=== PATIENT | female | born 1990 | race Caucasian/White ===

== ENCOUNTER 2018-11-03 06:30 | Emergency (ER) | payer SELFPAY ==
[2018-11-03] MEDS ORDERED: DEXAMETHASONE 10 MG/ML VIAL ONE (07:05)
[2018-11-03] MEDS ORDERED: KETOROLAC 30 MG/ML INJ ONE (07:06)
[2018-11-03] MEDS ORDERED: NA CHLORIDE 0.9% 1,000 ML ONE (07:06)
[2018-11-03] MEDS ORDERED: ONDANSETRON 4 MG/2 ML VIAL ONE (07:07)
--- NOTE | 2018-11-03 07:38 | RAD REPORT ---
EXAM DESCRIPTION: CT - Head Brain Wo Cont - 11/03/2018 7:04 am CLINICAL HISTORY: Headache, numbness and weakness, left-sided facial tingling COMPARISON: None. TECHNIQUE: Axial 5 mm thick images of the head were obtained without IV contrast. All CT scans are performed using dose optimization technique as appropriate and may include automated exposure control or mA/KV adjustment according to patient size. FINDINGS: No intracranial hemorrhage, mass, edema or shift of mid-line structures. No acute infarcti on changes seen. No abnormal extra-axial fluid collections. Ventricles are normal. Mastoid air cells and visualized portions of the paranasal sinuses are clear. No acute bony findings. IMPRESSION: Negative non-contrast CT head examination.
--- NOTE | 2018-11-03 08:12 | EDPHYS ---
Physician Documentation [facility] Name: Judith Voss Age: 27 yrs Sex: Female : 1990 Arrival Date: 11/03/2018 Time: 06:32 Bed 7 Private MD: ED Physician Hermilo Manuel HPI: 11/03 06:50 This 27 yrs old Female presents to ER via Ambulatory with complaints of pm1 Headache, L Side Facial Numbness and pain. 06:50 The patient complains of pain to the forehead, left ear and left religious. The patient pm1 describes the headache as aching, constant. Onset: The symptoms/episode began/occurred last night, at 21:20. Associated signs and symptoms: Pertinent positives: nausea, Photophobia Pertinent negatives: vomiting. Severity of symptoms: in the emergency department the pain is actually worse. Headache History: Other similar to prior migraines. The symptoms are alleviated by Darkened room, quiet, the symptoms are aggravated by lights, noise. The patient has experienced similar episodes in the past, multiple times. The patient has not recently seen a physician. Patient with her typical migraine headache. She reports pain to forehead and around left ear. Reports small area of numbness to left religious between area of palpable pain between forehead and left ear. 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 - Social history:: Smoking status: Patient/guardian denies using tobacco, Patient/guardian denies using alcohol, street drugs. - Ebola Screening: : No symptoms or risks identified at this time. ROS: 06:50 Constitutional: Negative for fever, chills, and weight loss, Eyes: Negative for injury, pm1 pain, redness, and discharge, ENT: Negative for injury, pain, and discharge, Neck: Negative for injury, pain, and swelling, Cardiovascular: Negative for chest pain, palpitations, and edema, Respiratory: Negative for shortness of breath, cough, wheezing, and pleuritic chest pain, Abdomen/GI: Negative for abdominal pain, nausea, vomiting, diarrhea, and constipation, Back: Negative for injury and pain, : Negative for injury, bleeding, discharge, and swelling, MS/Extremity: Negative for injury and deformity, Skin: Negative for injury, rash, and discoloration. 06:50 Neuro: Positive for headache, Negative for altered mental status, dizziness, syncope, near syncope, weakness. Exam: 06:50 Constitutional: This is a well developed, well nourished patient who is awake, alert, pm1 and in no acute distress. 06:50 Eyes: Pupils equal round and reactive to light, extra-ocular motions intact. Lids and lashes normal. Conjunctiva and sclera are non-icteric and not injected. Cornea within normal limits. Periorbital areas with no swelling, redness, or edema. ENT: Nares patent. No nasal discharge, no septal abnormalities noted. Tympanic membranes are normal and external auditory canals are clear. Oropharynx with no redness, swelling, or masses, exudates, or evidence of obstruction, uvula midline. Mucous membranes moist. Neck: Trachea midline, no thyromegaly or masses palpated, and no cervical lymphadenopathy. Supple, full range of motion without nuchal rigidity, or vertebral point tenderness. No Meningismus. Chest/axilla: Normal chest wall appearance and motion. Nontender with no deformity. No lesions are appreciated. Cardiovascular: Regular rate and rhythm with a normal S1 and S2. No gallops, murmurs, or rubs. Normal PMI, no JVD. No pulse deficits. Respiratory: Lungs have equal breath sounds bilaterally, clear to auscultation and percussion. No rales, rhonchi or wheezes noted. No increased work of breathing, no retractions or nasal flaring. Abdomen/GI: Soft, non-tender, with normal bowel sounds. No distension or tympany. No guarding or rebound. No evidence of tenderness throughout. Back: No spinal tenderness. No costovertebral tenderness. Full range of motion. Skin: Warm, dry with normal turgor. Normal color with no rashes, no lesions, and no evidence of cellulitis. MS/ Extremity: Pulses equal, no cyanosis. Neurovascular intact. Full, normal range of motion. 06:50 Head/face: Noted is no obvious of injury or deformity except tenderness, that is mild, of the forehead, left religious, and around left ear. 06:50 Neuro: Orientation: is normal, Mentation: is normal, Memory: is normal, Cranial nerves: CN II- XII are normal as tested, Cerebellar function: normal finger to nose testing, heel to alonzo testing is normal, Motor: moves all fours, strength is normal, strength is 5/5 in all extremities, Sensation: is normal, no obvious gross deficits, Gait: is steady, at a normal pace, without difficulty. Vital Signs: 06:45 BP 125 / 90; Pulse 78; Resp 16 S; Temp 97.9(O); Pulse Ox 98% on R/A; Weight 77.56 kg bb (R); Height 5 ft. 2 in. (157.48 cm) (R); Pain 10/10; 08:10 BP 124 / 86; Pulse 77; Resp 18; Pulse Ox 98% on R/A; la1 06:45 Body Mass Index 31.28 (77.56 kg, 157.48 cm) bb MDM: 06:46 Patient medically screened. pm1 06:46 Data reviewed: vital signs. pm1 07:45 Data interpreted: Pulse oximetry: on room air is 98 %. Interpretation: normal. pm1 08:10 Counseling: I had a detailed discussion with the patient and/or guardian regarding: the pm1 historical points, exam findings, and any diagnostic results supporting the discharge/admit diagnosis, radiology results, the need for outpatient follow up, for definitive care, a neurologist, to return to the emergency department if symptoms worsen or persist or if there are any questions or concerns that arise at home. 11/03 06:50 Order name: CT Head Brain wo Cont pm1 11/03 07:38 Order name: CT; Complete Time: 07:45 EDMS 11/03 06:50 Order name: IV Saline Lock; Complete Time: 06:53 pm1 Administered Medications: 07:14 Drug: NS 0.9% 1000 ml Route: IV; Rate: 1000 ml; Site: right antecubital; la1 08:11 Follow up: IV Status: Completed infusion la1 07:15 Drug: TORadol 30 mg Route: IVP; Site: right antecubital; la1 08:11 Follow up: Response: No adverse reaction; Pain is decreased la1 07:15 Drug: Zofran 4 mg Route: IVP; Site: right antecubital; la1 08:11 Follow up: Response: No adverse reaction la1 07:15 Drug: Decadron - Dexamethasone 10 mg Route: IVP; Site: right antecubital; la1 08:12 Follow up: Response: No adverse reaction la1 08:23 Drug: Tylenol #3 (300 mg-30 mg) 1 tablet Route: PO; la1 08:23 Follow up: Response: Medication administered at discharge. la1 Disposition: 11/03/18 08:11 Discharged to Home. Impression: Migraine. - Condition is Stable. - Discharge Instructions: Migraine Headache. - Medication Reconciliation Form, Thank You Letter form. - Follow up: Emergency Department; When: As needed; Reason: Worsening of condition. Follow up: Private Physician; When: 2 - 3 days; Reason: Recheck today's complaints, Continuance of care, Re-evaluation by your physician. - Problem is new. - Symptoms have improved. Signatures: Dispatcher [employer] EDMS Lesa Marcus RN RN bb Walt Chen RN RN la1 Alonso Barron, CRISTOFER SECURITY SITE SUPERVISOR pm1 Crystal Bravo RN RN ea Corrections: (The following items were deleted from the chart) 08:25 08:11 11/03/2018 08:11 Discharged to Home. Impression: Migraine. Condition is Stable. la1 Forms are Medication Reconciliation Form, Thank You Letter, Antibiotic Education, Prescription Opioid Use. Follow up: Emergency Department; When: As needed; Reason: Worsening of condition. Follow up: Private Physician; When: 2 - 3 days; Reason: Recheck today's complaints, Continuance of care, Re-evaluation by your physician. Problem is new. Symptoms have improved. pm1
--- NOTE | 2018-11-03 08:12 | ER ---
Nurse's Notes [facility] Name: Judith Voss Age: 27 yrs Sex: Female : 1990 Arrival Date: 11/03/2018 Time: 06:32 Bed 7 Private MD: Diagnosis: Migraine Presentation: 11/03 06:42 Presenting complaint: Patient states: she started having a migraine last night at approx 2120 she took tylenol but still has the migraine in the frontal area with numbness and tingling to the left side of her face she also feels dizzy like the room is moving pt ambulated with steady gait to bed. Transition of care: patient was not received from another setting of care. Onset of symptoms was November 02, 2018 at 21:20. Risk Assessment: Do you want to hurt yourself or someone else? Patient reports no desire to harm self or others. Initial Sepsis Screen: Does the patient meet any 2 criteria? No. Patient's initial sepsis screen is negative. Does the patient have a suspected source of infection? No. Patient's initial sepsis screen is negative. Care prior to arrival: None. 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 - Social history:: Smoking status: Patient/guardian denies using tobacco, Patient/guardian denies using alcohol, street drugs. - Ebola Screening: : No symptoms or risks identified at this time. Screenin:51 Abuse screen: Denies threats or abuse. Nutritional screening: No deficits noted. ea Tuberculosis screening: No symptoms or risk factors identified. Fall Risk IV access (20 points). Assessment: 06:49 General: Appears uncomfortable, Behavior is calm, cooperative, appropriate for age. ea Pain: Complains of pain in left side of head. Neuro: Level of Consciousness is awake, alert, obeys commands, Oriented to person, place, time, situation. Neuro: Reports dizziness. Cardiovascular: Patient's skin is warm and dry. Respiratory: Airway is patent Respiratory effort is even, unlabored, Respiratory pattern is regular, symmetrical. Derm: Skin is pink, warm \T\ dry. Musculoskeletal: Circulation, motion, and sensation intact. 08:10 Reassessment: Patient appears in no apparent distress at this time. No changes from la1 previously documented assessment. Patient and/or family updated on plan of care and expected duration. Pain level reassessed. Vital Signs: 06:45 BP 125 / 90; Pulse 78; Resp 16 S; Temp 97.9(O); Pulse Ox 98% on R/A; Weight 77.56 kg bb (R); Height 5 ft. 2 in. (157.48 cm) (R); Pain 10/10; 08:10 BP 124 / 86; Pulse 77; Resp 18; Pulse Ox 98% on R/A; la1 06:45 Body Mass Index 31.28 (77.56 kg, 157.48 cm) ED Course: 06:32 Patient arrived in ED. ds1 06:37 Alonso Barron NP is PHCP. pm1 06:37 Hermilo Manuel MD is Attending Physician. pm1 06:43 Triage completed. bb 06:45 Arm band placed on Patient placed in an exam room, on a stretcher, on pulse oximetry. bb 06:49 Inserted saline lock: 22 gauge in right antecubital area, using aseptic technique. ea 06:51 Patient has correct armband on for positive identification. Bed in low position. Call ea light in reach. 07:04 CT completed. Patient tolerated procedure well. Patient moved back from CT. bq 07:14 Walt Chen, RN is Primary Nurse. la1 08:23 No provider procedures requiring assistance completed. IV discontinued, intact, la1 bleeding controlled, No redness/swelling at site. Pressure dressing applied. Administered Medications: 07:14 Drug: NS 0.9% 1000 ml Route: IV; Rate: 1000 ml; Site: right antecubital; la1 08:11 Follow up: IV Status: Completed infusion la1 07:15 Drug: TORadol 30 mg Route: IVP; Site: right antecubital; la1 08:11 Follow up: Response: No adverse reaction; Pain is decreased la1 07:15 Drug: Zofran 4 mg Route: IVP; Site: right antecubital; la1 08:11 Follow up: Response: No adverse reaction la1 07:15 Drug: Decadron - Dexamethasone 10 mg Route: IVP; Site: right antecubital; la1 08:12 Follow up: Response: No adverse reaction la1 08:23 Drug: Tylenol #3 (300 mg-30 mg) 1 tablet Route: PO; la1 08:23 Follow up: Response: Medication administered at discharge. la1 Outcome: 08:11 Discharge ordered by . pm1 08:24 Discharged to home ambulatory. la1 08:24 Condition: stable 08:24 Discharge instructions given to patient, Instructed on discharge instructions, follow up and referral plans. medication usage, Demonstrated understanding of instructions, follow-up care, medications. 08:25 Patient left the ED. la1 Signatures: Diann Moser Demi ds1 Lesa Marcus RN RN bb Walt Chen RN RN la1 Alonso Barron, CRISTOFER COUNTING MACHINE OPERATOR pm1 Crystal Bravo RN RN ea
[2018-11-03] MEDS ORDERED: CODEINE 30MG/APAP 300MG TAB ONE (08:26)
== END 2018-11-03 08:25 | disposition home or self-care (01) ==
LOC: ER 06:30
DX: G43.909 Migraine, unspecified, not intractable, without status migrainosus (principal); F31.9 Bipolar disorder, unspecified; F41.9 Anxiety disorder, unspecified
CPT/HCPCS: 70450; J1100; J2405; J7030

== ENCOUNTER 2018-12-11 03:12 | Emergency (ER) | payer SELFPAY ==
[2018-12-11] MEDS ORDERED: KETOROLAC 30 MG/ML INJ ONE (04:02)
--- NOTE | 2018-12-11 04:29 | ER ---
Nurse's Notes [facility] Name: Judith Voss Age: 28 yrs Sex: Female : 1990 Arrival Date: 12/11/2018 Time: 03:14 Bed 19 Private MD: Diagnosis: Viral syndrome Presentation: 12/11 03:20 Presenting complaint: Patient states: pt states she has flu-like symptoms with a runny bb nose, body aches, headache and sore throat x 2 days she last took tylenol 1000 mg at 0100 but it is not really helping. Transition of care: patient was not received from another setting of care. Onset of symptoms was December 09, 2018. Risk Assessment: Do you want to hurt yourself or someone else? Patient reports no desire to harm self or others. Initial Sepsis Screen: Does the patient meet any 2 criteria? No. Patient's initial sepsis screen is negative. Does the patient have a suspected source of infection? No. Patient's initial sepsis screen is negative. Care prior to arrival: None. 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 - Social history:: Smoking status: Patient/guardian denies using tobacco, Patient/guardian denies using alcohol, street drugs. - Ebola Screening: : No symptoms or risks identified at this time. Screenin:24 Abuse screen: Denies threats or abuse. Denies injuries from another. Nutritional rr5 screening: No deficits noted. Tuberculosis screening: No symptoms or risk factors identified. Fall Risk None identified. Assessment: 03:25 General: Appears in no apparent distress. uncomfortable, Behavior is calm, cooperative, rr5 appropriate for age. Pain: Complains of pain in body Pain does not radiate. Pain currently is 7 out of 10 on a pain scale. Quality of pain is described as aching, Pain began gradually, Is intermittent. Neuro: Level of Consciousness is awake, alert, obeys commands, Oriented to person, place, time, situation, Appropriate for age. Cardiovascular: Capillary refill < 3 seconds Patient's skin is warm and dry. Respiratory: Reports runny nose, flu like symptoms, Airway is patent Respiratory effort is even, unlabored, Respiratory pattern is regular, symmetrical. GI: No signs and/or symptoms were reported involving the gastrointestinal system. : No signs and/or symptoms were reported regarding the genitourinary system. EENT: Throat is pink with gag reflex present, uvula deviated to left side of the tonsil.. Derm: No signs and/or symptoms reported regarding the dermatologic system. Musculoskeletal: Capillary refill < 3 seconds, Range of motion: intact in all extremities. 04:38 Reassessment: Patient appears in no apparent distress at this time. Patient is alert, rr5 oriented x 3, equal unlabored respirations, skin warm/dry/pink. discharge instruction given and explained without complaints made. Patient states feeling better. Patient states symptoms have improved. Vital Signs: 03:23 BP 124 / 89; Pulse 71; Resp 16 S; Temp 98.1(O); Pulse Ox 100% on R/A; Weight 77.11 kg bb (R); Height 5 ft. 2 in. (157.48 cm) (R); Pain 7/10; 04:30 BP 110 / 70; Pulse 65; Resp 17; Pulse Ox 99% ; rr5 03:23 Body Mass Index 31.09 (77.11 kg, 157.48 cm) bb ED Course: 03:14 Patient arrived in ED. es 03:19 Reggie Patton MD is Attending Physician. tw4 03:21 Salo Bolden RN is Primary Nurse. rr5 03:21 Triage completed. bb 03:23 Arm band placed on Patient placed in an exam room, on a stretcher, on pulse oximetry. bb Labs ordered per protocol. flu and strep swab sent to lab. Family accompanied patient. 03:24 Patient has correct armband on for positive identification. Placed in gown. Bed in low rr5 position. Call light in reach. Side rails up X2. Pulse ox on. NIBP on. Warm blanket given. 03:25 Flu and/or RSV swab sent to lab. Strep swab sent to lab. bb Administered Medications: 03:55 Drug: TORadol 60 mg Route: IM; Site: right gluteus; rr5 04:40 Follow up: Response: No adverse reaction rr5 Outcome: 04:27 Discharge ordered by . michael 04:41 Patient left the ED. rr5 Signatures: Mary Mei Brenda RN RN bb Reggie Patton MD MD tw4 Salo Bolden RN RN rr5
--- NOTE | 2018-12-11 04:29 | EDPHYS ---
Physician Documentation [facility] Name: Judith Voss Age: 28 yrs Sex: Female : 1990 Arrival Date: 12/11/2018 Time: 03:14 Bed 19 Private MD: ED Physician Reggie Patton HPI: 12/11 06:36 This 28 yrs old Female presents to ER via Ambulatory with complaints of Flu tw4 Symptoms. 06:36 The patient or guardian reports airway noise, cough, that is intermittent, described as tw4 mild. Onset: The symptoms/episode began/occurred 2 day(s) ago. Modifying factors: The symptoms are alleviated by nothing. the symptoms are aggravated by nothing. Associated signs and symptoms: Pertinent positives: fever, rhinorrhea, sore throat, Pertinent negatives: chest pain, diarrhea, ear ache, vomiting. Severity of symptoms: At their worst the symptoms were moderate in the emergency department the symptoms have improved. The patient has not experienced similar symptoms in the past. 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 - Social history:: Smoking status: Patient/guardian denies using tobacco, Patient/guardian denies using alcohol, street drugs. - Ebola Screening: : No symptoms or risks identified at this time. ROS: 06:36 Abdomen/GI: Negative for abdominal pain, nausea, vomiting, diarrhea, and constipation, tw4 Back: Negative for injury and pain, MS/Extremity: Negative for injury and deformity, Skin: Negative for injury, rash, and discoloration, Neuro: Negative for headache, weakness, numbness, tingling, and seizure. 06:36 Constitutional: Positive for body aches, chills, fatigue, fever, Negative for 06:36 Respiratory: Positive for cough, Negative for dyspnea on exertion, hemoptysis, orthopnea, pleurisy, shortness of breath. Exam: 06:36 Constitutional: This is a well developed, well nourished patient who is awake, alert, tw4 and in no acute distress. Head/Face: Normocephalic, atraumatic. Chest/axilla: Normal chest wall appearance and motion. Nontender with no deformity. No lesions are appreciated. Cardiovascular: Regular rate and rhythm with a normal S1 and S2. No gallops, murmurs, or rubs. Normal PMI, no JVD. No pulse deficits. Respiratory: Lungs have equal breath sounds bilaterally, clear to auscultation and percussion. No rales, rhonchi or wheezes noted. No increased work of breathing, no retractions or nasal flaring. Abdomen/GI: Soft, non-tender, with normal bowel sounds. No distension or tympany. No guarding or rebound. No evidence of tenderness throughout. Back: No spinal tenderness. No costovertebral tenderness. Full range of motion. MS/ Extremity: Pulses equal, no cyanosis. Neurovascular intact. Full, normal range of motion. Neuro: Awake and alert, GCS 15, oriented to person, place, time, and situation. Cranial nerves II-XII grossly intact. Motor strength 5/5 in all extremities. Sensory grossly intact. Cerebellar exam normal. Normal gait. Vital Signs: 03:23 BP 124 / 89; Pulse 71; Resp 16 S; Temp 98.1(O); Pulse Ox 100% on R/A; Weight 77.11 kg bb (R); Height 5 ft. 2 in. (157.48 cm) (R); Pain 7/10; 04:30 BP 110 / 70; Pulse 65; Resp 17; Pulse Ox 99% ; rr5 03:23 Body Mass Index 31.09 (77.11 kg, 157.48 cm) bb MDM: 03:21 Patient medically screened. tw4 06:36 Differential diagnosis: obstructed airway, tracheal injury, bronchitis, flu. Antibiotic tw4 administration: Not indicated. Data reviewed: vital signs, nurses notes. Data interpreted: cardiac monitor:. Counseling: I had a detailed discussion with the patient and/or guardian regarding: lab results. Special discussion: I discussed with the patient/guardian in detail that at this point there is no indication for admission to the hospital. It is understood, however, that if the symptoms persist or worsen the patient needs to return immediately for re-evaluation. 12/11 03:21 Order name: Flu tw 12/11 03:21 Order name: Strep tw 12/11 03:21 Order name: Influenza Screen (A EDAZ 12/11 03:21 Order name: Group A Streptococcus Rapid Sc EDAZ 12/11 04:09 Order name: Throat Culture EDMS Administered Medications: 03:55 Drug: TORadol 60 mg Route: IM; Site: right gluteus; rr5 04:40 Follow up: Response: No adverse reaction rr5 Disposition: 12/11/18 04:27 Discharged to Home. Impression: Viral syndrome. - Condition is Stable. - Medication Reconciliation Form, Thank You Letter, Antibiotic Education, Prescription Opioid Use form. - Follow up: Private Physician; When: Upon discharge from the Emergency Department; Reason: If symptoms return, Recheck today's complaints, Continuance of care. - Problem is new. - Symptoms have improved. Signatures: Dispatcher [employer] Lesa Fuller RN RN Reggie Cochran MD MD tw4 Salo Bolden RN RN rr5 Corrections: (The following items were deleted from the chart) 04:41 04:27 12/11/2018 04:27 Discharged to Home. Impression: Viral syndrome. Condition is rr5 Stable. Forms are Medication Reconciliation Form, Thank You Letter, Antibiotic Education, Prescription Opioid Use. Follow up: Private Physician; When: Upon discharge from the Emergency Department; Reason: If symptoms return, Recheck today's complaints, Continuance of care. Problem is new. Symptoms have improved. tw4
== END 2018-12-11 04:41 | disposition home or self-care (01) ==
LOC: ER 03:12
DX: B34.9 Viral infection, unspecified (principal); R05 Cough; F41.9 Anxiety disorder, unspecified; F31.9 Bipolar disorder, unspecified
CPT/HCPCS: 87070; 87081; 87804; 96372; 99283

== ENCOUNTER 2019-02-11 21:33 | Emergency (ER) | payer SELFPAY ==
--- NOTE | 2019-02-12 00:07 | ER ---
Nurse's Notes [facility] Name: Judith Voss Age: 28 yrs Sex: Female : 1990 Arrival Date: 02/11/2019 Time: 21:36 Bed 12 Private MD: Diagnosis: Sprain of other ligament of right ankle Presentation: 02/11 21:46 Presenting complaint: Patient states: tripped getting out of car and twisted right tl2 ankle, no swelling noted at this time, pt is able to bear weight. Transition of care: patient was not received from another setting of care. Onset of symptoms was February 11, 2019 at 21:30. Risk Assessment: Do you want to hurt yourself or someone else? Patient reports no desire to harm self or others. Initial Sepsis Screen: Does the patient meet any 2 criteria? No. Patient's initial sepsis screen is negative. Does the patient have a suspected source of infection? No. Patient's initial sepsis screen is negative. Care prior to arrival: None. 21:46 Method Of Arrival: Ambulatory tl2 21:46 Acuity: SHABBIR 4 tl2 Triage Assessment: 21:48 General: Appears in no apparent distress. comfortable, Behavior is calm, cooperative, tl2 appropriate for age. Pain: Complains of pain in right ankle. 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 - Social history:: Smoking status: Patient/guardian denies using tobacco. - Ebola Screening: : No symptoms or risks identified at this time. Screenin:00 Abuse screen: Denies threats or abuse. Nutritional screening: No deficits noted. tl2 Tuberculosis screening: No symptoms or risk factors identified. Fall Risk None identified. Assessment: 22:00 General: Appears in no apparent distress. comfortable, Behavior is calm, cooperative, tl2 appropriate for age. Pain: Complains of pain in right ankle. Neuro: Level of Consciousness is awake, alert, obeys commands, Oriented to person, place, time, situation. Respiratory: Airway is patent Respiratory effort is even, unlabored, Respiratory pattern is regular, symmetrical. GI: No signs and/or symptoms were reported involving the gastrointestinal system. Derm: Skin is pink, warm \T\ dry. Musculoskeletal: Circulation, motion, and sensation intact. Range of motion: intact in all extremities, Swelling absent pt is ambulatory and able to bear weight. 23:27 Reassessment: Patient appears in no apparent distress at this time. Patient and/or tl2 family updated on plan of care and expected duration. Pain level reassessed. Patient is alert, oriented x 3, equal unlabored respirations, skin warm/dry/pink. awaiting xray results and dispo. 02/12 00:23 Reassessment: Patient appears in no apparent distress at this time. Patient and/or tl2 family updated on plan of care and expected duration. Pain level reassessed. Patient is alert, oriented x 3, equal unlabored respirations, skin warm/dry/pink. pt verbalized understanding of discharge instructions, need for follow up, aircast usage and prescriptions. Vital Signs: 02/11 21:48 BP 114 / 80; Pulse 86; Resp 18; Temp 97.9(O); Pulse Ox 98% on R/A; Weight 78.02 kg; tl2 Height 5 ft. 2 in. (157.48 cm); Pain 8/10; 02/12 00:23 Pulse 87; Resp 18; Pulse Ox 99% on R/A; tl2 02/11 21:48 Body Mass Index 31.46 (78.02 kg, 157.48 cm) tl2 ED Course: 02/11 21:36 Patient arrived in ED. es 21:47 Triage completed. tl2 21:48 Arm band placed on right wrist. tl2 22:00 Patient has correct armband on for positive identification. Bed in low position. Call tl2 light in reach. Side rails up X 1. 22:00 No provider procedures requiring assistance completed. Patient did not have IV access tl2 during this emergency room visit. 22:25 Reggie Patton MD is Attending Physician. tw4 23:02 Ankle Right 3 View XRAY In Process Unspecified. EDMS 23:25 Isidro, Sandie, RN is Primary Nurse. tl2 02/12 00:23 aircast ankle splint right ankle. tl2 Administered Medications: 00:23 Drug: TORadol 60 mg Route: IM; Site: right deltoid; tl2 00:25 Follow up: Response: No adverse reaction; Medication administered at discharge. tl2 Outcome: 00:05 Discharge ordered by . tw4 00:23 Discharged to home ambulatory. tl2 00:23 Condition: stable 00:23 Discharge instructions given to patient, Instructed on discharge instructions, follow up and referral plans. medication usage, Demonstrated understanding of instructions, follow-up care, medications, splint care, Prescriptions given X 1. 00:25 Patient left the ED. tl2 Signatures: Dispatcher [employer] EDMary Archer Taylor, RN RN tl2 Reggie Patton MD MD tw4 Corrections: (The following items were deleted from the chart) 02/11 21:54 21:48 BP 114 / 80; Pulse 86bpm; Resp 86bpm; Pulse Ox 98% RA; Temp 97.9F Oral; 78.02 kg; tl2 Height 5 ft. 2 in.; BMI: 31.4; Pain 8/10; tl2
--- NOTE | 2019-02-12 00:07 | EDPHYS ---
Physician Documentation [facility] Name: Judith Voss Age: 28 yrs Sex: Female : 1990 Arrival Date: 02/11/2019 Time: 21:36 Bed 12 Private MD: ED Physician Reggie Patton HPI: 02/12 06:12 This 28 yrs old Female presents to ER via Ambulatory with complaints of Fall tw4 Injury, Ankle Injury, Arm Injury. 06:12 Details of fall: The patient fell from an upright position, while walking. Onset: The tw4 symptoms/episode began/occurred today. Associated injuries: The patient sustained right ankle. Severity of symptoms: At their worst the symptoms were mild, in the emergency department the symptoms are unchanged. The patient has not experienced similar symptoms in the past. 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 - Social history:: Smoking status: Patient/guardian denies using tobacco. - Ebola Screening: : No symptoms or risks identified at this time. ROS: 02/12 06:12 Constitutional: Negative for fever, chills, and weight loss, Eyes: Negative for injury, tw4 pain, redness, and discharge, Cardiovascular: Negative for chest pain, palpitations, and edema, Respiratory: Negative for shortness of breath, cough, wheezing, and pleuritic chest pain, Abdomen/GI: Negative for abdominal pain, nausea, vomiting, diarrhea, and constipation. MS/extremity: Positive for injury or acute deformity, decreased range of motion, pain, Negative for abrasion, bite, contusion, ecchymosis, erythema, puncture, swelling, tenderness. Exam: 06:12 Constitutional: This is a well developed, well nourished patient who is awake, alert, tw4 and in no acute distress. Head/Face: Normocephalic, atraumatic. Chest/axilla: Normal chest wall appearance and motion. Nontender with no deformity. No lesions are appreciated. Cardiovascular: Regular rate and rhythm with a normal S1 and S2. No gallops, murmurs, or rubs. Normal PMI, no JVD. No pulse deficits. Respiratory: Lungs have equal breath sounds bilaterally, clear to auscultation and percussion. No rales, rhonchi or wheezes noted. No increased work of breathing, no retractions or nasal flaring. Abdomen/GI: Soft, non-tender, with normal bowel sounds. No distension or tympany. No guarding or rebound. No evidence of tenderness throughout. Skin: Warm, dry with normal turgor. Normal color with no rashes, no lesions, and no evidence of cellulitis. 06:12 Musculoskeletal/extremity: Extremities: noted in the right ankle: pain. Vital Signs: 02/11 21:48 BP 114 / 80; Pulse 86; Resp 18; Temp 97.9(O); Pulse Ox 98% on R/A; Weight 78.02 kg; tl2 Height 5 ft. 2 in. (157.48 cm); Pain 8/10; 02/12 00:23 Pulse 87; Resp 18; Pulse Ox 99% on R/A; tl2 02/11 21:48 Body Mass Index 31.46 (78.02 kg, 157.48 cm) tl2 MDM: 02/11 22:25 Patient medically screened. tw4 02/12 06:12 Differential diagnosis: abrasion, sprain. Data reviewed: vital signs, nurses notes. tw4 Counseling: I had a detailed discussion with the patient and/or guardian regarding: the historical points, exam findings, and any diagnostic results supporting the discharge/admit diagnosis, radiology results. Medication response: Toradol relieved patient's pain. The symptoms have resolved. Response to treatment: There is no appreciated change of the patient's symptoms at this time. Special discussion: I discussed with the patient/guardian in detail that at this point there is no indication for admission to the hospital. It is understood, however, that if the symptoms persist or worsen the patient needs to return immediately for re-evaluation. 02/11 22:20 Order name: Ankle Right 3 View XRAY tl2 02/12 00:23 Order name: Aircast Ankle Splint; Complete Time: 00:23 tl2 Administered Medications: 00:23 Drug: TORadol 60 mg Route: IM; Site: right deltoid; tl2 00:25 Follow up: Response: No adverse reaction; Medication administered at discharge. tl2 Disposition: 02/12/19 00:05 Discharged to Home. Impression: Sprain of other ligament of right ankle. - Condition is Stable. - Prescriptions for Ibuprofen 800 mg Oral Tablet - take 1 tablet by ORAL route every 8 hours As needed take with food; 30 tablet. - Medication Reconciliation Form, Thank You Letter, Antibiotic Education, Prescription Opioid Use form. - Follow up: Private Physician; When: Upon discharge from the Emergency Department; Reason: If symptoms return, Recheck today's complaints, Continuance of care. - Problem is new. - Symptoms have improved. Signatures: Dispatcher [employer] EDSandie Paige RN RN tl2 Reggie Patton MD MD tw4 Corrections: (The following items were deleted from the chart) 00:25 00:05 02/12/2019 00:05 Discharged to Home. Impression: Sprain of other ligament of tl2 right ankle. Condition is Stable. Forms are Medication Reconciliation Form, Thank You Letter, Antibiotic Education, Prescription Opioid Use. Follow up: Private Physician; When: Upon discharge from the Emergency Department; Reason: If symptoms return, Recheck today's complaints, Continuance of care. Problem is new. Symptoms have improved. tw4
[2019-02-12] MEDS ORDERED: KETOROLAC 30 MG/ML INJ ONE (00:30)
--- NOTE | 2019-02-12 08:19 | RAD REPORT ---
EXAM DESCRIPTION: RAD - Ankle Right 3 View - 02/11/2019 11:01 pm CLINICAL HISTORY: Right ankle pain, twisting injury COMPARISON: None. FINDINGS: No fracture, dislocation or periosteal reaction. No joint effusion seen. No joint space na rrowing. Mild lateral soft tissue swelling present. IMPRESSION: Mild right ankle soft tissue swelling without fracture.
== END 2019-02-12 00:25 | disposition home or self-care (01) ==
LOC: ER 21:33
DX: S93.491A Sprain of other ligament of right ankle, initial encounter (principal); W19.XXXA Unspecified fall, initial encounter; Y93.01 Activity, walking, marching and hiking; Y92.9 Unspecified place or not applicable; F31.9 Bipolar disorder, unspecified; F41.9 Anxiety disorder, unspecified; G47.00 Insomnia, unspecified
CPT/HCPCS: 96372; 99284

== ENCOUNTER 2019-02-18 17:52 | Emergency (ER) | payer SELFPAY ==
--- NOTE | 2019-02-18 20:48 | EDPHYS ---
Physician Documentation [facility] Name: Judith Voss Age: 28 yrs Sex: Female : 1990 Arrival Date: 02/18/2019 Time: 17:53 Bed 6 Private MD: ED Physician Adan Sun HPI: 02/18 19:49 This 28 yrs old Female presents to ER via Ambulatory with complaints of jr8 Cough, Vomiting, Congestion. 19:49 The patient or guardian reports cough, that is intermittent, described as moderate, jr8 with productive sputum, that is white. Onset: The symptoms/episode began/occurred acutely, yesterday. Severity of symptoms: At their worst the symptoms were mild, in the emergency department the symptoms are unchanged. Modifying factors: The symptoms are alleviated by nothing, the symptoms are aggravated by nothing. Associated signs and symptoms: Pertinent positives: fever. The patient has not experienced similar symptoms in the past. The patient has not recently seen a physician. 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 - Social history:: Smoking status: Patient/guardian denies using tobacco. - Ebola Screening: : Patient negative for fever greater than or equal to 101.5 degrees Fahrenheit, and additional compatible Ebola Virus Disease symptoms Patient denies exposure to infectious person Patient denies travel to an Ebola-affected area in the 21 days before illness onset No symptoms or risks identified at this time. ROS: 19:49 Constitutional: Positive for fever, Negative for body aches, chills, fatigue, malaise, jr8 poor PO intake, weight loss. 19:49 Respiratory: Positive for cough, with clear sputum. 19:49 Abdomen/GI: Positive for vomiting, Negative for abdominal pain, nausea, diarrhea, abdominal cramps, abdominal distension. 19:49 All other systems are negative. Exam: 19:49 Constitutional: This is a well developed, well nourished patient who is awake, alert, jr8 and in no acute distress. Eyes: Pupils equal round and reactive to light, extra-ocular motions intact. Lids and lashes normal. Conjunctiva and sclera are non-icteric and not injected. Cornea within normal limits. Periorbital areas with no swelling, redness, or edema. ENT: Nares patent. No nasal discharge, no septal abnormalities noted. Tympanic membranes are normal and external auditory canals are clear. Oropharynx with no redness, swelling, or masses, exudates, or evidence of obstruction, uvula midline. Mucous membranes moist. Neck: Trachea midline, no thyromegaly or masses palpated, and no cervical lymphadenopathy. Supple, full range of motion without nuchal rigidity, or vertebral point tenderness. No Meningismus. Cardiovascular: Regular rate and rhythm with a normal S1 and S2. No gallops, murmurs, or rubs. Normal PMI, no JVD. No pulse deficits. Respiratory: Lungs have equal breath sounds bilaterally, clear to auscultation and percussion. No rales, rhonchi or wheezes noted. No increased work of breathing, no retractions or nasal flaring. Abdomen/GI: Soft, non-tender, with normal bowel sounds. No distension or tympany. No guarding or rebound. No evidence of tenderness throughout. Back: No spinal tenderness. No costovertebral tenderness. Full range of motion. Skin: Warm, dry with normal turgor. Normal color with no rashes, no lesions, and no evidence of cellulitis. MS/ Extremity: Pulses equal, no cyanosis. Neurovascular intact. Full, normal range of motion. Neuro: Awake and alert, GCS 15, oriented to person, place, time, and situation. Cranial nerves II-XII grossly intact. Motor strength 5/5 in all extremities. Sensory grossly intact. Cerebellar exam normal. Normal gait. Vital Signs: 18:03 BP 97 / 68; Pulse 90; Resp 16; Temp 98.7(O); Pulse Ox 98% on R/A; Weight 78.02 kg; aj Height 5 ft. 2 in. (157.48 cm); 20:44 BP 101 / 77; Pulse 79; Resp 17 S; Pulse Ox 99% on R/A; jd3 18:03 Body Mass Index 31.46 (78.02 kg, 157.48 cm) carlo MDM: 18:51 Patient medically screened. 8 20:46 Data reviewed: vital signs, nurses notes, lab test result(s), Flu: negative and as a jr8 result, I will discharge patient. Data interpreted: Pulse oximetry: on room air is 99 %. Interpretation: normal. Counseling: I had a detailed discussion with the patient and/or guardian regarding: the historical points, exam findings, and any diagnostic results supporting the discharge/admit diagnosis, lab results, the need for outpatient follow up, a family practitioner, to return to the emergency department if symptoms worsen or persist or if there are any questions or concerns that arise at home. 02/18 19:09 Order name: Strep; Complete Time: 20:46 02/18 19:09 Order name: Influenza Screen (a \T\ B); Complete Time: 20:46 02/18 20:28 Order name: Throat Culture EDMS Administered Medications: No medications were administered Disposition: 02/18/19 20:47 Discharged to Home. Impression: Acute upper respiratory infection, unspecified. - Condition is Stable. - Discharge Instructions: Upper Respiratory Infection, Adult. - Prescriptions for Prednisone 20 mg Oral Tablet - take 1 tablet by ORAL route once daily for 5 days; 5 tablet. Tessalon Perles 100 mg Oral Capsule - take 1 capsule by ORAL route every 8 hours As needed; 15 capsule. Guaifenesin AC 10- 100 mg/5 mL Oral Liquid - take 10 milliliter by ORAL route every 4 hours As needed; 240 milliliter. - Medication Reconciliation Form, Thank You Letter, Antibiotic Education, Prescription Opioid Use, Work release form form. - Follow up: Private Physician; When: 5 - 6 days; Reason: Recheck today's complaints, Continuance of care, Re-evaluation by your physician. - Problem is new. - Symptoms have improved. Addendum: 02/20/2019 02:07 Co-signature as Attending Physician, Adan Sun MD. g s Signatures: Dispatcher [employer] EDAshly Cloud, RN RN Joby Escobar PA PA jr8 Crystal Bravo RN RN ea Starr, Gregory, MD MD gs Corrections: (The following items were deleted from the chart) 02/18 20:56 20:47 02/18/2019 20:47 Discharged to Home. Impression: Acute upper respiratory ea infection, unspecified. Condition is Stable. Forms are Medication Reconciliation Form, Thank You Letter, Antibiotic Education, Prescription Opioid Use. Follow up: Private Physician; When: 5 - 6 days; Reason: Recheck today's complaints, Continuance of care, Re-evaluation by your physician. Problem is new. Symptoms have improved. jr8
--- NOTE | 2019-02-18 20:48 | ER ---
Nurse's Notes [facility] Name: Judith Voss Age: 28 yrs Sex: Female : 1990 Arrival Date: 02/18/2019 Time: 17:53 Bed 6 Private MD: Diagnosis: Acute upper respiratory infection, unspecified Presentation: 02/18 18:02 Presenting complaint: Patient states: Cough with fever that started last night. 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 Transition of care: patient was not received from another setting of care. Onset of symptoms was February 17, 2019. Risk Assessment: Do you want to hurt yourself or someone else? Patient reports no desire to harm self or others. Initial Sepsis Screen: Does the patient meet any 2 criteria? No. Patient's initial sepsis screen is negative. Does the patient have a suspected source of infection? No. Patient's initial sepsis screen is negative. Care prior to arrival: None. 18:02 Method Of Arrival: Ambulatory aj 18:02 Acuity: SHABBIR 4 aj Triage Assessment: 18:03 General: Appears in no apparent distress. comfortable, Behavior is calm, cooperative, aj appropriate for age. Pain: Denies pain. Neuro: Level of Consciousness is awake, alert, obeys commands, Oriented to person, place, time, situation, Appropriate for age. Respiratory: Reports cough that is Airway is patent Respiratory effort is even, unlabored, Respiratory pattern is regular, symmetrical. GI: Reports vomiting. Derm: Skin is intact, is healthy with good turgor, Skin is pink, warm \T\ dry. normal. 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 - Social history:: Smoking status: Patient/guardian denies using tobacco. - Ebola Screening: : Patient negative for fever greater than or equal to 101.5 degrees Fahrenheit, and additional compatible Ebola Virus Disease symptoms Patient denies exposure to infectious person Patient denies travel to an Ebola-affected area in the 21 days before illness onset No symptoms or risks identified at this time. Screenin:37 Abuse screen: Denies threats or abuse. Denies injuries from another. Nutritional aj1 screening: No deficits noted. Tuberculosis screening: No symptoms or risk factors identified. 20:44 Fall Risk Ambulatory Aid- None/Bed Rest/Nurse Assist (0 pts). Gait- Normal/Bed jd3 Rest/Wheelchair (0 pts) Mental Status- Oriented to own ability (0 pts). Total White Fall Scale indicates No Risk (0-24 pts). Assessment: 18:37 General: Appears in no apparent distress. comfortable, Behavior is calm, cooperative, aj1 appropriate for age. Pain: Complains of pain in forehead, left aspect of posterior pharynx and right aspect of posterior pharynx. Neuro: Level of Consciousness is awake, alert, obeys commands, Oriented to person, place, time, situation. Cardiovascular: Patient's skin is warm and dry. Respiratory: Airway is patent Respiratory effort is even, unlabored, Respiratory pattern is regular, symmetrical. Respiratory: Reports cough that is hacking, persistent. GI: Reports nausea, vomiting. GI: Abdomen is flat, non-distended, Bowel sounds present X 4 quads. Abd is soft and non tender X 4 quads. : No signs and/or symptoms were reported regarding the genitourinary system. EENT: No signs and/or symptoms were reported regarding the EENT system. Derm: No signs and/or symptoms reported regarding the dermatologic system. Skin is pink, warm \T\ dry. normal. Musculoskeletal: No signs and/or symptoms reported regarding the musculoskeletal system. Circulation, motion, and sensation intact. 19:45 Reassessment: Patient appears in no apparent distress at this time. No changes from jd3 previously documented assessment. Patient and/or family updated on plan of care and expected duration. Pain level reassessed. Patient is alert, oriented x 3, equal unlabored respirations, skin warm/dry/pink. 20:45 Reassessment: Patient appears in no apparent distress at this time. No changes from jd3 previously documented assessment. Patient and/or family updated on plan of care and expected duration. Pain level reassessed. Patient is alert, oriented x 3, equal unlabored respirations, skin warm/dry/pink. 20:55 Reassessment: Patient and/or family updated on plan of care and expected duration. Pain ea level reassessed. Patient is alert, oriented x 3, equal unlabored respirations, skin warm/dry/pink. Discharge instruction given to patient, verbalized the understanding of instruction. Vital Signs: 18:03 BP 97 / 68; Pulse 90; Resp 16; Temp 98.7(O); Pulse Ox 98% on R/A; Weight 78.02 kg; aj Height 5 ft. 2 in. (157.48 cm); 20:44 BP 101 / 77; Pulse 79; Resp 17 S; Pulse Ox 99% on R/A; jd3 18:03 Body Mass Index 31.46 (78.02 kg, 157.48 cm) ED Course: 17:53 Patient arrived in ED. as 18:03 Triage completed. aj 18:03 Arm band placed on right wrist. aj 18:37 Betty Cardona RN is Primary Nurse. aj1 18:37 Joby Gates PA is PHCP. jr8 18:37 Adan Sun MD is Attending Physician. 8 18:37 Patient has correct armband on for positive identification. Bed in low position. Call aj1 light in reach. Side rails up X 1. 18:37 No provider procedures requiring assistance completed. aj1 19:50 Flu and/or RSV swab sent to lab. Strep swab sent to lab. ag4 20:56 Patient did not have IV access during this emergency room visit. ea Administered Medications: No medications were administered Outcome: 20:47 Discharge ordered by . [facility] 20:56 Discharged to home ambulatory. ea 20:56 Condition: good 20:56 Discharge instructions given to patient, Instructed on discharge instructions, follow up and referral plans. medication usage, Demonstrated understanding of instructions, follow-up care, medications, Prescriptions given X 3. 20:56 Patient left the ED. ea Signatures: Betty Cardona, RN RN ajAshly Zavala RN RN aj Martinez, Amelia as Roszak, Josh, PA PA jr8 Crystal Bravo RN RN ea Davies, Jonathon, RN RN jd3 Guzman, Adan ag4 Corrections: (The following items were deleted from the chart) 20:45 19:45 Reassessment: Patient appears in no apparent distress at this time. Patient jd3 and/or family updated on plan of care and expected duration. Pain level reassessed. Patient is alert, oriented x 3, equal unlabored respirations, skin warm/dry/pink. jd3
== END 2019-02-18 20:56 | disposition home or self-care (01) ==
LOC: ER 17:52
DX: J06.9 Acute upper respiratory infection, unspecified (principal); F41.9 Anxiety disorder, unspecified; F31.9 Bipolar disorder, unspecified
CPT/HCPCS: 87070; 87081; 87804; 99283

== ENCOUNTER 2019-02-22 15:22 | Emergency (ER) | payer SELFPAY ==
[2019-02-22] MEDS ORDERED: CYCLOBENZAPRINE 10 MG TAB ONE (16:09)
[2019-02-22] MEDS ORDERED: ACETAMINOPHEN 500 MG TAB ONE (16:09)
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
[2019-02-22 16:33] LABS: Urine Blood NEGATIVE (NEG); Urine Glucose NEGATIVE (NEG); Urine Protein NEGATIVE (NEG); Urine Specific Gravity 1.015 (1.005-1.030)
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
== END 2019-02-22 17:12 | disposition home or self-care (01) ==
LOC: ER 15:22
DX: S16.1XXA Strain of muscle, fascia and tendon at neck level, initial encounter (principal); V43.52XA Car driver injured in collision with other type car in traffic accident, initial encounter; F41.9 Anxiety disorder, unspecified; F31.9 Bipolar disorder, unspecified
CPT/HCPCS: 70450; 72125; 81003; 81025; 99284

== ENCOUNTER 2019-04-30 08:06 | Emergency (ER) | payer SELFPAY ==
[2019-04-30] MEDS ORDERED: KETOROLAC 30 MG/ML INJ ONE (09:46)
[2019-04-30] MEDS ORDERED: ONDANSETRON 4 MG/2 ML VIAL ONE (09:46)
[2019-04-30 09:47] LABS: Absolute Lymphocytes (CBC) 1.9 K/uL (0.7-4.9); Basophils % 0.5 % (0-1.3); Eosinophils % 1.5 % (0-4.4); Hematocrit 37.3 % (36.0-45.0); Lymphocytes % 36.9 % (15.3-44.8); MPV 8.8 fL (7.6-11.3); RBC Red Blood Cell Count 4.51 M/uL (3.86-4.86)
[2019-04-30 10:05] LABS: ALT/SGPT 38 U/L (12-78); AST/SGOT 14 U/L (15-37); Albumin 4.1 g/dL (3.4-5.0); Alkaline Phosphatase 78 U/L (45-117); BUN Blood Urea Nitrogen 8 mg/dL (7-18); Bicarbonate 25 mmol/L (21-32); Bilirubin Direct < 0.1 mg/dL (0-0.2); Bilirubin Total 0.3 mg/dL (0.2-1.0); Glucose Level 88 mg/dL (74-106); Lipase 112 U/L (73-393); Potassium 3.8 mmol/L (3.5-5.1); Protein, Total 7.8 g/dL (6.4-8.2); Sodium Level 141 mmol/L (136-145)
--- NOTE | 2019-04-30 10:18 | ER ---
Nurse's Notes [facility] Name: Judith Alan Age: 28 yrs Sex: Female : 1990 Arrival Date: 04/30/2019 Time: 08:10 Bed 18 Private MD: Diagnosis: Migraine Presentation: 04/30 08:27 Presenting complaint: Patient states: vomiting X 1 week, unable to hold bipolar iw medicine down, c/o pain all over, migraine. Transition of care: patient was not received from another setting of care. Onset of symptoms was April 23, 2019. Risk Assessment: Do you want to hurt yourself or someone else? Patient reports no desire to harm self or others. Initial Sepsis Screen: Does the patient meet any 2 criteria? No. Patient's initial sepsis screen is negative. Does the patient have a suspected source of infection? No. Patient's initial sepsis screen is negative. Care prior to arrival: None. 08:27 Method Of Arrival: Ambulatory iw 08:27 Acuity: SHABBIR 3 iw Triage Assessment: 09:09 Headache History: The patient has had previous headaches and this one is similar to tw2 previous episodes, and this one is less severe than previous episodes. General: Appears in no apparent distress. Behavior is calm, cooperative, appropriate for age. Pain: Complains of pain in headache Pain currently is 7 out of 10 on a pain scale. Pain began 2-3 days ago. Also complains of nausea. EENT: No signs and/or symptoms were reported regarding the EENT system. Neuro: Level of Consciousness is awake, alert, obeys commands, Oriented to person, place, time, situation. Cardiovascular: Heart tones S1 S2 Patient's skin is warm and dry. Respiratory: Airway is patent Respiratory effort is even, unlabored, Respiratory pattern is regular, symmetrical, Breath sounds are clear bilaterally. GI: Abdomen is flat, Bowel sounds present X 4 quads. Reports intolerance of fluids, intolerance of food, nausea. : No signs and/or symptoms were reported regarding the genitourinary system. Derm: No signs and/or symptoms reported regarding the dermatologic system. Musculoskeletal: Range of motion: intact in all extremities. 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 - Social history:: Smoking status: Patient/guardian denies using tobacco. - Ebola Screening: : Patient negative for fever greater than or equal to 101.5 degrees Fahrenheit, and additional compatible Ebola Virus Disease symptoms Patient denies exposure to infectious person Patient denies travel to an Ebola-affected area in the 21 days before illness onset No symptoms or risks identified at this time. Screenin:57 Abuse screen: Denies threats or abuse. Nutritional screening: No deficits noted. tw2 Tuberculosis screening: No symptoms or risk factors identified. Fall Risk None identified. Assessment: 09:10 Reassessment: see triage assessment. tw2 10:12 Reassessment: Patient appears in no apparent distress at this time. Patient and/or tw2 family updated on plan of care and expected duration. Pain level reassessed. Patient is alert, oriented x 3, equal unlabored respirations, skin warm/dry/pink. Patient states feeling better. Vital Signs: 08:30 BP 114 / 71; Pulse 92; Resp 16; Temp 98.9; Pulse Ox 100% on R/A; Weight 74.84 kg; iw Height 5 ft. 2 in. (157.48 cm); Pain 7/10; 10:12 BP 102 / 74; Pulse 77; Resp 17; Pulse Ox 100% on R/A; tw2 08:30 Body Mass Index 30.18 (74.84 kg, 157.48 cm) iw ED Course: 08:10 Patient arrived in ED. as 08:29 Triage completed. iw 08:30 Arm band placed on. iw 08:57 Krys Hughes, LINA is Primary Nurse. tw2 08:58 Bed in low position. Call light in reach. tw2 09:07 Joby Gates PA is PHCP. jr8 09:07 Stu Peace MD is Attending Physician. jr8 11:06 IV discontinued, intact, bleeding controlled, No redness/swelling at site. Pressure aj dressing applied, 22 to right AC. 11:07 No provider procedures requiring assistance completed. tw2 Administered Medications: 09:35 Drug: Zofran 4 mg Route: IVP; Site: right antecubital; tw2 10:35 Follow up: Response: No adverse reaction; Nausea is decreased tw2 09:37 Drug: TORadol - Ketorolac 15 mg Route: IVP; Site: right antecubital; tw2 10:35 Follow up: Response: No adverse reaction; Pain is decreased tw2 10:42 Drug: Reglan 10 mg Route: IVP; Site: right antecubital; tw2 11:07 Follow up: Response: Marked relief of symptoms aj 10:44 Drug: Benadryl 25 mg Route: IVP; Site: right antecubital; tw2 11:07 Follow up: Response: Marked relief of symptoms aj Outcome: 10:17 Discharge ordered by MD. padilla 11:06 Discharged to home ambulatory, with family. aj 11:06 Condition: good 11:06 Discharge instructions given to patient, family, Instructed on discharge instructions, follow up and referral plans. Demonstrated understanding of instructions, follow-up care. 11:08 Patient left the ED. aj Signatures: Ashly Ybarra RN RN aj Martinez, Amelia as Williams, Irene, Joby Dickerson RN, PA PA jr8 Krys Hughes RN RN tw2
--- NOTE | 2019-04-30 10:18 | EDPHYS ---
Physician Documentation [facility] Name: Judith Alan Age: 28 yrs Sex: Female : 1990 Arrival Date: 04/30/2019 Time: 08:10 Bed 18 Private MD: ED Physician Stu Peace HPI: 04/30 09:17 This 28 yrs old Female presents to ER via Ambulatory with complaints of jr8 Headache, Nausea/vomiting. 09:17 The patient presents to the emergency department with nausea, vomiting, that is jr8 intermittent, 3 times today, diarrhea, that is intermittent. Onset: The symptoms/episode began/occurred acutely, 1 week(s) ago. Possible causes: unknown. The symptoms are aggravated by food , The symptoms are alleviated by nothing. Associated signs and symptoms: Pertinent positives: headache, Pertinent negatives: abdominal pain, dysuria, fever, hematuria, vaginal discharge. Severity of symptoms: At their worst the symptoms were mild in the emergency department the symptoms are unchanged. The patient has not experienced similar symptoms in the past. The patient has not recently seen a physician. reports nausea and vomiting with intermittent diarrhea for the past week. generalized headache onset this morning.. TOUR AGENT: 08:30 LMP 03/15/2019 iw Historical: - Allergies: 08:29 No Known Allergies; iw - Home Meds: 08:29 Celexa Oral [Active]; Trazodone Oral [Active]; Abilify Oral [Active]; Neurontin Oral iw [Active]; 09:10 Celexa Oral [Active]; tw2 - PMHx: 08:29 Anxiety; Bipolar disorder; insommnia; iw - PSHx: 08:29 Tubal ligation; iw - Immunization history:: Adult Immunizations not up to date. - Social history:: Smoking status: Patient/guardian denies using tobacco. - Ebola Screening: : Patient negative for fever greater than or equal to 101.5 degrees Fahrenheit, and additional compatible Ebola Virus Disease symptoms Patient denies exposure to infectious person Patient denies travel to an Ebola-affected area in the 21 days before illness onset No symptoms or risks identified at this time. ROS: 09:17 Constitutional: Negative for fever, chills, and weight loss, Eyes: Negative for injury, jr8 pain, redness, and discharge, ENT: Negative for injury, pain, and discharge, Neck: Negative for injury, pain, and swelling, Cardiovascular: Negative for chest pain, palpitations, and edema, Respiratory: Negative for shortness of breath, cough, wheezing, and pleuritic chest pain, Back: Negative for injury and pain, : Negative for injury, bleeding, discharge, and swelling, MS/Extremity: Negative for injury and deformity, Skin: Negative for injury, rash, and discoloration. 09:17 Abdomen/GI: Positive for nausea, vomiting, and diarrhea, Negative for abdominal pain, constipation, black/tarry stool, rectal pain, rectal bleeding. 09:17 Neuro: Positive for headache, Negative for altered mental status, dizziness, numbness, syncope, tingling, visual changes, weakness. Exam: 09:17 Constitutional: This is a well developed, well nourished patient who is awake, alert, jr8 and in no acute distress. Head/Face: Normocephalic, atraumatic. Eyes: Pupils equal round and reactive to light, extra-ocular motions intact. Lids and lashes normal. Conjunctiva and sclera are non-icteric and not injected. Cornea within normal limits. Periorbital areas with no swelling, redness, or edema. ENT: Nares patent. No nasal discharge, no septal abnormalities noted. Tympanic membranes are normal and external auditory canals are clear. Oropharynx with no redness, swelling, or masses, exudates, or evidence of obstruction, uvula midline. Mucous membranes moist. Neck: Trachea midline, no thyromegaly or masses palpated, and no cervical lymphadenopathy. Supple, full range of motion without nuchal rigidity, or vertebral point tenderness. No Meningismus. Cardiovascular: Regular rate and rhythm with a normal S1 and S2. No gallops, murmurs, or rubs. Normal PMI, no JVD. No pulse deficits. Respiratory: Lungs have equal breath sounds bilaterally, clear to auscultation and percussion. No rales, rhonchi or wheezes noted. No increased work of breathing, no retractions or nasal flaring. Back: No spinal tenderness. No costovertebral tenderness. Full range of motion. Skin: Warm, dry with normal turgor. Normal color with no rashes, no lesions, and no evidence of cellulitis. MS/ Extremity: Pulses equal, no cyanosis. Neurovascular intact. Full, normal range of motion. Neuro: Awake and alert, GCS 15, oriented to person, place, time, and situation. Cranial nerves II-XII grossly intact. Motor strength 5/5 in all extremities. Sensory grossly intact. Cerebellar exam normal. Normal gait. 09:17 Abdomen/GI: Inspection: abdomen appears normal, Bowel sounds: normal, Palpation: soft, mild abdominal tenderness, in the right upper quadrant. Vital Signs: 08:30 BP 114 / 71; Pulse 92; Resp 16; Temp 98.9; Pulse Ox 100% on R/A; Weight 74.84 kg; iw Height 5 ft. 2 in. (157.48 cm); Pain 7/10; 10:12 BP 102 / 74; Pulse 77; Resp 17; Pulse Ox 100% on R/A; tw2 08:30 Body Mass Index 30.18 (74.84 kg, 157.48 cm) iw MDM: 09:07 Patient medically screened. [facility] 10:16 Data reviewed: vital signs, nurses notes, lab test result(s), and as a result, I will jr8 discharge patient. Data interpreted: Pulse oximetry: on room air is 100 %. Interpretation: normal. Counseling: I had a detailed discussion with the patient and/or guardian regarding: the historical points, exam findings, and any diagnostic results supporting the discharge/admit diagnosis, lab results, the need for outpatient follow up, a family practitioner, to return to the emergency department if symptoms worsen or persist or if there are any questions or concerns that arise at home. Response to treatment: the patient's symptoms have markedly improved after treatment. 04/30 09:17 Order name: Basic Metabolic Panel; Complete Time: 10:12 04/30 09:17 Order name: CBC with Diff; Complete Time: 09:56 04/30 09:17 Order name: Creatinine for Radiology; Complete Time: 10:04 04/30 09:17 Order name: Hepatic Function; Complete Time: 10:12 04/30 09:17 Order name: Lipase; Complete Time: 10:12 04/30 09:17 Order name: Urine Dipstick-Ancillary (obtain specimen); Complete Time: 09:41 04/30 09:17 Order name: Urine Test (obtain specimen); Complete Time: 09:41 04/30 09:17 Order name: IV Saline Lock; Complete Time: 09:41 jr8 04/30 09:17 Order name: Labs collected and sent; Complete Time: :41 jr8 Administered Medications: 09:35 Drug: Zofran 4 mg Route: IVP; Site: right antecubital; tw2 10:35 Follow up: Response: No adverse reaction; Nausea is decreased tw2 09:37 Drug: TORadol - Ketorolac 15 mg Route: IVP; Site: right antecubital; tw2 10:35 Follow up: Response: No adverse reaction; Pain is decreased tw2 10:42 Drug: Reglan 10 mg Route: IVP; Site: right antecubital; tw2 11:07 Follow up: Response: Marked relief of symptoms aj 10:44 Drug: Benadryl 25 mg Route: IVP; Site: right antecubital; tw2 11:07 Follow up: Response: Marked relief of symptoms aj Disposition: 15:57 Co-signature as Attending Physician, Stu Peace MD. rn Disposition: 04/30/19 10:17 Discharged to Home. Impression: Migraine. - Condition is Stable. - Discharge Instructions: Migraine Headache. - Medication Reconciliation Form, Thank You Letter, Antibiotic Education, Prescription Opioid Use, Work release form form. - Follow up: Private Physician; When: 2 - 3 days; Reason: Recheck today's complaints, Continuance of care, Re-evaluation by your physician. - Problem is new. - Symptoms have improved. Signatures: Dispatcher [employer] Ashly Love RN RN aj Williams, Irene, RN RN iw Nieto, Roman, MD MD rn Roszak, Josh, PA PA jr8 Krys Hughes RN RN tw2 Corrections: (The following items were deleted from the chart) 11:08 10:17 04/30/2019 10:17 Discharged to Home. Impression: Migraine. Condition is Stable. aj Forms are Medication Reconciliation Form, Thank You Letter, Antibiotic Education, Prescription Opioid Use. Follow up: Private Physician; When: 2 - 3 days; Reason: Recheck today's complaints, Continuance of care, Re-evaluation by your physician. Problem is new. Symptoms have improved. jr8
[2019-04-30] MEDS ORDERED: METOCLOPRAMIDE 10 MG/2mL INJ ONE (10:54)
[2019-04-30] MEDS ORDERED: DIPHENHYDRAMINE 50 MG/ML VIAL ONE (10:55)
== END 2019-04-30 11:08 | disposition home or self-care (01) ==
LOC: ER 08:06
DX: G43.909 Migraine, unspecified, not intractable, without status migrainosus (principal); F41.9 Anxiety disorder, unspecified; F31.9 Bipolar disorder, unspecified
CPT/HCPCS: 36415; 80048; 80076; 83690; 85025; 96374; 96375; 99283; J2405; J2765

== ENCOUNTER 2019-05-07 01:25 | Emergency (ER) | payer SELFPAY ==
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
== END 2019-05-07 04:15 | disposition home or self-care (01) ==
LOC: ER 01:25
DX: T76.21XA Adult sexual abuse, suspected, initial encounter (principal); R10.2 Pelvic and perineal pain; F41.9 Anxiety disorder, unspecified; F31.9 Bipolar disorder, unspecified
CPT/HCPCS: 99283

== ENCOUNTER 2019-05-15 17:09 | Emergency (ER) | payer SELFPAY ==
--- OUTSIDE RECORDS SUMMARY | 2019-05-15 17:12 | XMS REPORT ---
:1990 [facility] Address [address] [place] [address] Dr. Mcneill[address] [place] [id number] Care Team Providers Name Role Phone Unavailable Unavailable Unavailable Problems This patient has no known problems. Allergies, Adverse Reactions, Alerts This patient has no known allergies or adverse reactions. Medications This patient has no known medications.
[2019-05-15] MEDS ORDERED: METOCLOPRAMIDE 10 MG/2mL INJ ONE (17:45)
[2019-05-15] MEDS ORDERED: KETOROLAC 30 MG/ML INJ ONE (17:45)
[2019-05-15] MEDS ORDERED: NA CHLORIDE 0.9% 1,000 ML ONE (17:46)
[2019-05-15 18:19] LABS: Urine Blood NEGATIVE (NEG); Urine Glucose NEGATIVE (NEG); Urine Protein NEGATIVE (NEG); Urine Specific Gravity 1.015 (1.005-1.030)
[2019-05-15 18:59] LABS: Urine Bacteria <20 /HPF (<20); Urine Culture Reflex Order NOT NEEDED; Urine RBC NONE SEEN /HPF (NONE SEEN)
--- NOTE | 2019-05-15 19:04 | ER ---
Nurse's Notes [facility] Name: Judith Alan Age: 28 yrs Sex: Female : 1990 Arrival Date: 05/15/2019 Time: 17:11 Bed 27 Private MD: Unknown, Unknown Diagnosis: Candidiasis of vulva and vagina;Migraine Presentation: 05/15 17:16 Presenting complaint: Patient states: headache, vaginal burning and discharge that aa5 began 1 week ago. Denies burning with urination. Transition of care: patient was not received from another setting of care. Onset of symptoms was April 2019. Risk Assessment: Do you want to hurt yourself or someone else? Patient reports no desire to harm self or others. Initial Sepsis Screen: Does the patient meet any 2 criteria? No. Patient's initial sepsis screen is negative. Does the patient have a suspected source of infection? No. Patient's initial sepsis screen is negative. Care prior to arrival: None. 17:16 Acuity: SHABBIR 3 aa5 17:16 Method Of Arrival: Ambulatory aa5 Triage Assessment: 18:09 Headache History: The patient has had previous headaches and this one is similar to mg2 previous episodes. General: Appears in no apparent distress. comfortable, Behavior is calm, cooperative. Pain: Complains of pain in head Also complains of no other associated symptoms. 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 - Social history:: Smoking status: Patient/guardian denies using tobacco. - Ebola Screening: : No symptoms or risks identified at this time. Screenin:07 Abuse screen: Denies threats or abuse. Denies injuries from another. Nutritional mg2 screening: No deficits noted. Tuberculosis screening: No symptoms or risk factors identified. Fall Risk IV access (20 points). Assessment: 18:06 General: Appears in no apparent distress. comfortable, Behavior is calm, cooperative. mg2 Pain: Complains of pain in head Pain does not radiate. Pain currently is 5 out of 10 on a pain scale. Quality of pain is described as aching, Pain began gradually, Is intermittent. Neuro: Level of Consciousness is awake, alert, obeys commands, Oriented to person, place, time, situation. Cardiovascular: Capillary refill < 3 seconds Patient's skin is warm and dry. Respiratory: Airway is patent Respiratory effort is even, unlabored, Respiratory pattern is regular, symmetrical. GI: No signs and/or symptoms were reported involving the gastrointestinal system. : No signs and/or symptoms were reported regarding the genitourinary system. : Reports vaginal itching. EENT: No signs and/or symptoms were reported regarding the EENT system. Derm: Skin is intact, is healthy with good turgor, Skin is pink, warm \T\ dry. normal. Musculoskeletal: Circulation, motion, and sensation intact. Capillary refill < 3 seconds. 19:19 Reassessment: Patient states feeling better. Patient states symptoms have improved. mg2 Vital Signs: 17:17 BP 115 / 73; Pulse 77; Resp 18 S; Temp 97.8(TE); Pulse Ox 100% on R/A; Weight 77.11 kg aa5 (R); Height 5 ft. 2 in. (157.48 cm) (R); Pain 8/10; 17:17 Body Mass Index 31.09 (77.11 kg, 157.48 cm) aa5 [place] Coma Score: 19:03 Eye Response: spontaneous(4). Verbal Response: oriented(5). Motor Response: obeys kb commands(6). Total: 15. ED Course: 17:11 Patient arrived in ED. ag5 17:12 Unknown, Unknown is Private Physician. ag5 17:16 Triage completed. aa5 17:16 Arm band placed on. aa5 17:31 Darrell Fowler, LINA is Primary Nurse. mg2 17:32 Stacy Bass FNP-C [facility]. kb 17:32 Lakhwinder Jean MD is Attending Physician. kb 18:07 No provider procedures requiring assistance completed. Inserted saline lock: 20 gauge mg2 in left antecubital area, using aseptic technique. 18:08 Patient has correct armband on for positive identification. Pulse ox on. NIBP on. mg2 19:20 IV discontinued, intact, bleeding controlled, No redness/swelling at site. Pressure mg2 dressing applied. Administered Medications: 17:59 Drug: NS 0.9% 1000 ml Route: IV; Rate: 1000 ml; Site: left antecubital; mg2 19:19 Follow up: Response: No adverse reaction; IV Status: Completed infusion; IV Intake: mg2 1000ml 18:01 Drug: Reglan 10 mg Route: IVP; Site: left antecubital; mg2 19:19 Follow up: Response: No adverse reaction; Marked relief of symptoms mg2 18:01 Drug: TORadol 30 mg Route: IVP; Site: left antecubital; mg2 19:19 Follow up: Response: No adverse reaction; Medication administered at discharge. mg2 19:18 Drug: DiFLUcan 150 mg Route: PO; mg2 19:18 Follow up: Response: No adverse reaction mg2 Intake: 19:19 IV: 1000ml; Total: 1000ml. mg2 Outcome: 19:03 Discharge ordered by . kb 19:20 Discharged to home ambulatory. mg2 19:20 Condition: stable 19:20 Discharge instructions given to patient, Instructed on discharge instructions, follow up and referral plans. Demonstrated understanding of instructions, follow-up care. 19:20 Patient left the ED. mg2 Signatures: Stacy Bass, MAGDY-Cr GUZMANP-Meche Summers, RN RN aa5 Darrell Fowler RN RN mg2 Linda Cash ag5
--- NOTE | 2019-05-15 19:04 | EDPHYS ---
Physician Documentation [facility] Name: Judith Alan Age: 28 yrs Sex: Female : 1990 Arrival Date: 05/15/2019 Time: 17:11 Bed 27 Private MD: Unknown, Unknown ED Physician Lakhwinder Jean HPI: 05/16 02:31 This 28 yrs old Female presents to ER via Ambulatory with complaints of kb Headache, Vaginal Itching. 02:31 The patient complains of pain to the forehead. The patient describes the headache as kb throbbing. 02:31 Onset: The symptoms/episode began/occurred 1 week(s) ago. Associated signs and kb symptoms: The patient has no apparent associated signs or symptoms. Severity of symptoms: At its worst the pain was mild, in the emergency department the pain is unchanged. Headache History: The patient has had previous headaches and this one is similar to previous episodes. The symptoms are alleviated by nothing. the symptoms are aggravated by nothing. The patient has experienced similar episodes in the past, a few times. The patient has not recently seen a physician. Pt reports headache for a week that feels like a migraine (pt has history of migraines). Also reports white discharge and vaginal itching for a week that feels like a yeast infection. 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 - Social history:: Smoking status: Patient/guardian denies using tobacco. - Ebola Screening: : No symptoms or risks identified at this time. ROS: 05/16 02:29 Constitutional: Negative for fever, chills, and weight loss, ENT: Negative for injury, kb pain, and discharge, Neck: Negative for injury, pain, and swelling, Cardiovascular: Negative for chest pain, palpitations, and edema, Respiratory: Negative for shortness of breath, cough, wheezing, and pleuritic chest pain, Abdomen/GI: Negative for abdominal pain, nausea, vomiting, diarrhea, and constipation, Back: Negative for injury and pain, MS/Extremity: Negative for injury and deformity, Skin: Negative for injury, rash, and discoloration. : Positive for vaginal discharge, vaginal itching. Neuro: Positive for headache. Exam: 02:29 Constitutional: This is a well developed, well nourished patient who is awake, alert, kb and in no acute distress. Head/Face: Normocephalic, atraumatic. Eyes: Pupils equal round and reactive to light, extra-ocular motions intact. Lids and lashes normal. Conjunctiva and sclera are non-icteric and not injected. Cornea within normal limits. Periorbital areas with no swelling, redness, or edema. ENT: Nares patent. No nasal discharge, no septal abnormalities noted. Tympanic membranes are normal and external auditory canals are clear. Oropharynx with no redness, swelling, or masses, exudates, or evidence of obstruction, uvula midline. Mucous membranes moist. Neck: Trachea midline, no thyromegaly or masses palpated, and no cervical lymphadenopathy. Supple, full range of motion without nuchal rigidity, or vertebral point tenderness. No Meningismus. Chest/axilla: Normal chest wall appearance and motion. Nontender with no deformity. No lesions are appreciated. Cardiovascular: Regular rate and rhythm with a normal S1 and S2. No gallops, murmurs, or rubs. Normal PMI, no JVD. No pulse deficits. Respiratory: Lungs have equal breath sounds bilaterally, clear to auscultation and percussion. No rales, rhonchi or wheezes noted. No increased work of breathing, no retractions or nasal flaring. Abdomen/GI: Soft, non-tender, with normal bowel sounds. No distension or tympany. No guarding or rebound. No evidence of tenderness throughout. Back: No spinal tenderness. No costovertebral tenderness. Full range of motion. Skin: Warm, dry with normal turgor. Normal color with no rashes, no lesions, and no evidence of cellulitis. MS/ Extremity: Pulses equal, no cyanosis. Neurovascular intact. Full, normal range of motion. Neuro: Awake and alert, GCS 15, oriented to person, place, time, and situation. Cranial nerves II-XII grossly intact. Motor strength 5/5 in all extremities. Sensory grossly intact. Cerebellar exam normal. Normal gait. Vital Signs: 05/15 17:17 BP 115 / 73; Pulse 77; Resp 18 S; Temp 97.8(TE); Pulse Ox 100% on R/A; Weight 77.11 kg aa5 (R); Height 5 ft. 2 in. (157.48 cm) (R); Pain 8/10; 17:17 Body Mass Index 31.09 (77.11 kg, 157.48 cm) aa5 [place] Coma Score: 19:03 Eye Response: spontaneous(4). Verbal Response: oriented(5). Motor Response: obeys kb commands(6). Total: 15. MDM: 17:34 Patient medically screened. kb 19:03 Data reviewed: vital signs, nurses notes. Data interpreted: Pulse oximetry: on room air kb is 100 %. Interpretation: normal. Counseling: I had a detailed discussion with the patient and/or guardian regarding: the historical points, exam findings, and any diagnostic results supporting the discharge/admit diagnosis, the need for outpatient follow up, a family practitioner, to return to the emergency department if symptoms worsen or persist or if there are any questions or concerns that arise at home. 05/15 17:41 Order name: Urine Microscopic Only; Complete Time: 19:00 kb 05/15 18:02 Order name: Urine Dipstick--Ancillary (enter results); Complete Time: 18:22 eb 05/15 18:02 Order name: Urine --Ancillary (enter results); Complete Time: 18:22 eb 05/15 17:41 Order name: Urine Test (obtain specimen); Complete Time: 18:01 kb 05/15 17:41 Order name: Urine Dipstick-Ancillary (obtain specimen); Complete Time: 18:01 kb 05/15 17:41 Order name: IV Start; Complete Time: 17:59 kb Administered Medications: 17:59 Drug: NS 0.9% 1000 ml Route: IV; Rate: 1000 ml; Site: left antecubital; mg2 19:19 Follow up: Response: No adverse reaction; IV Status: Completed infusion; IV Intake: mg2 1000ml 18:01 Drug: Reglan 10 mg Route: IVP; Site: left antecubital; mg2 19:19 Follow up: Response: No adverse reaction; Marked relief of symptoms mg2 18:01 Drug: TORadol 30 mg Route: IVP; Site: left antecubital; mg2 19:19 Follow up: Response: No adverse reaction; Medication administered at discharge. mg2 19:18 Drug: DiFLUcan 150 mg Route: PO; mg2 19:18 Follow up: Response: No adverse reaction mg2 Disposition: 05/15/19 19:03 Discharged to Home. Impression: Candidiasis of vulva and vagina, Migraine. - Condition is Stable. - Discharge Instructions: Vaginal Yeast Infection, Adult, Migraine Headache, [place]obl. - Medication Reconciliation Form, Thank You Letter, Antibiotic Education, Prescription Opioid Use form. - Follow up: Emergency Department; When: As needed; Reason: Worsening of condition. Follow up: Private Physician; When: 2 - 3 days; Reason: Recheck today's complaints, Continuance of care, Re-evaluation by your physician. Addendum: 05/19/2019 08:45 Co-signature as Attending Physician, Lakhwinder Jean MD I agree with the assessment and k dr plan of care. Signatures: Dispatcher [employer] EDMS Stacy Bass, SPICE GRINDER-C SPICE GRINDER-Ckb Lakhwinder Jean MD MD [facility] Meche Nielsen, LINA RN aa5 Darrell Fowler RN RN mg2 Corrections: (The following items were deleted from the chart) 05/15 19:20 19:03 05/15/2019 19:03 Discharged to Home. Impression: Candidiasis of vulva and vagina; mg2 Migraine. Condition is Stable. Forms are Medication Reconciliation Form, Thank You Letter, Antibiotic Education, Prescription Opioid Use. Follow up: Emergency Department; When: As needed; Reason: Worsening of condition. Follow up: Private Physician; When: 2 - 3 days; Reason: Recheck today's complaints, Continuance of care, Re-evaluation by your physician. kb
[2019-05-15] MEDS ORDERED: FLUCONAZOLE 100 MG TAB ONE (19:13)
== END 2019-05-15 19:20 | disposition home or self-care (01) ==
LOC: ER 17:09
DX: G43.909 Migraine, unspecified, not intractable, without status migrainosus (principal); B37.3 Candidiasis of vulva and vagina; F41.9 Anxiety disorder, unspecified; F31.9 Bipolar disorder, unspecified
CPT/HCPCS: 81003; 81015; 81025; 96361; 96374; 96375; 99283; J2765; J7030

== ENCOUNTER 2019-06-23 12:15 | Emergency (ER) | payer SELFPAY ==
--- OUTSIDE RECORDS SUMMARY | 2019-06-23 12:19 | XMS REPORT ---
:1990 [facility] Address [address] [place] [address] Dr. Mcneill. [address] [place] [id number] Care Team Providers Name Role Phone Unavailable Unavailable Unavailable Problems This patient has no known problems. Allergies, Adverse Reactions, Alerts This patient has no known allergies or adverse reactions. Medications This patient has no known medications.
--- NOTE | 2019-06-23 13:47 | ER ---
Nurse's Notes [facility] Name: Judith Alan Age: 28 yrs Sex: Female : 1990 Arrival Date: 06/23/2019 Time: 12:18 Bed 28 Private MD: None, None Diagnosis: Acute upper respiratory infection, unspecified Presentation: 06/23 12:27 Presenting complaint: Patient states: productive cough, congestion, and sore throat aa5 that began this morning. Transition of care: patient was not received from another setting of care. Onset of symptoms was June 2019. Risk Assessment: Do you want to hurt yourself or someone else? Patient reports no desire to harm self or others. Initial Sepsis Screen: Does the patient meet any 2 criteria? No. Patient's initial sepsis screen is negative. Does the patient have a suspected source of infection? No. Patient's initial sepsis screen is negative. Care prior to arrival: None. 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 - Social history:: Smoking status: Patient/guardian denies using tobacco. - Ebola Screening: : No symptoms or risks identified at this time. Screenin:07 Abuse screen: Denies threats or abuse. Denies injuries from another. Nutritional aj1 screening: No deficits noted. Tuberculosis screening: No symptoms or risk factors identified. Assessment: 13:07 General: Appears in no apparent distress. comfortable, Behavior is calm, cooperative, aj1 appropriate for age. Pain: Complains of pain in left aspect of posterior pharynx and right aspect of posterior pharynx. Neuro: Level of Consciousness is awake, alert, obeys commands, Oriented to person, place, time, situation. Cardiovascular: Heart tones S1 S2 present Patient's skin is warm and dry. Respiratory: Reports cough that is productive, Airway is patent Respiratory effort is even, unlabored, Respiratory pattern is regular, symmetrical, Breath sounds are clear bilaterally. Denies shortness of breath. GI: No signs and/or symptoms were reported involving the gastrointestinal system. : No signs and/or symptoms were reported regarding the genitourinary system. EENT: Throat is reddened bilaterally Reports nasal congestion nasal discharge sore throat. Derm: No signs and/or symptoms reported regarding the dermatologic system. Skin is pink, warm \T\ dry. normal. Musculoskeletal: No signs and/or symptoms reported regarding the musculoskeletal system. Circulation, motion, and sensation intact. 13:52 Reassessment: Patient appears in no apparent distress at this time. No changes from [facility] previously documented assessment. Patient and/or family updated on plan of care and expected duration. Pain level reassessed. Patient is alert, oriented x 3, equal unlabored respirations, skin warm/dry/pink. Vital Signs: 12:29 BP 129 / 80; Pulse 98; Resp 16 S; Temp 98.9(O); Pulse Ox 97% on R/A; Weight 77.11 kg aa5 (R); Height 5 ft. 2 in. (157.48 cm) (R); 12:29 Body Mass Index 31.09 (77.11 kg, 157.48 cm) aa5 ED Course: 12:18 Patient arrived in ED. mr 12:19 None, None is Private Physician. mr 12:28 Triage completed. aa5 12:28 Arm band placed on. aa5 12:32 Alan Tong PA is PHCP. [facility] 12:32 Stu Peace MD is Attending Physician. [facility] 12:34 Betty Cardona, LINA is Primary Nurse. aj1 13:07 Patient has correct armband on for positive identification. Bed in low position. Call [facility] light in reach. 13:07 No provider procedures requiring assistance completed. aj1 13:15 Flu and/or RSV swab sent to lab. Strep swab sent to lab. jp3 13:23 Strep Sent. 3 13:23 Flu Sent. 3 13:53 Patient did not have IV access during this emergency room visit. ss Administered Medications: No medications were administered Outcome: 13:46 Discharge ordered by . [facility] 13:53 Discharged to home ambulatory. ss 13:53 Condition: good 13:53 Discharge instructions given to patient, Instructed on discharge instructions, follow up and referral plans. medication usage, Demonstrated understanding of instructions, follow-up care, medications, Prescriptions given X 1. 13:54 Patient left the ED. Signatures: Betty Cardona RN RN aj1 Alan Tong PA PA jmm Rivera, Mary mr Meche Nielsen, RN RN aa5 Jerrica Ferrer RN RN ss Sam Bellamy jp3
--- NOTE | 2019-06-23 13:47 | EDPHYS ---
Physician Documentation [facility] Name: Judith Alan Age: 28 yrs Sex: Female : 1990 Arrival Date: 06/23/2019 Time: 12:18 Bed 28 Private MD: None, None ED Physician Stu Peace HPI: 06/23 12:48 This 28 yrs old Female presents to ER via Ambulatory with complaints of jmm Cough, Congestion. 12:48 Onset: The symptoms/episode began/occurred gradually, 1 day(s) ago. Modifying factors: jmm The symptoms are alleviated by nothing, the symptoms are aggravated by nothing. This is a 28 year old female with a history of bipolar that presents to the ED with complaints of cough, congestion, productive sputum which began last night. Patient denies vomiting. Denies diarrhea. . 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 - Social history:: Smoking status: Patient/guardian denies using tobacco. - Ebola Screening: : No symptoms or risks identified at this time. ROS: 12:48 Cardiovascular: Negative for chest pain, palpitations, and edema. jmm 12:48 Abdomen/GI: Negative for abdominal pain, nausea, vomiting, diarrhea, and constipation, Back: Negative for injury and pain. 12:48 Constitutional: Positive for fatigue, malaise. 12:48 Respiratory: Positive for cough, with green sputum. 12:48 All other systems are negative. Exam: 12:48 Constitutional: This is a well developed, well nourished patient who is awake, alert, jmm and in no acute distress. Head/Face: atraumatic. Eyes: EOMI, no conjunctival erythema appreciated ENT: Moist Mucus Membranes Neck: Trachea midline, Supple Chest/axilla: Normal chest wall appearance and motion. Cardiovascular: Regular rate and rhythm. No edema appreciated Respiratory: Normal respirations, no respiratory distress appreciated Abdomen/GI: Non distended, soft 12:48 Skin: General appearance color normal MS/ Extremity: Moves all extremities, no obvious deformities appreciated, no edema noted to the lower extremities Neuro: Awake and alert, normal gait Psych: Behavior is normal, Mood is normal, Patient is cooperative and pleasant 12:48 ENT: TM's: are normal, Posterior pharynx: erythema, that is moderate. Vital Signs: 12:29 BP 129 / 80; Pulse 98; Resp 16 S; Temp 98.9(O); Pulse Ox 97% on R/A; Weight 77.11 kg aa5 (R); Height 5 ft. 2 in. (157.48 cm) (R); 12:29 Body Mass Index 31.09 (77.11 kg, 157.48 cm) aa5 MDM: 12:58 Patient medically screened. [facility] 13:42 Data reviewed: vital signs, nurses notes. Counseling: I had a detailed discussion with elizabeth the patient and/or guardian regarding: the historical points, exam findings, and any diagnostic results supporting the discharge/admit diagnosis, lab results, the need for outpatient follow up, to return to the emergency department if symptoms worsen or persist or if there are any questions or concerns that arise at home. ED course: Patient is alert and non toxic in appearance in the ED. No signs of resp distress are appreciated. Symptoms appear most likely viral. Patient given strict return precautions. Patient understood and agree with the plan of care. . 06/23 12:58 Order name: Flu; Complete Time: 13:40 [facility] 06/23 12:58 Order name: Strep; Complete Time: 13:40 [facility] 06/23 13:36 Order name: Throat Culture EDMS Administered Medications: No medications were administered Disposition: 17:08 Co-signature as Attending Physician, Stu Peace MD. rn Disposition: 06/23/19 13:46 Discharged to Home. Impression: Acute upper respiratory infection, unspecified. - Condition is Stable. - Discharge Instructions: Upper Respiratory Infection, Adult. - Prescriptions for Bromfed DM 2- 30-10 mg/5 mL Oral syrup - take 5 milliliter by ORAL route every 4 hours; 120 milliliter. - Medication Reconciliation Form, Thank You Letter, Antibiotic Education, Prescription Opioid Use form. - Follow up: Private Physician; When: 2 - 3 days; Reason: Recheck today's complaints, Continuance of care, Re-evaluation by your physician. Signatures: Dispatcher [employer] EDMS Alan Tong PA PA jmm Nieto, Roman, MD MD rn Meche Nielsen RN RN aa5 Jerrica Ferrer RN RN ss Corrections: (The following items were deleted from the chart) 13:54 13:46 06/23/2019 13:46 Discharged to Home. Impression: Acute upper respiratory ss infection, unspecified. Condition is Stable. Forms are Medication Reconciliation Form, Thank You Letter, Antibiotic Education, Prescription Opioid Use. Follow up: Private Physician; When: 2 - 3 days; Reason: Recheck today's complaints, Continuance of care, Re-evaluation by your physician. elizabeth
[2019-06-23 16:58] VITALS: BP 129/80; TEMP 98.9; O2SAT 97
== END 2019-06-23 13:54 | disposition home or self-care (01) ==
LOC: ER 12:15
DX: J06.9 Acute upper respiratory infection, unspecified (principal)
CPT/HCPCS: 87070; 87081; 87804; 99283

== ENCOUNTER 2020-07-09 12:12 | Emergency (ER) | payer SELFPAY ==
--- NOTE | 2020-07-09 13:58 | RAD REPORT ---
EXAM DESCRIPTION: RAD - Chest Single View - 07/09/2020 1:46 pm CLINICAL HISTORY: Dyspnea;Cough COMPARISON: None TECHNIQUE: AP portable chest image was obtained 07/09/2020 1:46 pm . FINDINGS: Lungs are clear. Heart and vasculature are normal. No measurable pleural effusion and no p neumothorax. No acute bony abnormality seen. No acute aortic findings suspected. IMPRESSION: No acute cardiopulmonary process.
--- NOTE | 2020-07-09 14:53 | ER ---
Nurse's Notes [facility] Name: Judith Alan Age: 29 yrs Sex: Female : 1990 Arrival Date: 07/09/2020 Time: 12:15 Bed 2 Private MD: Diagnosis: Acute upper respiratory infection, unspecified;Acute bronchitis Presentation: 07/09 12:27 Chief complaint: Patient states: sore throat since Sunday. + NAVARRO, cough, and pain with ll1 breathing since Sunday. No known fever. No N/V/D. No appetite. Coronavirus screen: Client denies travel out of the [place] in the last 14 days. cough unrelated to allergies, fatigue, headache, runny nose, Client presents with at least one sign or symptom that may indicate coronavirus-19. Standard/surgical mask placed on the client. Ebola Screen: Patient denies travel to an Ebola-affected area in the 21 days before illness onset. Initial Sepsis Screen: Does the patient meet any 2 criteria? HR > 90 bpm. No. Patient's initial sepsis screen is negative. Risk Assessment: Do you want to hurt yourself or someone else? Patient reports no desire to harm self or others. Onset of symptoms was July 06, 2020. 12:27 Method Of Arrival: Ambulatory ll1 12:27 Acuity: SHABBIR 4 ll1 Historical: - Allergies: 12:30 No Known Allergies; ll1 - PMHx: 12:30 Anxiety; Bipolar disorder; insommnia; ll1 - PSHx: 12:30 Tubal ligation; Breast for mastatitis; ll1 - Immunization history:: Flu vaccine is up to date. - Social history:: Smoking status: Patient denies any tobacco usage or history of. Screenin:30 Abuse screen: Denies threats or abuse. Denies injuries from another. Nutritional hb screening: No deficits noted. Tuberculosis screening: No symptoms or risk factors identified. Fall Risk None identified. Assessment: 12:45 General: Appears in no apparent distress. Behavior is calm, cooperative. Pain: hb Complains of pain in chest Pain currently is 7 out of 10 on a pain scale. Neuro: Level of Consciousness is awake, alert, obeys commands, Oriented to person, place, time, situation. Cardiovascular: Capillary refill < 3 seconds Patient's skin is warm and dry. Respiratory: Reports shortness of breath at rest cough that is productive, pain with cough Airway is patent Respiratory effort is even, unlabored, Respiratory pattern is regular, symmetrical. GI: No signs and/or symptoms were reported involving the gastrointestinal system. : No signs and/or symptoms were reported regarding the genitourinary system. EENT: No signs and/or symptoms were reported regarding the EENT system. Derm: Skin is pink, warm \T\ dry. Musculoskeletal: No signs and/or symptoms reported regarding the musculoskeletal system. 13:45 Reassessment: Patient appears in no apparent distress at this time. No changes from hb previously documented assessment. Patient and/or family updated on plan of care and expected duration. Pain level reassessed. 14:45 Reassessment: Patient appears in no apparent distress at this time. No changes from hb previously documented assessment. Patient and/or family updated on plan of care and expected duration. Pain level reassessed. Patient is alert, oriented x 3, equal unlabored respirations, skin warm/dry/pink. Vital Signs: 12:27 BP 119 / 93; Pulse 107; Resp 17; Temp 98.8; Pulse Ox 99% ; Pain 7/10; ll1 13:45 BP 124 / 88; Pulse 102; Resp 18; Pulse Ox 98% ; hb 14:45 BP 126 / 86; Pulse 90; Resp 17; Pulse Ox 100% on R/A; hb ED Course: 12:15 Patient arrived in ED. ds1 12:30 Triage completed. ll1 12:30 Arm band placed on Patient placed in an exam room, on a stretcher. ll1 12:32 Mira Nieves, RN is Primary Nurse. ph 12:45 Patient has correct armband on for positive identification. Bed in low position. Call light in reach. 12:49 Jboy Gates PA is PHCP. jr8 12:49 Lakhwinder Jean MD is Attending Physician. jr8 13:27 COVID-19 Sent. mh5 13:27 Influenza Screen (a \T\ B) Sent. 5 13:27 Strep Sent. 5 13:27 Flu and/or RSV swab sent to lab. Strep swab sent to lab. COVID 19. mh5 13:46 XRAY CXR (1 view) In Process Unspecified. EDMS 15:08 No provider procedures requiring assistance completed. Patient did not have IV access hb during this emergency room visit. Administered Medications: No medications were administered Outcome: 14:52 Discharge ordered by . valerie 15:08 Discharged to home ambulatory. hb 15:08 Condition: stable 15:08 Discharge instructions given to patient, Instructed on discharge instructions, follow up and referral plans. medication usage, Demonstrated understanding of instructions, follow-up care, medications, Prescriptions given X 2. 15:08 Patient left the ED. hb Addendum: 07/12/2020 11:44 Addendum: COVID-19 Result: Negative result given to RN to notify pt. Notified pt of s s negative COVID 19 swab results. Pt advised that even with a negative test result they should remain in isolation until symptom free for 3 days without medication. Pt also advised to return to the ED for worsening symptoms. Signatures: Dispatcher [employer] [facility] Keturah Lauren ds1 Jerrica Ferrer RN RN ss Roszak, Josh, PA PA jr8 Hall, Patricia, RN RN Laura Turner RN RN Franny Rivera [facility] Maria M Sanchez RN RN ll1
--- NOTE | 2020-07-09 14:53 | EDPHYS ---
Physician Documentation [facility] Name: Judith Alan Age: 29 yrs Sex: Female : 1990 Arrival Date: 07/09/2020 Time: 12:15 Bed 2 Private MD: ED Physician Lakhwinder Jean HPI: 07/09 13:45 This 29 yrs old Female presents to ER via Ambulatory with complaints of jr8 Cough, Painful Breathing. 13:45 The patient or guardian reports cough, that is intermittent, described as mild. Onset: jr8 The symptoms/episode began/occurred acutely, 2 day(s) ago. Severity of symptoms: At their worst the symptoms were mild, in the emergency department the symptoms are unchanged. Modifying factors: The symptoms are alleviated by nothing, the symptoms are aggravated by nothing. Associated signs and symptoms: Pertinent positives: rhinorrhea, sore throat. The patient has not experienced similar symptoms in the past. The patient has not recently seen a physician. Historical: - Allergies: 12:30 No Known Allergies; ll1 - PMHx: 12:30 Anxiety; Bipolar disorder; insommnia; ll1 - PSHx: 12:30 Tubal ligation; Breast for mastatitis; ll1 - Immunization history:: Flu vaccine is up to date. - Social history:: Smoking status: Patient denies any tobacco usage or history of. ROS: 13:45 Eyes: Negative for injury, pain, redness, and discharge, Neck: Negative for injury, jr8 pain, and swelling, Abdomen/GI: Negative for abdominal pain, nausea, vomiting, diarrhea, and constipation, Back: Negative for injury and pain, MS/Extremity: Negative for injury and deformity, Skin: Negative for injury, rash, and discoloration, Neuro: Negative for headache, weakness, numbness, tingling, and seizure. 13:45 ENT: Positive for rhinorrhea, sinus congestion, sore throat. 13:45 Cardiovascular: Positive for chest pain, with cough. 13:45 Respiratory: Positive for cough, Negative for shortness of breath, sputum production, wheezing. Exam: 13:45 Eyes: Pupils equal round and reactive to light, extra-ocular motions intact. Lids and jr8 lashes normal. Conjunctiva and sclera are non-icteric and not injected. Cornea within normal limits. Periorbital areas with no swelling, redness, or edema. ENT: Nares patent. No nasal discharge, no septal abnormalities noted. Tympanic membranes are normal and external auditory canals are clear. Oropharynx with no redness, swelling, or masses, exudates, or evidence of obstruction, uvula midline. Mucous membranes moist. Neck: Trachea midline, no thyromegaly or masses palpated, and no cervical lymphadenopathy. Supple, full range of motion without nuchal rigidity, or vertebral point tenderness. No Meningismus. Cardiovascular: Regular rate and rhythm with a normal S1 and S2. No gallops, murmurs, or rubs. Normal PMI, no JVD. No pulse deficits. Abdomen/GI: Soft, non-tender, with normal bowel sounds. No distension or tympany. No guarding or rebound. No evidence of tenderness throughout. Back: No spinal tenderness. No costovertebral tenderness. Full range of motion. Skin: Warm, dry with normal turgor. Normal color with no rashes, no lesions, and no evidence of cellulitis. MS/ Extremity: Pulses equal, no cyanosis. Neurovascular intact. Full, normal range of motion. Neuro: Awake and alert, GCS 15, oriented to person, place, time, and situation. Cranial nerves II-XII grossly intact. Motor strength 5/5 in all extremities. Sensory grossly intact. Cerebellar exam normal. Normal gait. 13:45 Respiratory: the patient does not display signs of respiratory distress, Respirations: normal, symetrical, no use of accessory muscles, no grunting, no evidence of nasal flaring, no appreciated paradoxical movements, no prolonged exhalations, no pursed lip breathing, no retractions, no shallow respirations, no splinting, no tachypnea, Breath sounds: bronchial sounds, that are mild, are heard in the left posterior upper lobe. Vital Signs: 12:27 BP 119 / 93; Pulse 107; Resp 17; Temp 98.8; Pulse Ox 99% ; Pain 7/10; ll1 13:45 BP 124 / 88; Pulse 102; Resp 18; Pulse Ox 98% ; hb 14:45 BP 126 / 86; Pulse 90; Resp 17; Pulse Ox 100% on R/A; hb MDM: 12:53 Patient medically screened. 8 14:51 Data reviewed: vital signs, nurses notes, lab test result(s), radiologic studies, plain jr8 films. Data interpreted: Pulse oximetry: on room air is 99 %. Interpretation: normal. Counseling: I had a detailed discussion with the patient and/or guardian regarding: the historical points, exam findings, and any diagnostic results supporting the discharge/admit diagnosis, lab results, radiology results, the need for outpatient follow up, a family practitioner, to return to the emergency department if symptoms worsen or persist or if there are any questions or concerns that arise at home. 07/09 13:14 Order name: Strep; Complete Time: 14:53 [facility] 07/09 13:14 Order name: Influenza Screen (a \T\ B); Complete Time: 14:53 [facility] 07/09 13:14 Order name: XRAY CXR (1 view); Complete Time: 14:48 [facility] 07/09 13:14 Order name: COVID-19 [facility] 07/09 14:51 Order name: Throat Culture EDNE Administered Medications: No medications were administered Disposition: 17:04 Co-signature as Attending Physician, Lakhwinder Jean MD I agree with the assessment and kdr plan of care. Disposition: 07/09/20 14:52 Discharged to Home. Impression: Acute upper respiratory infection, unspecified, Acute bronchitis. - Condition is Stable. - Discharge Instructions: Acute Bronchitis, Adult, Upper Respiratory Infection, Adult, COVID-19. - Prescriptions for Prednisone 20 mg Oral Tablet - take 1 tablet by ORAL route once daily for 5 days; 5 tablet. Zithromax Z- Estevan 250 mg Oral Tablet - take 1 tablet by ORAL route as directed for 5 days Day 1 - take two (2) tablets one time. Day 2, 3, 4 , 5 take one (1) tablet once daily.; 6 tablet. - Work release form, Medication Reconciliation Form, Thank You Letter, Antibiotic Education, Prescription Opioid Use form. - Follow up: Private Physician; When: 2 - 3 days; Reason: Recheck today's complaints, Continuance of care, Re-evaluation by your physician. - Problem is new. - Symptoms have improved. Signatures: Dispatcher [employer] EDMS Lakhwinder Jean MD MD kdr Roszak, Josh, PA PA jr8 Laura Turner RN RN Maria M Sanchez RN RN ll1 Corrections: (The following items were deleted from the chart) 15:08 14:52 07/09/2020 14:52 Discharged to Home. Impression: Acute upper respiratory hb infection, unspecified; Acute bronchitis. Condition is Stable. Forms are Medication Reconciliation Form, Thank You Letter, Antibiotic Education, Prescription Opioid Use. Follow up: Private Physician; When: 2 - 3 days; Reason: Recheck today's complaints, Continuance of care, Re-evaluation by your physician. Problem is new. Symptoms have improved. jr8
[2020-07-09 15:14] VITALS: TEMP 98.8
[2020-07-09 15:16] VITALS: BP 126/86; O2SAT 100
== END 2020-07-09 15:08 | disposition home or self-care (01) ==
LOC: ER 12:12
DX: J20.9 Acute bronchitis, unspecified (principal); Z20.828 Contact with and (suspected) exposure to other viral communicable diseases
CPT/HCPCS: 71045; 87070; 87081; 87804; 99283; U0002

== ENCOUNTER 2021-09-09 19:18 | Emergency (ER) | payer SELFPAY ==
--- OUTSIDE RECORDS SUMMARY | 2021-09-09 19:21 | XMS REPORT | Continuity of Care Document ---
:1990 Author Organization [facility] t Address [address] [place] [address] [address] [place] [address] Care Team Providers Name Role Phone YAJAIRA Attending Clinician Unavailable ASIF Attending Clinician Unavailable Tom TRAN Attending Clinician Unavailable Payers Payer Name Policy Type Policy Number Effective Date Expiration Date S abigail NICOLASA [id number] 2019 00:00:00 [employer] [id number] 2019 00:00:00 Problems This patient has no known problems. Allergies, Adverse Reactions, Alerts Allergy Allergy Status Severity Reaction(s) Onset Inactive Treating Comm ents Source Name Type Date Date Clinician NO KNOWN Drug Active [facility] ALLERGIE Class [facility] Medications This patient has no known medications. Procedures This patient has no known procedures. Encounters Start End Encounter Admission Attending Care Care Encounter Source Date/Time Date/Time Type Type Clinicians Facility Department ID 2021-05-03 2021-05-04 Emergency [facility] [id number] Carrie 17:49:00 02:46:00 [facility] 2021-04-16 2021-04-22 Inpatient [facility]IR[facility] [id number] Carrie 21:16:42 13:04:[address] [facility] 2021-04-08 2021-04-08 Emergency X ASIF [facility] ERT [id number] [facility] 17:04:00 17:04:00 [facility] 2021-04-08 2021-04-08 Emergency X MARC [facility] ERT [id number] [facility] 02:42:00 02:42:00 LISA [facility] 2021-03-24 2021-03-24 Emergency X [facility] E[facility] [id number] [facility] 18:36:00 18:36:00 [facility] Results This patient has no known results.
--- NOTE | 2021-09-09 21:27 | EDPHYS ---
Physician Documentation [facility] Name: Judith Alan Age: 30 yrs Sex: Female : 1990 Arrival Date: 09/09/2021 Time: 19:21 Bed 17 Private MD: ED Physician Francisco Herring HPI: 09/09 22:00 This 30 yrs old Female presents to ER via Ambulatory with complaints of Breast Problem, kb - Pain. 22:01 Pt c/o bilateral breast tenderness/pain for a week. Denies any fever, discoloration, kb lumps, trauma. . Onset: The symptoms/episode began/occurred 1 week(s) ago. Severity of symptoms: At their worst the symptoms were moderate in the emergency department the symptoms are unchanged. The patient has not experienced similar symptoms in the past. The patient has not recently seen a physician. 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 - Social history:: Smoking status: Reported history of juuling and/or vaping. ROS: 22:00 Constitutional: Negative for fever, chills, and weight loss. kb 22:00 Cardiovascular: Positive for breast pain. 22:00 All other systems are negative. Exam: 22:00 Constitutional: This is a well developed, well nourished patient who is awake, alert, kb and in no acute distress. Head/Face: Normocephalic, atraumatic. ENT: Moist Mucous membranes Chest/axilla: Normal chest wall appearance and motion. Respiratory: Respirations even and unlabored. No increased work of breathing, no retractions or nasal flaring. Skin: Warm, dry with normal turgor. Normal color. MS/ Extremity: Pulses equal, no cyanosis. Neurovascular intact. Full, normal range of motion. Neuro: Awake and alert, GCS 15, oriented to person, place, time, and situation. Moves all extremities. Normal gait. Psych: Awake, alert, with orientation to person, place and time. Behavior, mood, and affect are within normal limits. Vital Signs: 19:38 BP 110 / 81; Pulse 82; Resp 15; Temp 98.0; Pulse Ox 100% on R/A; Weight 70.31 kg; ss Height 5 ft. 2 in. (157.48 cm); Pain 5/10; 21:23 BP 110 / 71; Pulse 93; Resp 16; Temp 97.8(TE); Pulse Ox 100% ; lt3 22:18 BP 99 / 62; Pulse 90; Resp 16 S; Pulse Ox 100% on R/A; bb 19:38 Body Mass Index 28.35 (70.31 kg, 157.48 cm) ss MDM: 21:13 Patient medically screened. kb 22:00 Data reviewed: vital signs, nurses notes. Data interpreted: Pulse oximetry: on room air kb is 100 %. Interpretation: normal. Counseling: I had a detailed discussion with the patient and/or guardian regarding: the historical points, exam findings, and any diagnostic results supporting the discharge/admit diagnosis, the need for outpatient follow up, a family practitioner, an OB/Gyne specialist, to return to the emergency department if symptoms worsen or persist or if there are any questions or concerns that arise at home. Administered Medications: 22:16 Drug: HYDROcodone-acetaminophen 5 mg-325 mg 1 tabs Route: PO; bb 22:18 Follow up: Response: No adverse reaction; Medication administered at discharge.; RASS: bb Alert and Calm (0) Disposition: 09/10 06:10 Co-signature as Attending Physician, Francisco Herring MD. mh7 Disposition Summary: 09/09/21 21:26 Discharge Ordered Location: Home kb Condition: Stable kb Diagnosis - Breast tenderness kb Followup: kb - With: Emergency Department - When: As needed - Reason: Worsening of condition Followup: kb - With: Private Physician - When: 2 - 3 days - Reason: Recheck today's complaints, Continuance of care, Re-evaluation by your physician Discharge Instructions: - Discharge Summary Sheet kb - Breast Tenderness kb Forms: - Medication Reconciliation Form kb - Thank You Letter kb - Antibiotic Education kb - Prescription Opioid Use kb Signatures: Stacy Bass FNP-C FNP-Lesa Nguyen RN RN Jerrica Cerrato RN RN ss Holmes, Maurice, MD MD mh7
--- NOTE | 2021-09-09 21:27 | ER ---
Nurse's Notes [facility] Name: Judith Alan Age: 30 yrs Sex: Female : 1990 Arrival Date: 09/09/2021 Time: 19:21 Bed 17 Private MD: Diagnosis: Breast tenderness Presentation: 09/09 19:37 Chief complaint: Patient states: burning sensation to bilateral breasts x 1 week. ss Coronavirus screen: Client denies travel out of the [place] in the last 14 days. Ebola Screen: Patient denies exposure to infectious person. Patient denies travel to an Ebola-affected area in the 21 days before illness onset. Initial Sepsis Screen: Does the patient meet any 2 criteria? No. Patient's initial sepsis screen is negative. Does the patient have a suspected source of infection? No. Patient's initial sepsis screen is negative. Risk Assessment: Do you want to hurt yourself or someone else? Patient reports no desire to harm self or others. Onset of symptoms was September 02, 2021. 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 - Social history:: Smoking status: Reported history of juuling and/or vaping. Screenin:17 Abuse screen: Denies threats or abuse. Nutritional screening: No deficits noted. bb Tuberculosis screening: No symptoms or risk factors identified. Fall Risk None identified. Assessment: 22:16 General: Pt seen by this RN at discharge, pt is A\T\O x 4, resp unlabored, verbalized bb understanding of and agrees to plan of care discharge instructions given pt ambulated with steady gait to exit. Vital Signs: 19:38 BP 110 / 81; Pulse 82; Resp 15; Temp 98.0; Pulse Ox 100% on R/A; Weight 70.31 kg; ss Height 5 ft. 2 in. (157.48 cm); Pain 5/10; 21:23 BP 110 / 71; Pulse 93; Resp 16; Temp 97.8(TE); Pulse Ox 100% ; lt3 22:18 BP 99 / 62; Pulse 90; Resp 16 S; Pulse Ox 100% on R/A; bb 19:38 Body Mass Index 28.35 (70.31 kg, 157.48 cm) ED Course: 19:21 Patient arrived in ED. bp1 19:38 Triage completed. ss 19:38 Arm band placed on right wrist. ss 21:04 [facility] Bass [facility]C [facility] kb 21:04 Francisco Herring MD is Attending Physician. kb 22:17 No provider procedures requiring assistance completed. Patient did not have IV access bb during this emergency room visit. Administered Medications: 22:16 Drug: HYDROcodone-acetaminophen 5 mg-325 mg 1 tabs Route: PO; bb 22:18 Follow up: Response: No adverse reaction; Medication administered at discharge.; RASS: saray Alert and Calm (0) Outcome: 21:26 Discharge ordered by MD. kb 22:18 Discharged to home ambulatory, with family. bb 22:18 Condition: stable 22:18 Discharge instructions given to patient, Instructed on discharge instructions, follow up and referral plans. Demonstrated understanding of instructions, follow-up care. 22:19 Patient left the ED. bb Signatures: Stacy Bass FNP-C FNP-Ckb Ballard, Brenda, RN RN bb Jerrica Ferrer RN RN Judy Jeffrey [facility] Valerie Ritchie lt3
[2021-09-09] MEDS ORDERED: HYDROCODONE/APAP 5/325 MG TAB ONE (22:11)
[2021-09-09 22:55] VITALS: O2SAT 100
[2021-09-09 22:57] VITALS: TEMP 97.8
[2021-09-09 23:00] VITALS: BP 99/62
== END 2021-09-09 22:19 | disposition home or self-care (01) ==
LOC: ER 19:18
DX: N64.4 Mastodynia (principal)
CPT/HCPCS: 99283

== ENCOUNTER 2024-06-24 17:41 | Emergency (ER) | payer SELFPAY ==
--- OUTSIDE RECORDS SUMMARY | 2024-06-24 17:48 | XMS REPORT | Continuity of Care Document ---
Author Name Unknown Address [address] [facility] [address] [place] [address] [facility] thconnect Address [address] [facility] 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 Phone Juan ANDERSON, [facility] Primary Care Physician [phone] SELENE PARRA Attending Clinician Unavailable Selene Parra MD Attending Clinician [phone] DONI MARIE Attending Clinician Unavailable Doni Marie MD Attending Clinician [phone] CHAYO SRIVASTAVA Attending Clinician UnavailChayo Mueller DO Attending Clinician [phone] Kavita OJEDA Attending Clinician Unavailable Kavita Young Attending Clinician [phone] CHRISTY RG Attending Clinician Unavailable Danie Delarosa Attending Clinician [phone] Christy Rg NP Attending Clinician [phone] MEMO RESENDIZ Attending Clinician Unavailable Memo Resendiz MD Attending Clinician [phone] DANII ARRIAGA Attending Clinician Unavailable Rose Hoff MD Attending Clinician [phone] Danii Ferrer Attending Clinician +[phone] MICHELLE TERRY Attending Clinician Unavaildanika Terry MD, Michelle Godoy Attending Clinician + [phone] RAVEN LIEBERMAN Attending Clinician Unavailable Raven Gutiérrez Attending Clinician [phone] Doctor Unassigned, [place] Attending Clinician U navailable HERMILO RICKS Attending Clinician Unavailable Hermilo Ricks DO Attending Clinician [phone] SURAJ SCOTT Attending Clinician UnavailSuraj Kee MD Attending Clinician [phone] CAT RUTLEDGE Attending Clinician Unavailable LISA TRAN Attending Clinician Unavailable Lisa Cruz Attending Clinician + [phone] CL GATES Attending Clinician Unavailable ROCHELLE GOLD Attending Clinician Unavailable SELENE PARRA Admitting Clinician Unavailable DONI MARIE Admitting Clinician Unavailable DANIE ONTIVEROS Admitting Clinician UnavailDANII Arguello Admitting Clinician Unavailable RAVEN LIEBERMAN Admitting Clinician Unavailable SURAJ SCOTT Admitting Clinician UnavailCAT Mars Admitting Clinician Unavailable CHRISTY RG Admitting Clinician Unavailable Payers Payer Name Policy Type Policy Number Effective Date Expirati on Date Source [facility] [id number] 2023 00:00:00 MEDICAID SSI PENDING PENDING 2024 00:00:00 Problems Condition Name Condition Details Condition Category Status Onset Date Resolution Date Last Treatment Date Treating Clinician Comments Source Lower abdominal pain Lower abdominal pain Disease Active 1-10 00:00: 00 [facility] Ureterolit hiasis Ureterolit hiasis Disease Active 8-05 00:00: 00 [facility] No known active problems No known active problems Disease [facility] Allergies, Adverse Reactions, Alerts Allergy Name Allergy Type Status Severity Reaction(s) Onset Date Inactive Date Treating Clinician Comments Source GABAPENT IN DRUG INGREDI Active Other-Cmnt 2022-10 0-20 00:00: 00 [facility] Gabapent in Propensi ty to adverse reaction s Active Other - See comments 2022-10 0-20 00:00: 00 Manic episodes [facility] NO KNOWN ALLERGIE S Drug Class Active [facility] Social History Social Habit Start Date Stop Date Quantity Comments Source Gender identity [facility] to SARS-CoV-2 (event) 2023-02-24 00:00:00 2023-03-06 22:59:00 Not sure [facility] Sex assigned at 1990 00:00:00 1990 00:00:00 [facility] Smoking Status Start Date Stop Date Source Tobacco smoking consumption unknown [facility] Medications Ordered Medication Name Filled Medication Name Start Date Stop Date Current Medication? Ordering Clinician Indication Dosage Frequency Signature (SIG) Comments Components Source butalbital- acetaminoph en-caff (ESGIC) 50-325-40 mg tablet 1 tablet 03-12 10:45: 00 03-12 10:51 :00 No 1{tbl} 1 tablet, Oral, ONCE, 1 dose, On Sun03/12/24 at 0545, NICOLASA [facility] metoclopram farzana HCl (REGLAN) injection 10 mg 03-12 10:45: 00 03-12 10:52 :00 No 10mg 10 mg, Slow IV Push, ONCE, 1 dose, On Sun03/12/24 at 0545, NICOLASA [facility] iopamidol (ISOVUE 370-500 mL) injection 100 mL 03-12 10:15: 00 03-12 10:15 :00 No [id number] 100mL 100 mL, Intravenou s, ONCE, 1 dose, On Sun03/12/24 at 0515, Routine [facility] ketorolac (TORADOL) injection 30 mg 03-12 10:00: 00 03-12 09:01 :00 No 30mg 30 mg, Slow IV Push, ONCE, 1 dose, On Sun03/12/24 at 0500, Routine [facility] NaCl 0.9% (NS) IV infusion 1,000 mL 03-12 09:45: 00 03-12 10:39 :00 No 1000mL at 999 mL/hr, Intravenou s, ONCE, 1 dose, On Sun03/12/24 at 0445, Routine [facility] ondansetron (ZOFRAN (PF)) injection 4 mg 03-12 09:00: 00 03-12 09:01 :00 No 4mg 4 mg, Slow IV Push, ONCE, 1 dose, On Sun03/12/24 at 0400, NICOLASA [facility] butalbital- acetaminoph en-caff 50-325-40 mg tablet 03-12 00:00: 00 Yes [id number] 1{tbl} Take 1 tablet by mouth every 6 (six) hours as needed (Headache) . [facility] dicyclomine 20 mg tablet 03-12 00:00: 00 Yes [id number] 20mg Take 1 tablet by mouth every 6 (six) hours as needed for Abdominal pain. [facility] metoclopram farzana HCl 10 mg tablet 03-12 00:00: 00 Yes [id number] 10mg Take 1 tablet by mouth every 6 (six) hours. [facility] ondansetron HCl 4 mg tablet 03-06 00:00: 00 Yes 1mg Darryl Waggoner iopamidol (ISOVUE 370-500 mL) injection 85 mL 02-02 11:00: 00 02-02 11:00 :00 No [id number] 85mL 85 mL, Intravenou s, ONCE, 1 dose, On Sun02/03/24 at 0600, Routine [facility] FENTanyl PF (SUBLIMAZE (PF)) injection 50 mcg 02-02 10:30: 00 02-02 09:52 :00 No 50ug 50 mcg, Slow IV Push, ONCE, 1 dose, On Sun02/03/24 at 0530, Routine [facility] metoclopram farzana HCl (REGLAN) injection 10 mg 02-02 09:30: 00 02-02 09:52 :00 No 10mg 10 mg, Slow IV Push, ONCE, 1 dose, On Sun02/03/24 at 0430, NICOLASA [facility] pantoprazol e (PROTONIX) injection 40 mg 02-02 09:30: 00 02-02 09:53 :00 No 40mg 40 mg, Slow IV Push, ONCE, 1 dose, On Sun02/03/24 at 0430 [facility] dicyclomine 20 mg tablet 02-02 00:00: 00 Yes [id number] 20mg Take 1 tablet by mouth every 6 (six) hours as needed for Abdominal pain. [facility] metoclopram farzana HCl 10 mg tablet 02-02 00:00: 00 Yes [id number] 10mg Take 1 tablet by mouth every 6 (six) hours. [facility] pantoprazol e (PROTONIX) 40 mg EC tablet 02-02 00:00: 00 Yes [id number] 40mg Take 1 tablet by mouth in the morning. [facility] loratadine (CLARITIN) tablet 10 mg 01-01 06:30: 00 01-01 18:29 :00 No 10mg 10 mg, Oral, ONCE, 1 dose, On Sun01/02/24 at 0130, NICOLASA [facility] azithromyci n (ZITHROMAX) tablet 500 mg 01-01 05:45: 00 01-01 05:39 :00 No 500mg 500 mg, Oral, ONCE, 1 dose, On Sun01/02/24 at 0045, NICOLASA
Re ason for Anti-Infec tive: Documented Infection< br>Documen zoila Infection Site: HEENT
D uration of Therapy: Once (ED) [facility] azithromyci n (ZITHROMAX Z-RAMESH) 250 mg tablet 01-01 00:00: 00 Yes [id number] 500mg Take 2 tablets by mouth SEE-INSTRU CTIONS. Take 500 mg day 1, then 250 mg days 2 to 5. [facility] loratadine- pseudoephed rine (CLARITIN-D 24 HOUR) 10-240 mg per 24 hr tablet 01-01 00:00: 00 Yes [id number] 1{tbl} Take 1 tablet by mouth in the morning. [facility] dextrometho rphan-guaif enesin 10-100 mg/5 mL solution 01-01 00:00: 00 Yes [id number] 10mL Take 10 mL by mouth every 6 (six) hours as needed for Cough. [facility] butalbital- acetaminoph en-caff (ESGIC) 50-325-40 mg tablet 1 tablet 12-25 09:15: 00 12-25 09:09 :00 No 1{tbl} 1 tablet, Oral, ONCE, 1 dose, On Sun12/26/23 at 0415, NICOLASA [facility] butalbital- acetaminoph en-caff 50-325-40 mg tablet 12-25 00:00: 00 Yes [id number] 1{tbl} Take 1 tablet by mouth every 6 (six) hours as needed (Headache) . [facility] ketorolac (TORADOL) injection 30 mg 11-20 17:15: 00 11-20 16:28 :00 No 30mg 30 mg, Slow IV Push, ONCE, 1 dose, On Sun11/20/23 at 1115, NICOLASA [facility] iopamidol (ISOVUE 370-500 mL) injection 80 mL 11-20 14:30: 00 11-20 14:45 :00 No [id number] 80mL 80 mL, Intravenou s, ONCE, 1 dose, On Sun11/20/23 at 0845, Routine [facility] NaCl 0.9% (NS) bolus infusion 1,000 mL 11-20 14:15: 00 11-20 16:26 :00 No 1000mL at 999 mL/hr, 1,000 mL, IV Infusion, ONCE, 1 dose, On Sun11/20/23 at 0815, STAT [facility] cephALEXin (KEFLEX) 500 mg capsule 11-20 00:00: 00 Yes [id number] 500mg Take 1 capsule by mouth in the morning and 1 capsule at noon and 1 capsule in the evening. [facility] ondansetron 4 mg disintegrat ing tablet 11-20 00:00: 00 Yes [id number] 4mg Take 1 tablet by mouth every 4 (four) hours as needed for Nausea and Vomiting (N/V). [facility] naproxen 500 mg tablet 11-20 00:00: 00 12-01 05:59 :00 No [id number] 500mg Take 1 tablet by mouth in the morning and 1 tablet in the evening. Take with meals. Do all this for 10 days. [facility] maalox:diph enhydrAMINE :lidocaine 2 % viscous 1:1:1 ([facility]) oral suspension 15 mL 11-12 07:00: 00 11-12 06:55 :00 No 15mL 15 mL, Oral, ONCE, 1 dose, On Sun11/12/23 at 0100, Routine [facility] ondansetron (ZOFRAN-ODT ) disintegrat ing tablet 4 mg 11-12 07:00: 00 11-12 06:16 :00 No 4mg 4 mg, Oral, ONCE, 1 dose, On Sun11/12/23 at 0100, Routine [facility] benzonatate 200 mg capsule 10-27 00:00: 00 Yes [id number] 200mg Take 1 capsule by mouth 3 (three) times daily as needed for Cough for up to 20 doses. [facility] ibuprofen 600 mg tablet 10-27 00:00: 00 Yes [id number] 600mg Take 1 tablet by mouth every 6 (six) hours as needed for Pain (scale 4-6). [facility] ondansetron 4 mg disintegrat ing tablet 10-27 00:00: 00 11-20 00:00 :00 No [id number] 4mg Take 1 tablet by mouth every 8 (eight) hours as needed for Nausea and Vomiting (N/V). [facility] lactulose (CEPHULAC) solution 30 mL 2022-10 01:45: 00 09-09 02:36 :00 No 30mL 30 mL, Oral, ONCE, 1 dose, On 09/08/23 at 1945, NICOLASA [facility] dexamethaso ne (DECADRON PHOSPHATE) injection 10 mg 2022-10 01:30: 00 09-09 02:40 :00 No 10mg 10 mg, Oral, ONCE, 1 dose, On 09/08/23 at 1930, Routine [facility] ketorolac (TORADOL) injection 30 mg 2022-10 01:30: 00 09-09 02:40 :00 No 30mg 30 mg, Intramuscu lar, ONCE, 1 dose, On 09/08/23 at 1930, Routine [facility] ketorolac 10 mg tablet 2022-10 00:00: 00 11-12 00:00 :00 No [id number] 10mg Take 1 tablet by mouth every 6 (six) hours as needed for Pain (scale 7-10). [facility] glycerin/mi neral oil, AGLO ENEMA, Enem 2022-10 00:00: 00 11-12 00:00 :00 No [id number] 225mL Insert 225 mL into rectum as needed for Constipati on. [facility] cefdinir 300 mg capsule 2022-10 00:00: 00 09-16 05:59 :00 No [id number] 300mg Take 1 capsule by mouth every 12 (twelve) hours for 7 days. [facility] lactulose 10 gram/15 mL solution 2022-10 00:00: 00 09-14 05:59 :00 No [id number] 15mL Take 15 mL by mouth in the morning for 5 days. [facility] HYDROcodone -acetaminop hen (NORCO 5) 5-325 mg tablet 1 tablet 2022-10 13:15: 00 09-07 13:33 :00 No 1{tbl} 1 tablet, Oral, ONCE, 1 dose, On Sun09/07/23 at 0715, [facility] diazePAM (VALIUM) tablet 5 mg 2022-10 13:15: 00 09-07 13:33 :00 No 5mg 5 mg, Oral, ONCE, 1 dose, On Sun09/07/23 at 0715, [facility] dexamethaso ne sod phos PF injection 10 mg 2022-10 13:15: 00 09-07 13:33 :00 No 10mg 10 mg, Oral, ONCE, 1 dose, On Sun09/07/23 at 0715, 1 mL [facility] methocarbam oL 750 mg tablet 2022-10 00:00: 00 11-12 00:00 :00 No [id number] 750mg Take 1 tablet by mouth every 6 (six) hours as needed for Pain (scale 1-3). [facility] ondansetron (ZOFRAN (PF)) injection 4 mg 2022-10 02:00: 00 09-04 02:30 :00 No 4mg 4 mg, Slow IV Push, ONCE, 1 dose, On Sun09/03/23 at 1999, [facility] meclizine (TRAVEL-EAS E (MECLIZINE) ) tablet 50 mg 2022-10 02:00: 00 09-04 02:30 :00 No 50mg 50 mg, Oral, ONCE, 1 dose, On Sun09/03/23 at 1999, [facility] ondansetron (ZOFRAN) 4 mg tablet 2022-10 00:00: 00 Yes [id number] 4mg Take 1 tablet by mouth every 8 (eight) hours as needed for Nausea and Vomiting (N/V). [facility] meclizine 25 mg tablet 2022-10 00:00: 00 11-12 00:00 :00 No [id number] 25mg Take 1 tablet by mouth every 6 (six) hours. [facility] ondansetron (ZOFRAN-ODT ) disintegrat ing tablet 4 mg 2022-10 08:30: 00 07-26 07:45 :00 No 4mg 4 mg, Oral, ONCE, 1 dose, On Ashley 07/26/23 at 0330, Routine [facility] proMETHazin e 25 mg tablet 2022-10 00:00: 00 09-03 00:00 :00 No [id number] 12.5mg Take 0.5 tablets by mouth every 6 (six) hours as needed for Nausea and Vomiting (N/V). [facility] loratadine 10 mg tablet 2022-10 00:00: 00 Yes [id number] 10mg Take 1 tablet by mouth at bedtime as needed for Allergies or Runny nose. [facility] albuterol 90 mcg/actuati on inhaler 2022-10 00:00: 00 Yes [id number] 2{puff} Inhale 2 Puffs every 4 (four) hours as needed for Wheezing or Shortness of Breath. [facility] benzonatate 200 mg capsule 2022-10 00:00: 00 11-12 00:00 :00 No [id number] 200mg Take 1 capsule by mouth 3 (three) times daily as needed for Cough. [facility] fluticasone propionate 50 mcg/actuati on nasal spray 2022-10 00:00: 00 11-12 00:00 :00 No [id number] 2{spray } Use 2 Sprays in each nostril in the morning. [facility] predniSONE 20 mg tablet 2022-10 00:00: 00 07-31 04:59 :00 No [id number] 40mg Take 2 tablets by mouth in the morning for 5 days. [facility] TAKE 1 TABLET DAILY. 2022-10 00:00: 00 01-30 00:00 :00 No 10 Darryl Waggoner ibuprofen 800 mg tablet 9- 00:00: 00 11-12 00:00 :00 No [id number] 800mg Take 1 tablet by mouth every 8 (eight) hours. [facility] methylPREDN ISolone sodium succinate (SOLU-MEDRO L) injection 125 mg 06-24 17:00: 00 06-24 11:35 :44 No 125mg 125 mg, Intramuscu lar, Q6H, First dose on Sun06/24/23 at 1200, Until Discontinu ed, Routine [facility] gabapentin 300 mg capsule 06-24 00:00: 00 11-12 00:00 :00 No [id number] 300mg Take 1 capsule by mouth in the morning and 1 capsule at noon and 1 capsule in the evening. [facility] codeine-gua ifenesin (ROBITUSSIN AC) 10-100 mg/5 mL oral solution 10 mL 06-18 06:15: 00 06-18 06:23 :00 No 10mL 10 mL, Oral, ONCE, 1 dose, On Sun06/18/23 at 0115, NICOLASA [facility] azithromyci n (ZITHROMAX) tablet 500 mg 06-18 06:15: 00 06-18 06:24 :00 No 500mg 500 mg, Oral, ONCE, 1 dose, On Sun06/18/23 at 0115, NICOLASA
Re ason for Anti-Infec tive: Documented Infection< br>Documen zoila Infection Site: Respirator y
Durat ion of Therapy: 7 days [facility] benzonatate 200 mg capsule 06-18 00:00: 00 11-12 00:00 :00 No [id number] 200mg Take 1 capsule by mouth 3 (three) times daily as needed for Cough. [facility] azithromyci n 250 mg tablet 06-18 00:00: 00 09-03 00:00 :00 No [id number] 250mg Take 1 tablet by mouth SEE-INSTRU CTIONS. Take 500 mg day 1, then 250 mg days 2 to 5. [facility] ondansetron 4 mg tablet 06-18 00:00: 00 09-03 00:00 :00 No [id number] 1 or 2 tablets every 8 hours as needed for nausea [facility] TAKE 1 TABLET BY MOUTH TWICE A DAY 06-14 00:00: 00 01-30 00:00 :00 No 500 Darryl Waggoner metroNIDAZO LE (FLAGYL) tablet 500 mg 06-12 08:45: 00 06-12 08:32 :00 No 500mg 500 mg, Oral, ONCE, 1 dose, On Sun06/12/23 at 0345, Routine
Reason for Anti-Infec tive: Empiric Therapy for Suspected Infection< br>Empiric Therapy Site: Pelvic
Duration of therapy: 72 hours [facility] doxycycline hyclate (Vibramycin ) capsule 100 mg 06-12 07:45: 00 06-12 08:32 :00 No 100mg 100 mg, Oral, ONCE, 1 dose, On Sun06/12/23 at 0245, NICOLASA
Re ason for Anti-Infec tive: Documented Infection< br>Documen zoila Infection Site: Pelvic
Duration of Therapy: 14 days [facility] morpHINE (4 mg/mL) injection 4 mg 06-12 07:45: 00 06-12 08:32 :00 No 4mg 4 mg, Slow IV Push, ONCE, 1 dose, On Sun06/12/23 at 0245, STAT [facility] ketorolac (TORADOL) injection 30 mg 06-12 06:15: 00 06-12 05:10 :00 No 30mg 30 mg, Slow IV Push, ONCE, 1 dose, On Sun06/12/23 at 0115, NICOLASA [facility] NaCl 0.9% (NS) bolus infusion 1,000 mL 06-12 06:15: 00 06-12 06:56 :00 No 1000mL at 999 mL/hr, 1,000 mL, IV Infusion, ONCE, 1 dose, On Sun06/12/23 at 0115, STAT [facility] cefTRIAXone (ROCEPHIN) 1,000 mg in NaCl 0.9% (NS) 100 mL MINI-BAG 06-12 05:15: 00 06-12 06:56 :00 No 1000mg 1,000 mg, IV Piggyback, ONCE, 1 dose, On Sun06/12/23 at 0015, Administer over 30 Minutes, 100 mL
Reas on for Anti-Infec tive: Empiric Therapy for Suspected Infection< br>Empiric Therapy Site: Pelvic
Duration of therapy: 72 hours [facility] ondansetron (ZOFRAN (PF)) injection 4 mg 06-12 05:15: 00 06-12 05:10 :00 No 4mg 4 mg, Slow IV Push, ONCE, 1 dose, On Sun06/12/23 at 0015, NICOLASA [facility] ibuprofen 800 mg tablet 06-12 00:00: 00 07-12 00:00 :00 No [id number] 800mg Take 1 tablet by mouth every 8 (eight) hours as needed for Pain (scale 4-6). [facility] TAKE 1 TABLET TWICE DAILY. 05-31 00:00: 00 01-30 00:00 :00 No 100 Darryl Waggoner iopamidol (ISOVUE 370-500 mL) injection 85 mL 05-28 08:30: 00 05-28 08:30 :00 No [id number] 85mL 85 mL, Intravenou s, ONCE, 1 dose, On Sun05/28/23 at 0330, Routine [facility] NaCl 0.9% (NS) bolus infusion 1,000 mL 05-28 08:15: 00 05-28 08:52 :00 No 1000mL at 999 mL/hr, 1,000 mL, IV Infusion, ONCE, 1 dose, On Sun05/28/23 at 0315, STAT [facility] pantoprazol e (PROTONIX) 80 mg in NaCl 0.9% (NS) 20 mL syringe 05-28 08:00: 00 05-28 08:02 :00 No 80mg 80 mg, IV Push, ONCE, 1 dose, On Sun05/28/23 at 0300, Administer over 2 Minutes, 20 mL [facility] ondansetron (ZOFRAN (PF)) injection 4 mg 05-28 06:45: 00 05-28 06:36 :00 No 4mg 4 mg, Slow IV Push, ONCE, 1 dose, On Sun05/28/23 at 0145, NICOLASA [facility] ondansetron 4 mg disintegrat ing tablet 05-28 00:00: 00 09-03 00:00 :00 No [id number] 4mg Take 1 tablet by mouth every 8 (eight) hours as needed for Nausea and Vomiting (N/V). [facility] esomeprazol e (NEXIUM) 40 mg capsule 05-28 00:00: 00 06-12 04:59 :00 No [id number] 40mg Take 1 capsule by mouth daily with breakfast for 14 days. [facility] INSTILL 4 DROPS IN THE AFFECTED EAR(S) TWICE DAILY 7-10 00:00: 00 01-30 00:00 :00 No 301 Darryl Waggoner dexamethaso ne (DECADRON PHOSPHATE) injection 10 mg 03-07 05:00: 00 03-07 03:56 :00 No 10mg 10 mg, Oral, ONCE, 1 dose, On Sun03/07/23 at 0000, Routine [facility] levocetiriz ine 5 mg tablet 03-06 00:00: 00 09-03 00:00 :00 No [id number] 5mg Take 1 tablet by mouth every evening. [facility] butorphanol (STADOL) injection 1 mg 02-02 08:00: 00 02-02 07:18 :00 No 1mg 1 mg, IV Push, ONCE, 1 dose, On Sun02/02/23 at 0300, NICOLASA [facility] ketorolac (TORADOL) injection 30 mg 02-02 07:45: 00 02-02 06:42 :00 No 30mg 30 mg, Slow IV Push, ONCE, 1 dose, On Sun02/02/23 at 0245, Routine [facility] metoclopram farzana HCl (REGLAN) injection 10 mg 02-02 06:45: 00 02-02 06:41 :00 No 10mg 10 mg, Slow IV Push, ONCE, 1 dose, On Sun02/02/23 at 0145, NICOLASA [facility] diphenhydrA MINE (BENADRYL) injection 25 mg 02-02 06:45: 00 02-02 06:43 :00 No 25mg 25 mg, Slow IV Push, ONCE, 1 dose, On Sun02/02/23 at 0145, STAT [facility] butalbital- acetaminoph en-caff 50-325-40 mg tablet 02-02 00:00: 00 11-12 00:00 :00 No [id number] 1{tbl} Take 1 tablet by mouth every 4 (four) hours as needed for Pain (scale 7-10). [facility] ondansetron (ZOFRAN) 4 mg tablet 02-02 00:00: 00 05-28 00:00 :00 No [id number] 4mg Take 1 tablet by mouth every 8 (eight) hours as needed for Nausea and Vomiting (N/V). [facility] iopamidol (ISOVUE 370-500 mL) injection 98 mL 10-24 21:00: 00 10-24 21:00 :00 No [id number] 98mL 98 mL, Intravenou s, ONCE, 1 dose, On Sun10/24/22 at 1500, Routine [facility] morpHINE (4 mg/mL) injection 4 mg 10-24 18:30: 00 10-24 19:03 :00 No 4mg 4 mg, Slow IV Push, ONCE, 1 dose, On Sun10/24/22 at 1230, STAT [facility] ondansetron (ZOFRAN (PF)) injection 4 mg 10-24 18:30: 00 10-24 19:01 :00 No 4mg 4 mg, Slow IV Push, ONCE, 1 dose, On Sun10/24/22 at 1230, NICOLASA [facility] NaCl 0.9% (NS) bolus infusion 1,000 mL 10-24 18:30: 00 10-24 21:40 :00 No 1000mL at 999 mL/hr, 1,000 mL, IV Infusion, ONCE, 1 dose, On Sun10/24/22 at 1230, STAT [facility] ondansetron 4 mg disintegrat ing tablet 10-24 00:00: 00 05-28 00:00 :00 No [id number] 4mg Take 1 tablet by mouth every 8 (eight) hours as needed for Nausea and Vomiting (N/V) for up to 10 doses. [facility] cephALEXin (KEFLEX) 500 mg capsule 10-24 00:00: 00 11-01 05:59 :00 No [id number] 500mg Take 1 capsule by mouth 4 (four) times daily for 7 days. [facility] ibuprofen 600 mg tablet 10-24 00:00: 00 10-30 05:59 :00 No [id number] 600mg Take 1 tablet by mouth every 8 (eight) hours as needed for Pain (scale 4-6) for up to 5 days. [facility] dicyclomine 20 mg tablet 10-24 00:00: 00 10-30 05:59 :00 No [id number] 20mg Take 1 tablet by mouth 3 (three) times daily as needed for Abdominal pain for up to 5 days. [facility] megestroL 40 mg tablet 2021-10 0-07 00:00: 00 11-12 00:00 :00 No [id number] 100 Take by mouth 2 tabs for first 7 days then 1 tablet by mouth daily for next 14 days. [facility] cephALEXin (KEFLEX) 500 mg capsule 2021-10 0-07 00:00: 00 07-29 04:59 :00 No [id number] 100 500mg Take 1 capsule by mouth in the morning and 1 capsule at noon and 1 capsule in the evening. Do all this for 7 days. [facility] iopamidol (ISOVUE 370-500 mL) injection 65 mL 05-19 21:30: 00 05-19 21:45 :00 No [id number] 65mL 65 mL, Intravenou s, ONCE, 1 dose, On Sun05/19/22 at 1645, Routine [facility] ondansetron (ZOFRAN (PF)) injection 4 mg 05-19 21:30: 00 05-19 20:51 :00 No 4mg 4 mg, Slow IV Push, ONCE, 1 dose, On Sun05/19/22 at 1630, NICOLASA [facility] ketorolac (TORADOL) injection 30 mg 05-19 21:30: 00 05-19 20:51 :00 No 30mg 30 mg, Slow IV Push, ONCE, 1 dose, On Sun05/19/22 at 1630, Routine [facility] NaCl 0.9% (NS) bolus infusion 1,000 mL 05-19 21:30: 00 05-19 22:08 :00 No 1000mL at 999 mL/hr, 1,000 mL, IV Infusion, ONCE, 1 dose, On Sun05/19/22 at 1630, NICOLASA [facility] tamsulosin 0.4 mg 24 hr capsule 05-19 00:00: 00 11-12 00:00 :00 No [id number] .4mg Take 1 capsule by mouth at bedtime. [facility] traMADoL 50 mg tablet 05-19 00:00: 00 05-27 04:59 :00 No [id number] 50mg Take 1 tablet by mouth every 6 (six) hours as needed for Pain (scale 4-6) for up to 7 days. Indication s: acute pain [facility] ketorolac (TORADOL) injection 30 mg 05-13 08:45: 00 05-13 07:40 :00 No 30mg 30 mg, Slow IV Push, ONCE, 1 dose, On 05/13/22 at 0345, Routine [facility] ketorolac 10 mg tablet 05-13 00:00: 00 11-12 00:00 :00 No [id number] 10mg Take 1 tablet by mouth every 6 (six) hours as needed for Pain (scale 7-10). [facility] butalbital- acetaminoph en-caff (ESGIC) 50-325-40 mg tablet 2 tablet 04-01 23:15: 00 04-01 22:22 :00 No 2{tbl} 2 tablet, Oral, ONCE NOW, 1 dose, On 04/01/22 at 1815, Routine [facility] ketorolac (TORADOL) injection 30 mg 04-01 23:15: 00 04-01 22:21 :00 No 30mg 30 mg, Intramuscu lar, ONCE, 1 dose, On 04/01/22 at 1815, NICOLASA [facility] No known medications 04-01 18:30: 37 No [facility] No known medications 10-25 13:51: 01 No [facility] cefdinir 300 mg capsule 10-25 00:00: 00 11-02 05:59 :00 No [id number] 300mg Take 1 capsule by mouth 2 (two) times daily for 7 days. [facility] Iron (ferrous sulfate) 325 mg (65 mg iron) tablet 10-21 00:00: 00 No 1(65 mg iron) Iron (ferrous sulfate) 325 mg (65 mg iron) tablet 10-21 00:00: 00 No 1(65 mg iron) Iron (ferrous sulfate) 325 mg (65 mg iron) tablet 10-21 00:00: 00 Yes 1(65 mg iron) Darryl Waggoner medroxyprog esterone 10 mg tablet - 00:00: 00 No 1mg medroxyprog esterone 10 mg tablet - 00:00: 00 No 1mg medroxyprog esterone 10 mg tablet - 00:00: 00 Yes 1mg Darryl Waggoner naproxen 500 mg tablet - 00:00: 00 No 1mg naproxen 500 mg tablet 10-17 00:00: 00 No 1mg naproxen 500 mg tablet 10-17 00:00: 00 Yes 1mg Darryl Waggoner ibuprofen 800 mg tablet 2020-10 00:00: 00 No 1mg ibuprofen 800 mg tablet 2020-10 00:00: 00 No 1mg ibuprofen 800 mg tablet 2020-10 00:00: 00 Yes 1mg Darryl Waggoner No known medications 04-08 21:44: [address] [facility] amitriptyli ne 25 mg tablet 03-03 00:00: 00 No 1mg amitriptyli ne 25 mg tablet 03-03 00:00: 00 No 1mg amitriptyli ne 25 mg tablet 03-03 00:00: 00 Yes 1mg Darryl Waggoner Dose Unknown 3-27 00:00: 00 No Dose Unknown 3-27 00:00: 00 No Dose Unknown 3-27 00:00: 00 Yes Darryl Waggoner Celexa 20 mg tablet 0 2-24 00:00: 00 No 1mg gabapentin 600 mg tablet 0 2-24 00:00: 00 No 1mg Dose Unknown 0 2-24 00:00: 00 No Celexa 20 mg tablet 0 2-24 00:00: 00 No 1mg gabapentin 600 mg tablet 0 2-24 00:00: 00 No 1mg Dose Unknown 0 2-24 00:00: 00 No Celexa 20 mg tablet 0 2-24 00:00: 00 Yes 1mg Darryl Waggoner gabapentin 600 mg tablet 0 2-24 00:00: 00 Yes 1mg Darryl Waggoner Dose Unknown 0 2-24 00:00: 00 Yes Darryl Waggoner Vital Signs Vital Name Observation Time Observation Value Comments S ouremmanuel Systolic blood pressure 2024-03-12 11:00:00 127 mm[Hg] [facility] Diastolic blood pressure 2024-03-12 11:00:00 94 mm[Hg] [facility] Heart rate 2024-03-12 11:00:00 84 /min [facility] Body temperature 2024-03-12 11:00:00 36.61 [facility] Respiratory rate 2024-03-12 11:00:00 14 /min [facility] Oxygen saturation in Arterial blood by Pulse oximetry 2024-03-12 11:00:00 100 /min [facility] Body height 2024-03-12 07:04:00 157.5 cm [facility] Body weight 2024-03-12 07:04:00 87 kg [facility] BMI 2024-03-12 07:04:00 35.08 kg/m2 [facility] Systolic blood pressure 2024-02-03 12:00:00 121 mm[Hg] [facility] Diastolic blood pressure 2024-02-03 12:00:00 82 mm[Hg] [facility] Heart rate 2024-02-03 12:00:00 80 /min [facility] Respiratory rate 2024-02-03 12:00:00 17 /min [facility] Oxygen saturation in Arterial blood by Pulse oximetry 2024-02-03 12:00:00 100 /min [facility] Body temperature 2024-02-03 09:01:00 37.33 Jennifer [facility] Body height 2024-02-03 09:01:00 157.5 cm [facility] Body weight 2024-02-03 09:01:00 81.647 kg [facility] BMI 2024-02-03 09:01:00 32.92 kg/m2 [facility] Systolic blood pressure 2024-01-02 05:38:00 109 mm[Hg] [facility] Diastolic blood pressure 2024-01-02 05:38:00 91 mm[Hg] [facility] Heart rate 2024-01-02 05:38:00 93 /min [facility] Body temperature 2024-01-02 05:38:00 36.28 Jennifer [facility] Respiratory rate 2024-01-02 05:38:00 20 /min [facility] Oxygen saturation in Arterial blood by Pulse oximetry 2024-01-02 05:38:00 99 /min [facility] Body height 2024-01-02 03:25:00 157.5 cm [facility] Body weight 2024-01-02 03:25:00 81.647 kg [facility] BMI 2024-01-02 03:25:00 32.92 kg/m2 [facility] Systolic blood pressure 2023-12-26 08:51:00 115 mm[Hg] [facility] Diastolic blood pressure 2023-12-26 08:51:00 78 mm[Hg] [facility] Heart rate 2023-12-26 08:51:00 98 /min [facility] Body temperature 2023-12-26 08:51:00 37.5 Jennifer [facility] Respiratory rate 2023-12-26 08:51:00 12 /min [facility] Body height 2023-12-26 08:51:00 157.5 cm [facility] Body weight 2023-12-26 08:51:00 85.322 kg [facility] BMI 2023-12-26 08:51:00 34.40 kg/m2 [facility] Oxygen saturation in Arterial blood by Pulse oximetry 2023-12-26 08:51:00 100 /min [facility] Systolic blood pressure 2023-11-20 16:29:00 120 mm[Hg] [facility] Diastolic blood pressure 2023-11-20 16:29:00 89 mm[Hg] [facility] Heart rate 2023-11-20 16:29:00 85 /min [facility] Respiratory rate 2023-11-20 16:29:00 16 /min [facility] Oxygen saturation in Arterial blood by Pulse oximetry 2023-11-20 16:29:00 97 /min [facility] Body temperature 2023-11-20 12:44:00 37.11 Jennifer [facility] Body height 2023-11-20 12:44:00 157.5 cm [facility] Body weight 2023-11-20 12:44:00 82.101 kg [facility] BMI 2023-11-20 12:44:00 33.11 kg/m2 [facility] Systolic blood pressure 2023-11-12 06:09:00 135 mm[Hg] [facility] Diastolic blood pressure 2023-11-12 06:09:00 86 mm[Hg] [facility] Heart rate 2023-11-12 06:09:00 89 /min [facility] Body temperature 2023-11-12 06:09:00 37.28 Jennifer [facility] Respiratory rate 2023-11-12 06:09:00 16 /min [facility] Body height 2023-11-12 06:09:00 157.5 cm [facility] Body weight 2023-11-12 06:09:00 83.553 kg [facility] BMI 2023-11-12 06:09:00 33.69 kg/m2 [facility] Oxygen saturation in Arterial blood by Pulse oximetry 2023-11-12 06:09:00 100 /min [facility] Systolic blood pressure 2023-10-28 02:30:00 121 mm[Hg] [facility] Diastolic blood pressure 2023-10-28 02:30:00 80 mm[Hg] [facility] Heart rate 2023-10-28 02:30:00 124 /min [facility] Body temperature 2023-10-28 02:30:00 38 Jennifer [facility] Respiratory rate 2023-10-28 02:30:00 20 /min [facility] Body weight 2023-10-28 02:30:00 86.183 kg [facility] BMI 2023-10-28 02:30:00 34.75 kg/m2 [facility] Oxygen saturation in Arterial blood by Pulse oximetry 2023-10-28 02:30:00 96 /min [facility] Systolic blood pressure 2023-09-09 02:47:12 116 mm[Hg] [facility] Diastolic blood pressure 2023-09-09 02:47:12 85 mm[Hg] [facility] Heart rate 2023-09-09 02:47:12 78 /min [facility] Body temperature 2023-09-09 02:47:12 36.28 [facility] Respiratory rate 2023-09-09 02:47:12 18 /min [facility] Oxygen saturation in Arterial blood by Pulse oximetry 2023-09-09 02:47:12 98 /min [facility] Body height 2023-09-09 00:30:00 157.5 cm [facility] Body weight 2023-09-09 00:30:00 85.276 kg [facility] BMI 2023-09-09 00:30:00 34.39 kg/m2 [facility] Systolic blood pressure 2023-09-07 12:45:00 119 mm[Hg] [facility] Diastolic blood pressure 2023-09-07 12:45:00 83 mm[Hg] [facility] Heart rate 2023-09-07 12:45:00 101 /min [facility] Body temperature 2023-09-07 12:45:00 37.5 [facility] Respiratory rate 2023-09-07 12:45:00 18 /min [facility] Body height 2023-09-07 12:45:00 157.5 cm [facility] Body weight 2023-09-07 12:45:00 82.872 kg [facility] BMI 2023-09-07 12:45:00 33.42 kg/m2 [facility] Oxygen saturation in Arterial blood by Pulse oximetry 2023-09-07 12:45:00 99 /min [facility] Systolic blood pressure 2023-09-04 04:00:00 112 mm[Hg] [facility] Diastolic blood pressure 2023-09-04 04:00:00 97 mm[Hg] [facility] Heart rate 2023-09-04 04:00:00 94 /min [facility] Body temperature 2023-09-04 04:00:00 36.89 [facility] Oxygen saturation in Arterial blood by Pulse oximetry 2023-09-04 04:00:00 98 /min [facility] Respiratory rate 2023-09-04 03:00:00 17 /min [facility] Body height 2023-09-04 00:54:00 157.5 cm [facility] Body weight 2023-09-04 00:54:00 83.915 kg [facility] BMI 2023-09-04 00:54:00 33.84 kg/m2 [facility] Systolic blood pressure 2023-08-04 04:05:00 139 mm[Hg] [facility] Diastolic blood pressure 2023-08-04 04:05:00 77 mm[Hg] [facility] Heart rate 2023-08-04 04:05:00 104 /min [facility] Body temperature 2023-08-04 04:05:00 36.72 Jennifer [facility] Respiratory rate 2023-08-04 04:05:00 16 /min [facility] Body height 2023-08-04 04:05:00 157.5 cm [facility] Body weight 2023-08-04 04:05:00 85.957 kg [facility] BMI 2023-08-04 04:05:00 34.66 kg/m2 [facility] Oxygen saturation in Arterial blood by Pulse oximetry 2023-08-04 04:05:00 100 /min [facility] Systolic blood pressure 2023-07-26 07:38:00 134 mm[Hg] [facility] Diastolic blood pressure 2023-07-26 07:38:00 95 mm[Hg] [facility] Heart rate 2023-07-26 07:38:00 114 /min [facility] Body temperature 2023-07-26 07:38:00 37.28 Jennifer [facility] Respiratory rate 2023-07-26 07:38:00 18 /min [facility] Body height 2023-07-26 07:38:00 157.5 cm [facility] Body weight 2023-07-26 07:38:00 86.183 kg [facility] BMI 2023-07-26 07:38:00 34.75 kg/m2 [facility] Oxygen saturation in Arterial blood by Pulse oximetry 2023-07-26 07:38:00 99 /min [facility] Systolic blood pressure 2023-07-25 14:52:00 126 mm[Hg] [facility] Diastolic blood pressure 2023-07-25 14:52:00 96 mm[Hg] [facility] Heart rate 2023-07-25 14:52:00 98 /min [facility] Body temperature 2023-07-25 14:52:00 37 [facility] Respiratory rate 2023-07-25 14:52:00 16 /min [facility] Oxygen saturation in Arterial blood by Pulse oximetry 2023-07-25 14:52:00 98 /min [facility] Body height 2023-07-25 12:33:00 157.5 cm [facility] Body weight 2023-07-25 12:33:00 86.456 kg [facility] BMI 2023-07-25 12:33:00 34.86 kg/m2 [facility] Systolic blood pressure 2023-07-12 12:34:00 127 mm[Hg] [facility] Diastolic blood pressure 2023-07-12 12:34:00 86 mm[Hg] [facility] Heart rate 2023-07-12 12:34:00 86 /min [facility] Body temperature 2023-07-12 12:34:00 36.72 [facility] Respiratory rate 2023-07-12 12:34:00 16 /min [facility] Body height 2023-07-12 12:34:00 157.5 cm [facility] Body weight 2023-07-12 12:34:00 86.183 kg [facility] BMI 2023-07-12 12:34:00 34.75 kg/m2 [facility] Oxygen saturation in Arterial blood by Pulse oximetry 2023-07-12 12:34:00 98 /min [facility] Systolic blood pressure 2023-06-24 10:24:00 118 mm[Hg] [facility] Diastolic blood pressure 2023-06-24 10:24:00 89 mm[Hg] [facility] Heart rate 2023-06-24 10:24:00 95 /min [facility] Body temperature 2023-06-24 10:24:00 36.78 [facility] Respiratory rate 2023-06-24 10:24:00 18 /min [facility] Body height 2023-06-24 10:24:00 157.5 cm [facility] Body weight 2023-06-24 10:24:00 89.812 kg [facility] BMI 2023-06-24 10:24:00 36.21 kg/m2 [facility] Oxygen saturation in Arterial blood by Pulse oximetry 2023-06-24 10:24:00 100 /min [facility] Systolic blood pressure 2023-06-18 04:52:00 113 mm[Hg] [facility] Diastolic blood pressure 2023-06-18 04:52:00 82 mm[Hg] [facility] Heart rate 2023-06-18 04:52:00 100 /min [facility] Body temperature 2023-06-18 04:52:00 37.39 [facility] Respiratory rate 2023-06-18 04:52:00 18 /min [facility] Body height 2023-06-18 04:52:00 157.5 cm [facility] Body weight 2023-06-18 04:52:00 89.903 kg [facility] BMI 2023-06-18 04:52:00 36.25 kg/m2 [facility] Oxygen saturation in Arterial blood by Pulse oximetry 2023-06-18 04:52:00 100 /min [facility] Systolic blood pressure 2023-06-12 09:00:00 105 mm[Hg] [facility] Diastolic blood pressure 2023-06-12 09:00:00 74 mm[Hg] [facility] Heart rate 2023-06-12 09:00:00 74 /min [facility] Respiratory rate 2023-06-12 09:00:00 16 /min [facility] Oxygen saturation in Arterial blood by Pulse oximetry 2023-06-12 09:00:00 97 /min [facility] Body temperature 2023-06-12 04:09:00 36.89 [facility] Body height 2023-06-12 04:09:00 157.5 cm [facility] Body weight 2023-06-12 04:09:00 86.183 kg [facility] BMI 2023-06-12 04:09:00 34.75 kg/m2 [facility] Systolic blood pressure 2023-05-28 08:00:00 123 mm[Hg] [facility] Diastolic blood pressure 2023-05-28 08:00:00 78 mm[Hg] [facility] Heart rate 2023-05-28 08:00:00 93 /min [facility] Oxygen saturation in Arterial blood by Pulse oximetry 2023-05-28 08:00:00 99 /min [facility] Respiratory rate 2023-05-28 06:00:00 18 /min [facility] Body temperature 2023-05-28 05:37:00 35.72 [facility] Body height 2023-05-28 05:37:00 157.5 cm [facility] Body weight 2023-05-28 05:37:00 87.136 kg [facility] BMI 2023-05-28 05:37:00 35.14 kg/m2 [facility] Systolic blood pressure 2023-03-07 03:59:00 122 mm[Hg] [facility] Diastolic blood pressure 2023-03-07 03:59:00 77 mm[Hg] [facility] Heart rate 2023-03-07 03:59:00 97 /min [facility] Body temperature 2023-03-07 03:59:00 36.67 [facility] Respiratory rate 2023-03-07 03:59:00 18 /min [facility] Body height 2023-03-07 03:59:00 157.5 cm [facility] Body weight 2023-03-07 03:59:00 79.379 kg [facility] BMI 2023-03-07 03:59:00 32.01 kg/m2 [facility] Oxygen saturation in Arterial blood by Pulse oximetry 2023-03-07 03:59:00 99 /min [facility] Heart rate 2023-02-02 07:48:00 73 /min [facility] Oxygen saturation in Arterial blood by Pulse oximetry 2023-02-02 07:48:00 98 /min [facility] Systolic blood pressure 2023-02-02 07:00:00 122 mm[Hg] [facility] Diastolic blood pressure 2023-02-02 07:00:00 79 mm[Hg] [facility] Respiratory rate 2023-02-02 07:00:00 15 /min [facility] Body temperature 2023-02-02 06:07:00 36.94 [facility] Body height 2023-02-02 06:07:00 157.5 cm [facility] Body weight 2023-02-02 06:07:00 79.379 kg [facility] BMI 2023-02-02 06:07:00 32.01 kg/m2 [facility] Systolic blood pressure 2022-10-24 21:42:00 114 mm[Hg] [facility] Diastolic blood pressure 2022-10-24 21:42:00 74 mm[Hg] [facility] Heart rate 2022-10-24 21:42:00 72 /min [facility] Respiratory rate 2022-10-24 21:42:00 16 /min [facility] Oxygen saturation in Arterial blood by Pulse oximetry 2022-10-24 21:42:00 99 /min [facility] Body temperature 2022-10-24 18:03:00 37.33 [facility] Body height 2022-10-24 18:03:00 157.5 cm [facility] Body weight 2022-10-24 18:03:00 79.379 kg [facility] BMI 2022-10-24 18:03:00 32.01 kg/m2 [facility] Systolic blood pressure 2022-07-21 12:46:00 115 mm[Hg] [facility] Diastolic blood pressure 2022-07-21 12:46:00 83 mm[Hg] [facility] Heart rate 2022-07-21 12:46:00 82 /min [facility] Body temperature 2022-07-21 12:46:00 36.89 [facility] Respiratory rate 2022-07-21 12:46:00 18 /min [facility] Body weight 2022-07-21 12:46:00 78.019 kg [facility] BMI 2022-07-21 12:46:00 31.46 kg/m2 [facility] Oxygen saturation in Arterial blood by Pulse oximetry 2022-07-21 12:46:00 99 /min [facility] Systolic blood pressure 2022-05-19 22:00:00 128 mm[Hg] [facility] Diastolic blood pressure 2022-05-19 22:00:00 68 mm[Hg] [facility] Heart rate 2022-05-19 22:00:00 78 /min [facility] Body temperature 2022-05-19 22:00:00 36.78 [facility] Respiratory rate 2022-05-19 22:00:00 18 /min [facility] Oxygen saturation in Arterial blood by Pulse oximetry 2022-05-19 22:00:00 100 /min [facility] Body height 2022-05-19 20:31:00 157.5 cm [facility] Body weight 2022-05-19 20:31:00 78.019 kg [facility] BMI 2022-05-19 20:31:00 31.46 kg/m2 [facility] Heart rate 2022-05-13 08:30:00 83 /min [facility] Oxygen saturation in Arterial blood by Pulse oximetry 2022-05-13 08:30:00 99 /min [facility] Systolic blood pressure 2022-05-13 08:00:00 111 mm[Hg] [facility] Diastolic blood pressure 2022-05-13 08:00:00 80 mm[Hg] [facility] Body temperature 2022-05-13 07:05:00 37 [facility] Respiratory rate 2022-05-13 07:05:00 18 /min [facility] Body height 2022-05-13 07:05:00 157.5 cm [facility] Body weight 2022-05-13 07:05:00 76.658 kg [facility] BMI 2022-05-13 07:05:00 30.91 kg/m2 [facility] Systolic blood pressure 2022-04-01 21:47:00 124 mm[Hg] [facility] Diastolic blood pressure 2022-04-01 21:47:00 84 mm[Hg] [facility] Heart rate 2022-04-01 21:47:00 89 /min [facility] Body temperature 2022-04-01 21:47:00 37.22 [facility] Respiratory rate 2022-04-01 21:47:00 22 /min [facility] Body weight 2022-04-01 21:47:00 77.111 kg [facility] BMI 2022-04-01 21:47:00 29.18 kg/m2 [facility] Oxygen saturation in Arterial blood by Pulse oximetry 2022-04-01 21:47:00 99 /min [facility] Systolic blood pressure 2021-10-25 19:42:00 103 mm[Hg] [facility] Diastolic blood pressure 2021-10-25 19:42:00 74 mm[Hg] [facility] Heart rate 2021-10-25 19:42:00 94 /min [facility] Body temperature 2021-10-25 19:42:00 37.67 [facility] Respiratory rate 2021-10-25 19:42:00 18 /min [facility] Body weight 2021-10-25 19:42:00 70.761 kg [facility] BMI 2021-10-25 19:42:00 26.78 kg/m2 [facility] Oxygen saturation in Arterial blood by Pulse oximetry 2021-10-25 19:42:00 99 /min [facility] BP Systolic 2024-03-18 13:49:00 124 mm[Hg] Step hen F [facility]il[facility] BP Diastolic 2024-03-18 13:49:00 80 mm[Hg] Osito phen F Edil[facility] Weight Measured 2024-03-18 13:49:00 186.20 pounds Darryl F Edilson Height Measured 2024-03-18 13:49:00 63.00 inches Darryl F [facility]il[facility] Body Temperature 2024-03-18 13:49:00 98.20 degrees Darryl F Edilson Heart Rate 2024-03-18 13:49:00 87.00 /min Beatris en F [facility]il[facility] Respiratory Rate 2024-03-18 13:49:00 18.00 /min Darryl F Edilson BP Systolic 2023-12-17 08:18:00 118 mm[Hg] Step [facility] BP Diastolic 2023-12-17 08:18:00 81 mm[Hg] Osito phen F Edislon Weight Measured 2023-12-17 08:18:00 184.60 pounds Darryl F Edilson Height Measured 2023-12-17 08:18:00 63.00 inches Darryl F [facility]il[facility] Body Temperature 2023-12-17 08:18:00 98.20 degrees Darryl F Edilson Heart Rate 2023-12-17 08:18:00 62.00 /min [facility] Respiratory Rate 2023-12-17 08:18:00 Darryl F Edilson BP Systolic 2023-11-14 13:15:00 116 mm[Hg] Step hen [facility] BP Diastolic 2023-11-14 13:15:00 83 mm[Hg] Os[facility] phen F [facility]il[facility] Weight Measured 2023-11-14 13:15:00 181.20 pounds Darryl F Edilson Height Measured 2023-11-14 13:15:00 63.00 inches Darryl F Edilsno Body Temperature 2023-11-14 13:15:00 98.50 degrees Darryl F Edilson Heart Rate 2023-11-14 13:15:00 97.00 /min [facility]ris en [facility]il[facility] Respiratory Rate 2023-11-14 13:15:00 18.00 /min Darryl F Edilson BP Systolic 2023-08-28 16:47:00 129 mm[Hg] Step hen [facility] BP Diastolic 2023-08-28 16:47:00 97 mm[Hg] Osito phen F Edil[facility] Weight Measured 2023-08-28 16:47:00 189.40 pounds Darryl F Edilson Height Measured 2023-08-28 16:47:00 63.00 inches Darryl F [facility]il[facility] Body Temperature 2023-08-28 16:47:00 98.60 degrees Darryl F Edilson Heart Rate 2023-08-28 16:47:00 108.00 /min Step [facility] Respiratory Rate 2023-08-28 16:47:00 Darryl F Edilson BP Systolic 2023-07-02 14:04:00 109 mm[Hg] Step hen [facility] BP Diastolic 2023-07-02 14:04:00 74 mm[Hg] Os[facility] phen [facility]il[facility] Weight Measured 2023-07-02 14:04:00 188.80 pounds Darryl F Edilson Height Measured 2023-07-02 14:04:00 63.00 inches Darryl F Edilson Body Temperature 2023-07-02 14:04:00 98.30 degrees Darryl F Edilosn Heart Rate 2023-07-02 14:04:00 85.00 /min Beatris en F [facility]il[facility] Respiratory Rate 2023-07-02 14:04:00 18.00 /min Darryl F Edilson BP Systolic 2023-06-26 13:23:00 119 mm[Hg] Step hen [facility] BP Diastolic 2023-06-26 13:23:00 81 mm[Hg] Osito phen F Edilson Weight Measured 2023-06-26 13:23:00 188.20 pounds Darryl F Edilson Height Measured 2023-06-26 13:23:00 63.00 inches Darryl F Edilson Body Temperature 2023-06-26 13:23:00 98.20 degrees Darryl F Edilson Heart Rate 2023-06-26 13:23:00 126.00 /min Step hen F Edilson Respiratory Rate 2023-06-26 13:23:00 20.00 /min Darryl F Edilson BP Systolic 2023-06-12 11:18:00 128 mm[Hg] Step hen F Edilson BP Diastolic 2023-06-12 11:18:00 88 mm[Hg] Osito phen F Edilson Weight Measured 2023-06-12 11:18:00 192.60 pounds Darryl F Edilson Height Measured 2023-06-12 11:18:00 63.00 inches Darryl F Edilson Body Temperature 2023-06-12 11:18:00 98.20 degrees Darryl F Edilson Heart Rate 2023-06-12 11:18:00 85.00 /min Beatris en F Edilson Respiratory Rate 2023-06-12 11:18:00 19.00 /min Darryl F Edilson BP Systolic 2023-05-28 08:14:00 132 mm[Hg] Step hen F Edilson BP Diastolic 2023-05-28 08:14:00 84 mm[Hg] Osito phen F Edilson Weight Measured 2023-05-28 08:14:00 193.20 pounds Darryl F Edilson Height Measured 2023-05-28 08:14:00 63.00 inches Darryl F Edilson Body Temperature 2023-05-28 08:14:00 98.20 degrees Darryl F Edilson Heart Rate 2023-05-28 08:14:00 100.00 /min Step hen F Edilson Respiratory Rate 2023-05-28 08:14:00 19.00 /min Darryl F Edilson BP Systolic 2023-04-30 13:53:00 116 mm[Hg] Step hen F Edilson BP Diastolic 2023-04-30 13:53:00 82 mm[Hg] Osito phen F Edilson Weight Measured 2023-04-30 13:53:00 191.80 pounds Darryl F Edilson Height Measured 2023-04-30 13:53:00 63.00 inches Darryl F Edilson Body Temperature 2023-04-30 13:53:00 98.20 degrees Darryl F Edilson Heart Rate 2023-04-30 13:53:00 98.00 /min Beatris en F Edilson Respiratory Rate 2023-04-30 13:53:00 Darryl F Edilson BP Systolic 2023-04-23 08:58:00 115 mm[Hg] Step hen F Edilson BP Diastolic 2023-04-23 08:58:00 82 mm[Hg] Osito phen F Edilson Weight Measured 2023-04-23 08:58:00 191.20 pounds Darryl Waggoner Height Measured 2023-04-23 08:58:00 63.00 inches Darryl Waggoner Body Temperature 2023-04-23 08:58:00 98.70 degrees Darryl F Edilson Heart Rate 2023-04-23 08:58:00 100.00 /min Step hen F Edilson Respiratory Rate 2023-04-23 08:58:00 18.00 /min Darryl F Edilson BP Systolic 2022-09-25 10:10:00 117 mm[Hg] Step hen F Edilson BP Diastolic 2022-09-25 10:10:00 80 mm[Hg] Osito phen F Edilson Weight Measured 2022-09-25 10:10:00 174.00 pounds Darryl Waggoner Height Measured 2022-09-25 10:10:00 63.00 inches Darryl Waggoner Body Temperature 2022-09-25 10:10:00 98.40 degrees Darryl Waggoner Heart Rate 2022-09-25 10:10:00 100.00 /min Step hen F Edilson Respiratory Rate 2022-09-25 10:10:00 18.00 /min Darryl Waggoner BP Systolic 2022-05-19 08:57:00 110 mm[Hg] BP Diastolic 2022-05-19 08:57:00 78 mm[Hg] Weight Measured 2022-05-19 08:57:00 172.20 pounds Height Measured 2022-05-19 08:57:00 63.00 inches Body Temperature 2022-05-19 08:57:00 98.10 degrees Heart Rate 2022-05-19 08:57:00 97.00 /min Respiratory Rate 2022-05-19 08:57:00 16.00 /min BP Systolic 2021-10-28 13:20:00 112 mm[Hg] BP Diastolic 2021-10-28 13:20:00 76 mm[Hg] Weight Measured 2021-10-28 13:20:00 161.80 pounds Height Measured 2021-10-28 13:20:00 63.00 inches Body Temperature 2021-10-28 13:20:00 97.50 degrees Heart Rate 2021-10-28 13:20:00 95.00 /min Respiratory Rate 2021-10-28 13:20:00 BP Systolic 2021-10-20 11:02:00 93 mm[Hg] BP Diastolic 2021-10-20 11:02:00 65 mm[Hg] Weight Measured 2021-10-20 11:02:00 158.40 pounds Height Measured 2021-10-20 11:02:00 63.00 inches Body Temperature 2021-10-20 11:02:00 98.30 degrees Heart Rate 2021-10-20 11:02:00 92.00 /min Respiratory Rate 2021-10-20 11:02:00 21.00 /min BP Systolic 2021-10-17 14:40:00 98 mm[Hg] BP Diastolic 2021-10-17 14:40:00 67 mm[Hg] Weight Measured 2021-10-17 14:40:00 156.20 pounds Height Measured 2021-10-17 14:40:00 63.00 inches Body Temperature 2021-10-17 14:40:00 98.30 degrees Heart Rate 2021-10-17 14:40:00 106.00 /min Respiratory Rate 2021-10-17 14:40:00 21.00 /min BP Systolic 2021-09-12 15:48:00 106 mm[Hg] BP Diastolic 2021-09-12 15:48:00 74 mm[Hg] Weight Measured 2021-09-12 15:48:00 156.00 pounds Height Measured 2021-09-12 15:48:00 63.00 inches Body Temperature 2021-09-12 15:48:00 98.90 degrees Heart Rate 2021-09-12 15:48:00 89.00 /min Respiratory Rate 2021-09-12 15:48:00 16.00 /min BP Systolic 2021-01-08 10:13:00 115 mm[Hg] BP Diastolic 2021-01-08 10:13:00 57 mm[Hg] Weight Measured 2021-01-08 10:13:00 155.40 pounds Height Measured 2021-01-08 10:13:00 63.00 inches Body Temperature 2021-01-08 10:13:00 99.20 degrees Heart Rate 2021-01-08 10:13:00 91.00 /min Respiratory Rate 2021-01-08 10:13:00 16.00 /min Procedures Procedure Date / Time Performed Performing Clinician Source CT ABDOMEN PELVIS W CONTRAST 2024-03-12 09:15:57 Selene Parra [facility] LIPASE 2024-03-12 09:01:00 Selene Parra [facility] COMP. METABOLIC PANEL ([id number]) 2024-03-12 09:01:00 Selene Parra [facility] CBC WITH DIFF 2024-03-12 09:01:00 Selene Parra [facility] EBV-MONONUCLEOSIS SCREEN 2024-02-03 10:22:00 Funmilayo Parra [facility] CT ABDOMEN PELVIS W CONTRAST 2024-02-03 10:08:28 Selene Parra [facility] POCT TEST 2024-02-03 09:09:00 Selene Parra [facility] COMP. METABOLIC PANEL ([id number]) 2024-02-03 09:06:00 Selene Parra [facility] CBC WITH DIFF 2024-02-03 09:06:00 Selene Parra [facility] URINALYSIS 2024-02-03 09:06:00 Selene Parra [facility] RAPID STREP SCREEN FOR GROUP A 2024-02-03 09:06:00 Selene Parra [facility] LIPASE 2024-02-03 09:06:00 Selene Parra [facility] ASSIGNMENT OF BENEFITS 2024-01-02 04:22:29 Docto r Unassigned, [place] [facility] RAPID STREP SCREEN FOR GROUP A 2024-01-02 04:20:00 Doni Marie [facility] RAPID INFLUENZA A/B 2024-01-02 03:50:00 Ryan Marie [facility] COVID-19 (ID NOW RAPID TESTING) 2024-01-02 03:50:00 Doni Marie [facility] CONSENT/REFUSAL FOR DIAGNOSIS AND TREATMENT 2024-01-02 03:16:29 Doctor Unassigned, [place] [facility] CONSENT/REFUSAL FOR DIAGNOSIS AND TREATMENT 2023-12-26 08:43:59 Doctor Unassigned, [place] [facility] [id number] Colposcopy Cervix Endocervical Curettage 2023-12-17 00:00:00 Darryl Waggoner US OVARY TORSION 2023-11-20 16:01:25 Doni Marie [facility] CT ABDOMEN PELVIS W CONTRAST 2023-11-20 14:40:23 Doni Marie [facility] COMP. METABOLIC PANEL ([id number]) 2023-11-20 13:27:00 Doni Marie [facility] CBC WITH DIFF 2023-11-20 13:27:00 Doni Marie [facility] URINALYSIS 2023-11-20 13:27:00 Doni Marie [facility] POCT TEST 2023-11-20 13:26:00 Ryan Marie [facility] CONSENT/REFUSAL FOR DIAGNOSIS AND TREATMENT 2023-11-20 12:37:06 Doctor Unassigned, [place] [facility] CONSENT/REFUSAL FOR DIAGNOSIS AND TREATMENT 2023-11-12 06:04:20 Doctor Unassigned, [place] [facility] CONSENT/REFUSAL FOR DIAGNOSIS AND TREATMENT 2023-10-28 02:10:42 Doctor Unassigned, [place] [facility] URINALYSIS 2023-09-09 02:35:00 Danie Ontiveros [facility] XR KUB 2023-09-09 01:28:00 Danie Ontiveros [facility] CT LUMBAR SPINE WO CONTRAST 2023-09-09 01:02:05 Danie Ontiveros [facility] CONSENT/REFUSAL FOR DIAGNOSIS AND TREATMENT 2023-09-09 00:05:52 Doctor Unassigned, [place] [facility] POCT TEST 2023-09-07 13:28:00 Juli Srivastava ra [facility] URINALYSIS 2023-09-07 13:27:00 Chayo Srivastava [facility] CONSENT/REFUSAL FOR DIAGNOSIS AND TREATMENT 2023-09-07 12:42:21 Doctor Unassigned, [place] [facility] COMP. METABOLIC PANEL ([id number]) 2023-09-04 02:29:00 Selene Parra [facility] CBC WITH DIFF 2023-09-04 02:29:00 Selene Parra [facility] RAPID INFLUENZA A/B 2023-09-04 02:26:00 Selene Parra [facility] COVID-19 (ID NOW RAPID TESTING) 2023-09-04 02:26:00 Selene Parra [facility] ASSIGNMENT OF BENEFITS 2023-09-04 02:07:25 Docto r Unassigned, [place] [facility] CONSENT/REFUSAL FOR DIAGNOSIS AND TREATMENT 2023-09-04 00:46:16 Doctor Unassigned, [place] [facility] CONSENT/REFUSAL FOR DIAGNOSIS AND TREATMENT 2023-08-04 03:55:32 Doctor Unassigned, [place] [facility] URINALYSIS 2023-07-26 08:52:00 Memo Resendiz [facility] URINALYSIS 2023-07-26 08:20:00 Memo Resendiz [facility] ASSIGNMENT OF BENEFITS 2023-07-26 08:05:43 Docto r Unassigned, [place] [facility] CONSENT/REFUSAL FOR DIAGNOSIS AND TREATMENT 2023-07-26 07:33:52 Doctor Unassigned, [place] [facility] RAPID STREP SCREEN FOR GROUP A 2023-07-25 13:40:00 Danii Arriaga [facility] RAPID INFLUENZA A/B 2023-07-25 13:40:00 Minal Arriaga [facility] COVID-19 (ID NOW RAPID TESTING) 2023-07-25 13:40:00 Danii Arriaga [facility] XR CHEST 2 VW 2023-07-25 13:26:06 Danii Arriaga [facility] ASSIGNMENT OF BENEFITS 2023-07-25 13:17:29 Docto r Unassigned, [place] [facility] CONSENT/REFUSAL FOR DIAGNOSIS AND TREATMENT 2023-07-25 12:29:51 Doctor Unassigned, [place] [facility] XR CHEST 2 VW 2023-07-12 13:13:00 Doni Marie [facility] POCT TEST 2023-07-12 12:56:00 Ryan Marie [facility] CONSENT/REFUSAL FOR DIAGNOSIS AND TREATMENT 2023-07-12 12:27:58 Doctor Unassigned, [place] [facility] [id number] Colposcopy Cervix Uppr/adjcnt Vagina W/cervix Bx 2023-06-26 00:00:00 Darryl Ackerman Edilson [id number] Endometrial Bx W/wo Endocervix Bx W/o Dilat Spx 2023-06-26 00:00:00 Darryl Tyron Waggoner CONSENT/REFUSAL FOR DIAGNOSIS AND TREATMENT 2023-06-24 10:15:34 Doctor Unassigned, [place] [facility] RAPID INFLUENZA A/B 2023-06-18 05:03:00 Michelle Terry [facility] RAPID RSV 2023-06-18 05:03:00 Michelle Terry [facility] COVID-19 (ID NOW RAPID TESTING) 2023-06-18 05:03:00 Michelle Terry [facility] CONSENT/REFUSAL FOR DIAGNOSIS AND TREATMENT 2023-06-18 04:46:39 Doctor Unassigned, [place] [facility] US OVARY TORSION 2023-06-12 08:14:06 [facility] 2023-06-12 05:07:00 Raven Lieberman [facility] COMP. METABOLIC PANEL ([id number]) 2023-06-12 05:02:00 Raven Lieberman [facility] CBC WITH DIFF 2023-06-12 05:02:00 Raven Lieberman [facility] URINALYSIS 2023-06-12 05:02:00 [facility] NOTICE OF PRIVACY PRACTICES 2023-06-12 04:10:01 Doctor Unassigned, [place] [facility] CONSENT/REFUSAL FOR DIAGNOSIS AND TREATMENT 2023-06-12 04:06:29 Doctor Unassigned, [place] [facility] CT ABDOMEN PELVIS W CONTRAST 2023-05-28 07:44:47 Raven Lieberman [facility] POCT TEST 2023-05-28 06:40:00 Raven Lieberman [facility] COMP. METABOLIC PANEL ([id number]) 2023-05-28 06:34:00 Raven Lieberman [facility] CBC WITH DIFF 2023-05-28 06:34:00 Raven Lieberman [facility] URINALYSIS 2023-05-28 06:34:00 Raven Lieberman [facility] CONSENT/REFUSAL FOR DIAGNOSIS AND TREATMENT 2023-05-28 05:25:17 Doctor Unassigned, [place] [facility] [address] Removal Impacted Cerumen Using Irrigation/lavage, Unilateral 2023-04-30 00:00:00 Darryl Waggoner ASSIGNMENT OF BENEFITS 2023-03-07 04:54:51 Docto r Unassigned, [place] [facility] RAPID STREP SCREEN FOR GROUP A 2023-03-07 03:52:00 Hermilo Ricks [facility] CONSENT/REFUSAL FOR DIAGNOSIS AND TREATMENT 2023-03-07 02:58:48 Doctor Unassigned, [place] [facility] BASIC METABOLIC PANEL (NA, K, CL, CO2, GLUCOSE, BUN, CREATININE, CA) 2023-02-02 06:41:00 Selene Parra [facility] CBC WITH DIFF 2023-02-02 06:41:00 Selene Parra [facility] POCT TEST 2023-02-02 06:17:00 Selene Parra [facility] NOTICE OF PRIVACY PRACTICES 2023-02-02 06:00:34 Doctor Unassigned, [place] [facility] CONSENT/REFUSAL FOR DIAGNOSIS AND TREATMENT 2023-02-02 05:59:54 Doctor Unassigned, [place] [facility] CT ABDOMEN PELVIS W CONTRAST 2022-10-24 20:00:18 Suraj Scott [facility] US OVARY TORSION 2022-10-24 19:43:53 Suraj Scott [facility] LIPASE 2022-10-24 18:58:00 Dale Suraj A [facility] COMP. METABOLIC PANEL ([id number]) 2022-10-24 18:58:00 Yeseniarichardson Suraj A [facility] CBC WITH DIFF 2022-10-24 18:58:00 Yeseniarichardson [facility] 2022-10-24 18:58:00 Dale Suraj A [facility] POCT TEST 2022-10-24 18:58:00 Odessa Scott [facility] CBC WITH DIFF 2022-07-21 13:07:00 Hermilo Ricks [facility] POCT TEST 2022-07-21 12:55:00 Jeanine Ricks [facility] URINALYSIS 2022-07-21 12:52:00 Singer [facility] CONSENT/REFUSAL FOR DIAGNOSIS AND TREATMENT 2022-07-21 12:44:40 Doctor Unassigned, [place] [facility] CT ABDOMEN PELVIS W CONTRAST 2022-05-19 21:32:53 Cat Rutledge [facility] LIPASE 2022-05-19 20:49:00 [facility] COMP. METABOLIC PANEL ([id number]) 2022-05-19 20:49:00 Cat Rutledge [facility] CBC WITH DIFF 2022-05-19 20:49:00 Cat Rutledge [facility] URINALYSIS 2022-05-19 20:49:00 Cat Rutledge [facility] POCT TEST 2022-05-19 20:49:00 Paxton Rutledge [facility] URINE DRUG (IMMUNOASSAY) - COMPREHENSIVE DRUG SCREEN W/O REFLEX 2022-05-19 20:49:00 Cat Rutledge [facility] CONSENT/REFUSAL FOR DIAGNOSIS AND TREATMENT 2022-05-19 20:16:10 Doctor Unassigned, [place] [facility] POCT TEST 2022-05-13 07:37:00 Selene Parra [facility] LIPASE 2022-05-13 07:32:00 Selene Parra [facility] COMP. METABOLIC PANEL ([id number]) 2022-05-13 07:32:00 Selene Parra [facility] CBC WITH DIFF 2022-05-13 07:32:00 Selene Parra [facility] URINALYSIS 2022-05-13 07:32:00 Selene Parra [facility] CONSENT/REFUSAL FOR DIAGNOSIS AND TREATMENT 2022-05-13 06:55:55 Doctor Unassigned, [place] [facility] XR ANKLE <3 VW RIGHT 2022-04-01 22:28:50 Deny Rg [facility] URINALYSIS 2022-04-01 22:21:00 Christy Rg [facility] POCT TEST 2022-04-01 22:19:00 Chrisyt Rg [facility] CONSENT/REFUSAL FOR DIAGNOSIS AND TREATMENT 2022-04-01 21:40:47 Doctor Unassigned, [place] [facility] POCT TEST 2021-10-25 19:54:00 Lisa Tran [facility] URINALYSIS 2021-10-25 19:53:00 Lisa Tran [facility] CONSENT/REFUSAL FOR DIAGNOSIS AND TREATMENT 2021-10-25 19:34:46 Doctor Unassigned, [place] [facility] NOTICE OF PRIVACY PRACTICES 2021-10-25 19:34:06 Doctor Unassigned, [place] [facility] Plan of Care Planned Activity Planned Date Details Comments Source Goal Plan of Care Note [code = 20070-7] Goal Plan of Care Note [code = 46287-0] Goal Plan of Care Note [code = 58536-1] Goal Plan of Care Note [code = 04647-5] Goal Plan of Care Note [code = 27855-3] Goal Plan of Care Note [code = 78939-0] Goal Plan of Care Note [code = 85864-8] Goal Plan of Care Note [code = 58651-7] Goal Plan of Care Note [code = 17201-4] Goal Plan of Care Note [code = 99981-5] Goal Plan of Care Note [code = 65502-4] Goal Plan of Care Note [code = 66384-0] Goal Plan of Care Note [code = 96696-6] Goal Plan of Care Note [code = 47092-9] Goal Plan of Care Note [code = 93291-1] Goal Plan of Care Note [code = 78077-8] Goal Plan of Care Note [code = 65477-0] Goal Plan of Care Note [code = 71624-4] Goal Plan of Care Note [code = 74019-1] Goal Plan of Care Note [code = 22859-1] Goal Plan of Care Note [code = 72350-8] Goal Plan of Care Note [code = 80632-4] Goal Plan of Care Note [code = 10596-1] Goal Plan of Care Note [code = 00299-5] Goal Plan of Care Note [code = 59150-9] Encounters Start Date/Time End Date/Time Encounter Type Admission Type Attending [facility] Facility Care Department Encounter ID Source 2024-03-18 13:39:14 2024-03-18 13:39:14 Outpatient [facility] [id number] Darryl Ackerman Edilson 2024-03-18 00:00:00 2024-03-18 00:00:00 Outpatient Visit [facility] [id number] Darryl Ackerman Edilson 2024-03-12 02:06:00 2024-03-12 06:07:00 Emergency X ANTONIETTABIJANDUSTYSELENE [facility] ERT [id number] [facility] 2024-03-12 02:06:00 2024-03-12 06:07:00 Emergency Selene Parra Thor [facility] 1.2.840.114 350.1.13.10 4.2.7.2.686 [id number] [facility] 2024-03-06 11:34:36 2024-03-06 11:34:36 Outpatient [facility] [id number] Darryl Tyron Edilson 2024-03-06 00:00:00 2024-03-06 00:00:00 Outpatient Visit [facility] [id number] Darryl Waggoner 2024-02-03 03:57:00 2024-02-03 07:11:00 Emergency Selene Parra [facility] 1.2.840.114 350.1.13.10 4.2.7.2.686 [id number] [facility] 2024-01-01 22:28:00 2024-01-02 00:44:00 Emergency X DONI MARIE [facility] ERT [id number] [facility] 2024-01-01 22:28:00 2024-01-02 00:44:00 Emergency Doni Marie [facility] 1.2.840.114 350.1.13.10 4.2.7.2.686 [id number] [facility] 2023-12-31 15:24:49 2023-12-31 15:24:49 Outpatient [facility] [id number] Darryl Waggoner 2023-12-26 03:53:00 2023-12-26 05:24:00 Emergency X SELENE PARRA [facility] ERT [id number] [facility] 2023-12-26 03:53:00 2023-12-26 05:24:00 Emergency Selene Parra [facility] 1.2.840.114 350.1.13.10 4.2.7.2.686 [id number] [facility] 2023-12-17 08:09:17 2023-12-17 08:09:17 Outpatient [facility] [id number] Darryl Waggoner 2023-11-20 06:45:00 2023-11-20 10:52:00 Emergency X DONI MARIE [facility] ERT [id number] [facility] 2023-11-20 06:45:00 2023-11-20 10:52:00 Emergency Doni Marie [facility] 1.2.840.114 350.1.13.10 4.2.7.2.686 [id number] [facility] 2023-11-14 13:08:33 2023-11-14 13:08:33 Outpatient [facility] [id number] Darryl Waggoner 2023-11-12 00:13:00 2023-11-12 01:10:00 Emergency X ATIFJULIRA [facility] ERT [id number] [facility] 2023-11-12 00:13:00 2023-11-12 01:10:00 Emergency Chayo Srivastava [facility] 1.2.840.114 350.1.13.10 4.2.7.2.686 [id number] [facility] 2023-10-27 20:33:00 2023-10-27 20:58:00 Emergency X Kavita OJEDA [facility] ERT [id number] [facility] 2023-10-27 20:33:00 2023-10-27 20:58:00 Emergency Kavita Ojeda [facility] 1.2.840.114 350.1.13.10 4.2.7.2.686 [id number] [facility] 2023-09-17 09:14:32 2023-09-17 09:14:32 Outpatient [facility] [id number] Darryl Waggoner 2023-09-08 18:32:00 2023-09-08 21:46:00 Emergency X CHRISTY RG [facility] ERT [id number] [facility] 2023-09-08 18:32:00 2023-09-08 21:46:00 Emergency Danie Ontiveros Pamala G [facility] 1.2.840.114 350.1.13.10 4.2.7.2.686 [id number] [facility] 2023-09-07 06:47:00 2023-09-07 08:22:00 Emergency X CHAYO SRIVASTAVA [facility] ERT [id number] [facility] 2023-09-07 06:47:00 2023-09-07 08:22:00 Emergency Chayo Srivastava [facility] 1.2.840.114 350.1.13.10 4.2.7.2.686 [id number] [facility] 2023-09-03 18:57:00 2023-09-03 22:03:00 Emergency X SELENE PARRA [facility] ERT [id number] [facility] 2023-09-03 18:57:00 2023-09-03 22:03:00 Emergency Selene Parra [facility] 1.2.840.114 350.1.13.10 4.2.7.2.686 [id number] [facility] 2023-08-28 16:44:07 2023-08-28 16:44:07 Outpatient [facility] [id number] Darryl F Edilson 2023-08-03 23:07:00 2023-08-04 01:08:00 Emergency X Kavita OJEDA [facility] ERT [id number] [facility] 2023-08-03 23:07:00 2023-08-04 01:08:00 Emergency Rusty Kavita Rowe [facility] 1.2.840.114 350.1.13.10 4.2.7.2.686 [id number] [facility] 2023-07-26 02:41:00 2023-07-26 04:25:00 Emergency X MAUREEN MEMO [facility] ERT [id number] [facility] 2023-07-26 02:41:00 2023-07-26 04:25:00 Emergency Memo Resendiz [facility] 1.2.840.114 350.1.13.10 4.2.7.2.686 [id number] [facility] 2023-07-25 07:36:00 2023-07-25 10:13:00 Emergency X DANII ARRIAGA [facility] ERT [id number] [facility] 2023-07-25 07:36:00 2023-07-25 10:13:00 Emergency Rose Hoff Roxanne [facility] 1.2840.114 350.1.13.10 4.2.7.2.686 [id number] [facility] 2023-07-24 08:14:55 2023-07-24 08:14:55 Outpatient [facility] [id number] Darryl Waggoner 2023-07-12 07:35:00 2023-07-12 09:00:00 Emergency X DONI MARIE [facility] ERT [id number] [facility] 2023-07-12 07:35:00 2023-07-12 09:00:00 Emergency Doni Marie [facility] 1.840.114 350.1.13.10 4.2.7.2.686 [id number] [facility] 2023-07-02 13:54:28 2023-07-02 13:54:28 Outpatient [facility] [id number] Darryl Waggoner 2023-06-26 13:20:40 2023-06-26 13:20:40 Outpatient [facility] [id number] Darryl Waggoner 2023-06-24 05:33:00 2023-06-24 06:50:00 Emergency X SELENE PARRA [facility] ERT [id number] [facility] 2023-06-24 05:33:00 2023-06-24 06:50:00 Emergency Selene Parra [facility] 1.840.114 350.1.13.10 4.2.7.2.686 [id number] [facility] 2023-06-20 16:08:31 2023-06-20 16:08:31 Outpatient [facility] [id number] Darryl Waggoner 2023-06-17 23:54:00 2023-06-18 01:35:00 Emergency X MICHELLE TERRY [facility] ERT [id number] [facility] 2023-06-17 23:54:00 2023-06-18 01:35:00 Emergency Michelle Terry [facility] [id number] 350.1.13.10 [id number] [id number] [facility] 2023-06-16 10:56:55 2023-06-16 10:56:55 Outpatient [facility] 09 Darryl Waggoner 2023-06-14 13:35:05 2023-06-14 13:35:05 Outpatient [facility] [id number] Darryl Waggoner 2023-06-12 11:11:07 2023-06-12 11:11:07 Outpatient [facility] [id number] Darryl Ackerman Edilson 2023-06-11 23:25:00 2023-06-12 04:49:00 Emergency X RAVEN LIEBERMAN [facility] ERT [id number] [facility] 2023-06-11 23:25:00 2023-06-12 04:49:00 Emergency Raven Lieberman [facility] 1.2.840.114 350.1.13.10 4.2.7.2.686 [id number] [facility] 2023-06-05 11:34:51 2023-06-05 11:34:51 Outpatient SFA SFA [id number] Darryl Waggoner 2023-05-28 08:05:43 2023-05-28 08:05:43 Outpatient SFA SFA [id number] 0814 Darryl Waggoner 2023-05-28 00:40:00 2023-05-28 04:06:00 Emergency X RAVEN LIEBERMAN [facility] ERT [id number] [facility] 2023-05-28 00:40:00 2023-05-28 04:06:00 Emergency Raven Lieberman [facility] 1.2.840.114 350.1.13.10 4.2.7.2.686 [id number] [facility] 2023-05-28 00:00:00 2023-05-28 00:00:00 Orders Only Doctor Unassigned, [place] [facility] 1.2.840.114 350.1.13.10 4.2.7.2.686 [id number] [facility] 2023-04-30 13:49:49 2023-04-30 13:49:49 Outpatient [facility] [id number] 0717 Darryl Waggoner 2023-04-23 08:52:34 2023-04-23 08:52:34 Outpatient SFA [facility] [id number] 0710 Darryl Waggoner 2023-03-06 22:52:00 2023-03-07 00:12:00 Emergency HERMILO OLSEN [facility] ERT [id number] [facility] 2023-03-06 22:52:00 2023-03-07 00:12:00 Emergency Hermilo Ricks [facility] 1.2840.114 350.1.13.10 4.2.7.2.686 [id number] [id number] [facility] 2023-02-02 01:06:00 2023-02-02 02:49:00 Emergency X SELENE PARRA [facility] ERT [id number] [facility] 2023-02-02 01:06:00 2023-02-02 02:49:00 Emergency Selene Parra [facility] 1.2.840.114 350.1.13.10 4.2.7.2.686 [id number] [facility] 2023-02-02 00:00:00 2023-02-02 00:00:00 Orders Only Doctor Unassigned, [place] [facility] 1.2.840.114 350.1.13.10 4.2.7.2.686 [id number] [facility] 2022-10-24 12:04:00 2022-10-24 15:45:00 Emergency X SURAJ SCOTT [facility] ERT [id number] [facility] 2022-10-24 12:04:00 2022-10-24 15:45:00 Emergency DaleSuraj Yoly [facility] 1.2.840.114 350.1.13.10 4.2.7.2.686 [id number] [id number] [facility] 2022-09-25 10:04:19 2022-09-25 10:04:19 Outpatient S[facility] [id number] 1212 Darryl Waggoner 2022-09-25 00:00:00 2022-09-25 00:00:00 Outpatient Visit [id number] 2022-07-21 07:49:00 2022-07-21 08:56:00 Emergency X HERMILO RICKS [facility] ERT [id number] [facility] 2022-07-21 07:49:00 2022-07-21 08:56:00 Emergency Hermilo Ricks [facility] 1.2.840.114 350.1.13.10 4.2.7.2.686 [id number] [id number] [facility] 2022-05-19 15:38:00 2022-05-19 17:24:00 Emergency CAT SCOTT [facility] ERT [id number] [facility] 2022-05-19 15:38:00 2022-05-19 17:24:00 Emergency Cat Rutledge [facility] 1.2.840.114 350.1.13.10 4.2.7.2.686 [id number] [facility] 2022-05-19 00:00:00 2022-05-19 00:00:00 Outpatient Visit [id number] 2022-05-13 02:08:00 2022-05-13 04:24:00 Emergency Selene Parra [facility] 1.840.114 350.1.13.10 4.2.7.2.686 [id number] [facility] 2022-05-13 02:08:00 2022-05-13 04:24:00 Emergency X SELENE PARRA [facility] ERT [id number] [facility] 2022-04-01 16:48:00 2022-04-01 18:39:00 Emergency X JANKICHRISTY PINO [facility] ERT [id number] [facility] 2022-04-01 16:48:00 2022-04-01 18:39:00 Emergency Christy Rg [facility] 1.840.114 350.1.13.10 4.2.7.2.686 [id number] [id number] [facility] 2022-04-01 00:00:00 2022-04-01 00:00:00 Orders Only Doctor Unassigned, [place] [facility] 1.840.114 350.1.13.10 4.2.7.2.686 [id number] [facility] 2021-10-25 13:44:00 2021-10-25 15:25:00 Emergency X LISA TRAN [facility] ERT [id number] [facility] 2021-10-25 13:44:00 2021-10-25 15:25:00 Emergency Lisa Tran [facility] 1.2.840.114 350.1.13.10 4.2.7.2.686 [id number] [id number] [facility] 2021-10-25 00:00:00 2021-10-25 00:00:00 Orders Only Doctor Unassigned, [place] [facility] 1.2.840.114 350.1.13.10 4.2.7.2.686 [id number] [facility] 2021-05-03 17:49:00 2021-05-04 02:46:00 Emergency [facility] [id number] [facility] 2021-04-16 21:16:42 2021-04-22 13:04:[address] [facility] [id number] [facility] 2021-04-08 17:04:00 2021-04-08 17:04:00 Emergency X ROCHELLE GOLD [facility] ERT [id number] [facility] 2021-04-08 02:42:00 2021-04-08 02:42:00 Emergency X LISA TRAN [facility] ERT [id number] [facility] 2021-03-24 18:36:00 2021-03-24 18:36:00 Emergency X [facility] ERT [id number] [facility] Results Test Description Test Time Test Comments Results Resul t Comments Source CT ABDOMEN PELVIS W CONTRAST 2024-02-14 9 10:12:02 Examination: Computed tomography of the abdomen and pelvis with contrast Ordering Physician: MANFRED PARRA Date: 03/12/2024 4:00 AM History: Nausea/vomiting RLQ abdominal pain (Age >= 14y) Comparison: 02/03/2024 Technique: Computed tomography of the abdomen and pelvis was performedafter the administration of nonionic intravenous contrast. ?Exams wereperformed using dose reduction techniques according to ALARA (as low asreasonably achievable) principles. Findings: Images of the lung bases show some airway opacification in theleft lower lobe and some patchy nodular infiltrate and linear atelectasis. The liver is noted to have a low density lesion in the anterior righthepatic lobe, most likely a hemangioma, and unchanged. A Lieberman catheterpresent on this exam. The gallbladder, spleen, pancreas, adrenal glands and kidneys areunremarkable. 3 mm upper pole left renal stone. No dilated or thickened bowel loops noted. Normal appendix. No evidence ofsmall bowel obstruction. There is fluid within nondilated small bowel.There is no free air. Trace free fluid in the pelvis. The portal and splenic veins are patent. No enlarged adenopathy. Uterus and right adnexa unremarkable. Left ovarian cyst measures 2.3 cm.Urinary bladder is unremarkable. Bone windows show no suspicious lytic or blastic bony lesion. [facility] 09:26:57* Test Item Value Reference Range Interpretation Comme nts LIPASE (test code = 3028694412) 108 U/L 0-220 Lab Interpretation (test cod e = 41191-7) Normal [facility] with [id number] 09:13:56* Test Item Value Reference Range Interpretation Comme nts WBC (test code = 6690-2) 7.42 4.30-11.10 RBC (test code = 789-8) 4.12 3.93-5.25 HGB (test code = 718-7) 9.2 g/dL 11.6-15.0 L HCT (test code = 4544-3) 30.9 % 35.7-45.2 L MCV (test code = 787-2) 75.0 fL 80.6-95.5 L MCH (test code = 785-6) 22.3 pg 25.9-32.8 L MCHC (test code = 786-4) 29.8 g/dL 31.6-35.1 L RDW-SD (test code = 70540-7) 42.4 fL 39.0-49.9 RDW-CV (test code = 788-0) 15.7 % 12.0-15.5 H PLT (test code = 777-3) 346 166-358 MPV (test code = 16506-1) 9.8 fL 9.5-12.9 NRBC/100 WBC (test code = 2770200210) 0.0 0.0-10.0 NRBC x10^3 (test code = 9009944010) See_Comment [Automated The Cleveland Foundationa ge] The system which generated this result transmitted reference range: 10*3/?L. The reference range was not used to interpret this result as normal/abnormal. GRAN MAT (NEUT) % (test code = 770-8) 43.3 % IMM GRAN % (test code = 8951690307) 0.30 % LYMPH % (test code = 736-9) 42.6 % MONO % (test code = 5905-5) 7.5 % EOS % (test code = 713-8) 5.5 % BASO % (test code = 706-2) 0.8 % GRAN MAT x10^3(ANC) (test code = 1912961891) 3.21 10*3/uL 1.88-7.09 IMM GRAN x10^3 (test code = 5615257884) 0.00-0.06 LYMPH x10^3 (test code = 731-0) 3.16 10*3/uL 1.32-3.29 MONO x10^3 (test code = 742-7) 0.56 10*3/uL 0.33-0.92 EOS x10^3 (test code = 711-2) 0.41 10*3/uL 0.03-0.39 H BASO x10^3 (test code = 704-7) 0.06 10*3/uL 0.01-0.07 Lab Interpretation (test code = 43758-8) [facility]normal [facility] [id number] 11:45:15* Test Item Value Reference Range Interpretation Comme nts EBV Mononucleosis Screen (te st code = 4965289085) Negative Negative Lab Interpretation (test cod e = 62873-4) Normal [facility] CenterCT [facility] PEL[facility] W [id number] 10:26:21ORDERING PHYSICIAN: SELENE PARRA CLINICAL HISTORY: Abdominal pain with nausea and vomiting COMPARISON: None available. TECHNIQUE: Helical CT images of the abdomen and pelvis obtained with IVcontrast. CT scan performed according to ALARA (As low as reasonablyachievable) principles. FINDINGS: Heart size is normal. Lower lungs are clear. The liver is mildly fattyinfiltrated. There is a low-density lesion in the right hepatic lobeidentified, measuring 1.3 cm. This may represent hemangioma, but isindeterminate. Further confirmation is recommended with a nonemergentabdominal MRI with and withoutcontrast. The gallbladder, pancreas, spleen, and adrenals are unremarkable. The rightkidney is unremarkable. There is a 3 mm nonobstructive stone in the midpoleof the left kidney. There is no hydronephrosis bilaterally. Ovarianfollicles are seen bilaterally. Trace fluid is seen in the pelvis. Appendixis normal. The bones are unremarkable.[facility] CenterPONY [id number] 09:09:00* Test Item Value Reference Range Interpretation Comme [facility] POCT PREG (test code = 1605) Negative On board controls acceptable with C Line (test code = 3574) Yes POCT PREG LOT # (test code = 3575) [id number] POCT PREG TEST DATE ( test code = 3576) 11/21/2024 Lab Interpretation (test cod e = 16829-1) Normal [facility] CenterS[facility] PATHOLOG[facility] [id number] 09:50:51* Test Item Value Reference Range Interpretation Comme [facility] DIAGNOSIS: (test code = 8200) (NOTE) A) Conization (L EEP) - EctocervixHigh grade squamous intraepithelial lesion (CIN2), extendingfocally to endocervical and ectocervical/stromal margins. B) Conization (LEEP) - EndocervixFocal high grade squamous intraepithelial lesion (CIN2).Surgical margins negative for dysplasia. COMMENTS: (test code = 8205) (NOTE) The previously r eported abnormal Pap (accession # [id number]) isreviewed. The biopsy material more clearly displays features ofa high-grade lesion. MICROSCOPIC DESCRIPTION: (test code = 8210) (NOTE) A) This cervical conization demonstrates the transformation zonewith squamous metaplasia, reactive epithelial change, acute andchronic inflammation and foci of high grade squamousintraepithelial lesion (CIN2). The dysplastic epithelium showslimited surface maturation and is composed of cells with crowdedhyperchromatic nuclei. The dysplasia extends focally to theendocervical and ectocervical/stromal margins. No invasivecarcinoma is identified. B) This cervical conization demonstrates the transformation zonewith mild chronic inflammation and a single focus of high gradesquamous intraepithelial lesion (CIN2). The dysplastic epitheliumshow very limited surface maturation and is composed of cellswith crowded hyperchromatic nuclei. The surgical margins arenegative for dysplasia. No invasive carcinoma is identified. CLINICAL DATA: (test code = 8401) (NOTE) Not specified GROSS DESCRIPTION: (test code = 8220) (NOTE) A) SPECIMEN L ABELED: EctocervixSIZE/WEIGHT: 1.9x1.1x0.5 and 2.2x1.0x0.4 cm SPECIMEN COLOR: TanNUMBER OF TISSUE PIECES: 2SUBMITTED IN CASSETTE(S): u1VIBSPR: FormalinCOMMENTS:Consists of a 1.9x1.1x0.5 cm irregularly shaped rubbery tissuefragment marked with a suture designating 12 o'clock. Partiallysurfaced by baez-white ectocervix. Endocervical margin inked blue.All remaining margins inked orange. Serially sectioned x 6 andentirely submitted as follows: A1: 11-12 o'clock (x 3)A2: 12-1 o'clock (x 3) Also in the container is a 2.2x1.0x0.4 cm irregularly shapedtissue fragment partially surfaced by baez-pink ectocervix.Grossly identified endocervical margin inked blue. All remainingmargins inked orange. Entirely submitted in A3-A4, sectioned x 7. B) SPECIMEN LABELED: EndocervixSIZE/WEIGHT: 2.3x1.0x0.5 cm SPECIMEN COLOR: TanNUMBER OF TISSUE PIECES: 1SUBMITTED IN CASSETTE(S): [id number]: FormalinCOMMENTS:Camak shaped rubbery tissue fragment partially surfaced bytan-white ectocervix. Os is inked blue by clinician. Endocervicalmargin inked blue. All remaining margins inked orange. Radiallysectioned x 9 and entirely submitted. Specimen fell apart uponsectioning. PATHOLOGIST: (test code = 8250) (NOTE) Heide Shipley MD, Board-certified Anatomic and ClinicalPathology, Hematopathology Specimens processed and interpreted at [facility], [address] [place] [address], , CLIA: [id number] CPT: (test code = 8400) (NOTE) [id number] UNLESS O THERWISE INDICATED, ALL TESTING PERFORMED AT [facility] [address] [place] [address] ASPHALT RAKER: ANIBAL PAREDES M.D. CLIA NUMBER [id number] [place]. [id number] SURGICAL PATHOLOGY [id number] 00:00:00* Test Item Value Reference Range Interpretation Comme nts DIAGNOSIS: (test code = 8200) (NOTE) COMMENTS: (test code = 8205) (NOTE) MICROSCOPIC DESCRIPTION: (te st code = 8210) (NOTE) CLINICAL DATA: (test code = 8401) (NOTE) GROSS DESCRIPTION: (test code = 8220) (NOTE) PATHOLOGIST: (test code = 8250) (NOTE) CPT: (test code = 8400) (NOTE) PDFE (test code = PDFReport) PDF Darryl WaggonerSURGICAL PATHOLOGY [id number] 00:00:00* Test Item Value Reference Range Interpretation Comme nts DIAGNOSIS: (test code = 8200) (NOTE) COMMENTS: (test code = 8205) (NOTE) MICROSCOPIC DESCRIPTION: (te st code = 8210) (NOTE) CLINICAL DATA: (test code = 8401) (NOTE) GROSS DESCRIPTION: (test code = 8220) (NOTE) PATHOLOGIST: (test code = 8250) (NOTE) CPT: (test code = 8400) (NOTE) PDFE (test code = PDFReport) PDF Darryl WaggonerUS OVARY [id number] 16:27:21EXAM: US OVARY TORSION HISTORY: 32 years -old Female with r/o torsion . LMP = 11/05/2023. TECHNIQUE: Transabdominal and transvaginal ultrasound imaging of the pelviswas performed including color Doppler evaluation. Additionally, spectralDoppler evaluation of the ovaries was performed. Representativeimages wereobtained for the record. COMPARISON: Same day CT FINDINGS: Uterus: The uterus is normal in size, 9.1 x 5.1 cm. The myometrium is homogenous.No focal lesion is detected. The endometrium is normal in appearance.Endometrial thickness measures 1.0 mm. The cervix is unremarkable. Right Adnexa:Ovary: The right ovary measures 2.7 x 2.1 x 2.7 cm. Small physiologicfollicles are present. Normal arterial and venous waveforms are observed atthe right ovary. Other: None Left Adnexa:Ovary: The left ovary measures 4.0 x 2.9 x 4.4 cm. There is a 2.9 x 2.5 x3.3 cm anechoic physical logic cyst at the left ovary. Normal arterial andvenous waveforms are observed at the left ovary. Other: None Cul-de-sac: Trace volume free fluid is present.[facility] CenterCT ABDOMEN PELVIS W [id number] 15:15:04EXAM: CT ABDOMEN PELVIS W CONTRAST HISTORY: 32 years-old Female presenting for Abdominal abscess/infectionsuspected TECHNIQUE: Contiguous axial imaging from the level of the lung basesthrough the proximal thighs was performed with intravenous contrast.Coronal and sagittal reconstructions were obtained. COMPARISON: None FINDINGS: LOWER THORAX: Patchy opacity in the left lower lobe likely representsatelectasis. LIVER: The liver is normal in size and contour. A 1 cm hypodense lesion ispresent in the right lobe of the liver, unchanged compared to prior. GALLBLADDER AND BILIARY TREE: The gallbladder is partially decompressed.Few gallstones with the largest measuring 0.3 cm are seen in the neck ofthe gallbladder. No intra or extrahepatic biliary ductal dilation isvisualized. SPLEEN: The spleen appears unremarkable. PANCREAS: Edematous appearance of the pancreas without peripancreatic fatstranding. No ductal dilation or masses are visualized. ADRENAL GLANDS: No adrenal masses are seen. KIDNEYS: Punctate radiodense calculus is present in the major calyx of theleft kidney. No hydronephrosis or suspicious masses are visualized. PELVIS/BLADDER & PERITONEUM AND RETROPERITONEUM: The bladder is partially decompressed with circumferential bladder wallthickening. There is surrounding fat stranding present. Heterogeneousappearance of the uterine myometrium. Small amount of fluid is presentinthe posterior cul-de-sac. A 2.8 cm left ovarian cyst is visualized. Fewfollicles are seen in the right ovary. Previously visualized 2.3 cm rightovarian cyst is not visualized in this study. GI TRACT: No dilation or bowel wall thickening is seen. The appendixappears unremarkable. LYMPH NODES: A 0.4 cm right pelvic calcified lymph node is visualized. VESSELS: The vessels appear unremarkable. BONES AND SOFT TISSUES: No suspicious lytic or sclerotic bony lesions arepresent.[facility] CenterCOMP. METABOLIC PANEL ([id number])2023-11-20 14:09:45* Test Item Value Reference Range Interpretation Comme nts NA (test code = 7811287221) 135 mmol/L 135-145 K (test code = 6465141890) 4.1 mmol/L 3.5-5.0 CL (test code = 2395327179) 112 mmol/L 98-108 H CO2 TOTAL (test code = 9994470666) 17 mmol/L 23-31 L AGAP (test code = 1715112325) 6 2-16 BUN (test code = 8545322327) 10 mg/dL 7-23 GLUCOSE (test code = 6718666093) 95 mg/dL 70-110 CREATININE (test code = 0850491352) 0.72 mg/dL 0.50-1.04 TOTAL BILI (test code = 4648259167) 0.2 mg/dL 0.1-1.1 CALCIUM (test code = 1210815627) 9.0 mg/dL 8.6-10.6 T PROTEIN (test code = 9047619288) 7.6 g/dL 6.3-8.2 ALBUMIN (test code = 5795457086) 4.3 g/dL 3.5-5.0 ALK PHOS (test code = 1818570577) 81 U/L 34-122 ALTv (test code = 1742-6) 23 U/L 5-35 AST(SGOT) (test code = 8338105423) 26 U/L 13-40 eGFR (test code = 43694-1) 114.8 mL/min/1.73m2 CKD-EPI eGFR (2020). Assuming creatinine has been stable day-to-day for at least three months, the eGFR indicates Category G1 (>= 90 mL/min/1.73 m2) Lab Interpretation (test code = 74789-3) Abnormal [facility] CenterCB WITH [id number] 13:53:43* Test Item Value Reference Range Interpretation Comme nts WBC (test code = 6690-2) 6.19 4.30-11.10 RBC (test code = 789-8) 4.10 3.93-5.25 HGB (test code = 718-7) 9.4 g/dL 11.6-15.0 L HCT (test code = 4544-3) 31.3 % 35.7-45.2 L MCV (test code = 787-2) 76.3 fL 80.6-95.5 L MCH (test code = 785-6) 22.9 pg 25.9-32.8 L MCHC (test code = 786-4) 30.0 g/dL 31.6-35.1 L RDW-SD (test code = 50357-9) 42.6 fL 39.0-49.9 RDW-CV (test code = 788-0) 15.5 % 12.0-15.5 PLT (test code = 777-3) 364 166-358 H MPV (test code = 66709-9) 10.0 fL 9.5-12.9 NRBC/100 WBC (test code = 1680435418) 0.0 0.0-10.0 NRBC x10^3 (test code = 0142394873) See_Comment [Automated messa ge] The system which generated this result transmitted reference range: 10*3/?L. The reference range was not used to interpret this result as normal/abnormal. GRAN MAT (NEUT) % (test code = 770-8) 59.8 % IMM GRAN % (test code = 2155650274) 0.30 % LYMPH % (test code = 736-9) 27.8 % MONO % (test code = 5905-5) 9.2 % EOS % (test code = 713-8) 2.1 % BASO % (test code = 706-2) 0.8 % GRAN MAT x10^3(ANC) (test code = 1459212487) 3.70 10*3/uL 1.88-7.09 IMM GRAN x10^3 (test code = 5173332935) 0.00-0.06 LYMPH x10^3 (test code = 731-0) 1.72 10*3/uL 1.32-3.29 MONO x10^3 (test code = 742-7) 0.57 10*3/uL 0.33-0.92 EOS x10^3 (test code = 711-2) 0.13 10*3/uL 0.03-0.39 BASO x10^3 (test code = 704-7) 0.05 10*3/uL 0.01-0.07 Lab Interpretation (test code = 94451-7) Abnormal [facility] CenterPOCT [id number] 13:26:00* Test Item Value Reference Range Interpretation Comme nts POCT PREG (test code = 1605) Negative On board controls acceptable with C Line (test code = 3574) Yes POCT PREG LOT # (test code = 3575) [id number] POCT PREG TEST DATE ( test code = 3576) 01/20/2025 Lab Interpretation (test cod e = 56877-7) Normal [facility] CenterPONY [id number] 13:28:00* Test Item Value Reference Range Interpretation Comme nts POCT PREG (test code = 1605) Negative On board controls acceptable with C Line (test code = 3574) Yes POCT PREG LOT # (test code = 3575) [id number] POCT PREG TEST DATE ( test code = 3576) 12/23/2024 Lab Interpretation (test cod e = 68719-9) Normal [facility] CenterCT/NG, NAAT, [id number] 18:43:32* Test Item Value Reference Range Interpretation Comme nts CHLAMYDIA, NAAT, URINE (test code = 29737) NEGATIVE NEGATIVE Testing is perfo rmed with Lucie HARRY 6800/8800 systems usingreal-time polymerase chain reaction (PCR) method. A negative result does not exclude low level infection, specimensampling error, or collection error. GONORRHEA, NAAT, URINE (test code = 41277) NEGATIVE NEGATIVE Testing is perfo rmed with Lucie HARRY 6800/8800 systems usingreal-time polymerase chain reaction (PCR) method. A negative result does not exclude low level infection, specimensampling error, or collection error. UNLESS OTHERWISE INDICATED, ALL TESTING PERFORMED AT [facility] [address] [place] [address] ASPHALT RAKER: ANIBAL PAREDES M.D. CLIA NUMBER [id number] [place]. [id number] TRICHOMONAS, NAAT, [id number] 16:46:16* Test Item Value Reference Range Interpretation Comme nts TRICHOMONAS, NAAT, URINE (test code = 92005) NEGATIVE NEGATIVE Testing is perfo rmed with Lucie HARRY 6800/8800 method usingreal-time polymerase chain reaction (PCR) method. A negative result does not exclude low level infection, specimensampling error, or collection error. TRICHOMONAS, URINE, [id number] 00:00:00* Test Item Value Reference Range Interpretation Comme nts TRICHOMONAS, NAAT, URINE (te st code = 50372) NEGATIVE Darryl F AustinCT/NG, TMA, [id number] 00:00:00* Test Item Value Reference Range Interpretation Comme nts CHLAMYDIA, NAAT, URINE (test code = 60573) NEGATIVE GONORRHEA, NAAT, URINE (test code = 73023) NEGATIVE Darryl F AustinTRICHOMONAS, URINE, [id number] 00:00:00* Test Item Value Reference Range Interpretation Comme nts TRICHOMONAS, NAAT, URINE (te st code = 01929) NEGATIVE Darryl F AustinCT/NG, TMA, [id number] 00:00:00* Test Item Value Reference Range Interpretation Comme nts CHLAMYDIA, NAAT, URINE (test code = 95378) NEGATIVE GONORRHEA, NAAT, URINE (test code = 86606) NEGATIVE Darryl F AustinPOCT [id number] 12:56:00* Test Item Value Reference Range Interpretation Comme nts POCT PREG (test code = 1605) Negative On board controls acceptable with C Line (test code = 3574) Yes POCT PREG LOT # (test code = 3575) [facility] [id number] POCT PREG TEST DATE (test code = 3576) 12/12/2024 Lab Interpretation (test cod e = 62340-6) Normal [facility] CenterS[facility] PATH[facility] [id number] 10:24:44* Test Item Value Reference Range Interpretation Comments DIAGNOSIS: (test code = 8200) (NOTE) E) Biopsy - Cerv ix 5:00-6:00High-grade squamous intraepithelial lesion (GISELLE 2). F) Biopsy - Cervix 8:00Low-grade squamous intraepithelial lesion (GISELLE 1). A) Biopsy - EndometriumBenign early secretory endometrium. B) Curettage - EndocervixBenign endometrial and endocervical tissue. C) Biopsy - Cervix 1:00Benign squamous mucosa; no transformation zone present. D) Biopsy - Cervix 3:00Benign squamous mucosa; no transformation zone present. MICROSCOPIC DESCRIPTION: (test code = 8210) (NOTE) E) Cervical muco sa shows disordered maturation with cytologicatypia and dysmaturational changes involving the basal andmid-portion of the squamous epithelium. No invasive carcinoma isidentified. F) Cervical mucosa shows disordered maturation with nuclearenlargement, nuclear membrane irregularities, hyperchromasia andcoarse chromatin. This shows low overall nuclear:cytoplasmicratios, with dysmaturational changes. No high grade dysplasia ormalignancy is identified. A) Benign endometrial tissue is present with tubular and tortuousendometrial glands, most with a regular distribution ofsubnuclear vacuoles. There is no atypia, hyperplasia, polyp, ormalignancy. B) This specimen consists of benign endocervical and endometrialtissue. There is no atypia, hyperplasia, or malignancy. C) The biopsy consists of benign squamous mucosa. Squamocolumnartransformation zone is not identified in the biopsy. There is noatypia, dysplasia, or malignancy. D) The biopsy consists of benign squamous mucosa. Squamocolumnartransformation zone is not identified in the biopsy. There is noatypia, dysplasia, or malignancy. CLINICAL DATA: (test code = 8401) (NOTE) Not specified GROSS DESCRIPTION: (test code = 8220) (NOTE) E) SPECIMEN LABE LED: Cervix 5:00-6:00SIZE/WEIGHT: 0.3x0.2x0.1 cm SPECIMEN COLOR: TanNUMBER OF TISSUE PIECES: 1SUBMITTED IN CASSETTE(S): [id number]: FormalinCOMMENTS:Entirely submitted intact. F) SPECIMEN LABELED: Cervix 8:00SIZE/WEIGHT: 0.2x0.1x0.1 cm SPECIMEN COLOR: TanNUMBER OF TISSUE PIECES: 1SUBMITTED IN CASSETTE(S): [id number]: FormalinCOMMENTS:Entirely submitted intact. A) SPECIMEN LABELED: EndometriumSIZE/WEIGHT: 1.4x1.3x0.2 cm AggregateSPECIMEN COLOR: TanNUMBER OF TISSUE PIECES: multipleSUBMITTED IN CASSETTE(S): [id number]: FormalinCOMMENTS:Filtered and entirely submitted. B) SPECIMEN LABELED: EndocervixSIZE/WEIGHT: 1.7x1.5x0.3 cm AggregateSPECIMEN COLOR: TanNUMBER OF TISSUE PIECES: multipleSUBMITTED IN CASSETTE(S): [id number]: FormalinCOMMENTS:Filtered and entirely submitted. C) SPECIMEN LABELED: Cervix 1:00SIZE/WEIGHT: 0.4x0.3x0.1 cm SPECIMEN COLOR: TanNUMBER OF TISSUE PIECES: 1SUBMITTED IN CASSETTE(S): [id number]: FormalinCOMMENTS:Entirely submitted intact. D) SPECIMEN LABELED: Cervix 3:00SIZE/WEIGHT: 0.2x0.2x0.1 cm SPECIMEN COLOR: TanNUMBER OF TISSUE PIECES: 1SUBMITTED IN CASSETTE(S): [id number]: FormalinCOMMENTS:Entirely submitted intact. PATHOLOGIST: (test code = 8250) (NOTE) Gita Morocho M.D., P h.D., Board Certified in Anatomic and ClinicalPathology, Cytopathology Specimens processed and interpreted at [facility], [address] [place] [address], , CLIA: [id number] CPT: (test code = 8400) (NOTE) [id number] UNLESS O THERWISE INDICATED, ALL TESTING PERFORMED AT [facility] [address] [place] [address] ASPHALT RAKER: ANIBAL PAREDES M.D. CLIA NUMBER [id number] [place]. [id number] SURGICAL PATHOLOGY [id number] 00:00:00* Test Item Value Reference Range Interpretation Comme nts DIAGNOSIS: (test code = 8200) (NOTE) MICROSCOPIC DESCRIPTION: (te st code = 8210) (NOTE) CLINICAL DATA: (test code = 8401) (NOTE) GROSS DESCRIPTION: (test code = 8220) (NOTE) PATHOLOGIST: (test code = 8250) (NOTE) CPT: (test code = 8400) (NOTE) PDFE (test code = PDFReport) PDF Darryl Ackerman AustinSURGICAL PATHOLOGY [id number] 00:00:00* Test Item Value Reference Range Interpretation Comme nts DIAGNOSIS: (test code = 8200) (NOTE) MICROSCOPIC DESCRIPTION: (te st code = 8210) (NOTE) CLINICAL DATA: (test code = 8401) (NOTE) GROSS DESCRIPTION: (test code = 8220) (NOTE) PATHOLOGIST: (test code = 8250) (NOTE) CPT: (test code = 8400) (NOTE) PDFE (test code = PDFReport) PDF Darryl WaggonerVAGINAL PATHOGENS DNA [id number] 13:41:36* Test Item Value Reference Range Interpretation Comme nts JAZ SPECIES (test code = 38767) NEGATIVE NEGATIVE G. VAGINALIS (test code = 12833) NEGATIVE NEGATIVE T. VAGINALIS (test code = 17328) NEGATIVE NEGATIVE Note: The [facility] VPIII Microbial Identification Testis a DNA probe test intended for use in the detectionand identification of Jaz species, Gardnerellavaginalis and Trichomonas vaginalis nucleic acid. UNLESS OTHERWISE INDICATED, ALL TESTING PERFORMED AT [facility] [address] [place] [address] ASPHALT RAKER: ANIBAL PAREDES M.D. CLIA NUMBER [id number] [place]. [id number] VAGINAL PATHOGENS DNA [id number] 00:00:00* Test Item Value Reference Range Interpretation Comme nts JAZ SPECIES (test code = 74165) NEGATIVE G. VAGINALIS (test code = 44980) NEGATIVE T. VAGINALIS (test code = 06314) NEGATIVE Darryl Ackerman AustinVAGINAL PATHOGENS DNA [id number] 00:00:00* Test Item Value Reference Range Interpretation Comme nts JAZ SPECIES (test code = 40463) NEGATIVE G. VAGINALIS (test code = 14827) NEGATIVE T. VAGINALIS (test code = 62339) NEGATIVE Darryl WaggonerCOMP. METABOLIC PANEL (23624)2023-06-12 05:34:53* Test Item Value Reference Range Interpretation Comme nts NA (test code = 4476766492) 137 mmol/L 135-145 K (test code = 0526373897) 3.9 mmol/L 3.5-5.0 CL (test code = 7045292071) 106 mmol/L 98-108 CO2 TOTAL (test code = 2413769363) 24 mmol/L 23-31 AGAP (test code = 9854739375) 7 2-16 BUN (test code = 7653330906) 10 mg/dL 7-23 GLUCOSE (test code = 8507153924) 90 mg/dL 70-110 CREATININE (test code = 0914295121) 0.94 mg/dL 0.50-1.04 TOTAL BILI (test code = 9418667540) 0.1-1.1 L CALCIUM (test code = 5752905976) 9.1 mg/dL 8.6-10.6 T PROTEIN (test code = 0533447458) 6.9 g/dL 6.3-8.2 ALBUMIN (test code = 9779988058) 4.1 g/dL 3.5-5.0 ALK PHOS (test code = 3384709485) 72 U/L 34-122 ALTv (test code = 1742-6) 24 U/L 5-35 AST(SGOT) (test code = 3999771884) 28 U/L 13-40 eGFR (test code = 7512954991) 69.5 mL/min/1.73m2 ELIA (test code = ELIA) Association of Glomerular Filtration Rate (GFR) and Staging of Kidney Disease* + --+ --+ ------+| GFR (mL/min/1.73 m2) ?| With Kidney Damage ?| ?Without Kidney Damage+ --------+ --------+ +| ?>90 ?| ?Stage one ?| ? Normal ?+ ---+ ---+ -------+| ?60-89 ?| ?Stage two ?| ? Decreased GFR ? + --+ --+ ------+| ?30-59 ?| ?Stage three ?| ? Stage three ? + --+ --+ ------+| ?15-29 ?| ?Stage four ? | ? Stage four ?+ ---+ ---+ -------+| ?<15 (or dialysis) ? ?| ?Stage five ? | ? Stage five ?+ ---+ ---+ -------+ *Each stage assumes the associated GFR level has been in effect for at least three months. ?Stages 1 to 5, with or without kidney disease, indicate chronic kidney disease. Notes: Determination of stages one and two (with eGFR >59mL/min/1.73 m2) requires estimation of kidney damage for at least three months as defined by structural or functional abnormalities of the kidney, manifested by either:Pathological abnormalities or Markers of kidney damage (including abnormalities in the composition of the blood or urine or abnormalities in imaging tests). Lab Interpretation (test code = 86224-9) Abnormal [facility] WITH [id number] 05:16:33* Test Item Value Reference Range Interpretation Comme nts WBC (test code = 6690-2) 7.81 See_Comment [Automated messa ge] The system which generated this result transmitted reference range: 4.30 - 11.10 10*3/?L. The reference range was not used to interpret this result as normal/abnormal. RBC (test code = 789-8) 3.89 See_Comment L [Automated messa ge] The system which generated this result transmitted reference range: 3.93 - 5.25 10*6/?L. The reference range was not used to interpret this result as normal/abnormal. HGB (test code = 718-7) 8.8 g/dL 11.6-15.0 L HCT (test code = 4544-3) 28.6 % 35.7-45.2 L MCV (test code = 787-2) 73.5 fL 80.6-95.5 L MCH (test code = 785-6) 22.6 pg 25.9-32.8 L MCHC (test code = 786-4) 30.8 g/dL 31.6-35.1 L RDW-SD (test code = 94994-3) 48.2 fL 39.0-49.9 RDW-CV (test code = 788-0) 17.9 % 12.0-15.5 H PLT (test code = 777-3) 327 See_Comment [Automated messa ge] The system which generated this result transmitted reference range: 166 - 358 10*3/?L. The reference range was not used to interpret this result as normal/abnormal. MPV (test code = 58569-6) 9.7 fL 9.5-12.9 NRBC/100 WBC (test code = 8009794010) 0.0 See_Comment [Automated CH Mack ssage] The system which generated this result transmitted reference range: 0.0 - 10.0 /100 WBCs. The reference range was not used to interpret this result as normal/abnormal. NRBC x10^3 (test code = 3598710017) See_Comment [Automated messa ge] The system which generated this result transmitted reference range: 10*3/?L. The reference range was not used to interpret this result as normal/abnormal. GRAN MAT (NEUT) % (test code = 770-8) 40.4 % IMM GRAN % (test code = 9971342840) 0.10 % LYMPH % (test code = 736-9) 45.5 % MONO % (test code = 5905-5) 9.0 % EOS % (test code = 713-8) 4.5 % BASO % (test code = 706-2) 0.5 % GRAN MAT x10^3(ANC) (test code = 2782148478) 3.16 10*3/uL 1.88-7.09 IMM GRAN x10^3 (test code = 2799108523) 0.00-0.06 LYMPH x10^3 (test code = 731-0) 3.55 10*3/uL 1.32-3.29 H MONO x10^3 (test code = 742-7) 0.70 10*3/uL 0.33-0.92 EOS x10^3 (test code = 711-2) 0.35 10*3/uL 0.03-0.39 BASO x10^3 (test code = 704-7) 0.04 10*3/uL 0.01-0.07 Lab Interpretation (test code = 96649-3) [facility] [id number] 05:07:00* Test Item Value Reference Range Interpretation Comme [facility] POCT PREG (test code = 1605) Negative On board controls acceptable with C Line (test code = 3574) Yes POCT PREG LOT # (test code = 3575) [id number] POCT PREG TEST DATE ( test code = 3576) 10/17/2024 Lab Interpretation (test cod e = 83658-2) [facility] THINPREP, [id number] 18:32:20 * Test Item Value Reference Range Interpretation Comme nts SOURCE: (test code = 8001) Cervical SLIDES: (test code = 8011) 1 LMP: (test code = 8021) 05/17/2023 SPECIMEN ADEQUACY: (test code = 36499) (NOTE) Satisfactory for evaluation. Endocervical cells/transformation zone component present. INTERPRETATION: (test code = 92168) ASCUS/EPITH. ABNORMALITY; SEE BELOW A - ------- EPITHELIAL CELL ABNORMALITY Atypical squamous cells of undetermined significance (ASC-US) OTHER COMMENTS: (test code = 8081) (NOTE) Trichomonas v aginalis present. CLOTHING CUTTER: (test code = 8101) TIERA Mcgee(ASC P) PATHOLOGIST INTERPRETATION BY: (test code = 8122) Joana Luna DO LOCATION: (test code = 02441) (NOTE) Specimens proces sed and interpreted at [facility] , [address] [place] [address], , CLIA: [id number] CPT: (test code = 8140) (NOTE) 68087, 72474 UNL ESS OTHERWISE INDICATED, COMPUTER AIDED AND CLOTHING CUTTER SCREENING PERFORMED. The Pap test is a screening test with an inherent, but low probability of error. Your patient should be reminded to consult you immediately if she experiences any suspicious signs or symptoms, regardless of her Pap test result. An alternate report format containing images or consolidated prior Pap history is available as applicable. PAP TEST, THINPREP, [id number] 00:00:00* Test Item Value Reference Range Interpretation Comme nts SOURCE: (test code = 8001) Cervical SLIDES: (test code = 8011) 1 LMP: (test code = 8021) 05/17/2023 SPECIMEN ADEQUACY: (test code = 43708) (NOTE) INTERPRETATION: (test code = 21108) ASCUS/EPITH. ABNORMALITY; SEE BELOW OTHER COMMENTS: (test code = 8081) (NOTE) CLOTHING CUTTER: (test code = 8101) TIERA Mcgee(ASCP) PATHOLOGIST INTERPRETATION BY: (test code = 8122) Joana [facility], LOCATION: (test code = 27750) (NOTE) CPT: (test code = 8140) (NOTE) Darryl McadamsP TEST, THINPREP, [id number] 00:00:00* Test Item Value Reference Range Interpretation Comme nts SOURCE: (test code = 8001) Cervical SLIDES: (test code = 8011) 1 LMP: (test code = 8021) 05/17/2023 SPECIMEN ADEQUACY: (test code = 69688) (NOTE) INTERPRETATION: (test code = 89202) ASCUS/EPITH. ABNORMALITY; SEE BELOW OTHER COMMENTS: (test code = 8081) (NOTE) CLOTHING CUTTER: (test code = 8101) TIERA Mcgee(ASCP) PATHOLOGIST INTERPRETATION BY: (test code = 8122) Joana [facility], LOCATION: (test code = 66188) (NOTE) CPT: (test code = 8140) (NOTE) Darryl WaggonerCT/NG, NAAT, [id number] 20:10:21* Test Item Value Reference Range Interpretation Comme nts CHLAMYDIA, NAAT, URINE (test code = 95547) POSITIVE NEGATIVE A Testing is perfo rmed with Lucie HARRY 6800/8800 systems usingreal-time polymerase chain reaction (PCR) method. GONORRHEA, NAAT, URINE (test code = 33054) NEGATIVE NEGATIVE Testing is perfo rmed with Lucie HARRY 6800/8800 systems usingreal-time polymerase chain reaction (PCR) method. A negative result does not exclude low level infection, specimensampling error, or collection error. UNLESS OTHERWISE INDICATED, ALL TESTING PERFORMED AT [facility] [address] [place] [address] ASPHALT RAKER: ANIBAL PAREDES M.D. CLIA NUMBER [id number] [place]. [id number] HPV HIGH RISK WITH GENOTYPE, [id number] 17:33:46* Test Item Value Reference Range Interpretation Comme nts HPV HIGH RISK INTERP (test code = 20423) POSITIVE NEGATIVE A HPV 16 (test code = 19408) POSITIVE A HPV 18 (test code = 38866) NEGATIVE HPV, HR, OTHER GENOTYPES (test code = 06371) NEGATIVE Testing methodol ogy is real-time PCR utilizing hydrolysis probes with the Lucie Harry 4800 system. The test individually detects genotypes 16 and 18, as well as the other 12 high risk types (31,33,35,39,45,51,52,56 ,58,59,66,68). The expected result is negative. A negative result does not rule out the presence of HPV not included in the genotype set, a low level of infection or specimen sampling error. UNLESS OTHERWISE INDICATED, ALL TESTING PERFORMED AT [facility] [address] [place] [address] ASPHALT RAKER: ANIBAL PAREDES M.D. CLIA NUMBER [id number] [place] [id number] VAGINAL PATHOGENS DNA [id number] 16:55:18* Test Item Value Reference Range Interpretation Comme nts JAZ SPECIES (test code = 03305) NEGATIVE NEGATIVE G. VAGINALIS (test code = 18137) NEGATIVE NEGATIVE T. VAGINALIS (test code = 50839) NEGATIVE NEGATIVE Note: The [employer] VPIII Microbial Identification Testis a DNA probe test intended for use in the detectionand identification of Jaz species, Gardnerellavaginalis and Trichomonas vaginalis nucleic acid. UNLESS OTHERWISE INDICATED, ALL TESTING PERFORMED AT [facility]. [address] [place] [address] ASPHALT RAKER: ANIBAL PAREDES M.D. CLIA NUMBER [id number] [place]. [id number] RPR REFLEX TO T. PALLIDUM - [id number] 08:07:41* Test Item Value Reference Range Interpretation Comme nts RPR (test code = 31135) NON-REACTIVE NON-REACTIVE RPR TITER (test code = 3500) NOT INDIC. TITER NOT INDIC. HIV 1/2 4TH GEN, RFLX [id number] 05:24:44* Test Item Value Reference Range Interpretation Comme nts HIV 1/2 4TH GEN, RFLX CONF ( test code = 3514) NON-REACTIVE NON-REACTIVE HPV HIGH RISK WITH GENOTYPE, [id number] 00:00:00* Test Item Value Reference Range Interpretation Comme nts HPV HIGH RISK INTERP (test c ode = 98202) POSITIVE HPV 16 (test code = 65292) POSITIVE HPV 18 (test code = 04425) NEGATIVE HPV, HR, OTHER GENOTYPES (te st code = 44786) NEGATIVE PDFE (test code = PDFReport) PDF Darryl Ackerman AustinRPR REFLEX TO T. PALLIDUM - [id number] 00:00:00* Test Item Value Reference Range Interpretation Comme nts RPR (test code = 15409) NON-REACTIVE RPR TITER (test code = 3500) NOT INDIC. TITER Darryl Ackerman AustinCT/NG, TMA, [id number] 00:00:00* Test Item Value Reference Range Interpretation Comme nts CHLAMYDIA, NAAT, URINE (test code = 92986) POSITIVE GONORRHEA, NAAT, URINE (test code = 97889) NEGATIVE Darryl Ackerman AustinHIV 1/2 4TH GEN, RFLX [id number] 00:00:00* Test Item Value Reference Range Interpretation Comme nts HIV 1/2 4TH GEN, RFLX CONF ( test code = 3514) NON-REACTIVE Darryl Ackerman AustinVAGINAL PATHOGENS DNA [id number] 00:00:00* Test Item Value Reference Range Interpretation Comme nts JAZ SPECIES (test code = 80049) NEGATIVE G. VAGINALIS (test code = 79472) NEGATIVE T. VAGINALIS (test code = 23174) NEGATIVE Darryl Ackerman AustinRPR REFLEX TO T. PALLIDUM - [id number] 00:00:00* Test Item Value Reference Range Interpretation Comme nts RPR (test code = 73251) NON-REACTIVE RPR TITER (test code = 3500) NOT INDIC. TITER Darryl Ackerman AustinHPV HIGH RISK WITH GENOTYPE, [id number] 00:00:00* Test Item Value Reference Range Interpretation Comme nts HPV HIGH RISK INTERP (test c ode = 06061) POSITIVE HPV 16 (test code = 02677) POSITIVE HPV 18 (test code = 98213) NEGATIVE HPV, HR, OTHER GENOTYPES (te st code = 13734) NEGATIVE PDFE (test code = PDFReport) PDF Darryl Ackerman AustinCT/NG, TMA, [id number] 00:00:00* Test Item Value Reference Range Interpretation Comme nts CHLAMYDIA, NAAT, URINE (test code = 10882) POSITIVE GONORRHEA, NAAT, URINE (test code = 00253) NEGATIVE Darryl Ackerman AustinHIV 1/2 4TH GEN, RFLX [id number] 00:00:00* Test Item Value Reference Range Interpretation Comme nts HIV 1/2 4TH GEN, RFLX CONF ( test code = 3514) NON-REACTIVE Darryl WaggonerVAGINAL PATHOGENS DNA [id number] 00:00:00* Test Item Value Reference Range Interpretation Comme nts JAZ SPECIES (test code = 37332) NEGATIVE G. VAGINALIS (test code = ) NEGATIVE T. VAGINALIS (test code = ) NEGATIVE Darryl WaggonerCOMP. METABOLIC PANEL (42032)2023-05-28 07:12:09* Test Item Value Reference Range Interpretation Comme nts NA (test code = 2212099467) 138 mmol/L 135-145 K (test code = 1396257649) 3.6 mmol/L 3.5-5.0 CL (test code = 7757928579) 105 mmol/L 98-108 CO2 TOTAL (test code = 0312899100) 24 mmol/L 23-31 AGAP (test code = 3159924349) 9 2-16 BUN (test code = 4063677567) 8 mg/dL 7-23 GLUCOSE (test code = 1610570454) 94 mg/dL 70-110 CREATININE (test code = 6551689518) 0.90 mg/dL 0.50-1.04 TOTAL BILI (test code = 9713798850) 0.5 mg/dL 0.1-1.1 CALCIUM (test code = 6845087865) 9.2 mg/dL 8.6-10.6 T PROTEIN (test code = 9472127332) 7.8 g/dL 6.3-8.2 ALBUMIN (test code = 2268234941) 4.3 g/dL 3.5-5.0 ALK PHOS (test code = 8719303251) 91 U/L 34-122 ALTv (test code = 1742-6) 32 U/L 5-35 AST(SGOT) (test code = 8952413346) 48 U/L 13-40 H eGFR (test code = 3237863184) 73.0 mL/min/1.73m2 ELIA (test code = ELIA) Association of Glomerular Filtration Rate (GFR) and Staging of Kidney Disease* + --+ --+ ------+| GFR (mL/min/1.73 m2) ?| With Kidney Damage ?| ?Without Kidney Damage+ --------+ --------+ +| ?>90 ?| ?Stage one ?| ? Normal ?+ ---+ ---+ -------+| ?60-89 ?| ?Stage two ?| ? Decreased GFR ? + --+ --+ ------+| ?30-59 ?| ?Stage three ?| ? Stage three ? + --+ --+ ------+| ?15-29 ?| ?Stage four ? | ? Stage four ?+ ---+ ---+ -------+| ?<15 (or dialysis) ? ?| ?Stage five ? | ? Stage five ?+ ---+ ---+ -------+ *Each stage assumes the associated GFR level has been in effect for at least three months. ?Stages 1 to 5, with or without kidney disease, indicate chronic kidney disease. Notes: Determination of stages one and two (with eGFR >59mL/min/1.73 m2) requires estimation of kidney damage for at least three months as defined by structural or functional abnormalities of the kidney, manifested by either:Pathological abnormalities or Markers of kidney damage (including abnormalities in the composition of the blood or urine or abnormalities in imaging tests). Lab Interpretation (test code = 46972-8) Abnormal [facility] WITH [id number] 06:45:45* Test Item Value Reference Range Interpretation Comme nts WBC (test code = 6690-2) 7.78 See_Comment [Automated BoxFox] The system which generated this result transmitted reference range: 4.30 - 11.10 10*3/?L. The reference range was not used to interpret this result as normal/abnormal. RBC (test code = 789-8) 4.16 See_Comment [Automated [employer]] The system which generated this result transmitted reference range: 3.93 - 5.25 10*6/?L. The reference range was not used to interpret this result as normal/abnormal. HGB (test code = 718-7) 9.4 g/dL 11.6-15.0 L HCT (test code = 4544-3) 31.2 % 35.7-45.2 L MCV (test code = 787-2) 75.0 fL 80.6-95.5 L MCH (test code = 785-6) 22.6 pg 25.9-32.8 L MCHC (test code = 786-4) 30.1 g/dL 31.6-35.1 L RDW-SD (test code = 27898-3) 49.8 fL 39.0-49.9 RDW-CV (test code = 788-0) 18.3 % 12.0-15.5 H PLT (test code = 777-3) 391 See_Comment H [Automated messa ge] The system which generated this result transmitted reference range: 166 - 358 10*3/?L. The reference range was not used to interpret this result as normal/abnormal. MPV (test code = 65458-3) 10.3 fL 9.5-12.9 NRBC/100 WBC (test code = 9225136076) 0.0 See_Comment [Automated me ssage] The system which generated this result transmitted reference range: 0.0 - 10.0 /100 WBCs. The reference range was not used to interpret this result as normal/abnormal. NRBC x10^3 (test code = 7960020283) See_Comment [Automated messa ge] The system which generated this result transmitted reference range: 10*3/?L. The reference range was not used to interpret this result as normal/abnormal. GRAN MAT (NEUT) % (test code = 770-8) 47.8 % IMM GRAN % (test code = 2745044012) 0.30 % LYMPH % (test code = 736-9) 39.1 % MONO % (test code = 5905-5) 8.5 % EOS % (test code = 713-8) 3.5 % BASO % (test code = 706-2) 0.8 % GRAN MAT x10^3(ANC) (test code = 7384640843) 3.73 10*3/uL 1.88-7.09 IMM GRAN x10^3 (test code = 5370959690) 0.00-0.06 LYMPH x10^3 (test code = 731-0) 3.04 10*3/uL 1.32-3.29 MONO x10^3 (test code = 742-7) 0.66 10*3/uL 0.33-0.92 EOS x10^3 (test code = 711-2) 0.27 10*3/uL 0.03-0.39 BASO x10^3 (test code = 704-7) 0.06 10*3/uL 0.01-0.07 Lab Interpretation (test code = 85018-5) Abnormal [facility] [id number] 06:40:00* Test Item Value Reference Range Interpretation Comme nts POCT PREG (test code = 1605) Negative On board controls acceptable with C Line (test code = 3574) Yes POCT PREG LOT # (test code = 3575) [id number] POCT PREG TEST DATE ( test code = 3576) 10/17/2024 Lab Interpretation (test cod e = 83731-3) Normal [facility] [id number] 06:17:00* Test Item Value Reference Range Interpretation Comme nts POCT PREG (test code = 1605) Negative On board controls acceptable with C Line (test code = 3574) Present POCT PREG LOT # (test code = 3575) [id number] POCT PREG TEST DATE ( test code = 3576) Lab Interpretation (test cod e = 18884-9) Normal [facility] [id number] 18:58:00* Test Item Value Reference Range Interpretation Comme nts POCT PREG (test code = 1605) negative Lab Interpretation (test cod e = 47518-8) Normal [facility] WITH [id number] 13:14:57* Test Item Value Reference Range Interpretation Comme nts WBC (test code = 6690-2) See_Comment [Automated messa ge] The system which generated this result transmitted reference range: 4.30 - 11.10 10*3/?L. The reference range was not used to interpret this result as normal/abnormal. RBC (test code = 789-8) See_Comment L [Automated messa ge] The system which generated this result transmitted reference range: 3.93 - 5.25 10*6/?L. The reference range was not used to interpret this result as normal/abnormal. HGB (test code = 718-7) 8.5 g/dL 11.6-15 L HCT (test code = 4544-3) 28.2 % 35.7-45.2 L MCV (test code = 787-2) 74.8 fL 80.6-95.5 L MCH (test code = 785-6) 22.5 pg 25.9-32.8 L MCHC (test code = 786-4) 30.1 g/dL 31.6-35.1 L RDW-SD (test code = 28769-9) 46.2 fL 39-49.9 RDW-CV (test code = 788-0) 17.0 % 12-15.5 H PLT (test code = 777-3) See_Comment H [Automated messa ge] The system which generated this result transmitted reference range: 166 - 358 10*3/?L. The reference range was not used to interpret this result as normal/abnormal. MPV (test code = 29942-4) 9.1 fL 9.5-12.9 L NRBC/100 WBC (test code = 3859334268) See_Comment [Automated CH Mack ssage] The system which generated this result transmitted reference range: 0.0 - 10.0 /100 WBCs. The reference range was not used to interpret this result as normal/abnormal. NRBC x10^3 (test code = 5866670390) See_Comment [Automated messa ge] The system which generated this result transmitted reference range: 10*3/?L. The reference range was not used to interpret this result as normal/abnormal. GRAN MAT (NEUT) % (test code = 770-8) 51.3 % IMM GRAN % (test code = 7297244098) 0.40 % LYMPH % (test code = 736-9) 37.0 % MONO % (test code = 5905-5) 8.5 % EOS % (test code = 713-8) 2.2 % BASO % (test code = 706-2) 0.6 % GRAN MAT x10^3(ANC) (test code = 8235226850) 4.26 10*3/uL 1.88-7.09 IMM GRAN x10^3 (test code = 9186802553) 0.03 10*3/uL 0-0.06 LYMPH x10^3 (test code = 731-0) 3.06 10*3/uL 1.32-3.29 MONO x10^3 (test code = 742-7) 0.70 10*3/uL 0.33-0.92 EOS x10^3 (test code = 711-2) 0.18 10*3/uL 0.03-0.39 BASO x10^3 (test code = 704-7) 0.05 10*3/uL 0.01-0.07 Lab Interpretation (test code = 97075-1) Abnormal [facility] [id number] 12:55:00* Test Item Value Reference Range Interpretation Comme nts POCT PREG (test code = 1605) negative On board controls acceptable with C Line (test code = 3574) present Lab Interpretation (test cod e = 43408-3) Normal [facility] [id number] 20:49:00* Test Item Value Reference Range Interpretation Comme nts POCT PREG (test code = 1605) negative On board controls acceptable with C Line (test code = 3574) yes POCT PREG LOT # (test code = 3575) [id number] POCT PREG TEST DATE ( test code = 3576) 08/14/2023 Lab Interpretation (test cod e = 89303-1) [facility] [id number] 08:01:55* Test Item Value Reference Range Interpretation Comme nts NA (test code = 9807798490) 138 mmol/L 135-145 K (test code = 3870883333) 4.2 mmol/L 3.5-5 CL (test code = 4967258202) 107 mmol/L 98-108 CO2 TOTAL (test code = 0348256241) 20 mmol/L 23-31 L AGAP (test code = 9129977687) 2-16 BUN (test code = 5702566303) 10 mg/dL 7-23 GLUCOSE (test code = 3775938737) 105 mg/dL 70-110 CREATININE (test code = 7872555806) 0.86 mg/dL 0.5-1.04 TOTAL BILI (test code = 2725607643) 0.1-1.1 L CALCIUM (test code = 4312846362) 9.1 mg/dL 8.6-10.6 T PROTEIN (test code = 4089738505) 7.4 g/dL 6.3-8.2 ALBUMIN (test code = 0180040355) 4.8 g/dL 3.5-5 ALK PHOS (test code = 8188626666) 81 U/L 34-122 ALTv (test code = 1742-6) 17 U/L 5-35 AST(SGOT) (test code = 2783615564) 19 U/L 13-40 eGFR (test code = 3450563010) mL/min/1.73m2 ELIA (test code = ELIA) Association of Glomerular Filtration Rate (GFR) and Staging of Kidney Disease* + --+ --+ ------+| GFR (mL/min/1.73 m2) ?| With Kidney Damage ?| ?Without Kidney Damage+ --------+ --------+ +| ?>90 ?| ?Stage one ?| ? Normal ?+ ---+ ---+ -------+| ?60-89 ?| ?Stage two ?| ? Decreased GFR ? + --+ --+ ------+| ?30-59 ?| ?Stage three ?| ? Stage three ? + --+ --+ ------+| ?15-29 ?| ?Stage four ? | ? Stage four ?+ ---+ ---+ -------+| ?<15 (or dialysis) ? ?| ?Stage five ? | ? Stage five ?+ ---+ ---+ -------+ *Each stage assumes the associated GFR level has been in effect for at least three months. ?Stages 1 to 5, with or without kidney disease, indicate chronic kidney disease. Notes: Determination of stages one and two (with eGFR >59mL/min/1.73 m2) requires estimation of kidney damage for at least three months as defined by structural or functional abnormalities of the kidney, manifested by either:Pathological abnormalities or Markers of kidney damage (including abnormalities in the composition of the blood or urine or abnormalities in imaging tests). Lab Interpretation (test code = 88464-9) [facility] [id number] 07:59:48* Test Item Value Reference Range Interpretation Comme nts LIPASE (test code = 1385699606) 94 U/L 0-220 Lab Interpretation (test cod e = 10419-1) Normal [facility] with Fwvmzgxczmxk1919-83-93 07:47:29* Test Item Value Reference Range Interpretation Comme nts WBC (test code = 6690-2) See_Comment [Automated messa ge] The system which generated this result transmitted reference range: 4.30 - 11.10 10*3/?L. The reference range was not used to interpret this result as normal/abnormal. RBC (test code = 789-8) See_Comment [Automated messa ge] The system which generated this result transmitted reference range: 3.93 - 5.25 10*6/?L. The reference range was not used to interpret this result as normal/abnormal. HGB (test code = 718-7) 8.7 g/dL 11.6-15 L HCT (test code = 4544-3) 29.0 % 35.7-45.2 L MCV (test code = 787-2) 73.6 fL 80.6-95.5 L MCH (test code = 785-6) 22.1 pg 25.9-32.8 L MCHC (test code = 786-4) 30.0 g/dL 31.6-35.1 L RDW-SD (test code = 96015-5) 40.2 fL 39-49.9 RDW-CV (test code = 788-0) 15.0 % 12-15.5 PLT (test code = 777-3) See_Comment [Automated messa ge] The system which generated this result transmitted reference range: 166 - 358 10*3/?L. The reference range was not used to interpret this result as normal/abnormal. MPV (test code = 75411-0) 10.1 fL 9.5-12.9 NRBC/100 WBC (test code = 0342447511) See_Comment [Automated CH Mack ssage] The system which generated this result transmitted reference range: 0.0 - 10.0 /100 WBCs. The reference range was not used to interpret this result as normal/abnormal. NRBC x10^3 (test code = 0165975188) See_Comment [Automated messa ge] The system which generated this result transmitted reference range: 10*3/?L. The reference range was not used to interpret this result as normal/abnormal. GRAN MAT (NEUT) % (test code = 770-8) 46.6 % IMM GRAN % (test code = 9913254893) 0.40 % LYMPH % (test code = 736-9) 40.7 % MONO % (test code = 5905-5) 8.6 % EOS % (test code = 713-8) 3.3 % BASO % (test code = 706-2) 0.4 % GRAN MAT x10^3(ANC) (test code = 6137133739) 3.40 10*3/uL 1.88-7.09 IMM GRAN x10^3 (test code = 8411397152) 0.03 10*3/uL 0-0.06 LYMPH x10^3 (test code = 731-0) 2.97 10*3/uL 1.32-3.29 MONO x10^3 (test code = 742-7) 0.63 10*3/uL 0.33-0.92 EOS x10^3 (test code = 711-2) 0.24 10*3/uL 0.03-0.39 BASO x10^3 (test code = 704-7) 0.03 10*3/uL 0.01-0.07 Lab Interpretation (test code = 41525-9) Abnormal [facility] [id number] 07:37:00* Test Item Value Reference Range Interpretation Comme nts POCT PREG (test code = 1605) Negative On board controls acceptable with C Line (test code = 3574) Present POCT PREG LOT # (test code = 3575) [id number] POCT PREG TEST DATE ( test code = 357) 08/14/2023 Lab Interpretation (test cod e = 28373-1) Normal [facility] [id number] 22:19:00* Test Item Value Reference Range Interpretation Comme nts POCT PREG (test code = 1605) NEGATIVE On board controls acceptable with C Line (test code = 3574) present POCT PREG LOT # (test code = 3575) [id number] POCT PREG TEST DATE ( test code = 3576) 07/14/2023 Lab Interpretation (test cod e = 75152-7) Normal [facility] [id number] 19:54:00* Test Item Value Reference Range Interpretation Comme nts POCT PREG (test code = 1605) negative On board controls acceptable with C Line (test code = 3574) present POCT PREG LOT # (test code = 3575) [id number] POCT PREG TEST DATE ( test code = 3576) 12/12/2022 Lab Interpretation (test cod e = 77841-3) [facility] 06:28:44* Test Item Value Reference Range Interpretation Comme nts FERRITIN (test code = 207) 3 NG/ML 13-200 L [id number] 04:37:13* Test Item Value Reference Range Interpretation Comme nts TRANSFERRIN (test code = 4936) 385 MG/DL 200-360 H UNLESS OTHERWISE INDICATED, ALL TESTING PERFORMED ATCLINICAL PATHOLOGY [employer] [address] [place] [address] ASPHALT RAKER: NICOLE GUSMAN M.D. CLIA NUMBER [id number] [place]. [id number] IRON BINDING CAPACITY AND IRON AND % [id number] 04:19:01* Test Item Value Reference Range Interpretation Comme nts IRON, SERUM (test code = 222) 11 UG/DL 37-145 L UNSATURATED IBC (test code = 08822) 442 UG/DL 112-347 H CALC TOTAL IBC (test code = 7) 453 UG/DL 250-450 H CALC % IRON SAT (test code = 2078) 2 % 20-50 L IRON BINDING CAPACITY AND IRON AND % [id number] 00:00:00* Test Item Value Reference Range Interpretation Comme nts IRON, SERUM (test code = 2) 11 UG/DL UNSATURATED IBC (test code = 07723) 442 UG/DL CALC TOTAL IBC (test code = 7) 453 UG/DL CALC % IRON SAT (test code = 9) 2 % [id number] 00:00:00* Test Item Value Reference Range Interpretation Comme nts FERRITIN (test code = 5) 3 NG/ML [id number] 00:00:00* Test Item Value Reference Range Interpretation Comme nts TRANSFERRIN (test code = 4936) 385 MG/DL IRON BINDING CAPACITY AND IRON AND % [id number] 00:00:00* Test Item Value Reference Range Interpretation Comme nts IRON, SERUM (test code = 2221) 11 UG/DL UNSATURATED IBC (test code = 80713) 442 UG/DL CALC TOTAL IBC (test code = 7) 453 UG/DL CALC % IRON SAT (test code = 9) 2 % [id number] 00:00:00* Test Item Value Reference Range Interpretation Comme nts FERRITIN (test code = 5) 3 NG/ML [id number] 00:00:00* Test Item Value Reference Range Interpretation Comme nts TRANSFERRIN (test code = 4936) 385 MG/DL IRON BINDING CAPACITY AND IRON AND % [id number] 00:00:00* Test Item Value Reference Range Interpretation Comme nts IRON, SERUM (test code = 2221) 11 UG/DL UNSATURATED IBC (test code = 50269) 442 UG/DL CALC TOTAL IBC (test code = 7) 453 UG/DL CALC % IRON SAT (test code = 2078) 2 % Darryl F [id number] 00:00:00* Test Item Value Reference Range Interpretation Comme nts FERRITIN (test code = 5) 3 NG/ML Darryl F [id number] 00:00:00* Test Item Value Reference Range Interpretation Comme nts TRANSFERRIN (test code = 4936) 385 MG/DL Darryl F AustinIRON BINDING CAPACITY AND IRON AND % [id number] 00:00:00* Test Item Value Reference Range Interpretation Comme nts IRON, SERUM (test code = 2221) 11 UG/DL UNSATURATED IBC (test code = 58319) 442 UG/DL CALC TOTAL IBC (test code = 7) 453 UG/DL CALC % IRON SAT (test code = 9) 2 % Darryl F [id number] 00:00:00* Test Item Value Reference Range Interpretation Comme nts FERRITIN (test code = 5) 3 NG/ML Darryl F [id number] 00:00:00* Test Item Value Reference Range Interpretation Comme nts TRANSFERRIN (test code = 4936) 385 MG/DL Darryl F EdilsonTSH, THIRD [id number] 06:15:03* Test Item Value Reference Range Interpretation Comme nts TSH, THIRD GENERATION (test code = 2821) 0.675 UIU/ML 0.400-4.100 UNLESS OTHERWISE INDICATED, ALL TESTING PERFORMED [facility] [employer] [address] [place] [address] ASPHALT RAKER: NICOLE GUSMAN M.D. CLIA NUMBER [id number] [place]. [id number] CBC W/AUTO DIFF WITH [id number] 02:57:36* Test Item Value Reference Range Interpretation Comme nts WBC (test code = 1001) 7.3 K/UL 3.5-11.0 RBC (test code = 1002) 4.31 M/UL 3.80-5.40 HEMOGLOBIN (test code = 1003) 9.2 G/DL 11.5-15.5 L HEMATOCRIT (test code = 1004) 30.5 % 34.0-45.0 L MCV (test code = 1005) 70.8 fL 80.0-99.0 L MCH (test code = 1006) 21.3 PG 25.0-33.0 L MCHC (test code = 1007) 30.2 G/DL 31.0-36.0 L RDW (test code = 1038) 15.8 % 11.5-15.0 H NEUTROPHILS (test code = 1008) 59.1 % LYMPHOCYTES (test code = 1010) 30.0 % MONOCYTES (test code = 1011) 8.2 % EOSINOPHILS (test code = 1012) 2.0 % BASOPHILS (test code = 1013) 0.4 % IMMATURE GRANYLOCYTES (test code = 1036) 0.3 % NUCLEATED RBCS (test code = 1065) 0.0 /100 WBC'S See_Comment [Automated messa ge] The system which generated this result transmitted reference range: 0.0. The reference range was not used to interpret this result as normal/abnormal. PLATELET COUNT (test code = 1015) 419 K/UL 130-400 H ABSOLUTE NEUTROPHILS (test code = 1066) 4.33 K/UL 1.50-7.50 ABSOLUTE LYMPHOCYTES (test code = 1067) 2.20 K/UL 1.00-4.00 ABSOLUTE MONOCYTES (test code = 1068) 0.60 K/UL 0.20-1.00 ABSOLUTE EOSINOPHILS (test code = 1040) 0.15 K/UL 0.00-0.50 ABSOLUTE BASOPHILS (test code = 1069) 0.03 K/UL 0.00-0.20 ABS IMMATURE GRANULOCYTES (test code = 1020) 0.02 K/UL 0.00-0.10 ABS NUCLEATED RBCS (test code = 17747) 0.00 K/UL 0.00-0.11 CBC W/AUTO [id number] 00:00:00* Test Item Value Reference Range Interpretation Comme nts WBC (test code = 1001) 7.3 K/UL RBC (test code = 1002) 4.31 M/UL HEMOGLOBIN (test code = 1003) 9.2 G/DL HEMATOCRIT (test code = 1004) 30.5 % MCV (test code = 1005) 70.8 fL MCH (test code = 1006) 21.3 PG MCHC (test code = 1007) 30.2 G/DL RDW (test code = 1038) 15.8 % NEUTROPHILS (test code = 1008) 59.1 % LYMPHOCYTES (test code = 1010) 30.0 % MONOCYTES (test code = 1011) 8.2 % EOSINOPHILS (test code = 1012) 2.0 % BASOPHILS (test code = 1013) 0.4 % IMMATURE GRANYLOCYTES (test code = 1036) 0.3 % NUCLEATED RBCS (test code = 1065) 0.0 /100WBC'S PLATELET COUNT (test code = 1015) 419 K/UL ABSOLUTE NEUTROPHILS (test c ode = 1066) 4.33 K/UL ABSOLUTE LYMPHOCYTES (test c ode = 1067) 2.20 K/UL ABSOLUTE MONOCYTES (test cod e = 1068) 0.60 K/UL ABSOLUTE EOSINOPHILS (test c ode = 1040) 0.15 K/UL ABSOLUTE BASOPHILS (test cod e = 1069) 0.03 K/UL ABS IMMATURE GRANULOCYTES (t est code = 1020) 0.02 K/UL ABS NUCLEATED RBCS (test cod e = 06676) 0.00 K/UL [id number] 00:00:00* Test Item Value Reference Range Interpretation Comme nts TSH, THIRD GENERATION (test code = 2821) 0.675 UIU/ML CBC W/AUTO [id number] 00:00:00* Test Item Value Reference Range Interpretation Comme nts WBC (test code = 1001) 7.3 K/UL RBC (test code = 1002) 4.31 M/UL HEMOGLOBIN (test code = 1003) 9.2 G/DL HEMATOCRIT (test code = 1004) 30.5 % MCV (test code = 1005) 70.8 fL MCH (test code = 1006) 21.3 PG MCHC (test code = 1007) 30.2 G/DL RDW (test code = 1038) 15.8 % NEUTROPHILS (test code = 1008) 59.1 % LYMPHOCYTES (test code = 1010) 30.0 % MONOCYTES (test code = 1011) 8.2 % EOSINOPHILS (test code = 1012) 2.0 % BASOPHILS (test code = 1013) 0.4 % IMMATURE GRANYLOCYTES (test code = 1036) 0.3 % NUCLEATED RBCS (test code = 1065) 0.0 /100WBC'S PLATELET COUNT (test code = 1015) 419 K/UL ABSOLUTE NEUTROPHILS (test c ode = 1066) 4.33 K/UL ABSOLUTE LYMPHOCYTES (test c ode = 1067) 2.20 K/UL ABSOLUTE MONOCYTES (test cod e = 1068) 0.60 K/UL ABSOLUTE EOSINOPHILS (test c ode = 1040) 0.15 K/UL ABSOLUTE BASOPHILS (test cod e = 1069) 0.03 K/UL ABS IMMATURE GRANULOCYTES (t est code = 1020) 0.02 K/UL ABS NUCLEATED RBCS (test cod e = 75797) 0.00 K/UL [id number] 00:00:00* Test Item Value Reference Range Interpretation Comme nts TSH, THIRD GENERATION (test code = 2821) 0.675 UIU/ML [id number] 00:00:00* Test Item Value Reference Range Interpretation Comme nts TSH, THIRD GENERATION (test code = 2821) 0.675 UIU/ML Darryl WaggonerCBC W/AUTO [id number] 00:00:00* Test Item Value Reference Range Interpretation Comme nts WBC (test code = 1001) 7.3 K/UL RBC (test code = 1002) 4.31 M/UL HEMOGLOBIN (test code = 1003) 9.2 G/DL HEMATOCRIT (test code = 1004) 30.5 % MCV (test code = 1005) 70.8 fL MCH (test code = 1006) 21.3 PG MCHC (test code = 1007) 30.2 G/DL RDW (test code = 1038) 15.8 % NEUTROPHILS (test code = 1008) 59.1 % LYMPHOCYTES (test code = 1010) 30.0 % MONOCYTES (test code = 1011) 8.2 % EOSINOPHILS (test code = 1012) 2.0 % BASOPHILS (test code = 1013) 0.4 % IMMATURE GRANYLOCYTES (test code = 1036) 0.3 % NUCLEATED RBCS (test code = 1065) 0.0 /100WBC'S PLATELET COUNT (test code = 1015) 419 K/UL ABSOLUTE NEUTROPHILS (test c ode = 1066) 4.33 K/UL ABSOLUTE LYMPHOCYTES (test c ode = 1067) 2.20 K/UL ABSOLUTE MONOCYTES (test cod e = 1068) 0.60 K/UL ABSOLUTE EOSINOPHILS (test c ode = 1040) 0.15 K/UL ABSOLUTE BASOPHILS (test cod e = 1069) 0.03 K/UL ABS IMMATURE GRANULOCYTES (t est code = 1020) 0.02 K/UL ABS NUCLEATED RBCS (test cod e = 65246) 0.00 K/UL Darryl [id number] 00:00:00* Test Item Value Reference Range Interpretation Comme nts TSH, THIRD GENERATION (test code = 2821) 0.675 UIU/ML Darryl WaggonerCBC W/AUTO [id number] 00:00:00* Test Item Value Reference Range Interpretation Comme nts WBC (test code = 1001) 7.3 K/UL RBC (test code = 1002) 4.31 M/UL HEMOGLOBIN (test code = 1003) 9.2 G/DL HEMATOCRIT (test code = 1004) 30.5 % MCV (test code = 1005) 70.8 fL MCH (test code = 1006) 21.3 PG MCHC (test code = 1007) 30.2 G/DL RDW (test code = 1038) 15.8 % NEUTROPHILS (test code = 1008) 59.1 % LYMPHOCYTES (test code = 1010) 30.0 % MONOCYTES (test code = 1011) 8.2 % EOSINOPHILS (test code = 1012) 2.0 % BASOPHILS (test code = 1013) 0.4 % IMMATURE GRANYLOCYTES (test code = 1036) 0.3 % NUCLEATED RBCS (test code = 1065) 0.0 /100WBC'S PLATELET COUNT (test code = 1015) 419 K/UL ABSOLUTE NEUTROPHILS (test c ode = 1066) 4.33 K/UL ABSOLUTE LYMPHOCYTES (test c ode = 1067) 2.20 K/UL ABSOLUTE MONOCYTES (test cod e = 1068) 0.60 K/UL ABSOLUTE EOSINOPHILS (test c ode = 1040) 0.15 K/UL ABSOLUTE BASOPHILS (test cod e = 1069) 0.03 K/UL ABS IMMATURE GRANULOCYTES (t est code = 1020) 0.02 K/UL ABS NUCLEATED RBCS (test cod e = 52651) 0.00 K/UL Darryl Waggoner Notes Date/Time Note Provider Source Darryl Arriaga [facility]2024-05-29 06:06:53 Pt given printed and verbal discharge instructions regarding vomiting, encouraged hydration. Prescriptions provided. Pt verbalized understanding of instructions, pt awake alert oriented, resp reg unlabored, skin w/d, color appropriate for race, moves all ext well,pt encouraged to follow up with pcp. Advised to seek medical attention for new/prolonged/worsening of symptoms. No adverse reaction to meds given in ER noted upon discharge. PIV d'cd, dressing to site, catheter in tact. Awake, alert oriented, resp reg unlabored, skin w/d, pt leaving amb with steady gait, in no apparent distress. T [facility]ly [facility]ast[facility] Charlotte[facility]gink[facility]00[facility] 02:07:22 Pt given urine cup and placed in the lobby, pt advice to notify nurse with any other concerns or if symptoms worsen. [facility] 02:02[facility]32 C/O states that she began vomited blood X5 since midnight. Kait Seay [facility] CharlotteZascgy2502-90-57 00:00:00 Darryl Arriaga [facility]2024-04-21 07:09:15 Pt given printed and verbal discharge instructions regarding Generalized abdominal pain, encouraged hydration, 3 Prescriptions provided Discussed ibuprofen and to take with food to avoid GI distress. Pt verbalized understanding of instructions, pt awake alert oriented, resp reg unlabored, skin w/d, color appropriate for race, moves all ext well,pt encouraged to follow up with pcp and or Gastroenterology Advised to seek medical attention for new/prolonged/worsening of symptoms, No adverse reaction to meds given in ER noted upon discharge PIV d'cd, dressing to site, catheter in tact. 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 Kait Seay [facility] CharlotteNnvuxe4693-31-67 03:51:00 [facility] Emergency Department Note Patient Name: Mini Zhu Date of : 1990 33 year old female Treatment Room: TX5/TX5 Primary Care Physician: Rachelle Ackerman [facility] Patient Escorted by: Family [5] Mode of Arrival: Personal means [1] EMS Treatment Prior to ED Arrival: HOSPITAL MONITOR treatment: None Travel and Exposure Screening: Symptoms Does patient have any of these symptoms?: (not recorded) Exposure Screening Has patient had contact with someone with a communicable disease in the last month?: (not recorded) Diseases exposed to:: (not recorded) Is Patient ?: (not recorded) Exposure Date: (not recorded) Chief Complaint: Chief Complaint Patient presents with Vomiting Blood History of Present Illness: Mini Zhu is a 33 year old female who presents to the ED with abdominal pain, N/V that began about an hour prior to arrival. Pt reports that she regularly vomits about 6 times per day chronically but this current episode is different in that the vomitus had some blood in it. Pt reports she had bright red blood in the vomitus. No fever or chills. No melena or hematochezia. 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 Abdominal Pain Pain location: Generalized Pain quality: dull Pain severity: Severe Onset quality: Sudden Duration: 1 hour Timing: Intermittent Context: retching Context: not alcohol use, not awakening from sleep, not diet changes, not eating, not laxative use, not medication withdrawal, not previous surgeries, not recent illness, not recent travel, not sick contacts, not suspicious food intake and not trauma Relieved by: None tried Worsened by: Nothing Ineffective treatments: None tried Associated symptoms: hematemesis, nausea and vomiting Associated symptoms: no anorexia, no chest pain, no constipation, no cough, no diarrhea, no dysuria, no fatigue, no fever, no flatus, no hematochezia, no hematuria, no melena, no shortness of breath, no sore throat and no vaginal bleeding Risk factors: no alcohol abuse, no aspirin use, not elderly, has not had multiple surgeries, no NSAID use, not obese and no recent hospitalization Past Medical History/Immunizations: Past Medical History: Diagnosis Date Bipolar disorder Mastitis Tetanus received in last 5 years: Unknown Childhood immunizations: Up-to-date Allergies: Allergies Allergen Reactions Gabapentin Other - See comments Manic episodes Past Social History: Substance & Sexual Activity No substance use or sexual activity history on file. Past Surgical History: Past Surgical History: Procedure Laterality Date BREAST SURGERY TUBAL LIGATION LEEP 6 weeks ago Review of Systems: Review of Systems Constitutional: Negative. Negative for fatigue and fever. HENT: Negative. Negative for sore throat. Eyes: Negative. Respiratory: Negative. Negative for cough and shortness of breath. Breasts: Negative. Cardiovascular: Negative for chest pain. Gastrointestinal: Positive for abdominal pain, hematemesis, nausea and vomiting. Negative for abdominal distention, anal bleeding, anorexia, blood in stool, constipation, diarrhea, flatus, hematochezia and melena. Genitourinary: Negative. Negative for dysuria, hematuria and vaginal bleeding. Musculoskeletal: Negative. Skin: Negative. Neurological: Negative. Psychiatric/Behavioral: Negative. All other systems reviewed and are negative. Endocrine: Endocrine negative Physical Exam: ED Triage Vitals [02/03/24 0401] Weight 81.6 kg (180 lb) Actual or estimated Height 1.575 m (5' 2") BP (!) 133/93 Pulse 93 Resp 16 Temp 37.3 ?C (99.2 ?F) Temp source Oral SpO2 100 % Measured on Room air Physical Exam Vitals and nursing note reviewed. Constitutional: General: She is not in acute distress. Appearance: Normal appearance. She is well-developed and normal weight. She is not ill-appearing, toxic-appearing or diaphoretic. HENT: Head: Normocephalic and atraumatic. Nose: Nose normal. Mouth/Throat: Mouth: Mucous membranes are moist. Pharynx: Oropharynx is clear. No oropharyngeal exudate or posterior oropharyngeal erythema. Eyes: General: No scleral icterus. Right eye: No discharge. Left eye: No discharge. Extraocular Movements: Extraocular movements intact. Conjunctiva/sclera: Conjunctivae normal. Pupils: Pupils are equal, round, and reactive to light. Neck: Thyroid: No thyromegaly. Cardiovascular: Rate and Rhythm: Normal rate and regular rhythm. Pulses: Normal pulses. Heart sounds: Normal heart sounds. No murmur heard. Pulmonary: Effort: Pulmonary effort is normal. No respiratory distress. Breath sounds: Normal breath sounds. No stridor. No wheezing, rhonchi or rales. Chest: Chest wall: No tenderness. Abdominal: General: Bowel sounds are normal. There is no distension. Palpations: Abdomen is soft. There is no mass. Tenderness: There is no abdominal tenderness. There is no right CVA tenderness, left CVA tenderness, guarding or rebound. Hernia: No hernia is present. Musculoskeletal: General: No swelling, tenderness, deformity or signs of injury. Normal range of motion. Cervical back: Normal range of motion and neck supple. No rigidity or tenderness. Lymphadenopathy: Cervical: No cervical adenopathy. Skin: General: Skin is warm and dry. Capillary Refill: Capillary refill takes less than 2 seconds. Coloration: Skin is not jaundiced or pale. Findings: No bruising, erythema, lesion or rash. Neurological: General: No focal deficit present. Mental Status: She is alert and oriented to person, place, and time. Cranial Nerves: No cranial nerve deficit. Sensory: No sensory deficit. Motor: No weakness or abnormal muscle tone. Coordination: Coordination normal. Gait: Gait normal. Deep Tendon Reflexes: Reflexes normal. Psychiatric: Behavior: Behavior normal. Thought Content: Thought content normal. Judgment: Judgment normal. Radiology: CT ABDOMEN PELVIS W CONTRAST Final Result ORDERING PHYSICIAN: SELENE PARRA CLINICAL HISTORY: Abdominal pain with nausea and vomiting COMPARISON: None available. TECHNIQUE: Helical CT images of the abdomen and pelvis obtained with IV contrast. CT scan performed according to ALARA (As low as reasonably achievable) principles. FINDINGS: Heart size is normal. Lower lungs are clear. The liver is mildly fatty infiltrated. There is a low-density lesion in the right hepatic lobe identified, measuring 1.3 cm. This may represent hemangioma, but is indeterminate. Further confirmation is recommended with a nonemergent abdominal MRI with and without contrast. The gallbladder, pancreas, spleen, and adrenals are unremarkable. The right kidney is unremarkable. There is a 3 mm nonobstructive stone in the midpole of the left kidney. There is no hydronephrosis bilaterally. Ovarian follicles are seen bilaterally. Trace fluid is seen in the pelvis. Appendix is normal. The bones are unremarkable. IMPRESSION No acute inflammatory process in the abdomen or pelvis Normal appendix Bilateral ovarian follicles with trace fluid in the pelvis. This is likely physiologic. 3 mm nonobstructive stone in the left kidney. There is no hydronephrosis bilaterally There is a low-density lesion in the right hepatic lobe identified, measuring 1.3 cm. This may represent hemangioma, but is indeterminate. Further confirmation is recommended with a nonemergent abdominal MRI with and without contrast. RL: [id number] Lab Results: Lab Results COMP. METABOLIC PANEL (80103) - Abnormal Result Value Ref Range NA 137 135 - 145 mmol/L K 4.1 3.5 - 5.0 mmol/L CL 106 98 - 108 mmol/L CO2 TOTAL 24 23 - 31 mmol/L AGAP 7 2 - 16 BUN 9 7 - 23 mg/dL GLUCOSE 96 70 - 110 mg/dL CREATININE 0.81 0.50 - 1.04 mg/dL TOTAL BILI 0.3 0.1 - 1.1 mg/dL CALCIUM 9.0 8.6 - 10.6 mg/dL T PROTEIN 7.6 6.3 - 8.2 g/dL ALBUMIN 4.4 3.5 - 5.0 g/dL ALK PHOS 112 34 - 122 U/L ALTv 78 (*) 5 - 35 U/L AST(SGOT) 53 (*) 13 - 40 U/L eGFR 99.1 mL/min/1.73m2 CBC WITH DIFF - Abnormal WBC 8.27 4.30 - 11.10 10*3/?L RBC 4.29 3.93 - 5.25 10*6/?L HGB 9.7 (*) 11.6 - 15.0 g/dL HCT 33.3 (*) 35.7 - 45.2 % MCV 77.6 (*) 80.6 - 95.5 fL MCH 22.6 (*) 25.9 - 32.8 pg MCHC 29.1 (*) 31.6 - 35.1 g/dL RDW-SD 46.7 39.0 - 49.9 fL RDW-CV 16.9 (*) 12.0 - 15.5 % PLT 377 (*) 166 - 358 10*3/?L MPV 9.4 (*) 9.5 - 12.9 fL NRBC/100 WBC 0.0 0.0 - 10.0 /100 WBCs NRBC x103<0.01 10*3/?L GRAN MAT (NEUT) % 36.1 % IMM GRAN % 0.20 % LYMPH % 47.6 % MONO % 10.6 % EOS % 4.8 % BASO % 0.7 % GRAN MAT x103(ANC) 2.97 1.88 - 7.09 10*3/uL IMM GRAN x103<0.03 0.00 - 0.06 10*3/uL LYMPH x1033.94 (*) 1.32 - 3.29 10*3/uL MONO x1030.88 0.33 - 0.92 10*3/uL EOS x1030.40 (*) 0.03 - 0.39 10*3/uL BASO x1030.06 0.01 - 0.07 10*3/uL URINALYSIS - Abnormal APPEARANCE Clear Clear COLOR Yellow Yellow PH 8.0 4.8 - 8.0 SP GRAVITY 1.016 1.003 - 1.030 GLU U QUAL Normal Normal BLOOD Negative Negative KETONES Negative Negative PROTEIN Negative Negative UROBILIN Normal Normal BILIRUBIN Negative Negative NITRITE Negative Negative LEUK TAMIKO 75/uL (*) Negative RBC/HPF 2 0 - 3 HPF WBC/HPF 5 0 - 5 HPF BACTERIA Few (*) Negative MUCOUS Slight (*) Negative LPF SQ EPITH 2 HPF LIPASE - Normal LIPASE 217 0 - 220 U/L POCT TEST - Normal POCT PREG Negative On board controls acceptable with C Line Yes POCT PREG LOT # [id number] POCT PREG TEST DATE 11/21/2024 RAPID STREP SCREEN FOR GROUP A - Normal Molecular Strep Negative Negative EBV-MONONUCLEOSIS SCREEN - Normal EBV Mononucleosis Screen Negative Negative THROAT CULTURE Orders and Treatments: Orders Placed This Encounter Procedures CT ABDOMEN PELVIS W CONTRAST Complete Metabolic Panel CBC with Differential Lipase, Serum Urinalysis POCT Test Rapid Strep Screen For Group A EBV-Mononucleosis Screen Throat Culture Orders Placed This Encounter Medications pantoprazole (PROTONIX) injection 40 mg FENTanyl PF (SUBLIMAZE (PF)) injection 50 mcg metoclopramide HCl (REGLAN) injection 10 mg iopamidol (ISOVUE 370-500 mL) injection 85 mL dicyclomine 20 mg tablet metoclopramide HCl 10 mg tablet pantoprazole (PROTONIX) 40 mg EC tablet First Provider Eval: ED Events Date/Time Event User Comments 02/03/24401 Medical Screening Begins SELENE PARRA MD -- 02/03/24401 First Provider Evaluation SELENE PARRA MD -- ED COURSE Diagnosis/Impression as of 02/03/24 0658 Vomiting, unspecified vomiting type, unspecified whether nausea present Generalized abdominal pain Chronic anemia Liver lesion, right lobe Procedures: Procedures MDM: Medical Decision Making Mini Zhu is a 33 year old female who is well known to tis department ppresenting to ED for evaluation of abdominal pain, N/V Problems Addressed: Chronic anemia: chronic illness or injury Generalized abdominal pain: chronic illness or injury Liver lesion, right lobe: chronic illness or injury Vomiting, unspecified vomiting type, unspecified whether nausea present: chronic illness or injury Amount and/or Complexity of Data Reviewed Labs: ordered. Decision-making details documented in ED Course. Radiology: ordered. Decision-making details documented in ED Course. Risk OTC drugs. Prescription drug management. Parenteral controlled substances. Risk Details: Will refer to Dr Arita GI Flowsheet Documentation: Scoring Tools: No data recorded Disposition/Condition: ED Disposition ED Disposition Disch - Home Condition Stable Comment -- Discharge Medications: Patient's Medications START taking these medications DICYCLOMINE 20 MG TABLET Take 1 tablet by mouth every 6 (six) hours as needed for Abdominal pain. METOCLOPRAMIDE HCL 10 MG TABLET Take 1 tablet by mouth every 6 (six) hours. PANTOPRAZOLE (PROTONIX) 40 MG EC TABLET Take 1 tablet by mouth in the morning. CONTINUE taking these medications which have NOT CHANGED ALBUTEROL 90 MCG/ACTUATION INHALER Inhale 2 Puffs every 4 (four) hours as needed for Wheezing or Shortness of Breath. AZITHROMYCIN (ZITHROMAX Z-RAMESH) 250 MG TABLET Take 2 tablets by mouth SEE-INSTRUCTIONS. Take 500 mg day 1, then 250 mg days 2 to 5. VQURATPDBC-IOBRJUXIMXCXD-TXHM 50-325-40 MG TABLET Take 1 tablet by mouth every 6 (six) hours as needed (Headache). CEPHALEXIN (KEFLEX) 500 MG CAPSULE Take 1 capsule by mouth in the morning and 1 capsule at noon and 1 capsule in the evening. DEXTROMETHORPHAN-GUAIFENESIN 10-100 MG/5 ML SOLUTION Take 10 mL by mouth every 6 (six) hours as needed for Cough. LORATADINE 10 MG TABLET Take 1 tablet by mouth at bedtime as needed for Allergies or Runny nose. LORATADINE-PSEUDOEPHEDRINE (CLARITIN-D 24 HOUR) 10-240 MG PER 24 HR TABLET Take 1 tablet by mouth in the morning. ONDANSETRON (ZOFRAN) 4 MG TABLET Take 1 tablet by mouth every 8 (eight) hours as needed for Nausea and Vomiting (N/V). ONDANSETRON 4 MG DISINTEGRATING TABLET Take 1 tablet by mouth every 4 (four) hours as needed for Nausea and Vomiting (N/V). START taking Modified Medications as Prescribed No medications on file STOP taking these medications No medications on file Follow-up: Contact information for follow-up Tommie Arita MD Specialty: IM-GASTROENTEROLOGY [facility] [id number] [place] [id number] Electronically signed by: Selene Parra MD 02/03/24 0658 [place] [id number] 00:43:46 Pt given printed and verbal discharge instructions regarding UTI/sinus infection, encouraged hydration, Prescriptions provided Discussed ibuprofen and to take with food to avoid GI distress, alternate with Tylenol to help with pain and/or fever Discussed antibiotic therapy and to take until all completed unless adverse reaction occurs - if occurs, discontinue medication and follow up with pcp/seek medical attention Pt verbalized understanding of instructions,pt encouraged to follow up with pcp Advised to seek medical attention for new/prolonged/worsening of symptoms, No adverse reaction to meds given in ER noted upon discharge Awake, alert oriented, resp reg unlabored, skin w/d, pt leaving in no apparent distress, T Ashly Gibson [place] [id number] 00:31:47 Pt notified covid test was inconclusive. She refuses additional covid swabbing. She reports continuing head congestion. Dr. Marie in to see pt at this time. [place] [id number] 22:22:36 Pt arrived ambulatory with c/o congestion. Pt states I have bad congestion, sneezing, coughing and headache. No fever. I vomited once prior to coming to the ED." Duyen Pereira [place] [id number] 05:22:47 Awake, alert oriented X4, respiratory even and unlabored,skin w/d color appropriate for race, moves all ext well, pt encouraged to follow up with pcp and or return as needed Pt given printed and verbal discharge instructions regarding Headache , patient verbralized understanding and signature obtained, patient denies any other concerns. Advised to seek medical attention for new/prolonged/worsening of symptoms, No adverse reaction to meds given in ER noted upon discharge Pt ambulated to [facility] with steady gait Kait Seay [facility] - [id number] 03:48:35 Pt arrived with c/ migraine headache off-and-on for 7 days. Pt took Midol at 6:30pm. Pt report the Midol help for about 30 minutes then the headache came back. Pt states she has tried Ibu, tylenol, and naproxen but none of these medications have helped her migraine. Nicole Patel [facility] - [id number] 03:43:00 [facility] Emergency Department Note Patient Name: Mini Zhu Date of : 1990 33 year old female [id number] Primary Care Physician: Rachelle Ackerman [facility] Patient Escorted by: Family [5] Mode of Arrival: Personal means [1] EMS Treatment Prior to ED Arrival: HOSPITAL MONITOR treatment: None Travel and Exposure Screening: Symptoms Does patient have any of these symptoms?: (not recorded) Exposure Screening Has patient had contact with someone with a communicable disease in the last month?: (not recorded) Diseases exposed to:: (not recorded) Is Patient ?: (not recorded) Exposure Date: (not recorded) Chief Complaint: Chief Complaint Patient presents with MIGRAINE History of Present Illness: Mini Zhu is a 33 year old female who presents to the ED for evaluation of a frontal headache that has been intermittent for the past 7 days. Pt has taken Tylenol, Motrin, Aleve without relief. No N/V. No fever or chills. Current headache said to be similar in quality and character as her usual migrainous episodes. 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 Headache Pain location: Frontal Quality: Stabbing Radiates to: Does not radiate Severity currently: 9/10 Severity at highest: 9/10 Onset quality: Gradual Duration: 7 days Timing: Intermittent Chronicity: Recurrent Similar to prior headaches: yes Context: not activity, not exposure to bright light, not caffeine, not coughing, not defecating, not eating, not stress, not exposure to cold air, not loud noise and not straining Relieved by: Nothing Worsened by: Nothing Ineffective treatments: Acetaminophen and NSAIDs Associated symptoms: no abdominal pain, no back pain, no blurred vision, no congestion, no cough, no diarrhea, no dizziness, no drainage, no ear pain, no eye pain, no facial pain, no fatigue, no fever, no focal weakness, no hearing loss, no loss of balance, no myalgias, no nausea, no near-syncope, no neck pain, no neck stiffness, no numbness, no paresthesias, no photophobia, no seizures, no sinus pressure, no sore throat, no swollen glands, no syncope, no tingling, no URI, no visual change, no vomiting and no weakness Risk factors: no anger, no family hx of SAH, does not have insomnia and lifestyle not sedentary Past Medical History/Immunizations: Past Medical History: Diagnosis Date Bipolar disorder Mastitis Migraine Anemia Tetanus received in last 5 years: No Childhood immunizations: Up-to-date Allergies: Allergies Allergen Reactions Gabapentin Other - See comments Manic episodes Past Social History: Substance & Sexual Activity No substance use or sexual activity history on file. Past Surgical History: Past Surgical History: Procedure Laterality Date BREAST SURGERY TUBAL LIGATION LEEP Procedure Review of Systems: Review of Systems Constitutional: Negative. Negative for fatigue and fever. HENT: Negative. Negative for congestion, ear pain, hearing loss, postnasal drip, sinus pressure and sore throat. Eyes: Negative. Negative for blurred vision, photophobia and pain. Respiratory: Negative. Negative for cough. Breasts: Negative. Cardiovascular: Negative. Negative for syncope and near-syncope. Gastrointestinal: Negative. Negative for abdominal pain, diarrhea, nausea and vomiting. Genitourinary: Negative. Musculoskeletal: Negative. Negative for back pain, myalgias, neck pain and neck stiffness. Skin: Negative. Neurological: Positive for headaches. Negative for dizziness, tremors, focal weakness, seizures, syncope, facial asymmetry, speech difficulty, weakness, light-headedness, numbness, paresthesias and loss of balance. Psychiatric/Behavioral: Negative. All other systems reviewed and are negative. Endocrine: Endocrine negative Physical Exam: ED Triage Vitals [12/26/23 0351] Weight 85.3 kg (188 lb 1.6 oz) Actual or estimated Actual Height 1.575 m (5' 2") BP 115/78 Pulse 98 Resp 12 Temp 37.5 ?C (99.5 ?F) Temp source Oral SpO2 100 % Measured on Room air Physical Exam Vitals and nursing note reviewed. Constitutional: General: She is not in acute distress. Appearance: Normal appearance. She is well-developed and normal weight. She is not ill-appearing or toxic-appearing. HENT: Head: Normocephalic and atraumatic. Nose: Rhinorrhea present. No congestion. Mouth/Throat: Mouth: Mucous membranes are moist. Pharynx: Oropharynx is clear. No oropharyngeal exudate. Eyes: General: No scleral icterus. Right eye: No discharge. Left eye: No discharge. Extraocular Movements: Extraocular movements intact. Conjunctiva/sclera: Conjunctivae normal. Pupils: Pupils are equal, round, and reactive to light. Neck: Thyroid: No thyromegaly. Cardiovascular: Rate and Rhythm: Normal rate and regular rhythm. Pulses: Normal pulses. Heart sounds: Normal heart sounds. No murmur heard. Pulmonary: Effort: Pulmonary effort is normal. No respiratory distress. Breath sounds: Normal breath sounds. No stridor. No wheezing, rhonchi or rales. Chest: Chest wall: No tenderness. Abdominal: General: Bowel sounds are normal. There is no distension. Palpations: Abdomen is soft. There is no mass. Tenderness: There is no abdominal tenderness. There is no right CVA tenderness, left CVA tenderness, guarding or rebound. Hernia: No hernia is present. Musculoskeletal: General: No swelling, tenderness, deformity or signs of injury. Normal range of motion. Cervical back: Normal range of motion and neck supple. No rigidity or tenderness. Right lower leg: No edema. Left lower leg: No edema. Lymphadenopathy: Cervical: No cervical adenopathy. Skin: General: Skin is warm and dry. Capillary Refill: Capillary refill takes less than 2 seconds. Coloration: Skin is not jaundiced or pale. Findings: No bruising, erythema, lesion or rash. Neurological: General: No focal deficit present. Mental Status: She is alert and oriented to person, place, and time. Cranial Nerves: No cranial nerve deficit. Sensory: No sensory deficit. Motor: No weakness or abnormal muscle tone. Coordination: Coordination normal. Gait: Gait normal. Deep Tendon Reflexes: Reflexes normal. Psychiatric: Behavior: Behavior normal. Thought Content: Thought content normal. Judgment: Judgment normal. Radiology: No orders to display Lab Results: Lab Results - No data to display Orders and Treatments: No orders of the defined types were placed in this encounter. Orders Placed This Encounter Medications liwasiroxh-bohmcoqfqvmfo-qybs (ESGIC) 50-325-40 mg tablet 1 tablet First Provider Eval: ED Events Date/Time Event User Comments 12/26/23 035 Medical Screening Begins SELENE PARRA MD -- 12/26/23 035 First Provider Evaluation SELENE PARRA MD -- ED COURSE Diagnosis/Impression as of 12/26/23 0440 Headache disorder Procedures: Procedures MDM: Medical Decision Making Mini Zhu is a 33 year old female with hx of migraine headache presents to the ED for evaluation of a headache that has been intermittent over the past one week Risk Prescription drug management. Flowsheet Documentation: Scoring Tools: No data recorded Disposition/Condition: ED Disposition ED Disposition Disch - Home Condition Stable Comment -- Discharge Medications: Patient's Medications START taking these medications No medications on file CONTINUE taking these medications which have NOT CHANGED ALBUTEROL 90 MCG/ACTUATION INHALER Inhale 2 Puffs every 4 (four) hours as needed for Wheezing or Shortness of Breath. CEPHALEXIN (KEFLEX) 500 MG CAPSULE Take 1 capsule by mouth in the morning and 1 capsule at noon and 1 capsule in the evening. LORATADINE 10 MG TABLET Take 1 tablet by mouth at bedtime as needed for Allergies or Runny nose. ONDANSETRON (ZOFRAN) 4 MG TABLET Take 1 tablet by mouth every 8 (eight) hours as needed for Nausea and Vomiting (N/V). ONDANSETRON 4 MG DISINTEGRATING TABLET Take 1 tablet by mouth every 4 (four) hours as needed for Nausea and Vomiting (N/V). START taking Modified Medications as Prescribed No medications on file STOP taking these medications No medications on file Follow-up: Contact information for follow-up Darryl Waggoner [facility] Relationship: PCP - General [facility] [id number] Demetrio Stout MD Specialty: PN-NEUROLOGY [facility] [address] [place] [id number] Electronically signed by: Selene Parra MD 12/26/23 0440 [id number] Patient discharged home. Follow up with pcp in 2-3 days. Return with worsening symptoms. Verbalized dc instructions. Signed paper work. [id number] 06:42:12 Bilateral lower abdominal pain on and off for month. Pain started this morning at 1230 and hasn't stopped. Saw by OB, US ordered pt unable to pay for it. Was instructed to got to ER if got worse. Vomited 3 time this am [place] [id number] 01:09:27 Pt given printed and verbal discharge instructions regarding n/v, encouraged hydration, Pt verbalized understanding of instructions, pt awake alert oriented, resp reg unlabored, skin w/d, color appropriate for race, moves all ext well,pt encouraged to follow up with pcp. Advised to seek medical attention for new/prolonged/worsening of symptoms. No adverse reaction to meds given in ER noted upon discharge Awake, alert oriented, resp reg unlabored, skin w/d, pt leaving amb with steady gait, in no apparent distress. [place] [id number] 00:35:00 PO challenge completed. Patient tolerating water and crackers. [place] [id number] 00:06:08 Patient arrived ambulatory to ED c/o vomiting. Patient states vomiting up her dinner and then vomiting "bright red chunks." Diarrhea x a couple of days. No medications taken HOSPITAL MONITOR. [place] [address]-01-29 00:03:00 [facility] Emergency Department Note Patient Name: Mini Zhu Date of : 1990 32 year old female Treatment Room: Room/bed info not found Primary Care Physician: Rachelle Ackerman [facility] Patient Escorted by: Family [5] Mode of Arrival: Personal means [1] EMS Treatment Prior to ED Arrival: HOSPITAL MONITOR treatment: None Travel and Exposure Screening: Symptoms Does patient have any of these symptoms?: (not recorded) Exposure Screening Has patient had contact with someone with a communicable disease in the last month?: (not recorded) Diseases exposed to:: (not recorded) Is Patient ?: (not recorded) Exposure Date: (not recorded) Chief Complaint: Chief Complaint Patient presents with Vomiting History of Present Illness: The patient presents from home for evaluation for vomiting and diarrhea that started yesterday. No sick contacts. No bad food exposure. No recent trips or travel or antibiotics. No medications taken for symptoms. She last vomited around 10:30 PM. She reports her emesis appeared to be bloody. She does not take any blood thinners. She is not lightheaded or dizzy. No history of alcohol abuse or liver disease. She also had a previous tubal ligation. Here for evaluation. Past Medical History/Immunizations: Past Medical History: Diagnosis Date Bipolar disorder Mastitis Tetanus received in last 5 years: Unknown Allergies: Allergies Allergen Reactions Gabapentin Other - See comments Manic episodes Past Social History: Substance & Sexual Activity No substance use or sexual activity history on file. Past Surgical History: Past Surgical History: Procedure Laterality Date BREAST SURGERY TUBAL LIGATION Review of Systems: Review of Systems Constitutional: Negative for chills and fever. Respiratory: Negative for cough and shortness of breath. Cardiovascular: Negative for chest pain. Gastrointestinal: Positive for diarrhea, nausea and vomiting. Negative for abdominal pain. Genitourinary: Negative for dysuria. Musculoskeletal: Negative for arthralgias, neck pain and neck stiffness. Skin: Negative for wound. Neurological: Negative for dizziness. Psychiatric/Behavioral: Negative for agitation. Endocrine: Negative for goiter. Physical Exam: ED Triage Vitals [11/12/23 0009] Weight 83.6 kg (184 lb 3.2 oz) Actual or estimated Actual Height 1.575 m (5' 2") BP 135/86 Pulse 89 Resp 16 Temp 37.3 ?C (99.1 ?F) Temp source Oral SpO2 100 % Measured on Room air Physical Exam Vitals and nursing note reviewed. Constitutional: Appearance: Normal appearance. She is normal weight. HENT: Head: Normocephalic and atraumatic. Cardiovascular: Rate and Rhythm: Normal rate and regular rhythm. Pulses: Normal pulses. Pulmonary: Effort: Pulmonary effort is normal. No respiratory distress. Breath sounds: No wheezing. Abdominal: General: There is no distension. Palpations: Abdomen is soft. There is no mass. Tenderness: There is no abdominal tenderness. There is no guarding. Hernia: No hernia is present. Musculoskeletal: General: Normal range of motion. Cervical back: Normal range of motion and neck supple. Skin: General: Skin is warm and dry. Neurological: General: No focal deficit present. Mental Status: She is alert and oriented to person, place, and time. Radiology: No orders to display Lab Results: Lab Results - No data to display EKG: If EKG completed, see Procedure Note. Orders and Treatments: No orders of the defined types were placed in this encounter. Orders Placed This Encounter Medications ondansetron (ZOFRAN-ODT) disintegrating tablet 4 mg maalox:diphenhydrAMINE:lidocaine 2 % viscous 1:1:1 (FIRST-MOUTHWASH BLM) oral suspension 15 mL First Provider Eval: ED Events Date/Time Event User Comments 11/12/235 Medical Screening Begins CHAYO SRIVASTAVA DO -- 11/12/235 First Provider Evaluation CHAYO SRIVASTAVA DO -- ED COURSE Diagnosis/Impression as of 11/12/23 010 Nausea and vomiting, unspecified vomiting type Diarrhea, unspecified type Procedures: Procedures MDM: Medical Decision Making The patient presents from home for evaluation for vomiting and diarrhea that started yesterday. No sick contacts. No bad food exposure. No recent trips or travel or antibiotics. No medications taken for symptoms. She last vomited around 10:30 PM and reports it appears to be bloody. She is not taking blood thinners. No history of liver disease or alcohol abuse. Vital signs are stable in ER. Her abdomen is soft and nontender on examination. Her conjunctiva are pink bilaterally. Offered the patient Zofran ODT versus IV Zofran for her nausea and vomiting. She does desire to try the Zofran ODT. Will give the patient a p.o. challenge approximately 20 minutes later. Anticipate discharge home later. 0105 - the patient is doing well in the ER. Her nausea and vomiting has resolved after the Zofran ODT. She is given a p.o. challenge and able to tolerate by mouth without difficulty. She does have a prescription for Zofran ODT at home already. She remained stable here in the ER and is okay for discharge home with PCP follow-up. Problems Addressed: Diarrhea, unspecified type: acute illness or injury Nausea and vomiting, unspecified vomiting type: acute illness or injury Risk Prescription drug management. Flowsheet Documentation: Scoring Tools: No data recorded Disposition/Condition: ED Disposition ED Disposition Disch - Home Condition Stable Comment -- Discharge Medications: Current Discharge Medication List CONTINUE these medications which have NOT CHANGED Details ondansetron 4 mg disintegrating tablet Take 1 tablet by mouth every 8 (eight) hours as needed for Nausea and Vomiting (N/V). Qty: 12 tablet, Refills: 0 Associated Diagnoses: COVID ondansetron (ZOFRAN) 4 mg tablet Take 1 tablet by mouth every 8 (eight) hours as needed for Nausea and Vomiting (N/V). Qty: 12 tablet, Refills: 0 Associated Diagnoses: Benign paroxysmal positional vertigo, unspecified laterality albuterol 90 mcg/actuation inhaler Inhale 2 Puffs every 4 (four) hours as needed for Wheezing or Shortness of Breath. Qty: 8.5 g, Refills: 0 Associated Diagnoses: Feeling of chest tightness loratadine 10 mg tablet Take 1 tablet by mouth at bedtime as needed for Allergies or Runny nose. Qty: 30 tablet, Refills: 0 Comments: For age 7 years and older Associated Diagnoses: Acute cough; Viral URI STOP taking these medications benzonatate 200 mg capsule Comments: Reason for Stopping: ibuprofen 600 mg tablet Comments: Reason for Stopping: glycerin/mineral oil, AGLO ENEMA, Enem Comments: Reason for Stopping: ketorolac 10 mg tablet Comments: Reason for Stopping: methocarbamoL 750 mg tablet Comments: Reason for Stopping: meclizine 25 mg tablet Comments: Reason for Stopping: benzonatate 200 mg capsule Comments: Reason for Stopping: fluticasone propionate 50 mcg/actuation nasal spray Comments: Reason for Stopping: ibuprofen 800 mg tablet Comments: Reason for Stopping: gabapentin 300 mg capsule Comments: Reason for Stopping: benzonatate 200 mg capsule Comments: Reason for Stopping: pukbykfwti-ztnqdyazhefor-cdhf 50-325-40 mg tablet Comments: Reason for Stopping: megestroL 40 mg tablet Comments: Reason for Stopping: tamsulosin 0.4 mg 24 hr capsule Comments: Reason for Stopping: ketorolac 10 mg tablet Comments: Reason for Stopping: Follow-up: Electronically signed by: Chayo Srivastava DO 11/12/23103 [facility]2024-01-13 20:56:44 Pt discharged home, given all education and information regarding s/s of worsening condition; prescription use; pain and fever management as well as the importance of follow up. Pt verbalized understanding. Alert and ambulatory to [facility] with family. Felix [facility] [id number] 20:24:32 Pt arrived ambulatory with complaints of viral symptoms x2 days. Pt is positive and she took home test today and is positive too. Pt was concerned because her fever was 101 and her husbands only hit 100f. Pt has n/v but hasn't taken her Zofran. R SECURITY ARCHITECT Cora Peraza [facility] Charlotte[facility]fu[facility]z3929-[facility]-93 06:48:38 Prescriptions provided Pt verbalized understanding of instructions, pt awake alert oriented, resp reg unlabored, skin w/d,color appropriate for race, moves all ext well,pt encouraged to follow up with pcp. Advised to seek medical attention for new/prolonged/worsening of symptoms. No adverse reaction to meds given in ER noted upon discharge Awake, alert oriented, resp reg unlabored, skin w/d, pt leaving amb with steady gait, in no apparent distress. [facility] HospitalIaftah2241-[facility] 05:26:28 Pt arrives ambulatory to ED c/o left sided lower abdominal pain. She reports that she came in last week and was found to have multiple gynecological issues and was given multiple prescriptions which she says has not helped her pain issue. LMP: 06/12/2023 [facility] Ashly Srivastava [facility] CharlotteYnvwpp5066-70-21 05:14:00 [facility] Emergency Department Note Patient Name: Mini Zhu Date of : 1990 32 year old female Treatment Room: [facility] [id number] Primary Care Physician: Rcahelle Ackerman [facility] Patient Escorted by: Family [5] Mode of Arrival: Personal means [1] EMS Treatment Prior to ED Arrival: HOSPITAL MONITOR treatment: None Travel and Exposure Screening: Symptoms Does patient have any of these symptoms?: (not recorded) Exposure Screening Has patient had contact with someone with a communicable disease in the last month?: (not recorded) Diseases exposed to:: (not recorded) Is Patient ?: (not recorded) Exposure Date: (not recorded) Chief Complaint: Chief Complaint Patient presents with Abdominal Pain History of Present Illness: .Mini Zhu is a 32 year old female who presents to the ED for evaluation of pain to left groin that radiates all the way down to the alonzo on the left. No trauma or injury. Has had hx of sciatica diagnosed at age 30. Pt took ibuprofen 800 mg without relief. No fever or chills. Denies any urinary symptoms.No weakness. 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: No Abdominal Pain Pain location: LLQ Pain quality: shooting Pain radiates to: Groin and L leg Pain severity: Severe Onset quality: Gradual Duration: 1 week Timing: Intermittent Chronicity: New Context: not awakening from sleep, not diet changes, not eating, not laxative use, not medication withdrawal, not previous surgeries, not recent illness, not recent travel, not retching, not sick contacts, not suspicious food intake and not trauma Relieved by: Nothing Worsened by: Movement and position changes Ineffective treatments: NSAIDs and OTC medications Associated symptoms: no anorexia, no belching, no chest pain, no chills, no constipation, no cough,no diarrhea, no dysuria, no fatigue, no fever, no flatus, no hematemesis, no hematochezia, no hematuria, no melena, no nausea, no shortness of breath, no sore throat, no vaginal bleeding, no vaginal discharge and no vomiting Risk factors: NSAID use Risk factors: not obese, not and no recent hospitalization Past Medical History/Immunizations: Past Medical History: Diagnosis Date Bipolar disorder Mastitis Tetanus received in last 5 years: No Allergies: No Known Allergies Past Social History: Substance & Sexual Activity No substance use or sexual activity history on file. Past Surgical History: Past Surgical History: Procedure Laterality Date BREAST SURGERY TUBAL LIGATION Review of Systems: Review of Systems Constitutional: Negative. Negative for chills, fatigue and fever. HENT: Negative. Negative for sore throat. Eyes: Negative. Respiratory: Negative. Negative for cough and shortness of breath. Breasts: Negative. Cardiovascular: Negative. Negative for chest pain. Gastrointestinal: Positive for abdominal pain. Negative for abdominal distention, anal bleeding, anorexia, blood in stool, constipation, diarrhea, flatus, hematemesis, hematochezia, melena, nausea, rectal pain and vomiting. Genitourinary: Negative. Negative for dysuria, hematuria, vaginal bleeding and vaginal discharge. Musculoskeletal: Negative. Skin: Negative. Neurological: Negative. Psychiatric/Behavioral: Negative. All other systems reviewed and are negative. Endocrine: Endocrine negative Physical Exam: ED Triage Vitals [06/24/23 0524] Weight 89.8 kg (198 lb) Actual or estimated Estimated by patient/family report Height 1.575 m (5' 2") BP 118/89 Pulse 95 Resp 18 Temp 36.8 ?C (98.2 ?F) Temp source Oral SpO2 100 % Measured on Room air Physical Exam Vitals and nursing note reviewed. Constitutional: General: She is not in acute distress. Appearance: Normal appearance. She is well-developed. She is not ill-appearing or toxic-appearing. HENT: Head: Normocephalic and atraumatic. Nose: Nose normal. No congestion or rhinorrhea. Mouth/Throat: Mouth: Mucous membranes are moist. Pharynx: No oropharyngeal exudate. Eyes: General: No scleral icterus. Right eye: No discharge. Left eye: No discharge. Extraocular Movements: Extraocular movements intact. Conjunctiva/sclera: Conjunctivae normal. Pupils: Pupils are equal, round, and reactive to light. Neck: Thyroid: No thyromegaly. Cardiovascular: Rate and Rhythm: Normal rate and regular rhythm. Pulses: Normal pulses. Heart sounds: Normal heart sounds. No murmur heard. Pulmonary: Effort: Pulmonary effort is normal. No respiratory distress. Breath sounds: Normal breath sounds. No stridor. No wheezing or rales. Chest: Chest wall: No tenderness. Abdominal: General: Bowel sounds are normal. There is no distension. Palpations: Abdomen is soft. Tenderness: There is no abdominal tenderness. There is no right CVA tenderness, left CVA tenderness, guarding or rebound. Musculoskeletal: General: No swelling, tenderness, deformity or signs of injury. Normal range of motion. Cervical back: Normal range of motion and neck supple. No rigidity or tenderness. Right lower leg: No edema. Left lower leg: No edema. Lymphadenopathy: Cervical: No cervical adenopathy. Skin: General: Skin is warm and dry. Capillary Refill: Capillary refill takes less than 2 seconds. Coloration: Skin is not jaundiced or pale. Findings: No bruising, erythema, lesion or rash. Neurological: General: No focal deficit present. Mental Status: She is alert and oriented to person, place, and time. Cranial Nerves: No cranial nerve deficit. Sensory: No sensory deficit. Motor: No weakness or abnormal muscle tone. Coordination: Coordination normal. Gait: Gait normal. Deep Tendon Reflexes: Reflexes normal. Psychiatric: Behavior: Behavior normal. Thought Content: Thought content normal. Judgment: Judgment normal. Radiology: No orders to display Lab Results: Lab Results - No data to display Orders and Treatments: No orders of the defined types were placed in this encounter. Orders Placed This Encounter Medications methylPREDNISolone sodium succinate (SOLU-MEDROL) injection 125 mg gabapentin 300 mg capsule First Provider Eval: ED Events Date/Time Event User Comments 06/24/23534 Medical Screening Begins SELENE PARRA MD -- 06/24/23534 First Provider Evaluation SELENE PARRA MD -- No notes of EC Admission Criteria type on file. ED COURSE Diagnosis/Impression as of 06/24/23 0633 Left sacral radiculopathy Procedures: Procedures MDM: Medical Decision Making Mini Zhu is a 32 year old female who presents to the ED with left sided low pelvic pain that radiates too the left alonzo Problems Addressed: Left sacral radiculopathy: acute illness or injury Risk OTC drugs. Prescription drug management. Flowsheet Documentation: Scoring Tools: No data recorded Disposition/Condition: ED Disposition ED Disposition Disch - Home Condition Stable Comment -- Discharge Medications: Patient's Medications START taking these medications GABAPENTIN 300 MG CAPSULE Take 1 capsule by mouth in the morning and 1 capsule at noon and 1 capsule in the evening. CONTINUE taking these medications which have NOT CHANGED AZITHROMYCIN 250 MG TABLET Take 1 tablet by mouth SEE-INSTRUCTIONS. Take 500 mg day 1, then 250 mg days 2 to 5. BENZONATATE 200 MG CAPSULE Take 1 capsule by mouth 3 (three) times daily as needed for Cough. [id number]-[id number] 50-325-40 MG TABLET Take 1 tablet by mouth every 4 (four) hours as needed for Pain (scale 7-10). IBUPROFEN 800 MG TABLET Take 1 tablet by mouth every 8 (eight) hours as needed for Pain (scale 4-6). KETOROLAC 10 MG TABLET Take 1 tablet by mouth every 6 (six) hours as needed for Pain (scale 7-10). LEVOCETIRIZINE 5 MG TABLET Take 1 tablet by mouth every evening. MEGESTROL 40 MG TABLET Take by mouth 2 tabs for first 7 days then 1 tablet by mouth daily for next 14 days. ONDANSETRON 4 MG DISINTEGRATING TABLET Take 1 tablet by mouth every 8 (eight) hours as needed for Nausea and Vomiting (N/V). ONDANSETRON 4 MG TABLET 1 or 2 tablets every 8 hours as needed for nausea TAMSULOSIN 0.4 MG 24 HR CAPSULE Take 1 capsule by mouth at bedtime. START taking Modified Medications as Prescribed No medications on file STOP taking these medications No medications on file Follow-up: Contact information for follow-up Jaime Rebolledo MD Specialty: ORT-ORTHOPAEDIC SURGERY [address] [place] [id number] Electronically signed by: Selene Parra MD 06/24/23632 [facility] [id number] 01:30:00 Awake, alert oriented X4, respiratory even and unlabored,skin w/d color appropriate for race, movesall ext well, pt encouraged to follow up with pcp and or return as needed Pt given printed and verbal discharge instructions regarding upper respiratory tract infection , patient verbralized understanding and signature obtained, patient denies any other concerns. Prescriptions provided Discussed antibiotic therapy and to take until all completed unless adverse reaction occurs - if occurs, discontinue medication and follow up with pcp/seek medical attention Advised to seek medical attention for new/prolonged/worsening of symptoms, No adverse reaction to meds given in ER noted upon discharge Pt ambulated to [facility] with steady gait [facility] [id number] 23:50:11 C/O head congestion, chest congestion, body aches, sore throat since last Sunday, pt denies any fever. Kait Seay [facility] - [id number] 23:45:00 [facility] Emergency Department Note Patient Name: Mini Zhu Date of : 1990 32 year old female Treatment Room: Room/bed info not found Primary Care Physician: Rachelle Ackerman [facility] Patient Escorted by: Family [5] Mode of Arrival: Personal means [1] EMS Treatment Prior to ED Arrival: HOSPITAL MONITOR treatment: None Travel and Exposure Screening: Symptoms Does patient have any of these symptoms?: (not recorded) Exposure Screening Has patient had contact with someone with a communicable disease in the last month?: (not recorded) Diseases exposed to:: (not recorded) Is Patient ?: (not recorded) Exposure Date: (not recorded) Chief Complaint: No chief complaint on file. History of Present Illness: Onset 06/14 with generalized myalgia. (+) rhinorrhea. Sneezing. No ear pain. (+) sore throat. Tolerating fluids well. (+) appetite. Episodic cough, presently non-productive. No respiratory distress. (+) emesis x1. No diarrhea. No abdominal pain. No dysuria. Recent home COVID test and at a clinic, negative x2. Recent encounters: 1. 06/11/23. [facility] ED. Pelvic pain. PID prophylaxis in ED. US Pelvis, fibroid, right ovarian cyst, notorsion, thickened endometrium 2. 06/11/23. 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 Previously scheduled appointment. Trichomonas. Flagyl prescribed for patient and spouse. Started 06/17/23. History provided by: Patient and spouse Past Medical History/Immunizations: Past Medical History: Diagnosis Date Bipolar disorder Mastitis Tetanus received in last 5 years: Unknown Childhood immunizations: Up-to-date Allergies: No Known Allergies Past Social History: Substance & Sexual Activity No substance use or sexual activity history on file. Past Surgical History: Past Surgical History: Procedure Laterality Date BREAST SURGERY TUBAL LIGATION Review of Systems: Review of Systems Constitutional: Negative for appetite change, fatigue and fever. HENT: Positive for rhinorrhea, sneezing and sore throat. Negative for ear pain and trouble swallowing. Eyes: Negative. Respiratory: Positive for cough. Negative for shortness of breath and wheezing. Cardiovascular: Negative. Gastrointestinal: Positive for vomiting. Negative for abdominal pain, diarrhea and nausea. Genitourinary: Negative. Musculoskeletal: Positive for myalgias. Skin: Negative. Neurological: Negative. Psychiatric/Behavioral: Negative. Physical Exam: ED Triage Vitals [06/17/23 2352] Weight 89.9 kg (198 lb 3.2 oz) Actual or estimated Height 1.575 m (5' 2") BP 113/82 Pulse 100 Resp 18 Temp 37.4 ?C (99.3 ?F) Temp source Oral SpO2 100 % Measured on Room air Physical Exam Vitals and nursing note reviewed. Constitutional: General: She is not in acute distress. Appearance: Normal appearance. She is not ill-appearing, toxic-appearing or diaphoretic. HENT: Head: Normocephalic and atraumatic. Right Ear: Tympanic membrane, ear canal and external ear normal. Left Ear: Tympanic membrane, ear canal and external ear normal. Nose: Rhinorrhea present. Mouth/Throat: Mouth: Mucous membranes are moist. Pharynx: No oropharyngeal exudate or posterior oropharyngeal erythema. Eyes: Extraocular Movements: Extraocular movements intact. Conjunctiva/sclera: Conjunctivae normal. Cardiovascular: Rate and Rhythm: Normal rate and regular rhythm. Pulmonary: Effort: Pulmonary effort is normal. No respiratory distress. Breath sounds: Normal breath sounds. No wheezing, rhonchi or rales. Comments: No accessory muscle use; speaks easily; no coughing during interview, exam Abdominal: General: There is no distension. Palpations: Abdomen is soft. Tenderness: There is no abdominal tenderness. Musculoskeletal: General: Normal range of motion. Cervical back: Normal range of motion. Skin: General: Skin is warm and dry. Neurological: General: No focal deficit present. Mental Status: She is alert. Psychiatric: Mood and Affect: Mood normal. Behavior: Behavior normal. Thought Content: Thought content normal. Judgment: Judgment normal. Radiology: No orders to display Lab Results: Lab Results COVID-19 (ID NOW RAPID TESTING) - Normal Result Value Ref Range SARS-CoV-2 Rapid ID NOW Not Detected Not Detected RAPID INFLUENZA A/B - Normal Rapid Influenza A Negative Negative Rapid Influenza B Negative Negative RAPID RSV - Normal Rapid RSV Negative Negative EKG: If EKG completed, see Procedure Note. Orders and Treatments: Orders Placed This Encounter Procedures COVID-19 (ID NOW TESTING) RAPID INFLUENZA A/B RAPID RSV LAB ONLY COVID INTERPRETATION Orders Placed This Encounter Medications azithromycin (ZITHROMAX) tablet 500 mg codeine-guaifenesin (ROBITUSSIN AC) 10-100 mg/5 mL oral solution 10 mL azithromycin 250 mg tablet benzonatate 200 mg capsule ondansetron 4 mg tablet First Provider Eval: ED Events Date/Time Event User Comments 06/17/232347 Medical Screening Begins MICHELLE TERRY MD -- 06/17/232347 First Provider Evaluation MICHELLE TERRY MD -- No notes of EC Admission Criteria type on file. ED COURSE Diagnosis/Impression as of 06/18/23 0112 Upper respiratory tract infection, unspecified type Procedures: Procedures MDM: Medical Decision Making Primary impression: upper respiratory infection Secondary impression: recent trichomonas diagnosis on flagyl Differential Diagnoses, including but not limited to: COVID, Flu, RSV Problems Addressed: Upper respiratory tract infection, unspecified type: acute illness or injury Amount and/or Complexity of Data Reviewed Independent Historian: spouse Details: Self, Labs: ordered. Decision-making details documented in ED Course. Radiology: Details: N/a ECG/medicine tests: Details: N/a Discussion of management or test interpretation with external provider(s): N/a Risk OTC drugs. Prescription drug management. Risk Details: Unremarkable OBS in ED. Findings and plan discussed with patient. No findings that require acute hospitalization today. Flowsheet Documentation: Scoring Tools: No data recorded Disposition/Condition: ED Disposition ED Disposition Disch - Home Condition Stable Comment -- Discharge Medications: Patient's Medications START taking these medications AZITHROMYCIN 250 MG TABLET Take 1 tablet by mouth SEE-INSTRUCTIONS. Take 500 mg day 1, then 250 mg days 2 to 5. BENZONATATE 200 MG CAPSULE Take 1 capsule by mouth 3 (three) times daily as needed for Cough. ONDANSETRON 4 MG TABLET 1 or 2 tablets every 8 hours as needed for nausea CONTINUE taking these medications which have NOT CHANGED [id number]-[id number]-[id number] 50-325-40 MG TABLET Take 1 tablet by mouth every 4 (four) hours as needed for Pain (scale 7-10). IBUPROFEN 800 MG TABLET Take 1 tablet by mouth every 8 (eight) hours as needed for Pain (scale 4-6). KETOROLAC 10 MG TABLET Take 1 tablet by mouth every 6 (six) hours as needed for Pain (scale 7-10). LEVOCETIRIZINE 5 MG TABLET Take 1 tablet by mouth every evening. MEGESTROL 40 MG TABLET Take by mouth 2 tabs for first 7 days then 1 tablet by mouth daily for next 14 days. ONDANSETRON 4 MG DISINTEGRATING TABLET Take 1 tablet by mouth every 8 (eight) hours as needed for Nausea and Vomiting (N/V). TAMSULOSIN 0.4 MG 24 HR CAPSULE Take 1 capsule by mouth at bedtime. START taking Modified Medications as Prescribed No medications on file STOP taking these medications No medications on file Follow-up: PCP Electronically signed by: Michelle Terry MD 06/18/23112 [id number] 04[facility]46:51 Pt given printed and verbal discharge instructions regarding pelvic pain, right ovarian cyst, chronic anemia, encouraged hydration. Prescriptions provided. Pt verbalized understanding of instructions, pt awake alert oriented, resp reg unlabored, skin w/d,color appropriate for race, moves all ext well,pt encouraged to follow up with pcp and or ob-gyne. Advised to seek medical attention for new/prolonged/worsening of symptoms. No adverse reaction to meds given in ER noted upon discharge. PIV d'cd, dressing to site, catheter in tact. Awake, alert oriented, resp reg unlabored, skin w/d, pt leaving amb with steady gait, in no apparent distress, accompanied by her . [facility] [id number] 23:09:00 Patient states: "I've been having suprapubic pain for about a week now, worst was since . 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 I took Midol an hour ago for my painbut no relief." Yenny Blevins [facility] - [id number] 23:06:00 [facility] ED Transfer of Care Note. Off-going Physician:ANGELES Lieberman Time of Transfer of Care: 4:29 AM Summary: Mini Zhu is a 32 year old female presenting with chief complaint of Pelvic Pain. Pending prior to disposition: Imaging Current interventions: Medications ondansetron (ZOFRAN (PF)) injection 4 mg (4 mg Slow IV Push Given 06/12/239) NaCl 0.9% (NS) bolus infusion 1,000 mL (0 mL IV Infusion Stopped 06/12/23155) ketorolac (TORADOL) injection 30 mg (30 mg Slow IV Push Given 06/12/239) cefTRIAXone (ROCEPHIN) 1,000 mg in NaCl 0.9% (NS) 100 mL MINI-BAG (0 mg IV Piggyback Stopped 06/12/23155) morpHINE (4 mg/mL) injection 4 mg (4 mg Slow IV Push Given 06/12/23331) doxycycline hyclate (Vibramycin) capsule 100 mg (100 mg Oral Given 06/12/23331) metroNIDAZOLE (FLAGYL) tablet 500 mg (500 mg Oral Given 06/12/23331) Results: Labs Reviewed CBC WITH DIFF - Abnormal; Notable for the following components: Result Value RBC 3.89 (*) HGB 8.8 (*) HCT 28.6 (*) MCV 73.5 (*) MCH 22.6 (*) MCHC 30.8 (*) RDW-CV 17.9 (*) LYMPH x10^3 3.55 (*) All other components within normal limits COMP. METABOLIC PANEL (07972) - Abnormal; Notable for the following components: TOTAL BILI <0.1 (*) All other components within normal limits Narrative: Association of Glomerular Filtration Rate (GFR) and Staging of Kidney Disease* + + + + | GFR (mL/min/1.73 m2) | With Kidney Damage | Without Kidney Damage + + + + | >90 | Stage one | Normal + + + + | 60-89 | Stage two | Decreased GFR + + + + | 30-59 | Stage three | Stage three + + + + | 15-29 | Stage four | Stage four + + + + | <15 (or dialysis) | Stage five | Stage five + + + + *Each stage assumes the associated GFR level has been in effect for at least three months. Stages 1to 5, with or without kidney disease, indicate chronic kidney disease. Notes: Determination of stages one and two (with eGFR >59mL/min/1.73 m2) requires estimation of kidney damage for at least three months as defined by structural or functional abnormalities of the kidney, manifested by either: Pathological abnormalities or Markers of kidney damage (including abnormalities in the composition of the blood or urine or abnormalities in imaging tests). URINALYSIS - Abnormal; Notable for the following components: APPEARANCE Hazy (*) LEUK TAMIKO 500/uL (*) RBC/HPF 13 (*) WBC/HPF 18 (*) MUCOUS Slight (*) All other components within normal limits POCT TEST - Normal GC & CHLAMYDIA AMPLIFIED ASSAY TRICHOMONAS AMPLIFIED ASSAY US OVARY TORSION Final Result Impression: No evidence of ovarian torsion. Right ovarian corpus luteum. Intramural uterine fibroid. Severe endometrial thickening measuring 2.5 cm. AFC: [id number] RL: 460 End of report. Additional Notes: Diagnosis/Impression as of 06/12/23 0432 Pelvic pain Right ovarian cyst Intramural leiomyoma of uterus - (Uterine Fibroid) Endometrial hyperplasia Chronic anemia Medical Decision Making Mini Zhu is a 32 year old female whopresents to the ED with pelvic pain Problems Addressed: Chronic anemia: chronic illness or injury Endometrial hyperplasia: chronic illness or injury Details: Will need BANK NOTE DESIGNER follow-up Pt appropriately referred to OB-EMPLOYMENT ADVISOR Intramural leiomyoma of uterus: chronic illness or injury Details: Will need BANK NOTE DESIGNER follow-up Right ovarian cyst: chronic illness or injury Amount and/or Complexity of Data Reviewed Labs: ordered. Radiology: ordered. Risk Prescription drug management. Parenteral controlled substances. Disposition: Discharged Home Social Determinants of Health: none. Diagnoses that have been ruled out: None Diagnoses that are still under consideration: None Final diagnoses: Pelvic pain Right ovarian cyst Intramural leiomyoma of uterus Endometrial hyperplasia Chronic anemia ED Disposition ED Disposition Disch - Home Condition Stable Comment -- Contact information for follow-up Aysha Chandra MD Specialty: OG-OBSTETRICS & GYNECOLOGY [facility] [address] [place] [address] DR. [address] [place] [id number] Selene Parra MD 06/12/23 0432 [facility]2023-08-14 04:02:21 Pt given printed and verbal discharge instructions regarding hematemesis with nausea. Pt prescribed Nexium Pt verbalized understanding of instructions, pt awake alert oriented, resp reg unlabored, skin w/d,color appropriate for race, moves all ext well,pt encouraged to follow up with GI doctor. Advised to seek medical attention for new/prolonged/worsening of symptoms. No adverse reaction to meds given in ER noted upon discharge PIV d'cd, dressing to site, catheter in tact. Awake, alert oriented, resp reg unlabored, skin w/d, pt leaving amb with steady gait, in no apparent distress. [facility]2023-08-14 01:27:07 Pt vomited approx 200ml of water and bile. No blood noted. [facility]2023-08-14 00:35:04 Pt arrived ambulatory with complaints of one episode of vomiting blood. Pt reports she became nauseated and at first threw up bile but then threw up dark red blood. Pt denies dark stools or excessiveNSAID use. Pt has been having intermittent abdominal pain for a week. Hx: Migraines, Bipolar, Anemia [facility] Cora Peraza [facility]
--- NOTE | 2024-06-24 18:26 | RAD REPORT ---
EXAM DESCRIPTION: RAD - Chest Single View - 06/24/2024 6:20 pm CLINICAL HISTORY: CHEST PAIN Chest pain. COMPARISON: Chest Single View dated 07/09/2020 FINDINGS: Portable technique limits examination quality. The lungs are grossly clear. The heart is normal in size. No displaced fractures. IMPRESSION: No acute intrathoracic process suspected.
[2024-06-24 19:16] LABS: Absolute Eosinophils 0.2 K/uL (0-0.5); Absolute Lymphocytes (CBC) 2.4 K/uL (0.7-4.9); Absolute Monocytes 0.6 K/uL (0.1-1.3); Absolute Neutrophil 3.5 K/uL (1.8-8.0); Basophils % 0.7 % (0-1.3); Hematocrit 31.8 % (36.0-45.0); Hemoglobin 9.8 g/dL (12.0-15.0); Lymphocytes % 35.5 % (15.3-44.8); MCH 21.5 pg (27.0-35.0); MCHC 30.7 g/dL (32.0-36.0); MCV 69.9 fL (80-100); MPV 8.4 fL (7.6-11.3); Monocytes % 9.3 % (3.3-12.3); Neutrophils % 51.5 % (41.7-73.7); Platelets 394 thou/uL (152-406); RBC Red Blood Cell Count 4.55 M/uL (3.86-4.86); Red Cell Distribution Width 18.1 % (12.1-15.2)
[2024-06-24 19:38] LABS: Anion Gap 10.9 mEq/L (5.0-15.0); BUN Blood Urea Nitrogen 7 mg/dL (7-18); Bicarbonate 21 mEq/L (21-32); Glomerular Filtration Rate 88 ml/min (=/>90); Glucose Level 89 mg/dL (74-106); Potassium 3.9 mEq/L (3.5-5.1); Sodium Level 136 mEq/L (136-145)
[2024-06-24 19:47] LABS: Troponin High Sensitivity < 3.0 pg/mL (<58.9)
[2024-06-24] MEDS ORDERED: KETOROLAC 30 MG/ML INJ ONE (19:52)
--- NOTE | 2024-06-24 20:12 | EDPHYS ---
Physician Documentation [facility] Name: Judith Tobar Age: 33 yrs Sex: Female : 1990 Arrival Date: 06/24/2024 Time: 17:41 Bed 15 Private MD: ED Physician Dick Angulo HPI: 06/24 20:13 This 33 yrs old Female presents to ER via Ambulatory with complaints of Chest Pain, kb Breast Problem. 20:13 Pt is a 33 year old female who presents for breast tenderness that has been going on kb for 3-4 days and left sided chest pain that started today. . Historical: - Allergies: 17:52 No Known Allergies; iw - Home Meds: 17:52 Celexa 40 mg oral tablet daily [Active]; Abilify 30 mg oral tablet daily [Active]; iw hydroxyzine HCl 25 mg Oral tablet 2 times per day [Active]; lithium carbonate 600 mg Oral capsule 2 times per day [Active]; 20:26 Abilify Oral [Active]; Celexa Oral [Active]; kj2 - PMHx: 17:52 Anxiety; Bipolar disorder; insommnia; iw - PSHx: 17:52 tubal; breast surgery due to mastitis; iw - Immunization history:: Adult Immunizations unknown. - Infectious Disease History:: Denies. - Social history:: Smoking status: Patient denies any tobacco usage or history of. ROS: 20:08 Constitutional: As per HPI kb Exam: 18:56 Constitutional: This is a well developed, well nourished patient who is awake, alert, kb and in no acute distress. Head/Face: Normocephalic, atraumatic. ENT: Moist Mucous membranes Cardiovascular: Regular rate Respiratory: Respirations even and unlabored. No increased work of breathing. Talking in full sentences Abdomen/GI: Soft, non-tender. No distention Skin: Warm, dry with normal turgor. Normal color. MS/ Extremity: Pulses equal, no cyanosis. Neurovascular intact. Full, normal range of motion. Neuro: Awake and alert, GCS 15, oriented to person, place, time, and situation. Moves all extremities. Normal gait. 18:56 ECG was reviewed by the Attending Physician. 20:08 Chest/axilla: Inspection: normal, Breasts: tenderness, that is moderate, in both kb breasts, Vital Signs: 17:51 BP 129 / 92; Pulse 99; Resp 16; Temp 97.3; Pulse Ox 100% ; Weight 79.38 kg; Height 5 iw ft. 2 in. ; Pain 9/10; 18:31 BP 104 / 90; Pulse 88; Resp 16; Pulse Ox 98% on R/A; db 19:43 BP 124 / 98; Pulse 76; Resp 18; Temp 98; Pulse Ox 100% on R/A; kj2 20:26 BP 104 / 83; Pulse 85; Resp 18; Temp 98.1; Pulse Ox 99% on R/A; kj2 17:51 Body Mass Index 32.01 (79.38 kg, 157.48 cm) iw 17:51 Pain Scale: Adult iw MDM: 17:48 Patient medically screened. kb 20:08 Differential diagnosis: arrhythmia, infection, mi, gerd. Data reviewed: vital signs, kb nurses notes. Counseling: I had a detailed discussion with the patient and/or guardian regarding the historical points, exam findings, and any diagnostic results supporting the discharge/admit diagnosis, lab results, radiology results, the need for outpatient follow up, a family practitioner, to return to the emergency department if symptoms worsen or persist or if there are any questions or concerns that arise at home. 20:12 Test considered but Not performed: Ultrasound us breast considered but no masses, lumps kb appreciated. pt has diffuse tenderness . CT: ct chest considered but d-dimer negative. 06/24 17:59 Order name: Basic Metabolic Panel; Complete Time: 19:50 kb 06/24 17:59 Order name: CBC with Diff kb 06/24 17:59 Order name: D-Dimer; Complete Time: 20:09 kb 06/24 17:59 Order name: Troponin HS; Complete Time: 19:50 kb 06/24 17:59 Order name: XRAY Chest (1 view); Complete Time: 18:31 kb 06/24 17:59 Order name: Cardiac monitoring; Complete Time: 18:53 kb 06/24 17:59 Order name: EKG - Nurse/Tech; Complete Time: 18:53 kb 06/24 17:59 Order name: IV Saline Lock; Complete Time: 18:53 kb 06/24 17:59 Order name: Labs collected and sent; Complete Time: 18:53 kb 06/24 17:59 Order name: O2 Per Protocol; Complete Time: 18:53 kb 06/24 17:59 Order name: O2 Sat Monitoring; Complete Time: 18:53 kb EC:56 Rate is 84 beats/min. Rhythm is regular. QRS [place] is Normal. PA interval is normal at kb 142 msec. QRS interval is normal at 82 msec. QT interval is normal at 439 msec. Administered Medications: 19:55 Drug: Ketorolac IVP 15 mg IVP once Route: IVP; Site: right antecubital; kj2 20:20 Follow up: Response: No adverse reaction; Pain is decreased kj2 Disposition Summary: 06/24/24 20:12 Discharge Ordered Notes: Location: Home kb Condition: Stable kb Diagnosis - Chest pain, unspecified kb - Breast tenderness kb Followup: kb - With: Emergency Department - When: As needed - Reason: Worsening of condition Followup: kb - With: Private Physician - When: 2 - 3 days - Reason: Recheck today's complaints, Continuance of care, Re-evaluation by your physician Discharge Instructions: - Discharge Summary Sheet kb - Nonspecific Chest Pain, Adult, [id number] kb Forms: - Medication Reconciliation Form kb - Antibiotic Education kb - Prescription Opioid Use kb - Patient Portal Instructions kb - Leadership Thank You Letter kb Addendum: 06/28/2024 15:45 Co-signature as Attending Physician, Dick Angulo MD I agree with the assessment and c rodriguez plan of care. Signatures: Dispatcher [employer] [facility] Stacy Bass, EDGE INKER HEELS-C EDGE INKER HEELS-Dick Day MD MD cha Williams, Irene, RN RN iw Benton, Danielle, RN RN db Jordan, Krystal, RN RN kj2 Corrections: (The following items were deleted from the chart) 06/24 18:00 18:00 Chest Single View+RAD.[email or web address].[email or web address] ordered. [facility] 20:08 18:56 Constitutional: This is a well developed, well nourished patient who is awake, kb alert, and in no acute distress. Head/Face: Normocephalic, atraumatic. ENT: Moist Mucous membranes Cardiovascular: Regular rate Respiratory: Respirations even and unlabored. No increased work of breathing. Talking in full sentences Abdomen/GI: Soft, non-tender. No distention Skin: Warm, dry with normal turgor. Normal color. MS/ Extremity: Pulses equal, no cyanosis. Neurovascular intact. Full, normal range of motion. Neuro: Awake and alert, GCS 15, oriented to person, place, time, and situation. Moves all extremities. Normal gait. kb
--- NOTE | 2024-06-24 20:12 | ER ---
Nurse's Notes [facility] Name: Judith Tobar Age: 33 yrs Sex: Female : 1990 Arrival Date: 06/24/2024 Time: 17:41 Bed 15 Private MD: Diagnosis: Chest pain, unspecified;Breast tenderness Presentation: 06/24 17:51 Chief complaint: Patient states: for past 2-3 weeks my breasts have been tender, then iw started having left sided chest pain today. Coronavirus screen: At this time, the client does not indicate any symptoms associated with coronavirus-19. Ebola Screen: No symptoms or risks identified at this time. Initial Sepsis Screen: Does the patient meet any 2 criteria? No. Patient's initial sepsis screen is negative. Does the patient have a suspected source of infection? No. Patient's initial sepsis screen is negative. Risk Assessment: Do you want to hurt yourself or someone else? Patient reports no desire to harm self or others. Onset of symptoms was June 15, 2024. 17:51 Method Of Arrival: Ambulatory iw 17:51 Acuity: SHABBIR 3 iw Historical: - Allergies: 17:52 No Known Allergies; iw - Home Meds: 17:52 Celexa 40 mg oral tablet daily [Active]; Abilify 30 mg oral tablet daily [Active]; iw hydroxyzine HCl 25 mg Oral tablet 2 times per day [Active]; lithium carbonate 600 mg Oral capsule 2 times per day [Active]; 20:26 Abilify Oral [Active]; Celexa Oral [Active]; kj - PMHx: 17:52 Anxiety; Bipolar disorder; insommnia; iw - PSHx: 17:52 tubal; breast surgery due to mastitis; iw - Immunization history:: Adult Immunizations unknown. - Infectious Disease History:: Denies. - Social history:: Smoking status: Patient denies any tobacco usage or history of. Screenin:54 [facility] ED Fall Risk Assessment (Adult) History of falling in the last 3 months, db including since admission No falls in past 3 months (0 pts) Confusion or Disorientation No (0 pts) Intoxicated or Sedated No (0 pts) Impaired Gait No (0 pts) Mobility Assist Device Used No (0 pt) Altered Elimination No (0 pt) Score/Fall Risk Level 0 - 2 = Low Risk Oriented to surroundings, Maintained a safe environment. Abuse screen: Denies threats or abuse. Denies injuries from another. Nutritional screening: No deficits noted. On. Tuberculosis screening: No symptoms or risk factors identified. Assessment: 18:20 Reassessment: Patient appears in no apparent distress at this time. Patient and/or db family updated on plan of care and expected duration. Pain level reassessed. Patient is alert, oriented x 3, equal unlabored respirations, skin warm/dry/pink. General: Appears in no apparent distress. comfortable, Behavior is calm, cooperative. Pain: Complains of pain in chest Pain radiates to LEFT CHEST. Pain: Pain began suddenly. Cardiovascular: Reports chest pain. 19:42 General: Appears in no apparent distress. Behavior is calm, cooperative. Pain: kj2 Complains of pain in chest Pain currently is 6 out of 10 on a pain scale. Neuro: Level of Consciousness is awake, alert, Oriented to person, place, time, situation. Cardiovascular: Chest pain began 1 day ago. Vital Signs: 17:51 BP 129 / 92; Pulse 99; Resp 16; Temp 97.3; Pulse Ox 100% ; Weight 79.38 kg; Height 5 iw ft. 2 in. ; Pain 9/10; 18:31 BP 104 / 90; Pulse 88; Resp 16; Pulse Ox 98% on R/A; db 19:43 BP 124 / 98; Pulse 76; Resp 18; Temp 98; Pulse Ox 100% on R/A; kj2 20:26 BP 104 / 83; Pulse 85; Resp 18; Temp 98.1; Pulse Ox 99% on R/A; kj2 17:51 Body Mass Index 32.01 (79.38 kg, 157.48 cm) iw 17:51 Pain Scale: Adult iw ED Course: 17:45 Patient arrived in ED. ra3 17:48 Stacy Bass F[facility]-C [facility]. kb 17:48 Dick Angulo MD is Attending Physician. kb 17:52 Triage completed. iw 17:54 Arm band placed on. iw 18:17 Carmel Kam, RN is Primary Nurse. db 18:22 XRAY Chest (1 view) In Process Unspecified. EDMS 18:37 Initial lab(s) drawn, by me, sent to lab. Inserted saline lock: 20 gauge in right db antecubital area, using aseptic technique. Blood collected. Flushed with 10 mL NS. 18:54 Patient has correct armband on for positive identification. Bed in low position. Call db light in reach. Side rails up X 1. Client placed on continuous cardiac and pulse oximetry monitoring. NIBP monitoring applied. case monitor on. Pulse ox on. NIBP on. 19:15 Provided Education on: call light. kj2 19:40 Charisse Handley, RN is Primary Nurse. kj2 20:14 No provider procedures requiring assistance completed. kj2 20:18 Patient maintains SpO2 saturation greater than 95% on room air. kj2 20:18 IV discontinued, intact, bleeding controlled, No redness/swelling at site. Pressure kj2 dressing applied. Administered Medications: 19:55 Drug: Ketorolac IVP 15 mg IVP once Route: IVP; Site: right antecubital; kj2 20:20 Follow up: Response: No adverse reaction; Pain is decreased kj2 Medication: 19:15 VIS not applicable for this client. db Outcome: 20:12 Discharge ordered by . angela 20:17 Discharged to home ambulatory, kj2 20:17 Condition: stable 20:17 Discharge instructions given to patient, Instructed on discharge instructions, follow up and referral plans. Demonstrated understanding of instructions, follow-up care, 20:27 Patient left the ED. kj2 Signatures: Dispatcher [employer] EDStacy Sage, GAS SUBSTATION OPERATOR-C GAS SUBSTATION OPERATOR-Zohra Storm, RN Carmel Hernandez RN RN db Alva, Ruby ra3 Charisse Handley, RN RN kj2
[2024-06-24 20:54] VITALS: BP 104/83; TEMP 98.1; O2SAT 99
[2024-06-24 20:55] LABS: Blood Morphology Comment NOTED (NOT SEEN); Platelet Estimate ADEQ; White Blood Cell Scan OK (OK)
[2024-06-24 20:56] LABS: Anisocytosis 1+; Poikilocytosis 1+
--- NOTE | 2024-06-26 16:27 | EKG ---
Test Date: 2024-06-24 Test Time: 18:32:54 Transport Nurse: YASSINE MEASUREMENT RESULTS: Intervals: Rate: 84 KS: 142 QRSD: 82 QT: 372 QTc: 439 [place]: P: 59 KS: 142 QRS: 28 T: 42 INTERPRETIVE STATEMENTS: Normal sinus rhythm Normal ECG No previous ECG available for comparison Electronically Signed On 06-26-24 16:23:09 CDT by Shai Galeana
== END 2024-06-24 20:27 | disposition home or self-care (01) ==
LOC: ER 17:41
DX: R07.89 Other chest pain (principal); N64.4 Mastodynia
CPT/HCPCS: 36415; 71045; 80048; 84484; 85025; 85379; 93005; 96374; 99285

== ENCOUNTER 2024-08-04 18:52 | Emergency (ER) | payer SELFPAY ==
--- OUTSIDE RECORDS SUMMARY | 2024-08-04 18:59 | XMS REPORT | Continuity of Care Document ---
Author Name Unknown Address [address] [place] [address] [facility] thconnect Address 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 Name Role Phone Siri Hook Primary Care Physician [phone] DONI MARIE Attending Clinician Unavailable DONI MARIE Attending Clinician Unavailable Doni Marie MD Attending Clinician [phone] SELENE PARRA Attending Clinician Unavailable SELENE PARRA Attending Clinician Unavailable Selene Parra MD Attending Clinician [phone] CHAYO SRIVASTAVA Attending Clinician UnavailChayo Mueller DO Attending Clinician [phone] Kavita OJEDA Attending Clinician Unavailable Kavita Young Attending Clinician [phone] CHRISTY RG Attending Clinician Unavailable Danie Delarosa Attending Clinician Christy Rg NP Attending Clinician [phone] MEMO RESENDIZ Attending Clinician Unavailable Memo Resendiz MD Attending Clinician [phone] DANII ARRIAGA Attending Clinician Unavailable Luis Eduardo ANDERSON, Rose Attending Clinician [phone] Danii Ferrer Attending Clinician [phone] MICHELLE TERRY Attending Clinician Unavaildanika Terry MD, Michelle Godoy Attending Clinician + [phone] RAVEN LIEBERMAN Attending Clinician Unavailable Alden Gutiérrezya S Attending Clinician [phone] Doctor Unassigned, Puryear Attending Clinician U orlandoHERMILO Corona Attending Clinician Unavailable Ricks DO, Hermilo Attending Clinician [phone] SURAJ SCOTT Attending Clinician Unavaildanika Scott MD, Suraj Frederick Attending Clinician + [phone] CAT RUTLEDGE Attending Clinician Unavailable LISA TRAN Attending Clinician Unavailable Lisa Cruz Attending Clinician + [phone] CL GATES Attending Clinician Unavailable ROCEHLLE GOLD Attending Clinician Unavailable DONI MARIE Admitting Clinician Unavailable SELENE PARRA Admitting Clinician Unavailable SELENE PARRA Admitting Clinician Unavailable DONI MARIE Admitting Clinician Unavailable DANIE ONTIVEROS Admitting Clinician UnavailDANII Arguello Admitting Clinician Unavailable RAVEN LIEBERMAN Admitting Clinician Unavailable SURAJ SCOTT Admitting Clinician UnavailCAT Mars Admitting Clinician Unavailable CHRISTY RG Admitting Clinician Unavailable Payers Payer Name Policy Type Policy Number Effective Date Expirati on Date Source [facility] [id number] 2023 00:00:00 MEDICAID SSI PENDING PENDING 2024 00:00:00 Problems Condition Name Condition Details Condition Category Status Onset Date Resolution Date Last Treatment Date Treating Clinician Comments Source Lower abdominal pain Lower abdominal pain Disease Active 1- 00:00: 00 [facility] Ureterolit hiasis Ureterolit hiasis Disease Active 805 00:00: 00 [facility] No known active problems No known active problems Disease [facility] Allergies, Adverse Reactions, Alerts Allergy Name Allergy Type Status Severity Reaction(s) Onset Date Inactive Date Treating Clinician Comments Source GABAPENT IN DRUG INGREDI Active Other-Cmnt 2022-10 00:00: 00 [facility] Gabapent in Propensi ty to adverse reaction s Active Other - See comments 2022-10 00:00: [address] [facility] NO KNOWN ALLERGIE S Drug Class Active [facility] Social History Social Habit Start Date Stop Date Quantity Comments Source Gender identity [facility] Sexual orientation [facility] Exposure to SARS-CoV-2 (event) 2023-02-24 00:00:00 2023-03-06 22:59:00 Not sure [facility] Sex assigned at 1990 00:00:00 1990 00:00:00 [facility] Smoking Status Start Date Stop Date Source Tobacco smoking consumption unknown [facility] Medications Ordered Medication Name Filled Medication Name Start Date Stop Date Current Medication? Ordering Clinician Indication Dosage Frequency Signature (SIG) Comments Components Source metoclopram farzana HCl (REGLAN) injection 10 mg 2023-10 13:15: 00 07-25 13:23 :00 No 10mg 10 mg, Slow IV Push, ONCE, 1 dose, On Sun07/25/24 at 0815, [facility] pantoprazol e 40 mg EC tablet 2023-10 00:00: 00 Yes [id number] 40mg Take 1 tablet by mouth in the morning. [facility] metoclopram farzana HCl 10 mg tablet 2023-10 00:00: 00 Yes [id number] 10mg Take 1 tablet by mouth every 6 (six) hours. [facility] iopamidol (ISOVUE 370-500 mL) injection 85 mL 07-04 09:45: 00 07-04 09:45 :00 No [id number] 85mL 85 mL, Intravenou s, ONCE, 1 dose, On Sun07/04/24 at 0445, Routine [facility] ketorolac (TORADOL) injection 30 mg 07-04 09:15: 00 07-04 08:27 :00 No 30mg 30 mg, Slow IV Push, ONCE, 1 dose, On Sun07/04/24 at 0415, Routine [facility] Carafate 100 mg/mL oral suspension 03-18 00:00: 00 Yes mg/mL Darryl Waggoner 16.2 mg-0.1037 mg-0.0194 mg/5 mL oral elixir 03-18 00:00: 00 Yes -0.0194 mg/5 mL Darryl Waggoner Lidocaine Viscous 2 % mucosal solution 03-18 00:00: 00 Yes % Darryl Waggoner butalbital- acetaminoph en-caff (ESGIC) 50-325-40 mg tablet 1 tablet 03-12 10:45: 00 03-12 10:51 :00 No 1{tbl} 1 tablet, Oral, ONCE, 1 dose, On Sun03/12/24 at 0545, [facility] metoclopram farzana HCl (REGLAN) injection 10 mg 03-12 10:45: 03-12 10:52 :00 No 10mg 10 mg, Slow IV Push, ONCE, 1 dose, On Sun03/12/24 at 0545, [facility] iopamidol (ISOVUE 370-500 mL) injection 100 mL 03-12 10:15: 00 03-12 10:15 :00 No [id number] 100mL 100 mL, Intravenou s, ONCE, 1 dose, On Sun03/12/24 at 0515, Routine [facility] ketorolac (TORADOL) injection 30 mg 03-12 10:00: 00 03-12 09:01 :00 No 30mg 30 mg, Slow IV Push, ONCE, 1 dose, On Sun03/12/24 at 0500, Routine [facility] NaCl 0.9% (NS) IV infusion 1,000 mL 03-12 09:45: 00 03-12 10:39 :00 No 1000mL at 999 mL/hr, Intravenou s, ONCE, 1 dose, On Sun03/12/24 at 0445, Routine [facility] ondansetron (ZOFRAN (PF)) injection 4 mg 03-12 09:00: 00 03-12 09:01 :00 No 4mg 4 mg, Slow IV Push, ONCE, 1 dose, On Sun03/12/24 at 0400, [facility] butalbital- acetaminoph en-caff 50-325-40 mg tablet 03-12 00:00: 00 Yes [id number] 1{tbl} Take 1 tablet by mouth every 6 (six) hours as needed (Headache) . [facility] dicyclomine 20 mg tablet 03-12 00:00: 00 Yes [id number] 20mg Take 1 tablet by mouth every 6 (six) hours as needed for Abdominal pain. [facility] metoclopram farzana HCl 10 mg tablet 03-12 00:00: 00 07-25 00:00 :00 No [id number] 10mg Take 1 tablet by mouth every 6 (six) hours. [facility] ondansetron HCl 4 mg tablet 03-06 00:00: 00 Yes 1mg Darryl Ackerman Edilson iopamidol (ISOVUE 370-500 mL) injection 85 mL 02-02 11:00: 00 02-02 11:00 :00 No [id number] 85mL 85 mL, Intravenou s, ONCE, 1 dose, On Sun02/03/24 at 0600, Routine [facility] FENTanyl PF (SUBLIMAZE (PF)) injection 50 mcg 02-02 10:30: 00 02-02 09:52 :00 No 50ug 50 mcg, Slow IV Push, ONCE, 1 dose, On Sun02/03/24 at 0530, Routine [facility] metoclopram farzana HCl (REGLAN) injection 10 mg 02-02 09:30: 00 02-02 09:52 :00 No 10mg 10 mg, Slow IV Push, ONCE, 1 dose, On Sun02/03/24 at 0430, [facility] pantoprazol e (PROTONIX) injection 40 mg 02-02 09:30: 00 02-02 09:53 :00 No 40mg 40 mg, Slow IV Push, ONCE, 1 dose, On Sun02/03/[address] [facility] dicyclomine 20 mg tablet 02-02 00:00: 00 Yes [id number] 20mg Take 1 tablet by mouth every 6 (six) hours as needed for Abdominal pain. [facility] metoclopram farzana HCl 10 mg tablet 02-02 00:00: 00 07-25 00:00 :00 No [id number] 10mg Take 1 tablet by mouth every 6 (six) hours. [facility] pantoprazol e (PROTONIX) 40 mg EC tablet 02-02 00:00: 00 07-25 00:00 :00 No [id number] 40mg Take 1 tablet by mouth in the morning. [facility] loratadine (CLARITIN) tablet 10 mg 01-01 06:30: 00 01-01 18:29 :00 No 10mg 10 mg, Oral, ONCE, 1 dose, On Sun01/02/24 at 0130, [facility] azithromyci n (ZITHROMAX) tablet 500 mg 01-01 05:45: 00 01-01 05:39 :00 No 500mg 500 mg, Oral, ONCE, 1 dose, On Sun01/02/24 at 0045, N[facility]OLASA
Re ason for Anti-Infec tive: Documented Infection< br>Documen zoila Infection Site: HEENT
D uration of Therapy: Once (ED) [facility] azithromyci n (ZITHROMAX Z-RAMESH) 250 mg tablet 01-01 00:00: 00 Yes [id number] 500mg Take 2 tablets by mouth SEE-INSTRU CTIONS. Take 500 mg day 1, then 250 mg days [address] [facility] loratadine- pseudoephed rine (CLARITIN-D 24 HOUR) 10-240 mg per 24 hr tablet 01-01 00:00: 00 Yes [id number] 1{tbl} Take 1 tablet by mouth in the morning. [facility] dextrometho rphan-guaif enesin 10-100 mg/5 mL solution 01-01 00:00: 00 Yes [id number] 10mL Take 10 mL by mouth every 6 (six) hours as needed for Cough. [facility] butalbital- acetaminoph en-caff (ESGIC) 50-325-40 mg tablet 1 tablet 12-25 09:15: 00 12-25 09:09 :00 No 1{tbl} 1 tablet, Oral, ONCE, 1 dose, On Sun12/26/23 at 0415, [facility] butalbital- acetaminoph en-caff 50-325-40 mg tablet 12-25 00:00: 00 Yes [id number] 1{tbl} Take 1 tablet by mouth every 6 (six) hours as needed (Headache) . [facility] ketorolac (TORADOL) injection 30 mg 11-20 17:15: 00 11-20 16:28 :00 No 30mg 30 mg, Slow IV Push, ONCE, 1 dose, On Sun11/20/23 at 1115, [facility] iopamidol (ISOVUE 370-500 mL) injection 80 mL 11-20 14:30: 00 11-20 14:45 :00 No [id number] 80mL 80 mL, Intravenou s, ONCE, 1 dose, On Sun11/20/23 at 0845, Routine [facility] NaCl 0.9% (NS) bolus infusion 1,000 mL 11-20 14:15: 00 11-20 16:26 :00 No 1000mL at 999 mL/hr, 1,000 mL, IV Infusion, ONCE, 1 dose, On Sun11/20/23 at 0815, STAT [facility] cephALEXin (KEFLEX) 500 mg capsule 11-20 00:00: 00 Yes [id number] 500mg Take 1 capsule by mouth in the morning and 1 capsule at noon and 1 capsule in the evening. [facility] ondansetron 4 mg disintegrat ing tablet 11-20 00:00: 00 Yes [id number] 4mg Take 1 tablet by mouth every 4 (four) hours as needed for Nausea and Vomiting (N/V). [facility] naproxen 500 mg tablet 11-20 00:00: 00 12-01 05:59 :00 No [id number] 500mg Take 1 tablet by mouth in the morning and 1 tablet in the evening. Take with meals. Do all this for [address] [facility] maalox:diph enhydrAMINE :lidocaine 2 % viscous 1:1:1 (FIRST-MOUT HWASH BLM) oral suspension 15 mL 11-12 07:00: 00 11-12 06:55 :00 No 15mL 15 mL, Oral, ONCE, 1 dose, On Sun11/12/23 at 0100, Routine [facility] ondansetron (ZOFRAN-ODT ) disintegrat ing tablet 4 mg 11-12 07:00: 00 11-12 06:16 :00 No 4mg 4 mg, Oral, ONCE, 1 dose, On Sun11/12/23 at 0100, Routine [facility] benzonatate 200 mg capsule 10-27 00:00: 00 Yes [id number] 200mg Take 1 capsule by mouth 3 (three) times daily as needed for Cough for up to [address] [facility] ibuprofen 600 mg tablet 10-27 00:00: 00 Yes [id number] 600mg Take 1 tablet by mouth every 6 (six) hours as needed for Pain (scale 4-6). [facility] ondansetron 4 mg disintegrat ing tablet 10-27 00:00: 00 11-20 00:00 :00 No [id number] 4mg Take 1 tablet by mouth every 8 (eight) hours as needed for Nausea and Vomiting (N/V). [facility] lactulose (CEPHULAC) solution 30 mL 2022-10 01:45: 00 09-09 02:36 :00 No 30mL 30 mL, Oral, ONCE, 1 dose, On 09/08/23 at 1945, [facility] dexamethaso ne (DECADRON PHOSPHATE) injection 10 mg 2022-10 01:30: 00 09-09 02:40 :00 No 10mg 10 mg, Oral, ONCE, 1 dose, On 09/08/23 at 1930, Routine [facility] ketorolac (TORADOL) injection 30 mg 2022-10 01:30: 00 09-09 02:40 :00 No 30mg 30 mg, Intramuscu lar, ONCE, 1 dose, On 09/08/23 at 1930, Routine [facility] ketorolac 10 mg tablet 2022-10 00:00: 00 11-12 00:00 :00 No [id number] 10mg Take 1 tablet by mouth every 6 (six) hours as needed for Pain (scale 7-10). [facility] glycerin/mi neral oil, AGLO ENEMA, Enem 2022-10 00:00: 00 11-12 00:00 :00 No [id number] 225mL Insert 225 mL into rectum as needed for Constipati on. [facility] cefdinir 300 mg capsule 2022-10 00:00: 00 09-16 05:59 :00 No [id number] 300mg Take 1 capsule by mouth every 12 (twelve) hours for [address] [facility] lactulose 10 gram/15 mL solution 2022-10 00:00: 00 09-14 05:59 :00 No [id number] 15mL Take 15 mL by mouth in the morning for [address] [facility] HYDROcodone -acetaminop hen (NORCO 5) 5-325 mg tablet 1 tablet 2022-10 13:15: 00 09-07 13:33 :00 No 1{tbl} 1 tablet, Oral, ONCE, 1 dose, On Sun09/07/23 at 0715, [facility] diazePAM (VALIUM) tablet 5 mg 2022-10 13:15: 00 09-07 13:33 :00 No 5mg 5 mg, Oral, ONCE, 1 dose, On Sun09/07/23 at 0715, [facility] dexamethaso ne sod phos PF injection 10 mg 2022-10 13:15: 00 09-07 13:33 :00 No 10mg 10 mg, Oral, ONCE, 1 dose, On Sun09/07/23 at 0715, [address] [facility] methocarbam oL 750 mg tablet 2022-10 00:00: 00 11-12 00:00 :00 No [id number] 750mg Take 1 tablet by mouth every 6 (six) hours as needed for Pain (scale 1-3). [facility] ondansetron (ZOFRAN (PF)) injection 4 mg 2022-10 02:00: 00 09-04 02:30 :00 No 4mg 4 mg, Slow IV Push, ONCE, 1 dose, On Sun09/03/23 at 1999, [facility] meclizine (TRAVEL-EAS E (MECLIZINE) ) tablet 50 mg 2022-10 02:00: 00 09-04 02:30 :00 No 50mg 50 mg, Oral, ONCE, 1 dose, On Sun09/03/23 at 1999, [facility] ondansetron (ZOFRAN) 4 mg tablet 2022-10 00:00: 00 Yes [id number] 4mg Take 1 tablet by mouth every 8 (eight) hours as needed for Nausea and Vomiting (N/V). [facility] meclizine 25 mg tablet 2022-10 00:00: 00 11-12 00:00 :00 No [id number] 25mg Take 1 tablet by mouth every 6 (six) hours. [facility] ondansetron (ZOFRAN-ODT ) disintegrat ing tablet 4 mg 2023-1 0-12 08:30: 00 07-26 07:45 :00 No 4mg 4 mg, Oral, ONCE, 1 dose, On Ashley 07/26/23 at 0330, Routine [facility] proMETHazin e 25 mg tablet 2022-10 00:00: 00 09-03 00:00 :00 No [id number] 12.5mg Take 0.5 tablets by mouth every 6 (six) hours as needed for Nausea and Vomiting (N/V). [facility] loratadine 10 mg tablet 2022-10 00:00: 00 Yes [id number] 10mg Take 1 tablet by mouth at bedtime as needed for Allergies or Runny nose. [facility] albuterol 90 mcg/actuati on inhaler 2022-10 00:00: 00 Yes [id number] 2{puff} Inhale 2 Puffs every 4 (four) hours as needed for Wheezing or Shortness of Breath. [facility] benzonatate 200 mg capsule 2022-10 00:00: 00 11-12 00:00 :00 No [id number] 200mg Take 1 capsule by mouth 3 (three) times daily as needed for Cough. [facility] fluticasone propionate 50 mcg/actuati on nasal spray 2022-10 00:00: 00 11-12 00:00 :00 No [id number] 2{spray } Use 2 Sprays in each nostril in the morning. [facility] predniSONE 20 mg tablet 2022-10 00:00: 00 07-31 04:59 :00 No [id number] 40mg Take 2 tablets by mouth in the morning for [address] [facility] TAKE 1 TABLET DAILY. 2022-10 00:00: 00 01-30 00:00 :00 No 10 Darryl Waggoner ibuprofen 800 mg tablet 07-12 00:00: 00 11-12 00:00 :00 No [id number] 800mg Take 1 tablet by mouth every 8 (eight) hours. [facility] methylPREDN ISolone sodium succinate (SOLU-MEDRO L) injection 125 mg 06-24 17:00: 00 06-24 11:35 :44 No 125mg 125 mg, Intramuscu lar, Q6H, First dose on Sun06/24/23 at 1200, Until Discontinu ed, Routine [facility] gabapentin 300 mg capsule 06-24 00:00: 00 11-12 00:00 :00 No [id number] 300mg Take 1 capsule by mouth in the morning and 1 capsule at noon and 1 capsule in the evening. [facility] codeine-gua ifenesin (ROBITUSSIN AC) 10-100 mg/5 mL oral solution 10 mL 06-18 06:15: 06-18 06:23 :00 No 10mL 10 mL, Oral, ONCE, 1 dose, On Sun06/18/23 at 0115, [facility] azithromyci n (ZITHROMAX) tablet 500 mg 06-18 06:15: 06-18 06:24 :00 No 500mg 500 mg, Oral, ONCE, 1 dose, On Sun06/18/23 at 0115, [facility]
Re ason for Anti-Infec tive: Documented Infection< br>Documen zoila Infection Site: Respirator y
Durat ion of Therapy: [address] [facility] benzonatate 200 mg capsule 06-18 00:00: 00 11-12 00:00 :00 No [id number] 200mg Take 1 capsule by mouth 3 (three) times daily as needed for Cough. [facility] azithromyci n 250 mg tablet 06-18 00:00: 00 09-03 00:00 :00 No [id number] 250mg Take 1 tablet by mouth SEE-INSTRU CTIONS. Take 500 mg day 1, then 250 mg days [address] [facility] ondansetron 4 mg tablet 06-18 00:00: 00 09-03 00:00 :00 No [id number] 1 or 2 tablets every 8 hours as needed for nausea [facility] TAKE 1 TABLET BY MOUTH TWICE A DAY 06-14 00:00: 00 01-30 00:00 :00 No 500 Darryl Waggoner metroNIDAZO LE (FLAGYL) tablet 500 mg 06-12 08:45: 00 06-12 08:32 :00 No 500mg 500 mg, Oral, ONCE, 1 dose, On Sun06/12/23 at 0345, Routine
Reason for Anti-Infec tive: Empiric Therapy for Suspected Infection< br>Empiric Therapy Site: Pelvic
Duration of therapy: [address] [facility] doxycycline hyclate (Vibramycin ) capsule 100 mg 06-12 07:45: 00 06-12 08:32 :00 No 100mg 100 mg, Oral, ONCE, 1 dose, On Sun06/12/23 at 0245, N[facility]
Re ason for Anti-Infec tive: Documented Infection< br>Documen zoila Infection Site: Pelvic
Duration of Therapy: [address] [facility] morpHINE (4 mg/mL) injection 4 mg 06-12 07:45: 00 06-12 08:32 :00 No 4mg 4 mg, Slow IV Push, ONCE, 1 dose, On Sun06/12/23 at 0245, STAT [facility] ketorolac (TORADOL) injection 30 mg 06-12 06:15: 06-12 05:10 :00 No 30mg 30 mg, Slow IV Push, ONCE, 1 dose, On Sun06/12/23 at 0115, [facility] NaCl 0.9% (NS) bolus infusion 1,000 mL 06-12 06:15: 00 06-12 06:56 :00 No 1000mL at 999 mL/hr, 1,000 mL, IV Infusion, ONCE, 1 dose, On Sun06/12/23 at 0115, STAT [facility] cefTRIAXone (ROCEPHIN) 1,000 mg in NaCl 0.9% (NS) 100 mL MINI-BAG 06-12 05:15: 00 06-12 06:56 :00 No 1000mg 1,000 mg, IV Piggyback, ONCE, 1 dose, On Sun06/12/23 at 0015, Administer over 30 Minutes, 100 mL
Reas on for Anti-Infec tive: Empiric Therapy for Suspected Infection< br>Empiric Therapy Site: Pelvic
Duration of therapy: [address] [facility] ondansetron (ZOFRAN (PF)) injection 4 mg 06-12 05:15: 00 06-12 05:10 :00 No 4mg 4 mg, Slow IV Push, ONCE, 1 dose, On Sun06/12/23 at 0015, [facility] ibuprofen 800 mg tablet 06-12 00:00: 00 07-12 00:00 :00 No [id number] 800mg Take 1 tablet by mouth every 8 (eight) hours as needed for Pain (scale 4-6). [facility] TAKE 1 TABLET TWICE DAILY. 05-31 00:00: 00 01-30 00:00 :00 No 100 Darryl Waggoner iopamidol (ISOVUE 370-500 mL) injection 85 mL 05-28 08:30: 00 05-28 08:30 :00 No [id number] 85mL 85 mL, Intravenou s, ONCE, 1 dose, On Sun05/28/23 at 0330, Routine [facility] NaCl 0.9% (NS) bolus infusion 1,000 mL 05-28 08:15: 00 05-28 08:52 :00 No 1000mL at 999 mL/hr, 1,000 mL, IV Infusion, ONCE, 1 dose, On Sun05/28/23 at 0315, STAT [facility] pantoprazol e (PROTONIX) 80 mg in NaCl 0.9% (NS) 20 mL syringe 05-28 08:00: 00 05-28 08:02 :00 No 80mg 80 mg, IV Push, ONCE, 1 dose, On Sun05/28/23 at 0300, Administer over 2 Minutes, [address] [facility] ondansetron (ZOFRAN (PF)) injection 4 mg 05-28 06:45: 00 05-28 06:36 :00 No 4mg 4 mg, Slow IV Push, ONCE, 1 dose, On Sun05/28/23 at 0145, [facility] ondansetron 4 mg disintegrat ing tablet 05-28 00:00: 00 09-03 00:00 :00 No [id number] 4mg Take 1 tablet by mouth every 8 (eight) hours as needed for Nausea and Vomiting (N/V). [facility] esomeprazol e (NEXIUM) 40 mg capsule 05-28 00:00: 00 06-12 04:59 :00 No [id number] 40mg Take 1 capsule by mouth daily with breakfast for [address] [facility] INSTILL 4 DROPS IN THE AFFECTED EAR(S) TWICE DAILY 7-10 00:00: 00 01-30 00:00 :00 No 301 Darryl Waggoner dexamethaso ne (DECADRON PHOSPHATE) injection 10 mg 03-07 05:00: 00 03-07 03:56 :00 No 10mg 10 mg, Oral, ONCE, 1 dose, On Sun03/07/23 at 0000, Routine [facility] levocetiriz ine 5 mg tablet 03-06 00:00: 00 09-03 00:00 :00 No [id number] 5mg Take 1 tablet by mouth every evening. [facility] butorphanol (STADOL) injection 1 mg 02-02 08:00: 00 02-02 07:18 :00 No 1mg 1 mg, IV Push, ONCE, 1 dose, On Sun02/02/23 at 0300, [facility] ketorolac (TORADOL) injection 30 mg 02-02 07:45: 00 02-02 06:42 :00 No 30mg 30 mg, Slow IV Push, ONCE, 1 dose, On Sun02/02/23 at 0245, Routine [facility] metoclopram farzana HCl (REGLAN) injection 10 mg 02-02 06:45: 00 02-02 06:41 :00 No 10mg 10 mg, Slow IV Push, ONCE, 1 dose, On Sun02/02/23 at 0145, [facility] diphenhydrA MINE (BENADRYL) injection 25 mg 02-02 06:45: 00 02-02 06:43 :00 No 25mg 25 mg, Slow IV Push, ONCE, 1 dose, On Sun02/02/23 at 0145, STAT [facility] butalbital- acetaminoph en-caff 50-325-40 mg tablet 02-02 00:00: 00 11-12 00:00 :00 No [id number] 1{tbl} Take 1 tablet by mouth every 4 (four) hours as needed for Pain (scale 7-10). [facility] ondansetron (ZOFRAN) 4 mg tablet 02-02 00:00: 00 05-28 00:00 :00 No [id number] 4mg Take 1 tablet by mouth every 8 (eight) hours as needed for Nausea and Vomiting (N/V). [facility] iopamidol (ISOVUE 370-500 mL) injection 98 mL 10-24 21:00: 00 10-24 21:00 :00 No [id number] 98mL 98 mL, Intravenou s, ONCE, 1 dose, On Sun10/24/22 at 1500, Routine [facility] morpHINE (4 mg/mL) injection 4 mg 10-24 18:30: 00 10-24 19:03 :00 No 4mg 4 mg, Slow IV Push, ONCE, 1 dose, On Sun10/24/22 at 1230, STAT [facility] ondansetron (ZOFRAN (PF)) injection 4 mg 10-24 18:30: 00 10-24 19:01 :00 No 4mg 4 mg, Slow IV Push, ONCE, 1 dose, On Sun10/24/22 at 1230, [facility] NaCl 0.9% (NS) bolus infusion 1,000 mL 10-24 18:30: 00 10-24 21:40 :00 No 1000mL at 999 mL/hr, 1,000 mL, IV Infusion, ONCE, 1 dose, On Sun10/24/22 at 1230, STAT [facility] ondansetron 4 mg disintegrat ing tablet 10-24 00:00: 00 05-28 00:00 :00 No [id number] 4mg Take 1 tablet by mouth every 8 (eight) hours as needed for Nausea and Vomiting (N/V) for up to [address] [facility] cephALEXin (KEFLEX) 500 mg capsule 10-24 00:00: 00 11-01 05:59 :00 No [id number] 500mg Take 1 capsule by mouth 4 (four) times daily for [address] [facility] ibuprofen 600 mg tablet 10-24 00:00: 10-30 05:59 :00 No [id number] 600mg Take 1 tablet by mouth every 8 (eight) hours as needed for Pain (scale 4-6) for up to [address] [facility] dicyclomine 20 mg tablet 10-24 00:00: 00 10-30 05:59 :00 No [id number] 20mg Take 1 tablet by mouth 3 (three) times daily as needed for Abdominal pain for up to [address] [facility] megestroL 40 mg tablet 2021-10 00:00: 00 11-12 00:00 :00 No [id number] 100 Take by mouth 2 tabs for first 7 days then 1 tablet by mouth daily for next [address] [facility] cephALEXin (KEFLEX) 500 mg capsule 2021-10 00:00: 00 07-29 04:59 :00 No [id number] 100 500mg Take 1 capsule by mouth in the morning and 1 capsule at noon and 1 capsule in the evening. Do all this for [address] [facility] iopamidol (ISOVUE 370-500 mL) injection 65 mL 05-19 21:30: 00 05-19 21:45 :00 No [id number] 65mL 65 mL, Intravenou s, ONCE, 1 dose, On Sun05/19/22 at 1645, Routine [facility] ondansetron (ZOFRAN (PF)) injection 4 mg 05-19 21:30: 00 05-19 20:51 :00 No 4mg 4 mg, Slow IV Push, ONCE, 1 dose, On Sun05/19/22 at 1630, [facility] ketorolac (TORADOL) injection 30 mg 05-19 21:30: 00 05-19 20:51 :00 No 30mg 30 mg, Slow IV Push, ONCE, 1 dose, On Sun05/19/22 at 1630, Routine [facility] NaCl 0.9% (NS) bolus infusion 1,000 mL 05-19 21:30: 05-19 22:08 :00 No 1000mL at 999 mL/hr, 1,000 mL, IV Infusion, ONCE, 1 dose, On Sun05/19/22 at 1630, [facility] tamsulosin 0.4 mg 24 hr capsule 05-19 00:00: 00 11-12 00:00 :00 No [id number] .4mg Take 1 capsule by mouth at bedtime. [facility] traMADoL 50 mg tablet 05-19 00:00: 00 05-27 04:59 :00 No [id number] 50mg Take 1 tablet by mouth every 6 (six) hours as needed for Pain (scale 4-6) for up to 7 days. Indication s: acute pain [facility] ketorolac (TORADOL) injection 30 mg 05-13 08:45: 00 05-13 07:40 :00 No 30mg 30 mg, Slow IV Push, ONCE, 1 dose, On Sun05/13/22 at 0345, Routine [facility] ketorolac 10 mg tablet 7-30 00:00: 00 11-12 00:00 :00 No [id number] 10mg Take 1 tablet by mouth every 6 (six) hours as needed for Pain (scale 7-10). [facility] butalbital- acetaminoph en-caff (ESGIC) 50-325-40 mg tablet 2 tablet 04-01 23:15: 00 04-01 22:22 :00 No 2{tbl} 2 tablet, Oral, ONCE NOW, 1 dose, On 04/01/22 at 1815, Routine [facility] ketorolac (TORADOL) injection 30 mg 04-01 23:15: 00 04-01 22:21 :00 No 30mg 30 mg, Intramuscu lar, ONCE, 1 dose, On 04/01/22 at 1815, [facility] No known medications 04-01 18:30: [address] [facility] No known medications 10-25 13:51: [address] [facility] cefdinir 300 mg capsule 10-25 00:00: 00 11-02 05:59 :00 No [id number] 300mg Take 1 capsule by mouth 2 (two) times daily for [address] [facility] Iron (ferrous sulfate) 325 mg (65 mg iron) tablet 10-21 00:00: 00 Yes 1(65 mg iron) Darryl Waggoner Iron (ferrous sulfate) 325 mg (65 mg iron) tablet 10-21 00:00: 00 No 1(65 mg iron) Iron (ferrous sulfate) 325 mg (65 mg iron) tablet 10-21 00:00: 00 No 1(65 mg iron) medroxyprog esterone 10 mg tablet 10-20 00:00: 00 Yes 1mg Darryl Waggoner medroxyprog esterone 10 mg tablet - 00:00: 00 No 1mg medroxyprog esterone 10 mg tablet - 00:00: 00 No 1mg naproxen 500 mg tablet 10-17 00:00: 00 Yes 1mg Darryl Waggoner naproxen 500 mg tablet - 00:00: 00 No 1mg naproxen 500 mg tablet 10-17 00:00: 00 No 1mg ibuprofen 800 mg tablet 2020-10 00:00: 00 Yes 1mg Darryl Waggoner ibuprofen 800 mg tablet 2020-10 00:00: 00 No 1mg ibuprofen 800 mg tablet 2020-10 00:00: 00 No 1mg No known medications 04-08 21:44: [address] [facility] amitriptyli ne 25 mg tablet 03-03 00:00: 00 Yes 1mg Darryl Waggoner amitriptyli ne 25 mg tablet 03-03 00:00: 00 No 1mg amitriptyli ne 25 mg tablet 03-03 00:00: 00 No 1mg Dose Unknown 01-08 00:00: 00 Yes Darryl Waggoner Dose Unknown 27 00:00: 00 No Dose Unknown 27 00:00: 00 No Celexa 20 mg tablet 0 2-24 00:00: 00 Yes 1mg Darryl Waggoner gabapentin 600 mg tablet 0 2-24 00:00: 00 Yes 1mg Darryl Waggoner Dose Unknown 0 2-24 00:00: 00 Yes Darryl Waggoner Celexa 20 mg tablet 2019-0 2-24 00:00: 00 No 1mg gabapentin 600 mg tablet 0 2-24 00:00: 00 No 1mg Dose Unknown 0 2-24 00:00: 00 No Celexa 20 mg tablet 0 2-24 00:00: 00 No 1mg gabapentin 600 mg tablet 0 2-24 00:00: 00 No 1mg Dose Unknown 0 2-24 00:00: 00 No Vital Signs Vital Name Observation Time Observation Value Comments S ouremmanuel Systolic blood pressure 2024-07-25 14:30:00 124 mm[Hg] [facility] Diastolic blood pressure 2024-07-25 14:30:00 83 mm[Hg] [facility] Heart rate 2024-07-25 14:30:00 88 /min [facility] Respiratory rate 2024-07-25 14:30:00 14 /min [facility] Oxygen saturation in Arterial blood by Pulse oximetry 2024-07-25 14:30:00 99 /min [facility] Body temperature 2024-07-25 12:49:00 37.22 Jennifer [facility] Body height 2024-07-25 12:49:00 157.5 cm [facility] Body weight 2024-07-25 12:49:00 86.637 kg [facility] BMI 2024-07-25 12:49:00 34.93 kg/m2 [facility] Systolic blood pressure 2024-07-04 10:38:00 117 mm[Hg] [facility] Diastolic blood pressure 2024-07-04 10:38:00 79 mm[Hg] [facility] Heart rate 2024-07-04 10:38:00 82 /min [facility] Body temperature 2024-07-04 10:38:00 36.89 Jennifer [facility] Respiratory rate 2024-07-04 10:38:00 14 /min [facility] Oxygen saturation in Arterial blood by Pulse oximetry 2024-07-04 10:38:00 100 /min [facility] Body height 2024-07-04 07:28:00 157.5 cm [facility] Body weight 2024-07-04 07:28:00 79.379 kg [facility] BMI 2024-07-04 07:28:00 32.01 kg/m2 [facility] Systolic blood pressure 2024-03-12 11:00:00 127 mm[Hg] [facility] Diastolic blood pressure 2024-03-12 11:00:00 94 mm[Hg] [facility] Heart rate 2024-03-12 11:00:00 84 /min [facility] Body temperature 2024-03-12 11:00:00 36.61 Jennifer [facility] Respiratory rate 2024-03-12 11:00:00 14 /min [facility] Oxygen saturation in Arterial blood by Pulse oximetry 2024-03-12 11:00:00 100 /min [facility] Body height 2024-03-12 07:04:00 157.5 cm [facility] Body weight 2024-03-12 07:04:00 87 kg [facility] BMI 2024-03-12 07:04:00 35.08 kg/m2 [facility] Systolic blood pressure 2024-02-03 12:00:00 121 mm[Hg] [facility] Diastolic blood pressure 2024-02-03 12:00:00 82 mm[Hg] [facility] Heart rate 2024-02-03 12:00:00 80 /min [facility] Respiratory rate 2024-02-03 12:00:00 17 /min [facility] Oxygen saturation in Arterial blood by Pulse oximetry 2024-02-03 12:00:00 100 /min [facility] Body temperature 2024-02-03 09:01:00 37.33 Jennifer [facility] Body height 2024-02-03 09:01:00 157.5 cm [facility] Body weight 2024-02-03 09:01:00 81.647 kg [facility] BMI 2024-02-03 09:01:00 32.92 kg/m2 [facility] Systolic blood pressure 2024-01-02 05:38:00 109 mm[Hg] [facility] Diastolic blood pressure 2024-01-02 05:38:00 91 mm[Hg] [facility] Heart rate 2024-01-02 05:38:00 93 /min [facility] Body temperature 2024-01-02 05:38:00 36.28 Jennifer [facility] Respiratory rate 2024-01-02 05:38:00 20 /min [facility] Oxygen saturation in Arterial blood by Pulse oximetry 2024-01-02 05:38:00 99 /min [facility] Body height 2024-01-02 03:25:00 157.5 cm [facility] Body weight 2024-01-02 03:25:00 81.647 kg [facility] BMI 2024-01-02 03:25:00 32.92 kg/m2 [facility] Systolic blood pressure 2023-12-26 08:51:00 115 mm[Hg] [facility] Diastolic blood pressure 2023-12-26 08:51:00 78 mm[Hg] [facility] Heart rate 2023-12-26 08:51:00 98 /min [facility] Body temperature 2023-12-26 08:51:00 37.5 Jennifer [facility] Respiratory rate 2023-12-26 08:51:00 12 /min [facility] Body height 2023-12-26 08:51:00 157.5 cm [facility] Body weight 2023-12-26 08:51:00 85.322 kg [facility] BMI 2023-12-26 08:51:00 34.40 kg/m2 [facility] Oxygen saturation in Arterial blood by Pulse oximetry 2023-12-26 08:51:00 100 /min [facility] Systolic blood pressure 2023-11-20 16:29:00 120 mm[Hg] [facility] Diastolic blood pressure 2023-11-20 16:29:00 89 mm[Hg] [facility] Heart rate 2023-11-20 16:29:00 85 /min [facility] Respiratory rate 2023-11-20 16:29:00 16 /min [facility] Oxygen saturation in Arterial blood by Pulse oximetry 2023-11-20 16:29:00 97 /min [facility] Body temperature 2023-11-20 12:44:00 37.11 Jennifer [facility] Body height 2023-11-20 12:44:00 157.5 cm [facility] Body weight 2023-11-20 12:44:00 82.101 kg [facility] BMI 2023-11-20 12:44:00 33.11 kg/m2 [facility] Systolic blood pressure 2023-11-12 06:09:00 135 mm[Hg] [facility] Diastolic blood pressure 2023-11-12 06:09:00 86 mm[Hg] [facility] Heart rate 2023-11-12 06:09:00 89 /min [facility] Body temperature 2023-11-12 06:09:00 37.28 Jennifer [facility] Respiratory rate 2023-11-12 06:09:00 16 /min [facility] Body height 2023-11-12 06:09:00 157.5 cm [facility] Body weight 2023-11-12 06:09:00 83.553 kg [facility] BMI 2023-11-12 06:09:00 33.69 kg/m2 [facility] Oxygen saturation in Arterial blood by Pulse oximetry 2023-11-12 06:09:00 100 /min [facility] Systolic blood pressure 2023-10-28 02:30:00 121 mm[Hg] [facility] Diastolic blood pressure 2023-10-28 02:30:00 80 mm[Hg] [facility] Heart rate 2023-10-28 02:30:00 124 /min [facility] Body temperature 2023-10-28 02:30:00 38 Jennifer [facility] Respiratory rate 2023-10-28 02:30:00 20 /min [facility] Body weight 2023-10-28 02:30:00 86.183 kg [facility] BMI 2023-10-28 02:30:00 34.75 kg/m2 [facility] Oxygen saturation in Arterial blood by Pulse oximetry 2023-10-28 02:30:00 96 /min [facility] Systolic blood pressure 2023-09-09 02:47:12 116 mm[Hg] [facility] Diastolic blood pressure 2023-09-09 02:47:12 85 mm[Hg] [facility] Heart rate 2023-09-09 02:47:12 78 /min [facility] Body temperature 2023-09-09 02:47:12 36.28 Jennifer [facility] Respiratory rate 2023-09-09 02:47:12 18 /min [facility] Oxygen saturation in Arterial blood by Pulse oximetry 2023-09-09 02:47:12 98 /min [facility] Body height 2023-09-09 00:30:00 157.5 cm [facility] Body weight 2023-09-09 00:30:00 85.276 kg [facility] BMI 2023-09-09 00:30:00 34.39 kg/m2 [facility] Systolic blood pressure 2023-09-07 12:45:00 119 mm[Hg] [facility] Diastolic blood pressure 2023-09-07 12:45:00 83 mm[Hg] [facility] Heart rate 2023-09-07 12:45:00 101 /min [facility] Body temperature 2023-09-07 12:45:00 37.5 Jennifer [facility] Respiratory rate 2023-09-07 12:45:00 18 /min [facility] Body height 2023-09-07 12:45:00 157.5 cm [facility] Body weight 2023-09-07 12:45:00 82.872 kg [facility] BMI 2023-09-07 12:45:00 33.42 kg/m2 [facility] Oxygen saturation in Arterial blood by Pulse oximetry 2023-09-07 12:45:00 99 /min [facility] Systolic blood pressure 2023-09-04 04:00:00 112 mm[Hg] [facility] Diastolic blood pressure 2023-09-04 04:00:00 97 mm[Hg] [facility] Heart rate 2023-09-04 04:00:00 94 /min [facility] Body temperature 2023-09-04 04:00:00 36.89 Jennifer [facility] Oxygen saturation in Arterial blood by Pulse oximetry 2023-09-04 04:00:00 98 /min [facility] Respiratory rate 2023-09-04 03:00:00 17 /min [facility] Body height 2023-09-04 00:54:00 157.5 cm [facility] Body weight 2023-09-04 00:54:00 83.915 kg [facility] BMI 2023-09-04 00:54:00 33.84 kg/m2 [facility] Systolic blood pressure 2023-08-04 04:05:00 139 mm[Hg] [facility] Diastolic blood pressure 2023-08-04 04:05:00 77 mm[Hg] [facility] Heart rate 2023-08-04 04:05:00 104 /min [facility] Body temperature 2023-08-04 04:05:00 36.72 Jennifer [facility] Respiratory rate 2023-08-04 04:05:00 16 /min [facility] Body height 2023-08-04 04:05:00 157.5 cm [facility] Body weight 2023-08-04 04:05:00 85.957 kg [facility] BMI 2023-08-04 04:05:00 34.66 kg/m2 [facility] Oxygen saturation in Arterial blood by Pulse oximetry 2023-08-04 04:05:00 100 /min [facility] Systolic blood pressure 2023-07-26 07:38:00 134 mm[Hg] [facility] Diastolic blood pressure 2023-07-26 07:38:00 95 mm[Hg] [facility] Heart rate 2023-07-26 07:38:00 114 /min [facility] Body temperature 2023-07-26 07:38:00 37.28 Jennifer [facility] Respiratory rate 2023-07-26 07:38:00 18 /min [facility] Body height 2023-07-26 07:38:00 157.5 cm [facility] Body weight 2023-07-26 07:38:00 86.183 kg [facility] BMI 2023-07-26 07:38:00 34.75 kg/m2 [facility] Oxygen saturation in Arterial blood by Pulse oximetry 2023-07-26 07:38:00 99 /min [facility] Systolic blood pressure 2023-07-25 14:52:00 126 mm[Hg] [facility] Diastolic blood pressure 2023-07-25 14:52:00 96 mm[Hg] [facility] Heart rate 2023-07-25 14:52:00 98 /min [facility] Body temperature 2023-07-25 14:52:00 37 Jennifer [facility] Respiratory rate 2023-07-25 14:52:00 16 /min [facility] Oxygen saturation in Arterial blood by Pulse oximetry 2023-07-25 14:52:00 98 /min [facility] Body height 2023-07-25 12:33:00 157.5 cm [facility] Body weight 2023-07-25 12:33:00 86.456 kg [facility] BMI 2023-07-25 12:33:00 34.86 kg/m2 [facility] Systolic blood pressure 2023-07-12 12:34:00 127 mm[Hg] [facility] Diastolic blood pressure 2023-07-12 12:34:00 86 mm[Hg] [facility] Heart rate 2023-07-12 12:34:00 86 /min [facility] Body temperature 2023-07-12 12:34:00 36.72 Jennifer [facility] Respiratory rate 2023-07-12 12:34:00 16 /min [facility] Body height 2023-07-12 12:34:00 157.5 cm [facility] Body weight 2023-07-12 12:34:00 86.183 kg [facility] BMI 2023-07-12 12:34:00 34.75 kg/m2 [facility] Oxygen saturation in Arterial blood by Pulse oximetry 2023-07-12 12:34:00 98 /min [facility] Systolic blood pressure 2023-06-24 10:24:00 118 mm[Hg] [facility] Diastolic blood pressure 2023-06-24 10:24:00 89 mm[Hg] [facility] Heart rate 2023-06-24 10:24:00 95 /min [facility] Body temperature 2023-06-24 10:24:00 36.78 Jennifer [facility] Respiratory rate 2023-06-24 10:24:00 18 /min [facility] Body height 2023-06-24 10:24:00 157.5 cm [facility] Body weight 2023-06-24 10:24:00 89.812 kg [facility] BMI 2023-06-24 10:24:00 36.21 kg/m2 [facility] Oxygen saturation in Arterial blood by Pulse oximetry 2023-06-24 10:24:00 100 /min [facility] Systolic blood pressure 2023-06-18 04:52:00 113 mm[Hg] [facility] Diastolic blood pressure 2023-06-18 04:52:00 82 mm[Hg] [facility] Heart rate 2023-06-18 04:52:00 100 /min [facility] Body temperature 2023-06-18 04:52:00 37.39 Jennifer [facility] Respiratory rate 2023-06-18 04:52:00 18 /min [facility] Body height 2023-06-18 04:52:00 157.5 cm [facility] Body weight 2023-06-18 04:52:00 89.903 kg [facility] BMI 2023-06-18 04:52:00 36.25 kg/m2 [facility] Oxygen saturation in Arterial blood by Pulse oximetry 2023-06-18 04:52:00 100 /min [facility] Systolic blood pressure 2023-06-12 09:00:00 105 mm[Hg] [facility] Diastolic blood pressure 2023-06-12 09:00:00 74 mm[Hg] [facility] Heart rate 2023-06-12 09:00:00 74 /min [facility] Respiratory rate 2023-06-12 09:00:00 16 /min [facility] Oxygen saturation in Arterial blood by Pulse oximetry 2023-06-12 09:00:00 97 /min [facility] Body temperature 2023-06-12 04:09:00 36.89 Jennifer [facility] Body height 2023-06-12 04:09:00 157.5 cm [facility] Body weight 2023-06-12 04:09:00 86.183 kg [facility] BMI 2023-06-12 04:09:00 34.75 kg/m2 [facility] Systolic blood pressure 2023-05-28 08:00:00 123 mm[Hg] [facility] Diastolic blood pressure 2023-05-28 08:00:00 78 mm[Hg] [facility] Heart rate 2023-05-28 08:00:00 93 /min [facility] Oxygen saturation in Arterial blood by Pulse oximetry 2023-05-28 08:00:00 99 /min [facility] Respiratory rate 2023-05-28 06:00:00 18 /min [facility] Body temperature 2023-05-28 05:37:00 35.72 Jennifer [facility] Body height 2023-05-28 05:37:00 157.5 cm [facility] Body weight 2023-05-28 05:37:00 87.136 kg [facility] BMI 2023-05-28 05:37:00 35.14 kg/m2 [facility] Systolic blood pressure 2023-03-07 03:59:00 122 mm[Hg] [facility] Diastolic blood pressure 2023-03-07 03:59:00 77 mm[Hg] [facility] Heart rate 2023-03-07 03:59:00 97 /min [facility] Body temperature 2023-03-07 03:59:00 36.67 Jennifer [facility] Respiratory rate 2023-03-07 03:59:00 18 /min [facility] Body height 2023-03-07 03:59:00 157.5 cm [facility] Body weight 2023-03-07 03:59:00 79.379 kg [facility] BMI 2023-03-07 03:59:00 32.01 kg/m2 [facility] Oxygen saturation in Arterial blood by Pulse oximetry 2023-03-07 03:59:00 99 /min [facility] Heart rate 2023-02-02 07:48:00 73 /min [facility] Oxygen saturation in Arterial blood by Pulse oximetry 2023-02-02 07:48:00 98 /min [facility] Systolic blood pressure 2023-02-02 07:00:00 122 mm[Hg] [facility] Diastolic blood pressure 2023-02-02 07:00:00 79 mm[Hg] [facility] Respiratory rate 2023-02-02 07:00:00 15 /min [facility] Body temperature 2023-02-02 06:07:00 36.94 Jennifer [facility] Body height 2023-02-02 06:07:00 157.5 cm [facility] Body weight 2023-02-02 06:07:00 79.379 kg [facility] BMI 2023-02-02 06:07:00 32.01 kg/m2 [facility] Systolic blood pressure 2022-10-24 21:42:00 114 mm[Hg] [facility] Diastolic blood pressure 2022-10-24 21:42:00 74 mm[Hg] [facility] Heart rate 2022-10-24 21:42:00 72 /min [facility] Respiratory rate 2022-10-24 21:42:00 16 /min [facility] Oxygen saturation in Arterial blood by Pulse oximetry 2022-10-24 21:42:00 99 /min [facility] Body temperature 2022-10-24 18:03:00 37.33 Jennifer [facility] Body height 2022-10-24 18:03:00 157.5 cm [facility] Body weight 2022-10-24 18:03:00 79.379 kg [facility] BMI 2022-10-24 18:03:00 32.01 kg/m2 [facility] Systolic blood pressure 2022-07-21 12:46:00 115 mm[Hg] [facility] Diastolic blood pressure 2022-07-21 12:46:00 83 mm[Hg] [facility] Heart rate 2022-07-21 12:46:00 82 /min [facility] Body temperature 2022-07-21 12:46:00 36.89 Jennifer [facility] Respiratory rate 2022-07-21 12:46:00 18 /min [facility] Body weight 2022-07-21 12:46:00 78.019 kg [facility] BMI 2022-07-21 12:46:00 31.46 kg/m2 [facility] Oxygen saturation in Arterial blood by Pulse oximetry 2022-07-21 12:46:00 99 /min [facility] Systolic blood pressure 2022-05-19 22:00:00 128 mm[Hg] [facility] Diastolic blood pressure 2022-05-19 22:00:00 68 mm[Hg] [facility] Heart rate 2022-05-19 22:00:00 78 /min [facility] Body temperature 2022-05-19 22:00:00 36.78 Jennifer [facility] Respiratory rate 2022-05-19 22:00:00 18 /min [facility] Oxygen saturation in Arterial blood by Pulse oximetry 2022-05-19 22:00:00 100 /min [facility] Body height 2022-05-19 20:31:00 157.5 cm [facility] Body weight 2022-05-19 20:31:00 78.019 kg [facility] BMI 2022-05-19 20:31:00 31.46 kg/m2 [facility] Heart rate 2022-05-13 08:30:00 83 /min [facility] Oxygen saturation in Arterial blood by Pulse oximetry 2022-05-13 08:30:00 99 /min [facility] Systolic blood pressure 2022-05-13 08:00:00 111 mm[Hg] [facility] Diastolic blood pressure 2022-05-13 08:00:00 80 mm[Hg] [facility] Body temperature 2022-05-13 07:05:00 37 Jennifer [facility] Respiratory rate 2022-05-13 07:05:00 18 /min [facility] Body height 2022-05-13 07:05:00 157.5 cm [facility] Body weight 2022-05-13 07:05:00 76.658 kg [facility] BMI 2022-05-13 07:05:00 30.91 kg/m2 [facility] Systolic blood pressure 2022-04-01 21:47:00 124 mm[Hg] [facility] Diastolic blood pressure 2022-04-01 21:47:00 84 mm[Hg] [facility] Heart rate 2022-04-01 21:47:00 89 /min [facility] Body temperature 2022-04-01 21:47:00 37.22 Jennifer [facility] Respiratory rate 2022-04-01 21:47:00 22 /min [facility] Body weight 2022-04-01 21:47:00 77.111 kg [facility] BMI 2022-04-01 21:47:00 29.18 kg/m2 [facility] Oxygen saturation in Arterial blood by Pulse oximetry 2022-04-01 21:47:00 99 /min [facility] Systolic blood pressure 2021-10-25 19:42:00 103 mm[Hg] [facility] Diastolic blood pressure 2021-10-25 19:42:00 74 mm[Hg] [facility] Heart rate 2021-10-25 19:42:00 94 /min [facility] Body temperature 2021-10-25 19:42:00 37.67 Jennifer [facility] Respiratory rate 2021-10-25 19:42:00 18 /min [facility] Body weight 2021-10-25 19:42:00 70.761 kg [facility] BMI 2021-10-25 19:42:00 26.78 kg/m2 [facility] Oxygen saturation in Arterial blood by Pulse oximetry 2021-10-25 19:42:00 99 /min [facility] BP Systolic 2024-07-09 15:30:00 121 mm[Hg] Step hen [facility]il[facility] BP Diastolic 2024-07-09 15:30:00 83 mm[Hg] [facility] phen F [facility]il[facility] Weight Measured 2024-07-09 15:30:00 191.20 pounds Darryl F Edilson Height Measured 2024-07-09 15:30:00 63.00 inches [facility] Body Temperature 2024-07-09 15:30:00 97.30 degrees Darryl [facility]il[facility] Heart Rate 2024-07-09 15:30:00 101.00 /min [facility] Respiratory Rate 2024-07-09 15:30:00 18.00 /min Darryl F Edil[facility] BP Systolic 2024-03-18 13:49:00 124 mm[Hg] Step [...] 2023-12-17 08:18:00 81 mm[Hg] [facility] phen F [facility]il[facility] Weight Measured 2023-12-17 08:18:00 184.60 pounds Darryl [...] Measured 2023-11-14 13:15:00 63.00 inches Darryl F [facility] Body Temperature 2023-11-14 13:15:00 98.50 degrees Darryl [...] Temperature 2023-07-02 14:04:00 98.30 degrees Darryl F Edilson Heart Rate 2023-07-02 14:04:00 85.00 /min Beatris en F Edislon Respiratory Rate 2023-07-02 14:04:00 18.00 /min Darryl [...] Weight Measured 2023-04-23 08:58:00 191.20 pounds Darryl F Edilson Height Measured 2023-04-23 08:58:00 63.00 inches Darryl F Edilson Body Temperature 2023-04-23 08:58:00 98.70 degrees Darryl F Edilson Heart Rate 2023-04-23 08:58:00 100.00 /min Step hen F Edilson Respiratory Rate 2023-04-23 08:58:00 18.00 /min Darryl F Edilson BP Systolic 2022-09-25 10:10:00 117 mm[Hg] Step hen F Edilson BP Diastolic 2022-09-25 10:10:00 80 mm[Hg] Osito phen F Edilson Weight Measured 2022-09-25 10:10:00 174.00 pounds Darryl F Edilson Height Measured 2022-09-25 10:10:00 63.00 inches Darryl F Edilson Body Temperature 2022-09-25 10:10:00 98.40 degrees Darryl F Edilson Heart Rate 2022-09-25 10:10:00 100.00 /min Step hen F Edilson Respiratory Rate 2022-09-25 10:10:00 18.00 /min Darryl F Edilson BP Systolic 2022-05-19 08:57:00 110 mm[Hg] BP [...] Date / Time Performed Performing Clinician Source XR ABDOMEN ACUTE SERIES 2024-07-25 14:37:21 Do jasmina Marie [facility] POCT TEST 2024-07-25 13:23:00 Ryan Marie [facility] LIPASE 2024-07-25 13:21:00 Doni Marie [facility] COMP. METABOLIC PANEL ([id number]) 2024-07-25 13:21:00 Doni Marie [facility] CBC WITH DIFF 2024-07-25 13:21:00 Doni Marie [facility] URINALYSIS 2024-07-25 13:21:00 Doni Marie [facility] URINE DRUG (IMMUNOASSAY) - COMPREHENSIVE DRUG SCREEN W/O REFLEX 2024-07-25 13:21:00 Doni Marie [facility] CT ABDOMEN PELVIS W CONTRAST 2024-07-04 08:54:02 Selene Parra [facility] POCT TEST 2024-07-04 07:36:00 Selene Parra [facility] LIPASE 2024-07-04 07:33:00 Selene Parra [facility] COMP. METABOLIC PANEL ([id number]) 2024-07-04 07:33:00 Selene Parra [facility] CBC WITH DIFF 2024-07-04 07:33:00 Selene Parra [facility] URINALYSIS 2024-07-04 07:33:00 Selene Parra [facility] CT ABDOMEN PELVIS W CONTRAST 2024-03-12 09:15:57 Selene Parra [facility] LIPASE 2024-03-12 09:01:00 Selene Parra [facility] COMP. METABOLIC PANEL ([id number]) 2024-03-12 09:01:00 Selene Parra [facility] CBC WITH DIFF 2024-03-12 09:01:00 Selene Parra [facility] EBV-MONONUCLEOSIS SCREEN 2024-02-03 10:22:00 Funmilayo Parra [facility] CT ABDOMEN PELVIS W CONTRAST 2024-02-03 10:08:28 Selene Parra [facility] POCT TEST 2024-02-03 09:09:00 Selene aPrra [facility] LIPASE 2024-02-03 09:06:00 Selene Parra [facility] COMP. METABOLIC PANEL ([id number]) 2024-02-03 09:06:00 Selnee Parra [facility] CBC WITH DIFF 2024-02-03 09:06:00 Selene Parra [facility] URINALYSIS 2024-02-03 09:06:00 Selene Parra [facility] RAPID STREP SCREEN FOR GROUP A 2024-02-03 09:06:00 Selene Parra [facility] ASSIGNMENT OF BENEFITS 2024-01-02 04:22:29 Docto r Unassigned, [place] [facility] RAPID STREP SCREEN FOR GROUP A 2024-01-02 04:20:00 Doni Marie [facility] RAPID INFLUENZA A/B 2024-01-02 03:50:00 Ryan Marie [facility] COVID-19 (ID NOW RAPID TESTING) 2024-01-02 03:50:00 Doni Marie [facility] CONSENT/REFUSAL FOR DIAGNOSIS AND TREATMENT 2024-01-02 03:16:29 Doctor Unassigned, [place] [facility] CONSENT/REFUSAL FOR DIAGNOSIS AND TREATMENT 2023-12-26 08:43:59 Doctor Unassigned, [place] [facility] [address] Colposcopy Cervix Endocervical Curettage 2023-12-17 00:00:00 Darryl Waggoner US OVARY TORSION 2023-11-20 16:01:25 Doni Marie [facility] CT ABDOMEN PELVIS W CONTRAST 2023-11-20 14:40:23 Doni Marie [facility] COMP. METABOLIC PANEL ([id number]) 2023-11-20 13:27:00 Doni Marie [facility] CBC WITH DIFF 2023-11-20 13:27:00 Doni Marie [facility] URINALYSIS 2023-11-20 13:27:00 Doni Marie [facility] POCT TEST 2023-11-20 13:26:00 Ryan Marie [facility] CONSENT/REFUSAL FOR DIAGNOSIS AND TREATMENT 2023-11-20 12:37:06 Doctor Unassigned, [place] [facility] CONSENT/REFUSAL FOR DIAGNOSIS AND TREATMENT 2023-11-12 06:04:20 Doctor Unassigned, [place] [facility] CONSENT/REFUSAL FOR DIAGNOSIS AND TREATMENT 2023-10-28 02:10:42 Doctor Unassigned, [place] [facility] URINALYSIS 2023-09-09 02:35:00 Danie Ontiveros U [facility] XR KUB 2023-09-09 01:28:00 Danie Ontiveros U [facility] CT LUMBAR SPINE WO CONTRAST 2023-09-09 01:02:05 Danie Ontiveros [facility] CONSENT/REFUSAL FOR DIAGNOSIS AND TREATMENT 2023-09-09 00:05:52 Doctor Unassigned, [place] [facility] POCT TEST 2023-09-07 13:28:00 Juli Srivastava ra [facility] URINALYSIS 2023-09-07 13:27:00 [facility]REFUSAL FOR DIAGNOSIS AND TREATMENT 2023-09-07 12:42:21 Doctor Unassigned, [place] [facility] COMP. METABOLIC PANEL ([id number]) 2023-09-04 02:29:00 Selene Parra [facility] CBC WITH DIFF 2023-09-04 02:29:00 Selene Parra [facility] RAPID INFLUENZA A/B 2023-09-04 02:26:00 Hannahoriana Selene Thor [facility] COVID-19 (ID NOW RAPID TESTING) 2023-09-04 02:26:00 Aida Selene Mcrae [facility] ASSIGNMENT OF BENEFITS 2023-09-04 02:07:25 Docto r Unassigned, [place] [facility] CONSENT/REFUSAL FOR DIAGNOSIS AND TREATMENT 2023-09-04 00:46:16 Doctor Unassigned, [place] [facility] CONSENT/REFUSAL FOR DIAGNOSIS AND TREATMENT 2023-08-04 03:55:32 Doctor Unassigned, [place] [facility] URINALYSIS 2023-07-26 08:52:00 Memo Resendiz [facility] URINALYSIS 2023-07-26 08:20:00 Memo Resendiz [facility] ASSIGNMENT OF BENEFITS 2023-07-26 08:05:43 Docto r Unassigned, [place] [facility] CONSENT/REFUSAL FOR DIAGNOSIS AND TREATMENT 2023-07-26 07:33:52 Doctor Unassigned, [place] [facility] RAPID STREP SCREEN FOR GROUP A 2023-07-25 13:40:00 Danii Arriaga [facility] RAPID INFLUENZA A/B 2023-07-25 13:40:00 Minal Arriaga [facility] COVID-19 (ID NOW RAPID TESTING) 2023-07-25 13:40:00 Danii Arriaga [facility] XR CHEST 2 VW 2023-07-25 13:26:06 Danii Arriaga [facility] ASSIGNMENT OF BENEFITS 2023-07-25 13:17:29 Docto r Unassigned, [place] [facility] CONSENT/REFUSAL FOR DIAGNOSIS AND TREATMENT 2023-07-25 12:29:51 Doctor Unassigned, [place] [facility] XR CHEST 2 VW 2023-07-12 13:13:00 Doni Marie [facility] POCT TEST 2023-07-12 12:56:00 Ryan Marie [facility] CONSENT/REFUSAL FOR DIAGNOSIS AND TREATMENT 2023-07-12 12:27:58 Doctor Unassigned, [place] [facility] [id number] Colposcopy Cervix Uppr/adjcnt Vagina W/cervix Bx 2023-06-26 00:00:00 Darryl Waggoner [id number] Endometrial Bx W/wo Endocervix Bx W/o Dilat Spx 2023-06-26 00:00:00 Darryl Waggoner CONSENT/REFUSAL FOR DIAGNOSIS AND TREATMENT 2023-06-24 10:15:34 Doctor Unassigned, [place] [facility] RAPID INFLUENZA A/B 2023-06-18 05:03:00 Michelle Terry [facility] RAPID RSV 2023-06-18 05:03:00 Michelle Terry [facility] COVID-19 (ID NOW RAPID TESTING) 2023-06-18 05:03:00 Michelle Terry [facility] CONSENT/REFUSAL FOR DIAGNOSIS AND TREATMENT 2023-06-18 04:46:39 Doctor Unassigned, [place] [facility] US OVARY TORSION 2023-06-12 08:14:06 [facility] 2023-06-12 05:07:00 Raven Lieberman [facility] COMP. METABOLIC PANEL ([id number]) 2023-06-12 05:02:00 Raven Lieberman [facility] CBC WITH DIFF 2023-06-12 05:02:00 Raven Lieberman [facility] URINALYSIS 2023-06-12 05:02:00 Raven Lieberman [facility] NOTICE OF PRIVACY PRACTICES 2023-06-12 04:10:01 Doctor Unassigned, [place] [facility] CONSENT/REFUSAL FOR DIAGNOSIS AND TREATMENT 2023-06-12 04:06:29 Doctor Unassigned, [place] [facility] CT ABDOMEN PELVIS W CONTRAST 2023-05-28 07:44:47 Raven Lieberman [facility] POCT TEST 2023-05-28 06:40:00 Raven Lieberman [facility] COMP. METABOLIC PANEL ([id number]) 2023-05-28 06:34:00 Raven Lieberman [facility] CBC WITH DIFF 2023-05-28 06:34:00 [facility] URINALYSIS 2023-05-28 06:34:00 [facility] CONSENT/REFUSAL FOR DIAGNOSIS AND TREATMENT 2023-05-28 05:25:17 Doctor Unassigned, [place] [facility] [address] Removal Impacted Cerumen Using Irrigation/lavage, Unilateral 2023-04-30 00:00:00 Darryl Tyron Waggoner ASSIGNMENT OF BENEFITS 2023-03-07 04:54:51 Docto r Unassigned, [place] [facility] RAPID STREP SCREEN FOR GROUP A 2023-03-07 03:52:00 Hermilo Ricks [facility] CONSENT/REFUSAL FOR DIAGNOSIS AND TREATMENT 2023-03-07 02:58:48 Doctor Unassigned, [place] [facility] BASIC METABOLIC PANEL (NA, K, CL, CO2, GLUCOSE, BUN, CREATININE, CA) 2023-02-02 06:41:00 Selene Parra [facility] CBC WITH DIFF 2023-02-02 06:41:00 Selene Parra [facility] POCT TEST 2023-02-02 06:17:00 Selene Parra [facility] NOTICE OF PRIVACY PRACTICES 2023-02-02 06:00:34 Doctor Unassigned, [place] [facility] CONSENT/REFUSAL FOR DIAGNOSIS AND TREATMENT 2023-02-02 05:59:54 Doctor Unassigned, [place] [facility] CT ABDOMEN PELVIS W CONTRAST 2022-10-24 20:00:18 Suraj Scott [facility] US OVARY TORSION 2022-10-24 19:43:53 Suraj Scott [facility] LIPASE 2022-10-24 18:58:00 Suraj Scott [facility] COMP. METABOLIC PANEL ([id number]) 2022-10-24 18:58:00 Suraj Scott [facility] CBC WITH DIFF 2022-10-24 18:58:00 [facility] 2022-10-24 18:58:00 Suraj Scott Uni [facility] POCT TEST 2022-10-24 18:58:00 Odessa Scott [facility] CBC WITH DIFF 2022-07-21 13:07:00 Singer [facility] POCT TEST 2022-07-21 12:55:00 Jeanine Ricks [facility] URINALYSIS 2022-07-21 12:52:00 Singer [facility] CONSENT/REFUSAL FOR DIAGNOSIS AND TREATMENT 2022-07-21 12:44:40 Doctor Unassigned, [place] [facility] CT ABDOMEN PELVIS W CONTRAST 2022-05-19 21:32:53 Cat Rutledge [facility] LIPASE 2022-05-19 20:49:00 Cat Rutledge [facility] COMP. METABOLIC PANEL ([id number]) 2022-05-19 20:49:00 Cat Rutledge [facility] CBC WITH DIFF 2022-05-19 20:49:00 Cat Rutledge [facility] URINALYSIS 2022-05-19 20:49:00 Cat [facility] POCT TEST 2022-05-19 20:49:00 Paxton Rutledge [facility] URINE DRUG (IMMUNOASSAY) - COMPREHENSIVE DRUG SCREEN W/O REFLEX 2022-05-19 20:49:00 Cat Rutledge [facility] CONSENT/REFUSAL FOR DIAGNOSIS AND TREATMENT 2022-05-19 20:16:10 Doctor Unassigned, [place] [facility] POCT TEST 2022-05-13 07:37:00 Selene Parra [facility] LIPASE 2022-05-13 07:32:00 Selene Parra [facility] COMP. METABOLIC PANEL ([id number]) 2022-05-13 07:32:00 Selene Parra [facility] CBC WITH DIFF 2022-05-13 07:32:00 Selene Parra [facility] URINALYSIS 2022-05-13 07:32:00 Selene Parra [facility] CONSENT/REFUSAL FOR DIAGNOSIS AND TREATMENT 2022-05-13 06:55:55 Doctor Unassigned, [place] [facility] XR ANKLE <3 VW RIGHT 2022-04-01 22:28:50 Deny Rg [facility] URINALYSIS 2022-04-01 22:21:00 Christy Rg [facility] POCT TEST 2022-04-01 22:19:00 Christy Rg [facility] CONSENT/REFUSAL FOR DIAGNOSIS AND TREATMENT 2022-04-01 21:40:47 Doctor Unassigned, [place] [facility] POCT TEST 2021-10-25 19:54:00 Lisa Tran [facility] URINALYSIS 2021-10-25 19:53:00 Lisa Tran [facility] CONSENT/REFUSAL FOR DIAGNOSIS AND TREATMENT 2021-10-25 19:34:46 Doctor Unassigned, [place] [facility] NOTICE OF PRIVACY PRACTICES 2021-10-25 19:34:06 Doctor Unassigned, [place] [facility] Plan of Care Planned Activity Planned Date Details Comments Source Goal Plan of Care Note [code = 94146-6] Goal Plan of Care Note [code = 21558-8] Goal Plan of Care Note [code = 25136-9] Goal Plan of Care Note [code = 88442-0] Goal Plan of Care Note [code = 31465-9] Goal Plan of Care Note [code = 50844-3] Goal Plan of Care Note [code = 88848-4] Goal Plan of Care Note [code = 04253-5] Goal Plan of Care Note [code = 52464-1] Goal Plan of Care Note [code = 48286-1] Goal Plan of Care Note [code = 56373-4] Goal Plan of Care Note [code = 18990-5] Goal Plan of Care Note [code = 41482-6] Goal Plan of Care Note [code = 64161-0] Goal Plan of Care Note [code = 62168-0] Goal Plan of Care Note [code = 03080-0] Goal Plan of Care Note [code = 87803-8] Goal Plan of Care Note [code = 78001-7] Goal Plan of Care Note [code = 49633-5] Goal Plan of Care Note [code = 29128-4] Goal Plan of Care Note [code = 42386-9] Goal Plan of Care Note [code = 21489-4] Goal Plan of Care Note [code = 89297-0] Goal Plan of Care Note [code = 85101-4] Goal Plan of Care Note [code = 81558-8] Encounters Start Date/Time End Date/Time Encounter Type Admission Type Attending [facility] Facility Care Department Encounter ID Source 2024-07-25 07:55:00 2024-07-25 10:46:00 Emergency DONI DEL CID DONNELL [facility] ERT [id number] [facility] 2024-07-25 07:55:00 2024-07-25 10:46:00 Emergency Doni Marie [facility] 1..840.114 350.1.13.10 4.2.7.2.[id number] [facility] 2024-07-09 15:24:23 2024-07-09 15:24:[address] [facility] [id number] Darryl Waggoner 2024-07-09 00:00:00 2024-07-09 00:00:[address] [facility] [id number] Darryl Waggoner 2024-07-04 02:23:00 2024-07-04 06:07:00 Emergency X SELENE PARRA WAKILI [facility] ERT [id number] [facility] 2024-07-04 02:23:00 2024-07-04 06:07:00 Emergency Selene Parra [facility] ..840.114 350.1.13.10 4.2.7.2.[id number] [facility] 2024-03-18 13:39:14 2024-03-18 13:39:[address] [facility] [id number] Darryl Waggoner 2024-03-18 00:00:00 2024-03-18 00:00:[address] [facility] [id number] Darryl Waggoner 2024-03-12 02:06:00 2024-03-12 06:07:00 Emergency X SELENE PARRA [facility] ERT [id number] [facility] 2024-03-12 02:06:00 2024-03-12 06:07:00 Emergency Selene Parra [facility] 1..840.114 350.1.13.10 4.2.7.2.[id number] [facility] 2024-03-06 11:34:36 2024-03-06 11:34:[address] [facility] [id number] Darryl Waggoner 2024-03-06 00:00:00 2024-03-06 00:00:[address] [facility] [id number] Darryl Waggoner 2024-02-03 03:57:00 2024-02-03 07:11:00 Emergency Selene Parra [facility] 1.2.840.114 350.1.13.10 4.2.7.2.[id number] [facility] 2024-01-01 22:28:00 2024-01-02 00:44:00 Emergency X NIECYMICHAELADONI [facility] ERT [id number] [facility] 2024-01-01 22:28:00 2024-01-02 00:44:00 Emergency Doni Marie [facility] 1.2.840.114 350.1.13.10 4.2.7.2.[id number] [facility] 2023-12-31 15:24:49 2023-12-31 15:24:49 Outpatient [facility] [id number] Darryl Waggoner 2023-12-26 03:53:00 2023-12-26 05:24:00 Emergency X SELENE PARRA [facility] ERT [id number] [facility] 2023-12-26 03:53:00 2023-12-26 05:24:00 Emergency Selene Parra [facility] 1.2.840.114 350.1.13.10 4.2.7.2.[id number] [facility] 2023-12-17 08:09:17 2023-12-17 08:09:17 Outpatient [facility] [id number] Darryl Waggoner 2023-11-20 06:45:00 2023-11-20 10:52:00 Emergency X DONI MARIE [facility] ERT [id number] [facility] 2023-11-20 06:45:00 2023-11-20 10:52:00 Emergency Doni Marie [facility] 1.2.840.114 350.1.13.10 4.2.7.2.[id number] [facility] 2023-11-14 13:08:33 2023-11-14 13:08:33 Outpatient [facility] [id number] Darryl Waggoner 2023-11-12 00:13:00 2023-11-12 01:10:00 Emergency X CHAYO SRIVASTAVA [facility] ERT [id number] [facility] 2023-11-12 00:13:00 2023-11-12 01:10:00 Emergency Chayo Srivastava [facility] 1.2.840.114 350.1.13.10 4.2.7.2.[id number] [facility] 2023-10-27 20:33:00 2023-10-27 20:58:00 Emergency X Kavita OJEDA [facility] E[facility] [id number] [facility] 2023-10-27 20:33:00 2023-10-27 20:58:00 Emergency Kavita Ojeda [facility] 1.2.840.114 350.1.13.10 4.2.7.2.[id number] [facility] 2023-09-17 09:14:32 2023-09-17 09:14:[address] [facility] [id number] Darryl Waggoner 2023-09-08 18:32:00 2023-09-08 21:46:00 Emergency X CHRISTY RG [facility] ERT [id number] [facility] 2023-09-08 18:32:00 2023-09-08 21:46:00 Emergency Danie Ontiveros Pamala G [facility] 1.2.840.114 350.1.13.10 4.2.7.2.[id number] [facility] 2023-09-07 06:47:00 2023-09-07 08:22:00 Emergency X CHAYO SRIVASTAVA [facility] E[facility] [id number] [facility] 2023-09-07 06:47:00 2023-09-07 08:22:00 Emergency Chayo Srivastava [facility] 1.2.840.114 350.1.13.10 4.2.7.2.[id number] [facility] 2023-09-03 18:57:00 2023-09-03 22:03:00 Emergency X SELENE PARRA [facility] E[facility] [id number] [facility] 2023-09-03 18:57:00 2023-09-03 22:03:00 Emergency Selene Parra [facility] 1.2.840.114 350.1.13.10 4.2.7.2.[id number] [facility] 2023-08-28 16:44:07 2023-08-28 16:44:07 Outpatient [facility] [id number] Darryl Waggoner 2023-08-03 23:07:00 2023-08-04 01:08:00 Emergency X STEFAN, K [facility] ERT [id number] [facility] 2023-08-03 23:07:00 2023-08-04 01:08:00 Emergency Kavita Ojeda Soledad [facility] 1..840.114 350.1.13.10 4.2.7.2.[id number] [facility] 2023-07-26 02:41:00 2023-07-26 04:25:00 Emergency X MEMO RESENDIZ [facility] ERT [id number] [facility] 2023-07-26 02:41:00 2023-07-26 04:25:00 Emergency Vasut, Memo J [facility] 1..840.114 350.1.13.10 4.2.7.2.[id number] [facility] 2023-07-25 07:36:00 2023-07-25 10:13:00 Emergency X DANII ARRIAGA [facility] E[facility] [id number] [facility] 2023-07-25 07:36:00 2023-07-25 10:13:00 Emergency Schoenstein , Rose Danii Arriaga [facility] ..840.114 350.1.13.10 4.2.7.2.[id number] [facility] 2023-07-24 08:14:55 2023-07-24 08:14:[address] [facility] [id number] Darryl Waggoner 2023-07-12 07:35:00 2023-07-12 09:00:00 Emergency X DONI MARIE [facility] ERT [id number] [facility] 2023-07-12 07:35:00 2023-07-12 09:00:00 Emergency Doni Marie [facility] 1.2.840.114 350.1.13.10 4.2.7.2.[id number] [facility] 2023-07-02 13:54:28 2023-07-02 13:54:28 Outpatient [facility] [id number] Darryl Waggoner 2023-06-26 13:20:40 2023-06-26 13:20:40 Outpatient [facility] [id number] Darryl Waggoner 2023-06-24 05:33:00 2023-06-24 06:50:00 Emergency SELENE HOLLINGSWORTH [facility] ERT [id number] [facility] 2023-06-24 05:33:00 2023-06-24 06:50:00 Emergency Selene Parra [facility] 1.2.840.114 350.1.13.10 4.2.7.2.[id number] [facility] 2023-06-20 16:08:31 2023-06-20 16:08:31 Outpatient [facility] [id number] Darryl Waggoner 2023-06-17 23:54:00 2023-06-18 01:35:00 Emergency X MICHELLE TERRY [facility] ERT [id number] [facility] 2023-06-17 23:54:00 2023-06-18 01:35:00 Emergency Michelle Terry Lee [facility] 1.2.840.114 350.1.13.10 4.2.7.2.[id number] [facility] 2023-06-16 10:56:55 2023-06-16 10:56:55 Outpatient [facility] [id number] Darryl Waggoner 2023-06-14 13:35:05 2023-06-14 13:35:05 Outpatient [facility] [id number] Darryl Waggoner 2023-06-12 11:11:07 2023-06-12 11:11:07 Outpatient [facility] [id number] Darryl Waggoner 2023-06-11 23:25:00 2023-06-12 04:49:00 Emergency X RAVEN LIEBERMAN [facility] ERT [id number] [facility] 2023-06-11 23:25:00 2023-06-12 04:49:00 Emergency Raven Lieberman [facility] 1.2.840.114 350.1.13.10 4.2.7.2.[id number] [facility] 2023-06-05 11:34:51 2023-06-05 11:34:51 Outpatient [facility] [id number] Darryl Waggoner 2023-05-28 08:05:43 2023-05-28 08:05:43 Outpatient [facility] [id number] Darryl Waggoner 2023-05-28 00:40:00 2023-05-28 04:06:00 Emergency X RAVEN LIEBERMAN [facility] ERT [id number] [facility] 2023-05-28 00:40:00 2023-05-28 04:06:00 Emergency Raven Lieberman [facility] 1.2.840.114 350.1.13.10 4.2.7.2.[id number] [facility] 2023-05-28 00:00:00 2023-05-28 00:00:00 Orders Only Doctor Unassigned, [place] [facility] 1.2.840.114 350.1.13.10 4.2.7.2.[id number] [facility] 2023-04-30 13:49:49 2023-04-30 13:49:49 Outpatient [facility] [id number] Darryl Waggoner 2023-04-23 08:52:34 2023-04-23 08:52:[address] [facility] [id number] Darryl Waggoner 2023-03-06 22:52:00 2023-03-07 00:12:00 Emergency X HERMILO RICKS [facility] ERT [id number] [facility] 2023-03-06 22:52:00 2023-03-07 00:12:00 Emergency Hermilo Ricks [facility] 1.2.840.114 350.1.13.10 4.2.7.2.[id number] [facility] 2023-02-02 01:06:00 2023-02-02 02:49:00 Emergency X ANTONIETTASTEVE JAMESJOSE A [facility] ERT [id number] [facility] 2023-02-02 01:06:00 2023-02-02 02:49:00 Emergency Selene Parra [facility] 1.2.840.114 350.1.13.10 4.2.7.2.[id number] [facility] 2023-02-02 00:00:00 2023-02-02 00:00:00 Orders Only Doctor Unassigned, [place] [facility] 1.2.840.114 350.1.13.10 4.2.7.2.[id number] [facility] 2022-10-24 12:04:00 2022-10-24 15:45:00 Emergency X SURAJ SCOTT [facility] ERT [id number] [facility] 2022-10-24 12:04:00 2022-10-24 15:45:00 Emergency Suraj Scott [facility] 1.2.840.114 350.1.13.10 4.2.7.2.[id number] [facility] 2022-09-25 10:04:19 2022-09-25 10:04:[address] [facility] [id number] Darryl Waggoner 2022-09-25 00:00:00 2022-09-25 00:00:00 Outpatient Visit [id number] 2022-07-21 07:49:00 2022-07-21 08:56:00 Emergency X HERMILO RICKS [facility] ERT [id number] [facility] 2022-07-21 07:49:00 2022-07-21 08:56:00 Emergency Hermilo Ricks [facility] 1..840.114 350.1.13.10 4.2.7.2.[id number] [facility] 2022-05-19 15:38:00 2022-05-19 17:24:00 Emergency X CAT RUTLEDGE [facility] ERT [id number] [facility] 2022-05-19 15:38:00 2022-05-19 17:24:00 Emergency Cat Rutledge [facility] 1..840.114 350.1.13.10 4.2.7.2.[id number] [facility] 2022-05-19 00:00:00 2022-05-19 00:00:00 Outpatient Visit [id number] 2022-05-13 02:08:00 2022-05-13 04:24:00 Emergency Selene Parra [facility] 1.2.840.114 350.1.13.10 4.2.7.2.[id number] [facility] 2022-05-13 02:08:00 2022-05-13 04:24:00 Emergency X SELENE PARRA [facility] ERT [id number] [facility] 2022-04-01 16:48:00 2022-04-01 18:39:00 Emergency X CHRISTY RG [facility] ERT [id number] [facility] 2022-04-01 16:48:00 2022-04-01 18:39:00 Emergency Christy Rg [facility] 1.2.840.114 350.1.13.10 4.2.7.2.[id number] [facility] 2022-04-01 00:00:00 2022-04-01 00:00:00 Orders Only Doctor Unassigned, [place] [facility] 1.2.840.114 350.1.13.10 4.2.7.2.[id number] [facility] 2021-10-25 13:44:00 2021-10-25 15:25:00 Emergency X LISA TRAN [facility] ERT [id number] [facility] 2021-10-25 13:44:00 2021-10-25 15:25:00 Emergency Lisa Tran [facility] 1.2.840.114 350.1.13.10 4.2.7.2.[id number] [facility] 2021-10-25 00:00:00 2021-10-25 00:00:00 Orders Only Doctor Unassigned, [place] [facility] 1.2.840.114 350.1.13.10 4.2.7.2.[id number] [facility] 2021-05-03 17:49:00 2021-05-04 02:46:00 Emergency [facility] [id number] [facility] 2021-04-16 21:16:42 2021-04-22 13:04:00 Inpatient CL [facility] [id number] [facility] 2021-04-08 17:04:00 2021-04-08 17:04:00 Emergency X ROCHELLE GOLD [facility] ERT [id number] [facility] 2021-04-08 02:42:00 2021-04-08 02:42:00 Emergency X LISA TRAN [facility] ERT [id number] [facility] 2021-03-24 18:36:00 2021-03-24 18:36:00 Emergency X [facility] ERT [id number] [facility] Results Test Description Test Time Test Comments Results Resul t Comments Source XR ABDOMEN ACUTE SERIES 2024-07-15 1 14:50:35 EXAM: XR ABDOMEN ACUTE SERIES COMPARISON: Abdominal radiograph dated 09/08/2023. HISTORY: vomiting FINDINGS: Lungs: The lungs are adequately expanded. No focal opacities or pleuralabnormality. Heart/Mediastinum: The cardiac silhouette appears normal accounting fortechnique and degree of inspiration. Bones and soft tissues: No osseous abnormality is visualized. No pathologically dilated bowel loops or obstructive process is detected. No radiopaque stones identified. No acute bony abnormality is present[facility] [id number] 09:44:53Examination: Computed tomography of the abdomen and pelvis with contrast Ordering Physician: MANFRED PARRA Date: 07/04/2024 3:15 AM History: Abdominal pain, acute, nonlocalized Bilateral lower abdominal pain Comparison: None available Technique: Computed tomography of the abdomen and pelvis was pe rformedafter the administration of nonionic intravenous contrast. ?Exams wereperformed using dose reduction techniques according to ALARA (as low asreasonably achievable) principles. Findings: Linearbasilar atelectasis on the left. 5 mm left lower lobe pulmonarynodule. Indeterminater hypodense lesion in the right hepatic lobe, not clearly asimple cyst measuring 11.8 mm. Gallbladder, spleen, pancreas, adrenalglands and kidneys demonstrate no acute finding. No dilated or thickened bowel loops. Normal appendix. No evidence of smallbowel obstruction. There is fluid within nondilated small bowel.No no freefluid or free air. The portal and splenic veins are patent. No enlargedadenopathy. Uterus and right adnexa unremarkable. 3.1 cm left ovarian cyst.Urinary bladder is grossly unremarkable. Bone windows show no suspicious lytic or blastic bony lesion.[facility] [id number] 07:36:00 * Test Item Value Reference Range Interpretation Comme nts POCT PREG (test code = 1605) Negative On board controls acceptable with C Line (test code = 3574) Yes POCT PREG LOT # (test code = 3575) [id number] POCT PREG TEST DATE ( test code = 3576) 07/24/2025 Lab Interpretation (test cod e = 73080-1) Normal [facility] ABDOMEN PELVIS W [id number] 10:12:02Examination: Computed tomography of the abdomen and pelvis with contrast Ordering Physician: MANFRED PARRA Date: 03/12/2024 4:00 AM History: Nausea/vomiting RLQ abdominal pain (Age >= 14y) Comparison: 02/03/2024 Technique: Computed tomography of the abdomen and pelvis was performedafter the admi nistration of nonionic intravenous contrast. ?Exams wereperformed using [...] show no suspicious lytic or blastic bony lesion.[facility]. Metabolic Panel (09617)2024-03-12 09:27:38* Test Item Value Reference Range Interpretation Comme nts NA (test code = 4113741404) 137 mmol/L 135-145 K (test code = 0900438049) 3.8 mmol/L 3.5-5.0 CL (test code = 8089795999) 107 mmol/L 98-108 CO2 TOTAL (test code = 2023482496) 20 mmol/L 23-31 L AGAP (test code = 6430738745) 10 2-16 BUN (test code = 1278272894) 6 mg/dL 7-23 L GLUCOSE (test code = 5360503669) 94 mg/dL 70-110 CREATININE (test code = 2160-0) 0.83 mg/dL 0.50-1.04 TOTAL BILI (test code = 4215091479) 0.4 mg/dL 0.1-1.1 CALCIUM (test code = 0271788894) 9.2 mg/dL 8.6-10.6 T PROTEIN (test code = 0871126687) 7.6 g/dL 6.3-8.2 ALBUMIN (test code = 8565310670) 4.2 g/dL 3.5-5.0 ALK PHOS (test code = 9185374722) 73 U/L 34-122 ALTv (test code = 1742-6) 18 U/L 5-35 AST(SGOT) (test code = 6315818076) 24 U/L 13-40 eGFR (test code = 57196-4) 96.2 mL/min/1.73m2 CKD-EPI eGFR (2020). Assuming creatinine has been stable day-to-day for at least three months, the eGFR indicates Category G1 (>= 90 mL/min/1.73 m2) Lab Interpretation (test code = 14523-7) [facility]normal [facility]2024-[facility] 09:26:57* Test Item Value Reference Range Interpretation Comme nts LIPASE (test code = 7633547639) 108 U/L 0-220 Lab Interpretation (test cod e = 86013-2) Normal [facility] AllenCb with [id number] 09:13:56* Test Item Value Reference Range Interpretation [...] g/dL 31.6-35.1 L RDW-SD (test code = 91327-5) 42.4 fL 39.0-49.9 RDW-CV (test code = 788-0) 15.7 % 12.0-15.5 H PLT (test code = 777-3) 346 166-358 MPV (test code = 68448-7) 9.8 fL 9.5-12.9 NRBC/100 WBC (test code = 9680803623) 0.0 0.0-10.0 NRBC x10^3 (test code = 1535018978) See_Comment [Automated messa ge] The system which generated this result transmitted reference range: 10*3/?L. The reference range was not used to interpret this result as normal/abnormal. GRAN MAT (NEUT) % (test code = 770-8) 43.3 % IMM GRAN % (test code = 4974114333) 0.30 % LYMPH % (test code = 736-9) 42.6 % MONO % (test code = 5905-5) 7.5 % EOS % (test code = 713-8) 5.5 % BASO % (test code = 706-2) 0.8 % GRAN MAT x10^3(ANC) (test code = 2596563269) 3.21 10*3/uL 1.88-7.09 IMM GRAN x10^3 (test code = 0449055431) 0.00-0.06 LYMPH x10^3 (test code = 731-0) 3.16 10*3/uL 1.32-3.29 MONO x10^3 (test code = 742-7) 0.56 10*3/uL 0.33-0.92 EOS x10^3 (test code = 711-2) 0.41 10*3/uL 0.03-0.39 H BASO x10^3 (test code = 704-7) 0.06 10*3/uL 0.01-0.07 Lab Interpretation (test code = 64611-0) [facility]normal [facility] [id number] 11:45:15* Test Item Value Reference Range Interpretation Comme [facility] EBV Mononucleosis Screen (te st code = 9806254051) Negative Negative Lab Interpretation (test cod e = 82673-8) Normal [facility] ABDOMEN PELVIS W [id number] 10:26:21ORDERING PHYSICIAN: SELENE PARRA CLINICAL HISTORY: Abdominal [...] the pelvis. Appendixis normal. The bones are unremarkable.[facility] AllenPOMA [id number] 09:09:00* Test Item Value Reference Range Interpretation Comme [facility] POCT PREG (test code = 1605) Negative On board controls acceptable with C Line (test code = 3574) Yes POCT PREG LOT # (test code = 3575) [id number] POCT PREG TEST DATE ( test code = 3576) 11/21/2024 Lab Interpretation (test cod e = 67272-2) Normal [facility] PATHOLOG[facility] [id number] 09:50:51* Test Item Value Reference Range Interpretation Comme [facility] DIAGNOSIS: (test code = 8200) (NOTE) A) Conization (L EEP) - EctocervixHigh grade squamous intraepithelial lesion (CIN2), extendingfocally to endocervical and ectocervical/stromal margins. B) Conization (LEEP) - EndocervixFocal high grade squamous intraepithelial lesion (CIN2).Surgical margins negative for dysplasia. COMMENTS: (test code = 8205) (NOTE) The previously r eported abnormal Pap (accession # [id number]) isreviewed. The biopsy material more clearly displays [...] TanNUMBER OF TISSUE PIECES: 2SUBMITTED IN CASSETTE(S): [id number]: FormalinCOMMENTS:Consists of a 1.9x1.1x0.5 cm irregularly shaped [...] TanNUMBER OF TISSUE PIECES: 1SUBMITTED IN CASSETTE(S): [id number]: FormalinCOMMENTS:[place] shaped rubbery tissue fragment partially surfaced bytan-white ectocervix. Os is inked blue by clinician. Endocervicalmargin inked blue. All remaining margins inked orange. Radiallysectioned x 9 and entirely submitted. Specimen fell apart uponsectioning. PATHOLOGIST: (test code = 8250) (NOTE) Heide Shipley MD, Board-certified Anatomic and ClinicalPathology, Hematopathology Specimens processed and interpreted at [facility], [address] [place] [address], , CLIA: [id number] CPT: (test code = 8400) (NOTE) 72373k2 UNLESS O THERWISE INDICATED, ALL TESTING PERFORMED AT [facility] [address] [place] [address] FARM TRUCK DRIVER: ANIBAL PAREDES M.D. CLIA NUMBER [id number] [facility] [place]. [id number] SURGICAL PATHOLOGY [id number] 00:00:00* Test Item Value Reference Range Interpretation [...] = PDFReport) PDF Darryl Ackerman AustinSUR[facility]ICAL PATHOLOGY [id number] 00:00:00* Test Item Value Reference Range Interpretation [...] code = PDFReport) PDF Darryl WaggonerSURGICAL PATHOLOGY [id number] 00:00:00* Test Item Value Reference Range Interpretation Comme nts DIAGNOSIS: (test code = 8200) (NOTE) COMMENTS: (test code = 8205) (NOTE) MICROSCOPIC DESCRIPTION: (te st code = 8210) (NOTE) CLINICAL DATA: (test code = 8401) (NOTE) GROSS DESCRIPTION: (test code = 8220) (NOTE) PATHOLOGIST: (test code = 8250) (NOTE) CPT: (test code = 8400) (NOTE) PDFE (test code = PDFReport) PDF Darryl Chang OVARY [id number] 16:27:21EXAM: US OVARY TORSION HISTORY: 32 years [...] None [place]-sac: Trace volume free fluid is present.[facility] ABDOMEN PELVIS W [id number] 15:15:04EXAM: CT ABDOMEN PELVIS W CONTRAST HISTORY: [...] No suspicious lytic or sclerotic bony lesions arepresent.[facility]. METABOLIC PANEL (12770)2023-11-20 14:09:45* Test Item Value Reference Range Interpretation Comme nts NA (test code = 8928902687) 135 mmol/L 135-145 K (test code = 7144674711) 4.1 mmol/L 3.5-5.0 CL (test code = 2517118691) 112 mmol/L 98-108 H CO2 TOTAL (test code = 1383209066) 17 mmol/L 23-31 L AGAP (test code = 2433935324) 6 2-16 BUN (test code = 7163795751) 10 mg/dL 7-23 GLUCOSE (test code = 6691953757) 95 mg/dL 70-110 CREATININE (test code = 5155944793) 0.72 mg/dL 0.50-1.04 TOTAL BILI (test code = 4118444750) 0.2 mg/dL 0.1-1.1 CALCIUM (test code = 9383490516) 9.0 mg/dL 8.6-10.6 T PROTEIN (test code = 9016847009) 7.6 g/dL 6.3-8.2 ALBUMIN (test code = 1706634562) 4.3 g/dL 3.5-5.0 ALK PHOS (test code = 2655792990) 81 U/L 34-122 ALTv (test code = 1742-6) 23 U/L 5-35 AST(SGOT) (test code = 0203475980) 26 U/L 13-40 eGFR (test code = 66956-8) 114.8 mL/min/1.73m2 CKD-EPI eGFR (2020). Assuming creatinine has been stable day-to-day for at least three months, the eGFR indicates Category G1 (>= 90 mL/min/1.73 m2) Lab Interpretation (test code = 42684-7) Abnormal [facility] AllenCB WITH [id number] 13:53:43* Test Item Value Reference Range Interpretation [...] g/dL 31.6-35.1 L RDW-SD (test code = 72783-9) 42.6 fL 39.0-49.9 RDW-CV (test code = 788-0) 15.5 % 12.0-15.5 PLT (test code = 777-3) 364 166-358 H MPV (test code = 80515-4) 10.0 fL 9.5-12.9 NRBC/100 WBC (test code = 8688782712) 0.0 0.0-10.0 NRBC x10^3 (test code = 0012178024) See_Comment [Automated messa ge] The system which generated this result transmitted reference range: 10*3/?L. The reference range was not used to interpret this result as normal/abnormal. GRAN MAT (NEUT) % (test code = 770-8) 59.8 % IMM GRAN % (test code = 0861399811) 0.30 % LYMPH % (test code = 736-9) 27.8 % MONO % (test code = 5905-5) 9.2 % EOS % (test code = 713-8) 2.1 % BASO % (test code = 706-2) 0.8 % GRAN MAT x10^3(ANC) (test code = 4217372412) 3.70 10*3/uL 1.88-7.09 IMM GRAN x10^3 (test code = 6285764931) 0.00-0.06 LYMPH x10^3 (test code = 731-0) 1.72 10*3/uL 1.32-3.29 MONO x10^3 (test code = 742-7) 0.57 10*3/uL 0.33-0.92 EOS x10^3 (test code = 711-2) 0.13 10*3/uL 0.03-0.39 BASO x10^3 (test code = 704-7) 0.05 10*3/uL 0.01-0.07 Lab Interpretation (test code = 10372-9) Abnormal [facility] [id number] 13:26:00* Test Item Value Reference Range Interpretation Comme nts POCT PREG (test code = 1605) Negative On board controls acceptable with C Line (test code = 3574) Yes POCT PREG LOT # (test code = 3575) [id number] POCT PREG TEST DATE ( test code = 3576) 01/20/2025 Lab Interpretation (test cod e = 86680-2) Normal [facility] [id number] 13:28:00* Test Item Value Reference Range Interpretation Comme nts POCT PREG (test code = 1605) Negative On board controls acceptable with C Line (test code = 3574) Yes POCT PREG LOT # (test code = 7163) [id number] POCT PREG TEST DATE ( test code = 3576) 12/23/2024 Lab Interpretation (test cod e = 70927-4) Normal [facility]/NG, NAAT, [id number] 18:43:32* Test Item Value Reference Range Interpretation Comme nts CHLAMYDIA, NAAT, URINE (test code = 36368) NEGATIVE NEGATIVE Testing is perfo rmed with Lucie HARRY 6800/8800 systems usingreal-time polymerase chain reaction (PCR) method. A negative result does not exclude low level infection, specimensampling error, or collection error. GONORRHEA, NAAT, URINE (test code = 71094) NEGATIVE NEGATIVE Testing is perfo rmed with Lucie HARRY 6800/8800 systems usingreal-time polymerase chain reaction (PCR) method. A negative result does not exclude low level infection, specimensampling error, or collection error. UNLESS OTHERWISE INDICATED, ALL TESTING PERFORMED AT [facility] [address] [place] [address] FARM TRUCK DRIVER: ANIBAL PAREDES M.D. CLIA NUMBER [id number] [facility] [place]. [id number] TRICHOMONAS, NAAT, [id number] 16:46:16* Test Item Value Reference Range Interpretation Comme nts TRICHOMONAS, NAAT, URINE (test code = 46546) NEGATIVE NEGATIVE Testing is perfo rmed with Lucie HARRY 6800/8800 method usingreal-time polymerase chain reaction (PCR) method. A negative result does not exclude low level infection, specimensampling error, or collection error. TRICHOMONAS, URINE, [id number] 00:00:00* Test Item Value Reference Range Interpretation Comme nts TRICHOMONAS, NAAT, URINE ( st code = 48706) NEGATIVE Darryl F AustinCT/NG, TMA, [id number] 00:00:00* Test Item Value Reference Range Interpretation Comme nts CHLAMYDIA, NAAT, URINE (test code = 46265) NEGATIVE GONORRHEA, NAAT, URINE (test code = 57598) NEGATIVE Darryl F AustinTRICHOMONAS, URINE, [id number] 00:00:00* Test Item Value Reference Range Interpretation Comme nts TRICHOMONAS, NAAT, URINE (te st code = 49825) NEGATIVE Darryl Ackerman AustinCT/NG, TMA, [id number] 00:00:00* Test Item Value Reference Range Interpretation Comme nts CHLAMYDIA, NAAT, URINE (test code = 14945) NEGATIVE GONORRHEA, NAAT, URINE (test code = 54898) NEGATIVE Darryl Ackerman AustinTRICHOMONAS, URINE, [id number] 00:00:00* Test Item Value Reference Range Interpretation Comme nts TRICHOMONAS, NAAT, URINE (te st code = 72578) NEGATIVE Darryl Ackerman AustinCT/NG, TMA, [id number] 00:00:00* Test Item Value Reference Range Interpretation Comme nts CHLAMYDIA, NAAT, URINE (test code = 12685) NEGATIVE GONORRHEA, NAAT, URINE (test code = 31010) NEGATIVE Darryl Ackerman AustinPOCT [id number] 12:56:00* Test Item Value Reference Range Interpretation Comme nts POCT PREG (test code = 1605) Negative On board controls acceptable with C Line (test code = 3574) Yes POCT PREG LOT # (test code = 3575) HCG [id number] POCT PREG TEST DATE (test code = 3576) 12/12/2024 Lab Interpretation (test cod e = 15297-2) Normal [facility] [id number] 10:24:44* Test Item Value Reference Range Interpretation [...] TanNUMBER OF TISSUE PIECES: 1SUBMITTED IN CASSETTE(S): [id number]: FormalinCOMMENTS:Entirely submitted intact. F) SPECIMEN LABELED: Cervix 8:00SIZE/WEIGHT: 0.2x0.1x0.1 cm SPECIMEN COLOR: TanNUMBER OF TISSUE PIECES: 1SUBMITTED IN CASSETTE(S): [id number]: FormalinCOMMENTS:Entirely submitted intact. A) SPECIMEN LABELED: EndometriumSIZE/WEIGHT: 1.4x1.3x0.2 cm AggregateSPECIMEN COLOR: TanNUMBER OF TISSUE PIECES: multipleSUBMITTED IN CASSETTE(S): a8KMOFBE: FormalinCOMMENTS:Filtered and entirely submitted. B) SPECIMEN LABELED: EndocervixSIZE/WEIGHT: 1.7x1.5x0.3 cm AggregateSPECIMEN COLOR: TanNUMBER OF TISSUE PIECES: multipleSUBMITTED IN CASSETTE(S): x9ASZYTP: FormalinCOMMENTS:Filtered and entirely submitted. C) SPECIMEN LABELED: Cervix 1:00SIZE/WEIGHT: 0.4x0.3x0.1 cm SPECIMEN COLOR: TanNUMBER OF TISSUE PIECES: 1SUBMITTED IN CASSETTE(S): [id number]: FormalinCOMMENTS:Entirely submitted intact. D) SPECIMEN LABELED: Cervix 3:00SIZE/WEIGHT: 0.2x0.2x0.1 cm SPECIMEN COLOR: TanNUMBER OF TISSUE PIECES: 1SUBMITTED IN CASSETTE(S): [id number]: FormalinCOMMENTS:Entirely submitted intact. PATHOLOGIST: (test code = 8250) (NOTE) Gita Morocho M.D., P h.D., Board Certified in Anatomic and ClinicalPathology, Cytopathology Specimens processed and interpreted at [facility], [address] [place] [address], , CLIA: [id number] CPT: (test code = 8400) (NOTE) 83451z2 UNLESS O THERWISE INDICATED, ALL TESTING PERFORMED AT [facility] [address] [place] [address] FARM TRUCK DRIVER: ANIBAL PAREDES M.D. CLIA NUMBER [id number] [facility] [place]. [id number] SURGICAL PATHOLOGY [id number] 00:00:00* Test Item Value Reference Range Interpretation Comme nts DIAGNOSIS: (test code = 8200) (NOTE) MICROSCOPIC DESCRIPTION: (te st code = 8210) (NOTE) CLINICAL DATA: (test code = 8401) (NOTE) GROSS DESCRIPTION: (test code = 8220) (NOTE) PATHOLOGIST: (test code = 8250) (NOTE) CPT: (test code = 8400) (NOTE) PDFE (test code = PDFReport) PDF Darryl Ackerman AustinS[facility]GICAL PATHOLOGY [id number] 00:00:00* Test Item Value Reference Range Interpretation Comme nts DIAGNOSIS: (test code = 8200) (NOTE) MICROSCOPIC DESCRIPTION: (te st code = 8210) (NOTE) CLINICAL DATA: (test code = 8401) (NOTE) GROSS DESCRIPTION: (test code = 8220) (NOTE) PATHOLOGIST: (test code = 8250) (NOTE) CPT: (test code = 8400) (NOTE) PDFE (test code = PDFReport) PDF Darryl Ackerman AustinS[facility]GICAL PATHOLOGY [id number] 00:00:00* Test Item Value Reference Range Interpretation Comme nts DIAGNOSIS: (test code = 8200) (NOTE) MICROSCOPIC DESCRIPTION: (te st code = 8210) (NOTE) CLINICAL DATA: (test code = 8401) (NOTE) GROSS DESCRIPTION: (test code = 8220) (NOTE) PATHOLOGIST: (test code = 8250) (NOTE) CPT: (test code = 8400) (NOTE) PDFE (test code = PDFReport) PDF Darryl WaggonerVAGINAL PATHOGENS DNA [id number] 13:41:36* Test Item Value Reference Range Interpretation Comme nts JAZ SPECIES (test code = 86140) NEGATIVE NEGATIVE G. VAGINALIS (test code = 21888) NEGATIVE NEGATIVE T. VAGINALIS (test code = 43312) NEGATIVE NEGATIVE Note: The [employer] VPIII Microbial Identification Testis a DNA probe test intended for use in the detectionand identification of Jaz species, Gardnerellavaginalis and Trichomonas vaginalis nucleic acid. UNLESS OTHERWISE INDICATED, ALL TESTING PERFORMED AT [facility] [address] [place] [address] FARM TRUCK DRIVER: ANIBAL PAREDES M.D. [place] NUMBER [id number] [facility] [place]. [id number] VAGINAL PATHOGENS DNA [id number] 00:00:00* Test Item Value Reference Range Interpretation Comme nts JAZ SPECIES (test code = 64354) NEGATIVE G. VAGINALIS (test code = 95771) NEGATIVE T. VAGINALIS (test code = 11560) NEGATIVE Darryl Ackerman AustinVAGINAL PATHOGENS DNA [id number] 00:00:00* Test Item Value Reference Range Interpretation Comme nts JAZ SPECIES (test code = 24435) NEGATIVE G. VAGINALIS (test code = 48082) NEGATIVE T. VAGINALIS (test code = 77149) NEGATIVE Darryl Ackerman AustinVAGINAL PATHOGENS DNA [id number] 00:00:00* Test Item Value Reference Range Interpretation Comme nts JAZ SPECIES (test code = 70579) NEGATIVE G. VAGINALIS (test code = 02633) NEGATIVE T. VAGINALIS (test code = 35117) NEGATIVE Darryl WaggonerCOMP. METABOLIC PANEL (09069)2023-06-12 05:34:53* Test Item Value Reference Range Interpretation Comme nts NA (test code = 0232326215) 137 mmol/L 135-145 K (test code = 2675510442) 3.9 mmol/L 3.5-5.0 CL (test code = 1561451471) 106 mmol/L 98-108 CO2 TOTAL (test code = 8354996207) 24 mmol/L 23-31 AGAP (test code = 9912291914) 7 2-16 BUN (test code = 4342732775) 10 mg/dL 7-23 GLUCOSE (test code = 9716371414) 90 mg/dL 70-110 CREATININE (test code = 1738846398) 0.94 mg/dL 0.50-1.04 TOTAL BILI (test code = 7409713756) 0.1-1.1 L CALCIUM (test code = 8541998493) 9.1 mg/dL 8.6-10.6 T PROTEIN (test code = 3541005698) 6.9 g/dL 6.3-8.2 ALBUMIN (test code = 3977362265) 4.1 g/dL 3.5-5.0 ALK PHOS (test code = 0655730549) 72 U/L 34-122 ALTv (test code = 1742-6) 24 U/L 5-35 AST(SGOT) (test code = 8079844361) 28 U/L 13-40 eGFR (test code = 6584439871) 69.5 mL/min/1.73m2 ELIA (test code = ELIA) [...] imaging tests). Lab Interpretation (test code = 75498-7) Abnormal [facility] WITH [id number] 05:16:33* Test Item Value Reference Range Interpretation Comme nts WBC (test code = 6690-2) 7.81 See_Comment [Automated [employer]] The system which generated this result transmitted reference range: 4.30 - 11.10 10*3/?L. The reference range was not used to interpret this result as normal/abnormal. RBC (test code = 789-8) 3.89 See_Comment L [Automated [employer]] The system which generated this result transmitted [...] g/dL 31.6-35.1 L RDW-SD (test code = 24108-6) 48.2 fL 39.0-49.9 RDW-CV (test code = 788-0) 17.9 % 12.0-15.5 H PLT (test code = 777-3) 327 See_Comment [Automated [employer]] The system which generated this result transmitted reference range: 166 - 358 10*3/?L. The reference range was not used to interpret this result as normal/abnormal. MPV (test code = 01079-5) 9.7 fL 9.5-12.9 NRBC/100 WBC (test code = [id number]) 0.0 See_Comment [Automated me ssage] The system which generated this result transmitted reference range: 0.0 - 10.0 /100 WBCs. The reference range was not used to interpret this result as normal/abnormal. NRBC x10^3 (test code = [id number]) See_Comment [Automated messa ge] The system which generated this result transmitted reference range: 10*3/?L. The reference range was not used to interpret this result as normal/abnormal. GRAN MAT (NEUT) % (test code = 770-8) 40.4 % IMM GRAN % (test code = [id number]) 0.10 % LYMPH % (test code = 736-9) 45.5 % MONO % (test code = 5905-5) 9.0 % EOS % (test code = 713-8) 4.5 % BASO % (test code = 706-2) 0.5 % GRAN MAT x10^3(ANC) (test code = 3940437282) 3.16 10*3/uL 1.88-7.09 IMM GRAN x10^3 (test code = [id number]) 0.00-0.06 LYMPH x10^3 (test code = 731-0) 3.55 10*3/uL 1.32-3.29 H MONO x10^3 (test code = 742-7) 0.70 10*3/uL 0.33-0.92 EOS x10^3 (test code = 711-2) 0.35 10*3/uL 0.03-0.39 BASO x10^3 (test code = 704-7) 0.04 10*3/uL 0.01-0.07 Lab Interpretation (test code = 65661-7) [id number] 05:07:[facility]* Test Item Value Reference Range Interpretation Comme nts POCT PREG (test code = 1605) Negative On board controls acceptable with C Line (test code = 3574) Yes POCT PREG LOT # (test code = 3575) [id number] POCT PREG TEST DATE ( test code = 3576) 10/17/2024 Lab Interpretation (test cod e = 30225-9) [facility], THINPREP, [id number] 18:32:20 * Test Item Value Reference Range Interpretation Comme nts SOURCE: (test code = 8001) Cervical SLIDES: (test code = 8011) 1 LMP: (test code = 8021) 05/17/2023 SPECIMEN ADEQUACY: (test code = 55238) (NOTE) Satisfactory for evaluation. Endocervical cells/transformation zone component present. INTERPRETATION: (test code = 57408) ASCUS/EPITH. ABNORMALITY; SEE BELOW A - ------- EPITHELIAL CELL ABNORMALITY Atypical squamous cells of undetermined significance (ASC-US) OTHER COMMENTS: (test code = 8081) (NOTE) Trichomonas v aginalis present. COMB WINDER: (test code = 8101) TIERA Mcgee(ASC P) PATHOLOGIST INTERPRETATION BY: (test code = 8122) Joana PowerDO LOCATION: (test code = 13733) (NOTE) Specimens proces sed and interpreted at [facility] , [address] [place] [address], , CLIA: [id number] CPT: (test code = 8140) (NOTE) 08417, 27384 UNL ESS OTHERWISE INDICATED, COMPUTER AIDED AND COMB WINDER SCREENING PERFORMED. The Pap test is a screening test with an inherent, but low probability of error. Your patient should be reminded to consult you immediately if she experiences any suspicious signs or symptoms, regardless of her Pap test result. An alternate report format containing images or consolidated prior Pap history is available as applicable. PAP TEST, THINPREP, [id number] 00:00:00* Test Item Value Reference Range Interpretation Comme nts SOURCE: (test code = 8001) Cervical SLIDES: (test code = 8011) 1 LMP: (test code = 8021) 05/17/2023 SPECIMEN ADEQUACY: (test code = 91259) (NOTE) INTERPRETATION: (test code = 00334) ASCUS/EPITH. ABNORMALITY; SEE BELOW OTHER COMMENTS: (test code = 8081) (NOTE) COMB WINDER: (test code = 8101) TIERA Mcgee(ASCP) PATHOLOGIST INTERPRETATION BY: (test code = 8122) Joana Luna DO LOCATION: (test code = 86064) (NOTE) CPT: (test code = 8140) (NOTE) Darryl WaggonerRIOS TEST, THINPREP, [id number] 00:00:00* Test Item Value Reference Range Interpretation Comme nts SOURCE: (test code = 8001) Cervical SLIDES: (test code = 8011) 1 LMP: (test code = 8021) 05/17/2023 SPECIMEN ADEQUACY: (test code = 11566) (NOTE) INTERPRETATION: (test code = 43872) ASCUS/EPITH. ABNORMALITY; SEE BELOW OTHER COMMENTS: (test code = 8081) (NOTE) COMB WINDER: (test code = 8101) TIERA Mcgee(ASCP) PATHOLOGIST INTERPRETATION BY: (test code = 8122) Joana Luna DO LOCATION: (test code = 25383) (NOTE) CPT: (test code = 8140) (NOTE) Darryl WaggonerRIOS TEST, THINPREP, [id number] 00:00:00* Test Item Value Reference Range Interpretation Comme nts SOURCE: (test code = 8001) Cervical SLIDES: (test code = 8011) 1 LMP: (test code = 8021) 05/17/2023 SPECIMEN ADEQUACY: (test code = 40405) (NOTE) INTERPRETATION: (test code = 31775) ASCUS/EPITH. ABNORMALITY; SEE BELOW OTHER COMMENTS: (test code = 8081) (NOTE) COMB WINDER: (test code = 8101) TIERA Mcgee(ASCP) PATHOLOGIST INTERPRETATION BY: (test code = 8122) Joana Luna DO LOCATION: (test code = 04715) (NOTE) CPT: (test code = 8140) (NOTE) Darryl Ackerman AustinCT/NG, NAAT, [id number] 20:10:21* Test Item Value Reference Range Interpretation Comme nts CHLAMYDIA, NAAT, URINE (test code = 32674) POSITIVE NEGATIVE A Testing is perfo rmed with Lucie HARRY 6800/8800 systems usingreal-time polymerase chain reaction (PCR) method. GONORRHEA, NAAT, URINE (test code = 20945) NEGATIVE NEGATIVE Testing is perfo rmed with Lucie HARRY 6800/8800 systems usingreal-time polymerase chain reaction (PCR) method. A negative result does not exclude low level infection, specimensampling error, or collection error. UNLESS OTHERWISE INDICATED, ALL TESTING PERFORMED AT [facility] [address] [place] [address] FARM TRUCK DRIVER: ANIBAL PAREDES M.D. CLIA NUMBER [id number] [place]. [id number] HPV HIGH RISK WITH GENOTYPE, [id number] 17:33:46* Test Item Value Reference Range Interpretation Comme nts HPV HIGH RISK INTERP (test code = 95836) POSITIVE NEGATIVE A HPV 16 (test code = 92418) POSITIVE A HPV 18 (test code = 74971) NEGATIVE HPV, HR, OTHER GENOTYPES (test code = 51282) NEGATIVE Testing methodol ogy is real-time PCR [...] INDICATED, ALL TESTING PERFORMED AT [facility] [address] [place] [address] FARM TRUCK DRIVER: ANIBAL PAREDES M.D. CLIA NUMBER [id number] [place]. [id number] VAGINAL PATHOGENS DNA [id number] 16:55:18* Test Item Value Reference Range Interpretation Comme nts JAZ SPECIES (test code = 07282) NEGATIVE NEGATIVE G. VAGINALIS (test code = 04135) NEGATIVE NEGATIVE T. VAGINALIS (test code = 86631) NEGATIVE NEGATIVE Note: The BD [facility] irm VPIII Microbial Identification Testis a DNA probe test intended for use in the detectionand identification of Jaz species, Gardnerellavaginalis and Trichomonas vaginalis nucleic acid. UNLESS OTHERWISE INDICATED, ALL TESTING PERFORMED AT [facility] [address] [place] [address] FARM TRUCK DRIVER: ANIBAL PAREDES M.D. [place] NUMBER [id number] [facility] [place]. [id number] RPR REFLEX TO T. PALLIDUM - [id number] 08:07:41* Test Item Value Reference Range Interpretation Comme nts RPR (test code = 14275) NON-REACTIVE NON-REACTIVE RPR TITER (test code = 3500) NOT INDIC. TITER NOT INDIC. HIV 1/2 4TH GEN, RFLX [id number] 05:24:44* Test Item Value Reference Range Interpretation Comme nts HIV 1/2 4TH GEN, RFLX CONF ( test code = 3514) NON-REACTIVE NON-REACTIVE HPV HIGH RISK WITH GENOTYPE, [id number] 00:00:00* Test Item Value Reference Range Interpretation Comme nts HPV HIGH RISK INTERP (test c ode = 32411) POSITIVE HPV 16 (test code = 14966) POSITIVE HPV 18 (test code = 96580) NEGATIVE HPV, HR, OTHER GENOTYPES (te st code = 23446) NEGATIVE PDFE (test code = PDFReport) PDF Darryl F AustinRPR REFLEX TO T. PALLIDUM - [id number] 00:00:00* Test Item Value Reference Range Interpretation Comme nts RPR (test code = 37649) NON-REACTIVE RPR TITER (test code = 3500) NOT INDIC. TITER Darryl F AustinCT/NG, TMA, [id number] 00:00:00* Test Item Value Reference Range Interpretation Comme nts CHLAMYDIA, NAAT, URINE (test code = 60492) POSITIVE GONORRHEA, NAAT, URINE (test code = 94183) NEGATIVE Darryl F AustinHIV 1/2 4TH GEN, RFLX [id number] 00:00:00* Test Item Value Reference Range Interpretation Comme nts HIV 1/2 4TH GEN, RFLX CONF ( test code = 3514) NON-REACTIVE Darryl F AustinVAGINAL PATHOGENS DNA [id number] 00:00:00* Test Item Value Reference Range Interpretation Comme nts JAZ SPECIES (test code = 93240) NEGATIVE G. VAGINALIS (test code = 33191) NEGATIVE T. VAGINALIS (test code = 29411) NEGATIVE Darryl Ackerman AustinRPR REFLEX TO T. PALLIDUM - [id number] 00:00:00* Test Item Value Reference Range Interpretation Comme nts RPR (test code = 95429) NON-REACTIVE RPR TITER (test code = 3500) NOT INDIC. TITER Darryl Ackerman AustinHPV HIGH RISK WITH GENOTYPE, [id number] 00:00:00* Test Item Value Reference Range Interpretation Comme nts HPV HIGH RISK INTERP (test c ode = 88288) POSITIVE HPV 16 (test code = 35200) POSITIVE HPV 18 (test code = 70843) NEGATIVE HPV, HR, OTHER GENOTYPES (te st code = 50826) NEGATIVE PDFE (test code = PDFReport) PDF Darryl Ackerman AustinCT/NG, TMA, [id number] 00:00:00* Test Item Value Reference Range Interpretation Comme nts CHLAMYDIA, NAAT, URINE (test code = 15179) POSITIVE GONORRHEA, NAAT, URINE (test code = 30161) NEGATIVE Darryl Ackerman AustinHIV 1/2 4TH GEN, RFLX [id number] 00:00:00* Test Item Value Reference Range Interpretation Comme nts HIV 1/2 4TH GEN, RFLX CONF ( test code = 3514) NON-REACTIVE Darryl Ackerman AustinVAGINAL PATHOGENS DNA [id number] 00:00:00* Test Item Value Reference Range Interpretation Comme nts JAZ SPECIES (test code = ) NEGATIVE G. VAGINALIS (test code = 11241) NEGATIVE T. VAGINALIS (test code = 97621) NEGATIVE Darryl Ackerman AustinHPV HIGH RISK WITH GENOTYPE, [id number] 00:00:00* Test Item Value Reference Range Interpretation Comme nts HPV HIGH RISK INTERP (test c ode = 52949) POSITIVE HPV 16 (test code = 62291) POSITIVE HPV 18 (test code = 94229) NEGATIVE HPV, HR, OTHER GENOTYPES (te st code = 44114) NEGATIVE PDFE (test code = PDFReport) PDF Darryl Ackerman AustinRPR REFLEX TO T. PALLIDUM - [id number] 00:00:00* Test Item Value Reference Range Interpretation Comme nts RPR (test code = 77089) NON-REACTIVE RPR TITER (test code = 3500) NOT INDIC. TITER Darryl WaggonerCT/NG, TMA, [id number] 00:00:00* Test Item Value Reference Range Interpretation Comme nts CHLAMYDIA, NAAT, URINE (test code = 44297) POSITIVE GONORRHEA, NAAT, URINE (test code = 63584) NEGATIVE Darryl WaggonerHIV 1/2 4TH GEN, RFLX [id number] 00:00:00* Test Item Value Reference Range Interpretation Comme nts HIV 1/2 4TH GEN, RFLX CONF ( test code = 3514) NON-REACTIVE Darryl WaggonerVAGINAL PATHOGENS DNA [id number] 00:00:00* Test Item Value Reference Range Interpretation Comme nts JAZ SPECIES (test code = 50907) NEGATIVE G. VAGINALIS (test code = 32792) NEGATIVE T. VAGINALIS (test code = 17287) NEGATIVE Darryl WaggonerCOMP. METABOLIC PANEL (02170)2023-05-28 07:12:09* Test Item Value Reference Range Interpretation Comme nts NA (test code = 5827719224) 138 mmol/L 135-145 K (test code = 9134347314) 3.6 mmol/L 3.5-5.0 CL (test code = 5869725606) 105 mmol/L 98-108 CO2 TOTAL (test code = 1242666337) 24 mmol/L 23-31 AGAP (test code = 9582367799) 9 2-16 BUN (test code = 7507286227) 8 mg/dL 7-23 GLUCOSE (test code = 6233961027) 94 mg/dL 70-110 CREATININE (test code = 8972826584) 0.90 mg/dL 0.50-1.04 TOTAL BILI (test code = 9525849649) 0.5 mg/dL 0.1-1.1 CALCIUM (test code = 1041006555) 9.2 mg/dL 8.6-10.6 T PROTEIN (test code = 9008937978) 7.8 g/dL 6.3-8.2 ALBUMIN (test code = 7168593448) 4.3 g/dL 3.5-5.0 ALK PHOS (test code = 9209253283) 91 U/L 34-122 ALTv (test code = 1742-6) 32 U/L 5-35 AST(SGOT) (test code = 9274063880) 48 U/L 13-40 H eGFR (test code = 8649301649) 73.0 mL/min/1.73m2 ELIA (test code = ELIA) [...] imaging tests). Lab Interpretation (test code = 78591-5) Abnormal [facility] WITH [id number] 06:45:45* Test Item Value Reference Range Interpretation Comme nts WBC (test code = 6690-2) 7.78 See_Comment [Automated [employer]] The system which generated this result transmitted reference range: 4.30 - 11.10 10*3/?L. The reference range was not used to interpret this result as normal/abnormal. RBC (test code = 789-8) 4.16 See_Comment [Automated messa ge] The system which [...] g/dL 31.6-35.1 L RDW-SD (test code = 73711-5) 49.8 fL 39.0-49.9 RDW-CV (test code = 788-0) 18.3 % 12.0-15.5 H PLT (test code = 777-3) 391 See_Comment H [Automated messa ge] The system which generated this result transmitted reference range: 166 - 358 10*3/?L. The reference range was not used to interpret this result as normal/abnormal. MPV (test code = 72431-2) 10.3 fL 9.5-12.9 NRBC/100 WBC (test code = 0648777956) 0.0 See_Comment [Automated [employer]] The system which generated this result transmitted reference range: 0.0 - 10.0 /100 WBCs. The reference range was not used to interpret this result as normal/abnormal. NRBC x10^3 (test code = 6621337116) See_Comment [Automated messa ge] The system which generated this result transmitted reference range: 10*3/?L. The reference range was not used to interpret this result as normal/abnormal. GRAN MAT (NEUT) % (test code = 770-8) 47.8 % IMM GRAN % (test code = 4919936819) 0.30 % LYMPH % (test code = 736-9) 39.1 % MONO % (test code = 5905-5) 8.5 % EOS % (test code = 713-8) 3.5 % BASO % (test code = 706-2) 0.8 % GRAN MAT x10^3(ANC) (test code = 1221777196) 3.73 10*3/uL 1.88-7.09 IMM GRAN x10^3 (test code = 0722914784) 0.00-0.06 LYMPH x10^3 (test code = 731-0) 3.04 10*3/uL 1.32-3.29 MONO x10^3 (test code = 742-7) 0.66 10*3/uL 0.33-0.92 EOS x10^3 (test code = 711-2) 0.27 10*3/uL 0.03-0.39 BASO x10^3 (test code = 704-7) 0.06 10*3/uL 0.01-0.07 Lab Interpretation (test code = 65294-7) Abnormal [facility] [id number] 06:40:00* Test Item Value Reference Range Interpretation Comme nts POCT PREG (test code = 1605) Negative On board controls acceptable with C Line (test code = 3574) Yes POCT PREG LOT # (test code = 3575) [id number] POCT PREG TEST DATE ( test code = 3576) 10/17/2024 Lab Interpretation (test cod e = 26324-3) Normal [facility] [id number] 06:17:00* Test Item Value Reference Range Interpretation Comme nts POCT PREG (test code = 1605) Negative On board controls acceptable with C Line (test code = 3574) Present POCT PREG LOT # (test code = 3575) [id number] POCT PREG TEST DATE ( test code = 3576) Lab Interpretation (test cod e = 48620-2) Normal [facility] [id number] 18:58:00* Test Item Value Reference Range Interpretation Comme nts POCT PREG (test code = 1605) negative Lab Interpretation (test cod e = 13496-8) Normal [facility] WITH [id number] 13:14:57* Test Item Value Reference Range Interpretation [...] g/dL 31.6-35.1 L RDW-SD (test code = 51799-8) 46.2 fL 39-49.9 RDW-CV (test code = 788-0) 17.0 % 12-15.5 H PLT (test code = 777-3) See_Comment H [Automated messa ge] The system which generated this result transmitted reference range: 166 - 358 10*3/?L. The reference range was not used to interpret this result as normal/abnormal. MPV (test code = 51326-2) 9.1 fL 9.5-12.9 L NRBC/100 WBC (test code = 0171584524) See_Comment [Automated me ssage] The system which generated this result transmitted reference range: 0.0 - 10.0 /100 WBCs. The reference range was not used to interpret this result as normal/abnormal. NRBC x10^3 (test code = 8705299528) See_Comment [Automated messa ge] The system which generated this result transmitted reference range: 10*3/?L. The reference range was not used to interpret this result as normal/abnormal. GRAN MAT (NEUT) % (test code = 770-8) 51.3 % IMM GRAN % (test code = 7685964092) 0.40 % LYMPH % (test code = 736-9) 37.0 % MONO % (test code = 5905-5) 8.5 % EOS % (test code = 713-8) 2.2 % BASO % (test code = 706-2) 0.6 % GRAN MAT x10^3(ANC) (test code = 9215605431) 4.26 10*3/uL 1.88-7.09 IMM GRAN x10^3 (test code = 7079051412) 0.03 10*3/uL 0-0.06 LYMPH x10^3 (test code = 731-0) 3.06 10*3/uL 1.32-3.29 MONO x10^3 (test code = 742-7) 0.70 10*3/uL 0.33-0.92 EOS x10^3 (test code = 711-2) 0.18 10*3/uL 0.03-0.39 BASO x10^3 (test code = 704-7) 0.05 10*3/uL 0.01-0.07 Lab Interpretation (test code = 12016-7) Abnormal [facility] [id number] 12:55:00* Test Item Value Reference Range Interpretation Comme nts POCT PREG (test code = 1605) negative On board controls acceptable with C Line (test code = 3574) present Lab Interpretation (test cod e = 68329-3) Normal [facility] [id number] 20:49:00* Test Item Value Reference Range Interpretation Comme nts POCT PREG (test code = 1605) negative On board controls acceptable with C Line (test code = 3574) yes POCT PREG LOT # (test code = 3575) [id number] POCT PREG TEST DATE ( test code = 3576) 08/14/2023 Lab Interpretation (test cod e = 77770-5) [facility] [id number] 08:01:55* Test Item Value Reference Range Interpretation Comme nts NA (test code = 3313243610) 138 mmol/L 135-145 K (test code = 2272394747) 4.2 mmol/L 3.5-5 CL (test code = 2117196280) 107 mmol/L 98-108 CO2 TOTAL (test code = 9051354241) 20 mmol/L 23-31 L AGAP (test code = 7023761397) 2-16 BUN (test code = 3363118212) 10 mg/dL 7-23 GLUCOSE (test code = 1420370683) 105 mg/dL 70-110 CREATININE (test code = 1385473152) 0.86 mg/dL 0.5-1.04 TOTAL BILI (test code = 7240207235) 0.1-1.1 L CALCIUM (test code = 5814922823) 9.1 mg/dL 8.6-10.6 T PROTEIN (test code = 1955868246) 7.4 g/dL 6.3-8.2 ALBUMIN (test code = 9077779056) 4.8 g/dL 3.5-5 ALK PHOS (test code = 4678152572) 81 U/L 34-122 ALTv (test code = 1742-6) 17 U/L 5-35 AST(SGOT) (test code = 1042481244) 19 U/L 13-40 eGFR (test code = 8427992538) mL/min/1.73m2 ELIA (test code = ELIA) Association [...] imaging tests). Lab Interpretation (test code = 27005-5) [facility] [id number] 07:59:48* Test Item Value Reference Range Interpretation Comme nts LIPASE (test code = 8710456166) 94 U/L 0-220 Lab Interpretation (test cod e = 24195-6) [facility] with [id number] 07:47:29* Test Item Value Reference Range Interpretation Comme nts WBC (test code = 6690-2) See_Comment [Automated [employer]] The system which generated this result transmitted reference range: 4.30 - 11.10 10*3/?L. The reference range was not used to interpret this result as normal/abnormal. RBC (test code = 789-8) See_Comment [Automated [employer]] The system which generated this result transmitted [...] g/dL 31.6-35.1 L RDW-SD (test code = 40458-1) 40.2 fL 39-49.9 RDW-CV (test code = 788-0) 15.0 % 12-15.5 PLT (test code = 777-3) See_Comment [Automated [employer]] The system which generated this result transmitted reference range: 166 - 358 10*3/?L. The reference range was not used to interpret this result as normal/abnormal. MPV (test code = 63875-5) 10.1 fL 9.5-12.9 NRBC/100 WBC (test code = 1160125024) See_Comment [Automated me ssage] The system which generated this result transmitted reference range: 0.0 - 10.0 /100 WBCs. The reference range was not used to interpret this result as normal/abnormal. NRBC x10^3 (test code = 4997660793) See_Comment [Automated messa ge] The system which generated this result transmitted reference range: 10*3/?L. The reference range was not used to interpret this result as normal/abnormal. GRAN MAT (NEUT) % (test code = 770-8) 46.6 % IMM GRAN % (test code = 3305581957) 0.40 % LYMPH % (test code = 736-9) 40.7 % MONO % (test code = 5905-5) 8.6 % EOS % (test code = 713-8) 3.3 % BASO % (test code = 706-2) 0.4 % GRAN MAT x10^3(ANC) (test code = 0333045236) 3.40 10*3/uL 1.88-7.09 IMM GRAN x10^3 (test code = 9507072213) 0.03 10*3/uL 0-0.06 LYMPH x10^3 (test code = 731-0) 2.97 10*3/uL 1.32-3.29 MONO x10^3 (test code = 742-7) 0.63 10*3/uL 0.33-0.92 EOS x10^3 (test code = 711-2) 0.24 10*3/uL 0.03-0.39 BASO x10^3 (test code = 704-7) 0.03 10*3/uL 0.01-0.07 Lab Interpretation (test code = 62332-9) Abnormal [facility] [id number] 07:37:00* Test Item Value Reference Range Interpretation Comme nts POCT PREG (test code = 1605) Negative On board controls acceptable with C Line (test code = 3574) Present POCT PREG LOT # (test code = 3575) [id number] POCT PREG TEST DATE ( test code = 3576) 08/14/2023 Lab Interpretation (test cod e = 70221-0) Normal [facility] [id number] 22:19:00* Test Item Value Reference Range Interpretation Comme nts POCT PREG (test code = 1605) NEGATIVE On board controls acceptable with C Line (test code = 3574) present POCT PREG LOT # (test code = 3575) [id number] POCT PREG TEST DATE ( test code = 3576) 07/14/2023 Lab Interpretation (test cod e = 45309-1) [facility] [id number] 19:54:00* Test Item Value Reference Range Interpretation Comme nts POCT PREG (test code = 1605) negative On board controls acceptable with C Line (test code = 3574) present POCT PREG LOT # (test code = 3575) [id number] POCT PREG TEST DATE ( test code = 3576) 12/12/2022 Lab Interpretation (test cod e = 78167-3) General acute hospitalFERRITIN2022-01-07 06:28:44* Test Item Value Reference Range Interpretation Comme nts FERRITIN (test code = 2075) 3 NG/ML 13-200 L [id number] 04:37:13* Test Item Value Reference Range Interpretation Comme nts TRANSFERRIN (test code = 4936) 385 MG/DL 200-360 H UNLESS OTHERWISE INDICATED, [facility] [address] [place] [address] FARM TRUCK DRIVER: NICOLE GUSMAN M.D. CLIA NUMBER [id number] [facility]. [id number] IRON BINDING CAPACITY AND IRON AND % [id number] 04:19:01* Test Item Value Reference Range Interpretation Comme nts IRON, SERUM (test code = 2222) 11 UG/DL 37-145 L UNSATURATED IBC (test code = 18461) 442 UG/DL 112-347 H CALC TOTAL IBC (test code = 2077) 453 UG/DL 250-450 H CALC % IRON SAT (test code = 2079) 2 % 20-50 L IRON BINDING CAPACITY AND IRON AND % [id number] 00:00:00* Test Item Value Reference Range Interpretation Comme nts IRON, SERUM (test code = 2221) 11 UG/DL UNSATURATED IBC (test code = 14812) 442 UG/DL CALC TOTAL IBC (test code = 2076) 453 UG/DL CALC % IRON SAT (test code = 2078) 2 % [id number] 00:00:00* Test Item Value Reference Range Interpretation Comme nts FERRITIN (test code = 2074) 3 NG/ML [id number] 00:00:00* Test Item Value Reference Range Interpretation Comme nts TRANSFERRIN (test code = 4936) 385 MG/DL IRON BINDING CAPACITY AND IRON AND % [id number] 00:00:00* Test Item Value Reference Range Interpretation Comme nts IRON, SERUM (test code = 2221) 11 UG/DL UNSATURATED IBC (test code = 56264) 442 UG/DL CALC TOTAL IBC (test code = 2076) 453 UG/DL CALC % IRON SAT (test code = 2078) 2 % [id number] 00:00:00* Test Item Value Reference Range Interpretation Comme nts FERRITIN (test code = 2074) 3 NG/ML [id number] 00:00:00* Test Item Value Reference Range Interpretation Comme nts TRANSFERRIN (test code = 4936) 385 MG/DL IRON BINDING CAPACITY AND IRON AND % [id number] 00:00:00* Test Item Value Reference Range Interpretation Comme nts IRON, SERUM (test code = 2221) 11 UG/DL UNSATURATED IBC (test code = 15981) 442 UG/DL CALC TOTAL IBC (test code = 2076) 453 UG/DL CALC % IRON SAT (test code = 2078) 2 % Darryl F [id number] 00:00:00* Test Item Value Reference Range Interpretation Comme nts FERRITIN (test code = 2074) 3 NG/ML Darryl F [id number] 00:00:00* Test Item Value Reference Range Interpretation Comme nts TRANSFERRIN (test code = 4936) 385 MG/DL Darryl F AustinIRON BINDING CAPACITY AND IRON AND % [id number] 00:00:00* Test Item Value Reference Range Interpretation Comme nts IRON, SERUM (test code = 2221) 11 UG/DL UNSATURATED IBC (test code = 51880) 442 UG/DL CALC TOTAL IBC (test code = 7) 453 UG/DL CALC % IRON SAT (test code = 9) 2 % Darryl Ackerman [id number] 00:00:00* Test Item Value Reference Range Interpretation Comme nts FERRITIN (test code = 2075) 3 NG/ML Darryl Ackerman [id number] 00:00:00* Test Item Value Reference Range Interpretation Comme nts TRANSFERRIN (test code = 4936) 385 MG/DL Darryl WaggonerIRON BINDING CAPACITY AND IRON AND % [id number] 00:00:00* Test Item Value Reference Range Interpretation Comme nts IRON, SERUM (test code = 2222) 11 UG/DL UNSATURATED IBC (test code = 12914) 442 UG/DL CALC TOTAL IBC (test code = 7) 453 UG/DL CALC % IRON SAT (test code = 2078) 2 % Darryl Ackerman [id number] 00:00:00* Test Item Value Reference Range Interpretation Comme nts FERRITIN (test code = 2075) 3 NG/ML Darryl Ackerman [id number] 00:00:00* Test Item Value Reference Range Interpretation Comme nts TRANSFERRIN (test code = 4936) 385 MG/DL Darryl Ackerman AustinTSH, THIRD [id number] 06:15:03* Test Item Value Reference Range Interpretation Comme nts TSH, THIRD GENERATION (test code = 2821) 0.675 UIU/ML 0.400-4.100 UNLESS OTHERWISE INDICATED, ALL TESTING PERFORMED [facility] [address] [place] [address] [employer]UCK [employer]IVER: NICOLE GUSMAN M.D. CLIA NUMBER [id number] CAP ACCREDITATION NO. [id number] CBC W/AUTO DIFF WITH [id number] 02:57:36* Test Item Value Reference Range Interpretation [...] 0.00-0.10 ABS NUCLEATED RBCS (test code = 13235) 0.00 K/UL 0.00-0.11 CBC W/AUTO [id number] 00:00:00* Test Item Value Reference Range Interpretation [...] ABS NUCLEATED RBCS (test cod e = 36608) 0.00 K/UL [id number] 00:00:00* Test Item Value Reference Range Interpretation Comme nts TSH, THIRD GENERATION (test code = 2821) 0.675 UIU/ML CBC W/AUTO [id number] 00:00:00* Test Item Value Reference Range Interpretation [...] ABS NUCLEATED RBCS (test cod e = 17166) 0.00 K/UL [id number] 00:00:00* Test Item Value Reference Range Interpretation Comme nts TSH, THIRD GENERATION (test code = 2821) 0.675 UIU/ML [id number] 00:00:00* Test Item Value Reference Range Interpretation Comme nts TSH, THIRD GENERATION (test code = 2821) 0.675 UIU/ML Darryl WaggonerCBC W/AUTO [id number] 00:00:00* Test Item Value Reference Range Interpretation [...] ABS NUCLEATED RBCS (test cod e = 44189) 0.00 K/UL Darryl Ackerman [id number] 00:00:00* Test Item Value Reference Range Interpretation Comme nts TSH, THIRD GENERATION (test code = 2821) 0.675 UIU/ML [facility] [id number] 00:00:00* Test Item Value Reference Range Interpretation [...] ABS NUCLEATED RBCS (test cod e = 87514) 0.00 K/UL Darryl Ackerman [id number] 00:00:00* Test Item Value Reference Range Interpretation Comme nts TSH, THIRD GENERATION (test code = 2821) 0.675 UIU/ML Darryl Ackerman EdilsonCBC W/AUTO [id number] 00:00:00* Test Item Value Reference Range Interpretation [...] ABS NUCLEATED RBCS (test cod e = 35031) 0.00 K/UL Darryl Ackerman Edilson Notes Date/Time Note Provider Source 2024-07-25 10:46:00 Written/verbal D/c instructions, out of er no distress, T [facility] 2024-07-25 10:30:00 Pt has had no emesis since arrival T [facility] 2024-07-25 07:48:10 Mini Zhu is a 33 year old female c/o n/v/d since Sunday, states this morning at 0700 threw up blood, no abdominal pain, states now has a headache, alert cheerful, states hx gastritis, esophagitis and iron def anemia, ran out of pantoprazole and takes iron occasionally. States her bipolar meds aren't staying down either, Sheila Starkey [facility] 05:48:27 Discharge information given verbally and in writing, including of s/s of when to return to ER Patient denies questions and verbalized understanding. IV discontinued without issue. Pt ambulated off unit with steady gate, vital signs stable, no acute distress. T [facility]ov[facility]oper [facility]04[facility] 02:26:00 Lower abd pain since midnight, and back pain, pt states she has shingles and has been using tropical cream for tx. [facility]00 Darryl Arriaga [facility]2024-05-29 06:06:53 Pt given printed and verbal discharge [...] with steady gait, in no apparent distress. Ashly Srivastava [facility]npjjc7579-98-61 02:07:22 Pt given urine cup and placed in the lobby, pt advice to notify nurse with any other concerns or if symptoms worsen. [facility]44[facility] 02:02:32 C/O states that she began vomited blood X5 since midnight. T Kait Seay [facility]Byfxgb9339-26-37 00:00:00 Darryl Arriaga [facility]2024-04-21 07:09:15 Pt given printed and verbal discharge [...] gait, in no apparent distress, Cl Estrada [facility]Dkgssr2061-09-37 03:59:45 Pt states that she vomiting 6 times a day, pt states that she had a vomiting episode that was different tonight, she states that it was dark and looks like a bunch of clots pt states that this happened approx 45 mins area captain Kait Seay RNUT - [id number] 03:51:00 [facility] Emergency Department Note Patient Name: Mini Zhu Date of : 1990 33 year old female Treatment Room: AL5/[facility] Primary Care Physician: Rachelle Ackerman [facility] Patient Escorted by: Family [5] Mode of Arrival: Personal means [1] EMS Treatment Prior to ED Arrival: PIER HAND treatment: None Travel and Exposure Screening: Symptoms [...] by: Patient, medical records and significant other veterinary hospital attendant used: No Abdominal Pain Pain location: Generalized [...] Lab Results: Lab Results COMP. METABOLIC PANEL (66612) - Abnormal Result Value Ref Range NA [...] then 250 mg days 2 to 5. [id number] 50-325-40 MG TABLET Take 1 tablet by [...] for follow-up Tommie Arita MD Specialty: IM-GASTROENTEROLOGY [facility] [address] [id number] Electronically signed by: Selene Parra MD 02/03/24 0658 T [facility]eqvxt0983-49-75 00:43:46 Pt given printed and verbal discharge [...] w/d, pt leaving in no apparent distress, Ashly Gibson RNUTMB - [id number] 00:31:47 Pt notified covid test was inconclusive. She refuses additional covid swabbing. She reports continuing head congestion. Dr. Marie in to see pt at this time. [facility]eursd4833-29-65 22:22:36 Pt arrived ambulatory with c/o congestion. Pt states I have bad congestion, sneezing, coughing and headache. No fever. I vomited once prior to coming to the ED." Duyen Pereira [facility]Vynzjp4278-20-60 05:22:47 Awake, alert oriented X4, respiratory even [...] noted upon discharge Pt ambulated to the [facility] with steady gait Kait Seay [facility]Apsixx9526-64-41 03:48:35 Pt arrived with c/ migraine headache off-and-on for 7 days. Pt took Midol at 6:30pm. Pt report the Midol help for about 30 minutes then the headache came back. Pt states she has tried Ibu, tylenol, and naproxen but none of these medications have helped her migraine. Nicole Patel [facility]vgusp6911-54-80 03:43:00 [facility] Emergency Department Note Patient Name: Mini Zhu Date of : 1990 33 year old female Treatment Room: [facility] FT/[id number] Primary Care Physician: Rachelle Ackerman [facility] Patient Escorted by: Family [5] Mode of Arrival: Personal means [1] EMS Treatment Prior to ED Arrival: PIER HAND treatment: None Travel and Exposure Screening: Symptoms [...] History provided by: Patient and medical records veterinary hospital attendant used: No Headache Pain location: Frontal Quality: [...] this encounter. Orders Placed This Encounter Medications axveognudb-tkruupfodzqts-ynfg (ESGIC) 50-325-40 mg tablet 1 tablet First Provider Eval: ED Events Date/Time Event User Comments 12/26/23354 Medical Screening Begins SELENE PARRA MD -- 12/26/23354 First Provider Evaluation SELENE PARRA MD -- ED COURSE Diagnosis/Impression as of 12/26/23 0440 Headache disorder Procedures: Procedures MDM: Medical Decision Making Mini Cristel Zhu is a 33 year old female [...] file Follow-up: Contact information for follow-up Darryl F [facility], [facility] Relationship: PCP - General [address] [place] [phone] Demetrio Stout MD Specialty: PN-NEUROLOGY [facility] [address] [place] [address]. [facility] [phone] Electronically signed by: Selene Parra MD 12/26/23439 [facility]daydm8270-[facility] 10:50:14 Patient discharged home. Follow up with pcp in 2-3 days. Return with worsening symptoms. Verbalized dc instructions. Signed paper work. AND VAULT SERVICE MECHANIC Yadiel Davis RNW[facility]oster [facility] HospitalVkirwr3391-24-24 06:42:12 Bilateral lower abdominal pain on and off for month. Pain started this morning at 1230 and hasn't stopped. Saw by OB, US ordered pt unable to pay for it. Was instructed to got to ER if got worse. Vomited 3 time this am [place] 386004-01-29 01:09:27 Pt given printed and verbal discharge [...] steady gait, in no apparent distress. [place] 386004-01-29 00:35:00 PO challenge completed. Patient tolerating water and crackers. [place] 354224-01-29 00:06:08 Patient arrived ambulatory to ED c/o vomiting. Patient states vomiting up her dinner and then vomiting "bright red chunks." Diarrhea x a couple of days. No medications taken PIER HAND. [place] 386004-01-29 00:03:00 [facility] Emergency Department Note Patient Name: Mini Zhu Date of : 1990 32 year old female Treatment Room: Room/bed info not found Primary Care Physician: Rachelle Ackerman [facility] Patient Escorted by: Family [5] Mode of Arrival: Personal means [1] EMS Treatment Prior to ED Arrival: PIER HAND treatment: None Travel and Exposure Screening: Symptoms [...] -- ED COURSE Diagnosis/Impression as of 11/12/23 0104 Nausea and vomiting, unspecified vomiting type Diarrhea, [...] 200 mg capsule Comments: Reason for Stopping: ngshypfjcq-sdfmtaezwimqo-xusj 50-325-40 mg tablet Comments: Reason for Stopping: megestroL 40 mg tablet Comments: Reason for Stopping: tamsulosin 0.4 mg 24 hr capsule Comments: Reason for Stopping: ketorolac 10 mg tablet Comments: Reason for Stopping: Follow-up: Electronically signed by: Chayo Srivastava DO 11/12/23103 AND VAULT SERVICE MECHANIC [facility]Xloclk9945-35-74 20:56:44 Pt discharged home, given all education and information regarding s/s of worsening condition; prescription use; pain and fever management as well as the importance of follow up. Pt verbalized understanding. Alert and ambulatory to v with family. [facility] Wilman Felix [place] 386004-01-13 20:24:32 Pt arrived ambulatory with complaints of viral symptoms x2 days. Pt is positive and she took home test today and is positive too. Pt was concerned because her fever was 101 and her husbands only hit 100f. Pt has n/v but hasn't taken her Zofran. [facility] Cora Peraza [facility]Ftvpha9336-24-68 06:48:38 Prescriptions provided Pt verbalized understanding of [...] with steady gait, in no apparent distress. [facility]2023-09-10 05:26:28 Pt arrives ambulatory to ED c/o left sided lower abdominal pain. She reports that she came in last week and was found to have multiple gynecological issues and was given multiple prescriptions which she says has not helped her pain issue. LMP: 06/12/2023 Ashly Srivastava [facility] - [id number] 05:14:00 [facility] Emergency Department Note Patient Name: Mini Zhu Date of : 1990 32 year old female [id number] Primary Care Physician: Rachelle Ackerman [facility] Patient Escorted by: Family [5] Mode of Arrival: Personal means [1] EMS Treatment Prior to ED Arrival: PIER HAND treatment: None Travel and Exposure Screening: Symptoms [...] by: Patient, medical records and significant other veterinary hospital attendant used: No Abdominal Pain Pain location: LLQ [...] file. ED COURSE Diagnosis/Impression as of 06/24/23 0628 Left sacral radiculopathy Procedures: Procedures MDM: Medical [...] (three) times daily as needed for Cough. TMVNBYPHEJ-DCODCUYKHOEFZ-TOFK 50-325-40 MG TABLET Take 1 tablet by [...] follow-up Jaime Rebolledo MD Specialty: ORT-ORTHOPAEDIC SURGERY [address] [facility] [id number] Electronically signed by: Selene Parra MD 06/24/23632 [facility] - [id number] 01:30:00 Awake, alert oriented X4, respiratory even [...] noted upon discharge Pt ambulated to the lobby with steady gait [facility]Kxrrts4779-88-19 23:50:11 C/O head congestion, chest congestion, body aches, sore throat since last Sunday, pt denies any fever. Kait Seay RNW[facility] HospitalBhixth8887-78-19 23:45:00 [facility] Emergency Department Note Patient Name: Mini Zhu Date of : 1990 32 year old female Treatment Room: Room/bed info not found Primary Care Physician: Rachelle Ackerman [facility] Patient Escorted by: Family [5] Mode of Arrival: Personal means [1] EMS Treatment Prior to ED Arrival: PIER HAND treatment: None Travel and Exposure Screening: Symptoms [...] clinic, negative x2. Recent encounters: 1. 06/11/23. [facility] ED. Pelvic pain. PID prophylaxis in ED. US Pelvis, fibroid, right ovarian cyst, notorsion, thickened endometrium 2. 06/11/23. [facility]. After ED encounter. Previously scheduled appointment. Trichomonas. [...] taking these medications which have NOT CHANGED CZULGQYCEU-CWNCTVXVFFEZE-IFKJ 50-325-40 MG TABLET Take 1 tablet by [...] signed by: Michelle Terry MD 06/18/23112 T [facility] - [id number] 04:46:51 Pt given printed and verbal discharge [...] no apparent distress, accompanied by her . [facility]geax6311-96-24 23:09:00 Patient states: "I've been having suprapubic pain for about a week now, worst was since . 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 I took Midol an hour ago for my painbut no relief." [facility]enny Blevins [facility]pkbtn5547-26-54 23:06:00 [facility] ED Transfer of Care Note. Off-going Physician:ANGELES [...] components within normal limits COMP. METABOLIC PANEL (19596) - Abnormal; Notable for the following components: [...] Severe endometrial thickening measuring 2.5 cm. AFC: 70866 RL: 460 End of report. Additional Notes: Diagnosis/Impression as of 06/12/23 0432 Pelvic pain Right ovarian cyst Intramural leiomyoma of uterus - (Uterine Fibroid) Endometrial hyperplasia Chronic anemia Medical Decision Making Mini Zhu is a 32 year old female whopresents to the ED with pelvic pain Problems Addressed: Chronic anemia: chronic illness or injury Endometrial hyperplasia: chronic illness or injury Details: Will need CHEMISTRY ACCOUNT MANAGER follow-up Pt appropriately referred to [facility] Intramural leiomyoma of uterus: chronic illness or injury Details: Will need CHEMISTRY ACCOUNT MANAGER follow-up Right ovarian cyst: chronic illness or [...] Aysha Chandra MD Specialty: OG-OBSTETRICS & GYNECOLOGY [facility] [address] [place] [address] [facility] [address] Selene Parra MD 06/12/23 0432 [facility]2023-08-14 04:02:21 Pt given printed and verbal discharge [...] with steady gait, in no apparent distress. [facility]2023-08-14 01:27:07 Pt vomited approx 200ml of water and bile. No blood noted. [facility]2023-08-14 00:35:04 Pt arrived ambulatory with complaints of one episode of vomiting blood. Pt reports she became nauseated and at first threw up bile but then threw up dark red blood. Pt denies dark stools or excessiveNSAID use. Pt has been having intermittent abdominal pain for a week. Hx: Migraines, Bipolar, Anemia Cora Peraza [facility]
[2024-08-04 20:10] LABS: SARS-CoV-2 Antigen CONTROL BLUE LINE VIS/BG OK; SARS-CoV-2 Antigen Rapid Res Negative (Negative)
--- NOTE | 2024-08-04 20:43 | ER ---
Nurse's Notes [facility] Tori Name: Judith Tobar Age: 33 yrs Sex: Female : 1990 Arrival Date: 08/04/2024 Time: 18:52 Bed IW2 Private MD: Diagnosis: Acute upper respiratory infection, unspecified Presentation: 08/04 19:24 Chief complaint: Patient states: Cough, congestion, low grade fever, and sore throat cm10 onset . Coronavirus screen: Client denies travel out of the [place] in the last 14 days. Ebola Screen: Patient denies travel to an Ebola-affected area in the 21 days before illness onset. No symptoms or risks identified at this time. Initial Sepsis Screen: Does the patient meet any 2 criteria? HR > 90 bpm. Does the patient have a suspected source of infection? No. Patient's initial sepsis screen is negative. Risk Assessment: Do you want to hurt yourself or someone else? Patient reports no desire to harm self or others. Onset of symptoms was July 31, 2024. 19:24 Method Of Arrival: Ambulatory cm10 19:24 Acuity: SHABBIR 3 cm10 Triage Assessment: 19:26 General: Appears in no apparent distress. comfortable, Behavior is calm, cooperative. cm10 Neuro: No deficits noted. Level of Consciousness is awake, alert, obeys commands, Oriented to person, place, time, situation, Appropriate for age. Respiratory: No deficits noted. Airway is patent Respiratory effort is even, unlabored, Respiratory pattern is regular, symmetrical. 19:26 EENT: Reports nasal congestion pain when swallowing. cm10 20:51 Pain: Complains of pain in Throat. 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 - Infectious Disease History:: Denies. - Social history:: Smoking status: Reported history of juuling and/or vaping. Screenin:51 [facility] ED Fall Risk Assessment (Adult) History of falling in the last 3 months, cm10 including since admission No falls in past 3 months (0 pts) Confusion or Disorientation No (0 pts) Intoxicated or Sedated No (0 pts) Impaired Gait No (0 pts) Mobility Assist Device Used No (0 pt) Altered Elimination No (0 pt) Score/Fall Risk Level 0 - 2 = Low Risk Oriented to surroundings, Maintained a safe environment, Hourly rounding (assess needs \T\ fall precautionary measures) done. Abuse screen: Denies threats or abuse. Denies injuries from another. Nutritional screening: No deficits noted. Tuberculosis screening: No symptoms or risk factors identified. Vital Signs: 19:24 BP 120 / 87; Pulse 122; Resp 18; Temp 98.7(O); Pulse Ox 97% on R/A; Weight 86.18 kg; cm10 Height 5 ft. 2 in. ; Pain 9/10; 19:24 Body Mass Index 34.75 (86.18 kg, 157.48 cm) cm10 19:24 Pain Scale: Adult cm10 ED Course: 18:55 Patient arrived in ED. mg5 19:14 Stacy Bass F[facility]-C [facility] kb 19:14 Jarred Power MD is Attending Physician. kb 19:26 Triage completed. cm10 19:26 Arm band placed on Patient placed in waiting room. cm10 19:31 SARS RAPID Sent. cm10 19:31 Flu Sent. cm10 19:31 Strep Sent. cm10 19:31 COVID swab sent to lab. Flu and/or RSV swab sent to lab. Strep swab sent to lab. cm10 20:51 Patient has correct armband on for positive identification. Provided Education on: cm10 Follow-up instructions. Cardiac monitoring not applicable on this patient. 20:51 No provider procedures requiring assistance completed. Patient did not have IV access cm10 during this emergency room visit. Administered Medications: No medications were administered Medication: 20:51 VIS not applicable for this client. cm10 Outcome: 20:43 Discharge ordered by . angela 20:51 Discharged to home ambulatory, cm10 20:51 Condition: good 20:51 Discharge instructions given to patient, Instructed on discharge instructions, follow up and referral plans. Demonstrated understanding of instructions, follow-up care, 20:52 Patient left the ED. cm10 Signatures: Stacy Bass FNP-C FNP-Ckb Martinez, Clarissa, RN RN cm10 Keke Magaña mg5 Corrections: (The following items were deleted from the chart) 20:52 19:26 Neuro: No deficits noted. Level of Consciousness is awake, alert, obeys commands, cm10 Oriented to person, place, time, situation, Appropriate for age cm10
--- NOTE | 2024-08-04 20:43 | EDPHYS ---
Physician Documentation [facility] Name: Judith Tobar Age: 33 yrs Sex: Female : 1990 Arrival Date: 08/04/2024 Time: 18:52 Bed IW2 Private MD: ED Physician Jarred Power HPI: 08/04 20:41 This 33 yrs old Female presents to ER via Ambulatory with complaints of Flu Symptoms. kb 20:41 Patient is a 33-year-old female who presents for cough, congestion, low-grade fever and kb sore throat that started 5 days ago. States temp max 100.4. . 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 - Infectious Disease History:: Denies. - Social history:: Smoking status: Reported history of juuling and/or vaping. ROS: 20:41 Constitutional: As per HPI kb Exam: 20:41 Constitutional: This is a well developed, well nourished patient who is awake, alert, kb and in no acute distress. Head/Face: Normocephalic, atraumatic. ENT: Moist Mucous membranes Respiratory: Respirations even and unlabored. No increased work of breathing. Talking in full sentences Abdomen/GI: Soft, non-tender. No distention Skin: Warm, dry with normal turgor. Normal color. MS/ Extremity: Pulses equal, no cyanosis. Neurovascular intact. Full, normal range of motion. Neuro: Awake and alert, GCS 15, oriented to person, place, time, and situation. 20:42 Cardiovascular: Rate: tachycardic, kb Vital Signs: 19:24 BP 120 / 87; Pulse 122; Resp 18; Temp 98.7(O); Pulse Ox 97% on R/A; Weight 86.18 kg; cm10 Height 5 ft. 2 in. ; Pain 9/10; 19:24 Body Mass Index 34.75 (86.18 kg, 157.48 cm) cm10 19:24 Pain Scale: Adult cm10 MDM: 19:14 Medical Screening Exam initiated kb 20:42 Differential diagnosis: flu, covid, strep, uri. Data reviewed: vital signs, nurses kb notes. I considered the following discharge prescriptions or medication management in the emergency department Antibiotics: At this time antibiotics are not recommended. Test considered but Not performed: X-ray: chest xray considered but lungs clear bilaterally, resp even and unlabored. Counseling: I had a detailed discussion with the patient and/or guardian regarding the historical points, exam findings, and any diagnostic results supporting the discharge/admit diagnosis, lab results, the need for outpatient follow up, a family practitioner, to return to the emergency department if symptoms worsen or persist or if there are any questions or concerns that arise at home. 08/04 19:28 Order name: Strep; Complete Time: 20:13 cm10 08/04 19:28 Order name: Flu; Complete Time: 20:19 cm10 08/04 19:28 Order name: SARS RAPID; Complete Time: 20:14 cm10 08/04 20:04 Order name: Throat Culture EDMS Administered Medications: No medications were administered Disposition Summary: 08/04/24 20:43 Discharge Ordered Notes: Location: Home kb Condition: Stable kb Diagnosis - Acute upper respiratory infection, unspecified kb Followup: kb - With: Emergency Department - When: As needed - Reason: Worsening of condition Followup: kb - With: Private Physician - When: 2 - 3 days - Reason: Recheck today's complaints, Continuance of care, Re-evaluation by your physician Discharge Instructions: - Discharge Summary Sheet kb - Upper Respiratory Infection, Adult, Zgpn-qo-Wydj kb - Viral Respiratory Infection, Jqhj-Sp-Liqm kb Forms: - Medication Reconciliation Form kb - Antibiotic Education kb - Prescription Opioid Use kb - Patient Portal Instructions kb - Leadership Thank You Letter kb Signatures: Dispatcher [employer] EDMS Stacy Bass, BILINGUAL CASE MANAGER-C MAGDY-Elo Mijares, RN RN cm10 Corrections: (The following items were deleted from the chart) 20:42 20:41 Constitutional: This is a well developed, well nourished patient who is awake, kb alert, and in no acute distress. Head/Face: Normocephalic, atraumatic. ENT: Moist Mucous membranes Cardiovascular: Regular rate Respiratory: Respirations even and unlabored. No increased work of breathing. Talking in full sentences Abdomen/GI: Soft, non-tender. No distention Skin: Warm, dry with normal turgor. Normal color. MS/ Extremity: Pulses equal, no cyanosis. Neurovascular intact. Full, normal range of motion. Neuro: Awake and alert, GCS 15, oriented to person, place, time, and situation. kb
[2024-08-05 02:27] VITALS: BP 120/87; TEMP 98.7; O2SAT 97
== END 2024-08-04 20:52 | disposition home or self-care (01) ==
LOC: ER 18:52
DX: J06.9 Acute upper respiratory infection, unspecified (principal); Z11.52 Encounter for screening for COVID-19
CPT/HCPCS: 36415; 87070; 87081; 87804; 87811; 99283

== ENCOUNTER 2024-09-03 22:51 | Emergency (ER) | payer SELFPAY ==
--- OUTSIDE RECORDS SUMMARY | 2024-09-03 22:57 | XMS REPORT | Continuity of Care Document ---
Author Name Unknown Address [address] [facility] [address] [place] [address] [facility] thconnect Address [address] [facility] [address] [place] [address] Care Team Providers Care Millwright Name Role Phone Roxanna Peres Primary Care Physician DONI MARIE Attending Clinician Unavailable DONI MARIE Attending Clinician Unavailable Doni Marie MD Attending Clinician [phone] SELENE PARRA Attending Clinician Unavailable SELENE PARRA Attending Clinician Unavailable Selene Parra MD Attending Clinician [phone] CHAYO SRIVASTAVA Attending Clinician UnavailChayo Mueller DO Attending Clinician [phone] Kavita OJEAD Attending Clinician Unavailable Kavita Young Attending Clinician [phone] CHRISTY RG Attending Clinician Unavailable Danie Delarosa Attending Clinician [phone] Christy Rg NP Attending Clinician [phone] MEMO RESENDIZ Attending Clinician Unavailable Memo Resendiz MD Attending Clinician [phone] DANII ARRIAGA Attending Clinician Unavailable Rose Hoff MD Attending Clinician [phone] Danii Ferrer Attending Clinician [phone] MICHELLE TERRY Attending Clinician UnavailMichelle Evans MD Attending Clinician + [phone] RAVEN LIEBERMAN Attending Clinician Unavailable Raven Gutiérrez S Attending Clinician [phone] Doctor Unassigned, [place] Attending Clinician U orlandoHERMILO Corona Attending Clinician Unavailable Hermilo Ricks DO Attending Clinician [phone] SURAJ SCOTT Attending Clinician UnavailSuraj Kee MD Attending Clinician + [phone] CAT RUTLEDGE Attending Clinician Unavailable LISA TRAN Attending Clinician Unavailable Lisa Cruz Attending Clinician [phone] CL GATES Attending Clinician Unavailable ROCHELLE GOLD Attending Clinician Unavailable DONI MARIE Admitting [...] Effective Date Expirati on Date Source [facility] [id number] 2023 00:00:00 MEDICAID SSI PENDING PENDING 2024 00:00:00 Problems Condition Name Condition Details Condition Category Status Onset Date Resolution Date Last Treatment Date Treating Clinician Comments Source Lower abdominal pain Lower abdominal pain Disease Active 1-10 00:00: 00 [facility] Ureterolit hiasis Ureterolit hiasis Disease Active 8-05 00:00: 00 [facility] No known active problems No known active problems Disease [facility] Allergies, Adverse Reactions, Alerts Allergy Name Allergy Type Status Severity Reaction(s) Onset Date Inactive Date Treating Clinician Comments Source GABAPENT IN DRUG INGREDI Active Other-Cmnt 2022-10 00:00: 00 [facility] Gabapent in Propensi ty to adverse reaction s Active Other - See comments 2022-10 00:00: 00 Manic episodes [facility] NO KNOWN ALLERGIE S Drug Class Active [facility] Social History Social Habit Start Date Stop Date Quantity Comments Source Gender identity [facility] to SARS-CoV-2 (event) 2023-02-24 00:00:00 2023-03-06 22:59:00 Not sure [facility] Sex assigned at 1990 00:00:00 1990 00:00:00 [facility] Smoking Status Start Date Stop Date Source Tobacco smoking consumption unknown [facility] Medications Ordered Medication Name Filled Medication Name Start Date Stop Date Current Medication? Ordering Clinician Indication Dosage Frequency Signature (SIG) Comments Components Source metoclopram farzana HCl (REGLAN) injection 10 mg 2023-10 13:15: 00 07-25 13:23 :00 No 10mg 10 mg, Slow IV Push, ONCE, 1 dose, On Sun07/25/24 at 0815, NICOLASA [facility] pantoprazol e 40 mg EC tablet 2023-10 00:00: 00 Yes [id number] 40mg Take 1 tablet by mouth in the morning. [facility] metoclopram farzana HCl 10 mg tablet 2023-10 00:00: 00 Yes [id number] 10mg Take 1 tablet by mouth every 6 (six) hours. [facility] iopamidol (ISOVUE 370-500 mL) injection 85 mL 07-04 09:45: 00 07-04 09:45 :00 No [id number] 85mL 85 mL, Intravenou s, ONCE, 1 dose, On Sun07/04/24 at 0445, Routine [facility] ketorolac (TORADOL) injection 30 mg 07-04 09:15: 00 07-04 08:27 :00 No 30mg 30 mg, Slow IV Push, ONCE, 1 dose, On Sun07/04/24 at 0415, Routine [facility] Lidocaine Viscous 2 % mucosal solution 03-18 00:00: 00 Yes % [facility] Wagg[facility] Carafate 100 mg/mL oral suspension 03-18 00:00: 00 Yes mg/mL Darryl Waggoner 16.2 mg-0.1037 mg-0.0194 mg/5 mL oral elixir 03-18 00:00: 00 Yes -0.0194 mg/5 mL [facility]ryl Waggoner butalbital- acetaminoph en-caff (ESGIC) 50-325-40 mg tablet 1 tablet 03-12 10:45: 00 03-12 10:51 :00 No 1{tbl} 1 tablet, Oral, ONCE, 1 dose, On Sun03/12/24 at 0545, NICOLASA [facility] metoclopram farzana HCl (REGLAN) injection 10 mg 03-12 10:45: 00 03-12 10:52 :00 No 10mg 10 mg, Slow IV Push, ONCE, 1 dose, [facility]12[facility] ([facility]UE 370-500 mL) injection 100 mL 03-12 10:15: 00 03-12 10:15 :00 No [id number] 100mL 100 mL, Intravenou s, ONCE, 1 dose, On Sun03/12/24 at 0515, Routine [facility] ketorolac (TORADOL) injection 30 mg 03-12 10:00: 00 03-12 09:01 :00 No 30mg 30 mg, Slow IV Push, ONCE, 1 dose, On Sun03/12/24 at 0500, Routine [facility] NaCl 0.9% (NS) IV infusion 1,000 mL 03-12 09:45: 00 03-12 10:39 :00 No 1000mL at 999 mL/hr, Intravenou s, ONCE, 1 dose, On Sun03/12/24 at 0445, Routine [facility] ondansetron (ZOFRAN (PF)) injection 4 mg 03-12 09:00: 00 03-12 09:01 :00 No 4mg 4 mg, Slow IV Push, ONCE, 1 dose, On Sun03/12/24 at 0400, NICOLASA [facility] butalbital- acetaminoph en-caff 50-325-40 mg tablet 03-12 00:00: 00 Yes [id number] 1{tbl} Take 1 tablet by mouth every 6 (six) hours as needed (Headache) . [facility] dicyclomine 20 mg tablet 03-12 00:00: 00 Yes [id number] 20mg Take 1 tablet by mouth every 6 (six) hours as needed for Abdominal pain. [facility] metoclopram farzana HCl 10 mg tablet 03-12 00:00: 00 07-25 00:00 :00 No [id number] 10mg Take 1 tablet by mouth every 6 (six) hours. [facility] ondansetron HCl 4 mg tablet 03-06 00:00: 00 Yes 1mg [facility] Waggoner iopamidol (ISOVUE 370-500 mL) injection 85 mL 02-02 11:00: 00 02-02 11:00 :00 No [id number] 85mL 85 mL, Intravenou s, ONCE, 1 dose, On Sun02/03/24 at 0600, Routine [facility] FENTanyl PF (SUBLIMAZE (PF)) injection 50 mcg 02-02 10:30: 00 02-02 09:52 :00 No 50ug 50 mcg, Slow IV Push, ONCE, 1 dose, On Sun02/03/24 at 0530, Routine [facility] metoclopram farzana HCl (REGLAN) injection 10 mg 02-02 09:30: 00 02-02 09:52 :00 No 10mg 10 mg, Slow IV Push, ONCE, 1 dose, On Sun02/03/24 at 0430, NICOLASA [facility] pantoprazol e (PROTONIX) injection 40 mg 02-02 09:30: 00 02-02 09:53 :00 No 40mg 40 mg, Slow IV Push, ONCE, 1 dose, On Sun02/03/24 at 0430 [facility] dicyclomine 20 mg tablet 02-02 00:00: 00 Yes [id number] 20mg Take 1 tablet by mouth every 6 (six) hours as needed for Abdominal pain. [facility] metoclopram farzana HCl 10 mg tablet 02-02 00:00: 00 07-25 00:00 :00 No [id number] 10mg Take 1 tablet by mouth every 6 (six) hours. [facility] pantoprazol e (PROTONIX) 40 mg EC tablet 02-02 00:00: 00 07-25 00:00 :00 No [id number] 40mg Take 1 tablet by mouth in the morning. [facility] loratadine (CLARITIN) tablet 10 mg 01-01 06:30: 00 01-01 18:29 :00 No 10mg 10 mg, Oral, ONCE, 1 dose, On Sun01/02/24 at 0130, NICOLASA [facility] azithromyci n (ZITHROMAX) tablet 500 mg 01-01 05:45: 00 01-01 05:39 :00 No 500mg 500 mg, Oral, ONCE, 1 dose, On Sun01/02/24 at 0045, NICOLASA
Re ason for Anti-Infec tive: Documented Infection< br>Documen zoila Infection Site: HEENT
D uration of Therapy: Once (ED) [facility] azithromyci n (ZITHROMAX Z-RAMESH) 250 mg tablet 01-01 00:00: 00 Yes [id number] 500mg Take 2 tablets by mouth SEE-INSTRU CTIONS. Take 500 mg day 1, then 250 mg days 2 to 5. [facility] loratadine- pseudoephed rine (CLARITIN-D 24 HOUR) 10-240 mg per 24 hr tablet 01-01 00:00: 00 Yes [id number] 1{tbl} Take 1 tablet by mouth in the morning. [facility] dextrometho rphan-guaif enesin 10-100 mg/5 mL solution 01-01 00:00: 00 Yes [id number] 10mL Take 10 mL by mouth every 6 (six) hours as needed for Cough. [facility] butalbital- acetaminoph en-caff (ESGIC) 50-325-40 mg tablet 1 tablet 12-25 09:15: 00 12-25 09:09 :00 No 1{tbl} 1 tablet, Oral, ONCE, 1 dose, On Sun12/26/23 at 0415, NICOLASA [facility] butalbital- acetaminoph en-caff 50-325-40 mg tablet 12-25 00:00: 00 Yes [id number] 1{tbl} Take 1 tablet by mouth every 6 (six) hours as needed (Headache) . [facility] ketorolac (TORADOL) injection 30 mg 11-20 17:15: 00 11-20 16:28 :00 No 30mg 30 mg, Slow IV Push, ONCE, 1 dose, On Sun11/20/23 at 1115, NICOLASA [facility] iopamidol (ISOVUE 370-500 mL) injection 80 mL 11-20 14:30: 00 11-20 14:45 :00 No [id number] 80mL 80 mL, Intravenou s, ONCE, 1 dose, On Sun11/20/23 at 0845, Routine [facility] NaCl 0.9% (NS) bolus infusion 1,000 mL 11-20 14:15: 00 11-20 16:26 :00 No 1000mL at 999 mL/hr, 1,000 mL, IV Infusion, ONCE, 1 dose, On Sun11/20/23 at 0815, STAT [facility] cephALEXin (KEFLEX) 500 mg capsule 11-20 00:00: 00 Yes [id number] 500mg Take 1 capsule by mouth in the morning and 1 capsule at noon and 1 capsule in the evening. [facility] ondansetron 4 mg disintegrat ing tablet 11-20 00:00: 00 Yes [id number] 4mg Take 1 tablet by mouth every 4 (four) hours as needed for Nausea and Vomiting (N/V). [facility] naproxen 500 mg tablet 11-20 00:00: 00 12-01 05:59 :00 No [id number] 500mg Take 1 tablet by mouth in the morning and 1 tablet in the evening. Take with meals. Do all this for 10 days. [facility] maalox:diph enhydrAMINE :lidocaine 2 % viscous 1:1:1 ([facility]) oral suspension 15 mL 11-12 07:00: 00 11-12 06:55 :00 No 15mL 15 mL, Oral, ONCE, 1 dose, On Sun11/12/23 at 0100, Routine [facility] ondansetron (ZOFRAN-ODT ) disintegrat ing tablet 4 mg 11-12 07:00: 00 11-12 06:16 :00 No 4mg 4 mg, Oral, ONCE, 1 dose, On Sun11/12/23 at 0100, Routine [facility] benzonatate 200 mg capsule 10-27 00:00: 00 Yes [id number] 200mg Take 1 capsule by mouth 3 (three) times daily as needed for Cough for up to 20 doses. [facility] ibuprofen 600 mg tablet 10-27 00:00: 00 Yes [id number] 600mg Take 1 tablet by mouth every 6 (six) hours as needed for Pain (scale 4-6). [facility] ondansetron 4 mg disintegrat ing tablet 10-27 00:00: 00 11-20 00:00 :00 No [id number] 4mg Take 1 tablet by mouth every 8 (eight) hours as needed for Nausea and Vomiting (N/V). [facility] lactulose (CEPHULAC) solution 30 mL 2022-10 01:45: 00 09-09 02:36 :00 No 30mL 30 mL, Oral, ONCE, 1 dose, On 09/08/23 at 1945, NICOLASA [facility] dexamethaso ne (DECADRON PHOSPHATE) injection 10 mg 2022-10 01:30: 00 09-09 02:40 :00 No 10mg 10 mg, Oral, ONCE, 1 dose, On 09/08/23 at 1930, Routine [facility] ketorolac (TORADOL) injection 30 mg 2022-10 01:30: 00 09-09 02:40 :00 No 30mg 30 mg, Intramuscu lar, ONCE, 1 dose, On 09/08/23 at 1930, Routine [facility] ketorolac 10 mg tablet 2022-10 00:00: 00 11-12 00:00 :00 No [id number] 10mg Take 1 tablet by mouth every 6 (six) hours as needed for Pain (scale 7-10). [facility] glycerin/mi neral oil, AGLO ENEMA, Enem 2022-10 00:00: 00 11-12 00:00 :00 No [id number] 225mL Insert 225 mL into rectum as needed for Constipati on. [facility] cefdinir 300 mg capsule 2022-10 00:00: 00 09-16 05:59 :00 No [id number] 300mg Take 1 capsule by mouth every 12 (twelve) hours for 7 days. [facility] lactulose 10 gram/15 mL solution 2022-10 00:00: 00 09-14 05:59 :00 No [id number] 15mL Take 15 mL by mouth in the morning for 5 days. [facility] HYDROcodone -acetaminop hen (NORCO 5) 5-325 mg tablet 1 tablet 2022-10 13:15: 00 09-07 13:33 :00 No 1{tbl} 1 tablet, Oral, ONCE, 1 dose, On Sun09/07/23 at 0715, [facility] diazePAM (VALIUM) tablet 5 mg 2022-10 13:15: 00 09-07 13:33 :00 No 5mg 5 mg, Oral, ONCE, 1 dose, On Sun09/07/23 at 0715, [facility] dexamethaso ne sod phos PF injection 10 mg 2022-10 13:15: 00 09-07 13:33 :00 No 10mg 10 mg, Oral, ONCE, 1 dose, On Sun09/07/23 at 0715, 1 mL [facility] methocarbam oL 750 mg tablet 2022-10 00:00: 00 11-12 00:00 :00 No [id number] 750mg Take 1 tablet by mouth every 6 (six) hours as needed for Pain (scale 1-3). [facility] ondansetron (ZOFRAN (PF)) injection 4 mg 2022-10 02:00: 00 09-04 02:30 :00 No 4mg 4 mg, Slow IV Push, ONCE, 1 dose, On Sun09/03/23 at 1999, [facility] meclizine (TRAVEL-EAS E (MECLIZINE) ) tablet 50 mg 2022-10 02:00: 00 09-04 02:30 :00 No 50mg 50 mg, Oral, ONCE, 1 dose, On Sun09/03/23 at 1999, [facility] ondansetron (ZOFRAN) 4 mg tablet 2022-10 00:00: 00 Yes [id number] 4mg Take 1 tablet by mouth every 8 (eight) hours as needed for Nausea and Vomiting (N/V). [facility] meclizine 25 mg tablet 2022-10 00:00: 00 11-12 00:00 :00 No [id number] 25mg Take 1 tablet by mouth every 6 (six) hours. [facility] ondansetron (ZOFRAN-ODT ) disintegrat ing tablet 4 mg 2022-10 08:30: 00 07-26 07:45 :00 No 4mg 4 mg, Oral, ONCE, 1 dose, On Ashley 07/26/23 at 0330, Routine [facility] proMETHazin e 25 mg tablet 2022-10 00:00: 00 09-03 00:00 :00 No [id number] 12.5mg Take 0.5 tablets by mouth every 6 (six) hours as needed for Nausea and Vomiting (N/V). [facility] loratadine 10 mg tablet 2022-10 00:00: 00 Yes [id number] 10mg Take 1 tablet by mouth at bedtime as needed for Allergies or Runny nose. [facility] albuterol 90 mcg/actuati on inhaler 2022-10 00:00: 00 Yes [id number] 2{puff} Inhale 2 Puffs every 4 (four) hours as needed for Wheezing or Shortness of Breath. [facility] benzonatate 200 mg capsule 2022-10 00:00: 00 11-12 00:00 :00 No [id number] 200mg Take 1 capsule by mouth 3 (three) times daily as needed for Cough. [facility] fluticasone propionate 50 mcg/actuati on nasal spray 2022-10 00:00: 00 11-12 00:00 :00 No [id number] 2{spray } Use 2 Sprays in each nostril in the morning. [facility] predniSONE 20 mg tablet 2022-10 00:00: 00 07-31 04:59 :00 No [id number] 40mg Take 2 tablets by mouth in the morning for 5 days. [facility] TAKE 1 TABLET DAILY. 2022-10 00:00: 00 01-30 00:00 :00 No 10 [facility] Waggoner ibuprofen 800 mg tablet 07-12 00:00: 00 11-12 00:00 :00 No [id number] 800mg Take 1 tablet by mouth every 8 (eight) hours. [facility] methylPREDN ISolone sodium succinate (SOLU-MEDRO L) injection 125 mg 06-24 17:00: 00 06-24 11:35 :44 No 125mg 125 mg, Intramuscu lar, Q6H, First dose on Sun06/24/23 at 1200, Until Discontinu ed, Routine [facility] gabapentin 300 mg capsule 06-24 00:00: 00 11-12 00:00 :00 No [id number] 300mg Take 1 capsule by mouth in the morning and 1 capsule at noon and 1 capsule in the evening. [facility] codeine-gua ifenesin (ROBITUSSIN AC) 10-100 mg/5 mL oral solution 10 mL 06-18 06:15: 00 06-18 06:23 :00 No 10mL 10 mL, Oral, ONCE, 1 dose, On Sun06/18/23 at 0115, NICOLASA [facility] azithromyci n (ZITHROMAX) tablet 500 mg 06-18 06:15: 06-18 06:24 :00 No 500mg 500 mg, Oral, ONCE, 1 dose, On Sun06/18/23 at 0115, NICOLASA
Re ason for Anti-Infec tive: Documented Infection< br>Documen zoila Infection Site: Respirator y
Durat ion of Therapy: 7 days [facility] benzonatate 200 mg capsule 06-18 00:00: 00 11-12 00:00 :00 No [id number] 200mg Take 1 capsule by mouth 3 (three) times daily as needed for Cough. [facility] azithromyci n 250 mg tablet 06-18 00:00: 00 09-03 00:00 :00 No [id number] 250mg Take 1 tablet by mouth SEE-INSTRU CTIONS. Take 500 mg day 1, then 250 mg days 2 to 5. [facility] ondansetron 4 mg tablet 06-18 00:00: 00 09-03 00:00 :00 No [id number] 1 or 2 tablets every 8 hours as needed for nausea [facility] TAKE 1 TABLET BY MOUTH TWICE A DAY 06-14 00:00: 00 01-30 00:00 :00 No 500 Darryl Waggoner metroNIDAZO LE (FLAGYL) tablet 500 mg 06-12 08:45: 00 06-12 08:32 :00 No 500mg 500 mg, Oral, ONCE, 1 dose, On Sun06/12/23 at 0345, Routine
Reason for Anti-Infec tive: Empiric Therapy for Suspected Infection< br>Empiric Therapy Site: Pelvic
Duration of therapy: 72 hours [facility] doxycycline hyclate (Vibramycin ) capsule 100 mg 06-12 07:45: 00 06-12 08:32 :00 No 100mg 100 mg, Oral, ONCE, 1 dose, On Sun06/12/23 at 0245, NICOLASA
Re ason for Anti-Infec tive: Documented Infection< br>Documen zoila Infection Site: Pelvic
Duration of Therapy: 14 days [facility] morpHINE (4 mg/mL) injection 4 mg 06-12 07:45: 00 06-12 08:32 :00 No 4mg 4 mg, Slow IV Push, ONCE, 1 dose, On Sun06/12/23 at 0245, STAT [facility] ketorolac (TORADOL) injection 30 mg 06-12 06:15: 00 06-12 05:10 :00 No 30mg 30 mg, Slow IV Push, ONCE, 1 dose, On Sun06/12/23 at 0115, NICOLASA [facility] NaCl 0.9% (NS) bolus infusion 1,000 mL 06-12 06:15: 00 06-12 06:56 :00 No 1000mL at 999 mL/hr, 1,000 mL, IV Infusion, ONCE, 1 dose, On Sun06/12/23 at 0115, STAT [facility] cefTRIAXone (ROCEPHIN) 1,000 mg in NaCl 0.9% (NS) 100 mL MINI-BAG 06-12 05:15: 00 06-12 06:56 :00 No 1000mg 1,000 mg, IV Piggyback, ONCE, 1 dose, On Sun06/12/23 at 0015, Administer over 30 Minutes, 100 mL
Reas on for Anti-Infec tive: Empiric Therapy for Suspected Infection< br>Empiric Therapy Site: Pelvic
Duration of therapy: 72 hours [facility] ondansetron (ZOFRAN (PF)) injection 4 mg 06-12 05:15: 00 06-12 05:10 :00 No 4mg 4 mg, Slow IV Push, ONCE, 1 dose, On Sun06/12/23 at 0015, NICOLASA [facility] ibuprofen 800 mg tablet 06-12 00:00: 00 07-12 00:00 :00 No [id number] 800mg Take 1 tablet by mouth every 8 (eight) hours as needed for Pain (scale 4-6). [facility] TAKE 1 TABLET TWICE DAILY. 05-31 00:00: 00 01-30 00:00 :00 No 100 Dar[facility] Waggoner iopamidol (ISOVUE 370-500 mL) injection 85 mL 05-28 08:30: 00 05-28 08:30 :00 No [id number] 85mL 85 mL, Intravenou s, ONCE, 1 dose, On Sun05/28/23 at 0330, Routine [facility] NaCl 0.9% (NS) bolus infusion 1,000 mL 05-28 08:15: 00 05-28 08:52 :00 No 1000mL at 999 mL/hr, 1,000 mL, IV Infusion, ONCE, 1 dose, On Sun05/28/23 at 0315, STAT [facility] pantoprazol e (PROTONIX) 80 mg in NaCl 0.9% (NS) 20 mL syringe 05-28 08:00: 00 05-28 08:02 :00 No 80mg 80 mg, IV Push, ONCE, 1 dose, On Sun05/28/23 at 0300, Administer over 2 Minutes, 20 mL [facility] ondansetron (ZOFRAN (PF)) injection 4 mg 05-28 06:45: 00 05-28 06:36 :00 No 4mg 4 mg, Slow IV Push, ONCE, 1 dose, On Sun05/28/23 at 0145, NICOLASA [facility] ondansetron 4 mg disintegrat ing tablet 05-28 00:00: 00 09-03 00:00 :00 No [id number] 4mg Take 1 tablet by mouth every 8 (eight) hours as needed for Nausea and Vomiting (N/V). [facility] esomeprazol e (NEXIUM) 40 mg capsule 05-28 00:00: 00 06-12 04:59 :00 No [id number] 40mg Take 1 capsule by mouth daily with breakfast for 14 days. [facility] INSTILL 4 DROPS IN THE AFFECTED EAR(S) TWICE DAILY 7-10 00:00: 00 01-30 00:00 :00 No 301 Dar[facility] Waggoner dexamethaso ne (DECADRON PHOSPHATE) injection 10 mg 03-07 05:00: 00 03-07 03:56 :00 No 10mg 10 mg, Oral, ONCE, 1 dose, On Sun03/07/23 at 0000, Routine [facility] levocetiriz ine 5 mg tablet 03-06 00:00: 00 09-03 00:00 :00 No [id number] 5mg Take 1 tablet by mouth every evening. [facility] butorphanol (STADOL) injection 1 mg 02-02 08:00: 00 02-02 07:18 :00 No 1mg 1 mg, IV Push, ONCE, 1 dose, On Sun02/02/23 at 0300, NICOLASA [facility] ketorolac (TORADOL) injection 30 mg 02-02 07:45: 00 02-02 06:42 :00 No 30mg 30 mg, Slow IV Push, ONCE, 1 dose, On Sun02/02/23 at 0245, Routine [facility] metoclopram farzana HCl (REGLAN) injection 10 mg 02-02 06:45: 00 02-02 06:41 :00 No 10mg 10 mg, Slow IV Push, ONCE, 1 dose, On Sun02/02/23 at 0145, NICOLASA [facility] diphenhydrA MINE (BENADRYL) injection 25 mg 02-02 06:45: 00 02-02 06:43 :00 No 25mg 25 mg, Slow IV Push, ONCE, 1 dose, On Sun02/02/23 at 0145, STAT [facility] butalbital- acetaminoph en-caff 50-325-40 mg tablet 02-02 00:00: 00 11-12 00:00 :00 No [id number] 1{tbl} Take 1 tablet by mouth every 4 (four) hours as needed for Pain (scale 7-10). [facility] ondansetron (ZOFRAN) 4 mg tablet 02-02 00:00: 00 05-28 00:00 :00 No [id number] 4mg Take 1 tablet by mouth every 8 (eight) hours as needed for Nausea and Vomiting (N/V). [facility] iopamidol (ISOVUE 370-500 mL) injection 98 mL 10-24 21:00: 00 10-24 21:00 :00 No [id number] 98mL 98 mL, Intravenou s, ONCE, 1 dose, On Sun10/24/22 at 1500, Routine [facility] morpHINE (4 mg/mL) injection 4 mg 10 18:30: 00 10-24 19:03 :00 No 4mg 4 mg, Slow IV Push, ONCE, 1 dose, On Sun10/24/22 at 1230, STAT [facility] ondansetron (ZOFRAN (PF)) injection 4 mg 10 18:30: 00 10-24 19:01 :00 No 4mg 4 mg, Slow IV Push, ONCE, 1 dose, On Sun10/24/22 at 1230, NICOLASA [facility] NaCl 0.9% (NS) bolus infusion 1,000 mL 10-24 18:30: 00 10-24 21:40 :00 No 1000mL at 999 mL/hr, 1,000 mL, IV Infusion, ONCE, 1 dose, On Sun10/24/22 at 1230, STAT [facility] ondansetron 4 mg disintegrat ing tablet 10-24 00:00: 05-28 00:00 :00 No [id number] 4mg Take 1 tablet by mouth every 8 (eight) hours as needed for Nausea and Vomiting (N/V) for up to 10 doses. [facility] cephALEXin (KEFLEX) 500 mg capsule 10-24 00:00: 00 11-01 05:59 :00 No [id number] 500mg Take 1 capsule by mouth 4 (four) times daily for 7 days. [facility] ibuprofen 600 mg tablet 10-24 00:00: 00 10-30 05:59 :00 No [id number] 600mg Take 1 tablet by mouth every 8 (eight) hours as needed for Pain (scale 4-6) for up to 5 days. [facility] dicyclomine 20 mg tablet 10-24 00:00: 00 10-30 05:59 :00 No [id number] 20mg Take 1 tablet by mouth 3 (three) times daily as needed for Abdominal pain for up to 5 days. [facility] megestroL 40 mg tablet 2021-10 00:00: 00 11-12 00:00 :00 No [id number] 100 Take by mouth 2 tabs for first 7 days then 1 tablet by mouth daily for next 14 days. [facility] cephALEXin (KEFLEX) 500 mg capsule 2021-10 0 00:00: 00 07-29 04:59 :00 No [id number] 100 500mg Take 1 capsule by mouth in the morning and 1 capsule at noon and 1 capsule in the evening. Do all this for 7 days. [facility] iopamidol (ISOVUE 370-500 mL) injection 65 mL 05-19 21:30: 00 05-19 21:45 :00 No [id number] 65mL 65 mL, Intravenou s, ONCE, 1 dose, On Sun05/19/22 at 1645, Routine [facility] ondansetron (ZOFRAN (PF)) injection 4 mg 05-19 21:30: 00 05-19 20:51 :00 No 4mg 4 mg, Slow IV Push, ONCE, 1 dose, On Sun05/19/22 at 1630, NICOLASA [facility] ketorolac (TORADOL) injection 30 mg 05-19 21:30: 00 05-19 20:51 :00 No 30mg 30 mg, Slow IV Push, ONCE, 1 dose, On Sun05/19/22 at 1630, Routine [facility] NaCl 0.9% (NS) bolus infusion 1,000 mL 05-19 21:30: 00 05-19 22:08 :00 No 1000mL at 999 mL/hr, 1,000 mL, IV Infusion, ONCE, 1 dose, On Sun05/19/22 at 1630, NICOLASA [facility] tamsulosin 0.4 mg 24 hr capsule 05-19 00:00: 00 11-12 00:00 :00 No [id number] .4mg Take 1 capsule by mouth at bedtime. [facility] traMADoL 50 mg tablet 05-19 00:00: 00 05-27 04:59 :00 No [id number] 50mg Take 1 tablet by mouth every 6 (six) hours as needed for Pain (scale 4-6) for up to 7 days. Indication s: acute pain [facility] ketorolac (TORADOL) injection 30 mg 05-13 08:45: 00 05-13 07:40 :00 No 30mg 30 mg, Slow IV Push, ONCE, 1 dose, On Sun05/13/22 at 0345, Routine [facility] ketorolac 10 mg tablet 30 00:00: 00 11-12 00:00 :00 No [id number] 10mg Take 1 tablet by mouth every 6 (six) hours as needed for Pain (scale 7-10). [facility] butalbital- acetaminoph en-caff (ESGIC) 50-325-40 mg tablet 2 tablet 04-01 23:15: 00 04-01 22:22 :00 No 2{tbl} 2 tablet, Oral, ONCE NOW, 1 dose, On 04/01/22 at 1815, Routine [facility] ketorolac (TORADOL) injection 30 mg 04-01 23:15: 00 04-01 22:21 :00 No 30mg 30 mg, Intramuscu lar, ONCE, 1 dose, On 04/01/22 at 1815, NICOLASA [facility] No known medications 04-01 18:30: 37 No [facility] No known medications 10-25 13:51: 01 No [facility] cefdinir 300 mg capsule 10-25 00:00: 00 11-02 05:59 :00 No [id number] 300mg Take 1 capsule by mouth 2 (two) times daily for 7 days. [facility] Iron (ferrous sulfate) 325 mg (65 [...] 1mg Darryl Waggoner naproxen 500 mg tablet 0 - 00:00: 00 No 1mg naproxen 500 mg tablet 0 - 00:00: 00 No 1mg naproxen 500 mg tablet 0 - 00:00: 00 Yes 1mg Darryl Waggoner ibuprofen 800 mg tablet 2020-10 00:00: 00 No 1mg ibuprofen 800 mg tablet 2020-10 00:00: 00 No 1mg ibuprofen 800 mg tablet 2020-10 00:00: 00 Yes 1mg Darryl Waggoner No known medications 04-08 21:44: 39 No [facility] amitriptyli ne 25 mg tablet 03-03 00:00: 00 No 1mg amitriptyli ne 25 mg tablet 03-03 00:00: 00 No 1mg amitriptyli ne 25 mg tablet 03-03 00:00: 00 Yes 1mg Darryl Waggoner Dose Unknown 3-27 00:00: 00 No Dose Unknown 0 27 00:00: 00 No Dose Unknown 0 3-27 00:00: 00 Yes Darryl Waggoner Celexa 20 mg tablet 0 2-24 00:00: 00 No 1mg gabapentin 600 mg tablet 0 2-24 00:00: 00 No 1mg Dose Unknown 0 2-24 00:00: 00 No Celexa 20 mg tablet 2019-0 2-24 00:00: 00 No 1mg gabapentin 600 mg tablet 2019-0 2-24 00:00: 00 No 1mg Dose Unknown 2019-0 2-24 00:00: 00 No Celexa 20 mg tablet 2019-0 2-24 00:00: 00 Yes 1mg Darryl Waggoner gabapentin 600 mg tablet 2019-0 2-24 00:00: 00 Yes 1mg Darryl Waggoner Dose Unknown 0 2-24 00:00: 00 Yes Darryl Waggoner Vital Signs Vital Name Observation Time Observation Value Comments S abigail Systolic blood pressure 2024-07-25 14:30:00 124 mm[Hg] [facility] Diastolic blood pressure 2024-07-25 14:30:00 83 mm[Hg] [facility] Heart rate 2024-07-25 14:30:00 88 /min [facility] Respiratory rate 2024-07-25 14:30:00 14 /min [facility] Oxygen saturation in Arterial blood by Pulse oximetry 2024-07-25 14:30:00 99 /min [facility] Body temperature 2024-07-25 12:49:00 37.22 Jennifer [facility] Body height 2024-07-25 12:49:00 157.5 cm [facility] Body weight 2024-07-25 12:49:00 86.637 kg [facility] BMI 2024-07-25 12:49:00 34.93 kg/m2 [facility] Systolic blood pressure 2024-07-04 10:38:00 117 mm[Hg] [facility] Diastolic blood pressure 2024-07-04 10:38:00 79 mm[Hg] [facility] Heart rate 2024-07-04 10:38:00 82 /min [facility] Body temperature 2024-07-04 10:38:00 36.89 Jennifer [facility] Respiratory rate 2024-07-04 10:38:00 14 /min [facility] Oxygen saturation in Arterial blood by Pulse oximetry 2024-07-04 10:38:00 100 /min [facility] Body height 2024-07-04 07:28:00 157.5 cm [facility] Body weight 2024-07-04 07:28:00 79.379 kg [facility] BMI 2024-07-04 07:28:00 32.01 kg/m2 [facility] Systolic blood pressure 2024-03-12 11:00:00 127 mm[Hg] [facility] Diastolic blood pressure 2024-03-12 11:00:00 94 mm[Hg] [facility] Heart rate 2024-03-12 11:00:00 84 /min [facility] Body temperature 2024-03-12 11:00:00 36.61 Jennifer [facility] Respiratory rate 2024-03-12 11:00:00 14 /min [facility] Oxygen saturation in Arterial blood by Pulse oximetry 2024-03-12 11:00:00 100 /min [facility] Body height 2024-03-12 07:04:00 157.5 cm [facility] Body weight 2024-03-12 07:04:00 87 kg [facility] BMI 2024-03-12 07:04:00 35.08 kg/m2 [facility] Systolic blood pressure 2024-02-03 12:00:00 121 mm[Hg] [facility] Diastolic blood pressure 2024-02-03 12:00:00 82 mm[Hg] [facility] Heart rate 2024-02-03 12:00:00 80 /min [facility] Respiratory rate 2024-02-03 12:00:00 17 /min [facility] Oxygen saturation in Arterial blood by Pulse oximetry 2024-02-03 12:00:00 100 /min [facility] Body temperature 2024-02-03 09:01:00 37.33 Jennifer [facility] Body height 2024-02-03 09:01:00 157.5 cm [facility] Body weight 2024-02-03 09:01:00 81.647 kg [facility] BMI 2024-02-03 09:01:00 32.92 kg/m2 [facility] Systolic blood pressure 2024-01-02 05:38:00 109 mm[Hg] [facility] Diastolic blood pressure 2024-01-02 05:38:00 91 mm[Hg] [facility] Heart rate 2024-01-02 05:38:00 93 /min [facility] Body temperature 2024-01-02 05:38:00 36.28 Jennifer [facility] Respiratory rate 2024-01-02 05:38:00 20 /min [facility] Oxygen saturation in Arterial blood by Pulse oximetry 2024-01-02 05:38:00 99 /min [facility] Body height 2024-01-02 03:25:00 157.5 cm [facility] Body weight 2024-01-02 03:25:00 81.647 kg [facility] BMI 2024-01-02 03:25:00 32.92 kg/m2 [facility] Systolic blood pressure 2023-12-26 08:51:00 115 mm[Hg] [facility] Diastolic blood pressure 2023-12-26 08:51:00 78 mm[Hg] [facility] Heart rate 2023-12-26 08:51:00 98 /min [facility] Body temperature 2023-12-26 08:51:00 37.5 Jennifer [facility] Respiratory rate 2023-12-26 08:51:00 12 /min [facility] Body height 2023-12-26 08:51:00 157.5 cm [facility] Body weight 2023-12-26 08:51:00 85.322 kg [facility] BMI 2023-12-26 08:51:00 34.40 kg/m2 [facility] Oxygen saturation in Arterial blood by Pulse oximetry 2023-12-26 08:51:00 100 /min [facility] Systolic blood pressure 2023-11-20 16:29:00 120 mm[Hg] [facility] Diastolic blood pressure 2023-11-20 16:29:00 89 mm[Hg] [facility] Heart rate 2023-11-20 16:29:00 85 /min [facility] Respiratory rate 2023-11-20 16:29:00 16 /min [facility] Oxygen saturation in Arterial blood by Pulse oximetry 2023-11-20 16:29:00 97 /min [facility] Body temperature 2023-11-20 12:44:00 37.11 Jennifer [facility] Body height 2023-11-20 12:44:00 157.5 cm [facility] Body weight 2023-11-20 12:44:00 82.101 kg [facility] BMI 2023-11-20 12:44:00 33.11 kg/m2 [facility] Systolic blood pressure 2023-11-12 06:09:00 135 mm[Hg] [facility] Diastolic blood pressure 2023-11-12 06:09:00 86 mm[Hg] [facility] Heart rate 2023-11-12 06:09:00 89 /min [facility] Body temperature 2023-11-12 06:09:00 37.28 Jennifer [facility] Respiratory rate 2023-11-12 06:09:00 16 /min [facility] Body height 2023-11-12 06:09:00 157.5 cm [facility] Body weight 2023-11-12 06:09:00 83.553 kg [facility] BMI 2023-11-12 06:09:00 33.69 kg/m2 [facility] Oxygen saturation in Arterial blood by Pulse oximetry 2023-11-12 06:09:00 100 /min [facility] Systolic blood pressure 2023-10-28 02:30:00 121 mm[Hg] [facility] Diastolic blood pressure 2023-10-28 02:30:00 80 mm[Hg] [facility] Heart rate 2023-10-28 02:30:00 124 /min [facility] Body temperature 2023-10-28 02:30:00 38 Jennifer [facility] Respiratory rate 2023-10-28 02:30:00 20 /min [facility] Body weight 2023-10-28 02:30:00 86.183 kg [facility] BMI 2023-10-28 02:30:00 34.75 kg/m2 [facility] Oxygen saturation in Arterial blood by Pulse oximetry 2023-10-28 02:30:00 96 /min [facility] Systolic blood pressure 2023-09-09 02:47:12 116 mm[Hg] [facility] Diastolic blood pressure 2023-09-09 02:47:12 85 mm[Hg] [facility] Heart rate 2023-09-09 02:47:12 78 /min [facility] Body temperature 2023-09-09 02:47:12 36.28 Jennifer [facility] Respiratory rate 2023-09-09 02:47:12 18 /min [facility] Oxygen saturation in Arterial blood by Pulse oximetry 2023-09-09 02:47:12 98 /min [facility] Body height 2023-09-09 00:30:00 157.5 cm [facility] Body weight 2023-09-09 00:30:00 85.276 kg [facility] BMI 2023-09-09 00:30:00 34.39 kg/m2 [facility] Systolic blood pressure 2023-09-07 12:45:00 119 mm[Hg] [facility] Diastolic blood pressure 2023-09-07 12:45:00 83 mm[Hg] [facility] Heart rate 2023-09-07 12:45:00 101 /min [facility] Body temperature 2023-09-07 12:45:00 37.5 Jennifer [facility] Respiratory rate 2023-09-07 12:45:00 18 /min [facility] Body height 2023-09-07 12:45:00 157.5 cm [facility] Body weight 2023-09-07 12:45:00 82.872 kg [facility] BMI 2023-09-07 12:45:00 33.42 kg/m2 [facility] Oxygen saturation in Arterial blood by Pulse oximetry 2023-09-07 12:45:00 99 /min [facility] Systolic blood pressure 2023-09-04 04:00:00 112 mm[Hg] [facility] Diastolic blood pressure 2023-09-04 04:00:00 97 mm[Hg] [facility] Heart rate 2023-09-04 04:00:00 94 /[facility] Body temperature 2023-09-04 04:00:00 36.89 Jennifer [facility] Oxygen saturation in Arterial blood by Pulse oximetry 2023-09-04 04:00:00 98 /min [facility] Respiratory rate 2023-09-04 03:00:00 17 /min [facility] Body height 2023-09-04 00:54:00 157.5 cm [facility] Body weight 2023-09-04 00:54:00 83.915 kg [facility] BMI 2023-09-04 00:54:00 33.84 kg/m2 [facility] Systolic blood pressure 2023-08-04 04:05:00 139 mm[Hg] [facility] Diastolic blood pressure 2023-08-04 04:05:00 77 mm[Hg] [facility] Heart rate 2023-08-04 04:05:00 104 /min [facility] Body temperature 2023-08-04 04:05:00 36.72 Jennifer [facility] Respiratory rate 2023-08-04 04:05:00 16 /min [facility] Body height 2023-08-04 04:05:00 157.5 cm [facility] Body weight 2023-08-04 04:05:00 85.957 kg [facility] BMI 2023-08-04 04:05:00 34.66 kg/m2 [facility] Oxygen saturation in Arterial blood by Pulse oximetry 2023-08-04 04:05:00 100 /min [facility] Systolic blood pressure 2023-07-26 07:38:00 134 mm[Hg] [facility] Diastolic blood pressure 2023-07-26 07:38:00 95 mm[Hg] [facility] Heart rate 2023-07-26 07:38:00 114 /min [facility] Body temperature 2023-07-26 07:38:00 37.28 Jennifer [facility] Respiratory rate 2023-07-26 07:38:00 18 /min [facility] Body height 2023-07-26 07:38:00 157.5 cm [facility] Body weight 2023-07-26 07:38:00 86.183 kg [facility] BMI 2023-07-26 07:38:00 34.75 kg/m2 [facility] Oxygen saturation in Arterial blood by Pulse oximetry 2023-07-26 07:38:00 99 /min [facility] Systolic blood pressure 2023-07-25 14:52:00 126 mm[Hg] [facility] Diastolic blood pressure 2023-07-25 14:52:00 96 mm[Hg] [facility] Heart rate 2023-07-25 14:52:00 98 /min [facility] Body temperature 2023-07-25 14:52:00 37 Jennifer [facility] Respiratory rate 2023-07-25 14:52:00 16 /min [facility] Oxygen saturation in Arterial blood by Pulse oximetry 2023-07-25 14:52:00 98 /min [facility] Body height 2023-07-25 12:33:00 157.5 cm [facility] Body weight 2023-07-25 12:33:00 86.456 kg [facility] BMI 2023-07-25 12:33:00 34.86 kg/m2 [facility] Heart rate 2023-07-12 12:34:00 86 /min [facility] Body temperature 2023-07-12 12:34:00 36.72 Jennifer [facility] Respiratory rate 2023-07-12 12:34:00 16 /min [facility] Body height 2023-07-12 12:34:00 157.5 cm [facility] Body weight 2023-07-12 12:34:00 86.183 kg [facility] BMI 2023-07-12 12:34:00 34.75 kg/m2 [facility] Oxygen saturation in Arterial blood by Pulse oximetry 2023-07-12 12:34:00 98 /min [facility] Systolic blood pressure 2023-07-12 12:34:00 127 mm[Hg] [facility] Diastolic blood pressure 2023-07-12 12:34:00 86 mm[Hg] [facility] Systolic blood pressure 2023-06-24 10:24:00 118 mm[Hg] [facility] Diastolic blood pressure 2023-06-24 10:24:00 89 mm[Hg] [facility] Heart rate 2023-06-24 10:24:00 95 /min [facility] Body temperature 2023-06-24 10:24:00 36.78 Jennifer [facility] Respiratory rate 2023-06-24 10:24:00 18 /min [facility] Body height 2023-06-24 10:24:00 157.5 cm [facility] Body weight 2023-06-24 10:24:00 89.812 kg [facility] BMI 2023-06-24 10:24:00 36.21 kg/m2 [facility] Oxygen saturation in Arterial blood by Pulse oximetry 2023-06-24 10:24:00 100 /min [facility] Systolic blood pressure 2023-06-18 04:52:00 113 mm[Hg] [facility] Diastolic blood pressure 2023-06-18 04:52:00 82 mm[Hg] [facility] Heart rate 2023-06-18 04:52:00 100 /min [facility] Body temperature 2023-06-18 04:52:00 37.39 Jennifer [facility] Respiratory rate 2023-06-18 04:52:00 18 /min [facility] Body height 2023-06-18 04:52:00 157.5 cm [facility] Body weight 2023-06-18 04:52:00 89.903 kg [facility] BMI 2023-06-18 04:52:00 36.25 kg/m2 [facility] Oxygen saturation in Arterial blood by Pulse oximetry 2023-06-18 04:52:00 100 /min [facility] Systolic blood pressure 2023-06-12 09:00:00 105 mm[Hg] [facility] Diastolic blood pressure 2023-06-12 09:00:00 74 mm[Hg] [facility] Heart rate 2023-06-12 09:00:00 74 /min [facility] Respiratory rate 2023-06-12 09:00:00 16 /min [facility] Oxygen saturation in Arterial blood by Pulse oximetry 2023-06-12 09:00:00 97 /min [facility] Body temperature 2023-06-12 04:09:00 36.89 Jennifer [facility] Body height 2023-06-12 04:09:00 [facility].5 [facility] 2023-06-12 04:09:00 86.183 kg [facility] BMI 2023-06-12 04:09:00 34.75 kg/m2 [facility] Systolic blood pressure 2023-05-28 08:00:00 123 mm[Hg] [facility] Diastolic blood pressure 2023-05-28 08:00:00 78 mm[Hg] [facility] Heart rate 2023-05-28 08:00:00 93 /min [facility] Oxygen saturation in Arterial blood by Pulse oximetry 2023-05-28 08:00:00 99 /min [facility] Respiratory rate 2023-05-28 06:00:00 18 /min [facility] Body temperature 2023-05-28 05:37:00 35.72 Jennifer [facility] Body height 2023-05-28 05:37:00 157.5 cm [facility] Body weight 2023-05-28 05:37:00 87.136 kg [facility] BMI 2023-05-28 05:37:00 35.14 kg/m2 [facility] Systolic blood pressure 2023-03-07 03:59:00 122 mm[Hg] [facility] Diastolic blood pressure 2023-03-07 03:59:00 77 mm[Hg] [facility] Heart rate 2023-03-07 03:59:00 97 /min [facility] 2023-03-07 03:59:00 36.67 Jennifer [facility] Respiratory rate 2023-03-07 03:59:00 18 /min [facility] Body height 2023-03-07 03:59:00 157.5 cm [facility] Body weight 2023-03-07 03:59:00 79.379 kg [facility] BMI 2023-03-07 03:59:00 32.01 kg/m2 [facility] Oxygen saturation in Arterial blood by Pulse oximetry 2023-03-07 03:59:00 99 /min [facility] Heart rate 2023-02-02 07:48:00 73 /min [facility] Oxygen saturation in Arterial blood by Pulse oximetry 2023-02-02 07:48:00 98 /min [facility] Systolic blood pressure 2023-02-02 07:00:00 122 mm[Hg] [facility] Diastolic blood pressure 2023-02-02 07:00:00 79 mm[Hg] [facility] Respiratory rate 2023-02-02 07:00:00 15 /min [facility] Body temperature 2023-02-02 06:07:00 36.94 Jennifer [facility] Body height 2023-02-02 06:07:00 157.5 cm [facility] Body weight 2023-02-02 06:07:00 79.379 kg [facility] BMI 2023-02-02 06:07:00 32.01 kg/m2 [facility] Systolic blood pressure 2022-10-24 21:42:00 114 mm[Hg] [facility] Diastolic blood pressure 2022-10-24 21:42:00 74 mm[Hg] [facility] Heart rate 2022-10-24 21:42:00 72 /min [facility] Respiratory rate 2022-10-24 21:42:00 16 /min [facility] Oxygen saturation in Arterial blood by Pulse oximetry 2022-10-24 21:42:00 99 /min [facility] Body temperature 2022-10-24 18:03:00 37.33 Jennifer [facility] Body height 2022-10-24 18:03:00 157.5 cm [facility] Body weight 2022-10-24 18:03:00 79.379 kg [facility] BMI 2022-10-24 18:03:00 32.01 kg/m2 [facility] Systolic blood pressure 2022-07-21 12:46:00 115 mm[Hg] [facility] Diastolic blood pressure 2022-07-21 12:46:00 83 mm[Hg] [facility] Heart rate 2022-07-21 12:46:00 82 /min [facility] Body temperature 2022-07-21 12:46:00 36.89 Jennifer [facility] Respiratory rate 2022-07-21 12:46:00 18 /min [facility] Body weight 2022-07-21 12:46:00 78.019 kg [facility] BMI 2022-07-21 12:46:00 31.46 kg/m2 [facility] Oxygen saturation in Arterial blood by Pulse oximetry 2022-07-21 12:46:00 99 /min [facility] Systolic blood pressure 2022-05-19 22:00:00 128 mm[Hg] [facility] Diastolic blood pressure 2022-05-19 22:00:00 68 mm[Hg] [facility] Heart rate 2022-05-19 22:00:00 78 /min [facility] Body temperature 2022-05-19 22:00:00 36.78 Jennifer [facility] Respiratory rate 2022-05-19 22:00:00 18 /min [facility] Oxygen saturation in Arterial blood by Pulse oximetry 2022-05-19 22:00:00 100 /min [facility] Body height 2022-05-19 20:31:00 157.5 cm [facility] Body weight 2022-05-19 20:31:00 78.019 kg [facility] BMI 2022-05-19 20:31:00 31.46 kg/m2 [facility] Heart rate 2022-05-13 08:30:00 83 /min [facility] Oxygen saturation in Arterial blood by Pulse oximetry 2022-05-13 08:30:00 99 /min [facility] Systolic blood pressure 2022-05-13 08:00:00 111 mm[Hg] [facility] Diastolic blood pressure 2022-05-13 08:00:00 80 mm[Hg] [facility] Body temperature 2022-05-13 07:05:00 37 Jennifer [facility] Respiratory rate 2022-05-13 07:05:00 18 /min [facility] Body height 2022-05-13 07:05:00 157.5 cm [facility] Body weight 2022-05-13 07:05:00 76.658 kg [facility] BMI 2022-05-13 07:05:00 30.91 kg/m2 [facility] Systolic blood pressure 2022-04-01 21:47:00 124 mm[Hg] [facility] Diastolic blood pressure 2022-04-01 21:47:00 84 mm[Hg] [facility] Heart rate 2022-04-01 21:47:00 89 /min [facility] Body temperature 2022-04-01 21:47:00 37.22 Jennifer [facility] Respiratory rate 2022-04-01 21:47:00 22 /min [facility] Body weight 2022-04-01 21:47:00 77.111 kg [facility] BMI 2022-04-01 21:47:00 29.18 kg/m2 [facility] Oxygen saturation in Arterial blood by Pulse oximetry 2022-04-01 21:47:00 99 /min [facility] Systolic blood pressure 2021-10-25 19:42:00 103 mm[Hg] [facility] Diastolic blood pressure 2021-10-25 19:42:00 74 mm[Hg] [facility] Heart rate 2021-10-25 19:42:00 94 /min [facility] Body temperature 2021-10-25 19:42:00 37.67 Jennifer [facility] Respiratory rate 2021-10-25 19:42:00 18 /min [facility] Body weight 2021-10-25 19:42:00 70.761 kg [facility] BMI 2021-10-25 19:42:00 26.78 kg/m2 [facility] Oxygen saturation in Arterial blood by Pulse oximetry 2021-10-25 19:42:00 99 /min [facility] BP Systolic 2024-08-25 14:45:00 115 mm[Hg] Step hen F Edilson BP Diastolic 2024-08-25 14:45:00 81 mm[Hg] Osito phen F Edilson Weight Measured 2024-08-25 14:45:00 192.80 pounds Darryl F Edilson Height Measured 2024-08-25 14:45:00 63.00 inches Darryl F Edilson Body Temperature 2024-08-25 14:45:00 98.50 degrees Darryl F Edilson Heart Rate 2024-08-25 14:45:00 96.00 /min Beatris en F Edilson Respiratory Rate 2024-08-25 14:45:00 18.00 /min Darryl F Edilson BP Systolic 2024-07-09 15:30:00 121 mm[Hg] Step [...] ACUTE SERIES 2024-07-25 14:37:21 Do jasmina Marie [facility] POCT TEST 2024-07-25 13:23:00 Ryan Marie [facility] LIPASE 2024-07-25 13:21:00 [facility]i [facility] COMP. METABOLIC PANEL ([id number]) 2024-07-25 13:21:00 Doni Marie [facility] CBC WITH DIFF 2024-07-25 13:21:00 Doni Marie [facility] URINALYSIS 2024-07-25 13:21:00 [facility] URINE DRUG (IMMUNOASSAY) - COMPREHENSIVE DRUG SCREEN W/O REFLEX 2024-07-25 13:21:00 Doni Marie [facility] CT ABDOMEN PELVIS W CONTRAST 2024-07-04 08:54:02 Selene Parra [facility] POCT TEST 2024-07-04 07:36:00 Selene Parra [facility] LIPASE 2024-07-04 07:33:00 Selene Parra [facility] COMP. METABOLIC PANEL ([id number]) 2024-07-04 07:33:00 Selene Parra [facility] CBC WITH DIFF 2024-07-04 07:33:00 Selene Parra [facility] URINALYSIS 2024-07-04 07:33:00 Selene Parra [facility] CT ABDOMEN PELVIS W CONTRAST 2024-03-12 09:15:57 Selene Parra [facility] LIPASE 2024-03-12 09:01:00 Selene Parra [facility] COMP. METABOLIC PANEL ([id number]) 2024-03-12 09:01:00 Selene Parra [facility] CBC WITH DIFF 2024-03-12 09:01:00 Selene Parra [facility] EBV-MONONUCLEOSIS SCREEN 2024-02-03 10:22:00 Funmilayo Parra [facility] CT ABDOMEN PELVIS W CONTRAST 2024-02-03 10:08:28 Selene Parra [facility] POCT TEST 2024-02-03 09:09:00 Selene Parra [facility] LIPASE 2024-02-03 09:06:00 Selene Parra [facility] COMP. METABOLIC PANEL ([id number]) 2024-02-03 09:06:00 Selene Parra [facility] CBC WITH DIFF 2024-02-03 09:06:00 Selene Parra [facility] URINALYSIS 2024-02-03 09:06:00 Selene Parra [facility] RAPID STREP SCREEN FOR GROUP A 2024-02-03 09:06:00 Selene Parra [facility] ASSIGNMENT OF BENEFITS 2024-01-02 04:22:29 Docto r Unassigned, [place] [facility] RAPID STREP SCREEN FOR GROUP A 2024-01-02 04:20:00 Doni Marie [facility] RAPID INFLUENZA A/B 2024-01-02 03:50:00 Ryan Marie [facility] COVID-19 (ID NOW RAPID TESTING) 2024-01-02 03:50:00 Doni Marie [facility] CONSENT/REFUSAL FOR DIAGNOSIS AND TREATMENT 2024-01-02 03:16:29 Doctor Unassigned, [place] [facility] CONSENT/REFUSAL FOR DIAGNOSIS AND TREATMENT 2023-12-26 08:43:59 Doctor Unassigned, [place] [facility] [id number] Colposcopy Cervix Endocervical Curettage 2023-12-17 00:00:00 Darryl Waggoner US OVARY TORSION 2023-11-20 16:01:25 Doni Marie [facility] CT ABDOMEN PELVIS W CONTRAST 2023-11-20 14:40:23 Doni Marie [facility] COMP. METABOLIC PANEL ([id number]) 2023-11-20 13:27:00 Doni Marie [facility] CBC WITH DIFF 2023-11-20 13:27:00 Doni Marie [facility] URINALYSIS 2023-11-20 13:27:00 Doni Marie [facility] POCT TEST 2023-11-20 13:26:00 Ryan Marie [facility] CONSENT/REFUSAL FOR DIAGNOSIS AND TREATMENT 2023-11-20 12:37:06 Doctor Unassigned, [place] [facility] CONSENT/REFUSAL FOR DIAGNOSIS AND TREATMENT 2023-11-12 06:04:20 Doctor Unassigned, [place] [facility] CONSENT/REFUSAL FOR DIAGNOSIS AND TREATMENT 2023-10-28 02:10:42 Doctor Unassigned, [place] [facility] URINALYSIS 2023-09-09 02:35:00 Danie Ontiveros [facility] XR KUB 2023-09-09 01:28:00 Danie Ontiveros [facility] CT LUMBAR SPINE WO CONTRAST 2023-09-09 01:02:05 Danie Ontiveros [facility] CONSENT/REFUSAL FOR DIAGNOSIS AND TREATMENT 2023-09-09 00:05:52 Doctor Unassigned, [place] [facility] POCT TEST 2023-09-07 13:28:00 Juli Srivastava ra [facility] URINALYSIS 2023-09-07 13:27:00 [facility]IS AND TREATMENT 2023-09-07 12:42:21 Doctor Unassigned, [place] [facility] COMP. METABOLIC PANEL ([id number]) 2023-09-04 02:29:00 Selene Parra [facility] CBC WITH DIFF 2023-09-04 02:29:[address] [facility] RAPID INFLUENZA A/B 2023-09-04 02:26:00 Selene Parra [facility] COVID-19 (ID NOW RAPID TESTING) 2023-09-04 02:26:00 Selene Parra [facility] ASSIGNMENT OF BENEFITS 2023-09-04 02:07:25 Docto r Unassigned, [place] CONSENT/REFUSAL FOR DIAGNOSIS AND TREATMENT 2023-09-04 00:46:16 Doctor Unassigned, [place] [facility] CONSENT/REFUSAL FOR DIAGNOSIS AND TREATMENT 2023-08-04 03:55:32 Doctor Unassigned, [place] [facility] URINALYSIS 2023-07-26 08:52:00 Memo Resendiz [facility] URINALYSIS 2023-07-26 08:20:00 Memo Resendiz [facility] ASSIGNMENT OF BENEFITS 2023-07-26 08:05:43 Docto r Unassigned, [place] [facility] CONSENT/REFUSAL FOR DIAGNOSIS AND TREATMENT 2023-07-26 07:33:52 Doctor Unassigned, [place] [facility] RAPID STREP SCREEN FOR GROUP A 2023-07-25 13:40:00 Danii Arriaga [facility] RAPID INFLUENZA A/B 2023-07-25 13:40:00 Minal Arriaga [facility] COVID-19 (ID NOW RAPID TESTING) 2023-07-25 13:40:00 Danii Arriaga [facility] XR CHEST 2 VW 2023-07-25 13:26:06 Danii Arriaga [facility] ASSIGNMENT OF BENEFITS 2023-07-25 13:17:29 Docto r Unassigned, [place] [facility] CONSENT/REFUSAL FOR DIAGNOSIS AND TREATMENT 2023-07-25 12:29:51 Doctor Unassigned, [place] [facility] XR CHEST 2 VW 2023-07-12 13:13:00 Doni Marie [facility] POCT TEST 2023-07-12 12:56:00 Ryan Marie [facility] CONSENT/REFUSAL FOR DIAGNOSIS AND TREATMENT 2023-07-12 12:27:58 Doctor Unassigned, [place] [facility] [id number] Colposcopy Cervix Uppr/adjcnt Vagina W/cervix Bx 2023-06-26 00:00:00 Darryl Waggoner [id number] Endometrial Bx W/wo Endocervix Bx W/o Dilat Spx 2023-06-26 00:00:00 Darryl Waggoner CONSENT/REFUSAL FOR DIAGNOSIS AND TREATMENT 2023-06-24 10:15:34 Doctor Unassigned, [place] [facility] RAPID INFLUENZA A/B 2023-06-18 05:03:00 Michelle Terry [facility] RAPID RSV 2023-06-18 05:03:00 Michelle Terry [facility] COVID-19 (ID NOW RAPID TESTING) 2023-06-18 05:03:00 Michelle Terry [facility] CONSENT/REFUSAL FOR DIAGNOSIS AND TREATMENT 2023-06-18 04:46:39 Doctor Unassigned, [facility] US OVARY TORSION 2023-06-12 08:14:06 Raven Lieberman [facility] POCT TEST 2023-06-12 05:07:00 Raven Lieberman [facility] COMP. METABOLIC PANEL ([id number]) 2023-06-12 05:02:00 Raven Lieberman [facility] CBC WITH DIFF 2023-06-12 05:02:00 Raven Lieberman [facility] URINALYSIS 2023-06-12 05:02:00 Raven Lieberman [facility] NOTICE OF PRIVACY PRACTICES 2023-06-12 04:10:01 Doctor Unassigned, [place] [facility] CONSENT/REFUSAL FOR DIAGNOSIS AND TREATMENT 2023-06-12 04:06:29 Doctor Unassigned, [place] [facility] CT ABDOMEN PELVIS W CONTRAST 2023-05-28 07:44:47 Raven Lieberman [facility] POCT TEST 2023-05-28 06:40:00 Raven Lieberman [facility] COMP. METABOLIC PANEL ([id number]) 2023-05-28 06:34:00 Raven Lieberman [facility] CBC WITH DIFF 2023-05-28 06:34:00 Raven Lieberman [facility] URINALYSIS 2023-05-28 06:34:00 Raven Lieberman [facility] CONSENT/REFUSAL FOR DIAGNOSIS AND TREATMENT 2023-05-28 05:25:17 Doctor Unassigned, [place] [address] Removal Impacted Cerumen Using Irrigation/lavage, Unilateral 2023-04-30 00:00:00 Darryl Waggoner ASSIGNMENT OF BENEFITS 2023-03-07 04:54:51 Docto r Unassigned, [facility] RAPID STREP SCREEN FOR GROUP A 2023-03-07 03:52:00 Hermilo Ricks [facility] CONSENT/REFUSAL FOR DIAGNOSIS AND TREATMENT 2023-03-07 02:58:48 Doctor Unassigned, [facility] BASIC METABOLIC PANEL (NA, K, CL, CO2, GLUCOSE, BUN, CREATININE, CA) 2023-02-02 06:41:00 Selene Parra [facility] CBC WITH DIFF 2023-02-02 06:41:00 Selene Parra [facility] POCT TEST 2023-02-02 06:17:00 Selene Parra [facility] NOTICE OF PRIVACY PRACTICES 2023-02-02 06:00:34 Doctor Unassigned, [facility] CONSENT/REFUSAL FOR DIAGNOSIS AND TREATMENT 2023-02-02 05:59:54 Doctor Unassigned, [place] [facility] CT ABDOMEN PELVIS W CONTRAST 2022-10-24 20:00:18 Suraj Scott [facility] US OVARY TORSION 2022-10-24 19:43:53 Surja Scott [facility] LIPASE 2022-10-24 18:58:[address] [facility] COMP. METABOLIC PANEL ([id number]) 2022-10-24 18:58:00 Suraj Scott [facility] CBC WITH DIFF 2022-10-24 18:58:00 [facility]-24 18:58:00 Suraj Scott [facility] POCT TEST 2022-10-24 18:58:00 Odessa Scott [facility] CBC WITH DIFF 2022-07-21 13:07:00 Hermilo Ricks [facility] POCT TEST 2022-07-21 12:55:00 Jeanine Ricks [facility] URINALYSIS 2022-07-21 12:52:00 [facility] CONSENT/REFUSAL FOR DIAGNOSIS AND TREATMENT 2022-07-21 12:44:40 Doctor Unassigned, [place] [facility] CT ABDOMEN PELVIS W CONTRAST 2022-05-19 21:32:53 Cat Rutledge [facility] LIPASE 2022-05-19 20:49:00 Cat Rutledge [facility] COMP. METABOLIC PANEL ([id number]) 2022-05-19 20:49:00 Cat Rutledge [facility] CBC WITH DIFF 2022-05-19 20:49:00 Cat Rutledge [facility] URINALYSIS 2022-05-19 20:49:00 [facility] POCT TEST 2022-05-19 20:49:00 Paxton Rutledge [facility] URINE DRUG (IMMUNOASSAY) - COMPREHENSIVE DRUG SCREEN W/O REFLEX 2022-05-19 20:49:00 Cat Rutledge [facility] CONSENT/REFUSAL FOR DIAGNOSIS AND TREATMENT 2022-05-19 20:16:10 Doctor Unassigned, [place] [facility] POCT TEST 2022-05-13 07:37:00 Selene Parra [facility] LIPASE 2022-05-13 07:32:00 Selene Parra [facility] COMP. METABOLIC PANEL ([id number]) 2022-05-13 07:32:00 Selene Parra [facility] CBC WITH DIFF 2022-05-13 07:32:00 Selene Parra [facility] URINALYSIS 2022-05-13 07:32:00 Selene Parra [facility] CONSENT/REFUSAL FOR DIAGNOSIS AND TREATMENT 2022-05-13 06:55:55 Doctor Unassigned, [place] XR ANKLE <3 VW RIGHT 2022-04-01 22:28:50 Deny Rg [facility] URINALYSIS 2022-04-01 22:21:00 Christy Rg [facility] POCT TEST 2022-04-01 22:19:00 Christy Rg [facility] CONSENT/REFUSAL FOR DIAGNOSIS AND TREATMENT 2022-04-01 21:40:47 Doctor Unassigned, [place] POCT TEST 2021-10-25 19:54:00 Lisa Tran [facility] URINALYSIS 2021-10-25 19:53:00 Lisa Tran [facility] CONSENT/REFUSAL FOR DIAGNOSIS AND TREATMENT 2021-10-25 19:34:46 Doctor Unassigned, [facility] NOTICE OF PRIVACY PRACTICES 2021-10-25 19:34:06 Doctor Unassigned, [place] Plan of Care Planned Activity Planned Date Details Comments Source Goal Plan of Care Note [code = 44561-9] Goal Plan of Care Note [code = 79432-8] Goal Plan of Care Note [code = 17944-7] Goal Plan of Care Note [code = 52595-7] Goal Plan of Care Note [code = 97859-0] Goal Plan of Care Note [code = 12805-2] Goal Plan of Care Note [code = 28787-3] Goal Plan of Care Note [code = 82076-1] Goal Plan of Care Note [code = 48182-6] Goal Plan of Care Note [code = 12573-7] Goal Plan of Care Note [code = 97080-5] Goal Plan of Care Note [code = 65645-3] Goal Plan of Care Note [code = 21115-5] Goal Plan of Care Note [code = 70699-4] Goal Plan of Care Note [code = 13865-2] Goal Plan of Care Note [code = 00158-2] Goal Plan of Care Note [code = 82993-2] Goal Plan of Care Note [code = 59389-2] Goal Plan of Care Note [code = 88307-8] Goal Plan of Care Note [code = 63138-6] Goal Plan of Care Note [code = 93772-2] Goal Plan of Care Note [code = 77199-2] Goal Plan of Care Note [code = 58351-9] Goal Plan of Care Note [code = 60605-5] Goal Plan of Care Note [code = 38781-3] Encounters Start Date/Time End Date/Time Encounter Type Admission Type Attending [facility] Care Department Encounter ID Source 2024-08-25 14:31:29 2024-08-25 14:31:[address] [facility] [id number] Darryl F Edilson 2024-08-25 00:00:00 2024-08-25 00:00:[address] [facility] [id number] Darryl Tyron Edilson 2024-07-25 07:55:00 2024-07-25 10:46:00 Emergency X DONI MARIE [facility]NELL [facility] [id number] [facility] 2024-07-25 07:55:00 2024-07-25 10:46:00 Emergency Doni Marie AT [facility] 1.2.840.114 350.1.13.10 4.2.7.2.686 [id number] [facility] 2024-07-09 15:24:23 2024-07-09 15:24:[address] [facility] [id number] Darryl Waggoner 2024-07-09 00:00:00 2024-07-09 00:00:[address] [facility] [id number] Darryl Waggoner 2024-07-04 02:23:00 2024-07-04 06:07:00 Emergency X JAMES PARRASELENE FARMER [facility] [id number] [facility] 2024-07-04 02:23:00 2024-07-04 06:07:00 Emergency RaquelmercedesorianaSelene S [facility] 1..840.114 350.1.13.10 4.2.7.2.686 [id number] [facility] 2024-03-18 13:39:14 2024-03-18 13:39:[address] [facility] [id number] Darryl Waggoner 2024-03-18 00:00:00 2024-03-18 00:00:[address] [facility] [id number] Darryl Waggoner 2024-03-12 02:06:00 2024-03-12 06:07:00 Emergency X RAQUELMERCEDESORIANA CHELSEASIDDHARTH [facility] [id number] [facility] 2024-03-12 02:06:00 2024-03-12 06:07:00 Emergency Raquelmercedesoriana Jamesjose a S [facility] 1.2.840.114 350.1.13.10 4.2.7.2.686 [id number] [facility] 2024-03-06 11:34:36 2024-03-06 11:34:[address] [facility] [id number] Darryl Waggoner 2024-03-06 00:00:00 2024-03-06 00:00:[address] [facility] [id number] Darryl Waggoner 2024-02-03 03:57:00 2024-02-03 07:11:00 Emergency Selene Parra [facility] 1.2.840.114 350.1.13.10 4.2.7.2.686 [id number] [facility] 2024-01-01 22:28:00 2024-01-02 00:44:00 Emergency X DONI MARIE [facility] [id number] [facility] 2024-01-01 22:28:00 2024-01-02 00:44:00 Emergency Doni Marie [facility] 1.2.840.114 350.1.13.10 4.2.7.2.686 [id number] [facility] 2023-12-31 15:24:49 2023-12-31 15:24:[address] [facility] [id number] Darryl Waggoner 2023-12-26 03:53:00 2023-12-26 05:24:00 Emergency X SELENE PARRA [facility] [id number] [facility] 2023-12-26 03:53:00 2023-12-26 05:24:00 Emergency Selene Parra [facility] 1.2.840.114 350.1.13.10 4.2.7.2.686 [id number] [facility] 2023-12-17 08:09:17 2023-12-17 08:09:[address] [facility] [id number] Darryl Waggoner 2023-11-20 06:45:00 2023-11-20 10:52:00 Emergency X DONI MARIE [facility] [id number] [facility] 2023-11-20 06:45:00 2023-11-20 10:52:00 Emergency Doni Marie [facility] 1.2.840.114 350.1.13.10 4.2.7.2.686 [id number] [facility] 2023-11-14 13:08:33 2023-11-14 13:08:[address] [facility] [id number] Darryl Waggoner 2023-11-12 00:13:00 2023-11-12 01:10:00 Emergency X ATIFJULIRA [facility] [id number] [facility] 2023-11-12 00:13:00 2023-11-12 01:10:00 Emergency AtifJulira Perez [facility] 1.2.840.114 350.1.13.10 4.2.7.2.686 [id number] [facility] 2023-10-27 20:33:00 2023-10-27 20:58:00 Emergency X Kavita OJEDA [facility] [id number] [facility] 2023-10-27 20:33:00 2023-10-27 20:58:00 Emergency Kavita Ojeda Soledad [facility] 1.2.840.114 350.1.13.10 4.2.7.2.686 [id number] [facility] 2023-09-17 09:14:32 2023-09-17 09:14:[address] [facility] [id number] Darryl F Edilson 2023-09-08 18:32:00 2023-09-08 21:46:00 Emergency X CHRISTY RG [facility] [id number] [facility] 2023-09-08 18:32:00 2023-09-08 21:46:00 Emergency Danie Ontiveros Pamala G [facility] 1.2.840.114 350.1.13.10 4.2.7.2.686 [id number] [facility] 2023-09-07 06:47:00 2023-09-07 08:22:00 Emergency X CHAYO SRIVASTAVA [facility] [id number] [facility] 2023-09-07 06:47:00 2023-09-07 08:22:00 Emergency Chayo Srivastava [facility] 1.2.840.114 350.1.13.10 4.2.7.2.686 [id number] [facility] 2023-09-03 18:57:00 2023-09-03 22:03:00 Emergency X RAQUELMERCEDESJAMES MONTANOJOSE A [facility] [id number] [facility] 2023-09-03 18:57:00 2023-09-03 22:03:00 Emergency Selene Parra [facility] 1.2.840.114 350.1.13.10 4.2.7.2.686 [id number] [facility] 2023-08-28 16:44:07 2023-08-28 16:44:07 Outpatient [facility] [id number] Darryl Waggoner 2023-08-03 23:07:00 2023-08-04 01:08:00 Emergency X Kavita OJEDA [facility] [id number] [facility] 2023-08-03 23:07:00 2023-08-04 01:08:00 Emergency Kavita Ojeda [facility] 1.2.840.114 350.1.13.10 4.2.7.2.686 [id number] [facility] 2023-07-26 02:41:00 2023-07-26 04:25:00 Emergency X MEMO RESENDIZ [facility] [id number] [facility] 2023-07-26 02:41:00 2023-07-26 04:25:00 Emergency Memo Resendiz [facility] 1.2.840.114 350.1.13.10 4.2.7.2.686 [id number] [facility] 2023-07-25 07:36:00 2023-07-25 10:13:00 Emergency X DANII ARRIAGA [facility] [id number] [facility] 2023-07-25 07:36:00 2023-07-25 10:13:00 Emergency Rose Hoff Roxanne [facility] 1.2.840.114 350.1.13.10 4.2.7.2.686 [id number] [facility] 2023-07-24 08:14:55 2023-07-24 08:14:55 Outpatient [facility] [id number] Darryl Waggoner 2023-07-12 07:35:00 2023-07-12 09:00:00 Emergency X DONI MARIE [facility] [id number] [facility] 2023-07-12 07:35:00 2023-07-12 09:00:00 Emergency Doni Marie [facility] 1.2.840.114 350.1.13.10 4.2.7.2.686 [id number] [facility] 2023-07-02 13:54:28 2023-07-02 13:54:28 Outpatient [facility] [id number] Darryl Waggoner 2023-06-26 13:20:40 2023-06-26 13:20:40 Outpatient [facility] [id number] Darryl Waggoner 2023-06-24 05:33:00 2023-06-24 06:50:00 Emergency X SELENE PARRA [facility] [id number] [facility] 2023-06-24 05:33:00 2023-06-24 06:50:00 Emergency Selene Parra [facility] 1.2.840.114 [id number] [id number] [id number] [facility] 2023-06-20 16:08:31 2023-06-20 16:08:[address] [facility] [id number] Darryl Waggoner 2023-06-17 23:54:00 2023-06-18 01:35:00 Emergency X MICHELLE TERRY [facility] ERT [id number] [facility] 2023-06-17 23:54:00 2023-06-18 01:35:00 Emergency Michelle Terry Lee [facility] 1.2.840.114 [id number] [id number] [id number] [facility] 2023-06-16 10:56:55 2023-06-16 10:56:[address] [facility] [id number] Darryl Ackerman Edilson 2023-06-14 13:35:05 2023-06-14 13:35:[address] [facility] [id number] Darryl Waggoner 2023-06-12 11:11:07 2023-06-12 11:11:[address] [facility] [id number] Darryl Waggoner 2023-06-11 23:25:00 2023-06-12 04:49:00 Emergency X RAVEN LIEBERMAN [facility] ERT [id number] [facility] 2023-06-11 23:25:00 2023-06-12 04:49:00 Emergency Raven Lieberman [facility] 1.2.840.114 [id number] 4.2.7.2.686 [id number] 084 [id number] [facility] 2023-06-05 11:34:51 2023-06-05 11:34:51 Outpatient SFA SFA [id number] 0822 Darryl Waggoner 2023-05-28 08:05:43 2023-05-28 08:05:[address] [facility] [id number] 0814 Darryl Waggoner 2023-05-28 00:40:00 2023-05-28 04:06:00 Emergency X RAVEN LIEBERMAN [facility] E[facility] [id number] [facility] 2023-05-28 00:40:00 2023-05-28 04:06:00 Emergency Raven Lieberman [facility] 1..840.114 350.1.13.10 4.2.7.2.686 [id number] [id number] [facility] 2023-05-28 00:00:00 2023-05-28 00:00:00 Orders Only Doctor Unassigned, [place] [facility] 1.840.114 350.1.13.10 4.2.7.2.686 [id number] [id number] [facility] 2023-04-30 13:49:49 2023-04-30 13:49:49 Outpatient [facility] [id number] 0717 Darryl Waggoner 2023-04-23 08:52:34 2023-04-23 08:52:34 Outpatient [facility] [id number] 0710 Darryl Waggoner 2023-03-06 22:52:00 2023-03-07 00:12:00 Emergency HERMILO OLSEN [facility] ERT [id number] [facility] 2023-03-06 22:52:00 2023-03-07 00:12:00 Emergency Hermilo Ricks [facility] 1.2.840.114 350.1.13.10 4.2.7.2.686 [id number] [id number] [facility] 2023-02-02 01:06:00 2023-02-02 02:49:00 Emergency X SELENE PARRA [facility] E[facility] [id number] [facility] 2023-02-02 01:06:00 2023-02-02 02:49:00 Emergency Selene Parra [facility] 1.2.840.114 350.1.13.10 4.2.7.2.686 [id number] [id number] [facility] 2023-02-02 00:00:00 2023-02-02 00:00:00 Orders Only Doctor Unassigned, [place] [facility] 1.84.114 350.1.13.10 4.2.7.2.686 [id number] 009 [id number] [facility] 2022-10-24 12:04:00 2022-10-24 15:45:00 Emergency X SURAJ SCOTT [facility] E[facility] [id number] [facility] 2022-10-24 12:04:00 2022-10-24 15:45:00 Emergency Suraj Scott [facility] 1.84.114 350.1.13.10 4.2.7.2.686 [id number] [id number] [facility] 2022-09-25 10:04:19 2022-09-25 10:04:19 Outpatient SFA SFA [id number] 1212 Darryl Waggoner 2022-09-25 00:00:00 2022-09-25 00:00:00 Outpatient Visit [id number]-[id number] dyb529 2022-07-21 07:49:00 2022-07-21 08:56:00 Emergency X HERMILO RICKS [facility] [id number] [facility] 2022-07-21 07:49:00 2022-07-21 08:56:00 Emergency Hermilo Ricks [facility] 1.840.114 350.1.13.10 4.2.7.2.686 [id number] [id number] [facility] 2022-05-19 15:38:00 2022-05-19 17:24:00 Emergency X CAT RUTLEDGE [facility] E[facility] [id number] [facility] 2022-05-19 15:38:00 2022-05-19 17:24:00 Emergency Cat Rutledge [facility] 1.2840.114 350.1.13.10 4.2.7.2.686 [id number] [id number] [facility] 2022-05-19 00:00:00 2022-05-19 00:00:00 Outpatient Visit [id number]- [id number] -f044-j8e [id number]-t 655-[id number] cb00bc 2022-05-13 02:08:00 2022-05-13 04:24:00 Emergency Selene Parra [facility] 1.840.114 350.1.13.10 4.2.7.2.686 [id number] [id number] [facility] 2022-05-13 02:08:00 2022-05-13 04:24:00 Emergency X CHELSEA PARRASIDDHARTH [facility] E[facility] [id number] [facility] 2022-04-01 16:48:00 2022-04-01 18:39:00 Emergency X ARCENIOCAROLINACHRISTY [facility] ERT [id number] [facility] 2022-04-01 16:48:00 2022-04-01 18:39:00 Emergency Arcenio Christy G [facility] 1.0.114 350.1.13.10 4.2.7.2.686 [id number] [id number] [facility] 2022-04-01 00:00:00 2022-04-01 00:00:00 Orders Only Doctor Unassigned, [place] [facility] 1.2840.114 350.1.13.10 4.2.7.2.686 [id number] 009 [id number] [facility] 2021-10-25 13:44:00 2021-10-25 15:25:00 Emergency X LISA TRAN [facility] [id number] [facility] 2021-10-25 13:44:00 2021-10-25 15:25:00 Emergency Lisa Tran [facility] 1.2.840.114 350.1.13.10 4.2.7.2.686 [id number] [id number] [facility] 2021-10-25 00:00:00 2021-10-25 00:00:00 Orders Only Doctor Unassigned, [place] [facility] 1.2.840.114 350.1.13.10 4.2.7.2.686 [id number] [facility] 2021-05-03 17:49:00 2021-05-04 02:46:00 Emergency [facility] [id number] [facility] 2021-04-16 21:16:42 2021-04-22 13:04:00 Inpatient [facility] [id number] [facility] 2021-04-08 17:04:00 2021-04-08 17:04:00 Emergency X ROCHELLE GOLD [facility] [id number] [facility] 2021-04-08 02:42:00 2021-04-08 02:42:00 Emergency X LISA TRAN [facility] [id number] [facility] 2021-03-24 18:36:00 2021-03-24 18:36:00 Emergency X [facility] [id number] [facility] Results Test Description Test Time Test [...] identified. No acute bony abnormality is present. [facility] [id number] 09:44:53Examination: Computed tomography of the abdomen and [...] show no suspicious lytic or blastic bony lesion.[facility] [id number] 07:36:00 * Test Item Value Reference Range Interpretation Comme nts POCT PREG (test code = 1605) Negative On board controls acceptable with C Line (test code = 3574) Yes POCT PREG LOT # (test code = 3575) [id number] POCT PREG TEST DATE ( test code = 3576) 07/24/2025 Lab Interpretation (test cod e = 89064-9) Normal [facility] ABDOMEN PELVIS W [id number] 10:12:02Examination: Computed tomography of the abdomen and [...] show no suspicious lytic or blastic bony lesion.[facility]. Metabolic Panel (67377)2024-03-12 09:27:38* Test Item Value Reference Range Interpretation Comme nts NA (test code = 4564160638) 137 mmol/L 135-145 K (test code = 9830142898) 3.8 mmol/L 3.5-5.0 CL (test code = 4853901620) 107 mmol/L 98-108 CO2 TOTAL (test code = 5625035826) 20 mmol/L 23-31 L AGAP (test code = 9233911870) 10 2-16 BUN (test code = 3549973280) 6 mg/dL 7-23 L GLUCOSE (test code = 3210206283) 94 mg/dL 70-110 CREATININE (test code = 2160-0) 0.83 mg/dL 0.50-1.04 TOTAL BILI (test code = 6010190033) 0.4 mg/dL 0.1-1.1 CALCIUM (test code = 8336804127) 9.2 mg/dL 8.6-10.6 T PROTEIN (test code = 0199411559) 7.6 g/dL 6.3-8.2 ALBUMIN (test code = 5455198293) 4.2 g/dL 3.5-5.0 ALK PHOS (test code = 5221291293) 73 U/L 34-122 ALTv (test code = 1742-6) 18 U/L 5-35 AST(SGOT) (test code = 0098670263) 24 U/L 13-40 eGFR (test code = 84506-1) 96.2 mL/min/1.73m2 CKD-EPI eGFR (2020). Assuming creatinine has been stable day-to-day for at least three months, the eGFR indicates Category G1 (>= 90 mL/min/1.73 m2) Lab Interpretation (test code = 28590-3) Abnormal [facility] Antonio[facility]2024-05-29 09:26:57* Test Item Value Reference Range Interpretation Comme nts LIPASE (test code = 6471165842) 108 U/L 0-220 Lab Interpretation (test cod e = 45606-8) Normal [facility] AntonioCbc with [id number] 09:13:56* Test Item Value Reference Range Interpretation [...] g/dL 31.6-35.1 L RDW-SD (test code = 99385-3) 42.4 fL 39.0-49.9 RDW-CV (test code = 788-0) 15.7 % 12.0-15.5 H PLT (test code = 777-3) 346 166-358 MPV (test code = 81673-9) 9.8 fL 9.5-12.9 NRBC/100 WBC (test code = 5615438440) 0.0 0.0-10.0 NRBC x10^3 (test code = 9988168388) See_Comment [Automated messa ge] The system which generated this result transmitted reference range: 10*3/?L. The reference range was not used to interpret this result as normal/abnormal. GRAN MAT (NEUT) % (test code = 770-8) 43.3 % IMM GRAN % (test code = 7160934963) 0.30 % LYMPH % (test code = 736-9) 42.6 % MONO % (test code = 5905-5) 7.5 % EOS % (test code = 713-8) 5.5 % BASO % (test code = 706-2) 0.8 % GRAN MAT x10^3(ANC) (test code = 8190788107) 3.21 10*3/uL 1.88-7.09 IMM GRAN x10^3 (test code = 1185858186) 0.00-0.06 LYMPH x10^3 (test code = 731-0) 3.16 10*3/uL 1.32-3.29 MONO x10^3 (test code = 742-7) 0.56 10*3/uL 0.33-0.92 EOS x10^3 (test code = 711-2) 0.41 10*3/uL 0.03-0.39 H BASO x10^3 (test code = 704-7) 0.06 10*3/uL 0.01-0.07 Lab Interpretation (test code = 70195-6) Abnormal [facility] AntonioEBV-Mononucleosis [id number] 11:45:15* Test Item Value Reference Range Interpretation Comme nts EBV Mononucleosis Screen (te st code = 4188425294) Negative Negative Lab Interpretation (test cod e = 50955-0) Normal [facility] AntonioCT ABDOMEN PELVIS W [id number] 10:26:21ORDERING PHYSICIAN: SELENE PARRA CLINICAL HISTORY: Abdominal [...] the pelvis. Appendixis normal. The bones are unremarkable.[facility] Antonio[facility] [id number] 09:09:00* Test Item Value Reference Range Interpretation Comme [facility] POCT PREG (test code = 1605) Negative On board controls acceptable with C Line (test code = 3574) Yes POCT PREG LOT # (test code = 3575) 388442 POCT PREG TEST DATE ( test code = 3576) 11/21/2024 Lab Interpretation (test cod e = 17038-8) Normal [facility] [id number] 09:50:51* Test Item Value Reference Range Interpretation Comme [facility] DIAGNOSIS: (test code = 8200) (NOTE) A) Conization (L EEP) - EctocervixHigh grade squamous intraepithelial lesion (CIN2), extendingfocally to endocervical and ectocervical/stromal margins. B) Conization (LEEP) - EndocervixFocal high grade squamous intraepithelial lesion (CIN2).Surgical margins negative for dysplasia. COMMENTS: (test code = 8205) (NOTE) The previously r eported abnormal Pap (accession # [id number]) isreviewed. The biopsy material more clearly displays [...] TanNUMBER OF TISSUE PIECES: 2SUBMITTED IN CASSETTE(S): [id number]: FormalinCOMMENTS:Consists of a 1.9x1.1x0.5 cm irregularly shaped [...] TanNUMBER OF TISSUE PIECES: 1SUBMITTED IN CASSETTE(S): [id number]: FormalinCOMMENTS:[place] shaped rubbery tissue fragment partially surfaced bytan-white ectocervix. Os is inked blue by clinician. Endocervicalmargin inked blue. All remaining margins inked orange. Radiallysectioned x 9 and entirely submitted. Specimen fell apart uponsectioning. PATHOLOGIST: (test code = 8250) (NOTE) Heide Shipley MD, Board-certified Anatomic and ClinicalPathology, Hematopathology Specimens processed and interpreted at [facility], [address] [place] [address], , CLIA: [id number] CPT: (test code = 8400) (NOTE) [id number] UNLESS O THERWISE INDICATED, ALL TESTING PERFORMED AT [facility] [email or web address] [address] [place], [place] [id number] BEHAVIORAL HEALTH ASSISTANT: ANIBAL PAREDES M.D. CLIA NUMBER [id number] [facility] [place]. [id number] SURGICAL PATHOLOGY [id number] 00:00:00* Test Item Value Reference Range Interpretation [...] = PDFReport) PDF [facility]ckerman [facility] [id number] 00:00:00* Test Item Value Reference Range Interpretation [...] = PDFReport) PDF [facility] Ackerman [facility] [id number] 00:00:00* Test Item Value Reference Range Interpretation [...] = PDFReport) PDF Darryl Ackerman [facility] [id number] 00:00:00* Test Item Value Reference Range Interpretation [...] code = PDFReport) PDF Darryl Chang OVARY [id number] 16:27:21EXAM: US OVARY TORSION HISTORY: 32 years [...] None [place]-sac: Trace volume free fluid is present.[facility] AntonioCT ABDOMEN PELVIS W [id number] 15:15:04EXAM: CT ABDOMEN PELVIS W CONTRAST HISTORY: [...] No suspicious lytic or sclerotic bony lesions arepresent.[facility]. METABOLIC PANEL ([id number])2023-11-20 14:09:45* Test Item Value Reference Range Interpretation Comme nts NA (test code = 4160806531) 135 mmol/L 135-145 K (test code = 3971563187) 4.1 mmol/L 3.5-5.0 CL (test code = 2976541313) 112 mmol/L 98-108 H CO2 TOTAL (test code = 2333323805) 17 mmol/L 23-31 L AGAP (test code = 4328772971) 6 2-16 BUN (test code = 2066205255) 10 mg/dL 7-23 GLUCOSE (test code = 8780178594) 95 mg/dL 70-110 CREATININE (test code = 0290859280) 0.72 mg/dL 0.50-1.04 TOTAL BILI (test code = 8926369720) 0.2 mg/dL 0.1-1.1 CALCIUM (test code = 6940436975) 9.0 mg/dL 8.6-10.6 T PROTEIN (test code = 3801315391) 7.6 g/dL 6.3-8.2 ALBUMIN (test code = 1131703450) 4.3 g/dL 3.5-5.0 ALK PHOS (test code = 7762772354) 81 U/L 34-122 ALTv (test code = 1742-6) 23 U/L 5-35 AST(SGOT) (test code = 3520338531) 26 U/L 13-40 eGFR (test code = 58261-6) 114.8 mL/min/1.73m2 CKD-EPI eGFR (2020). Assuming creatinine has been stable day-to-day for at least three months, the eGFR indicates Category G1 (>= 90 mL/min/1.73 m2) Lab Interpretation (test code = 31456-2) Abnormal [facility] WITH [id number] 13:53:43* Test Item Value Reference Range Interpretation [...] g/dL 31.6-35.1 L RDW-SD (test code = 46397-6) 42.6 fL 39.0-49.9 RDW-CV (test code = 788-0) 15.5 % 12.0-15.5 PLT (test code = 777-3) 364 166-358 H MPV (test code = 40014-8) 10.0 fL 9.5-12.9 NRBC/100 WBC (test code = 5326973573) 0.0 0.0-10.0 NRBC x10^3 (test code = 6275830379) See_Comment [Automated messa ge] The system which generated this result transmitted reference range: 10*3/?L. The reference range was not used to interpret this result as normal/abnormal. GRAN MAT (NEUT) % (test code = 770-8) 59.8 % IMM GRAN % (test code = 2210002757) 0.30 % LYMPH % (test code = 736-9) 27.8 % MONO % (test code = 5905-5) 9.2 % EOS % (test code = 713-8) 2.1 % BASO % (test code = 706-2) 0.8 % GRAN MAT x10^3(ANC) (test code = 1005385901) 3.70 10*3/uL 1.88-7.09 IMM GRAN x10^3 (test code = 7661106176) 0.00-0.06 LYMPH x10^3 (test code = 731-0) 1.72 10*3/uL 1.32-3.29 MONO x10^3 (test code = 742-7) 0.57 10*3/uL 0.33-0.92 EOS x10^3 (test code = 711-2) 0.13 10*3/uL 0.03-0.39 BASO x10^3 (test code = 704-7) 0.05 10*3/uL 0.01-0.07 Lab Interpretation (test code = 08668-7) [facility] [id number] 13:26:00* Test Item Value Reference Range Interpretation Comme nts POCT PREG (test code = 1605) Negative On board controls acceptable with C Line (test code = 3574) Yes POCT PREG LOT # (test code = 3575) [id number] POCT PREG TEST DATE ( test code = 3576) 01/20/2025 Lab Interpretation (test cod e = 74617-7) Normal [facility] Antonio[facility] [id number] 13:28:00* Test Item Value Reference Range Interpretation Comme nts POCT PREG (test code = 1605) Negative On board controls acceptable with C Line (test code = 3574) Yes POCT PREG LOT # (test code = 3575) [id number] POCT PREG TEST DATE ( test code = 3576) 12/23/2024 Lab Interpretation (test cod e = 23582-5) Normal [facility] AntonioCT/NG, NAAT, [id number] 18:43:32* Test Item Value Reference Range Interpretation Comme nts CHLAMYDIA, NAAT, URINE (test code = 43529) NEGATIVE NEGATIVE Testing is perfo rmed with Lucie HARRY 6800/8800 systems usingreal-time polymerase chain reaction (PCR) method. A negative result does not exclude low level infection, specimensampling error, or collection error. GONORRHEA, NAAT, URINE (test code = 23429) NEGATIVE NEGATIVE Testing is perfo rmed with Lucie HARRY 6800/8800 systems usingreal-time polymerase chain reaction (PCR) method. A negative result does not exclude low level infection, specimensampling error, or collection error. UNLESS OTHERWISE INDICATED, ALL TESTING PERFORMED AT [facility] [address] [place] [address] BEHAVIORAL HEALTH ASSISTANT: ANIBAL PAREDES M.D. CLIA NUMBER [id number] [facility] [place]. [id number] TRICHOMONAS, NAAT, [id number] 16:46:16* Test Item Value Reference Range Interpretation Comme nts TRICHOMONAS, NAAT, URINE (test code = 33787) NEGATIVE NEGATIVE Testing is perfo rmed with Lucie HARRY 6800/8800 method usingreal-time polymerase chain reaction (PCR) method. A negative result does not exclude low level infection, specimensampling error, or collection error. TRICHOMONAS, URINE, [id number] 00:00:00* Test Item Value Reference Range Interpretation Comme nts TRICHOMONAS, NAAT, URINE (te st code = 44551) NEGATIVE Darryl F AustinCT/NG, TMA, [id number] 00:00:00* Test Item Value Reference Range Interpretation Comme nts CHLAMYDIA, NAAT, URINE (test code = 10227) NEGATIVE GONORRHEA, NAAT, URINE (test code = 53037) NEGATIVE Darryl F AustinTRICHOMONAS, URINE, [id number] 00:00:00* Test Item Value Reference Range Interpretation Comme nts TRICHOMONAS, NAAT, URINE (te st code = 02730) NEGATIVE Darryl F AustinCT/NG, TMA, [id number] 00:00:00* Test Item Value Reference Range Interpretation Comme nts CHLAMYDIA, NAAT, URINE (test code = 39020) NEGATIVE GONORRHEA, NAAT, URINE (test code = 08167) NEGATIVE Darryl F AustinTRICHOMONAS, URINE, [id number] 00:00:00* Test Item Value Reference Range Interpretation Comme nts TRICHOMONAS, NAAT, URINE (te st code = 94245) NEGATIVE Darryl Ackerman AustinCT/NG, TMA, [id number] 00:00:00* Test Item Value Reference Range Interpretation Comme nts CHLAMYDIA, NAAT, URINE (test code = 43449) NEGATIVE GONORRHEA, NAAT, URINE (test code = 61030) NEGATIVE Darryl Ackerman AustinTRICHOMONAS, URINE, [id number] 00:00:00* Test Item Value Reference Range Interpretation Comme nts TRICHOMONAS, NAAT, URINE (te st code = 64740) NEGATIVE Darryl F AustinCT/NG, TMA, [id number] 00:00:00* Test Item Value Reference Range Interpretation Comme nts CHLAMYDIA, NAAT, URINE (test code = 60215) NEGATIVE GONORRHEA, NAAT, URINE (test code = 80477) NEGATIVE Darryl Ackerman AustinPOCT [id number] 12:56:00* Test Item Value Reference Range Interpretation Comme nts POCT PREG (test code = 1605) Negative On board controls acceptable with C Line (test code = 3574) Yes POCT PREG LOT # (test code = 3575) HCG [id number] POCT PREG TEST DATE (test code = 3576) 12/12/2024 Lab Interpretation (test cod e = 31354-2) Normal [facility] [id number] 10:24:44* Test Item Value Reference Range Interpretation [...] TanNUMBER OF TISSUE PIECES: 1SUBMITTED IN CASSETTE(S): [id number]: FormalinCOMMENTS:Entirely submitted intact. F) SPECIMEN LABELED: Cervix 8:00SIZE/WEIGHT: 0.2x0.1x0.1 cm SPECIMEN COLOR: TanNUMBER OF TISSUE PIECES: 1SUBMITTED IN CASSETTE(S): [id number]: FormalinCOMMENTS:Entirely submitted intact. A) SPECIMEN LABELED: EndometriumSIZE/WEIGHT: 1.4x1.3x0.2 cm AggregateSPECIMEN COLOR: TanNUMBER OF TISSUE PIECES: multipleSUBMITTED IN CASSETTE(S): [id number]: FormalinCOMMENTS:Filtered and entirely submitted. B) SPECIMEN LABELED: EndocervixSIZE/WEIGHT: 1.7x1.5x0.3 cm AggregateSPECIMEN COLOR: TanNUMBER OF TISSUE PIECES: multipleSUBMITTED IN CASSETTE(S): [id number]: FormalinCOMMENTS:Filtered and entirely submitted. C) SPECIMEN LABELED: Cervix 1:00SIZE/WEIGHT: 0.4x0.3x0.1 cm SPECIMEN COLOR: TanNUMBER OF TISSUE PIECES: 1SUBMITTED IN CASSETTE(S): [id number]: FormalinCOMMENTS:Entirely submitted intact. D) SPECIMEN LABELED: Cervix 3:00SIZE/WEIGHT: 0.2x0.2x0.1 cm SPECIMEN COLOR: TanNUMBER OF TISSUE PIECES: 1SUBMITTED IN CASSETTE(S): c5VBJFIX: FormalinCOMMENTS:Entirely submitted intact. PATHOLOGIST: (test code = 8250) (NOTE) Gita Morocho M.D., P h.D., Board Certified in Anatomic and ClinicalPathology, Cytopathology Specimens processed and interpreted at [facility], [address] [place] [address], , CLIA: [id number] CPT: (test code = 8400) (NOTE) [id number] UNLESS O THERWISE INDICATED, ALL TESTING PERFORMED AT [facility] [address] [place] [address] BEHAVIORAL HEALTH ASSISTANT: ANIBAL PAREDES M.D. CLIA NUMBER [id number] [facility] [place]. [id number] SURGICAL PATHOLOGY [id number] 00:00:00* Test Item Value Reference Range Interpretation Comme nts DIAGNOSIS: (test code = 8200) (NOTE) MICROSCOPIC DESCRIPTION: (te st code = 8210) (NOTE) CLINICAL DATA: (test code = 8401) (NOTE) GROSS DESCRIPTION: (test code = 8220) (NOTE) PATHOLOGIST: (test code = 8250) (NOTE) CPT: (test code = 8400) (NOTE) PDFE (test code = PDFReport) PDF Darryl Ackerman [facility]ICAL PATH[facility] [id number] 00:00:00* Test Item Value Reference Range Interpretation Comme nts DIAGNOSIS: (test code = 8200) (NOTE) MICROSCOPIC DESCRIPTION: (te st code = 8210) (NOTE) CLINICAL DATA: (test code = 8401) (NOTE) GROSS DESCRIPTION: (test code = 8220) (NOTE) PATHOLOGIST: (test code = 8250) (NOTE) CPT: (test code = 8400) (NOTE) PDFE (test code = PDFReport) PDF Darryl Ackerman [facility] [id number] 00:00:00* Test Item Value Reference Range Interpretation Comme nts DIAGNOSIS: (test code = 8200) (NOTE) MICROSCOPIC DESCRIPTION: (te st code = 8210) (NOTE) CLINICAL DATA: (test code = 8401) (NOTE) GROSS DESCRIPTION: (test code = 8220) (NOTE) PATHOLOGIST: (test code = 8250) (NOTE) CPT: (test code = 8400) (NOTE) PDFE (test code = PDFReport) PDF [facility]ryl Ackerman [facility] [id number] 00:00:00* Test Item Value Reference Range Interpretation Comme nts DIAGNOSIS: (test code = 8200) (NOTE) MICROSCOPIC DESCRIPTION: (te st code = 8210) (NOTE) CLINICAL DATA: (test code = 8401) (NOTE) GROSS DESCRIPTION: (test code = 8220) (NOTE) PATHOLOGIST: (test code = 8250) (NOTE) CPT: (test code = 8400) (NOTE) PDFE (test code = PDFReport) PDF Darryl Ackerman AustinVAGINAL PATHOGENS DNA [id number] 13:41:36* Test Item Value Reference Range Interpretation Comme nts JAZ SPECIES (test code = 08444) NEGATIVE NEGATIVE G. VAGINALIS (test code = 28389) NEGATIVE NEGATIVE T. VAGINALIS (test code = 66983) NEGATIVE NEGATIVE Note: The BD [facility] VPIII Microbial Identification Testis a DNA probe test intended for use in the detectionand identification of Jaz species, Gardnerellavaginalis and Trichomonas vaginalis nucleic acid. UNLESS OTHERWISE INDICATED, ALL TESTING PERFORMED AT [facility] [address] [place] [address] BEHAVIORAL HEALTH ASSISTANT: ANIBAL PAREDES M.D. CLIA NUMBER [id number] [facility] [place] [place]. [id number] VAGINAL PATHOGENS DNA [id number] 00:00:00* Test Item Value Reference Range Interpretation Comme nts JAZ SPECIES (test code = 32013) NEGATIVE G. VAGINALIS (test code = 44124) NEGATIVE T. VAGINALIS (test code = 71628) NEGATIVE Darryl Ackerman [facility] DNA [id number] 00:00:00* Test Item Value Reference Range Interpretation Comme nts JAZ SPECIES (test code = 48488) NEGATIVE G. VAGINALIS (test code = 56730) NEGATIVE T. VAGINALIS (test code = 93846) NEGATIVE Darryl Ackerman [facility] DNA [id number] 00:00:00* Test Item Value Reference Range Interpretation Comme nts JAZ SPECIES (test code = ) NEGATIVE G. VAGINALIS (test code = 06599) NEGATIVE T. VAGINALIS (test code = 54370) NEGATIVE Darryl F AustinVAGINAL PATHOGENS DNA [id number] 00:00:00* Test Item Value Reference Range Interpretation Comme nts JAZ SPECIES (test code = ) NEGATIVE G. VAGINALIS (test code = 01828) NEGATIVE T. VAGINALIS (test code = ) NEGATIVE Darryl WaggonerCOMP. METABOLIC PANEL (08306)2023-06-12 05:34:53* Test Item Value Reference Range Interpretation Comme nts NA (test code = 5050746661) 137 mmol/L 135-145 K (test code = 0846424910) 3.9 mmol/L 3.5-5.0 CL (test code = 8456382900) 106 mmol/L 98-108 CO2 TOTAL (test code = 2807474087) 24 mmol/L 23-31 AGAP (test code = 0998943236) 7 2-16 BUN (test code = 1632833248) 10 mg/dL 7-23 GLUCOSE (test code = 9997584531) 90 mg/dL 70-110 CREATININE (test code = 2828333274) 0.94 mg/dL 0.50-1.04 TOTAL BILI (test code = 0251119704) 0.1-1.1 L CALCIUM (test code = 6468782606) 9.1 mg/dL 8.6-10.6 T PROTEIN (test code = 4928566757) 6.9 g/dL 6.3-8.2 ALBUMIN (test code = 8415792058) 4.1 g/dL 3.5-5.0 ALK PHOS (test code = 5013828277) 72 U/L 34-122 ALTv (test code = 1742-6) 24 U/L 5-35 AST(SGOT) (test code = 0975045371) 28 U/L 13-40 eGFR (test code = 3498850777) 69.5 mL/min/1.73m2 ELIA (test code = ELIA) [...] imaging tests). Lab Interpretation (test code = 92972-5) Abnormal [facility] WITH [id number] 05:16:33* Test Item Value Reference Range Interpretation Comme nts WBC (test code = 6690-2) 7.81 See_Comment [Automated Metara] The system which generated this result transmitted reference range: 4.30 - 11.10 10*3/?L. The reference range was not used to interpret this result as normal/abnormal. RBC (test code = 789-8) 3.89 See_Comment L [Automated Metara] The system which generated this result transmitted [...] g/dL 31.6-35.1 L RDW-SD (test code = 57715-4) 48.2 fL 39.0-49.9 RDW-CV (test code = 788-0) 17.9 % 12.0-15.5 H PLT (test code = 777-3) 327 See_Comment [Automated messa ge] The system which generated this result transmitted reference range: 166 - 358 10*3/?L. The reference range was not used to interpret this result as normal/abnormal. MPV (test code = 16325-4) 9.7 fL 9.5-12.9 NRBC/100 WBC (test code = 1592790563) 0.0 See_Comment [Automated [employer] ssage] The system which generated this result transmitted reference range: 0.0 - 10.0 /100 WBCs. The reference range was not used to interpret this result as normal/abnormal. NRBC x10^3 (test code = 0920570062) See_Comment [Automated messa ge] The system which generated this result transmitted reference range: 10*3/?L. The reference range was not used to interpret this result as normal/abnormal. GRAN MAT (NEUT) % (test code = 770-8) 40.4 % IMM GRAN % (test code = 1677411824) 0.10 % LYMPH % (test code = 736-9) 45.5 % MONO % (test code = 5905-5) 9.0 % EOS % (test code = 713-8) 4.5 % BASO % (test code = 706-2) 0.5 % GRAN MAT x10^3(ANC) (test code = 6848356991) 3.16 10*3/uL 1.88-7.09 IMM GRAN x10^3 (test code = 5018332351) 0.00-0.06 LYMPH x10^3 (test code = 731-0) 3.55 10*3/uL 1.32-3.29 H MONO x10^3 (test code = 742-7) 0.70 10*3/uL 0.33-0.92 EOS x10^3 (test code = 711-2) 0.35 10*3/uL 0.03-0.39 BASO x10^3 (test code = 704-7) 0.04 10*3/uL 0.01-0.07 Lab Interpretation (test code = 06657-6) [facility] [id number] 05:07:00* Test Item Value Reference Range Interpretation Comme nts POCT PREG (test code = 1605) Negative On board controls acceptable with C Line (test code = 3574) Yes POCT PREG LOT # (test code = 3575) [id number] POCT PREG TEST DATE ( test code = 3576) 10/17/2024 Lab Interpretation (test cod e = 01811-6) Normal [facility] TEST, THINPREP, [id number] 18:32:20 * Test Item Value Reference Range Interpretation Comme nts SOURCE: (test code = 8001) Cervical SLIDES: (test code = 8011) 1 LMP: (test code = 8021) 05/17/2023 SPECIMEN ADEQUACY: (test code = 54785) (NOTE) Satisfactory for evaluation. Endocervical cells/transformation zone component present. INTERPRETATION: (test code = 31970) ASCUS/EPITH. ABNORMALITY; SEE BELOW A - ------- EPITHELIAL CELL ABNORMALITY Atypical squamous cells of undetermined significance (ASC-US) OTHER COMMENTS: (test code = 8081) (NOTE) Trichomonas v aginalis present. DIESEL MAINTENANCE TECHNICIAN: (test code = 8101) TIERA Mcgee(ASC P) PATHOLOGIST INTERPRETATION BY: (test code = 8122) Joana Luna DO LOCATION: (test code = 94299) (NOTE) Specimens proces sed and interpreted at [facility] , [address] [place] [address], , CLIA: [id number] CPT: (test code = 8140) (NOTE) 84630, 55926 UNL ESS OTHERWISE INDICATED, COMPUTER AIDED AND DIESEL MAINTENANCE TECHNICIAN SCREENING PERFORMED. The Pap test is a screening test with an inherent, but low probability of error. Your patient should be reminded to consult you immediately if she experiences any suspicious signs or symptoms, regardless of her Pap test result. An alternate report format containing images or consolidated prior Pap history is available as applicable. PAP TEST, THINPREP, [id number] 00:00:00* Test Item Value Reference Range Interpretation Comme nts SOURCE: (test code = 8001) Cervical SLIDES: (test code = 8011) 1 LMP: (test code = 8021) 05/17/2023 SPECIMEN ADEQUACY: (test code = 13386) (NOTE) INTERPRETATION: (test code = 77874) ASCUS/EPITH. ABNORMALITY; SEE BELOW OTHER COMMENTS: (test code = 8081) (NOTE) DIESEL MAINTENANCE TECHNICIAN: (test code = 8101) TIERA Mcgee(ASCP) PATHOLOGIST INTERPRETATION BY: (test code = 8122) Joana Luna DO LOCATION: (test code = 67189) (NOTE) CPT: (test code = 8140) (NOTE) Darryl WaggonerPAP TEST, THINPREP, [id number] 00:00:00* Test Item Value Reference Range Interpretation Comme nts SOURCE: (test code = 8001) Cervical SLIDES: (test code = 8011) 1 LMP: (test code = 8021) 05/17/2023 SPECIMEN ADEQUACY: (test code = 37446) (NOTE) INTERPRETATION: (test code = 16728) ASCUS/EPITH. ABNORMALITY; SEE BELOW OTHER COMMENTS: (test code = 8081) (NOTE) DIESEL MAINTENANCE TECHNICIAN: (test code = 8101) TIERA Mcgee(ASCP) PATHOLOGIST INTERPRETATION BY: (test code = 8122) Joana Luna DO LOCATION: (test code = 52818) (NOTE) CPT: (test code = 8140) (NOTE) Darryl McadamsP TEST, THINPREP, [id number] 00:00:00* Test Item Value Reference Range Interpretation Comme nts SOURCE: (test code = 8001) Cervical SLIDES: (test code = 8011) 1 LMP: (test code = 8021) 05/17/2023 SPECIMEN ADEQUACY: (test code = 86381) (NOTE) INTERPRETATION: (test code = 64443) ASCUS/EPITH. ABNORMALITY; SEE BELOW OTHER COMMENTS: (test code = 8081) (NOTE) DIESEL MAINTENANCE TECHNICIAN: (test code = 8101) TIERA Mcgee(ASCP) PATHOLOGIST INTERPRETATION BY: (test code = 8122) [facility] LOCATION: (test code = 80643) (NOTE) CPT: (test code = 8140) (NOTE) Darryl McadamsP TEST, THINPREP, [id number] 00:00:00* Test Item Value Reference Range Interpretation Comme nts SOURCE: (test code = 8001) Cervical SLIDES: (test code = 8011) 1 LMP: (test code = 8021) 05/17/2023 SPECIMEN ADEQUACY: (test code = 43989) (NOTE) INTERPRETATION: (test code = 83441) ASCUS/EPITH. ABNORMALITY; SEE BELOW OTHER COMMENTS: (test code = 8081) (NOTE) DIESEL MAINTENANCE TECHNICIAN: (test code = 8101) TIERA Mcgee(ASCP) PATHOLOGIST INTERPRETATION BY: (test code = 8122) [facility] LOCATION: (test code = 41143) (NOTE) CPT: (test code = 8140) (NOTE) Darryl Ackerman AustinCT/NG, NAAT, [id number] 20:10:21* Test Item Value Reference Range Interpretation Comme nts CHLAMYDIA, NAAT, URINE (test code = 71849) POSITIVE NEGATIVE A Testing is perfo rmed with Lucie HARRY 6800/8800 systems usingreal-time polymerase chain reaction (PCR) method. GONORRHEA, NAAT, URINE (test code = 38633) NEGATIVE NEGATIVE Testing is perfo rmed with Lucie HARRY 6800/8800 systems usingreal-time polymerase chain reaction (PCR) method. A negative result does not exclude low level infection, specimensampling error, or collection error. UNLESS OTHERWISE INDICATED, ALL TESTING PERFORMED AT CLINICAL PATHOLOGY [email or web address], [facility]. [address] [place] [address] BEHAVIORAL HEALTH ASSISTANT: Kaylyn GARCIAIA NUMBER [id number] [place]. [id number] HPV HIGH RISK WITH GENOTYPE, [id number] 17:33:46* Test Item Value Reference Range Interpretation Comme nts HPV HIGH RISK INTERP (test code = 35856) POSITIVE NEGATIVE A HPV 16 (test code = 21740) POSITIVE A HPV 18 (test code = 96520) NEGATIVE HPV, HR, OTHER GENOTYPES (test code = 92797) NEGATIVE Testing methodol ogy is real-time PCR utilizing hydrolysis probes with the PROFICIOas 4800 system. The test individually detects genotypes 16 and 18, as well as the other 12 high risk types (31,33,35,39,45,51,52,56 ,58,59,66,68). The expected result is negative. A negative result does not rule out the presence of HPV not included in the genotype set, a low level of infection or specimen sampling error. UNLESS OTHERWISE INDICATED, ALL TESTING PERFORMED AT [facility]ICAL PATH[email or web address] [address] [place] [address] BEHAVIORAL HEALTH ASSISTANT: Kaylyn GARCIAIA NUMBER [id number] [place]. [id number] VAGINAL PATHOGENS DNA [id number] 16:55:18* Test Item Value Reference Range Interpretation Comme nts JAZ SPECIES (test code = 06790) NEGATIVE NEGATIVE G. VAGINALIS (test code = 37795) NEGATIVE NEGATIVE T. VAGINALIS (test code = 31986) NEGATIVE NEGATIVE Note: The [facility] VPIII Microbial Identification Testis a DNA probe test intended for use in the detectionand identification of Jaz species, Gardnerellavaginalis and Trichomonas vaginalis nucleic acid. UNLESS OTHERWISE INDICATED, ALL TESTING PERFORMED AT CLINICAL PATHOLOGY [email or web address], [facility]. [address] [place] [address] BEHAVIORAL HEALTH ASSISTANT: ANIBAL PAREDES M.D. CLIA NUMBER [id number] [place]. [id number] RPR REFLEX TO T. PALLIDUM - [id number] 08:07:41* Test Item Value Reference Range Interpretation Comme nts RPR (test code = 72448) NON-REACTIVE NON-REACTIVE RPR TITER (test code = 3500) NOT INDIC. TITER NOT INDIC. HIV 1/2 4TH GEN, RFLX [id number] 05:24:44* Test Item Value Reference Range Interpretation Comme nts HIV 1/2 4TH GEN, RFLX CONF ( test code = 3514) NON-REACTIVE NON-REACTIVE HIV 1/2 4TH GEN, RFLX [id number] 00:00:00* Test Item Value Reference Range Interpretation Comme nts HIV 1/2 4TH GEN, RFLX CONF ( test code = 3514) NON-REACTIVE Darryl F AustinVAGINAL PATHOGENS DNA [id number] 00:00:00* Test Item Value Reference Range Interpretation Comme nts JAZ SPECIES (test code = 63070) NEGATIVE G. VAGINALIS (test code = 00706) NEGATIVE T. VAGINALIS (test code = 86585) NEGATIVE Darryl Ackerman AustinRPR REFLEX TO T. PALLIDUM - [id number] 00:00:00* Test Item Value Reference Range Interpretation Comme nts RPR (test code = 46456) NON-REACTIVE RPR TITER (test code = 3500) NOT INDIC. TITER Darryl Ackerman AustinHPV HIGH RISK WITH GENOTYPE, [id number] 00:00:00* Test Item Value Reference Range Interpretation Comme nts HPV HIGH RISK INTERP (test c ode = 31339) POSITIVE HPV 16 (test code = 37472) POSITIVE HPV 18 (test code = 07652) NEGATIVE HPV, HR, OTHER GENOTYPES (te st code = 91718) NEGATIVE PDFE (test code = PDFReport) PDF Darryl Ackerman AustinCT/NG, TMA, [id number] 00:00:00* Test Item Value Reference Range Interpretation Comme nts CHLAMYDIA, NAAT, URINE (test code = 41234) POSITIVE GONORRHEA, NAAT, URINE (test code = 24995) NEGATIVE Darryl Ackerman AustinHIV 1/2 4TH GEN, RFLX [id number] 00:00:00* Test Item Value Reference Range Interpretation Comme nts HIV 1/2 4TH GEN, RFLX CONF ( test code = 3514) NON-REACTIVE Darryl F AustinVAGINAL PATHOGENS DNA [id number] 00:00:00* Test Item Value Reference Range Interpretation Comme nts JAZ SPECIES (test code = ) NEGATIVE G. VAGINALIS (test code = 29971) NEGATIVE T. VAGINALIS (test code = 70361) NEGATIVE Darryl Ackerman AustinHPV HIGH RISK WITH GENOTYPE, [id number] 00:00:00* Test Item Value Reference Range Interpretation Comme nts HPV HIGH RISK INTERP (test c ode = 96419) POSITIVE HPV 16 (test code = 44006) POSITIVE HPV 18 (test code = 34497) NEGATIVE HPV, HR, OTHER GENOTYPES (te st code = 67175) NEGATIVE PDFE (test code = PDFReport) PDF Darryl Ackerman AustinRPR REFLEX TO T. PALLIDUM - [id number] 00:00:00* Test Item Value Reference Range Interpretation Comme nts RPR (test code = 70375) NON-REACTIVE RPR TITER (test code = 3500) NOT INDIC. TITER Darrly Ackerman AustinCT/NG, TMA, [id number] 00:00:00* Test Item Value Reference Range Interpretation Comme nts CHLAMYDIA, NAAT, URINE (test code = 29611) POSITIVE GONORRHEA, NAAT, URINE (test code = 77124) NEGATIVE Darryl Ackerman AustinHIV 1/2 4TH GEN, RFLX [id number] 00:00:00* Test Item Value Reference Range Interpretation Comme nts HIV 1/2 4TH GEN, RFLX CONF ( test code = 3514) NON-REACTIVE Darryl WaggonerVAGINAL PATHOGENS DNA [id number] 00:00:00* Test Item Value Reference Range Interpretation Comme nts JAZ SPECIES (test code = ) NEGATIVE G. VAGINALIS (test code = 17835) NEGATIVE T. VAGINALIS (test code = 62690) NEGATIVE Darryl Ackerman AustinHPV HIGH RISK WITH GENOTYPE, [id number] 00:00:00* Test Item Value Reference Range Interpretation Comme nts HPV HIGH RISK INTERP (test c ode = 79957) POSITIVE HPV 16 (test code = 75275) POSITIVE HPV 18 (test code = 25337) NEGATIVE HPV, HR, OTHER GENOTYPES (te st code = 12729) NEGATIVE PDFE (test code = PDFReport) PDF Darryl Ackerman AustinRPR REFLEX TO T. PALLIDUM - [id number] 00:00:00* Test Item Value Reference Range Interpretation Comme nts RPR (test code = 43147) NON-REACTIVE RPR TITER (test code = 3500) NOT INDIC. TITER Darryl Ackerman AustinCT/NG, TMA, [id number] 00:00:00* Test Item Value Reference Range Interpretation Comme nts CHLAMYDIA, NAAT, URINE (test code = 26927) POSITIVE GONORRHEA, NAAT, URINE (test code = 57936) NEGATIVE Darryl WaggonerHIV 1/2 4TH GEN, RFLX [id number] 00:00:00* Test Item Value Reference Range Interpretation Comme nts HIV 1/2 4TH GEN, RFLX CONF ( test code = 3514) NON-REACTIVE Darryl WaggonerVAGINAL PATHOGENS DNA [id number] 00:00:00* Test Item Value Reference Range Interpretation Comme nts JAZ SPECIES (test code = 78935) NEGATIVE G. VAGINALIS (test code = 62479) NEGATIVE T. VAGINALIS (test code = 36201) NEGATIVE Darryl WaggonerHPV HIGH RISK WITH GENOTYPE, [id number] 00:00:00* Test Item Value Reference Range Interpretation Comme dada HPV HIGH RISK INTERP (test c ode = 00417) POSITIVE HPV 16 (test code = 17083) POSITIVE HPV 18 (test code = 52319) NEGATIVE HPV, HR, OTHER GENOTYPES (te st code = 13179) NEGATIVE PDFE (test code = PDFReport) PDF Darryl Ackerman AustinRPR REFLEX TO T. PALLIDUM - [id number] 00:00:00* Test Item Value Reference Range Interpretation Comme nts RPR (test code = 82835) NON-REACTIVE RPR TITER (test code = 3500) NOT INDIC. TITER Darryl Ackerman AustinCT/NG, TMA, [id number] 00:00:00* Test Item Value Reference Range Interpretation Comme nts CHLAMYDIA, NAAT, URINE (test code = 93787) POSITIVE GONORRHEA, NAAT, URINE (test code = 98139) NEGATIVE Darryl WaggonerCOMP. METABOLIC PANEL (16918)2023-05-28 07:12:09* Test Item Value Reference Range Interpretation Comme nts NA (test code = 1918530923) 138 mmol/L 135-145 K (test code = 9712165670) 3.6 mmol/L 3.5-5.0 CL (test code = 5983059728) 105 mmol/L 98-108 CO2 TOTAL (test code = 7227137586) 24 mmol/L 23-31 AGAP (test code = 4079346259) 9 2-16 BUN (test code = 5923922727) 8 mg/dL 7-23 GLUCOSE (test code = 2056274515) 94 mg/dL 70-110 CREATININE (test code = 6948488453) 0.90 mg/dL 0.50-1.04 TOTAL BILI (test code = 9259835724) 0.5 mg/dL 0.1-1.1 CALCIUM (test code = 0289669167) 9.2 mg/dL 8.6-10.6 T PROTEIN (test code = 6457731591) 7.8 g/dL 6.3-8.2 ALBUMIN (test code = 7238834349) 4.3 g/dL 3.5-5.0 ALK PHOS (test code = 0199997568) 91 U/L 34-122 ALTv (test code = 1742-6) 32 U/L 5-35 AST(SGOT) (test code = 9730935601) 48 U/L 13-40 H eGFR (test code = 7189915654) 73.0 mL/min/1.73m2 ELIA (test code = ELIA) [...] imaging tests). Lab Interpretation (test code = 15979-4) Abnormal [facility] WITH [id number] 06:45:45* Test Item Value Reference Range Interpretation Comme nts WBC (test code = 6690-2) 7.78 See_Comment [Automated Driftya [employer]] The system which generated this result transmitted reference range: 4.30 - 11.10 10*3/?L. The reference range was not used to interpret this result as normal/abnormal. RBC (test code = 789-8) 4.16 See_Comment [Automated Driftya Sinobpo] The system which generated this result transmitted [...] g/dL 31.6-35.1 L RDW-SD (test code = 20862-2) 49.8 fL 39.0-49.9 RDW-CV (test code = 788-0) 18.3 % 12.0-15.5 H PLT (test code = 777-3) 391 See_Comment H [Automated Driftya Sinobpo] The system which generated this result transmitted reference range: 166 - 358 10*3/?L. The reference range was not used to interpret this result as normal/abnormal. MPV (test code = 88514-7) 10.3 fL 9.5-12.9 NRBC/100 WBC (test code = 4998365861) 0.0 See_Comment [Automated me ssage] The system which generated this result transmitted reference range: 0.0 - 10.0 /100 WBCs. The reference range was not used to interpret this result as normal/abnormal. NRBC x10^3 (test code = 6128076990) See_Comment [Automated messa ge] The system which generated this result transmitted reference range: 10*3/?L. The reference range was not used to interpret this result as normal/abnormal. GRAN MAT (NEUT) % (test code = 770-8) 47.8 % IMM GRAN % (test code = 5320179726) 0.30 % LYMPH % (test code = 736-9) 39.1 % MONO % (test code = 5905-5) 8.5 % EOS % (test code = 713-8) 3.5 % BASO % (test code = 706-2) 0.8 % GRAN MAT x10^3(ANC) (test code = 8157452750) 3.73 10*3/uL 1.88-7.09 IMM GRAN x10^3 (test code = 3856949247) 0.00-0.06 LYMPH x10^3 (test code = 731-0) 3.04 10*3/uL 1.32-3.29 MONO x10^3 (test code = 742-7) 0.66 10*3/uL 0.33-0.92 EOS x10^3 (test code = 711-2) 0.27 10*3/uL 0.03-0.39 BASO x10^3 (test code = 704-7) 0.06 10*3/uL 0.01-0.07 Lab Interpretation (test code = 89770-5) [facility] [id number] 06:40:00* Test Item Value Reference Range Interpretation Comme nts POCT PREG (test code = 1605) Negative On board controls acceptable with C Line (test code = 3574) Yes POCT PREG LOT # (test code = 3575) [id number] POCT PREG TEST DATE ( test code = 3576) 10/17/2024 Lab Interpretation (test cod e = 63659-4) Normal [facility] [id number] 06:17:00* Test Item Value Reference Range Interpretation Comme nts POCT PREG (test code = 1605) Negative On board controls acceptable with C Line (test code = 3574) Present POCT PREG LOT # (test code = 3575) [id number] POCT PREG TEST DATE ( test code = 3576) Lab Interpretation (test cod e = 04763-6) Normal [facility] [id number] 18:58:00* Test Item Value Reference Range Interpretation Comme nts POCT PREG (test code = 1605) negative Lab Interpretation (test cod e = 46053-3) Normal [facility] WITH [id number] 13:14:57* Test Item Value Reference Range Interpretation [...] g/dL 31.6-35.1 L RDW-SD (test code = 01122-6) 46.2 fL 39-49.9 RDW-CV (test code = 788-0) 17.0 % 12-15.5 H PLT (test code = 777-3) See_Comment H [Automated messa ge] The system which generated this result transmitted reference range: 166 - 358 10*3/?L. The reference range was not used to interpret this result as normal/abnormal. MPV (test code = 68647-7) 9.1 fL 9.5-12.9 L NRBC/100 WBC (test code = 7714560941) See_Comment [Automated me ssage] The system which generated this result transmitted reference range: 0.0 - 10.0 /100 WBCs. The reference range was not used to interpret this result as normal/abnormal. NRBC x10^3 (test code = 6926853999) See_Comment [Automated messa ge] The system which generated this result transmitted reference range: 10*3/?L. The reference range was not used to interpret this result as normal/abnormal. GRAN MAT (NEUT) % (test code = 770-8) 51.3 % IMM GRAN % (test code = 7996349580) 0.40 % LYMPH % (test code = 736-9) 37.0 % MONO % (test code = 5905-5) 8.5 % EOS % (test code = 713-8) 2.2 % BASO % (test code = 706-2) 0.6 % GRAN MAT x10^3(ANC) (test code = 7007079645) 4.26 10*3/uL 1.88-7.09 IMM GRAN x10^3 (test code = 9615930527) 0.03 10*3/uL 0-0.06 LYMPH x10^3 (test code = 731-0) 3.06 10*3/uL 1.32-3.29 MONO x10^3 (test code = 742-7) 0.70 10*3/uL 0.33-0.92 EOS x10^3 (test code = 711-2) 0.18 10*3/uL 0.03-0.39 BASO x10^3 (test code = 704-7) 0.05 10*3/uL 0.01-0.07 Lab Interpretation (test code = 34198-3) Abnormal [facility] [id number] 12:55:00* Test Item Value Reference Range Interpretation Comme nts POCT PREG (test code = 1605) negative On board controls acceptable with C Line (test code = 3574) present Lab Interpretation (test cod e = 80050-8) [facility] [id number] 20:49:00* Test Item Value Reference Range Interpretation Comme nts POCT PREG (test code = 1605) negative On board controls acceptable with C Line (test code = 3574) yes POCT PREG LOT # (test code = 3575) [id number] POCT PREG TEST DATE ( test code = 3576) 08/14/2023 Lab Interpretation (test cod e = 11537-7) [facility] Antonio[facility] Metabolic [id number] 08:01:55* Test Item Value Reference Range Interpretation Comme nts NA (test code = 5558649633) 138 mmol/L 135-145 K (test code = 6927407792) 4.2 mmol/L 3.5-5 CL (test code = 2950936363) 107 mmol/L 98-108 CO2 TOTAL (test code = 6345814481) 20 mmol/L 23-31 L AGAP (test code = 4143624563) 2-16 BUN (test code = 3925635299) 10 mg/dL 7-23 GLUCOSE (test code = 0409883242) 105 mg/dL 70-110 CREATININE (test code = 1347253028) 0.86 mg/dL 0.5-1.04 TOTAL BILI (test code = 8287647577) 0.1-1.1 L CALCIUM (test code = 4623328988) 9.1 mg/dL 8.6-10.6 T PROTEIN (test code = 4178626021) 7.4 g/dL 6.3-8.2 ALBUMIN (test code = 6358443023) 4.8 g/dL 3.5-5 ALK PHOS (test code = 9035234823) 81 U/L 34-122 ALTv (test code = 1742-6) 17 U/L 5-35 AST(SGOT) (test code = 1262579451) 19 U/L 13-40 eGFR (test code = 5093544014) mL/min/1.73m2 ELIA (test code = ELIA) Association [...] imaging tests). Lab Interpretation (test code = 93165-5) [facility] Antonio[facility], [id number] 07:59:48* Test Item Value Reference Range Interpretation Comme [facility] LIPASE (test code = 3138066195) 94 U/L 0-220 Lab Interpretation (test cod e = 42935-0) Normal [facility] AntonioCBC with [id number] 07:47:29* Test Item Value Reference Range Interpretation Comme nts WBC (test code = 6690-2) See_Comment [Automated [employer]] The system which generated this result transmitted reference range: 4.30 - 11.10 10*3/?L. The reference range was not used to interpret this result as normal/abnormal. RBC (test code = 789-8) See_Comment [Automated [employer]] The system which generated this result transmitted [...] g/dL 31.6-35.1 L RDW-SD (test code = 55172-2) 40.2 fL 39-49.9 RDW-CV (test code = 788-0) 15.0 % 12-15.5 PLT (test code = 777-3) See_Comment [Automated Driftya ge] The system which generated this result transmitted reference range: 166 - 358 10*3/?L. The reference range was not used to interpret this result as normal/abnormal. MPV (test code = 58424-4) 10.1 fL 9.5-12.9 NRBC/100 WBC (test code = 5647647834) See_Comment [Automated [employer] ssage] The system which generated this result transmitted reference range: 0.0 - 10.0 /100 WBCs. The reference range was not used to interpret this result as normal/abnormal. NRBC x10^3 (test code = 7731520310) See_Comment [Automated Driftya ge] The system which generated this result transmitted reference range: 10*3/?L. The reference range was not used to interpret this result as normal/abnormal. GRAN MAT (NEUT) % (test code = 770-8) 46.6 % IMM GRAN % (test code = 8735002660) 0.40 % LYMPH % (test code = 736-9) 40.7 % MONO % (test code = 5905-5) 8.6 % EOS % (test code = 713-8) 3.3 % BASO % (test code = 706-2) 0.4 % GRAN MAT x10^3(ANC) (test code = 6371746764) 3.40 10*3/uL 1.88-7.09 IMM GRAN x10^3 (test code = 5394151046) 0.03 10*3/uL 0-0.06 LYMPH x10^3 (test code = 731-0) 2.97 10*3/uL 1.32-3.29 MONO x10^3 (test code = 742-7) 0.63 10*3/uL 0.33-0.92 EOS x10^3 (test code = 711-2) 0.24 10*3/uL 0.03-0.39 BASO x10^3 (test code = 704-7) 0.03 10*3/uL 0.01-0.07 Lab Interpretation (test code = 25093-3) Abnormal [facility] [id number] 07:37:00* Test Item Value Reference Range Interpretation Comme nts POCT PREG (test code = 1605) Negative On board controls acceptable with C Line (test code = 3574) Present POCT PREG LOT # (test code = 3575) [id number] POCT PREG TEST DATE ( test code = 3576) 08/14/2023 Lab Interpretation (test cod e = 49499-2) Normal [facility] [id number] 22:19:00* Test Item Value Reference Range Interpretation Comme nts POCT PREG (test code = 1605) NEGATIVE On board controls acceptable with C Line (test code = 3574) present POCT PREG LOT # (test code = 3575) [id number] POCT PREG TEST DATE ( test code = 3576) 07/14/2023 Lab Interpretation (test cod e = 47726-7) Normal [facility] [id number] 19:54:00* Test Item Value Reference Range Interpretation Comme nts POCT PREG (test code = 1605) negative On board controls acceptable with C Line (test code = 3574) present POCT PREG LOT # (test code = 3575) [id number] POCT PREG TEST DATE ( test code = 3576) 12/12/2022 Lab Interpretation (test cod e = 82680-6) [facility] 06:28:44* Test Item Value Reference Range Interpretation Comme nts FERRITIN (test code = 2075) 3 NG/ML 13-200 L [id number] 04:37:13* Test Item Value Reference Range Interpretation Comme nts TRANSFERRIN (test code = 4936) 385 MG/DL 200-360 H UNLESS OTHERWISE INDICATED, ALL TESTING PERFORMED [facility] [address] [place] [address] BEHAVIORAL HEALTH ASSISTANT: NICOLE GUSMAN M.D. CLIA NUMBER [id number] [facility] [place]. [id number] IRON BINDING CAPACITY AND IRON AND % [id number] 04:19:01* Test Item Value Reference Range Interpretation Comme nts IRON, SERUM (test code = 2221) 11 UG/DL 37-145 L UNSATURATED IBC (test code = ) 442 UG/DL 112-347 H CALC TOTAL IBC (test code = 7) 453 UG/DL 250-450 H CALC % IRON SAT (test code = 9) 2 % 20-50 L IRON BINDING CAPACITY AND IRON AND % [id number] 00:00:00* Test Item Value Reference Range Interpretation Comme nts IRON, SERUM (test code = 2221) 11 UG/DL UNSATURATED IBC (test code = ) 442 UG/DL CALC TOTAL IBC (test code = 7) 453 UG/DL CALC % IRON SAT (test code = 9) 2 % Darryl F [id number] 00:00:00* Test Item Value Reference Range Interpretation Comme nts FERRITIN (test code = 2075) 3 NG/ML Darryl F [id number] 00:00:00* Test Item Value Reference Range Interpretation Comme nts TRANSFERRIN (test code = 4936) 385 MG/DL Darryl F AustinIRON BINDING CAPACITY AND IRON AND % [id number] 00:00:00* Test Item Value Reference Range Interpretation Comme nts IRON, SERUM (test code = 2221) 11 UG/DL UNSATURATED IBC (test code = 08906) 442 UG/DL CALC TOTAL IBC (test code = 7) 453 UG/DL CALC % IRON SAT (test code = 9) 2 % [id number] 00:00:00* Test Item Value Reference Range Interpretation Comme nts FERRITIN (test code = 2075) 3 NG/ML [id number] 00:00:00* Test Item Value Reference Range Interpretation Comme nts TRANSFERRIN (test code = 4936) 385 MG/DL IRON BINDING CAPACITY AND IRON AND % [id number] 00:00:00* Test Item Value Reference Range Interpretation Comme nts IRON, SERUM (test code = 2221) 11 UG/DL UNSATURATED IBC (test code = 16581) 442 UG/DL CALC TOTAL IBC (test code = 2076) 453 UG/DL CALC % IRON SAT (test code = 2078) 2 % IRON BINDING CAPACITY AND IRON AND % [id number] 00:00:00* Test Item Value Reference Range Interpretation Comme nts IRON, SERUM (test code = 2221) 11 UG/DL UNSATURATED IBC (test code = 58785) 442 UG/DL CALC TOTAL IBC (test code = 2076) 453 UG/DL CALC % IRON SAT (test code = 2078) 2 % Darryl F [id number] 00:00:00* Test Item Value Reference Range Interpretation Comme nts FERRITIN (test code = 5) 3 NG/ML [id number] 00:00:00* Test Item Value Reference Range Interpretation Comme nts TRANSFERRIN (test code = 4936) 385 MG/DL [id number] 00:00:00* Test Item Value Reference Range Interpretation Comme nts FERRITIN (test code = 5) 3 NG/ML Darryl F [id number] 00:00:00* Test Item Value Reference Range Interpretation Comme nts TRANSFERRIN (test code = 4936) 385 MG/DL Darryl F AustinIRON BINDING CAPACITY AND IRON AND % [id number] 00:00:00* Test Item Value Reference Range Interpretation Comme nts IRON, SERUM (test code = 2221) 11 UG/DL UNSATURATED IBC (test code = 13036) 442 UG/DL CALC TOTAL IBC (test code = 2076) 453 UG/DL CALC % IRON SAT (test code = 2078) 2 % Darryl F [id number] 00:00:00* Test Item Value Reference Range Interpretation Comme nts FERRITIN (test code = 5) 3 NG/ML Darryl F [id number] 00:00:00* Test Item Value Reference Range Interpretation Comme nts TRANSFERRIN (test code = 4936) 385 MG/DL Darryl F AustinIRON BINDING CAPACITY AND IRON AND % [id number] 00:00:00* Test Item Value Reference Range Interpretation Comme nts IRON, SERUM (test code = 2222) 11 UG/DL UNSATURATED IBC (test code = 18149) 442 UG/DL CALC TOTAL IBC (test code = 7) 453 UG/DL CALC % IRON SAT (test code = 2079) 2 % Darryl [id number] 00:00:00* Test Item Value Reference Range Interpretation Comme nts FERRITIN (test code = 2075) 3 NG/ML Darryl [id number] 00:00:00* Test Item Value Reference Range Interpretation Comme nts TRANSFERRIN (test code = 4936) 385 MG/DL Darryl WaggonerTSH, THIRD [id number] 06:15:03* Test Item Value Reference Range Interpretation Comme nts TSH, THIRD GENERATION (test code = 2821) 0.675 UIU/ML 0.400-4.100 UNLESS OTHERWISE INDICATED, ALL TESTING PERFORMED [facility] [email or web address] [address] [place] [address] BEHAVIORAL HEALTH ASSISTANT: NICOLE GUSMAN M.D. CLIA NUMBER [id number] [facility] [place] [place]. [id number] CBC W/AUTO DIFF WITH [id number] 02:57:36* Test Item Value Reference Range Interpretation [...] 0.00-0.10 ABS NUCLEATED RBCS (test code = 13878) 0.00 K/UL 0.00-0.11 CBC W/AUTO [id number] 00:00:00* Test Item Value Reference Range Interpretation [...] ABS NUCLEATED RBCS (test cod e = 82875) 0.00 K/UL Darryl [id number] 00:00:00* Test Item Value Reference Range Interpretation Comme nts TSH, THIRD GENERATION (test code = 2821) 0.675 UIU/ML Darryl WaggonerCBC W/AUTO [id number] 00:00:00* Test Item Value Reference Range Interpretation [...] ABS NUCLEATED RBCS (test cod e = 32742) 0.00 K/UL [id number] 00:00:00* Test Item Value Reference Range Interpretation Comme nts TSH, THIRD GENERATION (test code = 2821) 0.675 UIU/ML CBC W/AUTO [id number] 00:00:00* Test Item Value Reference Range Interpretation [...] ABS NUCLEATED RBCS (test cod e = 12799) 0.00 K/UL Darryl WaggonerCBC W/AUTO [id number] 00:00:00* Test Item Value Reference Range Interpretation [...] ABS NUCLEATED RBCS (test cod e = 49936) 0.00 K/UL [id number] 00:00:00* Test Item Value Reference Range Interpretation Comme nts TSH, THIRD GENERATION (test code = 2821) 0.675 UIU/ML [id number] 00:00:00* Test Item Value Reference Range Interpretation Comme nts TSH, THIRD GENERATION (test code = 2821) 0.675 UIU/ML [facility] [id number] 00:00:00* Test Item Value Reference Range Interpretation [...] ABS NUCLEATED RBCS (test cod e = 76092) 0.00 K/UL Darryl [id number] 00:00:00* Test Item Value Reference Range Interpretation Comme nts TSH, THIRD GENERATION (test code = 2821) 0.675 UIU/ML Darryl WaggonerCBC W/AUTO [id number] 00:00:00* Test Item Value Reference Range Interpretation [...] ABS NUCLEATED RBCS (test cod e = 19007) 0.00 K/UL Darryl [id number] 00:00:00* Test Item Value Reference Range Interpretation Comme nts TSH, THIRD GENERATION (test code = 2821) 0.675 UIU/ML Darryl Waggoner Notes Date/Time Note Provider Source Darryl Arriaga [facility]2024-10-11 10:46:00 Written/verbal D/c instructions, out of er no distress, [place] [address]-10-11 10:30:00 Pt has had no emesis since arrival [place] [address]-10-11 07:48:10 Mini Zhu is a 33 year old female c/o n/v/d since Sunday, states this morning at 0700 threw up blood, no abdominal pain, states now has a headache, alert cheerful, states hx gastritis, esophagitis and iron def anemia, ran out of pantoprazole and takes iron occasionally. States her bipolar meds aren't staying down either, [facility] Sheila Starkey [facility]Sbiuak3314-71-79 00:00:00 Darryl Arriaga [facility]2024-09-20 05:48:27 Discharge information given verbally and in writing, including of s/s of when to return to ER Patient denies questions and verbalized understanding. IV discontinued without issue. Pt ambulated off unit with steady gate, vital signs stable, no acute distress. Jovana Hooper [facility] HospitalGjptsk7065-78-44 02:26:00 Lower abd pain since midnight, and back pain, pt states she has shingles and has been using tropical cream for tx. [facility]cxwmu2614-44-03 00:00:00 Darryl Arriaga [facility]2024-05-29 06:06:53 Pt given printed and verbal discharge [...] in no apparent distress. T Ashly Srivastava [facility] HospitalNvmvcz2121-40-47 02:07:22 Pt given urine cup and placed in the lobby, pt advice to notify nurse with any other concerns or if symptoms worsen. T [facility] CampusGzrycd0767-32-13 02:02:32 C/O states that she began vomited blood X5 since midnight. 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 Kait Seay [facility] HospitalCzqlet7730-36-47 03:51:00 [facility] Emergency Department Note Patient Name: Mini Zhu Date of : 1990 33 year old female Treatment Room: TX5/TX5 Primary Care Physician: Rachelle Ackerman [facility] Patient Escorted by: Family [5] Mode of Arrival: Personal means [1] EMS Treatment Prior to ED Arrival: [employer] DEPARTMENT treatment: None Travel and Exposure Screening: Symptoms [...] by: Patient, medical records and significant other unit receptionist used: No Abdominal Pain Pain location: Generalized [...] Lab Results: Lab Results COMP. METABOLIC PANEL (48529) - Abnormal Result Value Ref Range NA [...] then 250 mg days 2 to 5. FAMYDHFARE-MOPJWYSHWVPWV-OUGS 50-325-40 MG TABLET Take 1 tablet by [...] for follow-up Tommie Arita MD Specialty: IM-GASTROENTEROLOGY [facility] [address] [facility] [id number] Electronically signed by: Selene Parra MD 02/03/2458 T [place] 606614-03-20 00:43:46 Pt given printed and verbal discharge [...] in no apparent distress, T Ashly Gibson [place] 621284-03-20 00:31:47 Pt notified covid test was inconclusive. She refuses additional covid swabbing. She reports continuing head congestion. Dr. Marie in to see pt at this time. T [place] 606614-03-19 22:22:36 Pt arrived ambulatory with c/o congestion. Pt states I have bad congestion, sneezing, coughing and headache. No fever. I vomited once prior to coming to the ED." Duyen Pereira [place] 621284-03-13 05:22:47 Awake, alert oriented X4, respiratory even [...] noted upon discharge [facility] Kait Seay [facility] HospitalDycccz8957-37-94 03:48:35 Pt arrived with c/ migraine headache off-and-on for 7 days. Pt took Midol at 6:30pm. Pt report the Midol help for about 30 minutes then the headache came back. Pt states she has tried Ibu, tylenol, and naproxen but none of these medications have helped her migraine. Nicole Patel [facility] CampusJcvfed7622-76-51 03:43:00 [facility] Emergency Department Note Patient Name: Mini Zhu Date of : 1990 33 year old female Treatment Room: [facility] FT02/[id number] Primary Care Physician: Rachelle Ackerman [facility] Patient Escorted by: Family [5] Mode of Arrival: Personal means [1] EMS Treatment Prior to ED Arrival: [employer] DEPARTMENT treatment: None Travel and Exposure Screening: Symptoms [...] History provided by: Patient and medical records unit receptionist used: No Headache Pain location: Frontal Quality: [...] this encounter. Orders Placed This Encounter Medications sfmmhkgysx-gfiwsgdpndngh-flnp (ESGIC) 50-325-40 mg tablet 1 tablet First [...] Follow-up: Contact information for follow-up Darryl Waggoner [facility] Relationship: P[place] [phone] Demetrio Stout MD Specialty: PN-NEUROLOGY [facility] [address] [place] [phone] Electronically signed by: Selene Parra MD 12/26/23 0440 [facility] hospitalRblvaz9295-36-83 10:50:14 Patient discharged home. Follow up with pcp in 2-3 days. Return with worsening symptoms. Verbalized dc instructions. Signed paper work. Davis [facility] HospitalBtiofv6731-79-79 06:42:12 Bilateral lower abdominal pain on and off for month. Pain started this morning at 1230 and hasn't stopped. Saw by OB, US ordered pt unable to pay for it. Was instructed to got to ER if got worse. Vomited 3 time this am Paniagua [facility] HospitalWaynlf1328-25-60 01:09:27 Pt given printed and verbal discharge [...] steady gait, in no apparent distress. [place] 621284-01-29 00:35:00 PO challenge completed. Patient tolerating water and crackers. [place] 152514-01-29 00:06:08 Patient arrived ambulatory to ED c/o vomiting. Patient states vomiting up her dinner and then vomiting "bright red chunks." Diarrhea x a couple of days. No medications taken [employer] DEPARTMENT. Keen [place] 621284-01-29 00:03:00 [facility] Emergency Department Note Patient Name: Mini Zhu Date of : 1990 32 year old female Treatment Room: Room/bed info not found Primary Care Physician: Rachelle Ackerman [facility] Patient Escorted by: Family [5] Mode of Arrival: Personal means [1] EMS Treatment Prior to ED Arrival: [employer] DEPARTMENT treatment: None Travel and Exposure Screening: Symptoms [...] 200 mg capsule Comments: Reason for Stopping: gvuloxkzcn-cvrnbkcnqcviq-kgmq 50-325-40 mg tablet Comments: Reason for Stopping: megestroL 40 mg tablet Comments: Reason for Stopping: tamsulosin 0.4 mg 24 hr capsule Comments: Reason for Stopping: ketorolac 10 mg tablet Comments: Reason for Stopping: Follow-up: Electronically signed by: Chayo Srivastava DO 11/12/23 0104 [facility]2024-01-13 20:56:44 Pt discharged home, given all education and information regarding s/s of worsening condition; prescription use; pain and fever management as well as the importance of follow up. Pt verbalized understanding. Alert and ambulatory to [facility] with family. Felix RNWay[facility] CampusBgglab1932-57-97 20:24:32 Pt arrived ambulatory with complaints of viral symptoms x2 days. Pt is positive and she took home test today and is positive too. Pt was concerned because her fever was 101 and her husbands only hit 100f. Pt has n/v but hasn't taken her Zofran. [place] [facility] HospitalPutxaz8773-43-76 06:48:38 Prescriptions provided Pt verbalized understanding of [...] with steady gait, in no apparent distress. [facility]2023-09-10 05:26:28 Pt arrives ambulatory to ED c/o left sided lower abdominal pain. She reports that she came in last week and was found to have multiple gynecological issues and was given multiple prescriptions which she says has not helped her pain issue. LMP: 06/12/2023 [facility] Ashly Srivastava [facility] HospitalOzalpj3323-04-91 05:14:00 [facility] Emergency Department Note Patient Name: Mini Zhu Date of : 1990 32 year old female Treatment Room: [facility] [id number] Primary Care Physician: Rachelle Ackerman [facility] Patient Escorted by: Family [5] Mode of Arrival: Personal means [1] EMS Treatment Prior to ED Arrival: [employer] DEPARTMENT treatment: None Travel and Exposure Screening: Symptoms [...] by: Patient, medical records and significant other unit receptionist used: No Abdominal Pain Pain location: LLQ [...] (three) times daily as needed for Cough. HALWLYREZG-GEKAXKJDFQWNA-GGGD 50-325-40 MG TABLET Take 1 tablet by [...] Jaime Rebolledo MD Specialty: ORT-ORTHOPAEDIC SURGERY [address] [facility] [id number] Electronically signed by: Selene Parra MD 06/24/23632 [facility]2023-09-04 01:30:00 Awake, alert oriented X4, respiratory even [...] noted upon discharge Pt ambulated [facility] with steady gait [facility]2023-09-03 23:50:11 C/O head congestion, chest congestion, body aches, sore throat since last Sunday, pt denies any fever. Kait Chris Seay [facility] - Sxxagx0577-06-38 23:45:00 [facility] Emergency Department Note Patient Name: Mini Zhu Date of : 1990 32 year old female Treatment Room: Room/bed info not found Primary Care Physician: Rachelle Ackerman [facility] Patient Escorted by: Family [5] Mode of Arrival: Personal means [1] EMS Treatment Prior to ED Arrival: [employer]PER[employer] DEPARTMENT treatment: None Travel and Exposure Screening: Symptoms [...] clinic, negative x2. Recent encounters: 1. 06/11/23. [facility] ED. Pelvic pain. PID prophylaxis in ED. US Pelvis, fibroid, right ovarian cyst, notorsion, thickened endometrium 2. 06/11/23. [facility]. After ED encounter. Previously scheduled appointment. Trichomonas. [...] taking these medications which have NOT CHANGED FKTNTJPBQK-KSXVYEIYRTKEK-UKTB 50-325-40 MG TABLET Take 1 tablet by [...] PCP Electronically signed by: Michelle Terry MD 06/18/233 [facility]2023-08-29 04:46:51 Pt given printed and verbal discharge [...] no apparent distress, accompanied by her . [place] 115883-08-28 23:09:00 Patient states: "I've been having suprapubic pain for about a week now, worst was since . 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 I took Midol an hour ago for my painbut no relief." [facility] Yenny Blevins [place] 621283-08-28 23:06:00 [facility] ED Transfer of Care Note. Off-going [...] components within normal limits COMP. METABOLIC PANEL (66125) - Abnormal; Notable for the following components: [...] Severe endometrial thickening measuring 2.5 cm. AFC: 82120 RL: 460 End of report. Additional Notes: Diagnosis/Impression as of 06/12/23431 Pelvic pain Right ovarian cyst Intramural leiomyoma of uterus - (Uterine Fibroid) Endometrial hyperplasia Chronic anemia Medical Decision Making Mini Zhu is a 32 year old female whopresents to the ED with pelvic pain Problems Addressed: Chronic anemia: chronic illness or injury Endometrial hyperplasia: chronic illness or injury Details: Will need [employer]OR [employer]PATIENT SERVICES follow-up Pt appropriately referred to [facility] Intramural leiomyoma of uterus: chronic illness or injury Details: Will need DIRECTOR OUTPATIENT SERVICES follow-up Right ovarian cyst: chronic illness or [...] Aysha Chandra MD Specialty: OG-OBSTETRICS & GYNECOLOGY [facility] [address] [place] [address] DR. Lechuga [facility] [address] Selene Parra MD 06/12/23431 [facility]2023-08-14 04:02:21 Pt given printed and verbal discharge [...] with steady gait, in no apparent distress. [facility]2023-08-14 01:27:07 Pt vomited approx 200ml of water and bile. No blood noted. [place] 115883-08-14 00:35:04 Pt arrived ambulatory with complaints of one episode of vomiting blood. Pt reports she became nauseated and at first threw up bile but then threw up dark red blood. Pt denies dark stools or excessiveNSAID use. Pt has been having intermittent abdominal pain for a week. Hx: Migraines, Bipolar, Anemia [facility] Cora [facility]
[2024-09-03] MEDS ORDERED: ACETAMINOPHEN 500 MG TAB ONE (23:18)
--- NOTE | 2024-09-04 00:58 | EDPHYS ---
Physician Documentation [facility] [place] Name: Judith Tobar Age: 33 yrs Sex: Female : 1990 Arrival Date: 09/03/2024 Time: 22:51 Bed DX3 Private MD: ED Physician Phil Sotelo HPI: 09/03 23:10 This 33 yrs old Female presents to ER via Ambulatory with complaints of Ankle Injury. cp 23:10 The patient presents with an injury, pain, that is acute. The complaints affect the cp right ankle. Onset: The symptoms/episode began/occurred today. Context: resulted from a mis-step by the patient, while walking down stairs, The patient can fully bear weight on the affected extremity. the patient is able to ambulate, with mild difficulty. Associated signs and symptoms: The patient has no apparent associated signs or symptoms. 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 - Infectious Disease History:: Denies. - Social history:: Smoking status: Reported history of juuling and/or vaping. Patient/guardian denies using alcohol, street drugs. ROS: 23:15 Constitutional: History per HPI cp 23:15 Neck: Negative for pain with movement, pain at rest, cp 23:15 Back: Negative for pain at rest, pain with movement, 23:15 MS/extremity: Positive for pain, of the right ankle, Negative for decreased range of motion, deformity, paresthesias, 23:15 Neuro: Negative for numbness, 23:15 All other systems are negative, Exam: 23:20 Constitutional: The patient appears in no acute distress, alert, awake, well developed, cp well nourished, uncomfortable, 23:20 Head/Face: Normocephalic, atraumatic. cp 23:20 Neck: ROM/movement: is normal, is supple, without pain, no range of motions limitations, 23:20 Chest/axilla: Inspection: normal, 23:20 Cardiovascular: Rate: normal, 23:20 Respiratory: the patient does not display signs of respiratory distress, Respirations: normal, no use of accessory muscles, no retractions, 23:20 Abdomen/GI: Exam negative for discomfort, distension, guarding, Inspection: abdomen appears normal, 23:20 Back: pain, is absent, ROM is normal, 23:20 Musculoskeletal/extremity: Extremities: noted in the right ankle: tenderness and pain anterior and medial side right ankle, skin intact with minimal ecchymosis and swelling, There is no evidence of decreased ROM, deformity, ROM: limited passive range of motion due to pain, in the right ankle, Perfusion: the extremity is normally perfused throughout, the right ankle Sensation intact. Vital Signs: 23:01 BP 119 / 85; Pulse 84; Resp 17 S; Temp 97.5(O); Pulse Ox 100% ; Weight 84.82 kg (R); lg3 Height 5 ft. 2 in. ; Pain 8/10; 09/04 01:21 BP 127 / 81; Pulse 88; Resp 16 S; Temp 97.9(O); Pulse Ox 100% on R/A; lg3 11 23:01 Body Mass Index 34.20 (84.82 kg, 157.48 cm) lg3 09/03 23:01 Pain Scale: Adult lg3 MDM: 00:00 Differential diagnosis: fracture, sprain, dislocation, foot fracture, Achilles rupture. 00:39 Independent interpretation of the following test(s) in the Emergency Department X-Ray: My interpretation is images of right ankle negative for fracture. 00:57 Medical Screening Exam initiated 00:57 Data reviewed: vital signs, nurses notes, radiologic studies, plain films. 00:57 I considered the following discharge prescriptions or medication management in the emergency department Medications were administered in the Emergency Department. See MAR. Counseling: I had a detailed discussion with the patient and/or guardian regarding the historical points, exam findings, and any diagnostic results supporting the discharge/admit diagnosis, radiology results, to return to the emergency department if symptoms worsen or persist or if there are any questions or concerns that arise at home. Response to treatment: the patient's symptoms have mildly improved after treatment, and as a result, I will discharge patient. 09/03 23:08 Order name: XRAY Ankle RIGHT 3 view cp 09/04 00:31 Order name: Aircast Ankle Splint; Complete Time: 01:16 cp 09/04 00:31 Order name: Dale wrap-joint; Complete Time: 01:12 cp 09/04 00:31 Order name: Crutches; Complete Time: 01:12 cp Administered Medications: 09/03 23:21 Drug: Acetaminophen PO 1000 mg PO once Route: PO; lg3 09/04 01:24 Follow up: Response: No adverse reaction lg3 Disposition: 19:51 Co-signature as Attending Physician, Phil Sotelo MD I agree with the assessment sp4 and plan of care. I reviewed the patient's care provided by the Advanced Practice Provider and agree with the diagnosis and treatment plan. Disposition Summary: 09/04/24 00:57 Discharge Ordered Notes: Location: Home cp Problem: new cp Symptoms: have improved cp Condition: Stable cp Diagnosis - Sprain of ankle - right cp Followup: cp - With: Private Physician - When: 5 - 6 days - Reason: pain continues Discharge Instructions: - Discharge Summary Sheet cp - Elastic Bandage and RICE Therapy cp - Ankle Sprain cp Forms: - Medication Reconciliation Form cp - Antibiotic Education cp - Prescription Opioid Use cp - Patient Portal Instructions cp - Leadership Thank You Letter cp Prescriptions: - Anaprox DS 550 mg Oral Tablet - take 1 tablet ORAL route every 12 hours As needed; 20 tablet; Refills: 0, cp Product Selection Permitted Signatures: Dispatcher [employer] EDMS Dick Driscoll PA PA cp Able, Lacie, RN RN susan3 Phil Sotelo MD MD sp4 Corrections: (The following items were deleted from the chart) 09/03 23:07 23:04 Home Meds: Abilify Oral; lg3 lg3 23:34 23:29 Constitutional: The patient appears in no acute distress, alert, awake, cp non-toxic, well developed, well nourished, uncomfortable, cp 23:34 23:29 Head/Face: Normocephalic, atraumatic. cp cp 23:34 23:29 Eyes: Periorbital structures: appear normal, Pupils: equal, round, and reactive cp to light and accomodation, Extraocular movements: intact throughout, Conjunctiva: mild injection of right conjunctiva. Corneas: abrasion, that is moderate sized, lower area of cornea, foreign body, is not appreciated, a fluorescein strip employed to appreciate the findings, Sclera: abrasion, superior aspect of right eye, no foreign bodies noted, Anterior chamber: normal, no hyphema, Lids and lashes: lower and upper lids everted and no foreign bodies noted. Visual harris: are intact, Examination of the other eye reveals no obvious gross abnormality, cp 23:34 23:29 ENT: External ear(s): are unremarkable, Nose: is normal, Mouth: Lips: moist, Oral cp mucosa: pink and intact, moist, Posterior pharynx: Airway: no evidence of obstruction, patent, cp 23:34 23:29 Chest/axilla: Inspection: normal, cp cp 23:34 23:29 Cardiovascular: Rate: normal, cp cp 23:34 23:29 Respiratory: the patient does not display signs of respiratory distress, cp Respirations: normal, no use of accessory muscles, no retractions, labored breathing, is not present, Breath sounds: are clear throughout, no decreased breath sounds, cp 23:34 23:29 Skin: cellulitis, is not appreciated, no rash present. cp cp
--- NOTE | 2024-09-04 00:58 | ER ---
Nurse's Notes [facility] Tori Name: Judith Tobar Age: 33 yrs Sex: Female : 1990 Arrival Date: 09/03/2024 Time: 22:51 Bed DX3 Private MD: Diagnosis: Sprain of ankle-right Presentation: 09/03 23:01 Chief complaint: Patient states: rolled right ankle walking from concrete to grass. lg3 Coronavirus screen: Client denies travel out of the [place] in the last 14 days. At this time, the client does not indicate any symptoms associated with coronavirus-19. Ebola Screen: No symptoms or risks identified at this time. Initial Sepsis Screen: Does the patient meet any 2 criteria? No. Patient's initial sepsis screen is negative. Does the patient have a suspected source of infection? No. Patient's initial sepsis screen is negative. Risk Assessment: Do you want to hurt yourself or someone else? Patient reports no desire to harm self or others. Onset of symptoms was September 03, 2024. 23:01 Method Of Arrival: Ambulatory lg3 23:01 Acuity: SHABBIR 4 lg3 Triage Assessment: 23:04 General: Appears in no apparent distress. comfortable, Behavior is calm, cooperative. lg3 Pain: Complains of pain in right ankle. EENT: No deficits noted. No signs and/or symptoms were reported regarding the EENT system. Neuro: No deficits noted. Rice Agitation-Sedation Scale (RASS): 0 - Alert and Calm Level of Consciousness is awake, alert, obeys commands, Oriented to person, place, time, situation. Cardiovascular: No deficits noted. Denies chest pain, shortness of breath, Capillary refill < 3 seconds Clubbing of nail beds is absent JVD is absent Patient's skin is warm and dry. Respiratory: No deficits noted. Airway is patent Respiratory effort is even, unlabored, Respiratory pattern is regular, symmetrical. GI: No deficits noted. No signs and/or symptoms were reported involving the gastrointestinal system. : No signs and/or symptoms were reported regarding the genitourinary system. Derm: No deficits noted. No signs and/or symptoms reported regarding the dermatologic system. Skin is intact, is healthy with good turgor, Skin is dry, Skin is normal, Skin temperature is warm. Musculoskeletal: Circulation, motion, and sensation intact. Range of motion: intact in all extremities, Reports pain in right ankle. ALTERNATIVE DISPUTE RESOLUTION MEDIATOR: 23:04 LMP 08/15/2024, unknown lg3 Historical: - Allergies: 23:04 No Known Allergies; lg3 - Home Meds: 23:04 Celexa 40 mg Oral tablet daily [Active]; Abilify 30 mg Oral tablet daily [Active]; lg3 hydroxyzine HCl 25 mg Oral tablet 2 times per day [Active]; lithium carbonate 600 mg Oral capsule 2 times per day [Active]; Trazodone Oral [Active]; - PMHx: 23:04 Anemia; Anxiety; Bipolar disorder; insommnia; lg3 - PSHx: 23:04 breast surgery due to mastitis; tubal; lg3 - Immunization history:: Adult Immunizations up to date. - Infectious Disease History:: Denies. - Social history:: Smoking status: Reported history of juuling and/or vaping. Patient/guardian denies using alcohol, street drugs. Screenin:[address] [facility] ED Fall Risk Assessment (Adult) History of falling in the last 3 months, lg3 including since admission No falls in past 3 months (0 pts) Confusion or Disorientation No (0 pts) Intoxicated or Sedated No (0 pts) Impaired Gait No (0 pts) Mobility Assist Device Used No (0 pt) Altered Elimination No (0 pt) Score/Fall Risk Level 0 - 2 = Low Risk Oriented to surroundings, Maintained a safe environment, Educated pt \T\ family on fall prevention, incl call for assistance when getting out of bed, Assessed \T\ reinforced patient's understanding of fall precautions. Abuse screen: Denies threats or abuse. Denies injuries from another. Nutritional screening: No deficits noted. Tuberculosis screening: No symptoms or risk factors identified. Assessment: 23:08 General: see triage assessment. lg3 09/04 01:21 Reassessment: Patient appears in no apparent distress at this time. No changes from lg3 previously documented assessment. Patient and/or family updated on plan of care and expected duration. Pain level reassessed. Patient is alert, oriented x 3, equal unlabored respirations, skin warm/dry/pink. Vital Signs: 09/03 23:01 BP 119 / 85; Pulse 84; Resp 17 S; Temp 97.5(O); Pulse Ox 100% ; Weight 84.82 kg (R); lg3 Height 5 ft. 2 in. ; Pain 8/; 09/04 01:21 BP 127 / 81; Pulse 88; Resp 16 S; Temp 97.9(O); Pulse Ox 100% on R/A; lg3 09/03 23:01 Body Mass Index 34.20 (84.82 kg, 157.48 cm) lg3 09/03 23:01 Pain Scale: Adult lg3 ED Course: 09/03 22:53 Patient arrived in ED. [id number] 22:58 Dick Driscoll PA is PHCP. cp 22:58 Phil Sotelo MD is Attending Physician. cp 23:04 Triage completed. lg3 23:04 Arm band placed on right wrist. lg3 23:08 Patient has correct armband on for positive identification. lg3 23:48 XRAY Ankle RIGHT 3 view In Process Unspecified. EDMS 09/04 01:21 No provider procedures requiring assistance completed. Patient did not have IV access lg3 during this emergency room visit. Crutch training done. Dale wrap to right ankle Air stirrup applied to right ankle. Administered Medications: 09/03 23:21 Drug: Acetaminophen PO 1000 mg PO once Route: PO; lg3 09/04 01:24 Follow up: Response: No adverse reaction lg3 Medication: 09/03 23:08 VIS not applicable for this client. lg3 Outcome: 09/04 00:57 Discharge ordered by MD. cp 01:21 Discharged to home ambulatory, with crutches, lg3 01:21 Condition: stable 01:21 Discharge instructions given to patient, Instructed on discharge instructions, follow up and referral plans. medication usage, crutch walking, Demonstrated understanding of instructions, follow-up care, medications, crutch walking, splint care, Prescriptions given X 1, 01:23 Patient left the ED. lg3 Signatures: Dispatcher [employer] EDCT Dick Driscoll PA PA cp Able, Lacie, RN RN lg3 Dacia Burk [email or web address] Corrections: (The following items were deleted from the chart) 09/03 23:07 23:04 Home Meds: Abilify Oral; lg3 lg3
[2024-09-04 01:56] VITALS: O2SAT 100
[2024-09-04 01:57] VITALS: BP 127/81; TEMP 97.9
--- NOTE | 2024-09-04 05:57 | RAD REPORT ---
EXAM DESCRIPTION: XR ANKLE 3 VIEWS RIGHT CLINICAL HISTORY: Pain. TECHNIQUE: Three x-ray views of the right ankle were submitted. COMPARISON: XR Ankle 02/12/2019 FINDINGS: There is no acute fracture or dislocation. Bone mineralization is within normal limits. There is no r adiopaque foreign body material. IMPRESSION: No acute fracture or dislocation. Electronically signed by: Flakito Rae MD 09/04/2024 12:07 AM [facility] Due to temporary technical issues with the PACS/[employer] reporting system, reports are being samira d by the in-house radiologist without review as a courtesy to ensure prompt reporting the interpreting radiologist is fully responsible for the content of the report. Transcribed Date/Time: 09/04/2024 5:57 AM
== END 2024-09-04 01:23 | disposition home or self-care (01) ==
LOC: ER 22:51
DX: S93.401A Sprain of unspecified ligament of right ankle, initial encounter (principal)
CPT/HCPCS: 99284

== ENCOUNTER 2024-10-10 05:58 | Emergency (ER) | payer SELFPAY ==
--- OUTSIDE RECORDS SUMMARY | 2024-10-10 06:05 | XMS REPORT | Continuity of Care Document ---
Author Name Unknown Address [address] [facility] [address] [place] [address] [facility]connect Address [address] [facility] [address] [place] [address] Care Team Providers Care Supervisor Machining Name Role Phone Liratj CURRAN, Ashley Primary Care Physician [phone] DONI MARIE Attending Clinician Unavailable DNOI MARIE Attending Clinician Unavailable Doni Marie MD Attending Clinician [phone] SELENE PARRA Attending Clinician Unavailable SELENE PARRA Attending Clinician Unavailable Selene Parra MD Attending Clinician [phone] CHAYO SRIVASTAVA Attending Clinician UnavailChayo Mueller DO Attending Clinician [phone] Kavita AVILES Attending Clinician Unavailable Kavita Young Attending Clinician [phone] CHRISTY RG Attending Clinician Unavailable Danie Delarosa Attending Clinician Christy Rg NP Attending Clinician [phone] MEMO RESENDIZ Attending Clinician Unavailable Memo Resendiz MD Attending Clinician [phone] DANII NEFF Attending Clinician Unavailable Luis Eduardo ANDERSON, Rose Attending Clinician [phone] Danii Ferrer Attending Clinician [phone] MICHELLE KUO Attending Clinician UnavailMichelle Evans MD Attending Clinician + [phone] RAVEN DONNELLY Attending Clinician Unavailable Raven Gutiérrez S Attending Clinician [phone] Doctor Unassigned, [place] Attending Clinician U orlandoHERMILO Corona Attending Clinician Unavailable Hermilo Manuel DO Attending Clinician [phone] SURAJ HUNTER Attending Clinician UnavailSuraj Kee MD Attending Clinician + [phone] CAT NGUYEN Attending Clinician Unavailable LISA TRAN Attending Clinician Unavailable Lisa Cruz Attending Clinician + [phone] CL GATES Attending Clinician Unavailable ROCHELLE GOLD Attending Clinician Unavailable DONI MARIE Admitting Clinician Unavailable SELENE PARRA Admitting Clinician Unavailable SELENE PARRA Admitting Clinician Unavailable DONI MARIE Admitting Clinician Unavailable DANIE BARGER Admitting Clinician UnavailDANII Arguello Admitting Clinician Unavailable RAVEN DONNELLY Admitting Clinician Unavailable SURAJ HUNTER Admitting Clinician UnavailCAT Mars Admitting Clinician Unavailable CHRISTY RG Admitting Clinician Unavailable Payers Payer Name Policy Type Policy Number Effective Date Expirati on Date Source [facility] [id number] 2023 00:00:00 MEDICAID SSI PENDING PENDING 2024 00:00:00 Problems Condition Name Condition Details Condition Category Status Onset Date Resolution Date Last Treatment Date Treating Clinician Comments Source Lower abdominal pain Lower abdominal pain Disease Active 1-10 00:00: 00 [facility] Ureterolit hiasis Ureterolit hiasis Disease Active 8-05 00:00: 00 [facility] No known active problems No known active problems Disease [facility] Allergies, Adverse Reactions, Alerts Allergy Name Allergy Type Status Severity Reaction(s) Onset Date Inactive Date Treating Clinician Comments Source GABAPENT IN DRUG INGREDI Active Other-Cmnt 2022-10 00:00: 00 [facility] Gabapent in Propensi ty to adverse reaction s Active Other - See comments 2022-10 00:00: 00 Manic episodes [facility] NO KNOWN ALLERGIE S Drug Class Active [facility] Social History Social Habit Start Date Stop Date Quantity Comments Source Gender identity [facility] Exposure to SARS-CoV-2 (event) 2023-02-24 00:00:00 2023-03-06 22:59:00 Not sure [facility] Sex assigned at 1990 00:00:00 1990 00:00:00 [facility] Smoking Status Start Date Stop Date Source Tobacco smoking consumption unknown [facility] Medications Ordered Medication Name Filled Medication Name Start Date Stop Date Current Medication? Ordering Clinician Indication Dosage Frequency Signature (SIG) Comments Components Source metoclopram farzana HCl (REGLAN) injection 10 mg 2023-10 13:15: 00 07-25 13:23 :00 No 10mg 10 mg, Slow IV Push, ONCE, 1 dose, On Sun07/25/24 at 0815, NICOLASA [facility] pantoprazol e 40 mg EC tablet 2023-10 00:00: 00 Yes [id number] 40mg Take 1 tablet by mouth in the morning. [facility] metoclopram farzana HCl 10 mg tablet 2023-10 00:00: 00 Yes [id number] 10mg Take 1 tablet by mouth every 6 (six) hours. [facility] iopamidol (ISOVUE 370-500 mL) injection 85 mL 07-04 09:45: 00 07-04 09:45 :00 No [id number] 85mL 85 mL, Intravenou s, ONCE, 1 dose, On Sun07/04/24 at 0445, Routine [facility] ketorolac (TORADOL) injection 30 mg 07-04 09:15: 00 07-04 08:27 :00 No 30mg 30 mg, Slow IV Push, ONCE, 1 dose, On Sun07/04/24 at 0415, Routine [facility] Lidocaine Viscous 2 % mucosal solution [...] 1 dose, On Sun03/12/24 at 0545, NICOLASA [facility] metoclopram farzana HCl (REGLAN) injection 10 mg 03-12 10:45: 00 03-12 10:52 :00 No 10mg 10 mg, Slow IV Push, ONCE, 1 dose, [facility]03[facility]12/24 [facility] 0545[facility]UE 370-500 mL) injection 100 mL 03-12 10:15: 00 03-12 10:15 :00 No [id number] 100mL 100 mL, Intravenou s, ONCE, 1 dose, On Sun03/12/24 at 0515, Routine [facility] ketorolac (TORADOL) injection 30 mg 03-12 10:00: 00 03-12 09:01 :00 No 30mg 30 mg, Slow IV Push, ONCE, 1 dose, On Sun03/12/24 at 0500, Routine [facility] NaCl 0.9% (NS) IV infusion 1,000 mL 03-12 09:45: 00 03-12 10:39 :00 No 1000mL at 999 mL/hr, Intravenou s, ONCE, 1 dose, On Sun03/12/24 at 0445, Routine [facility] ondansetron (ZOFRAN (PF)) injection 4 mg 03-12 09:00: 00 03-12 09:01 :00 No 4mg 4 mg, Slow IV Push, ONCE, 1 dose, On Sun03/12/24 at 0400, NICOLASA [facility] butalbital- acetaminoph en-caff 50-325-40 mg tablet 03-12 00:00: 00 Yes [id number] 1{tbl} Take 1 tablet by mouth every 6 (six) hours as needed (Headache) . [facility] dicyclomine 20 mg tablet 03-12 00:00: 00 Yes [id number] 20mg Take 1 tablet by mouth every 6 (six) hours as needed for Abdominal pain. [facility] metoclopram farzana HCl 10 mg tablet 03-12 00:00: 00 07-25 00:00 :00 No [id number] 10mg Take 1 tablet by mouth every 6 (six) hours. [facility] ondansetron HCl 4 mg tablet 03-06 00:00: 00 Yes 1mg Darryl Waggoner iopamidol (ISOVUE 370-500 mL) injection 85 mL 02-02 11:00: 00 02-02 11:00 :00 No [id number] 85mL 85 mL, Intravenou s, ONCE, 1 dose, On Sun02/03/24 at 0600, Routine [facility] FENTanyl PF (SUBLIMAZE (PF)) injection 50 mcg 02-02 10:30: 00 02-02 09:52 :00 No 50ug 50 mcg, Slow IV Push, ONCE, 1 dose, On Sun02/03/24 at 0530, Routine [facility] metoclopram farzana HCl (REGLAN) injection 10 mg 02-02 09:30: 00 02-02 09:52 :00 No 10mg 10 mg, Slow IV Push, ONCE, 1 dose, On Sun02/03/24 at 0430, NICOLASA [facility] pantoprazol e (PROTONIX) injection 40 mg 02-02 09:30: 00 02-02 09:53 :00 No 40mg 40 mg, Slow IV Push, ONCE, 1 dose, On Sun02/03/24 at 0430 [facility] dicyclomine 20 mg tablet 02-02 00:00: 00 Yes [id number] 20mg Take 1 tablet by mouth every 6 (six) hours as needed for Abdominal pain. [facility] metoclopram farzana HCl 10 mg tablet 02-02 00:00: 00 07-25 00:00 :00 No [id number] 10mg Take 1 tablet by mouth every 6 (six) hours. [facility] pantoprazol e (PROTONIX) 40 mg EC tablet 02-02 00:00: 00 07-25 00:00 :00 No [id number] 40mg Take 1 tablet by mouth in the morning. [facility] loratadine (CLARITIN) tablet 10 mg 01-01 06:30: 00 01-01 18:29 :00 No 10mg 10 mg, Oral, ONCE, 1 dose, On Sun01/02/24 at 0130, NICOLASA [facility] azithromyci n (ZITHROMAX) tablet 500 mg 01-01 05:45: 00 01-01 05:39 :00 No 500mg 500 mg, Oral, ONCE, 1 dose, On Sun01/02/24 at 0045, NICOLASA
Re ason for Anti-Infec tive: Documented Infection< br>Documen zoila Infection Site: HEENT
D uration of Therapy: Once (ED) [facility] azithromyci n (ZITHROMAX Z-RAMESH) 250 mg tablet 01-01 00:00: 00 Yes [id number] 500mg Take 2 tablets by mouth SEE-INSTRU CTIONS. Take 500 mg day 1, then 250 mg days 2 to 5. [facility] loratadine- pseudoephed rine (CLARITIN-D 24 HOUR) 10-240 mg per 24 hr tablet 01-01 00:00: 00 Yes [id number] 1{tbl} Take 1 tablet by mouth in the morning. [facility] dextrometho rphan-guaif enesin 10-100 mg/5 mL solution 01-01 00:00: 00 Yes [id number] 10mL Take 10 mL by mouth every 6 (six) hours as needed for Cough. [facility] butalbital- acetaminoph en-caff (ESGIC) 50-325-40 mg tablet 1 tablet 12-25 09:15: 00 12-25 09:09 :00 No 1{tbl} 1 tablet, Oral, ONCE, 1 dose, On Sun12/26/23 at 0415, NICOLASA [facility] butalbital- acetaminoph en-caff 50-325-40 mg tablet 12-25 00:00: 00 Yes [id number] 1{tbl} Take 1 tablet by mouth every 6 (six) hours as needed (Headache) . [facility] ketorolac (TORADOL) injection 30 mg 11-20 17:15: 00 11-20 16:28 :00 No 30mg 30 mg, Slow IV Push, ONCE, 1 dose, On Sun11/20/23 at 1115, NICOLASA [facility] iopamidol (ISOVUE 370-500 mL) injection 80 mL 11-20 14:30: 00 11-20 14:45 :00 No [id number] 80mL 80 mL, Intravenou s, ONCE, 1 dose, On Sun11/20/23 at 0845, Routine [facility] NaCl 0.9% (NS) bolus infusion 1,000 mL 11-20 14:15: 00 11-20 16:26 :00 No 1000mL at 999 mL/hr, 1,000 mL, IV Infusion, ONCE, 1 dose, On Sun11/20/23 at 0815, STAT [facility] cephALEXin (KEFLEX) 500 mg capsule 11-20 00:00: 00 Yes [id number] 500mg Take 1 capsule by mouth in the morning and 1 capsule at noon and 1 capsule in the evening. [facility] ondansetron 4 mg disintegrat ing tablet 11-20 00:00: 00 Yes [id number] 4mg Take 1 tablet by mouth every 4 (four) hours as needed for Nausea and Vomiting (N/V). [facility] naproxen 500 mg tablet 11-20 00:00: 00 12-01 05:59 :00 No [id number] 500mg Take 1 tablet by mouth in the morning and 1 tablet in the evening. Take with meals. Do all this for 10 days. [facility] maalox:diph enhydrAMINE :lidocaine 2 % viscous 1:1:1 ([facility] oral suspension 15 mL 11-12 07:00: 00 11-12 06:55 :00 No 15mL 15 mL, Oral, ONCE, 1 dose, On Sun11/12/23 at 0100, Routine [facility] ondansetron (ZOFRAN-ODT ) disintegrat ing tablet 4 mg 11-12 07:00: 00 11-12 06:16 :00 No 4mg 4 mg, Oral, ONCE, 1 dose, On Sun11/12/23 at 0100, Routine [facility] benzonatate 200 mg capsule 10-27 00:00: 00 Yes [id number] 200mg Take 1 capsule by mouth 3 (three) times daily as needed for Cough for up to 20 doses. [facility] ibuprofen 600 mg tablet 10-27 00:00: 00 Yes [id number] 600mg Take 1 tablet by mouth every 6 (six) hours as needed for Pain (scale 4-6). [facility] ondansetron 4 mg disintegrat ing tablet 10-27 00:00: 00 11-20 00:00 :00 No [id number] 4mg Take 1 tablet by mouth every 8 (eight) hours as needed for Nausea and Vomiting (N/V). [facility] lactulose (CEPHULAC) solution 30 mL 2022-10 01:45: 00 09-09 02:36 :00 No 30mL 30 mL, Oral, ONCE, 1 dose, On 09/08/23 at 1945, NICOLASA [facility] dexamethaso ne (DECADRON PHOSPHATE) injection 10 mg 2022-10 01:30: 00 09-09 02:40 :00 No 10mg 10 mg, Oral, ONCE, 1 dose, On 09/08/23 at 1930, Routine [facility] ketorolac (TORADOL) injection 30 mg 2022-10 01:30: 00 09-09 02:40 :00 No 30mg 30 mg, Intramuscu lar, ONCE, 1 dose, On 09/08/23 at 1930, Routine [facility] ketorolac 10 mg tablet 2022-10 00:00: 00 11-12 00:00 :00 No [id number] 10mg Take 1 tablet by mouth every 6 (six) hours as needed for Pain (scale 7-10). [facility] glycerin/mi neral oil, AGLO ENEMA, Enem 2022-10 00:00: 00 11-12 00:00 :00 No [id number] 225mL Insert 225 mL into rectum as needed for Constipati on. [facility] cefdinir 300 mg capsule 2022-10 00:00: 00 09-16 05:59 :00 No [id number] 300mg Take 1 capsule by mouth every 12 (twelve) hours for 7 days. [facility] lactulose 10 gram/15 mL solution 2022-10 00:00: 00 09-14 05:59 :00 No [id number] 15mL Take 15 mL by mouth in the morning for 5 days. [facility] HYDROcodone -acetaminop hen (NORCO 5) 5-325 mg tablet 1 tablet 2022-10 13:15: 00 09-07 13:33 :00 No 1{tbl} 1 tablet, Oral, ONCE, 1 dose, On Sun09/07/23 at 0715, [facility] diazePAM (VALIUM) tablet 5 mg 2022-10 13:15: 00 09-07 13:33 :00 No 5mg 5 mg, Oral, ONCE, 1 dose, On Sun09/07/23 at 0715, [facility] dexamethaso ne sod phos PF injection 10 mg 2022-10 13:15: 00 09-07 13:33 :00 No 10mg 10 mg, Oral, ONCE, 1 dose, On Sun09/07/23 at 0715, 1 mL [facility] methocarbam oL 750 mg tablet 2022-10 00:00: 00 11-12 00:00 :00 No [id number] 750mg Take 1 tablet by mouth every 6 (six) hours as needed for Pain (scale 1-3). [facility] ondansetron (ZOFRAN (PF)) injection 4 mg 2022-10 02:00: 00 09-04 02:30 :00 No 4mg 4 mg, Slow IV Push, ONCE, 1 dose, On Sun09/03/23 at 1999, [facility] meclizine (TRAVEL-EAS E (MECLIZINE) ) tablet 50 mg 2022-10 02:00: 00 09-04 02:30 :00 No 50mg 50 mg, Oral, ONCE, 1 dose, On Sun09/03/23 at 2000, [facility] ondansetron (ZOFRAN) 4 mg tablet 2022-10 00:00: 00 Yes [id number] 4mg Take 1 tablet by mouth every 8 (eight) hours as needed for Nausea and Vomiting (N/V). [facility] meclizine 25 mg tablet 2022-10 00:00: 00 11-12 00:00 :00 No [id number] 25mg Take 1 tablet by mouth every 6 (six) hours. [facility] ondansetron (ZOFRAN-ODT ) disintegrat ing tablet 4 mg 2022-10 08:30: 00 07-26 07:45 :00 No 4mg 4 mg, Oral, ONCE, 1 dose, On Ashley 07/26/23 at 0330, Routine [facility] proMETHazin e 25 mg tablet 2022-10 00:00: 00 09-03 00:00 :00 No [id number] 12.5mg Take 0.5 tablets by mouth every 6 (six) hours as needed for Nausea and Vomiting (N/V). [facility] loratadine 10 mg tablet 2022-10 00:00: 00 Yes [id number] 10mg Take 1 tablet by mouth at bedtime as needed for Allergies or Runny nose. [facility] albuterol 90 mcg/actuati on inhaler 2022-10 00:00: 00 Yes [id number] 2{puff} Inhale 2 Puffs every 4 (four) hours as needed for Wheezing or Shortness of Breath. [facility] benzonatate 200 mg capsule 2022-10 00:00: 00 11-12 00:00 :00 No [id number] 200mg Take 1 capsule by mouth 3 (three) times daily as needed for Cough. [facility] fluticasone propionate 50 mcg/actuati on nasal spray 2022-10 00:00: 00 11-12 00:00 :00 No [id number] 2{spray } Use 2 Sprays in each nostril in the morning. [facility] predniSONE 20 mg tablet 2022-10 00:00: 00 07-31 04:59 :00 No [id number] 40mg Take 2 tablets by mouth in the morning for 5 days. [facility] TAKE 1 TABLET DAILY. 2022-10 00:00: 00 01-30 00:00 :00 No 10 Darryl Waggoner ibuprofen 800 mg tablet 07-12 00:00: 00 11-12 00:00 :00 No [id number] 800mg Take 1 tablet by mouth every 8 (eight) hours. [facility] methylPREDN ISolone sodium succinate (SOLU-MEDRO L) injection 125 mg 06-24 17:00: 00 06-24 11:35 :44 No 125mg 125 mg, Intramuscu lar, Q6H, First dose on Sun06/24/23 at 1200, Until Discontinu ed, Routine [facility] gabapentin 300 mg capsule 06-24 00:00: 00 11-12 00:00 :00 No [id number] 300mg Take 1 capsule by mouth in the morning and 1 capsule at noon and 1 capsule in the evening. [facility] codeine-gua ifenesin (ROBITUSSIN AC) 10-100 mg/5 mL oral solution 10 mL 06-18 06:15: 06-18 06:23 :00 No 10mL 10 mL, Oral, ONCE, 1 dose, On Sun06/18/23 at 0115, NICOLASA [facility] azithromyci n (ZITHROMAX) tablet 500 mg 06-18 06:15: 06-18 06:24 :00 No 500mg 500 mg, Oral, ONCE, 1 dose, On Sun06/18/23 at 0115, NICOLASA
Re ason for Anti-Infec tive: Documented Infection< br>Documen zoila Infection Site: Respirator y
Durat ion of Therapy: 7 days [facility] benzonatate 200 mg capsule 06-18 00:00: 00 11-12 00:00 :00 No [id number] 200mg Take 1 capsule by mouth 3 (three) times daily as needed for Cough. [facility] azithromyci n 250 mg tablet 06-18 00:00: 00 09-03 00:00 :00 No [id number] 250mg Take 1 tablet by mouth SEE-INSTRU CTIONS. Take 500 mg day 1, then 250 mg days 2 to 5. [facility] ondansetron 4 mg tablet 06-18 00:00: 00 09-03 00:00 :00 No [id number] 1 or 2 tablets every 8 hours as needed for nausea [facility] TAKE 1 TABLET BY MOUTH TWICE A DAY 06-14 00:00: 00 01-30 00:00 :00 No 500 Darryl Waggoner metroNIDAZO LE (FLAGYL) tablet 500 mg 06-12 08:45: 00 06-12 08:32 :00 No 500mg 500 mg, Oral, ONCE, 1 dose, On Sun06/12/23 at 0345, Routine
Reason for Anti-Infec tive: Empiric Therapy for Suspected Infection< br>Empiric Therapy Site: Pelvic
Duration of therapy: 72 hours [facility] doxycycline hyclate (Vibramycin ) capsule 100 mg 06-12 07:45: 00 06-12 08:32 :00 No 100mg 100 mg, Oral, ONCE, 1 dose, On Sun06/12/23 at 0245, NICOLASA
Re ason for Anti-Infec tive: Documented Infection< br>Documen zoila Infection Site: Pelvic
Duration of Therapy: 14 days [facility] morpHINE (4 mg/mL) injection 4 mg 06-12 07:45: 00 06-12 08:32 :00 No 4mg 4 mg, Slow IV Push, ONCE, 1 dose, On Sun06/12/23 at 0245, STAT [facility] ketorolac (TORADOL) injection 30 mg 06-12 06:15: 00 06-12 05:10 :00 No 30mg 30 mg, Slow IV Push, ONCE, 1 dose, On Sun06/12/23 at 0115, NICOLASA [facility] NaCl 0.9% (NS) bolus infusion 1,000 mL 06-12 06:15: 00 06-12 06:56 :00 No 1000mL at 999 mL/hr, 1,000 mL, IV Infusion, ONCE, 1 dose, On Sun06/12/23 at 0115, STAT [facility] cefTRIAXone (ROCEPHIN) 1,000 mg in NaCl 0.9% (NS) 100 mL MINI-BAG 06-12 05:15: 00 06-12 06:56 :00 No 1000mg 1,000 mg, IV Piggyback, ONCE, 1 dose, On Sun06/12/23 at 0015, Administer over 30 Minutes, 100 mL
Reas on for Anti-Infec tive: Empiric Therapy for Suspected Infection< br>Empiric Therapy Site: Pelvic
Duration of therapy: 72 hours [facility] ondansetron (ZOFRAN (PF)) injection 4 mg 06-12 05:15: 00 06-12 05:10 :00 No 4mg 4 mg, Slow IV Push, ONCE, 1 dose, On Sun06/12/23 at 0015, NICOLASA [facility] ibuprofen 800 mg tablet 06-12 00:00: 00 07-12 00:00 :00 No [id number] 800mg Take 1 tablet by mouth every 8 (eight) hours as needed for Pain (scale 4-6). [facility] TAKE 1 TABLET TWICE DAILY. 05-31 00:00: 00 01-30 00:00 :00 No 100 Darryl Waggoner iopamidol (ISOVUE 370-500 mL) injection 85 mL 05-28 08:30: 00 05-28 08:30 :00 No [id number] 85mL 85 mL, Intravenou s, ONCE, 1 dose, On Sun05/28/23 at 0330, Routine [facility] NaCl 0.9% (NS) bolus infusion 1,000 mL 05-28 08:15: 00 05-28 08:52 :00 No 1000mL at 999 mL/hr, 1,000 mL, IV Infusion, ONCE, 1 dose, On Sun05/28/23 at 0315, STAT [facility] pantoprazol e (PROTONIX) 80 mg in NaCl 0.9% (NS) 20 mL syringe 05-28 08:00: 00 05-28 08:02 :00 No 80mg 80 mg, IV Push, ONCE, 1 dose, On Sun05/28/23 at 0300, Administer over 2 Minutes, 20 mL [facility] ondansetron (ZOFRAN (PF)) injection 4 mg 05-28 06:45: 00 05-28 06:36 :00 No 4mg 4 mg, Slow IV Push, ONCE, 1 dose, On Sun05/28/23 at 0145, NICOLASA [facility] ondansetron 4 mg disintegrat ing tablet 05-28 00:00: 00 09-03 00:00 :00 No [id number] 4mg Take 1 tablet by mouth every 8 (eight) hours as needed for Nausea and Vomiting (N/V). [facility] esomeprazol e (NEXIUM) 40 mg capsule 05-28 00:00: 00 06-12 04:59 :00 No [id number] 40mg Take 1 capsule by mouth daily with breakfast for 14 days. [facility] INSTILL 4 DROPS IN THE AFFECTED EAR(S) TWICE DAILY 7-10 00:00: 00 01-30 00:00 :00 No 301 Darryl Waggoner dexamethaso ne (DECADRON PHOSPHATE) injection 10 mg 03-07 05:00: 00 03-07 03:56 :00 No 10mg 10 mg, Oral, ONCE, 1 dose, On Sun03/07/23 at 0000, Routine [facility] levocetiriz ine 5 mg tablet 03-06 00:00: 00 09-03 00:00 :00 No [id number] 5mg Take 1 tablet by mouth every evening. [facility] butorphanol (STADOL) injection 1 mg 02-02 08:00: 00 02-02 07:18 :00 No 1mg 1 mg, IV Push, ONCE, 1 dose, On Sun02/02/23 at 0300, NICOLASA [facility] ketorolac (TORADOL) injection 30 mg 02-02 07:45: 00 02-02 06:42 :00 No 30mg 30 mg, Slow IV Push, ONCE, 1 dose, On 4/21/23 at 0245, Routine [facility] metoclopram farzana HCl (REGLAN) injection 10 mg 02-02 06:45: 00 02-02 06:41 :00 No 10mg 10 mg, Slow IV Push, ONCE, 1 dose, On Sun02/02/23 at 0145, NICOLASA [facility] diphenhydrA MINE (BENADRYL) injection 25 mg 02-02 06:45: 00 02-02 06:43 :00 No 25mg 25 mg, Slow IV Push, ONCE, 1 dose, On Sun02/02/23 at 0145, STAT [facility] butalbital- acetaminoph en-caff 50-325-40 mg tablet 02-02 00:00: 00 11-12 00:00 :00 No [id number] 1{tbl} Take 1 tablet by mouth every 4 (four) hours as needed for Pain (scale 7-10). [facility] ondansetron (ZOFRAN) 4 mg tablet 02-02 00:00: 00 05-28 00:00 :00 No [id number] 4mg Take 1 tablet by mouth every 8 (eight) hours as needed for Nausea and Vomiting (N/V). [facility] iopamidol (ISOVUE 370-500 mL) injection 98 mL 10-24 21:00: 00 10-24 21:00 :00 No [id number] 98mL 98 mL, Intravenou s, ONCE, 1 dose, On Sun10/24/22 at 1500, Routine [facility] morpHINE (4 mg/mL) injection 4 mg 10 18:30: 00 10-24 19:03 :00 No 4mg 4 mg, Slow IV Push, ONCE, 1 dose, On Sun10/24/22 at 1230, STAT [facility] ondansetron (ZOFRAN (PF)) injection 4 mg 10-24 18:30: 00 10-24 19:01 :00 No 4mg 4 mg, Slow IV Push, ONCE, 1 dose, On Sun10/24/22 at 1230, NICOLASA [facility] NaCl 0.9% (NS) bolus infusion 1,000 mL 10-24 18:30: 00 10-24 21:40 :00 No 1000mL at 999 mL/hr, 1,000 mL, IV Infusion, ONCE, 1 dose, On Sun10/24/22 at 1230, STAT [facility] ondansetron 4 mg disintegrat ing tablet 10-24 00:00: 05-28 00:00 :00 No [id number] 4mg Take 1 tablet by mouth every 8 (eight) hours as needed for Nausea and Vomiting (N/V) for up to 10 doses. [facility] cephALEXin (KEFLEX) 500 mg capsule 10-24 00:00: 00 11-01 05:59 :00 No [id number] 500mg Take 1 capsule by mouth 4 (four) times daily for 7 days. [facility] ibuprofen 600 mg tablet 10-24 00:00: 00 10-30 05:59 :00 No [id number] 600mg Take 1 tablet by mouth every 8 (eight) hours as needed for Pain (scale 4-6) for up to 5 days. [facility] dicyclomine 20 mg tablet 10-24 00:00: 00 10-30 05:59 :00 No [id number] 20mg Take 1 tablet by mouth 3 (three) times daily as needed for Abdominal pain for up to 5 days. [facility] megestroL 40 mg tablet 2021-10 00:00: 00 11-12 00:00 :00 No [id number] 100 Take by mouth 2 tabs for first 7 days then 1 tablet by mouth daily for next 14 days. [facility] cephALEXin (KEFLEX) 500 mg capsule 2021-10 0 00:00: 00 07-29 04:59 :00 No [id number] 100 500mg Take 1 capsule by mouth in the morning and 1 capsule at noon and 1 capsule in the evening. Do all this for 7 days. [facility] iopamidol (ISOVUE 370-500 mL) injection 65 mL 05-19 21:30: 00 05-19 21:45 :00 No [id number] 65mL 65 mL, Intravenou s, ONCE, 1 dose, On Sun05/19/22 at 1645, Routine [facility] ondansetron (ZOFRAN (PF)) injection 4 mg 05-19 21:30: 00 05-19 20:51 :00 No 4mg 4 mg, Slow IV Push, ONCE, 1 dose, On Sun05/19/22 at 1630, NICOLASA [facility] ketorolac (TORADOL) injection 30 mg 05-19 21:30: 00 05-19 20:51 :00 No 30mg 30 mg, Slow IV Push, ONCE, 1 dose, On Sun05/19/22 at 1630, Routine [facility] NaCl 0.9% (NS) bolus infusion 1,000 mL 05-19 21:30: 00 05-19 22:08 :00 No 1000mL at 999 mL/hr, 1,000 mL, IV Infusion, ONCE, 1 dose, On Sun05/19/22 at 1630, NICOLASA [facility] tamsulosin 0.4 mg 24 hr capsule 05-19 00:00: 00 11-12 00:00 :00 No [id number] .4mg Take 1 capsule by mouth at bedtime. [facility] traMADoL 50 mg tablet 05-19 00:00: 00 05-27 04:59 :00 No [id number] 50mg Take 1 tablet by mouth every 6 (six) hours as needed for Pain (scale 4-6) for up to 7 days. Indication s: acute pain [facility] ketorolac (TORADOL) injection 30 mg 05-13 08:45: 00 05-13 07:40 :00 No 30mg 30 mg, Slow IV Push, ONCE, 1 dose, On Sun05/13/22 at 0345, Routine [facility] ketorolac 10 mg tablet 05-13 00:00: 00 11-12 00:00 :00 No [id number] 10mg Take 1 tablet by mouth every 6 (six) hours as needed for Pain (scale 7-10). [facility] butalbital- acetaminoph en-caff (ESGIC) 50-325-40 mg tablet 2 tablet 04-01 23:15: 00 04-01 22:22 :00 No 2{tbl} 2 tablet, Oral, ONCE NOW, 1 dose, On 04/01/22 at 1815, Routine [facility] ketorolac (TORADOL) injection 30 mg 04-01 23:15: 00 04-01 22:21 :00 No 30mg 30 mg, Intramuscu lar, ONCE, 1 dose, On 04/01/22 at 1815, NICOLASA [facility] No known medications 04-01 18:30: 37 No [facility] No known medications 10-25 13:51: 01 No [facility] cefdinir 300 mg capsule 10-25 00:00: 00 11-02 05:59 :00 No [id number] 300mg Take 1 capsule by mouth 2 (two) times daily for 7 days. [facility] Iron (ferrous sulfate) 325 mg (65 mg iron) tablet 10-21 00:00: 00 No 1(65 mg iron) Iron (ferrous sulfate) 325 mg (65 mg iron) tablet 10-21 00:00: 00 Yes 1(65 mg iron) Darryl Waggoner Iron (ferrous sulfate) 325 mg (65 mg iron) tablet - 00:00: 00 No 1(65 mg iron) medroxyprog esterone 10 mg tablet - 00:00: 00 No 1mg medroxyprog esterone 10 mg tablet - 00:00: 00 No 1mg medroxyprog esterone 10 mg tablet - 00:00: 00 Yes 1mg Darryl Waggoner naproxen 500 mg tablet - 00:00: 00 No 1mg naproxen 500 mg tablet 0 - 00:00: 00 No 1mg naproxen 500 mg tablet 0 10-17 00:00: 00 Yes 1mg Darryl Waggoner ibuprofen 800 mg tablet 2020-10 00:00: 00 No 1mg ibuprofen 800 mg tablet 2020-10 00:00: 00 No 1mg ibuprofen 800 mg tablet 2020-10 00:00: 00 Yes 1mg Darryl Waggoner No known medications 04-08 21:44: 39 No [facility] amitriptyli ne 25 mg tablet 03-03 00:00: 00 No 1mg amitriptyli ne 25 mg tablet 03-03 00:00: 00 No 1mg amitriptyli ne 25 mg tablet 03-03 00:00: 00 Yes 1mg Darryl Waggoner Dose Unknown 3-27 00:00: 00 No Dose Unknown 0 27 00:00: 00 No Dose Unknown 0 327 00:00: 00 Yes Darryl Waggoner Celexa 20 [...] Systolic blood pressure 2024-07-25 14:30:00 124 mm[Hg] [facility] Diastolic blood pressure 2024-07-25 14:30:00 83 mm[Hg] [facility] Heart rate 2024-07-25 14:30:00 88 /min [facility] Respiratory rate 2024-07-25 14:30:00 14 /min [facility] Oxygen saturation in Arterial blood by Pulse oximetry 2024-07-25 14:30:00 99 /min [facility] Body temperature 2024-07-25 12:49:00 37.22 Jennifer [facility] Body height 2024-07-25 12:49:00 157.5 cm [facility] Body weight 2024-07-25 12:49:00 86.637 kg [facility] BMI 2024-07-25 12:49:00 34.93 kg/m2 [facility] Systolic blood pressure 2024-07-04 10:38:00 117 mm[Hg] [facility] Diastolic blood pressure 2024-07-04 10:38:00 79 mm[Hg] [facility] Heart rate 2024-07-04 10:38:00 82 /min [facility] Body temperature 2024-07-04 10:38:00 36.89 Jennifer [facility] Respiratory rate 2024-07-04 10:38:00 14 /min [facility] Oxygen saturation in Arterial blood by Pulse oximetry 2024-07-04 10:38:00 100 /min [facility] Body height 2024-07-04 07:28:00 157.5 cm [facility] Body weight 2024-07-04 07:28:00 79.379 kg [facility] BMI 2024-07-04 07:28:00 32.01 kg/m2 [facility] Systolic blood pressure 2024-03-12 11:00:00 127 mm[Hg] [facility] Diastolic blood pressure 2024-03-12 11:00:00 94 mm[Hg] [facility] Heart rate 2024-03-12 11:00:00 84 [facility]min [facility] Body temperature 2024-03-12 11:00:00 36.61 Jennifer [facility] Respiratory rate 2024-03-12 11:00:00 14 /min [facility] Oxygen saturation in Arterial blood by Pulse oximetry 2024-03-12 11:00:00 100 /min [facility] Body height 2024-03-12 07:04:00 157.5 cm [facility] Body weight 2024-03-12 07:04:00 87 kg [facility] BMI 2024-03-12 07:04:00 35.08 kg/m2 [facility] Systolic blood pressure 2024-02-03 12:00:00 121 mm[Hg] [facility] Diastolic blood pressure 2024-02-03 12:00:00 82 mm[Hg] [facility] Heart rate 2024-02-03 12:00:00 80 /min [facility] Respiratory rate 2024-02-03 12:00:00 17 /min [facility] Oxygen saturation in Arterial blood by Pulse oximetry 2024-02-03 12:00:00 100 /min [facility] Body temperature 2024-02-03 09:01:00 37.33 Jennifer [facility] Body height 2024-02-03 09:01:00 157.5 cm [facility] Body weight 2024-02-03 09:01:00 81.647 kg [facility] BMI 2024-02-03 09:01:00 32.92 kg/m2 [facility] Systolic blood pressure 2024-01-02 05:38:00 109 mm[Hg] [facility] Diastolic blood pressure 2024-01-02 05:38:00 91 mm[Hg] [facility] Heart rate 2024-01-02 05:38:00 93 /min [facility] Body temperature 2024-01-02 05:38:00 36.28 Jennifer [facility] Respiratory rate 2024-01-02 05:38:00 20 /min [facility] Oxygen saturation in Arterial blood by Pulse oximetry 2024-01-02 05:38:00 99 /min [facility] Body height 2024-01-02 03:25:00 157.5 cm [facility] Body weight 2024-01-02 03:25:00 81.647 kg [facility] BMI 2024-01-02 03:25:00 32.92 kg/m2 [facility] Systolic blood pressure 2023-12-26 08:51:00 115 mm[Hg] [facility] Diastolic blood pressure 2023-12-26 08:51:00 78 mm[Hg] [facility] Heart rate 2023-12-26 08:51:00 98 /min [facility] Body temperature 2023-12-26 08:51:00 37.5 Jennifer [facility] Respiratory rate 2023-12-26 08:51:00 12 /min [facility] Body height 2023-12-26 08:51:00 157.5 cm [facility] Body weight 2023-12-26 08:51:00 85.322 kg [facility] BMI 2023-12-26 08:51:00 34.40 kg/m2 [facility] Oxygen saturation in Arterial blood by Pulse oximetry 2023-12-26 08:51:00 100 /min [facility] Systolic blood pressure 2023-11-20 16:29:00 120 mm[Hg] [facility] Diastolic blood pressure 2023-11-20 16:29:00 89 mm[Hg] [facility] Heart rate 2023-11-20 16:29:00 85 /min [facility] Respiratory rate 2023-11-20 16:29:00 16 /min [facility] Oxygen saturation in Arterial blood by Pulse oximetry 2023-11-20 16:29:00 97 /min [facility] Body temperature 2023-11-20 12:44:00 37.11 Jennifer [facility] Body height 2023-11-20 12:44:00 157.5 cm [facility] Body weight 2023-11-20 12:44:00 82.101 kg [facility] BMI 2023-11-20 12:44:00 33.11 kg/m2 [facility] Systolic blood pressure 2023-11-12 06:09:00 135 mm[Hg] [facility] Diastolic blood pressure 2023-11-12 06:09:00 86 mm[Hg] [facility] Heart rate 2023-11-12 06:09:00 89 /min [facility] Body temperature 2023-11-12 06:09:00 37.28 Jennifer [facility] Respiratory rate 2023-11-12 06:09:00 16 /min [facility] Body height 2023-11-12 06:09:00 157.5 cm [facility] Body weight 2023-11-12 06:09:00 83.553 kg [facility] BMI 2023-11-12 06:09:00 33.69 kg/m2 [facility] Oxygen saturation in Arterial blood by Pulse oximetry 2023-11-12 06:09:00 100 /min [facility] Systolic blood pressure 2023-10-28 02:30:00 121 mm[Hg] [facility] Diastolic blood pressure 2023-10-28 02:30:00 80 mm[Hg] [facility] Heart rate 2023-10-28 02:30:00 124 /min [facility] Body temperature 2023-10-28 02:30:00 38 Jennifer [facility] Respiratory rate 2023-10-28 02:30:00 20 /min [facility] Body weight 2023-10-28 02:30:00 86.183 kg [facility] BMI 2023-10-28 02:30:00 34.75 kg/m2 [facility] Oxygen saturation in Arterial blood by Pulse oximetry 2023-10-28 02:30:00 96 /min [facility] Systolic blood pressure 2023-09-09 02:47:12 116 mm[Hg] [facility] Diastolic blood pressure 2023-09-09 02:47:12 85 mm[Hg] [facility] Heart rate 2023-09-09 02:47:12 78 /min [facility] Body temperature 2023-09-09 02:47:12 36.28 Jennifer [facility] Respiratory rate 2023-09-09 02:47:12 18 /min [facility] Oxygen saturation in Arterial blood by Pulse oximetry 2023-09-09 02:47:12 98 /min [facility] Body height 2023-09-09 00:30:00 157.5 cm [facility] Body weight 2023-09-09 00:30:00 85.276 kg [facility] BMI 2023-09-09 00:30:00 34.39 kg/m2 [facility] Systolic blood pressure 2023-09-07 12:45:00 119 mm[Hg] [facility] Diastolic blood pressure 2023-09-07 12:45:00 83 mm[Hg] [facility] Heart rate 2023-09-07 12:45:00 101 /min [facility] Body temperature 2023-09-07 12:45:00 37.5 Jennifer [facility] Respiratory rate 2023-09-07 12:45:00 18 /min [facility] Body height 2023-09-07 12:45:00 157.5 cm [facility] Body weight 2023-09-07 12:45:00 82.872 kg [facility] BMI 2023-09-07 12:45:00 33.42 kg/m2 [facility] Oxygen saturation in Arterial blood by Pulse oximetry 2023-09-07 12:45:00 99 /min [facility] Systolic blood pressure 2023-09-04 04:00:00 112 mm[Hg] [facility] Diastolic blood pressure 2023-09-04 04:00:00 97 mm[Hg] [facility] Heart rate 2023-09-04 04:00:00 94 /min [facility] Body temperature 2023-09-04 04:00:00 36.89 Jennifer [facility] Oxygen saturation in Arterial blood by Pulse oximetry 2023-09-04 04:00:00 98 /min [facility] Respiratory rate 2023-09-04 03:00:00 17 /min [facility] Body height 2023-09-04 00:54:00 157.5 cm [facility] Body weight 2023-09-04 00:54:00 83.915 kg [facility] BMI 2023-09-04 00:54:00 33.84 kg/m2 [facility] Systolic blood pressure 2023-08-04 04:05:00 139 mm[Hg] [facility] Diastolic blood pressure 2023-08-04 04:05:00 77 mm[Hg] [facility] Heart rate 2023-08-04 04:05:00 104 /min [facility] Body temperature 2023-08-04 04:05:00 36.72 Jennifer [facility] Respiratory rate 2023-08-04 04:05:00 16 /min [facility] Body height 2023-08-04 04:05:00 157.5 cm [facility] Body weight 2023-08-04 04:05:00 85.957 kg [facility] BMI 2023-08-04 04:05:00 34.66 kg/m2 [facility] Oxygen saturation in Arterial blood by Pulse oximetry 2023-08-04 04:05:00 100 /min [facility] Systolic blood pressure 2023-07-26 07:38:00 134 mm[Hg] [facility] Diastolic blood pressure 2023-07-26 07:38:00 95 mm[Hg] [facility] Heart rate 2023-07-26 07:38:00 114 /min [facility] Body temperature 2023-07-26 07:38:00 37.28 Jennifer [facility] Respiratory rate 2023-07-26 07:38:00 18 /min [facility] Body height 2023-07-26 07:38:00 157.5 cm [facility] Body weight 2023-07-26 07:38:00 86.183 kg [facility] BMI 2023-07-26 07:38:00 34.75 kg/m2 [facility] Oxygen saturation in Arterial blood by Pulse oximetry 2023-07-26 07:38:00 99 /min [facility] Systolic blood pressure 2023-07-25 14:52:00 126 mm[Hg] [facility] Diastolic blood pressure 2023-07-25 14:52:00 96 mm[Hg] [facility] Heart rate 2023-07-25 14:52:00 98 /min [facility] Body temperature 2023-07-25 14:52:00 37 Jennifer [facility] Respiratory rate 2023-07-25 14:52:00 16 /min [facility] Oxygen saturation in Arterial blood by Pulse oximetry 2023-07-25 14:52:00 98 /min [facility] Body height 2023-07-25 12:33:00 157.5 cm [facility] Body weight 2023-07-25 12:33:00 86.456 kg [facility] BMI 2023-07-25 12:33:00 34.86 kg/m2 [facility] Systolic blood pressure 2023-07-12 12:34:00 127 mm[Hg] [facility] Diastolic blood pressure 2023-07-12 12:34:00 86 mm[Hg] [facility] Heart rate 2023-07-12 12:34:00 86 /min [facility] Body temperature 2023-07-12 12:34:00 36.72 Jennifer [facility] Respiratory rate 2023-07-12 12:34:00 16 /min [facility] Body height 2023-07-12 12:34:00 157.5 cm [facility] Body weight 2023-07-12 12:34:00 86.183 kg [facility] BMI 2023-07-12 12:34:00 34.75 kg/m2 [facility] Oxygen saturation in Arterial blood by Pulse oximetry 2023-07-12 12:34:00 98 /min [facility] Body temperature 2023-06-24 10:24:00 36.78 Jennifer [facility] Respiratory rate 2023-06-24 10:24:00 18 /min [facility] Body height 2023-06-24 10:24:00 157.5 cm [facility] Body weight 2023-06-24 10:24:00 89.812 kg [facility] BMI 2023-06-24 10:24:00 36.21 kg/m2 [facility] Oxygen saturation in Arterial blood by Pulse oximetry 2023-06-24 10:24:00 100 /min [facility] Systolic blood pressure 2023-06-24 10:24:00 118 mm[Hg] [facility] Diastolic blood pressure 2023-06-24 10:24:00 89 mm[Hg] [facility] Heart rate 2023-06-24 10:24:00 95 /min [facility] Systolic blood pressure 2023-06-18 04:52:00 113 mm[Hg] [facility] Diastolic blood pressure 2023-06-18 04:52:00 82 mm[Hg] [facility] Heart rate 2023-06-18 04:52:00 100 /min [facility] Body temperature 2023-06-18 04:52:00 37.39 Jennifer [facility] Respiratory rate 2023-06-18 04:52:00 18 /min [facility] Body height 2023-06-18 04:52:00 157.5 cm [facility] Body weight 2023-06-18 04:52:00 89.903 kg [facility] BMI 2023-06-18 04:52:00 36.25 kg/m2 [facility] Oxygen saturation in Arterial blood by Pulse oximetry 2023-06-18 04:52:00 100 /min [facility] Systolic blood pressure 2023-06-12 09:00:00 105 mm[Hg] [facility] Diastolic blood pressure 2023-06-12 09:00:00 74 mm[Hg] [facility] Heart rate 2023-06-12 09:00:00 74 /min [facility] Respiratory rate 2023-06-12 09:00:00 16 /min [facility] Oxygen saturation in Arterial blood by Pulse oximetry 2023-06-12 09:00:00 97 /min [facility] Body temperature 2023-06-12 04:09:00 36.89 Jennifer [facility] Body height 2023-06-12 04:09:00 [facility] 2023-06-12 04:09:00 86.183 kg [facility] BMI 2023-06-12 04:09:00 34.75 kg/m2 [facility] Systolic blood pressure 2023-05-28 08:00:00 123 mm[Hg] [facility] Diastolic blood pressure 2023-05-28 08:00:00 78 mm[Hg] [facility] Heart rate 2023-05-28 08:00:00 93 /min [facility] Oxygen saturation in Arterial blood by Pulse oximetry 2023-05-28 08:00:00 99 /min [facility] Respiratory rate 2023-05-28 06:00:00 18 /min [facility] Body temperature 2023-05-28 05:37:00 35.72 Jennifer [facility] Body height 2023-05-28 05:37:00 157.5 cm [facility] Body weight 2023-05-28 05:37:00 87.136 kg [facility] BMI 2023-05-28 05:37:00 35.14 kg/m2 [facility] Systolic blood pressure 2023-03-07 03:59:00 122 mm[Hg] [facility] Diastolic blood pressure 2023-03-07 03:59:00 77 mm[Hg] [facility] Heart rate 2023-03-07 03:59:00 97 /min [facility] 2023-03-07 03:59:00 36.67 Jennifer [facility] Respiratory rate 2023-03-07 03:59:00 18 /min [facility] Body height 2023-03-07 03:59:00 157.5 cm [facility] Body weight 2023-03-07 03:59:00 79.379 kg [facility] BMI 2023-03-07 03:59:00 32.01 kg/m2 [facility] Oxygen saturation in Arterial blood by Pulse oximetry 2023-03-07 03:59:00 99 /min [facility] Heart rate 2023-02-02 07:48:00 73 /min [facility] Oxygen saturation in Arterial blood by Pulse oximetry 2023-02-02 07:48:00 98 /min [facility] Systolic blood pressure 2023-02-02 07:00:00 122 mm[Hg] [facility] Diastolic blood pressure 2023-02-02 07:00:00 79 mm[Hg] [facility] Respiratory rate 2023-02-02 07:00:00 15 /min [facility] Body temperature 2023-02-02 06:07:00 36.94 Jennifer [facility] Body height 2023-02-02 06:07:00 157.5 cm [facility] Body weight 2023-02-02 06:07:00 79.379 kg [facility] BMI 2023-02-02 06:07:00 32.01 kg/m2 [facility] Systolic blood pressure 2022-10-24 21:42:00 114 mm[Hg] [facility] Diastolic blood pressure 2022-10-24 21:42:00 74 mm[Hg] [facility] Heart rate 2022-10-24 21:42:00 72 /min [facility] Respiratory rate 2022-10-24 21:42:00 16 /min [facility] Oxygen saturation in Arterial blood by Pulse oximetry 2022-10-24 21:42:00 99 /min [facility] Body temperature 2022-10-24 18:03:00 37.33 Jennifer [facility] Body height 2022-10-24 18:03:00 157.5 cm [facility] Body weight 2022-10-24 18:03:00 79.379 kg [facility] BMI 2022-10-24 18:03:00 32.01 kg/m2 [facility] Systolic blood pressure 2022-07-21 12:46:00 115 mm[Hg] [facility] Diastolic blood pressure 2022-07-21 12:46:00 83 mm[Hg] [facility] Heart rate 2022-07-21 12:46:00 82 /min [facility] Body temperature 2022-07-21 12:46:00 36.89 Jennifer [facility] Respiratory rate 2022-07-21 12:46:00 18 /min [facility] Body weight 2022-07-21 12:46:00 78.019 kg [facility] BMI 2022-07-21 12:46:00 31.46 kg/m2 [facility] Oxygen saturation in Arterial blood by Pulse oximetry 2022-07-21 12:46:00 99 /min [facility] Systolic blood pressure 2022-05-19 22:00:00 128 mm[Hg] [facility] Diastolic blood pressure 2022-05-19 22:00:00 68 mm[Hg] [facility] Heart rate 2022-05-19 22:00:00 78 /min [facility] Body temperature 2022-05-19 22:00:00 36.78 Jennifer [facility] Respiratory rate 2022-05-19 22:00:00 18 /min [facility] Oxygen saturation in Arterial blood by Pulse oximetry 2022-05-19 22:00:00 100 /min [facility] Body height 2022-05-19 20:31:00 157.5 cm [facility] Body weight 2022-05-19 20:31:00 78.019 kg [facility] BMI 2022-05-19 20:31:00 31.46 kg/m2 [facility] Heart rate 2022-05-13 08:30:00 83 /min [facility] Oxygen saturation in Arterial blood by Pulse oximetry 2022-05-13 08:30:00 99 /min [facility] Systolic blood pressure 2022-05-13 08:00:00 111 mm[Hg] [facility] Diastolic blood pressure 2022-05-13 08:00:00 80 mm[Hg] [facility] Body temperature 2022-05-13 07:05:00 37 Jennifer [facility] Respiratory rate 2022-05-13 07:05:00 18 /min [facility] Body height 2022-05-13 07:05:00 157.5 cm [facility] Body weight 2022-05-13 07:05:00 76.658 kg [facility] BMI 2022-05-13 07:05:00 30.91 kg/m2 [facility] Systolic blood pressure 2022-04-01 21:47:00 124 mm[Hg] [facility] Diastolic blood pressure 2022-04-01 21:47:00 84 mm[Hg] [facility] Heart rate 2022-04-01 21:47:00 89 /min [facility] Body temperature 2022-04-01 21:47:00 37.22 Jennifer [facility] Respiratory rate 2022-04-01 21:47:00 22 /min [facility] Body weight 2022-04-01 21:47:00 77.111 kg [facility] BMI 2022-04-01 21:47:00 29.18 kg/m2 [facility] Oxygen saturation in Arterial blood by Pulse oximetry 2022-04-01 21:47:00 99 /min [facility] Systolic blood pressure 2021-10-25 19:42:00 103 mm[Hg] [facility] Diastolic blood pressure 2021-10-25 19:42:00 74 mm[Hg] [facility] Heart rate 2021-10-25 19:42:00 94 /min [facility] Body temperature 2021-10-25 19:42:00 37.67 Jennifer [facility] Respiratory rate 2021-10-25 19:42:00 18 /min [facility] Body weight 2021-10-25 19:42:00 70.761 kg [facility] BMI 2021-10-25 19:42:00 26.78 kg/m2 [facility] Oxygen saturation in Arterial blood by Pulse oximetry 2021-10-25 19:42:00 99 /min [facility] BP Systolic 2024-08-25 14:45:00 115 mm[Hg] Step [...] ACUTE SERIES 2024-07-25 14:37:21 Do jasmina Marie [facility] POCT TEST 2024-07-25 13:23:00 Ryan Marie [facility] LIPASE 2024-07-25 13:21:00 [facility] COMP. METABOLIC PANEL ([id number]) 2024-07-25 13:21:00 Doni Marie [facility] CBC WITH DIFF 2024-07-25 13:21:00 Doni Marie [facility] URINALYSIS 2024-07-25 13:21:00 [facility] URINE DRUG ([id number]) - COMPREHENSIVE DRUG SCREEN W/O REFLEX 2024-07-25 13:21:00 Doni Marie [facility] CT ABDOMEN PELVIS W CONTRAST 2024-07-04 08:54:02 Selene Parra [facility] POCT TEST 2024-07-04 07:36:00 Selene Parra [facility] LIPASE 2024-07-04 07:33:00 Selene Parra [facility] COMP. METABOLIC PANEL ([id number]) 2024-07-04 07:33:00 Selene Parra [facility] CBC WITH DIFF 2024-07-04 07:33:00 Selene Parra [facility] URINALYSIS 2024-07-04 07:33:00 Selene Parra [facility] CT ABDOMEN PELVIS W CONTRAST 2024-03-12 09:15:57 Selene Parra [facility] LIPASE 2024-03-12 09:01:00 Selene Parra [facility] COMP. METABOLIC PANEL ([id number]) 2024-03-12 09:01:00 Selene Parra [facility] CBC WITH DIFF 2024-03-12 09:01:00 Selene Parra [facility] EBV-MONONUCLEOSIS SCREEN 2024-02-03 10:22:00 Funmilayo Parra [facility] CT ABDOMEN PELVIS W CONTRAST 2024-02-03 10:08:28 Selene Parra [facility] POCT TEST 2024-02-03 09:09:00 Selene Parra [facility] LIPASE 2024-02-03 09:06:00 Selene Parra [facility] COMP. METABOLIC PANEL ([id number]) 2024-02-03 09:06:00 Selene Parra [facility] CBC WITH DIFF 2024-02-03 09:06:00 Selene Parra [facility] URINALYSIS 2024-02-03 09:06:00 Selene Parra [facility] RAPID STREP SCREEN FOR GROUP A 2024-02-03 09:06:00 Selene Parra [facility] ASSIGNMENT OF BENEFITS 2024-01-02 04:22:29 Docto r Unassigned, [place] [facility] RAPID STREP SCREEN FOR GROUP A 2024-01-02 04:20:00 Doni Marie [facility] RAPID INFLUENZA A/B 2024-01-02 03:50:00 Ryan Marie [facility] COVID-19 (ID NOW RAPID TESTING) 2024-01-02 03:50:00 Doni Marie [facility] CONSENT/REFUSAL FOR DIAGNOSIS AND TREATMENT 2024-01-02 03:16:29 Doctor Unassigned, [place] [facility] CONSENT/REFUSAL FOR DIAGNOSIS AND TREATMENT 2023-12-26 08:43:59 Doctor Unassigned, [place] [facility] 94309 Colposcopy Cervix Endocervical Curettage 2023-12-17 00:00:00 Darryl Waggoner US OVARY TORSION 2023-11-20 16:01:25 Doni Marie [facility] CT ABDOMEN PELVIS W CONTRAST 2023-11-20 14:40:23 Doni Marie [facility] COMP. METABOLIC PANEL ([id number]) 2023-11-20 13:27:00 Doni Marie [facility] CBC WITH DIFF 2023-11-20 13:27:00 Doni Marie [facility] URINALYSIS 2023-11-20 13:27:00 Doni Marie [facility] POCT TEST 2023-11-20 13:26:00 Ryan Marie [facility] CONSENT/REFUSAL FOR DIAGNOSIS AND TREATMENT 2023-11-20 12:37:06 Doctor Unassigned, [place] [facility] CONSENT/REFUSAL FOR DIAGNOSIS AND TREATMENT 2023-11-12 06:04:20 Doctor Unassigned, [place] [facility] CONSENT/REFUSAL FOR DIAGNOSIS AND TREATMENT 2023-10-28 02:10:42 Doctor Unassigned, [place] [facility] URINALYSIS 2023-09-09 02:35:00 Danie Barger [facility] XR KUB 2023-09-09 01:28:00 Danie Barger [facility] CT LUMBAR SPINE WO CONTRAST 2023-09-09 01:02:05 Danie Barger [facility] CONSENT/REFUSAL FOR DIAGNOSIS AND TREATMENT 2023-09-09 00:05:52 Doctor Unassigned, [place] [facility] POCT TEST 2023-09-07 13:28:00 Juli Srivastava ra [facility] URINALYSIS 2023-09-07 13:27:00 [facility] FOR [facility] TREATMENT 2023-09-07 12:42:21 Doctor Unassigned, [place] [facility] COMP. METABOLIC PANEL ([id number]) 2023-09-04 02:29:00 Selene Parra [facility] CBC WITH DIFF 2023-09-04 02:29:00 Selene Parra [facility] RAPID INFLUENZA A/B 2023-09-04 02:26:00 Selene Parra [facility] COVID-19 (ID NOW RAPID TESTING) 2023-09-04 02:26:00 Selene Parra [facility] ASSIGNMENT OF BENEFITS 2023-09-04 02:07:25 Docto r Unassigned, [place] [facility] CONSENT/REFUSAL FOR DIAGNOSIS AND TREATMENT 2023-09-04 00:46:16 Doctor Unassigned, [place] [facility] CONSENT/REFUSAL FOR DIAGNOSIS AND TREATMENT 2023-08-04 03:55:32 Doctor Unassigned, [place] [facility] URINALYSIS 2023-07-26 08:52:00 Memo Resendiz [facility] URINALYSIS 2023-07-26 08:20:00 Memo Resendiz [facility] ASSIGNMENT OF BENEFITS 2023-07-26 08:05:43 Docto r Unassigned, [place] [facility] CONSENT/REFUSAL FOR DIAGNOSIS AND TREATMENT 2023-07-26 07:33:52 Doctor Unassigned, [place] [facility] RAPID STREP SCREEN FOR GROUP A 2023-07-25 13:40:00 Danii Neff [facility] RAPID INFLUENZA A/B 2023-07-25 13:40:00 Minal Neff [facility] COVID-19 (ID NOW RAPID TESTING) 2023-07-25 13:40:00 Danii Neff [facility] XR CHEST 2 VW 2023-07-25 13:26:06 Danii Neff [facility] ASSIGNMENT OF BENEFITS 2023-07-25 13:17:29 Docto r Unassigned, [place] [facility] CONSENT/REFUSAL FOR DIAGNOSIS AND TREATMENT 2023-07-25 12:29:51 Doctor Unassigned, [place] [facility] XR CHEST 2 VW 2023-07-12 13:13:00 Doni Marie [facility] POCT TEST 2023-07-12 12:56:00 Ryan Marie [facility] CONSENT/REFUSAL FOR DIAGNOSIS AND TREATMENT 2023-07-12 12:27:58 Doctor Unassigned, [place] [facility] [id number] Colposcopy Cervix Uppr/adjcnt Vagina W/cervix Bx 2023-06-26 00:00:00 Darryl Waggoner 58200 Endometrial Bx W/wo Endocervix Bx W/o Dilat Spx 2023-06-26 00:00:00 Darryl Waggoner CONSENT/REFUSAL FOR DIAGNOSIS AND TREATMENT 2023-06-24 10:15:34 Doctor Unassigned, [place] [facility] RAPID INFLUENZA A/B 2023-06-18 05:03:00 Michelle Kuo [facility] RAPID RSV 2023-06-18 05:03:00 Michelle Kuo [facility] COVID-19 (ID NOW RAPID TESTING) 2023-06-18 05:03:00 Michelle Kuo [facility] CONSENT/REFUSAL FOR DIAGNOSIS AND TREATMENT 2023-06-18 04:46:39 Doctor Unassigned, [place] [facility] US OVARY TORSION 2023-06-12 08:14:06 Raven Donnelly [facility] POCT TEST 2023-06-12 05:07:00 Raven Donnelly [facility] COMP. METABOLIC PANEL ([id number]) 2023-06-12 05:02:00 Raven Donnelly [facility] CBC WITH DIFF 2023-06-12 05:02:00 Raven Donnelly [facility] URINALYSIS 2023-06-12 05:02:00 Raven Donnelly [facility] NOTICE OF PRIVACY PRACTICES 2023-06-12 04:10:01 Doctor Unassigned, [place] [facility] CONSENT/REFUSAL FOR DIAGNOSIS AND TREATMENT 2023-06-12 04:06:29 Doctor Unassigned, [place] [facility] CT ABDOMEN PELVIS W CONTRAST 2023-05-28 07:44:47 Raven Donnelly [facility] POCT TEST 2023-05-28 06:40:00 Raven Donnelly [facility] COMP. METABOLIC PANEL ([id number]) 2023-05-28 06:34:00 Raven Donnelly [facility] CBC WITH DIFF 2023-05-28 06:34:00 Raven Donnelly [facility] URINALYSIS 2023-05-28 06:34:00 Raven Donnelly [facility] CONSENT/REFUSAL FOR DIAGNOSIS AND TREATMENT 2023-05-28 05:25:17 Doctor Unassigned, [place] [facility] 75169 Removal Impacted Cerumen Using Irrigation/lavage, Unilateral 2023-04-30 00:00:00 Darryl Waggoner ASSIGNMENT OF BENEFITS 2023-03-07 04:54:51 Docto r Unassigned, [place] [facility] RAPID STREP SCREEN FOR GROUP A 2023-03-07 03:52:00 Hermilo Manuel [facility] CONSENT/REFUSAL FOR DIAGNOSIS AND TREATMENT 2023-03-07 02:58:48 Doctor Unassigned, [place] [facility] BASIC METABOLIC PANEL (NA, K, CL, CO2, GLUCOSE, BUN, CREATININE, CA) 2023-02-02 06:41:00 Selene Parra [facility] CBC WITH DIFF 2023-02-02 06:41:00 Selene Parra [facility] POCT TEST 2023-02-02 06:17:00 Selene Parra [facility] NOTICE OF PRIVACY PRACTICES 2023-02-02 06:00:34 Doctor Unassigned, [place] [facility] CONSENT/REFUSAL FOR DIAGNOSIS AND TREATMENT 2023-02-02 05:59:54 Doctor Unassigned, [place] [facility] CT ABDOMEN PELVIS W CONTRAST 2022-10-24 20:00:18 Suraj Hunter [facility] US OVARY TORSION 2022-10-24 19:43:53 Suraj Hunter [facility] LIPASE 2022-10-24 18:58:00 Suraj Hunter [facility] COMP. METABOLIC PANEL ([id number]) 2022-10-24 18:58:00 Suraj Hunter [facility] CBC WITH DIFF 2022-10-24 18:58:00 [facility] 18:58:00 Suraj Hunter [facility] POCT TEST 2022-10-24 18:58:00 Odessa Hunter [facility] CBC WITH DIFF 2022-07-21 13:07:00 Hermilo Manuel [facility] POCT TEST 2022-07-21 12:55:00 Jeanine Manuel [facility] URINALYSIS 2022-07-21 12:52:00 Hermilo Manuel [facility] CONSENT/REFUSAL FOR DIAGNOSIS AND TREATMENT 2022-07-21 12:44:40 Doctor Unassigned, [place] [facility] CT ABDOMEN PELVIS W CONTRAST 2022-05-19 21:32:53 Cat Nguyen [facility] LIPASE 2022-05-19 20:49:00 Cat Nguyen [facility] COMP. METABOLIC PANEL ([id number]) 2022-05-19 20:49:00 Cat Nguyen [facility] CBC WITH DIFF 2022-05-19 20:49:00 Cat Nguyen [facility] URINALYSIS 2022-05-19 20:49:00 [facility] POCT TEST 2022-05-19 20:49:00 Paxton Nguyen [facility] URINE DRUG (IMMUNOASSAY) - COMPREHENSIVE DRUG SCREEN W/O REFLEX 2022-05-19 20:49:00 Cat Nguyen [facility] CONSENT/REFUSAL FOR DIAGNOSIS AND TREATMENT 2022-05-19 20:16:10 Doctor Unassigned, [place] [facility] POCT TEST 2022-05-13 07:37:00 Selene Parra [facility] LIPASE 2022-05-13 07:32:00 Selene Parra [facility] COMP. METABOLIC PANEL ([id number]) 2022-05-13 07:32:00 Selene Parra [facility] CBC WITH DIFF 2022-05-13 07:32:00 Selene Parra [facility] URINALYSIS 2022-05-13 07:32:00 Selene Parra [facility] CONSENT/REFUSAL FOR DIAGNOSIS AND TREATMENT 2022-05-13 06:55:55 Doctor Unassigned, [place] [facility] XR ANKLE <3 VW RIGHT 2022-04-01 22:28:50 Deny Rg [facility] URINALYSIS 2022-04-01 22:21:00 Christy Rg [facility] POCT TEST 2022-04-01 22:19:00 Christy Rg [facility] CONSENT/REFUSAL FOR DIAGNOSIS AND TREATMENT 2022-04-01 21:40:47 Doctor Unassigned, [place] [facility] POCT TEST 2021-10-25 19:54:00 Lisa Tran [facility] URINALYSIS 2021-10-25 19:53:00 Lisa Tran [facility] CONSENT/REFUSAL FOR DIAGNOSIS AND TREATMENT 2021-10-25 19:34:46 Doctor Unassigned, [place] [facility] NOTICE OF PRIVACY PRACTICES 2021-10-25 19:34:06 Doctor Unassigned, [place] [facility] Plan of Care Planned Activity Planned Date Details Comments Source Goal Plan of Care Note [code = 44922-5] Goal Plan of Care Note [code = 71168-6] Goal Plan of Care Note [code = 27378-9] Goal Plan of Care Note [code = 31967-0] Goal Plan of Care Note [code = 07482-6] Goal Plan of Care Note [code = 67331-9] Goal Plan of Care Note [code = 96299-2] Goal Plan of Care Note [code = 89244-4] Goal Plan of Care Note [code = 97522-4] Goal Plan of Care Note [code = 21166-3] Goal Plan of Care Note [code = 33654-3] Goal Plan of Care Note [code = 50335-8] Goal Plan of Care Note [code = 11633-7] Goal Plan of Care Note [code = 39592-8] Goal Plan of Care Note [code = 21545-8] Goal Plan of Care Note [code = 02688-5] Goal Plan of Care Note [code = 33395-7] Goal Plan of Care Note [code = 36875-4] Goal Plan of Care Note [code = 12977-3] Goal Plan of Care Note [code = 80037-9] Goal Plan of Care Note [code = 38847-8] Goal Plan of Care Note [code = 57213-9] Goal Plan of Care Note [code = 77755-8] Goal Plan of Care Note [code = 94970-7] Goal Plan of Care Note [code = 02999-3] Encounters Start Date/Time End Date/Time Encounter Type Admission Type Attending [facility] Facility Care Department Encounter ID Source 2024-08-25 14:31:29 2024-08-25 14:31:29 Outpatient S[facility] [id number] Darryl Ackerman Edilson 2024-08-25 00:00:00 2024-08-25 00:00:00 Outpatient Visit [facility] [id number] Darryl Tyron Edilson 2024-07-25 07:55:00 2024-07-25 10:46:00 Emergency X DONI MARIE DONNELL ALREGGIE [facility] [id number] [facility] 2024-07-25 07:55:00 2024-07-25 10:46:00 Emergency Doni Marie AT [facility] 1.2.840.114 350.1.13.10 4.2.7.2.686 [id number] [facility] 2024-07-09 15:24:23 2024-07-09 15:24:23 Outpatient S[facility] [id number] Darryl Waggoner 2024-07-09 00:00:00 2024-07-09 00:00:00 Outpatient Visit [facility] [id number] Darryl Waggoner 2024-07-04 02:23:00 2024-07-04 06:07:00 Emergency X CHELSEA PARRASELENE PUENTES [facility] ERT [id number] [facility] 2024-07-04 02:23:00 2024-07-04 06:07:00 Emergency RaquelmercedesorianaSelene S [facility] 1..840.114 350.1.13.10 4.2.7.2.686 [id number] [facility] 2024-03-18 13:39:14 2024-03-18 13:39:14 Outpatient S[facility] [id number] Darryl Waggoner 2024-03-18 00:00:00 2024-03-18 00:00:00 Outpatient Visit [facility] [id number] Darryl Waggoner 2024-03-12 02:06:00 2024-03-12 06:07:00 Emergency X RAQUELMERCEDESSELENE MONTANO [facility] ERT [id number] [facility] 2024-03-12 02:06:00 2024-03-12 06:07:00 Emergency Aida Chelseasiddharth S [facility] 1..840.114 350.1.13.10 4.2.7.2.686 [id number] [facility] 2024-03-06 11:34:36 2024-03-06 11:34:36 Outpatient S[facility] [id number] Darryl Waggoner 2024-03-06 00:00:00 2024-03-06 00:00:00 Outpatient Visit [facility] [id number] Darryl Waggoner 2024-02-03 03:57:00 2024-02-03 07:11:00 Emergency Selene Parra [facility] 1.2.840.114 350.1.13.10 4.2.7.2.686 [id number] [facility] 2024-01-01 22:28:00 2024-01-02 00:44:00 Emergency X DONI MARIE [facility] ERT [id number] [facility] 2024-01-01 22:28:00 2024-01-02 00:44:00 Emergency Doni Marie [facility] 1.2.840.114 350.1.13.10 4.2.7.2.686 [id number] [facility] 2023-12-31 15:24:49 2023-12-31 15:24:49 Outpatient SFA [facility] [id number] Darryl Waggoner 2023-12-26 03:53:00 2023-12-26 05:24:00 Emergency X SELENE PARRA [facility] ERT [id number] [facility] 2023-12-26 03:53:00 2023-12-26 05:24:00 Emergency Selene Parra [facility] 1.2.840.114 350.1.13.10 4.2.7.2.686 [id number] [facility] 2023-12-17 08:09:17 2023-12-17 08:09:17 Outpatient [facility] [id number] Darryl Waggoner 2023-11-20 06:45:00 2023-11-20 10:52:00 Emergency X DONI MARIE [facility] ERT [id number] [facility] 2023-11-20 06:45:00 2023-11-20 10:52:00 Emergency Doni Marie [facility] 1.2.840.114 350.1.13.10 4.2.7.2.686 [id number] [facility] 2023-11-14 13:08:33 2023-11-14 13:08:33 Outpatient SFA [facility] [id number] Darryl Waggoner 2023-11-12 00:13:00 2023-11-12 01:10:00 Emergency X ATIFJULIRA [facility] ERT [id number] [facility] 2023-11-12 00:13:00 2023-11-12 01:10:00 Emergency Juli Srivastavara Perez [facility] 1.2.840.114 350.1.13.10 4.2.7.2.686 [id number] [facility] 2023-10-27 20:33:00 2023-10-27 20:58:00 Emergency X Kavita AVILES [facility] ERT [id number] [facility] 2023-10-27 20:33:00 2023-10-27 20:58:00 Emergency Kavita Aviles Soledad [facility] 1.2.840.114 350.1.13.10 4.2.7.2.686 [id number] [facility] 2023-09-17 09:14:32 2023-09-17 09:14:32 Outpatient [facility] [id number] Darryl F Edilson 2023-09-08 18:32:00 2023-09-08 21:46:00 Emergency X CHRISTY RG [facility] ERT [id number] [facility] 2023-09-08 18:32:00 2023-09-08 21:46:00 Emergency Danie Barger Pamala G [facility] 1.2.840.114 350.1.13.10 4.2.7.2.686 [id number] [facility] 2023-09-07 06:47:00 2023-09-07 08:22:00 Emergency X CHAYO SRIVASTAVA [facility] ERT [id number] [facility] 2023-09-07 06:47:00 2023-09-07 08:22:00 Emergency Chayo Srivastava [facility] 1.2.840.114 350.1.13.10 4.2.7.2.686 [id number] [facility] 2023-09-03 18:57:00 2023-09-03 22:03:00 Emergency X RAQUELMERCEDESJAMES MONTANOJOSE A [facility] ERT [id number] [facility] 2023-09-03 18:57:00 2023-09-03 22:03:00 Emergency Selene Parra [facility] 1.2.840.114 350.1.13.10 4.2.7.2.686 [id number] [facility] 2023-08-28 16:44:07 2023-08-28 16:44:07 Outpatient [facility] [id number] Darryl Waggoner 2023-08-03 23:07:00 2023-08-04 01:08:00 Emergency X Kavita AVILES [facility] ERT [id number] [facility] 2023-08-03 23:07:00 2023-08-04 01:08:00 Emergency Kavita Aviles [facility] 1.2.840.114 350.1.13.10 4.2.7.2.686 [id number] [facility] 2023-07-26 02:41:00 2023-07-26 04:25:00 Emergency X MEMO RESENDIZ [facility] ERT [id number] [facility] 2023-07-26 02:41:00 2023-07-26 04:25:00 Emergency Memo Resendiz [facility] 1.2.840.114 350.1.13.10 4.2.7.2.686 [id number] [facility] 2023-07-25 07:36:00 2023-07-25 10:13:00 Emergency X DANII NEFF [facility] ERT [id number] [facility] 2023-07-25 07:36:00 2023-07-25 10:13:00 Emergency Rose Hoff Roxanne [facility] 1.2.840.114 350.1.13.10 4.2.7.2.686 [id number] [facility] 2023-07-24 08:14:55 2023-07-24 08:14:55 Outpatient [facility] [id number] Darryl Waggoner 2023-07-12 07:35:00 2023-07-12 09:00:00 Emergency X DONI MARIE [facility] ERT [id number] [facility] 2023-07-12 07:35:00 2023-07-12 09:00:00 Emergency Doni Marie [facility] 1.2.840.114 350.1.13.10 4.2.7.2.686 [id number] [facility] 2023-07-02 13:54:28 2023-07-02 13:54:28 Outpatient [facility] [id number] Darryl Waggoner 2023-06-26 13:20:40 2023-06-26 13:20:40 Outpatient [facility] [id number] Darryl Waggoner 2023-06-24 05:33:00 2023-06-24 06:50:00 Emergency X SELENE PARRA [facility] ERT [id number] [facility] 2023-06-24 05:33:00 2023-06-24 06:50:00 Emergency Selene Parra [facility] 1.2.840.114 350.1.13.10 4.2.7.2.686 [id number] [facility] 2023-06-20 16:08:31 2023-06-20 16:08:31 Outpatient [facility] [id number] Darryl Waggoner 2023-06-17 23:54:00 2023-06-18 01:35:00 Emergency X MICHELLE KUO [facility] ERT [id number] [facility] 2023-06-17 23:54:00 2023-06-18 01:35:00 Emergency Michelle Kuo Lee [facility] 1.2.840.114 350.1.13.10 4.2.7.2.686 [id number] [facility] 2023-06-16 10:56:55 2023-06-16 10:56:55 Outpatient [facility] [id number] Darryl Waggoner 2023-06-14 13:35:05 2023-06-14 13:35:05 Outpatient [facility] [id number] Darryl Waggoner 2023-06-12 11:11:07 2023-06-12 11:11:07 Outpatient [facility] [id number] Darryl Waggoner 2023-06-11 23:25:00 2023-06-12 04:49:00 Emergency X RAVEN DONNELLY [facility] ERT [id number] [facility] 2023-06-11 23:25:00 2023-06-12 04:49:00 Emergency Raven Donnelly [facility] 1.2.840.114 350.1.13.10 4.2.7.2.686 [id number] [facility] 2023-06-05 11:34:51 2023-06-05 11:34:51 Outpatient [facility] [id number] Darryl Waggoner 2023-05-28 08:05:43 2023-05-28 08:05:43 Outpatient [facility] [id number] Darryl Waggoner 2023-05-28 00:40:00 2023-05-28 04:06:00 Emergency X RAVEN DONNELLY [facility] ERT [id number] [facility] 2023-05-28 00:40:00 2023-05-28 04:06:00 Emergency Raven Donnelly [facility] 1.840.114 350.1.13.10 4.2.7.2.686 [id number] [facility] 2023-05-28 00:00:00 2023-05-28 00:00:00 Orders Only Doctor Unassigned, Abeytas [facility] 1.840.114 350.1.13.10 4.2.7.2.686 [id number] [facility] 2023-04-30 13:49:49 2023-04-30 13:49:49 Outpatient [facility] [id number] Darryl Waggoner 2023-04-23 08:52:34 2023-04-23 08:52:34 Outpatient [facility] [id number] Darryl Waggoner 2023-03-06 22:52:00 2023-03-07 00:12:00 Emergency HERMILO OLSEN [facility] ERT [id number] [facility] 2023-03-06 22:52:00 2023-03-07 00:12:00 Emergency Hermilo Manuel [facility] 1.2840.114 350.1.13.10 4.2.7.2.686 [id number] [facility] 2023-02-02 01:06:00 2023-02-02 02:49:00 Emergency X SELENE PARRA [facility] ERT [id number] [facility] 2023-02-02 01:06:00 2023-02-02 02:49:00 Emergency Selene Parra [facility] 1.2.840.114 350.1.13.10 4.2.7.2.686 [id number] [facility] 2023-02-02 00:00:00 2023-02-02 00:00:00 Orders Only Doctor Unassigned, Abeytas [facility] 1.2840.114 350.1.13.10 4.2.7.2.686 [id number] [facility] 2022-10-24 12:04:00 2022-10-24 15:45:00 Emergency X SURAJ HUNTER [facility] ERT [id number] [facility] 2022-10-24 12:04:00 2022-10-24 15:45:00 Emergency Suraj Hunter [facility] 1.84.114 350.1.13.10 4.2.7.2.686 [id number] [facility] 2022-09-25 10:04:19 2022-09-25 10:04:19 Outpatient [facility] [id number] Darryl Waggoner 2022-09-25 00:00:00 2022-09-25 00:00:00 Outpatient Visit [id number] 2022-07-21 07:49:00 2022-07-21 08:56:00 Emergency X HERMILO MANUEL [facility] ERT [id number] [facility] 2022-07-21 07:49:00 2022-07-21 08:56:00 Emergency Hermilo Manuel [facility] 1.84.114 350.1.13.10 4.2.7.2.686 [id number] 084 [id number] [facility] 2022-05-19 15:38:00 2022-05-19 17:24:00 Emergency X CAT NGUYEN [facility] ERT [id number] [facility] 2022-05-19 15:38:00 2022-05-19 17:24:00 Emergency Cat Nguyen [facility] 1.2840.114 350.1.13.10 4.2.7.2.686 [id number] [id number] [facility] 2022-05-19 00:00:00 2022-05-19 00:00:00 Outpatient Visit [id number] cb00bc 2022-05-13 02:08:00 2022-05-13 04:24:00 Emergency Selene Parra [facility] 1.840.114 350.1.13.10 4.2.7.2.686 [id number] [facility] 2022-05-13 02:08:00 2022-05-13 04:24:00 Emergency X CHELSEA PARRASIDDHARTH [facility] ERT [id number] [facility] 2022-04-01 16:48:00 2022-04-01 18:39:00 Emergency X JANKICAROLINA PINOALA [facility] ERT [id number] [facility] 2022-04-01 16:48:00 2022-04-01 18:39:00 Emergency Christy Rg [facility] 1.0.114 350.1.13.10 4.2.7.2.686 [id number] [id number] [facility] 2022-04-01 00:00:00 2022-04-01 00:00:00 Orders Only Doctor Unassigned, [place] [facility] 1.2840.114 350.1.13.10 4.2.7.2.686 [id number] [id number] [facility] 2021-10-25 13:44:00 2021-10-25 15:25:00 Emergency X LISA TRAN [facility] ERT [id number] [facility] 2021-10-25 13:44:00 2021-10-25 15:25:00 Emergency Lisa Tran [facility] 1.2.840.114 350.1.13.10 4.2.7.2.686 [id number] [id number] [facility] 2021-10-25 00:00:00 2021-10-25 00:00:00 Orders Only Doctor Unassigned, [place] [facility] 1.2.840.114 350.1.13.10 4.2.7.2.686 [id number] [id number] [facility] 2021-05-03 17:49:00 2021-05-04 02:46:00 Emergency [facility] [id number] [facility] 2021-04-16 21:16:42 2021-04-22 13:04:00 Inpatient [facility] [id number] [facility] 2021-04-08 17:04:00 2021-04-08 17:04:00 Emergency X ROCHELLE GOLD [facility] ERT [id number] [facility] 2021-04-08 02:42:00 2021-04-08 02:42:00 Emergency X LISA TRAN [facility] ERT [id number] [facility] 2021-03-24 18:36:00 2021-03-24 18:36:00 Emergency X [facility] ERT [id number] [facility] Results Test Description Test Time Test [...] identified. No acute bony abnormality is present. [facility] [id number] 09:44:53Examination: Computed tomography of the abdomen and [...] show no suspicious lytic or blastic bony lesion.[facility] [id number] 07:36:00 * Test Item Value Reference Range Interpretation Comme nts POCT PREG (test code = 1605) Negative On board controls acceptable with C Line (test code = 3574) Yes POCT PREG LOT # (test code = 3575) [id number] POCT PREG TEST DATE ( test code = 3576) 07/24/2025 Lab Interpretation (test cod e = 37042-7) Normal [facility] ABDOMEN PELVIS W [id number] 10:12:02Examination: Computed tomography of the abdomen and [...] most likely a hemangioma, and unchanged. A Donnelly catheterpresent on this exam. The gallbladder, spleen, [...] show no suspicious lytic or blastic bony lesion.[facility]. Metabolic Panel ([id number])2024-03-12 09:27:38* Test Item Value Reference Range Interpretation Comme nts NA (test code = 0838820434) 137 mmol/L 135-145 K (test code = 4906471485) 3.8 mmol/L 3.5-5.0 CL (test code = 1903099389) 107 mmol/L 98-108 CO2 TOTAL (test code = 6646111768) 20 mmol/L 23-31 L AGAP (test code = 7639818535) 10 2-16 BUN (test code = 5956049529) 6 mg/dL 7-23 L GLUCOSE (test code = 0901658690) 94 mg/dL 70-110 CREATININE (test code = 2160-0) 0.83 mg/dL 0.50-1.04 TOTAL BILI (test code = 3187926284) 0.4 mg/dL 0.1-1.1 CALCIUM (test code = 2548878481) 9.2 mg/dL 8.6-10.6 T PROTEIN (test code = 4491828181) 7.6 g/dL 6.3-8.2 ALBUMIN (test code = 4722108065) 4.2 g/dL 3.5-5.0 ALK PHOS (test code = 0533221091) 73 U/L 34-122 ALTv (test code = 1742-6) 18 U/L 5-35 AST(SGOT) (test code = 1997952088) 24 U/L 13-40 eGFR (test code = 04383-2) 96.2 mL/min/1.73m2 CKD-EPI eGFR (2020). Assuming creatinine has been stable day-to-day for at least three months, the eGFR indicates Category G1 (>= 90 mL/min/1.73 m2) Lab Interpretation (test code = 14729-4) Abnormal [facility]2024-05-29 09:26:57* Test Item Value Reference Range Interpretation Comme nts LIPASE (test code = 1577694529) 108 U/L 0-220 Lab Interpretation (test cod e = 93260-8) Normal [facility] CampusCbc with [id number] 09:13:56* Test Item Value Reference Range Interpretation [...] g/dL 31.6-35.1 L RDW-SD (test code = 41136-9) 42.4 fL 39.0-49.9 RDW-CV (test code = 788-0) 15.7 % 12.0-15.5 H PLT (test code = 777-3) 346 166-358 MPV (test code = 78216-8) 9.8 fL 9.5-12.9 NRBC/100 WBC (test code = 0881630722) 0.0 0.0-10.0 NRBC x10^3 (test code = 9200496835) See_Comment [Automated messa ge] The system which generated this result transmitted reference range: 10*3/?L. The reference range was not used to interpret this result as normal/abnormal. YANI CORNEJO (NEUT) % (test code = 770-8) 43.3 % IMM GRAN % (test code = 7501625616) 0.30 % LYMPH % (test code = 736-9) 42.6 % MONO % (test code = 5905-5) 7.5 % EOS % (test code = 713-8) 5.5 % BASO % (test code = 706-2) 0.8 % GRAN MAT x10^3(ANC) (test code = 0280144778) 3.21 10*3/uL 1.88-7.09 IMM GRAN x10^3 (test code = 6294440318) 0.00-0.06 LYMPH x10^3 (test code = 731-0) 3.16 10*3/uL 1.32-3.29 MONO x10^3 (test code = 742-7) 0.56 10*3/uL 0.33-0.92 EOS x10^3 (test code = 711-2) 0.41 10*3/uL 0.03-0.39 H BASO x10^3 (test code = 704-7) 0.06 10*3/uL 0.01-0.07 Lab Interpretation (test code = 73202-5) Abnormal [facility] CampusEBV-Mononucleosis [id number] 11:45:15* Test Item Value Reference Range Interpretation Comme nts EBV Mononucleosis Screen (te st code = 9853117239) Negative Negative Lab Interpretation (test cod e = 38613-1) Normal [facility]CT ABDOM[facility] PELVIS W [id number] 10:26:21ORDERING PHYSICIAN: SELENE PARRA CLINICAL HISTORY: Abdominal [...] the pelvis. Appendixis normal. The bones are unremarkable.[facility] CampusPOAL [id number] 09:09:00* Test Item Value Reference Range Interpretation Comme nts POCT PREG (test code = 1605) Negative On board controls acceptable with C Line (test code = 3574) Yes POCT PREG LOT # (test code = 3575) [id number] POCT PREG TEST DATE ( test code = 3576) 11/21/2024 Lab Interpretation (test cod e = 14464-3) Normal [facility] [id number] 00:00:00* Test Item Value Reference Range Interpretation Comme nts DIAGNOSIS: (test code = 8200) (NOTE) COMMENTS: (test code = 8205) (NOTE) MICROSCOPIC DESCRIPTION: (te st code = 8210) (NOTE) CLINICAL DATA: (test code = 8401) (NOTE) GROSS DESCRIPTION: (test code = 8220) (NOTE) PATHOLOGIST: (test code = 8250) (NOTE) CPT: (test code = 8400) (NOTE) PDFE (test code = PDFReport) PDF [facility] [id number] 00:00:00* Test Item Value Reference Range Interpretation Comme nts DIAGNOSIS: (test code = 8200) (NOTE) COMMENTS: (test code = 8205) (NOTE) MICROSCOPIC DESCRIPTION: (te st code = 8210) (NOTE) CLINICAL DATA: (test code = 8401) (NOTE) GROSS DESCRIPTION: (test code = 8220) (NOTE) PATHOLOGIST: (test code = 8250) (NOTE) CPT: (test code = 8400) (NOTE) PDFE (test code = PDFReport) PDF [facility]ck[facility] [id number] 00:00:00* Test Item Value Reference Range Interpretation [...] code = PDFReport) PDF Darryl WaggonerSURGICAL PATHOLOGY [id number] 00:00:00* Test Item Value Reference Range Interpretation [...] code = PDFReport) PDF Darryl Chang OVARY [id number] 16:27:21EXAM: US OVARY TORSION HISTORY: 32 years [...] None [place]: Trace volume free fluid is present.[facility]CT ABDOMEN PELVIS W [id number] 15:15:04EXAM: CT ABDOMEN PELVIS W CONTRAST HISTORY: [...] No suspicious lytic or sclerotic bony lesions arepresent.[facility] [place]. METABOLIC PANEL (91823)2023-11-20 14:09:45* Test Item Value Reference Range Interpretation Comme nts NA (test code = 1064671571) 135 mmol/L 135-145 K (test code = 8416732875) 4.1 mmol/L 3.5-5.0 CL (test code = 2572509236) 112 mmol/L 98-108 H CO2 TOTAL (test code = 7378283751) 17 mmol/L 23-31 L AGAP (test code = 0384060635) 6 2-16 BUN (test code = 0068802770) 10 mg/dL 7-23 GLUCOSE (test code = 1175983843) 95 mg/dL 70-110 CREATININE (test code = 5597559905) 0.72 mg/dL 0.50-1.04 TOTAL BILI (test code = 3636267494) 0.2 mg/dL 0.1-1.1 CALCIUM (test code = 6566709649) 9.0 mg/dL 8.6-10.6 T PROTEIN (test code = 3955355804) 7.6 g/dL 6.3-8.2 ALBUMIN (test code = 2378649978) 4.3 g/dL 3.5-5.0 ALK PHOS (test code = 2270688975) 81 U/L 34-122 ALTv (test code = 1742-6) 23 U/L 5-35 AST(SGOT) (test code = 9260786146) 26 U/L 13-40 eGFR (test code = 84164-5) 114.8 mL/min/1.73m2 CKD-EPI eGFR (2020). Assuming creatinine has been stable day-to-day for at least three months, the eGFR indicates Category G1 (>= 90 mL/min/1.73 m2) Lab Interpretation (test code = 11945-2) Abnormal [facility] CampusCB WITH [id number] 13:53:43* Test Item Value Reference Range Interpretation [...] g/dL 31.6-35.1 L RDW-SD (test code = 97751-1) 42.6 fL 39.0-49.9 RDW-CV (test code = 788-0) 15.5 % 12.0-15.5 PLT (test code = 777-3) 364 166-358 H MPV (test code = 48901-2) 10.0 fL 9.5-12.9 NRBC/100 WBC (test code = 9285727945) 0.0 0.0-10.0 NRBC x10^3 (test code = 7920624856) See_Comment [Automated messa ge] The system which generated this result transmitted reference range: 10*3/?L. The reference range was not used to interpret this result as normal/abnormal. GRAN MAT (NEUT) % (test code = 770-8) 59.8 % IMM GRAN % (test code = 3847913392) 0.30 % LYMPH % (test code = 736-9) 27.8 % MONO % (test code = 5905-5) 9.2 % EOS % (test code = 713-8) 2.1 % BASO % (test code = 706-2) 0.8 % GRAN MAT x10^3(ANC) (test code = 8417437075) 3.70 10*3/uL 1.88-7.09 IMM GRAN x10^3 (test code = 5650183073) 0.00-0.06 LYMPH x10^3 (test code = 731-0) 1.72 10*3/uL 1.32-3.29 MONO x10^3 (test code = 742-7) 0.57 10*3/uL 0.33-0.92 EOS x10^3 (test code = 711-2) 0.13 10*3/uL 0.03-0.39 BASO x10^3 (test code = 704-7) 0.05 10*3/uL 0.01-0.07 Lab Interpretation (test code = 61167-4) Abnormal [facility] [id number] 13:26:00* Test Item Value Reference Range Interpretation Comme nts POCT PREG (test code = 1605) Negative On board controls acceptable with C Line (test code = 3574) Yes POCT PREG LOT # (test code = 3575) [id number] POCT PREG TEST DATE ( test code = 3576) 01/20/2025 Lab Interpretation (test cod e = 45833-7) Normal [facility]POCT [id number] 13:28:00* Test Item Value Reference Range Interpretation Comme nts POCT PREG (test code = 1605) Negative On board controls acceptable with C Line (test code = 3574) Yes POCT PREG LOT # (test code = 3575) [id number] POCT PREG TEST DATE ( test code = 3576) 12/23/2024 Lab Interpretation (test cod e = 96648-0) [facility], [id number] 00:00:00* Test Item Value Reference Range Interpretation Comme nts TRICHOMONAS, NAAT, URINE (te st code = 06804) NEGATIVE Darryl F AustinCT/NG, TMA, [id number] 00:00:00* Test Item Value Reference Range Interpretation Comme nts CHLAMYDIA, NAAT, URINE (test code = 83581) NEGATIVE GONORRHEA, NAAT, URINE (test code = 98674) NEGATIVE Darryl F AustinTRICHOMONAS, URINE, [id number] 00:00:00* Test Item Value Reference Range Interpretation Comme nts TRICHOMONAS, NAAT, URINE (te st code = 83698) NEGATIVE Darryl F AustinCT/NG, TMA, [id number] 00:00:00* Test Item Value Reference Range Interpretation Comme nts CHLAMYDIA, NAAT, URINE (test code = 63330) NEGATIVE GONORRHEA, NAAT, URINE (test code = 21886) NEGATIVE Darryl F AustinTRICHOMONAS, URINE, [id number] 00:00:00* Test Item Value Reference Range Interpretation Comme nts TRICHOMONAS, NAAT, URINE (te st code = 36425) NEGATIVE Darryl F AustinCT/NG, TMA, [id number] 00:00:00* Test Item Value Reference Range Interpretation Comme nts CHLAMYDIA, NAAT, URINE (test code = 62733) NEGATIVE GONORRHEA, NAAT, URINE (test code = 02961) NEGATIVE Darryl F AustinTRICHOMONAS, URINE, [id number] 00:00:00* Test Item Value Reference Range Interpretation Comme nts TRICHOMONAS, NAAT, URINE (te st code = 47324) NEGATIVE Darryl F AustinCT/NG, TMA, [id number] 00:00:00* Test Item Value Reference Range Interpretation Comme nts CHLAMYDIA, NAAT, URINE (test code = 19840) NEGATIVE GONORRHEA, NAAT, URINE (test code = 66345) NEGATIVE Darryl WaggonerPOCT [id number] 12:56:00* Test Item Value Reference Range Interpretation Comme nts POCT PREG (test code = 1605) Negative On board controls acceptable with C Line (test code = 3574) Yes POCT PREG LOT # (test code = 3575) HCG [id number] POCT PREG TEST DATE (test code = 3576) 12/12/2024 Lab Interpretation (test cod e = 45011-1) Normal [facility] [id number] 00:00:00* Test Item Value Reference Range Interpretation Comme nts DIAGNOSIS: (test code = 8200) (NOTE) MICROSCOPIC DESCRIPTION: (te st code = 8210) (NOTE) CLINICAL DATA: (test code = 8401) (NOTE) GROSS DESCRIPTION: (test code = 8220) (NOTE) PATHOLOGIST: (test code = 8250) (NOTE) CPT: (test code = 8400) (NOTE) PDFE (test code = PDFReport) PDF [facility]ckerman [facility] [id number] 00:00:00* Test Item Value Reference Range Interpretation Comme nts DIAGNOSIS: (test code = 8200) (NOTE) MICROSCOPIC DESCRIPTION: (te st code = 8210) (NOTE) CLINICAL DATA: (test code = 8401) (NOTE) GROSS DESCRIPTION: (test code = 8220) (NOTE) PATHOLOGIST: (test code = 8250) (NOTE) CPT: (test code = 8400) (NOTE) PDFE (test code = PDFReport) PDF Darryl Ackerman [place] [id number] 00:00:00* Test Item Value Reference Range Interpretation Comme nts DIAGNOSIS: (test code = 8200) (NOTE) MICROSCOPIC DESCRIPTION: (te st code = 8210) (NOTE) CLINICAL DATA: (test code = 8401) (NOTE) GROSS DESCRIPTION: (test code = 8220) (NOTE) PATHOLOGIST: (test code = 8250) (NOTE) CPT: (test code = 8400) (NOTE) PDFE (test code = PDFReport) PDF Darryl Ackerman AustinSURGICAL PATHOLOGY [id number] 00:00:00* Test Item Value Reference Range Interpretation Comme nts DIAGNOSIS: (test code = 8200) (NOTE) MICROSCOPIC DESCRIPTION: (te st code = 8210) (NOTE) CLINICAL DATA: (test code = 8401) (NOTE) GROSS DESCRIPTION: (test code = 8220) (NOTE) PATHOLOGIST: (test code = 8250) (NOTE) CPT: (test code = 8400) (NOTE) PDFE (test code = PDFReport) PDF Darryl Ackerman AustinVAGINAL PATHOGENS DNA [id number] 00:00:00* Test Item Value Reference Range Interpretation Comme nts JAZ SPECIES (test code = 49625) NEGATIVE G. VAGINALIS (test code = 13531) NEGATIVE T. VAGINALIS (test code = 69584) NEGATIVE Darryl Ackerman AustinVAGINAL PATHOGENS DNA [id number] 00:00:00* Test Item Value Reference Range Interpretation Comme nts JAZ SPECIES (test code = 48557) NEGATIVE G. VAGINALIS (test code = 07436) NEGATIVE T. VAGINALIS (test code = 53644) NEGATIVE Darryl Ackerman AustinVAGINAL PATHOGENS DNA [id number] 00:00:00* Test Item Value Reference Range Interpretation Comme nts JAZ SPECIES (test code = 51995) NEGATIVE G. VAGINALIS (test code = 72103) NEGATIVE T. VAGINALIS (test code = 52737) NEGATIVE Darryl Ackerman AustinVAGINAL PATHOGENS DNA [id number] 00:00:00* Test Item Value Reference Range Interpretation Comme nts JAZ SPECIES (test code = 64090) NEGATIVE G. VAGINALIS (test code = 88067) NEGATIVE T. VAGINALIS (test code = 08003) NEGATIVE Darryl Ackerman AustinCOMP. METABOLIC PANEL (16407)2023-06-12 05:34:53* Test Item Value Reference Range Interpretation Comme nts NA (test code = 5627343982) 137 mmol/L 135-145 K (test code = 1961331217) 3.9 mmol/L 3.5-5.0 CL (test code = 7141253059) 106 mmol/L 98-108 CO2 TOTAL (test code = 4802357009) 24 mmol/L 23-31 AGAP (test code = 1928628668) 7 2-16 BUN (test code = 6670073949) 10 mg/dL 7-23 GLUCOSE (test code = 1013354431) 90 mg/dL 70-110 CREATININE (test code = 0875196126) 0.94 mg/dL 0.50-1.04 TOTAL BILI (test code = 8529830513) 0.1-1.1 L CALCIUM (test code = 6108981150) 9.1 mg/dL 8.6-10.6 T PROTEIN (test code = 5572349036) 6.9 g/dL 6.3-8.2 ALBUMIN (test code = 5095726371) 4.1 g/dL 3.5-5.0 ALK PHOS (test code = 5266692917) 72 U/L 34-122 ALTv (test code = 1742-6) 24 U/L 5-35 AST(SGOT) (test code = 3548404656) 28 U/L 13-40 eGFR (test code = 5307249504) 69.5 mL/min/1.73m2 ELIA (test code = ELIA) [...] imaging tests). Lab Interpretation (test code = 11661-6) Abnormal [facility] WITH [id number] 05:16:33* Test Item Value Reference Range Interpretation Comme nts WBC (test code = 6690-2) 7.81 See_Comment [Automated [place] ge] The system which generated this result transmitted reference range: 4.30 - 11.10 10*3/?L. The reference range was not used to interpret this result as normal/abnormal. RBC (test code = 789-8) 3.89 See_Comment L [Automated [place] ge] The system which generated this result [...] g/dL 31.6-35.1 L RDW-SD (test code = 66572-8) 48.2 fL 39.0-49.9 RDW-CV (test code = 788-0) 17.9 % 12.0-15.5 H PLT (test code = 777-3) 327 See_Comment [Automated [place] ge] The system which generated this result transmitted reference range: 166 - 358 10*3/?L. The reference range was not used to interpret this result as normal/abnormal. MPV (test code = 31350-2) 9.7 fL 9.5-12.9 NRBC/100 WBC (test code = 9915239921) 0.0 See_Comment [Automated [employer] ssage] The system which generated this result transmitted reference range: 0.0 - 10.0 /100 WBCs. The reference range was not used to interpret this result as normal/abnormal. NRBC x10^3 (test code = 9039061405) See_Comment [Automated messa ge] The system which generated this result transmitted reference range: 10*3/?L. The reference range was not used to interpret this result as normal/abnormal. GRAN MAT (NEUT) % (test code = 770-8) 40.4 % IMM GRAN % (test code = 1079349033) 0.10 % LYMPH % (test code = 736-9) 45.5 % MONO % (test code = 5905-5) 9.0 % EOS % (test code = 713-8) 4.5 % BASO % (test code = 706-2) 0.5 % GRAN MAT x10^3(ANC) (test code = 3534642432) 3.16 10*3/uL 1.88-7.09 IMM GRAN x10^3 (test code = 6629145051) 0.00-0.06 LYMPH x10^3 (test code = 731-0) 3.55 10*3/uL 1.32-3.29 H MONO x10^3 (test code = 742-7) 0.70 10*3/uL 0.33-0.92 EOS x10^3 (test code = 711-2) 0.35 10*3/uL 0.03-0.39 BASO x10^3 (test code = 704-7) 0.04 10*3/uL 0.01-0.07 Lab Interpretation (test code = 97547-7) Abnormal [facility] [id number] 05:07:00* Test Item Value Reference Range Interpretation Comme nts POCT PREG (test code = 1605) Negative On board controls acceptable with C Line (test code = 3574) Yes POCT PREG LOT # (test code = 3575) [id number] POCT PREG TEST DATE ( test code = 3576) 10/17/2024 Lab Interpretation (test cod e = 77237-1) Normal [facility] CampusPAP TEST, THINPREP, [id number] 18:32:20 * Test Item Value Reference Range Interpretation Comme nts SOURCE: (test code = 8001) Cervical SLIDES: (test code = 8011) 1 LMP: (test code = 8021) 05/17/2023 SPECIMEN ADEQUACY: (test code = 31130) (NOTE) Satisfactory for evaluation. Endocervical cells/transformation zone component present. INTERPRETATION: (test code = 47531) ASCUS/EPITH. ABNORMALITY; SEE BELOW A - ------- EPITHELIAL CELL ABNORMALITY Atypical squamous cells of undetermined significance (ASC-US) OTHER COMMENTS: (test code = 8081) (NOTE) Trichomonas v aginalis present. EHS TEACHER: (test code = 8101) TIERA Mcgee(ASC P) PATHOLOGIST INTERPRETATION BY: (test code = 8122) Joana Luna DO LOCATION: (test code = 41420) (NOTE) Specimens proces sed and interpreted at [facility] , [address] [place] [address], , CLIA: [id number] CPT: (test code = 8140) (NOTE) 16107, 84459 UNL ESS OTHERWISE INDICATED, COMPUTER AIDED AND EHS TEACHER SCREENING PERFORMED. The Pap test is a screening test with an inherent, but low probability of error. Your patient should be reminded to consult you immediately if she experiences any suspicious signs or symptoms, regardless of her Pap test result. An alternate report format containing images or consolidated prior Pap history is available as applicable. PAP TEST, THINPREP, [id number] 00:00:00* Test Item Value Reference Range Interpretation Comme nts SOURCE: (test code = 8001) Cervical SLIDES: (test code = 8011) 1 LMP: (test code = 8021) 05/17/2023 SPECIMEN ADEQUACY: (test code = 00533) (NOTE) INTERPRETATION: (test code = 08306) ASCUS/EPITH. ABNORMALITY; SEE BELOW OTHER COMMENTS: (test code = 8081) (NOTE) EHS TEACHER: (test code = 8101) TIERA Mcgee(ASCP) PATHOLOGIST INTERPRETATION BY: (test code = 8122) Joana Luna DO LOCATION: (test code = 51294) (NOTE) CPT: (test code = 8140) (NOTE) Darryl Tyron AbbeP TEST, THINPREP, [id number] 00:00:00* Test Item Value Reference Range Interpretation Comme nts SOURCE: (test code = 8001) Cervical SLIDES: (test code = 8011) 1 LMP: (test code = 8021) 05/17/2023 SPECIMEN ADEQUACY: (test code = 27936) (NOTE) INTERPRETATION: (test code = 17068) ASCUS/EPITH. ABNORMALITY; SEE BELOW OTHER COMMENTS: (test code = 8081) (NOTE) EHS TEACHER: (test code = 8101) TIERA Mcgee(ASCP) PATHOLOGIST INTERPRETATION BY: (test code = 8122) Joana Luna DO LOCATION: (test code = 12317) (NOTE) CPT: (test code = 8140) (NOTE) Darryl McadamsP TEST, THINPREP, [id number] 00:00:00* Test Item Value Reference Range Interpretation Comme nts SOURCE: (test code = 8001) Cervical SLIDES: (test code = 8011) 1 LMP: (test code = 8021) 05/17/2023 SPECIMEN ADEQUACY: (test code = 36712) (NOTE) INTERPRETATION: (test code = 69095) ASCUS/EPITH. ABNORMALITY; SEE BELOW OTHER COMMENTS: (test code = 8081) (NOTE) EHS TEACHER: (test code = 8101) TIERA Mcgee(ASCP) PATHOLOGIST INTERPRETATION BY: (test code = 8122) Joana Lnua DO LOCATION: (test code = 54334) (NOTE) CPT: (test code = 8140) (NOTE) Darryl McadamsP TEST, THINPREP, [id number] 00:00:00* Test Item Value Reference Range Interpretation Comme nts SOURCE: (test code = 8001) Cervical SLIDES: (test code = 8011) 1 LMP: (test code = 8021) 05/17/2023 SPECIMEN ADEQUACY: (test code = 18063) (NOTE) INTERPRETATION: (test code = 57134) ASCUS/EPITH. ABNORMALITY; SEE BELOW OTHER COMMENTS: (test code = 8081) (NOTE) EHS TEACHER: (test code = 8101) TIERA Mcgee(ASCP) PATHOLOGIST INTERPRETATION BY: (test code = 8122) Joana Luna DO LOCATION: (test code = 65191) (NOTE) CPT: (test code = 8140) (NOTE) Darryl Ackerman AustinCT/NG, NAAT, [id number] 20:10:21* Test Item Value Reference Range Interpretation Comme nts CHLAMYDIA, NAAT, URINE (test code = 52641) POSITIVE NEGATIVE A Testing is perfo rmed with Lucie HARRY 6800/8800 systems usingreal-time polymerase chain reaction (PCR) method. GONORRHEA, NAAT, URINE (test code = 82859) NEGATIVE NEGATIVE Testing is perfo rmed with Lucie HARRY 6800/8800 systems usingreal-time polymerase chain reaction (PCR) method. A negative result does not exclude low level infection, specimensampling error, or collection error. UNLESS OTHERWISE INDICATED, ALL TESTING PERFORMED AT [facility] [address] [place] [address] LIBRARIAN SPECIALIST: ANIBAL PARDEES M.D. [place] NUMBER [id number] [facility] [place]. [id number] HPV HIGH RISK WITH GENOTYPE, [id number] 17:33:46* Test Item Value Reference Range Interpretation Comme nts HPV HIGH RISK INTERP (test code = 12763) POSITIVE NEGATIVE A HPV 16 (test code = 86983) POSITIVE A HPV 18 (test code = 74795) NEGATIVE HPV, HR, OTHER GENOTYPES (test code = 30557) NEGATIVE Testing methodol ogy is real-time PCR [...] [facility]. [address] [place], [place] [address] LIBRARIAN SPECIALIST: ANIBAL PAREDES M.D. CLIA NUMBER [id number] [place]. [id number] VAGINAL PATHOGENS DNA [id number] 16:55:18* Test Item Value Reference Range Interpretation Comme nts JAZ SPECIES (test code = 44137) NEGATIVE NEGATIVE G. VAGINALIS (test code = 35294) NEGATIVE NEGATIVE T. VAGINALIS (test code = 09844) NEGATIVE NEGATIVE Note: The [facility] VPIII Microbial Identification Testis a DNA probe test intended for use in the detectionand identification of Jaz species, Gardnerellavaginalis and Trichomonas vaginalis nucleic acid. UNLESS OTHERWISE INDICATED, ALL TESTING PERFORMED AT [facility], [facility]. [address] [place] [address] LIBRARIAN SPECIALIST: ANIBAL PAREDES M.D. CLIA NUMBER [id number] [place]. [id number] RPR REFLEX TO T. PALLIDUM - [id number] 08:07:41* Test Item Value Reference Range Interpretation Comme nts RPR (test code = 72066) NON-REACTIVE NON-REACTIVE RPR TITER (test code = 3500) NOT INDIC. TITER NOT INDIC. HIV 1/2 4TH GEN, RFLX [id number] 05:24:44* Test Item Value Reference Range Interpretation Comme nts HIV 1/2 4TH GEN, RFLX CONF ( test code = 3514) NON-REACTIVE NON-REACTIVE HPV HIGH RISK WITH GENOTYPE, [id number] 00:00:00* Test Item Value Reference Range Interpretation Comme nts HPV HIGH RISK INTERP (test c ode = 10346) POSITIVE HPV 16 (test code = 19528) POSITIVE HPV 18 (test code = 40366) NEGATIVE HPV, HR, OTHER GENOTYPES (te st code = 54779) NEGATIVE PDFE (test code = PDFReport) PDF Darryl F AustinRPR REFLEX TO T. PALLIDUM - [id number] 00:00:00* Test Item Value Reference Range Interpretation Comme nts RPR (test code = 59277) NON-REACTIVE RPR TITER (test code = 3500) NOT INDIC. TITER Darryl Ackerman AustinCT/NG, TMA, [id number] 00:00:00* Test Item Value Reference Range Interpretation Comme nts CHLAMYDIA, NAAT, URINE (test code = 08915) POSITIVE GONORRHEA, NAAT, URINE (test code = 11415) NEGATIVE Darryl Ackerman AustinHIV 1/2 4TH GEN, RFLX [id number] 00:00:00* Test Item Value Reference Range Interpretation Comme nts HIV 1/2 4TH GEN, RFLX CONF ( test code = 3514) NON-REACTIVE Darryl Ackerman AustinVAGINAL PATHOGENS DNA [id number] 00:00:00* Test Item Value Reference Range Interpretation Comme nts JAZ SPECIES (test code = 92399) NEGATIVE G. VAGINALIS (test code = 86930) NEGATIVE T. VAGINALIS (test code = 42071) NEGATIVE Darryl Ackerman AustinRPR REFLEX TO T. PALLIDUM - [id number] 00:00:00* Test Item Value Reference Range Interpretation Comme nts RPR (test code = 02734) NON-REACTIVE RPR TITER (test code = 3500) NOT INDIC. TITER Darryl Ackerman AustinHPV HIGH RISK WITH GENOTYPE, [id number] 00:00:00* Test Item Value Reference Range Interpretation Comme nts HPV HIGH RISK INTERP (test c ode = 67122) POSITIVE HPV 16 (test code = 43239) POSITIVE HPV 18 (test code = 66362) NEGATIVE HPV, HR, OTHER GENOTYPES (te st code = 02362) NEGATIVE PDFE (test code = PDFReport) PDF Darryl Ackerman AustinCT/NG, TMA, [id number] 00:00:00* Test Item Value Reference Range Interpretation Comme nts CHLAMYDIA, NAAT, URINE (test code = 69972) POSITIVE GONORRHEA, NAAT, URINE (test code = 39472) NEGATIVE Darryl Ackerman AustinHIV 1/2 4TH GEN, RFLX [id number] 00:00:00* Test Item Value Reference Range Interpretation Comme nts HIV 1/2 4TH GEN, RFLX CONF ( test code = 3514) NON-REACTIVE Darryl Ackerman AustinVAGINAL PATHOGENS DNA [id number] 00:00:00* Test Item Value Reference Range Interpretation Comme nts JAZ SPECIES (test code = ) NEGATIVE G. VAGINALIS (test code = 49535) NEGATIVE T. VAGINALIS (test code = 89512) NEGATIVE Darryl Ackerman AustinHPV HIGH RISK WITH GENOTYPE, [id number] 00:00:00* Test Item Value Reference Range Interpretation Comme nts HPV HIGH RISK INTERP (test c ode = 89465) POSITIVE HPV 16 (test code = 76660) POSITIVE HPV 18 (test code = 03821) NEGATIVE HPV, HR, OTHER GENOTYPES (te st code = 33289) NEGATIVE PDFE (test code = PDFReport) PDF Darryl Ackerman AustinRPR REFLEX TO T. PALLIDUM - [id number] 00:00:00* Test Item Value Reference Range Interpretation Comme nts RPR (test code = 65899) NON-REACTIVE RPR TITER (test code = 3500) NOT INDIC. TITER Darryl Ackerman AustinCT/NG, TMA, [id number] 00:00:00* Test Item Value Reference Range Interpretation Comme nts CHLAMYDIA, NAAT, URINE (test code = 43417) POSITIVE GONORRHEA, NAAT, URINE (test code = 39284) NEGATIVE Darryl Ackerman AustinHIV 1/2 4TH GEN, RFLX [id number] 00:00:00* Test Item Value Reference Range Interpretation Comme nts HIV 1/2 4TH GEN, RFLX CONF ( test code = 3514) NON-REACTIVE Darryl WaggonerVAGINAL PATHOGENS DNA [id number] 00:00:00* Test Item Value Reference Range Interpretation Comme nts JAZ SPECIES (test code = ) NEGATIVE G. VAGINALIS (test code = 88169) NEGATIVE T. VAGINALIS (test code = 34584) NEGATIVE Darryl Ackerman AustinHPV HIGH RISK WITH GENOTYPE, [id number] 00:00:00* Test Item Value Reference Range Interpretation Comme nts HPV HIGH RISK INTERP (test c ode = 68966) POSITIVE HPV 16 (test code = 35800) POSITIVE HPV 18 (test code = 04121) NEGATIVE HPV, HR, OTHER GENOTYPES (te st code = 24640) NEGATIVE PDFE (test code = PDFReport) PDF Darryl Ackerman AustinRPR REFLEX TO T. PALLIDUM - [id number] 00:00:00* Test Item Value Reference Range Interpretation Comme nts RPR (test code = 67184) NON-REACTIVE RPR TITER (test code = 3500) NOT INDIC. TITER Darryl WaggonerCT/NG, TMA, [id number] 00:00:00* Test Item Value Reference Range Interpretation Comme nts CHLAMYDIA, NAAT, URINE (test code = 23374) POSITIVE GONORRHEA, NAAT, URINE (test code = 29874) NEGATIVE Darryl WaggonerHIV 1/2 4TH GEN, RFLX [id number] 00:00:00* Test Item Value Reference Range Interpretation Comme nts HIV 1/2 4TH GEN, RFLX CONF ( test code = 3514) NON-REACTIVE Darryl WaggonerVAGINAL PATHOGENS DNA [id number] 00:00:00* Test Item Value Reference Range Interpretation Comme nts JAZ SPECIES (test code = 82796) NEGATIVE G. VAGINALIS (test code = 92850) NEGATIVE T. VAGINALIS (test code = 85705) NEGATIVE Darryl WaggonerCOMP. METABOLIC PANEL (32430)2023-05-28 07:12:09* Test Item Value Reference Range Interpretation Comme nts NA (test code = 3061925815) 138 mmol/L 135-145 K (test code = 1016587062) 3.6 mmol/L 3.5-5.0 CL (test code = 3026278441) 105 mmol/L 98-108 CO2 TOTAL (test code = 0204634394) 24 mmol/L 23-31 AGAP (test code = 6813947281) 9 2-16 BUN (test code = 9903719916) 8 mg/dL 7-23 GLUCOSE (test code = 4401112021) 94 mg/dL 70-110 CREATININE (test code = 4111610108) 0.90 mg/dL 0.50-1.04 TOTAL BILI (test code = 0641816122) 0.5 mg/dL 0.1-1.1 CALCIUM (test code = 9777307976) 9.2 mg/dL 8.6-10.6 T PROTEIN (test code = 5475704811) 7.8 g/dL 6.3-8.2 ALBUMIN (test code = 7725855890) 4.3 g/dL 3.5-5.0 ALK PHOS (test code = 1301677344) 91 U/L 34-122 ALTv (test code = 1742-6) 32 U/L 5-35 AST(SGOT) (test code = 8900026743) 48 U/L 13-40 H eGFR (test code = 6307363811) 73.0 mL/min/1.73m2 ELIA (test code = ELIA) [...] imaging tests). Lab Interpretation (test code = 90258-1) Abnormal [facility] WITH [id number] 06:45:45* Test Item Value Reference Range Interpretation Comme nts WBC (test code = 6690-2) 7.78 See_Comment [Automated LOOKK] The system which generated this result transmitted [...] g/dL 31.6-35.1 L RDW-SD (test code = 84889-4) 49.8 fL 39.0-49.9 RDW-CV (test code = 788-0) 18.3 % 12.0-15.5 H PLT (test code = 777-3) 391 See_Comment H [Automated messa ge] The system which generated this result transmitted reference range: 166 - 358 10*3/?L. The reference range was not used to interpret this result as normal/abnormal. MPV (test code = 30206-8) 10.3 fL 9.5-12.9 NRBC/100 WBC (test code = 3976909988) 0.0 See_Comment [Automated [employer] ssage] The system which generated this result transmitted reference range: 0.0 - 10.0 /100 WBCs. The reference range was not used to interpret this result as normal/abnormal. NRBC x10^3 (test code = 5926397209) See_Comment [Automated messa ge] The system which generated this result transmitted reference range: 10*3/?L. The reference range was not used to interpret this result as normal/abnormal. GRAN MAT (NEUT) % (test code = 770-8) 47.8 % IMM GRAN % (test code = 4989822202) 0.30 % LYMPH % (test code = 736-9) 39.1 % MONO % (test code = 5905-5) 8.5 % EOS % (test code = 713-8) 3.5 % BASO % (test code = 706-2) 0.8 % GRAN MAT x10^3(ANC) (test code = 8283834673) 3.73 10*3/uL 1.88-7.09 IMM GRAN x10^3 (test code = 1576173176) 0.00-0.06 LYMPH x10^3 (test code = 731-0) 3.04 10*3/uL 1.32-3.29 MONO x10^3 (test code = 742-7) 0.66 10*3/uL 0.33-0.92 EOS x10^3 (test code = 711-2) 0.27 10*3/uL 0.03-0.39 BASO x10^3 (test code = 704-7) 0.06 10*3/uL 0.01-0.07 Lab Interpretation (test code = 70226-6) Abnormal [facility] [id number] 06:40:00* Test Item Value Reference Range Interpretation Comme nts POCT PREG (test code = 1605) Negative On board controls acceptable with C Line (test code = 3574) Yes POCT PREG LOT # (test code = 3575) [id number] POCT PREG TEST DATE ( test code = 357) 10/17/2024 Lab Interpretation (test cod e = 20746-6) Normal [facility] [id number] 06:17:00* Test Item Value Reference Range Interpretation Comme nts POCT PREG (test code = 1605) Negative On board controls acceptable with C Line (test code = 3574) Present POCT PREG LOT # (test code = 3575) [id number] POCT PREG TEST DATE ( test code = 3576) Lab Interpretation (test cod e = 68612-0) Normal [facility] [id number] 18:58:00* Test Item Value Reference Range Interpretation Comme nts POCT PREG (test code = 1605) negative Lab Interpretation (test cod e = 71019-9) Normal [facility] WITH [id number] 13:14:57* Test Item Value Reference Range Interpretation [...] g/dL 31.6-35.1 L RDW-SD (test code = 10369-2) 46.2 fL 39-49.9 RDW-CV (test code = 788-0) 17.0 % 12-15.5 H PLT (test code = 777-3) See_Comment H [Automated messa ge] The system which generated this result transmitted reference range: 166 - 358 10*3/?L. The reference range was not used to interpret this result as normal/abnormal. MPV (test code = 93896-2) 9.1 fL 9.5-12.9 L NRBC/100 WBC (test code = 2813579313) See_Comment [Automated [employer] ssage] The system which generated this result transmitted reference range: 0.0 - 10.0 /100 WBCs. The reference range was not used to interpret this result as normal/abnormal. NRBC x10^3 (test code = 9970923326) See_Comment [Automated messa ge] The system which generated this result transmitted reference range: 10*3/?L. The reference range was not used to interpret this result as normal/abnormal. GRAN MAT (NEUT) % (test code = 770-8) 51.3 % IMM GRAN % (test code = 0279442628) 0.40 % LYMPH % (test code = 736-9) 37.0 % MONO % (test code = 5905-5) 8.5 % EOS % (test code = 713-8) 2.2 % BASO % (test code = 706-2) 0.6 % GRAN MAT x10^3(ANC) (test code = 9738051962) 4.26 10*3/uL 1.88-7.09 IMM GRAN x10^3 (test code = 3345018309) 0.03 10*3/uL 0-0.06 LYMPH x10^3 (test code = 731-0) 3.06 10*3/uL 1.32-3.29 MONO x10^3 (test code = 742-7) 0.70 10*3/uL 0.33-0.92 EOS x10^3 (test code = 711-2) 0.18 10*3/uL 0.03-0.39 BASO x10^3 (test code = 704-7) 0.05 10*3/uL 0.01-0.07 Lab Interpretation (test code = 90976-4) Abnormal [facility] [id number] 12:55:00* Test Item Value Reference Range Interpretation Comme nts POCT PREG (test code = 1605) negative On board controls acceptable with C Line (test code = 3574) present Lab Interpretation (test cod e = 42088-8) Normal [facility] [id number] 20:49:00* Test Item Value Reference Range Interpretation Comme nts POCT PREG (test code = 1605) negative On board controls acceptable with C Line (test code = 3574) yes POCT PREG LOT # (test code = 3575) [id number] POCT PREG TEST DATE ( test code = 3576) 08/14/2023 Lab Interpretation (test cod e = 87270-9) [facility] [id number] 08:01:55* Test Item Value Reference Range Interpretation Comme nts NA (test code = 9104696318) 138 mmol/L 135-145 K (test code = 1868691150) 4.2 mmol/L 3.5-5 CL (test code = 9703559198) 107 mmol/L 98-108 CO2 TOTAL (test code = 1034229653) 20 mmol/L 23-31 L AGAP (test code = 4923690671) 2-16 BUN (test code = 8237609443) 10 mg/dL 7-23 GLUCOSE (test code = 3959395287) 105 mg/dL 70-110 CREATININE (test code = 8564603748) 0.86 mg/dL 0.5-1.04 TOTAL BILI (test code = 2704723817) 0.1-1.1 L CALCIUM (test code = 8667470409) 9.1 mg/dL 8.6-10.6 T PROTEIN (test code = 7314415991) 7.4 g/dL 6.3-8.2 ALBUMIN (test code = 0170808915) 4.8 g/dL 3.5-5 ALK PHOS (test code = 5824117209) 81 U/L 34-122 ALTv (test code = 1742-6) 17 U/L 5-35 AST(SGOT) (test code = 4359273571) 19 U/L 13-40 eGFR (test code = 1395335823) mL/min/1.73m2 ELIA (test code = ELIA) Association [...] imaging tests). Lab Interpretation (test code = 18002-0) [facility]normal [facility], [id number] 07:59:48* Test Item Value Reference Range Interpretation Comme nts LIPASE (test code = 4387540114) 94 U/L 0-220 Lab Interpretation (test cod e = 37703-2) Normal [facility] with [id number] 07:47:29* Test Item Value Reference Range Interpretation Comme nts WBC (test code = 6690-2) See_Comment [Automated [employer]] The system which generated this result transmitted reference range: 4.30 - 11.10 10*3/?L. The reference range was not used to interpret this result as normal/abnormal. RBC (test code = 789-8) See_Comment [Automated [employer]] The system which generated this result transmitted [...] g/dL 31.6-35.1 L RDW-SD (test code = 42907-9) 40.2 fL 39-49.9 RDW-CV (test code = 788-0) 15.0 % 12-15.5 PLT (test code = 777-3) See_Comment [Automated [employer]] The system which generated this result transmitted reference range: 166 - 358 10*3/?L. The reference range was not used to interpret this result as normal/abnormal. MPV (test code = 27661-4) 10.1 fL 9.5-12.9 NRBC/100 WBC (test code = 4879414134) See_Comment [Automated me ssage] The system which generated this result transmitted reference range: 0.0 - 10.0 /100 WBCs. The reference range was not used to interpret this result as normal/abnormal. NRBC x10^3 (test code = 7204399304) See_Comment [Automated messa ge] The system which generated this result transmitted reference range: 10*3/?L. The reference range was not used to interpret this result as normal/abnormal. GRAN MAT (NEUT) % (test code = 770-8) 46.6 % IMM GRAN % (test code = 3147153092) 0.40 % LYMPH % (test code = 736-9) 40.7 % MONO % (test code = 5905-5) 8.6 % EOS % (test code = 713-8) 3.3 % BASO % (test code = 706-2) 0.4 % GRAN MAT x10^3(ANC) (test code = 9880276201) 3.40 10*3/uL 1.88-7.09 IMM GRAN x10^3 (test code = 9661055312) 0.03 10*3/uL 0-0.06 LYMPH x10^3 (test code = 731-0) 2.97 10*3/uL 1.32-3.29 MONO x10^3 (test code = 742-7) 0.63 10*3/uL 0.33-0.92 EOS x10^3 (test code = 711-2) 0.24 10*3/uL 0.03-0.39 BASO x10^3 (test code = 704-7) 0.03 10*3/uL 0.01-0.07 Lab Interpretation (test code = 67501-5) Abnormal [facility] [id number] 07:37:00* Test Item Value Reference Range Interpretation Comme nts POCT PREG (test code = 1605) Negative On board controls acceptable with C Line (test code = 3574) Present POCT PREG LOT # (test code = 3575) [id number] POCT PREG TEST DATE ( test code = 3576) 08/14/2023 Lab Interpretation (test cod e = 62870-9) [facility] [id number] 22:19:00* Test Item Value Reference Range Interpretation Comme nts POCT PREG (test code = 1605) NEGATIVE On board controls acceptable with C Line (test code = 3574) present POCT PREG LOT # (test code = 3575) [id number] POCT PREG TEST DATE ( test code = 3576) 07/14/2023 Lab Interpretation (test cod e = 25282-9) [facility] [id number] 19:54:00* Test Item Value Reference Range Interpretation Comme nts POCT PREG (test code = 1605) negative On board controls acceptable with C Line (test code = 3574) present POCT PREG LOT # (test code = 3575) [id number] POCT PREG TEST DATE ( test code = 3576) 12/12/2022 Lab Interpretation (test cod e = 45517-0) [facility] % [id number] 00:00:00* Test Item Value Reference Range Interpretation Comme nts IRON, SERUM (test code = 2221) 11 UG/DL UNSATURATED IBC (test code = 76076) 442 UG/DL CALC TOTAL IBC (test code = 7) 453 UG/DL CALC % IRON SAT (test code = 9) 2 % Darryl F [id number] 00:00:00* Test Item Value Reference Range Interpretation Comme nts FERRITIN (test code = 2075) 3 NG/ML Darryl F NkfmmsXTAGPUVPBMA6603-06-90 00:00:00* Test Item Value Reference Range Interpretation Comme nts TRANSFERRIN (test code = 4936) 385 MG/DL Darryl F AustinIRON BINDING CAPACITY AND IRON AND % [id number] 00:00:00* Test Item Value Reference Range Interpretation Comme nts IRON, SERUM (test code = 2) 11 UG/DL UNSATURATED IBC (test code = 14941) 442 UG/DL CALC TOTAL IBC (test code = 7) 453 UG/DL CALC % IRON SAT (test code = 2079) 2 % Darryl F FxplsmXYOZJQHQ2726-01-14 00:00:00* Test Item Value Reference Range Interpretation Comme nts FERRITIN (test code = 2074) 3 NG/ML Darryl F [id number] 00:00:00* Test Item Value Reference Range Interpretation Comme nts TRANSFERRIN (test code = 4936) 385 MG/DL Darryl F AustinIRON BINDING CAPACITY AND IRON AND % [id number] 00:00:00* Test Item Value Reference Range Interpretation Comme nts IRON, SERUM (test code = 2222) 11 UG/DL UNSATURATED IBC (test code = 66399) 442 UG/DL CALC TOTAL IBC (test code = 7) 453 UG/DL CALC % IRON SAT (test code = 9) 2 % Darryl F SzfnrcJDIZLMZX4563-98-43 00:00:00* Test Item Value Reference Range Interpretation Comme nts FERRITIN (test code = 2074) 3 NG/ML Darryl F ZwekuvHRNUSPFBKNU0961-64-83 00:00:00* Test Item Value Reference Range Interpretation Comme nts TRANSFERRIN (test code = 4936) 385 MG/DL Darryl F AustinIRON BINDING CAPACITY AND IRON AND % [id number] 00:00:00* Test Item Value Reference Range Interpretation Comme nts IRON, SERUM (test code = 2) 11 UG/DL UNSATURATED IBC (test code = 21055) 442 UG/DL CALC TOTAL IBC (test code = 7) 453 UG/DL CALC % IRON SAT (test code = 9) 2 % Darryl F XnkxzwCZPTLIRI1022-53-21 00:00:00* Test Item Value Reference Range Interpretation Comme nts FERRITIN (test code = 2074) 3 NG/ML Darryl F VadjviUEHCYRUYQDI6728-50-19 00:00:00* Test Item Value Reference Range Interpretation Comme nts TRANSFERRIN (test code = 4936) 385 MG/DL Darryl F AustinIRON BINDING CAPACITY AND IRON AND % [id number] 00:00:00* Test Item Value Reference Range Interpretation Comme nts IRON, SERUM (test code = 2222) 11 UG/DL UNSATURATED IBC (test code = 31961) 442 UG/DL CALC TOTAL IBC (test code = 7) 453 UG/DL CALC % IRON SAT (test code = 2079) 2 % [id number] 00:00:00* Test Item Value Reference Range Interpretation Comme nts FERRITIN (test code = 5) 3 NG/ML [id number] 00:00:00* Test Item Value Reference Range Interpretation Comme nts TRANSFERRIN (test code = 4936) 385 MG/DL IRON BINDING CAPACITY AND IRON AND % [id number] 00:00:00* Test Item Value Reference Range Interpretation Comme nts IRON, SERUM (test code = 2222) 11 UG/DL UNSATURATED IBC (test code = 63675) 442 UG/DL CALC TOTAL IBC (test code = 7) 453 UG/DL CALC % IRON SAT (test code = 2078) 2 % [id number] 00:00:00* Test Item Value Reference Range Interpretation Comme nts FERRITIN (test code = 2074) 3 NG/ML [id number] 00:00:00* Test Item Value Reference Range Interpretation Comme nts TRANSFERRIN (test code = 4936) 385 MG/DL [id number] 00:00:00* Test Item Value Reference Range Interpretation Comme nts TSH, THIRD GENERATION (test code = 2821) 0.675 UIU/ML Darryl Ackerman EdilsonCBC W/AUTO [id number] 00:00:00* Test Item Value Reference Range Interpretation [...] ABS NUCLEATED RBCS (test cod e = 12870) 0.00 K/UL Darryl WaggonerHvmklqWKG4156-38-55 00:00:00* Test Item Value Reference Range Interpretation Comme nts TSH, THIRD GENERATION (test code = 2821) 0.675 UIU/ML Darryl WaggonerCBC W/AUTO [id number] 00:00:00* Test Item Value Reference Range Interpretation [...] ABS NUCLEATED RBCS (test cod e = 83786) 0.00 K/UL Darryl WaggonerDkxzgqBAT4930-38-97 00:00:00* Test Item Value Reference Range Interpretation Comme nts TSH, THIRD GENERATION (test code = 2821) 0.675 UIU/ML Darryl WaggonerCBC W/AUTO [id number] 00:00:00* Test Item Value Reference Range Interpretation [...] ABS NUCLEATED RBCS (test cod e = 04483) 0.00 K/UL Darryl WaggonerUgbjjcIEM1238-32-35 00:00:00* Test Item Value Reference Range Interpretation Comme nts TSH, THIRD GENERATION (test code = 2821) 0.675 UIU/ML Darryl WaggonerCBC W/AUTO [id number] 00:00:00* Test Item Value Reference Range Interpretation [...] ABS NUCLEATED RBCS (test cod e = 40760) 0.00 K/UL Darryl Ackerman [facility] W/AUTO [id number] 00:00:00* Test Item Value Reference Range Interpretation [...] ABS NUCLEATED RBCS (test cod e = 30914) 0.00 K/UL [id number] 00:00:00* Test Item Value Reference Range Interpretation Comme nts TSH, THIRD GENERATION (test code = 2821) 0.675 UIU/ML CBC W/AUTO [id number] 00:00:00* Test Item Value Reference Range Interpretation [...] ABS NUCLEATED RBCS (test cod e = 86463) 0.00 K/UL [id number] 00:00:00* Test Item Value Reference Range Interpretation Comme nts TSH, THIRD GENERATION (test code = 2821) 0.675 UIU/ML"
--- NOTE | 2024-10-10 06:35 | EDPHYS ---
Physician Documentation [facility] [place] Name: Judith Tobar Age: 33 yrs Sex: Female : 1990 Arrival Date: 10/10/2024 Time: 05:58 Bed 15 Private MD: ED Physician Phil Sotelo HPI: 10/10 06:04 This 33 yrs old Female presents to ER via Unassigned with complaints of Nose sp4 Pain, Headache. 21:10 33-year-old female presents for complaint of right nasal pain. Patient Suspect nasal sp4 infection. [employer]: 06:22 LMP 09/14/2024, unknown kj2 Historical: - Allergies: 06:17 No Known Allergies; kj2 - PMHx: 06:18 Anemia; Anxiety; Bipolar disorder; insommnia; kj2 - PSHx: 06:18 breast surgery due to mastitis; tubal; kj2 - Immunization history:: Adult Immunizations unknown. - Infectious Disease History:: Denies. - Social history:: Smoking status: Reported history of juuling and/or vaping. - Family history:: not pertinent. ROS: 21:10 Constitutional: Negative for fever, chills, and weight loss, positive for right side sp4 nasal pain, and positive for nasal congestion 21:10 All other systems are negative, Exam: 21:10 Constitutional: This is a well developed, well nourished patient who is awake, alert, sp4 and in no acute distress. Head/Face: Normocephalic, atraumatic. Eyes: Pupils equal round and reactive to light, extra-ocular motions intact. Lids and lashes normal. Conjunctiva and sclera are not injected. Cornea within normal limits. Periorbital areas with no swelling, redness, or edema. ENT: Nares patent. No nasal discharge, no septal abnormalities noted. small amoutn of nasal congestion bilaterally. Tympanic membranes are normal and external auditory canals are clear. Oropharynx with no redness, swelling, or masses, exudates, or evidence of obstruction, uvula midline. Mucous membranes moist. Neck: Trachea midline, no thyromegaly or masses palpated, and no cervical lymphadenopathy. Supple, full range of motion without nuchal rigidity, or vertebral point tenderness. Chest/axilla: Normal chest wall appearance and motion. Nontender with no deformity. No lesions are appreciated. Cardiovascular: Regular rate and rhythm with a normal S1 and S2. No gallops, murmurs, or rubs. Normal PMI, no JVD. No pulse deficits. Respiratory: Lungs have equal breath sounds bilaterally, clear to auscultation and percussion. No rales, rhonchi or wheezes noted. No increased work of breathing, no retractions or nasal flaring. Abdomen/GI: Soft, with normal bowel sounds. No distension or tympany. No guarding or rebound. No evidence of tenderness throughout. Back: No spinal tenderness. No costovertebral tenderness. Skin: Warm, dry with normal turgor. Normal color with no rashes, no lesions, and no evidence of cellulitis. MS/ Extremity: Pulses equal, no cyanosis. Neurovascular intact. Full, normal range of motion. Neuro: Awake and alert, GCS 15, oriented to person, place, time, and situation. Cranial nerves II-XII grossly intact. Motor strength 5/5 in all extremities. Sensory grossly intact. Psych: Awake, alert, with orientation to person, place and time. Behavior, mood, and affect are within normal limits Vital Signs: 06:15 BP 121 / 89; Pulse 91; Resp 18; Temp 98.9; Pulse Ox 100% on R/A; Weight 86.18 kg; kj2 Height 5 ft. 2 in. ; Pain 8/10; 06:15 Body Mass Index 34.75 (86.18 kg, 157.48 cm) kj2 06:15 Pain Scale: Adult kj2 MDM: 06:17 Medical Screening Exam initiated sp4 21:10 Differential diagnosis: foreign body - resolved, foreign body - unresolved, nasal sp4 fracture, trauma, sinusitis. Data reviewed: vital signs, nurses notes, old medical records. ED course: Patient was advised to follow-up with ground operations crew member for detailed nasal assessment and intranasal scope. Administered Medications: 06:40 Drug: Ibuprofen PO 800 mg PO once Route: PO; kj2 06:42 Follow up: Response: No adverse reaction; Medication administered at discharge. kj2 06:40 Drug: diphenhydrAMINE PO 50 mg PO once Route: PO; kj2 06:42 Follow up: Response: No adverse reaction kj2 06:42 Follow up: Response: Medication administered at discharge. kj2 Disposition Summary: 10/10/24 06:34 Discharge Ordered Problem: new sp4 Symptoms: have improved sp4 Condition: Stable sp4 Diagnosis - Nasal congestion sp4 - Acute nasal pain right nostril sp4 Followup: sp4 - With: Tanya Alan MD - When: 7 - 10 days - Reason: Recheck today's complaints Discharge Instructions: - Discharge Summary Sheet sp4 - Nasal Polyps sp4 Forms: - Patient Portal Instructions sp4 Prescriptions: - phenylephrine HCl 10 mg Oral tablet - take 1 tablet ORAL route every 6 hours PRN congesition; 40 tablet; Refills: 0, sp4 Product Selection Permitted - Ibuprofen 800 mg Oral Tablet - take 1 tablet ORAL route every 8 hours As needed take with food; 30 tablet; sp4 Refills: 0, Product Selection Permitted Signatures: Phil Sotelo MD MD sp4 Charisse Handley RN RN kj2 Corrections: (The following items were deleted from the chart) 21:12 21:10 ED course: Patient was advised to follow-up with ground operations crew member for detailed sp4 nasal scope. sp4
--- NOTE | 2024-10-10 06:35 | ER ---
Nurse's Notes [facility] Tori Name: Judith Tobar Age: 33 yrs Sex: Female : 1990 Arrival Date: 10/10/2024 Time: 05:58 Bed 15 Private MD: Diagnosis: Nasal congestion;Acute nasal pain right nostril Presentation: 10/10 06:15 Chief complaint: Patient states: nose pain, right side of nostril. Coronavirus screen: [facility] Client denies travel out of the [place] in the last 14 days. Ebola Screen: No symptoms or risks identified at this time. Initial Sepsis Screen: Does the patient meet any 2 criteria? No. Patient's initial sepsis screen is negative. Does the patient have a suspected source of infection? No. Patient's initial sepsis screen is negative. Risk Assessment: Do you want to hurt yourself or someone else? Patient reports no desire to harm self or others. Onset of symptoms was October 10, 2024. 06:15 Method Of Arrival: Ambulatory [facility] 06:15 Acuity: SHABBIR 3 kj Triage Assessment: 06:18 Headache History: The patient has had previous headaches and this one is similar to kj2 previous episodes. General: Appears in no apparent distress. Behavior is calm, cooperative. Pain: Complains of pain in headache, nose Pain currently is 8 out of 10 on a pain scale. Pain began 1 hour ago. EENT: Reports pain in nose. Neuro: Level of Consciousness is awake, alert, obeys commands, Oriented to person, place, time, situation. Cardiovascular: Patient's skin is warm and dry. Respiratory: Airway is patent Respiratory effort is unlabored. GI: No signs and/or symptoms were reported involving the gastrointestinal system. : No signs and/or symptoms were reported regarding the genitourinary system. 06:43 Pain: Also complains of no other associated symptoms. kj2 PLUG GROWER: 06:22 LMP 09/14/2024, unknown kj2 Historical: - Allergies: 06:17 No Known Allergies; kj2 - PMHx: 06:18 Anemia; Anxiety; Bipolar disorder; insommnia; kj2 - PSHx: 06:18 breast surgery due to mastitis; tubal; kj2 - Immunization history:: Adult Immunizations unknown. - Infectious Disease History:: Denies. - Social history:: Smoking status: Reported history of juuling and/or vaping. - Family history:: not pertinent. Screenin:20 [facility] ED Fall Risk Assessment (Adult) History of falling in the last 3 months, kj2 including since admission No falls in past 3 months (0 pts) Confusion or Disorientation No (0 pts) Intoxicated or Sedated No (0 pts) Impaired Gait No (0 pts) Mobility Assist Device Used No (0 pt) Altered Elimination No (0 pt) Score/Fall Risk Level 0 - 2 = Low Risk Maintained a safe environment, Hourly rounding (assess needs \T\ fall precautionary measures) done. Abuse screen: Denies threats or abuse. Denies injuries from another. Nutritional screening: No deficits noted. Tuberculosis screening: No symptoms or risk factors identified. Assessment: 06:20 General: see triage. kj2 Vital Signs: 06:15 BP 121 / 89; Pulse 91; Resp 18; Temp 98.9; Pulse Ox 100% on R/A; Weight 86.18 kg; kj2 Height 5 ft. 2 in. ; Pain 8/10; 06:15 Body Mass Index 34.75 (86.18 kg, 157.48 cm) kj2 06:15 Pain Scale: Adult kj2 ED Course: 06:02 Patient arrived in ED. gm2 06:04 Phil Sotelo MD is Attending Physician. sp4 06:07 Charisse Handley, LINA is Primary Nurse. kj2 06:17 Triage completed. kj2 06:21 Patient has correct armband on for positive identification. Bed in low position. Call kj2 light in reach. Adult w/ patient. Provided Education on: call light. 06:22 Arm band placed on Patient placed in an exam room, on a stretcher. kj2 06:33 Tanya Alan MD is Referral Physician. sp4 06:43 No provider procedures requiring assistance completed. Patient did not have IV access kj2 during this emergency room visit. Administered Medications: 06:40 Drug: Ibuprofen PO 800 mg PO once Route: PO; kj2 06:42 Follow up: Response: No adverse reaction; Medication administered at discharge. kj2 06:40 Drug: diphenhydrAMINE PO 50 mg PO once Route: PO; kj2 06:42 Follow up: Response: No adverse reaction kj2 06:42 Follow up: Response: Medication administered at discharge. kj2 Medication: 06:21 VIS not applicable for this client. kj2 Outcome: 06:34 Discharge ordered by . steffen 06:43 Discharged to home ambulatory, kj2 06:43 Condition: stable 06:43 Discharge instructions given to patient, Instructed on discharge instructions, follow up and referral plans. medication usage, Demonstrated understanding of instructions, follow-up care, medications, Prescriptions given X 2, 06:49 Patient left the ED. kj2 Signatures: Phil Sotelo MD MD sp4 Anahi Karimi 2 Charisse Handley, RN RN kj2
[2024-10-10] MEDS ORDERED: IBUPROFEN 400 MG TAB ONE (06:36)
[2024-10-10] MEDS ORDERED: DIPHENHYDRAMINE 25 MG TAB/CAP ONE (06:36)
[2024-10-10 06:59] VITALS: BP 121/89; TEMP 98.9; O2SAT 100
== END 2024-10-10 06:49 | disposition home or self-care (01) ==
LOC: ER 05:58
DX: R09.81 Nasal congestion (principal); J34.89 Other specified disorders of nose and nasal sinuses
CPT/HCPCS: 99283

== ENCOUNTER 2024-12-12 17:49 | Emergency (ER) | payer SELFPAY ==
--- OUTSIDE RECORDS SUMMARY | 2024-12-12 17:59 | XMS REPORT | Continuity of Care Document ---
Author Name Unknown Address [address] [place] [address] [facility] Address [address] [place] [address] Care Team Providers Care Plaster Helper Name Role Phone Soraya CURRAN, Ashley Primary Care Physician SELENE PARRA Attending Clinician Unavailable SELENE PARRA Attending Clinician Unavailable Selene Parra MD Attending Clinician [phone] CHRISTY RG Attending Clinician Unavailable CHRISTY RG Attending Clinician Unavailable Christy Rg NP Attending Clinician [phone] DONI MARIE Attending Clinician Unavailable DONI MARIE Attending Clinician Unavailable Doni Marie MD Attending Clinician +[phone] CHAYO SRIVASTAVA Attending Clinician UnavailChayo Mueller DO Attending Clinician [phone] Kavita OJEDA Attending Clinician Unavailable Kavita Young Attending Clinician [phone] Danie Delarosa Attending Clinician [phone] MEMO RESENDIZ Attending Clinician Unavailable Memo Resendiz MD Attending Clinician +[phone] DANII ARRIAGA Attending Clinician Unavailable Rose Hoff MD Attending Clinician [phone] Danii Ferrer Attending Clinician [phone] MICHELLE TERRY Attending Clinician UnavailMichelle Evans MD Attending Clinician + [phone] RAVEN LIEBERMAN Attending Clinician Unavailable Raven Gutiérrez S Attending Clinician [phone] Doctor Unassigned, [place] Attending Clinician U orlandoHERMILO Corona Attending Clinician Unavailable Ricks DO, Hermilo Attending Clinician [phone] SURAJ SCOTT Attending Clinician UnavailSuraj Kee MD Attending Clinician + [phone] CAT RUTLEDGE Attending Clinician Unavailable LISA TRAN Attending Clinician Unavailable Lisa Cruz Attending Clinician + [phone] CL GATES Attending Clinician Unavailable ROCHELLE GOLD [...] Number Effective Date Expirati on Date Source [facility] [id number] 2023 00:00:00 Problems Condition Name Condition Details Condition Category Status Onset Date Resolution Date Last Treatment Date Treating Clinician Comments Source Lower abdominal pain Lower abdominal pain Disease Active 1- 00:00: 00 [facility] Ureterolit hiasis Ureterolit hiasis Disease Active 8-05 00:00: 00 [facility] No known active problems No known active problems Disease [facility] Allergies, Adverse Reactions, Alerts Allergy Name Allergy Type Status Severity Reaction(s) Onset Date Inactive Date Treating Clinician Comments Source GABAPENT IN DRUG INGREDI Active Other-Cmnt 2022-10 0 00:00: 00 [facility] Gabapent in Propensi ty to adverse reaction s Active Other - See comments 2022-10 00:00: 00 Manic episodes [facility] NO KNOWN ALLERGIE S Drug Class Active [facility] Social History Social Habit Start Date Stop Date Quantity Comments Source Gender identity [facility] Exposure to SARS-CoV-2 (event) 2023-02-24 00:00:00 2023-03-06 22:59:00 Not sure [facility] Sex assigned at 1990 00:00:00 1990 00:00:00 [facility] Smoking Status Start Date Stop Date Source Tobacco smoking consumption unknown [facility] Medications Ordered Medication Name Filled Medication Name Start Date Stop Date Current Medication? Ordering Clinician Indication Dosage Frequency Signature (SIG) Comments Components Source pantoprazol e 40 mg tablet,renny yed release 11-27 00:00: 00 Yes 1mg Darryl Waggoner ondansetron 8 mg disintegrat ing tablet 11-27 00:00: 00 Yes 1mg Darryl Waggoner HYDROcodone -acetaminop hen (NORCO) 10-325 mg tablet 1 tablet 11-19 05:30: 00 11-19 04:43 :00 No 1{tbl} 1 tablet, Oral, ONCE NOW, 1 dose, On Sun11/18/24 at 2330, Routine [facility] amoxicillin (TRIMOX) capsule 500 mg 11-19 04:30: 00 11-19 04:43 :00 No 500mg 500 mg, Oral, ONCE, 1 dose, On Sun11/18/24 at 2230, NICOLASA, Reason for Anti-Infec tive: Documented Infection, Documented Infection Site: HEENT, Duration of Therapy: Once (ED) [facility] ibuprofen 800 mg tablet 2- 00:00: 00 Yes [id number] 800mg Take 1 tablet by mouth every 8 (eight) hours as needed for Alternate with [place] for pain scale 1-3. [facility] amoxicillin 500 mg capsule 11-18 00:00: 00 Yes [id number] 500mg Take 1 capsule by mouth in the morning and 1 capsule at noon and 1 capsule in the evening. [facility] Bromfed DM 2 mg-30 mg-10 mg/5 mL oral syrup 08 00:00: 00 Yes 10mg/5 mL Darryl Waggoner metoclopram farzana HCl (REGLAN) injection 10 mg 2023-10 13:15: 00 07-25 13:23 :00 No 10mg 10 mg, Slow IV Push, ONCE, 1 dose, On Sun07/25/24 at 0815, NICOLASA [facility] pantoprazol e 40 mg EC tablet 2023-10 00:00: 00 Yes [id number] 40mg Take 1 tablet by mouth in the morning. [facility] metoclopram farzana HCl 10 mg tablet 2023-10 00:00: 00 Yes [id number] 10mg Take 1 tablet by mouth every 6 (six) hours. [facility] iopamidol (ISOVUE 370-500 mL) injection 85 mL 07-04 09:45: 00 07-04 09:45 :00 No [id number] 85mL 85 mL, Intravenou s, ONCE, 1 dose, On Sun07/04/24 at 0445, Routine [facility] ketorolac (TORADOL) injection 30 mg 07-04 09:15: 00 07-04 08:27 :00 No 30mg 30 mg, Slow IV Push, ONCE, 1 dose, On Sun07/04/24 at 0415, Routine [facility] Lidocaine Viscous 2 % mucosal solution 03-18 [...] ONCE, 1 dose, On Sun03/12/24 at 0545, [facility] metoclopram farzana HCl (REGLAN) injection 10 mg 03-12 10:45: 00 03-12 10:52 :00 No 10mg 10 mg, Slow IV Push, ONCE, 1 dose, On Sun03/12/24 at 0545, [facility] iopamidol (ISOVUE 370-500 mL) injection 100 mL 03-12 10:15: 00 03-12 10:15 :00 No [id number] 100mL 100 mL, Intravenou s, ONCE, 1 dose, On Sun03/12/24 at 0515, Routine [facility] ketorolac (TORADOL) injection 30 mg 03-12 10:00: 00 03-12 09:01 :00 No 30mg 30 mg, Slow IV Push, ONCE, 1 dose, On Sun03/12/24 at 0500, Routine [facility] NaCl 0.9% (NS) IV infusion 1,000 mL 03-12 09:45: 00 03-12 10:39 :00 No 1000mL at 999 mL/hr, Intravenou s, ONCE, 1 dose, On Sun03/12/24 at 0445, Routine [facility] ondansetron (ZOFRAN (PF)) injection 4 mg 03-12 09:00: 00 03-12 09:01 :00 No 4mg 4 mg, Slow IV Push, ONCE, 1 dose, On Sun03/12/24 at 0400, [facility] butalbital- acetaminoph en-caff 50-325-40 mg tablet 03-12 00:00: 00 Yes [id number] 1{tbl} Take 1 tablet by mouth every 6 (six) hours as needed (Headache) . [facility] dicyclomine 20 mg tablet 03-12 00:00: 00 Yes [id number] 20mg Take 1 tablet by mouth every 6 (six) hours as needed for Abdominal pain. [facility] metoclopram farzana HCl 10 mg tablet 03-12 00:00: 00 07-25 00:00 :00 No [id number] 10mg Take 1 tablet by mouth every 6 (six) hours. [facility] ondansetron HCl 4 mg tablet 03-06 00:00: 00 Yes 1mg Darryl Tyron Edilson iopamidol (ISOVUE 370-500 mL) injection 85 mL 02-02 11:00: 00 02-02 11:00 :00 No [id number] 85mL 85 mL, Intravenou s, ONCE, 1 dose, On Sun02/03/24 at 0600, Routine [facility] FENTanyl PF (SUBLIMAZE (PF)) injection 50 mcg 02-02 10:30: 00 02-02 09:52 :00 No 50ug 50 mcg, Slow IV Push, ONCE, 1 dose, On Sun02/03/24 at 0530, Routine [facility] metoclopram farzana HCl (REGLAN) injection 10 mg 02-02 09:30: 00 02-02 09:52 :00 No 10mg 10 mg, Slow IV Push, ONCE, 1 dose, On Sun02/03/24 at 0430, NICOLASA [facility] pantoprazol e (PROTONIX) injection 40 mg 02-02 09:30: 00 02-02 09:53 :00 No 40mg 40 mg, Slow IV Push, ONCE, 1 dose, On Sun02/03/24 at 0430 [facility] dicyclomine 20 mg tablet 02-02 00:00: 00 Yes [id number] 20mg Take 1 tablet by mouth every 6 (six) hours as needed for Abdominal pain. [facility] metoclopram farzana HCl 10 mg tablet 02-02 00:00: 00 07-25 00:00 :00 No [id number] 10mg Take 1 tablet by mouth every 6 (six) hours. [facility] pantoprazol e (PROTONIX) 40 mg EC tablet 02-02 00:00: 00 07-25 00:00 :00 No [id number] 40mg Take 1 tablet by mouth in the morning. [facility] loratadine (CLARITIN) tablet 10 mg 01-01 06:30: 00 01-01 18:29 :00 No 10mg 10 mg, Oral, ONCE, 1 dose, On Sun01/02/24 at 0130, NICOLASA [facility] azithromyci n (ZITHROMAX) tablet 500 mg 01-01 05:45: 00 01-01 05:39 :00 No 500mg 500 mg, Oral, ONCE, 1 dose, On Sun01/02/24 at 0045, NICOLASA
Re ason for Anti-Infec tive: Documented Infection< br>Documen zoila Infection Site: HEENT
D uration of Therapy: Once (ED) [facility] azithromyci n (ZITHROMAX Z-RAMESH) 250 mg tablet 01-01 00:00: 00 Yes [id number] 500mg Take 2 tablets by mouth SEE-INSTRU CTIONS. Take 500 mg day 1, then 250 mg days 2 to 5. [facility] loratadine- pseudoephed rine (CLARITIN-D 24 HOUR) 10-240 mg per 24 hr tablet 01-01 00:00: 00 Yes [id number] 1{tbl} Take 1 tablet by mouth in the morning. [facility] dextrometho rphan-guaif enesin 10-100 mg/5 mL solution 01-01 00:00: 00 Yes [id number] 10mL Take 10 mL by mouth every 6 (six) hours as needed for Cough. [facility] butalbital- acetaminoph en-caff (ESGIC) 50-325-40 mg tablet 1 tablet 12-25 09:15: 00 12-25 09:09 :00 No 1{tbl} 1 tablet, Oral, ONCE, 1 dose, On Sun12/26/23 at 0415, NICOLASA [facility] butalbital- acetaminoph en-caff 50-325-40 mg tablet 12-25 00:00: 00 Yes [id number] 1{tbl} Take 1 tablet by mouth every 6 (six) hours as needed (Headache) . [facility] ketorolac (TORADOL) injection 30 mg 11-20 17:15: 00 11-20 16:28 :00 No 30mg 30 mg, Slow IV Push, ONCE, 1 dose, On Sun11/20/23 at 1115, NICOLASA [facility] iopamidol (ISOVUE 370-500 mL) injection 80 mL 11-20 14:30: 00 11-20 14:45 :00 No [id number] 80mL 80 mL, Intravenou s, ONCE, 1 dose, On Sun11/20/23 at 0845, Routine [facility] NaCl 0.9% (NS) bolus infusion 1,000 mL 11-20 14:15: 00 11-20 16:26 :00 No 1000mL at 999 mL/hr, 1,000 mL, IV Infusion, ONCE, 1 dose, On Sun11/20/23 at 0815, STAT [facility] cephALEXin (KEFLEX) 500 mg capsule 11-20 00:00: 00 Yes [id number] 500mg Take 1 capsule by mouth in the morning and 1 capsule at noon and 1 capsule in the evening. [facility] ondansetron 4 mg disintegrat ing tablet 11-20 00:00: 00 Yes [id number] 4mg Take 1 tablet by mouth every 4 (four) hours as needed for Nausea and Vomiting (N/V). [facility] naproxen 500 mg tablet 11-20 00:00: 00 12-01 05:59 :00 No [id number] 500mg Take 1 tablet by mouth in the morning and 1 tablet in the evening. Take with meals. Do all this for 10 days. [facility] maalox:diph enhydrAMINE :lidocaine 2 % viscous 1:1:1 ([facility]) oral suspension 15 mL 11-12 07:00: 00 11-12 06:55 :00 No 15mL 15 mL, Oral, ONCE, 1 dose, On Sun11/12/23 at 0100, Routine [facility] ondansetron (ZOFRAN-ODT ) disintegrat ing tablet 4 mg 11-12 07:00: 00 11-12 06:16 :00 No 4mg 4 mg, Oral, ONCE, 1 dose, On Sun11/12/23 at 0100, Routine [facility] benzonatate 200 mg capsule 10-27 00:00: 00 Yes [id number] 200mg Take 1 capsule by mouth 3 (three) times daily as needed for Cough for up to 20 doses. [facility] ibuprofen 600 mg tablet 10-27 00:00: 00 Yes [id number] 600mg Take 1 tablet by mouth every 6 (six) hours as needed for Pain (scale 4-6). [facility] ondansetron 4 mg disintegrat ing tablet 10-27 00:00: 00 11-20 00:00 :00 No [id number] 4mg Take 1 tablet by mouth every 8 (eight) hours as needed for Nausea and Vomiting (N/V). [facility] lactulose (CEPHULAC) solution 30 mL 2022-10 01:45: 00 09-09 02:36 :00 No 30mL 30 mL, Oral, ONCE, 1 dose, On 09/08/23 at 1945, NICOLASA [facility] dexamethaso ne (DECADRON PHOSPHATE) injection 10 mg 2022-10 01:30: 00 09-09 02:40 :00 No 10mg 10 mg, Oral, ONCE, 1 dose, On 09/08/23 at 1930, Routine [facility] ketorolac (TORADOL) injection 30 mg 2022-10 01:30: 00 09-09 02:40 :00 No 30mg 30 mg, Intramuscu lar, ONCE, 1 dose, On Sun09/08/23 at 1930, Routine [facility] ketorolac 10 mg tablet 2022-10 00:00: 00 11-12 00:00 :00 No [id number] 10mg Take 1 tablet by mouth every 6 (six) hours as needed for Pain (scale 7-10). [facility] glycerin/mi neral oil, AGLO ENEMA, Enem 2022-10 00:00: 00 11-12 00:00 :00 No [id number] 225mL Insert 225 mL into rectum as needed for Constipati on. [facility] cefdinir 300 mg capsule 2022-10 00:00: 00 09-16 05:59 :00 No [id number] 300mg Take 1 capsule by mouth every 12 (twelve) hours for 7 days. [facility] lactulose 10 gram/15 mL solution 2022-10 00:00: 00 09-14 05:59 :00 No [id number] 15mL Take 15 mL by mouth in the morning for 5 days. [facility] HYDROcodone -acetaminop hen (NORCO 5) 5-325 mg tablet 1 tablet 2022-10 13:15: 00 09-07 13:33 :00 No 1{tbl} 1 tablet, Oral, ONCE, 1 dose, On Sun09/07/23 at 0715, [facility] diazePAM (VALIUM) tablet 5 mg 2022-10 13:15: 00 09-07 13:33 :00 No 5mg 5 mg, Oral, ONCE, 1 dose, [facility]09/07/23 [facility] 0715[facility] 10 mg 2022-10 13:15: 00 09-07 13:33 :00 No 10mg 10 mg, Oral, ONCE, 1 dose, On Sun09/07/23 at 0715, 1 mL [facility] methocarbam oL 750 mg tablet 2022-10 00:00: 00 11-12 00:00 :00 No [id number] 750mg Take 1 tablet by mouth every 6 (six) hours as needed for Pain (scale 1-3). [facility] ondansetron (ZOFRAN (PF)) injection 4 mg 2022-10 02:00: 00 09-04 02:30 :00 No 4mg 4 mg, Slow IV Push, ONCE, 1 dose, On Sun09/03/23 at 1999, [facility] meclizine (TRAVEL-EAS E (MECLIZINE) ) tablet 50 mg 2022-10 02:00: 00 09-04 02:30 :00 No 50mg 50 mg, Oral, ONCE, 1 dose, On Sun09/03/23 at 1999, [facility] ondansetron (ZOFRAN) 4 mg tablet 2022-10 00:00: 00 Yes [id number] 4mg Take 1 tablet by mouth every 8 (eight) hours as needed for Nausea and Vomiting (N/V). [facility] meclizine 25 mg tablet 2022-10 00:00: 00 11-12 00:00 :00 No [id number] 25mg Take 1 tablet by mouth every 6 (six) hours. [facility] ondansetron (ZOFRAN-ODT ) disintegrat ing tablet 4 mg 2022-10 08:30: 00 07-26 07:45 :00 No 4mg 4 mg, Oral, ONCE, 1 dose, On Ashley 07/26/23 at 0330, Routine [facility] proMETHazin e 25 mg tablet 2022-10 00:00: 00 09-03 00:00 :00 No [id number] 12.5mg Take 0.5 tablets by mouth every 6 (six) hours as needed for Nausea and Vomiting (N/V). [facility] loratadine 10 mg tablet 2022-10 00:00: 00 Yes [id number] 10mg Take 1 tablet by mouth at bedtime as needed for Allergies or Runny nose. [facility] albuterol 90 mcg/actuati on inhaler 2022-10 00:00: 00 Yes [id number] 2{puff} Inhale 2 Puffs every 4 (four) hours as needed for Wheezing or Shortness of Breath. [facility] benzonatate 200 mg capsule 2022-10 00:00: 00 11-12 00:00 :00 No [id number] 200mg Take 1 capsule by mouth 3 (three) times daily as needed for Cough. [facility] fluticasone propionate 50 mcg/actuati on nasal spray 2022-10 00:00: 00 11-12 00:00 :00 No [id number] 2{spray } Use 2 Sprays in each nostril in the morning. [facility] predniSONE 20 mg tablet 2022-10 00:00: 00 07-31 04:59 :00 No [id number] 40mg Take 2 tablets by mouth in the morning for 5 days. [facility] TAKE 1 TABLET DAILY. 2022-10 00:00: 00 01-30 00:00 :00 No 10 Darryl Waggoner ibuprofen 800 mg tablet 07-12 00:00: 00 11-12 00:00 :00 No [id number] 800mg Take 1 tablet by mouth every 8 (eight) hours. [facility] methylPREDN ISolone sodium succinate (SOLU-MEDRO L) injection 125 mg 06-24 17:00: 00 06-24 11:35 :44 No 125mg 125 mg, Intramuscu lar, Q6H, First dose on 06/24/23 at 1200, Until Discontinu ed, Routine [facility] gabapentin 300 mg capsule 06-24 00:00: 00 11-12 00:00 :00 No [id number] 300mg Take 1 capsule by mouth in the morning and 1 capsule at noon and 1 capsule in the evening. [facility] codeine-gua ifenesin (ROBITUSSIN AC) 10-100 mg/5 mL oral solution 10 mL 06-18 06:15: 06-18 06:23 :00 No 10mL 10 mL, Oral, ONCE, 1 dose, On Sun06/18/23 at 0115, NICOLASA [facility] azithromyci n (ZITHROMAX) tablet 500 mg 06-18 06:15: 06-18 06:24 :00 No 500mg 500 mg, Oral, ONCE, 1 dose, On Sun06/18/23 at 0115, NICOLASA
Re ason for Anti-Infec tive: Documented Infection< br>Documen zoila Infection Site: Respirator y
Durat ion of Therapy: 7 days [facility] benzonatate 200 mg capsule 06-18 00:00: 00 11-12 00:00 :00 No [id number] 200mg Take 1 capsule by mouth 3 (three) times daily as needed for Cough. [facility] azithromyci n 250 mg tablet 06-18 00:00: 00 09-03 00:00 :00 No [id number] 250mg Take 1 tablet by mouth SEE-INSTRU CTIONS. Take 500 mg day 1, then 250 mg days 2 to 5. [facility] ondansetron 4 mg tablet 06-18 00:00: 00 09-03 00:00 :00 No [id number] 1 or 2 tablets every 8 hours as needed for nausea [facility] TAKE 1 TABLET BY MOUTH TWICE A DAY 06-14 00:00: 00 01-30 00:00 :00 No 500 Darryl Waggoner metroNIDAZO LE (FLAGYL) tablet 500 mg 06-12 08:45: 00 06-12 08:32 :00 No 500mg 500 mg, Oral, ONCE, 1 dose, On Sun06/12/23 at 0345, Routine
Reason for Anti-Infec tive: Empiric Therapy for Suspected Infection< br>Empiric Therapy Site: Pelvic
Duration of therapy: 72 hours [facility] doxycycline hyclate (Vibramycin ) capsule 100 mg 06-12 07:45: 00 06-12 08:32 :00 No 100mg 100 mg, Oral, ONCE, 1 dose, On Sun06/12/23 at 0245, NICOLASA
Re ason for Anti-Infec tive: Documented Infection< br>Documen zoila Infection Site: Pelvic
Duration of Therapy: 14 days [facility] morpHINE (4 mg/mL) injection 4 mg 06-12 07:45: 00 06-12 08:32 :00 No 4mg 4 mg, Slow IV Push, ONCE, 1 dose, On Sun06/12/23 at 0245, STAT [facility] ketorolac (TORADOL) injection 30 mg 06-12 06:15: 00 06-12 05:10 :00 No 30mg 30 mg, Slow IV Push, ONCE, 1 dose, On Sun06/12/23 at 0115, NICOLASA [facility] NaCl 0.9% (NS) bolus infusion 1,000 mL 06-12 06:15: 06-12 06:56 :00 No 1000mL at 999 mL/hr, 1,000 mL, IV Infusion, ONCE, 1 dose, On Sun06/12/23 at 0115, STAT [facility] cefTRIAXone (ROCEPHIN) 1,000 mg in NaCl 0.9% (NS) 100 mL MINI-BAG 06-12 05:15: 00 06-12 06:56 :00 No 1000mg 1,000 mg, IV Piggyback, ONCE, 1 dose, On Sun06/12/23 at 0015, Administer over 30 Minutes, 100 mL
Reas on for Anti-Infec tive: Empiric Therapy for Suspected Infection< br>Empiric Therapy Site: Pelvic
Duration of therapy: 72 hours [facility] ondansetron (ZOFRAN (PF)) injection 4 mg 06-12 05:15: 00 06-12 05:10 :00 No 4mg 4 mg, Slow IV Push, ONCE, 1 dose, On Sun06/12/23 at 0015, NICOLASA [facility] ibuprofen 800 mg tablet 06-12 00:00: 00 07-12 00:00 :00 No [id number] 800mg Take 1 tablet by mouth every 8 (eight) hours as needed for Pain (scale 4-6). [facility] TAKE 1 TABLET TWICE DAILY. 05-31 00:00: 00 01-30 00:00 :00 No 100 Darryl Ackerman Edilson iopamidol (ISOVUE 370-500 mL) injection 85 mL 05-28 08:30: 00 05-28 08:30 :00 No [id number] 85mL 85 mL, Intravenou s, ONCE, 1 dose, On Sun05/28/23 at 0330, Routine [facility] NaCl 0.9% (NS) bolus infusion 1,000 mL 05-28 08:15: 00 05-28 08:52 :00 No 1000mL at 999 mL/hr, 1,000 mL, IV Infusion, ONCE, 1 dose, On Sun05/28/23 at 0315, STAT [facility] pantoprazol e (PROTONIX) 80 mg in NaCl 0.9% (NS) 20 mL syringe 05-28 08:00: 00 05-28 08:02 :00 No 80mg 80 mg, IV Push, ONCE, 1 dose, On Sun05/28/23 at 0300, Administer over 2 Minutes, 20 mL [facility] ondansetron (ZOFRAN (PF)) injection 4 mg 05-28 06:45: 00 05-28 06:36 :00 No 4mg 4 mg, Slow IV Push, ONCE, 1 dose, On Sun05/28/23 at 0145, NICOLASA [facility] ondansetron 4 mg disintegrat ing tablet 05-28 00:00: 00 09-03 00:00 :00 No [id number] 4mg Take 1 tablet by mouth every 8 (eight) hours as needed for Nausea and Vomiting (N/V). [facility] esomeprazol e (NEXIUM) 40 mg capsule 8-14 00:00: 00 06-12 04:59 :00 No [id number] 40mg Take 1 capsule by mouth daily with breakfast for 14 days. [facility] INSTILL 4 DROPS IN THE AFFECTED EAR(S) TWICE DAILY 7-10 00:00: 00 01-30 00:00 :00 No 301 Darryl Waggoner dexamethaso ne (DECADRON PHOSPHATE) injection 10 mg 03-07 05:00: 00 03-07 03:56 :00 No 10mg 10 mg, Oral, ONCE, 1 dose, On Sun03/07/23 at 0000, Routine [facility] levocetiriz ine 5 mg tablet 03-06 00:00: 00 09-03 00:00 :00 No [id number] 5mg Take 1 tablet by mouth every evening. [facility] butorphanol (STADOL) injection 1 mg 02-02 08:00: 00 02-02 07:18 :00 No 1mg 1 mg, IV Push, ONCE, 1 dose, On Sun02/02/23 at 0300, NICOLASA [facility] ketorolac (TORADOL) injection 30 mg 02-02 07:45: 00 02-02 06:42 :00 No 30mg 30 mg, Slow IV Push, ONCE, 1 dose, On Sun02/02/23 at 0245, Routine [facility] metoclopram farzana HCl (REGLAN) injection 10 mg 02-02 06:45: 00 02-02 06:41 :00 No 10mg 10 mg, Slow IV Push, ONCE, 1 dose, On Sun02/02/23 at 0145, NICOLASA [facility] diphenhydrA MINE (BENADRYL) injection 25 mg 02-02 06:45: 00 02-02 06:43 :00 No 25mg 25 mg, Slow IV Push, ONCE, 1 dose, On Sun02/02/23 at 0145, STAT [facility] butalbital- acetaminoph en-caff 50-325-40 mg tablet 02-02 00:00: 00 11-12 00:00 :00 No [id number] 1{tbl} Take 1 tablet by mouth every 4 (four) hours as needed for Pain (scale 7-10). [facility] ondansetron (ZOFRAN) 4 mg tablet 02-02 00:00: 00 05-28 00:00 :00 No [id number] 4mg Take 1 tablet by mouth every 8 (eight) hours as needed for Nausea and Vomiting (N/V). [facility] iopamidol (ISOVUE 370-500 mL) injection 98 mL 10-24 21:00: 00 10-24 21:00 :00 No [id number] 98mL 98 mL, Intravenou s, ONCE, 1 dose, On Sun10/24/22 at 1500, Routine [facility] morpHINE (4 mg/mL) injection 4 mg 10-24 18:30: 00 10-24 19:03 :00 No 4mg 4 mg, Slow IV Push, ONCE, 1 dose, On Sun10/24/22 at 1230, STAT [facility] ondansetron (ZOFRAN (PF)) injection 4 mg 10-24 18:30: 00 10-24 19:01 :00 No 4mg 4 mg, Slow IV Push, ONCE, 1 dose, On Sun10/24/22 at 1230, NICOLASA [facility] NaCl 0.9% (NS) bolus infusion 1,000 mL 10-24 18:30: 00 10-24 21:40 :00 No 1000mL at 999 mL/hr, 1,000 mL, IV Infusion, ONCE, 1 dose, On Sun10/24/22 at 1230, STAT [facility] ondansetron 4 mg disintegrat ing tablet 10-24 00:00: 00 05-28 00:00 :00 No [id number] 4mg Take 1 tablet by mouth every 8 (eight) hours as needed for Nausea and Vomiting (N/V) for up to 10 doses. [facility] cephALEXin (KEFLEX) 500 mg capsule - 00:00: 00 11-01 05:59 :00 No [id number] 500mg Take 1 capsule by mouth 4 (four) times daily for 7 days. [facility] ibuprofen 600 mg tablet -10 00:00: 00 10-30 05:59 :00 No [id number] 600mg Take 1 tablet by mouth every 8 (eight) hours as needed for Pain (scale 4-6) for up to 5 days. [facility] dicyclomine 20 mg tablet 10-24 00:00: 00 10-30 05:59 :00 No [id number] 20mg Take 1 tablet by mouth 3 (three) times daily as needed for Abdominal pain for up to 5 days. [facility] megestroL 40 mg tablet 2021-10 0-07 00:00: 11-12 00:00 :00 No [id number] 100 Take by mouth 2 tabs for first 7 days then 1 tablet by mouth daily for next 14 days. [facility] cephALEXin (KEFLEX) 500 mg capsule 2021-10 0-07 00:00: 07-29 04:59 :00 No [id number] 100 500mg Take 1 capsule by mouth in the morning and 1 capsule at noon and 1 capsule in the evening. Do all this for 7 days. [facility] iopamidol (ISOVUE 370-500 mL) injection 65 mL 05-19 21:30: 00 05-19 21:45 :00 No [id number] 65mL 65 mL, Intravenou s, ONCE, 1 dose, On Sun05/19/22 at 1645, Routine [facility] [facility] ondansetron (ZOFRAN (PF)) injection 4 mg 05-19 21:30: 00 05-19 20:51 :00 No 4mg 4 mg, Slow IV Push, ONCE, 1 dose, On Sun05/19/22 at 1630, [facility] ketorolac (TORADOL) injection 30 mg 05-19 21:30: 00 05-19 20:51 :00 No 30mg 30 mg, Slow IV Push, ONCE, 1 dose, On Sun05/19/22 at 1630, Routine [facility] NaCl 0.9% (NS) bolus infusion 1,000 mL 05-19 21:30: 00 05-19 22:08 :00 No 1000mL at 999 mL/hr, 1,000 mL, IV Infusion, ONCE, 1 dose, On Sun05/19/22 at 1630, [facility] tamsulosin 0.4 mg 24 hr capsule 05-19 00:00: 00 11-12 00:00 :00 No [id number] .4mg Take 1 capsule by mouth at bedtime. [facility] traMADoL 50 mg tablet 05-19 00:00: 00 05-27 04:59 :00 No [id number] 50mg Take 1 tablet by mouth every 6 (six) hours as needed for Pain (scale 4-6) for up to 7 days. Indication s: acute pain [facility] ketorolac (TORADOL) injection 30 mg 05-13 08:45: 00 05-13 07:40 :00 No 30mg 30 mg, Slow IV Push, ONCE, 1 dose, On 05/13/22 at 0345, Routine [facility] ketorolac 10 mg tablet 05-13 00:00: 00 11-12 00:00 :00 No [id number] 10mg Take 1 tablet by mouth every 6 (six) hours as needed for Pain (scale 7-10). [facility] butalbital- acetaminoph en-caff (ESGIC) 50-325-40 mg tablet 2 tablet 04-01 23:15: 00 04-01 22:22 :00 No 2{tbl} 2 tablet, Oral, ONCE NOW, 1 dose, On 04/01/22 at 1815, Routine [facility] ketorolac (TORADOL) injection 30 mg 04-01 23:15: 00 04-01 22:21 :00 No 30mg 30 mg, Intramuscu lar, ONCE, 1 dose, On 04/01/22 at 1815, [facility] No known medications 04-01 18:30: 37 No [facility] No known medications 10-25 13:51: 01 No [facility] cefdinir 300 mg capsule 10-25 00:00: 00 11-02 05:59 :00 No [id number] 300mg Take 1 capsule by mouth 2 (two) times daily for 7 days. [facility] Iron (ferrous sulfate) 325 mg (65 mg iron) tablet 10-21 00:00: 00 No 1(65 mg iron) Iron (ferrous sulfate) 325 mg (65 mg iron) tablet 10-21 00:00: 00 No 1(65 mg iron) Iron (ferrous sulfate) 325 mg (65 mg iron) tablet 10-21 00:00: 00 Yes 1(65 mg iron) Darryl Waggoner medroxyprog esterone 10 mg tablet 10-20 00:00: 00 No 1mg medroxyprog esterone 10 mg tablet 10-20 00:00: 00 No 1mg medroxyprog esterone 10 mg tablet 10-20 00:00: 00 Yes 1mg Darryl Waggoner naproxen 500 mg tablet 10-17 00:00: 00 No 1mg naproxen 500 mg tablet 10-17 00:00: 00 No 1mg naproxen 500 mg tablet 10-17 00:00: 00 Yes 1mg Darryl Waggoner ibuprofen 800 mg tablet 2020-10 00:00: 00 No 1mg ibuprofen 800 mg tablet 2020-10 00:00: 00 No 1mg ibuprofen 800 mg tablet 2020-10 00:00: 00 Yes 1mg Darryl Tyron Edilson No known medications 2021-0 6-25 21:44: 39 No [facility] amitriptyli ne 25 mg tablet 03-03 00:00: 00 No 1mg amitriptyli ne 25 mg tablet 03-03 00:00: 00 No 1mg amitriptyli ne 25 mg tablet 03-03 00:00: 00 Yes 1mg Darryl Waggoner Dose Unknown 01-08 00:00: 00 No Dose Unknown 01-08 00:00: 00 No Dose Unknown 01-08 00:00: 00 Yes Darryl Waggoner Celexa 20 mg tablet 12-08 00:00: 00 No 1mg gabapentin 600 mg tablet 12-08 00:00: 00 No 1mg Dose Unknown 12-08 00:00: 00 No Celexa 20 mg tablet 12-08 00:00: 00 No 1mg gabapentin 600 mg tablet 24 00:00: 00 No 1mg Dose Unknown 12-08 00:00: 00 No Celexa 20 mg tablet 24 00:00: 00 Yes 1mg Darryl Waggoner gabapentin 600 mg tablet 24 00:00: 00 Yes 1mg Darryl Waggoner Dose Unknown 12-08 00:00: 00 Yes Darryl Waggoner Vital Signs Vital Name Observation Time Observation Value Comments S ource Systolic blood pressure 2024-11-19 04:41:00 120 mm[Hg] [facility] Diastolic blood pressure 2024-11-19 04:41:00 93 mm[Hg] [facility] Heart rate 2024-11-19 04:41:00 78 /min [facility] Body temperature 2024-11-19 04:41:00 36.83 Jennifer [facility] Respiratory rate 2024-11-19 04:41:00 16 /min [facility] Oxygen saturation in Arterial blood by Pulse oximetry 2024-11-19 04:41:00 99 /min [facility] Body height 2024-11-19 03:00:00 157.5 cm [facility] Body weight 2024-11-19 03:00:00 86.183 kg [facility] BMI 2024-11-19 03:00:00 34.75 kg/m2 [facility] Systolic blood pressure 2024-11-09 04:37:00 130 mm[Hg] [facility] Diastolic blood pressure 2024-11-09 04:37:00 89 mm[Hg] [facility] Heart rate 2024-11-09 04:37:00 88 /[facility] Body temperature 2024-11-09 04:37:00 37 Jennifer [facility] Respiratory rate 2024-11-09 04:37:00 19 /min [facility] Body height 2024-11-09 04:37:00 157.5 cm [facility] Body weight 2024-11-09 04:37:00 81.647 kg [facility] BMI 2024-11-09 04:37:00 32.92 kg/m2 [facility] Oxygen saturation in Arterial blood by Pulse oximetry 2024-11-09 04:37:00 100 /min [facility] Systolic blood pressure 2024-07-25 14:30:00 124 mm[Hg] [facility] Diastolic blood pressure 2024-07-25 14:30:00 83 mm[Hg] [facility] Heart rate 2024-07-25 14:30:00 88 /min [facility] Respiratory rate 2024-07-25 14:30:00 14 /min [facility] Oxygen saturation in Arterial blood by Pulse oximetry 2024-07-25 14:30:00 99 /min [facility] Body temperature 2024-07-25 12:49:00 37.22 Jennifer [facility] Body height 2024-07-25 12:49:00 157.5 cm [facility] Body weight 2024-07-25 12:49:00 86.637 kg [facility] BMI 2024-07-25 12:49:00 34.93 kg/m2 [facility] Systolic blood pressure 2024-07-04 10:38:00 117 mm[Hg] [facility] Diastolic blood pressure 2024-07-04 10:38:00 79 mm[Hg] [facility] Heart rate 2024-07-04 10:38:00 82 /min [facility] Body temperature 2024-07-04 10:38:00 36.89 Jennifer [facility] Respiratory rate 2024-07-04 10:38:00 14 /min [facility] Oxygen saturation in Arterial blood by Pulse oximetry 2024-07-04 10:38:00 100 /min [facility] BMI 2024-07-04 07:28:00 32.01 kg/m2 [facility] Body height 2024-07-04 07:28:00 157.5 cm [facility] Body weight 2024-07-04 07:28:00 79.379 kg [facility] Systolic blood pressure 2024-03-12 11:00:00 127 mm[Hg] [facility] Diastolic blood pressure 2024-03-12 11:00:00 94 mm[Hg] [facility] Heart rate 2024-03-12 11:00:00 84 /min [facility] Body temperature 2024-03-12 11:00:00 36.61 Jennifer [facility] Respiratory rate 2024-03-12 11:00:00 14 /min [facility] Oxygen saturation in Arterial blood by Pulse oximetry 2024-03-12 11:00:00 100 /min [facility] Body height 2024-03-12 07:04:00 157.5 cm [facility] Body weight 2024-03-12 07:04:00 87 kg [facility] BMI 2024-03-12 07:04:00 35.08 kg/m2 [facility] Systolic blood pressure 2024-02-03 12:00:00 121 mm[Hg] [facility] Diastolic blood pressure 2024-02-03 12:00:00 82 mm[Hg] [facility] Heart rate 2024-02-03 12:00:00 80 /min [facility] Respiratory rate 2024-02-03 12:00:00 17 /min [facility] Oxygen saturation in Arterial blood by Pulse oximetry 2024-02-03 12:00:00 100 /min [facility] Body temperature 2024-02-03 09:01:00 37.33 Jennifer [facility] Body height 2024-02-03 09:01:00 157.5 cm [facility] Body weight 2024-02-03 09:01:00 81.647 kg [facility] BMI 2024-02-03 09:01:00 32.92 kg/m2 [facility] Systolic blood pressure 2024-01-02 05:38:00 109 mm[Hg] [facility] Diastolic blood pressure 2024-01-02 05:38:00 91 mm[Hg] [facility] Heart rate 2024-01-02 05:38:00 93 /min [facility] Body temperature 2024-01-02 05:38:00 36.28 Jennifer [facility] Respiratory rate 2024-01-02 05:38:00 20 /min [facility] Oxygen saturation in Arterial blood by Pulse oximetry 2024-01-02 05:38:00 99 /min [facility] Body height 2024-01-02 03:25:00 157.5 cm [facility] Body weight 2024-01-02 03:25:00 81.647 kg [facility] BMI 2024-01-02 03:25:00 32.92 kg/m2 [facility] Systolic blood pressure 2023-12-26 08:51:00 115 mm[Hg] [facility] Diastolic blood pressure 2023-12-26 08:51:00 78 mm[Hg] [facility] Heart rate 2023-12-26 08:51:00 98 /min [facility] Body temperature 2023-12-26 08:51:00 37.5 Jennifer [facility] Respiratory rate 2023-12-26 08:51:00 12 /min [facility] Body height 2023-12-26 08:51:00 157.5 cm [facility] Body weight 2023-12-26 08:51:00 85.322 kg [facility] BMI 2023-12-26 08:51:00 34.40 kg/m2 [facility] Oxygen saturation in Arterial blood by Pulse oximetry 2023-12-26 08:51:00 100 /min [facility] Systolic blood pressure 2023-11-20 16:29:00 120 mm[Hg] [facility] Diastolic blood pressure 2023-11-20 16:29:00 89 mm[Hg] [facility] Heart rate 2023-11-20 16:29:00 85 /min [facility] Respiratory rate 2023-11-20 16:29:00 16 /min [facility] Oxygen saturation in Arterial blood by Pulse oximetry 2023-11-20 16:29:00 97 /min [facility] Body temperature 2023-11-20 12:44:00 37.11 Jennifer [facility] Body height 2023-11-20 12:44:00 157.5 cm [facility] Body weight 2023-11-20 12:44:00 82.101 kg [facility] BMI 2023-11-20 12:44:00 33.11 kg/m2 [facility] Systolic blood pressure 2023-11-12 06:09:00 135 mm[Hg] [facility] Diastolic blood pressure 2023-11-12 06:09:00 86 mm[Hg] [facility] Heart rate 2023-11-12 06:09:00 89 /min [facility] Body temperature 2023-11-12 06:09:00 37.28 Jennifer [facility] Respiratory rate 2023-11-12 06:09:00 16 /min [facility] Body height 2023-11-12 06:09:00 157.5 cm [facility] Body weight 2023-11-12 06:09:00 83.553 kg [facility] BMI 2023-11-12 06:09:00 33.69 kg/m2 [facility] Oxygen saturation in Arterial blood by Pulse oximetry 2023-11-12 06:09:00 100 /min [facility] Systolic blood pressure 2023-10-28 02:30:00 121 mm[Hg] [facility] Diastolic blood pressure 2023-10-28 02:30:00 80 mm[Hg] [facility] Heart rate 2023-10-28 02:30:00 124 /min [facility] Body temperature 2023-10-28 02:30:00 38 Jennifer [facility] Respiratory rate 2023-10-28 02:30:00 20 /min [facility] Body weight 2023-10-28 02:30:00 86.183 kg [facility] BMI 2023-10-28 02:30:00 34.75 kg/m2 [facility] Oxygen saturation in Arterial blood by Pulse oximetry 2023-10-28 02:30:00 96 /min [facility] Systolic blood pressure 2023-09-09 02:47:12 116 mm[Hg] [facility] Diastolic blood pressure 2023-09-09 02:47:12 85 mm[Hg] [facility] Heart rate 2023-09-09 02:47:12 78 /min [facility] Body temperature 2023-09-09 02:47:12 36.28 Jennifer [facility] Respiratory rate 2023-09-09 02:47:12 18 /min [facility] Oxygen saturation in Arterial blood by Pulse oximetry 2023-09-09 02:47:12 98 /min [facility] Body height 2023-09-09 00:30:00 157.5 cm [facility] Body weight 2023-09-09 00:30:00 85.276 kg [facility] BMI 2023-09-09 00:30:00 34.39 kg/m2 [facility] Systolic blood pressure 2023-09-07 12:45:00 119 mm[Hg] [facility] Diastolic blood pressure 2023-09-07 12:45:00 83 mm[Hg] [facility] Heart rate 2023-09-07 12:45:00 101 /min [facility] Body temperature 2023-09-07 12:45:00 37.5 Jennifer [facility] Respiratory rate 2023-09-07 12:45:00 18 /min [facility] Body height 2023-09-07 12:45:00 157.5 cm [facility] Body weight 2023-09-07 12:45:00 82.872 kg [facility] BMI 2023-09-07 12:45:00 33.42 kg/m2 [facility] Oxygen saturation in Arterial blood by Pulse oximetry 2023-09-07 12:45:00 99 /min [facility] Systolic blood pressure 2023-09-04 04:00:00 112 mm[Hg] [facility] Diastolic blood pressure 2023-09-04 04:00:00 97 mm[Hg] [facility] Heart rate 2023-09-04 04:00:00 94 /min [facility] Body temperature 2023-09-04 04:00:00 36.89 Jennifer [facility] Oxygen saturation in Arterial blood by Pulse oximetry 2023-09-04 04:00:00 98 /min [facility] Respiratory rate 2023-09-04 03:00:00 17 /min [facility] Body height 2023-09-04 00:54:00 157.5 cm [facility] Body weight 2023-09-04 00:54:00 83.915 kg [facility] BMI 2023-09-04 00:54:00 33.84 kg/m2 [facility] Systolic blood pressure 2023-08-04 04:05:00 139 mm[Hg] [facility] Diastolic blood pressure 2023-08-04 04:05:00 77 mm[Hg] [facility] Heart rate 2023-08-04 04:05:00 104 /min [facility] Body temperature 2023-08-04 04:05:00 36.72 Jennifer [facility] Respiratory rate 2023-08-04 04:05:00 16 /min [facility] Body height 2023-08-04 04:05:00 157.5 cm [facility] Body weight 2023-08-04 04:05:00 85.957 kg [facility] BMI 2023-08-04 04:05:00 34.66 kg/m2 [facility] Oxygen saturation in Arterial blood by Pulse oximetry 2023-08-04 04:05:00 100 /min [facility] Systolic blood pressure 2023-07-26 07:38:00 134 mm[Hg] [facility] Diastolic blood pressure 2023-07-26 07:38:00 95 mm[Hg] [facility] Heart rate 2023-07-26 07:38:00 114 /min [facility] Body temperature 2023-07-26 07:38:00 37.28 Jennifer [facility] Respiratory rate 2023-07-26 07:38:00 18 /min [facility] Body height 2023-07-26 07:38:00 157.5 cm [facility] Body weight 2023-07-26 07:38:00 86.183 kg [facility] BMI 2023-07-26 07:38:00 34.75 kg/m2 [facility] Oxygen saturation in Arterial blood by Pulse oximetry 2023-07-26 07:38:00 99 /min [facility] Systolic blood pressure 2023-07-25 14:52:00 126 mm[Hg] [facility] Diastolic blood pressure 2023-07-25 14:52:00 96 mm[Hg] [facility] Heart rate 2023-07-25 14:52:00 98 /min [facility] Body temperature 2023-07-25 14:52:00 37 Jennifer [facility] Respiratory rate 2023-07-25 14:52:00 16 /min [facility] Oxygen saturation in Arterial blood by Pulse oximetry 2023-07-25 14:52:00 98 /min [facility] Body height 2023-07-25 12:33:00 157.5 cm [facility] Body weight 2023-07-25 12:33:00 86.456 kg [facility] BMI 2023-07-25 12:33:00 34.86 kg/m2 [facility] Systolic blood pressure 2023-07-12 12:34:00 127 mm[Hg] [facility] Diastolic blood pressure 2023-07-12 12:34:00 86 mm[Hg] [facility] Heart rate 2023-07-12 12:34:00 86 /min [facility] Body temperature 2023-07-12 12:34:00 36.72 Jennifer [facility] Respiratory rate 2023-07-12 12:34:00 16 /min [facility] Body height 2023-07-12 12:34:00 157.5 cm [facility] Body weight 2023-07-12 12:34:00 86.183 kg [facility] BMI 2023-07-12 12:34:00 34.75 kg/m2 [facility] Oxygen saturation in Arterial blood by Pulse oximetry 2023-07-12 12:34:00 98 /min [facility] Systolic blood pressure 2023-06-24 10:24:00 118 mm[Hg] [facility] Diastolic blood pressure 2023-06-24 10:24:00 89 mm[Hg] [facility] Heart rate 2023-06-24 10:24:00 95 /min [facility] Body temperature 2023-06-24 10:24:00 36.78 Jennifer [facility] Respiratory rate 2023-06-24 10:24:00 18 /min [facility] Body height 2023-06-24 10:24:00 157.5 cm [facility] Body weight 2023-06-24 10:24:00 89.812 kg [facility] BMI 2023-06-24 10:24:00 36.21 kg/m2 [facility] Oxygen saturation in Arterial blood by Pulse oximetry 2023-06-24 10:24:00 100 /min [facility] Systolic blood pressure 2023-06-18 04:52:00 113 mm[Hg] [facility] Diastolic blood pressure 2023-06-18 04:52:00 82 mm[Hg] [facility] Heart rate 2023-06-18 04:52:00 100 /min [facility] Body temperature 2023-06-18 04:52:00 37.39 Jennifer [facility] Respiratory rate 2023-06-18 04:52:00 18 /min [facility] Body height 2023-06-18 04:52:00 157.5 cm [facility] Body weight 2023-06-18 04:52:00 89.903 kg [facility] BMI 2023-06-18 04:52:00 36.25 kg/m2 [facility] Oxygen saturation in Arterial blood by Pulse oximetry 2023-06-18 04:52:00 100 /min [facility] Systolic blood pressure 2023-06-12 09:00:00 105 mm[Hg] [facility] Diastolic blood pressure 2023-06-12 09:00:00 74 mm[Hg] [facility] Heart rate 2023-06-12 09:00:00 74 /min [facility] Respiratory rate 2023-06-12 09:00:00 16 /min [facility] Oxygen saturation in Arterial blood by Pulse oximetry 2023-06-12 09:00:00 97 /min [facility] Body temperature 2023-06-12 04:09:00 36.89 Jennifer [facility] Body height 2023-06-12 04:09:00 157.5 cm [facility] Body weight 2023-06-12 04:09:00 86.183 kg [facility] BMI 2023-06-12 04:09:00 34.75 kg/m2 [facility] Systolic blood pressure 2023-05-28 08:00:00 123 mm[Hg] [facility] Diastolic blood pressure 2023-05-28 08:00:00 78 mm[Hg] [facility] Heart rate 2023-05-28 08:00:00 93 /min [facility] Oxygen saturation in Arterial blood by Pulse oximetry 2023-05-28 08:00:00 99 /min [facility] Respiratory rate 2023-05-28 06:00:00 18 /min [facility] Body temperature 2023-05-28 05:37:00 35.72 Jennifer [facility] Body height 2023-05-28 05:37:00 157.5 cm [facility] Body weight 2023-05-28 05:37:00 87.136 kg [facility] BMI 2023-05-28 05:37:00 35.14 kg/m2 [facility] Systolic blood pressure 2023-03-07 03:59:00 122 mm[Hg] [facility] Diastolic blood pressure 2023-03-07 03:59:00 77 mm[Hg] [facility] Heart rate 2023-03-07 03:59:00 97 /min [facility] Body temperature 2023-03-07 03:59:00 36.67 Jennifer [facility] Respiratory rate 2023-03-07 03:59:00 18 /min [facility] Body height 2023-03-07 03:59:00 157.5 cm [facility] Body weight 2023-03-07 03:59:00 79.379 kg [facility] BMI 2023-03-07 03:59:00 32.01 kg/m2 [facility] Oxygen saturation in Arterial blood by Pulse oximetry 2023-03-07 03:59:00 99 /min [facility] Heart rate 2023-02-02 07:48:00 73 /min [facility] Oxygen saturation in Arterial blood by Pulse oximetry 2023-02-02 07:48:00 98 /min [facility] Systolic blood pressure 2023-02-02 07:00:00 122 mm[Hg] [facility] Diastolic blood pressure 2023-02-02 07:00:00 79 mm[Hg] [facility] Respiratory rate 2023-02-02 07:00:00 15 /min [facility] Body temperature 2023-02-02 06:07:00 36.94 Jennifer [facility] Body height 2023-02-02 06:07:00 157.5 cm [facility] Body weight 2023-02-02 06:07:00 79.379 kg [facility] BMI 2023-02-02 06:07:00 32.01 kg/m2 [facility] Systolic blood pressure 2022-10-24 21:42:00 114 mm[Hg] [facility] Diastolic blood pressure 2022-10-24 21:42:00 74 mm[Hg] [facility] Heart rate 2022-10-24 21:42:00 72 /min [facility] Respiratory rate 2022-10-24 21:42:00 16 /min [facility] Oxygen saturation in Arterial blood by Pulse oximetry 2022-10-24 21:42:00 99 /min [facility] Body temperature 2022-10-24 18:03:00 37.33 Jennifer [facility] Body height 2022-10-24 18:03:00 157.5 cm [facility] Body weight 2022-10-24 18:03:00 79.379 kg [facility] BMI 2022-10-24 18:03:00 32.01 kg/m2 [facility] Systolic blood pressure 2022-07-21 12:46:00 115 mm[Hg] [facility] Diastolic blood pressure 2022-07-21 12:46:00 83 mm[Hg] [facility] Heart rate 2022-07-21 12:46:00 82 /min [facility] Body temperature 2022-07-21 12:46:00 36.89 Jennifer [facility] Respiratory rate 2022-07-21 12:46:00 18 /min [facility] Body weight 2022-07-21 12:46:00 78.019 kg [facility] BMI 2022-07-21 12:46:00 31.46 kg/m2 [facility] Oxygen saturation in Arterial blood by Pulse oximetry 2022-07-21 12:46:00 99 /min [facility] Systolic blood pressure 2022-05-19 22:00:00 128 mm[Hg] [facility] Diastolic blood pressure 2022-05-19 22:00:00 68 mm[Hg] [facility] Heart rate 2022-05-19 22:00:00 78 /min [facility] Body temperature 2022-05-19 22:00:00 36.78 Jennifer [facility] Respiratory rate 2022-05-19 22:00:00 18 /min [facility] Oxygen saturation in Arterial blood by Pulse oximetry 2022-05-19 22:00:00 100 /min [facility] Body height 2022-05-19 20:31:00 157.5 cm [facility] Body weight 2022-05-19 20:31:00 78.019 kg [facility] BMI 2022-05-19 20:31:00 31.46 kg/m2 [facility] Heart rate 2022-05-13 08:30:00 83 /min [facility] Oxygen saturation in Arterial blood by Pulse oximetry 2022-05-13 08:30:00 99 /min [facility] Systolic blood pressure 2022-05-13 08:00:00 111 mm[Hg] [facility] Diastolic blood pressure 2022-05-13 08:00:00 80 mm[Hg] [facility] Body temperature 2022-05-13 07:05:00 37 Jennifer [facility] Respiratory rate 2022-05-13 07:05:00 18 /min [facility] Body height 2022-05-13 07:05:00 157.5 cm [facility] Body weight 2022-05-13 07:05:00 76.658 kg [facility] BMI 2022-05-13 07:05:00 30.91 kg/m2 [facility] Systolic blood pressure 2022-04-01 21:47:00 124 mm[Hg] [facility] Diastolic blood pressure 2022-04-01 21:47:00 84 mm[Hg] [facility] Heart rate 2022-04-01 21:47:00 89 /min Unive [facility] Body temperature 2022-04-01 21:47:00 37.22 Jennifer [facility] Respiratory rate 2022-04-01 21:47:00 22 /min [facility] Body weight 2022-04-01 21:47:00 77.111 kg [facility] BMI 2022-04-01 21:47:00 29.18 kg/m2 [facility] Oxygen saturation in Arterial blood by Pulse oximetry 2022-04-01 21:47:00 99 /min [facility] Systolic blood pressure 2021-10-25 19:42:00 103 mm[Hg] [facility] Diastolic blood pressure 2021-10-25 19:42:00 74 mm[Hg] [facility] Heart rate 2021-10-25 19:42:00 94 /min [facility] Body temperature 2021-10-25 19:42:00 37.67 Jennifer [facility] Respiratory rate 2021-10-25 19:42:00 18 /min [facility] Body weight 2021-10-25 19:42:00 70.761 kg [facility] BMI 2021-10-25 19:42:00 26.78 kg/m2 [facility] Oxygen saturation in Arterial blood by Pulse oximetry 2021-10-25 19:42:00 99 /min [facility] BP Systolic 2024-11-28 09:27:00 125 mm[Hg] Step hen F Edilson BP Diastolic 2024-11-28 09:27:00 88 mm[Hg] Osito phen F Edilson Weight Measured 2024-11-28 09:27:00 190.20 pounds Darryltriston Waggoner Height Measured 2024-11-28 09:27:00 63.00 inches Darryl Tyron Waggoner Body Temperature 2024-11-28 09:27:00 99.30 degrees Darryl Tyron Waggoner Heart Rate 2024-11-28 09:27:00 103.00 /min Step hen F Edilson Respiratory Rate 2024-11-28 09:27:00 18.00 /min Darryl Tyron Waggoner BP Systolic 2024-11-27 09:31:00 136 mm[Hg] Step hen F Edilson BP Diastolic 2024-11-27 09:31:00 89 mm[Hg] Osito phen F Edilson Weight Measured 2024-11-27 09:31:00 189.00 pounds Darryl F Edilson Height Measured 2024-11-27 09:31:00 63.00 inches Darryl F Edilson Body Temperature 2024-11-27 09:31:00 98.90 degrees Darryl F Edilson Heart Rate 2024-11-27 09:31:00 113.00 /min Step hen F Edilson Respiratory Rate 2024-11-27 09:31:00 Darryl F Edilson BP Systolic 2024-08-25 14:45:00 115 mm[Hg] Step [...] Edilson Respiratory Rate 2023-06-12 11:18:00 19.00 /min Daryrl F Edilson BP Systolic 2023-05-28 08:14:00 132 [...] ACUTE SERIES 2024-07-25 14:37:21 Do jasmina Marie [facility] POCT TEST 2024-07-25 13:23:00 Ryan Marie [facility] LIPASE 2024-07-25 13:21:00 Doni Marie [facility] COMP. METABOLIC PANEL ([id number]) 2024-07-25 13:21:00 Doni Marie [facility] CBC WITH DIFF 2024-07-25 13:21:00 Doni Marie [facility] URINALYSIS 2024-07-25 13:21:00 Marie, Doni [facility] URINE DRUG (IMMUNOASSAY) - COMPREHENSIVE DRUG SCREEN W/O REFLEX 2024-07-25 13:21:00 Doni Marie [facility] CT ABDOMEN PELVIS W CONTRAST 2024-07-04 08:54:02 Selene Parra [facility] POCT TEST 2024-07-04 07:36:00 Selene Parra [facility] LIPASE 2024-07-04 07:33:00 Selene Parra [facility] COMP. METABOLIC PANEL ([id number]) 2024-07-04 07:33:00 Selene Parra [facility] CBC WITH DIFF 2024-07-04 07:33:00 Selene Parra [facility] URINALYSIS 2024-07-04 07:33:00 Selene Parra [facility] CT ABDOMEN PELVIS W CONTRAST 2024-03-12 09:15:57 Selene Parra [facility] LIPASE 2024-03-12 09:01:00 Selene Parra [facility] COMP. METABOLIC PANEL ([id number]) 2024-03-12 09:01:00 Selene Parra [facility] CBC WITH DIFF 2024-03-12 09:01:00 Selene Parra [facility] EBV-MONONUCLEOSIS SCREEN 2024-02-03 10:22:00 Funmilayo Parra [facility] CT ABDOMEN PELVIS W CONTRAST 2024-02-03 10:08:28 Selene Parra [facility] POCT TEST 2024-02-03 09:09:00 Selene Parra [facility] LIPASE 2024-02-03 09:06:00 Selene Parra [facility] COMP. METABOLIC PANEL ([id number]) 2024-02-03 09:06:00 Selene Parra [facility] CBC WITH DIFF 2024-02-03 09:06:00 Selene Parra [facility] URINALYSIS 2024-02-03 09:06:00 Selene Parra [facility] RAPID STREP SCREEN FOR GROUP A 2024-02-03 09:06:00 Selene Parra [facility] ASSIGNMENT OF BENEFITS 2024-01-02 04:22:29 Docto r Unassigned, [place] [facility] RAPID STREP SCREEN FOR GROUP A 2024-01-02 04:20:00 Doni Marie [facility] RAPID INFLUENZA A/B 2024-01-02 03:50:00 Ryan Marie [facility] COVID-19 (ID NOW RAPID TESTING) 2024-01-02 03:50:00 Doni Marie [facility] CONSENT/REFUSAL FOR DIAGNOSIS AND TREATMENT 2024-01-02 03:16:29 Doctor Unassigned, [place] [facility] CONSENT/REFUSAL FOR DIAGNOSIS AND TREATMENT 2023-12-26 08:43:59 Doctor Unassigned, [place] [facility] [address] Colposcopy Cervix Endocervical Curettage 2023-12-17 00:00:00 Darryl Waggoner US OVARY TORSION 2023-11-20 16:01:25 Doni Marie [facility] CT ABDOMEN PELVIS W CONTRAST 2023-11-20 14:40:23 Doni Marie [facility] COMP. METABOLIC PANEL ([id number]) 2023-11-20 13:27:00 Doni Marie [facility] CBC WITH DIFF 2023-11-20 13:27:00 Doni Marie [facility] URINALYSIS 2023-11-20 13:27:00 Doni Marie [facility] POCT TEST 2023-11-20 13:26:00 Ryan Marie [facility] CONSENT/REFUSAL FOR DIAGNOSIS AND TREATMENT 2023-11-20 12:37:06 Doctor Unassigned, [place] [facility] CONSENT/REFUSAL FOR DIAGNOSIS AND TREATMENT 2023-11-12 06:04:20 Doctor Unassigned, [place] [facility] CONSENT/REFUSAL FOR DIAGNOSIS AND TREATMENT 2023-10-28 02:10:42 Doctor Unassigned, [place] [facility] URINALYSIS 2023-09-09 02:35:00 Danie Ontiveros U [facility] XR KUB 2023-09-09 01:28:00 Danie Ontiveros U [facility] CT LUMBAR SPINE WO CONTRAST 2023-09-09 01:02:05 Danie Ontiveros [facility] CONSENT/REFUSAL FOR DIAGNOSIS AND TREATMENT 2023-09-09 00:05:52 Doctor Unassigned, [place] [facility] POCT TEST 2023-09-07 13:28:00 Juli Srivastava ra [facility] URINALYSIS 2023-09-07 13:27:00 Chayo Srivastava Un [facility] CONSENT/REFUSAL FOR DIAGNOSIS AND TREATMENT 2023-09-07 12:42:21 Doctor Unassigned, [place] [facility] COMP. METABOLIC PANEL ([id number]) 2023-09-04 02:29:00 Selene Parra [facility] CBC WITH DIFF 2023-09-04 02:29:00 Selene Parra Uni [facility] RAPID INFLUENZA A/B 2023-09-04 02:26:00 Selene Parra [facility] COVID-19 (ID NOW RAPID TESTING) 2023-09-04 02:26:00 Selene Parra [facility] ASSIGNMENT OF BENEFITS 2023-09-04 02:07:25 Docto r Unassigned, [place] [facility] CONSENT/REFUSAL FOR DIAGNOSIS AND TREATMENT 2023-09-04 00:46:16 Doctor Unassigned, [place] [facility] CONSENT/REFUSAL FOR DIAGNOSIS AND TREATMENT 2023-08-04 03:55:32 Doctor Unassigned, [place] [facility] URINALYSIS 2023-07-26 08:52:00 Memo Resendiz [facility] URINALYSIS 2023-07-26 08:20:00 Memo Resendiz [facility] ASSIGNMENT OF BENEFITS 2023-07-26 08:05:43 Docto r Unassigned, [place] [facility] CONSENT/REFUSAL FOR DIAGNOSIS AND TREATMENT 2023-07-26 07:33:52 Doctor Unassigned, [place] [facility] RAPID STREP SCREEN FOR GROUP A 2023-07-25 13:40:00 Danii Arriaga [facility] RAPID INFLUENZA A/B 2023-07-25 13:40:00 Minal Arriaga [facility] COVID-19 (ID NOW RAPID TESTING) 2023-07-25 13:40:00 Danii Arriaga [facility] XR CHEST 2 VW 2023-07-25 13:26:06 Danii Arriaga [facility] ASSIGNMENT OF BENEFITS 2023-07-25 13:17:29 Docto r Unassigned, [place] [facility] CONSENT/REFUSAL FOR DIAGNOSIS AND TREATMENT 2023-07-25 12:29:51 Doctor Unassigned, [place] [facility] XR CHEST 2 VW 2023-07-12 13:13:00 Doni Marie [facility] POCT TEST 2023-07-12 12:56:00 Ryan Marie [facility] CONSENT/REFUSAL FOR DIAGNOSIS AND TREATMENT 2023-07-12 12:27:58 Doctor Unassigned, [place] [facility] [id number] Colposcopy Cervix Uppr/adjcnt Vagina W/cervix Bx 2023-06-26 00:00:00 Darryl Waggoner [id number] Endometrial Bx W/wo Endocervix Bx W/o Dilat Spx 2023-06-26 00:00:00 Darryl Waggoner CONSENT/REFUSAL FOR DIAGNOSIS AND TREATMENT 2023-06-24 10:15:34 Doctor Unassigned, [place] [facility] RAPID INFLUENZA A/B 2023-06-18 05:03:00 Michelle Terry [facility] RAPID RSV 2023-06-18 05:03:00 Michelle Terry [facility] COVID-19 (ID NOW RAPID TESTING) 2023-06-18 05:03:00 Michelle Terry [facility] CONSENT/REFUSAL FOR DIAGNOSIS AND TREATMENT 2023-06-18 04:46:39 Doctor Unassigned, [place] [facility] US OVARY TORSION 2023-06-12 08:14:06 [facility] 2023-06-12 05:07:00 Raven Lieberman [facility] COMP. METABOLIC PANEL ([id number]) 2023-06-12 05:02:00 Raven Lieberman [facility] CBC WITH DIFF 2023-06-12 05:02:00 [facility] URINALYSIS 2023-06-12 05:02:00 Raven Lieberman [facility] NOTICE OF PRIVACY PRACTICES 2023-06-12 04:10:01 Doctor Unassigned, [place] [facility] CONSENT/REFUSAL FOR DIAGNOSIS AND TREATMENT 2023-06-12 04:06:29 Doctor Unassigned, [place] [facility] CT ABDOMEN PELVIS W CONTRAST 2023-05-28 07:44:47 Raven Lieberman [facility] POCT TEST 2023-05-28 06:40:00 Raven Lieberman [facility] COMP. METABOLIC PANEL ([id number]) 2023-05-28 06:34:00 Raven Lieberman [facility] CBC WITH DIFF 2023-05-28 06:34:00 Raven [facility]ber[facility] URINALYSIS 2023-05-28 06:34:00 Raven Lieberman [facility] CONSENT/REFUSAL FOR DIAGNOSIS AND TREATMENT 2023-05-28 05:25:17 Doctor Unassigned, [place] [facility] [address] Removal Impacted Cerumen Using Irrigation/lavage, Unilateral 2023-04-30 00:00:00 Darryl Waggoner ASSIGNMENT OF BENEFITS 2023-03-07 04:54:51 Docto r Unassigned, [place] [facility] RAPID STREP SCREEN FOR GROUP A 2023-03-07 03:52:00 Hermilo Ricks [facility] CONSENT/REFUSAL FOR DIAGNOSIS AND TREATMENT 2023-03-07 02:58:48 Doctor Unassigned, [place] [facility] BASIC METABOLIC PANEL (NA, K, CL, CO2, GLUCOSE, BUN, CREATININE, CA) 2023-02-02 06:41:00 Selene Parra [facility] CBC WITH DIFF 2023-02-02 06:41:00 Selene Parra Uni [facility] POCT TEST 2023-02-02 06:17:00 Selene Parra [facility] NOTICE OF PRIVACY PRACTICES 2023-02-02 06:00:34 Doctor Unassigned, [place] [facility] CONSENT/REFUSAL FOR DIAGNOSIS AND TREATMENT 2023-02-02 05:59:54 Doctor Unassigned, [place] [facility] CT ABDOMEN PELVIS W CONTRAST 2022-10-24 20:00:18 Suraj Scott [facility] US OVARY TORSION 2022-10-24 19:43:53 Suraj Scott [facility] LIPASE 2022-10-24 18:58:00 Suraj Scott [facility] COMP. METABOLIC PANEL ([id number]) 2022-10-24 18:58:00 Suraj Scott [facility] CBC WITH DIFF 2022-10-24 18:58:00 Suraj Soctt [facility]INAL[facility] 2022-10-24 18:58:00 Suraj Scott [facility] POCT TEST 2022-10-24 18:58:00 Odessa Scott [facility] CBC WITH DIFF 2022-07-21 13:07:00 Hermilo Ricks [facility] POCT TEST 2022-07-21 12:55:00 Jeanine Ricks [facility] URINALYSIS 2022-07-21 12:52:00 [facility] CONSENT/REFUSAL FOR DIAGNOSIS AND TREATMENT 2022-07-21 12:44:40 Doctor Unassigned, [place] [facility] CT ABDOMEN PELVIS W CONTRAST 2022-05-19 21:32:53 Cat Rutledge [facility] LIPASE 2022-05-19 20:49:00 [facility] COMP. METABOLIC PANEL ([id number]) 2022-05-19 20:49:00 Cat Rutledge [facility] CBC WITH DIFF 2022-05-19 20:49:00 Cat Rutledge [facility] URINALYSIS 2022-05-19 20:49:00 Cat Rutledge [facility] POCT TEST 2022-05-19 20:49:00 Paxton Rutledge [facility] URINE DRUG (IMMUNOASSAY) - COMPREHENSIVE DRUG SCREEN W/O REFLEX 2022-05-19 20:49:00 Cat Rutledge [facility] CONSENT/REFUSAL FOR DIAGNOSIS AND TREATMENT 2022-05-19 20:16:10 Doctor Unassigned, [place] [facility] POCT TEST 2022-05-13 07:37:00 Selene Parra [facility] LIPASE 2022-05-13 07:32:00 Selene Parra [facility] COMP. METABOLIC PANEL ([id number]) 2022-05-13 07:32:00 Selene Parra [facility] CBC WITH DIFF 2022-05-13 07:32:00 Selene Parra [facility] URINALYSIS 2022-05-13 07:32:00 Selene Parra [facility] CONSENT/REFUSAL FOR DIAGNOSIS AND TREATMENT 2022-05-13 06:55:55 Doctor Unassigned, [place] [facility] XR ANKLE <3 VW RIGHT 2022-04-01 22:28:50 Deny Rg [facility] URINALYSIS 2022-04-01 22:21:00 Christy Rg [facility] POCT TEST 2022-04-01 22:19:00 Christy Rg [facility] CONSENT/REFUSAL FOR DIAGNOSIS AND TREATMENT 2022-04-01 21:40:47 Doctor Unassigned, [place] [facility] POCT TEST 2021-10-25 19:54:00 Lisa Tran [facility] URINALYSIS 2021-10-25 19:53:00 Lisa Tran [facility] CONSENT/REFUSAL FOR DIAGNOSIS AND TREATMENT 2021-10-25 19:34:46 Doctor Unassigned, [place] [facility] NOTICE OF PRIVACY PRACTICES 2021-10-25 19:34:06 Doctor Unassigned, [place] [facility] Plan of Care Planned Activity Planned Date Details Comments Source Goal Plan of Care Note [code = 29995-5] Goal Plan of Care Note [code = 05600-8] Goal Plan of Care Note [code = 04035-1] Goal Plan of Care Note [code = 20055-5] Goal Plan of Care Note [code = 22576-5] Goal Plan of Care Note [code = 14546-4] Goal Plan of Care Note [code = 73181-4] Goal Plan of Care Note [code = 63471-1] Goal Plan of Care Note [code = 61231-4] Goal Plan of Care Note [code = 65086-0] Goal Plan of Care Note [code = 52378-9] Goal Plan of Care Note [code = 11923-9] Goal Plan of Care Note [code = 02656-8] Goal Plan of Care Note [code = 89326-4] Goal Plan of Care Note [code = 04327-6] Goal Plan of Care Note [code = 67621-8] Goal Plan of Care Note [code = 12633-1] Goal Plan of Care Note [code = 35072-1] Goal Plan of Care Note [code = 54570-4] Goal Plan of Care Note [code = 92579-8] Goal Plan of Care Note [code = 83169-4] Goal Plan of Care Note [code = 20158-4] Goal Plan of Care Note [code = 52637-1] Goal Plan of Care Note [code = 85439-8] Goal Plan of Care Note [code = 18468-0] Encounters Start Date/Time End Date/Time Encounter Type Admission Type Attending Clinicians Care Facility Care Department Encounter ID Source 2024-12-12 11:22:49 2024-12-12 11:22:49 Outpatient [facility] [id number] Darryl Waggoner 2024-11-28 09:13:53 2024-11-28 09:13:53 Outpatient [facility] [id number] Darryl Waggoner 2024-11-28 00:00:00 2024-11-28 00:00:00 Outpatient Visit [facility] [id number] Darryl Waggoner 2024-11-27 09:21:53 2024-11-27 09:21:53 Outpatient [facility] [id number] Darryl Waggoner 2024-11-27 00:00:00 2024-11-27 00:00:00 Outpatient Visit [facility] [id number] Darryl Ackerman Edilson 2024-11-18 21:05:00 2024-11-18 22:48:00 Emergency X SELENE PARRA WAKILI [facility] ERT [id number] [facility] 2024-11-18 21:05:00 2024-11-18 22:48:00 Emergency Selene Parra [facility] 1.2.840.114 350.1.13.10 4.2.7.2.686 [id number] [facility] 2024-11-08 22:41:00 2024-11-09 00:01:00 Emergency X CHRISTY RG PAMALA [facility] ERT [id number] [facility] 2024-11-08 22:41:00 2024-11-09 00:01:00 Emergency Christy Rg [facility] 1.2.840.114 350.1.13.10 4.2.7.2.686 [id number] [facility] 2024-10-22 09:57:20 2024-10-22 09:57:20 Outpatient [facility] [id number] Darryl Waggoner 2024-10-22 00:00:00 2024-10-22 00:00:00 Outpatient Visit [facility] [id number] Darryl Waggoner 2024-08-25 14:31:29 2024-08-25 14:31:29 Outpatient S[facility] [id number] Darryl Waggoner 2024-08-25 00:00:00 2024-08-25 00:00:00 Outpatient Visit [facility] [id number] Darryl Waggoner 2024-07-25 07:55:00 2024-07-25 10:46:00 Emergency X DONI MARIE DONNELL [facility] ERT [id number] [facility] 2024-07-25 07:55:00 2024-07-25 10:46:00 Emergency Doni Marie [facility] AT [facility] 1.2.840.114 350.1.13.10 4.2.7.2.686 [id number] [facility] 2024-07-09 15:24:23 2024-07-09 15:24:23 Outpatient S[facility] [id number] Darryl Waggoner 2024-07-09 00:00:00 2024-07-09 00:00:00 Outpatient Visit [facility] [id number] Darryl Waggoner 2024-07-04 02:23:00 2024-07-04 06:07:00 Emergency X SELENE PARRA WAKILI [facility] ERT [id number] [facility] 2024-07-04 02:23:00 2024-07-04 06:07:00 Emergency Selene Parra [facility] .2.840.114 350.1.13.10 4.2.7.2.686 [id number] [facility] 2024-03-18 13:39:14 2024-03-18 13:39:14 Outpatient [facility] [id number] Darryl Waggoner 2024-03-18 00:00:00 2024-03-18 00:00:00 Outpatient Visit [facility] [id number] Darryl Waggoner 2024-03-12 02:06:00 2024-03-12 06:07:00 Emergency X SELENE PARRA [facility] ERT [id number] [facility] 2024-03-12 02:06:00 2024-03-12 06:07:00 Emergency Selene Parra [facility] 1.2.840.114 350.1.13.10 4.2.7.2.686 [id number] [facility] 2024-03-06 11:34:36 2024-03-06 11:34:36 Outpatient S[facility] [id number] Darryl Waggoner 2024-03-06 00:00:00 2024-03-06 00:00:00 Outpatient Visit [facility] [id number] Darryl Waggoner 2024-02-03 03:57:00 2024-02-03 07:11:00 Emergency Selene Parra [facility] 1.2.840.114 350.1.13.10 4.2.7.2.686 [id number] [facility] 2024-01-01 22:28:00 2024-01-02 00:44:00 Emergency X NIECY DONI DOWELL [facility] ERT [id number] [facility] 2024-01-01 22:28:00 2024-01-02 00:44:00 Emergency Doni Marie [facility] 1.2.840.114 350.1.13.10 4.2.7.2.686 [id number] [facility] 2023-12-31 15:24:49 2023-12-31 15:24:49 Outpatient [facility] [id number] Darryl Waggoner 2023-12-26 03:53:00 2023-12-26 05:24:00 Emergency X SELENE PARRA [facility] E[facility] [id number] [facility] 2023-12-26 03:53:00 2023-12-26 05:24:00 Emergency Selene Parra [facility] 1.2.840.114 350.1.13.10 4.2.7.2.686 [id number] [facility] 2023-12-17 08:09:17 2023-12-17 08:09:17 Outpatient [facility] [id number] Darryl Waggoner 2023-11-20 06:45:00 2023-11-20 10:52:00 Emergency X DONI MARIE [facility] ERT [id number] [facility] 2023-11-20 06:45:00 2023-11-20 10:52:00 Emergency Doni Marie [facility] 1.2.840.114 350.1.13.10 4.2.7.2.686 [id number] [facility] 2023-11-14 13:08:33 2023-11-14 13:08:33 Outpatient SFA [facility] [id number] Darryl Waggoner 2023-11-12 00:13:00 2023-11-12 01:10:00 Emergency X CHAYO SRIVASTAVA [facility] ERT [id number] [facility] 2023-11-12 00:13:00 2023-11-12 01:10:00 Emergency Bong Chayo J [facility] 1.2.840.114 350.1.13.10 4.2.7.2.686 [id number] [facility] 2023-10-27 20:33:00 2023-10-27 20:58:00 Emergency X Kavita OJEDA [facility] ERT [id number] [facility] 2023-10-27 20:33:00 2023-10-27 20:58:00 Emergency Kavita Ojeda [facility] 1.2.840.114 350.1.13.10 4.2.7.2.686 [id number] [facility] 2023-09-17 09:14:32 2023-09-17 09:14:32 Outpatient S[facility] [id number] Darryl Waggoner 2023-09-08 18:32:00 2023-09-08 21:46:00 Emergency X CHRISTY RG [facility] ERT [id number] [facility] 2023-09-08 18:32:00 2023-09-08 21:46:00 Emergency KrishadeleDanie bhatia yTron Christy Rg [facility] 1.2.840.114 350.1.13.10 4.2.7.2.686 [id number] [facility] 2023-09-07 06:47:00 2023-09-07 08:22:00 Emergency X CHAYO SRIVASTAVA [facility] ERT [id number] [facility] 2023-09-07 06:47:00 2023-09-07 08:22:00 Emergency Chayo Srivastava Chris [facility] 1.2.840.114 350.1.13.10 4.2.7.2.686 [id number] [facility] 2023-09-03 18:57:00 2023-09-03 22:03:00 Emergency X SELENE PARRA [facility] ERT [id number] [facility] 2023-09-03 18:57:00 2023-09-03 22:03:00 Emergency Selene Parra [facility] 1.2.840.114 350.1.13.10 [id number] [id number] [facility] 2023-08-28 16:44:07 2023-08-28 16:44:07 Outpatient [facility] [id number] Darryl Waggoner 2023-08-03 23:07:00 2023-08-04 01:08:00 Emergency X Kavita OJEDA [facility] ERT [id number] [facility] 2023-08-03 23:07:00 2023-08-04 01:08:00 Emergency Kavita Ojeda [facility] 1.2.840.114 350.1.13.10 [id number] [id number] [facility] 2023-07-26 02:41:00 2023-07-26 04:25:00 Emergency X MAUREEN MEMO [facility] ERT [id number] [facility] 2023-07-26 02:41:00 2023-07-26 04:25:00 Emergency Vasut, Memo [facility] [facility] 1..840.114 350.1.13.10 4.2.7.2.686 [id number] [id number] [facility] 2023-07-25 07:36:00 2023-07-25 10:13:00 Emergency X DANII ARRIAGA [facility] ERT [id number] [facility] 2023-07-25 07:36:00 2023-07-25 10:13:00 Emergency Luis Eduardo Danii eLdbetter [facility] 1.2.840.114 350.1.13.10 4.2.7.2.686 [id number] [facility] 2023-07-24 08:14:55 2023-07-24 08:14:55 Outpatient [facility] [id number] Darryl Waggoner 2023-07-12 07:35:00 2023-07-12 09:00:00 Emergency X DONI MARIE [facility] ERT [id number] [facility] 2023-07-12 07:35:00 2023-07-12 09:00:00 Emergency Doni Marie [facility] 1.2.840.114 350.1.13.10 4.2.7.2.686 [id number] [facility] 2023-07-02 13:54:28 2023-07-02 13:54:28 Outpatient [facility] 0918 Darryl Waggoner 2023-06-26 13:20:40 2023-06-26 13:20:40 Outpatient [facility] 09 Darryl Waggoner 2023-06-24 05:33:00 2023-06-24 06:50:00 Emergency X SELENE PARRA [facility] ERT [id number] [facility] 2023-06-24 05:33:00 2023-06-24 06:50:00 Emergency Selene Parra [facility] 1.2.840.114 350.1.13.10 4.2.7.2.686 [id number] [id number] [facility] 2023-06-20 16:08:31 2023-06-20 16:08:31 Outpatient [facility] [id number] Darryl Waggoner 2023-06-17 23:54:00 2023-06-18 01:35:00 Emergency MICHELLE SMITH [facility] ERT [id number] [facility] 2023-06-17 23:54:00 2023-06-18 01:35:00 Emergency Michelle Terry Lee [facility] 1.2.840.114 350.1.13.10 4.2.7.2.686 [id number] 084 [id number] [facility] 2023-06-16 10:56:55 2023-06-16 10:56:55 Outpatient [facility] 901 Darryl Waggoner 2023-06-14 13:35:05 2023-06-14 13:35:05 Outpatient [facility] 0831 Darryl Waggoner 2023-06-12 11:11:07 2023-06-12 11:11:07 Outpatient [facility] 29 Darryl Waggoner 2023-06-11 23:25:00 2023-06-12 04:49:00 Emergency X RAVEN LIEBERMAN [facility] ERT [id number] [facility] 2023-06-11 23:25:00 2023-06-12 04:49:00 Emergency Raven Lieberman [facility] 1.2.840.114 350.1.13.10 4.2.7.2.686 [id number] [id number] [facility] 2023-06-05 11:34:51 2023-06-05 11:34:51 Outpatient [facility] [id number] 0822 Darryl Waggoner 2023-05-28 08:05:43 2023-05-28 08:05:43 Outpatient [facility] [id number] 0814 Darryl Waggoner 2023-05-28 00:40:00 2023-05-28 04:06:00 Emergency X RAVEN LIEBERMAN [facility] ERT [id number] [facility] 2023-05-28 00:40:00 2023-05-28 04:06:00 Emergency Raven Lieberman [facility] 1.2.840.114 350.1.13.10 4.2.7.2.686 [id number] [id number] [facility] 2023-05-28 00:00:00 2023-05-28 00:00:00 Orders Only Doctor Unassigned, [place] [facility] 1.2.840.114 350.1.13.10 4.2.7.2.686 [id number] [facility] 2023-04-30 13:49:49 2023-04-30 13:49:49 Outpatient [facility] [id number] Darryl Waggoner 2023-04-23 08:52:34 2023-04-23 08:52:34 Outpatient [facility] [id number] 0710 Darryl Waggoner 2023-03-06 22:52:00 2023-03-07 00:12:00 Emergency X HERMILO RICKS [facility] ERT [id number] [facility] 2023-03-06 22:52:00 2023-03-07 00:12:00 Emergency Hermilo Ricks [facility] 1.2.840.114 350.1.13.10 4.2.7.2.686 [id number] [id number] [facility] 2023-02-02 01:06:00 2023-02-02 02:49:00 Emergency X SELENE PARRA [facility] ERT [id number] [facility] 2023-02-02 01:06:00 2023-02-02 02:49:00 Emergency Krysten Parraenrique Mcrae [facility] 1.2.840.114 350.1.13.10 4.2.7.2.686 [id number] [id number] [facility] 2023-02-02 00:00:00 2023-02-02 00:00:00 Orders Only Doctor Unassigned, [place] [facility] 1.2.840.114 350.1.13.10 4.2.7.2.686 [id number] [id number] [facility] 2022-10-24 12:04:00 2022-10-24 15:45:00 Emergency X SURAJ SCOTT [facility] ERT [id number] [facility] 2022-10-24 12:04:00 2022-10-24 15:45:00 Emergency Suraj Scott A [facility] 1.2.840.114 350.1.13.10 4.2.7.2.686 [id number] [id number] [facility] 2022-09-25 10:04:19 2022-09-25 10:04:19 Outpatient [facility] [id number] Darryl Waggoner 2022-09-25 00:00:00 2022-09-25 00:00:00 Outpatient Visit [id number] 2022-07-21 07:49:00 2022-07-21 08:56:00 Emergency X HERMILO RICKS [facility] ERT [id number] [facility] 2022-07-21 07:49:00 2022-07-21 08:56:00 Emergency Hermilo Ricks [facility] 1.2.840.114 350.1.13.10 4.2.7.2.686 [id number] [id number] [facility] 2022-05-19 15:38:00 2022-05-19 17:24:00 Emergency X AAMIR CAT [facility] ERT [id number] [facility] 2022-05-19 15:38:00 2022-05-19 17:24:00 Emergency Aamir [facility] 1..840.114 350.1.13.10 4.2.7.2.686 [id number] [id number] [facility] 2022-05-19 00:00:00 2022-05-19 00:00:00 Outpatient Visit [id number] 2022-05-13 02:08:00 2022-05-13 04:24:00 Emergency Selene Parra [facility] 1..840.114 350.1.13.10 4.2.7.2.686 [id number] [id number] [facility] 2022-05-13 02:08:00 2022-05-13 04:24:00 Emergency X SELENE PARRA [facility] ERT [id number] [facility] 2022-04-01 16:48:00 2022-04-01 18:39:00 Emergency X CHRISTY RG [facility] ERT [id number] [facility] 2022-04-01 16:48:00 2022-04-01 18:39:00 Emergency Christy Rg [facility] 1.2.840.114 350.1.13.10 4.2.7.2.686 [id number] [id number] [facility] 2022-04-01 00:00:00 2022-04-01 00:00:00 Orders Only Doctor Unassigned, [place] [facility] 1.2.840.114 350.1.13.10 4.2.7.2.686 [id number] [facility] 2021-10-25 13:44:00 2021-10-25 15:25:00 Emergency X LISA TRAN [facility] ERT [id number] [facility] 2021-10-25 13:44:00 2021-10-25 15:25:00 Emergency Lisa Tran [facility] 1.2.840.114 350.1.13.10 4.2.7.2.686 [id number] [id number] [facility] 2021-10-25 00:00:00 2021-10-25 00:00:00 Orders Only Doctor Unassigned, [place] [facility] 1.2.840.114 350.1.13.10 4.2.7.2.686 [id number] [facility] 2021-05-03 17:49:00 2021-05-04 02:46:00 Emergency [facility] [id number] [facility] 2021-04-16 21:16:42 2021-04-22 13:04:00 Inpatient CL [facility] [id number] [facility] 2021-04-08 17:04:00 2021-04-08 17:04:00 Emergency X GOLDROCHELLE [facility] ERT [id number] [facility] 2021-04-08 02:42:00 2021-04-08 02:42:00 Emergency X LISA TRAN [facility] ERT [id number] [facility] 2021-03-24 18:36:00 2021-03-24 18:36:00 Emergency X [facility] ERT [id number] [facility] Results Test Description Test Time Test Comments [...] [facility] [id number] 09:44:53Examination: Computed tomography of the abdomen and [...] show no suspicious lytic or blastic bony lesion.[facility] [id number] 07:36:00 * Test Item Value Reference Range Interpretation Comme nts POCT PREG (test code = 1605) Negative On board controls acceptable with C Line (test code = 3574) Yes POCT PREG LOT # (test code = 3575) [id number] POCT PREG TEST DATE ( test code = 3576) 07/24/2025 Lab Interpretation (test cod e = 51383-2) Normal [facility] W [id number] 10:12:02Examination: Computed tomography of the abdomen and [...] show no suspicious lytic or blastic bony lesion.[facility]. Metabolic Panel (93645)2024-03-12 09:27:38* Test Item Value Reference Range Interpretation Comme nts NA (test code = 7023722628) 137 mmol/L 135-145 K (test code = 0487886180) 3.8 mmol/L 3.5-5.0 CL (test code = 4913420819) 107 mmol/L 98-108 CO2 TOTAL (test code = 3021509546) 20 mmol/L 23-31 L AGAP (test code = 5317450464) 10 2-16 BUN (test code = 4018855129) 6 mg/dL 7-23 L GLUCOSE (test code = 2637065772) 94 mg/dL 70-110 CREATININE (test code = 2160-0) 0.83 mg/dL 0.50-1.04 TOTAL BILI (test code = 5098462653) 0.4 mg/dL 0.1-1.1 CALCIUM (test code = 3474679366) 9.2 mg/dL 8.6-10.6 T PROTEIN (test code = 6034849323) 7.6 g/dL 6.3-8.2 ALBUMIN (test code = 5459618172) 4.2 g/dL 3.5-5.0 ALK PHOS (test code = 5634820227) 73 U/L 34-122 ALTv (test code = 1742-6) 18 U/L 5-35 AST(SGOT) (test code = 5431617485) 24 U/L 13-40 eGFR (test code = 24391-3) 96.2 mL/min/1.73m2 CKD-EPI eGFR (2020). Assuming creatinine has been stable day-to-day for at least three months, the eGFR indicates Category G1 (>= 90 mL/min/1.73 m2) Lab Interpretation (test code = 48060-6) Abnormal [facility] 09:26:57* Test Item Value Reference Range Interpretation Comme nts LIPASE (test code = 0518134906) 108 U/L 0-220 Lab Interpretation (test cod e = 39650-6) Normal [facility] CenterCb with [id number] 09:13:56* Test Item Value Reference Range Interpretation [...] g/dL 31.6-35.1 L RDW-SD (test code = 40908-5) 42.4 fL 39.0-49.9 RDW-CV (test code = 788-0) 15.7 % 12.0-15.5 H PLT (test code = 777-3) 346 166-358 MPV (test code = 64405-1) 9.8 fL 9.5-12.9 NRBC/100 WBC (test code = 4239228225) 0.0 0.0-10.0 NRBC x10^3 (test code = 0427622962) See_Comment [Automated messa ge] The system which generated this result transmitted reference range: 10*3/?L. The reference range was not used to interpret this result as normal/abnormal. GRAN MAT (NEUT) % (test code = 770-8) 43.3 % IMM GRAN % (test code = 7128778755) 0.30 % LYMPH % (test code = 736-9) 42.6 % MONO % (test code = 5905-5) 7.5 % EOS % (test code = 713-8) 5.5 % BASO % (test code = 706-2) 0.8 % GRAN MAT x10^3(ANC) (test code = 2634072462) 3.21 10*3/uL 1.88-7.09 IMM GRAN x10^3 (test code = 6284192323) 0.00-0.06 LYMPH x10^3 (test code = 731-0) 3.16 10*3/uL 1.32-3.29 MONO x10^3 (test code = 742-7) 0.56 10*3/uL 0.33-0.92 EOS x10^3 (test code = 711-2) 0.41 10*3/uL 0.03-0.39 H BASO x10^3 (test code = 704-7) 0.06 10*3/uL 0.01-0.07 Lab Interpretation (test code = 88199-7) Abnormal [facility] CenterEBV-Mononucleosis [id number] 11:45:15* Test Item Value Reference Range Interpretation Comme nts EBV Mononucleosis Screen (te st code = 8093128964) Negative Negative Lab Interpretation (test cod e = 31733-6) Normal [facility] ABDOMEN PELVIS W [id number] 10:26:21ORDERING PHYSICIAN: SELENE PARRA CLINICAL HISTORY: Abdominal [...] the pelvis. Appendixis normal. The bones are unremarkable.[facility] CenterPONC Mybr2094-32-56 09:09:00* Test Item Value Reference Range Interpretation [facility] PO[facility] PREG (test code = 1605) Negative On board controls acceptable with C Line (test code = 3574) Yes POCT PREG LOT # (test code = 3575) [id number] POCT PREG TEST DATE ( test code = 3576) 11/21/2024 Lab Interpretation (test cod e = 88404-5) Normal [facility] [id number] 09:50:51* Test Item Value Reference Range Interpretation Comme [facility] DIAGNOSIS: (test code = 8200) (NOTE) A) Conization (L EEP) - EctocervixHigh grade squamous intraepithelial lesion (CIN2), extendingfocally to endocervical and ectocervical/stromal margins. B) Conization (LEEP) - EndocervixFocal high grade squamous intraepithelial lesion (CIN2).Surgical margins negative for dysplasia. COMMENTS: (test code = 8205) (NOTE) The previously r eported abnormal Pap (accession # [id number]) isreviewed. The biopsy material more clearly displays [...] TanNUMBER OF TISSUE PIECES: 2SUBMITTED IN CASSETTE(S): [id number]: FormalinCOMMENTS:Consists of a 1.9x1.1x0.5 cm irregularly shaped [...] TanNUMBER OF TISSUE PIECES: 1SUBMITTED IN CASSETTE(S): [id number]: FormalinCOMMENTS:[place] shaped rubbery tissue fragment partially surfaced bytan-white ectocervix. Os is inked blue by clinician. Endocervicalmargin inked blue. All remaining margins inked orange. Radiallysectioned x 9 and entirely submitted. Specimen fell apart uponsectioning. PATHOLOGIST: (test code = 8250) (NOTE) Heide Shipley MD, Board-certified Anatomic and ClinicalPathology, Hematopathology Specimens processed and interpreted at [facility], [address] [place] [address], , CLIA: [id number] CPT: (test code = 8400) (NOTE) 77145o1 UNLESS O THERWISE INDICATED, ALL TESTING PERFORMED AT [facility] [address] [place] [address] IMAGING NURSE: ANIBAL PAREDES M.D. CLIA NUMBER [id number] [facility]. [id number] SURGICAL PATHOLOGY [id number] 00:00:00* Test Item Value Reference Range Interpretation [...] = PDFReport) PDF [facility] [id number] 00:00:00* Test Item Value Reference Range Interpretation [...] = PDFReport) PDF [facility] [id number] 00:00:00* Test Item Value Reference Range Interpretation [...] = PDFReport) PDF Darryl Ackerman [facility] [id number] 00:00:00* Test Item Value Reference Range Interpretation Comme nts DIAGNOSIS: (test code = 8200) (NOTE) COMMENTS: (test code = 8205) (NOTE) MICROSCOPIC DESCRIPTION: (te st code = 8210) (NOTE) CLINICAL DATA: (test code = 8401) (NOTE) GROSS DESCRIPTION: (test code = 8220) (NOTE) PATHOLOGIST: (test code = 8250) (NOTE) CPT: (test code = 8400) (NOTE) PDFE (test code = PDFReport) PDF Darryl Ackerman [facility] [id number] 00:00:00* Test Item Value Reference Range Interpretation [...] = PDFReport) PDF Darryl Ackerman [facility] [id number] 00:00:00* Test Item Value Reference Range Interpretation [...] = PDFReport) PDF Darryl Ackerman [facility] [id number] 00:00:00* Test Item Value Reference Range Interpretation [...] code = PDFReport) PDF Darryl Chang OVARY [id number] 16:27:21EXAM: US OVARY TORSION HISTORY: 32 years [...] None Cul-de-sac: Trace volume free fluid is present.[facility]BDOM[facility] PEL[facility] W [id number] 15:15:04EXAM: CT ABDOMEN PELVIS W CONTRAST HISTORY: [...] No suspicious lytic or sclerotic bony lesions arepresent.[facility]. METABOLIC PANEL (06298)2023-11-20 14:09:45* Test Item Value Reference Range Interpretation Comme nts NA (test code = 1312150453) 135 mmol/L 135-145 K (test code = 1410744448) 4.1 mmol/L 3.5-5.0 CL (test code = 8838625916) 112 mmol/L 98-108 H CO2 TOTAL (test code = 3845520203) 17 mmol/L 23-31 L AGAP (test code = 3276536072) 6 2-16 BUN (test code = 1206220942) 10 mg/dL 7-23 GLUCOSE (test code = 0840000785) 95 mg/dL 70-110 CREATININE (test code = 8798126801) 0.72 mg/dL 0.50-1.04 TOTAL BILI (test code = 0522555045) 0.2 mg/dL 0.1-1.1 CALCIUM (test code = 8681387022) 9.0 mg/dL 8.6-10.6 T PROTEIN (test code = 8362710092) 7.6 g/dL 6.3-8.2 ALBUMIN (test code = 0008061249) 4.3 g/dL 3.5-5.0 ALK PHOS (test code = 6822125280) 81 U/L 34-122 ALTv (test code = 1742-6) 23 U/L 5-35 AST(SGOT) (test code = 1127754423) 26 U/L 13-40 eGFR (test code = 57149-7) 114.8 mL/min/1.73m2 CKD-EPI eGFR (2020). Assuming creatinine has been stable day-to-day for at least three months, the eGFR indicates Category G1 (>= 90 mL/min/1.73 m2) Lab Interpretation (test code = 01207-7) Abnormal [facility] WITH [id number] 13:53:43* Test Item Value Reference Range Interpretation [...] g/dL 31.6-35.1 L RDW-SD (test code = 39777-6) 42.6 fL 39.0-49.9 RDW-CV (test code = 788-0) 15.5 % 12.0-15.5 PLT (test code = 777-3) 364 166-358 H MPV (test code = 13366-4) 10.0 fL 9.5-12.9 NRBC/100 WBC (test code = 0151615255) 0.0 0.0-10.0 NRBC x10^3 (test code = 4253188824) See_Comment [Automated messa ge] The system which generated this result transmitted reference range: 10*3/?L. The reference range was not used to interpret this result as normal/abnormal. GRAN MAT (NEUT) % (test code = 770-8) 59.8 % IMM GRAN % (test code = 9048257853) 0.30 % LYMPH % (test code = 736-9) 27.8 % MONO % (test code = 5905-5) 9.2 % EOS % (test code = 713-8) 2.1 % BASO % (test code = 706-2) 0.8 % GRAN MAT x10^3(ANC) (test code = 3635609144) 3.70 10*3/uL 1.88-7.09 IMM GRAN x10^3 (test code = 1212530276) 0.00-0.06 LYMPH x10^3 (test code = 731-0) 1.72 10*3/uL 1.32-3.29 MONO x10^3 (test code = 742-7) 0.57 10*3/uL 0.33-0.92 EOS x10^3 (test code = 711-2) 0.13 10*3/uL 0.03-0.39 BASO x10^3 (test code = 704-7) 0.05 10*3/uL 0.01-0.07 Lab Interpretation (test code = 41459-8) Abnormal [facility] [id number] 13:26:00* Test Item Value Reference Range Interpretation Comme nts POCT PREG (test code = 1605) Negative On board controls acceptable with C Line (test code = 3574) Yes POCT PREG LOT # (test code = 3575) [id number] POCT PREG TEST DATE ( test code = 3576) 01/20/2025 Lab Interpretation (test cod e = 34211-4) Normal [facility] [id number] 13:28:00* Test Item Value Reference Range Interpretation Comme nts POCT PREG (test code = 1605) Negative On board controls acceptable with C Line (test code = 3574) Yes POCT PREG LOT # (test code = 3575) [id number] POCT PREG TEST DATE ( test code = 3576) 12/23/2024 Lab Interpretation (test cod e = 84987-1) Normal [facility], NAAT, [id number] 18:43:32* Test Item Value Reference Range Interpretation Comme nts CHLAMYDIA, NAAT, URINE (test code = 24542) NEGATIVE NEGATIVE Testing is perfo rmed with Lucie HARRY 6800/8800 systems usingreal-time polymerase chain reaction (PCR) method. A negative result does not exclude low level infection, specimensampling error, or collection error. GONORRHEA, NAAT, URINE (test code = 59331) NEGATIVE NEGATIVE Testing is perfo rmed with Lucie HARRY 6800/8800 systems usingreal-time polymerase chain reaction (PCR) method. A negative result does not exclude low level infection, specimensampling error, or collection error. UNLESS OTHERWISE INDICATED, ALL TESTING PERFORMED AT [facility] [address] [place] [address] IMAGING NURSE: ANIBAL PAREDES M.D. [place] NUMBER [id number] [facility] [place]. [id number] TRICHOMONAS, NAAT, [id number] 16:46:16* Test Item Value Reference Range Interpretation Comme nts TRICHOMONAS, NAAT, URINE (test code = 44292) NEGATIVE NEGATIVE Testing is perfo rmed with Lucie HARRY 6800/8800 method usingreal-time polymerase chain reaction (PCR) method. A negative result does not exclude low level infection, specimensampling error, or collection error. TRICHOMONAS, URINE, [id number] 00:00:00* Test Item Value Reference Range Interpretation Comme nts TRICHOMONAS, NAAT, URINE (te st code = 91249) NEGATIVE Darryl F AustinCT/NG, TMA, [id number] 00:00:00* Test Item Value Reference Range Interpretation Comme nts CHLAMYDIA, NAAT, URINE (test code = 38070) NEGATIVE GONORRHEA, NAAT, URINE (test code = 91485) NEGATIVE Darryl F AustinTRICHOMONAS, URINE, [id number] 00:00:00* Test Item Value Reference Range Interpretation Comme nts TRICHOMONAS, NAAT, URINE (te st code = 58580) NEGATIVE Darryl F AustinCT/NG, TMA, [id number] 00:00:00* Test Item Value Reference Range Interpretation Comme nts CHLAMYDIA, NAAT, URINE (test code = 30200) NEGATIVE GONORRHEA, NAAT, URINE (test code = 82022) NEGATIVE Darryl F AustinTRICHOMONAS, URINE, [id number] 00:00:00* Test Item Value Reference Range Interpretation Comme nts TRICHOMONAS, NAAT, URINE (te st code = 67828) NEGATIVE Darryl F AustinCT/NG, TMA, [id number] 00:00:00* Test Item Value Reference Range Interpretation Comme nts CHLAMYDIA, NAAT, URINE (test code = 74606) NEGATIVE GONORRHEA, NAAT, URINE (test code = 21422) NEGATIVE Darryl F AustinTRICHOMONAS, URINE, [id number] 00:00:00* Test Item Value Reference Range Interpretation Comme nts TRICHOMONAS, NAAT, URINE (te st code = 43515) NEGATIVE Darryl F AustinCT/NG, TMA, [id number] 00:00:00* Test Item Value Reference Range Interpretation Comme nts CHLAMYDIA, NAAT, URINE (test code = 91151) NEGATIVE GONORRHEA, NAAT, URINE (test code = 72459) NEGATIVE Darryl F AustinTRICHOMONAS, URINE, [id number] 00:00:00* Test Item Value Reference Range Interpretation Comme nts TRICHOMONAS, NAAT, URINE (te st code = 66332) NEGATIVE Darryl F AustinCT/NG, TMA, [id number] 00:00:00* Test Item Value Reference Range Interpretation Comme nts CHLAMYDIA, NAAT, URINE (test code = 00680) NEGATIVE GONORRHEA, NAAT, URINE (test code = 17118) NEGATIVE Darryl F AustinTRICHOMONAS, URINE, [id number] 00:00:00* Test Item Value Reference Range Interpretation Comme nts TRICHOMONAS, NAAT, URINE (te st code = 04844) NEGATIVE Darryl F AustinCT/NG, TMA, [id number] 00:00:00* Test Item Value Reference Range Interpretation Comme nts CHLAMYDIA, NAAT, URINE (test code = 95661) NEGATIVE GONORRHEA, NAAT, URINE (test code = 20216) NEGATIVE Darryl F AustinTRICHOMONAS, URINE, [id number] 00:00:00* Test Item Value Reference Range Interpretation Comme nts TRICHOMONAS, NAAT, URINE (te st code = 26222) NEGATIVE Darryl WaggonerCT/NG, TMA, [id number] 00:00:00* Test Item Value Reference Range Interpretation Comme nts CHLAMYDIA, NAAT, URINE (test code = 69470) NEGATIVE GONORRHEA, NAAT, URINE (test code = 37136) NEGATIVE Darryl WaggonerPOCT [id number] 12:56:00* Test Item Value Reference Range Interpretation Comme nts POCT PREG (test code = 1605) Negative On board controls acceptable with C Line (test code = 3574) Yes POCT PREG LOT # (test code = 3575) HCG [id number] POCT PREG TEST DATE (test code = 3576) 12/12/2024 Lab Interpretation (test cod e = 46941-2) [facility] [id number] 10:24:44* Test Item Value Reference Range Interpretation [...] TanNUMBER OF TISSUE PIECES: 1SUBMITTED IN CASSETTE(S): [id number]: FormalinCOMMENTS:Entirely submitted intact. F) SPECIMEN LABELED: Cervix 8:00SIZE/WEIGHT: 0.2x0.1x0.1 cm SPECIMEN COLOR: TanNUMBER OF TISSUE PIECES: 1SUBMITTED IN CASSETTE(S): [id number]: FormalinCOMMENTS:Entirely submitted intact. A) SPECIMEN LABELED: EndometriumSIZE/WEIGHT: 1.4x1.3x0.2 cm AggregateSPECIMEN COLOR: TanNUMBER OF TISSUE PIECES: multipleSUBMITTED IN CASSETTE(S): [id number]: FormalinCOMMENTS:Filtered and entirely submitted. B) SPECIMEN LABELED: EndocervixSIZE/WEIGHT: 1.7x1.5x0.3 cm AggregateSPECIMEN COLOR: TanNUMBER OF TISSUE PIECES: multipleSUBMITTED IN CASSETTE(S): [id number]: FormalinCOMMENTS:Filtered and entirely submitted. C) SPECIMEN LABELED: Cervix 1:00SIZE/WEIGHT: 0.4x0.3x0.1 cm SPECIMEN COLOR: TanNUMBER OF TISSUE PIECES: 1SUBMITTED IN CASSETTE(S): [id number]: FormalinCOMMENTS:Entirely submitted intact. D) SPECIMEN LABELED: Cervix 3:00SIZE/WEIGHT: 0.2x0.2x0.1 cm SPECIMEN COLOR: TanNUMBER OF TISSUE PIECES: 1SUBMITTED IN CASSETTE(S): [id number]: FormalinCOMMENTS:Entirely submitted intact. PATHOLOGIST: (test code = 8250) (NOTE) Gita Morocho, M.D., P h.D., Board Certified in Anatomic and ClinicalPathology, Cytopathology Specimens processed and interpreted at [facility], [address] [place] [address], , CLIA: [id number] CPT: (test code = 8400) (NOTE) [id number] UNLESS O THERWISE INDICATED, ALL TESTING PERFORMED AT [facility] [address] [place] [address] IMAGING NURSE: ANIBAL PAREDES M.D. CLIA NUMBER [id number] [facility]. [id number] SURGICAL PATHOLOGY [id number] 00:00:00* Test Item Value Reference Range Interpretation Comme nts DIAGNOSIS: (test code = 8200) (NOTE) MICROSCOPIC DESCRIPTION: (te st code = 8210) (NOTE) CLINICAL DATA: (test code = 8401) (NOTE) GROSS DESCRIPTION: (test code = 8220) (NOTE) PATHOLOGIST: (test code = 8250) (NOTE) CPT: (test code = 8400) (NOTE) PDFE (test code = PDFReport) PDF Darryl Ackerman [facility]ftSURGICAL PATHOLOGY [id number] 00:00:00* Test Item Value Reference Range Interpretation Comme nts DIAGNOSIS: (test code = 8200) (NOTE) MICROSCOPIC DESCRIPTION: (te st code = 8210) (NOTE) CLINICAL DATA: (test code = 8401) (NOTE) GROSS DESCRIPTION: (test code = 8220) (NOTE) PATHOLOGIST: (test code = 8250) (NOTE) CPT: (test code = 8400) (NOTE) PDFE (test code = PDFReport) PDF Darryl Ackerman AustinSURGICAL PATHOLOGY [id number] 00:00:00* Test Item Value Reference Range Interpretation Comme nts DIAGNOSIS: (test code = 8200) (NOTE) MICROSCOPIC DESCRIPTION: (te st code = 8210) (NOTE) CLINICAL DATA: (test code = 8401) (NOTE) GROSS DESCRIPTION: (test code = 8220) (NOTE) PATHOLOGIST: (test code = 8250) (NOTE) CPT: (test code = 8400) (NOTE) PDFE (test code = PDFReport) PDF Darryl Ackerman AustinSURGICAL PATHOLOGY [id number] 00:00:00* Test Item Value Reference Range Interpretation Comme nts DIAGNOSIS: (test code = 8200) (NOTE) MICROSCOPIC DESCRIPTION: (te st code = 8210) (NOTE) CLINICAL DATA: (test code = 8401) (NOTE) GROSS DESCRIPTION: (test code = 8220) (NOTE) PATHOLOGIST: (test code = 8250) (NOTE) CPT: (test code = 8400) (NOTE) PDFE (test code = PDFReport) PDF Darryl Ackerman AustinSURGICAL PATHOLOGY [id number] 00:00:00* Test Item Value Reference Range Interpretation Comme nts DIAGNOSIS: (test code = 8200) (NOTE) MICROSCOPIC DESCRIPTION: (te st code = 8210) (NOTE) CLINICAL DATA: (test code = 8401) (NOTE) GROSS DESCRIPTION: (test code = 8220) (NOTE) PATHOLOGIST: (test code = 8250) (NOTE) CPT: (test code = 8400) (NOTE) PDFE (test code = PDFReport) PDF Darryl Ackerman AustinSURGICAL PATHOLOGY [id number] 00:00:00* Test Item Value Reference Range Interpretation Comme nts DIAGNOSIS: (test code = 8200) (NOTE) MICROSCOPIC DESCRIPTION: (te st code = 8210) (NOTE) CLINICAL DATA: (test code = 8401) (NOTE) GROSS DESCRIPTION: (test code = 8220) (NOTE) PATHOLOGIST: (test code = 8250) (NOTE) CPT: (test code = 8400) (NOTE) PDFE (test code = PDFReport) PDF Darryl Ackerman AustinSURGICAL PATHOLOGY [id number] 00:00:00* Test Item Value Reference Range Interpretation Comme nts DIAGNOSIS: (test code = 8200) (NOTE) MICROSCOPIC DESCRIPTION: (te st code = 8210) (NOTE) CLINICAL DATA: (test code = 8401) (NOTE) GROSS DESCRIPTION: (test code = 8220) (NOTE) PATHOLOGIST: (test code = 8250) (NOTE) CPT: (test code = 8400) (NOTE) PDFE (test code = PDFReport) PDF Darryl Ackerman AustinVAGINAL PATHOGENS DNA [id number] 13:41:36* Test Item Value Reference Range Interpretation Comme nts JAZ SPECIES (test code = 12936) NEGATIVE NEGATIVE G. VAGINALIS (test code = 57452) NEGATIVE NEGATIVE T. VAGINALIS (test code = 85706) NEGATIVE NEGATIVE Note: [facility] VPIII Microbial Identification Testis a DNA probe test intended for use in the detectionand identification of Jaz species, Gardnerellavaginalis and Trichomonas vaginalis nucleic acid. UNLESS OTHERWISE INDICATED, ALL TESTING PERFORMED AT [facility] [address] [place] [address] IMAGING NURSE: ANIBAL PAREDES M.D. [place] NUMBER [id number] [facility] [place]. [id number] VAGINAL PATHOGENS DNA [id number] 00:00:00* Test Item Value Reference Range Interpretation Comme nts JAZ SPECIES (test code = ) NEGATIVE G. VAGINALIS (test code = 74434) NEGATIVE T. VAGINALIS (test code = 61731) NEGATIVE Darryl F AustinVAGINAL PATHOGENS DNA [id number] 00:00:00* Test Item Value Reference Range Interpretation Comme nts JAZ SPECIES (test code = 44455) NEGATIVE G. VAGINALIS (test code = 29153) NEGATIVE T. VAGINALIS (test code = 03736) NEGATIVE Darryl F AustinVAGINAL PATHOGENS DNA [id number] 00:00:00* Test Item Value Reference Range Interpretation Comme nts JAZ SPECIES (test code = 88500) NEGATIVE G. VAGINALIS (test code = 94626) NEGATIVE T. VAGINALIS (test code = 45725) NEGATIVE Darryl F AustinVAGINAL PATHOGENS DNA [id number] 00:00:00* Test Item Value Reference Range Interpretation Comme nts JAZ SPECIES (test code = 34830) NEGATIVE G. VAGINALIS (test code = 57349) NEGATIVE T. VAGINALIS (test code = 30296) NEGATIVE Darryl F AustinVAGINAL PATHOGENS DNA [id number] 00:00:00* Test Item Value Reference Range Interpretation Comme nts JAZ SPECIES (test code = 93764) NEGATIVE G. VAGINALIS (test code = 19689) NEGATIVE T. VAGINALIS (test code = 52430) NEGATIVE Darryl F AustinVAGINAL PATHOGENS DNA [id number] 00:00:00* Test Item Value Reference Range Interpretation Comme nts JAZ SPECIES (test code = 25862) NEGATIVE G. VAGINALIS (test code = 25644) NEGATIVE T. VAGINALIS (test code = 94981) NEGATIVE Darryl F AustinVAGINAL PATHOGENS DNA [id number] 00:00:00* Test Item Value Reference Range Interpretation Comme nts JAZ SPECIES (test code = ) NEGATIVE G. VAGINALIS (test code = ) NEGATIVE T. VAGINALIS (test code = ) NEGATIVE Darryl WaggonerCOMP. METABOLIC PANEL ([id number])2023-06-12 05:34:53* Test Item Value Reference Range Interpretation Comme nts NA (test code = 1336412974) 137 mmol/L 135-145 K (test code = 5929397715) 3.9 mmol/L 3.5-5.0 CL (test code = 5449019790) 106 mmol/L 98-108 CO2 TOTAL (test code = 3243502099) 24 mmol/L 23-31 AGAP (test code = 3026643172) 7 2-16 BUN (test code = 9440599395) 10 mg/dL 7-23 GLUCOSE (test code = 2400652260) 90 mg/dL 70-110 CREATININE (test code = 3191326335) 0.94 mg/dL 0.50-1.04 TOTAL BILI (test code = 8442598757) 0.1-1.1 L CALCIUM (test code = 1795369355) 9.1 mg/dL 8.6-10.6 T PROTEIN (test code = 6922679675) 6.9 g/dL 6.3-8.2 ALBUMIN (test code = 5075311732) 4.1 g/dL 3.5-5.0 ALK PHOS (test code = 7843327723) 72 U/L 34-122 ALTv (test code = 1742-6) 24 U/L 5-35 AST(SGOT) (test code = 0400925898) 28 U/L 13-40 eGFR (test code = 4568491000) 69.5 mL/min/1.73m2 ELIA (test code = ELIA) [...] imaging tests). Lab Interpretation (test code = 15375-7) Abnormal [facility] WITH [id number] 05:16:33* Test Item Value Reference Range Interpretation Comme nts WBC (test code = 6690-2) 7.81 See_Comment [[employer]] The system which generated this result transmitted reference range: 4.30 - 11.10 10*3/?L. The reference range was not used to interpret this result as normal/abnormal. RBC (test code = 789-8) 3.89 See_Comment L [[employer]] The system which generated this result transmitted [...] g/dL 31.6-35.1 L RDW-SD (test code = 92073-2) 48.2 fL 39.0-49.9 RDW-CV (test code = 788-0) 17.9 % 12.0-15.5 H PLT (test code = 777-3) 327 See_Comment [Automated messa ge] The system which generated this result transmitted reference range: 166 - 358 10*3/?L. The reference range was not used to interpret this result as normal/abnormal. MPV (test code = 27589-7) 9.7 fL 9.5-12.9 NRBC/100 WBC (test code = 4025722794) 0.0 See_Comment [Automated me ssage] The system which generated this result transmitted reference range: 0.0 - 10.0 /100 WBCs. The reference range was not used to interpret this result as normal/abnormal. NRBC x10^3 (test code = 7434961153) See_Comment [Automated messa ge] The system which generated this result transmitted reference range: 10*3/?L. The reference range was not used to interpret this result as normal/abnormal. GRAN MAT (NEUT) % (test code = 770-8) 40.4 % IMM GRAN % (test code = 2276067035) 0.10 % LYMPH % (test code = 736-9) 45.5 % MONO % (test code = 5905-5) 9.0 % EOS % (test code = 713-8) 4.5 % BASO % (test code = 706-2) 0.5 % GRAN MAT x10^3(ANC) (test code = 9029695774) 3.16 10*3/uL 1.88-7.09 IMM GRAN x10^3 (test code = 6920005930) 0.00-0.06 LYMPH x10^3 (test code = 731-0) 3.55 10*3/uL 1.32-3.29 H MONO x10^3 (test code = 742-7) 0.70 10*3/uL 0.33-0.92 EOS x10^3 (test code = 711-2) 0.35 10*3/uL 0.03-0.39 BASO x10^3 (test code = 704-7) 0.04 10*3/uL 0.01-0.07 Lab Interpretation (test code = 38328-7) [facility] [id number] 05:07:00* Test Item Value Reference Range Interpretation Comme nts POCT PREG (test code = 1605) Negative On board controls acceptable with C Line (test code = 3574) Yes POCT PREG LOT # (test code = 3575) [id number] POCT PREG TEST DATE ( test code = 3576) 10/17/2024 Lab Interpretation (test cod e = 10809-1) [facility], [id number] 18:32:20 * Test Item Value Reference Range Interpretation Comme nts SOURCE: (test code = 8001) Cervical SLIDES: (test code = 8011) 1 LMP: (test code = 8021) 05/17/2023 SPECIMEN ADEQUACY: (test code = 42534) (NOTE) Satisfactory for evaluation. Endocervical cells/transformation zone component present. INTERPRETATION: (test code = 88042) ASCUS/EPITH. ABNORMALITY; SEE BELOW A - ------- EPITHELIAL CELL ABNORMALITY Atypical squamous cells of undetermined significance (ASC-US) OTHER COMMENTS: (test code = 8081) (NOTE) Trichomonas v aginalis present. ANATOMIC PATHOLOGY MANAGER: (test code = 8101) TIERA Mcgee(ASC P) PATHOLOGIST INTERPRETATION BY: (test code = 8122) Joana Luna DO LOCATION: (test code = 71104) (NOTE) Specimens proces sed and interpreted at [facility] , [address] [place] [address], , CLIA: [id number] CPT: (test code = 8140) (NOTE) 37046, 22831 UNL ESS OTHERWISE INDICATED, COMPUTER AIDED AND ANATOMIC PATHOLOGY MANAGER SCREENING PERFORMED. The Pap test is a screening test with an inherent, but low probability of error. Your patient should be reminded to consult you immediately if she experiences any suspicious signs or symptoms, regardless of her Pap test result. An alternate report format containing images or consolidated prior Pap history is available as applicable. PAP TEST, THINPREP, [id number] 00:00:00* Test Item Value Reference Range Interpretation Comme nts SOURCE: (test code = 8001) Cervical SLIDES: (test code = 8011) 1 LMP: (test code = 8021) 05/17/2023 SPECIMEN ADEQUACY: (test code = 35491) (NOTE) INTERPRETATION: (test code = 75769) ASCUS/EPITH. ABNORMALITY; SEE BELOW OTHER COMMENTS: (test code = 8081) (NOTE) ANATOMIC PATHOLOGY MANAGER: (test code = 8101) TIERA Mcgee(ASCP) PATHOLOGIST INTERPRETATION BY: (test code = 8122) Joana Luna DO LOCATION: (test code = 80771) (NOTE) CPT: (test code = 8140) (NOTE) Darryl WaggonerPAP TEST, THINPREP, [id number] 00:00:00* Test Item Value Reference Range Interpretation Comme nts SOURCE: (test code = 8001) Cervical SLIDES: (test code = 8011) 1 LMP: (test code = 8021) 05/17/2023 SPECIMEN ADEQUACY: (test code = 76369) (NOTE) INTERPRETATION: (test code = 64604) ASCUS/EPITH. ABNORMALITY; SEE BELOW OTHER COMMENTS: (test code = 8081) (NOTE) ANATOMIC PATHOLOGY MANAGER: (test code = 8101) TIERA Mcgee(ASCP) PATHOLOGIST INTERPRETATION BY: (test code = 8122) Joana Luna DO LOCATION: (test code = 76189) (NOTE) CPT: (test code = 8140) (NOTE) Darryl WaggonerPAP TEST, THINPREP, [id number] 00:00:00* Test Item Value Reference Range Interpretation Comme nts SOURCE: (test code = 8001) Cervical SLIDES: (test code = 8011) 1 LMP: (test code = 8021) 05/17/2023 SPECIMEN ADEQUACY: (test code = 37919) (NOTE) INTERPRETATION: (test code = 14027) ASCUS/EPITH. ABNORMALITY; SEE BELOW OTHER COMMENTS: (test code = 8081) (NOTE) ANATOMIC PATHOLOGY MANAGER: (test code = 8101) TIERA Mcege(ASCP) PATHOLOGIST INTERPRETATION BY: (test code = 8122) Joana Luna DO LOCATION: (test code = 88237) (NOTE) CPT: (test code = 8140) (NOTE) Darryl WaggonerPAP TEST, THINPREP, [id number] 00:00:00* Test Item Value Reference Range Interpretation Comme nts SOURCE: (test code = 8001) Cervical SLIDES: (test code = 8011) 1 LMP: (test code = 8021) 05/17/2023 SPECIMEN ADEQUACY: (test code = 85777) (NOTE) INTERPRETATION: (test code = 91248) ASCUS/EPITH. ABNORMALITY; SEE BELOW OTHER COMMENTS: (test code = 8081) (NOTE) ANATOMIC PATHOLOGY MANAGER: (test code = 8101) TIERA Mcgee(ASCP) PATHOLOGIST INTERPRETATION BY: (test code = 8122) Joana Luna DO LOCATION: (test code = 29594) (NOTE) CPT: (test code = 8140) (NOTE) Darryl WaggonerPAP TEST, THINPREP, [id number] 00:00:00* Test Item Value Reference Range Interpretation Comme nts SOURCE: (test code = 8001) Cervical SLIDES: (test code = 8011) 1 LMP: (test code = 8021) 05/17/2023 SPECIMEN ADEQUACY: (test code = 44193) (NOTE) INTERPRETATION: (test code = 51862) ASCUS/EPITH. ABNORMALITY; SEE BELOW OTHER COMMENTS: (test code = 8081) (NOTE) ANATOMIC PATHOLOGY MANAGER: (test code = 8101) TIERA Mcgee(ASCP) PATHOLOGIST INTERPRETATION BY: (test code = 8122) Joana Luna DO LOCATION: (test code = 29605) (NOTE) CPT: (test code = 8140) (NOTE) Darryl McadamsP TEST, THINPREP, [id number] 00:00:00* Test Item Value Reference Range Interpretation Comme nts SOURCE: (test code = 8001) Cervical SLIDES: (test code = 8011) 1 LMP: (test code = 8021) 05/17/2023 SPECIMEN ADEQUACY: (test code = 29667) (NOTE) INTERPRETATION: (test code = 80000) ASCUS/EPITH. ABNORMALITY; SEE BELOW OTHER COMMENTS: (test code = 8081) (NOTE) ANATOMIC PATHOLOGY MANAGER: (test code = 8101) TIERA Mcgee(ASCP) PATHOLOGIST INTERPRETATION BY: (test code = 8122) [facility] LOCATION: (test code = 61456) (NOTE) CPT: (test code = 8140) (NOTE) Darryl McadamsP TEST, THINPREP, [id number] 00:00:00* Test Item Value Reference Range Interpretation Comme nts SOURCE: (test code = 8001) Cervical SLIDES: (test code = 8011) 1 LMP: (test code = 8021) 05/17/2023 SPECIMEN ADEQUACY: (test code = 66048) (NOTE) INTERPRETATION: (test code = 97877) ASCUS/EPITH. ABNORMALITY; SEE BELOW OTHER COMMENTS: (test code = 8081) (NOTE) ANATOMIC PATHOLOGY MANAGER: (test code = 8101) TIERA Mcgee(ASCP) PATHOLOGIST INTERPRETATION BY: (test code = 8122) Jo[facility] LOCATION: (test code = 75826) (NOTE) CPT: (test code = 8140) (NOTE) Darryl Ackerman EdilsonCT/NG, NAAT, [id number] 20:10:21* Test Item Value Reference Range Interpretation Comme nts CHLAMYDIA, NAAT, URINE (test code = 30311) POSITIVE NEGATIVE A Testing is perfo rmed with Lucie HARRY 6800/8800 systems usingreal-time polymerase chain reaction (PCR) method. GONORRHEA, NAAT, URINE (test code = 62007) NEGATIVE NEGATIVE Testing is perfo rmed with Lucie HARRY 6800/8800 systems usingreal-time polymerase chain reaction (PCR) method. A negative result does not exclude low level infection, specimensampling error, or collection error. UNLESS OTHERWISE INDICATED, ALL TESTING PERFORMED AT [facility] [address] [place] [address] IMAGING NURSE: ANIBLA PAREDES M.D. CLIA NUMBER [id number] [place]. [id number] HPV HIGH RISK WITH GENOTYPE, [id number] 17:33:46* Test Item Value Reference Range Interpretation Comme nts HPV HIGH RISK INTERP (test code = 72574) POSITIVE NEGATIVE A HPV 16 (test code = 48889) POSITIVE A HPV 18 (test code = 98837) NEGATIVE HPV, HR, OTHER GENOTYPES (test code = 39752) NEGATIVE Testing methodol ogy is real-time PCR utilizing hydrolysis probes with the Zimrideas 4800 system. The test individually detects genotypes 16 and 18, as well as the other 12 high risk types (31,33,35,39,45,51,52,56 ,58,59,66,68). The expected result is negative. A negative result does not rule out the presence of HPV not included in the genotype set, a low level of infection or specimen sampling error. UNLESS OTHERWISE INDICATED, ALL TESTING PERFORMED AT [facility] [address] [place] [address] IMAGING NURSE: Kaylyn GARCIAIA NUMBER [id number] [place]. [id number] VAGINAL PATHOGENS DNA [id number] 16:55:18* Test Item Value Reference Range Interpretation Comme nts JAZ SPECIES (test code = 81063) NEGATIVE NEGATIVE G. VAGINALIS (test code = 36816) NEGATIVE NEGATIVE T. VAGINALIS (test code = 26246) NEGATIVE NEGATIVE Note: [facility] VPIII Microbial Identification Testis a DNA probe test intended for use in the detectionand identification of Jaz species, Gardnerellavaginalis and Trichomonas vaginalis nucleic acid. UNLESS OTHERWISE INDICATED, ALL TESTING PERFORMED AT [facility], [facility]. [address] [place] [address] IMAGING NURSE: ANIBAL PAREDES M.D. CLIA NUMBER [id number] [place]. [id number] RPR REFLEX TO T. PALLIDUM - [id number] 08:07:41* Test Item Value Reference Range Interpretation Comme nts RPR (test code = 14723) NON-REACTIVE NON-REACTIVE RPR TITER (test code = 3500) NOT INDIC. TITER NOT INDIC. HIV 1/2 4TH GEN, RFLX [id number] 05:24:44* Test Item Value Reference Range Interpretation Comme nts HIV 1/2 4TH GEN, RFLX CONF ( test code = 3514) NON-REACTIVE NON-REACTIVE HPV HIGH RISK WITH GENOTYPE, [id number] 00:00:00* Test Item Value Reference Range Interpretation Comme nts HPV HIGH RISK INTERP (test c ode = 28276) POSITIVE HPV 16 (test code = 73816) POSITIVE HPV 18 (test code = 82647) NEGATIVE HPV, HR, OTHER GENOTYPES (te st code = 82711) NEGATIVE PDFE (test code = PDFReport) PDF Darryl Ackerman AustinRPR REFLEX TO T. PALLIDUM - [id number] 00:00:00* Test Item Value Reference Range Interpretation Comme nts RPR (test code = 85030) NON-REACTIVE RPR TITER (test code = 3500) NOT INDIC. TITER Darryl Ackerman AustinCT/NG, TMA, [id number] 00:00:00* Test Item Value Reference Range Interpretation Comme nts CHLAMYDIA, NAAT, URINE (test code = 18966) POSITIVE GONORRHEA, NAAT, URINE (test code = 01524) NEGATIVE Darryl WaggonerHIV 1/2 4TH GEN, RFLX [id number] 00:00:00* Test Item Value Reference Range Interpretation Comme nts HIV 1/2 4TH GEN, RFLX CONF ( test code = 3514) NON-REACTIVE Darryl WaggonerVAGINAL PATHOGENS DNA [id number] 00:00:00* Test Item Value Reference Range Interpretation Comme nts JAZ SPECIES (test code = 46869) NEGATIVE G. VAGINALIS (test code = 52786) NEGATIVE T. VAGINALIS (test code = 61909) NEGATIVE Darryl Ackerman AustinRPR REFLEX TO T. PALLIDUM - [id number] 00:00:00* Test Item Value Reference Range Interpretation Comme nts RPR (test code = 92380) NON-REACTIVE RPR TITER (test code = 3500) NOT INDIC. TITER aDrryl Ackerman AustinHPV HIGH RISK WITH GENOTYPE, [id number] 00:00:00* Test Item Value Reference Range Interpretation Comme nts HPV HIGH RISK INTERP (test c ode = 67978) POSITIVE HPV 16 (test code = 62363) POSITIVE HPV 18 (test code = 67354) NEGATIVE HPV, HR, OTHER GENOTYPES (te st code = 98875) NEGATIVE PDFE (test code = PDFReport) PDF Darryl Ackerman AustinCT/NG, TMA, [id number] 00:00:00* Test Item Value Reference Range Interpretation Comme nts CHLAMYDIA, NAAT, URINE (test code = 58707) POSITIVE GONORRHEA, NAAT, URINE (test code = 34708) NEGATIVE Darryl Ackerman AustinHIV 1/2 4TH GEN, RFLX [id number] 00:00:00* Test Item Value Reference Range Interpretation Comme nts HIV 1/2 4TH GEN, RFLX CONF ( test code = 3514) NON-REACTIVE Darryl WaggonerVAGINAL PATHOGENS DNA [id number] 00:00:00* Test Item Value Reference Range Interpretation Comme nts JAZ SPECIES (test code = 18359) NEGATIVE G. VAGINALIS (test code = 31211) NEGATIVE T. VAGINALIS (test code = 31839) NEGATIVE Darryl Ackerman AustinHPV HIGH RISK WITH GENOTYPE, [id number] 00:00:00* Test Item Value Reference Range Interpretation Comme nts HPV HIGH RISK INTERP (test c ode = 75889) POSITIVE HPV 16 (test code = 97583) POSITIVE HPV 18 (test code = 31947) NEGATIVE HPV, HR, OTHER GENOTYPES (te st code = 34551) NEGATIVE PDFE (test code = PDFReport) PDF Darryl Ackerman AustinRPR REFLEX TO T. PALLIDUM - [id number] 00:00:00* Test Item Value Reference Range Interpretation Comme nts RPR (test code = 96733) NON-REACTIVE RPR TITER (test code = 3500) NOT INDIC. TITER Darryl Ackerman AustinCT/NG, TMA, [id number] 00:00:00* Test Item Value Reference Range Interpretation Comme nts CHLAMYDIA, NAAT, URINE (test code = 66817) POSITIVE GONORRHEA, NAAT, URINE (test code = 62398) NEGATIVE Darryl Ackerman AustinHIV 1/2 4TH GEN, RFLX [id number] 00:00:00* Test Item Value Reference Range Interpretation Comme nts HIV 1/2 4TH GEN, RFLX CONF ( test code = 3514) NON-REACTIVE Darryl Ackerman AustinVAGINAL PATHOGENS DNA [id number] 00:00:00* Test Item Value Reference Range Interpretation Comme nts JAZ SPECIES (test code = ) NEGATIVE G. VAGINALIS (test code = 16060) NEGATIVE T. VAGINALIS (test code = 28695) NEGATIVE Darryl Ackerman AustinHPV HIGH RISK WITH GENOTYPE, [id number] 00:00:00* Test Item Value Reference Range Interpretation Comme nts HPV HIGH RISK INTERP (test c ode = 77652) POSITIVE HPV 16 (test code = 62080) POSITIVE HPV 18 (test code = 47260) NEGATIVE HPV, HR, OTHER GENOTYPES (te st code = 79220) NEGATIVE PDFE (test code = PDFReport) PDF Darryl Ackerman AustinRPR REFLEX TO T. PALLIDUM - [id number] 00:00:00* Test Item Value Reference Range Interpretation Comme nts RPR (test code = 35794) NON-REACTIVE RPR TITER (test code = 3500) NOT INDIC. TITER Darryl Ackerman AustinCT/NG, TMA, [id number] 00:00:00* Test Item Value Reference Range Interpretation Comme nts CHLAMYDIA, NAAT, URINE (test code = 39502) POSITIVE GONORRHEA, NAAT, URINE (test code = 93087) NEGATIVE Darryl WaggonerHIV 1/2 4TH GEN, RFLX [id number] 00:00:00* Test Item Value Reference Range Interpretation Comme nts HIV 1/2 4TH GEN, RFLX CONF ( test code = 3514) NON-REACTIVE Darryl Ackerman AustinVAGINAL PATHOGENS DNA [id number] 00:00:00* Test Item Value Reference Range Interpretation Comme nts JAZ SPECIES (test code = ) NEGATIVE G. VAGINALIS (test code = 48854) NEGATIVE T. VAGINALIS (test code = 92409) NEGATIVE Darryl Ackerman AustinRPR REFLEX TO T. PALLIDUM - [id number] 00:00:00* Test Item Value Reference Range Interpretation Comme nts RPR (test code = 16846) NON-REACTIVE RPR TITER (test code = 3500) NOT INDIC. TITER Darryl Ackerman AustinHPV HIGH RISK WITH GENOTYPE, [id number] 00:00:00* Test Item Value Reference Range Interpretation Comme nts HPV HIGH RISK INTERP (test c ode = 44017) POSITIVE HPV 16 (test code = 13735) POSITIVE HPV 18 (test code = 17642) NEGATIVE HPV, HR, OTHER GENOTYPES (te st code = 32016) NEGATIVE PDFE (test code = PDFReport) PDF Darryl Ackerman AustinCT/NG, TMA, [id number] 00:00:00* Test Item Value Reference Range Interpretation Comme nts CHLAMYDIA, NAAT, URINE (test code = 35352) POSITIVE GONORRHEA, NAAT, URINE (test code = 43728) NEGATIVE Darryl Ackerman AustinHIV 1/2 4TH GEN, RFLX [id number] 00:00:00* Test Item Value Reference Range Interpretation Comme nts HIV 1/2 4TH GEN, RFLX CONF ( test code = 3514) NON-REACTIVE Darryl Ackerman AustinVAGINAL PATHOGENS DNA [id number] 00:00:00* Test Item Value Reference Range Interpretation Comme nts JAZ SPECIES (test code = 14327) NEGATIVE G. VAGINALIS (test code = 58196) NEGATIVE T. VAGINALIS (test code = 04590) NEGATIVE Darryl Ackerman AustinRPR REFLEX TO T. PALLIDUM - [id number] 00:00:00* Test Item Value Reference Range Interpretation Comme nts RPR (test code = 63034) NON-REACTIVE RPR TITER (test code = 3500) NOT INDIC. TITER Darryl Ackerman AustinHPV HIGH RISK WITH GENOTYPE, [id number] 00:00:00* Test Item Value Reference Range Interpretation Comme nts HPV HIGH RISK INTERP (test c ode = 89081) POSITIVE HPV 16 (test code = 81352) POSITIVE HPV 18 (test code = 79270) NEGATIVE HPV, HR, OTHER GENOTYPES (te st code = 83736) NEGATIVE PDFE (test code = PDFReport) PDF Darryl Ackerman AustinCT/NG, TMA, [id number] 00:00:00* Test Item Value Reference Range Interpretation Comme nts CHLAMYDIA, NAAT, URINE (test code = 23449) POSITIVE GONORRHEA, NAAT, URINE (test code = 58214) NEGATIVE Darryl Ackerman AustinVAGINAL PATHOGENS DNA [id number] 00:00:00* Test Item Value Reference Range Interpretation Comme nts JAZ SPECIES (test code = ) NEGATIVE G. VAGINALIS (test code = 98198) NEGATIVE T. VAGINALIS (test code = ) NEGATIVE Darryl WaggonerHIV 1/2 4TH GEN, RFLX [id number] 00:00:00* Test Item Value Reference Range Interpretation Comme nts HIV 1/2 4TH GEN, RFLX CONF ( test code = 3514) NON-REACTIVE Darryl Ackerman AustinRPR REFLEX TO T. PALLIDUM - [id number] 00:00:00* Test Item Value Reference Range Interpretation Comme nts RPR (test code = 20672) NON-REACTIVE RPR TITER (test code = 3500) NOT INDIC. TITER Darryl Ackerman AustinHPV HIGH RISK WITH GENOTYPE, [id number] 00:00:00* Test Item Value Reference Range Interpretation Comme nts HPV HIGH RISK INTERP (test c ode = 14605) POSITIVE HPV 16 (test code = 71458) POSITIVE HPV 18 (test code = 75423) NEGATIVE HPV, HR, OTHER GENOTYPES (te st code = 45801) NEGATIVE PDFE (test code = PDFReport) PDF Darryl F AustinCT/NG, TMA, [id number] 00:00:00* Test Item Value Reference Range Interpretation Comme nts CHLAMYDIA, NAAT, URINE (test code = 55911) POSITIVE GONORRHEA, NAAT, URINE (test code = 76513) NEGATIVE Darryl Ackerman AustinHIV 1/2 4TH GEN, RFLX [id number] 00:00:00* Test Item Value Reference Range Interpretation Comme nts HIV 1/2 4TH GEN, RFLX CONF ( test code = 3514) NON-REACTIVE Darryl Ackerman AustinVAGINAL PATHOGENS DNA [id number] 00:00:00* Test Item Value Reference Range Interpretation Comme nts JAZ SPECIES (test code = ) NEGATIVE G. VAGINALIS (test code = ) NEGATIVE T. VAGINALIS (test code = ) NEGATIVE Darryl WaggonerCOMP. METABOLIC PANEL (79034)2023-05-28 07:12:09* Test Item Value Reference Range Interpretation Comme nts NA (test code = 8156633264) 138 mmol/L 135-145 K (test code = 6733506263) 3.6 mmol/L 3.5-5.0 CL (test code = 7080989871) 105 mmol/L 98-108 CO2 TOTAL (test code = 8478177619) 24 mmol/L 23-31 AGAP (test code = 7701725548) 9 2-16 BUN (test code = 6383984416) 8 mg/dL 7-23 GLUCOSE (test code = 8445461927) 94 mg/dL 70-110 CREATININE (test code = 4678663353) 0.90 mg/dL 0.50-1.04 TOTAL BILI (test code = 9106964213) 0.5 mg/dL 0.1-1.1 CALCIUM (test code = 5973071680) 9.2 mg/dL 8.6-10.6 T PROTEIN (test code = 4467352169) 7.8 g/dL 6.3-8.2 ALBUMIN (test code = 6229555431) 4.3 g/dL 3.5-5.0 ALK PHOS (test code = 1672602737) 91 U/L 34-122 ALTv (test code = 1742-6) 32 U/L 5-35 AST(SGOT) (test code = 7485076132) 48 U/L 13-40 H eGFR (test code = 2201026258) 73.0 mL/min/1.73m2 ELIA (test code = ELIA) [...] imaging tests). Lab Interpretation (test code = 91424-0) Abnormal [facility] WITH [id number] 06:45:45* Test Item Value Reference Range Interpretation Comme nts WBC (test code = 6690-2) 7.78 See_Comment [Automated [employer]] The system which generated this result transmitted reference range: 4.30 - 11.10 10*3/?L. The reference range was not used to interpret this result as normal/abnormal. RBC (test code = 789-8) 4.16 See_Comment [Automated [employer]] The system which generated this result transmitted [...] g/dL 31.6-35.1 L RDW-SD (test code = 71147-2) 49.8 fL 39.0-49.9 RDW-CV (test code = 788-0) 18.3 % 12.0-15.5 H PLT (test code = 777-3) 391 See_Comment H [Automated [employer]] The system which generated this result transmitted reference range: 166 - 358 10*3/?L. The reference range was not used to interpret this result as normal/abnormal. MPV (test code = 23540-3) 10.3 fL 9.5-12.9 NRBC/100 WBC (test code = 0796674310) 0.0 See_Comment [Automated me ssage] The system which generated this result transmitted reference range: 0.0 - 10.0 /100 WBCs. The reference range was not used to interpret this result as normal/abnormal. NRBC x10^3 (test code = 6096478649) See_Comment [Automated messa ge] The system which generated this result transmitted reference range: 10*3/?L. The reference range was not used to interpret this result as normal/abnormal. GRAN MAT (NEUT) % (test code = 770-8) 47.8 % IMM GRAN % (test code = 4208418626) 0.30 % LYMPH % (test code = 736-9) 39.1 % MONO % (test code = 5905-5) 8.5 % EOS % (test code = 713-8) 3.5 % BASO % (test code = 706-2) 0.8 % GRAN MAT x10^3(ANC) (test code = 0369098997) 3.73 10*3/uL 1.88-7.09 IMM GRAN x10^3 (test code = 4073025871) 0.00-0.06 LYMPH x10^3 (test code = 731-0) 3.04 10*3/uL 1.32-3.29 MONO x10^3 (test code = 742-7) 0.66 10*3/uL 0.33-0.92 EOS x10^3 (test code = 711-2) 0.27 10*3/uL 0.03-0.39 BASO x10^3 (test code = 704-7) 0.06 10*3/uL 0.01-0.07 Lab Interpretation (test code = 92904-1) [facility] [id number] 06:40:00* Test Item Value Reference Range Interpretation Comme nts POCT PREG (test code = 1605) Negative On board controls acceptable with C Line (test code = 3574) Yes POCT PREG LOT # (test code = 3575) [id number] POCT PREG TEST DATE ( test code = 3576) 10/17/2024 Lab Interpretation (test cod e = 92401-0) Normal [facility] [id number] 06:17:00* Test Item Value Reference Range Interpretation Comme nts POCT PREG (test code = 1605) Negative On board controls acceptable with C Line (test code = 3574) Present POCT PREG LOT # (test code = 3575) [id number] POCT PREG TEST DATE ( test code = 3576) Lab Interpretation (test cod e = 49856-0) Normal [facility] [id number] 18:58:00* Test Item Value Reference Range Interpretation Comme nts POCT PREG (test code = 1605) negative Lab Interpretation (test cod e = 06676-0) Normal [facility] WITH [id number] 13:14:57* Test Item Value Reference Range Interpretation [...] g/dL 31.6-35.1 L RDW-SD (test code = 08800-3) 46.2 fL 39-49.9 RDW-CV (test code = 788-0) 17.0 % 12-15.5 H PLT (test code = 777-3) See_Comment H [Automated messa ge] The system which generated this result transmitted reference range: 166 - 358 10*3/?L. The reference range was not used to interpret this result as normal/abnormal. MPV (test code = 14032-8) 9.1 fL 9.5-12.9 L NRBC/100 WBC (test code = 7686438118) See_Comment [Automated [employer] ssage] The system which generated this result transmitted reference range: 0.0 - 10.0 /100 WBCs. The reference range was not used to interpret this result as normal/abnormal. NRBC x10^3 (test code = 3507379389) See_Comment [Automated messa ge] The system which generated this result transmitted reference range: 10*3/?L. The reference range was not used to interpret this result as normal/abnormal. GRAN MAT (NEUT) % (test code = 770-8) 51.3 % IMM GRAN % (test code = 9462164108) 0.40 % LYMPH % (test code = 736-9) 37.0 % MONO % (test code = 5905-5) 8.5 % EOS % (test code = 713-8) 2.2 % BASO % (test code = 706-2) 0.6 % GRAN MAT x10^3(ANC) (test code = 3032890980) 4.26 10*3/uL 1.88-7.09 IMM GRAN x10^3 (test code = 8217065241) 0.03 10*3/uL 0-0.06 LYMPH x10^3 (test code = 731-0) 3.06 10*3/uL 1.32-3.29 MONO x10^3 (test code = 742-7) 0.70 10*3/uL 0.33-0.92 EOS x10^3 (test code = 711-2) 0.18 10*3/uL 0.03-0.39 BASO x10^3 (test code = 704-7) 0.05 10*3/uL 0.01-0.07 Lab Interpretation (test code = 99564-3) Abnormal [facility] [id number] 12:55:00* Test Item Value Reference Range Interpretation Comme nts POCT PREG (test code = 1605) negative On board controls acceptable with C Line (test code = 3574) present Lab Interpretation (test cod e = 58683-3) [facility] [id number] 20:49:00* Test Item Value Reference Range Interpretation Comme nts POCT PREG (test code = 1605) negative On board controls acceptable with C Line (test code = 3574) yes POCT PREG LOT # (test code = 3575) [id number] POCT PREG TEST DATE ( test code = 3576) 08/14/2023 Lab Interpretation (test cod e = 64129-4) [facility] Eeyjl1908-02-26 08:01:55* Test Item Value Reference Range Interpretation Comme nts NA (test code = 1792864805) 138 mmol/L 135-145 K (test code = 6610623924) 4.2 mmol/L 3.5-5 CL (test code = 0095384194) 107 mmol/L 98-108 CO2 TOTAL (test code = 3444549548) 20 mmol/L 23-31 L AGAP (test code = 9262243886) 2-16 BUN (test code = 2123179779) 10 mg/dL 7-23 GLUCOSE (test code = 0516960429) 105 mg/dL 70-110 CREATININE (test code = 9126398891) 0.86 mg/dL 0.5-1.04 TOTAL BILI (test code = 4375596543) 0.1-1.1 L CALCIUM (test code = 5906406404) 9.1 mg/dL 8.6-10.6 T PROTEIN (test code = 0528751864) 7.4 g/dL 6.3-8.2 ALBUMIN (test code = 4703697680) 4.8 g/dL 3.5-5 ALK PHOS (test code = 5706833154) 81 U/L 34-122 ALTv (test code = 1742-6) 17 U/L 5-35 AST(SGOT) (test code = 3592577282) 19 U/L 13-40 eGFR (test code = 7084097483) mL/min/1.73m2 ELIA (test code = ELIA) Association [...] imaging tests). Lab Interpretation (test code = 35611-1) [facility]normal [facility] Center[facility], [id number] 07:59:48* Test Item Value Reference Range Interpretation Comme nts LIPASE (test code = 8353604390) 94 U/L 0-220 Lab Interpretation (test cod e = 11769-1) [facility] with Tzxhgnhrfffb5884-06-28 07:47:29* Test Item Value Reference Range Interpretation Comme nts WBC (test code = 6690-2) See_Comment [Automated [employer]] The system which generated this result transmitted reference range: 4.30 - 11.10 10*3/?L. The reference range was not used to interpret this result as normal/abnormal. RBC (test code = 789-8) See_Comment [[employer]ated [employer]] The system which generated this result transmitted [...] g/dL 31.6-35.1 L RDW-SD (test code = 19443-6) 40.2 fL 39-49.9 RDW-CV (test code = 788-0) 15.0 % 12-15.5 PLT (test code = 777-3) See_Comment [Automated messa ge] The system which generated this result transmitted reference range: 166 - 358 10*3/?L. The reference range was not used to interpret this result as normal/abnormal. MPV (test code = 23154-2) 10.1 fL 9.5-12.9 NRBC/100 WBC (test code = 8871322137) See_Comment [Automated [employer] ss[employer]] The system which generated this result transmitted reference range: 0.0 - 10.0 /100 WBCs. The reference range was not used to interpret this result as normal/abnormal. NRBC x10^3 (test code = 4395676271) See_Comment [Automated [employer]] The system which generated this result transmitted reference range: 10*3/?L. The reference range was not used to interpret this result as normal/abnormal. GRAN MAT (NEUT) % (test code = 770-8) 46.6 % IMM GRAN % (test code = 1689045502) 0.40 % LYMPH % (test code = 736-9) 40.7 % MONO % (test code = 5905-5) 8.6 % EOS % (test code = 713-8) 3.3 % BASO % (test code = 706-2) 0.4 % GRAN MAT x10^3(ANC) (test code = 3111313054) 3.40 10*3/uL 1.88-7.09 IMM GRAN x10^3 (test code = 9456831056) 0.03 10*3/uL 0-0.06 LYMPH x10^3 (test code = 731-0) 2.97 10*3/uL 1.32-3.29 MONO x10^3 (test code = 742-7) 0.63 10*3/uL 0.33-0.92 EOS x10^3 (test code = 711-2) 0.24 10*3/uL 0.03-0.39 BASO x10^3 (test code = 704-7) 0.03 10*3/uL 0.01-0.07 Lab Interpretation (test code = 82564-2) Abnormal [facility] Tlji3908-28-77 07:37:00* Test Item Value Reference Range Interpretation Comme nts POCT PREG (test code = 1605) Negative On board controls acceptable with C Line (test code = 3574) Present POCT PREG LOT # (test code = 3575) [id number] POCT PREG TEST DATE ( test code = 3576) 08/14/2023 Lab Interpretation (test cod e = 18046-1) Normal [facility] [id number] 22:19:00* Test Item Value Reference Range Interpretation Comme nts POCT PREG (test code = 1605) NEGATIVE On board controls acceptable with C Line (test code = 3574) present POCT PREG LOT # (test code = 3575) [id number] POCT PREG TEST DATE ( test code = 3576) 07/14/2023 Lab Interpretation (test cod e = 05184-7) Normal [facility] [id number] 19:54:00* Test Item Value Reference Range Interpretation Comme nts POCT PREG (test code = 1605) negative On board controls acceptable with C Line (test code = 3574) present POCT PREG LOT # (test code = 3575) [id number] POCT PREG TEST DATE ( test code = 3576) 12/12/2022 Lab Interpretation (test cod e = 99403-2) [facility] Center[facility]ERR[facility]IN2022-[facility]-07 06:28:44* Test Item Value Reference Range Interpretation Comme nts FERRITIN (test code = 2075) 3 NG/ML 13-200 L KZANMMBKXEB6682-22-07 04:37:13* Test Item Value Reference Range Interpretation Comme nts TRANSFERRIN (test code = 4936) 385 MG/DL 200-360 H UNLESS OTHERWISE INDICATED, ALL TESTING PERFORMED ATCLINICAL PATHOLOGY [employer] [address] [place] [id number] IMAGING NURSE: NICOLE GUSMAN M.D. CLIA NUMBER [id number] [facility] [place]. [id number] IRON BINDING CAPACITY AND IRON AND % [id number] 04:19:01* Test Item Value Reference Range Interpretation Comme nts IRON, SERUM (test code = 2) 11 UG/DL 37-145 L UNSATURATED IBC (test code = 10241) 442 UG/DL 112-347 H CALC TOTAL IBC (test code = 7) 453 UG/DL 250-450 H CALC % IRON SAT (test code = 2078) 2 % 20-50 L IOTHHFZVLJJ4067-00-68 00:00:00* Test Item Value Reference Range Interpretation Comme nts TRANSFERRIN (test code = 4936) 385 MG/DL IRON BINDING CAPACITY AND IRON AND % HYEDSWSAGB8818-96-18 00:00:00* Test Item Value Reference Range Interpretation Comme nts IRON, SERUM (test code = 2221) 11 UG/DL UNSATURATED IBC (test code = 80351) 442 UG/DL CALC TOTAL IBC (test code = 7) 453 UG/DL CALC % IRON SAT (test code = 9) 2 % [id number] 00:00:00* Test Item Value Reference Range Interpretation Comme nts FERRITIN (test code = 5) 3 NG/ML BEVNMVGVDQH8653-54-02 00:00:00* Test Item Value Reference Range Interpretation Comme nts TRANSFERRIN (test code = 4936) 385 MG/DL IRON BINDING CAPACITY AND IRON AND % MMALRGRRSA7738-92-36 00:00:00* Test Item Value Reference Range Interpretation Comme nts IRON, SERUM (test code = 2) 11 UG/DL UNSATURATED IBC (test code = 34284) 442 UG/DL CALC TOTAL IBC (test code = 7) 453 UG/DL CALC % IRON SAT (test code = 9) 2 % Darryl F ErigbiGATNRPPR8097-90-51 00:00:00* Test Item Value Reference Range Interpretation Comme nts FERRITIN (test code = 5) 3 NG/ML Darryl F HhhbvjDIRUFSLVQLZ6627-73-92 00:00:00* Test Item Value Reference Range Interpretation Comme nts TRANSFERRIN (test code = 4936) 385 MG/DL Darryl F AustinIRON BINDING CAPACITY AND IRON AND % DUVHJSTBZR2019-74-70 00:00:00* Test Item Value Reference Range Interpretation Comme nts IRON, SERUM (test code = 2222) 11 UG/DL UNSATURATED IBC (test code = 92898) 442 UG/DL CALC TOTAL IBC (test code = 2077) 453 UG/DL CALC % IRON SAT (test code = 2079) 2 % Darryl F WyamkzOYYHNNSQ8040-30-84 00:00:00* Test Item Value Reference Range Interpretation Comme nts FERRITIN (test code = 2074) 3 NG/ML Darryl F WwmxfcNJHPSUVGBPK4692-19-91 00:00:00* Test Item Value Reference Range Interpretation Comme nts TRANSFERRIN (test code = 4936) 385 MG/DL Darryl F AustinIRON BINDING CAPACITY AND IRON AND % JSTLFPITJN6948-86-90 00:00:00* Test Item Value Reference Range Interpretation Comme nts IRON, SERUM (test code = 2222) 11 UG/DL UNSATURATED IBC (test code = 29238) 442 UG/DL CALC TOTAL IBC (test code = 7) 453 UG/DL CALC % IRON SAT (test code = 2079) 2 % Darryl F SrsvvmDJDVBJXA2175-85-08 00:00:00* Test Item Value Reference Range Interpretation Comme nts FERRITIN (test code = 2074) 3 NG/ML Darryl F UutjakEOIOYLXMJCX6831-10-22 00:00:00* Test Item Value Reference Range Interpretation Comme nts TRANSFERRIN (test code = 4936) 385 MG/DL Darryl F AustinIRON BINDING CAPACITY AND IRON AND % EUOGFPVTMN8914-96-13 00:00:00* Test Item Value Reference Range Interpretation Comme nts IRON, SERUM (test code = 2222) 11 UG/DL UNSATURATED IBC (test code = 27633) 442 UG/DL CALC TOTAL IBC (test code = 2077) 453 UG/DL CALC % IRON SAT (test code = 2079) 2 % Darryl F MmuoctHEPDHHLC2448-96-74 00:00:00* Test Item Value Reference Range Interpretation Comme nts FERRITIN (test code = 2074) 3 NG/ML Darryl F PgkczkMJVRVLRPFOO8738-28-88 00:00:00* Test Item Value Reference Range Interpretation Comme nts TRANSFERRIN (test code = 4936) 385 MG/DL Darryl F AustinIRON BINDING CAPACITY AND IRON AND % [id number] 00:00:00* Test Item Value Reference Range Interpretation Comme nts IRON, SERUM (test code = 2222) 11 UG/DL UNSATURATED IBC (test code = 67878) 442 UG/DL CALC TOTAL IBC (test code = 7) 453 UG/DL CALC % IRON SAT (test code = 2079) 2 % Darryl F ChfdqrVHPGZQNL1945-18-66 00:00:00* Test Item Value Reference Range Interpretation Comme nts FERRITIN (test code = 2074) 3 NG/ML Darryl F NwvhlsNPXGZLEWUBG8242-41-35 00:00:00* Test Item Value Reference Range Interpretation Comme nts TRANSFERRIN (test code = 4936) 385 MG/DL Darryl F AustinIRON BINDING CAPACITY AND IRON AND % YJRRTFTYRQ6296-29-28 00:00:00* Test Item Value Reference Range Interpretation Comme nts IRON, SERUM (test code = 2) 11 UG/DL UNSATURATED IBC (test code = 72858) 442 UG/DL CALC TOTAL IBC (test code = 7) 453 UG/DL CALC % IRON SAT (test code = 9) 2 % Darryl F AsezalPSZIWHUE2709-44-80 00:00:00* Test Item Value Reference Range Interpretation Comme nts FERRITIN (test code = 2074) 3 NG/ML Darryl F ZbfoazBUJGRCQTKJA6939-27-80 00:00:00* Test Item Value Reference Range Interpretation Comme nts TRANSFERRIN (test code = 4936) 385 MG/DL Darryl F AustinIRON BINDING CAPACITY AND IRON AND % PDOOGIZQIQ0900-43-58 00:00:00* Test Item Value Reference Range Interpretation Comme nts IRON, SERUM (test code = 2222) 11 UG/DL UNSATURATED IBC (test code = 09175) 442 UG/DL CALC TOTAL IBC (test code = 7) 453 UG/DL CALC % IRON SAT (test code = 2079) 2 % Darryl F UqpnztURHCSLKZ5527-77-49 00:00:00* Test Item Value Reference Range Interpretation Comme nts FERRITIN (test code = 2075) 3 NG/ML Darryl Ackerman AidutqUQRAMQYQDOL3852-55-43 00:00:00* Test Item Value Reference Range Interpretation Comme nts TRANSFERRIN (test code = 4936) 385 MG/DL Darryl WaggonerIRON BINDING CAPACITY AND IRON AND % [id number] 00:00:00* Test Item Value Reference Range Interpretation Comme nts IRON, SERUM (test code = 2222) 11 UG/DL UNSATURATED IBC (test code = 56490) 442 UG/DL CALC TOTAL IBC (test code = 2077) 453 UG/DL CALC % IRON SAT (test code = 2079) 2 % [id number] 00:00:00* Test Item Value Reference Range Interpretation Comme nts FERRITIN (test code = 207) 3 NG/ML TSH, THIRD KAJFTABIDA6912-45-38 06:15:03* Test Item Value Reference Range Interpretation Comme nts TSH, THIRD GENERATION (test code = 2821) 0.675 UIU/ML 0.400-4.100 UNLESS OTHERWISE INDICATED, ALL TESTING PERFORMED AT[facility] [address] [place] [address] IMAGING NURSE: NICOLE GUSMAN M.D. CLIA NUMBER [id number] [facility] [place]. [id number] CBC W/AUTO DIFF WITH [id number] 02:57:36* Test Item Value Reference Range Interpretation [...] 0.00-0.10 ABS NUCLEATED RBCS (test code = 44294) 0.00 K/UL 0.00-0.11 CBC W/AUTO [id number] 00:00:00* Test Item Value Reference Range Interpretation [...] ABS NUCLEATED RBCS (test cod e = 21132) 0.00 K/UL [id number] 00:00:00* Test Item Value Reference Range Interpretation Comme nts TSH, THIRD GENERATION (test code = 2821) 0.675 UIU/ML [id number] 00:00:00* Test Item Value Reference Range Interpretation Comme nts TSH, THIRD GENERATION (test code = 2821) 0.675 UIU/ML Darryl WaggonerCBC W/AUTO [id number] 00:00:00* Test Item Value Reference Range Interpretation [...] ABS NUCLEATED RBCS (test cod e = 22613) 0.00 K/UL Darryl Ackerman JbssjnKZH9863-69-34 00:00:00* Test Item Value Reference Range Interpretation Comme nts TSH, THIRD GENERATION (test code = 2821) 0.675 UIU/ML Darryl WaggonerC W/AUTO [id number] 00:00:00* Test Item Value Reference Range Interpretation [...] ABS NUCLEATED RBCS (test cod e = 50669) 0.00 K/UL Darryl Ackerman PclsmlIIU9212-29-10 00:00:00* Test Item Value Reference Range Interpretation Comme nts TSH, THIRD GENERATION (test code = 2821) 0.675 UIU/ML Darryl Ackerman AustinCBC W/AUTO [id number] 00:00:00* Test Item Value Reference Range Interpretation [...] ABS NUCLEATED RBCS (test cod e = 33404) 0.00 K/UL Darryl WaggonerTgswpzYBY2380-59-51 00:00:00* Test Item Value Reference Range Interpretation Comme nts TSH, THIRD GENERATION (test code = 2821) 0.675 UIU/ML Darryl WaggonerCBC W/AUTO [id number] 00:00:00* Test Item Value Reference Range Interpretation [...] ABS NUCLEATED RBCS (test cod e = 41424) 0.00 K/UL Darryl Ackerman IoirukJSQ4177-39-54 00:00:00* Test Item Value Reference Range Interpretation Comme nts TSH, THIRD GENERATION (test code = 2821) 0.675 UIU/ML Darryl Ackerman EdilsonCBC W/AUTO [id number] 00:00:00* Test Item Value Reference Range Interpretation [...] ABS NUCLEATED RBCS (test cod e = 60231) 0.00 K/UL Darryl WaggonerXlyitrKEA6978-31-29 00:00:00* Test Item Value Reference Range Interpretation Comme nts TSH, THIRD GENERATION (test code = 2821) 0.675 UIU/ML Darryl WaggonerCBC W/AUTO [id number] 00:00:00* Test Item Value Reference Range Interpretation [...] ABS NUCLEATED RBCS (test cod e = 76088) 0.00 K/UL Darryl WaggonerHgbpovCZD6857-10-53 00:00:00* Test Item Value Reference Range Interpretation Comme nts TSH, THIRD GENERATION (test code = 2821) 0.675 UIU/ML Darryl Ackerman AustinCBC W/AUTO [id number] 00:00:00* Test Item Value Reference Range Interpretation [...] ABS NUCLEATED RBCS (test cod e = 82297) 0.00 K/UL [facility] [id number] 00:00:00* Test Item Value Reference Range Interpretation [...] ABS NUCLEATED RBCS (test cod e = 54256) 0.00 K/UL [id number] 00:00:00* Test Item Value Reference Range Interpretation Comme nts TSH, THIRD GENERATION (test code = 2821) 0.675 UIU/ML Notes Date/Time Note Provider Source Darryl Arriaga [facility]2025-02-13 00:00:00 Darryl Arriaga [facility]2025-02-04 22:45:36 Pt given printed and verbal discharge instructions regarding dental abscess, encouraged hydration, Prescription x2 sent to pharmacy Discussed ibuprofen and to take with food to avoid GI distress. Discussed antibiotic therapy and to take until all completed unless adverse reaction occurs - if occurs, discontinue medication and follow up with pcp/seek medical attention Pt verbalized understanding of instructions, pt awake alert oriented, resp reg unlabored, skin w/d, color appropriate for race, moves all ext well,pt encouraged to follow up with pcp Advised to seek medical attention for new/prolonged/worsening of symptoms No adverse reaction to meds given in ER noted upon discharge Awake, alert oriented, resp reg unlabored, skin w/d, pt leaving ambulatory without assist, in no apparent distress, C WRITER Audie Durand [place] 503315-02-04 20:59:33 CC: R sided jaw pain that radiates down her neck. Pain began at 9PM. Took Ibu 800mg at 2PM, applying warm/cold compress C WRITER [facility] 20:55:00 [facility] Emergency Department Note Patient Name: Mini Zhu Date of : 1990 33 year old female Treatment Room: [place] [address] Primary Care Physician: Rachelle Ackerman 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 treatment: Other (comment) WELL LOGGING OPERATOR MUD ANALYSIS treatment comments: See triage note Travel and Exposure Screening: Symptoms Does patient have any of these symptoms?: (not recorded) Exposure Screening Has patient had contact with someone with a communicable disease in the last month?: (not recorded) Diseases exposed to:: (not recorded) Is Patient ?: (not recorded) Exposure Date: (not recorded) Chief Complaint: Chief Complaint Patient presents with Jaw Problem Pain on R side History of Present Illness: Mini Zhu is a 33 year old female who presents tot he ED with right-sided jaw pain that radiates down to the neck X 1 day. Pt reports that her symptom began about 09:00 AM today. Has had similar pain in the past and was diagnosed as possibly an abscess. Pt was placed on Amoxicillin 500 mg TID x 3 days and was completed yesterday by her dentist. [facility] [place] [facility] prompting ED visit. History provided by: Patient and medical records lang interpreter used: No Dental Problem Location: Lower Lower teeth location: 32/RL 3rd molar, 31/RL 2nd molar and 30/RL 1st molar Quality: Constant and aching Severity: Severe Onset quality: Gradual Duration: 1 week Progression: Worsening Chronicity: Recurrent Context: abscess, dental caries and poor dentition Context: not trauma Previous work-up: Dental exam Relieved by: Nothing Worsened by: Cold food/drink, hot food/drink and jaw movement Ineffective treatments: NSAIDs Associated symptoms: facial swelling and gum swelling Associated symptoms: no congestion, no difficulty swallowing, no drooling, no facial pain, no fever, no headaches, no neck pain, no neck swelling, no oral bleeding, no oral lesions and no trismus Risk factors: periodontal disease Past Medical History/Immunizations: Past Medical History: Diagnosis Date Bipolar disorder Mastitis Tetanus received in last 5 years: No Allergies: Allergies Allergen Reactions Gabapentin Other - See comments Manic episodes Past Social History: Substance & Sexual Activity No substance use or sexual activity history on file. Past Surgical History: Past Surgical History: Procedure Laterality Date BREAST SURGERY TUBAL LIGATION Review of Systems: Review of Systems Constitutional: Negative. Negative for fever. HENT: Positive for dental problem and facial swelling. Negative for congestion, drooling, mouth sores, trouble swallowing and voice change. Eyes: Negative. Respiratory: Negative. Breasts: Negative. Cardiovascular: Negative. Gastrointestinal: Negative. Genitourinary: Negative. Musculoskeletal: Negative. Negative for neck pain. Skin: Negative. Neurological: Negative. Negative for headaches. Psychiatric/Behavioral: Negative. All other systems reviewed and are negative. Endocrine: Endocrine negative Physical Exam: ED Triage Vitals [11/18/24 2100] Weight 86.2 kg (190 lb) Actual or estimated Actual Height 1.575 m (5' 2") BP 132/85 Pulse 97 Resp 16 Temp 37.1 ?C (98.8 ?F) Temp source Oral SpO2 99 % Measured on Room air Physical Exam Vitals and nursing note reviewed. Constitutional: General: She is not in acute distress. Appearance: Normal appearance. She is not ill-appearing or toxic-appearing. HENT: Head: Normocephalic and atraumatic. Right Ear: Tympanic membrane, ear canal and external ear normal. Left Ear: Tympanic membrane, ear canal and external ear normal. Nose: Nose normal. No congestion or rhinorrhea. Mouth/Throat: Mouth: Mucous membranes are dry. Pharynx: Oropharynx is clear. Comments: Poor Dentition Dental caries Mild swelling lower jaw on right No trismus No drool Eyes: Extraocular Movements: Extraocular movements intact. Conjunctiva/sclera: Conjunctivae normal. Pupils: Pupils are equal, round, and reactive to light. Cardiovascular: Rate and Rhythm: Normal rate and regular rhythm. Pulses: Normal pulses. Heart sounds: Normal heart sounds. No murmur heard. Pulmonary: Effort: No respiratory distress. Breath sounds: No stridor. No wheezing, rhonchi or rales. Chest: Chest wall: No tenderness. Abdominal: General: Abdomen is flat. Bowel sounds are normal. Palpations: There is no mass. Tenderness: There is no abdominal tenderness. There is no right CVA tenderness, left CVA tenderness, guarding or rebound. Hernia: No hernia is present. Musculoskeletal: General: No swelling, tenderness, deformity or signs of injury. Cervical back: Normal range of motion. No rigidity or tenderness. Right lower leg: No edema. Left lower leg: No edema. Lymphadenopathy: Cervical: No cervical adenopathy. Skin: General: Skin is warm. Capillary Refill: Capillary refill takes less than [...] this encounter. Orders Placed This Encounter Medications HYDROcodone-acetaminophen (NORCO) 10-325 mg tablet 1 tablet amoxicillin (TRIMOX) capsule 500 mg ibuprofen 800 mg tablet amoxicillin 500 mg capsule First Provider Eval: ED Events Date/Time Event User Comments 11/18/242120 Medical Screening Begins SELENE PARRA MD -- 11/18/242120 First Provider Evaluation SELENE PARRA MD -- ED COURSE Diagnosis/Impression as of 11/18/24 2238 Dental abscess Procedures: Procedures MDM: Medical Decision Making Mini Zhu is a 33 year old female who presents to the ED with dental abscess Problems Addressed: Dental abscess: acute illness or injury Details: Pt has an appointment with her dentist for DEFINITIVE management of the dental abscess. Pt wants abx and analgesics prescribed Pt DECLINED dental block/imaging Risk OTC drugs. Prescription drug management. Flowsheet Documentation: Scoring Tools: No data recorded Disposition/Condition: ED Disposition ED Disposition Discharge Condition Stable Comment -- Discharge Medications: Patient's Medications START taking these medications AMOXICILLIN 500 MG CAPSULE Take 1 capsule by mouth in the morning and 1 capsule at noon and 1 capsule in the evening. IBUPROFEN 800 MG TABLET Take 1 tablet by mouth every 8 (eight) hours as needed for Alternate with [place] for pain scale 1-3. CONTINUE taking these medications which have NOT CHANGED ALBUTEROL 90 MCG/ACTUATION INHALER Inhale 2 Puffs every 4 (four) hours as needed for Wheezing or Shortness of Breath. AZITHROMYCIN (ZITHROMAX Z-RAMESH) 250 MG TABLET Take 2 tablets by mouth SEE-INSTRUCTIONS. Take 500 mg day 1, then 250 mg days 2 to 5. PTOPOJUCVD-IIJSAYFJLMFNB-YWVF 50-325-40 MG TABLET Take 1 tablet by mouth every 6 (six) hours as needed (Headache). GTXOJNTYIE-TUDVGVEMNUXPK-QTCJ 50-325-40 MG TABLET Take 1 tablet by mouth every 6 (six) hours as needed (Headache). CEPHALEXIN (KEFLEX) 500 MG CAPSULE Take 1 capsule by mouth in the morning and 1 capsule at noon and 1 capsule in the evening. DEXTROMETHORPHAN-GUAIFENESIN 10-100 MG/5 ML SOLUTION Take 10 mL by mouth every 6 (six) hours as needed for Cough. DICYCLOMINE 20 MG TABLET Take 1 tablet by mouth every 6 (six) hours as needed for Abdominal pain. DICYCLOMINE 20 MG TABLET Take 1 tablet by mouth every 6 (six) hours as needed for Abdominal pain. LORATADINE 10 MG TABLET Take 1 tablet by mouth at bedtime as needed for Allergies or Runny nose. LORATADINE-PSEUDOEPHEDRINE (CLARITIN-D 24 HOUR) 10-240 MG PER 24 HR TABLET Take 1 tablet by mouth in the morning. METOCLOPRAMIDE HCL 10 MG TABLET Take 1 tablet by mouth every 6 (six) hours. ONDANSETRON (ZOFRAN) 4 MG TABLET Take 1 tablet by mouth every 8 (eight) hours as needed for Nausea and Vomiting (N/V). ONDANSETRON 4 MG DISINTEGRATING TABLET Take 1 tablet by mouth every 4 (four) hours as needed for Nausea and Vomiting (N/V). PANTOPRAZOLE 40 MG EC TABLET Take 1 tablet by mouth in the morning. START taking Modified Medications as Prescribed No medications on file STOP taking these medications No medications on file Follow-up: Electronically signed by: Selene Parra MD 11/18/242237 [place] [address]71-01-25 22:45:36 ERP MSE patient [place] [address]71-01-25 22:35:26 CC: tail bone pain, began today 5PM. Patient states she was horse playing, and got kneed on the tailbone. . [facility]00 Darryl [facility]2024-11-11 00:00[facility] 10[facility]46:00 Written/verbal D/c instructions, out of er no distress, [place] [id number] 10:30:00 Pt has had no emesis since arrival [place] 073604-10-11 07:48:10 Mini Zhu is a 33 year old female c/o n/v/d since Sunday, states this morning at 0700 threw up blood, no abdominal pain, states now has a headache, alert cheerful, states hx gastritis, esophagitis and iron def anemia, ran out of pantoprazole and takes iron occasionally. States her bipolar meds aren't staying down either, Sheila Starkey [facility]6-[facility]-83 00:00:00 Darryl Arriaga [facility]2024-09-20 05:48:27 Discharge information given verbally and in writing, including of s/s of when to return to ER Patient denies questions and verbalized understanding. IV discontinued without issue. Pt ambulated off unit with steady gate, vital signs stable, no acute distress. Jovana Hooper [facility]isd4516-67-00 02:26:00 Lower abd pain since midnight, and back pain, pt states she has shingles and has been using tropical cream for tx. [facility]siymw2954-16-38 00:00:00 Darryl Arriaga [facility]2024-05-29 06:06:53 Pt given printed and verbal discharge [...] in no apparent distress. Ashly Srivastava [facility]ql[facility]xe2030-64-39 02:07:22 Pt given urine cup and placed in the lobby, pt advice to notify nurse with any other concerns or if symptoms worsen. [facility] CenterWdpdsj2280-33-83 02:02:32 C/O states that she began vomited blood X5 since midnight. 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 METABOLIC PANEL (14702) - Abnormal Result Value Ref Range NA [...] then 250 mg days 2 to 5. JYFKDIXSTD-FSMYTKPBZXFLX-XPBT 50-325-40 MG TABLET Take 1 tablet by [...] for follow-up Tommie Arita MD Specialty: IM-GASTROENTEROLOGY [facility] [id number] [place] [address] [facility] [phone] Electronically signed by: Selene Parra MD 02/03/24657 T [facility] CenterSjwspv3798-75-80 00:43:46 Pt given printed and verbal discharge [...] leaving in no apparent distress, Ashly Gibson [facility]hfgvn9195-19-36 00:31:47 Pt notified covid test was inconclusive. She refuses additional covid swabbing. She reports continuing head congestion. Dr. Marie in to see pt at this time. [facility] CenterAegqur3246-08-75 22:22:36 Pt arrived ambulatory with c/o congestion. Pt states I have bad congestion, sneezing, coughing and headache. No fever. I vomited once prior to coming to the ED." Duyen Pereira [facility]Ybbeah0755-56-82 05:22:47 Awake, alert oriented X4, respiratory even [...] noted upon discharge Pt [facility] gait Kait Seay [facility]Yzwxfi1136-71-88 03:48:35 Pt arrived with c/ migraine headache off-and-on for 7 days. Pt took Midol at 6:30pm. Pt report the Midol help for about 30 minutes then the headache came back. Pt states she has tried Ibu, tylenol, and naproxen but none of these medications have helped her migraine. Nicole Patel [facility]Elkack9093-36-81 03:43:00 [facility] Emergency Department Note Patient Name: Mini Zhu Date of : 1990 33 year old female Treatment Room: [place] [address]/[id number] Primary Care Physician: Rachelle Ackerman 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 treatment: None Travel and Exposure Screening: Symptoms [...] History provided by: Patient and medical records lang interpreter used: No Headache Pain location: Frontal Quality: [...] this encounter. Orders Placed This Encounter Medications bpvpxjizjo-nkclcmdkqfdhv-srev (ESGIC) 50-325-40 mg tablet 1 tablet First Provider Eval: ED Events Date/Time Event User Comments 12/26/23 0355 Medical Screening Begins SELENE PARRA MD -- [...] file Follow-up: Contact information for follow-up Darryl [facility], [facility] Relationship: PCP - General [address] [place] [phone] Demetrio Stout MD Specialty: PN-NEUROLOGY [facility] [address] [place] [phone] Electronically signed by: Selene Parra MD 12/26/23439 [facility] CenterYnrbgo0195-99-73 10:50:14 Patient discharged home. Follow up with pcp in 2-3 days. Return with worsening symptoms. Verbalized dc instructions. Signed paper work. Davis RNUniversity Hospitals Ahuja Medical CenterIojekx5599-82-96 06:42:12 Bilateral lower abdominal pain on and off for month. Pain started this morning at 1230 and hasn't stopped. Saw by OB, US ordered pt unable to pay for it. Was instructed to got to ER if got worse. Vomited 3 time this am . [facility] Maliha Paniagua [place] 503314-01-29 01:09:27 Pt given printed and verbal discharge [...] steady gait, in no apparent distress. Peraza [place] 503314-01-29 00:35:00 PO challenge completed. Patient tolerating water and crackers. [place] 625084-01-29 00:06:08 Patient arrived ambulatory to ED c/o vomiting. Patient states vomiting up her dinner and then vomiting "bright red chunks." Diarrhea x a couple of days. No medications taken WELL LOGGING OPERATOR MUD ANALYSIS. Keen [place] 503314-01-29 00:03:00 [facility] Emergency Department Note Patient Name: Mini Zhu Date of : 1990 32 year old female Treatment Room: Room/bed info not found Primary Care Physician: Rachelle Ackerman 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 treatment: None Travel and Exposure Screening: Symptoms [...] 200 mg capsule Comments: Reason for Stopping: tciohkjumr-wkwnxepxhzcfc-bxtj 50-325-40 mg tablet Comments: Reason for Stopping: megestroL 40 mg tablet Comments: Reason for Stopping: tamsulosin 0.4 mg 24 hr capsule Comments: Reason for Stopping: ketorolac 10 mg tablet Comments: Reason for Stopping: Follow-up: Electronically signed by: Chayo Srivastava DO 11/12/23 0104 [facility]2024-01-13 20:56:44 Pt discharged home, given all education and information regarding s/s of worsening condition; prescription use; pain and fever management as well as the importance of follow up. Pt verbalized understanding. Alert and ambulatory to pov with family. Felix RNUniversity Hospitals Ahuja Medical CenterFtouic6279-25-97 20:24:32 Pt arrived ambulatory with complaints of viral symptoms x2 days. Pt is positive and she took home test today and is positive too. Pt was concerned because her fever was 101 and her husbands only hit 100f. Pt has n/v but hasn't taken her Zofran. Peraza [facility] HealthMxsobj0505-93-70 06:48:38 Prescriptions provided Pt verbalized understanding of [...] with steady gait, in no apparent distress. [facility] CenterPlztaf0989-97-44 05:26:28 Pt arrives ambulatory to ED c/o left sided lower abdominal pain. She reports that she came in last week and was found to have multiple gynecological issues and was given multiple prescriptions which she says has not helped her pain issue. LMP: 06/12/2023 Ashly Srivastava [facility] - Ovbbei3427-63-19 05:14:00 [facility] Emergency Department Note Patient Name: Mini Zhu Date of : 1990 32 year old female Treatment Room: [facility] [id number] Primary Care Physician: Rachelle Ackerman 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 treatment: None Travel and Exposure Screening: Symptoms [...] by: Patient, medical records and significant other lang interpreter used: No Abdominal Pain Pain location: LLQ [...] negative Physical Exam: ED Triage Vitals [06/24/23 05] Weight 89.8 kg (198 lb) Actual or [...] on file. ED COURSE Diagnosis/Impression as of 06/24/23632 Left sacral radiculopathy Procedures: Procedures MDM: Medical [...] (three) times daily as needed for Cough. YNVYAQIHER-AHDPFESJSISSO-ECEV 50-325-40 MG TABLET Take 1 tablet by [...] Rebolledo MD Specialty: ORT-ORTHOPAEDIC SURGERY [address] [facility] [phone] Electronically signed by: Selene Parra MD 06/24/2333 [facility] - Ngpfhz9556-36-53 01:30:00 Awake, alert oriented X4, respiratory even [...] ambulated to the lobby with steady gait [facility] CenterQqcdqq9453-22-76 23:50:11 C/O head congestion, chest congestion, body aches, sore throat since last Sunday, pt denies any fever. Kait Seay RNUniversity Hospitals Ahuja Medical CenterNmayab3489-92-61 23:45:00 [facility] Emergency Department Note Patient Name: Mini Zhu Date of : 1990 32 year old female Treatment Room: Room/bed info not found Primary Care Physician: Rachelle Ackerman 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 treatment: None Travel and Exposure Screening: Symptoms [...] clinic, negative x2. Recent encounters: 1. 06/11/23. [facility] ED. Pelvic pain. PID prophylaxis in ED. US Pelvis, fibroid, right ovarian cyst, notorsion, thickened endometrium 2. 06/11/23. [facility]. After ED encounter. Previously scheduled appointment. Trichomonas. [...] User Comments 06/17/232347 Medical Screening Begins MICHELLE ETRRY MD -- 06/17/232347 First Provider Evaluation MICHELLE [...] taking these medications which have NOT CHANGED TFHXCJPAMX-NIGMMBHZOQBBE-CPEG 50-325-40 MG TABLET Take 1 tablet by [...] signed by: Michelle Terry MD 06/18/23112 T [facility] - Snowff0458-34-07 04:46:51 Pt given printed and verbal discharge [...] no apparent distress, accompanied by her . [facility] CenterJylvei2515-86-79 23:09:00 Patient states: "I've been having suprapubic pain for about a week now, worst was since . 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 I took Midol an hour ago for my painbut no relief." Yenny Blevins RNUniversity Hospitals Ahuja Medical CenterUjmcib9881-75-68 23:06:00 [facility] ED Transfer of Care Note. Off-going Physician:ANGELES [...] components within normal limits COMP. METABOLIC PANEL (70513) - Abnormal; Notable for the following components: [...] Severe endometrial thickening measuring 2.5 cm. AFC: 00134 RL: 460 End of report. Additional Notes: Diagnosis/Impression as of 06/12/23 0432 Pelvic pain Right ovarian cyst Intramural leiomyoma of uterus - (Uterine Fibroid) Endometrial hyperplasia Chronic anemia Medical Decision Making Mini Zhu is a 32 year old female whopresents to the ED with pelvic pain Problems Addressed: Chronic anemia: chronic illness or injury Endometrial hyperplasia: chronic illness or injury Details: Will need CHIEF CONTROLLER TOWER follow-up Pt appropriately referred to OB-HAND STEMMER Intramural leiomyoma of uterus: chronic illness or injury Details: Will need CHIEF CONTROLLER TOWER follow-up Right ovarian cyst: chronic illness or [...] Aysha Chandra MD Specialty: OG-OBSTETRICS & GYNECOLOGY [facility] [address] [place] [address] DR. [place] [facility] [address] Selene Parra MD 06/12/23 0432 [place] 073603-08-14 04:02:21 Pt given printed and verbal discharge [...] with steady gait, in no apparent distress. [place] 073603-08-14 01:27:07 Pt vomited approx 200ml of water and bile. No blood noted. [place] 073603-08-14 00:35:04 Pt arrived ambulatory with complaints of one episode of vomiting blood. Pt reports she became nauseated and at first threw up bile but then threw up dark red blood. Pt denies dark stools or excessiveNSAID use. Pt has been having intermittent abdominal pain for a week. Hx: Migraines, Bipolar, Anemia Cora Peraza [facility]
[2024-12-12] MEDS ORDERED: ACETAMINOPHEN 500 MG TAB ONE (18:15)
[2024-12-12] MEDS ORDERED: IBUPROFEN 400 MG TAB ONE (18:21)
[2024-12-12 18:51] LABS: Influenza A Ag Positive; Influenza B Ag Negative; SARS-CoV-2 Antigen Rapid Res Negative (Negative)
--- NOTE | 2024-12-12 19:52 | EDPHYS ---
Physician Documentation [facility] Name: Judith Tobar Age: 34 yrs Sex: Female : 1990 Arrival Date: 12/12/2024 Time: 17:49 Bed 11 Private MD: ED Physician Peter Marie HPI: 12/12 18:20 This 34 yrs old Female presents to ER via Ambulatory with complaints of Flu Symptoms, cp Fever, Congestion. 18:20 The patient reports fever, with an emergency department temperature of 102.1 degrees cp Fahrenheit. 18:20 Onset: The symptoms/episode began/occurred this morning. Associated signs and symptoms: cp Pertinent positives: cough, sore throat, fever, body aches. Severity of symptoms: in the emergency department the symptoms are unchanged despite home interventions. BILLING REP: 19:59 LMP N/A - Irregular menses, Not me1 Historical: - Allergies: 18:17 No Known Allergies; cm10 - PMHx: 18:17 Anemia; Anxiety; Bipolar disorder; insommnia; cm10 - PSHx: 18:17 breast surgery due to mastitis; tubal; cm10 - Immunization history:: Adult Immunizations up to date. - Infectious Disease History:: Denies. - Social history:: Smoking status: Patient denies any tobacco usage or history of. ROS: 18:25 Constitutional: Positive for body aches, chills, fever, cp 18:25 Eyes: Negative for injury, pain, redness, and discharge, cp 18:25 ENT: Positive for sore throat, 18:25 Cardiovascular: Negative for chest pain, 18:25 Respiratory: Positive for cough, Negative for shortness of breath, wheezing, 18:25 Abdomen/GI: Negative for abdominal pain, vomiting, diarrhea, constipation, 18:25 Neuro: Negative for altered mental status, 18:25 All other systems are negative, Exam: 18:30 Constitutional: The patient appears in no acute distress, alert, awake, non-toxic, well cp developed, well nourished, febrile, 18:30 Head/Face: Normocephalic, atraumatic. cp 18:30 Eyes: Periorbital structures: appear normal, Conjunctiva: normal, no exudate, no injection, Sclera: no appreciated abnormality, Lids and lashes: appear normal, bilaterally, 18:30 ENT: External ear(s): are unremarkable, Nose: is normal, Mouth: Lips: moist, Oral mucosa: moist, Posterior pharynx: Airway: no evidence of obstruction, patent, Tonsils: with erythema, no enlargement, no exudate, erythema, that is moderate, exudate, is not appreciated, 18:30 Neck: ROM/movement: Meningeal signs: are not present, nuchal rigidity, is not appreciated, 18:30 Chest/axilla: Inspection: normal, 18:30 Cardiovascular: Rate: tachycardic, Rhythm: regular, 18:30 Respiratory: the patient does not display signs of respiratory distress, Respirations: normal, no use of accessory muscles, no retractions, labored breathing, is not present, Breath sounds: are clear throughout, no decreased breath sounds, no stridor, no wheezing, 18:30 Abdomen/GI: Exam negative for discomfort, distension, guarding, Inspection: abdomen appears normal, 18:30 Neuro: Orientation: to person, place \T\ time. Mentation: is normal, Motor: moves all fours, strength is normal, Vital Signs: 18:16 BP 112 / 83; Pulse 145; Resp 19; Temp 102.1(O); Pulse Ox 97% on R/A; Weight 83.91 kg; cm10 Height 5 ft. 2 in. ; Pain 10/10; 19:30 BP 110 / 79; Pulse 106; Resp 17; Temp 99.9; Pulse Ox 98% ; me1 18:16 Body Mass Index 33.84 (83.91 kg, 157.48 cm) cm10 18:16 Pain Scale: Adult cm10 MDM: 18:26 Medical Screening Exam initiated 18:33 Differential diagnosis: viral Infection, bacterial infection, URI, bronchitis, cp pneumonia UTI, meningitis, influenza, COVID-19, strep throat. 19:50 Data reviewed: vital signs, nurses notes, lab test result(s), and as a result, I will cp discharge patient. 19:50 I considered the following discharge prescriptions or medication management in the emergency department Medications were administered in the Emergency Department. See MAR. Counseling: I had a detailed discussion with the patient and/or guardian regarding the historical points, exam findings, and any diagnostic results supporting the discharge/admit diagnosis, lab results, to return to the emergency department if symptoms worsen or persist or if there are any questions or concerns that arise at home. Response to treatment: the patient's symptoms have markedly improved after treatment, and as a result, I will discharge patient. 12/12 18:13 Order name: Group A Streptococcus Rapid; Complete Time: 19:02 12/12 18:13 Order name: COVID-19 Ag + Flu A+B Ag; Complete Time: 19:02 cp 12/12 19:02 Interpretation: Normal except: INFLU A AG Positive. 12/12 18:53 Order name: Throat Culture EDAL 12/12 19:30 Order name: Vital Signs: please update; Complete Time: 19:56 cp Administered Medications: 18:24 Drug: Acetaminophen PO 1000 mg PO once Route: PO; me1 19:39 Follow up: Response: No adverse reaction; Temperature is decreased me1 18:28 Drug: Ibuprofen PO 800 mg PO once Route: PO; me1 19:39 Follow up: Response: No adverse reaction; Temperature is decreased me1 Disposition Summary: 12/12/24 19:51 Discharge Ordered Notes: Location: Home cp Problem: new cp Symptoms: have improved cp Condition: Stable cp Diagnosis - Influenza due to identified novel influenza A virus with other respiratory cp manifestations Followup: cp - With: Private Physician - When: 2 - 3 days - Reason: Worsening of condition Discharge Instructions: - Discharge Summary Sheet cp - Influenza, Adult cp - Influenza Tests cp Forms: - Medication Reconciliation Form cp - Antibiotic Education cp - Prescription Opioid Use cp - Patient Portal Instructions cp - Leadership Thank You Letter cp Prescriptions: - Bromfed DM 2-30-10 mg/5 mL Oral syrup - administer 10 milliliter ORAL route every 6 hours as needed for cold symptoms; cp 240 milliliter; Refills: 0, Product Selection Permitted - Ibuprofen 800 mg Oral Tablet - take 1 tablet ORAL route every 8 hours As needed take with food; 30 tablet; cp Refills: 0, Product Selection Permitted - Tamiflu 75 mg Oral Capsule - take 1 capsule ORAL route every 12 hours for 5 days; 10 capsule; Refills: 0, cp Product Selection Permitted Signatures: Dispatcher [employer] EDAL Dick Driscoll PA PA cp Martinez, Clarissa, RN RN cm10 Betzy Meyer RN RN me1 Corrections: (The following items were deleted from the chart) 12/13 12:55 12:54 Constitutional: Positive for body aches, chills, fever, cp cp
--- NOTE | 2024-12-12 19:52 | ER ---
Nurse's Notes [facility] Name: Judith Tobar Age: 34 yrs Sex: Female : 1990 Arrival Date: 12/12/2024 Time: 17:49 Bed 11 Private MD: Diagnosis: Influenza due to identified novel influenza A virus with other respiratory manifestations Presentation: 12/12 18:16 Chief complaint: Patient states: Cough, congestion, fever, and chills onset this cm10 morning. Coronavirus screen: Client denies travel out of the [place] in the last 14 days. Ebola Screen: Patient denies travel to an Ebola-affected area in the 21 days before illness onset. Initial Sepsis Screen: Does the patient meet any 2 criteria? Temp <36.0*C (96.8*F)) or > 38.3*C (100.9*F). HR > 90 bpm. Yes Does the patient have a suspected source of infection? No. Patient's initial sepsis screen is negative. Risk Assessment: Do you want to hurt yourself or someone else? Patient reports no desire to harm self or others. Onset of symptoms was December 12, 2024. 18:16 Method Of Arrival: Ambulatory cm10 18:16 Acuity: SHABBIR 3 cm10 Triage Assessment: 18:18 General: Appears in no apparent distress. uncomfortable, Behavior is calm, cooperative. cm10 Neuro: Level of Consciousness is awake, alert, obeys commands, Oriented to person, place, time, situation, Appropriate for age. Respiratory: No deficits noted. Airway is patent Respiratory effort is even, unlabored, Respiratory pattern is regular, symmetrical. [employer]: 19:59 LMP N/A - Irregular menses, Not me1 Historical: - Allergies: 18:17 No Known Allergies; cm10 - PMHx: 18:17 Anemia; Anxiety; Bipolar disorder; insommnia; cm10 - PSHx: 18:17 breast surgery due to mastitis; tubal; cm10 - Immunization history:: Adult Immunizations up to date. - Infectious Disease History:: Denies. - Social history:: Smoking status: Patient denies any tobacco usage or history of. Screenin:11 [facility] ED Fall Risk Assessment (Adult) History of falling in the last 3 months, me1 including since admission No falls in past 3 months (0 pts) Confusion or Disorientation No (0 pts) Intoxicated or Sedated No (0 pts) Impaired Gait No (0 pts) Mobility Assist Device Used No (0 pt) Altered Elimination No (0 pt) Score/Fall Risk Level 0 - 2 = Low Risk Maintained a safe environment, Provided non-skid footwear, Hourly rounding (assess needs \T\ fall precautionary measures) done. Abuse screen: Denies threats or abuse. Nutritional screening: No deficits noted. Tuberculosis screening: No symptoms or risk factors identified. Assessment: 19:11 General: Appears uncomfortable, ill, well groomed, well developed, well nourished, me1 Behavior is calm, cooperative, appropriate for age, Reports Cough, congestion, fever, and chills onset this morning. Pain: Denies pain. Neuro: Level of Consciousness is awake, alert, obeys commands, Oriented to person, place, time, situation, Appropriate for age. Cardiovascular: Patient's skin is warm and dry. Respiratory: Reports cough that is Breath sounds are clear bilaterally. Respiratory: Airway is patent Respiratory effort is even, unlabored, Respiratory pattern is regular, symmetrical. GI: No signs and/or symptoms were reported involving the gastrointestinal system. : No signs and/or symptoms were reported regarding the genitourinary system. EENT: Reports pain when swallowing. EENT: Reports nasal congestion. Derm: Skin is intact, is healthy with good turgor, Skin is pink, warm \T\ dry. Musculoskeletal: No signs and/or symptoms reported regarding the musculoskeletal system. Vital Signs: 18:16 BP 112 / 83; Pulse 145; Resp 19; Temp 102.1(O); Pulse Ox 97% on R/A; Weight 83.91 kg; cm10 Height 5 ft. 2 in. ; Pain 10/10; 19:30 BP 110 / 79; Pulse 106; Resp 17; Temp 99.9; Pulse Ox 98% ; me1 18:16 Body Mass Index 33.84 (83.91 kg, 157.48 cm) cm10 18:16 Pain Scale: Adult cm10 ED Course: 17:59 Patient arrived in ED. gm2 18:02 Dick Driscoll PA is PHCP. cp 18:02 Peter Marie MD is Attending Physician. cp 18:17 Triage completed. cm10 18:18 Betzy Meyer, RN is Primary Nurse. me1 18:18 Arm band placed on right wrist. Patient placed in an exam room, on a stretcher. cm10 18:24 COVID-19 Ag + Flu A+B Ag Sent. me1 18:24 RSV Ag Sent. me1 18:24 Group A Streptococcus Rapid Sent. me1 19:11 Patient has correct armband on for positive identification. Bed in low position. Call ks1 light in reach. Side rails up X2. Provided Education on: POC. Verbalized understanding.. 19:11 No provider procedures requiring assistance completed. me1 19:59 Patient did not have IV access during this emergency room visit. me1 Administered Medications: 18:24 Drug: Acetaminophen PO 1000 mg PO once Route: PO; me1 19:39 Follow up: Response: No adverse reaction; Temperature is decreased me1 18:28 Drug: Ibuprofen PO 800 mg PO once Route: PO; me1 19:39 Follow up: Response: No adverse reaction; Temperature is decreased me1 Medication: 19:11 VIS not applicable for this client. ks1 Outcome: 19:51 Discharge ordered by MD. cp 19:59 Discharged to home ambulatory, with significant other, ks1 19:59 Condition: stable 19:59 Discharge instructions given to patient, significant other, Instructed on discharge instructions, follow up and referral plans. medication usage, Demonstrated understanding of instructions, follow-up care, medications, Prescriptions given X 3, 20:00 Patient left the ED. me1 Signatures: Dick Driscoll PA PA cp Martinez, Clarissa, RN RN cm10 Betzy Meyer, RN RN ks1 Anahi Karimi 2 Corrections: (The following items were deleted from the chart) 19:04 18:16 Chief complaint: Patient states: Cough, congestion, fever, and chills onset this ks1 morning. cm10
[2024-12-12 20:41] VITALS: BP 110/79; TEMP 99.9; O2SAT 98
== END 2024-12-12 20:00 | disposition home or self-care (01) ==
LOC: ER 17:49
DX: J10.1 Influenza due to other identified influenza virus with other respiratory manifestations (principal); Z11.52 Encounter for screening for COVID-19
CPT/HCPCS: 36415; 87070; 87428; 99284

== ENCOUNTER 2025-03-09 14:30 | Emergency (ER) | payer SELFPAY ==
--- OUTSIDE RECORDS SUMMARY | 2025-03-09 14:41 | XMS REPORT | Continuity of Care Document ---
Author Name Unknown Address [address] [facility] [address] [place] [address] [facility] [place] Address [address] [facility] [place] [address] Care Team Providers Care Splitting Machine Feeder Name Role Phone Lira TRANSFORMATION LEAD, Ashley Primary Care Physician Doni Marie MD Attending Clinician [phone] Attending Clinician Unavailable Kaye House MD Attending Clinician [phone] PATRICE HOLLAND Attending Clinician Unavailab Patrice Nevarez MD Attending Clinician [phone] SELENE PARRA Attending Clinician Unavailable SELENE PARRA Attending Clinician Unavailable Selene Parra MD Attending Clinician [phone] DONI MARIE Attending Clinician Unavailable DONI MARIE Attending Clinician Unavailable Hermilo Ricks DO Attending Clinician +[phone] GABY TERRY Attending Clinician Unavailab Gaby Liriano NP Attending Clinician [phone] CHRISTY RG Attending Clinician Unavailable CHRISTY RG Attending Clinician Unavailable Christy Rg NP Attending Clinician [phone] CHAYO SRIVASTAVA Attending Clinician Unavailab Chayo Davis DO Attending Clinician [phone] Kavita OJEDA Attending Clinician Unavailable Kavita Young Attending Clinician [phone] Rama CURRAN, Danie Ackerman Attending Clinician [phone] MEMO RESENDIZ Attending Clinician Unavailable Memo Resendiz MD Attending Clinician +[phone] DANII ARRIAGA Attending Clinician Unavailable Rose Hoff MD Attending Clinician [phone] Danii Ferrer Attending Clinician [phone] MICHELLE TERRY Attending Clinician UnavailMichelle Evans MD Attending Clinician + [phone] RAVEN LIEBERMAN Attending Clinician Unavailable Raven Gutiérrez S Attending Clinician [phone] Doctor Unassigned, [place] Attending Clinician U HERMILO Campbell Attending Clinician Unavailable Hermilo Ricks DO Attending Clinician [phone] SURAJ SCOTT Attending Clinician UnavailSuraj Kee MD Attending Clinician + [phone] CAT RUTLEDGE Attending Clinician Unavailable LISA TRAN Attending Clinician Unavailable Lisa Cruz Attending Clinician + [phone] CL GATES Attending Clinician Unavailable ROCHELLE GOLD Attending Clinician Unavailable SELENE PARRA Admitting Clinician Unavailable HERMILO RICKS Admitting Clinician Unavailable DONI MARIE Admitting Clinician Unavailable SELENE PARRA Admitting Clinician Unavailable DONI MARIE Admitting Clinician Unavailable DANIE ONTIVEROS Admitting Clinician UnavailDANII Arguello Admitting Clinician Unavailable GOLDEN LIEBERMANYA S Admitting Clinician Unavailable SURAJ SCOTT Admitting Clinician UnavailCAT Mars Admitting Clinician Unavailable CHRISTY RG Admitting Clinician Unavailable Payers Payer Name Policy Type Policy Number Effective Date Expirati on Date Source [facility] [id number] 2023 00:00:00 Problems Condition Name Condition Details Condition Category Status Onset Date Resolution Date Last Treatment Date Treating Clinician Comments Source Acute nonintract able headache, unspecifie d headache type Acute nonintract able headache, unspecifie d headache type Disease Active 3-06 00:00: 00 [facility] Other migraine without status migrainosu s, not intractabl e Other migraine without status migrainosu s, not intractabl e Disease Active 3- 00:00: 00 [facility] Lower abdominal pain Lower abdominal pain Disease Active 1-10 00:00: 00 [facility] Ureterolit hiasis Ureterolit hiasis Disease Active 8 00:00: 00 [facility] No known active problems No known active problems Disease [facility] Allergies, Adverse Reactions, Alerts Allergy Name Allergy Type Status Severity Reaction(s) Onset Date Inactive Date Treating Clinician Comments Source BUSPIRON E DRUG INGREDI Active Other-Cmnt 3 00:00: 00 [facility] Buspiron e Propensi ty to adverse reaction s Active Other - See comments 12-17 00:00: 00 Gives SI thoughts [facility] GABAPENT IN DRUG INGREDI Active Other-Cmnt 2022-10 0-20 00:00: 00 [facility] Gabapent in Propensi ty to adverse reaction s Active Other - See comments 2022-10 0 00:00: 00 Manic episodes [facility] NO KNOWN ALLERGIE S Drug Class Active [facility] Social History Social Habit Start Date Stop Date Quantity Comments Source ASSERTION Possible [facility] Gender identity [facility] Sexual orientation U [facility] History of Social function 2025-02-04 00:00:00 2025-02-04 00:00:00 [facility] Exposure to SARS-CoV-2 (event) 2023-02-24 00:00:00 2023-03-06 22:59:00 Not sure [facility] Sex assigned at 1990 00:00:00 1990 00:00:00 [facility] Smoking Status Start Date Stop Date Source Tobacco smoking consumption unknown [facility] Medications Ordered Medication Name Filled Medication Name Start Date Stop Date Current Medication? Ordering Clinician Indication Dosage Frequency Signature (SIG) Comments Components Source NaCl 0.9% (NS) bolus infusion 1,000 mL 03-09 06:30: 00 03-09 07:43 :00 No 1000mL at 999 mL/hr, 1,000 mL, IV Infusion, ONCE, 1 dose, On Sun03/09/25 at 0130, STAT [facility] methylpredn isolone sod succ (SOLU-MEDRO L) injection 125 mg 03-09 06:30: 00 03-09 05:37 :00 No 125mg 125 mg, Slow IV Push, ONCE NOW, 1 dose, On Sun03/09/25 at 0130, NICOLASA [facility] magnesium sulfate in D5W 1 gram/100 mL RTU IV Piggyback 1 g 03-09 06:30: 00 03-09 06:39 :00 No 1g 1 g, IV Piggyback, ONCE, 1 dose, On Sun03/09/25 at 0130, Administer over 60 Minutes, 100 mL [facility] ondansetron (ZOFRAN (PF)) injection 4 mg 03-09 04:00: 00 03-09 03:15 :00 No 4mg 4 mg, Slow IV Push, ONCE, 1 dose, On Sun03/08/25 at 2300, 2 mL [facility] ketorolac (TORADOL) injection 30 mg 03-09 04:00: 00 03-09 03:16 :00 No 30mg 30 mg, Slow IV Push, ONCE, 1 dose, [facility] mg caffeine tablet 200 mg 03-09 03:00: 00 03-09 03:31 :00 Yes 200mg 200 mg, Oral, Once, 1 dose, On Sun03/08/25 at 2200, NICOLASA [facility] diphenhydrA MINE (BENADRYL) injection 25 mg 03-09 03:00: 00 03-09 03:16 :00 No 25mg 25 mg, Slow IV Push, ONCE, 1 dose, On Sun03/08/25 at 2200, STAT [facility] SUMAtriptan 50 mg tablet 03-09 00:00: 00 Yes [id number] 50mg Take 1 tablet by mouth 3 times daily as needed for Migraine. [facility] Lidocaine (LIDOCARE) 4 % patch 1 Patch 01-27 18:30: 00 01-28 06:29 :00 Yes 1{patch } 1 Patch, Topical, Administer over 12 Hours, ONCE, 1 dose, On Sun01/27/25 at 1330, Routine [facility] ketorolac (TORADOL) injection 30 mg 01-27 18:15: 00 01-27 17:57 :00 No 30mg 30 mg, Slow IV Push, ONCE, 1 dose, On Sun01/27/25 at 1315, Routine [facility] methocarbam oL (ROBAXIN) tablet 1,000 mg 01-27 17:45: 00 01-27 17:52 :00 No 1000mg 1,000 mg, Oral, ONCE, 1 dose, On Sun01/27/25 at 1245, NICOLASA [facility] diphenhydrA MINE (BENADRYL) injection 12.5 mg 01-27 17:45: 00 01-27 17:55 :00 No 12.5mg 12.5 mg, Slow IV Push, ONCE, 1 dose, On Sun01/27/25 at 1245, STAT [facility] metoclopram farzana HCl (REGLAN) injection 10 mg 01-27 17:45: 00 01-27 17:57 :00 No 10mg 10 mg, Slow IV Push, ONCE, 1 dose, [facility]27/25 [facility] 1245[facility] 500 mg tablet 01-27 00:00: 02-04 00:00 :00 No [id number] 500mg Take 1 tablet by mouth 4 (four) times daily for 10 days. [facility] methylPREDN ISolone 4 mg tablets 01-27 00:00: 00 02-04 00:00 :00 No [id number] 4 Take by mouth SEE-INSTRU CTIONS. follow package directions [facility] lidocaine 5 % (700 mg/patch) patch 01-27 00:00: 00 02-04 00:00 :00 No [id number] 1{patch } Apply 1 Patch to area(s) in the morning for 30 doses. [facility] iopamidol (ISOVUE 370-500 mL) injection 85 mL 01-17 09:30: 00 01-17 09:30 :00 Yes [id number] 85mL 85 mL, Intravenou s, ONCE, 1 dose, On 01/17/25 at 0430, Routine [facility] ketorolac (TORADOL) injection 30 mg 01-17 09:15: 00 01-17 08:15 :00 No 30mg 30 mg, Slow IV Push, ONCE, 1 dose, On 01/17/25 at 0415, Routine [facility] diphenhydrA MINE (BENADRYL) injection 25 mg 01-17 08:15: 00 01-17 08:16 :00 No 25mg 25 mg, Slow IV Push, ONCE, 1 dose, On 01/17/25 at 0315, STAT [facility] metoclopram farzana HCl (REGLAN) injection 10 mg 01-17 08:15: 00 01-17 08:16 :00 No 10mg 10 mg, Slow IV Push, ONCE, 1 dose, On 01/17/25 at 0315, NICOLASA [facility] Nitrofurant oin&Nit. Macrocryst (MACROBID) 100 mg capsule 01-17 00:00: 00 02-04 00:00 :00 No [id number] 100mg Take 1 capsule by mouth in the morning and 1 capsule in the evening. [facility] iopamidol (ISOVUE 370-500 mL) injection 85 mL 01-05 13:15: 00 01-05 13:15 :00 No [id number] 85mL 85 mL, Intravenou s, ONCE, 1 dose, On Sun01/05/25 at 0815, Routine [facility] NaCl 0.9% (NS) bolus infusion 1,000 mL 01-05 12:00: 00 01-05 14:39 :00 No 1000mL at 999 mL/hr, 1,000 mL, IV Piggyback, ONCE, 1 dose, On Sun01/05/25 at 0700, STAT [facility] NaCl 0.9% (NS) bolus infusion 1,000 mL 01-05 11:15: 00 01-05 10:56 :00 No 1000mL at 999 mL/hr, 1,000 mL, IV Piggyback, ONCE, 1 dose, On Sun01/05/25 at 0615, STAT [facility] ondansetron (ZOFRAN (PF)) injection 4 mg 01-05 11:00: 00 01-05 10:58 :00 No 4mg 4 mg, Slow IV Push, ONCE, 1 dose, On Sun01/05/25 at 0600, Administer over 2-5 Minutes, 2 mL [facility] butalbital- acetaminoph en-caff (ESGIC) 50-325-40 mg tablet 1 tablet 12-18 06:00: 00 12-18 06:24 :00 No 1{tbl} 1 tablet, Oral, ONCE, 1 dose, On Sun12/18/24 at 0000, NICOLASA [facility] diphenhydrA MINE (BENADRYL) injection 25 mg 12-18 06:00: 00 12-18 06:24 :00 No 25mg 25 mg, Slow IV Push, ONCE, 1 dose, On Sun12/18/24 at 0000, STAT [facility] metoclopram farzana HCl (REGLAN) injection 10 mg 12-18 06:00: 00 12-18 06:24 :00 No 10mg 10 mg, Slow IV Push, ONCE, 1 dose, On Sun12/18/24 at 0000, NICOLASA [facility] metoclopram farzana 10 mg tablet 3-06 00:00: 00 Yes 1mg Darryl Waggoner pantoprazol e 40 mg tablet,renny yed release 11-27 00:00: 00 Yes 1mg Darryl Waggoner ondansetron 8 mg disintegrat ing tablet 11-27 00:00: 00 Yes 1mg Darryl Waggoner HYDROcodone -acetaminop hen (NORCO) 10-325 mg tablet 1 tablet 11-19 05:30: 00 11-19 04:43 :00 No 1{tbl} 1 tablet, Oral, ONCE NOW, 1 dose, On Sun11/18/24 at 2330, Routine [facility] amoxicillin (TRIMOX) capsule 500 mg 2-05 04:30: 00 11-19 04:43 :00 No 500mg 500 mg, Oral, ONCE, 1 dose, On Sun11/18/24 at 2230, NICOLASA, Reason for Anti-Infec tive: Documented Infection, Documented Infection Site: HEENT, Duration of Therapy: Once (ED) [facility] ibuprofen 800 mg tablet 2- 00:00: 00 02-04 00:00 :00 No [id number] 800mg Take 1 tablet by mouth every 8 (eight) hours as needed for Alternate with Matlock for pain scale 1-3. [facility] amoxicillin 500 mg capsule 2-04 00:00: 00 02-04 00:00 :00 No [id number] 500mg Take 1 capsule by mouth in the morning and 1 capsule at noon and 1 capsule in the evening. [facility] Bromfed DM 2 mg-30 mg-10 mg/5 mL oral syrup 1-08 00:00: 00 Yes 10mg/5 mL Darryl Tyron Edilson metoclopram farzana HCl (REGLAN) injection 10 mg 2023-10 13:15: 00 07-25 13:23 :00 No 10mg 10 mg, Slow IV Push, ONCE, 1 dose, On Sun07/25/24 at 0815, NICOLASA [facility] pantoprazol e 40 mg EC tablet 2023-10 00:00: 00 Yes [id number] 40mg Take 1 tablet by mouth in the morning. [facility] metoclopram farzana HCl 10 mg tablet 2023-10 00:00: 00 02-04 00:00 :00 No [id number] 10mg Take 1 tablet by mouth every 6 (six) hours. [facility] iopamidol (ISOVUE 370-500 mL) injection 85 mL 07-04 09:45: 00 07-04 09:45 :00 No [id number] 85mL 85 mL, Intravenou s, ONCE, 1 dose, On Sun07/04/24 at 0445, Routine [facility] ketorolac (TORADOL) injection 30 mg 07-04 09:15: 00 07-04 08:27 :00 No 30mg 30 mg, Slow IV Push, ONCE, 1 dose, On Sun07/04/24 at 0415, Routine [facility] Lidocaine Viscous 2 % mucosal solution 03-18 00:00: 00 Yes % Darryl Waggoner Carafate 100 mg/mL oral suspension 03-18 00:00: 00 Yes mg/mL Darryl Waggoner 16.2 mg-0.1037 mg-0.0194 mg/5 mL oral elixir 03-18 00:00: 00 Yes -0.0194 mg/5 mL Darryl Waggoner metoclopram farzana HCl (REGLAN) injection 10 mg 03-12 10:45: 00 03-12 10:52 :00 No 10mg 10 mg, Slow IV Push, ONCE, 1 dose, On Sun03/12/24 at 0545, NICOLASA [facility] butalbital- acetaminoph en-caff (ESGIC) 50-325-40 mg tablet 1 tablet 03-12 10:45: 00 03-12 10:51 :00 No 1{tbl} 1 tablet, Oral, ONCE, 1 dose, On Sun03/12/24 at 0545, [facility]A [facility] (ISOVUE 370-500 mL) injection 100 mL 03-12 10:15: 00 03-12 10:15 :00 No [id number] 100mL 100 mL, Intravenou s, ONCE, 1 dose, On Sun03/12/24 at 0515, Routine [facility] ketorolac (TORADOL) injection 30 mg 03-12 10:00: 00 03-12 09:01 :00 No 30mg 30 mg, Slow IV Push, ONCE, 1 dose, On Sun03/12/24 at 0500, Routine [facility] NaCl 0.9% (NS) IV infusion 1,000 mL 03-12 09:45: 00 03-12 10:39 :00 No 1000mL at 999 mL/hr, Intravenou s, ONCE, 1 dose, On Sun03/12/24 at 0445, Routine [facility] ondansetron (ZOFRAN (PF)) injection 4 mg 03-12 09:00: 00 03-12 09:01 :00 No 4mg 4 mg, Slow IV Push, ONCE, 1 dose, On Sun03/12/24 at 0400, NICOLASA [facility] butalbital- acetaminoph en-caff 50-325-40 mg tablet 03-12 00:00: 00 02-04 00:00 :00 No [id number] 1{tbl} Take 1 tablet by mouth every 6 (six) hours as needed (Headache) . [facility] dicyclomine 20 mg tablet 03-12 00:00: 00 02-04 00:00 :00 No [id number] 20mg Take 1 tablet by mouth every 6 (six) hours as needed for Abdominal pain. [facility] metoclopram farzana HCl 10 mg tablet 03-12 00:00: 07-25 00:00 :00 No [id number] 10mg Take 1 tablet by mouth every 6 (six) hours. [facility] ondansetron HCl 4 mg tablet 03-06 00:00: 00 Yes 1mg Darryl Waggoner iopamidol (ISOVUE 370-500 mL) injection 85 mL 02-02 11:00: 00 02-02 11:00 :00 No [id number] 85mL 85 mL, Intravenou s, ONCE, 1 dose, On 02/03/24 at 0600, Routine [facility] FENTanyl PF (SUBLIMAZE (PF)) injection 50 mcg 02-02 10:30: 00 02-02 09:52 :00 No 50ug 50 mcg, Slow IV Push, ONCE, 1 dose, On 02/03/24 at 0530, Routine [facility] metoclopram farzana HCl (REGLAN) injection 10 mg 02-02 09:30: 00 02-02 09:52 :00 No 10mg 10 mg, Slow IV Push, ONCE, 1 dose, On 02/03/24 at 0430, NICOLASA [facility] pantoprazol e (PROTONIX) injection 40 mg 02-02 09:30: 00 02-02 09:53 :00 No 40mg 40 mg, Slow IV Push, ONCE, 1 dose, On 02/03/24 at 0430 [facility] dicyclomine 20 mg tablet 02-02 00:00: 00 02-04 00:00 :00 No [id number] 20mg Take 1 tablet by mouth every 6 (six) hours as needed for Abdominal pain. [facility] metoclopram farzana HCl 10 mg tablet 02-02 00:00: 00 07-25 00:00 :00 No [id number] 10mg Take 1 tablet by mouth every 6 (six) hours. [facility] pantoprazol e (PROTONIX) 40 mg EC tablet 02-02 00:00: 00 07-25 00:00 :00 No [id number] 40mg Take 1 tablet by mouth in the morning. [facility] loratadine (CLARITIN) tablet 10 mg 01-01 06:30: 00 01-01 18:29 :00 No 10mg 10 mg, Oral, ONCE, 1 dose, On Sun01/02/24 at 0130, NICOLASA [facility] azithromyci n (ZITHROMAX) tablet 500 mg 01-01 05:45: 00 01-01 05:39 :00 No 500mg 500 mg, Oral, ONCE, 1 dose, On Sun01/02/24 at 0045, NICOLASA
Re ason for Anti-Infec tive: Documented Infection< br>Documen zoila Infection Site: HEENT
D uration of Therapy: Once (ED) [facility] azithromyci n (ZITHROMAX Z-RAMESH) 250 mg tablet 01-01 00:00: 00 02-04 00:00 :00 No [id number] 500mg Take 2 tablets by mouth SEE-INSTRU CTIONS. Take 500 mg day 1, then 250 mg days 2 to 5. [facility] loratadine- pseudoephed rine (CLARITIN-D 24 HOUR) 10-240 mg per 24 hr tablet 01-01 00:00: 00 02-04 00:00 :00 No [id number] 1{tbl} Take 1 tablet by mouth in the morning. [facility] dextrometho rphan-guaif enesin 10-100 mg/5 mL solution 01-01 00:00: 00 02-04 00:00 :00 No [id number] 10mL Take 10 mL by mouth every 6 (six) hours as needed for Cough. [facility] butalbital- acetaminoph en-caff (ESGIC) 50-325-40 mg tablet 1 tablet 12-25 09:15: 00 12-25 09:09 :00 No 1{tbl} 1 tablet, Oral, ONCE, 1 dose, On 3/13/24 at 0415, NICOLASA [facility] butalbital- acetaminoph en-caff 50-325-40 mg tablet 3-13 00:00: 00 02-04 00:00 :00 No [id number] 1{tbl} Take 1 tablet by mouth every 6 (six) hours as needed (Headache) . [facility] ketorolac (TORADOL) injection 30 mg 11-20 17:15: 00 11-20 16:28 :00 No 30mg 30 mg, Slow IV Push, ONCE, 1 dose, On Sun11/20/23 at 1115, NICOLASA [facility] iopamidol (ISOVUE 370-500 mL) injection 80 mL 11-20 14:30: 00 11-20 14:45 :00 No [id number] 80mL 80 mL, Intravenou s, ONCE, 1 dose, On Sun11/20/23 at 0845, Routine [facility] NaCl 0.9% (NS) bolus infusion 1,000 mL 11-20 14:15: 00 11-20 16:26 :00 No 1000mL at 999 mL/hr, 1,000 mL, IV Infusion, ONCE, 1 dose, On Sun11/20/23 at 0815, STAT [facility] ondansetron 4 mg disintegrat ing tablet 11-20 00:00: 00 Yes [id number] 4mg Take 1 tablet by mouth every 4 (four) hours as needed for Nausea and Vomiting (N/V). [facility] cephALEXin (KEFLEX) 500 mg capsule 11-20 00:00: 00 02-04 00:00 :00 No [id number] 500mg Take 1 capsule by mouth in the morning and 1 capsule at noon and 1 capsule in the evening. [facility] naproxen 500 mg tablet 11-20 00:00: 00 12-01 05:59 :00 No [id number] 500mg Take 1 tablet by mouth in the morning and 1 tablet in the evening. Take with meals. Do all this for 10 days. [facility] maalox:diph enhydrAMINE :lidocaine 2 % viscous 1:1:1 ([facility]) oral suspension 15 mL 11-12 07:00: 00 11-12 06:55 :00 No 15mL 15 mL, Oral, ONCE, 1 dose, On Sun11/12/23 at 0100, Routine [facility] ondansetron (ZOFRAN-ODT ) disintegrat ing tablet 4 mg 11-12 07:00: 00 11-12 06:16 :00 No 4mg 4 mg, Oral, ONCE, 1 dose, On Sun11/12/23 at 0100, Routine [facility] benzonatate 200 mg capsule 10-27 00:00: 00 Yes [id number] 200mg Take 1 capsule by mouth 3 (three) times daily as needed for Cough for up to 20 doses. [facility] ibuprofen 600 mg tablet 10-27 00:00: 00 Yes [id number] 600mg Take 1 tablet by mouth every 6 (six) hours as needed for Pain (scale 4-6). [facility] ondansetron 4 mg disintegrat ing tablet 10-27 00:00: 00 11-20 00:00 :00 No [id number] 4mg Take 1 tablet by mouth every 8 (eight) hours as needed for Nausea and Vomiting (N/V). [facility] lactulose (CEPHULAC) solution 30 mL 2022-10 01:45: 00 09-09 02:36 :00 No 30mL 30 mL, Oral, ONCE, 1 dose, On 09/08/23 at 1945, NICOLASA [facility] dexamethaso ne (DECADRON PHOSPHATE) injection 10 mg 2022-10 01:30: 00 09-09 02:40 :00 No 10mg 10 mg, Oral, ONCE, 1 dose, On 09/08/23 at 1930, Routine [facility] ketorolac (TORADOL) injection 30 mg 2022-10 01:30: 09-09 02:40 :00 No 30mg 30 mg, Intramuscu lar, ONCE, 1 dose, On Sun09/08/23 at 1930, Routine [facility] ketorolac 10 mg tablet 2022-10 00:00: 00 11-12 00:00 :00 No [id number] 10mg Take 1 tablet by mouth every 6 (six) hours as needed for Pain (scale 7-10). [facility] glycerin/mi neral oil, AGLO ENEMA, Enem 2022-10 00:00: 00 11-12 00:00 :00 No [id number] 225mL Insert 225 mL into rectum as needed for Constipati on. [facility] cefdinir 300 mg capsule 2022-10 00:00: 00 09-16 05:59 :00 No [id number] 300mg Take 1 capsule by mouth every 12 (twelve) hours for 7 days. [facility] lactulose 10 gram/15 mL solution 2022-10 00:00: 00 09-14 05:59 :00 No [id number] 15mL Take 15 mL by mouth in the morning for 5 days. [facility] HYDROcodone -acetaminop hen (NORCO 5) 5-325 mg tablet 1 tablet 2022-10 13:15: 00 09-07 13:33 :00 No 1{tbl} 1 tablet, Oral, ONCE, 1 dose, On Sun09/07/23 at 0715, [facility] diazePAM (VALIUM) tablet 5 mg 2022-10 13:15: 00 09-07 13:33 :00 No 5mg 5 mg, Oral, ONCE, 1 dose, On Sun09/07/23 at 0715, NICOLASA [facility] dexamethaso ne sod phos PF injection 10 mg 2022-10 13:15: 00 09-07 13:33 :00 No 10mg 10 mg, Oral, ONCE, 1 dose, On Sun09/07/23 at 0715, 1 mL [facility] methocarbam oL 750 mg tablet 2022-10 00:00: 00 11-12 00:00 :00 No [id number] 750mg Take 1 tablet by mouth every 6 (six) hours as needed for Pain (scale 1-3). [facility] ondansetron (ZOFRAN (PF)) injection 4 mg 2022-10 02:00: 00 09-04 02:30 :00 No 4mg 4 mg, Slow IV Push, ONCE, 1 dose, On Sun09/03/23 at 1999, [facility] meclizine (TRAVEL-EAS E (MECLIZINE) ) tablet 50 mg 2022-10 02:00: 00 09-04 02:30 :00 No 50mg 50 mg, Oral, ONCE, 1 dose, On Sun09/03/23 at 1999, [facility] ondansetron (ZOFRAN) 4 mg tablet 2022-10 00:00: 00 Yes [id number] 4mg Take 1 tablet by mouth every 8 (eight) hours as needed for Nausea and Vomiting (N/V). [facility] meclizine 25 mg tablet 2022-10 00:00: 00 11-12 00:00 :00 No [id number] 25mg Take 1 tablet by mouth every 6 (six) hours. [facility] ondansetron (ZOFRAN-ODT ) disintegrat ing tablet 4 mg 2022-10 08:30: 00 07-26 07:45 :00 No 4mg 4 mg, Oral, ONCE, 1 dose, On [facility] 07/26/23 at 0330, Routine [facility] proMETHazin e 25 mg tablet 2022-10 00:00: 00 09-03 00:00 :00 No [id number] 12.5mg Take 0.5 tablets by mouth every 6 (six) hours as needed for Nausea and Vomiting (N/V). [facility] loratadine 10 mg tablet 2022-10 00:00: 00 02-04 00:00 :00 No [id number] 10mg Take 1 tablet by mouth at bedtime as needed for Allergies or Runny nose. [facility] albuterol 90 mcg/actuati on inhaler 2022-10 00:00: 00 02-04 00:00 :00 No [id number] 2{puff} Inhale 2 Puffs every 4 (four) hours as needed for Wheezing or Shortness of Breath. [facility] benzonatate 200 mg capsule 2022-10 00:00: 00 11-12 00:00 :00 No [id number] 200mg Take 1 capsule by mouth 3 (three) times daily as needed for Cough. [facility] fluticasone propionate 50 mcg/actuati on nasal spray 2022-10 00:00: 00 11-12 00:00 :00 No [id number] 2{spray } Use 2 Sprays in each nostril in the morning. [facility] predniSONE 20 mg tablet 2022-10 00:00: 00 07-31 04:59 :00 No [id number] 40mg Take 2 tablets by mouth in the morning for 5 days. [facility] TAKE 1 TABLET DAILY. 2022-10 00:00: 00 01-30 00:00 :00 No 10 Darryl Waggoner ibuprofen 800 mg tablet 07-12 00:00: 00 11-12 00:00 :00 No [id number] 800mg Take 1 tablet by mouth every 8 (eight) hours. [facility] methylPREDN ISolone sodium succinate (SOLU-MEDRO L) injection 125 mg 06-24 17:00: 00 06-24 11:35 :44 No 125mg 125 mg, Intramuscu lar, Q6H, First dose on 06/24/23 at 1200, Until Discontinu ed, Routine [facility] gabapentin 300 mg capsule 06-24 00:00: 00 11-12 00:00 :00 No [id number] 300mg Take 1 capsule by mouth in the morning and 1 capsule at noon and 1 capsule in the evening. [facility] codeine-gua ifenesin (ROBITUSSIN AC) 10-100 mg/5 mL oral solution 10 mL 06-18 06:15: 00 06-18 06:23 :00 No 10mL 10 mL, Oral, ONCE, 1 dose, On Sun06/18/23 at 0115, NICOLASA [facility] azithromyci n (ZITHROMAX) tablet 500 mg 06-18 06:15: 06-18 06:24 :00 No 500mg 500 mg, Oral, ONCE, 1 dose, On Sun06/18/23 at 0115, NICOLASA
Re ason for Anti-Infec tive: Documented Infection< br>Documen zoila Infection Site: Respirator y
Durat ion of Therapy: 7 days [facility] benzonatate 200 mg capsule 06-18 00:00: 00 11-12 00:00 :00 No [id number] 200mg Take 1 capsule by mouth 3 (three) times daily as needed for Cough. [facility] azithromyci n 250 mg tablet 06-18 00:00: 00 09-03 00:00 :00 No [id number] 250mg Take 1 tablet by mouth SEE-INSTRU CTIONS. Take 500 mg day 1, then 250 mg days 2 to 5. [facility] ondansetron 4 mg tablet 06-18 00:00: 00 09-03 00:00 :00 No [id number] 1 or 2 tablets every 8 hours as needed for nausea [facility] TAKE 1 TABLET BY MOUTH TWICE A DAY 06-14 00:00: 00 01-30 00:00 :00 No 500 Darryl Waggoner metroNIDAZO LE (FLAGYL) tablet 500 mg 06-12 08:45: 00 06-12 08:32 :00 No 500mg 500 mg, Oral, ONCE, 1 dose, On Sun06/12/23 at 0345, Routine
Reason for Anti-Infec tive: Empiric Therapy for Suspected Infection< br>Empiric Therapy Site: Pelvic
Duration of therapy: 72 hours [facility] doxycycline hyclate (Vibramycin ) capsule 100 mg 06-12 07:45: 00 06-12 08:32 :00 No 100mg 100 mg, Oral, ONCE, 1 dose, On Sun06/12/23 at 0245, NICOLASA
Re ason for Anti-Infec tive: Documented Infection< br>Documen zoila Infection Site: Pelvic
Duration of Therapy: 14 days [facility] morpHINE (4 mg/mL) injection 4 mg 06-12 07:45: 00 06-12 08:32 :00 No 4mg 4 mg, Slow IV Push, ONCE, 1 dose, On Sun06/12/23 at 0245, STAT [facility] ketorolac (TORADOL) injection 30 mg 06-12 06:15: 00 06-12 05:10 :00 No 30mg 30 mg, Slow IV Push, ONCE, 1 dose, On Sun06/12/23 at 0115, NICOLASA [facility] NaCl 0.9% (NS) bolus infusion 1,000 mL 06-12 06:15: 06-12 06:56 :00 No 1000mL at 999 mL/hr, 1,000 mL, IV Infusion, ONCE, 1 dose, On Sun06/12/23 at 0115, STAT [facility] cefTRIAXone (ROCEPHIN) 1,000 mg in NaCl 0.9% (NS) 100 mL MINI-BAG 06-12 05:15: 00 06-12 06:56 :00 No 1000mg 1,000 mg, IV Piggyback, ONCE, 1 dose, On Sun06/12/23 at 0015, Administer over 30 Minutes, 100 mL
Reas on for Anti-Infec tive: Empiric Therapy for Suspected Infection< br>Empiric Therapy Site: Pelvic
Duration of therapy: 72 hours [facility] ondansetron (ZOFRAN (PF)) injection 4 mg 06-12 05:15: 00 06-12 05:10 :00 No 4mg 4 mg, Slow IV Push, ONCE, 1 dose, On Sun06/12/23 at 0015, NICOLASA [facility] ibuprofen 800 mg tablet 06-12 00:00: 00 07-12 00:00 :00 No [id number] 800mg Take 1 tablet by mouth every 8 (eight) hours as needed for Pain (scale 4-6). [facility] TAKE 1 TABLET TWICE DAILY. 05-31 00:00: 00 01-30 00:00 :00 No 100 Darryl Ackerman Edilson iopamidol (ISOVUE 370-500 mL) injection 85 mL 05-28 08:30: 00 05-28 08:30 :00 No [id number] 85mL 85 mL, Intravenou s, ONCE, 1 dose, On Sun05/28/23 at 0330, Routine [facility] NaCl 0.9% (NS) bolus infusion 1,000 mL 05-28 08:15: 00 05-28 08:52 :00 No 1000mL at 999 mL/hr, 1,000 mL, IV Infusion, ONCE, 1 dose, On Sun05/28/23 at 0315, STAT [facility] pantoprazol e (PROTONIX) 80 mg in NaCl 0.9% (NS) 20 mL syringe 05-28 08:00: 00 05-28 08:02 :00 No 80mg 80 mg, IV Push, ONCE, 1 dose, On Sun05/28/23 at 0300, Administer over 2 Minutes, 20 mL [facility] ondansetron (ZOFRAN (PF)) injection 4 mg 05-28 06:45: 00 05-28 06:36 :00 No 4mg 4 mg, Slow IV Push, ONCE, 1 dose, On Sun05/28/23 at 0145, NICOLASA [facility] ondansetron 4 mg disintegrat ing tablet 05-28 00:00: 00 09-03 00:00 :00 No [id number] 4mg Take 1 tablet by mouth every 8 (eight) hours as needed for Nausea and Vomiting (N/V). [facility] esomeprazol e (NEXIUM) 40 mg capsule 8-14 00:00: 00 06-12 04:59 :00 No [id number] 40mg Take 1 capsule by mouth daily with breakfast for 14 days. [facility] INSTILL 4 DROPS IN THE AFFECTED EAR(S) TWICE DAILY 7-10 00:00: 00 01-30 00:00 :00 No 301 Darryl Waggoner dexamethaso ne (DECADRON PHOSPHATE) injection 10 mg 03-07 05:00: 00 03-07 03:56 :00 No 10mg 10 mg, Oral, ONCE, 1 dose, On Sun03/07/23 at 0000, Routine [facility] levocetiriz ine 5 mg tablet 03-06 00:00: 00 09-03 00:00 :00 No [id number] 5mg Take 1 tablet by mouth every evening. [facility] butorphanol (STADOL) injection 1 mg 02-02 08:00: 00 02-02 07:18 :00 No 1mg 1 mg, IV Push, ONCE, 1 dose, On Sun02/02/23 at 0300, NICOLASA [facility] ketorolac (TORADOL) injection 30 mg 02-02 07:45: 00 02-02 06:42 :00 No 30mg 30 mg, Slow IV Push, ONCE, 1 dose, On Sun02/02/23 at 0245, Routine [facility] metoclopram farzana HCl (REGLAN) injection 10 mg 02-02 06:45: 00 02-02 06:41 :00 No 10mg 10 mg, Slow IV Push, ONCE, 1 dose, On Sun02/02/23 at 0145, NICOLASA [facility] diphenhydrA MINE (BENADRYL) injection 25 mg 02-02 06:45: 00 02-02 06:43 :00 No 25mg 25 mg, Slow IV Push, ONCE, 1 dose, On Sun02/02/23 at 0145, STAT [facility] butalbital- acetaminoph en-caff 50-325-40 mg tablet 02-02 00:00: 00 11-12 00:00 :00 No [id number] 1{tbl} Take 1 tablet by mouth every 4 (four) hours as needed for Pain (scale 7-10). [facility] ondansetron (ZOFRAN) 4 mg tablet 02-02 00:00: 00 05-28 00:00 :00 No [id number] 4mg Take 1 tablet by mouth every 8 (eight) hours as needed for Nausea and Vomiting (N/V). [facility] iopamidol (ISOVUE 370-500 mL) injection 98 mL 10-24 21:00: 00 10-24 21:00 :00 No [id number] 98mL 98 mL, Intravenou s, ONCE, 1 dose, On Sun10/24/22 at 1500, Routine [facility] morpHINE (4 mg/mL) injection 4 mg 10-24 18:30: 00 10-24 19:03 :00 No 4mg 4 mg, Slow IV Push, ONCE, 1 dose, On Sun10/24/22 at 1230, STAT [facility] ondansetron (ZOFRAN (PF)) injection 4 mg 10-24 18:30: 00 10-24 19:01 :00 No 4mg 4 mg, Slow IV Push, ONCE, 1 dose, On Sun10/24/22 at 1230, NICOLASA [facility] NaCl 0.9% (NS) bolus infusion 1,000 mL 10-24 18:30: 00 10-24 21:40 :00 No 1000mL at 999 mL/hr, 1,000 mL, IV Infusion, ONCE, 1 dose, On Sun10/24/22 at 1230, STAT [facility] ondansetron 4 mg disintegrat ing tablet 10-24 00:00: 00 2023- 08-14 00:00 :00 No [id number] 4mg Take 1 tablet by mouth every 8 (eight) hours as needed for Nausea and Vomiting (N/V) for up to 10 doses. [facility] cephALEXin (KEFLEX) 500 mg capsule 10-24 00:00: 00 11-01 05:59 :00 No [id number] 500mg Take 1 capsule by mouth 4 (four) times daily for 7 days. [facility] ibuprofen 600 mg tablet -10 00:00: 00 10-30 05:59 :00 No [id number] 600mg Take 1 tablet by mouth every 8 (eight) hours as needed for Pain (scale 4-6) for up to 5 days. [facility] dicyclomine 20 mg tablet 10-24 00:00: 00 10-30 05:59 :00 No [id number] 20mg Take 1 tablet by mouth 3 (three) times daily as needed for Abdominal pain for up to 5 days. [facility] megestroL 40 mg tablet 2021-10 0-07 00:00: 11-12 00:00 :00 No [id number] 100 Take by mouth 2 tabs for first 7 days then 1 tablet by mouth daily for next 14 days. [facility] cephALEXin (KEFLEX) 500 mg capsule 2021-10 0- 00:00: 07-29 04:59 :00 No [id number] 100 500mg Take 1 capsule by mouth in the morning and 1 capsule at noon and 1 capsule in the evening. Do all this for 7 days. [facility] iopamidol (ISOVUE 370-500 mL) injection 65 mL 05-19 21:30: 00 05-19 21:45 :00 No [id number] 65mL 65 mL, Intravenou s, ONCE, 1 dose, On Sun05/19/22 at 1645, Routine [facility] ondansetron (ZOFRAN (PF)) injection 4 mg 05-19 21:30: 00 05-19 20:51 :00 No 4mg 4 mg, Slow IV Push, ONCE, 1 dose, On Sun05/19/22 at 1630, NICOLASA [facility] ketorolac (TORADOL) injection 30 mg 05-19 21:30: 00 05-19 20:51 :00 No 30mg 30 mg, Slow IV Push, ONCE, 1 dose, On Sun05/19/22 at 1630, Routine [facility] NaCl 0.9% (NS) bolus infusion 1,000 mL 05-19 21:30: 00 05-19 22:08 :00 No 1000mL at 999 mL/hr, 1,000 mL, IV Infusion, ONCE, 1 dose, On Sun05/19/22 at 1630, [facility] tamsulosin 0.4 mg 24 hr capsule 05-19 00:00: 00 11-12 00:00 :00 No [id number] .4mg Take 1 capsule by mouth at bedtime. [facility] traMADoL 50 mg tablet 05-19 00:00: 00 05-27 04:59 :00 No [id number] 50mg Take 1 tablet by mouth every 6 (six) hours as needed for Pain (scale 4-6) for up to 7 days. Indication s: acute pain [facility] ketorolac (TORADOL) injection 30 mg 05-13 08:45: 00 05-13 07:40 :00 No 30mg 30 mg, Slow IV Push, ONCE, 1 dose, On 05/13/22 at 0345, Routine [facility] ketorolac 10 mg tablet 05-13 00:00: 00 11-12 00:00 :00 No [id number] 10mg Take 1 tablet by mouth every 6 (six) hours as needed for Pain (scale 7-10). [facility] butalbital- acetaminoph en-caff (ESGIC) 50-325-40 mg tablet 2 tablet 04-01 23:15: 00 04-01 22:22 :00 No 2{tbl} 2 tablet, Oral, ONCE NOW, 1 dose, On 04/01/22 at 1815, Routine [facility] ketorolac (TORADOL) injection 30 mg 04-01 23:15: 00 04-01 22:21 :00 No 30mg 30 mg, Intramuscu lar, ONCE, 1 dose, On 04/01/22 at 1815, NICOLASA [facility] No known medications 04-01 18:30: 37 No [facility] No known medications 10-25 13:51: 01 No [facility] cefdinir 300 mg capsule 10-25 00:00: 00 11-02 05:59 :00 No [id number] 300mg Take 1 capsule by mouth 2 (two) times daily for 7 days. [facility] Iron (ferrous sulfate) 325 mg (65 [...] mg tablet 10-20 00:00: 00 No 1mg naproxen 500 mg [...] known medications 04-08 21:44: 39 No [facility] amitriptyli ne 25 mg tablet 03-03 00:00: 00 Yes 1mg Darryl Waggoner amitriptyli ne 25 mg tablet 03-03 00:00: 00 No 1mg amitriptyli ne 25 mg tablet 03-03 00:00: 00 No 1mg Dose Unknown 01-08 00:00: 00 Yes Darryl Waggoner Dose Unknown 01-08 00:00: 00 No Dose Unknown 01-08 00:00: 00 No Celexa 20 mg tablet 12-08 00:00: 00 Yes 1mg Darryl Waggoner gabapentin 600 mg tablet 12-08 00:00: 00 Yes 1mg Darryl Waggoner Dose Unknown 12-08 00:00: 00 Yes Darryl Waggoner Celexa 20 mg tablet 12-08 00:00: 00 No 1mg gabapentin 600 mg tablet 12-08 00:00: 00 No 1mg Dose Unknown 12-08 00:00: 00 No Celexa 20 mg tablet 12-08 00:00: 00 No 1mg gabapentin 600 mg tablet 24 00:00: 00 No 1mg Dose Unknown 224 00:00: 00 No Immunizations Ordered Immunization Name Filled Immunization Name Date Status Comments Source HPV9 2025-02-04 00:00:00 Completed SARS-COV-2 COVID-19 VACCINE - (MODERNA) 2021-01-12 00:00:00 Completed SARS-COV-2 COVID-19 VACCINE - (MODERNA) 2020-12-15 00:00:00 Completed TDAP 2016-08-23 00:00:00 Completed [facility] Vital Signs Vital Name Observation Time Observation Value Comments S kwasiemmanuel Systolic blood pressure 2025-03-09 07:37:00 126 mm[Hg] [facility] Diastolic blood pressure 2025-03-09 07:37:00 85 mm[Hg] [facility] Heart rate 2025-03-09 07:37:00 95 /min [facility] Body temperature 2025-03-09 07:37:00 36.83 Jennifer [facility] Respiratory rate 2025-03-09 07:37:00 17 /min [facility] Oxygen saturation in Arterial blood by Pulse oximetry 2025-03-09 07:37:00 98 /min [facility] Body height 2025-03-09 02:30:00 157.5 cm [facility] Body weight 2025-03-09 02:30:00 81.647 kg [facility] BMI 2025-03-09 02:30:00 32.92 kg/m2 [facility] Systolic blood pressure 2025-02-04 19:15:00 126 mm[Hg] [facility] Diastolic blood pressure 2025-02-04 19:15:00 83 mm[Hg] [facility] Heart rate 2025-02-04 19:15:00 98 /min [facility] Body temperature 2025-02-04 19:15:00 36.5 Jennifer [facility] Respiratory rate 2025-02-04 19:15:00 20 /min [facility] Body height 2025-02-04 19:15:00 157.5 cm [facility] Body weight 2025-02-04 19:15:00 84.414 kg [facility] BMI 2025-02-04 19:15:00 34.04 kg/m2 [facility] Body temperature 2025-01-27 18:45:00 37 Jennifer [facility] Systolic blood pressure 2025-01-27 18:00:00 124 mm[Hg] [facility] Diastolic blood pressure 2025-01-27 18:00:00 91 mm[Hg] [facility] Heart rate 2025-01-27 18:00:00 89 /min [facility] Respiratory rate 2025-01-27 18:00:00 16 /min [facility] Oxygen saturation in Arterial blood by Pulse oximetry 2025-01-27 18:00:00 98 /min [facility] Body height 2025-01-27 17:26:00 157.5 cm [facility] Body weight 2025-01-27 17:26:00 79.379 kg [facility] BMI 2025-01-27 17:26:00 32.01 kg/m2 [facility] Systolic blood pressure 2025-01-17 09:03:00 115 mm[Hg] [facility] Diastolic blood pressure 2025-01-17 09:03:00 79 mm[Hg] [facility] Heart rate 2025-01-17 09:03:00 89 /min [facility] Body temperature 2025-01-17 09:03:00 36.89 Jennifer [facility] Respiratory rate 2025-01-17 09:03:00 16 /min [facility] Oxygen saturation in Arterial blood by Pulse oximetry 2025-01-17 09:03:00 100 /min [facility] Body height 2025-01-17 07:25:00 157.5 cm [facility] Body weight 2025-01-17 07:25:00 81.647 kg [facility] BMI 2025-01-17 07:25:00 32.92 kg/m2 [facility] Systolic blood pressure 2025-01-05 14:39:00 125 mm[Hg] [facility] Diastolic blood pressure 2025-01-05 14:39:00 84 mm[Hg] [facility] Heart rate 2025-01-05 14:39:00 99 /min [facility] Body temperature 2025-01-05 14:39:00 37.33 Jennifer [facility] Respiratory rate 2025-01-05 14:39:00 16 /min [facility] Oxygen saturation in Arterial blood by Pulse oximetry 2025-01-05 14:39:00 98 /min [facility] Body height 2025-01-05 10:11:00 157.5 cm [facility] Body weight 2025-01-05 10:11:00 83.462 kg [facility] BMI 2025-01-05 10:11:00 33.65 kg/m2 [facility] Systolic blood pressure 2024-12-18 07:00:00 101 mm[Hg] [facility] Diastolic blood pressure 2024-12-18 07:00:00 71 mm[Hg] [facility] Heart rate 2024-12-18 07:00:00 90 /min [facility] Respiratory rate 2024-12-18 07:00:00 16 /min [facility] Oxygen saturation in Arterial blood by Pulse oximetry 2024-12-18 07:00:00 97 /min [facility] Body temperature 2024-12-18 05:54:00 37.11 Jennifer [facility] Body height 2024-12-18 05:54:00 157.5 cm [facility] Body weight 2024-12-18 05:54:00 83.462 kg [facility] BMI 2024-12-18 05:54:00 33.65 kg/m2 [facility] Systolic blood pressure 2024-11-19 04:41:00 120 mm[Hg] [facility] Diastolic blood pressure 2024-11-19 04:41:00 93 mm[Hg] [facility] Heart rate 2024-11-19 04:41:00 78 /min [facility] Body temperature 2024-11-19 04:41:00 36.83 Jennifer [facility] Respiratory rate 2024-11-19 04:41:00 16 /min [facility] Oxygen saturation in Arterial blood by Pulse oximetry 2024-11-19 04:41:00 99 /min [facility] Body height 2024-11-19 03:00:00 157.5 cm [facility] Body weight 2024-11-19 03:00:00 86.183 kg [facility] BMI 2024-11-19 03:00:00 34.75 kg/m2 [facility] Systolic blood pressure 2024-11-09 04:37:00 130 mm[Hg] [facility] Diastolic blood pressure 2024-11-09 04:37:00 89 mm[Hg] [facility] Heart rate 2024-11-09 04:37:00 88 /min [facility] Body temperature 2024-11-09 04:37:00 37 Jennifer [facility] Respiratory rate 2024-11-09 04:37:00 19 /min [facility] Body height 2024-11-09 04:37:00 157.5 cm [facility] Body weight 2024-11-09 04:37:00 81.647 kg [facility] BMI 2024-11-09 04:37:00 32.92 kg/m2 [facility] Oxygen saturation in Arterial blood by Pulse oximetry 2024-11-09 04:37:00 100 /min [facility] Systolic blood pressure 2024-07-25 14:30:00 124 mm[Hg] [facility] Diastolic blood pressure 2024-07-25 14:30:00 83 mm[Hg] [facility] Heart rate 2024-07-25 14:30:00 88 /min [facility] Respiratory rate 2024-07-25 14:30:00 14 /min [facility] Oxygen saturation in Arterial blood by Pulse oximetry 2024-07-25 14:30:00 99 /min [facility] Body temperature 2024-07-25 12:49:00 37.22 Jennifer [facility] Body height 2024-07-25 12:49:00 157.5 cm [facility] Body weight 2024-07-25 12:49:00 86.637 kg [facility] BMI 2024-07-25 12:49:00 34.93 kg/m2 [facility] Systolic blood pressure 2024-07-04 10:38:00 117 mm[Hg] [facility] Diastolic blood pressure 2024-07-04 10:38:00 79 mm[Hg] [facility] Heart rate 2024-07-04 10:38:00 82 /[facility] Body temperature 2024-07-04 10:38:00 36.89 Jennifer [facility] Respiratory rate 2024-07-04 10:38:00 14 /min [facility] Oxygen saturation in Arterial blood by Pulse oximetry 2024-07-04 10:38:00 100 /min [facility] Body height 2024-07-04 07:28:00 157.5 cm [facility] Body weight 2024-07-04 07:28:00 79.379 kg [facility] BMI 2024-07-04 07:28:00 32.01 kg/m2 [facility] Systolic blood pressure 2024-03-12 11:00:00 127 mm[Hg] [facility] Diastolic blood pressure 2024-03-12 11:00:00 94 mm[Hg] [facility] Heart rate 2024-03-12 11:00:00 84 /min [facility] Body temperature 2024-03-12 11:00:00 36.61 Jennifer [facility] Respiratory rate 2024-03-12 11:00:00 14 /min [facility] Oxygen saturation in Arterial blood by Pulse oximetry 2024-03-12 11:00:00 100 /min [facility] Body height 2024-03-12 07:04:00 157.5 cm [facility] Body weight 2024-03-12 07:04:00 87 kg [facility] BMI 2024-03-12 07:04:00 35.08 kg/m2 [facility] Systolic blood pressure 2024-02-03 12:00:00 121 mm[Hg] [facility] Diastolic blood pressure 2024-02-03 12:00:00 82 mm[Hg] [facility] Heart rate 2024-02-03 12:00:00 80 /min [facility] Respiratory rate 2024-02-03 12:00:00 17 /min [facility] Oxygen saturation in Arterial blood by Pulse oximetry 2024-02-03 12:00:00 100 /min [facility] Body temperature 2024-02-03 09:01:00 37.33 Jennifer [facility] Body height 2024-02-03 09:01:00 157.5 cm [facility] Body weight 2024-02-03 09:01:00 81.647 kg [facility] BMI 2024-02-03 09:01:00 32.92 kg/m2 [facility] Systolic blood pressure 2024-01-02 05:38:00 109 mm[Hg] [facility] Diastolic blood pressure 2024-01-02 05:38:00 91 mm[Hg] [facility] Heart rate 2024-01-02 05:38:00 93 /min [facility] Body temperature 2024-01-02 05:38:00 36.28 Jennifer [facility] Respiratory rate 2024-01-02 05:38:00 20 /min [facility] Oxygen saturation in Arterial blood by Pulse oximetry 2024-01-02 05:38:00 99 /min [facility] Body height 2024-01-02 03:25:00 157.5 cm [facility] Body weight 2024-01-02 03:25:00 81.647 kg [facility] BMI 2024-01-02 03:25:00 32.92 kg/m2 [facility] Systolic blood pressure 2023-12-26 08:51:00 115 mm[Hg] [facility] Diastolic blood pressure 2023-12-26 08:51:00 78 mm[Hg] [facility] Heart rate 2023-12-26 08:51:00 98 /min [facility] Body temperature 2023-12-26 08:51:00 37.5 Jennifer [facility] Respiratory rate 2023-12-26 08:51:00 12 /min [facility] Body height 2023-12-26 08:51:00 157.5 cm [facility] Body weight 2023-12-26 08:51:00 85.322 kg [facility] BMI 2023-12-26 08:51:00 34.40 kg/m2 [facility] Oxygen saturation in Arterial blood by Pulse oximetry 2023-12-26 08:51:00 100 /min [facility] Systolic blood pressure 2023-11-20 16:29:00 120 mm[Hg] [facility] Diastolic blood pressure 2023-11-20 16:29:00 89 mm[Hg] [facility] Heart rate 2023-11-20 16:29:00 85 /min [facility] Respiratory rate 2023-11-20 16:29:00 16 /min [facility] Oxygen saturation in Arterial blood by Pulse oximetry 2023-11-20 16:29:00 97 /min [facility] Body temperature 2023-11-20 12:44:00 37.11 Jennifer [facility] Body height 2023-11-20 12:44:00 157.5 cm [facility] Body weight 2023-11-20 12:44:00 82.101 kg [facility] BMI 2023-11-20 12:44:00 33.11 kg/m2 [facility] Systolic blood pressure 2023-11-12 06:09:00 135 mm[Hg] [facility] Diastolic blood pressure 2023-11-12 06:09:00 86 mm[Hg] [facility] Heart rate 2023-11-12 06:09:00 89 /min [facility] Body temperature 2023-11-12 06:09:00 37.28 Jennifer [facility] Respiratory rate 2023-11-12 06:09:00 16 /min [facility] Body height 2023-11-12 06:09:00 157.5 cm [facility] Body weight 2023-11-12 06:09:00 83.553 kg [facility] BMI 2023-11-12 06:09:00 33.69 kg/m2 [facility] Oxygen saturation in Arterial blood by Pulse oximetry 2023-11-12 06:09:00 100 /min [facility] Systolic blood pressure 2023-10-28 02:30:00 121 mm[Hg] [facility] Diastolic blood pressure 2023-10-28 02:30:00 80 mm[Hg] [facility] Heart rate 2023-10-28 02:30:00 124 /min [facility] Body temperature 2023-10-28 02:30:00 38 Jennifer [facility] Respiratory rate 2023-10-28 02:30:00 20 /min [facility] Body weight 2023-10-28 02:30:00 86.183 kg [facility] BMI 2023-10-28 02:30:00 34.75 kg/m2 [facility] [facility] Oxygen saturation in Arterial blood by Pulse oximetry 2023-10-28 02:30:00 96 /min [facility] Systolic blood pressure 2023-09-09 02:47:12 116 mm[Hg] [facility] Diastolic blood pressure 2023-09-09 02:47:12 85 mm[Hg] [facility] Heart rate 2023-09-09 02:47:12 78 /min Unive [facility] Body temperature 2023-09-09 02:47:12 36.28 Jennifer [facility] Respiratory rate 2023-09-09 02:47:12 18 /min [facility] Oxygen saturation in Arterial blood by Pulse oximetry 2023-09-09 02:47:12 98 /min [facility] Body height 2023-09-09 00:30:00 157.5 cm [facility] Body weight 2023-09-09 00:30:00 85.276 kg [facility] BMI 2023-09-09 00:30:00 34.39 kg/m2 Univ [facility] Systolic blood pressure 2023-09-07 12:45:00 119 mm[Hg] [facility] Diastolic blood pressure 2023-09-07 12:45:00 83 mm[Hg] [facility] Heart rate 2023-09-07 12:45:00 101 /min Unive [facility] Body temperature 2023-09-07 12:45:00 37.5 Jennifer [facility] Respiratory rate 2023-09-07 12:45:00 18 /min [facility] Body height 2023-09-07 12:45:00 157.5 cm [facility] Body weight 2023-09-07 12:45:00 82.872 kg Univ [facility] BMI 2023-09-07 12:45:00 33.42 kg/m2 Univ [facility] Oxygen saturation in Arterial blood by Pulse oximetry 2023-09-07 12:45:00 99 /min [facility] Systolic blood pressure 2023-09-04 04:00:00 112 mm[Hg] [facility] Diastolic blood pressure 2023-09-04 04:00:00 97 mm[Hg] [facility] Heart rate 2023-09-04 04:00:00 94 /min Unive [facility] Body temperature 2023-09-04 04:00:00 36.89 Jennifer [facility] Oxygen saturation in Arterial blood by Pulse oximetry 2023-09-04 04:00:00 98 /min [facility] Respiratory rate 2023-09-04 03:00:00 17 /min [facility] Body height 2023-09-04 00:54:00 157.5 cm [facility] Body weight 2023-09-04 00:54:00 83.915 kg [facility] BMI 2023-09-04 00:54:00 33.84 kg/m2 [facility] Systolic blood pressure 2023-08-04 04:05:00 139 mm[Hg] [facility] Diastolic blood pressure 2023-08-04 04:05:00 77 mm[Hg] [facility] Heart rate 2023-08-04 04:05:00 104 /min [facility] Body temperature 2023-08-04 04:05:00 36.72 Jennifer [facility] Respiratory rate 2023-08-04 04:05:00 16 /min [facility] Body height 2023-08-04 04:05:00 157.5 cm [facility] Body weight 2023-08-04 04:05:00 85.957 kg [facility] BMI 2023-08-04 04:05:00 34.66 kg/m2 [facility] Oxygen saturation in Arterial blood by Pulse oximetry 2023-08-04 04:05:00 100 /min [facility] Systolic blood pressure 2023-07-26 07:38:00 134 mm[Hg] [facility] Diastolic blood pressure 2023-07-26 07:38:00 95 mm[Hg] [facility] Heart rate 2023-07-26 07:38:00 114 /min Unive [facility] Body temperature 2023-07-26 07:38:00 37.28 Jennifer [facility] Respiratory rate 2023-07-26 07:38:00 18 /min [facility] Body height 2023-07-26 07:38:00 157.5 cm [facility] Body weight 2023-07-26 07:38:00 86.183 kg [facility] BMI 2023-07-26 07:38:00 34.75 kg/m2 [facility] Oxygen saturation in Arterial blood by Pulse oximetry 2023-07-26 07:38:00 99 /min [facility] Systolic blood pressure 2023-07-25 14:52:00 126 mm[Hg] [facility] Diastolic blood pressure 2023-07-25 14:52:00 96 mm[Hg] [facility] Heart rate 2023-07-25 14:52:00 98 /min [facility] Body temperature 2023-07-25 14:52:00 37 Jennifer [facility] Respiratory rate 2023-07-25 14:52:00 16 /min [facility] Oxygen saturation in Arterial blood by Pulse oximetry 2023-07-25 14:52:00 98 /min [facility] Body height 2023-07-25 12:33:00 157.5 cm [facility] Body weight 2023-07-25 12:33:00 86.456 kg [facility] BMI 2023-07-25 12:33:00 34.86 kg/m2 [facility] Systolic blood pressure 2023-07-12 12:34:00 127 mm[Hg] [facility] Diastolic blood pressure 2023-07-12 12:34:00 86 mm[Hg] [facility] Heart rate 2023-07-12 12:34:00 86 /min Unive [facility] Body temperature 2023-07-12 12:34:00 36.72 Jennifer [facility] Respiratory rate 2023-07-12 12:34:00 16 /min [facility] Body height 2023-07-12 12:34:00 157.5 cm [facility] 2023-07-12 12:34:00 86.183 kg Univ [facility] BMI 2023-07-12 12:34:00 34.75 kg/m2 Univ [facility] Oxygen saturation in Arterial blood by Pulse oximetry 2023-07-12 12:34:00 98 /min [facility] Systolic blood pressure 2023-06-24 10:24:00 118 mm[Hg] [facility] Diastolic blood pressure 2023-06-24 10:24:00 89 mm[Hg] [facility] Heart rate 2023-06-24 10:24:00 95 /min Unive [facility] Body temperature 2023-06-24 10:24:00 36.78 Jennifer [facility] Respiratory rate 2023-06-24 10:24:00 18 /min [facility] Body height 2023-06-24 10:24:00 157.5 cm Univ [facility] Body weight 2023-06-24 10:24:00 89.812 kg [facility] BMI 2023-06-24 10:24:00 36.21 kg/m2 [facility] Oxygen saturation in Arterial blood by Pulse oximetry 2023-06-24 10:24:00 100 /min [facility] Systolic blood pressure 2023-06-18 04:52:00 113 mm[Hg] [facility] Diastolic blood pressure 2023-06-18 04:52:00 82 mm[Hg] [facility] Heart rate 2023-06-18 04:52:00 100 /min Unive [facility] Body temperature 2023-06-18 04:52:00 37.39 Jennifer [facility] Respiratory rate 2023-06-18 04:52:00 18 /min [facility] Body height 2023-06-18 04:52:00 157.5 cm [facility] Body weight 2023-06-18 04:52:00 89.903 kg [facility] BMI 2023-06-18 04:52:00 36.25 kg/m2 [facility] Oxygen saturation in Arterial blood by Pulse oximetry 2023-06-18 04:52:00 100 /min [facility] Systolic blood pressure 2023-06-12 09:00:00 105 mm[Hg] [facility] Diastolic blood pressure 2023-06-12 09:00:00 74 mm[Hg] [facility] Heart rate 2023-06-12 09:00:00 74 /min Unive [facility] Respiratory rate 2023-06-12 09:00:00 16 /min [facility] Oxygen saturation in Arterial blood by Pulse oximetry 2023-06-12 09:00:00 97 /min [facility] Body temperature 2023-06-12 04:09:00 36.89 Jennifer [facility] Body height 2023-06-12 04:09:00 157.5 cm [facility] Body weight 2023-06-12 04:09:00 86.183 kg [facility] BMI 2023-06-12 04:09:00 34.75 kg/m2 [facility] Systolic blood pressure 2023-05-28 08:00:00 123 mm[Hg] [facility] Diastolic blood pressure 2023-05-28 08:00:00 78 mm[Hg] [facility] Heart rate 2023-05-28 08:00:00 93 /min [facility] Oxygen saturation in Arterial blood by Pulse oximetry 2023-05-28 08:00:00 99 /min [facility] Respiratory rate 2023-05-28 06:00:00 18 /min [facility] Body temperature 2023-05-28 05:37:00 35.72 Jennifer [facility] Body height 2023-05-28 05:37:00 157.5 cm [facility] Body weight 2023-05-28 05:37:00 87.136 kg [facility] BMI 2023-05-28 05:37:00 35.14 kg/m2 [facility] Systolic blood pressure 2023-03-07 03:59:00 122 mm[Hg] [facility] Diastolic blood pressure 2023-03-07 03:59:00 77 mm[Hg] [facility] Heart rate 2023-03-07 03:59:00 97 /min Unive [facility] Body temperature 2023-03-07 03:59:00 36.67 Jennifer [facility] Respiratory rate 2023-03-07 03:59:00 18 /min [facility] Body height 2023-03-07 03:59:00 157.5 cm [facility] Body weight 2023-03-07 03:59:00 79.379 kg [facility] BMI 2023-03-07 03:59:00 32.01 kg/m2 [facility] Oxygen saturation in Arterial blood by Pulse oximetry 2023-03-07 03:59:00 99 /min [facility] Heart rate 2023-02-02 07:48:00 73 /min [facility] Oxygen saturation in Arterial blood by Pulse oximetry 2023-02-02 07:48:00 98 /min [facility] Systolic blood pressure 2023-02-02 07:00:00 122 mm[Hg] [facility] Diastolic blood pressure 2023-02-02 07:00:00 79 mm[Hg] [facility] Respiratory rate 2023-02-02 07:00:00 15 /min [facility] Body temperature 2023-02-02 06:07:00 36.94 Jennifer [facility] Body height 2023-02-02 06:07:00 157.5 cm [facility] Body weight 2023-02-02 06:07:00 79.379 kg [facility] BMI 2023-02-02 06:07:00 32.01 kg/m2 [facility] Systolic blood pressure 2022-10-24 21:42:00 114 mm[Hg] [facility] Diastolic blood pressure 2022-10-24 21:42:00 74 mm[Hg] [facility] Heart rate 2022-10-24 21:42:00 72 /min Unive [facility] Respiratory rate 2022-10-24 21:42:00 16 /min [facility] Oxygen saturation in Arterial blood by Pulse oximetry 2022-10-24 21:42:00 99 /min [facility] Body temperature 2022-10-24 18:03:00 37.33 Jennifer [facility] Body height 2022-10-24 18:03:00 157.5 cm Univ [facility] Body weight 2022-10-24 18:03:00 79.379 kg [facility] BMI 2022-10-24 18:03:00 32.01 kg/m2 Univ [facility] Systolic blood pressure 2022-07-21 12:46:00 115 mm[Hg] [facility] Diastolic blood pressure 2022-07-21 12:46:00 83 mm[Hg] [facility] Heart rate 2022-07-21 12:46:00 82 /min Unive [facility] Body temperature 2022-07-21 12:46:00 36.89 Jennifer [facility] Respiratory rate 2022-07-21 12:46:00 18 /min [facility] Body weight 2022-07-21 12:46:00 78.019 kg [facility] BMI 2022-07-21 12:46:00 31.46 kg/m2 [facility] Oxygen saturation in Arterial blood by Pulse oximetry 2022-07-21 12:46:00 99 /min [facility] Systolic blood pressure 2022-05-19 22:00:00 128 mm[Hg] [facility] Diastolic blood pressure 2022-05-19 22:00:00 68 mm[Hg] [facility] Heart rate 2022-05-19 22:00:00 78 /min Unive [facility] Body temperature 2022-05-19 22:00:00 36.78 Jennifer [facility] Respiratory rate 2022-05-19 22:00:00 18 /min [facility] Oxygen saturation in Arterial blood by Pulse oximetry 2022-05-19 22:00:00 100 /min [facility] Body height 2022-05-19 20:31:00 157.5 cm [facility] Body weight 2022-05-19 20:31:00 78.019 kg [facility] BMI 2022-05-19 20:31:00 31.46 kg/m2 [facility] Heart rate 2022-05-13 08:30:00 83 /min [facility] Oxygen saturation in Arterial blood by Pulse oximetry 2022-05-13 08:30:00 99 /min [facility] Systolic blood pressure 2022-05-13 08:00:00 111 mm[Hg] [facility] Diastolic blood pressure 2022-05-13 08:00:00 80 mm[Hg] [facility] Body temperature 2022-05-13 07:05:00 37 Jennifer [facility] Respiratory rate 2022-05-13 07:05:00 18 /min [facility] Body height 2022-05-13 07:05:00 157.5 cm [facility] Body weight 2022-05-13 07:05:00 76.658 kg [facility] BMI 2022-05-13 07:05:00 30.91 kg/m2 [facility] Systolic blood pressure 2022-04-01 21:47:00 124 mm[Hg] [facility] Diastolic blood pressure 2022-04-01 21:47:00 84 mm[Hg] [facility] Heart rate 2022-04-01 21:47:00 89 /min [facility] Body temperature 2022-04-01 21:47:00 37.22 Jennifer [facility] Respiratory rate 2022-04-01 21:47:00 22 /min [facility] Body weight 2022-04-01 21:47:00 77.111 kg [facility] BMI 2022-04-01 21:47:00 29.18 kg/m2 [facility] Oxygen saturation in Arterial blood by Pulse oximetry 2022-04-01 21:47:00 99 /min [facility] Systolic blood pressure 2021-10-25 19:42:00 103 mm[Hg] [facility] Diastolic blood pressure 2021-10-25 19:42:00 74 mm[Hg] [facility] Heart rate 2021-10-25 19:42:00 94 /min [facility] Body temperature 2021-10-25 19:42:00 37.67 Jennifer [facility] Respiratory rate 2021-10-25 19:42:00 18 /min [facility] Body weight 2021-10-25 19:42:00 70.761 kg [facility] BMI 2021-10-25 19:42:00 26.78 kg/m2 [facility] Oxygen saturation in Arterial blood by Pulse oximetry 2021-10-25 19:42:00 99 /min [place] [facility] BP Systolic 2024-12-19 08:33:00 128 mm[Hg] Step hen F Edilson BP Diastolic 2024-12-19 08:33:00 74 mm[Hg] Osito phen F Edilson Weight Measured 2024-12-19 08:33:00 184.20 pounds Darryl F Edilson Height Measured 2024-12-19 08:33:00 63.00 inches Darryl F Edilson Body Temperature 2024-12-19 08:33:00 98.10 degrees Darryl F Edilson Heart Rate 2024-12-19 08:33:00 94.00 /min Beatris en F Edilson Respiratory Rate 2024-12-19 08:33:00 14.00 /min Darryl F Edilson BP Systolic 2024-11-28 09:27:00 125 mm[Hg] Step hen F Edil[facility] BP Diastolic 2024-11-28 09:27:00 88 mm[Hg] Osito phen F Edilson Weight Measured 2024-11-28 09:27:00 190.20 pounds Darryl F Edilson Height Measured 2024-11-28 09:27:00 63.00 inches Darryl F Edilson Body Temperature 2024-11-28 09:27:00 99.30 degrees Darryl F Edilson Heart Rate 2024-11-28 09:27:00 103.00 /min Step hen F [facility] Respiratory Rate 2024-11-28 09:27:00 18.00 /min Darryl F Edilson BP Systolic 2024-11-27 09:31:00 136 mm[Hg] Step [...] BP Diastolic 2022-09-25 10:10:00 80 mm[Hg] Osito Waggoner Weight Measured 2022-09-25 10:10:00 174.00 pounds Darryl Waggoner Height Measured 2022-09-25 10:10:00 63.00 inches Darryl Tyron Waggoner Body Temperature 2022-09-25 10:10:00 98.40 degrees Darryl Tyron Waggoner Heart Rate 2022-09-25 10:10:00 100.00 /min Step triston Waggoner Respiratory Rate 2022-09-25 10:10:00 18.00 /min Darryl [...] Date / Time Performed Performing Clinician Source US OVARY TORSION 2025-03-09 05:02:45 Doni Marie U [facility] POCT TEST 2025-03-09 03:04:00 Ryan Marie [facility] LIPASE 2025-03-09 03:03:00 Doni Marie [facility] COMP. METABOLIC PANEL ([id number]) 2025-03-09 03:03:00 Doni Marie [facility] CBC WITH DIFF 2025-03-09 03:03:00 Doni Marie [facility] URINALYSIS 2025-03-09 03:03:00 [facility] GARDASIL 9 (HPV 9V) VACCINE 2025-02-04 19:21:47 Carolyn Miller [facility] POCT TEST 2025-02-04 00:00:00 Kaye House [facility] POCT GLUCOSE(AGE >30DAYS) 2025-01-27 18:48:00 Barbie Becerra Patrice [facility] POCT GLUCOSE (AUTOMATED) 2025-01-27 18:45:00 Barbie frederick Patrice [facility] CT ABDOMEN PELVIS W CONTRAST 2025-01-17 08:40:02 Selene Parra [facility] POCT TEST 2025-01-17 07:32:00 Selene Parra [facility] LIPASE 2025-01-17 07:29:00 Selene Parra [facility] COMP. METABOLIC PANEL ([id number]) 2025-01-17 07:29:00 Selene Parra [facility] CBC WITH DIFF 2025-01-17 07:29:00 Selene Parra [facility] URINALYSIS 2025-01-17 07:29:00 Selene Parra [facility] CT ABDOMEN PELVIS W CONTRAST 2025-01-05 12:26:37 Hermilo Ricks [facility] POCT TEST 2025-01-05 11:58:00 Jeanine Ricks [facility] URINALYSIS 2025-01-05 10:42:00 [facility] XR CHEST 1 VW 2025-01-05 10:39:55 Singer [facility] COMP. METABOLIC PANEL ([id number]) 2025-01-05 10:16:00 Hermilo Ricks [facility] CBC WITH DIFF 2025-01-05 10:16:00 Singer [facility] INFLUENZA A/B RSV COVID NAAT 2025-01-05 10:16:00 Hermilo Ricks [facility] [id number] Colposcopy Entire Vagina W/cervix If Present 2024-12-19 00:00:00 Darryl Waggoner POCT TEST 2024-12-18 06:15:00 Martha Terry [facility] COMP. METABOLIC PANEL ([id number]) 2024-12-18 06:13:00 Gaby Terry [facility] CBC WITH DIFF 2024-12-18 06:13:00 [facility] 2024-12-18 06:13:00 Gaby Terry [facility] XR ABDOMEN ACUTE SERIES 2024-07-25 14:37:21 Do jasmina Marie [facility] POCT TEST 2024-07-25 13:23:00 Ryan Marie [facility] LIPASE 2024-07-25 13:21:00 Doni Marie [facility] COMP. METABOLIC PANEL ([id number]) 2024-07-25 13:21:00 Doni Marie [facility] CBC WITH DIFF 2024-07-25 13:21:00 Doni Marie [facility] URINALYSIS 2024-07-25 13:21:00 Doni Marie [facility] URINE DRUG (IMMUNOASSAY) - COMPREHENSIVE DRUG SCREEN W/O REFLEX 2024-07-25 13:21:00 Doni Marie [facility] CT ABDOMEN PELVIS W CONTRAST 2024-07-04 08:54:02 Selene Parra [facility] POCT TEST 2024-07-04 07:36:00 Selene Parra [facility] LIPASE 2024-07-04 07:33:00 Selene Parra [facility] COMP. METABOLIC PANEL ([id number]) 2024-07-04 07:33:00 Selene Parra [facility] CBC WITH DIFF 2024-07-04 07:33:00 Selene Parra [facility] URINALYSIS 2024-07-04 07:33:00 Selene Parra [facility] CT ABDOMEN PELVIS W CONTRAST 2024-03-12 09:15:57 Selene Parra [facility] LIPASE 2024-03-12 09:01:00 Selene Parra [facility] COMP. METABOLIC PANEL ([id number]) 2024-03-12 09:01:00 Selene Parra [facility] CBC WITH DIFF 2024-03-12 09:01:00 Selene Parra [facility] EBV-MONONUCLEOSIS SCREEN 2024-02-03 10:22:00 Funmilayo Parra [facility] CT ABDOMEN PELVIS W CONTRAST 2024-02-03 10:08:28 Selene Parra [facility] POCT TEST 2024-02-03 09:09:00 Selene Parra [facility] LIPASE 2024-02-03 09:06:00 Selene Parra [facility] COMP. METABOLIC PANEL ([id number]) 2024-02-03 09:06:00 Selene Parra [facility] CBC WITH DIFF 2024-02-03 09:06:00 Selene Parra [facility] URINALYSIS 2024-02-03 09:06:00 Selene Parra [facility] RAPID STREP SCREEN FOR GROUP A 2024-02-03 09:06:00 Selene Parra [facility] ASSIGNMENT OF BENEFITS 2024-01-02 04:22:29 Docto r Unassigned, [place] [facility] RAPID STREP SCREEN FOR GROUP A 2024-01-02 04:20:00 Doni Marie [facility] RAPID INFLUENZA A/B 2024-01-02 03:50:00 Ryan Marie [facility] COVID-19 (ID NOW RAPID TESTING) 2024-01-02 03:50:00 Doni Marie [facility] CONSENT/REFUSAL FOR DIAGNOSIS AND TREATMENT 2024-01-02 03:16:29 Doctor Unassigned, [place] [facility] CONSENT/REFUSAL FOR DIAGNOSIS AND TREATMENT 2023-12-26 08:43:59 Doctor Unassigned, [place] [facility] [id number] Colposcopy Cervix Endocervical Curettage 2023-12-17 00:00:00 Darryl Waggoner US OVARY TORSION 2023-11-20 16:01:25 Doni Marie [facility] CT ABDOMEN PELVIS W CONTRAST 2023-11-20 14:40:23 Doni Marie [facility] COMP. METABOLIC PANEL ([id number]) 2023-11-20 13:27:00 Doni Marie [facility] CBC WITH DIFF 2023-11-20 13:27:00 Doni Marie [facility] URINALYSIS 2023-11-20 13:27:00 Doni Marie [facility] POCT TEST 2023-11-20 13:26:00 Ryan Marie [facility] CONSENT/REFUSAL FOR DIAGNOSIS AND TREATMENT 2023-11-20 12:37:06 Doctor Unassigned, [place] [facility] CONSENT/REFUSAL FOR DIAGNOSIS AND TREATMENT 2023-11-12 06:04:20 Doctor Unassigned, [place] [facility] CONSENT/REFUSAL FOR DIAGNOSIS AND TREATMENT 2023-10-28 02:10:42 Doctor Unassigned, [place] [facility] URINALYSIS 2023-09-09 02:35:00 Danie Ontiveros U [facility] XR KUB 2023-09-09 01:28:00 Danie Ontiveros U [facility] CT LUMBAR SPINE WO CONTRAST 2023-09-09 01:02:05 Danie Ontiveros [facility] CONSENT/REFUSAL FOR DIAGNOSIS AND TREATMENT 2023-09-09 00:05:52 Doctor Unassigned, [place] [facility] POCT TEST 2023-09-07 13:28:00 Juli Srivastava ra [facility] URINALYSIS 2023-09-07 13:27:00 Chayo Srivastava [facility] CONSENT/REFUSAL FOR DIAGNOSIS AND TREATMENT 2023-09-07 12:42:21 Doctor Unassigned, [place] [facility] COMP. METABOLIC PANEL ([id number]) 2023-09-04 02:29:00 Selene Parra [facility] CBC WITH DIFF 2023-09-04 02:29:00 Selene Parra [facility] RAPID INFLUENZA A/B 2023-09-04 02:26:00 Selene Parra [facility] COVID-19 (ID NOW RAPID TESTING) 2023-09-04 02:26:00 Selene Parra [facility] ASSIGNMENT OF BENEFITS 2023-09-04 02:07:25 Docto r Unassigned, [place] [facility] CONSENT/REFUSAL FOR DIAGNOSIS AND TREATMENT 2023-09-04 00:46:16 Doctor Unassigned, [place] [facility] CONSENT/REFUSAL FOR DIAGNOSIS AND TREATMENT 2023-08-04 03:55:32 Doctor Unassigned, [place] [facility] URINALYSIS 2023-07-26 08:52:00 Memo Resendiz [facility] URINALYSIS 2023-07-26 08:20:00 Memo Resendiz [facility] ASSIGNMENT OF BENEFITS 2023-07-26 08:05:43 Docto r Unassigned, [place] [facility] CONSENT/REFUSAL FOR DIAGNOSIS AND TREATMENT 2023-07-26 07:33:52 Doctor Unassigned, [place] [facility] RAPID STREP SCREEN FOR GROUP A 2023-07-25 13:40:00 Danii Arriaga [facility] RAPID INFLUENZA A/B 2023-07-25 13:40:00 Minal Arriaga [facility] COVID-19 (ID NOW RAPID TESTING) 2023-07-25 13:40:00 Danii Arriaga [facility] XR CHEST 2 VW 2023-07-25 13:26:06 Danii Arriaga [facility] ASSIGNMENT OF BENEFITS 2023-07-25 13:17:29 Docto r Unassigned, [place] [facility] CONSENT/REFUSAL FOR DIAGNOSIS AND TREATMENT 2023-07-25 12:29:51 Doctor Unassigned, [place] [facility] XR CHEST 2 VW 2023-07-12 13:13:00 Doni Marie [facility] POCT TEST 2023-07-12 12:56:00 Ryan Marie [facility] CONSENT/REFUSAL FOR DIAGNOSIS AND TREATMENT 2023-07-12 12:27:58 Doctor Unassigned, [place] [facility] [id number] Colposcopy Cervix Uppr/adjcnt Vagina W/cervix Bx 2023-06-26 00:00:00 Darryl Ackerman [place] [id number] Endometrial Bx W/wo Endocervix Bx W/o Dilat Spx 2023-06-26 00:00:00 aDrryl Ackerman [place] CONSENT/REFUSAL FOR DIAGNOSIS AND TREATMENT 2023-06-24 10:15:34 Doctor Unassigned, [place] [facility] RAPID INFLUENZA A/B 2023-06-18 05:03:00 Michelle Terry [facility] RAPID RSV 2023-06-18 05:03:00 Michelle Terry [facility] COVID-19 (ID NOW RAPID TESTING) 2023-06-18 05:03:00 Michelle Terry [facility] CONSENT/REFUSAL FOR DIAGNOSIS AND TREATMENT 2023-06-18 04:46:39 Doctor Unassigned, [place] [facility] US OVARY TORSION 2023-06-12 08:14:06 [facility] 2023-06-12 05:07:00 Raven Lieberman [facility] COMP. METABOLIC PANEL (76030) 2023-06-12 05:02:00 Raevn Lieberman [facility] CBC WITH DIFF 2023-06-12 05:02:00 Raven Lieberman [facility] URINALYSIS 2023-06-12 05:02:00 Raven Lieberman [facility] NOTICE OF PRIVACY PRACTICES 2023-06-12 04:10:01 Doctor Unassigned, [place] [facility] CONSENT/REFUSAL FOR DIAGNOSIS AND TREATMENT 2023-06-12 04:06:29 Doctor Unassigned, [place] [facility] CT ABDOMEN PELVIS W CONTRAST 2023-05-28 07:44:47 Raven Lieberman [facility] POCT TEST 2023-05-28 06:40:00 Raven Lieberman [facility] COMP. METABOLIC PANEL (15167) 2023-05-28 06:34:00 Raven Lieberman [facility] CBC WITH DIFF 2023-05-28 06:34:00 Raven Lieberman [facility] URINALYSIS 2023-05-28 06:34:00 Raven Lieberman [facility] CONSENT/REFUSAL FOR DIAGNOSIS AND TREATMENT 2023-05-28 05:25:17 Doctor Unassigned, [place] [facility] [address] Removal Impacted Cerumen Using Irrigation/lavage, Unilateral 2023-04-30 00:00:00 Darryl Waggoner ASSIGNMENT OF BENEFITS 2023-03-07 04:54:51 Docto r Unassigned, [place] [facility] RAPID STREP SCREEN FOR GROUP A 2023-03-07 03:52:00 Hermilo Ricks [facility] CONSENT/REFUSAL FOR DIAGNOSIS AND TREATMENT 2023-03-07 02:58:48 Doctor Unassigned, [place] [facility] BASIC METABOLIC PANEL (NA, K, CL, CO2, GLUCOSE, BUN, CREATININE, CA) 2023-02-02 06:41:00 Selene Parra [facility] CBC WITH DIFF 2023-02-02 06:41:00 Selene Parra [facility] POCT TEST 2023-02-02 06:17:00 Selene Parra [facility] NOTICE OF PRIVACY PRACTICES 2023-02-02 06:00:34 Doctor Unassigned, [place] [facility] CONSENT/REFUSAL FOR DIAGNOSIS AND TREATMENT 2023-02-02 05:59:54 Doctor Unassigned, [place] [facility] CT ABDOMEN PELVIS W CONTRAST 2022-10-24 20:00:18 Suraj Scott [facility] US OVARY TORSION 2022-10-24 19:43:53 Suraj Scott [facility] LIPASE 2022-10-24 18:58:00 Suraj Scott [facility] COMP. METABOLIC PANEL (86124) 2022-10-24 18:58:00 Dale Suraj [facility] CBC WITH DIFF 2022-10-24 18:58:00 [facility] 2022-10-24 18:58:00 Suraj Scott Uni [facility] POCT TEST 2022-10-24 18:58:00 Odessa Scott [facility] CBC WITH DIFF 2022-07-21 13:07:00 Hermilo Ricks [facility] POCT TEST 2022-07-21 12:55:00 Jeanine Ricks [facility] URINALYSIS 2022-07-21 12:52:00 Singer [facility] CONSENT/REFUSAL FOR DIAGNOSIS AND TREATMENT 2022-07-21 12:44:40 Doctor Unassigned, [place] [facility] CT ABDOMEN PELVIS W CONTRAST 2022-05-19 21:32:53 Cat Rutledge [facility] LIPASE 2022-05-19 20:49:00 [facility] COMP. METABOLIC PANEL (60014) 2022-05-19 20:49:00 Cat Rutledge [facility] CBC WITH DIFF 2022-05-19 20:49:00 Cat Rutledge [facility] URINALYSIS 2022-05-19 20:49:00 [facility] POCT TEST 2022-05-19 20:49:00 Paxton Rutledge [facility] URINE DRUG (IMMUNOASSAY) - COMPREHENSIVE DRUG SCREEN W/O REFLEX 2022-05-19 20:49:00 Cat Rutledge [facility] CONSENT/REFUSAL FOR DIAGNOSIS AND TREATMENT 2022-05-19 20:16:10 Doctor Unassigned, [place] [facility] POCT TEST 2022-05-13 07:37:00 Selene Parra [facility] LIPASE 2022-05-13 07:32:00 Selene Parra [facility] COMP. METABOLIC PANEL (59473) 2022-05-13 07:32:00 Selene Parra [facility] CBC WITH DIFF 2022-05-13 07:32:00 Selene Parra [facility] URINALYSIS 2022-05-13 07:32:00 Selene Parra [facility] CONSENT/REFUSAL FOR DIAGNOSIS AND TREATMENT 2022-05-13 06:55:55 Doctor Unassigned, [place] [facility] XR ANKLE <3 VW RIGHT 2022-04-01 22:28:50 Deny Rg [facility] URINALYSIS 2022-04-01 22:21:00 Christy Rg [facility] POCT TEST 2022-04-01 22:19:00 Christy Rg [facility] CONSENT/REFUSAL FOR DIAGNOSIS AND TREATMENT 2022-04-01 21:40:47 Doctor Unassigned, [place] [facility] POCT TEST 2021-10-25 19:54:00 Lisa Tran [facility] URINALYSIS 2021-10-25 19:53:00 Lisa Tran [facility] CONSENT/REFUSAL FOR DIAGNOSIS AND TREATMENT 2021-10-25 19:34:46 Doctor Unassigned, [place] [facility] NOTICE OF PRIVACY PRACTICES 2021-10-25 19:34:06 Doctor Unassigned, [place] [facility] Plan of Care Planned Activity Planned Date Details Comments Source Goal Plan of Care Note [code = 20249-1] Goal Plan of Care Note [code = 99004-6] Goal Plan of Care Note [code = 15003-2] Goal Plan of Care Note [code = 90584-5] Goal Plan of Care Note [code = 84284-6] Goal Plan of Care Note [code = 96879-3] Goal Plan of Care Note [code = 23894-1] Goal Plan of Care Note [code = 91411-1] Goal Plan of Care Note [code = 21554-6] Goal Plan of Care Note [code = 84342-1] Goal Plan of Care Note [code = 87755-9] Goal Plan of Care Note [code = 93012-4] Goal Plan of Care Note [code = 65360-3] Goal Plan of Care Note [code = 71105-1] Goal Plan of Care Note [code = 32010-5] Goal Plan of Care Note [code = 53248-7] Goal Plan of Care Note [code = 36196-6] Goal Plan of Care Note [code = 77859-1] Goal Plan of Care Note [code = 53675-0] Goal Plan of Care Note [code = 90641-4] Goal Plan of Care Note [code = 87187-1] Goal Plan of Care Note [code = 92121-9] Goal Plan of Care Note [code = 92978-8] Goal Plan of Care Note [code = 15102-4] Goal Plan of Care Note [code = 86932-8] Encounters Start Date/Time End Date/Time Encounter Type Admission Type Attending [facility] Care Department Encounter ID Source 2025-03-08 21:35:00 2025-03-09 02:46:00 Emergency X Doni Marie [facility] 1.2.840.114 350.1.13.10 4.2.7.2.686 [id number] [facility] 2025-02-04 14:30:00 2025-02-04 16:26:04 Office Visit Pgy4 Kaye House Pgy4 [facility] ([facility]) 1.2.840.114 350.1.13.10 4.2.7.2.686 [id number] [facility] 2025-01-27 12:28:00 2025-01-27 13:54:00 Emergency X PATRICE HOLLAND OKREGGIE ERT [id number] [facility] 2025-01-27 12:28:00 2025-01-27 13:54:00 Emergency Patrice Holland [facility] 1.2.840.114 350.1.13.10 4.2.7.2.686 [id number] [id number] [facility] 2025-01-19 00:00:00 2025-01-21 08:15:33 Telephone Pgy4 Pgy4 [facility] ([facility]) 1.2.840.114 350.1.13.10 4.2.7.2.686 [id number] [facility] 2025-01-17 02:31:00 2025-01-17 04:24:00 Emergency X SELENE PARRA WAKILI [facility] ERT [id number] [facility] 2025-01-17 02:31:00 2025-01-17 04:24:00 Emergency Selene Parra [facility] 1.2.840.114 350.1.13.10 4.2.7.2.686 [id number] [id number] [facility] 2025-01-13 00:00:00 2025-01-16 10:06:01 Telephone Pgy4 Pgy4 [facility] ([facility]) 1.2.840.114 350.1.13.10 4.2.7.2.686 [id number] [facility] 2025-01-05 05:08:00 2025-01-05 09:45:00 Emergency X DONI MARIE DONNELL [facility] ERT [id number] [facility] 2025-01-05 05:08:00 2025-01-05 09:45:00 Emergency eHrmilo Ricks Donnell [facility] 1.2.840.114 350.1.13.10 4.2.7.2.686 [id number] [id number] [facility] 2024-12-19 08:24:26 2024-12-19 08:24:[address] [facility] [id number] Darryl Waggoner 2024-12-18 15:04:52 2024-12-18 15:04:52 Outpatient SFA [facility] [id number] Darryl Ackerman [place] 2024-12-17 23:56:00 2024-12-18 01:23:00 Emergency X SHILPAMICKEYMARTHA IsaacsCOURTNEYNICK [facility] ERT [id number] [facility] 2024-12-17 23:56:00 2024-12-18 01:23:00 Emergency AdedarbynatalieMartha isaacscourtneynick [facility] 1.2.840.114 350.1.13.10 4.2.7.2.686 [id number] [id number] [facility] 2024-12-18 00:00:00 2024-12-18 00:00:00 Outpatient Visit SFA [id number] Darryl Waggoner 2024-12-12 11:22:49 2024-12-12 11:22:49 Outpatient SFA [facility] [id number] Darryl Ackerman [place] 2024-11-28 09:13:53 2024-11-28 09:13:53 Outpatient SFA [facility] [id number] Darryl Ackerman [place] 2024-11-28 00:00:00 2024-11-28 00:00:00 Outpatient Visit SFA [id number] Darryl Waggoner 2024-11-27 09:21:53 2024-11-27 09:21:53 Outpatient SFA [facility] [id number] Darryl Ackerman [place] 2024-11-27 00:00:00 2024-11-27 00:00:00 Outpatient Visit SFA [id number] Darryl Waggoner 2024-11-18 21:05:00 2024-11-18 22:48:00 Emergency X SELENE PARRA WAKILI [facility] ERT [id number] [facility] 2024-11-18 21:05:00 2024-11-18 22:48:00 Emergency Selene Parra [facility] 1..114 350.1.13.10 4.2.7.2.686 [id number] [facility] 2024-11-08 22:41:00 2024-11-09 00:01:00 Emergency X CHRISTY RG PAMALA [facility] ERT [id number] [facility] 2024-11-08 22:41:00 2024-11-09 00:01:00 Emergency Christy Rg [facility] 1.84.114 350.1.13.10 4.2.7.2.686 [id number] [facility] 2024-10-22 09:57:20 2024-10-22 09:57:[address] [facility] [id number] Darryl Ackerman [place] 2024-10-22 00:00:00 2024-10-22 00:00:[address] [facility] [id number] Darryl Waggoner 2024-08-25 14:31:29 2024-08-25 14:31:[address] [facility] [id number] Darryl Ackerman [place] 2024-08-25 00:00:00 2024-08-25 00:00:[address] [facility] [id number] Darryl Waggoner 2024-07-25 07:55:00 2024-07-25 10:46:00 Emergency X DONI MARIE DONNELL [facility] ERT [id number] [facility] 2024-07-25 07:55:00 2024-07-25 10:46:00 Emergency Doni Marie [facility] .840.114 350.1.13.10 4.2.7.2.686 [id number] [facility] 2024-07-09 15:24:23 2024-07-09 15:24:[address] [facility] [id number] Darryl Waggoner 2024-07-09 00:00:00 2024-07-09 00:00:[address] [facility] [id number] Darryl Waggoner 2024-07-04 02:23:00 2024-07-04 06:07:00 Emergency X SELENE PARRAMERCEDESCHELSEA MONTANOSIDDHARTH [facility] ERT [id number] [facility] 2024-07-04 02:23:00 2024-07-04 06:07:00 Emergency Chelsea Parrasiddharth S [facility] 1.2.840.114 350.1.13.10 4.2.7.2.686 [id number] [facility] 2024-03-18 13:39:14 2024-03-18 13:39:14 Outpatient [facility] [id number] Darryl Waggoner 2024-03-18 00:00:00 2024-03-18 00:00:[address] [facility] [id number] Darryl Waggoner 2024-03-12 02:06:00 2024-03-12 06:07:00 Emergency X SELENE PARRA [facility] ERT [id number] [facility] 2024-03-12 02:06:00 2024-03-12 06:07:00 Emergency Selene Parra [facility] 1.2.840.114 350.1.13.10 4.2.7.2.686 [id number] [facility] 2024-03-06 11:34:36 2024-03-06 11:34:[address] [facility] [id number] Darryl Waggoner 2024-03-06 00:00:00 2024-03-06 00:00:[address] [facility] [id number] Darryl Waggoner 2024-02-03 03:57:00 2024-02-03 07:11:00 Emergency Selene Parra [facility] 1.2.840.114 350.1.13.10 4.2.7.2.686 [id number] [facility] 2024-01-01 22:28:00 2024-01-02 00:44:00 Emergency X DONI MARIE DONNELL [facility] ERT [id number] [facility] 2024-01-01 22:28:00 2024-01-02 00:44:00 Emergency Doni Marie [facility] 1.2.840.114 350.1.13.10 4.2.7.2.686 [id number] [facility] 2023-12-31 15:24:49 2023-12-31 15:24:[address] [facility] [id number] Darryl Waggoner 2023-12-26 03:53:00 2023-12-26 05:24:00 Emergency X SELENE PARRA [facility] ERT [id number] [facility] 2023-12-26 03:53:00 2023-12-26 05:24:00 Emergency Selene Parra [facility] 1.2.840.114 350.1.13.10 4.2.7.2.686 [id number] [facility] 2023-12-17 08:09:17 2023-12-17 08:09:[address] [facility] [id number] Darryl Waggoner 2023-11-20 06:45:00 2023-11-20 10:52:00 Emergency X DONI MARIE [facility] ERT [id number] [facility] 2023-11-20 06:45:00 2023-11-20 10:52:00 Emergency Doni Marie [facility] 1.2.840.114 350.1.13.10 4.2.7.2.686 [id number] [facility] 2023-11-14 13:08:33 2023-11-14 13:08:[address] [facility] [id number] Darryl Waggoner 2023-11-12 00:13:00 2023-11-12 01:10:00 Emergency X ATIF CHAYO [facility] ERT [id number] [facility] 2023-11-12 00:13:00 2023-11-12 01:10:00 Emergency Chayo Srivastava [facility] 1.2.840.114 350.1.13.10 4.2.7.2.686 [id number] [facility] 2023-10-27 20:33:00 2023-10-27 20:58:00 Emergency X Kavita OJEDA [facility] ERT [id number] [facility] 2023-10-27 20:33:00 2023-10-27 20:58:00 Emergency Kavita Ojeda Soledad [facility] 1.2.840.114 350.1.13.10 4.2.7.2.686 [id number] [facility] 2023-09-17 09:14:32 2023-09-17 09:14:[address] [facility] [id number] Darryl Ackerman [place] 2023-09-08 18:32:00 2023-09-08 21:46:00 Emergency X CHRISTY RG [facility] ERT [id number] [facility] 2023-09-08 18:32:00 2023-09-08 21:46:00 Emergency Danie Ontiveros Pamala G [facility] 1.2.840.114 350.1.13.10 4.2.7.2.686 [id number] [facility] 2023-09-07 06:47:00 2023-09-07 08:22:00 Emergency X CHAYO SRIVASTAVA [facility] ERT [id number] [facility] 2023-09-07 06:47:00 2023-09-07 08:22:00 Emergency Chayo Srivastava [facility] 1.2.840.114 350.1.13.10 4.2.7.2.686 [id number] [facility] 2023-09-03 18:57:00 2023-09-03 22:03:00 Emergency X CLAUDIA JAMESJOSE A [facility] ERT [id number] [facility] 2023-09-03 18:57:00 2023-09-03 22:03:00 Emergency Raquelanna Chelseasiddharth Mcrae [facility] 1.2.840.114 350.1.13.10 4.2.7.2.686 [id number] [facility] 2023-08-28 16:44:07 2023-08-28 16:44:07 Outpatient [facility] [id number] Darryl Waggoner 2023-08-03 23:07:00 2023-08-04 01:08:00 Emergency X STEFAN Kavita [facility] ERT [id number] [facility] 2023-08-03 23:07:00 2023-08-04 01:08:00 Emergency Kavita Ojeda [facility] 1.2.840.114 350.1.13.10 4.2.7.2.686 [id number] [facility] 2023-07-26 02:41:00 2023-07-26 04:25:00 Emergency X MEMO RESENDIZ [facility] ERT [id number] [facility] 2023-07-26 02:41:00 2023-07-26 04:25:00 Emergency VasTheresa marcialnt J [facility] 1.2.840.114 350.1.13.10 4.2.7.2.686 [id number] [facility] 2023-07-25 07:36:00 2023-07-25 10:13:00 Emergency X DANII ARRIAGA [facility] ERT [id number] [facility] 2023-07-25 07:36:00 2023-07-25 10:13:00 Emergency Rose Hoff Roxanne [facility] 1..840.114 350.1.13.10 4.2.7.2.686 [id number] [facility] 2023-07-24 08:14:55 2023-07-24 08:14:[address] [facility] [id number] Darryl Waggoner 2023-07-12 07:35:00 2023-07-12 09:00:00 Emergency X DONI MARIE [facility] ERT [id number] [facility] 2023-07-12 07:35:00 2023-07-12 09:00:00 Emergency Doni Marie [facility] 1.2.840.114 350.1.13.10 4.2.7.2.686 [id number] [facility] 2023-07-02 13:54:28 2023-07-02 13:54:[address] [facility] [id number] Darryl Waggoner 2023-06-26 13:20:40 2023-06-26 13:20:[address] [facility] [id number] Darryl Waggoner 2023-06-24 05:33:00 2023-06-24 06:50:00 Emergency X SELENE PARRA [facility] ERT [id number] [facility] 2023-06-24 05:33:00 2023-06-24 06:50:00 Emergency Selene Parra [facility] 1.2.840.114 350.1.13.10 4.2.7.2.686 [id number] [facility] 2023-06-20 16:08:31 2023-06-20 16:08:[address] [facility] [id number] Darryl Waggoner 2023-06-17 23:54:00 2023-06-18 01:35:00 Emergency X MICHELLE TERRY [facility] ERT [id number] [facility] 2023-06-17 23:54:00 2023-06-18 01:35:00 Emergency Michelle Terry [facility] 1.2.840.114 350.1.13.10 4.2.7.2.686 [id number] [facility] 2023-06-16 10:56:55 2023-06-16 10:56:[address] [facility] [id number] Darryl Waggoner 2023-06-14 13:35:05 2023-06-14 13:35:[address] [facility] [id number] Darryl Ackerman [place] 2023-06-12 11:11:07 2023-06-12 11:11:[address] [facility] [id number] Darryl Ackerman [place] 2023-06-11 23:25:00 2023-06-12 04:49:00 Emergency X RAVEN LIEBERMAN [facility] ERT [id number] [facility] 2023-06-11 23:25:00 2023-06-12 04:49:00 Emergency Raven Lieberman S [facility] 1.2.840.114 350.1.13.10 4.2.7.2.686 [id number] [facility] 2023-06-05 11:34:51 2023-06-05 11:34:[address] [facility] [id number] Darryl Waggoner 2023-05-28 08:05:43 2023-05-28 08:05:[address] [facility] [id number] Darryl Waggoner 2023-05-28 00:40:00 2023-05-28 04:06:00 Emergency X RAVEN LIEBERMAN [facility] ERT [id number] [facility] 2023-05-28 00:40:00 2023-05-28 04:06:00 Emergency Raven Lieberman [facility] 1.2.840.114 350.1.13.10 4.2.7.2.686 [id number] [facility] 2023-05-28 00:00:00 2023-05-28 00:00:00 Orders Only Doctor Unassigned, [place] [facility] 1.2.840.114 350.1.13.10 4.2.7.2.686 [id number] [facility] 2023-04-30 13:49:49 2023-04-30 13:49:[address] [facility] [id number] Darryl Waggoner 2023-04-23 08:52:34 2023-04-23 08:52:[address] [facility] [id number] Darryl Waggoner 2023-03-06 22:52:00 2023-03-07 00:12:00 Emergency X HERMILO RICKS [facility] ERT [id number] [facility] 2023-03-06 22:52:00 2023-03-07 00:12:00 Emergency Hermilo Ricks [facility] 1.2840.114 350.1.13.10 4.2.7.2.686 [id number] [facility] 2023-02-02 01:06:00 2023-02-02 02:49:00 Emergency X CLAUDIA CHELSEASIDDHARTH [facility] ERT [id number] [facility] 2023-02-02 01:06:00 2023-02-02 02:49:00 Emergency Raquelmercedesoriana Jamesjose a Thor [facility] 1.2.840.114 350.1.13.10 4.2.7.2.686 [id number] [facility] 2023-02-02 00:00:00 2023-02-02 00:00:00 Orders Only Doctor Unassigned, [place] [facility] 1.2.840.114 350.1.13.10 4.2.7.2.686 [id number] [facility] 2022-10-24 12:04:00 2022-10-24 15:45:00 Emergency X SURAJ SCOTT [facility] ERT [id number] [facility] 2022-10-24 12:04:00 2022-10-24 15:45:00 Emergency Suraj Scott [facility] 1.2.840.114 350.1.13.10 4.2.7.2.686 [id number] [facility] 2022-09-25 10:04:19 2022-09-25 10:04:19 Outpatient SFA [facility] [id number] Darryl Waggoner 2022-09-25 00:00:00 2022-09-25 00:00:00 Outpatient Visit [id number] 2022-07-21 07:49:00 2022-07-21 08:56:00 Emergency X HERMILO RICKS [facility] ERT [id number] [facility] 2022-07-21 07:49:00 2022-07-21 08:56:00 Emergency Hermilo Ricks [facility] 1..840.114 350.1.13.10 4.2.7.2.686 [id number] [id number] [facility] 2022-05-19 15:38:00 2022-05-19 17:24:00 Emergency X CAT RUTLEDGE [facility] ERT [id number] [facility] 2022-05-19 15:38:00 2022-05-19 17:24:00 Emergency Cat Rutledge [facility] 1.840.114 350.1.13.10 4.2.7.2.686 [id number] [id number] [facility] 2022-05-19 00:00:00 2022-05-19 00:00:00 Outpatient Visit [id number] -[id number] cb00bc 2022-05-13 02:08:00 2022-05-13 04:24:00 Emergency Selene Parra [facility] 1.840.114 350.1.13.10 4.2.7.2.686 [id number] [facility] 2022-05-13 02:08:00 2022-05-13 04:24:00 Emergency X SELENE PARRA [facility] ERT [id number] [facility] 2022-04-01 16:48:00 2022-04-01 18:39:00 Emergency X CHRISTY RG [facility] ERT [id number] [facility] 2022-04-01 16:48:00 2022-04-01 18:39:00 Emergency LandyChristy Byron [facility] 1..114 350.1.13.10 4.2.7.2.686 [id number] [id number] [facility] 2022-04-01 00:00:00 2022-04-01 00:00:00 Orders Only Doctor Unassigned, [place] [facility] 1.2840.114 350.1.13.10 4.2.7.2.686 [id number] [facility] 2021-10-25 13:44:00 2021-10-25 15:25:00 Emergency X LISA TRAN [facility] ERT [id number] [facility] 2021-10-25 13:44:00 2021-10-25 15:25:00 Emergency Lisa Tran [facility] 1.2.840.114 350.1.13.10 4.2.7.2.686 [id number] [id number] [facility] 2021-10-25 00:00:00 2021-10-25 00:00:00 Orders Only Doctor Unassigned, [place] [facility] 1..840.114 350.1.13.10 4.2.7.2.686 [id number] [facility] 2021-05-03 17:49:00 2021-05-04 02:46:00 Emergency [facility] [id number] [facility] 2021-04-16 21:16:42 2021-04-22 13:04:00 Inpatient [facility] [id number] [facility] 2021-04-08 17:04:00 2021-04-08 17:04:00 Emergency X ROCHELLE GOLD [facility] ERT [id number] [facility] 2021-04-08 02:42:00 2021-04-08 02:42:00 Emergency X LISA TRAN [facility] ERT [id number] [facility] 2021-03-24 18:36:00 2021-03-24 18:36:00 Emergency X [facility] ERT [id number] [facility] Results Test Description Test Time Test Comments Results Resul t Comments Source US Ovary torsion 2025-02-13 05:13:32 EXAM: US OVARY TORSION ORDERING PROVIDER: DONI MARIE HISTORY: 34 years-old Female; Provided indication: r/o ovarian torsion . LMP = 02/22/2025Pregnancy test = Negative. TECHNIQUE: Transabdominal and transvaginal ultrasound imaging and colorDoppler evaluation of the pelvis was performed. Spectral Doppler evaluationof the ovaries was performed. Furniture [employer] images were obtained for therecord. COMPARISON: Pelvic ultrasound obtained on 11/20/2023, CT abdomen pelvisobtained on 01/17/2025 FINDINGS: Uterus: The uterus measures 8.1 x 5.1 x 6.4 cm. The myometrium is heterogenous withat least one subcentimeter fibroid at the fundus. Nabothian cysts arepresent at the cervix.The endometrium is 0.9 cm thick. Right Adnexa:Ovary: The right ovary measures 3.8 x 2.9 x 3.6 cm with a volume of 21.1ml. Normal arterial and venous waveforms are visualized. Normal flow isseen on color Doppler. No suspicious lesion is seen. A 3.2 cm simple cystdoes not require further follow-up in a premenopausal patient. Left Adnexa:Ovary: The left ovary measures 3.1 x 2.5 x 3.2 cm with a volume of 12.9 ml.Normal arterial and venous waveforms are visualized. Normal flow is seen oncolor Doppler. No suspicious lesion is seen. A small corpus luteum isnoted. Cul-de-sac: A small volume of free fluid is present. [facility] [id number] 19:16:00* Test Item Value Reference Range Interpretation Comme [facility] POCT PREG (test code = 1605) Negative On board controls acceptable with C Line (test code = 3574) Yes POCT PREG LOT # (test code = 3575) POCT PREG TEST DATE ( test code = 3576) Lab Interpretation (test cod e = 71602-6) Normal [facility] Glucose(Age >30days)2025-01-27 18:50:00* Test Item Value Reference Range Interpretation Comme [facility] POCT Glu (age>30days) (test code = 3342) 81 mg/dL 70-110 Lab Interpretation (test cod e = 19917-3) Normal [facility] GLUCOSE (AUTOMATED)2025-01-27 18:48:29* Test Item Value Reference Range Interpretation Comme [facility] POCT GLU (test code = 9843555924) 81 mg/dL 70-110 Lab Interpretation (test cod e = 06997-2) Normal [facility] Abdomen pelvis w [id number] 08:59:03Examination: Computed tomography of the abdomen and pelvis with contrast Ordering Physician: MANFRED PARRA Date: 01/17/2025 3:15 AM History: Nausea/vomiting RUQ PPAIN, N/V Comparison: 11/20/2023 Technique: Computed tomography of the abdomen and pelvis was performedafter the administration of nonionic intravenous contrast. ?Exams wereperformed using dose reduction techniques according to ALARA (as low asreasonably achievable) principles. Findings: Chronic atelectasis or scarring is noted at the left lung basewith some bronchiectasis in the inferior lingula and a few scattered smallnodules in the left lower lobe, unchanged. The liver, gallbladder, spleen, pancreas, adrenal glands and kidneysdemonstrate no acute finding. No hydronephrosis. No dilated or thickened bowel loops noted. Normal appendix. There is noevidence of small bowel obstruction. Trace free fluid in the pelvis. No free air. The portal and splenic veinsare patent. No enlarged adenopathy. Uterusr and right adnexa are unremarkable. Small cyst in the left ovarymeasures 2.8 cm. Urinary bladder is decompressed. Bone windows show no suspicious lytic or blastic bony lesion. [facility] [id number] 07:59:26* Test Item Value Reference Range Interpretation Comme nts NA (test code = 6508012980) 136 mmol/L 135-145 K (test code = 7542969103) 3.7 mmol/L 3.5-5.0 CL (test code = 8052474261) 108 mmol/L 98-108 CO2 TOTAL (test code = 6335620003) 18 mmol/L 23-31 L AGAP (test code = 7428484890) 10 2-16 BUN (test code = 7654502949) 6 mg/dL 7-23 L GLUCOSE (test code = 9280800542) 100 mg/dL 70-110 CREATININE (test code = 2160-0) 0.76 mg/dL 0.50-1.04 TOTAL BILI (test code = 8917569911) 0.3 mg/dL 0.1-1.1 CALCIUM (test code = 6887770030) 9.2 mg/dL 8.6-10.6 T PROTEIN (test code = 5436879412) 8.0 g/dL 6.3-8.2 ALBUMIN (test code = 3019084115) 4.7 g/dL 3.5-5.0 ALK PHOS (test code = 2950865401) 88 U/L 34-122 ALTv (test code = 1742-6) 15 U/L 5-35 AST(SGOT) (test code = 5608593808) 19 U/L 13-40 eGFR (test code = 55581-3) 106.3 mL/min/1.73m2 CKD-EPI eGFR (2020). Assuming creatinine has been stable day-to-day for at least three months, the eGFR indicates Category G1 (>= 90 mL/min/1.73 m2) Lab Interpretation (test code = 56022-0) Abnormal [facility] CenterLip[facility], [id number] 07:59:26* Test Item Value Reference Range Interpretation Comme nts LIPASE (test code = 7168034558) 206 U/L 0-220 Lab Interpretation (test cod e = 27906-6) Normal [facility] CenterCBC with Fggqvwfiicyc1592-94-44 07:47:02* Test Item Value Reference Range Interpretation Comme nts WBC (test code = 6690-2) 7.77 4.30-11.10 RBC (test code = 789-8) 4.40 3.93-5.25 HGB (test code = 718-7) 9.5 g/dL 11.6-15.0 L HCT (test code = 4544-3) 32.2 % 35.7-45.2 L MCV (test code = 787-2) 73.2 fL 80.6-95.5 L MCH (test code = 785-6) 21.6 pg 25.9-32.8 L MCHC (test code = 786-4) 29.5 g/dL 31.6-35.1 L RDW-SD (test code = 41636-9) 41.8 fL 39.0-49.9 RDW-CV (test code = 788-0) 15.8 % 12.0-15.5 H PLT (test code = 777-3) 391 166-358 H MPV (test code = 74886-7) 10.1 fL 9.5-12.9 NRBC/100 WBC (test code = 7343535366) 0.0 0.0-10.0 NRBC x10^3 (test code = 6387284992) See_Comment [Automated messa ge] The system which generated this result transmitted reference range: 10*3/?L. The reference range was not used to interpret this result as normal/abnormal. GRAN MAT (NEUT) % (test code = 770-8) 43.1 % IMM GRAN % (test code = 1178834767) 0.10 % LYMPH % (test code = 736-9) 43.8 % MONO % (test code = 5905-5) 9.1 % EOS % (test code = 713-8) 3.3 % BASO % (test code = 706-2) 0.6 % GRAN MAT x10^3(ANC) (test code = 4087549763) 3.34 10*3/uL 1.88-7.09 IMM GRAN x10^3 (test code = 1857198103) 0.00-0.06 LYMPH x10^3 (test code = 731-0) 3.40 10*3/uL 1.32-3.29 H MONO x10^3 (test code = 742-7) 0.71 10*3/uL 0.33-0.92 EOS x10^3 (test code = 711-2) 0.26 10*3/uL 0.03-0.39 BASO x10^3 (test code = 704-7) 0.05 10*3/uL 0.01-0.07 Lab Interpretation (test code = 41094-8) Abnormal [facility] CenterPO[facility] [id number] 07:32:00* Test Item Value Reference Range Interpretation Comme nts POCT PREG (test code = 1605) Negative On board controls acceptable with C Line (test code = 3574) Yes POCT PREG LOT # (test code = 3575) [id number] POCT PREG TEST DATE ( test code = 3576) Lab Interpretation (test cod e = 67483-1) Normal [facility] CenterCT Abdomen pelvis w nrsfksjq1425-76-89 13:55:36EXAM: CT ABDOMEN PELVIS W CONTRAST 01/05/2025 7:06 AM HISTORY: 34 years- old Female with one week of viral syndrome. Vomiting,nausea, diarrhea for 4 days.. COMPARISON: CT abdomen pelvis with contrast 07/04/2024. TECHNIQUE: Contiguous axial imaging from the level of the lung basesthrough the upper thigh s was performed after the administration ofintravenous nonionic iodinated contrast. Abdomen was scanned in venousphase. Corresponding coronal and sagittal MPR reconstructions wereobtained. FINDINGS: LOWER THORAX: The lungs bases are clear. No pleural effusions arevisualized. No cardiomegaly. LIVER:The liver has normal parenchyma and size. Unchanged right hepaticlobe indeterminate hypodensity measuring up to 1.1 cm (series 2 image 32).The portal veins are patent. GALLBLADDER AND BILIARY TREE: The gallbladder is unremarkable. There is nointra or extrahepatic biliary ductal dilation. SPLEEN: The spleen enhances normally. PANCREAS: The pancreas enhances normally without ductal dilation. ADRENAL GLANDS: No adrenal nodules. KIDNEYS: The kidneys show symmetric enhancement. No hydronephrosis. Nonephrolithiasis. No masses are visualized. PELVIS/BLADDER: The urinary bladder is unremarkable. ?Unremarkablereproductive organs. GI TRACT: No bowel dilatation or wall thickening. The appendix is adelia l(series 2 image 99).. PERITONEUM AND RETROPERITONEUM: No free air or free fluid. LYMPH NODES: No enlarged lymphadenopathy. VESSELS: Unremarkable. BONES AND SOFT TISSUES: No aggressive bone lesions.[facility] POCT [id number] 11:58:00* Test Item Value Reference Range Interpretation Comme nts POCT PREG (test code = 1605) Negative On board controls acceptable with C Line (test code = 3574) Yes POCT PREG LOT # (test code = 3575) [id number] POCT PREG TEST DATE ( test code = 3576) 6395340 Lab Interpretation (test cod e = 97431-0) Normal [facility] CenterComp. Metabolic Panel (83814)2025-01-05 10:57:03* Test Item Value Reference Range Interpretation Comme nts NA (test code = 1520606619) 137 mmol/L 135-145 K (test code = 3438280845) 3.7 mmol/L 3.5-5.0 CL (test code = 7391171773) 107 mmol/L 98-108 CO2 TOTAL (test code = 2502915996) 19 mmol/L 23-31 L AGAP (test code = 3526423101) 11 2-16 BUN (test code = 9587599775) 2 mg/dL 7-23 L GLUCOSE (test code = 5942032532) 114 mg/dL 70-110 H CREATININE (test code = 2160-0) 0.89 mg/dL 0.50-1.04 TOTAL BILI (test code = 0435694773) 0.3 mg/dL 0.1-1.1 CALCIUM (test code = 5778636238) 9.4 mg/dL 8.6-10.6 T PROTEIN (test code = 1131887216) 7.5 g/dL 6.3-8.2 ALBUMIN (test code = 9957768075) 4.3 g/dL 3.5-5.0 ALK PHOS (test code = 2825559321) 88 U/L 34-122 ALTv (test code = 1742-6) 21 U/L 5-35 AST(SGOT) (test code = 9640901198) 27 U/L 13-40 eGFR (test code = 05736-9) 87.9 mL/min/1.73m2 CKD-EPI eGFR (2020). Assuming creatinine has been stable day-to-day for at least three months, the eGFR indicates Category G2 (60 - 89 mL/min/1.73 m2) Lab Interpretation (test code = 05752-1) Abnormal [facility] CenterXR Chest 1 [id number] 10:54:58Study: Single view chest. Ordering Physician: RAFAEL RICKS Date: 01/05/2025 5:15 AM History:Shortness of breath, chest pain, tachycardia COMPARISON: None. Findings: Single frontal view chest demonstrates a normal heart size. Thelungs are clear without infiltrate, pleural effusion or pneumothorax.Noacute osseous abnormality is identified.[facility] CenterCb with [id number] 10:39:44 * Test Item Value Reference Range Interpretation Comme nts WBC (test code = 6690-2) 8.24 4.30-11.10 RBC (test code = 789-8) 4.21 3.93-5.25 HGB (test code = 718-7) 9.4 g/dL 11.6-15.0 L HCT (test code = 4544-3) 31.6 % 35.7-45.2 L MCV (test code = 787-2) 75.1 fL 80.6-95.5 L MCH (test code = 785-6) 22.3 pg 25.9-32.8 L MCHC (test code = 786-4) 29.7 g/dL 31.6-35.1 L RDW-SD (test code = 22496-9) 44.0 fL 39.0-49.9 RDW-CV (test code = 788-0) 16.2 % 12.0-15.5 H PLT (test code = 777-3) 400 166-358 H MPV (test code = 78037-5) 9.7 fL 9.5-12.9 NRBC/100 WBC (test code = 4791205821) 0.0 0.0-10.0 NRBC x10^3 (test code = 1890934149) See_Comment [Automated messa ge] The system which generated this result transmitted reference range: 10*3/?L. The reference range was not used to interpret this result as normal/abnormal. GRAN MAT (NEUT) % (test code = 770-8) 70.3 % IMM GRAN % (test code = 3908692589) 0.20 % LYMPH % (test code = 736-9) 16.6 % MONO % (test code = 5905-5) 8.0 % EOS % (test code = 713-8) 4.5 % BASO % (test code = 706-2) 0.4 % GRAN MAT x10^3(ANC) (test code = 6034711724) 5.79 10*3/uL 1.88-7.09 IMM GRAN x10^3 (test code = 8172211043) 0.00-0.06 LYMPH x10^3 (test code = 731-0) 1.37 10*3/uL 1.32-3.29 MONO x10^3 (test code = 742-7) 0.66 10*3/uL 0.33-0.92 EOS x10^3 (test code = 711-2) 0.37 10*3/uL 0.03-0.39 BASO x10^3 (test code = 704-7) 0.03 10*3/uL 0.01-0.07 Lab Interpretation (test code = 13377-4) Abnormal [facility] [id number] 06:15:00* Test Item Value Reference Range Interpretation Comme nts POCT PREG (test code = 1605) Negative On board controls acceptable with C Line (test code = 3574) Yes POCT PREG LOT # (test code = 3575) 356309 POCT PREG TEST DATE ( test code = 3576) 03/09/26 Lab Interpretation (test cod e = 38132-0) Normal [facility] CenterPAP TEST, THINPREP, IMAGED AND HPV HIGH RISK WITH [id number] 00:00:00* Test Item Value Reference Range Interpretation Comme nts SOURCE: (test code = 8001) Unspecified SLIDES: (test code = 8011) 1 LMP: (test code = 8021) NOT GIVEN SPECIMEN ADEQUACY: (test code = 25038) (NOTE) INTERPRETATION: (test code = 29301) NILM/NO EPITH. ABNORMALITY;SEE BELOW BRUSHER OPERATOR: (test code = 8101) TIERA FOSS(ASCP)IAC QC TECHNOLOGIST: (test code = 8111) TIERA Stauffer(ASCP) LOCATION: (test code = 09936) (NOTE) CPT: (test code = 8140) 07382 HPV HIGH RISK INTERP (test code = 39191) POSITIVE HPV 16 (test code = 65289) NEGATIVE HPV 18 (test code = 29425) NEGATIVE HPV, HR, OTHER GENOTYPES (test code = 15425) POSITIVE PDFE (test code = PDFReport) PDF [facility] Ackerman [facility] ABDOMEN ACUTE [id number] 14:50:35EXAM: XR ABDOMEN ACUTE SERIES COMPARISON: Abdominal radiograph dated 09/08/2023. HISTORY: vomiting F INDINGS: Lungs: The lungs are adequately expanded. No focal opacities or pleuralabnormality. Heart/Mediastinum: The cardiac silhouette appears normal accounting fortechnique and degree of inspiration. Bones and soft tissues: No osseous abnormality is visualized. No pathologically dilated bowel loops or obstructive process is detected. No radiopaque stones identified. No acute bony abnormality is present.[facility] TEST 2024-07-25 13:23:00* Test Item Value Reference Range Interpretation Comme nts POCT PREG (test code = 1605) Negative On board controls acceptable with C Line (test code = 3574) Yes POCT PREG LOT # (test code = 3575) 184177 POCT PREG TEST DATE ( test code = 3576) 10/20/2025 Lab Interpretation (test cod e = 56620-8) Normal [facility] ABDOMEN PELVIS W [id number] 09:44:53Examination: Computed tomography of the abdomen and [...] show no suspicious lytic or blastic bony lesion.[facility] Vedx4674-27-59 07:36:00 * Test Item Value Reference Range Interpretation Comme nts POCT PREG (test code = 1605) Negative On board controls acceptable with C Line (test code = 3574) Yes POCT PREG LOT # (test code = 3575) 697912 POCT PREG TEST DATE ( test code = 3576) 07/24/2025 Lab Interpretation (test cod e = 11818-0) Normal [facility] ABDOMEN PELVIS W [id number] 10:12:02Examination: Computed tomography of the abdomen and [...] show no suspicious lytic or blastic bony lesion.[facility]. Metabolic Panel (08575)2024-03-12 09:27:38* Test Item Value Reference Range Interpretation Comme nts NA (test code = 8770084398) 137 mmol/L 135-145 K (test code = 8303015352) 3.8 mmol/L 3.5-5.0 CL (test code = 4373470966) 107 mmol/L 98-108 CO2 TOTAL (test code = 1219463778) 20 mmol/L 23-31 L AGAP (test code = 8248874680) 10 2-16 BUN (test code = 7354492998) 6 mg/dL 7-23 L GLUCOSE (test code = 7543795089) 94 mg/dL 70-110 CREATININE (test code = 2160-0) 0.83 mg/dL 0.50-1.04 TOTAL BILI (test code = 0919108361) 0.4 mg/dL 0.1-1.1 CALCIUM (test code = 7500262551) 9.2 mg/dL 8.6-10.6 T PROTEIN (test code = 5867841116) 7.6 g/dL 6.3-8.2 ALBUMIN (test code = 1542637686) 4.2 g/dL 3.5-5.0 ALK PHOS (test code = 1328845969) 73 U/L 34-122 ALTv (test code = 1742-6) 18 U/L 5-35 AST(SGOT) (test code = 4422980711) 24 U/L 13-40 eGFR (test code = 14193-7) 96.2 mL/min/1.73m2 CKD-EPI eGFR (2020). Assuming creatinine has been stable day-to-day for at least three months, the eGFR indicates Category G1 (>= 90 mL/min/1.73 m2) Lab Interpretation (test code = 17666-4) Abnormal [facility] CenterLipase2024-05-29 09:26:57* Test Item Value Reference Range Interpretation Comme nts LIPASE (test code = 8927330699) 108 U/L 0-220 Lab Interpretation (test cod e = 89253-0) Normal [facility] with Gfud2815-91-20 09:13:56* Test Item Value Reference Range Interpretation [...] g/dL 31.6-35.1 L RDW-SD (test code = 26450-8) 42.4 fL 39.0-49.9 RDW-CV (test code = 788-0) 15.7 % 12.0-15.5 H PLT (test code = 777-3) 346 166-358 MPV (test code = 41533-9) 9.8 fL 9.5-12.9 NRBC/100 WBC (test code = 4944626377) 0.0 0.0-10.0 NRBC x10^3 (test code = 7370122733) See_Comment [Automated Buscatucancha.coma ge] The system which generated this result transmitted reference range: 10*3/?L. The reference range was not used to interpret this result as normal/abnormal. GRAN MAT (NEUT) % (test code = 770-8) 43.3 % IMM GRAN % (test code = 4445164041) 0.30 % LYMPH % (test code = 736-9) 42.6 % MONO % (test code = 5905-5) 7.5 % EOS % (test code = 713-8) 5.5 % BASO % (test code = 706-2) 0.8 % GRAN MAT x10^3(ANC) (test code = 1456603662) 3.21 10*3/uL 1.88-7.09 IMM GRAN x10^3 (test code = 9947754576) 0.00-0.06 LYMPH x10^3 (test code = 731-0) 3.16 10*3/uL 1.32-3.29 MONO x10^3 (test code = 742-7) 0.56 10*3/uL 0.33-0.92 EOS x10^3 (test code = 711-2) 0.41 10*3/uL 0.03-0.39 H BASO x10^3 (test code = 704-7) 0.06 10*3/uL 0.01-0.07 Lab Interpretation (test code = 55850-7) Abnormal [facility] CenterEBV-Mononucleosis [id number] 11:45:15* Test Item Value Reference Range Interpretation Comme nts EBV Mononucleosis Screen (te st code = 2607261240) Negative Negative Lab Interpretation (test cod e = 61102-9) Normal [facility] CenterCT ABDOMEN PELVIS W [id number] 10:26:21ORDERING PHYSICIAN: SELENE PARRA CLINICAL HISTORY: Abdominal [...] the pelvis. Appendixis normal. The bones are unremarkable.[facility] CenterPOGA Gwvo5272-17-92 09:09:00* Test Item Value Reference Range Interpretation Comme [facility] POCT PREG (test code = 1605) Negative On board controls acceptable with C Line (test code = 3574) Yes POCT PREG LOT # (test code = 3575) 026055 POCT PREG TEST DATE ( test code = 3576) 11/21/2024 Lab Interpretation (test cod e = 22718-5) Normal [facility] CenterS[facility] PATHOLOG[facility] [id number] 09:50:51* Test Item Value Reference Range Interpretation Comme [facility] DIAGNOSIS: (test code = 8200) (NOTE) A) Conization (L EEP) - EctocervixHigh grade squamous intraepithelial lesion (CIN2), extendingfocally to endocervical and ectocervical/stromal margins. B) Conization (LEEP) - EndocervixFocal high grade squamous intraepithelial lesion (CIN2).Surgical margins negative for dysplasia. COMMENTS: (test code = 8205) (NOTE) The previously r eported abnormal Pap (accession # [id number]) isreviewed. The biopsy material more clearly displays [...] TanNUMBER OF TISSUE PIECES: 2SUBMITTED IN CASSETTE(S): [id number]: FormalinCOMMENTS:Consists of a 1.9x1.1x0.5 cm irregularly shaped [...] TanNUMBER OF TISSUE PIECES: 1SUBMITTED IN CASSETTE(S): [id number]: FormalinCOMMENTS:[place] shaped rubbery tissue fragment partially surfaced bytan-white ectocervix. Os is inked blue by clinician. Endocervicalmargin inked blue. All remaining margins inked orange. Radiallysectioned x 9 and entirely submitted. Specimen fell apart uponsectioning. PATHOLOGIST: (test code = 8250) (NOTE) Heide Shipley MD, Board-certified Anatomic and ClinicalPathology, Hematopathology Specimens processed and interpreted at [facility], [address] [place] [id number], , CLIA: [id number] CPT: (test code = 8400) (NOTE) [id number] UNLESS O THERWISE INDICATED, ALL TESTING PERFORMED AT [facility] [address] [place] [id number] [employer] TEAM MEMBER: ANIBAL PAREDES M.D. CLIA NUMBER [id number] [facility] [place]. [id number] SURGICAL PATHOLOGY [id number] 00:00:00* Test Item Value Reference Range Interpretation Comme nts DIAGNOSIS: (test code = 8200) (NOTE) COMMENTS: (test code = 8205) (NOTE) MICROSCOPIC DESCRIPTION: (te st code = 8210) (NOTE) CLINICAL DATA: (test code = 8401) (NOTE) GROSS DESCRIPTION: (test code = 8220) (NOTE) PATHOLOGIST: (test code = 8250) (NOTE) CPT: (test code = 8400) (NOTE) PDFE (test code = PDFReport) PDF [facility] [place] [facility] [id number] 00:00:00* Test Item Value Reference Range Interpretation [...] = PDFReport) PDF [facility] [id number] 00:00:00* Test Item Value Reference Range Interpretation [...] = PDFReport) PDF [facility] [id number] 00:00:00* Test Item Value Reference Range Interpretation [...] = PDFReport) PDF [facility]ck[facility] [place] [id number] 00:00:00* Test Item Value Reference Range Interpretation Comme nts DIAGNOSIS: (test code = 8200) (NOTE) COMMENTS: (test code = 8205) (NOTE) MICROSCOPIC DESCRIPTION: (te st code = 8210) (NOTE) CLINICAL DATA: (test code = 8401) (NOTE) GROSS DESCRIPTION: (test code = 8220) (NOTE) PATHOLOGIST: (test code = 8250) (NOTE) CPT: (test code = 8400) (NOTE) PDFE (test code = PDFReport) PDF [facility] [place] [facility] [id number] 00:00:00* Test Item Value Reference Range Interpretation [...] = PDFReport) PDF Darryl Ackerman AustinSURGICAL PATHOLOGY [id number] 00:00:00* Test Item Value Reference Range Interpretation Comme nts DIAGNOSIS: (test code = 8200) (NOTE) COMMENTS: (test code = 8205) (NOTE) MICROSCOPIC DESCRIPTION: (te st code = 8210) (NOTE) CLINICAL DATA: (test code = 8401) (NOTE) GROSS DESCRIPTION: (test code = 8220) (NOTE) PATHOLOGIST: (test code = 8250) (NOTE) CPT: (test code = 8400) (NOTE) PDFE (test code = PDFReport) PDF Darryl Ackerman [place] [id number] 00:00:00* Test Item Value Reference Range Interpretation [...] code = PDFReport) PDF Darryl Chang OVARY [id number] 16:27:21EXAM: US OVARY TORSION HISTORY: 32 years [...] None [place]: Trace volume free fluid is present.[facility] [id number] 15:15:04EXAM: CT ABDOMEN PELVIS W CONTRAST HISTORY: [...] No suspicious lytic or sclerotic bony lesions arepresent.[facility]. METABOLIC PANEL (74651)2023-11-20 14:09:45* Test Item Value Reference Range Interpretation Comme nts NA (test code = 9762855519) 135 mmol/L 135-145 K (test code = 0106990452) 4.1 mmol/L 3.5-5.0 CL (test code = 0149692484) 112 mmol/L 98-108 H CO2 TOTAL (test code = 8959669444) 17 mmol/L 23-31 L AGAP (test code = 6811774466) 6 2-16 BUN (test code = 3780673690) 10 mg/dL 7-23 GLUCOSE (test code = 6352356627) 95 mg/dL 70-110 CREATININE (test code = 4999970652) 0.72 mg/dL 0.50-1.04 TOTAL BILI (test code = 3384906298) 0.2 mg/dL 0.1-1.1 CALCIUM (test code = 9028012846) 9.0 mg/dL 8.6-10.6 T PROTEIN (test code = 6186577991) 7.6 g/dL 6.3-8.2 ALBUMIN (test code = 1580812367) 4.3 g/dL 3.5-5.0 ALK PHOS (test code = 2593946561) 81 U/L 34-122 ALTv (test code = 1742-6) 23 U/L 5-35 AST(SGOT) (test code = 5395356585) 26 U/L 13-40 eGFR (test code = 06962-7) 114.8 mL/min/1.73m2 CKD-EPI eGFR (2020). Assuming creatinine has been stable day-to-day for at least three months, the eGFR indicates Category G1 (>= 90 mL/min/1.73 m2) Lab Interpretation (test code = 46055-5) Abnormal [facility] WITH [id number] 13:53:43* Test Item Value Reference Range Interpretation [...] g/dL 31.6-35.1 L RDW-SD (test code = 10642-5) 42.6 fL 39.0-49.9 RDW-CV (test code = 788-0) 15.5 % 12.0-15.5 PLT (test code = 777-3) 364 166-358 H MPV (test code = 01781-4) 10.0 fL 9.5-12.9 NRBC/100 WBC (test code = 9751894721) 0.0 0.0-10.0 NRBC x10^3 (test code = 8721964849) See_Comment [Automated messa ge] The system which generated this result transmitted reference range: 10*3/?L. The reference range was not used to interpret this result as normal/abnormal. GRAN MAT (NEUT) % (test code = 770-8) 59.8 % IMM GRAN % (test code = 4783503880) 0.30 % LYMPH % (test code = 736-9) 27.8 % MONO % (test code = 5905-5) 9.2 % EOS % (test code = 713-8) 2.1 % BASO % (test code = 706-2) 0.8 % GRAN MAT x10^3(ANC) (test code = 8264135553) 3.70 10*3/uL 1.88-7.09 IMM GRAN x10^3 (test code = 8422612203) 0.00-0.06 LYMPH x10^3 (test code = 731-0) 1.72 10*3/uL 1.32-3.29 MONO x10^3 (test code = 742-7) 0.57 10*3/uL 0.33-0.92 EOS x10^3 (test code = 711-2) 0.13 10*3/uL 0.03-0.39 BASO x10^3 (test code = 704-7) 0.05 10*3/uL 0.01-0.07 Lab Interpretation (test code = 33521-6) Abnormal [facility] [id number] 13:26:00* Test Item Value Reference Range Interpretation Comme nts POCT PREG (test code = 1605) Negative On board controls acceptable with C Line (test code = 3574) Yes POCT PREG LOT # (test code = 3575) [id number] POCT PREG TEST DATE ( test code = 3576) 01/20/2025 Lab Interpretation (test cod e = 68052-1) Normal [facility] [id number] 13:28:00* Test Item Value Reference Range Interpretation Comme nts POCT PREG (test code = 1605) Negative On board controls acceptable with C Line (test code = 3574) Yes POCT PREG LOT # (test code = 3575) [id number] POCT PREG TEST DATE ( test code = 3576) 12/23/2024 Lab Interpretation (test cod e = 39982-4) Normal [facility], NAAT, [id number] 18:43:32* Test Item Value Reference Range Interpretation Comme nts CHLAMYDIA, NAAT, URINE (test code = 81801) NEGATIVE NEGATIVE Testing is perfo rmed with Lucie HARRY 6800/8800 systems usingreal-time polymerase chain reaction (PCR) method. A negative result does not exclude low level infection, specimensampling error, or collection error. GONORRHEA, NAAT, URINE (test code = 39035) NEGATIVE NEGATIVE Testing is perfo rmed with Lucie HARRY 6800/8800 systems usingreal-time polymerase chain reaction (PCR) method. A negative result does not exclude low level infection, specimensampling error, or collection error. UNLESS OTHERWISE INDICATED, ALL TESTING PERFORMED AT [facility] [address] [place] [address] BIOINFORMATICS TEAM MEMBER: ANIBAL PAREDES M.D. [place] NUMBER [id number] [facility] [place]. [id number] TRICHOMONAS, NAAT, [id number] 16:46:16* Test Item Value Reference Range Interpretation Comme nts TRICHOMONAS, NAAT, URINE (test code = 45637) NEGATIVE NEGATIVE Testing is perfo rmed with Lucie HARRY 6800/8800 method usingreal-time polymerase chain reaction (PCR) method. A negative result does not exclude low level infection, specimensampling error, or collection error. TRICHOMONAS, URINE, [id number] 00:00:00* Test Item Value Reference Range Interpretation Comme nts TRICHOMONAS, NAAT, URINE (te st code = 16777) NEGATIVE Darryl F AustinCT/NG, TMA, [id number] 00:00:00* Test Item Value Reference Range Interpretation Comme nts CHLAMYDIA, NAAT, URINE (test code = 05738) NEGATIVE GONORRHEA, NAAT, URINE (test code = 43683) NEGATIVE Darryl F AustinTRICHOMONAS, URINE, [id number] 00:00:00* Test Item Value Reference Range Interpretation Comme nts TRICHOMONAS, NAAT, URINE (te st code = 58358) NEGATIVE Darryl F AustinCT/NG, TMA, [id number] 00:00:00* Test Item Value Reference Range Interpretation Comme nts CHLAMYDIA, NAAT, URINE (test code = 00606) NEGATIVE GONORRHEA, NAAT, URINE (test code = 23673) NEGATIVE Darryl F AustinTRICHOMONAS, URINE, [id number] 00:00:00* Test Item Value Reference Range Interpretation Comme nts TRICHOMONAS, NAAT, URINE (te st code = 26014) NEGATIVE Darryl F AustinCT/NG, TMA, [id number] 00:00:00* Test Item Value Reference Range Interpretation Comme nts CHLAMYDIA, NAAT, URINE (test code = 72391) NEGATIVE GONORRHEA, NAAT, URINE (test code = 47352) NEGATIVE Darryl F AustinTRICHOMONAS, URINE, [id number] 00:00:00* Test Item Value Reference Range Interpretation Comme nts TRICHOMONAS, NAAT, URINE (te st code = 38924) NEGATIVE Darryl F AustinCT/NG, TMA, [id number] 00:00:00* Test Item Value Reference Range Interpretation Comme nts CHLAMYDIA, NAAT, URINE (test code = 00269) NEGATIVE GONORRHEA, NAAT, URINE (test code = 21633) NEGATIVE Darryl F AustinTRICHOMONAS, URINE, [id number] 00:00:00* Test Item Value Reference Range Interpretation Comme nts TRICHOMONAS, NAAT, URINE (te st code = 40518) NEGATIVE Darryl F AustinCT/NG, TMA, [id number] 00:00:00* Test Item Value Reference Range Interpretation Comme nts CHLAMYDIA, NAAT, URINE (test code = 06617) NEGATIVE GONORRHEA, NAAT, URINE (test code = 14709) NEGATIVE Darryl F AustinTRICHOMONAS, URINE, [id number] 00:00:00* Test Item Value Reference Range Interpretation Comme nts TRICHOMONAS, NAAT, URINE (te st code = 31454) NEGATIVE Darryl F AustinCT/NG, TMA, [id number] 00:00:00* Test Item Value Reference Range Interpretation Comme nts CHLAMYDIA, NAAT, URINE (test code = 72890) NEGATIVE GONORRHEA, NAAT, URINE (test code = 44668) NEGATIVE Darryl F AustinTRICHOMONAS, URINE, [id number] 00:00:00* Test Item Value Reference Range Interpretation Comme nts TRICHOMONAS, NAAT, URINE (te st code = 43245) NEGATIVE Darryl Ackerman AustinCT/NG, TMA, [id number] 00:00:00* Test Item Value Reference Range Interpretation Comme nts CHLAMYDIA, NAAT, URINE (test code = 17091) NEGATIVE GONORRHEA, NAAT, URINE (test code = 19562) NEGATIVE Darryl Ackerman AustinTRICHOMONAS, URINE, [id number] 00:00:00* Test Item Value Reference Range Interpretation Comme nts TRICHOMONAS, NAAT, URINE (te st code = 01884) NEGATIVE Darryl Ackerman AustinCT/NG, TMA, [id number] 00:00:00* Test Item Value Reference Range Interpretation Comme nts CHLAMYDIA, NAAT, URINE (test code = 62423) NEGATIVE GONORRHEA, NAAT, URINE (test code = 37920) NEGATIVE Darryl WaggonerPOCT [id number] 12:56:00* Test Item Value Reference Range Interpretation Comme nts POCT PREG (test code = 1605) Negative On board controls acceptable with C Line (test code = 3574) Yes POCT PREG LOT # (test code = 3575) [facility] [id number] POCT PREG TEST DATE (test code = 3576) 12/12/2024 Lab Interpretation (test cod e = 16158-8) Normal [facility] [id number] 10:24:44* Test Item Value Reference Range Interpretation [...] TanNUMBER OF TISSUE PIECES: 1SUBMITTED IN CASSETTE(S): [id number]: FormalinCOMMENTS:Entirely submitted intact. F) SPECIMEN LABELED: Cervix 8:00SIZE/WEIGHT: 0.2x0.1x0.1 cm SPECIMEN COLOR: TanNUMBER OF TISSUE PIECES: 1SUBMITTED IN CASSETTE(S): [id number]: FormalinCOMMENTS:Entirely submitted intact. A) SPECIMEN LABELED: EndometriumSIZE/WEIGHT: 1.4x1.3x0.2 cm AggregateSPECIMEN COLOR: TanNUMBER OF TISSUE PIECES: multipleSUBMITTED IN CASSETTE(S): [id number]: FormalinCOMMENTS:Filtered and entirely submitted. B) SPECIMEN LABELED: EndocervixSIZE/WEIGHT: 1.7x1.5x0.3 cm AggregateSPECIMEN COLOR: TanNUMBER OF TISSUE PIECES: multipleSUBMITTED IN CASSETTE(S): [id number]: FormalinCOMMENTS:Filtered and entirely submitted. C) SPECIMEN LABELED: Cervix 1:00SIZE/WEIGHT: 0.4x0.3x0.1 cm SPECIMEN COLOR: TanNUMBER OF TISSUE PIECES: 1SUBMITTED IN CASSETTE(S): [id number]: FormalinCOMMENTS:Entirely submitted intact. D) SPECIMEN LABELED: Cervix 3:00SIZE/WEIGHT: 0.2x0.2x0.1 cm SPECIMEN COLOR: TanNUMBER OF TISSUE PIECES: 1SUBMITTED IN CASSETTE(S): [id number]: FormalinCOMMENTS:Entirely submitted intact. PATHOLOGIST: (test code = 8250) (NOTE) Gita Morocho M.D., P h.D., Board Certified in Anatomic and ClinicalPathology, Cytopathology Specimens processed and interpreted at [facility], [address] [place] [address], , CLIA: [id number] CPT: (test code = 8400) (NOTE) 20828q9 UNLESS O THERWISE INDICATED, ALL TESTING PERFORMED AT [facility] [address] [place] [address] BIOINFORMATICS TEAM MEMBER: ANIBAL PAREDES M.D. CLIA NUMBER [id number] [facility] [place]. [id number] SURGICAL PATHOLOGY [id number] 00:00:00* Test Item Value Reference Range Interpretation Comme nts DIAGNOSIS: (test code = 8200) (NOTE) MICROSCOPIC DESCRIPTION: (te st code = 8210) (NOTE) CLINICAL DATA: (test code = 8401) (NOTE) GROSS DESCRIPTION: (test code = 8220) (NOTE) PATHOLOGIST: (test code = 8250) (NOTE) CPT: (test code = 8400) (NOTE) PDFE (test code = PDFReport) PDF Darryl Ackerman AustinSURGICAL PATHOLOGY [id number] 00:00:00* Test Item Value Reference Range Interpretation Comme nts DIAGNOSIS: (test code = 8200) (NOTE) MICROSCOPIC DESCRIPTION: (te st code = 8210) (NOTE) CLINICAL DATA: (test code = 8401) (NOTE) GROSS DESCRIPTION: (test code = 8220) (NOTE) PATHOLOGIST: (test code = 8250) (NOTE) CPT: (test code = 8400) (NOTE) PDFE (test code = PDFReport) PDF Darryl Tyron AustinSURGICAL PATHOLOGY [id number] 00:00:00* Test Item Value Reference Range Interpretation Comme nts DIAGNOSIS: (test code = 8200) (NOTE) MICROSCOPIC DESCRIPTION: (te st code = 8210) (NOTE) CLINICAL DATA: (test code = 8401) (NOTE) GROSS DESCRIPTION: (test code = 8220) (NOTE) PATHOLOGIST: (test code = 8250) (NOTE) CPT: (test code = 8400) (NOTE) PDFE (test code = PDFReport) PDF Darryl Ackerman [place] PATH[facility] [id number] 00:00:00* Test Item Value Reference Range Interpretation Comme nts DIAGNOSIS: (test code = 8200) (NOTE) MICROSCOPIC DESCRIPTION: (te st code = 8210) (NOTE) CLINICAL DATA: (test code = 8401) (NOTE) GROSS DESCRIPTION: (test code = 8220) (NOTE) PATHOLOGIST: (test code = 8250) (NOTE) CPT: (test code = 8400) (NOTE) PDFE (test code = PDFReport) PDF [facility] [id number] 00:00:00* Test Item Value Reference Range Interpretation Comme nts DIAGNOSIS: (test code = 8200) (NOTE) MICROSCOPIC DESCRIPTION: (te st code = 8210) (NOTE) CLINICAL DATA: (test code = 8401) (NOTE) GROSS DESCRIPTION: (test code = 8220) (NOTE) PATHOLOGIST: (test code = 8250) (NOTE) CPT: (test code = 8400) (NOTE) PDFE (test code = PDFReport) PDF Darryl Ackerman [place] PATH[facility] [id number] 00:00:00* Test Item Value Reference Range Interpretation Comme nts DIAGNOSIS: (test code = 8200) (NOTE) MICROSCOPIC DESCRIPTION: (te st code = 8210) (NOTE) CLINICAL DATA: (test code = 8401) (NOTE) GROSS DESCRIPTION: (test code = 8220) (NOTE) PATHOLOGIST: (test code = 8250) (NOTE) CPT: (test code = 8400) (NOTE) PDFE (test code = PDFReport) PDF Darryl Ackerman AustinSURGICAL PATHOLOGY [id number] 00:00:00* Test Item Value Reference Range Interpretation Comme nts DIAGNOSIS: (test code = 8200) (NOTE) MICROSCOPIC DESCRIPTION: (te st code = 8210) (NOTE) CLINICAL DATA: (test code = 8401) (NOTE) GROSS DESCRIPTION: (test code = 8220) (NOTE) PATHOLOGIST: (test code = 8250) (NOTE) CPT: (test code = 8400) (NOTE) PDFE (test code = PDFReport) PDF Darryl Ackerman AustinSURGICAL PATHOLOGY [id number] 00:00:00* Test Item Value Reference Range Interpretation Comme nts DIAGNOSIS: (test code = 8200) (NOTE) MICROSCOPIC DESCRIPTION: (te st code = 8210) (NOTE) CLINICAL DATA: (test code = 8401) (NOTE) GROSS DESCRIPTION: (test code = 8220) (NOTE) PATHOLOGIST: (test code = 8250) (NOTE) CPT: (test code = 8400) (NOTE) PDFE (test code = PDFReport) PDF Darryl Ackerman AustinVAGINAL PATHOGENS DNA [id number] 13:41:36* Test Item Value Reference Range Interpretation Comme nts JAZ SPECIES (test code = 45110) NEGATIVE NEGATIVE G. VAGINALIS (test code = 75834) NEGATIVE NEGATIVE T. VAGINALIS (test code = 95042) NEGATIVE NEGATIVE Note: The BD [employer] ir VPIII Microbial Identification Testis a DNA probe test intended for use in the detectionand identification of Jaz species, Gardnerellavaginalis and Trichomonas vaginalis nucleic acid. UNLESS OTHERWISE INDICATED, ALL TESTING PERFORMED AT [facility] [address] [place] [address] BIOINFORMATICS TEAM MEMBER: ANIBAL PAREDES M.D. IA NUMBER [id number] [facility] [place]. [id number] VAGINAL PATHOGENS DNA [id number] 00:00:00* Test Item Value Reference Range Interpretation Comme nts JAZ SPECIES (test code = 79918) NEGATIVE G. VAGINALIS (test code = 85389) NEGATIVE T. VAGINALIS (test code = 51075) NEGATIVE Darryl Ackerman AustinVAGINAL PATHOGENS DNA [id number] 00:00:00* Test Item Value Reference Range Interpretation Comme nts JAZ SPECIES (test code = 63354) NEGATIVE G. VAGINALIS (test code = 39421) NEGATIVE T. VAGINALIS (test code = 44459) NEGATIVE Darryl Ackerman AustinVAGINAL PATHOGENS DNA [id number] 00:00:00* Test Item Value Reference Range Interpretation Comme nts JAZ SPECIES (test code = ) NEGATIVE G. VAGINALIS (test code = 96416) NEGATIVE T. VAGINALIS (test code = 61329) NEGATIVE Darryl F AustinVAGINAL PATHOGENS DNA [id number] 00:00:00* Test Item Value Reference Range Interpretation Comme nts JAZ SPECIES (test code = 67694) NEGATIVE G. VAGINALIS (test code = 13956) NEGATIVE T. VAGINALIS (test code = 54822) NEGATIVE Darryl F AustinVAGINAL PATHOGENS DNA [id number] 00:00:00* Test Item Value Reference Range Interpretation Comme nts JAZ SPECIES (test code = 34420) NEGATIVE G. VAGINALIS (test code = 41139) NEGATIVE T. VAGINALIS (test code = 95154) NEGATIVE Darryl F AustinVAGINAL PATHOGENS DNA [id number] 00:00:00* Test Item Value Reference Range Interpretation Comme nts JAZ SPECIES (test code = 35475) NEGATIVE G. VAGINALIS (test code = 67203) NEGATIVE T. VAGINALIS (test code = 23303) NEGATIVE Darryl F AustinVAGINAL PATHOGENS DNA [id number] 00:00:00* Test Item Value Reference Range Interpretation Comme nts JAZ SPECIES (test code = 81575) NEGATIVE G. VAGINALIS (test code = 70071) NEGATIVE T. VAGINALIS (test code = 83743) NEGATIVE Darryl F AustinVAGINAL PATHOGENS DNA [id number] 00:00:00* Test Item Value Reference Range Interpretation Comme nts JAZ SPECIES (test code = 98524) NEGATIVE G. VAGINALIS (test code = 67677) NEGATIVE T. VAGINALIS (test code = 05932) NEGATIVE Darryl WaggonerCOMP. METABOLIC PANEL (43226)2023-06-12 05:34:53* Test Item Value Reference Range Interpretation Comme nts NA (test code = 7072342153) 137 mmol/L 135-145 K (test code = 0129520662) 3.9 mmol/L 3.5-5.0 CL (test code = 9935055891) 106 mmol/L 98-108 CO2 TOTAL (test code = 8755538796) 24 mmol/L 23-31 AGAP (test code = 5505484954) 7 2-16 BUN (test code = 7506957386) 10 mg/dL 7-23 GLUCOSE (test code = 7427567071) 90 mg/dL 70-110 CREATININE (test code = 4875279516) 0.94 mg/dL 0.50-1.04 TOTAL BILI (test code = 6756334353) 0.1-1.1 L CALCIUM (test code = 5204085902) 9.1 mg/dL 8.6-10.6 T PROTEIN (test code = 8722311182) 6.9 g/dL 6.3-8.2 ALBUMIN (test code = 9992716702) 4.1 g/dL 3.5-5.0 ALK PHOS (test code = 1054977114) 72 U/L 34-122 ALTv (test code = 1742-6) 24 U/L 5-35 AST(SGOT) (test code = 8236620744) 28 U/L 13-40 eGFR (test code = 4287977470) 69.5 mL/min/1.73m2 ELIA (test code = ELIA) [...] imaging tests). Lab Interpretation (test code = 19188-3) Abnormal [facility] WITH [id number] 05:16:33* Test Item Value Reference Range Interpretation Comme nts WBC (test code = 6690-2) 7.81 See_Comment [Automated [employer] ge] The system which generated this result transmitted reference range: 4.30 - 11.10 10*3/?L. The reference range was not used to interpret this result as normal/abnormal. RBC (test code = 789-8) 3.89 See_Comment L [Automated [employer]cat[place]a[employer]coma ge] The system which generated this result [...] g/dL 31.6-35.1 L RDW-SD (test code = 96228-1) 48.2 fL 39.0-49.9 RDW-CV (test code = 788-0) 17.9 % 12.0-15.5 H PLT (test code = 777-3) 327 See_Comment [Automated [employer]coma ge] The system which generated this result transmitted reference range: 166 - 358 10*3/?L. The reference range was not used to interpret this result as normal/abnormal. MPV (test code = 46801-6) 9.7 fL 9.5-12.9 NRBC/100 WBC (test code = 9212681772) 0.0 See_Comment [Automated [employer] ssage] The system which generated this result transmitted reference range: 0.0 - 10.0 /100 WBCs. The reference range was not used to interpret this result as normal/abnormal. NRBC x10^3 (test code = 1914906643) See_Comment [Automated messa ge] The system which generated this result transmitted reference range: 10*3/?L. The reference range was not used to interpret this result as normal/abnormal. GRAN MAT (NEUT) % (test code = 770-8) 40.4 % IMM GRAN % (test code = 9807970814) 0.10 % LYMPH % (test code = 736-9) 45.5 % MONO % (test code = 5905-5) 9.0 % EOS % (test code = 713-8) 4.5 % BASO % (test code = 706-2) 0.5 % GRAN MAT x10^3(ANC) (test code = 2030876995) 3.16 10*3/uL 1.88-7.09 IMM GRAN x10^3 (test code = 2128979600) 0.00-0.06 LYMPH x10^3 (test code = 731-0) 3.55 10*3/uL 1.32-3.29 H MONO x10^3 (test code = 742-7) 0.70 10*3/uL 0.33-0.92 EOS x10^3 (test code = 711-2) 0.35 10*3/uL 0.03-0.39 BASO x10^3 (test code = 704-7) 0.04 10*3/uL 0.01-0.07 Lab Interpretation (test code = 11365-7) [facility] [id number] 05:07:00* Test Item Value Reference Range Interpretation Comme nts POCT PREG (test code = 1605) Negative On board controls acceptable with C Line (test code = 3574) Yes POCT PREG LOT # (test code = 3575) [id number] POCT PREG TEST DATE ( test code = 3576) 10/17/2024 Lab Interpretation (test cod e = 07011-7) [facility], THINPREP, [id number] 18:32:20 * Test Item Value Reference Range Interpretation Comme nts SOURCE: (test code = 8001) Cervical SLIDES: (test code = 8011) 1 LMP: (test code = 8021) 05/17/2023 SPECIMEN ADEQUACY: (test code = 39009) (NOTE) Satisfactory for evaluation. Endocervical cells/transformation zone component present. INTERPRETATION: (test code = 46054) ASCUS/EPITH. ABNORMALITY; SEE BELOW A - ------- EPITHELIAL CELL ABNORMALITY Atypical squamous cells of undetermined significance (ASC-US) OTHER COMMENTS: (test code = 8081) (NOTE) Trichomonas v aginalis present. BRUSHER OPERATOR: (test code = 8101) TIERA Mcgee(ASC P) PATHOLOGIST INTERPRETATION BY: (test code = 8122) Joana Luna DO LOCATION: (test code = 39018) (NOTE) Specimens proces sed and interpreted at [facility] , [address] [place] [address], , CLIA: [id number] CPT: (test code = 8140) (NOTE) 16715, 90965 UN LESS OTHERWISE INDICATED, COMPUTER AIDED AND BRUSHER OPERATOR SCREENING PERFORMED. The Pap test is a screening test with an inherent, but low probability of error. Your patient should be reminded to consult you immediately if she experiences any suspicious signs or symptoms, regardless of her Pap test result. An alternate report format containing images or consolidated prior Pap history is available as applicable. PAP TEST, THINPREP, [id number] 00:00:00* Test Item Value Reference Range Interpretation Comme nts SOURCE: (test code = 8001) Cervical SLIDES: (test code = 8011) 1 LMP: (test code = 8021) 05/17/2023 SPECIMEN ADEQUACY: (test code = 79744) (NOTE) INTERPRETATION: (test code = 28269) ASCUS/EPITH. ABNORMALITY; SEE BELOW OTHER COMMENTS: (test code = 8081) (NOTE) BRUSHER OPERATOR: (test code = 8101) TIERA Mcgee(ASCP) PATHOLOGIST INTERPRETATION BY: (test code = 8122) Joana Luna DO LOCATION: (test code = 87927) (NOTE) CPT: (test code = 8140) (NOTE) Darryltriston WaggonerPAP TEST, THINPREP, [id number] 00:00:00* Test Item Value Reference Range Interpretation Comme nts SOURCE: (test code = 8001) Cervical SLIDES: (test code = 8011) 1 LMP: (test code = 8021) 05/17/2023 SPECIMEN ADEQUACY: (test code = 70860) (NOTE) INTERPRETATION: (test code = 79416) ASCUS/EPITH. ABNORMALITY; SEE BELOW OTHER COMMENTS: (test code = 8081) (NOTE) BRUSHER OPERATOR: (test code = 8101) TIERA Mcgee(ASCP) PATHOLOGIST INTERPRETATION BY: (test code = 8122) Joana Luna DO LOCATION: (test code = 84131) (NOTE) CPT: (test code = 8140) (NOTE) Darryl Tyron EdilsonPAP TEST, THINPREP, [id number] 00:00:00* Test Item Value Reference Range Interpretation Comme nts SOURCE: (test code = 8001) Cervical SLIDES: (test code = 8011) 1 LMP: (test code = 8021) 05/17/2023 SPECIMEN ADEQUACY: (test code = 12668) (NOTE) INTERPRETATION: (test code = 61701) ASCUS/EPITH. ABNORMALITY; SEE BELOW OTHER COMMENTS: (test code = 8081) (NOTE) BRUSHER OPERATOR: (test code = 8101) TIERA Mcgee(ASCP) PATHOLOGIST INTERPRETATION BY: (test code = 8122) Joana Luna DO LOCATION: (test code = 86493) (NOTE) CPT: (test code = 8140) (NOTE) Darryl Tyron WaggonerPAP TEST, THINPREP, [id number] 00:00:00* Test Item Value Reference Range Interpretation Comme nts SOURCE: (test code = 8001) Cervical SLIDES: (test code = 8011) 1 LMP: (test code = 8021) 05/17/2023 SPECIMEN ADEQUACY: (test code = 87203) (NOTE) INTERPRETATION: (test code = 60767) ASCUS/EPITH. ABNORMALITY; SEE BELOW OTHER COMMENTS: (test code = 8081) (NOTE) BRUSHER OPERATOR: (test code = 8101) TIERA Mcgee(ASCP) PATHOLOGIST INTERPRETATION BY: (test code = 8122) Joana Luna DO LOCATION: (test code = 06290) (NOTE) CPT: (test code = 8140) (NOTE) Darryl WaggonerANGELESP TEST, THINPREP, [id number] 00:00:00* Test Item Value Reference Range Interpretation Comme nts SOURCE: (test code = 8001) Cervical SLIDES: (test code = 8011) 1 LMP: (test code = 8021) 05/17/2023 SPECIMEN ADEQUACY: (test code = 54409) (NOTE) INTERPRETATION: (test code = 34596) ASCUS/EPITH. ABNORMALITY; SEE BELOW OTHER COMMENTS: (test code = 8081) (NOTE) BRUSHER OPERATOR: (test code = 8101) TIERA Mcgee(ASCP) PATHOLOGIST INTERPRETATION BY: (test code = 8122) Joana Luna DO LOCATION: (test code = 54238) (NOTE) CPT: (test code = 8140) (NOTE) Darryl WaggonerANGELESP TEST, THINPREP, [id number] 00:00:00* Test Item Value Reference Range Interpretation Comme nts SOURCE: (test code = 8001) Cervical SLIDES: (test code = 8011) 1 LMP: (test code = 8021) 05/17/2023 SPECIMEN ADEQUACY: (test code = 47068) (NOTE) INTERPRETATION: (test code = 20370) ASCUS/EPITH. ABNORMALITY; SEE BELOW OTHER COMMENTS: (test code = 8081) (NOTE) BRUSHER OPERATOR: (test code = 8101) TIERA Mcgee(ASCP) PATHOLOGIST INTERPRETATION BY: (test code = 8122) Joana Luna DO LOCATION: (test code = 95383) (NOTE) CPT: (test code = 8140) (NOTE) Darryl Ackerman AbbeP TEST, THINPREP, [id number] 00:00:00* Test Item Value Reference Range Interpretation Comme nts SOURCE: (test code = 8001) Cervical SLIDES: (test code = 8011) 1 LMP: (test code = 8021) 05/17/2023 SPECIMEN ADEQUACY: (test code = 99773) (NOTE) INTERPRETATION: (test code = 96305) ASCUS/EPITH. ABNORMALITY; SEE BELOW OTHER COMMENTS: (test code = 8081) (NOTE) BRUSHER OPERATOR: (test code = 8101) TIERA Mcgee(ASCP) PATHOLOGIST INTERPRETATION BY: (test code = 8122) [facility] LOCATION: (test code = 82454) (NOTE) CPT: (test code = 8140) (NOTE) Darryl Perez TEST, THINPREP, [id number] 00:00:00* Test Item Value Reference Range Interpretation Comme nts SOURCE: (test code = 8001) Cervical SLIDES: (test code = 8011) 1 LMP: (test code = 8021) 05/17/2023 SPECIMEN ADEQUACY: (test code = 55145) (NOTE) INTERPRETATION: (test code = 28689) ASCUS/EPITH. ABNORMALITY; SEE BELOW OTHER COMMENTS: (test code = 8081) (NOTE) BRUSHER OPERATOR: (test code = 8101) TIERA Mcgee(ASCP) PATHOLOGIST INTERPRETATION BY: (test code = 8122) [facility] LOCATION: (test code = 88670) (NOTE) CPT: (test code = 8140) (NOTE) Darryl WaggonerCT/NG, NAAT, [id number] 20:10:21* Test Item Value Reference Range Interpretation Comme nts CHLAMYDIA, NAAT, URINE (test code = 17715) POSITIVE NEGATIVE A Testing is perfo rmed with Lucie HARRY 6800/8800 systems usingreal-time polymerase chain reaction (PCR) method. GONORRHEA, NAAT, URINE (test code = 66728) NEGATIVE NEGATIVE Testing is perfo rmed with Lucie HARRY 6800/8800 systems usingreal-time polymerase chain reaction (PCR) method. A negative result does not exclude low level infection, specimensampling error, or collection error. UNLESS OTHERWISE INDICATED, ALL TESTING PERFORMED AT [facility] [address] [place], [place] [id number] [employer]INFORMAT[employer] TEAM MEMBER: ANIBAL PAREDES M.D. CLIA NUMBER [id number] [place]. [id number] HPV HIGH RISK WITH GENOTYPE, [id number] 17:33:46* Test Item Value Reference Range Interpretation Comme nts HPV HIGH RISK INTERP (test code = 23225) POSITIVE NEGATIVE A HPV 16 (test code = 57332) POSITIVE A HPV 18 (test code = 06474) NEGATIVE HPV, HR, OTHER GENOTYPES (test code = 12178) NEGATIVE Testing methodol ogy is real-time PCR utilizing hydrolysis probes with the [employer] 4800 system. The test individually detects genotypes 16 and 18, as well as the other 12 high risk types (31,33,35,39,45,51,52,56 ,58,59,66,68). The expected result is negative. A negative result does not rule out the presence of HPV not included in the genotype set, a low level of infection or specimen sampling error. UNLESS OTHERWISE INDICATED, ALL TESTING PERFORMED AT [facility], [facility]. [address] [place] [address] BIOINFORMATICS TEAM MEMBER: ANIBAL PAREDES M.D. CLIA NUMBER [id number] [place]. [id number] VAGINAL PATHOGENS DNA [id number] 16:55:18* Test Item Value Reference Range Interpretation Comme nts JAZ SPECIES (test code = 41216) NEGATIVE NEGATIVE G. VAGINALIS (test code = 84247) NEGATIVE NEGATIVE T. VAGINALIS (test code = 15340) NEGATIVE NEGATIVE Note: [facility] VPIII Microbial Identification Testis a DNA probe test intended for use in the detectionand identification of Jaz species, Gardnerellavaginalis and Trichomonas vaginalis nucleic acid. UNLESS OTHERWISE INDICATED, ALL TESTING PERFORMED AT [facility], [facility]. [address] [place] [address] BIOINFORMATICS TEAM MEMBER: ANIBAL PAREDES M.D. CLIA NUMBER [id number] [place]. [id number] RPR REFLEX TO T. PALLIDUM - [id number] 08:07:41* Test Item Value Reference Range Interpretation Comme nts RPR (test code = 96930) NON-REACTIVE NON-REACTIVE RPR TITER (test code = 3500) NOT INDIC. TITER NOT INDIC. HIV 1/2 4TH GEN, RFLX [id number] 05:24:44* Test Item Value Reference Range Interpretation Comme nts HIV 1/2 4TH GEN, RFLX CONF ( test code = 3514) NON-REACTIVE NON-REACTIVE HPV HIGH RISK WITH GENOTYPE, [id number] 00:00:00* Test Item Value Reference Range Interpretation Comme nts HPV HIGH RISK INTERP (test c ode = 91477) POSITIVE HPV 16 (test code = 67973) POSITIVE HPV 18 (test code = 38470) NEGATIVE HPV, HR, OTHER GENOTYPES (te st code = 27782) NEGATIVE PDFE (test code = PDFReport) PDF Darryl Ackerman AustinRPR REFLEX TO T. PALLIDUM - [id number] 00:00:00* Test Item Value Reference Range Interpretation Comme nts RPR (test code = 93964) NON-REACTIVE RPR TITER (test code = 3500) NOT INDIC. TITER Darryl Ackerman AustinCT/NG, TMA, [id number] 00:00:00* Test Item Value Reference Range Interpretation Comme nts CHLAMYDIA, NAAT, URINE (test code = 06153) POSITIVE GONORRHEA, NAAT, URINE (test code = 32159) NEGATIVE Darryl Ackerman AustinHIV 1/2 4TH GEN, RFLX [id number] 00:00:00* Test Item Value Reference Range Interpretation Comme nts HIV 1/2 4TH GEN, RFLX CONF ( test code = 3514) NON-REACTIVE Darryl Ackerman AustinVAGINAL PATHOGENS DNA [id number] 00:00:00* Test Item Value Reference Range Interpretation Comme nts JAZ SPECIES (test code = 27453) NEGATIVE G. VAGINALIS (test code = 53783) NEGATIVE T. VAGINALIS (test code = 79029) NEGATIVE Darryl F AustinRPR REFLEX TO T. PALLIDUM - [id number] 00:00:00* Test Item Value Reference Range Interpretation Comme nts RPR (test code = 74943) NON-REACTIVE RPR TITER (test code = 3500) NOT INDIC. TITER Darryl F AustinHPV HIGH RISK WITH GENOTYPE, [id number] 00:00:00* Test Item Value Reference Range Interpretation Comme nts HPV HIGH RISK INTERP (test c ode = 50753) POSITIVE HPV 16 (test code = 73517) POSITIVE HPV 18 (test code = 88985) NEGATIVE HPV, HR, OTHER GENOTYPES (te st code = 45886) NEGATIVE PDFE (test code = PDFReport) PDF Darryl Ackerman AustinCT/NG, TMA, [id number] 00:00:00* Test Item Value Reference Range Interpretation Comme nts CHLAMYDIA, NAAT, URINE (test code = 80156) POSITIVE GONORRHEA, NAAT, URINE (test code = 35297) NEGATIVE Darryl Ackerman AustinHIV 1/2 4TH GEN, RFLX [id number] 00:00:00* Test Item Value Reference Range Interpretation Comme nts HIV 1/2 4TH GEN, RFLX CONF ( test code = 3514) NON-REACTIVE Darryl Ackerman AustinVAGINAL PATHOGENS DNA [id number] 00:00:00* Test Item Value Reference Range Interpretation Comme nts JAZ SPECIES (test code = 23653) NEGATIVE G. VAGINALIS (test code = 64984) NEGATIVE T. VAGINALIS (test code = 44334) NEGATIVE Darryl Ackerman AustinHPV HIGH RISK WITH GENOTYPE, [id number] 00:00:00* Test Item Value Reference Range Interpretation Comme nts HPV HIGH RISK INTERP (test c ode = 44404) POSITIVE HPV 16 (test code = 53774) POSITIVE HPV 18 (test code = 69726) NEGATIVE HPV, HR, OTHER GENOTYPES (te st code = 28792) NEGATIVE PDFE (test code = PDFReport) PDF Darryl Ackerman AustinRPR REFLEX TO T. PALLIDUM - [id number] 00:00:00* Test Item Value Reference Range Interpretation Comme nts RPR (test code = 25550) NON-REACTIVE RPR TITER (test code = 3500) NOT INDIC. TITER Darryl F AustinCT/NG, TMA, [id number] 00:00:00* Test Item Value Reference Range Interpretation Comme nts CHLAMYDIA, NAAT, URINE (test code = 54066) POSITIVE GONORRHEA, NAAT, URINE (test code = 09641) NEGATIVE Darryl Ackerman AustinHIV 1/2 4TH GEN, RFLX [id number] 00:00:00* Test Item Value Reference Range Interpretation Comme nts HIV 1/2 4TH GEN, RFLX CONF ( test code = 3514) NON-REACTIVE Darryl F AustinVAGINAL PATHOGENS DNA [id number] 00:00:00* Test Item Value Reference Range Interpretation Comme nts JAZ SPECIES (test code = ) NEGATIVE G. VAGINALIS (test code = 55812) NEGATIVE T. VAGINALIS (test code = 27893) NEGATIVE Darryl Ackerman AustinHPV HIGH RISK WITH GENOTYPE, [id number] 00:00:00* Test Item Value Reference Range Interpretation Comme nts HPV HIGH RISK INTERP (test c ode = 51753) POSITIVE HPV 16 (test code = 33353) POSITIVE HPV 18 (test code = 90698) NEGATIVE HPV, HR, OTHER GENOTYPES (te st code = 61788) NEGATIVE PDFE (test code = PDFReport) PDF Darryl Ackerman AustinRPR REFLEX TO T. PALLIDUM - [id number] 00:00:00* Test Item Value Reference Range Interpretation Comme nts RPR (test code = 73713) NON-REACTIVE RPR TITER (test code = 3500) NOT INDIC. TITER Darryl Ackerman AustinCT/NG, TMA, [id number] 00:00:00* Test Item Value Reference Range Interpretation Comme nts CHLAMYDIA, NAAT, URINE (test code = 48959) POSITIVE GONORRHEA, NAAT, URINE (test code = 97274) NEGATIVE Darryl Ackerman AustinHIV 1/2 4TH GEN, RFLX [id number] 00:00:00* Test Item Value Reference Range Interpretation Comme nts HIV 1/2 4TH GEN, RFLX CONF ( test code = 3514) NON-REACTIVE Darryl Ackerman AustinVAGINAL PATHOGENS DNA [id number] 00:00:00* Test Item Value Reference Range Interpretation Comme nts JAZ SPECIES (test code = ) NEGATIVE G. VAGINALIS (test code = 88943) NEGATIVE T. VAGINALIS (test code = 49735) NEGATIVE Darryl Ackerman AustinRPR REFLEX TO T. PALLIDUM - [id number] 00:00:00* Test Item Value Reference Range Interpretation Comme nts RPR (test code = 59796) NON-REACTIVE RPR TITER (test code = 3500) NOT INDIC. TITER Darryl Ackerman AustinHPV HIGH RISK WITH GENOTYPE, [id number] 00:00:00* Test Item Value Reference Range Interpretation Comme nts HPV HIGH RISK INTERP (test c ode = 21789) POSITIVE HPV 16 (test code = 27567) POSITIVE HPV 18 (test code = 81808) NEGATIVE HPV, HR, OTHER GENOTYPES (te st code = 34443) NEGATIVE PDFE (test code = PDFReport) PDF Darryl Ackerman AustinCT/NG, TMA, [id number] 00:00:00* Test Item Value Reference Range Interpretation Comme nts CHLAMYDIA, NAAT, URINE (test code = 06949) POSITIVE GONORRHEA, NAAT, URINE (test code = 79181) NEGATIVE Darryl WaggonerHIV 1/2 4TH GEN, RFLX [id number] 00:00:00* Test Item Value Reference Range Interpretation Comme nts HIV 1/2 4TH GEN, RFLX CONF ( test code = 3514) NON-REACTIVE Darryl WaggonerVAGINAL PATHOGENS DNA [id number] 00:00:00* Test Item Value Reference Range Interpretation Comme nts JAZ SPECIES (test code = 61871) NEGATIVE G. VAGINALIS (test code = 18540) NEGATIVE T. VAGINALIS (test code = 98901) NEGATIVE Darryl Ackerman AustinRPR REFLEX TO T. PALLIDUM - [id number] 00:00:00* Test Item Value Reference Range Interpretation Comme nts RPR (test code = 70527) NON-REACTIVE RPR TITER (test code = 3500) NOT INDIC. TITER Darryl WaggonerHPV HIGH RISK WITH GENOTYPE, [id number] 00:00:00* Test Item Value Reference Range Interpretation Comme nts HPV HIGH RISK INTERP (test c ode = 09662) POSITIVE HPV 16 (test code = 96786) POSITIVE HPV 18 (test code = 42467) NEGATIVE HPV, HR, OTHER GENOTYPES (te st code = 81257) NEGATIVE PDFE (test code = PDFReport) PDF Darryl Ackerman AustinCT/NG, TMA, [id number] 00:00:00* Test Item Value Reference Range Interpretation Comme nts CHLAMYDIA, NAAT, URINE (test code = 77024) POSITIVE GONORRHEA, NAAT, URINE (test code = 29020) NEGATIVE Darryl Ackerman AustinVAGINAL PATHOGENS DNA [id number] 00:00:00* Test Item Value Reference Range Interpretation Comme nts JAZ SPECIES (test code = 49360) NEGATIVE G. VAGINALIS (test code = 29013) NEGATIVE T. VAGINALIS (test code = 21838) NEGATIVE Darryl Ackerman AustinHIV 1/2 4TH GEN, RFLX [id number] 00:00:00* Test Item Value Reference Range Interpretation Comme nts HIV 1/2 4TH GEN, RFLX CONF ( test code = 3514) NON-REACTIVE Darryl Ackerman AustinRPR REFLEX TO T. PALLIDUM - [id number] 00:00:00* Test Item Value Reference Range Interpretation Comme nts RPR (test code = 57129) NON-REACTIVE RPR TITER (test code = 3500) NOT INDIC. TITER Darryl Ackerman AustinHPV HIGH RISK WITH GENOTYPE, [id number] 00:00:00* Test Item Value Reference Range Interpretation Comme nts HPV HIGH RISK INTERP (test c ode = 56328) POSITIVE HPV 16 (test code = 75642) POSITIVE HPV 18 (test code = 90332) NEGATIVE HPV, HR, OTHER GENOTYPES (te st code = 47166) NEGATIVE PDFE (test code = PDFReport) PDF Darryl Ackerman AustinCT/NG, TMA, [id number] 00:00:00* Test Item Value Reference Range Interpretation Comme nts CHLAMYDIA, NAAT, URINE (test code = 73449) POSITIVE GONORRHEA, NAAT, URINE (test code = 93354) NEGATIVE Darryl Ackerman AustinVAGINAL PATHOGENS DNA [id number] 00:00:00* Test Item Value Reference Range Interpretation Comme nts JAZ SPECIES (test code = 82324) NEGATIVE G. VAGINALIS (test code = 62318) NEGATIVE T. VAGINALIS (test code = 96520) NEGATIVE Darryl Ackerman AustinHIV 1/2 4TH GEN, RFLX [id number] 00:00:00* Test Item Value Reference Range Interpretation Comme nts HIV 1/2 4TH GEN, RFLX CONF ( test code = 3514) NON-REACTIVE Darryl Ackerman AustinRPR REFLEX TO T. PALLIDUM - [id number] 00:00:00* Test Item Value Reference Range Interpretation Comme nts RPR (test code = 25302) NON-REACTIVE RPR TITER (test code = 3500) NOT INDIC. TITER Darryl Ackerman AustinHPV HIGH RISK WITH GENOTYPE, [id number] 00:00:00* Test Item Value Reference Range Interpretation Comme nts HPV HIGH RISK INTERP (test c ode = 32530) POSITIVE HPV 16 (test code = 52649) POSITIVE HPV 18 (test code = 17627) NEGATIVE HPV, HR, OTHER GENOTYPES (te st code = 56521) NEGATIVE PDFE (test code = PDFReport) PDF Darryl Ackerman AustinCT/NG, TMA, [id number] 00:00:00* Test Item Value Reference Range Interpretation Comme nts CHLAMYDIA, NAAT, URINE (test code = 08204) POSITIVE GONORRHEA, NAAT, URINE (test code = 49067) NEGATIVE Darryl Ackerman AustinHIV 1/2 4TH GEN, RFLX [id number] 00:00:00* Test Item Value Reference Range Interpretation Comme nts HIV 1/2 4TH GEN, RFLX CONF ( test code = 3514) NON-REACTIVE Darryl WaggonerVAGINAL PATHOGENS DNA [id number] 00:00:00* Test Item Value Reference Range Interpretation Comme nts JAZ SPECIES (test code = 22645) NEGATIVE G. VAGINALIS (test code = 84892) NEGATIVE T. VAGINALIS (test code = 14759) NEGATIVE Darryl WaggonerCOMP. METABOLIC PANEL (00708)2023-05-28 07:12:09* Test Item Value Reference Range Interpretation Comme nts NA (test code = 6184067685) 138 mmol/L 135-145 K (test code = 0684428220) 3.6 mmol/L 3.5-5.0 CL (test code = 0525666114) 105 mmol/L 98-108 CO2 TOTAL (test code = 2463006367) 24 mmol/L 23-31 AGAP (test code = 2079125672) 9 2-16 BUN (test code = 5159583090) 8 mg/dL 7-23 GLUCOSE (test code = 6807864063) 94 mg/dL 70-110 CREATININE (test code = 4653182890) 0.90 mg/dL 0.50-1.04 TOTAL BILI (test code = 2413117365) 0.5 mg/dL 0.1-1.1 CALCIUM (test code = 3890568265) 9.2 mg/dL 8.6-10.6 T PROTEIN (test code = 9905388748) 7.8 g/dL 6.3-8.2 ALBUMIN (test code = 1687002709) 4.3 g/dL 3.5-5.0 ALK PHOS (test code = 7609084942) 91 U/L 34-122 ALTv (test code = 1742-6) 32 U/L 5-35 AST(SGOT) (test code = 4136186320) 48 U/L 13-40 H eGFR (test code = 5870213075) 73.0 mL/min/1.73m2 ELIA (test code = ELIA) [...] imaging tests). Lab Interpretation (test code = 73828-8) Abnormal [facility] WITH [id number] 06:45:45* Test Item Value Reference Range Interpretation Comme nts WBC (test code = 6690-2) 7.78 See_Comment [Automated messa ge] The system which generated this result transmitted reference range: 4.30 - 11.10 10*3/?L. The reference range was not used to interpret this result as normal/abnormal. RBC (test code = 789-8) 4.16 See_Comment [Automated [employer] ge] The system which generated this result [...] g/dL 31.6-35.1 L RDW-SD (test code = 65187-8) 49.8 fL 39.0-49.9 RDW-CV (test code = 788-0) 18.3 % 12.0-15.5 H PLT (test code = 777-3) 391 See_Comment H [Automated [employer] ge] The system which generated this result transmitted reference range: 166 - 358 10*3/?L. The reference range was not used to interpret this result as normal/abnormal. MPV (test code = 24573-0) 10.3 fL 9.5-12.9 NRBC/100 WBC (test code = 6066371945) 0.0 See_Comment [Automated [employer] ssage] The system which generated this result transmitted reference range: 0.0 - 10.0 /100 WBCs. The reference range was not used to interpret this result as normal/abnormal. NRBC x10^3 (test code = 6532162445) See_Comment [Automated [employer]] The system which generated this result transmitted reference range: 10*3/?L. The reference range was not used to interpret this result as normal/abnormal. GRAN MAT (NEUT) % (test code = 770-8) 47.8 % IMM GRAN % (test code = 2874559523) 0.30 % LYMPH % (test code = 736-9) 39.1 % MONO % (test code = 5905-5) 8.5 % EOS % (test code = 713-8) 3.5 % BASO % (test code = 706-2) 0.8 % GRAN MAT x10^3(ANC) (test code = 8804796173) 3.73 10*3/uL 1.88-7.09 IMM GRAN x10^3 (test code = 6954181025) 0.00-0.06 LYMPH x10^3 (test code = 731-0) 3.04 10*3/uL 1.32-3.29 MONO x10^3 (test code = 742-7) 0.66 10*3/uL 0.33-0.92 EOS x10^3 (test code = 711-2) 0.27 10*3/uL 0.03-0.39 BASO x10^3 (test code = 704-7) 0.06 10*3/uL 0.01-0.07 Lab Interpretation (test code = 00033-5) Abnormal [facility] [id number] 06:40:00* Test Item Value Reference Range Interpretation Comme nts POCT PREG (test code = 1605) Negative On board controls acceptable with C Line (test code = 3574) Yes POCT PREG LOT # (test code = 3575) [id number] POCT PREG TEST DATE ( test code = 3576) 10/17/2024 Lab Interpretation (test cod e = 38196-2) Normal [facility] [id number] 06:17:00* Test Item Value Reference Range Interpretation Comme nts POCT PREG (test code = 1605) Negative On board controls acceptable with C Line (test code = 3574) Present POCT PREG LOT # (test code = 3575) [id number] POCT PREG TEST DATE ( test code = 3576) Lab Interpretation (test cod e = 04426-0) Normal [facility] [id number] 18:58:00* Test Item Value Reference Range Interpretation Comme nts POCT PREG (test code = 1605) negative Lab Interpretation (test cod e = 78839-8) Normal [facility] WITH [id number] 13:14:57* Test Item Value Reference Range Interpretation [...] g/dL 31.6-35.1 L RDW-SD (test code = 58329-2) 46.2 fL 39-49.9 RDW-CV (test code = 788-0) 17.0 % 12-15.5 H PLT (test code = 777-3) See_Comment H [Automated messa ge] The system which generated this result transmitted reference range: 166 - 358 10*3/?L. The reference range was not used to interpret this result as normal/abnormal. MPV (test code = 60202-2) 9.1 fL 9.5-12.9 L NRBC/100 WBC (test code = 8428744994) See_Comment [Automated me ssage] The system which generated this result transmitted reference range: 0.0 - 10.0 /100 WBCs. The reference range was not used to interpret this result as normal/abnormal. NRBC x10^3 (test code = 3003314900) See_Comment [Automated messa ge] The system which generated this result transmitted reference range: 10*3/?L. The reference range was not used to interpret this result as normal/abnormal. GRAN MAT (NEUT) % (test code = 770-8) 51.3 % IMM GRAN % (test code = 1804101119) 0.40 % LYMPH % (test code = 736-9) 37.0 % MONO % (test code = 5905-5) 8.5 % EOS % (test code = 713-8) 2.2 % BASO % (test code = 706-2) 0.6 % GRAN MAT x10^3(ANC) (test code = 1183795127) 4.26 10*3/uL 1.88-7.09 IMM GRAN x10^3 (test code = 4767325267) 0.03 10*3/uL 0-0.06 LYMPH x10^3 (test code = 731-0) 3.06 10*3/uL 1.32-3.29 MONO x10^3 (test code = 742-7) 0.70 10*3/uL 0.33-0.92 EOS x10^3 (test code = 711-2) 0.18 10*3/uL 0.03-0.39 BASO x10^3 (test code = 704-7) 0.05 10*3/uL 0.01-0.07 Lab Interpretation (test code = 52019-4) Abnormal [facility] [id number] 12:55:00* Test Item Value Reference Range Interpretation Comme nts POCT PREG (test code = 1605) negative On board controls acceptable with C Line (test code = 3574) present Lab Interpretation (test cod e = 11531-5) Normal [facility] [id number] 20:49:00* Test Item Value Reference Range Interpretation Comme nts POCT PREG (test code = 1605) negative On board controls acceptable with C Line (test code = 3574) yes POCT PREG LOT # (test code = 3575) [id number] POCT PREG TEST DATE ( test code = 3576) 08/14/2023 Lab Interpretation (test cod e = 88655-0) [facility] [id number] 08:01:55* Test Item Value Reference Range Interpretation Comme nts NA (test code = 6994363138) 138 mmol/L 135-145 K (test code = 9960704767) 4.2 mmol/L 3.5-5 CL (test code = 8834035040) 107 mmol/L 98-108 CO2 TOTAL (test code = 4695004904) 20 mmol/L 23-31 L AGAP (test code = 2704280572) 2-16 BUN (test code = 3786493777) 10 mg/dL 7-23 GLUCOSE (test code = 8307101005) 105 mg/dL 70-110 CREATININE (test code = 8489113215) 0.86 mg/dL 0.5-1.04 TOTAL BILI (test code = 7623826139) 0.1-1.1 L CALCIUM (test code = 8472998753) 9.1 mg/dL 8.6-10.6 T PROTEIN (test code = 8432156287) 7.4 g/dL 6.3-8.2 ALBUMIN (test code = 2343398134) 4.8 g/dL 3.5-5 ALK PHOS (test code = 3816957906) 81 U/L 34-122 ALTv (test code = 1742-6) 17 U/L 5-35 AST(SGOT) (test code = 5690995209) 19 U/L 13-40 eGFR (test code = 6990629201) mL/min/1.73m2 ELIA (test code = ELIA) Association [...] imaging tests). Lab Interpretation (test code = 22745-9) [facility], [id number] 07:59:48* Test Item Value Reference Range Interpretation Comme nts LIPASE (test code = 9293383339) 94 U/L 0-220 Lab Interpretation (test cod e = 90580-0) [facility] CenterCBC with [id number] 07:47:29* Test Item Value Reference Range Interpretation Comme nts WBC (test code = 6690-2) See_Comment [Automated [employer]] The system which generated this result transmitted reference range: 4.30 - 11.10 10*3/?L. The reference range was not used to interpret this result as normal/abnormal. RBC (test code = 789-8) See_Comment [Automated [employer]] The system which generated this result [...] g/dL 31.6-35.1 L RDW-SD (test code = 00064-6) 40.2 fL 39-49.9 RDW-CV (test code = 788-0) 15.0 % 12-15.5 PLT (test code = 777-3) See_Comment [Automated [employer]] The system which generated this result transmitted reference range: 166 - 358 10*3/?L. The reference range was not used to interpret this result as normal/abnormal. MPV (test code = 69004-0) 10.1 fL 9.5-12.9 NRBC/100 WBC (test code = 0503501322) See_Comment [Automated me ssage] The system which generated this result transmitted reference range: 0.0 - 10.0 /100 WBCs. The reference range was not used to interpret this result as normal/abnormal. NRBC x10^3 (test code = 7677134823) See_Comment [Automated messa ge] The system which generated this result transmitted reference range: 10*3/?L. The reference range was not used to interpret this result as normal/abnormal. GRAN MAT (NEUT) % (test code = 770-8) 46.6 % IMM GRAN % (test code = 9688556194) 0.40 % LYMPH % (test code = 736-9) 40.7 % MONO % (test code = 5905-5) 8.6 % EOS % (test code = 713-8) 3.3 % BASO % (test code = 706-2) 0.4 % GRAN MAT x10^3(ANC) (test code = [id number]) 3.40 10*3/uL 1.88-7.09 IMM GRAN x10^3 (test code = 2244201388) 0.03 10*3/uL 0-0.06 LYMPH x10^3 (test code = 731-0) 2.97 10*3/uL 1.32-3.29 MONO x10^3 (test code = 742-7) 0.63 10*3/uL 0.33-0.92 EOS x10^3 (test code = 711-2) 0.24 10*3/uL 0.03-0.39 BASO x10^3 (test code = 704-7) 0.03 10*3/uL 0.01-0.07 Lab Interpretation (test code = 93276-5) [id number]:00* Test Item Value Reference Range Interpretation Comme nts POCT PREG (test code = 1605) Negative On board controls acceptable with C Line (test code = 3574) Present POCT PREG LOT # (test code = 3575) HCG [id number] POCT PREG TEST DATE ( test code = 3576) 08/14/2023 Lab Interpretation (test cod e = 85612-3) Normal [facility] [id number] 22:19:00* Test Item Value Reference Range Interpretation Comme nts POCT PREG (test code = 1605) NEGATIVE On board controls acceptable with C Line (test code = 3574) present POCT PREG LOT # (test code = 3575) [id number] POCT PREG TEST DATE ( test code = 3576) 07/14/2023 Lab Interpretation (test cod e = 72687-2) [facility] [id number] 19:54:00* Test Item Value Reference Range Interpretation Comme nts POCT PREG (test code = 1605) negative On board controls acceptable with C Line (test code = 3574) present POCT PREG LOT # (test code = 3575) [id number] POCT PREG TEST DATE ( test code = 3576) 12/12/2022 Lab Interpretation (test cod e = 16568-5) [facility]:28[facility]* Test Item Value Reference Range Interpretation Comme nts FERRITIN (test code = 2075) 3 NG/ML 13-200 L [id number] 04:37:13* Test Item Value Reference Range Interpretation Comme nts TRANSFERRIN (test code = 4936) 385 MG/DL 200-360 H UNLESS OTHERWISE INDICATED, ALL TESTING PERFORMED [facility] [address] [place] [address] [employer]INFORMAT[employer] TEAM MEMBER: NICOLE GUSMAN M.D. CLIA NUMBER [id number] [facility] [place]. [id number] IRON BINDING CAPACITY AND IRON AND % [id number] 04:19:01* Test Item Value Reference Range Interpretation Comme nts IRON, SERUM (test code = 2222) 11 UG/DL 37-145 L UNSATURATED IBC (test code = 32641) 442 UG/DL 112-347 H CALC TOTAL IBC (test code = 2077) 453 UG/DL 250-450 H CALC % IRON SAT (test code = 2078) 2 % 20-50 L IRON BINDING CAPACITY AND IRON AND % [id number] 00:00:00* Test Item Value Reference Range Interpretation Comme nts IRON, SERUM (test code = 2221) 11 UG/DL UNSATURATED IBC (test code = 61033) 442 UG/DL CALC TOTAL IBC (test code = 7) 453 UG/DL CALC % IRON SAT (test code = 9) 2 % Darryl F [id number] 00:00:00* Test Item Value Reference Range Interpretation Comme nts FERRITIN (test code = 2074) 3 NG/ML Darryl F [id number] 00:00:00* Test Item Value Reference Range Interpretation Comme nts TRANSFERRIN (test code = 4936) 385 MG/DL Darryl F AustinIRON BINDING CAPACITY AND IRON AND % [id number] 00:00:00* Test Item Value Reference Range Interpretation Comme nts IRON, SERUM (test code = 2221) 11 UG/DL UNSATURATED IBC (test code = 65701) 442 UG/DL CALC TOTAL IBC (test code = 2076) 453 UG/DL CALC % IRON SAT (test code = 2078) 2 % Darryl F [id number] 00:00:00* Test Item Value Reference Range Interpretation Comme nts FERRITIN (test code = 2074) 3 NG/ML Darryl F [id number] 00:00:00* Test Item Value Reference Range Interpretation Comme nts TRANSFERRIN (test code = 4936) 385 MG/DL Darryl F AustinIRON BINDING CAPACITY AND IRON AND % [id number] 00:00:00* Test Item Value Reference Range Interpretation Comme nts IRON, SERUM (test code = 2221) 11 UG/DL UNSATURATED IBC (test code = 71092) 442 UG/DL CALC TOTAL IBC (test code = 7) 453 UG/DL CALC % IRON SAT (test code = 2078) 2 % Darryl F [id number] 00:00:00* Test Item Value Reference Range Interpretation Comme nts FERRITIN (test code = 2074) 3 NG/ML Darryl F [id number] 00:00:00* Test Item Value Reference Range Interpretation Comme nts TRANSFERRIN (test code = 4936) 385 MG/DL Darryl F AustinIRON BINDING CAPACITY AND IRON AND % [id number] 00:00:00* Test Item Value Reference Range Interpretation Comme nts IRON, SERUM (test code = 2222) 11 UG/DL UNSATURATED IBC (test code = 98179) 442 UG/DL CALC TOTAL IBC (test code = 7) 453 UG/DL CALC % IRON SAT (test code = 2079) 2 % Darryl F [id number] 00:00:00* Test Item Value Reference Range Interpretation Comme nts FERRITIN (test code = 5) 3 NG/ML Darryl F [id number] 00:00:00* Test Item Value Reference Range Interpretation Comme nts TRANSFERRIN (test code = 4936) 385 MG/DL Darryl F AustinIRON BINDING CAPACITY AND IRON AND % [id number] 00:00:00* Test Item Value Reference Range Interpretation Comme nts IRON, SERUM (test code = 2222) 11 UG/DL UNSATURATED IBC (test code = 62813) 442 UG/DL CALC TOTAL IBC (test code = 7) 453 UG/DL CALC % IRON SAT (test code = 2079) 2 % Darryl F [id number] 00:00:00* Test Item Value Reference Range Interpretation Comme nts FERRITIN (test code = 5) 3 NG/ML Darryl F [id number] 00:00:00* Test Item Value Reference Range Interpretation Comme nts TRANSFERRIN (test code = 4936) 385 MG/DL Darryl F AustinIRON BINDING CAPACITY AND IRON AND % [id number] 00:00:00* Test Item Value Reference Range Interpretation Comme nts IRON, SERUM (test code = 2222) 11 UG/DL UNSATURATED IBC (test code = 52556) 442 UG/DL CALC TOTAL IBC (test code = 7) 453 UG/DL CALC % IRON SAT (test code = 2079) 2 % Darryl F [id number] 00:00:00* Test Item Value Reference Range Interpretation Comme nts FERRITIN (test code = 5) 3 NG/ML Darryl F [id number] 00:00:00* Test Item Value Reference Range Interpretation Comme nts TRANSFERRIN (test code = 4936) 385 MG/DL Darryl F AustinIRON BINDING CAPACITY AND IRON AND % [id number] 00:00:00* Test Item Value Reference Range Interpretation Comme nts IRON, SERUM (test code = 2222) 11 UG/DL UNSATURATED IBC (test code = 82338) 442 UG/DL CALC TOTAL IBC (test code = 7) 453 UG/DL CALC % IRON SAT (test code = 2079) 2 % Darryl F [id number] 00:00:00* Test Item Value Reference Range Interpretation Comme nts FERRITIN (test code = 2074) 3 NG/ML Darryl F [id number] 00:00:00* Test Item Value Reference Range Interpretation Comme nts TRANSFERRIN (test code = 4936) 385 MG/DL Darryl F AustinIRON BINDING CAPACITY AND IRON AND % [id number] 00:00:00* Test Item Value Reference Range Interpretation Comme nts IRON, SERUM (test code = 2222) 11 UG/DL UNSATURATED IBC (test code = 75725) 442 UG/DL CALC TOTAL IBC (test code = 7) 453 UG/DL CALC % IRON SAT (test code = 2079) 2 % Darryl F [id number] 00:00:00* Test Item Value Reference Range Interpretation Comme nts FERRITIN (test code = 5) 3 NG/ML Darryl F [id number] 00:00:00* Test Item Value Reference Range Interpretation Comme nts TRANSFERRIN (test code = 4936) 385 MG/DL Darryl F AustinIRON BINDING CAPACITY AND IRON AND % [id number] 00:00:00* Test Item Value Reference Range Interpretation Comme nts IRON, SERUM (test code = 2222) 11 UG/DL UNSATURATED IBC (test code = 22359) 442 UG/DL CALC TOTAL IBC (test code = 7) 453 UG/DL CALC % IRON SAT (test code = 2079) 2 % [id number] 00:00:00* Test Item Value Reference Range Interpretation Comme nts FERRITIN (test code = 5) 3 NG/ML [id number] 00:00:00* Test Item Value Reference Range Interpretation Comme nts TRANSFERRIN (test code = 4936) 385 MG/DL IRON BINDING CAPACITY AND IRON AND % [id number] 00:00:00* Test Item Value Reference Range Interpretation Comme nts IRON, SERUM (test code = 2222) 11 UG/DL UNSATURATED IBC (test code = 79172) 442 UG/DL CALC TOTAL IBC (test code = 2077) 453 UG/DL CALC % IRON SAT (test code = 2079) 2 % [id number] 00:00:00* Test Item Value Reference Range Interpretation Comme nts FERRITIN (test code = 2075) 3 NG/ML [id number] 00:00:00* Test Item Value Reference Range Interpretation Comme nts TRANSFERRIN (test code = 4936) 385 MG/DL TSH, THIRD [id number] 06:15:03* Test Item Value Reference Range Interpretation Comme nts TSH, THIRD GENERATION (test code = 2821) 0.675 UIU/ML 0.400-4.100 UNLESS OTHERWISE INDICATED, ALL TESTING PERFORMED [facility] [employer] [employer] [address] [place] [address] BIOINFORMATICS TEAM MEMBER: NICOLE GUSMAN M.D. CLIA NUMBER [id number] [place]. [id number] CBC W/AUTO DIFF WITH [id number] 02:57:36* Test Item Value Reference Range Interpretation [...] 0.00-0.10 ABS NUCLEATED RBCS (test code = 89633) 0.00 K/UL 0.00-0.11 [id number] 00:00:00* Test Item Value Reference Range Interpretation Comme nts TSH, THIRD GENERATION (test code = 2821) 0.675 UIU/ML Darryl WaggonerC W/AUTO [id number] 00:00:00* Test Item Value Reference Range Interpretation [...] ABS NUCLEATED RBCS (test cod e = 98402) 0.00 K/UL Darryl [id number] 00:00:00* Test Item Value Reference Range Interpretation Comme nts TSH, THIRD GENERATION (test code = 2821) 0.675 UIU/ML Darryl WaggonerCBC W/AUTO [id number] 00:00:00* Test Item Value Reference Range Interpretation [...] ABS NUCLEATED RBCS (test cod e = 66749) 0.00 K/UL Darryl [id number] 00:00:00* Test Item Value Reference Range Interpretation Comme nts TSH, THIRD GENERATION (test code = 2821) 0.675 UIU/ML Darryl WaggonerC W/AUTO [id number] 00:00:00* Test Item Value Reference Range Interpretation [...] ABS NUCLEATED RBCS (test cod e = 85191) 0.00 K/UL Darryl Ackerman [id number] 00:00:00* Test Item Value Reference Range Interpretation Comme nts TSH, THIRD GENERATION (test code = 2821) 0.675 UIU/ML Darryl Ackerman AustinCBC W/AUTO [id number] 00:00:00* Test Item Value Reference Range Interpretation [...] ABS NUCLEATED RBCS (test cod e = 09574) 0.00 K/UL Darryl [id number] 00:00:00* Test Item Value Reference Range Interpretation Comme nts TSH, THIRD GENERATION (test code = 2821) 0.675 UIU/ML Darryl WaggonerCBC W/AUTO [id number] 00:00:00* Test Item Value Reference Range Interpretation [...] ABS NUCLEATED RBCS (test cod e = 32601) 0.00 K/UL Darryl Ackerman [id number] 00:00:00* Test Item Value Reference Range Interpretation Comme nts TSH, THIRD GENERATION (test code = 2821) 0.675 UIU/ML Darryl Ackerman EdilsonCBC W/AUTO [id number] 00:00:00* Test Item Value Reference Range Interpretation [...] ABS NUCLEATED RBCS (test cod e = 90084) 0.00 K/UL Darryl [id number] 00:00:00* Test Item Value Reference Range Interpretation Comme nts TSH, THIRD GENERATION (test code = 2821) 0.675 UIU/ML Darryl WaggonerCBC W/AUTO [id number] 00:00:00* Test Item Value Reference Range Interpretation [...] ABS NUCLEATED RBCS (test cod e = 10248) 0.00 K/UL Darryl [id number] 00:00:00* Test Item Value Reference Range Interpretation Comme nts TSH, THIRD GENERATION (test code = 2821) 0.675 UIU/ML Darryl Ackerman AustinCBC W/AUTO [id number] 00:00:00* Test Item Value Reference Range Interpretation [...] ABS NUCLEATED RBCS (test cod e = 02508) 0.00 K/UL Darryl Ackerman AustinCBC W/AUTO [id number] 00:00:00* Test Item Value Reference Range Interpretation [...] ABS NUCLEATED RBCS (test cod e = 90735) 0.00 K/UL [id number] 00:00:00* Test Item Value Reference Range Interpretation Comme nts TSH, THIRD GENERATION (test code = 2821) 0.675 UIU/ML CBC W/AUTO [id number] 00:00:00* Test Item Value Reference Range Interpretation [...] ABS NUCLEATED RBCS (test cod e = 58150) 0.00 K/UL [id number] 00:00:00* Test Item Value Reference Range Interpretation Comme nts TSH, THIRD GENERATION (test code = 2821) 0.675 UIU/ML Notes Date/Time Note Provider Source 2025-03-09 02:45:01 Pt given printed and verbal discharge instructions regarding other headache syndrome and LLQ pain, encouraged hydration, Prescriptions provided to preferred pharmacy Pt verbalized understanding of instructions, pt awake [...] with steady gait, in no apparent distress, [facility] 2025-03-08 21:30:20 Pt arrived ambulatory without assist. Pt with her, okay to discuss care with him. Pt c/o migraine that started today and left ovary pain since Sunday. Duyen Pereira RN [facility] 2025-01-27 13:53:03 Pt given printed and verbal discharge instructions regarding other migraine without status migrainosus and muscle spasms of neck , encouraged hydration, 3 Prescriptions sent. Pt verbalized understanding of instructions, pt awake alert oriented, resp reg unlabored, skin w/d, color appropriate for race, moves all ext well,pt encouraged to follow up with pcp Advised to seek medical attention for new/prolonged/worsening of symptoms, Symptoms improved. No adverse reaction to meds given in ER noted upon discharge PIV d'cd, dressing to site, catheter in tact. Awake, alert oriented, resp reg unlabored, skin w/d, pt leaving amb with steady gait, in no apparent distress, [facility] 2025-01-27 12:24:45 Patient arrived ambulatory c/o headache that started approximately at midnight associated with vomiting and sensitivity to lights. Patient attempted to take ibuprofen when she vomited the medication. Patient has frequent headaches and diagnosed with chronic migraines. Celina Proctor RN [facility] 2025-01-21 08:15:25 Pt has been scheduled Tanya Velasco [facility] 2025-01-19 13:34:00 Mini Zhu is a 34 year old female Patient returning missed call to schedule PGY appointment. She states she did not have any voicemails. Please advise [facility] 2025-01-17 04:21:41 Awake, alert oriented X4, respiratory even and unlabored,skin w/d color appropriate for race, moves all ext well, pt encouraged to follow up with pcp and or return as needed. Pt given printed and verbal discharge instructions regarding generalized abdominal pain, left ovarian cyst, acute cystitis without hematuria, and gastroenteritis. Patient verbalized understanding and signature obtained, patient denies any other concerns. Prescriptions provided. Discussed antibiotic therapy and to take until all completed unless adverse reaction occurs - if occurs, discontinue medication and follow up with pcp/seek medical attention. Advised to seek medical attention for new/prolonged/worsening of symptoms. No adverse reaction to meds given in ER noted upon discharge. Pt ambulated to the lobby with steady gait. T Senia Nravaez RN [facility] 2025-01-17 02:22:34 Cc: abdominal pain, N/V, and migraine began at 11PM 01/16 T [facility] 2025-01-16 10:05:56 2nd attempt no answer T Tayna Velasco [facility] 2025-01-15 12:25:21 1st attempt to contact pt, no answer T [facility] 2025-01-13 10:37:29 Mini Fam Amadou is a 34 year old female Pt calling wanting to r/s her appt that was scheduled for 01/16/25. Please assist [phone] (home) [phone] (work) [facility] 2025-01-05 09:43:48 Pt given printed and verbal discharge instructions regarding acute viral syndrome and NVD, encouraged hydration. Pt verbalized understanding of instructions, pt awake alert oriented, resp reg unlabored, skin w/d, color appropriate for race, moves all ext well, pt encouraged to follow up with pcp. Advised to seek medical attention for new/prolonged/worsening of symptoms. Symptoms addressed. No adverse reaction to meds given in ER noted upon discharge. PIV d'cd, dressing to site, catheter intact. Pt leaving amb with steady gait, in no apparent distress. Left with spouse. Trista Coronel RN [facility] 2025-01-05 09:27:55 [facility] ED Transfer of Care Note. Off-going Physician: Dr. Ricks Time of Transfer of Care:0800 Summary: Mini Zhu is a 34 year old female presenting with chief complaint of vomiting and diarrhea. Pending prior to disposition: Imaging and Reevaluation Current interventions: Medications NaCl 0.9% (NS) bolus infusion 1,000 mL (0 mL IV Piggyback Stopped 01/05/25 0556) ondansetron (ZOFRAN (PF)) injection 4 mg (4 mg Slow IV Push Given 01/05/25 0556) NaCl 0.9% (NS) bolus infusion 1,000 mL (1,000 mL IV Piggyback New Bag 01/05/25 0648) iopamidol (ISOVUE 370-500 mL) injection 85 mL (85 mL Intravenous Given 01/05/25 0815) Results: Labs Reviewed CBC WITH DIFF - Abnormal; Notable for the following components: Result Value HGB 9.4 (*) HCT 31.6 (*) MCV 75.1 (*) MCH 22.3 (*) MCHC 29.7 (*) RDW-CV 16.2 (*) PLT 400 (*) All other components within normal limits COMP. METABOLIC PANEL (91711) - Abnormal; Notable for the following components: CO2 TOTAL 19 (*) BUN 2 (*) GLUCOSE 114 (*) All other components within normal limits URINALYSIS - Abnormal; Notable for the following components: MUCOUS Slight (*) All other components within normal limits INFLUENZA A/B RSV COVID NAAT - Normal POCT TEST - Normal LAB ONLY COVID INTERPRETATION CT Abdomen pelvis w contrast Final Result 1. No acute findings to explain patient's symptoms. 2. Unchanged indeterminate right hepatic lobe hypodensity. This may be further characterized with outpatient MRI if desired. Preliminary Report Dictated by Resident: Miko Russell. I, Dago Cox MD., have reviewed this study and agree with the above report. XR Chest 1 vw Final Result Impression: 1. No acute cardiopulmonary process is identified. RL: [id number] Procedures: Procedures Additional Notes: ED Course as of 01/05/25927Jan 05, 2025 0548 HGB(!): 9.4 Chronic [PS] ED Course User Index [PS] HermiloDO Diagnosis/Impression as of 01/05/25927 Acute viral syndrome Nausea vomiting and diarrhea Medical Decision Making Amount and/or Complexity of Data Reviewed Labs: ordered. Decision-making details documented in ED Course. Radiology: ordered. Risk Prescription drug management. Disposition: Discharged Home Social Determinants of Health: None ED Disposition ED Disposition Discharge Condition Stable Comment -- [facility] 2025-01-05 08:39:35 Patient given ice water to po challenge [facility] Celnia Proctor RN [facility] 2025-01-05 07:05:00 Nurse Report Report received from LINA Martines. Chief complaint, assessment findings, and orders reviewed. Plan of care discussed with both nurses. Trista Coronel RN [facility] 2025-01-05 05:35:15 Patient up using the bathroom, ambulated independently with a steady gait. Back to bed, on monitor, updated on plan of care. Call light within reach. oBbbi Siddiqi RN [facility] 2025-01-05 05:09:11 C/o cough, body aches, chills, vomiting, nausea, diarrhea x4 days Feels like she's been running a fever but has no thermometer Jess Gonzalez RN [facility] 2024-12-18 01:21:52 Awake, alert oriented X4, respiratory even and unlabored,skin w/d color appropriate for race, moves all ext well, pt encouraged to follow up with pcp and or return as needed Pt given printed and verbal discharge instructions regarding nonintracable headache , patient verbralized understanding and signature obtained, patient denies any other concerns. Advised to seek medical attention for new/prolonged/worsening of symptoms, No adverse reaction to meds given in ER noted upon discharge Pt ambulated to the [facility] with steady gait ER HELPER Kait Seay RN [facility]2025-03-05 23:49:02 Patient arrived ambulatory to ED c/o right sided migraine that worsened tonight. Oral sx on 12/05, had three teeth taken out. Abx have been finished already. Vomited tonight and made her migraine worse. Patient states Zofran is not working anymore. [facility]2025-02-14 00:00:00 [facility]2025-02-13 00:00:00 [place] [address]-02-04 22:45:36 Pt given printed and verbal discharge [...] ambulatory without assist, in no apparent distress, [place] [facility]7980[facility]71[facility] 20:59:33 CC: R sided jaw pain that radiates down her neck. Pain began at 9PM. Took Ibu 800mg at 2PM, applying warm/cold compress Patel [facility] Care[facility]qkujr8326-47-19 20:55:00 [facility] Emergency Department Note Patient Name: Mini Zhu Date of : 1990 33 year old female Treatment Room: [place] [address] Primary Care Physician: Rachelle Ackerman [facility] Patient Escorted by: Family [5] Mode of Arrival: Personal means [1] EMS Treatment Prior to ED Arrival: LINE PALLETIZER treatment: Other (comment) LINE PALLETIZER treatment comments: See triage note Travel and [...] [facility] [place] [facility] management prompting ED visit. 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 CONTINUE taking these medications which have NOT CHANGED ALBUTEROL 90 MCG/ACTUATION INHALER Inhale 2 Puffs every 4 (four) hours as needed for Wheezing or Shortness of Breath. AZITHROMYCIN (ZITHROMAX Z-RAMESH) 250 MG TABLET Take 2 tablets by mouth SEE-INSTRUCTIONS. Take 500 mg day 1, then 250 mg days 2 to 5. CWWHJFPARD-KIMAWMWULWQYV-FMFW 50-325-40 MG TABLET Take 1 tablet by mouth every 6 (six) hours as needed (Headache). JTGKZWQKNA-[id number]-[id number] 50-325-40 MG TABLET Take 1 tablet by [...] Electronically signed by: Selene Parra MD 11/18/242237 [place] [address]-01-25 22:45:36 ERP MSE patient [place] [address]-01-25 22:35:26 CC: tail bone pain, began today 5PM. Patient states she was horse playing, and got kneed on the tailbone. [facility] Nicole Patel [place] [id number] 00:00:00 [facility]2024-11-11 00:00:00 [place] 529324-10-11 10:46:00 Written/verbal D/c instructions, out of er no distress, [place] 247824-10-11 10:30:00 Pt has had no emesis since [facility]Paewvd7248-79-93 07:48:10 Mini Zhu is a 33 year old female c/o n/v/d since Sunday, states this morning at 0700 threw up blood, no abdominal pain, states now has a headache, alert cheerful, states hx gastritis, esophagitis and iron def anemia, ran out of pantoprazole and takes iron occasionally. States her bipolar meds aren't staying down either, T Sheila Starkey RNOhioHealth [facility] Methodist HospitalLsspro6050-33-01 00:00:00 Darryl Arriaga [facility]2024-09-20 05:48:27 Discharge information given verbally and in writing, including of s/s of when to return to ER Patient denies questions and verbalized understanding. IV discontinued without issue. Pt ambulated off unit with steady gate, vital signs stable, no acute distress. T Jovana Hooper RNOhio[facility] HospitalSzcpnu7334-58-64 02:26:00 Lower abd pain since midnight, and back pain, pt states she has shingles and has been using tropical cream for tx. T [place] [id number] 00:00:00 Darryl Arriaga [facility]2024-05-29 06:06:53 Pt given printed and verbal [...] in no apparent distress. T Ashly Srivastava [facility] CareKlavoi2934-85-30 02:07:22 Pt given urine cup and placed in the lobby, pt advice to notify nurse with any other concerns or if symptoms worsen. [facility] HospitalYxiqln3614-29-81 02:02:32 C/O states that she began vomited blood X5 since midnight. 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 Kait Seay RNUT - Ypufoq3437-27-49 03:51:00 [facility] Emergency Department Note Patient Name: Mini Zhu Date of : 1990 33 year old female Treatment Room: [place] [address] Primary Care Physician: Rachelle Ackerman [facility] Patient Escorted by: Family [5] Mode of Arrival: Personal means [1] EMS Treatment Prior to ED Arrival: LINE PALLETIZER treatment: None Travel and Exposure Screening: Symptoms [...] by: 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 METABOLIC PANEL (21428) - Abnormal Result Value Ref Range NA [...] then 250 mg days 2 to 5. VLKIJTTKIS-[id number]-YGDO 50-325-40 MG TABLET Take 1 tablet by [...] for follow-up Tommie Arita MD Specialty: IM-GASTROENTEROLOGY [facility] [id number] [place] [phone] Electronically signed by: Selene Parra MD 02/03/24 0658 [facility]tlnye6093-40-84 00:43:46 Pt given printed and verbal discharge [...] leaving in no apparent distress, Ashly Gibson RNOhioHealth Dublin Methodist HospitalIfbaus5353-45-31 00:31:47 Pt notified covid test was inconclusive. She refuses additional covid swabbing. She reports continuing head congestion. Dr. Marie in to see pt at this time. [facility] HospitalMsgqgw7004-01-20 22:22:36 Pt arrived ambulatory with c/o congestion. Pt states I have bad congestion, sneezing, coughing and headache. No fever. I vomited once prior to coming to the ED." Duyen Pereira [place] [id number] 05:22:47 Awake, alert oriented X4, respiratory even [...] noted upon discharge Pt ambulated to the [facility] with steady gait Kait Seay [facility] CareYohaca1242-85-64 03:48:35 Pt arrived with c/ migraine headache off-and-on for 7 days. Pt took Midol at 6:30pm. Pt report the Midol help for about 30 minutes then the headache came back. Pt states she has tried Ibu, tylenol, and naproxen but none of these medications have helped her migraine. Nicole Patel [facility] CareXfgtob3005-41-89 03:43:00 [facility] Emergency Department Note Patient Name: Mini Zhu Date of : 1990 33 year old female Treatment Room: [facility] [id number]/[id number] Primary Care Physician: Rachelle Waggoner 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 Orders Placed This Encounter Medications dsitrjqwjz-ebvlseduswoer-qavb (ESGIC) 50-325-40 mg tablet 1 tablet First [...] file Follow-up: Contact information for follow-up Darryl Ackerman [facility], [facility] Relationship: PCP - General [address] [place] [phone] Demetrio Stout MD Specialty: PN-NEUROLOGY [facility] AND [address] [phone] Electronically signed by: Selene Parra MD 12/26/230 [facility] HospitalHtmsvz0722-82-05 10:50:14 Patient discharged home. Follow up with pcp in 2-3 days. Return with worsening symptoms. Verbalized dc instructions. Signed paper work. ER HELPER Yadiel Davis RNOhioHealth Dublin Methodist HospitalMluuxn0068-70-12 06:42:12 Bilateral lower abdominal pain on and off for month. Pain started this morning at 1230 and hasn't stopped. Saw by OB, US ordered pt unable to pay for it. Was instructed to got to ER if got worse. Vomited 3 time this am [place] [id number] 01:09:27 Pt given printed and verbal discharge [...] steady gait, in no apparent distress. Peraza [place] 764424-01-29 00:35:00 PO challenge completed. Patient tolerating water and crackers. [place] [id number] 00:06:08 Patient arrived ambulatory to ED c/o vomiting. Patient states vomiting up her dinner and then vomiting "bright red chunks." Diarrhea x a couple of days. No medications taken LINE PALLETIZER. Keen [place] [id number] 00:03:00 [facility] Emergency Department Note Patient Name: Mini Zhu Date of : 1990 32 year old female Treatment Room: Room/bed info not found Primary Care Physician: Rachelle Ackerman [facility] Patient Escorted by: Family [5] Mode of Arrival: Personal means [1] EMS Treatment Prior to ED Arrival: LINE PALLETIZER treatment: None Travel and Exposure Screening: Symptoms [...] Eval: ED Events Date/Time Event User Comments 11/12/23 0006 Medical Screening Begins CHAYO SRIVASTAVA DO -- 11/12/23 0006 First Provider Evaluation CHAYO SRIVASTAVA DO -- [...] 200 mg capsule Comments: Reason for Stopping: tqrucxxrcn-jdizuxzsuctrr-vxfv 50-325-40 mg tablet Comments: Reason for Stopping: megestroL 40 mg tablet Comments: Reason for Stopping: tamsulosin 0.4 mg 24 hr capsule Comments: Reason for Stopping: ketorolac 10 mg tablet Comments: Reason for Stopping: Follow-up: Electronically signed by: Chayo Srivastava DO 11/12/23103 ER HELPER [facility] HospitalGpupmo7736-80-51 20:56:44 Pt discharged home, given all education and information regarding s/s of worsening condition; prescription use; pain and fever management as well as the importance of follow up. Pt verbalized understanding. Alert and ambulatory to pov with family. [facility] Wilman Felix RNKatherine [place] [id number] 20:24:32 Pt arrived ambulatory with complaints of viral symptoms x2 days. Pt is positive and she took home test today and is positive too. Pt was concerned because her fever was 101 and her husbands only hit 100f. Pt has n/v but hasn't taken her Zofran. [facility] Cora Peraza [facility] CareSgpwlt7965-92-90 06:48:38 Prescriptions provided Pt verbalized understanding of [...] with steady gait, in no apparent distress. [facility]2023-09-10 05:26:28 Pt arrives ambulatory to ED c/o left sided lower abdominal pain. She reports that she came in last week and was found to have multiple gynecological issues and was given multiple prescriptions which she says has not helped her pain issue. 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 ED COURSE Diagnosis/Impression as of 06/24/23 0665 Left sacral radiculopathy Procedures: Procedures MDM: Medical [...] (three) times daily as needed for Cough. DQYXEUFIRW-JVWVSMRVTEOLQ-CJOK 50-325-40 MG TABLET Take 1 tablet by [...] SURGERY [address] [facility] [phone] Electronically signed by: Selene Parra MD 06/24/2333 [facility] - [id number] 01:30:00 Awake, alert oriented X4, respiratory even [...] ambulated to the lobby with steady gait [facility] HospitalTbppzx6167-03-08 23:50:11 C/O head congestion, chest congestion, body aches, sore throat since last Sunday, pt denies any fever. Kait Seay RNOhioHealth [facility] Methodist HospitalKzdciy3787-53-91 23:45:00 [facility] Emergency Department Note Patient Name: Mini Zhu Date of : 1990 32 year old female Treatment Room: Room/bed info not found Primary Care Physician: Rachelle Ackerman [facility] Patient Escorted by: Family [5] Mode of Arrival: Personal means [1] EMS Treatment Prior to ED Arrival: LINE PALLETIZER treatment: None Travel and Exposure Screening: Symptoms [...] clinic, negative x2. Recent encounters: 1. 06/11/23. [facility]. Pelvic pain. PID prophylaxis in ED. 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 Previously scheduled appointment. Trichomonas. [...] taking these medications which have NOT CHANGED GOFHZHIEZE-HRHVTEXORVCFC-BEZI 50-325-40 MG TABLET Take 1 tablet by [...] Electronically signed by: Michelle Terry MD 06/18/23112 [facility] - Wsvqai5630-19-71 04:46:51 Pt given printed and verbal discharge [...] no apparent distress, accompanied by her . [facility] HospitalLdbdiq0048-98-95 23:09:00 Patient states: "I've been having suprapubic pain for about a week now, worst was since . 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 I took Midol an hour ago for my painbut no relief." T Yenny Blevins [facility] - Ktoluw2362-77-75 23:06:00 [facility] ED Transfer of Care Note. Off-going Physician:ANGELES [...] components within normal limits COMP. METABOLIC PANEL (52630) - Abnormal; Notable for the following components: [...] Severe endometrial thickening measuring 2.5 cm. AFC: 48081 RL: 460 End of report. Additional Notes: Diagnosis/Impression as of 06/12/23 0432 Pelvic pain Right ovarian cyst Intramural leiomyoma of uterus - (Uterine Fibroid) Endometrial hyperplasia Chronic anemia Medical Decision Making Mini Zhu is a 32 year old female whopresents to the ED with pelvic pain Problems Addressed: Chronic anemia: chronic illness or injury Endometrial hyperplasia: chronic illness or injury Details: Will need LECTURER IN COMPUTER SCIENCE follow-up Pt appropriately referred to OB-TRAINING ENGINEER Intramural leiomyoma of uterus: chronic illness or injury Details: Will need LECTURER IN COMPUTER SCIENCE follow-up Right ovarian cyst: chronic illness or [...] Aysha Chandra MD Specialty: OG-OBSTETRICS & GYNECOLOGY [facility] [address] [place] [address] [facility] [address] Selene Parra MD 06/12/23 0432 [facility]2023-08-14 04:02:21 Pt given printed and verbal [...] with steady gait, in no apparent distress. [facility]2023-08-14 01:27:07 Pt vomited approx 200ml of water and bile. No blood noted. [place] [id number] 00:35:04 Pt arrived ambulatory with complaints of one episode of vomiting blood. Pt reports she became nauseated and at first threw up bile but then threw up dark red blood. Pt denies dark stools or excessiveNSAID use. Pt has been having intermittent abdominal pain for a week. Hx: Migraines, Bipolar, Anemia Cora Peraza [facility] - [facility]
--- NOTE | 2025-03-09 17:35 | ER ---
Nurse's Notes [facility] Tori Name: Judith Tobar Age: 34 yrs Sex: Female : 1990 Arrival Date: 03/09/2025 Time: 14:30 Bed 6 Private MD: Diagnosis: Presentation: 03/09 14:53 Chief complaint: Migraine x 4 days, chest tightness, SOB, palpitations, and left arm hb tremors that started after receiving Imitrex last night at [facility]. Coronavirus screen: At this time, the client does not indicate any symptoms associated with coronavirus-19. Ebola Screen: No symptoms or risks identified at this time. Onset: The symptoms/episode began/occurred 4 day(s) ago. Anaphylaxis evaluation, no signs or symptoms of anaphylaxis were noted. Initial Sepsis Screen: Does the patient meet any 2 criteria? No. Patient's initial sepsis screen is negative. Does the patient have a suspected source of infection? No. Patient's initial sepsis screen is negative. Risk Assessment: Do you want to hurt yourself or someone else? Patient reports no desire to harm self or others. Onset of symptoms was March 06, 2025. 14:53 Method Of Arrival: Wheelchair hb 14:53 Acuity: SHABBIR 3 hb Historical: - Allergies: 14:57 No Known Allergies; hb - PMHx: 14:53 Anemia; Anxiety; Bipolar disorder; insommnia; hb - PSHx: 14:53 breast surgery due to mastitis; tubal; hb - Immunization history:: Adult Immunizations up to date. - Infectious Disease History:: Denies. - Social history:: Smoking status: Reported history of juuling and/or vaping. Vital Signs: 14:53 BP 125 / 88; Pulse 106; Resp 18; Temp 98.2; Pulse Ox 100% on R/A; Weight 81.65 kg; hb Height 5 ft. 2 in. ; Pain 10/10; 14:53 Body Mass Index 32.92 (81.65 kg, 157.48 cm) hb 14:53 Pain Scale: Adult hb ED Course: 14:34 Patient arrived in ED. al6 14:35 Basil Sibley FNP-C is [facility]. hb 14:35 Yassine Ledbetter DO is Attending Physician. hb 14:53 Arm band placed on left wrist. hb 14:57 Triage completed. hb Administered Medications: No medications were administered Outcome: 17:35 Patient left the ED. hb Signatures: Laura Turner RN RN hb Beatrice Marshall Corrections: (The following items were deleted from the chart) 14:58 14:53 Allergies: No Known Allergies; hb hb 14:58 14:57 Allergies: GABAPENTIN; suicidal ideation; hb hb 14:58 14:53 BP 125 / 88; Pulse 106bpm; Resp 18bpm; Pulse Ox 100% RA; Temp 98.2F; Pain 10/10, hb Adult; hb
--- NOTE | 2025-03-09 17:35 | EDPHYS ---
Physician Documentation [facility] Renny Name: Judith Tobar Age: 34 yrs Sex: Female : 1990 Arrival Date: 03/09/2025 Time: 14:30 Bed 6 Private MD: ED Physician Yassine Ledbetter HPI: 03/09 16:01 This 34 yrs old Female presents to ER via Wheelchair with complaints of dr5 Allergic Reaction - to meds. 16:01 Onset: The symptoms/episode began/occurred this morning. Patient is a 34-year-old dr5 female with history of anemia, anxiety, bipolar disorder, and insomnia coming in with possible allergic reaction to medication that she took. Patient states that she was at [facility] ER yesterday had labs drawn and treated for migraine. Patient reports that they gave her Imitrex for the first time and now she has headache and slight tremors in both hands.. Historical: - Allergies: 14:57 No Known Allergies; hb - PMHx: 14:53 Anemia; Anxiety; Bipolar disorder; insommnia; hb - PSHx: 14:53 breast surgery due to mastitis; tubal; hb - Immunization history:: Adult Immunizations up to date. - Infectious Disease History:: Denies. - Social history:: Smoking status: Reported history of juuling and/or vaping. ROS: 16:01 Constitutional: as per hpi dr5 Exam: 16:22 Constitutional: This is a well developed, well nourished patient who is awake, alert, dr5 and in no acute distress. Head/Face: Normocephalic, atraumatic. Eyes: Pupils equal round and reactive to light, extra-ocular motions intact. Lids and lashes normal. Conjunctiva and sclera are non-icteric and not injected. Cornea within normal limits. Periorbital areas with no swelling, redness, or edema. Neck: Trachea midline, no thyromegaly or masses palpated, and no cervical lymphadenopathy. Supple, full range of motion without nuchal rigidity, or vertebral point tenderness. No Meningismus. Chest/axilla: Normal chest wall appearance and motion. Nontender with no deformity. No lesions are appreciated. Cardiovascular: Regular rate and rhythm with a normal S1 and S2. Normal PMI, no JVD. No pulse deficits. Respiratory: Lungs have equal breath sounds bilaterally, clear to auscultation. No rales, rhonchi or wheezes noted. No increased work of breathing, no retractions or nasal flaring. Back: No spinal tenderness. No costovertebral tenderness. Full range of motion. Skin: Warm, dry with normal turgor. Normal color with no rashes, no lesions, and no evidence of cellulitis. MS/ Extremity: Pulses equal, no cyanosis. Neurovascular intact. Full, normal range of motion. Neuro: Awake and alert, GCS 15, oriented to person, place, time, and situation. Cranial nerves II-XII grossly intact. Motor strength 5/5 in all extremities. Sensory grossly intact. Cerebellar exam normal. Normal gait. Vital Signs: 14:53 BP 125 / 88; Pulse 106; Resp 18; Temp 98.2; Pulse Ox 100% on R/A; Weight 81.65 kg; hb Height 5 ft. 2 in. ; Pain 10/10; 14:53 Body Mass Index 32.92 (81.65 kg, 157.48 cm) hb 14:53 Pain Scale: Adult hb MDM: 14:41 Medical Screening Exam initiated dr5 18:13 ED course: Patient eloped prior to getting labs and medication. Medical screening exam dr5 was completed and I did evaluate patient. Patient is stable in triage.. Administered Medications: No medications were administered Disposition: 16:59 I was immediately available on-site in the Emergency Department for consultation in the ms3 care of the patient. Disposition Summary: 03/09/25 17:35 Eloped Notes: Disposition: after being seen by provider hb Reason: unknown hb Signatures: Dispatcher [employer] EDNY Laura Turner RN RN hb Yassine Ledbetter DO DO ms3 Basil Sibley, ENGINE EMISSION TECHNICIAN-C ENGINE EMISSION TECHNICIAN-Cdr5 Corrections: (The following items were deleted from the chart) 14:58 14:53 Allergies: No Known Allergies; hb hb 14:58 14:57 Allergies: GABAPENTIN; suicidal ideation; hb hb
[2025-03-09 18:07] VITALS: BP 125/88; TEMP 98.2; O2SAT 100
== END 2025-03-09 17:35 | disposition left against medical advice (07) ==
LOC: ER 14:30
DX: R51.9 Headache, unspecified (principal); R25.1 Tremor, unspecified
CPT/HCPCS: 99281

== ENCOUNTER 2025-05-25 13:05 | Emergency (ER) | payer SELFPAY ==
--- OUTSIDE RECORDS SUMMARY | 2025-05-25 13:21 | XMS REPORT | Continuity of Care Document ---
Author Name Unknown Address [address] [address] [place] [address] Organization [facility] [place] Address [address] [place] [address] Care Team Providers Care Apple Packing Header Name Role Phone Liratj CURRAN, Ashley Primary Care Physician [phone] Nurse, Dat Rmchp Rgv Cprit Obgyn Attending Clini zenobia Unavailable Lesa Felipe CNM Attending Clinician HERMILO RICKS Attending Clinician Unavailable HERMILO RICKS Attending Clinician Unavailable DONI MARIE Attending Clinician Unavailable DONI MARIE Attending Clinician Unavailable Pgy4 Attending Clinician Unavailable Kaye House MD Attending Clinician [phone] PATRICE HOLLAND Attending Clinician Unavailab Patrice Nevarez MD Attending Clinician [phone] SELENE PARRA Attending Clinician Unavailable SELENE PRARA Attending Clinician Unavailable Selene Parra MD Attending Clinician [phone] Hermilo Ricks DO Attending Clinician [phone] Doni Marie MD Attending Clinician [phone] GABY TERRY Attending Clinician Unavailab shanna Terry FORM STRIPPER, Gaby Attending Clinician [phone] CHRISTY RG Attending Clinician Unavailable CHRISTY RG Attending Clinician Unavailable Landy FORM STRIPPER, Christy Matthews Attending Clinician [phone] CHAYO SRIVASTAVA Attending Clinician Unavailab Chayo Davis DO Attending Clinician [phone] Kavita OJEDA Attending Clinician Unavailable Rusty PAC, Kavita Rowe Attending Clinician [phone] Ibpete GUZMANP, Danie Ackerman Attending Clinician +[phone] MEMO RESENDIZ Attending Clinician Unavailable Memo Resendiz MD Attending Clinician [phone] DANII ARRIAGA Attending Clinician Unavailable Rose Hoff MD Attending Clinician [phone] Danii Ferrer Attending Clinician [phone] MICHELLE TERRY Attending Clinician UnavailMichelle Evans MD Attending Clinician + [phone] RAVEN LIEBERMAN Attending Clinician Unavailable Lieberman PAC, Raven S Attending Clinician [phone] Doctor Unassigned, [place] Attending Clinician U SURAJ Blanca Attending Clinician UnavailSuraj Kee MD Attending Clinician + [phone] CAT RUTLEDGE Attending Clinician Unavailable LISA TRAN Attending Clinician Unavailable Lisa Cruz Attending Clinician + [phone] CL GATES Attending Clinician Unavailable ROCHELLE GOLD Attending Clinician Unavailable HERMILO RICKS Admitting Clinician Unavailable DONI MARIE Admitting Clinician Unavailable SELENE PARRA Admitting Clinician Unavailable SELNEE PARRA Admitting Clinician Unavailable DONI MARIE Admitting Clinician Unavailable DANIE ONTIVEROS F Admitting Clinician Unavaila DANII Bolanos Admitting Clinician Unavailable LIEBERMAN, RAVEN S Admitting Clinician Unavailable SURAJ SCOTT Admitting Clinician UnavailCAT Mars Admitting Clinician Unavailable CHRISTY RG Admitting Clinician Unavailable Payers Payer Name Policy Type Policy Number Effective Date Expirati on Date Source [facility] [id number] 2023 00:00:00 Problems Condition Name Condition Details Condition Category Status Onset Date Resolution Date Last Treatment Date Treating Clinician Comments Source Acute nonintract able headache, unspecifie d headache type Acute nonintract able headache, unspecifie d headache type Disease Active 3- 00:00: 00 [facility] Other migraine without status migrainosu s, not intractabl e Other migraine without status migrainosu s, not intractabl e Disease Active 3- 00:00: 00 [facility] Lower abdominal pain Lower abdominal pain Disease Active 1- 00:00: 00 [facility] Ureterolit hiasis Ureterolit hiasis Disease Active 8- 00:00: 00 [facility] No known active problems No known active problems Disease [facility] Allergies, Adverse Reactions, Alerts Allergy Name Allergy Type Status Severity Reaction(s) Onset Date Inactive Date Treating Clinician Comments Source SUMATRIP FRANKS DRUG INGREDI Active Palpitations 04-14 00:00: 00 [facility] Sumatrip franks Propensi ty to adverse reaction s Active Palpitations 04-14 00:00: 00 Rapid heart rate [facility] BUSPIRON E DRUG INGREDI Active Other-Cmnt 12-17 00:00: 00 [facility] Buspiron e Propensi ty to adverse reaction s Active Other - See comments 12-17 00:00: 00 Gives SI thoughts [facility] GABAPENT IN DRUG INGREDI Active Other-Cmnt 2022-10 0 00:00: 00 [facility] Gabapent in Propensi ty to adverse reaction s Active Other - See comments 2022-10 0 00:00: 00 Manic episodes [facility] NO KNOWN ALLERGIE S Drug Class Active [facility] Social History Social Habit Start Date Stop Date Quantity Comments Source ASSERTION Possible [facility] 2025-02-04 00:00:00 2025-02-04 00:00:00 [facility] Exposure to SARS-CoV-2 (event) 2023-02-24 00:00:00 2023-03-06 22:59:00 Not sure [facility] Sex assigned at 1990 00:00:00 1990 00:00:00 [facility] Smoking Status Start Date Stop Date Source Tobacco smoking consumption unknown [facility] Medications Ordered Medication Name Filled Medication Name Start Date Stop Date Current Medication? Ordering Clinician Indication Dosage Frequency Signature (SIG) Comments Components Source iopamidol (ISOVUE 370-500 mL) injection 85 mL 04-14 15:45: 00 04-14 15:45 :00 No [id number] 85mL 85 mL, Intravenou s, ONCE, 1 dose, On Sun04/14/25 at 1045, Routine [facility] maalox/diph enhydrAMINE :lidocaine2 %viscous 1:1:1: suspension (COMPOUNDED ) 04-14 13:30: 00 04-14 13:45 :00 No 15mL 15 mL, Oral, ONCE, 1 dose, On Sun04/14/25 at 0830, Routine [facility] dicyclomine 20 mg tablet 04-14 00:00: 00 Yes [id number] 20mg Take 1 tablet by mouth 4 times daily. [facility] NaCl 0.9% (NS) bolus infusion 1,000 mL 03-09 06:30: 00 03-09 07:43 :00 No 1000mL at 999 mL/hr, 1,000 mL, IV Infusion, ONCE, 1 dose, On Sun03/09/25 at 0130, STAT [facility] methylpredn isolone sod succ (SOLU-MEDRO L) injection 125 mg 03-09 06:30: 00 03-09 05:37 :00 No 125mg 125 mg, Slow IV Push, ONCE NOW, 1 dose, On Sun03/09/25 at 0130, NICOLASA [facility] magnesium sulfate in D5W 1 gram/100 mL RTU IV Piggyback 1 g 03-09 06:30: 00 03-09 06:39 :00 No 1g 1 g, IV Piggyback, ONCE, 1 dose, On 03/09/25 at 0130, Administer over 60 Minutes, 100 mL [facility] ondansetron (ZOFRAN (PF)) injection 4 mg 03-09 04:00: 00 03-09 03:15 :00 No 4mg 4 mg, Slow IV Push, ONCE, 1 dose, On Sun03/08/25 at 2300, 2 mL [facility] ketorolac (TORADOL) injection 30 mg 03-09 04:00: 00 03-09 03:16 :00 No 30mg 30 mg, Slow IV Push, ONCE, 1 dose, On Sun03/08/25 at 2300, NICOLASA [facility] caffeine tablet 200 mg caffeine tablet 200 mg 03-09 03:00: 00 03-09 03:31 :00 Yes 200mg 200 mg, Oral, Once, 1 dose, On Sun03/08/25 at 2200, NICOLASA [facility] diphenhydrA MINE (BENADRYL) injection 25 mg 03-09 03:00: 00 03-09 03:16 :00 No 25mg 25 mg, Slow IV Push, ONCE, 1 dose, On Sun03/08/25 at 2200, STAT [facility] SUMAtriptan 50 mg tablet 03-09 00:00: 00 Yes [id number] 50mg Take 1 tablet by mouth 3 times daily as needed for Migraine. [facility] Lidocaine (LIDOCARE) 4 % patch 1 Patch 01-27 18:30: 00 01-28 06:29 :00 No 1{patch } 1 Patch, Topical, Administer over 12 Hours, ONCE, 1 dose, On Sun01/27/25 at 1330, Routine [facility] ketorolac (TORADOL) injection 30 mg 01-27 18:15: 00 01-27 17:57 :00 No 30mg 30 mg, Slow IV Push, ONCE, 1 dose, On Sun01/27/25 at 1315, Routine [facility] methocarbam oL (ROBAXIN) tablet 1,000 mg 01-27 17:45: 00 01-27 17:52 :00 No 1000mg 1,000 mg, Oral, ONCE, 1 dose, On Sun01/27/25 at 1245, NICOLASA [facility] diphenhydrA MINE (BENADRYL) injection 12.5 mg 01-27 17:45: 00 01-27 17:55 :00 No 12.5mg 12.5 mg, Slow IV Push, ONCE, 1 dose, On Sun01/27/25 at 1245, STAT [facility] metoclopram farzana HCl (REGLAN) injection 10 mg 01-27 17:45: 00 01-27 17:57 :00 No 10mg 10 mg, Slow IV Push, ONCE, 1 dose, On Sun01/27/25 at 1245, NICOLASA [facility] methocarbam oL 500 mg tablet 01-27 00:00: 00 02-04 00:00 :00 No [id number] 4 500mg Take 1 tablet by mouth 4 (four) times daily for 10 days. [facility] methylPREDN ISolone 4 mg tablets 01-27 00:00: 00 02-04 00:00 :00 No [id number] 4 Take by mouth SEE-INSTRU CTIONS. follow package directions [facility] lidocaine 5 % (700 mg/patch) patch 01-27 00:00: 00 02-04 00:00 :00 No [id number] 4 1{patch } Apply 1 Patch to area(s) in the morning for 30 doses. [facility] iopamidol (ISOVUE 370-500 mL) injection 85 mL 01-17 09:30: 00 01-17 09:30 :00 No [id number] 85mL 85 mL, Intravenou s, ONCE, 1 dose, On 01/17/25 at 0430, Routine [facility] ketorolac (TORADOL) injection 30 mg 01-17 09:15: 01-17 08:15 :00 No 30mg 30 mg, Slow IV Push, ONCE, 1 dose, On 01/17/25 at 0415, Routine [facility] metoclopram farzana HCl (REGLAN) injection 10 mg 01-17 08:15: 01-17 08:16 :00 No 10mg 10 mg, Slow IV Push, ONCE, 1 dose, On 01/17/25 at 0315, NICOLASA [facility] diphenhydrA MINE (BENADRYL) injection 25 mg 01-17 08:15: 01-17 08:16 :00 No 25mg 25 mg, Slow IV Push, ONCE, 1 dose, On 01/17/25 at 031, STAT [facility] Nitrofurant oin&Nit. Macrocryst (MACROBID) 100 mg capsule 01-17 00:00: 00 02-04 00:00 :00 No [id number] 100mg Take 1 capsule by mouth in the morning and 1 capsule in the evening. [facility] iopamidol (ISOVUE 370-500 mL) injection 85 mL 01-05 13:15: 01-05 13:15 :00 No [id number] 85mL 85 mL, Intravenou s, ONCE, 1 dose, On Sun01/05/25 at 0815, Routine [facility] NaCl 0.9% (NS) bolus infusion 1,000 mL 01-05 12:00: 00 01-05 14:39 :00 No 1000mL at 999 mL/hr, 1,000 mL, IV Piggyback, ONCE, 1 dose, On Sun01/05/25 at 0700, STAT [facility] NaCl 0.9% (NS) bolus infusion 1,000 mL 01-05 11:15: 01-05 10:56 :00 No 1000mL at 999 mL/hr, 1,000 mL, IV Piggyback, ONCE, 1 dose, On Sun01/05/25 at 0615, STAT [facility] ondansetron (ZOFRAN (PF)) injection 4 mg 01-05 11:00: 00 01-05 10:58 :00 No 4mg 4 mg, Slow IV Push, ONCE, 1 dose, On Sun01/05/25 at 0600, Administer over 2-5 Minutes, 2 mL [facility] butalbital- acetaminoph en-caff (ESGIC) 50-325-40 mg tablet 1 tablet 12-18 06:00: 00 12-18 06:24 :00 No 1{tbl} 1 tablet, Oral, ONCE, 1 dose, On Sun12/18/24 at 0000[facility]hen[facility] (BENADRYL) injection 25 mg 12-18 06:00: 00 12-18 06:24 :00 No 25mg 25 mg, Slow IV Push, ONCE, 1 dose, On Sun12/18/24 at 0000, [facility] metoclopram farzana HCl (REGLAN) injection 10 mg 12-18 06:00: 00 12-18 06:24 :00 No 10mg 10 mg, Slow IV Push, ONCE, 1 dose, On Sun12/18/24 at 0000, [facility] metoclopram farzana 10 mg tablet 12-18 00:00: 00 Yes 1mg Darryl Waggoner pantoprazol e 40 mg tablet,renny yed release - 00:00: 00 Yes 1mg Darryl Waggoner ondansetron 8 mg disintegrat ing tablet - 00:00: 00 Yes 1mg Darryl Waggoner HYDROcodone -acetaminop hen (NORCO) 10-325 mg tablet 1 tablet -05 05:30: 00 11-19 04:43 :00 No 1{tbl} 1 tablet, Oral, ONCE NOW, 1 dose, On Sun11/18/24 at 2330, Routine [facility] amoxicillin (TRIMOX) capsule 500 mg 2 04:30: 00 11-19 04:43 :00 No 500mg 500 mg, Oral, ONCE, 1 dose, On Sun11/18/24 at 2230, NICOLASA, Reason for Anti-Infec tive: Documented Infection, Documented Infection Site: HEENT, Duration of Therapy: Once (ED) [facility] ibuprofen 800 mg tablet 2- 00:00: 00 02-04 00:00 :00 No [id number] 800mg Take 1 tablet by mouth every 8 (eight) hours as needed for Alternate with [place] for pain scale 1-3. [facility] amoxicillin 500 mg capsule 11-18 00:00: 00 02-04 00:00 :00 No [id number] 500mg Take 1 capsule by mouth in the morning and 1 capsule at noon and 1 capsule in the evening. [facility] Bromfed DM 2 mg-30 mg-10 mg/5 mL oral syrup 1-08 00:00: 00 Yes 10mg/5 mL Darryl Waggoner metoclopram farzana HCl (REGLAN) injection 10 mg 2023-10 13:15: 00 07-25 13:23 :00 No 10mg 10 mg, Slow IV Push, ONCE, 1 dose, On Sun07/25/24 at 0815, NICOLASA [facility] pantoprazol e 40 mg EC tablet 2023-10 00:00: 00 Yes [id number] 40mg Take 1 tablet by mouth in the morning. [facility] metoclopram farzana HCl 10 mg tablet 2023-1011 00:00: 00 02-04 00:00 :00 No [id number] 10mg Take 1 tablet by mouth every 6 (six) hours. [facility] iopamidol (ISOVUE 370-500 mL) injection 85 mL 9-20 09:45: 00 07-04 09:45 :00 No [id number] 85mL 85 mL, Intravenou s, ONCE, 1 dose, On Sun07/04/24 at 0445, Routine [facility] ketorolac (TORADOL) injection 30 mg 07-04 09:15: 00 07-04 08:27 :00 No 30mg 30 mg, Slow IV Push, ONCE, 1 dose, On Sun07/04/24 at 0415, Routine [facility] Lidocaine Viscous 2 % mucosal solution [...] 03-12 10:15: 00 03-12 10:15 :00 No [id number] 100mL 100 mL, Intravenou s, ONCE, 1 [...] 03-12 00:00: 00 02-04 00:00 :00 No [id number] 1{tbl} Take 1 tablet by mouth every 6 (six) hours as needed (Headache) . [facility] dicyclomine 20 mg tablet 03-12 00:00: 00 02-04 00:00 :00 No [id number] 20mg Take 1 tablet by mouth every 6 (six) hours as needed for Abdominal pain. [facility] metoclopram farzana HCl 10 mg tablet 03-12 00:00: 00 07-25 00:00 :00 No [id number] 10mg Take 1 tablet by mouth every 6 (six) hours. [facility] ondansetron HCl 4 mg tablet 03-06 00:00: 00 Yes 1mg Darryl Waggoner iopamidol (ISOVUE 370-500 mL) injection 85 mL 02-02 11:00: 00 02-02 11:00 :00 No [id number] 85mL 85 mL, Intravenou s, ONCE, 1 [...] 02-02 00:00: 00 02-04 00:00 :00 No [id number] 20mg Take 1 tablet by mouth every 6 (six) hours as needed for Abdominal pain. [facility] metoclopram farzana HCl 10 mg tablet 02-02 00:00: 00 07-25 00:00 :00 No [id number] 10mg Take 1 tablet by mouth every 6 (six) hours. [facility] pantoprazol e (PROTONIX) 40 mg EC tablet 02-02 00:00: 00 07-25 00:00 :00 No [id number] 40mg Take 1 tablet by mouth in [...] 01-01 00:00: 00 02-04 00:00 :00 No [id number] 500mg Take 2 tablets by mouth SEE-INSTRU CTIONS. Take 500 mg day 1, then 250 mg days 2 to 5. [facility] loratadine- pseudoephed rine (CLARITIN-D 24 HOUR) 10-240 mg per 24 hr tablet 01-01 00:00: 00 02-04 00:00 :00 No [id number] 1{tbl} Take 1 tablet by mouth in the morning. [facility] dextrometho rphan-guaif enesin 10-100 mg/5 mL solution 01-01 00:00: 00 02-04 00:00 :00 No [id number] 10mL Take 10 mL by mouth every 6 (six) hours as needed for Cough. [facility] butalbital- acetaminoph en-caff (ESGIC) 50-325-40 mg tablet 1 tablet 12-25 09:15: 00 12-25 09:09 :00 No 1{tbl} 1 tablet, Oral, ONCE, 1 dose, On Sun12/26/23 at 0415, NICOLASA [facility] butalbital- acetaminoph en-caff 50-325-40 mg tablet 12-25 00:00: 00 02-04 00:00 :00 No [id number] 1{tbl} Take 1 tablet by mouth every 6 (six) hours as needed (Headache) . [facility] ketorolac (TORADOL) injection 30 mg 11-20 17:15: 00 11-20 16:28 :00 No 30mg 30 mg, Slow IV Push, ONCE, 1 dose, On Sun11/20/23 at 1115, NICOLASA [facility] iopamidol (ISOVUE 370-500 mL) injection 80 mL 11-20 14:30: 00 11-20 14:45 :00 No [id number] 80mL 80 mL, Intravenou s, ONCE, 1 dose, On Sun11/20/23 at 0845, Routine [facility] NaCl 0.9% (NS) bolus infusion 1,000 mL 11-20 14:15: 00 11-20 16:26 :00 No 1000mL at 999 mL/hr, 1,000 mL, IV Infusion, ONCE, 1 dose, On Sun11/20/23 at 0815, STAT [facility] ondansetron 4 mg disintegrat ing tablet 11-20 00:00: 00 Yes [id number] 4mg Take 1 tablet by mouth every 4 (four) hours as needed for Nausea and Vomiting (N/V). [facility] cephALEXin (KEFLEX) 500 mg capsule 11-20 00:00: 00 02-04 00:00 :00 No [id number] 500mg Take 1 capsule by mouth in the morning and 1 capsule at noon and 1 capsule in the evening. [facility] naproxen 500 mg tablet 11-20 00:00: 00 12-01 05:59 :00 No [id number] 500mg Take 1 tablet by mouth in [...] 200 mg capsule 10-27 00:00: 00 Yes [id number] 200mg Take 1 capsule by mouth 3 (three) times daily as needed for Cough for up to 20 doses. [facility] ibuprofen 600 mg tablet 10-27 00:00: 00 Yes [id number] 600mg Take 1 tablet by mouth every 6 (six) hours as needed for Pain (scale 4-6). [facility] ondansetron 4 mg disintegrat ing tablet 10-27 00:00: 00 11-20 00:00 :00 No [id number] 4mg Take 1 tablet by mouth every [...] 2022-10 00:00: 00 11-12 00:00 :00 No [id number] 10mg Take 1 tablet by mouth every 6 (six) hours as needed for Pain (scale 7-10). [facility] glycerin/mi neral oil, AGLO ENEMA, Enem 2022-10 00:00: 00 11-12 00:00 :00 No [id number] 225mL Insert 225 mL into rectum as needed for Constipati on. [facility] cefdinir 300 mg capsule 2022-10 00:00: 00 09-16 05:59 :00 No [id number] 300mg Take 1 capsule by mouth every 12 (twelve) hours for 7 days. [facility] lactulose 10 gram/15 mL solution 2022-10 00:00: 00 09-14 05:59 :00 No [id number] 15mL Take 15 mL by mouth in the morning for 5 days. [facility] HYDROcodone -acetaminop hen (NORCO 5) 5-325 mg tablet 1 tablet 2022-10 13:15: 00 09-07 13:33 :00 No 1{tbl} 1 tablet, Oral, ONCE, 1 dose, On Sun09/07/23 at 0715, [facility] diazePAM (VALIUM) tablet 5 mg 2022-10 13:15: 09-07 13:33 :00 No 5mg 5 mg, Oral, ONCE, 1 dose, On Sun09/07/23 at 0715, [facility] dexamethaso ne sod phos PF injection 10 mg 2022-10 13:15: 00 09-07 13:33 :00 No 10mg 10 mg, Oral, ONCE, 1 dose, On Sun09/07/23 at 0715, 1 mL [facility] methocarbam oL 750 mg tablet 2022-10 00:00: 00 11-12 00:00 :00 No [id number] 750mg Take 1 tablet by mouth every 6 (six) hours as needed for Pain (scale 1-3). [facility] ondansetron (ZOFRAN (PF)) injection 4 mg 2022-10 02:00: 00 09-04 02:30 :00 No 4mg 4 mg, Slow IV Push, ONCE, 1 dose, On Sun09/03/23 at 1999, [facility] meclizine (TRAVEL-EAS E (MECLIZINE) ) tablet 50 mg 2022-10 02:00: 00 09-04 02:30 :00 No 50mg 50 mg, Oral, ONCE, 1 dose, On Sun09/03/23 at 1999, [facility] ondansetron (ZOFRAN) 4 mg tablet 2022-10 00:00: 00 Yes [id number] 4mg Take 1 tablet by mouth every 8 (eight) hours as needed for Nausea and Vomiting (N/V). [facility] meclizine 25 mg tablet 2022-10 00:00: 00 11-12 00:00 :00 No [id number] 25mg Take 1 tablet by mouth every 6 (six) hours. [facility] ondansetron (ZOFRAN-ODT ) disintegrat ing tablet 4 mg 2022-10 08:30: 00 07-26 07:45 :00 No 4mg 4 mg, Oral, ONCE, 1 dose, On Ashley 07/26/23 at 0330, Routine [facility] proMETHazin e 25 mg tablet 2022-10 00:00: 00 09-03 00:00 :00 No [id number] 12.5mg Take 0.5 tablets by mouth every 6 (six) hours as needed for Nausea and Vomiting (N/V). [facility] loratadine 10 mg tablet 2022-10 00:00: 00 02-04 00:00 :00 No [id number] 10mg Take 1 tablet by mouth at bedtime as needed for Allergies or Runny nose. [facility] albuterol 90 mcg/actuati on inhaler 2022-10 00:00: 00 02-04 00:00 :00 No [id number] 2{puff} Inhale 2 Puffs every 4 (four) hours as needed for Wheezing or Shortness of Breath. [facility] benzonatate 200 mg capsule 2022-10 00:00: 00 11-12 00:00 :00 No [id number] 200mg Take 1 capsule by mouth 3 (three) times daily as needed for Cough. [facility] fluticasone propionate 50 mcg/actuati on nasal spray 2022-10 00:00: 00 11-12 00:00 :00 No [id number] 2{spray } Use 2 Sprays in each nostril in the morning. [facility] predniSONE 20 mg tablet 2022-10 011 00:00: 00 07-31 04:59 :00 No [id number] 40mg Take 2 tablets by mouth in the morning for 5 days. [facility] TAKE 1 TABLET DAILY. 2022-10 00:00: 00 01-30 00:00 :00 No 10 Darryl Waggoner ibuprofen 800 mg tablet 07-12 00:00: 00 11-12 00:00 :00 No [id number] 800mg Take 1 tablet by mouth every 8 (eight) hours. [facility] methylPREDN ISolone sodium succinate (SOLU-MEDRO L) injection 125 mg 06-24 17:00: 00 06-24 11:35 :44 No 125mg 125 mg, Intramuscu lar, Q6H, First dose on Sun06/24/23 at 1200, Until Discontinu ed, Routine [facility] gabapentin 300 mg capsule 06-24 00:00: 00 11-12 00:00 :00 No [id number] 300mg Take 1 capsule by mouth in [...] 06-18 00:00: 00 11-12 00:00 :00 No [id number] 200mg Take 1 capsule by mouth 3 (three) times daily as needed for Cough. [facility] azithromyci n 250 mg tablet 06-18 00:00: 00 09-03 00:00 :00 No [id number] 250mg Take 1 tablet by mouth SEE-INSTRU CTIONS. Take 500 mg day 1, then 250 mg days 2 to 5. [facility] ondansetron 4 mg tablet 06-18 00:00: 00 09-03 00:00 :00 No [id number] 1 or 2 tablets every 8 hours [...] 1 dose, On Sun06/12/23 at 0245, STAT [facility] ketorolac (TORADOL) injection 30 mg 06-12 06:15: 06-12 05:10 :00 No 30mg 30 mg, Slow IV Push, ONCE, 1 dose, On Sun06/12/23 at 0115[facility] NaCl 0.9% (NS) bolus infusion 1,000 mL 06-12 06:15: 06-12 06:56 :00 No 1000mL at 999 mL/hr, 1,000 mL, IV Infusion, ONCE, 1 dose, On Sun06/12/23 at 0115, STAT [facility] cefTRIAXone (ROCEPHIN) 1,000 mg in NaCl 0.9% (NS) 100 mL MINI-BAG 06-12 05:15: 06-12 06:56 :00 No 1000mg 1,000 mg, IV Piggyback, ONCE, 1 dose, On Sun06/12/23 at 0015, Administer over 30 Minutes, 100 mL
Reas on for Anti-Infec tive: Empiric Therapy for Suspected Infection< br>Empiric Therapy Site: Pelvic
Duration of therapy: 72 hours [facility] ondansetron (ZOFRAN (PF)) injection 4 mg 06-12 05:15: 06-12 05:10 :00 No 4mg 4 mg, Slow IV Push, ONCE, 1 dose, On Sun06/12/23 at 0015, [facility] ibuprofen 800 mg tablet 06-12 00:00: 00 07-12 00:00 :00 No [id number] 800mg Take 1 tablet by mouth every 8 (eight) hours as needed for Pain (scale 4-6). [facility] TAKE 1 TABLET TWICE DAILY. 05-31 00:00: 00 01-30 00:00 :00 No 100 Darryl Waggoner iopamidol (ISOVUE 370-500 mL) injection 85 mL 05-28 08:30: 00 05-28 08:30 :00 No [id number] 85mL 85 mL, Intravenou s, ONCE, 1 [...] 05-28 00:00: 00 09-03 00:00 :00 No [id number] 4mg Take 1 tablet by mouth every 8 (eight) hours as needed for Nausea and Vomiting (N/V). [facility] esomeprazol e (NEXIUM) 40 mg capsule 05-28 00:00: 00 06-12 04:59 :00 No [id number] 40mg Take 1 capsule by mouth daily [...] 03-06 00:00: 00 09-03 00:00 :00 No [id number] 5mg Take 1 tablet by mouth every [...] 02-02 00:00: 00 11-12 00:00 :00 No [id number] 1{tbl} Take 1 tablet by mouth every 4 (four) hours as needed for Pain (scale 7-10). [facility] ondansetron (ZOFRAN) 4 mg tablet 02-02 00:00: 00 05-28 00:00 :00 No [id number] 4mg Take 1 tablet by mouth every 8 (eight) hours as needed for Nausea and Vomiting (N/V). [facility] iopamidol (ISOVUE 370-500 mL) injection 98 mL 1-10 21:00: 00 10-24 21:00 :00 No [id number] 98mL 98 mL, Intravenou s, ONCE, 1 [...] 10-24 00:00: 00 05-28 00:00 :00 No [id number] 4mg Take 1 tablet by mouth every 8 (eight) hours as needed for Nausea and Vomiting (N/V) for up to 10 doses. [facility] cephALEXin (KEFLEX) 500 mg capsule 10-24 00:00: 00 11-01 05:59 :00 No [id number] 500mg Take 1 capsule by mouth 4 (four) times daily for 7 days. [facility] ibuprofen 600 mg tablet 10-24 00:00: 00 10-30 05:59 :00 No [id number] 600mg Take 1 tablet by mouth every 8 (eight) hours as needed for Pain (scale 4-6) for up to 5 days. [facility] dicyclomine 20 mg tablet 10-24 00:00: 00 10-30 05:59 :00 No [id number] 20mg Take 1 tablet by mouth 3 (three) times daily as needed for Abdominal pain for up to 5 days. [facility] megestroL 40 mg tablet 2021-10 00:00: 00 11-12 00:00 :00 No [id number] 100 Take by mouth 2 tabs for first 7 days then 1 tablet by mouth daily for next 14 days. [facility] cephALEXin (KEFLEX) 500 mg capsule 2021-10 00:00: 00 07-29 04:59 :00 No [id number] 100 500mg Take 1 capsule by mouth in the morning and 1 capsule at noon and 1 capsule in the evening. Do all this for 7 days. [facility] iopamidol (ISOVUE 370-500 mL) injection 65 mL 05-19 21:30: 00 05-19 21:45 :00 No [id number] 65mL 65 mL, Intravenou s, ONCE, 1 [...] mg 24 hr capsule 05-19 00:00: 00 2024- 01-29 00:00 :00 No [id number] .4mg Take 1 capsule by mouth at bedtime. [facility] traMADoL 50 mg tablet 8-05 00:00: 00 05-27 04:59 :00 No [id number] [...] 05-13 00:00: 00 11-12 00:00 :00 No [id number] 10mg Take 1 tablet by mouth every [...] 10-25 00:00: 00 11-02 05:59 :00 No [id number] 300mg Take 1 capsule by mouth 2 [...] 00:00: 00 No 1mg No known medications 6-25 21:44: 39 No [facility] amitriptyli ne 25 mg tablet 5-20 00:00: 00 Yes 1mg Darryl Waggoner amitriptyli ne 25 mg tablet 5-20 00:00: 00 No 1mg amitriptyli ne 25 mg tablet 520 00:00: 00 No 1mg Dose Unknown 3-27 00:00: 00 Yes Darryl Waggoner Dose Unknown 3- 00:00: 00 No Dose Unknown - 00:00: 00 No Celexa 20 mg tablet 2-24 00:00: 00 Yes 1mg Darryl Waggoner gabapentin 600 mg tablet 2-24 00:00: 00 Yes 1mg Darryl Waggoner Dose Unknown 2- 00:00: 00 Yes Darryl Waggoner Celexa 20 mg tablet 12-08 00:00: 00 No 1mg gabapentin 600 mg tablet 12-08 00:00: 00 No 1mg Dose Unknown 12-08 00:00: 00 No Celexa 20 mg tablet 12-08 00:00: 00 No 1mg gabapentin 600 mg tablet 12-08 00:00: 00 No 1mg Dose Unknown 12-08 00:00: 00 No Immunizations Ordered Immunization Name Filled Immunization Name Date Status Comments Source HPV9 2025-05-08 00:00:00 Completed HPV9 2025-02-04 00:00:00 Completed SARS-COV-2 COVID-19 VACCINE - (MODERNA) 2021-01-12 00:00:00 Completed SARS-COV-2 COVID-19 VACCINE - (MODERNA) 2020-12-15 00:00:00 Completed TDAP 2016-08-23 00:00:00 Completed [facility] Vital Signs Vital Name Observation Time Observation Value Comments S ource Body temperature 2025-05-08 13:05:00 36.33 Jennifer [facility] Systolic blood pressure 2025-04-14 16:28:36 130 mm[Hg] [facility] Diastolic blood pressure 2025-04-14 16:28:36 90 mm[Hg] [facility] Heart rate 2025-04-14 16:28:36 93 /min [facility] Body temperature 2025-04-14 16:28:36 37.78 Jennifer [facility] Respiratory rate 2025-04-14 16:28:36 16 /min [facility] Oxygen saturation in Arterial blood by Pulse oximetry 2025-04-14 16:28:36 100 /min [facility] Body height 2025-04-14 13:10:00 157.5 cm [facility] Body weight 2025-04-14 13:10:00 81.647 kg [facility] BMI 2025-04-14 13:10:00 32.92 kg/m2 [facility] Systolic blood pressure 2025-03-09 07:37:00 126 mm[Hg] [facility] Diastolic blood pressure 2025-03-09 07:37:00 85 mm[Hg] [facility] Heart rate 2025-03-09 07:37:00 95 /min [facility] Body temperature 2025-03-09 07:37:00 36.83 Jennifer [facility] Respiratory rate 2025-03-09 07:37:00 17 /min [facility] Oxygen saturation in Arterial blood by Pulse oximetry 2025-03-09 07:37:00 98 /min [facility] Body height 2025-03-09 02:30:00 157.5 cm [facility] Body weight 2025-03-09 02:30:00 81.647 kg [facility] BMI 2025-03-09 02:30:00 32.92 kg/m2 [facility] Systolic blood pressure 2025-02-04 19:15:00 126 mm[Hg] [facility] Diastolic blood pressure 2025-02-04 19:15:00 83 mm[Hg] [facility] Heart rate 2025-02-04 19:15:00 98 /min [facility] Body temperature 2025-02-04 19:15:00 36.5 Jennifer [facility] Respiratory rate 2025-02-04 19:15:00 20 /min [facility] Body height 2025-02-04 19:15:00 157.5 cm [facility] Body weight 2025-02-04 19:15:00 84.414 kg [facility] BMI 2025-02-04 19:15:00 34.04 kg/m2 [facility] Body temperature 2025-01-27 18:45:00 37 Jennifer [facility] Systolic blood pressure 2025-01-27 18:00:00 124 mm[Hg] [facility] Diastolic blood pressure 2025-01-27 18:00:00 91 mm[Hg] [facility] Heart rate 2025-01-27 18:00:00 89 /min [facility] Respiratory rate 2025-01-27 18:00:00 16 /min [facility] Oxygen saturation in Arterial blood by Pulse oximetry 2025-01-27 18:00:00 98 /min [facility] Body height 2025-01-27 17:26:00 157.5 cm [facility] Body weight 2025-01-27 17:26:00 79.379 kg [facility] BMI 2025-01-27 17:26:00 32.01 kg/m2 [facility] Systolic blood pressure 2025-01-17 09:03:00 115 mm[Hg] [facility] Diastolic blood pressure 2025-01-17 09:03:00 79 mm[Hg] [facility] Heart rate 2025-01-17 09:03:00 89 /min [facility] Body temperature 2025-01-17 09:03:00 36.89 Jennifer [facility] Respiratory rate 2025-01-17 09:03:00 16 /min [facility] Oxygen saturation in Arterial blood by Pulse oximetry 2025-01-17 09:03:00 100 /min [facility] Body height 2025-01-17 07:25:00 157.5 cm [facility] Body weight 2025-01-17 07:25:00 81.647 kg [facility] BMI 2025-01-17 07:25:00 32.92 kg/m2 [facility] Systolic blood pressure 2025-01-05 14:39:00 125 mm[Hg] [facility] Diastolic blood pressure 2025-01-05 14:39:00 84 mm[Hg] [facility] Heart rate 2025-01-05 14:39:00 99 /min [facility] Body temperature 2025-01-05 14:39:00 37.33 Jennifer [facility] Respiratory rate 2025-01-05 14:39:00 16 /min [facility] Oxygen saturation in Arterial blood by Pulse oximetry 2025-01-05 14:39:00 98 /min [facility] Body height 2025-01-05 10:11:00 157.5 cm [facility] Body weight 2025-01-05 10:11:00 83.462 kg [facility] BMI 2025-01-05 10:11:00 33.65 kg/m2 [facility] Systolic blood pressure 2024-12-18 07:00:00 101 mm[Hg] [facility] Diastolic blood pressure 2024-12-18 07:00:00 71 mm[Hg] [facility] Heart rate 2024-12-18 07:00:00 90 /min [facility] Respiratory rate 2024-12-18 07:00:00 16 /min [facility] Oxygen saturation in Arterial blood by Pulse oximetry 2024-12-18 07:00:00 97 /min [facility] Body temperature 2024-12-18 05:54:00 37.11 Jennifer [facility] Body height 2024-12-18 05:54:00 157.5 cm [facility] Body weight 2024-12-18 05:54:00 83.462 kg [facility] BMI 2024-12-18 05:54:00 33.65 kg/m2 [facility] Systolic blood pressure 2024-11-19 04:41:00 120 mm[Hg] [facility] Diastolic blood pressure 2024-11-19 04:41:00 93 mm[Hg] [facility] Heart rate 2024-11-19 04:41:00 78 /min [facility] Body temperature 2024-11-19 04:41:00 36.83 Jennifer [facility] Respiratory rate 2024-11-19 04:41:00 16 /min [facility] Oxygen saturation in Arterial blood by Pulse oximetry 2024-11-19 04:41:00 99 /min [facility] Body height 2024-11-19 03:00:00 157.5 cm [facility] Body weight 2024-11-19 03:00:00 86.183 kg [facility] BMI 2024-11-19 03:00:00 34.75 kg/m2 [facility] Systolic blood pressure 2024-11-09 04:37:00 130 mm[Hg] [facility] Diastolic blood pressure 2024-11-09 04:37:00 89 mm[Hg] [facility] Heart rate 2024-11-09 04:37:00 88 /min [facility] Body temperature 2024-11-09 04:37:00 37 Jennifer [facility] Respiratory rate 2024-11-09 04:37:00 19 /min [facility] Body height 2024-11-09 04:37:00 157.5 cm [facility] Body weight 2024-11-09 04:37:00 81.647 kg [facility] BMI 2024-11-09 04:37:00 32.92 kg/m2 [facility] Oxygen saturation in Arterial blood by Pulse oximetry 2024-11-09 04:37:00 100 /min [facility] Systolic blood pressure 2024-07-25 14:30:00 124 mm[Hg] [facility] Diastolic blood pressure 2024-07-25 14:30:00 83 mm[Hg] [facility] Heart rate 2024-07-25 14:30:00 88 [facility] 2024-07-25 14:30:00 14 /min [facility] Oxygen saturation in Arterial blood by Pulse oximetry 2024-07-25 14:30:00 99 /min [facility] Body temperature 2024-07-25 12:49:00 37.22 Jennifer [facility] Body height 2024-07-25 12:49:00 157.5 cm [facility] Body weight 2024-07-25 12:49:00 86.637 kg [facility] BMI 2024-07-25 12:49:00 34.93 kg/m2 [facility] Systolic blood pressure 2024-07-04 10:38:00 117 mm[Hg] [facility] Diastolic blood pressure 2024-07-04 10:38:00 79 mm[Hg] [facility] Heart rate 2024-07-04 10:38:00 82 /min [facility] Body temperature 2024-07-04 10:38:00 36.89 Jennifer [facility] Respiratory rate 2024-07-04 10:38:00 14 /min [facility] Oxygen saturation in Arterial blood by Pulse oximetry 2024-07-04 10:38:00 100 /min [facility] Body height 2024-07-04 07:28:00 157.5 cm [facility] Body weight 2024-07-04 07:28:00 79.379 kg [facility] BMI 2024-07-04 07:28:00 32.01 kg/m2 [facility] Systolic blood pressure 2024-03-12 11:00:00 127 mm[Hg] [facility] Diastolic blood pressure 2024-03-12 11:00:00 94 mm[Hg] [facility] Heart rate 2024-03-12 11:00:00 84 /min [facility] Body temperature 2024-03-12 11:00:00 36.61 Jennifer [facility] Respiratory rate 2024-03-12 11:00:00 14 /min [facility] Oxygen saturation in Arterial blood by Pulse oximetry 2024-03-12 11:00:00 100 /min [facility] Body height 2024-03-12 07:04:00 157.5 cm [facility] Body weight 2024-03-12 07:04:00 87 kg [facility] BMI 2024-03-12 07:04:00 35.08 kg/m2 [facility] Systolic blood pressure 2024-02-03 12:00:00 121 mm[Hg] [facility] Diastolic blood pressure 2024-02-03 12:00:00 82 mm[Hg] [facility] Heart rate 2024-02-03 12:00:00 80 /min [facility] Respiratory rate 2024-02-03 12:00:00 17 /min [facility] Oxygen saturation in Arterial blood by Pulse oximetry 2024-02-03 12:00:00 100 /min [facility] Body temperature 2024-02-03 09:01:00 37.33 Jennifer [facility] Body height 2024-02-03 09:01:00 [facility] 2024-02-03 09:01:00 81.647 kg [facility] BMI 2024-02-03 09:01:00 32.92 kg/m2 [facility] Systolic blood pressure 2024-01-02 05:38:00 109 mm[Hg] [facility] Diastolic blood pressure 2024-01-02 05:38:00 91 mm[Hg] [facility] Heart rate 2024-01-02 05:38:00 93 /min [facility] Body temperature 2024-01-02 05:38:00 36.28 Jennifer [facility] Respiratory rate 2024-01-02 05:38:00 20 /min [facility] Oxygen saturation in Arterial blood by Pulse oximetry 2024-01-02 05:38:00 99 /min [facility] Body height 2024-01-02 03:25:00 157.5 cm [facility] Body weight 2024-01-02 03:25:00 81.647 kg [facility] BMI 2024-01-02 03:25:00 32.92 kg/m2 [facility] Systolic blood pressure 2023-12-26 08:51:00 115 mm[Hg] [facility] Diastolic blood pressure 2023-12-26 08:51:00 78 mm[Hg] [facility] Heart rate 2023-12-26 08:51:00 98 /min [facility] Body temperature 2023-12-26 08:51:00 37.5 Jennifer [facility] Respiratory rate 2023-12-26 08:51:00 12 /min [facility] Body height 2023-12-26 08:51:00 157.5 cm [facility] Body weight 2023-12-26 08:51:00 85.322 kg [facility] BMI 2023-12-26 08:51:00 34.40 kg/m2 [facility] Oxygen saturation in Arterial blood by Pulse oximetry 2023-12-26 08:51:00 100 /min [facility] Systolic blood pressure 2023-11-20 16:29:00 120 mm[Hg] [facility] Diastolic blood pressure 2023-11-20 16:29:00 89 mm[Hg] [facility] Heart rate 2023-11-20 16:29:00 85 /min [facility] Respiratory rate 2023-11-20 16:29:00 16 /min [facility] Oxygen saturation in Arterial blood by Pulse oximetry 2023-11-20 16:29:00 97 /min [facility] Body temperature 2023-11-20 12:44:00 37.11 Jennifer [facility] Body height 2023-11-20 12:44:00 157.5 cm [facility] Body weight 2023-11-20 12:44:00 82.101 kg [facility] BMI 2023-11-20 12:44:00 33.11 kg/m2 [facility] Systolic blood pressure 2023-11-12 06:09:00 135 mm[Hg] [facility] Diastolic blood pressure 2023-11-12 06:09:00 86 mm[Hg] [facility] Heart rate 2023-11-12 06:09:00 89 /min [facility] Body temperature 2023-11-12 06:09:00 37.28 Jennifer [facility] Respiratory rate 2023-11-12 06:09:00 16 /min [facility] Body height 2023-11-12 06:09:00 157.5 cm [facility] Body weight 2023-11-12 06:09:00 83.553 kg [facility] BMI 2023-11-12 06:09:00 33.69 kg/m2 [facility] Oxygen saturation in Arterial blood by Pulse oximetry 2023-11-12 06:09:00 100 /min [facility] Systolic blood pressure 2023-10-28 02:30:00 121 mm[Hg] [facility] Diastolic blood pressure 2023-10-28 02:30:00 80 mm[Hg] [facility] Heart rate 2023-10-28 02:30:00 124 /min [facility] Body temperature 2023-10-28 02:30:00 38 Jennifer [facility] Respiratory rate 2023-10-28 02:30:00 20 /min [facility] Body weight 2023-10-28 02:30:00 86.183 kg [facility] BMI 2023-10-28 02:30:00 34.75 kg/m2 [facility] Oxygen saturation in Arterial blood by Pulse oximetry 2023-10-28 02:30:00 96 /min [facility] Systolic blood pressure 2023-09-09 02:47:12 116 mm[Hg] [facility] Diastolic blood pressure 2023-09-09 02:47:12 85 mm[Hg] [facility] Heart rate 2023-09-09 02:47:12 78 /min [facility] Body temperature 2023-09-09 02:47:12 36.28 Jennifer [facility] Respiratory rate 2023-09-09 02:47:12 18 /min [facility] Oxygen saturation in Arterial blood by Pulse oximetry 2023-09-09 02:47:12 98 /min [facility] Body height 2023-09-09 00:30:00 157.5 cm [facility] Body weight 2023-09-09 00:30:00 85.276 kg [facility] BMI 2023-09-09 00:30:00 34.39 kg/m2 [facility] Systolic blood pressure 2023-09-07 12:45:00 119 mm[Hg] [facility] Diastolic blood pressure 2023-09-07 12:45:00 83 mm[Hg] [facility] Heart rate 2023-09-07 12:45:00 101 /min [facility] Body temperature 2023-09-07 12:45:00 37.5 Jennifer [facility] Respiratory rate 2023-09-07 12:45:00 18 /min [facility] Body height 2023-09-07 12:45:00 157.5 cm [facility] Body weight 2023-09-07 12:45:00 82.872 kg [facility] BMI 2023-09-07 12:45:00 33.42 kg/m2 [facility] Oxygen saturation in Arterial blood by Pulse oximetry 2023-09-07 12:45:00 99 /min [facility] Systolic blood pressure 2023-09-04 04:00:00 112 mm[Hg] [facility] Diastolic blood pressure 2023-09-04 04:00:00 97 mm[Hg] [facility] Heart rate 2023-09-04 04:00:00 94 /min [facility] Body temperature 2023-09-04 04:00:00 36.89 Jennifer [facility] Oxygen saturation in Arterial blood by Pulse oximetry 2023-09-04 04:00:00 98 /min [facility] Respiratory rate 2023-09-04 03:00:00 17 /min [facility] Body height 2023-09-04 00:54:00 157.5 cm [facility] Body weight 2023-09-04 00:54:00 83.915 kg [facility] BMI 2023-09-04 00:54:00 33.84 kg/m2 [facility] Systolic blood pressure 2023-08-04 04:05:00 139 mm[Hg] [facility] Diastolic blood pressure 2023-08-04 04:05:00 77 mm[Hg] [facility] Heart rate 2023-08-04 04:05:00 104 /min [facility] Body temperature 2023-08-04 04:05:00 36.72 Jennifer [facility] Respiratory rate 2023-08-04 04:05:00 16 /min [facility] Body height 2023-08-04 04:05:00 157.5 cm [facility] Body weight 2023-08-04 04:05:00 85.957 kg [facility] BMI 2023-08-04 04:05:00 34.66 kg/m2 [facility] Oxygen saturation in Arterial blood by Pulse oximetry 2023-08-04 04:05:00 100 /min [facility] Systolic blood pressure 2023-07-26 07:38:00 134 mm[Hg] [facility] Diastolic blood pressure 2023-07-26 07:38:00 95 mm[Hg] [facility] Heart rate 2023-07-26 07:38:00 114 /min [facility] Body temperature 2023-07-26 07:38:00 37.28 Jennifer [facility] Respiratory rate 2023-07-26 07:38:00 18 /min [facility] Body height 2023-07-26 07:38:00 157.5 cm [facility] Body weight 2023-07-26 07:38:00 86.183 kg [facility] BMI 2023-07-26 07:38:00 34.75 kg/m2 [facility] Oxygen saturation in Arterial blood by Pulse oximetry 2023-07-26 07:38:00 99 /min [facility] Systolic blood pressure 2023-07-25 14:52:00 126 mm[Hg] [facility] Diastolic blood pressure 2023-07-25 14:52:00 96 mm[Hg] [facility] Heart rate 2023-07-25 14:52:00 98 /min [facility] Body temperature 2023-07-25 14:52:00 37 Jennifer [facility] Respiratory rate 2023-07-25 14:52:00 16 /min [facility] Oxygen saturation in Arterial blood by Pulse oximetry 2023-07-25 14:52:00 98 /min [facility] Body height 2023-07-25 12:33:00 157.5 cm [facility] Body weight 2023-07-25 12:33:00 86.456 kg [facility] BMI 2023-07-25 12:33:00 34.86 kg/m2 [facility] Systolic blood pressure 2023-07-12 12:34:00 127 mm[Hg] [facility] Diastolic blood pressure 2023-07-12 12:34:00 86 mm[Hg] [facility] Heart rate 2023-07-12 12:34:00 86 /min [facility] Body temperature 2023-07-12 12:34:00 36.72 Jennifer [facility] Respiratory rate 2023-07-12 12:34:00 16 /min [facility] Body height 2023-07-12 12:34:00 157.5 cm [facility] Body weight 2023-07-12 12:34:00 86.183 kg [facility] BMI 2023-07-12 12:34:00 34.75 kg/m2 [facility] Oxygen saturation in Arterial blood by Pulse oximetry 2023-07-12 12:34:00 98 /min [facility] Systolic blood pressure 2023-06-24 10:24:00 118 mm[Hg] [facility] Diastolic blood pressure 2023-06-24 10:24:00 89 mm[Hg] [facility] Heart rate 2023-06-24 10:24:00 95 /min [facility] Body temperature 2023-06-24 10:24:00 36.78 Jennifer [facility] Respiratory rate 2023-06-24 10:24:00 18 /min [facility] Body height 2023-06-24 10:24:00 157.5 cm [facility] Body weight 2023-06-24 10:24:00 89.812 kg [facility] BMI 2023-06-24 10:24:00 36.21 kg/m2 [facility] Oxygen saturation in Arterial blood by Pulse oximetry 2023-06-24 10:24:00 100 /min [facility] Systolic blood pressure 2023-06-18 04:52:00 113 mm[Hg] [facility] Diastolic blood pressure 2023-06-18 04:52:00 82 mm[Hg] [facility] Heart rate 2023-06-18 04:52:00 100 /min [facility] Body temperature 2023-06-18 04:52:00 37.39 Jennifer [facility] Respiratory rate 2023-06-18 04:52:00 18 /min [facility] Body height 2023-06-18 04:52:00 157.5 cm [facility] Body weight 2023-06-18 04:52:00 89.903 kg [facility] BMI 2023-06-18 04:52:00 36.25 kg/m2 [facility] Oxygen saturation in Arterial blood by Pulse oximetry 2023-06-18 04:52:00 100 /min [facility] Systolic blood pressure 2023-06-12 09:00:00 105 mm[Hg] [facility] Diastolic blood pressure 2023-06-12 09:00:00 74 mm[Hg] [facility] Heart rate 2023-06-12 09:00:00 74 /min [facility] Respiratory rate 2023-06-12 09:00:00 16 /min [facility] Oxygen saturation in Arterial blood by Pulse oximetry 2023-06-12 09:00:00 97 /min [facility] Body temperature 2023-06-12 04:09:00 36.89 Jennifer [facility] Body height 2023-06-12 04:09:00 157.5 cm [facility] Body weight 2023-06-12 04:09:00 86.183 kg [facility] BMI 2023-06-12 04:09:00 34.75 kg/m2 [facility] Systolic blood pressure 2023-05-28 08:00:00 123 mm[Hg] [facility] Diastolic blood pressure 2023-05-28 08:00:00 78 mm[Hg] [facility] [facility] Heart rate 2023-05-28 08:00:00 93 /[facility] Arterial blood by Pulse oximetry 2023-05-28 08:00:00 99 /min [facility] Respiratory rate 2023-05-28 06:00:00 18 /min [facility] Body temperature 2023-05-28 05:37:00 35.72 Jennifer [facility] Body height 2023-05-28 05:37:00 157.5 cm [facility] Body weight 2023-05-28 05:37:00 87.136 kg [facility] BMI 2023-05-28 05:37:00 35.14 kg/m2 [facility] Systolic blood pressure 2023-03-07 03:59:00 122 mm[Hg] [facility] Diastolic blood pressure 2023-03-07 03:59:00 77 mm[Hg] [facility] Heart rate 2023-03-07 03:59:00 97 /min Unive [facility] Body temperature 2023-03-07 03:59:00 36.67 Jennifer [facility] Respiratory rate 2023-03-07 03:59:00 18 /min [facility] Body height 2023-03-07 03:59:00 157.5 cm [facility] Body weight 2023-03-07 03:59:00 79.379 kg [facility] BMI 2023-03-07 03:59:00 32.01 kg/m2 [facility] Oxygen saturation in Arterial blood by Pulse oximetry 2023-03-07 03:59:00 99 /min [facility] Heart rate 2023-02-02 07:48:00 73 /min [facility] Oxygen saturation in Arterial blood by Pulse oximetry 2023-02-02 07:48:00 98 /min [facility] Systolic blood pressure 2023-02-02 07:00:00 122 mm[Hg] [facility] Diastolic blood pressure 2023-02-02 07:00:00 79 mm[Hg] [facility] Respiratory rate 2023-02-02 07:00:00 15 /min [facility] Body temperature 2023-02-02 06:07:00 36.94 Jennifer [facility] Body height 2023-02-02 06:07:00 157.5 cm [facility] Body weight 2023-02-02 06:07:00 79.379 kg [facility] BMI 2023-02-02 06:07:00 32.01 kg/m2 [facility] Systolic blood pressure 2022-10-24 21:42:00 114 mm[Hg] [facility] Diastolic blood pressure 2022-10-24 21:42:00 74 mm[Hg] [facility] Heart rate 2022-10-24 21:42:00 72 /min Unive [facility] Respiratory rate 2022-10-24 21:42:00 16 /min [facility] Oxygen saturation in Arterial blood by Pulse oximetry 2022-10-24 21:42:00 99 /min [facility] Body temperature 2022-10-24 18:03:00 37.33 Jennifer [facility] Body height 2022-10-24 18:03:00 157.5 cm [facility] Body weight 2022-10-24 18:03:00 79.379 kg [facility] BMI 2022-10-24 18:03:00 32.01 kg/m2 [facility] Systolic blood pressure 2022-07-21 12:46:00 115 mm[Hg] [facility] Diastolic blood pressure 2022-07-21 12:46:00 83 mm[Hg] [facility] Heart rate 2022-07-21 12:46:00 82 /min Unive [facility] Body temperature 2022-07-21 12:46:00 36.89 Jennifer [facility] Respiratory rate 2022-07-21 12:46:00 18 /min [facility] Body weight 2022-07-21 12:46:00 78.019 kg [facility] BMI 2022-07-21 12:46:00 31.46 kg/m2 [facility] Oxygen saturation in Arterial blood by Pulse oximetry 2022-07-21 12:46:00 99 /min [facility] Systolic blood pressure 2022-05-19 22:00:00 128 mm[Hg] [facility] Diastolic blood pressure 2022-05-19 22:00:00 68 mm[Hg] [facility] Heart rate 2022-05-19 22:00:00 78 /min Unive [facility] Body temperature 2022-05-19 22:00:00 36.78 Jennifer [facility] Respiratory rate 2022-05-19 22:00:00 18 /min [facility] Oxygen saturation in Arterial blood by Pulse oximetry 2022-05-19 22:00:00 100 /min [facility] Body height 2022-05-19 20:31:00 157.5 cm [facility] Body weight 2022-05-19 20:31:00 78.019 kg [facility] BMI 2022-05-19 20:31:00 31.46 kg/m2 [facility] Heart rate 2022-05-13 08:30:00 83 /min Unive [facility] Oxygen saturation in Arterial blood by Pulse oximetry 2022-05-13 08:30:00 99 /min [facility] Systolic blood pressure 2022-05-13 08:00:00 111 mm[Hg] [facility] Diastolic blood pressure 2022-05-13 08:00:00 80 mm[Hg] [facility] Body temperature 2022-05-13 07:05:00 37 Jennifer [facility] Respiratory rate 2022-05-13 07:05:00 18 /min [facility] Body height 2022-05-13 07:05:00 157.5 cm [facility] Body weight 2022-05-13 07:05:00 76.658 kg [facility] BMI 2022-05-13 07:05:00 30.91 kg/m2 [facility] Systolic blood pressure 2022-04-01 21:47:00 124 mm[Hg] [facility] Diastolic blood pressure 2022-04-01 21:47:00 84 mm[Hg] [facility] Heart rate 2022-04-01 21:47:00 89 /min [facility] Body temperature 2022-04-01 21:47:00 37.22 Jennifer [facility] Respiratory rate 2022-04-01 21:47:00 22 /min [facility] Body weight 2022-04-01 21:47:00 77.111 kg [facility] BMI 2022-04-01 21:47:00 29.18 kg/m2 [facility] Oxygen saturation in Arterial blood by Pulse oximetry 2022-04-01 21:47:00 99 /min [facility] Systolic blood pressure 2021-10-25 19:42:00 103 mm[Hg] [facility] Diastolic blood pressure 2021-10-25 19:42:00 74 mm[Hg] [facility] Heart rate 2021-10-25 19:42:00 94 /min [facility] Body temperature 2021-10-25 19:42:00 37.67 Jennifer [facility] Respiratory rate 2021-10-25 19:42:00 18 /min [facility] Body weight 2021-10-25 19:42:00 70.761 [facility] BMI 2021-10-25 19:42:00 26.78 kg/m2 [facility] Oxygen saturation in Arterial blood by Pulse oximetry 2021-10-25 19:42:00 99 /min [facility] BP Systolic 2024-12-19 08:33:00 128 mm[Hg] Step hen F Edilson BP Diastolic 2024-12-19 08:33:00 74 mm[Hg] Osito phen F Edilson Weight Measured 2024-12-19 08:33:00 184.20 pounds Darryl F Edilson Height Measured 2024-12-19 08:33:00 63.00 inches Darryl F [place] Body Temperature 2024-12-19 08:33:00 98.10 degrees Darryl [...] Measured 2024-08-25 14:45:00 63.00 inches Darryl F E[place] Body Temperature 2024-08-25 14:45:00 98.50 degrees Darryl [...] 2023-04-23 08:58:00 115 mm[Hg] Step hen F Deilson BP Diastolic 2023-04-23 08:58:00 82 mm[Hg] Osito [...] BP Diastolic 2022-09-25 10:10:00 80 mm[Hg] Osito bojorquez F Edilson Weight Measured 2022-09-25 10:10:00 174.00 [...] /min Respiratory Rate 2022-05-19 08:57:00 16.00 /min Weight Measured 2021-10-28 13:20:00 161.80 pounds Height Measured 2021-10-28 13:20:00 63.00 inches Body Temperature 2021-10-28 13:20:00 97.50 degrees Heart Rate 2021-10-28 13:20:00 95.00 /min Respiratory Rate 2021-10-28 13:20:00 BP Systolic 2021-10-28 13:20:00 112 mm[Hg] BP Diastolic 2021-10-28 13:20:00 76 mm[Hg] BP Systolic 2021-10-20 11:02:00 93 mm[Hg] BP [...] Date / Time Performed Performing Clinician Source GARDASIL 9 (HPV 9V) VACCINE 2025-05-08 13:05:30 Viry De Anda [facility] CT ABDOMEN PELVIS W CONTRAST 2025-04-14 14:52:00 Hermilo Ricks [facility] URINALYSIS 2025-04-14 14:33:00 [facility] LIPASE 2025-04-14 13:43:00 Hermilo Ricks [facility] COMP. METABOLIC PANEL ([id number]) 2025-04-14 13:43:00 Hermilo Ricks [facility] CBC WITH DIFF 2025-04-14 13:43:00 Hermilo Ricks [facility] US OVARY TORSION 2025-03-09 05:02:45 Doni Marie [facility] POCT TEST 2025-03-09 03:04:00 Ryan Marie [facility] LIPASE 2025-03-09 03:03:00 Doni [facility] COMP. METABOLIC PANEL ([id number]) 2025-03-09 03:03:00 Doni Marie [facility] CBC WITH DIFF 2025-03-09 03:03:00 Doni Marie [facility] URINALYSIS 2025-03-09 03:03:00 Doni [facility] GARDASIL 9 (HPV 9V) VACCINE 2025-02-04 19:21:47 Carolyn Miller [facility] POCT TEST 2025-02-04 00:00:00 Kaye House [facility] POCT GLUCOSE(AGE >30DAYS) 2025-01-27 18:48:[facility] 2025-01-27 18:45:00 [facility]EL[facility] W CONTRAST 2025-01-17 08:40:02 Selene Parra [facility] POCT TEST 2025-01-17 07:32:00 Selene Parra [facility] LIPASE 2025-01-17 07:29:00 Selene Parra [facility] COMP. METABOLIC PANEL ([id number]) 2025-01-17 07:29:00 Selene Parra [facility] CBC WITH DIFF 2025-01-17 07:29:00 Selene Parra [facility] URINALYSIS 2025-01-17 07:29:00 Selene Parra [facility] CT ABDOMEN PELVIS W CONTRAST 2025-01-05 12:26:37 Singer [facility] POCT TEST 2025-01-05 11:58:00 Jeanine Ricks [facility] URINALYSIS 2025-01-05 10:42:00 Singer [facility] XR CHEST 1 VW 2025-01-05 10:39:55 Singer [facility] COMP. METABOLIC PANEL ([id number]) 2025-01-05 10:16:00 Singer [facility] CBC WITH DIFF 2025-01-05 10:[facility]B RSV COVID NAAT 2025-01-05 10:16:00 Singer [facility] [id number] Colposcopy Entire Vagina W/cervix If Present 2024-12-19 00:00:00 Darryl Waggoner POCT TEST 2024-12-18 06:15:00 Martha Terry [facility] COMP. METABOLIC PANEL ([id number]) 2024-12-18 06:13:00 Gaby Terry [facility] CBC WITH DIFF 2024-12-18 06:13:00 [facility] 2024-12-18 06:13:00 [facility]BDOMEN ACUTE SERIES 2024-07-25 14:37:21 Do jasmina Marie [facility] POCT TEST 2024-07-25 13:23:00 Ryan Marie [facility] LIPASE 2024-07-25 13:21:00 Doni Marie [facility] COMP. METABOLIC PANEL ([id number]) 2024-07-25 13:21:00 Marie, [facility] CBC WITH DIFF 2024-07-25 13:21:00 Frank [facility] URINALYSIS 2024-07-25 13:21:00 Marie [facility] URINE DRUG (IMMUNOASSAY) - COMPREHENSIVE DRUG SCREEN W/O REFLEX 2024-07-25 13:21:[address] [facility] CT ABDOMEN PELVIS W CONTRAST 2024-07-04 08:54:02 Selene Parra [facility] POCT TEST 2024-07-04 07:36:00 Selene Parra [facility] LIPASE 2024-07-04 07:33:00 [facility] METABOLIC PANEL ([id number]) 2024-07-04 07:33:00 Selene Parra [facility] CBC WITH DIFF 2024-07-04 07:33:00 Selene Parra [facility] URINALYSIS 2024-07-04 07:33:00 Selene Parra [facility] CT ABDOMEN PELVIS W CONTRAST 2024-03-12 09:15:57 Selene Parra [facility] LIPASE 2024-03-12 09:01:00 Selene Parra [facility] COMP. METABOLIC PANEL ([id number]) 2024-03-12 09:01:00 Selene Parra [facility] CBC WITH DIFF 2024-03-12 09:01:00 Selene Parra [facility] EBV-MONONUCLEOSIS SCREEN 2024-02-03 10:22:00 Funmilayo Parra [facility] CT ABDOMEN PELVIS W CONTRAST 2024-02-03 10:08:28 Selene Parra [facility] POCT TEST 2024-02-03 09:09:00 Selene Parra [facility] LIPASE 2024-02-03 09:06:00 Selene Parra [facility] COMP. METABOLIC PANEL ([id number]) 2024-02-03 09:06:00 Selene Parra [facility] CBC WITH DIFF 2024-02-03 09:06:00 Selene Parra [facility] URINALYSIS 2024-02-03 09:06:00 Selene Parra [facility] RAPID STREP SCREEN FOR GROUP A 2024-02-03 09:06:00 Selene Parra [facility] ASSIGNMENT OF BENEFITS 2024-01-02 04:22:29 Docto r Unassigned, [place] [facility] RAPID STREP SCREEN FOR GROUP A 2024-01-02 04:20:00 Doni Marie [facility] RAPID INFLUENZA A/B 2024-01-02 03:50:00 Ryan Marie [facility] COVID-19 (ID NOW RAPID TESTING) 2024-01-02 03:50:00 Doni Marie [facility] CONSENT/REFUSAL FOR DIAGNOSIS AND TREATMENT 2024-01-02 03:16:29 Doctor Unassigned, [place] [facility] CONSENT/REFUSAL FOR DIAGNOSIS AND TREATMENT 2023-12-26 08:43:59 Doctor Unassigned, [place] [facility] [id number] Colposcopy Cervix Endocervical Curettage 2023-12-17 00:00:00 Darryl Waggoner US OVARY TORSION 2023-11-20 16:01:25 Doni Marie [facility] CT ABDOMEN PELVIS W CONTRAST 2023-11-20 14:40:23 Doni Marie [facility] COMP. METABOLIC PANEL ([id number]) 2023-11-20 13:27:00 Doni Marie [facility] CBC WITH DIFF 2023-11-20 13:27:00 Doni Marie [facility] URINALYSIS 2023-11-20 [facility]-11-20 13:26:00 Ryan Marie [facility] CONSENT/REFUSAL FOR DIAGNOSIS AND TREATMENT 2023-11-20 12:37:06 Doctor Unassigned, [place] [facility] CONSENT/REFUSAL FOR DIAGNOSIS AND TREATMENT 2023-11-12 06:04:20 Doctor Unassigned, [place] [facility] CONSENT/REFUSAL FOR DIAGNOSIS AND TREATMENT 2023-10-28 02:10:42 Doctor Unassigned, [place] [facility] URINALYSIS 2023-09-09 02:35:00 Danie Ontiveros [facility] XR KUB 2023-09-09 01:28:00 Danie Ontiveros U [facility] CT LUMBAR SPINE WO CONTRAST 2023-09-09 01:02:05 Danie Ontiveros [facility] CONSENT/REFUSAL FOR DIAGNOSIS AND TREATMENT 2023-09-09 00:05:52 Doctor Unassigned, [place] [facility] POCT TEST 2023-09-07 13:28:00 Juli Srivastava ra [facility] URINALYSIS 2023-09-07 13:27:00 Chayo Srivastava Un [facility] CONSENT/REFUSAL FOR DIAGNOSIS AND TREATMENT 2023-09-07 12:42:21 Doctor Unassigned, [place] [facility] COMP. METABOLIC PANEL ([id number]) 2023-09-04 02:29:00 Selene Parra [facility] CBC WITH DIFF 2023-09-04 02:29:00 Selene Parra [facility] RAPID INFLUENZA A/B 2023-09-04 02:26:00 Selene Parra [facility] COVID-19 (ID NOW RAPID TESTING) 2023-09-04 02:26:00 Selene Parra [facility] ASSIGNMENT OF BENEFITS 2023-09-04 02:07:25 Docto r Unassigned, [place] [facility] CONSENT/REFUSAL FOR DIAGNOSIS AND TREATMENT 2023-09-04 00:46:16 Doctor Unassigned, [place] [facility] CONSENT/REFUSAL FOR DIAGNOSIS AND TREATMENT 2023-08-04 03:55:32 Doctor Unassigned, [place] [facility] URINALYSIS 2023-07-26 08:52:00 Memo Resendiz [facility] URINALYSIS 2023-07-26 08:20:00 Memo Resendiz [facility] ASSIGNMENT OF BENEFITS 2023-07-26 08:05:43 Docto r Unassigned, [place] [facility] CONSENT/REFUSAL FOR DIAGNOSIS AND TREATMENT 2023-07-26 07:33:52 Doctor Unassigned, [place] [facility] RAPID STREP SCREEN FOR GROUP A 2023-07-25 13:40:00 Danii Arriaga [facility] RAPID INFLUENZA A/B 2023-07-25 13:40:00 Minal Arriaga [facility] COVID-19 (ID NOW RAPID TESTING) 2023-07-25 13:40:00 Danii Arriaga [facility] XR CHEST 2 VW 2023-07-25 13:26:06 Danii Arriaga [facility] ASSIGNMENT OF BENEFITS 2023-07-25 13:17:29 Docto r Unassigned, [place] [facility] CONSENT/REFUSAL FOR DIAGNOSIS AND TREATMENT 2023-07-25 12:29:51 Doctor Unassigned, [place] [facility] XR CHEST 2 VW 2023-07-12 13:13:00 Doni Marie [facility] POCT TEST 2023-07-12 12:56:00 Ryan Marie [facility] CONSENT/REFUSAL FOR DIAGNOSIS AND TREATMENT 2023-07-12 12:27:58 Doctor Unassigned, [place] [facility] [id number] Colposcopy Cervix Uppr/adjcnt Vagina W/cervix Bx 2023-06-26 00:00:00 Darryl Waggoner [id number] Endometrial Bx W/wo Endocervix Bx W/o Dilat Spx 2023-06-26 00:00:00 Darryl Waggoner CONSENT/REFUSAL FOR DIAGNOSIS AND TREATMENT 2023-06-24 10:15:34 Doctor Unassigned, [place] [facility] RAPID INFLUENZA A/B 2023-06-18 05:03:00 Michelle Terry [facility] RAPID RSV 2023-06-18 05:03:00 Michelle Terry [facility] COVID-19 (ID NOW RAPID TESTING) 2023-06-18 05:03:00 Michelle Terry [facility] CONSENT/REFUSAL FOR DIAGNOSIS AND TREATMENT 2023-06-18 04:46:39 Doctor Unassigned, [place] [facility] US OVARY TORSION 2023-06-12 08:14:06 [facility] 2023-06-12 05:07:00 Raven Lieberman [facility] COMP. METABOLIC PANEL ([id number]) 2023-06-12 05:02:00 Raven Lieberman [facility] CBC WITH DIFF 2023-06-12 05:02:00 [facility] URINALYSIS 2023-06-12 05:02:00 Raven Lieberman [facility] NOTICE OF PRIVACY PRACTICES 2023-06-12 04:10:01 Doctor Unassigned, [place] [facility] CONSENT/REFUSAL FOR DIAGNOSIS AND TREATMENT 2023-06-12 04:06:29 Doctor Unassigned, [place] [facility] CT ABDOMEN PELVIS W CONTRAST 2023-05-28 07:44:47 Raven Lieberman [facility] POCT TEST 2023-05-28 06:40:00 Raven Lieberman [facility] COMP. METABOLIC PANEL ([id number]) 2023-05-28 06:34:00 Raven Lieberman [facility] CBC WITH DIFF 2023-05-28 06:34:00 [facility] URINALYSIS 2023-05-28 06:34:00 Raven Lieberman [facility] CONSENT/REFUSAL FOR DIAGNOSIS AND TREATMENT 2023-05-28 05:25:17 Doctor Unassigned, [place] [facility] [id number] Removal Impacted Cerumen Using Irrigation/lavage, Unilateral 2023-04-30 00:00:00 Darryl Waggoner ASSIGNMENT OF BENEFITS 2023-03-07 04:54:51 Docto r Unassigned, [place] [facility] RAPID STREP SCREEN FOR GROUP A 2023-03-07 03:52:00 Hermilo Ricks [facility] CONSENT/REFUSAL FOR DIAGNOSIS AND TREATMENT 2023-03-07 02:58:48 Doctor Unassigned, [place] [facility] BASIC METABOLIC PANEL (NA, K, CL, CO2, GLUCOSE, BUN, CREATININE, CA) 2023-02-02 06:41:00 Selene Parra [facility] CBC WITH DIFF 2023-02-02 06:41:00 Selene Parra [facility] POCT TEST 2023-02-02 06:17:00 Selene Parra [facility] NOTICE OF PRIVACY PRACTICES 2023-02-02 06:00:34 Doctor Unassigned, [place] [facility] CONSENT/REFUSAL FOR DIAGNOSIS AND TREATMENT 2023-02-02 05:59:54 Doctor Unassigned, [place] [facility] CT ABDOMEN PELVIS W CONTRAST 2022-10-24 20:00:18 Suraj Scott [facility] US OVARY TORSION 2022-10-24 19:43:53 Suraj Scott [facility] LIPASE 2022-10-24 18:58:00 Suraj Scott [facility] COMP. METABOLIC PANEL ([id number]) 2022-10-24 18:58:00 Suraj Scott [facility] CBC WITH DIFF 2022-10-24 18:58:00 [facility] 2022-10-24 18:58:00 Suraj Scott [facility] POCT TEST 2022-10-24 18:58:00 Odessa Scott [facility] CBC WITH DIFF 2022-07-21 13:07:00 Hermilo Ricks [facility] POCT TEST 2022-07-21 12:55:00 Jeanine Ricks [facility] URINALYSIS 2022-07-21 12:52[facility] FOR [facility]AGNOSIS AND TREATMENT 2022-07-21 12:44:40 Doctor Unassigned, [place] [facility] CT ABDOMEN PELVIS W CONTRAST 2022-05-19 21:32:53 Cat Rutledge [facility] LIPASE 2022-05-19 20:49:00 [facility] COMP. METABOLIC PANEL ([id number]) 2022-05-19 20:49:00 Cat Rutledge [facility] CBC WITH DIFF 2022-05-19 20:49:00 Cat Rutledge [facility] URINALYSIS 2022-05-19 20:49:00 Cat Rutledge [facility] POCT TEST 2022-05-19 20:49:00 Paxton Rutledge [facility] URINE DRUG (IMMUNOASSAY) - COMPREHENSIVE DRUG SCREEN W/O REFLEX 2022-05-19 20:49:00 Cat Rutledge [facility] CONSENT/REFUSAL FOR DIAGNOSIS AND TREATMENT 2022-05-19 20:16:10 Doctor Unassigned, [place] [facility] POCT TEST 2022-05-13 07:37:00 Selene Parra [facility] LIPASE 2022-05-13 07:32:00 Selene Parra [facility] COMP. METABOLIC PANEL ([id number]) 2022-05-13 07:32:00 Selene Parra [facility] CBC WITH DIFF 2022-05-13 07:32:00 Selene Parra [facility] URINALYSIS 2022-05-13 07:32:00 Selene Parra [facility] CONSENT/REFUSAL FOR DIAGNOSIS AND TREATMENT 2022-05-13 06:55:55 Doctor Unassigned, [place] [facility] XR ANKLE <3 VW RIGHT 2022-04-01 22:28:50 Deny Rg [facility] URINALYSIS 2022-04-01 22:21:00 Christy Rg [facility] POCT TEST 2022-04-01 22:19:00 Christy Rg [facility] CONSENT/REFUSAL FOR DIAGNOSIS AND TREATMENT 2022-04-01 21:40:47 Doctor Unassigned, [place] [facility] [facility] POCT TEST 2021-10-25 19:54:00 Lisa Tran [facility] URINALYSIS 2021-10-25 19:53:00 Lisa Tran [facility] CONSENT/REFUSAL FOR DIAGNOSIS AND TREATMENT 2021-10-25 19:34:46 Doctor Unassigned, [place] [facility] NOTICE OF PRIVACY PRACTICES 2021-10-25 19:34:06 Doctor Unassigned, [place] [facility] Plan of Care Planned Activity Planned Date Details Comments Source Goal Plan of Care Note [code = 49009-4] Goal Plan of Care Note [code = 63461-5] Goal Plan of Care Note [code = 13229-8] Goal Plan of Care Note [code = 20322-5] Goal Plan of Care Note [code = 86342-8] Goal Plan of Care Note [code = 14700-3] Goal Plan of Care Note [code = 71574-0] Goal Plan of Care Note [code = 64276-3] Goal Plan of Care Note [code = 69156-2] Goal Plan of Care Note [code = 24630-7] Goal Plan of Care Note [code = 06412-1] Goal Plan of Care Note [code = 26570-1] Goal Plan of Care Note [code = 49811-4] Goal Plan of Care Note [code = 00773-4] Goal Plan of Care Note [code = 62397-0] Goal Plan of Care Note [code = 56780-0] Goal Plan of Care Note [code = 87546-2] Goal Plan of Care Note [code = 11548-8] Goal Plan of Care Note [code = 75577-0] Goal Plan of Care Note [code = 08572-7] Goal Plan of Care Note [code = 80526-2] Goal Plan of Care Note [code = 71556-9] Goal Plan of Care Note [code = 15734-9] Goal Plan of Care Note [code = 30536-0] Goal Plan of Care Note [code = 25126-2] Encounters Start Date/Time End Date/Time Encounter Type Admission Type Attending Clinicians Care Facility Care Department Encounter ID Source 2025-05-08 08:15:00 2025-05-08 08:15:00 [facility] Lesa Felipe Nurse, Dat Rmchp Rgv Cprit Obgyn [facility] 1.2.840.114 350.1.13.10 4.2.7.2.686 [id number] [facility] 2025-04-14 08:10:00 2025-04-14 11:33:00 Emergency X HERMILO RICKS PHILLIP [facility] ERT [id number] [facility] 2025-03-08 21:35:00 2025-03-09 02:46:00 Emergency X DONI MARIE DONNELL [facility] ERT [id number] [facility] 2025-02-04 14:30:00 2025-02-04 16:26:04 Office Visit Pgy4 Kaye House Pgy4 [facility] [place] [facility] 1.840.114 350.1.13.10 4.2.7.2.686 [id number] [facility] 2025-01-27 12:28:00 2025-01-27 13:54:00 Emergency X PATRICE HOLLAND [facility] ERT [id number] [facility] 2025-01-27 12:28:00 2025-01-27 13:54:00 Emergency Patrice Holland [facility] 1.840.114 350.1.13.10 4.2.7.2.686 [id number] [id number] [facility] 2025-01-19 00:00:00 2025-01-21 08:15:33 Telephone Pgy4 Pgy4 [facility] ([facility] 1.2840.114 350.1.13.10 4.2.7.2.686 [id number] [facility] 2025-01-17 02:31:00 2025-01-17 04:24:00 Emergency X SELENE PARRA WAKILI [facility] ERT [id number] [facility] 2025-01-17 02:31:00 2025-01-17 04:24:00 Emergency Selene Parra [facility] 1.2.840.114 350.1.13.10 4.2.7.2.686 [id number] [id number] [facility] 2025-01-13 00:00:00 2025-01-16 10:06:01 Telephone Pgy4 Pgy4 [facility] [place] ([facility]) 1.2.840.114 350.1.13.10 4.2.7.2.686 [id number] [facility] 2025-01-05 05:08:00 2025-01-05 09:45:00 Emergency X DONI MARIE DONNELL [facility] ERT [id number] [facility] 2025-01-05 05:08:00 2025-01-05 09:45:00 Emergency Hermilo Ricks Donnell [facility] 1.2840.114 350.1.13.10 4.2.7.2.686 [id number] [facility] 2024-12-19 08:24:26 2024-12-19 08:24:26 Outpatient SFA S[facility] [id number] Darryl F Edilson 2024-12-18 15:04:52 2024-12-18 15:04:52 Outpatient SFA SFA [id number] Darryl Tyron [place] 2024-12-17 23:56:00 2024-12-18 01:23:00 Emergency X GABY TERRY [facility] ERT [id number] [facility] 2024-12-17 23:56:00 2024-12-18 01:23:00 Emergency AdeGaby gray [facility] 1.2.840.114 350.1.13.10 4.2.7.2.686 [id number] [id number] [facility] 2024-12-18 00:00:00 2024-12-18 00:00:00 Outpatient Visit SFA [id number] Darryl Waggoner 2024-12-12 11:22:49 2024-12-12 11:22:49 Outpatient SFA [facility] [id number] Darryl Ackerman [place] 2024-11-28 09:13:53 2024-11-28 09:13:53 Outpatient SFA [facility] [id number] Darryl Ackerman [place] 2024-11-28 00:00:00 2024-11-28 00:00:00 Outpatient Visit SFA [id number] Darryl Ackerman [place] 2024-11-27 09:21:53 2024-11-27 09:21:53 Outpatient SFA [facility] [id number] Darryl Ackerman [place] 2024-11-27 00:00:00 2024-11-27 00:00:00 Outpatient Visit SFA [id number] Darryl Ackerman [place] 2024-11-18 21:05:00 2024-11-18 22:48:00 Emergency X SELENE PARRA WAKILI [facility] ERT [id number] [facility] 2024-11-18 21:05:00 2024-11-18 22:48:[address] [facility] 1.2.840.114 350.1.13.10 4.2.7.2.686 [id number] [id number] [facility] 2024-11-08 22:41:00 2024-11-09 00:01:00 Emergency X CHRISTY RG PAMALA [facility] ERT [id number] [facility] 2024-11-08 22:41:00 2024-11-09 00:01:00 Emergency Christy Rg [facility] 1.2.840.114 350.1.13.10 4.2.7.2.686 [id number] [facility] 2024-10-22 09:57:20 2024-10-22 09:57:20 Outpatient SFA [facility] [id number] Darryl Ackerman [place] 2024-10-22 00:00:00 2024-10-22 00:00:00 Outpatient Visit SFA [id number] Darryl Ackerman [place] 2024-08-25 14:31:29 2024-08-25 14:31:29 Outpatient SFA [facility] [id number] Darryl Ackerman [place] 2024-08-25 00:00:00 2024-08-25 00:00:00 Outpatient Visit [facility] [id number] Darryl Ackerman [place] 2024-07-25 07:55:00 2024-07-25 10:46:00 Emergency X DONI MARIE DONNELL [facility] ERT [id number] [facility] 2024-07-25 07:55:00 2024-07-25 10:46:00 Emergency Doni Marie [facility] 1.2.840.114 350.1.13.10 4.2.7.2.686 [id number] [facility] 2024-07-09 15:24:23 2024-07-09 15:24:23 Outpatient SFA [facility] [id number] Darryl Ackerman [place] 2024-07-09 00:00:00 2024-07-09 00:00:00 Outpatient Visit SFA [id number] Darryl Ackerman [place] 2024-07-04 02:23:00 2024-07-04 06:07:00 Emergency X SELENE PARRA WAKILI [facility] ERT [id number] [facility] 2024-07-04 02:23:00 2024-07-04 06:07:00 Emergency Selene Parra [facility] 1.2.840.114 350.1.13.10 4.2.7.2.686 [id number] [facility] 2024-03-18 13:39:14 2024-03-18 13:39:14 Outpatient SFA [facility] [id number] Darryl Waggoner 2024-03-18 00:00:00 2024-03-18 00:00:00 Outpatient Visit [facility] [id number] Darryl Waggoner 2024-03-12 02:06:00 2024-03-12 06:07:00 Emergency X SELENE PARRA [facility] ERT [id number] [facility] 2024-03-12 02:06:00 2024-03-12 06:07:00 Emergency Selene Parra [facility] 1.2.840.114 350.1.13.10 4.2.7.2.686 [id number] [facility] 2024-03-06 11:34:36 2024-03-06 11:34:36 Outpatient SFA [facility] [id number] Darryl Waggoner 2024-03-06 00:00:00 2024-03-06 00:00:00 Outpatient Visit [facility] [id number] Darryl Waggoner 2024-02-03 03:57:00 2024-02-03 07:11:00 Emergency Selene Parra [facility] 1.2.840.114 350.1.13.10 4.2.7.2.686 [id number] [facility] 2024-01-01 22:28:00 2024-01-02 00:44:00 Emergency X DONI MARIE DONNELL [facility] ERT [id number] [facility] 2024-01-01 22:28:00 2024-01-02 00:44:00 Emergency Doni Marie [facility] 1.2.840.114 350.1.13.10 4.2.7.2.686 [id number] [facility] 2023-12-31 15:24:49 2023-12-31 15:24:49 Outpatient SFA [facility] [id number] Darryl Waggoner 2023-12-26 03:53:00 2023-12-26 05:24:00 Emergency X ANTONIETTABIJANDUSTY JAMESJOSE A [facility] ERT [id number] [facility] 2023-12-26 03:53:00 2023-12-26 05:24:00 Emergency Krysten Parraenrique Mcrae [facility] 1.2.840.114 350.1.13.10 4.2.7.2.686 [id number] [id number] [facility] 2023-12-17 08:09:17 2023-12-17 08:09:17 Outpatient SFA [facility] [id number] Darryl Waggoner 2023-11-20 06:45:00 2023-11-20 10:52:00 Emergency X DONI MARIE [facility] ERT [id number] [facility] 2023-11-20 06:45:00 2023-11-20 10:52:00 Emergency Doni Marie [facility] 1.2.840.114 350.1.13.10 4.2.7.2.686 [id number] [facility] 2023-11-14 13:08:33 2023-11-14 13:08:33 Outpatient SFA [facility] [id number] Darryl Waggoner 2023-11-12 00:13:00 2023-11-12 01:10:00 Emergency X CHAYO SRIVASTAVA [facility] ERT [id number] [facility] 2023-11-12 00:13:00 2023-11-12 01:10:00 Emergency Atif Chayo Perez [facility] 1.2.840.114 350.1.13.10 4.2.7.2.686 [id number] [facility] 2023-10-27 20:33:00 2023-10-27 20:58:00 Emergency X RUSTY, Kavita [facility] ERT [id number] [facility] 2023-10-27 20:33:00 2023-10-27 20:58:00 Emergency Rusty Kavita Rowe [facility] 1.2.840.114 350.1.13.10 4.2.7.2.686 [id number] [facility] 2023-09-17 09:14:32 2023-09-17 09:14:32 Outpatient [facility] [id number] Darryl Waggoner 2023-09-08 18:32:00 2023-09-08 21:46:00 Emergency X CHRISTY RG [facility] ERT [id number] [facility] 2023-09-08 18:32:00 2023-09-08 21:46:00 Emergency Danie Ontiveros Pamala G [facility] 1.2.840.114 350.1.13.10 4.2.7.2.686 [id number] [facility] 2023-09-07 06:47:00 2023-09-07 08:22:00 Emergency X ATIFJULIRA [facility] ERT [id number] [facility] 2023-09-07 06:47:00 2023-09-07 08:22:00 Emergency Atif Chayo Perez [facility] 1.2.840.114 350.1.13.10 4.2.7.2.686 [id number] [facility] 2023-09-03 18:57:00 2023-09-03 22:03:00 Emergency X SELENE PARRA [facility] ERT [id number] [facility] 2023-09-03 18:57:00 2023-09-03 22:03:00 Emergency Selene Parra [facility] 1.2.840.114 350.1.13.10 4.2.7.2.686 [id number] [facility] 2023-08-28 16:44:07 2023-08-28 16:44:07 Outpatient SFA [facility] [id number] Darryl Waggoner 2023-08-03 23:07:00 2023-08-04 01:08:00 Emergency X Kavita OJEDA [facility] ERT [id number] [facility] 2023-08-03 23:07:00 2023-08-04 01:08:00 Emergency Kavita Ojeda Soledad [facility] 1.2.840.114 350.1.13.10 4.2.7.2.686 [id number] [facility] 2023-07-26 02:41:00 2023-07-26 04:25:00 Emergency X MEMO RESENDIZ [facility] ERT [id number] [facility] 2023-07-26 02:41:00 2023-07-26 04:25:00 Emergency AstridMemo [facility] 1.2.840.114 350.1.13.10 4.2.7.2.686 [id number] [facility] 2023-07-25 07:36:00 2023-07-25 10:13:00 Emergency X DANII ARRIAGA [facility] ERT [id number] [facility] 2023-07-25 07:36:00 2023-07-25 10:13:00 Emergency Schoenstein Rose Roxanne [facility] 1.2.840.114 350.1.13.10 4.2.7.2.686 [id number] [id number] [facility] 2023-07-24 08:14:55 2023-07-24 08:14:55 Outpatient [facility] [id number] Darryl Waggoner 2023-07-12 07:35:00 2023-07-12 09:00:00 Emergency X DONI MARIE [facility] ERT [id number] [facility] 2023-07-12 07:35:00 2023-07-12 09:00:00 Emergency Doni Marie [facility] 1.2840.114 350.1.13.10 4.2.7.2.686 [id number] [facility] 2023-07-02 13:54:28 2023-07-02 13:54:28 Outpatient [facility] [id number] Darryl Waggoner 2023-06-26 13:20:40 2023-06-26 13:20:40 Outpatient [facility] [id number] Darryl Waggoner 2023-06-24 05:33:00 2023-06-24 06:50:00 Emergency X SELENE PARRA [facility] ERT [id number] [facility] 2023-06-24 05:33:00 2023-06-24 06:50:00 Emergency Selene Parra [facility] 1.2840.114 350.1.13.10 4.2.7.2.686 [id number] [facility] 2023-06-20 16:08:31 2023-06-20 16:08:31 Outpatient SFA [facility] [id number] Darryl Waggoner 2023-06-17 23:54:00 2023-06-18 01:35:00 Emergency X MICHELLE TERRY [facility] ERT [id number] [facility] 2023-06-17 23:54:00 2023-06-18 01:35:00 Emergency Michelle Terry [facility] 1.2.840.114 350.1.13.10 4.2.7.2.686 [id number] [facility] 2023-06-16 10:56:55 2023-06-16 10:56:55 Outpatient [facility] [id number] Darryl Waggoner 2023-06-14 13:35:05 2023-06-14 13:35:05 Outpatient [facility] [id number] Darryl Waggoner 2023-06-12 11:11:07 2023-06-12 11:11:07 Outpatient [facility] [id number] Darryl Waggoner 2023-06-11 23:25:00 2023-06-12 04:49:00 Emergency X LIEBERMAN RAVEN [facility] ERT [id number] [facility] 2023-06-11 23:25:00 2023-06-12 04:49:00 Emergency Luisana Raven [facility] 1.2.840.114 350.1.13.10 4.2.7.2.686 [id number] [facility] 2023-06-05 11:34:51 2023-06-05 11:34:51 Outpatient [facility] [id number] Darryl Ackerman [place] 2023-05-28 08:05:43 2023-05-28 08:05:43 Outpatient [facility] [id number] Darryl Ackerman [place] 2023-05-28 00:40:00 2023-05-28 04:06:00 Emergency X LIEBERMANRAVEN [facility] ERT [id number] [facility] 2023-05-28 00:40:00 2023-05-28 04:06:00 Emergency Raven Lieberman [facility] 1.2.840.114 350.1.13.10 4.2.7.2.686 [id number] [id number] [facility] 2023-05-28 00:00:00 2023-05-28 00:00:00 Orders Only Doctor Unassigned, [place] [facility] 1.2.840.114 350.1.13.10 4.2.7.2.686 [id number] [facility] 2023-04-30 13:49:49 2023-04-30 13:49:49 Outpatient [facility] [id number] Darryl Ackerman [place] 2023-04-23 08:52:34 2023-04-23 08:52:34 Outpatient [facility] [id number] Darryl Ackerman [place] 2023-03-06 22:52:00 2023-03-07 00:12:00 Emergency X RICKSHERMILO [facility] ERT [id number] [facility] 2023-03-06 22:52:00 2023-03-07 00:12:00 Emergency RicksHermilo [facility] 1.2.840.114 350.1.13.10 4.2.7.2.686 [id number] [facility] 2023-02-02 01:06:00 2023-02-02 02:49:00 Emergency X SELENE PARRA [facility] ERT [id number] [facility] 2023-02-02 01:06:00 2023-02-02 02:49:00 Emergency Selene Parra [facility] 1.2.840.114 350.1.13.10 4.2.7.2.686 [id number] [id number] [facility] 2023-02-02 00:00:00 2023-02-02 00:00:00 Orders Only Doctor Unassigned, [place] [facility] 1.2.840.114 350.1.13.10 4.2.7.2.686 [id number] [facility] 2022-10-24 12:04:00 2022-10-24 15:45:00 Emergency X SURAJ SCOTT [facility] ERT [id number] [facility] 2022-10-24 12:04:00 2022-10-24 15:45:00 Emergency Suraj Scott [facility] 1.2.840.114 350.1.13.10 4.2.7.2.686 [id number] [facility] 2022-09-25 10:04:19 2022-09-25 10:04:19 Outpatient SFA [facility] [id number] Darryl Waggoner 2022-09-25 00:00:00 2022-09-25 00:00:00 Outpatient Visit [id number] 2022-07-21 07:49:00 2022-07-21 08:56:00 Emergency HERMILO OLSEN [facility] ERT [id number] [facility] 2022-07-21 07:49:00 2022-07-21 08:56:00 Emergency Hermilo Ricks [facility] 1.2.840.114 350.1.13.10 4.2.7.2.686 [id number] [facility] 2022-05-19 15:38:00 2022-05-19 17:24:00 Emergency CAT SCOTT [facility] ERT [id number] [facility] 2022-05-19 15:38:00 2022-05-19 17:24:00 Emergency Cat Rutledge [facility] 1.2.840.114 350.1.13.10 4.2.7.2.686 [id number] [id number] [facility] 2022-05-19 00:00:00 2022-05-19 00:00:00 Outpatient Visit [id number] 2022-05-13 02:08:00 2022-05-13 04:24:00 Emergency Selene Parra S [facility] 1.2.840.114 350.1.13.10 4.2.7.2.686 [id number] [facility] 2022-05-13 02:08:00 2022-05-13 04:24:00 Emergency X SELENE PARRA [facility] ERT [id number] [facility] 2022-04-01 16:48:00 2022-04-01 18:39:00 Emergency X CHRISTY RG [facility] ERT [id number] [facility] 2022-04-01 16:48:00 2022-04-01 18:39:00 Emergency Christy Rg [facility] 1.2.840.114 350.1.13.10 4.2.7.2.686 [id number] [id number] [facility] 2022-04-01 00:00:00 2022-04-01 00:00:00 Orders Only Doctor Unassigned, [place] [facility] 1.2.840.114 350.1.13.10 4.2.7.2.686 [id number] [facility] 2021-10-25 13:44:00 2021-10-25 15:25:00 Emergency X MARC LISA [facility] ERT [id number] [facility] 2021-10-25 13:44:00 2021-10-25 15:25:00 Emergency Manolo Trann R [facility] 1.2.840.114 350.1.13.10 4.2.7.2.686 [id number] [id number] [facility] 2021-10-25 00:00:00 2021-10-25 00:00:00 Orders Only Doctor Unassigned, [place] [facility] 1.2.840.114 350.1.13.10 4.2.7.2.686 [id number] [facility] 2021-05-03 17:49:00 2021-05-04 02:46:00 Emergency [facility] [id number] [facility] 2021-04-16 21:16:42 2021-04-22 13:04:00 Inpatient [facility] [id number] [facility] 2021-04-08 17:04:00 2021-04-08 17:04:00 Emergency X ROCHELLE GOLD [facility] ERT [id number] [facility] 2021-04-08 02:42:00 2021-04-08 02:42:00 Emergency X LISA TRAN [facility] ERT [id number] [facility] 2021-03-24 18:36:00 2021-03-24 18:36:00 Emergency X [facility] E[facility] [id number] [facility] Results Test Description Test Time Test Comments Results Result Comments Source CT Abdomen pelvis w contrast 2025-04 15:34:0 3 EXAM: CT ABDOMEN PELVIS W CONTRAST 04/14/2025 9:42 AM HISTORY: 34 years-old Female with Abdominal abscess/infection suspected . COMPARISON: CT abdomen pelvis with contrast 01/17/2025. TECHNIQUE: Contiguous axial imaging from the level of the lung basesthrough the proximal thighs was performed after the administration ofintravenous nonionic iodinated contrast. Abdomen was scanned in venousphase. Corresponding coronal and sagittal MPR reconstructions wereobtained. ?Auto mA and/or iterative reconstruction were used to reduceradiation dose. FINDINGS: LOWER THORAX: The visualized parenchyma of the lingula demonstratebronchiectasis with mosaic pattern suggestive of a trapping. LIVER AND BILIARY: ?The liver is normal in size and contour. 1.4 cm hepaticsegment 5 hypodensity within the right hepatic lobe, stable since 05/19/2022. The gallbladder appears unremarkable. No radiopaque gallstones are seen. Nointra or extrahepatic biliary ductal dilation is visualized. PANCREAS: Normal morphology and enhancement. No ductal dilation or massesare visualized. SPLEEN: The spleen appears unremarkable. ADRENAL GLANDS: No adrenal masses are seen. KIDNEYS, URETERS, AND BLADDER: ? No solid masses. No stones orhydronephrosis. The bladder is partially decompressed. REPRODUCTIVE ORGANS: Bilateral ovarian follicles are noted. GI TRACT AND PERITONEUM: The small bowel and colon show no grossabnormality. No dilation or bowel wall thickening is seen. The appendixappears unremarkable. No intra-abdominal free air or fluid collection isvisualized. VESSELS: Unremarkable. LYMPH NODES: Lymph nodes in the retroperitoneal, mesenteric, and iliacareas are not enlarged. BONES AND SOFT TISSUES: No suspicious sclerotic or lytic osseous lesions.No fractures. [facility] Test Item Value Reference Range Interpretation Comme nts LIPASE (test code = 5572164414) 62 U/L 0-220 Lab Interpretation (test cod e = 07621-8) Normal [facility] with [id number] 14:01:56* Test Item Value Reference Range Interpretation Comme nts WBC (test code = 6690-2) 5.61 4.30-11.10 RBC (test code = 789-8) 4.21 3.93-5.25 HGB (test code = 718-7) 9.1 g/dL 11.6-15.0 L HCT (test code = 4544-3) 31.6 % 35.7-45.2 L MCV (test code = 787-2) 75.1 fL 80.6-95.5 L MCH (test code = 785-6) 21.6 pg 25.9-32.8 L MCHC (test code = 786-4) 28.8 g/dL 31.6-35.1 L RDW-SD (test code = 80888-6) 44.9 fL 39.0-49.9 RDW-CV (test code = 788-0) 16.6 % 12.0-15.5 H PLT (test code = 777-3) 327 166-358 MPV (test code = 62074-2) 9.7 fL 9.5-12.9 NRBC/100 WBC (test code = 6751384788) 0 0.0-10.0 NRBC x10^3 (test code = 9652782624) See_Comment [Automated messa ge] The system which generated this result transmitted reference range: 10*3/?L. The reference range was not used to interpret this result as normal/abnormal. GRAN MAT (NEUT) % (test code = 770-8) 56.4 % IMM GRAN % (test code = 6714611164) 0.2 % LYMPH % (test code = 736-9) 28.9 % MONO % (test code = 5905-5) 7.8 % EOS % (test code = 713-8) 6.2 % BASO % (test code = 706-2) 0.5 % GRAN MAT x10^3(ANC) (test code = 4173956463) 3.16 10*3/uL 1.88-7.09 IMM GRAN x10^3 (test code = 0547540792) 0.00-0.06 LYMPH x10^3 (test code = 731-0) 1.62 10*3/uL 1.32-3.29 MONO x10^3 (test code = 742-7) 0.44 10*3/uL 0.33-0.92 EOS x10^3 (test code = 711-2) 0.35 10*3/uL 0.03-0.39 BASO x10^3 (test code = 704-7) 0.03 10*3/uL 0.01-0.07 Lab Interpretation (test code = 23517-6) [facility] [id number] 05:13:32EXAM: US OVARY TORSION ORDERING PROVIDER: DONI MARIE HISTORY: 34 years-old Female; Provided indication: r/o ovarian torsion . LMP = 02/22/2025Pregnancy test = Negative. TECHNIQUE: Transabdominal and transvaginal ultrasound imaging and colorDoppler evaluation of the pelvis was performed. SpectralDoppler evaluationof the ovaries was performed. [employer] images were obtained for theresdrd. COMPARISON: Pelvic ultrasound obtained on 11/20/2023, CT abdomen pelvisobtained on 01/17/2025 FINDINGS: Uterus: The uterus measures 8.1 x 5.1 x 6.4 cm. The myometrium is heterogenous withat least one subcentimeter fibroid at the fundus. Nabothian cysts arepresent at the cervix.The endometrium is 0.9 cm t hick. Right Adnexa:Ovary: The right ovary measures 3.8 [...] A small volume of free fluid is present.[facility] [id number] 03:06:00* Test Item Value Reference Range Interpretation Comme nts POCT PREG (test code = 1605) Negative On board controls acceptable with C Line (test code = 3574) Yes POCT PREG LOT # (test code = 3575) 235235 POCT PREG TEST DATE ( test code = 3576) 2026-07-22 Lab Interpretation (test cod e = 39328-6) Normal [facility] [id number] 19:16:00* Test Item Value Reference Range Interpretation Comme nts POCT PREG (test code = 1605) Negative On board controls acceptable with C Line (test code = 3574) Yes POCT PREG LOT # (test code = 3575) POCT PREG TEST DATE ( test code = 3576) Lab Interpretation (test cod e = 68077-4) Normal [facility] Glucose(Age >30days)2025-01-27 18:50:00* Test Item Value Reference Range Interpretation Comme nts POCT Glu (age>30days) (test code = 3342) 81 mg/dL 70-110 Lab Interpretation (test cod e = 46155-1) Normal [facility] GLUCOSE (AUTOMATED)2025-01-27 18:48:29* Test Item Value Reference Range Interpretation Comme nts POCT GLU (test code = 1633307274) 81 mg/dL 70-110 Lab Interpretation (test cod e = 45739-5) Normal [facility] Abdomen pelvis w [id number] 08:59:03Examination: Computed tomography of the abdomen and pelvis with contrast Ordering Physician: MANFRED Castillo: 01/17/2025 3:15 AM History: Nausea/vomiting RUQ PPAIN, [...] no suspicious lytic or blastic bony lesion. [facility] [id number] 07:59:26* Test Item Value Reference Range Interpretation Comme nts NA (test code = 1104804945) 136 mmol/L 135-145 K (test code = 6171056989) 3.7 mmol/L 3.5-5.0 CL (test code = 1521751795) 108 mmol/L 98-108 CO2 TOTAL (test code = 8809004002) 18 mmol/L 23-31 L AGAP (test code = 6780313984) 10 2-16 BUN (test code = 3016351600) 6 mg/dL 7-23 L GLUCOSE (test code = 1978944028) 100 mg/dL 70-110 CREATININE (test code = 2160-0) 0.76 mg/dL 0.50-1.04 TOTAL BILI (test code = 0222666988) 0.3 mg/dL 0.1-1.1 CALCIUM (test code = 1387235000) 9.2 mg/dL 8.6-10.6 T PROTEIN (test code = 6556055883) 8.0 g/dL 6.3-8.2 ALBUMIN (test code = 7305930044) 4.7 g/dL 3.5-5.0 ALK PHOS (test code = 7407382159) 88 U/L 34-122 ALTv (test code = 1742-6) 15 U/L 5-35 AST(SGOT) (test code = 8113026475) 19 U/L 13-40 eGFR (test code = 98684-5) 106.3 mL/min/1.73m2 CKD-EPI eGFR (2020). Assuming creatinine has been stable day-to-day for at least three months, the eGFR indicates Category G1 (>= 90 mL/min/1.73 m2) Lab Interpretation (test code = 62693-8) [facility]normal [facility], [id number] 07:59:26* Test Item Value Reference Range Interpretation Comme nts LIPASE (test code = 8891394308) 206 U/L 0-220 Lab Interpretation (test cod e = 67609-4) Normal [facility] with [id number] 07:47:02* Test Item Value Reference Range Interpretation [...] g/dL 31.6-35.1 L RDW-SD (test code = 84119-9) 41.8 fL 39.0-49.9 RDW-CV (test code = 788-0) 15.8 % 12.0-15.5 H PLT (test code = 777-3) 391 166-358 H MPV (test code = 76410-0) 10.1 fL 9.5-12.9 NRBC/100 WBC (test code = 9166943391) 0.0 0.0-10.0 NRBC x10^3 (test code = 0714378481) See_Comment [Automated messa ge] The system which generated this result transmitted reference range: 10*3/?L. The reference range was not used to interpret this result as normal/abnormal. GRAN MAT (NEUT) % (test code = 770-8) 43.1 % IMM GRAN % (test code = 8801655293) 0.10 % LYMPH % (test code = 736-9) 43.8 % MONO % (test code = 5905-5) 9.1 % EOS % (test code = 713-8) 3.3 % BASO % (test code = 706-2) 0.6 % GRAN MAT x10^3(ANC) (test code = 9645542753) 3.34 10*3/uL 1.88-7.09 IMM GRAN x10^3 (test code = 3222436930) 0.00-0.06 LYMPH x10^3 (test code = 731-0) 3.40 10*3/uL 1.32-3.29 H MONO x10^3 (test code = 742-7) 0.71 10*3/uL 0.33-0.92 EOS x10^3 (test code = 711-2) 0.26 10*3/uL 0.03-0.39 BASO x10^3 (test code = 704-7) 0.05 10*3/uL 0.01-0.07 Lab Interpretation (test code = 68422-2) Abnormal [facility] [id number] 07:32:00* Test Item Value Reference Range Interpretation Comme nts POCT PREG (test code = 1605) Negative On board controls acceptable with C Line (test code = 3574) Yes POCT PREG LOT # (test code = 3575) [id number] POCT PREG TEST DATE ( test code = 3576) Lab Interpretation (test cod e = 99804-2) Normal [facility] Abdomen pelvis w [id number] 13:55:36EXAM: CT ABDOMEN PELVIS W CONTRAST 01/05/2025 [...] BONES AND SOFT TISSUES: No aggressive bone lesions.[facility] POCT [id number] 11:58:00* Test Item Value Reference Range Interpretation Comme nts POCT PREG (test code = 1605) Negative On board controls acceptable with C Line (test code = 3574) Yes POCT PREG LOT # (test code = 3575) 070560 POCT PREG TEST DATE ( test code = 3576) 7645471 Lab Interpretation (test cod e = 18630-8) Normal [facility]. Metabolic Panel (67594)2025-01-05 10:57:03* Test Item Value Reference Range Interpretation Comme nts NA (test code = 2266414484) 137 mmol/L 135-145 K (test code = 6143176941) 3.7 mmol/L 3.5-5.0 CL (test code = 1456315440) 107 mmol/L 98-108 CO2 TOTAL (test code = 5033774734) 19 mmol/L 23-31 L AGAP (test code = 4492668251) 11 2-16 BUN (test code = 8601477377) 2 mg/dL 7-23 L GLUCOSE (test code = 1588874988) 114 mg/dL 70-110 H CREATININE (test code = 2160-0) 0.89 mg/dL 0.50-1.04 TOTAL BILI (test code = 7266556634) 0.3 mg/dL 0.1-1.1 CALCIUM (test code = 8534043479) 9.4 mg/dL 8.6-10.6 T PROTEIN (test code = 8353150927) 7.5 g/dL 6.3-8.2 ALBUMIN (test code = 7377307699) 4.3 g/dL 3.5-5.0 ALK PHOS (test code = 8627855213) 88 U/L 34-122 ALTv (test code = 1742-6) 21 U/L 5-35 AST(SGOT) (test code = 4257893165) 27 U/L 13-40 eGFR (test code = 89837-9) 87.9 mL/min/1.73m2 CKD-EPI eGFR (2020). Assuming creatinine has been stable day-to-day for at least three months, the eGFR indicates Category G2 (60 - 89 mL/min/1.73 m2) Lab Interpretation (test code = 71784-4) Abnormal [facility] Chest 1 [id number] 10:54:58Study: Single view chest. Ordering Physician: RAFAEL RICKS Date: 01/05/2025 5:15 AM History:Shortness of breath, chest pain, tachycardia COMPARISON: None. Findings: Single frontal view chest demonstrates a normal heart size. Thelungs are clear without infiltrate, pleural effusion or pneumothorax.Noacute osseous abnormality is identified.[facility]ano[facility]b with [id number] 10:39:44 * Test Item Value Reference Range [...] g/dL 31.6-35.1 L RDW-SD (test code = 79624-4) 44.0 fL 39.0-49.9 RDW-CV (test code = 788-0) 16.2 % 12.0-15.5 H PLT (test code = 777-3) 400 166-358 H MPV (test code = 39091-3) 9.7 fL 9.5-12.9 NRBC/100 WBC (test code = 2411066010) 0.0 0.0-10.0 NRBC x10^3 (test code = 2438903479) See_Comment [Automated messa ge] The system which generated this result transmitted reference range: 10*3/?L. The reference range was not used to interpret this result as normal/abnormal. GRAN MAT (NEUT) % (test code = 770-8) 70.3 % IMM GRAN % (test code = 8686063364) 0.20 % LYMPH % (test code = 736-9) 16.6 % MONO % (test code = 5905-5) 8.0 % EOS % (test code = 713-8) 4.5 % BASO % (test code = 706-2) 0.4 % GRAN MAT x10^3(ANC) (test code = 4222860216) 5.79 10*3/uL 1.88-7.09 IMM GRAN x10^3 (test code = 5755641120) 0.00-0.06 LYMPH x10^3 (test code = 731-0) 1.37 10*3/uL 1.32-3.29 MONO x10^3 (test code = 742-7) 0.66 10*3/uL 0.33-0.92 EOS x10^3 (test code = 711-2) 0.37 10*3/uL 0.03-0.39 BASO x10^3 (test code = 704-7) 0.03 10*3/uL 0.01-0.07 Lab Interpretation (test code = 55327-3) [facility]normal [facility] [id number] 06:15:00* Test Item Value Reference Range Interpretation Comme nts POCT PREG (test code = 1605) Negative On board controls acceptable with C Line (test code = 3574) Yes POCT PREG LOT # (test code = 3575) 692165 POCT PREG TEST DATE ( test code = 3576) 03/09/26 Lab Interpretation (test cod e = 03071-7) Normal [facility]anoPAP TEST, THINPREP, IMAGED AND HPV HIGH RISK WITH [id number] 00:00:00* Test Item Value Reference Range Interpretation Comme nts SOURCE: (test code = 8001) Unspecified SLIDES: (test code = 8011) 1 LMP: (test code = 8021) NOT GIVEN SPECIMEN ADEQUACY: (test code = 39618) (NOTE) INTERPRETATION: (test code = 14888) NILM/NO EPITH. ABNORMALITY;SEE BELOW BACKROOM ASSOCIATE: (test code = 8101) SE LOYOL[place],CT(ASCP)IAC QC TECHNOLOGIST: (test code = 8111) Samy MedranoCT(ASCP) LOCATION: (test code = 07616) (NOTE) CPT: (test code = 8140) 37554 HPV HIGH RISK INTERP (test code = 74825) POSITIVE HPV 16 (test code = 54541) NEGATIVE HPV 18 (test code = 53060) NEGATIVE HPV, HR, OTHER GENOTYPES (test code = 41337) POSITIVE PDFE (test code = PDFReport) PDF Darryl F AustinXR ABDOMEN ACUTE [id number] 14:50:35EXAM: XR ABDOMEN ACUTE SERIES COMPARISON: Abdominal [...] stones identified. No acute bony abnormality is present[facility] 13:23:00* Test Item Value Reference Range Interpretation Comme nts POCT PREG (test code = 1605) Negative On board controls acceptable with C Line (test code = 3574) Yes POCT PREG LOT # (test code = 3575) 321104 POCT PREG TEST DATE ( test code = 3576) 10/20/2025 Lab Interpretation (test cod e = 43579-2) Normal [facility] ABDOMEN PELVIS W [id number] 09:44:53Examination: Computed tomography of the abdomen and [...] suspicious lytic or blastic bony lesion.[facility] [id number] 07:36:00 * Test Item Value Reference Range Interpretation Comme [facility] POCT PREG (test code = 1605) Negative On board controls acceptable with C Line (test code = 3574) Yes POCT PREG LOT # (test code = 3575) 803561 POCT PREG TEST DATE ( test code = 3576) 07/24/2025 Lab Interpretation (test cod e = 57444-0) Normal [facility] ABDOMEN PELVIS W [id number] 10:12:02Examination: Computed tomography of the abdomen and [...] no suspicious lytic or blastic bony lesion.[facility]. Metabolic Panel (27078)2024-03-12 09:27:38* Test Item Value Reference Range Interpretation Comme nts NA (test code = 7493506971) 137 mmol/L 135-145 K (test code = 6437324766) 3.8 mmol/L 3.5-5.0 CL (test code = 2104114419) 107 mmol/L 98-108 CO2 TOTAL (test code = 7388234748) 20 mmol/L 23-31 L AGAP (test code = 6810474447) 10 2-16 BUN (test code = 6367839179) 6 mg/dL 7-23 L GLUCOSE (test code = 5607914821) 94 mg/dL 70-110 CREATININE (test code = 2160-0) 0.83 mg/dL 0.50-1.04 TOTAL BILI (test code = 1061864338) 0.4 mg/dL 0.1-1.1 CALCIUM (test code = 5894805595) 9.2 mg/dL 8.6-10.6 T PROTEIN (test code = 5730410749) 7.6 g/dL 6.3-8.2 ALBUMIN (test code = 0121368486) 4.2 g/dL 3.5-5.0 ALK PHOS (test code = 2090795137) 73 U/L 34-122 ALTv (test code = 1742-6) 18 U/L 5-35 AST(SGOT) (test code = 3427707683) 24 U/L 13-40 eGFR (test code = 79269-5) 96.2 mL/min/1.73m2 CKD-EPI eGFR (2020). Assuming creatinine has been stable day-to-day for at least three months, the eGFR indicates Category G1 (>= 90 mL/min/1.73 m2) Lab Interpretation (test code = 07305-6) Abnormal [facility]ano[facility]ase2024-05-29 09:26:57* Test Item Value Reference Range Interpretation Comme nts LIPASE (test code = 9101012655) 108 U/L 0-220 Lab Interpretation (test cod e = 02981-6) Normal [facility] with [id number] 09:13:56* Test Item Value Reference Range Interpretation [...] g/dL 31.6-35.1 L RDW-SD (test code = 32250-2) 42.4 fL 39.0-49.9 RDW-CV (test code = 788-0) 15.7 % 12.0-15.5 H PLT (test code = 777-3) 346 166-358 MPV (test code = 39912-0) 9.8 fL 9.5-12.9 NRBC/100 WBC (test code = 5855407711) 0.0 0.0-10.0 NRBC x10^3 (test code = 1564042078) See_Comment [Automated [employer] ge] The system which generated this result transmitted reference range: 10*3/?L. The reference range was not used to interpret this result as normal/abnormal. GRAN MAT (NEUT) % (test code = 770-8) 43.3 % IMM GRAN % (test code = 8624648444) 0.30 % LYMPH % (test code = 736-9) 42.6 % MONO % (test code = 5905-5) 7.5 % EOS % (test code = 713-8) 5.5 % BASO % (test code = 706-2) 0.8 % GRAN MAT x10^3(ANC) (test code = 4417471738) 3.21 10*3/uL 1.88-7.09 IMM GRAN x10^3 (test code = 5415338192) 0.00-0.06 LYMPH x10^3 (test code = 731-0) 3.16 10*3/uL 1.32-3.29 MONO x10^3 (test code = 742-7) 0.56 10*3/uL 0.33-0.92 EOS x10^3 (test code = 711-2) 0.41 10*3/uL 0.03-0.39 H BASO x10^3 (test code = 704-7) 0.06 10*3/uL 0.01-0.07 Lab Interpretation (test code = 51477-8) Abnormal [facility]anoEBV-Mononucleosis [id number] 11:45:15* Test Item Value Reference Range Interpretation Comme nts EBV Mononucleosis Screen (te st code = 0170350075) Negative Negative Lab Interpretation (test cod e = 69138-5) Normal [facility] ABDOMEN PELVIS W [id number] 10:26:21ORDERING PHYSICIAN: SELENE PARRA CLINICAL HISTORY: Abdominal [...] the pelvis. Appendixis normal. The bones are unremarkable.[facility] [id number] 09:09:00* Test Item Value Reference Range Interpretation Comme [facility] POCT PREG (test code = 1605) Negative On board controls acceptable with C Line (test code = 3574) Yes POCT PREG LOT # (test code = 3575) [id number] POCT PREG TEST DATE ( test code = 3576) 11/21/2024 Lab Interpretation (test cod e = 00048-3) Normal [facility] [id number] 09:50:51* Test Item Value Reference Range Interpretation Comme [facility] DIAGNOSIS: (test code = 8200) (NOTE) A) Conization (L EEP) - EctocervixHigh grade squamous intraepithelial lesion (CIN2), extendingfocally to endocervical and ectocervical/stromal margins. B) Conization (LEEP) - EndocervixFocal high grade squamous intraepithelial lesion (CIN2).Surgical margins negative for dysplasia. COMMENTS: (test code = 8205) (NOTE) The previously r eported abnormal Pap (accession # [id number]) isreviewed. The biopsy material more clearly displays [...] TanNUMBER OF TISSUE PIECES: 2SUBMITTED IN CASSETTE(S): l1SDQLXK: FormalinCOMMENTS:Consists of a 1.9x1.1x0.5 cm irregularly shaped rubbery tissuefragment marked with a suture designating 12 o'clock. Partiallysurfaced by franks-white ectocervix. Endocervical margin inked blue.All remaining margins inked orange. Serially sectioned x 6 andentirely submitted as follows: A1: 11-12 o'clock (x 3)A2: 12-1 o'clock (x 3) Also in the container is a 2.2x1.0x0.4 cm irregularly shapedtissue fragment partially surfaced by franks-pink ectocervix.Grossly identified endocervical margin inked blue. All remainingmargins inked orange. Entirely submitted in A3-A4, sectioned x 7. B) SPECIMEN LABELED: EndocervixSIZE/WEIGHT: 2.3x1.0x0.5 cm SPECIMEN COLOR: TanNUMBER OF TISSUE PIECES: 1SUBMITTED IN CASSETTE(S): n8GPSISZ: FormalinCOMMENTS:[place] shaped rubbery tissue fragment partially surfaced bytan-white ectocervix. Os is inked blue by clinician. Endocervicalmargin inked blue. All remaining margins inked orange. Radiallysectioned x 9 and entirely submitted. Specimen fell apart uponsectioning. PATHOLOGIST: (test code = 8250) (NOTE) Heide Shipley MD, Board-certified Anatomic and ClinicalPathology, Hematopathology Specimens processed and interpreted at [facility], [address] [place] [address], , CLIA: [id number] CPT: (test code = 8400) (NOTE) 32679g2 UNLESS O THERWISE INDICATED, ALL TESTING PERFORMED AT [facility] [address] [place] [address] PAINTER AND GRADER CORK: ANIBAL PAREDES M.D. CLIA NUMBER [id number] [facility]. [id number] SURGICAL PATHOLOGY [id number] 00:00:00* Test Item Value Reference Range Interpretation [...] = PDFReport) PDF Darryl Ackerman AustinSURGICAL PATHOLOGY [id number] 00:00:00* Test Item Value Reference Range Interpretation [...] = PDFReport) PDF Darryl Ackerman [facility] PATH[facility] [id number] 00:00:00* Test Item Value Reference Range Interpretation [...] = PDFReport) PDF Darryl Ackerman [facility]ICAL PATH[facility] [id number] 00:00:00* Test Item Value Reference Range Interpretation [...] = PDFReport) PDF Darryl Ackerman [facility] PATH[facility] [id number] 00:00:00* Test Item Value Reference Range Interpretation Comme nts DIAGNOSIS: (test code = 8200) (NOTE) COMMENTS: (test code = 8205) (NOTE) MICROSCOPIC DESCRIPTION: (te st code = 8210) (NOTE) CLINICAL DATA: (test code = 8401) (NOTE) GROSS DESCRIPTION: (test code = 8220) (NOTE) PATHOLOGIST: (test code = 8250) (NOTE) CPT: (test code = 8400) (NOTE) PDFE (test code = PDFReport) PDF [facility]ck[facility] [id number] 00:00:00* Test Item Value Reference Range Interpretation Comme nts DIAGNOSIS: (test code = 8200) (NOTE) COMMENTS: (test code = 8205) (NOTE) MICROSCOPIC DESCRIPTION: (te st code = 8210) (NOTE) CLINICAL DATA: (test code = 8401) (NOTE) GROSS DESCRIPTION: (test code = 8220) (NOTE) PATHOLOGIST: (test code = 8250) (NOTE) CPT: (test code = 8400) (NOTE) PDFE (test code = PDFReport) PDF Darryl Ackerman [place] [id number] 00:00:00* Test Item Value Reference Range Interpretation [...] = PDFReport) PDF Darryl Ackerman AustinSURGICAL PATHOLOGY [id number] 00:00:00* Test Item Value Reference Range Interpretation [...] code = PDFReport) PDF Darryl Chang OVARY [id number] 16:27:21EXAM: US OVARY TORSION HISTORY: 32 years [...] None [place]-sac: Trace volume free fluid is present.[facility] ABDOMEN PELVIS W [id number] 15:15:04EXAM: CT ABDOMEN PELVIS W CONTRAST HISTORY: [...] No suspicious lytic or sclerotic bony lesions arepresent.[facility]. METABOLIC PANEL (18541)2023-11-20 14:09:45* Test Item Value Reference Range Interpretation Comme nts NA (test code = 5704636548) 135 mmol/L 135-145 K (test code = 5437214888) 4.1 mmol/L 3.5-5.0 CL (test code = 0771475396) 112 mmol/L 98-108 H CO2 TOTAL (test code = 7072556895) 17 mmol/L 23-31 L AGAP (test code = 3507240190) 6 2-16 BUN (test code = 8715365140) 10 mg/dL 7-23 GLUCOSE (test code = 6096158088) 95 mg/dL 70-110 CREATININE (test code = 2559951364) 0.72 mg/dL 0.50-1.04 TOTAL BILI (test code = 5556796818) 0.2 mg/dL 0.1-1.1 CALCIUM (test code = 9042441776) 9.0 mg/dL 8.6-10.6 T PROTEIN (test code = 6768065916) 7.6 g/dL 6.3-8.2 ALBUMIN (test code = 9986977301) 4.3 g/dL 3.5-5.0 ALK PHOS (test code = 8362060984) 81 U/L 34-122 ALTv (test code = 1742-6) 23 U/L 5-35 AST(SGOT) (test code = 3951561109) 26 U/L 13-40 eGFR (test code = 23045-5) 114.8 mL/min/1.73m2 CKD-EPI eGFR (2020). Assuming creatinine has been stable day-to-day for at least three months, the eGFR indicates Category G1 (>= 90 mL/min/1.73 m2) Lab Interpretation (test code = 70141-7) Abnormal [facility] WITH [id number] 13:53:43* Test Item Value Reference Range Interpretation [...] g/dL 31.6-35.1 L RDW-SD (test code = 03637-9) 42.6 fL 39.0-49.9 RDW-CV (test code = 788-0) 15.5 % 12.0-15.5 PLT (test code = 777-3) 364 166-358 H MPV (test code = 29102-1) 10.0 fL 9.5-12.9 NRBC/100 WBC (test code = 1967862340) 0.0 0.0-10.0 NRBC x10^3 (test code = 3200107012) See_Comment [Automated messa ge] The system which generated this result transmitted reference range: 10*3/?L. The reference range was not used to interpret this result as normal/abnormal. GRAN MAT (NEUT) % (test code = 770-8) 59.8 % IMM GRAN % (test code = 6427809792) 0.30 % LYMPH % (test code = 736-9) 27.8 % MONO % (test code = 5905-5) 9.2 % EOS % (test code = 713-8) 2.1 % BASO % (test code = 706-2) 0.8 % GRAN MAT x10^3(ANC) (test code = 5248262345) 3.70 10*3/uL 1.88-7.09 IMM GRAN x10^3 (test code = 9244119509) 0.00-0.06 LYMPH x10^3 (test code = 731-0) 1.72 10*3/uL 1.32-3.29 MONO x10^3 (test code = 742-7) 0.57 10*3/uL 0.33-0.92 EOS x10^3 (test code = 711-2) 0.13 10*3/uL 0.03-0.39 BASO x10^3 (test code = 704-7) 0.05 10*3/uL 0.01-0.07 Lab Interpretation (test code = 27249-9) Abnormal [facility] [id number] 13:26:00* Test Item Value Reference Range Interpretation Comme nts POCT PREG (test code = 1605) Negative On board controls acceptable with C Line (test code = 3574) Yes POCT PREG LOT # (test code = 3575) 880390 POCT PREG TEST DATE ( test code = 3576) 01/20/2025 Lab Interpretation (test cod e = 17536-1) Normal [facility] [id number] 13:28:00* Test Item Value Reference Range Interpretation Comme nts POCT PREG (test code = 1605) Negative On board controls acceptable with C Line (test code = 3574) Yes POCT PREG LOT # (test code = 3575) 620691 POCT PREG TEST DATE ( test code = 3576) 12/23/2024 Lab Interpretation (test cod e = 31185-4) Normal [facility]/NG, NAAT, [id number] 18:43:32* Test Item Value Reference Range Interpretation Comme nts CHLAMYDIA, NAAT, URINE (test code = 21906) NEGATIVE NEGATIVE Testing is perfo rmed with Lucie HARRY 6800/8800 systems usingreal-time polymerase chain reaction (PCR) method. A negative result does not exclude low level infection, specimensampling error, or collection error. GONORRHEA, NAAT, URINE (test code = 87063) NEGATIVE NEGATIVE Testing is perfo rmed with Lucie HARRY 6800/8800 systems usingreal-time polymerase chain reaction (PCR) method. A negative result does not exclude low level infection, specimensampling error, or collection error. UNLESS OTHERWISE INDICATED, ALL TESTING PERFORMED AT [facility], [facility]. [address] [place] [address] PAINTER AND GRADER CORK: ANIBAL PAREDES M.D. CLIA NUMBER [id number] [facility] [place]. [id number] TRICHOMONAS, NAAT, [id number] 16:46:16* Test Item Value Reference Range Interpretation Comme nts TRICHOMONAS, NAAT, URINE (test code = 43167) NEGATIVE NEGATIVE Testing is perfo rmed with Lucie HARRY 6800/8800 method usingreal-time polymerase chain reaction (PCR) method. A negative result does not exclude low level infection, specimensampling error, or collection error. TRICHOMONAS, URINE, [id number] 00:00:00* Test Item Value Reference Range Interpretation Comme nts TRICHOMONAS, NAAT, URINE (te st code = 03682) NEGATIVE Darryl F AustinCT/NG, TMA, [id number] 00:00:00* Test Item Value Reference Range Interpretation Comme nts CHLAMYDIA, NAAT, URINE (test code = 68911) NEGATIVE GONORRHEA, NAAT, URINE (test code = 05976) NEGATIVE Darryl F AustinTRICHOMONAS, URINE, [id number] 00:00:00* Test Item Value Reference Range Interpretation Comme nts TRICHOMONAS, NAAT, URINE (te st code = 82633) NEGATIVE Darryl F AustinCT/NG, TMA, [id number] 00:00:00* Test Item Value Reference Range Interpretation Comme nts CHLAMYDIA, NAAT, URINE (test code = 50178) NEGATIVE GONORRHEA, NAAT, URINE (test code = 88705) NEGATIVE Darryl F AustinTRICHOMONAS, URINE, [id number] 00:00:00* Test Item Value Reference Range Interpretation Comme nts TRICHOMONAS, NAAT, URINE (te st code = 16995) NEGATIVE Darryl F AustinCT/NG, TMA, [id number] 00:00:00* Test Item Value Reference Range Interpretation Comme nts CHLAMYDIA, NAAT, URINE (test code = 71631) NEGATIVE GONORRHEA, NAAT, URINE (test code = 94004) NEGATIVE Darryl F AustinTRICHOMONAS, URINE, [id number] 00:00:00* Test Item Value Reference Range Interpretation Comme nts TRICHOMONAS, NAAT, URINE (te st code = 85001) NEGATIVE Darryl F AustinCT/NG, TMA, [id number] 00:00:00* Test Item Value Reference Range Interpretation Comme nts CHLAMYDIA, NAAT, URINE (test code = 64087) NEGATIVE GONORRHEA, NAAT, URINE (test code = 35544) NEGATIVE Darryl F AustinTRICHOMONAS, URINE, [id number] 00:00:00* Test Item Value Reference Range Interpretation Comme nts TRICHOMONAS, NAAT, URINE (te st code = 39096) NEGATIVE Darryl F AustinCT/NG, TMA, [id number] 00:00:00* Test Item Value Reference Range Interpretation Comme nts CHLAMYDIA, NAAT, URINE (test code = 30276) NEGATIVE GONORRHEA, NAAT, URINE (test code = 76729) NEGATIVE Darryl F AustinTRICHOMONAS, URINE, [id number] 00:00:00* Test Item Value Reference Range Interpretation Comme nts TRICHOMONAS, NAAT, URINE (te st code = 02203) NEGATIVE Darryl F AustinCT/NG, TMA, [id number] 00:00:00* Test Item Value Reference Range Interpretation Comme nts CHLAMYDIA, NAAT, URINE (test code = 72515) NEGATIVE GONORRHEA, NAAT, URINE (test code = 42510) NEGATIVE Darryl F AustinTRICHOMONAS, URINE, [id number] 00:00:00* Test Item Value Reference Range Interpretation Comme nts TRICHOMONAS, NAAT, URINE (te st code = 17083) NEGATIVE Darryl F AustinCT/NG, TMA, [id number] 00:00:00* Test Item Value Reference Range Interpretation Comme nts CHLAMYDIA, NAAT, URINE (test code = 79094) NEGATIVE GONORRHEA, NAAT, URINE (test code = 60061) NEGATIVE Darryl F AustinTRICHOMONAS, URINE, [id number] 00:00:00* Test Item Value Reference Range Interpretation Comme nts TRICHOMONAS, NAAT, URINE (te st code = 57960) NEGATIVE Darryl F AustinCT/NG, TMA, [id number] 00:00:00* Test Item Value Reference Range Interpretation Comme nts CHLAMYDIA, NAAT, URINE (test code = 31431) NEGATIVE GONORRHEA, NAAT, URINE (test code = 13103) NEGATIVE Darryl Ackerman AustinPOCT [id number] 12:56:00* Test Item Value Reference Range Interpretation Comme nts POCT PREG (test code = 1605) Negative On board controls acceptable with C Line (test code = 3574) Yes POCT PREG LOT # (test code = 3575) [facility] [id number] POCT PREG TEST DATE (test code = 3576) 12/12/2024 Lab Interpretation (test cod e = 09071-0) [facility] [id number] 10:24:44* Test Item Value Reference Range Interpretation [...] TanNUMBER OF TISSUE PIECES: 1SUBMITTED IN CASSETTE(S): [id number]: FormalinCOMMENTS:Entirely submitted intact. F) SPECIMEN LABELED: Cervix 8:00SIZE/WEIGHT: 0.2x0.1x0.1 cm SPECIMEN COLOR: TanNUMBER OF TISSUE PIECES: 1SUBMITTED IN CASSETTE(S): [id number]: FormalinCOMMENTS:Entirely submitted intact. A) SPECIMEN LABELED: EndometriumSIZE/WEIGHT: 1.4x1.3x0.2 cm AggregateSPECIMEN COLOR: TanNUMBER OF TISSUE PIECES: multipleSUBMITTED IN CASSETTE(S): [id number]: FormalinCOMMENTS:Filtered and entirely submitted. B) SPECIMEN LABELED: EndocervixSIZE/WEIGHT: 1.7x1.5x0.3 cm AggregateSPECIMEN COLOR: TanNUMBER OF TISSUE PIECES: multipleSUBMITTED IN CASSETTE(S): [id number]: FormalinCOMMENTS:Filtered and entirely submitted. C) SPECIMEN LABELED: Cervix 1:00SIZE/WEIGHT: 0.4x0.3x0.1 cm SPECIMEN COLOR: TanNUMBER OF TISSUE PIECES: 1SUBMITTED IN CASSETTE(S): [id number]: FormalinCOMMENTS:Entirely submitted intact. D) SPECIMEN LABELED: Cervix 3:00SIZE/WEIGHT: 0.2x0.2x0.1 cm SPECIMEN COLOR: TanNUMBER OF TISSUE PIECES: 1SUBMITTED IN CASSETTE(S): [id number]: FormalinCOMMENTS:Entirely submitted intact. PATHOLOGIST: (test code = 8250) (NOTE) Gita Morocho M.D., P h.D., Board Certified in Anatomic and ClinicalPathology, Cytopathology Specimens processed and interpreted at [facility], [address] [place] [address], , CLIA: [id number] CPT: (test code = 8400) (NOTE) 50116g5 UNLESS O THERWISE INDICATED, ALL TESTING PERFORMED AT [facility] [address] [place] [address] PAINTER AND GRADER CORK: ANIBAL PAREDES M.D. CLIA NUMBER [id number] [facility] [place]. [id number] SURGICAL PATHOLOGY [id number] 00:00:00* Test Item Value Reference Range Interpretation Comme nts DIAGNOSIS: (test code = 8200) (NOTE) MICROSCOPIC DESCRIPTION: (te st code = 8210) (NOTE) CLINICAL DATA: (test code = 8401) (NOTE) GROSS DESCRIPTION: (test code = 8220) (NOTE) PATHOLOGIST: (test code = 8250) (NOTE) CPT: (test code = 8400) (NOTE) PDFE (test code = PDFReport) PDF Darryl Ackerman AustinSURGICAL PATHOLOGY [id number] 00:00:00* Test Item Value Reference Range Interpretation Comme nts DIAGNOSIS: (test code = 8200) (NOTE) MICROSCOPIC DESCRIPTION: (te st code = 8210) (NOTE) CLINICAL DATA: (test code = 8401) (NOTE) GROSS DESCRIPTION: (test code = 8220) (NOTE) PATHOLOGIST: (test code = 8250) (NOTE) CPT: (test code = 8400) (NOTE) PDFE (test code = PDFReport) PDF Darryl Ackerman AustinSURGICAL PATHOLOGY [id number] 00:00:00* Test Item Value Reference Range Interpretation Comme nts DIAGNOSIS: (test code = 8200) (NOTE) MICROSCOPIC DESCRIPTION: (te st code = 8210) (NOTE) CLINICAL DATA: (test code = 8401) (NOTE) GROSS DESCRIPTION: (test code = 8220) (NOTE) PATHOLOGIST: (test code = 8250) (NOTE) CPT: (test code = 8400) (NOTE) PDFE (test code = PDFReport) PDF [facility] [id number] 00:00:00* Test Item Value Reference Range Interpretation Comme nts DIAGNOSIS: (test code = 8200) (NOTE) MICROSCOPIC DESCRIPTION: (te st code = 8210) (NOTE) CLINICAL DATA: (test code = 8401) (NOTE) GROSS DESCRIPTION: (test code = 8220) (NOTE) PATHOLOGIST: (test code = 8250) (NOTE) CPT: (test code = 8400) (NOTE) PDFE (test code = PDFReport) PDF [facility] [id number] 00:00:00* Test Item Value Reference Range Interpretation Comme nts DIAGNOSIS: (test code = 8200) (NOTE) MICROSCOPIC DESCRIPTION: (te st code = 8210) (NOTE) CLINICAL DATA: (test code = 8401) (NOTE) GROSS DESCRIPTION: (test code = 8220) (NOTE) PATHOLOGIST: (test code = 8250) (NOTE) CPT: (test code = 8400) (NOTE) PDFE (test code = PDFReport) PDF [facility]ckerman [facility] [id number] 00:00:00* Test Item Value Reference Range Interpretation Comme nts DIAGNOSIS: (test code = 8200) (NOTE) MICROSCOPIC DESCRIPTION: (te st code = 8210) (NOTE) CLINICAL DATA: (test code = 8401) (NOTE) GROSS DESCRIPTION: (test code = 8220) (NOTE) PATHOLOGIST: (test code = 8250) (NOTE) CPT: (test code = 8400) (NOTE) PDFE (test code = PDFReport) PDF Darryl Ackerman [place] [id number] 00:00:00* Test Item Value Reference Range Interpretation Comme nts DIAGNOSIS: (test code = 8200) (NOTE) MICROSCOPIC DESCRIPTION: (te st code = 8210) (NOTE) CLINICAL DATA: (test code = 8401) (NOTE) GROSS DESCRIPTION: (test code = 8220) (NOTE) PATHOLOGIST: (test code = 8250) (NOTE) CPT: (test code = 8400) (NOTE) PDFE (test code = PDFReport) PDF Darryl Ackerman AustinS[facility]ICAL PATHOLOGY [id number] 00:00:00* Test Item Value Reference Range Interpretation Comme nts DIAGNOSIS: (test code = 8200) (NOTE) MICROSCOPIC DESCRIPTION: (te st code = 8210) (NOTE) CLINICAL DATA: (test code = 8401) (NOTE) GROSS DESCRIPTION: (test code = 8220) (NOTE) PATHOLOGIST: (test code = 8250) (NOTE) CPT: (test code = 8400) (NOTE) PDFE (test code = PDFReport) PDF Darryl Ackerman AustinVAGINAL PATHOGENS DNA [id number] 13:41:36* Test Item Value Reference Range Interpretation Comme nts JAZ SPECIES (test code = 70101) NEGATIVE NEGATIVE G. VAGINALIS (test code = 59934) NEGATIVE NEGATIVE T. VAGINALIS (test code = 72695) NEGATIVE NEGATIVE Note: [facility] VPIII Microbial Identification Testis a DNA probe test intended for use in the detectionand identification of Jaz species, Gardnerellavaginalis and Trichomonas vaginalis nucleic acid. UNLESS OTHERWISE INDICATED, ALL TESTING PERFORMED AT [facility] [address] [place] [address] PAINTER AND GRADER CORK: ANIBAL PAREDES M.D. [place] NUMBER [id number] [facility]. [id number] VAGINAL PATHOGENS DNA [id number] 00:00:00* Test Item Value Reference Range Interpretation Comme nts JAZ SPECIES (test code = 27900) NEGATIVE G. VAGINALIS (test code = 05968) NEGATIVE T. VAGINALIS (test code = 60447) NEGATIVE Darryl Ackerman AustinVAGINAL PATHOGENS DNA [id number] 00:00:00* Test Item Value Reference Range Interpretation Comme nts JAZ SPECIES (test code = 32833) NEGATIVE G. VAGINALIS (test code = 89834) NEGATIVE T. VAGINALIS (test code = 69730) NEGATIVE Darryl Ackerman AustinVAGINAL PATHOGENS DNA [id number] 00:00:00* Test Item Value Reference Range Interpretation Comme nts JAZ SPECIES (test code = 73072) NEGATIVE G. VAGINALIS (test code = 25416) NEGATIVE T. VAGINALIS (test code = 02403) NEGATIVE Darryl F AustinVAGINAL PATHOGENS DNA [id number] 00:00:00* Test Item Value Reference Range Interpretation Comme nts JAZ SPECIES (test code = 09602) NEGATIVE G. VAGINALIS (test code = 53605) NEGATIVE T. VAGINALIS (test code = 60626) NEGATIVE Darryl F AustinVAGINAL PATHOGENS DNA [id number] 00:00:00* Test Item Value Reference Range Interpretation Comme nts JAZ SPECIES (test code = 47825) NEGATIVE G. VAGINALIS (test code = 53878) NEGATIVE T. VAGINALIS (test code = 44003) NEGATIVE Darryl F AustinVAGINAL PATHOGENS DNA [id number] 00:00:00* Test Item Value Reference Range Interpretation Comme nts JAZ SPECIES (test code = 39098) NEGATIVE G. VAGINALIS (test code = 20939) NEGATIVE T. VAGINALIS (test code = 16755) NEGATIVE Darryl F AustinVAGINAL PATHOGENS DNA [id number] 00:00:00* Test Item Value Reference Range Interpretation Comme nts JAZ SPECIES (test code = 98027) NEGATIVE G. VAGINALIS (test code = 37413) NEGATIVE T. VAGINALIS (test code = 81904) NEGATIVE Darryl F AustinVAGINAL PATHOGENS DNA [id number] 00:00:00* Test Item Value Reference Range Interpretation Comme nts JAZ SPECIES (test code = 62150) NEGATIVE G. VAGINALIS (test code = 46762) NEGATIVE T. VAGINALIS (test code = 29569) NEGATIVE Darryl F AustinCOMP. METABOLIC PANEL (84068)2023-06-12 05:34:53* Test Item Value Reference Range Interpretation Comme nts NA (test code = 7326128991) 137 mmol/L 135-145 K (test code = 4288211106) 3.9 mmol/L 3.5-5.0 CL (test code = 8255074851) 106 mmol/L 98-108 CO2 TOTAL (test code = 0267879095) 24 mmol/L 23-31 AGAP (test code = 4698556236) 7 2-16 BUN (test code = 4997925301) 10 mg/dL 7-23 GLUCOSE (test code = 1246116190) 90 mg/dL 70-110 CREATININE (test code = 9434937677) 0.94 mg/dL 0.50-1.04 TOTAL BILI (test code = 4055543026) 0.1-1.1 L CALCIUM (test code = 6209932779) 9.1 mg/dL 8.6-10.6 T PROTEIN (test code = 7527449893) 6.9 g/dL 6.3-8.2 ALBUMIN (test code = 4379567189) 4.1 g/dL 3.5-5.0 ALK PHOS (test code = 6707395191) 72 U/L 34-122 ALTv (test code = 1742-6) 24 U/L 5-35 AST(SGOT) (test code = 5256241087) 28 U/L 13-40 eGFR (test code = 0389716533) 69.5 mL/min/1.73m2 ELIA (test code = ELIA) [...] imaging tests). Lab Interpretation (test code = 82589-2) Abnormal [facility] WITH [id number] 05:16:33* Test Item Value Reference Range Interpretation Comme nts WBC (test code = 6690-2) 7.81 See_Comment [Automated [employer]] The system which generated this result transmitted reference range: 4.30 - 11.10 10*3/?L. The reference range was not used to interpret this result as normal/abnormal. RBC (test code = 789-8) 3.89 See_Comment L [Automated [employer]] The system which generated this result [...] g/dL 31.6-35.1 L RDW-SD (test code = 28594-5) 48.2 fL 39.0-49.9 RDW-CV (test code = 788-0) 17.9 % 12.0-15.5 H PLT (test code = 777-3) 327 See_Comment [Automated [employer]] The system which generated this result transmitted reference range: 166 - 358 10*3/?L. The reference range was not used to interpret this result as normal/abnormal. MPV (test code = 35135-0) 9.7 fL 9.5-12.9 NRBC/100 WBC (test code = 3727659672) 0.0 See_Comment [Automated [employer]] The system which generated this result transmitted reference range: 0.0 - 10.0 /100 WBCs. The reference range was not used to interpret this result as normal/abnormal. NRBC x10^3 (test code = 1660727858) See_Comment [Automated messa ge] The system which generated this result transmitted reference range: 10*3/?L. The reference range was not used to interpret this result as normal/abnormal. GRAN MAT (NEUT) % (test code = 770-8) 40.4 % IMM GRAN % (test code = 1024612655) 0.10 % LYMPH % (test code = 736-9) 45.5 % MONO % (test code = 5905-5) 9.0 % EOS % (test code = 713-8) 4.5 % BASO % (test code = 706-2) 0.5 % GRAN MAT x10^3(ANC) (test code = 1586205429) 3.16 10*3/uL 1.88-7.09 IMM GRAN x10^3 (test code = 8750981591) 0.00-0.06 LYMPH x10^3 (test code = 731-0) 3.55 10*3/uL 1.32-3.29 H MONO x10^3 (test code = 742-7) 0.70 10*3/uL 0.33-0.92 EOS x10^3 (test code = 711-2) 0.35 10*3/uL 0.03-0.39 BASO x10^3 (test code = 704-7) 0.04 10*3/uL 0.01-0.07 Lab Interpretation (test code = 78081-1) [facility] [id number] 05:07:00* Test Item Value Reference Range Interpretation Comme nts POCT PREG (test code = 1605) Negative On board controls acceptable with C Line (test code = 3574) Yes POCT PREG LOT # (test code = 3575) [id number] POCT PREG TEST DATE ( test code = 3576) 10/17/2024 Lab Interpretation (test cod e = 84559-8) Normal [facility], THINPREP, [id number] 18:32:20 * Test Item Value Reference Range Interpretation Comme nts SOURCE: (test code = 8001) Cervical SLIDES: (test code = 8011) 1 LMP: (test code = 8021) 05/17/2023 SPECIMEN ADEQUACY: (test code = 00640) (NOTE) Satisfactory for evaluation. Endocervical cells/transformation zone component present. INTERPRETATION: (test code = 74662) ASCUS/EPITH. ABNORMALITY; SEE BELOW A - ------- EPITHELIAL CELL ABNORMALITY Atypical squamous cells of undetermined significance (ASC-US) OTHER COMMENTS: (test code = 8081) (NOTE) Trichomonas v aginalis present. BACKROOM ASSOCIATE: (test code = 8101) TIERA Mcgee(ASC P) PATHOLOGIST INTERPRETATION BY: (test code = 8122) Joana Luna DO LOCATION: (test code = 48524) (NOTE) Specimens proces sed and interpreted at [facility] , [address] [place], [place] [id number], , CLIA: [id number] CPT: (test code = 8140) (NOTE) 01848, 92889 UNL ESS OTHERWISE INDICATED, COMPUTER AIDED AND BACKROOM ASSOCIATE SCREENING PERFORMED. The Pap test is a screening test with an inherent, but low probability of error. Your patient should be reminded to consult you immediately if she experiences any suspicious signs or symptoms, regardless of her Pap test result. An alternate report format containing images or consolidated prior Pap history is available as applicable. PAP TEST, THINPREP, [id number] 00:00:00* Test Item Value Reference Range Interpretation Comme nts SOURCE: (test code = 8001) Cervical SLIDES: (test code = 8011) 1 LMP: (test code = 8021) 05/17/2023 SPECIMEN ADEQUACY: (test code = 53118) (NOTE) INTERPRETATION: (test code = 18142) ASCUS/EPITH. ABNORMALITY; SEE BELOW OTHER COMMENTS: (test code = 8081) (NOTE) BACKROOM ASSOCIATE: (test code = 8101) TIERA Mcgee(ASCP) PATHOLOGIST INTERPRETATION BY: (test code = 8122) Joana Luna DO LOCATION: (test code = 24263) (NOTE) CPT: (test code = 8140) (NOTE) Darryl WaggonerANGELESP TEST, THINPREP, [id number] 00:00:00* Test Item Value Reference Range Interpretation Comme nts SOURCE: (test code = 8001) Cervical SLIDES: (test code = 8011) 1 LMP: (test code = 8021) 05/17/2023 SPECIMEN ADEQUACY: (test code = 33489) (NOTE) INTERPRETATION: (test code = 55060) ASCUS/EPITH. ABNORMALITY; SEE BELOW OTHER COMMENTS: (test code = 8081) (NOTE) BACKROOM ASSOCIATE: (test code = 8101) TIERA Mcgee(ASCP) PATHOLOGIST INTERPRETATION BY: (test code = 8122) Joana Luna DO LOCATION: (test code = 97370) (NOTE) CPT: (test code = 8140) (NOTE) Darryl WaggonerANGELESP TEST, THINPREP, [id number] 00:00:00* Test Item Value Reference Range Interpretation Comme nts SOURCE: (test code = 8001) Cervical SLIDES: (test code = 8011) 1 LMP: (test code = 8021) 05/17/2023 SPECIMEN ADEQUACY: (test code = 33185) (NOTE) INTERPRETATION: (test code = 52217) ASCUS/EPITH. ABNORMALITY; SEE BELOW OTHER COMMENTS: (test code = 8081) (NOTE) BACKROOM ASSOCIATE: (test code = 8101) TIERA Mcgee(ASCP) PATHOLOGIST INTERPRETATION BY: (test code = 8122) Joana Luna DO LOCATION: (test code = 12578) (NOTE) CPT: (test code = 8140) (NOTE) Darryl WaggonerANGELESP TEST, THINPREP, [id number] 00:00:00* Test Item Value Reference Range Interpretation Comme nts SOURCE: (test code = 8001) Cervical SLIDES: (test code = 8011) 1 LMP: (test code = 8021) 05/17/2023 SPECIMEN ADEQUACY: (test code = 43951) (NOTE) INTERPRETATION: (test code = 24830) ASCUS/EPITH. ABNORMALITY; SEE BELOW OTHER COMMENTS: (test code = 8081) (NOTE) BACKROOM ASSOCIATE: (test code = 8101) TIERA Mcgee(ASCP) PATHOLOGIST INTERPRETATION BY: (test code = 8122) Joana Luna DO LOCATION: (test code = 41188) (NOTE) CPT: (test code = 8140) (NOTE) Darryl Tyron EdilsonPAP TEST, THINPREP, [id number] 00:00:00* Test Item Value Reference Range Interpretation Comme nts SOURCE: (test code = 8001) Cervical SLIDES: (test code = 8011) 1 LMP: (test code = 8021) 05/17/2023 SPECIMEN ADEQUACY: (test code = 60678) (NOTE) INTERPRETATION: (test code = 24317) ASCUS/EPITH. ABNORMALITY; SEE BELOW OTHER COMMENTS: (test code = 8081) (NOTE) BACKROOM ASSOCIATE: (test code = 8101) TIERA Mcgee(ASCP) PATHOLOGIST INTERPRETATION BY: (test code = 8122) Joana Luna DO LOCATION: (test code = 23892) (NOTE) CPT: (test code = 8140) (NOTE) Darryl Perez TEST, THINPREP, [id number] 00:00:00* Test Item Value Reference Range Interpretation Comme nts SOURCE: (test code = 8001) Cervical SLIDES: (test code = 8011) 1 LMP: (test code = 8021) 05/17/2023 SPECIMEN ADEQUACY: (test code = 56580) (NOTE) INTERPRETATION: (test code = 84235) ASCUS/EPITH. ABNORMALITY; SEE BELOW OTHER COMMENTS: (test code = 8081) (NOTE) BACKROOM ASSOCIATE: (test code = 8101) TIERA Mcgee(ASCP) PATHOLOGIST INTERPRETATION BY: (test code = 8122) Joana Luna DO LOCATION: (test code = 30625) (NOTE) CPT: (test code = 8140) (NOTE) Darryl F AustinPAP TEST, THINPREP, [id number] 00:00:00* Test Item Value Reference Range Interpretation Comme nts SOURCE: (test code = 8001) Cervical SLIDES: (test code = 8011) 1 LMP: (test code = 8021) 05/17/2023 SPECIMEN ADEQUACY: (test code = 04059) (NOTE) INTERPRETATION: (test code = 77402) ASCUS/EPITH. ABNORMALITY; SEE BELOW OTHER COMMENTS: (test code = 8081) (NOTE) BACKROOM ASSOCIATE: (test code = 8101) TIERA Mcgee(ASCP) PATHOLOGIST INTERPRETATION BY: (test code = 8122) [facility] LOCATION: (test code = 29522) (NOTE) CPT: (test code = 8140) (NOTE) Darryl McadamsP TEST, THINPREP, [id number] 00:00:00* Test Item Value Reference Range Interpretation Comme nts SOURCE: (test code = 8001) Cervical SLIDES: (test code = 8011) 1 LMP: (test code = 8021) 05/17/2023 SPECIMEN ADEQUACY: (test code = 77811) (NOTE) INTERPRETATION: (test code = 17808) ASCUS/EPITH. ABNORMALITY; SEE BELOW OTHER COMMENTS: (test code = 8081) (NOTE) BACKROOM ASSOCIATE: (test code = 8101) TIERA Mcgee(ASCP) PATHOLOGIST INTERPRETATION BY: (test code = 8122) [facility] LOCATION: (test code = 34161) (NOTE) CPT: (test code = 8140) (NOTE) Darryl Ackerman EdilsonCT/NG, NAAT, [id number] 20:10:21* Test Item Value Reference Range Interpretation Comme nts CHLAMYDIA, NAAT, URINE (test code = 08704) POSITIVE NEGATIVE A Testing is perfo rmed with Lucie HARRY 6800/8800 systems usingreal-time polymerase chain reaction (PCR) method. GONORRHEA, NAAT, URINE (test code = 88354) NEGATIVE NEGATIVE Testing is perfo rmed with Lucie HARRY 6800/8800 systems usingreal-time polymerase chain reaction (PCR) method. A negative result does not exclude low level infection, specimensampling error, or collection error. UNLESS OTHERWISE INDICATED, ALL TESTING PERFORMED AT [facility] [address] [place] [address] PAINTER AND GRADER CORK: ANIBAL PAREDES M.D. CLIA NUMBER [id number] [place]. [id number] HPV HIGH RISK WITH GENOTYPE, [id number] 17:33:46* Test Item Value Reference Range Interpretation Comme nts HPV HIGH RISK INTERP (test code = 26610) POSITIVE NEGATIVE A HPV 16 (test code = 39094) POSITIVE A HPV 18 (test code = 03936) NEGATIVE HPV, HR, OTHER GENOTYPES (test code = 76124) NEGATIVE Testing methodol ogy is real-time PCR [...] TESTING PERFORMED AT [facility] [address] [place] [address] PAINTER AND GRADER CORK: ANIBAL PAREDES M.D. CLIA NUMBER [id number] [place]. [id number] VAGINAL PATHOGENS DNA [id number] 16:55:18* Test Item Value Reference Range Interpretation Comme nts JAZ SPECIES (test code = 04951) NEGATIVE NEGATIVE G. VAGINALIS (test code = 24242) NEGATIVE NEGATIVE T. VAGINALIS (test code = 74159) NEGATIVE NEGATIVE Note: [facility] VPIII Microbial Identification Testis a DNA probe test intended for use in the detectionand identification of Jaz species, Gardnerellavaginalis and Trichomonas vaginalis nucleic acid. UNLESS OTHERWISE INDICATED, ALL TESTING PERFORMED AT [facility]. [address] [place] [address] PAINTER AND GRADER CORK: ANIBAL PAREDES M.D. CLIA NUMBER [id number] [place]. [id number] RPR REFLEX TO T. PALLIDUM - [id number] 08:07:41* Test Item Value Reference Range Interpretation Comme nts RPR (test code = 94988) NON-REACTIVE NON-REACTIVE RPR TITER (test code = 3500) NOT INDIC. TITER NOT INDIC. HIV 1/2 4TH GEN, RFLX [id number] 05:24:44* Test Item Value Reference Range Interpretation Comme nts HIV 1/2 4TH GEN, RFLX CONF ( test code = 3514) NON-REACTIVE NON-REACTIVE HPV HIGH RISK WITH GENOTYPE, [id number] 00:00:00* Test Item Value Reference Range Interpretation Comme nts HPV HIGH RISK INTERP (test c ode = 06492) POSITIVE HPV 16 (test code = 42238) POSITIVE HPV 18 (test code = 89178) NEGATIVE HPV, HR, OTHER GENOTYPES (te st code = 03561) NEGATIVE PDFE (test code = PDFReport) PDF Darryl Ackerman AustinRPR REFLEX TO T. PALLIDUM - [id number] 00:00:00* Test Item Value Reference Range Interpretation Comme nts RPR (test code = 63688) NON-REACTIVE RPR TITER (test code = 3500) NOT INDIC. TITER Darryl Ackerman AustinCT/NG, TMA, [id number] 00:00:00* Test Item Value Reference Range Interpretation Comme nts CHLAMYDIA, NAAT, URINE (test code = 24013) POSITIVE GONORRHEA, NAAT, URINE (test code = 42009) NEGATIVE Darryl Ackerman AustinHIV 1/2 4TH GEN, RFLX [id number] 00:00:00* Test Item Value Reference Range Interpretation Comme nts HIV 1/2 4TH GEN, RFLX CONF ( test code = 3514) NON-REACTIVE Darryl Ackerman AustinVAGINAL PATHOGENS DNA [id number] 00:00:00* Test Item Value Reference Range Interpretation Comme nts JAZ SPECIES (test code = 98405) NEGATIVE G. VAGINALIS (test code = 20416) NEGATIVE T. VAGINALIS (test code = 70690) NEGATIVE Darryl F AustinRPR REFLEX TO T. PALLIDUM - [id number] 00:00:00* Test Item Value Reference Range Interpretation Comme nts RPR (test code = 68485) NON-REACTIVE RPR TITER (test code = 3500) NOT INDIC. TITER Darryl F AustinHPV HIGH RISK WITH GENOTYPE, [id number] 00:00:00* Test Item Value Reference Range Interpretation Comme nts HPV HIGH RISK INTERP (test c ode = 73682) POSITIVE HPV 16 (test code = 33497) POSITIVE HPV 18 (test code = 02729) NEGATIVE HPV, HR, OTHER GENOTYPES (te st code = 45039) NEGATIVE PDFE (test code = PDFReport) PDF Darryl Ackerman AustinCT/NG, TMA, [id number] 00:00:00* Test Item Value Reference Range Interpretation Comme nts CHLAMYDIA, NAAT, URINE (test code = 59888) POSITIVE GONORRHEA, NAAT, URINE (test code = 10085) NEGATIVE Darryl WaggonerHIV 1/2 4TH GEN, RFLX [id number] 00:00:00* Test Item Value Reference Range Interpretation Comme nts HIV 1/2 4TH GEN, RFLX CONF ( test code = 3514) NON-REACTIVE Darryl WaggonerVAGINAL PATHOGENS DNA [id number] 00:00:00* Test Item Value Reference Range Interpretation Comme nts JAZ SPECIES (test code = 09298) NEGATIVE G. VAGINALIS (test code = 38029) NEGATIVE T. VAGINALIS (test code = 72721) NEGATIVE Darryl WaggonerHPV HIGH RISK WITH GENOTYPE, [id number] 00:00:00* Test Item Value Reference Range Interpretation Comme nts HPV HIGH RISK INTERP (test c ode = 23733) POSITIVE HPV 16 (test code = 77474) POSITIVE HPV 18 (test code = 83481) NEGATIVE HPV, HR, OTHER GENOTYPES (te st code = 87786) NEGATIVE PDFE (test code = PDFReport) PDF Darryl Ackerman AustinRPR REFLEX TO T. PALLIDUM - [id number] 00:00:00* Test Item Value Reference Range Interpretation Comme nts RPR (test code = 15076) NON-REACTIVE RPR TITER (test code = 3500) NOT INDIC. TITER Darryl Ackerman AustinCT/NG, TMA, [id number] 00:00:00* Test Item Value Reference Range Interpretation Comme nts CHLAMYDIA, NAAT, URINE (test code = 08193) POSITIVE GONORRHEA, NAAT, URINE (test code = 72409) NEGATIVE Darryl Ackerman AustinHIV 1/2 4TH GEN, RFLX [id number] 00:00:00* Test Item Value Reference Range Interpretation Comme nts HIV 1/2 4TH GEN, RFLX CONF ( test code = 3514) NON-REACTIVE Darryl Ackerman AustinVAGINAL PATHOGENS DNA [id number] 00:00:00* Test Item Value Reference Range Interpretation Comme nts JAZ SPECIES (test code = ) NEGATIVE G. VAGINALIS (test code = 05176) NEGATIVE T. VAGINALIS (test code = 05435) NEGATIVE Darryl Ackerman AustinHPV HIGH RISK WITH GENOTYPE, [id number] 00:00:00* Test Item Value Reference Range Interpretation Comme nts HPV HIGH RISK INTERP (test c ode = 63128) POSITIVE HPV 16 (test code = 59047) POSITIVE HPV 18 (test code = 96769) NEGATIVE HPV, HR, OTHER GENOTYPES (te st code = 11772) NEGATIVE PDFE (test code = PDFReport) PDF Darryl Ackerman AustinRPR REFLEX TO T. PALLIDUM - [id number] 00:00:00* Test Item Value Reference Range Interpretation Comme nts RPR (test code = 66012) NON-REACTIVE RPR TITER (test code = 3500) NOT INDIC. TITER Darryl Ackerman AustinCT/NG, TMA, [id number] 00:00:00* Test Item Value Reference Range Interpretation Comme nts CHLAMYDIA, NAAT, URINE (test code = 33747) POSITIVE GONORRHEA, NAAT, URINE (test code = 23213) NEGATIVE Darryl WaggonerHIV 1/2 4TH GEN, RFLX [id number] 00:00:00* Test Item Value Reference Range Interpretation Comme nts HIV 1/2 4TH GEN, RFLX CONF ( test code = 3514) NON-REACTIVE Darryl Ackerman AustinVAGINAL PATHOGENS DNA [id number] 00:00:00* Test Item Value Reference Range Interpretation Comme nts JAZ SPECIES (test code = ) NEGATIVE G. VAGINALIS (test code = 13786) NEGATIVE T. VAGINALIS (test code = 02513) NEGATIVE Darryl Ackerman AustinRPR REFLEX TO T. PALLIDUM - [id number] 00:00:00* Test Item Value Reference Range Interpretation Comme nts RPR (test code = 42075) NON-REACTIVE RPR TITER (test code = 3500) NOT INDIC. TITER Darryl Ackerman AustinHPV HIGH RISK WITH GENOTYPE, [id number] 00:00:00* Test Item Value Reference Range Interpretation Comme nts HPV HIGH RISK INTERP (test c ode = 60330) POSITIVE HPV 16 (test code = 41133) POSITIVE HPV 18 (test code = 77271) NEGATIVE HPV, HR, OTHER GENOTYPES (te st code = 15654) NEGATIVE PDFE (test code = PDFReport) PDF Darryl Ackerman AustinCT/NG, TMA, [id number] 00:00:00* Test Item Value Reference Range Interpretation Comme nts CHLAMYDIA, NAAT, URINE (test code = 59936) POSITIVE GONORRHEA, NAAT, URINE (test code = 62876) NEGATIVE Darryl Ackerman AustinHIV 1/2 4TH GEN, RFLX [id number] 00:00:00* Test Item Value Reference Range Interpretation Comme nts HIV 1/2 4TH GEN, RFLX CONF ( test code = 3514) NON-REACTIVE Darryl Ackerman AustinVAGINAL PATHOGENS DNA [id number] 00:00:00* Test Item Value Reference Range Interpretation Comme nts JAZ SPECIES (test code = 03954) NEGATIVE G. VAGINALIS (test code = 58498) NEGATIVE T. VAGINALIS (test code = 87460) NEGATIVE Darryl Ackerman AustinRPR REFLEX TO T. PALLIDUM - [id number] 00:00:00* Test Item Value Reference Range Interpretation Comme nts RPR (test code = 13317) NON-REACTIVE RPR TITER (test code = 3500) NOT INDIC. TITER Darryl Ackerman AustinHPV HIGH RISK WITH GENOTYPE, [id number] 00:00:00* Test Item Value Reference Range Interpretation Comme nts HPV HIGH RISK INTERP (test c ode = 65125) POSITIVE HPV 16 (test code = 37493) POSITIVE HPV 18 (test code = 66796) NEGATIVE HPV, HR, OTHER GENOTYPES (te st code = 33772) NEGATIVE PDFE (test code = PDFReport) PDF Darryl Ackerman AustinCT/NG, TMA, [id number] 00:00:00* Test Item Value Reference Range Interpretation Comme nts CHLAMYDIA, NAAT, URINE (test code = 53550) POSITIVE GONORRHEA, NAAT, URINE (test code = 42460) NEGATIVE Darryl Ackerman AustinVAGINAL PATHOGENS DNA [id number] 00:00:00* Test Item Value Reference Range Interpretation Comme nts JAZ SPECIES (test code = 77462) NEGATIVE G. VAGINALIS (test code = 30138) NEGATIVE T. VAGINALIS (test code = 06437) NEGATIVE Darryl Ackerman AustinHIV 1/2 4TH GEN, RFLX [id number] 00:00:00* Test Item Value Reference Range Interpretation Comme nts HIV 1/2 4TH GEN, RFLX CONF ( test code = 3514) NON-REACTIVE Darryl Ackerman AustinRPR REFLEX TO T. PALLIDUM - [id number] 00:00:00* Test Item Value Reference Range Interpretation Comme nts RPR (test code = 74102) NON-REACTIVE RPR TITER (test code = 3500) NOT INDIC. TITER Darryl Ackerman AustinHPV HIGH RISK WITH GENOTYPE, [id number] 00:00:00* Test Item Value Reference Range Interpretation Comme nts HPV HIGH RISK INTERP (test c ode = 31073) POSITIVE HPV 16 (test code = 60517) POSITIVE HPV 18 (test code = 73631) NEGATIVE HPV, HR, OTHER GENOTYPES (te st code = 53629) NEGATIVE PDFE (test code = PDFReport) PDF Darryl Ackerman AustinCT/NG, TMA, [id number] 00:00:00* Test Item Value Reference Range Interpretation Comme nts CHLAMYDIA, NAAT, URINE (test code = 03160) POSITIVE GONORRHEA, NAAT, URINE (test code = 69488) NEGATIVE Darryl Ackerman AustinVAGINAL PATHOGENS DNA [id number] 00:00:00* Test Item Value Reference Range Interpretation Comme nts JAZ SPECIES (test code = 17563) NEGATIVE G. VAGINALIS (test code = 29250) NEGATIVE T. VAGINALIS (test code = 71748) NEGATIVE Darryl Ackerman AustinHIV 1/2 4TH GEN, RFLX [id number] 00:00:00* Test Item Value Reference Range Interpretation Comme nts HIV 1/2 4TH GEN, RFLX CONF ( test code = 3514) NON-REACTIVE Darryl Ackerman AustinRPR REFLEX TO T. PALLIDUM - [id number] 00:00:00* Test Item Value Reference Range Interpretation Comme nts RPR (test code = 30781) NON-REACTIVE RPR TITER (test code = 3500) NOT INDIC. TITER Darryl WaggonerHPV HIGH RISK WITH GENOTYPE, [id number] 00:00:00* Test Item Value Reference Range Interpretation Comme nts HPV HIGH RISK INTERP (test c ode = 69283) POSITIVE HPV 16 (test code = 64434) POSITIVE HPV 18 (test code = 51757) NEGATIVE HPV, HR, OTHER GENOTYPES (te st code = 97075) NEGATIVE PDFE (test code = PDFReport) PDF Darryl WaggonerCT/NG, TMA, [id number] 00:00:00* Test Item Value Reference Range Interpretation Comme nts CHLAMYDIA, NAAT, URINE (test code = 09747) POSITIVE GONORRHEA, NAAT, URINE (test code = 01884) NEGATIVE Darryl WaggonerHIV 1/2 4TH GEN, RFLX [id number] 00:00:00* Test Item Value Reference Range Interpretation Comme nts HIV 1/2 4TH GEN, RFLX CONF ( test code = 3514) NON-REACTIVE Darryl WaggonerVAGINAL PATHOGENS DNA [id number] 00:00:00* Test Item Value Reference Range Interpretation Comme nts JAZ SPECIES (test code = 02019) NEGATIVE G. VAGINALIS (test code = 98646) NEGATIVE T. VAGINALIS (test code = 71755) NEGATIVE Darryl WaggonerCOMP. METABOLIC PANEL (32961)2023-05-28 07:12:09* Test Item Value Reference Range Interpretation Comme nts NA (test code = 7892252615) 138 mmol/L 135-145 K (test code = 5410513548) 3.6 mmol/L 3.5-5.0 CL (test code = 0358855352) 105 mmol/L 98-108 CO2 TOTAL (test code = 5269067964) 24 mmol/L 23-31 AGAP (test code = 7747833296) 9 2-16 BUN (test code = 6371700174) 8 mg/dL 7-23 GLUCOSE (test code = 6618413644) 94 mg/dL 70-110 CREATININE (test code = 2091589021) 0.90 mg/dL 0.50-1.04 TOTAL BILI (test code = 7178827540) 0.5 mg/dL 0.1-1.1 CALCIUM (test code = 7702347358) 9.2 mg/dL 8.6-10.6 T PROTEIN (test code = 4598204057) 7.8 g/dL 6.3-8.2 ALBUMIN (test code = 1804936026) 4.3 g/dL 3.5-5.0 ALK PHOS (test code = 7747093335) 91 U/L 34-122 ALTv (test code = 1742-6) 32 U/L 5-35 AST(SGOT) (test code = 8496381803) 48 U/L 13-40 H eGFR (test code = 0909343342) 73.0 mL/min/1.73m2 ELIA (test code = ELIA) [...] imaging tests). Lab Interpretation (test code = 70594-5) Ab[facility] WITH [id number] 06:45:45* Test Item Value Reference Range Interpretation [...] g/dL 31.6-35.1 L RDW-SD (test code = 31014-1) 49.8 fL 39.0-49.9 RDW-CV (test code = 788-0) 18.3 % 12.0-15.5 H PLT (test code = 777-3) 391 See_Comment H [Automated messa ge] The system which generated this result transmitted reference range: 166 - 358 10*3/?L. The reference range was not used to interpret this result as normal/abnormal. MPV (test code = 24806-6) 10.3 fL 9.5-12.9 NRBC/100 WBC (test code = 4514797226) 0.0 See_Comment [Automated [employer] ssage] The system which generated this result transmitted reference range: 0.0 - 10.0 /100 WBCs. The reference range was not used to interpret this result as normal/abnormal. NRBC x10^3 (test code = 7329048302) See_Comment [Automated messa ge] The system which generated this result transmitted reference range: 10*3/?L. The reference range was not used to interpret this result as normal/abnormal. GRAN MAT (NEUT) % (test code = 770-8) 47.8 % IMM GRAN % (test code = 8232585920) 0.30 % LYMPH % (test code = 736-9) 39.1 % MONO % (test code = 5905-5) 8.5 % EOS % (test code = 713-8) 3.5 % BASO % (test code = 706-2) 0.8 % GRAN MAT x10^3(ANC) (test code = 6488753389) 3.73 10*3/uL 1.88-7.09 IMM GRAN x10^3 (test code = 2134670610) 0.00-0.06 LYMPH x10^3 (test code = 731-0) 3.04 10*3/uL 1.32-3.29 MONO x10^3 (test code = 742-7) 0.66 10*3/uL 0.33-0.92 EOS x10^3 (test code = 711-2) 0.27 10*3/uL 0.03-0.39 BASO x10^3 (test code = 704-7) 0.06 10*3/uL 0.01-0.07 Lab Interpretation (test code = 90840-5) Abnormal [facility] [id number] 06:40:00* Test Item Value Reference Range Interpretation Comme nts POCT PREG (test code = 1605) Negative On board controls acceptable with C Line (test code = 3574) Yes POCT PREG LOT # (test code = 3575) [id number] POCT PREG TEST DATE ( test code = 3576) 10/17/2024 Lab Interpretation (test cod e = 63781-8) Normal [facility] [id number] 06:17:00* Test Item Value Reference Range Interpretation Comme nts POCT PREG (test code = 1605) Negative On board controls acceptable with C Line (test code = 3574) Present POCT PREG LOT # (test code = 3575) [id number] POCT PREG TEST DATE ( test code = 3576) Lab Interpretation (test cod e = 53180-4) Normal [facility] [id number] 18:58:00* Test Item Value Reference Range Interpretation Comme nts POCT PREG (test code = 1605) negative Lab Interpretation (test cod e = 87125-9) Normal [facility] WITH [id number] 13:14:57* Test Item Value Reference Range Interpretation [...] g/dL 31.6-35.1 L RDW-SD (test code = 43289-4) 46.2 fL 39-49.9 RDW-CV (test code = 788-0) 17.0 % 12-15.5 H PLT (test code = 777-3) See_Comment H [Automated messa ge] The system which generated this result transmitted reference range: 166 - 358 10*3/?L. The reference range was not used to interpret this result as normal/abnormal. MPV (test code = 66959-1) 9.1 fL 9.5-12.9 L NRBC/100 WBC (test code = 1676056683) See_Comment [Automated me ssage] The system which generated this result transmitted reference range: 0.0 - 10.0 /100 WBCs. The reference range was not used to interpret this result as normal/abnormal. NRBC x10^3 (test code = 7983895805) See_Comment [Automated messa ge] The system which generated this result transmitted reference range: 10*3/?L. The reference range was not used to interpret this result as normal/abnormal. GRAN MAT (NEUT) % (test code = 770-8) 51.3 % IMM GRAN % (test code = 9250037074) 0.40 % LYMPH % (test code = 736-9) 37.0 % MONO % (test code = 5905-5) 8.5 % EOS % (test code = 713-8) 2.2 % BASO % (test code = 706-2) 0.6 % GRAN MAT x10^3(ANC) (test code = 7095858022) 4.26 10*3/uL 1.88-7.09 IMM GRAN x10^3 (test code = 5939342014) 0.03 10*3/uL 0-0.06 LYMPH x10^3 (test code = 731-0) 3.06 10*3/uL 1.32-3.29 MONO x10^3 (test code = 742-7) 0.70 10*3/uL 0.33-0.92 EOS x10^3 (test code = 711-2) 0.18 10*3/uL 0.03-0.39 BASO x10^3 (test code = 704-7) 0.05 10*3/uL 0.01-0.07 Lab Interpretation (test code = 26821-5) Abnormal [facility] [id number] 12:55:00* Test Item Value Reference Range Interpretation Comme nts POCT PREG (test code = 1605) negative On board controls acceptable with C Line (test code = 3574) present Lab Interpretation (test cod e = 78353-5) [facility] [id number] 20:49:00* Test Item Value Reference Range Interpretation Comme nts POCT PREG (test code = 1605) negative On board controls acceptable with C Line (test code = 3574) yes POCT PREG LOT # (test code = 3575) [id number] POCT PREG TEST DATE ( test code = 3576) 08/14/2023 Lab Interpretation (test cod e = 12957-9) [facility] [id number] 08:01:55* Test Item Value Reference Range Interpretation Comme nts NA (test code = 4193396492) 138 mmol/L 135-145 K (test code = 9451233353) 4.2 mmol/L 3.5-5 CL (test code = 5557238449) 107 mmol/L 98-108 CO2 TOTAL (test code = 6505651056) 20 mmol/L 23-31 L AGAP (test code = 2341975423) 2-16 BUN (test code = 1863049855) 10 mg/dL 7-23 GLUCOSE (test code = 2092870692) 105 mg/dL 70-110 CREATININE (test code = 0494190201) 0.86 mg/dL 0.5-1.04 TOTAL BILI (test code = 8598330864) 0.1-1.1 L CALCIUM (test code = 8707692086) 9.1 mg/dL 8.6-10.6 T PROTEIN (test code = 4008632072) 7.4 g/dL 6.3-8.2 ALBUMIN (test code = 4915971367) 4.8 g/dL 3.5-5 ALK PHOS (test code = 7092339922) 81 U/L 34-122 ALTv (test code = 1742-6) 17 U/L 5-35 AST(SGOT) (test code = 4389908110) 19 U/L 13-40 eGFR (test code = 0078907085) mL/min/1.73m2 ELIA (test code = ELIA) Association [...] imaging tests). Lab Interpretation (test code = 67543-7) [facility] [id number] 07:59:48* Test Item Value Reference Range Interpretation Comme nts LIPASE (test code = 1319745807) 94 U/L 0-220 Lab Interpretation (test cod e = 05572-6) [facility] with [id number] 07:47:29* Test Item Value Reference Range Interpretation Comme nts WBC (test code = 6690-2) See_Comment [Automated [employer]] The system which generated this result transmitted reference range: 4.30 - 11.10 10*3/?L. The reference range was not used to interpret this result as normal/abnormal. RBC (test code = 789-8) See_Comment [Automated [employer]] The system which generated this result transmitted [...] g/dL 31.6-35.1 L RDW-SD (test code = 67375-2) 40.2 fL 39-49.9 RDW-CV (test code = 788-0) 15.0 % 12-15.5 PLT (test code = 777-3) See_Comment [Automated messa ge] The system which generated this result transmitted reference range: 166 - 358 10*3/?L. The reference range was not used to interpret this result as normal/abnormal. MPV (test code = 49975-5) 10.1 fL 9.5-12.9 NRBC/100 WBC (test code = 6833000751) See_Comment [Automated me ssage] The system which generated this result transmitted reference range: 0.0 - 10.0 /100 WBCs. The reference range was not used to interpret this result as normal/abnormal. NRBC x10^3 (test code = 7669452370) See_Comment [Automated messa ge] The system which generated this result transmitted reference range: 10*3/?L. The reference range was not used to interpret this result as normal/abnormal. GRAN MAT (NEUT) % (test code = 770-8) 46.6 % IMM GRAN % (test code = 2398979973) 0.40 % LYMPH % (test code = 736-9) 40.7 % MONO % (test code = 5905-5) 8.6 % EOS % (test code = 713-8) 3.3 % BASO % (test code = 706-2) 0.4 % GRAN MAT x10^3(ANC) (test code = 1072969559) 3.40 10*3/uL 1.88-7.09 IMM GRAN x10^3 (test code = 7057278791) 0.03 10*3/uL 0-0.06 LYMPH x10^3 (test code = 731-0) 2.97 10*3/uL 1.32-3.29 MONO x10^3 (test code = 742-7) 0.63 10*3/uL 0.33-0.92 EOS x10^3 (test code = 711-2) 0.24 10*3/uL 0.03-0.39 BASO x10^3 (test code = 704-7) 0.03 10*3/uL 0.01-0.07 Lab Interpretation (test code = 63155-2) [facility] [id number] 07:37:00* Test Item Value Reference Range Interpretation Comme nts POCT PREG (test code = 1605) Negative On board controls acceptable with C Line (test code = 3574) Present POCT PREG LOT # (test code = 3575) [id number] POCT PREG TEST DATE ( test code = 3576) 08/14/2023 Lab Interpretation (test cod e = 92557-1) [facility] [id number] 22:19:00* Test Item Value Reference Range Interpretation Comme nts POCT PREG (test code = 1605) NEGATIVE On board controls acceptable with C Line (test code = 3574) present POCT PREG LOT # (test code = 3575) [id number] POCT PREG TEST DATE ( test code = 3576) 07/14/2023 Lab Interpretation (test cod e = 17315-0) [facility] [id number] 19:54:00* Test Item Value Reference Range Interpretation Comme nts POCT PREG (test code = 1605) negative On board controls acceptable with C Line (test code = 3574) present POCT PREG LOT # (test code = 3575) [id number] POCT PREG TEST DATE ( test code = 3576) 12/12/2022 Lab Interpretation (test cod e = 35984-1) [facility]:28:44* Test Item Value Reference Range Interpretation Comme nts FERRITIN (test code = 2075) 3 NG/ML 13-200 L [id number] 04:37:13* Test Item Value Reference Range Interpretation Comme nts TRANSFERRIN (test code = 4936) 385 MG/DL 200-360 H UNLESS OTHERWISE INDICATED, ALL TESTING PERFORMED [facility] [address] [place] [address] [employer] CORK: NICOLE GUSMAN M.D. CLIA NUMBER [id number] [facility] [place] [id number] IRON BINDING CAPACITY AND IRON AND % [id number] 04:19:01* Test Item Value Reference Range Interpretation Comme nts IRON, SERUM (test code = 2222) 11 UG/DL 37-145 L UNSATURATED IBC (test code = 63370) 442 UG/DL 112-347 H CALC TOTAL IBC (test code = 2077) 453 UG/DL 250-450 H CALC % IRON SAT (test code = 2078) 2 % 20-50 L IRON BINDING CAPACITY AND IRON AND % [id number] 00:00:00* Test Item Value Reference Range Interpretation Comme nts IRON, SERUM (test code = 2) 11 UG/DL UNSATURATED IBC (test code = 68666) 442 UG/DL CALC TOTAL IBC (test code = 7) 453 UG/DL CALC % IRON SAT (test code = 9) 2 % Darryl F [id number] 00:00:00* Test Item Value Reference Range Interpretation Comme nts FERRITIN (test code = 2074) 3 NG/ML Darryl F UxzbmaXWTBMYETMAT6818-12-65 00:00:00* Test Item Value Reference Range Interpretation Comme nts TRANSFERRIN (test code = 4936) 385 MG/DL Darryl F AustinIRON BINDING CAPACITY AND IRON AND % [id number] 00:00:00* Test Item Value Reference Range Interpretation Comme nts IRON, SERUM (test code = 2221) 11 UG/DL UNSATURATED IBC (test code = 19930) 442 UG/DL CALC TOTAL IBC (test code = 2076) 453 UG/DL CALC % IRON SAT (test code = 2078) 2 % Darryl F [id number] 00:00:00* Test Item Value Reference Range Interpretation Comme nts FERRITIN (test code = 2074) 3 NG/ML Darryl F VazqbsQHIZZSSZMOS7266-71-24 00:00:00* Test Item Value Reference Range Interpretation Comme nts TRANSFERRIN (test code = 4936) 385 MG/DL Darryl F AustinIRON BINDING CAPACITY AND IRON AND % [id number] 00:00:00* Test Item Value Reference Range Interpretation Comme nts IRON, SERUM (test code = 2221) 11 UG/DL UNSATURATED IBC (test code = 93318) 442 UG/DL CALC TOTAL IBC (test code = 7) 453 UG/DL CALC % IRON SAT (test code = 9) 2 % Darryl F WhveddJCFJOCSB4249-64-75 00:00:00* Test Item Value Reference Range Interpretation Comme nts FERRITIN (test code = 2074) 3 NG/ML Darryl F MrpdwxDLJOXTUNJWB1414-53-59 00:00:00* Test Item Value Reference Range Interpretation Comme nts TRANSFERRIN (test code = 4936) 385 MG/DL Darryl F AustinIRON BINDING CAPACITY AND IRON AND % [id number] 00:00:00* Test Item Value Reference Range Interpretation Comme nts IRON, SERUM (test code = 2222) 11 UG/DL UNSATURATED IBC (test code = 80746) 442 UG/DL CALC TOTAL IBC (test code = 7) 453 UG/DL CALC % IRON SAT (test code = 2079) 2 % Darryl F [id number] 00:00:00* Test Item Value Reference Range Interpretation Comme nts FERRITIN (test code = 2074) 3 NG/ML Darryl F WpntqtGPUWCYTEULW7831-51-29 00:00:00* Test Item Value Reference Range Interpretation Comme nts TRANSFERRIN (test code = 4936) 385 MG/DL Darryl F AustinIRON BINDING CAPACITY AND IRON AND % [id number] 00:00:00* Test Item Value Reference Range Interpretation Comme nts IRON, SERUM (test code = 2222) 11 UG/DL UNSATURATED IBC (test code = 14291) 442 UG/DL CALC TOTAL IBC (test code = 7) 453 UG/DL CALC % IRON SAT (test code = 9) 2 % Darryl F WrwlxrMMJMWTXG0583-72-49 00:00:00* Test Item Value Reference Range Interpretation Comme nts FERRITIN (test code = 5) 3 NG/ML Darryl F VzafjiPDHQKEZIUYJ9917-02-22 00:00:00* Test Item Value Reference Range Interpretation Comme nts TRANSFERRIN (test code = 4936) 385 MG/DL Darryl F AustinIRON BINDING CAPACITY AND IRON AND % [id number] 00:00:00* Test Item Value Reference Range Interpretation Comme nts IRON, SERUM (test code = 2222) 11 UG/DL UNSATURATED IBC (test code = 77496) 442 UG/DL CALC TOTAL IBC (test code = 7) 453 UG/DL CALC % IRON SAT (test code = 2079) 2 % Darryl F OhlkkmOLULIAIW7182-74-96 00:00:00* Test Item Value Reference Range Interpretation Comme nts FERRITIN (test code = 5) 3 NG/ML Darryl F HcjhulRPQGTINEYBC2217-90-25 00:00:00* Test Item Value Reference Range Interpretation Comme nts TRANSFERRIN (test code = 4936) 385 MG/DL Darryl F AustinIRON BINDING CAPACITY AND IRON AND % [id number] 00:00:00* Test Item Value Reference Range Interpretation Comme nts IRON, SERUM (test code = 2222) 11 UG/DL UNSATURATED IBC (test code = 21983) 442 UG/DL CALC TOTAL IBC (test code = 7) 453 UG/DL CALC % IRON SAT (test code = 2079) 2 % Darryl F QdvzxcMRZGSJGS0221-70-88 00:00:00* Test Item Value Reference Range Interpretation Comme nts FERRITIN (test code = 2074) 3 NG/ML Darryl F [id number] 00:00:00* Test Item Value Reference Range Interpretation Comme nts TRANSFERRIN (test code = 4936) 385 MG/DL Darryl F AustinIRON BINDING CAPACITY AND IRON AND % [id number] 00:00:00* Test Item Value Reference Range Interpretation Comme nts IRON, SERUM (test code = 2222) 11 UG/DL UNSATURATED IBC (test code = 86601) 442 UG/DL CALC TOTAL IBC (test code = 7) 453 UG/DL CALC % IRON SAT (test code = 9) 2 % Darryl F LvpnorBDPGUUUS9356-93-62 00:00:00* Test Item Value Reference Range Interpretation Comme nts FERRITIN (test code = 2074) 3 NG/ML Darryl F [id number] 00:00:00* Test Item Value Reference Range Interpretation Comme nts TRANSFERRIN (test code = 4936) 385 MG/DL Darryl F AustinIRON BINDING CAPACITY AND IRON AND % [id number] 00:00:00* Test Item Value Reference Range Interpretation Comme nts IRON, SERUM (test code = 2222) 11 UG/DL UNSATURATED IBC (test code = 33435) 442 UG/DL CALC TOTAL IBC (test code = 2077) 453 UG/DL CALC % IRON SAT (test code = 2079) 2 % [id number] 00:00:00* Test Item Value Reference Range Interpretation Comme nts FERRITIN (test code = 5) 3 NG/ML [id number] 00:00:00* Test Item Value Reference Range Interpretation Comme nts TRANSFERRIN (test code = 4936) 385 MG/DL IRON BINDING CAPACITY AND IRON AND % [id number] 00:00:00* Test Item Value Reference Range Interpretation Comme nts IRON, SERUM (test code = 2222) 11 UG/DL UNSATURATED IBC (test code = 21748) 442 UG/DL CALC TOTAL IBC (test code = 2077) 453 UG/DL CALC % IRON SAT (test code = 2079) 2 % [id number] 00:00:00* Test Item Value Reference Range Interpretation Comme nts FERRITIN (test code = 2075) 3 NG/ML [id number] 00:00:00* Test Item Value Reference Range Interpretation Comme nts TRANSFERRIN (test code = 4936) 385 MG/DL TSH, THIRD [id number] 06:15:03* Test Item Value Reference Range Interpretation Comme nts TSH, THIRD GENERATION (test code = 2821) 0.675 UIU/ML 0.400-4.100 UNLESS OTHERWISE INDICATED, ALL TESTING PERFORMED [facility] [address] [place] [address] [employer]: NICOLE GUSMAN M.D. CLIA NUMBER [id number] [facility] [place]. [id number] CBC W/AUTO DIFF WITH [id number] 02:57:36* Test Item Value Reference Range Interpretation [...] 0.00-0.10 ABS NUCLEATED RBCS (test code = 79075) 0.00 K/UL 0.00-0.11 [id number] 00:00:00* Test Item Value Reference Range Interpretation Comme nts TSH, THIRD GENERATION (test code = 2821) 0.675 UIU/ML [facility] [id number] 00:00:00* Test Item Value Reference Range Interpretation [...] ABS NUCLEATED RBCS (test cod e = 64348) 0.00 K/UL Darryl [id number] 00:00:00* Test Item Value Reference Range Interpretation Comme nts TSH, THIRD GENERATION (test code = 2821) 0.675 UIU/ML Darryl WaggonerCBC W/AUTO [id number] 00:00:00* Test Item Value Reference Range Interpretation [...] ABS NUCLEATED RBCS (test cod e = 37189) 0.00 K/UL Darryl [id number] 00:00:00* Test Item Value Reference Range Interpretation Comme nts TSH, THIRD GENERATION (test code = 2821) 0.675 UIU/ML Darryl WaggonerCBC W/AUTO [id number] 00:00:00* Test Item Value Reference Range Interpretation [...] ABS NUCLEATED RBCS (test cod e = 14973) 0.00 K/UL Darryl [id number] 00:00:00* Test Item Value Reference Range Interpretation Comme nts TSH, THIRD GENERATION (test code = 2821) 0.675 UIU/ML Darryl WaggonerCBC W/AUTO [id number] 00:00:00* Test Item Value Reference Range Interpretation [...] ABS NUCLEATED RBCS (test cod e = 20982) 0.00 K/UL Darryl [id number] 00:00:00* Test Item Value Reference Range Interpretation Comme nts TSH, THIRD GENERATION (test code = 2821) 0.675 UIU/ML Darryl WaggonerCBC W/AUTO [id number] 00:00:00* Test Item Value Reference Range Interpretation [...] ABS NUCLEATED RBCS (test cod e = 93802) 0.00 K/UL Darryl Ackerman [id number] 00:00:00* Test Item Value Reference Range Interpretation Comme nts TSH, THIRD GENERATION (test code = 2821) 0.675 UIU/ML [facility] [id number] 00:00:00* Test Item Value Reference Range Interpretation [...] ABS NUCLEATED RBCS (test cod e = 33243) 0.00 K/UL Darryl [id number] 00:00:00* Test Item Value Reference Range Interpretation Comme nts TSH, THIRD GENERATION (test code = 2821) 0.675 UIU/ML Darryl WaggonerCBC W/AUTO [id number] 00:00:00* Test Item Value Reference Range Interpretation [...] ABS NUCLEATED RBCS (test cod e = 09605) 0.00 K/UL Darryl [id number] 00:00:00* Test Item Value Reference Range Interpretation Comme nts TSH, THIRD GENERATION (test code = 2821) 0.675 UIU/ML Darryl WaggonerCBC W/AUTO [id number] 00:00:00* Test Item Value Reference Range Interpretation [...] ABS NUCLEATED RBCS (test cod e = 08872) 0.00 K/UL Darryl WaggonerCBC W/AUTO [id number] 00:00:00* Test Item Value Reference Range Interpretation [...] ABS NUCLEATED RBCS (test cod e = 33352) 0.00 K/UL [id number] 00:00:00* Test Item Value Reference Range Interpretation Comme nts TSH, THIRD GENERATION (test code = 2821) 0.675 UIU/ML CBC W/AUTO [id number] 00:00:00* Test Item Value Reference Range Interpretation [...] ABS NUCLEATED RBCS (test cod e = 49683) 0.00 K/UL [id number] 00:00:00* Test Item Value Reference Range Interpretation Comme nts TSH, THIRD GENERATION (test code = 2821) 0.675 UIU/ML Notes Date/Time Note Provider Source 2025-04-14 11:33:02 Patient given discharge instructions on abdominal pain. Given prescription X 1 for bentyl. Pt advised to follow up with pcp. Pt left ER ambulatory, no signs of distress. [facility] Knowta 2025-04-14 08:08:05 Patient states: "I do have GI issues, gastritis and esophagitis. I had to stop taking the meds because it caused my anemia to be worse. I have zofran and take that. I'm just having sharp stabbing pain." Reports pain started Sunday. [facility] 2025-04-14 07:58:00 [facility] Emergency Department Note Patient Name: Mini Zhu Date of : 1990 34 year old female Treatment Room: [facility] Primary Care Physician: Lorraien Blanco Patient Escorted by: Family [5] Mode of Arrival: Personal means [1] EMS Treatment Prior to ED Arrival: Travel and Exposure Screening: Symptoms Does patient have any of these symptoms?: (not recorded) Exposure Screening Has patient had contact with someone with a communicable disease in the last month?: (not recorded) Diseases exposed to:: (not recorded) Is Patient ?: (not recorded) Exposure Date: (not recorded) Chief Complaint: Chief Complaint Patient presents with Abdominal Pain History of Present Illness: History of Present Illness This is a patient with a history of gastrointestinal issues, including gastritis and esophagitis, presenting with epigastric pain. The patient arrived in the ED on foot. The patient reports that the symptoms began on 04/12/2025, when she started experiencing vomiting episodes. Alongside the vomiting, she describes a persistent, stabbing pain that is most intense in the epigastric region. The pain is consistent and does not completely subside, although it does lessen at times. The patient was previously taking Protonix, but it was discontinued due to its contribution to her anemia. She has not yet consulted her rouge sifter to discuss alternative treatments, with an appointment scheduled for mid-April 2025. Despite trying various anti-nausea medications, she has found them ineffective and has chosen to discontinue their use. The patient mentions that the pain is impacting her ability to care for her child at home. The patient reports that her blood levels are consistently low, and she required a transfusion when they dropped significantly. She is currently taking iron supplements. The patient is on Celexa, Abilify, lithium, and propranolol for bipolar disorder and anxiety. HPI Past Medical History/Immunizations: Past Medical History: Diagnosis Date Bipolar disorder Mastitis Allergies: Allergies Allergen Reactions Buspar [Buspirone] Other - See comments Gives SI thoughts Gabapentin Other - See comments Manic episodes Imitrex [Sumatriptan] Palpitations Rapid heart rate Past Social History: Substance & Sexual Activity No substance use or sexual activity history on file. Past Surgical History: Past Surgical History: Procedure Laterality Date BREAST SURGERY TUBAL LIGATION Review of Systems: Review of Systems Constitutional: Negative for fatigue and fever. Respiratory: Negative for shortness of breath. Cardiovascular: Negative for chest pain. Gastrointestinal: Positive for abdominal pain. Negative for nausea and vomiting. Physical Exam: Physical Exam Gastrointestinal: Epigastric tenderness noted upon palpation. ED Triage Vitals [04/14/25 0810] Weight 81.6 kg (180 lb) Actual or estimated Estimated by patient/family report Height 1.575 m (5' 2") BP 115/80 Pulse 99 Resp 16 Temp 37.3 ?C (99.2 ?F) Temp source Oral SpO2 99 % Measured on Room air Physical Exam Constitutional: General: She is not in acute distress. Appearance: She is well-developed. HENT: Head: Normocephalic and atraumatic. Eyes: Pupils: Pupils are equal, round, and reactive to light. Cardiovascular: Rate and Rhythm: Normal rate. Pulmonary: Effort: Pulmonary effort is normal. Abdominal: General: There is no distension. Tenderness: There is abdominal tenderness (epigastric and LLQ). There is no guarding or rebound. Musculoskeletal: General: Normal range of motion. Cervical back: Normal range of motion. Skin: General: Skin is warm and dry. Neurological: Mental Status: She is alert and oriented to person, place, and time. Radiology: CT Abdomen pelvis w contrast Final Result EXAM: CT ABDOMEN PELVIS W CONTRAST 04/14/2025 9:42 AM HISTORY: 34 years-old Female with Abdominal abscess/infection suspected . COMPARISON: CT abdomen pelvis with contrast 01/17/2025. TECHNIQUE: Contiguous axial imaging from the level of the lung bases through the proximal thighs was performed after the administration of intravenous nonionic iodinated contrast. Abdomen was scanned in venous phase. Corresponding coronal and sagittal MPR reconstructions were obtained. Auto mA and/or iterative reconstruction were used to reduce radiation dose. FINDINGS: LOWER THORAX: The visualized parenchyma of the lingula demonstrate bronchiectasis with mosaic pattern suggestive of a trapping. LIVER AND BILIARY: The liver is normal in size and contour. 1.4 cm hepatic segment 5 hypodensity within the right hepatic lobe, stable since 05/19/2022. The gallbladder appears unremarkable. No radiopaque gallstones are seen. No intra or extrahepatic biliary ductal dilation is visualized. PANCREAS: Normal morphology and enhancement. No ductal dilation or masses are visualized. SPLEEN: The spleen appears unremarkable. ADRENAL GLANDS: No adrenal masses are seen. KIDNEYS, URETERS, AND BLADDER: No solid masses. No stones or hydronephrosis. The bladder is partially decompressed. REPRODUCTIVE ORGANS: Bilateral ovarian follicles are noted. GI TRACT AND PERITONEUM: The small bowel and colon show no gross abnormality. No dilation or bowel wall thickening is seen. The appendix appears unremarkable. No intra-abdominal free air or fluid collection is visualized. VESSELS: Unremarkable. LYMPH NODES: Lymph nodes in the retroperitoneal, mesenteric, and iliac areas are not enlarged. BONES AND SOFT TISSUES: No suspicious sclerotic or lytic osseous lesions. No fractures. IMPRESSION 1. No acute intra-abdominal abnormality. 2. Stable 1.4 cm hepatic segment V hypodensity, indeterminate, favoring benign etiology such as hemangioma. This can be further evaluated with dedicated liver imaging if indicated. 3. Air trapping and bronchiectatic changes in the lingula, may represent sequelae of prior infection. Clinical correlation is recommended. Preliminary Report Dictated by Resident: Alessandra Blake I, Aaliyah Mi MD., have reviewed this study and agree with the above report. Lab Results: Lab Results CBC WITH DIFF - Abnormal Result Value Ref Range WBC 5.61 4.30 - 11.10 10*3/?L RBC 4.21 3.93 - 5.25 10*6/?L HGB 9.1 (*) 11.6 - 15.0 g/dL HCT 31.6 (*) 35.7 - 45.2 % MCV 75.1 (*) 80.6 - 95.5 fL MCH 21.6 (*) 25.9 - 32.8 pg MCHC 28.8 (*) 31.6 - 35.1 g/dL RDW-SD 44.9 39.0 - 49.9 fL RDW-CV 16.6 (*) 12.0 - 15.5 % PLT 327 166 - 358 10*3/?L MPV 9.7 9.5 - 12.9 fL NRBC/100 WBC 0.0 0.0 - 10.0 /100 WBCs NRBC x10 3 <0.01 10*3/?L GRAN MAT (NEUT) % 56.4 % IMM GRAN % 0.20 % LYMPH % 28.9 % MONO % 7.8 % EOS % 6.2 % BASO % 0.5 % GRAN MAT x10 3 (ANC) 3.16 1.88 - 7.09 10*3/uL IMM GRAN x10 3 <0.03 0.00 - 0.06 10*3/uL LYMPH x10 3 1.62 1.32 - 3.29 10*3/uL MONO x10 3 0.44 0.33 - 0.92 10*3/uL EOS x10 3 0.35 0.03 - 0.39 10*3/uL BASO x10 3 0.03 0.01 - 0.07 10*3/uL COMP. METABOLIC PANEL (79729) - Abnormal NA 138 135 - 145 mmol/L K 4.0 3.5 - 5.0 mmol/L CL 110 (*) 98 - 108 mmol/L CO2 TOTAL 22 (*) 23 - 31 mmol/L AGAP 6 2 - 16 BUN 4 (*) 7 - 23 mg/dL GLUCOSE 91 70 - 110 mg/dL CREATININE 0.78 0.50 - 1.04 mg/dL TOTAL BILI 0.3 0.1 - 1.1 mg/dL CALCIUM 8.8 8.6 - 10.6 mg/dL T PROTEIN 7.3 6.3 - 8.2 g/dL ALBUMIN 4.2 3.5 - 5.0 g/dL ALK PHOS 75 34 - 122 U/L ALTv 16 5 - 35 U/L AST(SGOT) 22 13 - 40 U/L eGFR 103.0 mL/min/1.73m2 URINALYSIS - Abnormal APPEARANCE Clear Clear COLOR Yellow Yellow PH 5.0 4.8 - 8.0 SP GRAVITY 1.017 1.003 - 1.030 GLU U QUAL Normal Normal BLOOD 1+ (*) Negative KETONES Negative Negative PROTEIN Negative Negative UROBILIN Normal Normal BILIRUBIN Negative Negative NITRITE Negative Negative LEUK TAMIKO Negative Negative RBC/HPF <1 0 - 3 HPF WBC/HPF 1 0 - 5 HPF BACTERIA Negative Negative MUCOUS Slight (*) Negative LPF SQ EPITH <1 HPF LIPASE - Normal LIPASE 62 0 - 220 U/L POCT TEST EKG: If EKG completed, see Procedure Note. Orders and Treatments: Orders Placed This Encounter Procedures CT Abdomen pelvis w contrast Cbc with Diff Comp. Metabolic Panel (08847) Lipase POCT Test Urinalysis Orders Placed This Encounter Medications ondansetron (ZOFRAN (PF)) injection 4 mg maalox/diphenhydrAMINE:lidoc aine2 %viscous 1:1:1: suspension (COMPOUNDED) iopamidol (ISOVUE 370-500 mL) injection 85 mL dicyclomine 20 mg tablet First Provider Eval: ED Events None ED COURSE Diagnosis/Impression as of 04/14/25 1109 Epigastric pain Results Laboratory Studies Hemoglobin is stable at 9.1. Imaging CT abdomen and pelvis show no acute intra-abdominal abnormalities, stable 1.4 cm hepatic hypodensity favored to be a hemangioma, and some bronchiectasis changes in the lingula. Procedures: Procedures MDM: Assessment & Plan Initial Assessment: The patient's symptoms and clinical presentation were thoroughly evaluated. Laboratory results and imaging studies were reviewed and do not indicate an acute process. The urinalysis is negative. The metabolic panel shows preserved renal function with no elevated transaminases. Hemoglobin levels are stable at 9.1, consistent with her known history of iron deficiency anemia. The CT scan of the abdomen and pelvis does not reveal any acute intra-abdominal abnormalities. It does show a stable 1.4 cm hepatic hypodensity, likely a hemangioma, and some bronchiectasis changes in the lingula. Differential Diagnosis: - Gastritis: History of gastritis. Plan: Symptomatic control. - Esophagitis: History of esophagitis. Plan: Symptomatic control. - Pancreatitis: Epigastric pain. No weight loss medications. Plan: Unlikely. - Iron deficiency anemia: History of anemia. Hemoglobin stable at 9.1. Plan: Continue iron supplements. ED Course: - Labs and imaging reviewed and not consistent with acute process. - UA negative. - Metabolic panel preserved renal function. - No elevated transaminases. - Hemoglobin stable 9.1. - CT abdomen and pelvis consistent with no acute intra-abdominal abnormalities. - Stable 1.4 cm hepatic hypodensity favored to be a hemangioma. - Bronchiectasis changes in the lingula. Final Assessment: Laboratory results and imaging studies reviewed. No acute process identified. Hemoglobin stable at 9.1. CT scan shows stable hepatic hypodensity and bronchiectasis changes. Clinical Impression: - Epigastric pain - Iron deficiency anemia Disposition: - Discharge: Home. No acute abnormalities found. Bentyl prescribed. Return precautions if symptoms worsen. Follow-Up: - Follow up with GI as previously scheduled. Patient Education: - Return precautions given if symptoms worsen as documented in discharge instructions. Medical Decision Making Amount and/or Complexity of Data Reviewed Labs: ordered. Radiology: ordered. Risk Prescription drug management. Flowsheet Documentation: Scoring Tools: No data recorded Disposition/Condition: ED Disposition ED Disposition Discharge Condition Stable Comment -- Discharge Medications: Patient's Medications START taking these medications DICYCLOMINE 20 MG TABLET Take 1 tablet by mouth 4 times daily. CONTINUE taking these medications which have NOT CHANGED ONDANSETRON (ZOFRAN) 4 MG TABLET Take 1 tablet by mouth every 8 (eight) hours as needed for Nausea and Vomiting (N/V). ONDANSETRON 4 MG DISINTEGRATING TABLET Take 1 tablet by mouth every 4 (four) hours as needed for Nausea and Vomiting (N/V). PANTOPRAZOLE 40 MG EC TABLET Take 1 tablet by mouth in the morning. SUMATRIPTAN 50 MG TABLET Take 1 tablet by mouth 3 times daily as needed for Migraine. START taking Modified Medications as Prescribed No medications on file STOP taking these medications No medications on file Follow-up: Contact information for follow-up Lorraine Blanco FNP Specialty: FAMILY MEDICINE Relationship: PCP - General [address] [place] [id number] Instructions: For follow up of the presenting symptoms. [facility] Specialty: Emergency Medicine [address] [place] [id number] Instructions: If symptoms worsen as documented in the discharge Electronically signed by: Hermilo Ricks DO 04/14/25 1109 [facility] 2025-03-09 02:45:01 Pt given printed and verbal [...] steady gait, in no apparent distress, T [facility] 2025-03-08 21:30:20 Pt arrived ambulatory without assist. Pt with her, okay to discuss care with him. Pt c/o migraine that started today and left ovary pain since Sunday. Duyen Pereira RN [facility] 2025-01-27 13:53:03 Pt given printed and verbal [...] steady gait, in no apparent distress, T [facility] 2025-01-27 12:24:45 Patient arrived ambulatory c/o headache that started approximately at midnight associated with vomiting and sensitivity to lights. Patient attempted to take ibuprofen when she vomited the medication. Patient has frequent headaches and diagnosed with chronic migraines. Celina Proctor RN [facility] 2025-01-21 08:15:25 Pt has been scheduled Tanya Velasco [facility] 2025-01-19 13:34:00 Mini Zhu is a 34 year old female Patient returning missed call to schedule PGY appointment. She states she did not have any voicemails. Please advise [facility] 2025-01-17 04:21:41 Awake, alert oriented X4, respiratory [...] the lobby with steady gait. T Senia Narvaez RN [facility] 2025-01-17 02:22:34 Cc: abdominal pain, N/V, and migraine began at 11PM 01/16 T [facility] 2025-01-16 10:05:56 2nd attempt no answer T Tanya Velasco [facility] 2025-01-15 12:25:21 1st attempt to contact pt, no answer [facility] 2025-01-13 10:37:29 Mini Zhu is a 34 year old female Pt calling wanting to r/s her appt that was scheduled for 01/16/25. Please assist [phone] (home) [phone] (work) [facility] 2025-01-05 09:43:48 Pt given printed and verbal [...] distress. Left with spouse. Trista Coronel RN [facility] 2025-01-05 09:27:55 [facility] ED Transfer of Care Note. Off-going [...] components within normal limits COMP. METABOLIC PANEL (38773) - Abnormal; Notable for the following components: [...] Procedures Additional Notes: ED Course as of 01/05/25 0928 SunJan 05, 2025 0548 HGB(!): 9.4 Chronic [PS] ED Course User Index [PS] Hermilo Ricks DO Diagnosis/Impression as of 01/05/25 0928 Acute viral syndrome Nausea vomiting and diarrhea Medical Decision Making Amount and/or Complexity of Data Reviewed Labs: ordered. Decision-making details documented in ED Course. Radiology: ordered. Risk Prescription drug management. Disposition: Discharged Home Social Determinants of Health: None ED Disposition ED Disposition Discharge Condition Stable Comment -- T [facility] 2025-01-05 08:39:35 Patient given ice water to po challenge [facility] Celina Proctor RN [facility] 2025-01-05 07:05:00 Nurse Report Report received from LINA Martines. Chief complaint, assessment findings, and orders reviewed. Plan of care discussed with both nurses. Trista Coronel RN [facility] 2025-01-05 05:35:15 Patient up using the bathroom, ambulated independently with a steady gait. Back to bed, on monitor, updated on plan of care. Call light within reach. Bobbi Siddiqi RN [facility] 2025-01-05 05:09:11 C/o cough, body aches, chills, vomiting, nausea, diarrhea x4 days Feels like she's been running a fever but has no thermometer Jess Gonzalez RN [facility] 2024-12-18 01:21:52 Awake, alert oriented X4, respiratory [...] noted upon discharge Pt ambulated to the [facility] with steady gait O PRODUCTION ASSISTANT Kait Seay RN [facility]2025-03-05 23:49:02 Patient arrived ambulatory to ED c/o right sided migraine that worsened tonight. Oral sx on 12/05, had three teeth taken out. Abx have been finished already. Vomited tonight and made her migraine worse. Patient states Zofran is not working anymore. O PRODUCTION ASSISTANT [facility] [id number] 00:00:00 Darryl Arriaga [facility]2025-02-13 00:00:00 Darryl Arriaga [facility]2025-02-04 22:45:36 Pt given printed and verbal discharge [...] without assist, in no apparent distress, Durand [place] [id number] 20:59:33 CC: R sided jaw pain that radiates down her neck. Pain began at 9PM. Took Ibu 800mg at 2PM, applying warm/cold compress Patel [facility] [id number] 20:55:00 [facility] Emergency Department Note Patient Name: Mini Zhu Date of : 1990 33 year old female Treatment Room: [place] [address] Primary Care Physician: Rachel[facility] Patient Escorted by: Family [5] Mode of Arrival: Personal means [1] EMS Treatment Prior to ED Arrival: OUTSIDE UPHOLSTERER treatment: Other (comment) OUTSIDE UPHOLSTERER treatment comments: See triage note Travel and [...] [facility] [place] for further management prompting ED visit. History provided by: Patient and medical records interpreter used: No Dental Problem Location: Lower [...] (eight) hours as needed for Alternate with [place] for pain scale 1-3. CONTINUE taking these medications which have NOT CHANGED ALBUTEROL 90 MCG/ACTUATION INHALER Inhale 2 Puffs every 4 (four) hours as needed for Wheezing or Shortness of Breath. AZITHROMYCIN (ZITHROMAX Z-RAMESH) 250 MG TABLET Take 2 tablets by mouth SEE-INSTRUCTIONS. Take 500 mg day 1, then 250 mg days 2 to 5. UNOABMRKHS-VHKOSRMHNSZPD-STUX 50-325-40 MG TABLET Take 1 tablet by mouth every 6 (six) hours as needed (Headache). GSIKESXVQE-[id number]-ZAPL 50-325-40 MG TABLET Take 1 tablet by [...] Electronically signed by: Selene Parra MD 11/18/242237 [place] [address]-01-25 22:45:36 ERP MSE patient [place] [address]-01-25 22:35:26 CC: tail bone pain, began today 5PM. Patient states she was horse playing, and got kneed on the tailbone. [facility] Nicole Patel [facility] [id number] 00:00:00 Darryl [facility]2024-11-11 00:00:00 Darryl [facility]2024-10-11 10:46:00 Written/verbal D/c instructions, out of er no distress, [place] [id number] 10:30:00 Pt has had no emesis since arrival [place] 070054-10-11 07:48:10 Mini Zhu is a 33 year old female c/o n/v/d since Sunday, states this morning at 0700 threw up blood, no abdominal pain, states now has a headache, alert cheerful, states hx gastritis, esophagitis and iron def anemia, ran out of pantoprazole and takes iron occasionally. States her bipolar meds aren't staying down either, [facility] Sheila Starkey [facility] [id number] 00:00:00 Darryl Arriaga [facility]2024-09-20 05:48:27 Discharge information given verbally and in writing, including of s/s of when to return to ER Patient denies questions and verbalized understanding. IV discontinued without issue. Pt ambulated off unit with steady gate, vital signs stable, no acute distress. [facility] Jovana Hooper [place] [id number] 02:26:00 Lower abd pain since midnight, and back pain, pt states she has shingles and has been using tropical cream for tx. [place] [id number] 00:00:00 Darryl Arriaga [facility]2024-05-29 06:06:53 Pt given printed and verbal [...] gait, in no apparent distress. Ashly Srivastava [facility] CenterZmwzsc8916-06-26 02:07:22 Pt given urine cup and placed in the lobby, pt advice to notify nurse with any other concerns or if symptoms worsen. [facility] [id number] 02:02:32 C/O states that she began vomited blood X5 since midnight. 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 METABOLIC PANEL (53453) - Abnormal Result Value Ref Range NA [...] BILIRUBIN Negative Negative NITRITE Negative Negative LEUK TAMKIO 75/uL (*) Negative RBC/HPF 2 0 - [...] substances. Risk Details: Will refer to Dr Lyla ROTH Flowsheet Documentation: Scoring Tools: No data recorded [...] then 250 mg days 2 to 5. GESJRIGDPT-OAUFNBGCVOLSN-BDHJ 50-325-40 MG TABLET Take 1 tablet by [...] for follow-up Tommie Arita MD Specialty: IM-GASTROENTEROLOGY [facility] [address] [phone] Electronically signed by: Selene Parra MD 02/03/24 0658 T [facility] - [id number] 00:43:46 Pt given printed and verbal discharge [...] leaving in no apparent distress, Ashly Gibson [facility] [id number] 00:31:47 Pt notified covid test was inconclusive. She refuses additional covid swabbing. She reports continuing head congestion. Dr. Marie in to see pt at this time. [id number] 22:22:36 Pt arrived ambulatory with c/o congestion. Pt states I have bad congestion, sneezing, coughing and headache. No fever. I vomited once prior to coming to the ED." Duyen Pereira [place] [id number] 05:22:47 Awake, alert oriented X4, respiratory even [...] noted upon discharge Pt ambulated to the [facility] with steady gait Kait Seay [place] [id number] 03:48:35 Pt arrived with c/ migraine headache off-and-on for 7 days. Pt took Midol at 6:30pm. Pt report the Midol help for about 30 minutes then the headache came back. Pt states she has tried Ibu, tylenol, and naproxen but none of these medications have helped her migraine. Nicole Patel RNUT - [id number] 03:43:00 [facility] Emergency Department Note Patient Name: Mini Zhu Date of : 1990 33 year old female Treatment Room: [place] [address] Primary Care Physician: Rachelle Ackerman [facility] Patient Escorted by: Family [5] Mode of Arrival: Personal means [1] EMS Treatment Prior to ED Arrival: OUTSIDE UPHOLSTERER treatment: None Travel and Exposure Screening: Symptoms [...] History provided by: Patient and medical records interpreter used: No Headache Pain location: Frontal [...] this encounter. Orders Placed This Encounter Medications rpzvmcfvag-jarzxoolbcjvj-fjck (ESGIC) 50-325-40 mg tablet 1 tablet First Provider Eval: ED Events Date/Time Event User Comments 12/26/23 7956 Medical Screening Begins SELENE PARRA MD -- 12/26/23 0355 First Provider Evaluation SELENE PARRA MD -- [...] Follow-up: Contact information for follow-up Darryl Ackerman [facility], [facility] Relationship: PCP - General [address] [place] [phone] Demetrio Stout MD Specialty: PN-NEUROLOGY [facility] [address] [place] [phone] Electronically signed by: Selene Parra MD 12/26/23439 [facility] - [id number] 10:50:14 Patient discharged home. Follow up with pcp in 2-3 days. Return with worsening symptoms. Verbalized dc instructions. Signed paper work. Davis [place] [id number] 06:42:12 Bilateral lower abdominal pain on and off for month. Pain started this morning at 1230 and hasn't stopped. Saw by OB, US ordered pt unable to pay for it. Was instructed to got to ER if got worse. Vomited 3 time this am [facility] Maliha Paniagua [place] [id number] 01:09:27 Pt given printed and verbal discharge [...] steady gait, in no apparent distress. Peraza [place] [id number] 00:35:00 PO challenge completed. Patient tolerating water and crackers. [place] [id number] 00:06:08 Patient arrived ambulatory to ED c/o vomiting. Patient states vomiting up her dinner and then vomiting "bright red chunks." Diarrhea x a couple of days. No medications taken OUTSIDE UPHOLSTERER. Keen [place] [id number] 00:03:00 [facility] Emergency Department Note Patient Name: Mini Zhu Date of : 1990 32 year old female Treatment Room: Room/bed info not found Primary Care Physician: Rachelle Waggoner [facility] Patient Escorted by: Family [5] Mode of Arrival: Personal means [1] EMS Treatment Prior to ED Arrival: OUTSIDE UPHOLSTERER treatment: None Travel and Exposure Screening: Symptoms [...] 200 mg capsule Comments: Reason for Stopping: nfcnwvoaha-gvquptzakizum-bjcc 50-325-40 mg tablet Comments: Reason for Stopping: megestroL 40 mg tablet Comments: Reason for Stopping: tamsulosin 0.4 mg 24 hr capsule Comments: Reason for Stopping: ketorolac 10 mg tablet Comments: Reason for Stopping: Follow-up: Electronically signed by: Chayo Srivastava DO 11/12/23 0104 [facility]2024-01-13 20:56:44 Pt discharged home, given all education and information regarding s/s of worsening condition; prescription use; pain and fever management as well as the importance of follow up. Pt verbalized understanding. Alert and ambulatory to [facility] with family. [facility] Wilman Felix [facility] [id number] 20:24:32 Pt arrived ambulatory with complaints of viral symptoms x2 days. Pt is positive and she took home test today and is positive too. Pt was concerned because her fever was 101 and her husbands only hit 100f. Pt has n/v but hasn't taken her Zofran. [facility] Cora Peraza [facility] CenterGvchrm1799-89-10 06:48:38 Prescriptions provided Pt verbalized understanding of [...] with steady gait, in no apparent distress. [facility]2023-09-10 05:26:28 Pt arrives ambulatory to ED c/o left sided lower abdominal pain. She reports that she came in last week and was found to have multiple gynecological issues and was given multiple prescriptions which she says has not helped her pain issue. LMP: 06/12/2023 Ashly Srivastava [facility] CenterWatlfh6421-57-21 05:14:00 [facility] Emergency Department Note Patient Name: Mini Zhu Date of : 1990 32 year old female Treatment Room: [facility] [id number] Primary Care Physician: Rachelle Ackerman [facility] Patient Escorted by: Family [5] Mode of Arrival: Personal means [1] EMS Treatment Prior to ED Arrival: OUTSIDE UPHOLSTERER treatment: None Travel and Exposure Screening: Symptoms [...] by: Patient, medical records and significant other interpreter used: No Abdominal Pain Pain location: [...] (three) times daily as needed for Cough. EOTSQDMSTU-RAXFNIMAONIZT-BBNG 50-325-40 MG TABLET Take 1 tablet by [...] Jaime Rebolledo MD Specialty: ORT-ORTHOPAEDIC SURGERY [address] [facility] [phone] Electronically signed by: Selene Parra MD 06/24/23632 T [facility] CenterPoxsbn7047-09-76 01:30:00 Awake, alert oriented X4, respiratory even [...] ambulated to the lobby with steady gait [place] [address]-09-03 23:50:11 C/O head congestion, chest congestion, body aches, sore throat since last Sunday, pt denies any fever. [facility] Kait Seay [place] [address]-09-03 23:45:00 [facility] Emergency Department Note Patient Name: Mini Zhu Date of : 1990 32 year old female Treatment Room: Room/bed info not found Primary Care Physician: Rachelle Ackerman [facility] Patient Escorted by: Family [5] Mode of Arrival: Personal means [1] EMS Treatment Prior to ED Arrival: OUTSIDE UPHOLSTERER treatment: None Travel and Exposure Screening: Symptoms [...] clinic, negative x2. Recent encounters: 1. 06/11/23. [facility] ED. Pelvic pain. PID prophylaxis in ED. US Pelvis, fibroid, right ovarian cyst, notorsion, thickened endometrium 2. 06/11/23. 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 After ED encounter. Previously scheduled appointment. Trichomonas. [...] taking these medications which have NOT CHANGED GJCOTCKZSL-KDVWSPKMWVFNI-ZLYO 50-325-40 MG TABLET Take 1 tablet by [...] Electronically signed by: Michelle Terry MD 06/18/23112 [facility] [id number] 04:46:51 Pt given printed and verbal discharge [...] no apparent distress, accompanied by her . [facility] CenterWqguri6552-60-18 23:09:00 Patient states: "I've been having suprapubic pain for about a week now, worst was since . 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 I took Midol an hour ago for my painbut no relief." T Yenny Blevins [facility] [id number] 23:06:00 [facility] ED Transfer of Care Note. Off-going Physician:ANGELES Lieberman Time of Transfer of Care: 4:29 AM Summary: Mini Zhu is a 32 year old female presenting with chief complaint of Pelvic Pain. Pending prior to disposition: Imaging Current interventions: Medications ondansetron (ZOFRAN (PF)) injection 4 mg (4 mg Slow IV Push Given 06/12/23 0010) NaCl 0.9% (NS) bolus infusion 1,000 mL (0 mL IV Infusion Stopped 06/12/23 0156) ketorolac (TORADOL) injection 30 mg (30 mg Slow IV Push Given 06/12/23 0010) cefTRIAXone (ROCEPHIN) 1,000 mg in NaCl 0.9% (NS) 100 mL MINI-BAG (0 mg IV Piggyback Stopped 06/12/23 0156) morpHINE (4 mg/mL) injection 4 mg (4 mg Slow IV Push Given 8/29/23 0332) doxycycline hyclate (Vibramycin) capsule 100 mg (100 [...] components within normal limits COMP. METABOLIC PANEL (61753) - Abnormal; Notable for the following components: [...] Severe endometrial thickening measuring 2.5 cm. AFC: 93829 RL: 460 End of report. Additional Notes: Diagnosis/Impression as of 06/12/23431 Pelvic pain Right ovarian cyst Intramural leiomyoma of uterus - (Uterine Fibroid) Endometrial hyperplasia Chronic anemia Medical Decision Making Mini Zhu is a 32 year old female whopresents to the ED with pelvic pain Problems Addressed: Chronic anemia: chronic illness or injury Endometrial hyperplasia: chronic illness or injury Details: Will need TUGBOAT OPERATOR follow-up Pt appropriately referred to OB-HOME ENERGY INSPECTOR Intramural leiomyoma of uterus: chronic illness or injury Details: Will need TUGBOAT OPERATOR follow-up Right ovarian cyst: chronic illness or [...] Aysha Chandra MD Specialty: OG-OBSTETRICS & GYNECOLOGY [facility] [address] [place] [address] DR. Lechuga [facility] [address] Selene Parra MD 06/12/23431 T [facility] [id number] 04:02:21 Pt given printed and verbal discharge [...] with steady gait, in no apparent distress. [facility]2023-08-14 01:27:07 Pt vomited approx 200ml of water and bile. No blood noted. [facility]2023-08-14 00:35:04 Pt arrived ambulatory with complaints of one episode of vomiting blood. Pt reports she became nauseated and at first threw up bile but then threw up dark red blood. Pt denies dark stools or excessiveNSAID use. Pt has been having intermittent abdominal pain for a week. Hx: Migraines, Bipolar, Anemia Xuan Peraza [facility]
--- NOTE | 2025-05-25 14:56 | ER ---
Nurse's Notes [facility] Tori Name: Judith Tobar Age: 34 yrs Sex: Female : 1990 Arrival Date: 05/25/2025 Time: 13:05 Bed 10 Private MD: Diagnosis: Presentation: 05/25 13:44 Chief complaint: Patient states: LEFT SIDED CHEST PAIN, SORE THROAT AND PAINFUL dd2 BREATHING THAT BEGAN LAST NIGHT AND TODAY HAS FELT DIZZY. Coronavirus screen: At this time, the client does not indicate any symptoms associated with coronavirus-19. Ebola Screen: No symptoms or risks identified at this time. Initial Sepsis Screen: Does the patient meet any 2 criteria? No. Patient's initial sepsis screen is negative. Does the patient have a suspected source of infection? No. Patient's initial sepsis screen is negative. Risk Assessment: Do you want to hurt yourself or someone else? Patient reports no desire to harm self or others. Onset of symptoms was May 24, 2025 at 22:00. 13:44 Method Of Arrival: Ambulatory dd2 13:44 Acuity: SHABBIR 3 dd2 Triage Assessment: 13:46 General: Appears in no apparent distress. comfortable, Behavior is calm, cooperative, dd2 appropriate for age. Pain: Complains of pain in chest, THROAT. EENT: Reports pain when swallowing. Cardiovascular: Reports chest pain. Respiratory: Reports pain with respiration. 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 - Infectious Disease History:: Denies. - Social history:: Smoking status: Reported history of juuling and/or vaping. Assessment: 14:55 Reassessment: not in lobby when called to room. ll1 Vital Signs: 13:44 BP 117 / 81; Pulse 89; Resp 16; Temp 98; Pulse Ox 98% on R/A; Weight 79.38 kg; Height 5 dd2 ft. 2 in. ; Pain 8; 13:44 Body Mass Index 32.01 (79.38 kg, 157.48 cm) dd2 13:44 Pain Scale: Adult dd2 ED Course: 13:10 Patient arrived in ED. im 13:12 Summer Hamilton PA-C is PHCP. sb4 13:12 Dick Angulo MD is Attending Physician. sb4 13:46 Triage completed. dd2 13:46 Arm band placed on right wrist. dd2 Administered Medications: No medications were administered Outcome: 14:56 Patient left the ED. ll1 Signatures: Maria M Sanchez RN RN ll1 Summer Hamilton PA-C PA-C sb4 Shayy Miner md2 Stephanie Duckworth DIANA, RN RN dd2 Corrections: (The following items were deleted from the chart) 13:54 13:52 Radiology exam delayed due to test not completed at this time. pam orozco
[2025-05-25 15:32] VITALS: BP 117/81; TEMP 98; O2SAT 98
--- NOTE | 2025-05-26 14:56 | EDPHYS ---
Physician Documentation [facility] Name: Judith Tobar Age: 34 yrs Sex: Female : 1990 Arrival Date: 05/25/2025 Time: 13:05 Bed 10 Private MD: HANNAH Physician Dick Angulo BROKE HANDLER: 05/25 13:46 LMP 05/12/2025, unknown dd2 Historical: - Allergies: 13:46 Imitrex; dd2 13:46 GABAPENTIN; dd2 13:46 BuSpar; dd2 - PMHx: 13:46 Anemia; Anxiety; Bipolar disorder; Esophagitis (Unknown); gastritis (Unknown); dd2 insommnia; - PSHx: 13:46 breast surgery due to mastitis; tubal; dd2 - Immunization history:: Adult Immunizations up to date. - Infectious Disease History:: Denies. - Social history:: Smoking status: Reported history of juuling and/or vaping. Vital Signs: 13:44 BP 117 / 81; Pulse 89; Resp 16; Temp 98; Pulse Ox 98% on R/A; Weight 79.38 kg; Height 5 dd2 ft. 2 in. ; Pain 8/10; 13:44 Body Mass Index 32.01 (79.38 kg, 157.48 cm) dd2 13:44 Pain Scale: Adult dd2 MDM: 13:13 Medical Screening Exam initiated sb4 15:19 ED course: patient eloped after triage, prior to my evaluation. sb4 Administered Medications: No medications were administered Disposition: 15:19 Chart complete. sb4 Disposition Summary: 05/25/25 14:56 Eloped Notes: Disposition: before being seen by provider ll1 Reason: unknown ll1 Addendum: 05/28/2025 14:38 Co-signature as Attending Physician, Dick Angulo MD I agree with the assessment and c rodriguez plan of care. Signatures: Dispatcher [employer] EDDick Avina MD MD cha Lewis, Lynsay, RN RN ll1 Summer Hamilton, PA-C PARamilaC sb4 MADDIE SARMIENTO RN RN dd2
== END 2025-05-25 14:56 | disposition left against medical advice (07) ==
LOC: ER 13:05
DX: Z53.21 Procedure and treatment not carried out due to patient leaving prior to being seen by health care provider (principal)
CPT/HCPCS: 99281

== ENCOUNTER 2025-06-03 21:13 | Emergency (ER) | payer SELFPAY ==
--- OUTSIDE RECORDS SUMMARY | 2025-06-03 21:26 | XMS REPORT | Continuity of Care Document ---
Author Name Unknown Address [address] [facility] [address] [place] [address] [facility] [place] Address [address] [facility] [address] [place] [address] Care Team Providers Care Partridge Farmer Name Role Phone Liratj CURRAN, Ashley Primary Care Physician [phone] Nurse, Dat Rmchp Rgv Cprit Obgyn Attending Clini zenobia Unavailable Matteo LEONARD, Lesa Frederick Attending Clinician HERMILO RICKS Attending Clinician Unavailable HERMILO RICKS Attending Clinician Unavailable DONI MARIE Attending Clinician Unavailable DONI MARIE Attending Clinician Unavailable Pgy4 Attending Clinician Unavailable Kaye House MD Attending Clinician [phone] PATRICE HOLLAND Attending Clinician Unavailab Patrice Nevarez MD Attending Clinician + [phone] SELENE PARRA Attending Clinician Unavailable SELENE PARRA Attending Clinician Unavailable Selene Parra MD Attending Clinician [phone] Hermilo Ricks DO Attending Clinician +[phone] Doni Marie MD Attending Clinician +[phone] GABY TERRY Attending Clinician Unavailab shanna Terry WHANAU SUPPORT WORKER, Gaby Attending Clinician [phone] CHRISTY RG Attending Clinician Unavailable CHRISTY RG Attending Clinician Unavailable Landy CLEVELAND, Christy Matthews Attending Clinician +[phone] CHAYO SRIVASTAVA Attending Clinician Unavailab Chayo Davis DO Attending Clinician [phone] Kavita OJEDA Attending Clinician Unavailable Rusty PAC, Kavita Rowe Attending Clinician [phone] Rama GUZMANP, Danie Ackerman Attending Clinician [phone] MEMO RESENDIZ Attending Clinician Unavailable Memo Resendiz MD Attending Clinician [phone] DANII ARRIAGA Attending Clinician Unavailable Rose Hoff MD Attending Clinician [phone] Danii Ferrer Attending Clinician +[phone] MICHELLE TERRY Attending Clinician UnavailMichelle Evans MD Attending Clinician + [phone] RAVEN LIEBERMAN Attending Clinician Unavailable Liebermanmolly OSORIO, Raven S Attending Clinician [phone] Doctor Unassigned, [place] Attending Clinician U SURAJ Blanca Attending Clinician UnavailSuraj Kee MD Attending Clinician + [phone] CAT RUTLEDGE Attending Clinician Unavailable LISA TRAN Attending Clinician Unavailable Lisa Cruz Attending Clinician + [phone] CL GATES Attending Clinician Unavailable ROCHELLE GOLD [...] Number Effective Date Expirati on Date Source [facility] [id number] 2023 00:00:00 Problems Condition Name Condition Details Condition Category Status Onset Date Resolution Date Last Treatment Date Treating Clinician Comments Source Acute nonintract able headache, unspecifie d headache type Acute nonintract able headache, unspecifie d headache type Disease Active 3- 00:00: 00 [facility] Other migraine without status migrainosu s, not intractabl e Other migraine without status migrainosu s, not intractabl e Disease Active 3 00:00: 00 [facility] Lower abdominal pain Lower abdominal pain Disease Active 1- 00:00: 00 [facility] Ureterolit hiasis Ureterolit hiasis Disease Active 8- 00:00: 00 [facility] No known active problems No known active problems Disease [facility] Allergies, Adverse Reactions, Alerts Allergy Name Allergy Type Status Severity Reaction(s) Onset Date Inactive Date Treating Clinician Comments Source SUMATRIP FRANKS DRUG INGREDI Active Palpitations 04-14 00:00: 00 [facility] Sumatrip franks Propensi ty to adverse reaction s Active Palpitations 04-14 00:00: 00 Rapid heart rate [facility] BUSPIRON E DRUG INGREDI Active Other-Cmnt 12-17 00:00: 00 [facility] Buspiron e Propensi ty to adverse reaction s Active Other - See comments 12-17 00:00: 00 Gives SI thoughts [facility] GABAPENT IN DRUG INGREDI Active Other-Cmnt 2022-10 0 00:00: 00 [facility] Gabapent in Propensi ty to adverse reaction s Active Other - See comments 2022-10 0 00:00: 00 Manic episodes [facility] NO KNOWN ALLERGIE S Drug Class Active [facility] Social History Social Habit Start Date Stop Date Quantity Comments Source ASSERTION Possible [facility] Gender identity [facility] Sexual orientation U [facility] History of Social function 2025-02-04 00:00:00 2025-02-04 00:00:00 [facility] Exposure to SARS-CoV-2 (event) 2023-02-24 00:00:00 2023-03-06 22:59:00 Not sure [facility] Sex assigned at 1990 00:00:00 1990 00:00:00 [facility] Smoking Status Start Date Stop Date Source Tobacco smoking consumption unknown [facility] Medications Ordered Medication Name Filled Medication Name Start Date Stop Date Current Medication? Ordering Clinician Indication Dosage Frequency Signature (SIG) Comments Components Source iopamidol (ISOVUE 370-500 mL) injection 85 mL 04-14 15:45: 00 04-14 15:45 :00 No [id number] 85mL 85 mL, Intravenou s, ONCE, 1 dose, On Sun04/14/25 at 1045, Routine [facility] maalox/diph enhydrAMINE :lidocaine2 %viscous 1:1:1: suspension (COMPOUNDED ) 04-14 13:30: 00 04-14 13:45 :00 No 15mL 15 mL, Oral, ONCE, 1 dose, On Sun04/14/25 at 0830, Routine [facility] dicyclomine 20 mg tablet 04-14 00:00: 00 Yes [id number] 20mg Take 1 tablet by mouth 4 times daily. [facility] NaCl 0.9% (NS) bolus infusion 1,000 mL 03-09 06:30: 00 03-09 07:43 :00 No 1000mL at 999 mL/hr, 1,000 mL, IV Infusion, ONCE, 1 dose, On Sun03/09/25 at 0130, STAT [facility] methylpredn isolone sod succ (SOLU-MEDRO L) injection 125 mg 03-09 06:30: 00 03-09 05:37 :00 No 125mg 125 mg, Slow IV Push, ONCE NOW, 1 dose, On Sun03/09/25 at 0130, NICOLASA [facility] magnesium sulfate in D5W 1 gram/100 mL RTU IV Piggyback 1 g 03-09 06:30: 00 03-09 06:39 :00 No 1g 1 g, IV Piggyback, ONCE, 1 dose, On 03/09/25 at 0130, Administer over 60 Minutes, 100 mL [facility] ondansetron (ZOFRAN (PF)) injection 4 mg 03-09 04:00: 00 03-09 03:15 :00 No 4mg 4 mg, Slow IV Push, ONCE, 1 dose, On Sun03/08/25 at 2300, 2 mL [facility] ketorolac (TORADOL) injection 30 mg 03-09 04:00: 00 03-09 03:16 :00 No 30mg 30 mg, Slow IV Push, ONCE, 1 dose, On Sun03/08/25 at 2300, NICOLASA [facility] caffeine tablet 200 mg caffeine tablet 200 mg 03-09 03:00: 00 03-09 03:31 :00 Yes 200mg 200 mg, Oral, Once, 1 dose, On Sun03/08/25 at 2200, NICOLASA [facility] diphenhydrA MINE (BENADRYL) injection 25 mg 03-09 03:00: 00 03-09 03:16 :00 No 25mg 25 mg, Slow IV Push, ONCE, 1 dose, On Sun03/08/25 at 2200, STAT [facility] SUMAtriptan 50 mg tablet 03-09 00:00: 00 Yes [id number] 50mg Take 1 tablet by mouth 3 times daily as needed for Migraine. [facility] Lidocaine (LIDOCARE) 4 % patch 1 Patch 01-27 18:30: 00 01-28 06:29 :00 No 1{patch } 1 Patch, Topical, Administer over 12 Hours, ONCE, 1 dose, On Sun01/27/25 at 1330, Routine [facility] ketorolac (TORADOL) injection 30 mg 01-27 18:15: 00 01-27 17:57 :00 No 30mg 30 mg, Slow IV Push, ONCE, 1 dose, On Sun01/27/25 at 1315, Routine [facility] methocarbam oL (ROBAXIN) tablet 1,000 mg 01-27 17:45: 00 01-27 17:52 :00 No 1000mg 1,000 mg, Oral, ONCE, 1 dose, On Sun01/27/25 at 1245, NICOLASA [facility] diphenhydrA MINE (BENADRYL) injection 12.5 mg 01-27 17:45: 00 01-27 17:55 :00 No 12.5mg 12.5 mg, Slow IV Push, ONCE, 1 dose, On Sun01/27/25 at 1245, STAT [facility] metoclopram farzana HCl (REGLAN) injection 10 mg 01-27 17:45: 00 01-27 17:57 :00 No 10mg 10 mg, Slow IV Push, ONCE, 1 dose, On Sun01/27/25 at 1245, NICOLASA [facility] methocarbam oL 500 mg tablet 01-27 00:00: 00 02-04 00:00 :00 No [id number] 4 500mg Take 1 tablet by mouth 4 (four) times daily for 10 days. [facility] methylPREDN ISolone 4 mg tablets 01-27 00:00: 00 02-04 00:00 :00 No [id number] 4 Take by mouth SEE-INSTRU CTIONS. follow package directions [facility] lidocaine 5 % (700 mg/patch) patch 01-27 00:00: 00 02-04 00:00 :00 No [id number] 4 1{patch } Apply 1 Patch to area(s) in the morning for 30 doses. [facility] iopamidol (ISOVUE 370-500 mL) injection 85 mL 01-17 09:30: 00 01-17 09:30 :00 No [id number] 85mL 85 mL, Intravenou s, ONCE, 1 dose, On 01/17/25 at 0430, Routine [facility] ketorolac (TORADOL) injection 30 mg 01-17 09:15: 01-17 08:15 :00 No 30mg 30 mg, Slow IV Push, ONCE, 1 dose, On Sun01/17/25 at 0415, Routine [facility] metoclopram farzana HCl (REGLAN) injection 10 mg 01-17 08:15: 01-17 08:16 :00 No 10mg 10 mg, Slow IV Push, ONCE, 1 dose, On 01/17/25 at 0315, NICOLASA [facility] diphenhydrA MINE (BENADRYL) injection 25 mg 01-17 08:15: 01-17 08:16 :00 No 25mg 25 mg, Slow IV Push, ONCE, 1 dose, On 01/17/25 at 031, STAT [facility] Nitrofurant oin&Nit. Macrocryst (MACROBID) 100 mg capsule 01-17 00:00: 00 02-04 00:00 :00 No [id number] 100mg Take 1 capsule by mouth in the morning and 1 capsule in the evening. [facility] iopamidol (ISOVUE 370-500 mL) injection 85 mL 01-05 13:15: 01-05 13:15 :00 No [id number] 85mL 85 mL, Intravenou s, ONCE, 1 dose, On Sun01/05/25 at 0815, Routine [facility] NaCl 0.9% (NS) bolus infusion 1,000 mL 01-05 12:00: 01-05 14:39 :00 No 1000mL at 999 mL/hr, 1,000 mL, IV Piggyback, ONCE, 1 dose, On Sun01/05/25 at 0700, STAT [facility] NaCl 0.9% (NS) bolus infusion 1,000 mL 01-05 11:15: 00 01-05 10:56 :00 No 1000mL at 999 mL/hr, 1,000 mL, IV Piggyback, ONCE, 1 dose, On Sun01/05/25 at 0615, STAT [facility] ondansetron (ZOFRAN (PF)) injection 4 mg 01-05 11:00: 00 01-05 10:58 :00 No 4mg 4 mg, Slow IV Push, ONCE, 1 dose, On Sun01/05/25 at 0600, Administer over 2-5 Minutes, 2 mL [facility] butalbital- acetaminoph en-caff (ESGIC) 50-325-40 mg tablet 1 tablet 12-18 06:00: 00 12-18 06:24 :00 No 1{tbl} 1 tablet, Oral, ONCE, 1 dose, On Sun12/18/24 at 0000, NICOLASA [facility] diphenhydrA MINE (BENADRYL) injection 25 mg 12-18 06:00: 00 12-18 06:24 :00 No 25mg 25 mg, Slow IV Push, ONCE, 1 dose, On Ashley 12/18/24 at 0000, [facility] metoclopram farzana HCl (REGLAN) injection 10 mg 12-18 06:00: 00 12-18 06:24 :00 No 10mg 10 mg, Slow IV Push, ONCE, 1 dose, On Ashley 12/18/24 at 0000, [facility] metoclopram farzana 10 mg tablet 12-18 00:00: 00 Yes 1mg Darryl Waggoner pantoprazol e 40 mg tablet,renny yed release - 00:00: 00 Yes 1mg Darryl Waggoner ondansetron 8 mg disintegrat ing tablet - 00:00: 00 Yes 1mg aDrryl Waggoner HYDROcodone -acetaminop hen (NORCO) 10-325 mg tablet 1 tablet - 05:30: 00 11-19 04:43 :00 No 1{tbl} 1 tablet, Oral, ONCE NOW, 1 dose, On Sun11/18/24 at 2330, Routine [facility] amoxicillin (TRIMOX) capsule 500 mg 11-19 04:30: 00 11-19 04:43 :00 No 500mg 500 mg, Oral, ONCE, 1 dose, On Sun11/18/24 at 2230, NICOLASA, Reason for Anti-Infec tive: Documented Infection, Documented Infection Site: HEENT, Duration of Therapy: Once (ED) [facility] ibuprofen 800 mg tablet 2- 00:00: 00 02-04 00:00 :00 No [id number] 800mg Take 1 tablet by mouth every 8 (eight) hours as needed for Alternate with [place] for pain scale 1-3. [facility] amoxicillin 500 mg capsule 11-18 00:00: 00 02-04 00:00 :00 No [id number] 500mg Take 1 capsule by mouth in the morning and 1 capsule at noon and 1 capsule in the evening. [facility] Bromfed DM 2 mg-30 mg-10 mg/5 mL oral syrup 1-08 00:00: 00 Yes 10mg/5 mL [facility] Waggoner metoclopram farzana HCl (REGLAN) injection 10 mg 2023-10 13:15: 00 07-25 13:23 :00 No 10mg 10 mg, Slow IV Push, ONCE, 1 dose, On Sun07/25/24 at 0815, NICOLASA [facility] pantoprazol e 40 mg EC tablet 2023-10 00:00: 00 Yes [id number] 40mg Take 1 tablet by mouth in the morning. [facility] metoclopram farzana HCl 10 mg tablet 2023-10 00:00: 00 02-04 00:00 :00 No [id number] 10mg Take 1 tablet by mouth every 6 (six) hours. [facility] iopamidol (ISOVUE 370-500 mL) injection 85 mL 9-20 09:45: 00 07-04 09:45 :00 No [id number] 85mL 85 mL, Intravenou s, ONCE, 1 dose, On Sun07/04/24 at 0445, Routine [facility] ketorolac (TORADOL) injection 30 mg 07-04 09:15: 00 07-04 08:27 :00 No 30mg 30 mg, Slow IV Push, ONCE, 1 dose, On Sun07/04/24 at 0415, Routine [facility] Lidocaine Viscous 2 % [...] ONCE, 1 dose, [facility]03/12/24 [facility] 0545[facility] (REGLAN) injection 10 mg 03-12 10:45: 00 03-12 10:52 :00 No 10mg 10 mg, Slow IV Push, ONCE, 1 dose, On Sun03/12/24 at 0545, NICOLASA [facility] iopamidol (ISOVUE 370-500 mL) injection 100 mL 03-12 10:15: 00 03-12 10:15 :00 No [id number] 100mL 100 mL, Intravenou s, ONCE, 1 dose, On Sun03/12/24 at 0515, Routine [facility] ketorolac (TORADOL) injection 30 mg 03-12 10:00: 00 03-12 09:01 :00 No 30mg 30 mg, Slow IV Push, ONCE, 1 dose, On Sun03/12/24 at 0500, Routine [facility] NaCl 0.9% (NS) IV infusion 1,000 mL 03-12 09:45: 00 03-12 10:39 :00 No 1000mL at 999 mL/hr, Intravenou s, ONCE, 1 dose, On Sun03/12/24 at 0445, Routine [facility] ondansetron (ZOFRAN (PF)) injection 4 mg 03-12 09:00: 00 03-12 09:01 :00 No 4mg 4 mg, Slow IV Push, ONCE, 1 dose, On Sun03/12/24 at 0400, NICOLASA [facility] butalbital- acetaminoph en-caff 50-325-40 mg tablet 03-12 00:00: 00 02-04 00:00 :00 No [id number] 1{tbl} Take 1 tablet by mouth every 6 (six) hours as needed (Headache) . [facility] dicyclomine 20 mg tablet 03-12 00:00: 00 02-04 00:00 :00 No [id number] 20mg Take 1 tablet by mouth every 6 (six) hours as needed for Abdominal pain. [facility] metoclopram farzana HCl 10 mg tablet 03-12 00:00: 00 07-25 00:00 :00 No [id number] 10mg Take 1 tablet by mouth every 6 (six) hours. [facility] ondansetron HCl 4 mg tablet 03-06 00:00: 00 Yes 1mg Darryl Waggoner iopamidol (ISOVUE 370-500 mL) injection 85 mL 02-02 11:00: 00 02-02 11:00 :00 No [id number] 85mL 85 mL, Intravenou s, ONCE, 1 dose, On Sun02/03/24 at 0600, Routine [facility] FENTanyl PF (SUBLIMAZE (PF)) injection 50 mcg 02-02 10:30: 00 02-02 09:52 :00 No 50ug 50 mcg, Slow IV Push, ONCE, 1 dose, On 4/21/24 at 0530, Routine [facility] metoclopram farzana HCl (REGLAN) injection 10 mg 02-02 09:30: 00 02-02 09:52 :00 No 10mg 10 mg, Slow IV Push, ONCE, 1 dose, On Sun02/03/24 at 0430, NICOLASA [facility] pantoprazol e (PROTONIX) injection 40 mg 02-02 09:30: 00 02-02 09:53 :00 No 40mg 40 mg, Slow IV Push, ONCE, 1 dose, On Sun02/03/24 at 0430 [facility] dicyclomine 20 mg tablet 02-02 00:00: 00 02-04 00:00 :00 No [id number] 20mg Take 1 tablet by mouth every 6 (six) hours as needed for Abdominal pain. [facility] metoclopram farzana HCl 10 mg tablet 02-02 00:00: 00 07-25 00:00 :00 No [id number] 10mg Take 1 tablet by mouth every 6 (six) hours. [facility] pantoprazol e (PROTONIX) 40 mg EC tablet 02-02 00:00: 00 07-25 00:00 :00 No [id number] 40mg Take 1 tablet by mouth in the morning. [facility] loratadine (CLARITIN) tablet 10 mg 01-01 06:30: 00 01-01 18:29 :00 No 10mg 10 mg, Oral, ONCE, 1 dose, On Sun01/02/24 at 0130, NICOLASA [facility] azithromyci n (ZITHROMAX) tablet 500 mg 01-01 05:45: 00 01-01 05:39 :00 No 500mg 500 mg, Oral, ONCE, 1 dose, On Sun01/02/24 at 0045, NICOLASA
Re ason for Anti-Infec tive: Documented Infection< br>Documen zoila Infection Site: HEENT
D uration of Therapy: Once (ED) [facility] azithromyci n (ZITHROMAX Z-RAMESH) 250 mg tablet 01-01 00:00: 00 02-04 00:00 :00 No [id number] 500mg Take 2 tablets by mouth SEE-INSTRU CTIONS. Take 500 mg day 1, then 250 mg days 2 to 5. [facility] loratadine- pseudoephed rine (CLARITIN-D 24 HOUR) 10-240 mg per 24 hr tablet 01-01 00:00: 00 02-04 00:00 :00 No [id number] 1{tbl} Take 1 tablet by mouth in the morning. [facility] dextrometho rphan-guaif enesin 10-100 mg/5 mL solution 01-01 00:00: 00 02-04 00:00 :00 No [id number] 10mL Take 10 mL by mouth every 6 (six) hours as needed for Cough. [facility] butalbital- acetaminoph en-caff (ESGIC) 50-325-40 mg tablet 1 tablet 12-25 09:15: 00 12-25 09:09 :00 No 1{tbl} 1 tablet, Oral, ONCE, 1 dose, On Sun12/26/23 at 0415, NICOLASA [facility] butalbital- acetaminoph en-caff 50-325-40 mg tablet 12-25 00:00: 00 02-04 00:00 :00 No [id number] 1{tbl} Take 1 tablet by mouth every 6 (six) hours as needed (Headache) . [facility] ketorolac (TORADOL) injection 30 mg 11-20 17:15: 00 11-20 16:28 :00 No 30mg 30 mg, Slow IV Push, ONCE, 1 dose, On Sun11/20/23 at 1115, NICOLASA [facility] iopamidol (ISOVUE 370-500 mL) injection 80 mL 11-20 14:30: 00 11-20 14:45 :00 No [id number] 80mL 80 mL, Intravenou s, ONCE, 1 dose, On Sun11/20/23 at 0845, Routine [facility] NaCl 0.9% (NS) bolus infusion 1,000 mL 11-20 14:15: 00 11-20 16:26 :00 No 1000mL at 999 mL/hr, 1,000 mL, IV Infusion, ONCE, 1 dose, On Sun11/20/23 at 0815, STAT [facility] ondansetron 4 mg disintegrat ing tablet 11-20 00:00: 00 Yes [id number] 4mg Take 1 tablet by mouth every 4 (four) hours as needed for Nausea and Vomiting (N/V). [facility] cephALEXin (KEFLEX) 500 mg capsule 11-20 00:00: 00 02-04 00:00 :00 No [id number] 500mg Take 1 capsule by mouth in the morning and 1 capsule at noon and 1 capsule in the evening. [facility] naproxen 500 mg tablet 11-20 00:00: 00 12-01 05:59 :00 No [id number] 500mg Take 1 tablet by mouth in the morning and 1 tablet in the evening. Take with meals. Do all this for 10 days. [facility] maalox:diph enhydrAMINE :lidocaine 2 % viscous 1:1:1 ([facility]) oral suspension 15 mL 11-12 07:00: 00 11-12 06:55 :00 No 15mL 15 mL, Oral, ONCE, 1 dose, On Sun11/12/23 at 0100, Routine [facility] ondansetron (ZOFRAN-ODT ) disintegrat ing tablet 4 mg 11-12 07:00: 00 11-12 06:16 :00 No 4mg 4 mg, Oral, ONCE, 1 dose, On Sun11/12/23 at 0100, Routine [facility] benzonatate 200 mg capsule 10-27 00:00: 00 Yes [id number] 200mg Take 1 capsule by mouth 3 (three) times daily as needed for Cough for up to 20 doses. [facility] ibuprofen 600 mg tablet 10-27 00:00: 00 Yes [id number] 600mg Take 1 tablet by mouth every 6 (six) hours as needed for Pain (scale 4-6). [facility] ondansetron 4 mg disintegrat ing tablet 10-27 00:00: 00 11-20 00:00 :00 No [id number] 4mg Take 1 tablet by mouth every 8 (eight) hours as needed for Nausea and Vomiting (N/V). [facility] lactulose (CEPHULAC) solution 30 mL 2022-10 01:45: 00 09-09 02:36 :00 No 30mL 30 mL, Oral, ONCE, 1 dose, On 09/08/23 at 1945, NICOLASA [facility] dexamethaso ne (DECADRON PHOSPHATE) injection 10 mg 2022-10 01:30: 00 09-09 02:40 :00 No 10mg 10 mg, Oral, ONCE, 1 dose, On 09/08/23 at 1930, Routine [facility] ketorolac (TORADOL) injection 30 mg 2022-10 01:30: 00 09-09 02:40 :00 No 30mg 30 mg, Intramuscu lar, ONCE, 1 dose, On 09/08/23 at 1930, Routine [facility] ketorolac 10 mg tablet 2022-10 00:00: 00 11-12 00:00 :00 No [id number] 10mg Take 1 tablet by mouth every 6 (six) hours as needed for Pain (scale 7-10). [facility] glycerin/mi neral oil, AGLO ENEMA, Enem 2022-10 00:00: 00 11-12 00:00 :00 No [id number] 225mL Insert 225 mL into rectum as needed for Constipati on. [facility] cefdinir 300 mg capsule 2022-10 00:00: 00 09-16 05:59 :00 No [id number] 300mg Take 1 capsule by mouth every 12 (twelve) hours for 7 days. [facility] lactulose 10 gram/15 mL solution 2022-10 00:00: 00 09-14 05:59 :00 No [id number] 15mL Take 15 mL by mouth in the morning for 5 days. [facility] HYDROcodone -acetaminop hen (NORCO 5) 5-325 mg tablet 1 tablet 2022-10 13:15: 00 09-07 13:33 :00 No 1{tbl} 1 tablet, Oral, ONCE, 1 dose, On Sun09/07/23 at 0715, [facility] diazePAM (VALIUM) tablet 5 mg 2022-10 13:15: 09-07 13:33 :00 No 5mg 5 mg, Oral, ONCE, 1 dose, On Sun09/07/23 at 0715, [facility] dexamethaso ne sod phos PF injection 10 mg 2022-10 13:15: 00 09-07 13:33 :00 No 10mg 10 mg, Oral, ONCE, 1 dose, On Sun09/07/23 at 0715, 1 mL [facility] methocarbam oL 750 mg tablet 2022-10 00:00: 00 11-12 00:00 :00 No [id number] 750mg Take 1 tablet by mouth every 6 (six) hours as needed for Pain (scale 1-3). [facility] ondansetron (ZOFRAN (PF)) injection 4 mg 2022-10 02:00: 00 09-04 02:30 :00 No 4mg 4 mg, Slow IV Push, ONCE, 1 dose, On Sun09/03/23 at 1999, [facility] meclizine (TRAVEL-EAS E (MECLIZINE) ) tablet 50 mg 2022-10 02:00: 00 09-04 02:30 :00 No 50mg 50 mg, Oral, ONCE, 1 dose, On Sun09/03/23 at 1999, [facility] ondansetron (ZOFRAN) 4 mg tablet 2022-10 00:00: 00 Yes [id number] 4mg Take 1 tablet by mouth every 8 (eight) hours as needed for Nausea and Vomiting (N/V). [facility] meclizine 25 mg tablet 2022-10 00:00: 00 11-12 00:00 :00 No [id number] 25mg Take 1 tablet by mouth every 6 (six) hours. [facility] ondansetron (ZOFRAN-ODT ) disintegrat ing tablet 4 mg 2022-10 08:30: 00 07-26 07:45 :00 No 4mg 4 mg, Oral, ONCE, 1 dose, On Ashley 07/26/23 at 0330, Routine [facility] proMETHazin e 25 mg tablet 2022-10 00:00: 00 09-03 00:00 :00 No [id number] 12.5mg Take 0.5 tablets by mouth every 6 (six) hours as needed for Nausea and Vomiting (N/V). [facility] loratadine 10 mg tablet 2022-10 00:00: 00 02-04 00:00 :00 No [id number] 10mg Take 1 tablet by mouth at bedtime as needed for Allergies or Runny nose. [facility] albuterol 90 mcg/actuati on inhaler 2022-10 00:00: 00 02-04 00:00 :00 No [id number] 2{puff} Inhale 2 Puffs every 4 (four) hours as needed for Wheezing or Shortness of Breath. [facility] benzonatate 200 mg capsule 2022-10 00:00: 00 11-12 00:00 :00 No [id number] 200mg Take 1 capsule by mouth 3 (three) times daily as needed for Cough. [facility] fluticasone propionate 50 mcg/actuati on nasal spray 2022-10 00:00: 00 11-12 00:00 :00 No [id number] 2{spray } Use 2 Sprays in each nostril in the morning. [facility] predniSONE 20 mg tablet 2022-10 0-11 00:00: 00 07-31 04:59 :00 No [id number] 40mg Take 2 tablets by mouth in the morning for 5 days. [facility] TAKE 1 TABLET DAILY. 2022-10 00:00: 00 01-30 00:00 :00 No 10 [facility]aggoner ibuprofen 800 mg tablet 07-12 00:00: 00 11-12 00:00 :00 No [id number] 800mg Take 1 tablet by mouth every 8 (eight) hours. [facility] methylPREDN ISolone sodium succinate (SOLU-MEDRO L) injection 125 mg 06-24 17:00: 00 06-24 11:35 :44 No 125mg 125 mg, Intramuscu lar, Q6H, First dose on Sun06/24/23 at 1200, Until Discontinu ed, Routine [facility] gabapentin 300 mg capsule 06-24 00:00: 00 11-12 00:00 :00 No [id number] 300mg Take 1 capsule by mouth in the morning and 1 capsule at noon and 1 capsule in the evening. [facility] codeine-gua ifenesin (ROBITUSSIN AC) 10-100 mg/5 mL oral solution 10 mL 06-18 06:15: 00 06-18 06:23 :00 No 10mL 10 mL, Oral, ONCE, 1 dose, On Sun06/18/23 at 0115, NICOLASA [facility] azithromyci n (ZITHROMAX) tablet 500 mg 06-18 06:15: 00 06-18 06:24 :00 No 500mg 500 mg, Oral, ONCE, 1 dose, On Sun06/18/23 at 0115, NICOLASA
Re ason for Anti-Infec tive: Documented Infection< br>Documen zoila Infection Site: Respirator y
Durat ion of Therapy: 7 days [facility] benzonatate 200 mg capsule 06-18 00:00: 00 11-12 00:00 :00 No [id number] 200mg Take 1 capsule by mouth 3 (three) times daily as needed for Cough. [facility] azithromyci n 250 mg tablet 06-18 00:00: 00 09-03 00:00 :00 No [id number] 250mg Take 1 tablet by mouth SEE-INSTRU CTIONS. Take 500 mg day 1, then 250 mg days 2 to 5. [facility] ondansetron 4 mg tablet 06-18 00:00: 00 09-03 00:00 :00 No [id number] 1 or 2 tablets every 8 hours as needed for nausea [facility] TAKE 1 TABLET BY [...] Site: Pelvic
Duration of therapy: 72 hours [facility] doxycycline hyclate (Vibramycin ) capsule 100 mg 06-12 07:45: 00 06-12 08:32 :00 No 100mg 100 mg, Oral, ONCE, 1 dose, On Sun06/12/23 at 0245, NICOLASA
Re ason for Anti-Infec tive: Documented Infection< br>Documen zoila Infection Site: Pelvic
Duration of Therapy: 14 days [facility] morpHINE (4 mg/mL) injection 4 mg 06-12 07:45: 00 06-12 08:32 :00 No 4mg 4 mg, Slow IV Push, ONCE, 1 dose, On Sun06/12/23 at 0245, STAT [facility] ketorolac (TORADOL) injection 30 mg 06-12 06:15: 00 06-12 05:10 :00 No 30mg 30 mg, Slow IV Push, ONCE, 1 dose, [facility]12[facility]23 [facility] 0115[facility] 0.9% (NS) bolus infusion 1,000 mL 06-12 06:15: 06-12 06:56 :00 No 1000mL at 999 mL/hr, 1,000 mL, IV Infusion, ONCE, 1 dose, On Sun06/12/23 at 0115, STAT [facility] cefTRIAXone (ROCEPHIN) 1,000 mg in NaCl 0.9% (NS) 100 mL MINI-BAG 06-12 05:15: 06-12 06:56 :00 No 1000mg 1,000 mg, IV Piggyback, ONCE, 1 dose, On Sun06/12/23 at 0015, Administer over 30 Minutes, 100 mL
Reas on for Anti-Infec tive: Empiric Therapy for Suspected Infection< br>Empiric Therapy Site: Pelvic
Duration of therapy: 72 hours [facility] ondansetron (ZOFRAN (PF)) injection 4 mg 06-12 05:15: 06-12 05:10 :00 No 4mg 4 mg, Slow IV Push, ONCE, 1 dose, On Sun06/12/23 at 0015, [facility] ibuprofen 800 mg tablet 06-12 00:00: 00 07-12 00:00 :00 No [id number] 800mg Take 1 tablet by mouth every 8 (eight) hours as needed for Pain (scale 4-6). [facility] TAKE 1 TABLET TWICE DAILY. 05-31 00:00: 00 01-30 00:00 :00 No 100 Darryl Waggoner iopamidol (ISOVUE 370-500 mL) injection 85 mL 05-28 08:30: 00 05-28 08:30 :00 No [id number] 85mL 85 mL, Intravenou s, ONCE, 1 dose, On Sun05/28/23 at 0330, Routine [facility] NaCl 0.9% (NS) bolus infusion 1,000 mL 05-28 08:15: 00 05-28 08:52 :00 No 1000mL at 999 mL/hr, 1,000 mL, IV Infusion, ONCE, 1 dose, On Sun05/28/23 at 0315, STAT [facility] pantoprazol e (PROTONIX) 80 mg in NaCl 0.9% (NS) 20 mL syringe 05-28 08:00: 00 05-28 08:02 :00 No 80mg 80 mg, IV Push, ONCE, 1 dose, On Sun05/28/23 at 0300, Administer over 2 Minutes, 20 mL [facility] ondansetron (ZOFRAN (PF)) injection 4 mg 05-28 06:45: 00 05-28 06:36 :00 No 4mg 4 mg, Slow IV Push, ONCE, 1 dose, On Sun05/28/23 at 0145, NICOLASA [facility] ondansetron 4 mg disintegrat ing tablet 05-28 00:00: 00 09-03 00:00 :00 No [id number] 4mg Take 1 tablet by mouth every 8 (eight) hours as needed for Nausea and Vomiting (N/V). [facility] esomeprazol e (NEXIUM) 40 mg capsule 05-28 00:00: 00 06-12 04:59 :00 No [id number] 40mg Take 1 capsule by mouth daily with breakfast for 14 days. [facility] INSTILL 4 DROPS IN THE AFFECTED EAR(S) TWICE DAILY 7-10 00:00: 00 01-30 00:00 :00 No 301 Darryl Waggoner dexamethaso ne (DECADRON PHOSPHATE) injection 10 mg 03-07 05:00: 00 03-07 03:56 :00 No 10mg 10 mg, Oral, ONCE, 1 dose, On Sun03/07/23 at 0000, Routine [facility] levocetiriz ine 5 mg tablet 03-06 00:00: 00 09-03 00:00 :00 No [id number] 5mg Take 1 tablet by mouth every evening. [facility] butorphanol (STADOL) injection 1 mg 02-02 08:00: 00 02-02 07:18 :00 No 1mg 1 mg, IV Push, ONCE, 1 dose, On Sun02/02/23 at 0300, NICOLASA [facility] ketorolac (TORADOL) injection 30 mg 02-02 07:45: 00 02-02 06:42 :00 No 30mg 30 mg, Slow IV Push, ONCE, 1 dose, On Sun02/02/23 at 0245, Routine [facility] metoclopram farzana HCl (REGLAN) injection 10 mg 02-02 06:45: 00 02-02 06:41 :00 No 10mg 10 mg, Slow IV Push, ONCE, 1 dose, On Sun02/02/23 at 0145, NICOLASA [facility] diphenhydrA MINE (BENADRYL) injection 25 mg 02-02 06:45: 00 02-02 06:43 :00 No 25mg 25 mg, Slow IV Push, ONCE, 1 dose, On Sun02/02/23 at 0145, STAT [facility] butalbital- acetaminoph en-caff 50-325-40 mg tablet 02-02 00:00: 00 11-12 00:00 :00 No [id number] 1{tbl} Take 1 tablet by mouth every 4 (four) hours as needed for Pain (scale 7-10). [facility] ondansetron (ZOFRAN) 4 mg tablet 02-02 00:00: 00 05-28 00:00 :00 No [id number] 4mg Take 1 tablet by mouth every 8 (eight) hours as needed for Nausea and Vomiting (N/V). [facility] iopamidol (ISOVUE 370-500 mL) injection 98 mL 1-10 21:00: 00 10-24 21:00 :00 No [id number] 98mL 98 mL, Intravenou s, ONCE, 1 dose, On Sun10/24/22 at 1500, Routine [facility] morpHINE (4 mg/mL) injection 4 mg 10-24 18:30: 00 10-24 19:03 :00 No 4mg 4 mg, Slow IV Push, ONCE, 1 dose, On Sun10/24/22 at 1230, STAT [facility] ondansetron (ZOFRAN (PF)) injection 4 mg 10-24 18:30: 00 10-24 19:01 :00 No 4mg 4 mg, Slow IV Push, ONCE, 1 dose, On Sun10/24/22 at 1230, NICOLASA [facility] NaCl 0.9% (NS) bolus infusion 1,000 mL 10-24 18:30: 00 10-24 21:40 :00 No 1000mL at 999 mL/hr, 1,000 mL, IV Infusion, ONCE, 1 dose, On Sun10/24/22 at 1230, STAT [facility] ondansetron 4 mg disintegrat ing tablet 10-24 00:00: 00 05-28 00:00 :00 No [id number] 4mg Take 1 tablet by mouth every 8 (eight) hours as needed for Nausea and Vomiting (N/V) for up to 10 doses. [facility] cephALEXin (KEFLEX) 500 mg capsule 10-24 00:00: 00 11-01 05:59 :00 No [id number] 500mg Take 1 capsule by mouth 4 (four) times daily for 7 days. [facility] ibuprofen 600 mg tablet 10-24 00:00: 00 10-30 05:59 :00 No [id number] 600mg Take 1 tablet by mouth every 8 (eight) hours as needed for Pain (scale 4-6) for up to 5 days. [facility] dicyclomine 20 mg tablet 10-24 00:00: 00 10-30 05:59 :00 No [id number] 20mg Take 1 tablet by mouth 3 (three) times daily as needed for Abdominal pain for up to 5 days. [facility] megestroL 40 mg tablet 2021-10 00:00: 00 11-12 00:00 :00 No [id number] 100 Take by mouth 2 tabs for first 7 days then 1 tablet by mouth daily for next 14 days. [facility] cephALEXin (KEFLEX) 500 mg capsule 2021-10 00:00: 00 07-29 04:59 :00 No [id number] 100 500mg Take 1 capsule by mouth in the morning and 1 capsule at noon and 1 capsule in the evening. Do all this for 7 days. [facility] iopamidol (ISOVUE 370-500 mL) injection 65 mL 05-19 21:30: 00 05-19 21:45 :00 No [id number] 65mL 65 mL, Intravenou s, ONCE, 1 dose, On Sun05/19/22 at 1645, Routine [facility] ondansetron (ZOFRAN (PF)) injection 4 mg 05-19 21:30: 00 05-19 20:51 :00 No 4mg 4 mg, Slow IV Push, ONCE, 1 dose, On Sun05/19/22 at 1630, NICOLASA [facility] ketorolac (TORADOL) injection 30 mg 05-19 21:30: 00 05-19 20:51 :00 No 30mg 30 mg, Slow IV Push, ONCE, 1 dose, On Sun05/19/22 at 1630, Routine [facility] NaCl 0.9% (NS) bolus infusion 1,000 mL 05-19 21:30: 00 05-19 22:08 :00 No 1000mL at 999 mL/hr, 1,000 mL, IV Infusion, ONCE, 1 dose, On Sun05/19/22 at 1630, NICOLASA [facility] tamsulosin 0.4 mg 24 hr capsule 05-19 00:00: 00 11-12 00:00 :00 No [id number] .4mg Take 1 capsule by mouth at bedtime. [facility] traMADoL 50 mg tablet 8-05 00:00: 00 05-27 04:59 :00 No [id number] 50mg Take 1 tablet by mouth every 6 (six) hours as needed for Pain (scale 4-6) for up to 7 days. Indication s: acute pain [facility] ketorolac (TORADOL) injection 30 mg 05-13 08:45: 00 05-13 07:40 :00 No 30mg 30 mg, Slow IV Push, ONCE, 1 dose, On 05/13/22 at 0345, Routine [facility] ketorolac 10 mg tablet 05-13 00:00: 00 11-12 00:00 :00 No [id number] 10mg Take 1 tablet by mouth every 6 (six) hours as needed for Pain (scale 7-10). [facility] butalbital- acetaminoph en-caff (ESGIC) 50-325-40 mg tablet 2 tablet 04-01 23:15: 00 04-01 22:22 :00 No 2{tbl} 2 tablet, Oral, ONCE NOW, 1 dose, On 04/01/22 at 1815, Routine [facility] ketorolac (TORADOL) injection 30 mg 04-01 23:15: 00 04-01 22:21 :00 No 30mg 30 mg, Intramuscu lar, ONCE, 1 dose, On 04/01/22 at 1815, NICOLASA [facility] No known medications 04-01 18:30: 37 No [facility] No known medications 10-25 13:51: 01 No [facility] cefdinir 300 mg capsule 10-25 00:00: 00 11-02 05:59 :00 No [id number] 300mg Take 1 capsule by mouth 2 (two) times daily for 7 days. [facility] Iron (ferrous sulfate) 325 [...] No known medications 6-25 21:44: 39 No [facility] amitriptyli ne 25 mg tablet 5-20 00:00: 00 Yes 1mg Darryl Waggoner amitriptyli ne 25 mg tablet 5-20 00:00: 00 No 1mg amitriptyli ne 25 mg tablet 520 00:00: 00 No 1mg Dose Unknown 3- 00:00: 00 Yes Darryl Waggoner Dose Unknown 3- 00:00: 00 No Dose Unknown 01-08 00:00: [...] 2020-12-15 00:00:00 Completed [facility] 2016-08-23 00:00:00 Completed [facility] Vital Signs Vital Name Observation Time Observation Value Comments S ource Body temperature 2025-05-08 13:05:00 36.33 Jennifer [facility] Systolic blood pressure 2025-04-14 16:28:36 130 mm[Hg] [facility] Diastolic blood pressure 2025-04-14 16:28:36 90 mm[Hg] [facility] Heart rate 2025-04-14 16:28:36 93 /min [facility] Body temperature 2025-04-14 16:28:36 37.78 Jennifer [facility] Respiratory rate 2025-04-14 16:28:36 16 /min [facility] Oxygen saturation in Arterial blood by Pulse oximetry 2025-04-14 16:28:36 100 /min [facility] Body height 2025-04-14 13:10:00 157.5 cm [facility] Body weight 2025-04-14 13:10:00 81.647 kg [facility] BMI 2025-04-14 13:10:00 32.92 kg/m2 [facility] Systolic blood pressure 2025-03-09 07:37:00 126 mm[Hg] [facility] Diastolic blood pressure 2025-03-09 07:37:00 85 mm[Hg] [facility] Heart rate 2025-03-09 07:37:00 95 /min [facility] Body temperature 2025-03-09 07:37:00 36.83 Jennifer [facility] Respiratory rate 2025-03-09 07:37:00 17 /min [facility] Oxygen saturation in Arterial blood by Pulse oximetry 2025-03-09 07:37:00 98 /min [facility] Body height 2025-03-09 02:30:00 157.5 cm [facility] Body weight 2025-03-09 02:30:00 81.647 kg [facility] BMI 2025-03-09 02:30:00 32.92 kg/m2 [facility] Systolic blood pressure 2025-02-04 19:15:00 126 mm[Hg] [facility] Diastolic blood pressure 2025-02-04 19:15:00 83 mm[Hg] [facility] Heart rate 2025-02-04 19:15:00 98 /min [facility] Body temperature 2025-02-04 19:15:00 36.5 Jennifer [facility] Respiratory rate 2025-02-04 19:15:00 20 /min [facility] Body height 2025-02-04 19:15:00 157.5 cm [facility] Body weight 2025-02-04 19:15:00 84.414 kg [facility] BMI 2025-02-04 19:15:00 34.04 kg/m2 [facility] Body temperature 2025-01-27 18:45:00 37 Jennifer [facility] Systolic blood pressure 2025-01-27 18:00:00 124 mm[Hg] [facility] Diastolic blood pressure 2025-01-27 18:00:00 91 mm[Hg] [facility] Heart rate 2025-01-27 18:00:00 89 /min [facility] Respiratory rate 2025-01-27 18:00:00 16 /min [facility] Oxygen saturation in Arterial blood by Pulse oximetry 2025-01-27 18:00:00 98 /min [facility] Body height 2025-01-27 17:26:00 157.5 cm [facility] Body weight 2025-01-27 17:26:00 79.379 kg [facility] BMI 2025-01-27 17:26:00 32.01 kg/m2 [facility] Systolic blood pressure 2025-01-17 09:03:00 115 mm[Hg] [facility] Diastolic blood pressure 2025-01-17 09:03:00 79 mm[Hg] [facility] Heart rate 2025-01-17 09:03:00 89 /min [facility] Body temperature 2025-01-17 09:03:00 36.89 Jennifer [facility] Respiratory rate 2025-01-17 09:03:00 16 /min [facility] Oxygen saturation in Arterial blood by Pulse oximetry 2025-01-17 09:03:00 100 /min [facility] Body height 2025-01-17 07:25:00 157.5 cm [facility] Body weight 2025-01-17 07:25:00 81.647 kg [facility] BMI 2025-01-17 07:25:00 32.92 kg/m2 [facility] Systolic blood pressure 2025-01-05 14:39:00 125 mm[Hg] [facility] Diastolic blood pressure 2025-01-05 14:39:00 84 mm[Hg] [facility] Heart rate 2025-01-05 14:39:00 99 /min [facility] Body temperature 2025-01-05 14:39:00 37.33 Jennifer [facility] Respiratory rate 2025-01-05 14:39:00 16 /min [facility] Oxygen saturation in Arterial blood by Pulse oximetry 2025-01-05 14:39:00 98 /min [facility] Body height 2025-01-05 10:11:00 157.5 cm [facility] Body weight 2025-01-05 10:11:00 83.462 kg [facility] BMI 2025-01-05 10:11:00 33.65 kg/m2 [facility] Systolic blood pressure 2024-12-18 07:00:00 101 mm[Hg] [facility] Diastolic blood pressure 2024-12-18 07:00:00 71 mm[Hg] [facility] Heart rate 2024-12-18 07:00:00 90 /min [facility] Respiratory rate 2024-12-18 07:00:00 16 /min [facility] Oxygen saturation in Arterial blood by Pulse oximetry 2024-12-18 07:00:00 97 /min [facility] Body temperature 2024-12-18 05:54:00 37.11 Jennifer [facility] Body height 2024-12-18 05:54:00 157.5 cm [facility] Body weight 2024-12-18 05:54:00 83.462 kg [facility] BMI 2024-12-18 05:54:00 33.65 kg/m2 [facility] Systolic blood pressure 2024-11-19 04:41:00 120 mm[Hg] [facility] Diastolic blood pressure 2024-11-19 04:41:00 93 mm[Hg] [facility] Heart rate 2024-11-19 04:41:00 78 /min [facility] Body temperature 2024-11-19 04:41:00 36.83 Jennifer [facility] Respiratory rate 2024-11-19 04:41:00 16 /min [facility] Oxygen saturation in Arterial blood by Pulse oximetry 2024-11-19 04:41:00 99 /min [facility] Body height 2024-11-19 03:00:00 157.5 cm [facility] Body weight 2024-11-19 03:00:00 86.183 kg [facility] BMI 2024-11-19 03:00:00 34.75 kg/m2 [facility] Systolic blood pressure 2024-11-09 04:37:00 130 mm[Hg] [facility] Diastolic blood pressure 2024-11-09 04:37:00 89 mm[Hg] [facility] Heart rate 2024-11-09 04:37:00 88 /min [facility] Body temperature 2024-11-09 04:37:00 37 Jennifer [facility] Respiratory rate 2024-11-09 04:37:00 19 /min [facility] Body height 2024-11-09 04:37:00 157.5 cm [facility] Body weight 2024-11-09 04:37:00 81.647 kg [facility] BMI 2024-11-09 04:37:00 32.92 kg/m2 [facility] Oxygen saturation in Arterial blood by Pulse oximetry 2024-11-09 04:37:00 100 /min [facility] Systolic blood pressure 2024-07-25 14:30:00 124 mm[Hg] [facility] Diastolic blood pressure 2024-07-25 14:30:00 83 mm[Hg] [facility] Heart rate 2024-07-25 14:30:00 88 /min [facility] Respiratory rate 2024-07-25 14:30:00 14 /min [facility] Oxygen saturation in Arterial blood by Pulse oximetry 2024-07-25 14:30:00 99 /min [facility] Body temperature 2024-07-25 12:49:00 37.22 Jennifer [facility] Body height 2024-07-25 12:49:00 157.5 cm [facility] Body weight 2024-07-25 12:49:00 86.637 kg [facility] BMI 2024-07-25 12:49:00 34.93 kg/m2 [facility] Systolic blood pressure 2024-07-04 10:38:00 117 mm[Hg] [facility] Diastolic blood pressure 2024-07-04 10:38:00 79 mm[Hg] [facility] Heart rate 2024-07-04 10:38:00 82 [facility] 2024-07-04 10:38:00 36.89 Jennifer [facility] Respiratory rate 2024-07-04 10:38:00 14 /min [facility] Oxygen saturation in Arterial blood by Pulse oximetry 2024-07-04 10:38:00 100 /min [facility] Body height 2024-07-04 07:28:00 157.5 cm [facility] Body weight 2024-07-04 07:28:00 79.379 kg [facility] BMI 2024-07-04 07:28:00 32.01 kg/m2 [facility] Systolic blood pressure 2024-03-12 11:00:00 127 mm[Hg] [facility] Diastolic blood pressure 2024-03-12 11:00:00 94 mm[Hg] [facility] Heart rate 2024-03-12 11:00:00 84 /min [facility] Body temperature 2024-03-12 11:00:00 36.61 Jennifer [facility] Respiratory rate 2024-03-12 11:00:00 14 /min [facility] Oxygen saturation in Arterial blood by Pulse oximetry 2024-03-12 11:00:00 100 /min [facility] Body height 2024-03-12 07:04:00 157.5 cm [facility] Body weight 2024-03-12 07:04:00 87 kg [facility] BMI 2024-03-12 07:04:00 35.08 kg/m2 [facility] Systolic blood pressure 2024-02-03 12:00:00 121 mm[Hg] [facility] Diastolic blood pressure 2024-02-03 12:00:00 82 mm[Hg] [facility] Heart rate 2024-02-03 12:00:00 80 /min [facility] Respiratory rate 2024-02-03 12:00:00 17 /min [facility] Oxygen saturation in Arterial blood by Pulse oximetry 2024-02-03 12:00:00 100 /min [facility] Body temperature 2024-02-03 09:01:00 37.33 Jennifer [facility] Body height 2024-02-03 09:01:00 157.5 cm [facility] Body weight 2024-02-03 09:01:00 81.647 kg [facility] BMI 2024-02-03 09:01:00 32.92 kg/m2 [facility] Systolic blood pressure 2024-01-02 05:38:00 109 mm[Hg] [facility] Diastolic blood pressure 2024-01-02 05:38:00 91 mm[Hg] [facility] Heart rate 2024-01-02 05:38:00 93 /min [facility] Body temperature 2024-01-02 05:38:00 36.28 Jennifer [facility] Respiratory rate 2024-01-02 05:38:00 20 /min [facility] Oxygen saturation in Arterial blood by Pulse oximetry 2024-01-02 05:38:00 99 /min [facility] Body height 2024-01-02 03:25:00 157.5 cm [facility] Body weight 2024-01-02 03:25:00 81.647 kg [facility] BMI 2024-01-02 03:25:00 32.92 kg/m2 [facility] Systolic blood pressure 2023-12-26 08:51:00 115 mm[Hg] [facility] Diastolic blood pressure 2023-12-26 08:51:00 78 mm[Hg] [facility] Heart rate 2023-12-26 08:51:00 98 /min [facility] Body temperature 2023-12-26 08:51:00 37.5 Jennifer [facility] Respiratory rate 2023-12-26 08:51:00 12 /min [facility] Body height 2023-12-26 08:51:00 157.5 cm [facility] Body weight 2023-12-26 08:51:00 85.322 kg [facility] BMI 2023-12-26 08:51:00 34.40 kg/m2 [facility] Oxygen saturation in Arterial blood by Pulse oximetry 2023-12-26 08:51:00 100 /min [facility] Systolic blood pressure 2023-11-20 16:29:00 120 mm[Hg] [facility] Diastolic blood pressure 2023-11-20 16:29:00 89 mm[Hg] [facility] Heart rate 2023-11-20 16:29:00 85 /min [facility] Respiratory rate 2023-11-20 16:29:00 16 /min [facility] Oxygen saturation in Arterial blood by Pulse oximetry 2023-11-20 16:29:00 97 /min [facility] Body temperature 2023-11-20 12:44:00 37.11 Jennifer [facility] Body height 2023-11-20 12:44:00 157.5 cm [facility] Body weight 2023-11-20 12:44:00 82.101 kg [facility] BMI 2023-11-20 12:44:00 33.11 kg/m2 [facility] Systolic blood pressure 2023-11-12 06:09:00 135 mm[Hg] [facility] Diastolic blood pressure 2023-11-12 06:09:00 86 mm[Hg] [facility] Heart rate 2023-11-12 06:09:00 89 /min [facility] Body temperature 2023-11-12 06:09:00 37.28 Jennifer [facility] Respiratory rate 2023-11-12 06:09:00 16 /min [facility] Body height 2023-11-12 06:09:00 157.5 cm [facility] Body weight 2023-11-12 06:09:00 83.553 kg [facility] BMI 2023-11-12 06:09:00 33.69 kg/m2 [facility] Oxygen saturation in Arterial blood by Pulse oximetry 2023-11-12 06:09:00 100 /min [facility] Systolic blood pressure 2023-10-28 02:30:00 121 mm[Hg] [facility] Diastolic blood pressure 2023-10-28 02:30:00 80 mm[Hg] [facility] Heart rate 2023-10-28 02:30:00 124 /min [facility] Body temperature 2023-10-28 02:30:00 38 Jennifer [facility] Respiratory rate 2023-10-28 02:30:00 20 /min [facility] Body weight 2023-10-28 02:30:00 86.183 kg [facility] BMI 2023-10-28 02:30:00 34.75 kg/m2 [facility] Oxygen saturation in Arterial blood by Pulse oximetry 2023-10-28 02:30:00 96 /min [facility] Systolic blood pressure 2023-09-09 02:47:12 116 mm[Hg] [facility] Diastolic blood pressure 2023-09-09 02:47:12 85 mm[Hg] [facility] Heart rate 2023-09-09 02:47:12 78 /min [facility] Body temperature 2023-09-09 02:47:12 36.28 Jennifer [facility] Respiratory rate 2023-09-09 02:47:12 18 /min [facility] Oxygen saturation in Arterial blood by Pulse oximetry 2023-09-09 02:47:12 98 /min [facility] Body height 2023-09-09 00:30:00 157.5 cm [facility] Body weight 2023-09-09 00:30:00 85.276 kg [facility] BMI 2023-09-09 00:30:00 34.39 kg/m2 [facility] Systolic blood pressure 2023-09-07 12:45:00 119 mm[Hg] [facility] Diastolic blood pressure 2023-09-07 12:45:00 83 mm[Hg] [facility] Heart rate 2023-09-07 12:45:00 101 /min [facility] Body temperature 2023-09-07 12:45:00 37.5 Jennifer [facility] Respiratory rate 2023-09-07 12:45:00 18 /min [facility] Body height 2023-09-07 12:45:00 157.5 cm [facility] Body weight 2023-09-07 12:45:00 82.872 kg [facility] BMI 2023-09-07 12:45:00 33.42 kg/m2 [facility] Oxygen saturation in Arterial blood by Pulse oximetry 2023-09-07 12:45:00 99 /min [facility] Systolic blood pressure 2023-09-04 04:00:00 112 mm[Hg] [facility] Diastolic blood pressure 2023-09-04 04:00:00 97 mm[Hg] [facility] Heart rate 2023-09-04 04:00:00 94 /min [facility] Body temperature 2023-09-04 04:00:00 36.89 Jennifer [facility] Oxygen saturation in Arterial blood by Pulse oximetry 2023-09-04 04:00:00 98 /min [facility] Respiratory rate 2023-09-04 03:00:00 17 /min [facility] Body height 2023-09-04 00:54:00 157.5 cm [facility] Body weight 2023-09-04 00:54:00 83.915 kg [facility] BMI 2023-09-04 00:54:00 33.84 kg/m2 [facility] Systolic blood pressure 2023-08-04 04:05:00 139 mm[Hg] [facility] Diastolic blood pressure 2023-08-04 04:05:00 77 mm[Hg] [facility] Heart rate 2023-08-04 04:05:00 104 /min [facility] Body temperature 2023-08-04 04:05:00 36.72 Jennifer [facility] Respiratory rate 2023-08-04 04:05:00 16 /min [facility] Body height 2023-08-04 04:05:00 157.5 cm [facility] Body weight 2023-08-04 04:05:00 85.957 kg [facility] BMI 2023-08-04 04:05:00 34.66 kg/m2 [facility] Oxygen saturation in Arterial blood by Pulse oximetry 2023-08-04 04:05:00 100 /min [facility] Systolic blood pressure 2023-07-26 07:38:00 134 mm[Hg] [facility] Diastolic blood pressure 2023-07-26 07:38:00 95 mm[Hg] [facility] Heart rate 2023-07-26 07:38:00 114 /min [facility] Body temperature 2023-07-26 07:38:00 37.28 Jennifer [facility] Respiratory rate 2023-07-26 07:38:00 18 /min [facility] Body height 2023-07-26 07:38:00 157.5 cm [facility] Body weight 2023-07-26 07:38:00 86.183 kg [facility] BMI 2023-07-26 07:38:00 34.75 kg/m2 [facility] Oxygen saturation in Arterial blood by Pulse oximetry 2023-07-26 07:38:00 99 /min [facility] Systolic blood pressure 2023-07-25 14:52:00 126 mm[Hg] [facility] Diastolic blood pressure 2023-07-25 14:52:00 96 mm[Hg] [facility] Heart rate 2023-07-25 14:52:00 98 /min [facility] Body temperature 2023-07-25 14:52:00 37 Jennifer [facility] Respiratory rate 2023-07-25 14:52:00 16 /min [facility] Oxygen saturation in Arterial blood by Pulse oximetry 2023-07-25 14:52:00 98 /min [facility] Body height 2023-07-25 12:33:00 157.5 cm [facility] Body weight 2023-07-25 12:33:00 86.456 kg [facility] BMI 2023-07-25 12:33:00 34.86 kg/m2 [facility] Systolic blood pressure 2023-07-12 12:34:00 127 mm[Hg] [facility] Diastolic blood pressure 2023-07-12 12:34:00 86 mm[Hg] [facility] Heart rate 2023-07-12 12:34:00 86 /min [facility] Body temperature 2023-07-12 12:34:00 36.72 Jennifer [facility] Respiratory rate 2023-07-12 12:34:00 16 /min [facility] Body height 2023-07-12 12:34:00 157.5 cm [facility] 2023-07-12 12:34:00 86.183 kg [facility] BMI 2023-07-12 12:34:00 34.75 kg/m2 [facility] Oxygen saturation in Arterial blood by Pulse oximetry 2023-07-12 12:34:00 98 /min [facility] Systolic blood pressure 2023-06-24 10:24:00 118 mm[Hg] [facility] Diastolic blood pressure 2023-06-24 10:24:00 89 mm[Hg] [facility] Heart rate 2023-06-24 10:24:00 95 /min [facility] Body temperature 2023-06-24 10:24:00 36.78 Jennifer [facility] Respiratory rate 2023-06-24 10:24:00 18 /min [facility] Body height 2023-06-24 10:24:00 157.5 cm [facility] Body weight 2023-06-24 10:24:00 89.812 kg [facility] BMI 2023-06-24 10:24:00 36.21 kg/m2 [facility] Oxygen saturation in Arterial blood by Pulse oximetry 2023-06-24 10:24:00 100 /min [facility] Systolic blood pressure 2023-06-18 04:52:00 113 mm[Hg] [facility] Diastolic blood pressure 2023-06-18 04:52:00 82 mm[Hg] [facility] Heart rate 2023-06-18 04:52:00 100 /min [facility] Body temperature 2023-06-18 04:52:00 37.39 Jennifer [facility] Respiratory rate 2023-06-18 04:52:00 18 /min [facility] Body height 2023-06-18 04:52:00 157.5 cm [facility] Body weight 2023-06-18 04:52:00 89.903 kg [facility] BMI 2023-06-18 04:52:00 36.25 kg/m2 [facility] Oxygen saturation in Arterial blood by Pulse oximetry 2023-06-18 04:52:00 100 /min [facility] Systolic blood pressure 2023-06-12 09:00:00 105 mm[Hg] [facility] Diastolic blood pressure 2023-06-12 09:00:00 74 mm[Hg] [facility] Heart rate 2023-06-12 09:00:00 74 /min [facility] Respiratory rate 2023-06-12 09:00:00 16 /min [facility] Oxygen saturation in Arterial blood by Pulse oximetry 2023-06-12 09:00:00 97 /min [facility] Body temperature 2023-06-12 04:09:00 36.89 Jennifer [facility] Body height 2023-06-12 04:09:00 157.5 cm [facility] Body weight 2023-06-12 04:09:00 86.183 kg [facility] BMI 2023-06-12 04:09:00 34.75 kg/m2 [facility] Systolic blood pressure 2023-05-28 08:00:00 123 mm[Hg] [facility] Diastolic blood pressure 2023-05-28 08:00:00 78 mm[Hg] [facility] Heart rate 2023-05-28 08:00:00 93 /min [facility] in Arterial blood by Pulse oximetry 2023-05-28 08:00:00 99 /min [facility] Respiratory rate 2023-05-28 06:00:00 18 /min [facility] Body temperature 2023-05-28 05:37:00 35.72 Jennifer [facility] Body height 2023-05-28 05:37:00 157.5 cm [facility] Body weight 2023-05-28 05:37:00 87.136 kg [facility] BMI 2023-05-28 05:37:00 35.14 kg/m2 [facility] Systolic blood pressure 2023-03-07 03:59:00 122 mm[Hg] [facility] Diastolic blood pressure 2023-03-07 03:59:00 77 mm[Hg] [facility] Heart rate 2023-03-07 03:59:00 97 /min [facility] Body temperature 2023-03-07 03:59:00 36.67 Jennifer [facility] Respiratory rate 2023-03-07 03:59:00 18 /min [facility] Body height 2023-03-07 03:59:00 157.5 cm [facility] Body weight 2023-03-07 03:59:00 79.379 kg [facility] BMI 2023-03-07 03:59:00 32.01 kg/m2 [facility] Oxygen saturation in Arterial blood by Pulse oximetry 2023-03-07 03:59:00 99 /min [facility] Heart rate 2023-02-02 07:48:00 73 /min [facility] Oxygen saturation in Arterial blood by Pulse oximetry 2023-02-02 07:48:00 98 /min [facility] Systolic blood pressure 2023-02-02 07:00:00 122 mm[Hg] [facility] Diastolic blood pressure 2023-02-02 07:00:00 79 mm[Hg] [facility] Respiratory rate 2023-02-02 07:00:00 15 /min [facility] Body temperature 2023-02-02 06:07:00 36.94 Jennifer [facility] Body height 2023-02-02 06:07:00 157.5 cm [facility] Body weight 2023-02-02 06:07:00 79.379 kg [facility] BMI 2023-02-02 06:07:00 32.01 kg/m2 [facility] Systolic blood pressure 2022-10-24 21:42:00 114 mm[Hg] [facility] Diastolic blood pressure 2022-10-24 21:42:00 74 mm[Hg] [facility] Heart rate 2022-10-24 21:42:00 72 /min [facility] Respiratory rate 2022-10-24 21:42:00 16 /min [facility] Oxygen saturation in Arterial blood by Pulse oximetry 2022-10-24 21:42:00 99 /min [facility] Body temperature 2022-10-24 18:03:00 37.33 Jennifer [facility] Body height 2022-10-24 18:03:00 157.5 cm [facility] Body weight 2022-10-24 18:03:00 79.379 kg [facility] BMI 2022-10-24 18:03:00 32.01 kg/m2 [facility] Systolic blood pressure 2022-07-21 12:46:00 115 mm[Hg] [facility] Diastolic blood pressure 2022-07-21 12:46:00 83 mm[Hg] [facility] Heart rate 2022-07-21 12:46:00 82 /min [facility] Body temperature 2022-07-21 12:46:00 36.89 Jennifer [facility] Respiratory rate 2022-07-21 12:46:00 18 /min [facility] Body weight 2022-07-21 12:46:00 78.019 kg [facility] BMI 2022-07-21 12:46:00 31.46 kg/m2 [facility] Oxygen saturation in Arterial blood by Pulse oximetry 2022-07-21 12:46:00 99 /min [facility] Systolic blood pressure 2022-05-19 22:00:00 128 mm[Hg] [facility] Diastolic blood pressure 2022-05-19 22:00:00 68 mm[Hg] [facility] Heart rate 2022-05-19 22:00:00 78 /min [facility] Body temperature 2022-05-19 22:00:00 36.78 Jennifer [facility] Respiratory rate 2022-05-19 22:00:00 18 /min [facility] Oxygen saturation in Arterial blood by Pulse oximetry 2022-05-19 22:00:00 100 /min [facility] Body height 2022-05-19 20:31:00 157.5 cm [facility] Body weight 2022-05-19 20:31:00 78.019 kg [facility] BMI 2022-05-19 20:31:00 31.46 kg/m2 [facility] Heart rate 2022-05-13 08:30:00 83 /min [facility] Oxygen saturation in Arterial blood by Pulse oximetry 2022-05-13 08:30:00 99 /min [facility] Systolic blood pressure 2022-05-13 08:00:00 111 mm[Hg] [facility] Diastolic blood pressure 2022-05-13 08:00:00 80 mm[Hg] [facility] Body temperature 2022-05-13 07:05:00 37 Jennifer [facility] Respiratory rate 2022-05-13 07:05:00 18 /min [facility] Body height 2022-05-13 07:05:00 157.5 cm [facility] Body weight 2022-05-13 07:05:00 76.658 kg [facility] BMI 2022-05-13 07:05:00 30.91 kg/m2 [facility] Systolic blood pressure 2022-04-01 21:47:00 124 mm[Hg] [facility] Diastolic blood pressure 2022-04-01 21:47:00 84 mm[Hg] [facility] Heart rate 2022-04-01 21:47:00 89 /min [facility] Body temperature 2022-04-01 21:47:00 37.22 Jennifer [facility] Respiratory rate 2022-04-01 21:47:00 22 /min [facility] Body weight 2022-04-01 21:47:00 77.111 kg [facility] BMI 2022-04-01 21:47:00 29.18 kg/m2 [facility] Oxygen saturation in Arterial blood by Pulse oximetry 2022-04-01 21:47:00 99 /min [facility] Systolic blood pressure 2021-10-25 19:42:00 103 mm[Hg] [facility] Diastolic blood pressure 2021-10-25 19:42:00 74 mm[Hg] [facility] Heart rate 2021-10-25 19:42:00 94 /min [facility] Body temperature 2021-10-25 19:42:00 37.67 Jennifer [facility] Respiratory rate 2021-10-25 19:42:00 18 /min [facility] Body weight 2021-10-25 19:42:00 70.761 kg [facility] BMI 2021-10-25 19:42:00 26.78 kg/m2 [facility] Oxygen saturation in Arterial blood by Pulse oximetry 2021-10-25 19:42:00 99 /min [facility] BP Systolic 2024-12-19 08:33:00 128 mm[Hg] Step hen F Edlison BP Diastolic 2024-12-19 08:33:00 74 mm[Hg] Osito phen F Edilson Weight Measured 2024-12-19 08:33:00 184.20 pounds Darryl F [place] Height Measured 2024-12-19 08:33:00 63.00 inches Darryl F [place] Body Temperature 2024-12-19 08:33:00 98.10 degrees Darryl [...] Temperature 2023-04-23 08:58:00 98.70 degrees Darryl F Edilosn Heart Rate 2023-04-23 08:58:00 100.00 /min Step [...] 9V) VACCINE 2025-05-08 13:05:30 Viry De Anda [facility] CT ABDOMEN PELVIS W CONTRAST 2025-04-14 14:52:00 Hermilo Ricks [facility] URINALYSIS 2025-04-14 14:33:00 [facility] LIPASE 2025-04-14 13:43:00 Hermilo Ricks [facility] COMP. METABOLIC PANEL ([id number]) 2025-04-14 13:43:00 Hermilo Ricks [facility] CBC WITH DIFF 2025-04-14 13:43:00 Hermilo Ricks [facility] US OVARY TORSION 2025-03-09 05:02:45 Doni Marie [facility] POCT TEST 2025-03-09 03:04:00 Ryan Marie [facility] LIPASE 2025-03-09 03:03:00 [facility] COMP. METABOLIC PANEL ([id number]) 2025-03-09 03:03:00 Doni Marie [facility] CBC WITH DIFF 2025-03-09 03:03:00 Doni Marie [facility] URINALYSIS 2025-03-09 03:03:00 Doni Marie [facility] GARDASIL 9 (HPV 9V) VACCINE 2025-02-04 19:21:47 Carolyn Miller [facility] POCT TEST 2025-02-04 00:00:00 Kaye House [facility] POCT GLUCOSE(AGE >30DAYS) 2025-01-27 18:48:00 [facility] 2025-01-27 18:45:00 [facility]EL[facility] W CONTRAST 2025-01-17 08:40:02 Selene Parra [facility] POCT TEST 2025-01-17 07:32:00 Selene Parra [facility] LIPASE 2025-01-17 07:29:00 Selene Parra [facility] COMP. METABOLIC PANEL ([id number]) 2025-01-17 07:29:00 Selene Parra [facility] CBC WITH DIFF 2025-01-17 07:29:00 Selene Parra [facility] URINALYSIS 2025-01-17 07:29:00 Selene Parra [facility] CT ABDOMEN PELVIS W CONTRAST 2025-01-05 12:26:37 Singer [facility] POCT TEST 2025-01-05 11:58:00 Jeanine Ricks [facility] URINALYSIS 2025-01-05 10:42:00 Singer [facility] XR CHEST 1 VW 2025-01-05 10:39:55 Singer [facility] COMP. METABOLIC PANEL ([id number]) 2025-01-05 10:16:00 Singer [facility] CBC WITH DIFF 2025-01-05 10:16:00 Ricks [facility] INFLUENZA A/B RSV COVID NAAT 2025-01-05 10:16:00 Singer [facility] [id number] Colposcopy Entire Vagina W/cervix If Present 2024-12-19 00:00:00 Darryl Waggoner POCT TEST 2024-12-18 06:15:00 Martha Terry [facility] COMP. METABOLIC PANEL ([id number]) 2024-12-18 06:13:00 Gaby Terry [facility] CBC WITH DIFF 2024-12-18 06:13:00 [facility]24-12-18 06:13:00 [facility] ACUTE SERIES 2024-07-25 14:37:21 Do jasmina Marie [facility] POCT TEST 2024-07-25 13:23:00 Ryan Marie [facility] LIPASE 2024-07-25 13:21:00 Doni Marie [facility] COMP. METABOLIC PANEL ([id number]) 2024-07-25 13:21:00 Marie, [facility] CBC WITH DIFF 2024-07-25 [facility]25 13:21:00 [place] [facility] URINE DRUG (IMMUNOASSAY) - COMPREHENSIVE DRUG SCREEN W/O REFLEX 2024-07-25 13:21:00 Frank [facility] CT ABDOMEN PELVIS W CONTRAST 2024-07-04 08:54:02 Selene Parra [facility] POCT TEST 2024-07-04 07:36:00 Selene Parra [facility] LIPASE 2024-07-04 07:33[facility] ([id number]) 2024-07-04 07:33:00 Selene Parra [facility] CBC WITH DIFF 2024-07-04 07:33:00 Selene Parra [facility] URINALYSIS 2024-07-04 07:33:00 Selene Parra [facility] CT ABDOMEN PELVIS W CONTRAST 2024-03-12 09:15:57 Selene Parra [facility] LIPASE 2024-03-12 09:01:00 Selene Parra [facility] COMP. METABOLIC PANEL ([id number]) 2024-03-12 09:01:00 Selene Parra [facility] CBC WITH DIFF 2024-03-12 09:01:00 Selene Parra [facility] EBV-MONONUCLEOSIS SCREEN 2024-02-03 10:22:00 Funmilayo Parra [facility] CT ABDOMEN PELVIS W CONTRAST 2024-02-03 10:08:28 Selene Parra [facility] POCT TEST 2024-02-03 09:09:00 Selene Parra [facility] LIPASE 2024-02-03 09:06:00 Selene Parra [facility] COMP. METABOLIC PANEL ([id number]) 2024-02-03 09:06:00 Selene Parra [facility] CBC WITH DIFF 2024-02-03 09:06:00 Selene Parra [facility] URINALYSIS 2024-02-03 09:06:00 Selene Parra [facility] RAPID STREP SCREEN FOR GROUP A 2024-02-03 09:06:00 Selene Parra [facility] ASSIGNMENT OF BENEFITS 2024-01-02 04:22:29 Docto r Unassigned, [place] [facility] RAPID STREP SCREEN FOR GROUP A 2024-01-02 04:20:00 Doni Marie [facility] RAPID INFLUENZA A/B 2024-01-02 03:50:00 Ryan Marie [facility] COVID-19 (ID NOW RAPID TESTING) 2024-01-02 03:50:00 Doni Marie [facility] CONSENT/REFUSAL FOR DIAGNOSIS AND TREATMENT 2024-01-02 03:16:29 Doctor Unassigned, [place] [facility] CONSENT/REFUSAL FOR DIAGNOSIS AND TREATMENT 2023-12-26 08:43:59 Doctor Unassigned, [place] [facility] [id number] Colposcopy Cervix Endocervical Curettage 2023-12-17 00:00:00 Darryl Waggoner US OVARY TORSION 2023-11-20 16:01:25 Doni Marie [facility] CT ABDOMEN PELVIS W CONTRAST 2023-11-20 14:40:23 Doni Marie [facility] COMP. METABOLIC PANEL ([id number]) 2023-11-20 13:27:00 Doni Marie [facility] CBC WITH DIFF 2023-11-20 13:27:00 Doni Marie [facility] URINALYSIS 2023-11-20 [facility]20 13:26:00 Ryan Marie [facility] CONSENT/REFUSAL FOR DIAGNOSIS AND TREATMENT 2023-11-20 12:37:06 Doctor Unassigned, [place] [facility] CONSENT/REFUSAL FOR DIAGNOSIS AND TREATMENT 2023-11-12 06:04:20 Doctor Unassigned, [place] [facility] CONSENT/REFUSAL FOR DIAGNOSIS AND TREATMENT 2023-10-28 02:10:42 Doctor Unassigned, [place] [facility] URINALYSIS 2023-09-09 02:35:00 Danie Ontiveros [facility] XR KUB 2023-09-09 01:28:00 Danie Ontiveros U [facility] CT LUMBAR SPINE WO CONTRAST 2023-09-09 01:02:05 Danie Ontiveros [facility] CONSENT/REFUSAL FOR DIAGNOSIS AND TREATMENT 2023-09-09 00:05:52 Doctor Unassigned, [place] [facility] POCT TEST 2023-09-07 13:28:00 Juli Srivastava ra [facility] URINALYSIS 2023-09-07 13:27:00 Chayo Srivastava Un [facility] CONSENT/REFUSAL FOR DIAGNOSIS AND TREATMENT 2023-09-07 12:42:21 Doctor Unassigned, [place] [facility] COMP. METABOLIC PANEL ([id number]) 2023-09-04 02:29:00 Selene Parra [facility] CBC WITH DIFF 2023-09-04 02:29:00 Selene Parra [facility] RAPID INFLUENZA A/B 2023-09-04 02:26:00 Selene Parra [facility] COVID-19 (ID NOW RAPID TESTING) 2023-09-04 02:26:00 Selene Parra [facility] ASSIGNMENT OF BENEFITS 2023-09-04 02:07:25 Docto r Unassigned, [place] [facility] CONSENT/REFUSAL FOR DIAGNOSIS AND TREATMENT 2023-09-04 00:46:16 Doctor Unassigned, [place] [facility] CONSENT/REFUSAL FOR DIAGNOSIS AND TREATMENT 2023-08-04 03:55:32 Doctor Unassigned, [place] [facility] URINALYSIS 2023-07-26 08:52:00 Memo Resendiz [facility] URINALYSIS 2023-07-26 08:20:00 Memo Resendiz [facility] ASSIGNMENT OF BENEFITS 2023-07-26 08:05:43 Docto r Unassigned, [place] [facility] CONSENT/REFUSAL FOR DIAGNOSIS AND TREATMENT 2023-07-26 07:33:52 Doctor Unassigned, [place] [facility] RAPID STREP SCREEN FOR GROUP A 2023-07-25 13:40:00 Danii Arriaga [facility] RAPID INFLUENZA A/B 2023-07-25 13:40:00 Minal Arriaga [facility] COVID-19 (ID NOW RAPID TESTING) 2023-07-25 13:40:00 Danii Arriaga [facility] XR CHEST 2 VW 2023-07-25 13:26:06 Danii Arriaga [facility] ASSIGNMENT OF BENEFITS 2023-07-25 13:17:29 Docto r Unassigned, [place] [facility] CONSENT/REFUSAL FOR DIAGNOSIS AND TREATMENT 2023-07-25 12:29:51 Doctor Unassigned, [place] [facility] XR CHEST 2 VW 2023-07-12 13:13:00 Doni Marie [facility] POCT TEST 2023-07-12 12:56:00 Ryan Marie [facility] CONSENT/REFUSAL FOR DIAGNOSIS AND TREATMENT 2023-07-12 12:27:58 Doctor Unassigned, [place] [facility] [id number] Colposcopy Cervix Uppr/adjcnt Vagina W/cervix Bx 2023-06-26 00:00:00 Darryl Waggoner [id number] Endometrial Bx W/wo Endocervix Bx W/o Dilat Spx 2023-06-26 00:00:00 Darryl Waggoner CONSENT/REFUSAL FOR DIAGNOSIS AND TREATMENT 2023-06-24 10:15:34 Doctor Unassigned, [place] [facility] RAPID INFLUENZA A/B 2023-06-18 05:03:00 Michelle Terry [facility] RAPID RSV 2023-06-18 05:03:00 Michelle [facility] COVID-19 (ID NOW RAPID TESTING) 2023-06-18 05:03:00 Michelle Terry [facility] CONSENT/REFUSAL FOR DIAGNOSIS AND TREATMENT 2023-06-18 04:46:39 Doctor Unassigned, [place] [facility] US OVARY TORSION 2023-06-12 08:14:06 [facility] 2023-06-12 05:07:00 Raven Lieberman [facility] COMP. METABOLIC PANEL ([id number]) 2023-06-12 05:02:00 Raven Lieberman [facility] CBC WITH DIFF 2023-06-12 05:02:00 [facility] URINALYSIS 2023-06-12 05:02:00 Raven Lieberman [facility] NOTICE OF PRIVACY PRACTICES 2023-06-12 04:10:01 Doctor Unassigned, [place] [facility] CONSENT/REFUSAL FOR DIAGNOSIS AND TREATMENT 2023-06-12 04:06:29 Doctor Unassigned, [place] [facility] CT ABDOMEN PELVIS W CONTRAST 2023-05-28 07:44:47 Raven Lieberman [facility] POCT TEST 2023-05-28 06:40:00 Raven Lieberman [facility] COMP. METABOLIC PANEL ([id number]) 2023-05-28 06:34:00 Raven Lieberman [facility] CBC WITH DIFF 2023-05-28 06:34:00 Raven Lieberman [facility] URINALYSIS 2023-05-28 06:34:00 Raven Lieberman [facility] CONSENT/REFUSAL FOR DIAGNOSIS AND TREATMENT 2023-05-28 05:25:17 Doctor Unassigned, [place] [facility] [address] Removal Impacted Cerumen Using Irrigation/lavage, Unilateral 2023-04-30 00:00:00 Darryl Waggoner ASSIGNMENT OF BENEFITS 2023-03-07 04:54:51 Docto r Unassigned, [place] [facility] RAPID STREP SCREEN FOR GROUP A 2023-03-07 03:52:00 Hermilo Ricks [facility] CONSENT/REFUSAL FOR DIAGNOSIS AND TREATMENT 2023-03-07 02:58:48 Doctor Unassigned, [place] [facility] BASIC METABOLIC PANEL (NA, K, CL, CO2, GLUCOSE, BUN, CREATININE, CA) 2023-02-02 06:41:00 Selene Parra [facility] CBC WITH DIFF 2023-02-02 06:41:00 Selene Parra [facility] POCT TEST 2023-02-02 06:17:00 Selene Parra [facility] NOTICE OF PRIVACY PRACTICES 2023-02-02 06:00:34 Doctor Unassigned, [place] [facility] CONSENT/REFUSAL FOR DIAGNOSIS AND TREATMENT 2023-02-02 05:59:54 Doctor Unassigned, [place] [facility] CT ABDOMEN PELVIS W CONTRAST 2022-10-24 20:00:18 Suraj Scott [facility] US OVARY TORSION 2022-10-24 19:43:53 Suraj Scott [facility] LIPASE 2022-10-24 18:58:00 Suraj [facility] COMP. METABOLIC PANEL (28314) 2022-10-24 18:58:00 Suraj Scott [facility] CBC WITH DIFF 2022-10-24 18:58:00 [facility] 2022-10-24 18:58:00 Suraj Scott [facility] POCT TEST 2022-10-24 18:58:00 Odessa Scott [facility] CBC WITH DIFF 2022-07-21 13:07:00 Hermilo Ricks [facility] POCT TEST 2022-07-21 12:55:00 Jeanine Ricks [facility] URINALYSIS 2022-07-21 [facility]:52[facility]AT[facility] 2022-07-21 12:44:40 Doctor Unassigned, [place] [facility] CT ABDOMEN PELVIS W CONTRAST 2022-05-19 21:32:53 Cat Rutledge [facility] LIPASE 2022-05-19 20:49:00 [facility] COMP. METABOLIC PANEL (30122) 2022-05-19 20:49:00 Cat Rutledge [facility] CBC WITH DIFF 2022-05-19 20:49:00 Cat Rutledge [facility] URINALYSIS 2022-05-19 20:49:00 Cat Rutledge [facility] POCT TEST 2022-05-19 20:49:00 Paxton Rutledge [facility] URINE DRUG (IMMUNOASSAY) - COMPREHENSIVE DRUG SCREEN W/O REFLEX 2022-05-19 20:49:00 Cat Rutledge [facility] CONSENT/REFUSAL FOR DIAGNOSIS AND TREATMENT 2022-05-19 20:16:10 Doctor Unassigned, [place] [facility] POCT TEST 2022-05-13 07:37:00 Selene Parra [facility] LIPASE 2022-05-13 07:32:00 Selene Parra [facility] COMP. METABOLIC PANEL (23199) 2022-05-13 07:32:00 Selene Parra [facility] CBC WITH DIFF 2022-05-13 07:32:00 Selene Parra [facility] URINALYSIS 2022-05-13 07:32:00 Selene Parra [facility] CONSENT/REFUSAL FOR DIAGNOSIS AND TREATMENT 2022-05-13 06:55:55 Doctor Unassigned, [place] [facility] XR ANKLE <3 VW RIGHT 2022-04-01 22:28:50 Deny Rg [facility] URINALYSIS 2022-04-01 22:21:00 Christy Rg [facility] POCT TEST 2022-04-01 22:19:00 Christy Rg [facility] CONSENT/REFUSAL FOR DIAGNOSIS AND TREATMENT 2022-04-01 21:40:47 Doctor Unassigned, [place] [facility] POCT TEST 2021-10-25 19:54:00 Lisa Tran [facility] URINALYSIS 2021-10-25 19:53:00 Lisa Tran [facility] CONSENT/REFUSAL FOR DIAGNOSIS AND TREATMENT 2021-10-25 19:34:46 Doctor Unassigned, [place] [facility] NOTICE OF PRIVACY PRACTICES 2021-10-25 19:34:06 Doctor Unassigned, [place] [facility] Plan of Care Planned Activity Planned Date Details Comments Source Goal Plan of Care Note [code = 61091-6] Goal Plan of Care Note [code = 31516-8] Goal Plan of Care Note [code = 94313-9] Goal Plan of Care Note [code = 50618-5] Goal Plan of Care Note [code = 98388-0] Goal Plan of Care Note [code = 09217-1] Goal Plan of Care Note [code = 06563-9] Goal Plan of Care Note [code = 09668-1] Goal Plan of Care Note [code = 85541-0] Goal Plan of Care Note [code = 09887-7] Goal Plan of Care Note [code = 59259-0] Goal Plan of Care Note [code = 54352-3] Goal Plan of Care Note [code = 27252-3] Goal Plan of Care Note [code = 98085-9] Goal Plan of Care Note [code = 81786-1] Goal Plan of Care Note [code = 79161-5] Goal Plan of Care Note [code = 73422-3] Goal Plan of Care Note [code = 43990-0] Goal Plan of Care Note [code = 03956-7] Goal Plan of Care Note [code = 96780-4] Goal Plan of Care Note [code = 74734-1] Goal Plan of Care Note [code = 14220-9] Goal Plan of Care Note [code = 14313-6] Goal Plan of Care Note [code = 61840-1] Goal Plan of Care Note [code = 68198-6] Encounters Start Date/Time End Date/Time Encounter Type Admission Type Attending Clinicians Care Facility Care Department Encounter ID Source 2025-05-08 08:15:00 2025-05-08 08:15:00 Nurse Visit Nurse, Ang Rmchp Rgv Cprit Obgyn Lesa Felipe Nurse, Dat Rmchp Rgv Cprit Obgyn [facility] 1.2.840.114 350.1.13.10 4.2.7.2.686 [id number] [facility] 2025-04-14 08:10:00 2025-04-14 11:33:00 Emergency X HERMILO RICKS PHILLIP [facility] ERT [id number] [facility] 2025-03-08 21:35:00 2025-03-09 02:46:00 Emergency X DONI MARIE DONNELL [facility] E[facility] [id number] [facility] 2025-02-04 14:30:00 2025-02-04 16:26:04 Office Visit Pgy4 Kaye House Pgy4 [facility] [place] [facility] 1.840.114 350.1.13.10 4.2.7.2.686 [id number] [facility] 2025-01-27 12:28:00 2025-01-27 13:54:00 Emergency X PATRICE HOLLAND R[facility] ERT [id number] [facility] 2025-01-27 12:28:00 2025-01-27 13:54:00 Emergency Patrice Holland [facility] 1.840.114 350.1.13.10 4.2.7.2.686 [id number] [id number] [facility] 2025-01-19 00:00:00 2025-01-21 08:15:33 Telephone Pgy4 Pgy4 [facility] [place] [facility] 1.2840.114 350.1.13.10 4.2.7.2.686 [id number] [facility] 2025-01-17 02:31:00 2025-01-17 04:24:00 Emergency X SELENE PARRA WAKILI R[facility] ERT [id number] [facility] 2025-01-17 02:31:00 2025-01-17 04:24:00 Emergency Selene Parra [facility] 1.2.840.114 350.1.13.10 4.2.7.2.686 [id number] [id number] [facility] 2025-01-13 00:00:00 2025-01-16 10:06:01 Telephone Pgy4 Pgy4 [place] [facility] [place] [facility] 1.2.840.114 350.1.13.10 4.2.7.2.686 [id number] [facility] 2025-01-05 05:08:00 2025-01-05 09:45:00 Emergency X DONI MARIE DONNELL [facility] ERT [id number] [facility] 2025-01-05 05:08:00 2025-01-05 09:45:00 Emergency Hermilo Ricks Donnell [facility] 1.2.840.114 350.1.13.10 4.2.7.2.686 [id number] [facility] 2024-12-19 08:24:26 2024-12-19 08:24:26 Outpatient [facility] [id number] Darryl Tyron [place] 2024-12-18 15:04:52 2024-12-18 15:04:52 Outpatient SFA [facility] [id number] Darryl Tyron [place] 2024-12-17 23:56:00 2024-12-18 01:23:00 Emergency X GABY TERRY [facility] ERT [id number] [facility] 2024-12-17 23:56:00 2024-12-18 01:23:00 Emergency AdeGaby gray [facility] 1.2.840.114 350.1.13.10 4.2.7.2.686 [id number] [facility] 2024-12-18 00:00:00 2024-12-18 00:00:00 Outpatient Visit SFA [id number] Darryl Ackerman [place] 2024-12-12 11:22:49 2024-12-12 11:22:49 Outpatient [facility] [id number] Darryl Ackerman [place] 2024-11-28 09:13:53 2024-11-28 09:13:53 Outpatient [facility] [id number] Darryl Ackerman [place] 2024-11-28 00:00:00 2024-11-28 00:00:00 Outpatient Visit SFA [id number] Darryl Ackerman [place] 2024-11-27 09:21:53 2024-11-27 09:21:53 Outpatient [facility] [id number] Darryl Ackerman [place] 2024-11-27 00:00:00 2024-11-27 00:00:00 Outpatient Visit SFA [id number] Darryl Ackerman [place] 2024-11-18 21:05:00 2024-11-18 22:48:00 Emergency X SELENE PARRA WAKILI [facility] E[facility] [id number] [facility] 2024-11-18 21:05:00 2024-11-18 22:48:00 Emergency Selene Parra [facility] 1.2.840.114 350.1.13.10 4.2.7.2.686 [id number] [facility] 2024-11-08 22:41:00 2024-11-09 00:01:00 Emergency X CHRISTY RG PAMALA [facility] E[facility] [id number] [facility] 2024-11-08 22:41:00 2024-11-09 00:01:00 Emergency Christy Rg [facility] 1.2.840.114 350.1.13.10 4.2.7.2.686 [id number] [facility] 2024-10-22 09:57:20 2024-10-22 09:57:20 Outpatient [facility] [id number] Darryl Ackerman [place] 2024-10-22 00:00:00 2024-10-22 00:00:00 Outpatient Visit [facility] [id number] Darryl Ackerman [place] 2024-08-25 14:31:29 2024-08-25 14:31:29 Outpatient [facility] [id number] Darryl Ackerman [place] 2024-08-25 00:00:00 2024-08-25 00:00:00 Outpatient Visit [facility] [id number] Darryl Ackerman [place] 2024-07-25 07:55:00 2024-07-25 10:46:00 Emergency X DONI MARIE DONNELL [facility] [id number] [facility] 2024-07-25 07:55:00 2024-07-25 10:46:00 Emergency Doni Marie [facility] 1.2.840.114 350.1.13.10 4.2.7.2.686 [id number] [facility] 2024-07-09 15:24:23 2024-07-09 15:24:23 Outpatient [facility] [id number] Darryl Ackerman [place] 2024-07-09 00:00:00 2024-07-09 00:00:00 Outpatient Visit [facility] [id number] Darryl Ackerman [place] 2024-07-04 02:23:00 2024-07-04 06:07:00 Emergency X SELENE PARRA WAKILI [facility] E[facility] [id number] [facility] 2024-07-04 02:23:00 2024-07-04 06:07:00 Emergency Selene Parra NEREGGIE [facility] 1.2.840.114 350.1.13.10 4.2.7.2.686 [id number] [facility] 2024-03-18 13:39:14 2024-03-18 13:39:14 Outpatient [facility] [id number] Darryl Waggoner 2024-03-18 00:00:00 2024-03-18 00:00:00 Outpatient Visit [facility] [id number] Darryl Waggoner 2024-03-12 02:06:00 2024-03-12 06:07:00 Emergency X SELENE PARRA [facility] [id number] [facility] 2024-03-12 02:06:00 2024-03-12 06:07:00 Emergency Selene Parra [facility] 1.2.840.114 350.1.13.10 4.2.7.2.686 [id number] [facility] 2024-03-06 11:34:36 2024-03-06 11:34:36 Outpatient [facility] [id number] Darryl Waggoner 2024-03-06 00:00:00 2024-03-06 00:00:00 Outpatient Visit [facility] [id number] Darryl Waggoner 2024-02-03 03:57:00 2024-02-03 07:11:00 Emergency Selene Parra [facility] 1.2.840.114 350.1.13.10 4.2.7.2.686 [id number] [facility] 2024-01-01 22:28:00 2024-01-02 00:44:00 Emergency X DONI MAIRE DONNELL [facility] E[facility] [id number] [facility] 2024-01-01 22:28:00 2024-01-02 00:44:00 Emergency Doni Marie [facility] 1.2.840.114 350.1.13.10 4.2.7.2.686 [id number] [facility] 2023-12-31 15:24:49 2023-12-31 15:24:49 Outpatient [facility] [id number] Darryl Waggoner 2023-12-26 03:53:00 2023-12-26 05:24:00 Emergency X ANTONIETTABIJANDUSTY JAMESJOSE A [facility] E[facility] [id number] [facility] 2023-12-26 03:53:00 2023-12-26 05:24:00 Emergency Krysten Parraenrique Mcrae [facility] 1.2.840.114 350.1.13.10 4.2.7.2.686 [id number] [facility] 2023-12-17 08:09:17 2023-12-17 08:09:17 Outpatient [facility] [id number] Darryl Waggoner 2023-11-20 06:45:00 2023-11-20 10:52:00 Emergency X DONI MARIE RUST ERT [id number] [facility] 2023-11-20 06:45:00 2023-11-20 10:52:00 Emergency Doni Marie [facility] 1.2.840.114 350.1.13.10 4.2.7.2.686 [id number] [facility] 2023-11-14 13:08:33 2023-11-14 13:08:33 Outpatient [facility] [id number] Darryl Waggoner 2023-11-12 00:13:00 2023-11-12 01:10:00 Emergency X CHAYO SRIVASTAVA R[facility] ERT [id number] [facility] 2023-11-12 00:13:00 2023-11-12 01:10:00 Emergency Taif Chayo Perez [facility] 1.2.840.114 350.1.13.10 4.2.7.2.686 [id number] [facility] 2023-10-27 20:33:00 2023-10-27 20:58:00 Emergency X RUSTY Kavita RUST ERT [id number] [facility] 2023-10-27 20:33:00 2023-10-27 20:58:00 Emergency RustyKavita Soledad [facility] 1.2.840.114 350.1.13.10 4.2.7.2.686 [id number] [id number] [facility] 2023-09-17 09:14:32 2023-09-17 09:14:32 Outpatient [facility] [id number] Darryl Waggoner 2023-09-08 18:32:00 2023-09-08 21:46:00 Emergency X CHRISTY RG R[facility] ERT [id number] [facility] 2023-09-08 18:32:00 2023-09-08 21:46:00 Emergency Danie Ontiveros Pamala G [facility] 1.2.840.114 350.1.13.10 4.2.7.2.686 [id number] [facility] 2023-09-07 06:47:00 2023-09-07 08:22:00 Emergency X AITFJULIRA RUST ERT [id number] [facility] 2023-09-07 06:47:00 2023-09-07 08:22:00 Emergency Juli Srivastavara Perez [facility] 1.2.840.114 350.1.13.10 4.2.7.2.686 [id number] [facility] 2023-09-03 18:57:00 2023-09-03 22:03:00 Emergency X SELENE PARRA [facility] E[facility] [id number] [facility] 2023-09-03 18:57:00 2023-09-03 22:03:00 Emergency Selene Parra [facility] 1.2.840.114 350.1.13.10 4.2.7.2.686 [id number] [facility] 2023-08-28 16:44:07 2023-08-28 16:44:07 Outpatient [facility] [id number] Darryl Waggoner 2023-08-03 23:07:00 2023-08-04 01:08:00 Emergency X Kavita OJEDA RUST ERT [id number] [facility] 2023-08-03 23:07:00 2023-08-04 01:08:00 Emergency Kavita Ojeda Soledad [facility] 1.2.840.114 350.1.13.10 4.2.7.2.686 [id number] [facility] 2023-07-26 02:41:00 2023-07-26 04:25:00 Emergency X MEMO RESENDIZ RUST ERT [id number] [facility] 2023-07-26 02:41:00 2023-07-26 04:25:00 Emergency Memo Resendiz [facility] 1.2.840.114 350.1.13.10 4.2.7.2.686 [id number] [facility] 2023-07-25 07:36:00 2023-07-25 10:13:00 Emergency X DANII ARRIAGA RUST ERT [id number] [facility] 2023-07-25 07:36:00 2023-07-25 10:13:00 Emergency Schoenstein Rose Roxanne [facility] 1.2.840.114 350.1.13.10 4.2.7.2.686 [id number] [facility] 2023-07-24 08:14:55 2023-07-24 08:14:55 Outpatient [facility] [id number] Daryrl Waggoner 2023-07-12 07:35:00 2023-07-12 09:00:00 Emergency X DONI MARIE RUST ERT [id number] [facility] 2023-07-12 07:35:00 2023-07-12 09:00:00 Emergency Doni Marie [facility] 1.2.840.114 350.1.13.10 4.2.7.2.686 [id number] [facility] 2023-07-02 13:54:28 2023-07-02 13:54:28 Outpatient [facility] [id number] Darryl Waggoner 2023-06-26 13:20:40 2023-06-26 13:20:40 Outpatient [facility] [id number] Darryl Waggoner 2023-06-24 05:33:00 2023-06-24 06:50:00 Emergency X SELENE PARRA [facility] [id number] [facility] 2023-06-24 05:33:00 2023-06-24 06:50:00 Emergency Selene Parra [facility] 1.2.840.114 350.1.13.10 4.2.7.2.686 [id number] [facility] 2023-06-20 16:08:31 2023-06-20 16:08:31 Outpatient [facility] [id number] Darryl Waggoner 2023-06-17 23:54:00 2023-06-18 01:35:00 Emergency X MICHELLE TERRY [facility] E[facility] [id number] [facility] 2023-06-17 23:54:00 2023-06-18 01:35:00 Emergency Michelle Terry [facility] 1.2.840.114 350.1.13.10 4.2.7.2.686 [id number] [facility] 2023-06-16 10:56:55 2023-06-16 10:56:55 Outpatient [facility] [id number] Darryl Waggoner 2023-06-14 13:35:05 2023-06-14 13:35:05 Outpatient [facility] [id number] Darryl Waggoner 2023-06-12 11:11:07 2023-06-12 11:11:07 Outpatient [facility] [id number] Darryl Waggoner 2023-06-11 23:25:00 2023-06-12 04:49:00 Emergency X LIEBERMAN RAVEN [facility] E[facility] [id number] [facility] 2023-06-11 23:25:00 2023-06-12 04:49:00 Emergency Luisana Raven [facility] 1.2.840.114 350.1.13.10 4.2.7.2.686 [id number] [facility] 2023-06-05 11:34:51 2023-06-05 11:34:51 Outpatient [facility] [id number] Darryl Waggoner 2023-05-28 08:05:43 2023-05-28 08:05:43 Outpatient [facility] [id number] Darryl Ackerman [place] 2023-05-28 00:40:00 2023-05-28 04:06:00 Emergency X RAVEN LIEBERMAN [facility] ERT [id number] [facility] 2023-05-28 00:40:00 2023-05-28 04:06:00 Emergency Raven Lieberman [facility] 1.2.840.114 350.1.13.10 4.2.7.2.686 [id number] [facility] 2023-05-28 00:00:00 2023-05-28 00:00:00 Orders Only Doctor Unassigned, [place] [facility] 1.2.840.114 350.1.13.10 4.2.7.2.686 [id number] [facility] 2023-04-30 13:49:49 2023-04-30 13:49:49 Outpatient [facility] [id number] Darryl Ackerman [place] 2023-04-23 08:52:34 2023-04-23 08:52:34 Outpatient [facility] [id number] Darryl Ackerman [place] 2023-03-06 22:52:00 2023-03-07 00:12:00 Emergency X HERMILO RICKS [facility] [id number] [facility] 2023-03-06 22:52:00 2023-03-07 00:12:00 Emergency Hermilo [facility] 1.2.840.114 350.1.13.10 4.2.7.2.686 [id number] [facility] 2023-02-02 01:06:00 2023-02-02 02:49:00 Emergency X SELENE PARRA [facility] [id number] [facility] 2023-02-02 01:06:00 2023-02-02 02:49:00 Emergency Selene Parra [facility] 1.2.840.114 350.1.13.10 4.2.7.2.686 [id number] [facility] 2023-02-02 00:00:00 2023-02-02 00:00:00 Orders Only Doctor Unassigned, [place] [facility] 1.2.840.114 350.1.13.10 4.2.7.2.686 [id number] [facility] 2022-10-24 12:04:00 2022-10-24 15:45:00 Emergency X SURAJ SCOTT [facility] [id number] [facility] 2022-10-24 12:04:00 2022-10-24 15:45:00 Emergency Suraj Scott [facility] 1.2.840.114 350.1.13.10 4.2.7.2.686 [id number] [facility] 2022-09-25 10:04:19 2022-09-25 10:04:19 Outpatient [facility] [id number] Darryl Waggoner 2022-09-25 00:00:00 2022-09-25 00:00:00 Outpatient Visit [id number] 2022-07-21 07:49:00 2022-07-21 08:56:00 Emergency HERMILO OLSEN [facility] E[facility] [id number] [facility] 2022-07-21 07:49:00 2022-07-21 08:56:00 Emergency Hermilo Ricks [facility] 1.2.840.114 350.1.13.10 4.2.7.2.686 [id number] [facility] 2022-05-19 15:38:00 2022-05-19 17:24:00 Emergency CAT SCOTT [facility] ERT [id number] [facility] 2022-05-19 15:38:00 2022-05-19 17:24:00 Emergency Cat Rutledge [facility] 1.2.840.114 350.1.13.10 4.2.7.2.686 [id number] [facility] 2022-05-19 00:00:00 2022-05-19 00:00:00 Outpatient Visit [id number] -[id number] 2022-05-13 02:08:00 2022-05-13 04:24:00 Emergency Selene Parra [facility] 1.2.840.114 350.1.13.10 4.2.7.2.686 [id number] [facility] 2022-05-13 02:08:00 2022-05-13 04:24:00 Emergency X SELENE PARRA RUST ERT [id number] [facility] 2022-04-01 16:48:00 2022-04-01 18:39:00 Emergency X CHRISTY RG RUST ERT [id number] [facility] 2022-04-01 16:48:00 2022-04-01 18:39:00 Emergency Christy Rg [facility] 1.2.840.114 350.1.13.10 4.2.7.2.686 [id number] [facility] 2022-04-01 00:00:00 2022-04-01 00:00:00 Orders Only Doctor Unassigned, [place] [facility] 1.2.840.114 350.1.13.10 4.2.7.2.686 [id number] [facility] 2021-10-25 13:44:00 2021-10-25 15:25:00 Emergency X CRISTIAN TRANN RUST ERT [id number] [facility] 2021-10-25 13:44:00 2021-10-25 15:25:00 Emergency Cristian Trann R [facility] 1.2.840.114 350.1.13.10 4.2.7.2.686 [id number] [id number] [facility] 2021-10-25 00:00:00 2021-10-25 00:00:00 Orders Only Doctor Unassigned, [place] [facility] 1.2.840.114 350.1.13.10 4.2.7.2.686 [id number] [facility] 2021-05-03 17:49:00 2021-05-04 02:46:00 Emergency [facility] [id number] [facility] 2021-04-16 21:16:42 2021-04-22 13:04:00 Inpatient [facility] [id number] [facility] 2021-04-08 17:04:00 2021-04-08 17:04:00 Emergency X ROCHELLE GOLD RUST ERT [id number] [facility] 2021-04-08 02:42:00 2021-04-08 02:42:00 Emergency X LISA TRAN RUST ERT [id number] [facility] 2021-03-24 18:36:00 2021-03-24 18:36:00 Emergency X RUST ERT [id number] [facility] Results Test Description Test [...] suspicious sclerotic or lytic osseous lesions.[facility]* Test Item Value Reference Range Interpretation Comme nts LIPASE (test code = 0678185685) 62 U/L 0-220 Lab Interpretation (test cod e = 38498-7) Normal [facility] with [id number] 14:01:56* Test Item Value Reference Range Interpretation [...] g/dL 31.6-35.1 L RDW-SD (test code = 28260-4) 44.9 fL 39.0-49.9 RDW-CV (test code = 788-0) 16.6 % 12.0-15.5 H PLT (test code = 777-3) 327 166-358 MPV (test code = 43308-4) 9.7 fL 9.5-12.9 NRBC/100 WBC (test code = 3557296536) 0 0.0-10.0 NRBC x10^3 (test code = 8096247999) See_Comment [Automated messa ge] The system which generated this result transmitted reference range: 10*3/?L. The reference range was not used to interpret this result as normal/abnormal. GRAN MAT (NEUT) % (test code = 770-8) 56.4 % IMM GRAN % (test code = 4378903983) 0.2 % LYMPH % (test code = 736-9) 28.9 % MONO % (test code = 5905-5) 7.8 % EOS % (test code = 713-8) 6.2 % BASO % (test code = 706-2) 0.5 % GRAN MAT x10^3(ANC) (test code = 2186694679) 3.16 10*3/uL 1.88-7.09 IMM GRAN x10^3 (test code = 6032597044) 0.00-0.06 LYMPH x10^3 (test code = 731-0) 1.62 10*3/uL 1.32-3.29 MONO x10^3 (test code = 742-7) 0.44 10*3/uL 0.33-0.92 EOS x10^3 (test code = 711-2) 0.35 10*3/uL 0.03-0.39 BASO x10^3 (test code = 704-7) 0.03 10*3/uL 0.01-0.07 Lab Interpretation (test code = 73236-7) [facility]normal [facility] Ovary [id number] 05:13:32EXAM: US OVARY TORSION ORDERING PROVIDER: DONI MARIE HISTORY: 34 years-old Female; Provided indication: r/o ovarian torsion . LMP = 02/22/2025Pregnancy test = Negative. TECHNIQUE: Transabdominal and transvaginal ultrasound imaging and colorDoppler evaluation of the pelvis was performed. SpectralDoppler evaluationof the ovaries was performed. Drafting Technician images were obtained for therecord. COMPARISON: Pelvic [...] A small volume of free fluid is present.[facility] [id number] 03:06:00* Test Item Value Reference Range Interpretation Comme nts POCT PREG (test code = 1605) Negative On board controls acceptable with C Line (test code = 3574) Yes POCT PREG LOT # (test code = 3575) [id number] POCT PREG TEST DATE ( test code = 3576) 2026-07-22 Lab Interpretation (test cod e = 52227-5) Normal [facility] [id number] 19:16:00* Test Item Value Reference Range Interpretation Comme nts POCT PREG (test code = 1605) Negative On board controls acceptable with C Line (test code = 3574) Yes POCT PREG LOT # (test code = 3575) POCT PREG TEST DATE ( test code = 3576) Lab Interpretation (test cod e = 32101-1) Normal [facility] Glucose(Age >30days)2025-01-27 18:50:00* Test Item Value Reference Range Interpretation Comme nts POCT Glu (age>30days) (test code = 3342) 81 mg/dL 70-110 Lab Interpretation (test cod e = 22901-1) Normal [facility] GLUCOSE (AUTOMATED)2025-01-27 18:48:29* Test Item Value Reference Range Interpretation Comme nts POCT GLU (test code = 9526162451) 81 mg/dL 70-110 Lab Interpretation (test cod e = 29903-8) Normal [facility] Abdomen pelvis w [id number] 08:59:03Examination: Computed tomography of the abdomen and [...] suspicious lytic or blastic bony lesion. [facility] Metabolic [id number] 07:59:26* Test Item Value Reference Range Interpretation Comme nts NA (test code = 5510926121) 136 mmol/L 135-145 K (test code = 3874904898) 3.7 mmol/L 3.5-5.0 CL (test code = 6218524653) 108 mmol/L 98-108 CO2 TOTAL (test code = 0040926891) 18 mmol/L 23-31 L AGAP (test code = 5598097367) 10 2-16 BUN (test code = 1469448211) 6 mg/dL 7-23 L GLUCOSE (test code = 4303867105) 100 mg/dL 70-110 CREATININE (test code = 2160-0) 0.76 mg/dL 0.50-1.04 TOTAL BILI (test code = 1200541917) 0.3 mg/dL 0.1-1.1 CALCIUM (test code = 6520109006) 9.2 mg/dL 8.6-10.6 T PROTEIN (test code = 5729376266) 8.0 g/dL 6.3-8.2 ALBUMIN (test code = 6259552421) 4.7 g/dL 3.5-5.0 ALK PHOS (test code = 4087842370) 88 U/L 34-122 ALTv (test code = 1742-6) 15 U/L 5-35 AST(SGOT) (test code = 6953128384) 19 U/L 13-40 eGFR (test code = 52269-1) 106.3 mL/min/1.73m2 CKD-EPI eGFR (2020). Assuming creatinine has been stable day-to-day for at least three months, the eGFR indicates Category G1 (>= 90 mL/min/1.73 m2) Lab Interpretation (test code = 69371-5) Abnormal [facility]landsLip[facility], [id number] 07:59:26* Test Item Value Reference Range Interpretation Comme nts LIPASE (test code = 6570925941) 206 U/L 0-220 Lab Interpretation (test cod e = 27267-0) Normal [facility]CBC with Sihvcatqnhro4586-05-44 07:47:02* Test Item Value Reference Range Interpretation [...] g/dL 31.6-35.1 L RDW-SD (test code = 89527-8) 41.8 fL 39.0-49.9 RDW-CV (test code = 788-0) 15.8 % 12.0-15.5 H PLT (test code = 777-3) 391 166-358 H MPV (test code = 87095-7) 10.1 fL 9.5-12.9 NRBC/100 WBC (test code = 6183411316) 0.0 0.0-10.0 NRBC x10^3 (test code = 2794540224) See_Comment [Automated messa ge] The system which generated this result transmitted reference range: 10*3/?L. The reference range was not used to interpret this result as normal/abnormal. GRAN MAT (NEUT) % (test code = 770-8) 43.1 % IMM GRAN % (test code = 3840664522) 0.10 % LYMPH % (test code = 736-9) 43.8 % MONO % (test code = 5905-5) 9.1 % EOS % (test code = 713-8) 3.3 % BASO % (test code = 706-2) 0.6 % GRAN MAT x10^3(ANC) (test code = 4790658524) 3.34 10*3/uL 1.88-7.09 IMM GRAN x10^3 (test code = 3512386957) 0.00-0.06 LYMPH x10^3 (test code = 731-0) 3.40 10*3/uL 1.32-3.29 H MONO x10^3 (test code = 742-7) 0.71 10*3/uL 0.33-0.92 EOS x10^3 (test code = 711-2) 0.26 10*3/uL 0.03-0.39 BASO x10^3 (test code = 704-7) 0.05 10*3/uL 0.01-0.07 Lab Interpretation (test code = 20071-4) Abnormal [facility]landsPONC [id number] 07:32:00* Test Item Value Reference Range Interpretation Comme nts POCT PREG (test code = 1605) Negative On board controls acceptable with C Line (test code = 3574) Yes POCT PREG LOT # (test code = 3575) 500622 POCT PREG TEST DATE ( test code = 3576) Lab Interpretation (test cod e = 92716-9) Normal [facility] Abdomen pelvis w rsluleyg4135-37-23 13:55:36EXAM: CT ABDOMEN PELVIS W CONTRAST 01/05/2025 [...] BONES AND SOFT TISSUES: No aggressive bone lesions.[facility] POCT [id number] 11:58:00* Test Item Value Reference Range Interpretation Comme nts POCT PREG (test code = 1605) Negative On board controls acceptable with C Line (test code = 3574) Yes POCT PREG LOT # (test code = 3575) 802670 POCT PREG TEST DATE ( test code = 3576) 2978978 Lab Interpretation (test cod e = 93148-5) Normal [facility]landsComp. Metabolic Panel (11230)2025-01-05 10:57:03* Test Item Value Reference Range Interpretation Comme nts NA (test code = 2499881871) 137 mmol/L 135-145 K (test code = 6781042718) 3.7 mmol/L 3.5-5.0 CL (test code = 5629034456) 107 mmol/L 98-108 CO2 TOTAL (test code = 5360579200) 19 mmol/L 23-31 L AGAP (test code = 4105635242) 11 2-16 BUN (test code = 6429167124) 2 mg/dL 7-23 L GLUCOSE (test code = 1088628547) 114 mg/dL 70-110 H CREATININE (test code = 2160-0) 0.89 mg/dL 0.50-1.04 TOTAL BILI (test code = 4393023855) 0.3 mg/dL 0.1-1.1 CALCIUM (test code = 0699052891) 9.4 mg/dL 8.6-10.6 T PROTEIN (test code = 9221564056) 7.5 g/dL 6.3-8.2 ALBUMIN (test code = 3142143676) 4.3 g/dL 3.5-5.0 ALK PHOS (test code = 8846942793) 88 U/L 34-122 ALTv (test code = 1742-6) 21 U/L 5-35 AST(SGOT) (test code = 7602080719) 27 U/L 13-40 eGFR (test code = 78845-2) 87.9 mL/min/1.73m2 CKD-EPI eGFR (2020). Assuming creatinine has been stable day-to-day for at least three months, the eGFR indicates Category G2 (60 - 89 mL/min/1.73 m2) Lab Interpretation (test code = 04860-5) Abnormal [facility]XR Chest 1 [id number] 10:54:58Study: Single view chest. Ordering Physician: RAFAEL RICKS Date: 01/05/2025 5:15 AM History:Shortness of breath, chest pain, tachycardia COMPARISON: None. Findings: Single frontal view chest demonstrates a normal heart size. Thelungs are clear without infiltrate, pleural effusion or pneumothorax.Noacute osseous abnormality is identified.[facility]landsCb with Gweq4533-49-91 10:39:44 * Test Item Value Reference Range [...] g/dL 31.6-35.1 L RDW-SD (test code = 66707-3) 44.0 fL 39.0-49.9 RDW-CV (test code = 788-0) 16.2 % 12.0-15.5 H PLT (test code = 777-3) 400 166-358 H MPV (test code = 75513-0) 9.7 fL 9.5-12.9 NRBC/100 WBC (test code = 6063257511) 0.0 0.0-10.0 NRBC x10^3 (test code = 7077431116) See_Comment [Automated messa ge] The system which generated this result transmitted reference range: 10*3/?L. The reference range was not used to interpret this result as normal/abnormal. GRAN MAT (NEUT) % (test code = 770-8) 70.3 % IMM GRAN % (test code = 1142590325) 0.20 % LYMPH % (test code = 736-9) 16.6 % MONO % (test code = 5905-5) 8.0 % EOS % (test code = 713-8) 4.5 % BASO % (test code = 706-2) 0.4 % GRAN MAT x10^3(ANC) (test code = 6553913843) 5.79 10*3/uL 1.88-7.09 IMM GRAN x10^3 (test code = 5447088707) 0.00-0.06 LYMPH x10^3 (test code = 731-0) 1.37 10*3/uL 1.32-3.29 MONO x10^3 (test code = 742-7) 0.66 10*3/uL 0.33-0.92 EOS x10^3 (test code = 711-2) 0.37 10*3/uL 0.03-0.39 BASO x10^3 (test code = 704-7) 0.03 10*3/uL 0.01-0.07 Lab Interpretation (test code = 25111-8) [facility]normal [facility] [id number] 06:15:00* Test Item Value Reference Range Interpretation Comme nts POCT PREG (test code = 1605) Negative On board controls acceptable with C Line (test code = 3574) Yes POCT PREG LOT # (test code = 3575) 098257 POCT PREG TEST DATE ( test code = 3576) 03/09/26 Lab Interpretation (test cod e = 29573-7) Normal [facility]PAP TEST, THINPREP, IMAGED AND HPV HIGH RISK WITH [id number] 00:00:00* Test Item Value Reference Range Interpretation Comme nts SOURCE: (test code = 8001) Unspecified SLIDES: (test code = 8011) 1 LMP: (test code = 8021) NOT GIVEN SPECIMEN ADEQUACY: (test code = 41455) (NOTE) INTERPRETATION: (test code = 07483) NILM/NO EPITH. ABNORMALITY;SEE BELOW EXCHANGE CLERK: (test code = 8101) SE LOYOLA,CT(ASCP)IAC QC TECHNOLOGIST: (test code = 8111) Samy MedranoCT(ASCP) LOCATION: (test code = 55715) (NOTE) CPT: (test code = 8140) 90971 HPV HIGH RISK INTERP (test code = 75681) POSITIVE HPV 16 (test code = 34619) NEGATIVE HPV 18 (test code = 61952) NEGATIVE HPV, HR, OTHER GENOTYPES (test code = 79879) POSITIVE PDFE (test code = PDFReport) PDF Darryl F AustinXR ABDOMEN ACUTE [id number] 14:50:35EXAM: XR ABDOMEN ACUTE SERIES COMPARISON: Abdominal [...] stones identified. No acute bony abnormality is present.[facility] 2024-[facility]-25 13:23:00* Test Item Value Reference Range Interpretation Comme nts POCT PREG (test code = 1605) Negative On board controls acceptable with C Line (test code = 3574) Yes POCT PREG LOT # (test code = 3575) 212596 POCT PREG TEST DATE ( test code = 3576) 10/20/2025 Lab Interpretation (test cod e = 06370-0) Normal [facility] ABDOMEN PELVIS W [id number] 09:44:53Examination: Computed tomography of the abdomen and [...] no suspicious lytic or blastic bony lesion.[facility]POCT Qyuc6245-97-00 07:36:00 * Test Item Value Reference Range Interpretation Comme [facility] POCT PREG (test code = 1605) Negative On board controls acceptable with C Line (test code = 3574) Yes POCT PREG LOT # (test code = 3575) 132250 POCT PREG TEST DATE ( test code = 3576) 07/24/2025 Lab Interpretation (test cod e = 78286-5) Normal [facility] ABDOMEN PELVIS W [id number] 10:12:02Examination: Computed tomography of the abdomen and [...] show no suspicious lytic or blastic bony lesion.[facility]. Metabolic Panel (68538)2024-03-12 09:27:38* Test Item Value Reference Range Interpretation Comme nts NA (test code = 3546129007) 137 mmol/L 135-145 K (test code = 1807485614) 3.8 mmol/L 3.5-5.0 CL (test code = 1652518051) 107 mmol/L 98-108 CO2 TOTAL (test code = 8923183609) 20 mmol/L 23-31 L AGAP (test code = 5988742647) 10 2-16 BUN (test code = 2641001672) 6 mg/dL 7-23 L GLUCOSE (test code = 5613659842) 94 mg/dL 70-110 CREATININE (test code = 2160-0) 0.83 mg/dL 0.50-1.04 TOTAL BILI (test code = 1114701995) 0.4 mg/dL 0.1-1.1 CALCIUM (test code = 5288297541) 9.2 mg/dL 8.6-10.6 T PROTEIN (test code = 2822223597) 7.6 g/dL 6.3-8.2 ALBUMIN (test code = 3710404644) 4.2 g/dL 3.5-5.0 ALK PHOS (test code = 0406111692) 73 U/L 34-122 ALTv (test code = 1742-6) 18 U/L 5-35 AST(SGOT) (test code = 7064461877) 24 U/L 13-40 eGFR (test code = 98353-2) 96.2 mL/min/1.73m2 CKD-EPI eGFR (2020). Assuming creatinine has been stable day-to-day for at least three months, the eGFR indicates Category G1 (>= 90 mL/min/1.73 m2) Lab Interpretation (test code = 63105-9) Abnormal [facility]landsLipase2024-05-29 09:26:57* Test Item Value Reference Range Interpretation Comme nts LIPASE (test code = 1570126172) 108 U/L 0-220 Lab Interpretation (test cod e = 34958-4) Normal [facility] with [id number] 09:13:56* Test Item Value Reference Range Interpretation [...] g/dL 31.6-35.1 L RDW-SD (test code = 53780-2) 42.4 fL 39.0-49.9 RDW-CV (test code = 788-0) 15.7 % 12.0-15.5 H PLT (test code = 777-3) 346 166-358 MPV (test code = 10521-5) 9.8 fL 9.5-12.9 NRBC/100 WBC (test code = 3404627583) 0.0 0.0-10.0 NRBC x10^3 (test code = 9588348137) See_Comment [Automated ZuzuChea ge] The system which generated this result transmitted reference range: 10*3/?L. The reference range was not used to interpret this result as normal/abnormal. GRAN MAT (NEUT) % (test code = 770-8) 43.3 % IMM GRAN % (test code = 4942606750) 0.30 % LYMPH % (test code = 736-9) 42.6 % MONO % (test code = 5905-5) 7.5 % EOS % (test code = 713-8) 5.5 % BASO % (test code = 706-2) 0.8 % GRAN MAT x10^3(ANC) (test code = 8104368375) 3.21 10*3/uL 1.88-7.09 IMM GRAN x10^3 (test code = 5687040893) 0.00-0.06 LYMPH x10^3 (test code = 731-0) 3.16 10*3/uL 1.32-3.29 MONO x10^3 (test code = 742-7) 0.56 10*3/uL 0.33-0.92 EOS x10^3 (test code = 711-2) 0.41 10*3/uL 0.03-0.39 H BASO x10^3 (test code = 704-7) 0.06 10*3/uL 0.01-0.07 Lab Interpretation (test code = 09773-1) Abnormal [facility]landsEBV-Mononucleosis Uodiui9539-75-31 11:45:15* Test Item Value Reference Range Interpretation Comme nts EBV Mononucleosis Screen (te st code = 5545615650) Negative Negative Lab Interpretation (test cod e = 42358-1) Normal [facility]CT ABDOMEN PELVIS W [id number] 10:26:21ORDERING PHYSICIAN: SELENE PARRA CLINICAL HISTORY: Abdominal [...] recommended with a nonemergentabdominal MRI with and without contrast. The gallbladder, pancreas, spleen, and adrenals are unremarkable. The rightkidney is unremarkable. There is a 3 mm nonobstructive stone in the midpoleof the left kidney. There is no hydronephrosis bilaterally. Ovarianfollicles are seen bilaterally. Trace fluid is seen in the pelvis. Appendixis normal. The bones are unremarkable.[facility]landsPONC Qtvi0982-03-91 09:09:00* Test Item Value Reference Range Interpretation Comme [facility] POCT PREG (test code = 1605) Negative On board controls acceptable with C Line (test code = 3574) Yes POCT PREG LOT # (test code = 3575) 733703 POCT PREG TEST DATE ( test code = 3576) 11/21/2024 Lab Interpretation (test cod e = 01576-2) Normal [facility]ICAL PATHOLOG[facility] [id number] 09:50:51* Test Item Value Reference Range Interpretation Comme [facility] DIAGNOSIS: (test code = 8200) (NOTE) A) Conization (L EEP) - EctocervixHigh grade squamous intraepithelial lesion (CIN2), extendingfocally to endocervical and ectocervical/stromal margins. B) Conization (LEEP) - EndocervixFocal high grade squamous intraepithelial lesion (CIN2).Surgical margins negative for dysplasia. COMMENTS: (test code = 8205) (NOTE) The previously r eported abnormal Pap (accession # [id number]) isreviewed. The biopsy material more clearly displays [...] TanNUMBER OF TISSUE PIECES: 2SUBMITTED IN CASSETTE(S): [id number]: FormalinCOMMENTS:Consists of a 1.9x1.1x0.5 cm irregularly shaped [...] TanNUMBER OF TISSUE PIECES: 1SUBMITTED IN CASSETTE(S): [id number]: FormalinCOMMENTS:[place] shaped rubbery tissue fragment partially surfaced bytan-white ectocervix. Os is inked blue by clinician. Endocervicalmargin inked blue. All remaining margins inked orange. Radiallysectioned x 9 and entirely submitted. Specimen fell apart uponsectioning. PATHOLOGIST: (test code = 8250) (NOTE) Heide Shipley MD, Board-certified Anatomic and ClinicalPathology, Hematopathology Specimens processed and interpreted at [facility], [address] [place] [address], , CLIA: [id number] CPT: (test code = 8400) (NOTE) 13881q1 UNLESS O THERWISE INDICATED, ALL TESTING PERFORMED AT CLINICAL PATHOLOGY [employer] [address] [place] [address] OPERATIONAL RISK MANAGER: ANIBAL PAREDES M.D. CLIA NUMBER [id number] [facility] [place]. [id number] SURGICAL PATHOLOGY [id number] 00:00:00* Test Item Value Reference Range Interpretation [...] = PDFReport) PDF Darryl Ackerman AustinSURGICAL PATHOLOGY [id number] 00:00:00* Test Item Value Reference Range Interpretation [...] = PDFReport) PDF Darryl Ackerman AustinSURGICAL PATHOLOGY [id number] 00:00:00* Test Item Value Reference Range Interpretation [...] = PDFReport) PDF Darryl Ackerman AustinSURGICAL PATHOLOGY [id number] 00:00:00* Test Item Value Reference Range Interpretation Comme nts DIAGNOSIS: (test code = 8200) (NOTE) COMMENTS: (test code = 8205) (NOTE) MICROSCOPIC DESCRIPTION: (te st code = 8210) (NOTE) CLINICAL DATA: (test code = 8401) (NOTE) GROSS DESCRIPTION: (test code = 8220) (NOTE) PATHOLOGIST: (test code = 8250) (NOTE) CPT: (test code = 8400) (NOTE) PDFE (test code = PDFReport) PDF Darryl Ackerman [facility] [id number] 00:00:00* Test Item Value Reference Range Interpretation Comme nts DIAGNOSIS: (test code = 8200) (NOTE) COMMENTS: (test code = 8205) (NOTE) MICROSCOPIC DESCRIPTION: (te st code = 8210) (NOTE) CLINICAL DATA: (test code = 8401) (NOTE) GROSS DESCRIPTION: (test code = 8220) (NOTE) PATHOLOGIST: (test code = 8250) (NOTE) CPT: (test code = 8400) (NOTE) PDFE (test code = PDFReport) PDF [facility]ckerman [facility] [id number] 00:00:00* Test Item Value Reference Range Interpretation Comme nts DIAGNOSIS: (test code = 8200) (NOTE) COMMENTS: (test code = 8205) (NOTE) MICROSCOPIC DESCRIPTION: (te st code = 8210) (NOTE) CLINICAL DATA: (test code = 8401) (NOTE) GROSS DESCRIPTION: (test code = 8220) (NOTE) PATHOLOGIST: (test code = 8250) (NOTE) CPT: (test code = 8400) (NOTE) PDFE (test code = PDFReport) PDF Darryl Ackerman [facility] PATH[facility] [id number] 00:00:00* Test Item Value Reference Range Interpretation [...] = PDFReport) PDF Darryl Ackerman AustinSURGICAL PATHOLOGY [id number] 00:00:00* Test Item Value Reference Range Interpretation [...] code = PDFReport) PDF Darryl Chang OVARY [id number] 16:27:21EXAM: US OVARY TORSION HISTORY: 32 years [...] [place]: Trace volume free fluid is present.[facility]CT ABDOMEN PELVIS W [id number] 15:15:04EXAM: CT ABDOMEN PELVIS W CONTRAST HISTORY: [...] No suspicious lytic or sclerotic bony lesions arepresent.[facility]. METABOLIC PANEL (63213)2023-11-20 14:09:45* Test Item Value Reference Range Interpretation Comme nts NA (test code = 8624767567) 135 mmol/L 135-145 K (test code = 7237841019) 4.1 mmol/L 3.5-5.0 CL (test code = 0107545186) 112 mmol/L 98-108 H CO2 TOTAL (test code = 5912303463) 17 mmol/L 23-31 L AGAP (test code = 2766266055) 6 2-16 BUN (test code = 2668245985) 10 mg/dL 7-23 GLUCOSE (test code = 0178647195) 95 mg/dL 70-110 CREATININE (test code = 6392775313) 0.72 mg/dL 0.50-1.04 TOTAL BILI (test code = 6926970294) 0.2 mg/dL 0.1-1.1 CALCIUM (test code = 4571806765) 9.0 mg/dL 8.6-10.6 T PROTEIN (test code = 6177724045) 7.6 g/dL 6.3-8.2 ALBUMIN (test code = 9463286140) 4.3 g/dL 3.5-5.0 ALK PHOS (test code = 9839409101) 81 U/L 34-122 ALTv (test code = 1742-6) 23 U/L 5-35 AST(SGOT) (test code = 9396764427) 26 U/L 13-40 eGFR (test code = 60925-1) 114.8 mL/min/1.73m2 CKD-EPI eGFR (2020). Assuming creatinine has been stable day-to-day for at least three months, the eGFR indicates Category G1 (>= 90 mL/min/1.73 m2) Lab Interpretation (test code = 34533-4) Abnormal [facility] WITH [id number] 13:53:43* Test Item Value Reference Range Interpretation [...] g/dL 31.6-35.1 L RDW-SD (test code = 20027-3) 42.6 fL 39.0-49.9 RDW-CV (test code = 788-0) 15.5 % 12.0-15.5 PLT (test code = 777-3) 364 166-358 H MPV (test code = 77857-1) 10.0 fL 9.5-12.9 NRBC/100 WBC (test code = 2340833852) 0.0 0.0-10.0 NRBC x10^3 (test code = 3385137111) See_Comment [Automated messa ge] The system which generated this result transmitted reference range: 10*3/?L. The reference range was not used to interpret this result as normal/abnormal. GRAN MAT (NEUT) % (test code = 770-8) 59.8 % IMM GRAN % (test code = 4534673021) 0.30 % LYMPH % (test code = 736-9) 27.8 % MONO % (test code = 5905-5) 9.2 % EOS % (test code = 713-8) 2.1 % BASO % (test code = 706-2) 0.8 % GRAN MAT x10^3(ANC) (test code = 4833121443) 3.70 10*3/uL 1.88-7.09 IMM GRAN x10^3 (test code = 6164644886) 0.00-0.06 LYMPH x10^3 (test code = 731-0) 1.72 10*3/uL 1.32-3.29 MONO x10^3 (test code = 742-7) 0.57 10*3/uL 0.33-0.92 EOS x10^3 (test code = 711-2) 0.13 10*3/uL 0.03-0.39 BASO x10^3 (test code = 704-7) 0.05 10*3/uL 0.01-0.07 Lab Interpretation (test code = 58608-0) Abnormal [facility] [id number] 13:26:00* Test Item Value Reference Range Interpretation Comme nts POCT PREG (test code = 1605) Negative On board controls acceptable with C Line (test code = 3574) Yes POCT PREG LOT # (test code = 3575) 997013 POCT PREG TEST DATE ( test code = 3576) 01/20/2025 Lab Interpretation (test cod e = 15955-9) Normal [facility] [id number] 13:28:00* Test Item Value Reference Range Interpretation Comme nts POCT PREG (test code = 1605) Negative On board controls acceptable with C Line (test code = 3574) Yes POCT PREG LOT # (test code = 3575) 436303 POCT PREG TEST DATE ( test code = 3576) 12/23/2024 Lab Interpretation (test cod e = 50290-4) Normal [facility]landsCT/NG, NAAT, [id number] 18:43:32* Test Item Value Reference Range Interpretation Comme nts CHLAMYDIA, NAAT, URINE (test code = 82583) NEGATIVE NEGATIVE Testing is perfo rmed with Lucie HARRY 6800/8800 systems usingreal-time polymerase chain reaction (PCR) method. A negative result does not exclude low level infection, specimensampling error, or collection error. GONORRHEA, NAAT, URINE (test code = 60060) NEGATIVE NEGATIVE Testing is perfo rmed with Lucie HARRY 6800/8800 systems usingreal-time polymerase chain reaction (PCR) method. A negative result does not exclude low level infection, specimensampling error, or collection error. UNLESS OTHERWISE INDICATED, ALL TESTING PERFORMED AT [facility], [facility]. [address] [place] [address] OPERATIONAL RISK MANAGER: ANIBAL PAREDES M.D. CLIA NUMBER [id number] [facility] [place]. [id number] TRICHOMONAS, NAAT, [id number] 16:46:16* Test Item Value Reference Range Interpretation Comme nts TRICHOMONAS, NAAT, URINE (test code = 26965) NEGATIVE NEGATIVE Testing is perfo rmed with Lucie HARRY 6800/8800 method usingreal-time polymerase chain reaction (PCR) method. A negative result does not exclude low level infection, specimensampling error, or collection error. TRICHOMONAS, URINE, [id number] 00:00:00* Test Item Value Reference Range Interpretation Comme nts TRICHOMONAS, NAAT, URINE (te st code = 81188) NEGATIVE Darryl F AustinCT/NG, TMA, [id number] 00:00:00* Test Item Value Reference Range Interpretation Comme nts CHLAMYDIA, NAAT, URINE (test code = 30261) NEGATIVE GONORRHEA, NAAT, URINE (test code = 27568) NEGATIVE Darryl F AustinTRICHOMONAS, URINE, [id number] 00:00:00* Test Item Value Reference Range Interpretation Comme nts TRICHOMONAS, NAAT, URINE (te st code = 51645) NEGATIVE Darryl F AustinCT/NG, TMA, [id number] 00:00:00* Test Item Value Reference Range Interpretation Comme nts CHLAMYDIA, NAAT, URINE (test code = 09239) NEGATIVE GONORRHEA, NAAT, URINE (test code = 24735) NEGATIVE Darryl F AustinTRICHOMONAS, URINE, [id number] 00:00:00* Test Item Value Reference Range Interpretation Comme nts TRICHOMONAS, NAAT, URINE (te st code = 14835) NEGATIVE Darryl F AustinCT/NG, TMA, [id number] 00:00:00* Test Item Value Reference Range Interpretation Comme nts CHLAMYDIA, NAAT, URINE (test code = 99336) NEGATIVE GONORRHEA, NAAT, URINE (test code = 18231) NEGATIVE Darryl F AustinTRICHOMONAS, URINE, [id number] 00:00:00* Test Item Value Reference Range Interpretation Comme nts TRICHOMONAS, NAAT, URINE (te st code = 27153) NEGATIVE Darryl F AustinCT/NG, TMA, [id number] 00:00:00* Test Item Value Reference Range Interpretation Comme nts CHLAMYDIA, NAAT, URINE (test code = 41028) NEGATIVE GONORRHEA, NAAT, URINE (test code = 39486) NEGATIVE Darryl F AustinTRICHOMONAS, URINE, [id number] 00:00:00* Test Item Value Reference Range Interpretation Comme nts TRICHOMONAS, NAAT, URINE (te st code = 78322) NEGATIVE Darryl F AustinCT/NG, TMA, [id number] 00:00:00* Test Item Value Reference Range Interpretation Comme nts CHLAMYDIA, NAAT, URINE (test code = 14831) NEGATIVE GONORRHEA, NAAT, URINE (test code = 75172) NEGATIVE Darryl F AustinTRICHOMONAS, URINE, [id number] 00:00:00* Test Item Value Reference Range Interpretation Comme nts TRICHOMONAS, NAAT, URINE (te st code = 93757) NEGATIVE Darryl F AustinCT/NG, TMA, [id number] 00:00:00* Test Item Value Reference Range Interpretation Comme nts CHLAMYDIA, NAAT, URINE (test code = 63469) NEGATIVE GONORRHEA, NAAT, URINE (test code = 47899) NEGATIVE Darryl F AustinTRICHOMONAS, URINE, [id number] 00:00:00* Test Item Value Reference Range Interpretation Comme nts TRICHOMONAS, NAAT, URINE (te st code = 00973) NEGATIVE Darryl F AustinCT/NG, TMA, [id number] 00:00:00* Test Item Value Reference Range Interpretation Comme nts CHLAMYDIA, NAAT, URINE (test code = 63900) NEGATIVE GONORRHEA, NAAT, URINE (test code = 04150) NEGATIVE Darryl F AustinTRICHOMONAS, URINE, [id number] 00:00:00* Test Item Value Reference Range Interpretation Comme nts TRICHOMONAS, NAAT, URINE (te st code = 47178) NEGATIVE Darryl F AustinCT/NG, TMA, [id number] 00:00:00* Test Item Value Reference Range Interpretation Comme nts CHLAMYDIA, NAAT, URINE (test code = 95853) NEGATIVE GONORRHEA, NAAT, URINE (test code = 98371) NEGATIVE Darryl Ackerman AustinPOCT [id number] 12:56:00* Test Item Value Reference Range Interpretation Comme nts POCT PREG (test code = 1605) Negative On board controls acceptable with C Line (test code = 3574) Yes POCT PREG LOT # (test code = 3575) [facility] [id number] POCT PREG TEST DATE (test code = 3576) 12/12/2024 Lab Interpretation (test cod e = 49564-8) [facility] [id number] 10:24:44* Test Item Value Reference Range Interpretation [...] TanNUMBER OF TISSUE PIECES: 1SUBMITTED IN CASSETTE(S): [id number]: FormalinCOMMENTS:Entirely submitted intact. F) SPECIMEN LABELED: Cervix 8:00SIZE/WEIGHT: 0.2x0.1x0.1 cm SPECIMEN COLOR: TanNUMBER OF TISSUE PIECES: 1SUBMITTED IN CASSETTE(S): [id number]: FormalinCOMMENTS:Entirely submitted intact. A) SPECIMEN LABELED: EndometriumSIZE/WEIGHT: 1.4x1.3x0.2 cm AggregateSPECIMEN COLOR: TanNUMBER OF TISSUE PIECES: multipleSUBMITTED IN CASSETTE(S): [id number]: FormalinCOMMENTS:Filtered and entirely submitted. B) SPECIMEN LABELED: EndocervixSIZE/WEIGHT: 1.7x1.5x0.3 cm AggregateSPECIMEN COLOR: TanNUMBER OF TISSUE PIECES: multipleSUBMITTED IN CASSETTE(S): [id number]: FormalinCOMMENTS:Filtered and entirely submitted. C) SPECIMEN LABELED: Cervix 1:00SIZE/WEIGHT: 0.4x0.3x0.1 cm SPECIMEN COLOR: TanNUMBER OF TISSUE PIECES: 1SUBMITTED IN CASSETTE(S): [id number]: FormalinCOMMENTS:Entirely submitted intact. D) SPECIMEN LABELED: Cervix 3:00SIZE/WEIGHT: 0.2x0.2x0.1 cm SPECIMEN COLOR: TanNUMBER OF TISSUE PIECES: 1SUBMITTED IN CASSETTE(S): [id number]: FormalinCOMMENTS:Entirely submitted intact. PATHOLOGIST: (test code = 8250) (NOTE) Gita Morocho M.D., P h.D., Board Certified in Anatomic and ClinicalPathology, Cytopathology Specimens processed and interpreted at [facility], [address] [place] [address], , CLIA: [id number] CPT: (test code = 8400) (NOTE) [id number] UNLESS O THERWISE INDICATED, ALL TESTING PERFORMED AT [facility] [address] [place] [address] OPERATIONAL RISK MANAGER: ANIBAL PAREDES M.D. CLIA NUMBER [id number] [facility] [place]. [id number] SURGICAL PATHOLOGY [id number] 00:00:00* Test Item Value Reference Range Interpretation Comme nts DIAGNOSIS: (test code = 8200) (NOTE) MICROSCOPIC DESCRIPTION: (te st code = 8210) (NOTE) CLINICAL DATA: (test code = 8401) (NOTE) GROSS DESCRIPTION: (test code = 8220) (NOTE) PATHOLOGIST: (test code = 8250) (NOTE) CPT: (test code = 8400) (NOTE) PDFE (test code = PDFReport) PDF Darryl Ackerman AustinSURGICAL PATHOLOGY [id number] 00:00:00* Test Item Value Reference Range Interpretation Comme nts DIAGNOSIS: (test code = 8200) (NOTE) MICROSCOPIC DESCRIPTION: (te st code = 8210) (NOTE) CLINICAL DATA: (test code = 8401) (NOTE) GROSS DESCRIPTION: (test code = 8220) (NOTE) PATHOLOGIST: (test code = 8250) (NOTE) CPT: (test code = 8400) (NOTE) PDFE (test code = PDFReport) PDF Darryl Ackerman AustinSURGICAL PATHOLOGY [id number] 00:00:00* Test Item Value Reference Range Interpretation Comme nts DIAGNOSIS: (test code = 8200) (NOTE) MICROSCOPIC DESCRIPTION: (te st code = 8210) (NOTE) CLINICAL DATA: (test code = 8401) (NOTE) GROSS DESCRIPTION: (test code = 8220) (NOTE) PATHOLOGIST: (test code = 8250) (NOTE) CPT: (test code = 8400) (NOTE) PDFE (test code = PDFReport) PDF [facility]erman [facility] [id number] 00:00:00* Test Item Value Reference Range Interpretation Comme nts DIAGNOSIS: (test code = 8200) (NOTE) MICROSCOPIC DESCRIPTION: (te st code = 8210) (NOTE) CLINICAL DATA: (test code = 8401) (NOTE) GROSS DESCRIPTION: (test code = 8220) (NOTE) PATHOLOGIST: (test code = 8250) (NOTE) CPT: (test code = 8400) (NOTE) PDFE (test code = PDFReport) PDF [facility]erman [facility] [id number] 00:00:00* Test Item Value Reference Range Interpretation Comme nts DIAGNOSIS: (test code = 8200) (NOTE) MICROSCOPIC DESCRIPTION: (te st code = 8210) (NOTE) CLINICAL DATA: (test code = 8401) (NOTE) GROSS DESCRIPTION: (test code = 8220) (NOTE) PATHOLOGIST: (test code = 8250) (NOTE) CPT: (test code = 8400) (NOTE) PDFE (test code = PDFReport) PDF [facility]ryl [facility]ckerman [facility] [id number] 00:00:00* Test Item Value Reference Range Interpretation Comme nts DIAGNOSIS: (test code = 8200) (NOTE) MICROSCOPIC DESCRIPTION: (te st code = 8210) (NOTE) CLINICAL DATA: (test code = 8401) (NOTE) GROSS DESCRIPTION: (test code = 8220) (NOTE) PATHOLOGIST: (test code = 8250) (NOTE) CPT: (test code = 8400) (NOTE) PDFE (test code = PDFReport) PDF Darryl Ackerman [facility] [id number] 00:00:00* Test Item Value Reference Range Interpretation Comme nts DIAGNOSIS: (test code = 8200) (NOTE) MICROSCOPIC DESCRIPTION: (te st code = 8210) (NOTE) CLINICAL DATA: (test code = 8401) (NOTE) GROSS DESCRIPTION: (test code = 8220) (NOTE) PATHOLOGIST: (test code = 8250) (NOTE) CPT: (test code = 8400) (NOTE) PDFE (test code = PDFReport) PDF Darryl Ackerman AustinSURGICAL PATHOLOGY [id number] 00:00:00* Test Item Value Reference Range Interpretation Comme nts DIAGNOSIS: (test code = 8200) (NOTE) MICROSCOPIC DESCRIPTION: (te st code = 8210) (NOTE) CLINICAL DATA: (test code = 8401) (NOTE) GROSS DESCRIPTION: (test code = 8220) (NOTE) PATHOLOGIST: (test code = 8250) (NOTE) CPT: (test code = 8400) (NOTE) PDFE (test code = PDFReport) PDF Darryl Ackerman AustinVAGINAL PATHOGENS DNA [id number] 13:41:36* Test Item Value Reference Range Interpretation Comme nts JAZ SPECIES (test code = 92111) NEGATIVE NEGATIVE G. VAGINALIS (test code = 55218) NEGATIVE NEGATIVE T. VAGINALIS (test code = 01174) NEGATIVE NEGATIVE Note: [facility] VPIII Microbial Identification Testis a DNA probe test intended for use in the detectionand identification of Jaz species, Gardnerellavaginalis and Trichomonas vaginalis nucleic acid. UNLESS OTHERWISE INDICATED, ALL TESTING PERFORMED AT [facility] [address] [place] [address] OPERATIONAL RISK MANAGER: ANIBAL PAREDES M.D. [place] NUMBER [id number] [facility] [place]. [id number] VAGINAL PATHOGENS DNA [id number] 00:00:00* Test Item Value Reference Range Interpretation Comme nts JAZ SPECIES (test code = 52523) NEGATIVE G. VAGINALIS (test code = 35533) NEGATIVE T. VAGINALIS (test code = 17390) NEGATIVE Darryl Ackerman AustinVAGINAL PATHOGENS DNA [id number] 00:00:00* Test Item Value Reference Range Interpretation Comme nts JAZ SPECIES (test code = 41423) NEGATIVE G. VAGINALIS (test code = 58746) NEGATIVE T. VAGINALIS (test code = 65834) NEGATIVE Darryl Ackerman AustinVAGINAL PATHOGENS DNA [id number] 00:00:00* Test Item Value Reference Range Interpretation Comme nts JAZ SPECIES (test code = ) NEGATIVE G. VAGINALIS (test code = 22010) NEGATIVE T. VAGINALIS (test code = 45427) NEGATIVE Darryl F AustinVAGINAL PATHOGENS DNA [id number] 00:00:00* Test Item Value Reference Range Interpretation Comme nts JAZ SPECIES (test code = 34642) NEGATIVE G. VAGINALIS (test code = 10315) NEGATIVE T. VAGINALIS (test code = 31158) NEGATIVE Darryl F AustinVAGINAL PATHOGENS DNA [id number] 00:00:00* Test Item Value Reference Range Interpretation Comme nts JAZ SPECIES (test code = 51599) NEGATIVE G. VAGINALIS (test code = 49777) NEGATIVE T. VAGINALIS (test code = 60862) NEGATIVE Darryl F AustinVAGINAL PATHOGENS DNA [id number] 00:00:00* Test Item Value Reference Range Interpretation Comme nts JAZ SPECIES (test code = 77871) NEGATIVE G. VAGINALIS (test code = 46047) NEGATIVE T. VAGINALIS (test code = 48340) NEGATIVE Darryl F AustinVAGINAL PATHOGENS DNA [id number] 00:00:00* Test Item Value Reference Range Interpretation Comme nts JAZ SPECIES (test code = 78137) NEGATIVE G. VAGINALIS (test code = 09442) NEGATIVE T. VAGINALIS (test code = 57517) NEGATIVE Darryl F AustinVAGINAL PATHOGENS DNA [id number] 00:00:00* Test Item Value Reference Range Interpretation Comme nts JAZ SPECIES (test code = 11478) NEGATIVE G. VAGINALIS (test code = 40101) NEGATIVE T. VAGINALIS (test code = 72992) NEGATIVE Darryl F AustinCOMP. METABOLIC PANEL ([id number])[id number] 05:34:53* Test Item Value Reference Range Interpretation Comme nts NA (test code = 9300305007) 137 mmol/L 135-145 K (test code = 0999500399) 3.9 mmol/L 3.5-5.0 CL (test code = 8054205570) 106 mmol/L 98-108 CO2 TOTAL (test code = 1282595831) 24 mmol/L 23-31 AGAP (test code = 4123133575) 7 2-16 BUN (test code = 4556194382) 10 mg/dL 7-23 GLUCOSE (test code = 7938514963) 90 mg/dL 70-110 CREATININE (test code = 1743484548) 0.94 mg/dL 0.50-1.04 TOTAL BILI (test code = 8162367253) 0.1-1.1 L CALCIUM (test code = 3885507356) 9.1 mg/dL 8.6-10.6 T PROTEIN (test code = 6770684954) 6.9 g/dL 6.3-8.2 ALBUMIN (test code = 2253896542) 4.1 g/dL 3.5-5.0 ALK PHOS (test code = 2529088813) 72 U/L 34-122 ALTv (test code = 1742-6) 24 U/L 5-35 AST(SGOT) (test code = 3654042890) 28 U/L 13-40 eGFR (test code = 7341832934) 69.5 mL/min/1.73m2 ELIA (test code = ELIA) [...] imaging tests). Lab Interpretation (test code = 80881-2) Abnormal [facility] WITH [id number] 05:16:33* Test Item Value Reference Range Interpretation Comme nts WBC (test code = 6690-2) 7.81 See_Comment [Automated ZuzuChea ge] The system which generated this result transmitted reference range: 4.30 - 11.10 10*3/?L. The reference range was not used to interpret this result as normal/abnormal. RBC (test code = 789-8) 3.89 See_Comment L [Automated ZuzuChea ge] The system which generated this result [...] g/dL 31.6-35.1 L RDW-SD (test code = 19893-0) 48.2 fL 39.0-49.9 RDW-CV (test code = 788-0) 17.9 % 12.0-15.5 H PLT (test code = 777-3) 327 See_Comment [Automated ZuzuChea ge] The system which generated this result transmitted reference range: 166 - 358 10*3/?L. The reference range was not used to interpret this result as normal/abnormal. MPV (test code = 37329-7) 9.7 fL 9.5-12.9 NRBC/100 WBC (test code = 3725912980) 0.0 See_Comment [Automated Ascenz ssage] The system which generated this result transmitted reference range: 0.0 - 10.0 /100 WBCs. The reference range was not used to interpret this result as normal/abnormal. NRBC x10^3 (test code = 9808840717) See_Comment [Automated messa ge] The system which generated this result transmitted reference range: 10*3/?L. The reference range was not used to interpret this result as normal/abnormal. GRAN MAT (NEUT) % (test code = 770-8) 40.4 % IMM GRAN % (test code = 7860970180) 0.10 % LYMPH % (test code = 736-9) 45.5 % MONO % (test code = 5905-5) 9.0 % EOS % (test code = 713-8) 4.5 % BASO % (test code = 706-2) 0.5 % GRAN MAT x10^3(ANC) (test code = 6090700480) 3.16 10*3/uL 1.88-7.09 IMM GRAN x10^3 (test code = 7284076252) 0.00-0.06 LYMPH x10^3 (test code = 731-0) 3.55 10*3/uL 1.32-3.29 H MONO x10^3 (test code = 742-7) 0.70 10*3/uL 0.33-0.92 EOS x10^3 (test code = 711-2) 0.35 10*3/uL 0.03-0.39 BASO x10^3 (test code = 704-7) 0.04 10*3/uL 0.01-0.07 Lab Interpretation (test code = 99892-4) [facility]normal [facility] [id number] 05:07:00* Test Item Value Reference Range Interpretation Comme nts POCT PREG (test code = 1605) Negative On board controls acceptable with C Line (test code = 3574) Yes POCT PREG LOT # (test code = 3575) [id number] POCT PREG TEST DATE ( test code = 3576) 10/17/2024 Lab Interpretation (test cod e = 28278-0) Normal [facility] TEST, THINPREP, [id number] 18:32:20 * Test Item Value Reference Range Interpretation Comme nts SOURCE: (test code = 8001) Cervical SLIDES: (test code = 8011) 1 LMP: (test code = 8021) 05/17/2023 SPECIMEN ADEQUACY: (test code = 95351) (NOTE) Satisfactory for evaluation. Endocervical cells/transformation zone component present. INTERPRETATION: (test code = 90857) ASCUS/EPITH. ABNORMALITY; SEE BELOW A - ------- EPITHELIAL CELL ABNORMALITY Atypical squamous cells of undetermined significance (ASC-US) OTHER COMMENTS: (test code = 8081) (NOTE) Trichomonas v aginalis present. EXCHANGE CLERK: (test code = 8101) ITERA Mcgee(ASC P) PATHOLOGIST INTERPRETATION BY: (test code = 8122) Joana Luna DO LOCATION: (test code = 31048) (NOTE) Specimens proces sed and interpreted at [facility] , [address] [place] [address], , CLIA: [id number] CPT: (test code = 8140) (NOTE) 04552, 07979 UNL ESS OTHERWISE INDICATED, COMPUTER AIDED AND EXCHANGE CLERK SCREENING PERFORMED. The Pap test is a screening test with an inherent, but low probability of error. Your patient should be reminded to consult you immediately if she experiences any suspicious signs or symptoms, regardless of her Pap test result. An alternate report format containing images or consolidated prior Pap history is available as applicable. PAP TEST, THINPREP, [id number] 00:00:00* Test Item Value Reference Range Interpretation Comme nts SOURCE: (test code = 8001) Cervical SLIDES: (test code = 8011) 1 LMP: (test code = 8021) 05/17/2023 SPECIMEN ADEQUACY: (test code = 92334) (NOTE) INTERPRETATION: (test code = 02418) ASCUS/EPITH. ABNORMALITY; SEE BELOW OTHER COMMENTS: (test code = 8081) (NOTE) EXCHANGE CLERK: (test code = 8101) TIERA Mcgee(ASCP) PATHOLOGIST INTERPRETATION BY: (test code = 8122) Joana Luna DO LOCATION: (test code = 12055) (NOTE) CPT: (test code = 8140) (NOTE) Darryl WaggonerANGELESP TEST, THINPREP, [id number] 00:00:00* Test Item Value Reference Range Interpretation Comme nts SOURCE: (test code = 8001) Cervical SLIDES: (test code = 8011) 1 LMP: (test code = 8021) 05/17/2023 SPECIMEN ADEQUACY: (test code = 21771) (NOTE) INTERPRETATION: (test code = 64961) ASCUS/EPITH. ABNORMALITY; SEE BELOW OTHER COMMENTS: (test code = 8081) (NOTE) EXCHANGE CLERK: (test code = 8101) TIERA Mcgee(ASCP) PATHOLOGIST INTERPRETATION BY: (test code = 8122) Joana Luna DO LOCATION: (test code = 31201) (NOTE) CPT: (test code = 8140) (NOTE) Darryl F AbbeP TEST, THINPREP, [id number] 00:00:00* Test Item Value Reference Range Interpretation Comme nts SOURCE: (test code = 8001) Cervical SLIDES: (test code = 8011) 1 LMP: (test code = 8021) 05/17/2023 SPECIMEN ADEQUACY: (test code = 26108) (NOTE) INTERPRETATION: (test code = 49246) ASCUS/EPITH. ABNORMALITY; SEE BELOW OTHER COMMENTS: (test code = 8081) (NOTE) EXCHANGE CLERK: (test code = 8101) TIERA Mcgee(ASCP) PATHOLOGIST INTERPRETATION BY: (test code = 8122) Joana Luna DO LOCATION: (test code = 33031) (NOTE) CPT: (test code = 8140) (NOTE) Darryl Ackerman AbbeP TEST, THINPREP, [id number] 00:00:00* Test Item Value Reference Range Interpretation Comme nts SOURCE: (test code = 8001) Cervical SLIDES: (test code = 8011) 1 LMP: (test code = 8021) 05/17/2023 SPECIMEN ADEQUACY: (test code = 09019) (NOTE) INTERPRETATION: (test code = 74128) ASCUS/EPITH. ABNORMALITY; SEE BELOW OTHER COMMENTS: (test code = 8081) (NOTE) EXCHANGE CLERK: (test code = 8101) TIERA Mcgee(ASCP) PATHOLOGIST INTERPRETATION BY: (test code = 8122) Joana Luna DO LOCATION: (test code = 81184) (NOTE) CPT: (test code = 8140) (NOTE) Darryl Tyron EdilsonPAP TEST, THINPREP, [id number] 00:00:00* Test Item Value Reference Range Interpretation Comme nts SOURCE: (test code = 8001) Cervical SLIDES: (test code = 8011) 1 LMP: (test code = 8021) 05/17/2023 SPECIMEN ADEQUACY: (test code = 01174) (NOTE) INTERPRETATION: (test code = 90533) ASCUS/EPITH. ABNORMALITY; SEE BELOW OTHER COMMENTS: (test code = 8081) (NOTE) EXCHANGE CLERK: (test code = 8101) TIERA Mcgee(ASCP) PATHOLOGIST INTERPRETATION BY: (test code = 8122) Joana Luna DO LOCATION: (test code = 89585) (NOTE) CPT: (test code = 8140) (NOTE) Darryl Perez TEST, THINPREP, [id number] 00:00:00* Test Item Value Reference Range Interpretation Comme nts SOURCE: (test code = 8001) Cervical SLIDES: (test code = 8011) 1 LMP: (test code = 8021) 05/17/2023 SPECIMEN ADEQUACY: (test code = 05895) (NOTE) INTERPRETATION: (test code = 13898) ASCUS/EPITH. ABNORMALITY; SEE BELOW OTHER COMMENTS: (test code = 8081) (NOTE) EXCHANGE CLERK: (test code = 8101) TIERA Mcgee(ASCP) PATHOLOGIST INTERPRETATION BY: (test code = 8122) Joana Luna DO LOCATION: (test code = 36052) (NOTE) CPT: (test code = 8140) (NOTE) Darryl Perez TEST, THINPREP, [id number] 00:00:00* Test Item Value Reference Range Interpretation Comme nts SOURCE: (test code = 8001) Cervical SLIDES: (test code = 8011) 1 LMP: (test code = 8021) 05/17/2023 SPECIMEN ADEQUACY: (test code = 14392) (NOTE) INTERPRETATION: (test code = 90352) ASCUS/EPITH. ABNORMALITY; SEE BELOW OTHER COMMENTS: (test code = 8081) (NOTE) EXCHANGE CLERK: (test code = 8101) TIERA Mcgee(ASCP) PATHOLOGIST INTERPRETATION BY: (test code = 8122) [facility] LOCATION: (test code = 26700) (NOTE) CPT: (test code = 8140) (NOTE) Darryl Perez TEST, THINPREP, [id number] 00:00:00* Test Item Value Reference Range Interpretation Comme nts SOURCE: (test code = 8001) Cervical SLIDES: (test code = 8011) 1 LMP: (test code = 8021) 05/17/2023 SPECIMEN ADEQUACY: (test code = 10712) (NOTE) INTERPRETATION: (test code = 90174) ASCUS/EPITH. ABNORMALITY; SEE BELOW OTHER COMMENTS: (test code = 8081) (NOTE) EXCHANGE CLERK: (test code = 8101) TIERA Mcgee(ASCP) PATHOLOGIST INTERPRETATION BY: (test code = 8122) [facility] LOCATION: (test code = 90252) (NOTE) CPT: (test code = 8140) (NOTE) Darryl Ackerman EdilsonCT/NG, NAAT, [id number] 20:10:21* Test Item Value Reference Range Interpretation Comme nts CHLAMYDIA, NAAT, URINE (test code = 61483) POSITIVE NEGATIVE A Testing is perfo rmed with Lucie HARRY 6800/8800 systems usingreal-time polymerase chain reaction (PCR) method. GONORRHEA, NAAT, URINE (test code = 89709) NEGATIVE NEGATIVE Testing is perfo rmed with Lucie HARRY 6800/8800 systems usingreal-time polymerase chain reaction (PCR) method. A negative result does not exclude low level infection, specimensampling error, or collection error. UNLESS OTHERWISE INDICATED, ALL TESTING PERFORMED AT [facility] [address] [place] [address] OPERATIONAL RISK MANAGER: ANIBAL PAREDES M.D. CLIA NUMBER [id number] [place]. [id number] HPV HIGH RISK WITH GENOTYPE, [id number] 17:33:46* Test Item Value Reference Range Interpretation Comme nts HPV HIGH RISK INTERP (test code = 39652) POSITIVE NEGATIVE A HPV 16 (test code = 42412) POSITIVE A HPV 18 (test code = 63000) NEGATIVE HPV, HR, OTHER GENOTYPES (test code = 37719) NEGATIVE Testing methodol ogy is real-time PCR [...] TESTING PERFORMED AT [facility] [address] [place] [address] OPERATIONAL RISK MANAGER: ANIBAL PAREDES M.D. CLIA NUMBER [id number] [place]. [id number] VAGINAL PATHOGENS DNA [id number] 16:55:18* Test Item Value Reference Range Interpretation Comme nts JAZ SPECIES (test code = 07187) NEGATIVE NEGATIVE G. VAGINALIS (test code = 26059) NEGATIVE NEGATIVE T. VAGINALIS (test code = 71360) NEGATIVE NEGATIVE Note: [facility] VPIII Microbial Identification Testis a DNA probe test intended for use in the detectionand identification of Jaz species, Gardnerellavaginalis and Trichomonas vaginalis nucleic acid. UNLESS OTHERWISE INDICATED, ALL TESTING PERFORMED AT CLINICAL PATHOLOGY [employer], [facility]. [address] [place] [address] OPERATIONAL RISK MANAGER: ANIBAL PAREDES M.D. CLIA NUMBER [id number] [place]. [id number] RPR REFLEX TO T. PALLIDUM - [id number] 08:07:41* Test Item Value Reference Range Interpretation Comme nts RPR (test code = 55724) NON-REACTIVE NON-REACTIVE RPR TITER (test code = 3500) NOT INDIC. TITER NOT INDIC. HIV 1/2 4TH GEN, RFLX [id number] 05:24:44* Test Item Value Reference Range Interpretation Comme nts HIV 1/2 4TH GEN, RFLX CONF ( test code = 3514) NON-REACTIVE NON-REACTIVE HPV HIGH RISK WITH GENOTYPE, [id number] 00:00:00* Test Item Value Reference Range Interpretation Comme nts HPV HIGH RISK INTERP (test c ode = 87759) POSITIVE HPV 16 (test code = 02877) POSITIVE HPV 18 (test code = 01150) NEGATIVE HPV, HR, OTHER GENOTYPES (te st code = 25466) NEGATIVE PDFE (test code = PDFReport) PDF Darryl Ackerman AustinRPR REFLEX TO T. PALLIDUM - [id number] 00:00:00* Test Item Value Reference Range Interpretation Comme nts RPR (test code = 82076) NON-REACTIVE RPR TITER (test code = 3500) NOT INDIC. TITER Darryl Ackerman AustinCT/NG, TMA, [id number] 00:00:00* Test Item Value Reference Range Interpretation Comme nts CHLAMYDIA, NAAT, URINE (test code = 56521) POSITIVE GONORRHEA, NAAT, URINE (test code = 49504) NEGATIVE Darryl Ackerman AustinHIV 1/2 4TH GEN, RFLX [id number] 00:00:00* Test Item Value Reference Range Interpretation Comme nts HIV 1/2 4TH GEN, RFLX CONF ( test code = 3514) NON-REACTIVE Darryl Ackerman AustinVAGINAL PATHOGENS DNA [id number] 00:00:00* Test Item Value Reference Range Interpretation Comme nts JAZ SPECIES (test code = 62787) NEGATIVE G. VAGINALIS (test code = 47049) NEGATIVE T. VAGINALIS (test code = 64825) NEGATIVE Darryl F AustinRPR REFLEX TO T. PALLIDUM - [id number] 00:00:00* Test Item Value Reference Range Interpretation Comme nts RPR (test code = 28210) NON-REACTIVE RPR TITER (test code = 3500) NOT INDIC. TITER Darryl F AustinHPV HIGH RISK WITH GENOTYPE, [id number] 00:00:00* Test Item Value Reference Range Interpretation Comme nts HPV HIGH RISK INTERP (test c ode = 73971) POSITIVE HPV 16 (test code = 02473) POSITIVE HPV 18 (test code = 48380) NEGATIVE HPV, HR, OTHER GENOTYPES (te st code = 23287) NEGATIVE PDFE (test code = PDFReport) PDF Darryl Ackerman AustinCT/NG, TMA, [id number] 00:00:00* Test Item Value Reference Range Interpretation Comme nts CHLAMYDIA, NAAT, URINE (test code = 50515) POSITIVE GONORRHEA, NAAT, URINE (test code = 62701) NEGATIVE Darryl Ackerman AustinHIV 1/2 4TH GEN, RFLX [id number] 00:00:00* Test Item Value Reference Range Interpretation Comme nts HIV 1/2 4TH GEN, RFLX CONF ( test code = 3514) NON-REACTIVE Darryl WaggonerVAGINAL PATHOGENS DNA [id number] 00:00:00* Test Item Value Reference Range Interpretation Comme nts JAZ SPECIES (test code = 00221) NEGATIVE G. VAGINALIS (test code = 77222) NEGATIVE T. VAGINALIS (test code = 73794) NEGATIVE Darryl WaggonerHPV HIGH RISK WITH GENOTYPE, [id number] 00:00:00* Test Item Value Reference Range Interpretation Comme nts HPV HIGH RISK INTERP (test c ode = 61608) POSITIVE HPV 16 (test code = 22180) POSITIVE HPV 18 (test code = 30965) NEGATIVE HPV, HR, OTHER GENOTYPES (te st code = 25598) NEGATIVE PDFE (test code = PDFReport) PDF Darryl Ackerman AustinRPR REFLEX TO T. PALLIDUM - [id number] 00:00:00* Test Item Value Reference Range Interpretation Comme nts RPR (test code = 09708) NON-REACTIVE RPR TITER (test code = 3500) NOT INDIC. TITER Darryl Ackerman AustinCT/NG, TMA, [id number] 00:00:00* Test Item Value Reference Range Interpretation Comme nts CHLAMYDIA, NAAT, URINE (test code = 57381) POSITIVE GONORRHEA, NAAT, URINE (test code = 45384) NEGATIVE Darryl Ackerman AustinHIV 1/2 4TH GEN, RFLX [id number] 00:00:00* Test Item Value Reference Range Interpretation Comme nts HIV 1/2 4TH GEN, RFLX CONF ( test code = 3514) NON-REACTIVE Darryl Ackerman AustinVAGINAL PATHOGENS DNA [id number] 00:00:00* Test Item Value Reference Range Interpretation Comme nts JAZ SPECIES (test code = ) NEGATIVE G. VAGINALIS (test code = 72181) NEGATIVE T. VAGINALIS (test code = 01782) NEGATIVE Darryl Ackerman AustinHPV HIGH RISK WITH GENOTYPE, [id number] 00:00:00* Test Item Value Reference Range Interpretation Comme nts HPV HIGH RISK INTERP (test c ode = 64707) POSITIVE HPV 16 (test code = 97658) POSITIVE HPV 18 (test code = 00165) NEGATIVE HPV, HR, OTHER GENOTYPES (te st code = 13241) NEGATIVE PDFE (test code = PDFReport) PDF Darryl Ackerman AustinRPR REFLEX TO T. PALLIDUM - [id number] 00:00:00* Test Item Value Reference Range Interpretation Comme nts RPR (test code = 84115) NON-REACTIVE RPR TITER (test code = 3500) NOT INDIC. TITER Darryl Ackerman AustinCT/NG, TMA, [id number] 00:00:00* Test Item Value Reference Range Interpretation Comme nts CHLAMYDIA, NAAT, URINE (test code = 51182) POSITIVE GONORRHEA, NAAT, URINE (test code = 17864) NEGATIVE Darryl WaggonerHIV 1/2 4TH GEN, RFLX [id number] 00:00:00* Test Item Value Reference Range Interpretation Comme nts HIV 1/2 4TH GEN, RFLX CONF ( test code = 3514) NON-REACTIVE Darryl Ackerman AustinVAGINAL PATHOGENS DNA [id number] 00:00:00* Test Item Value Reference Range Interpretation Comme nts JAZ SPECIES (test code = ) NEGATIVE G. VAGINALIS (test code = 04431) NEGATIVE T. VAGINALIS (test code = 79611) NEGATIVE Darryl Ackerman AustinRPR REFLEX TO T. PALLIDUM - [id number] 00:00:00* Test Item Value Reference Range Interpretation Comme nts RPR (test code = 89072) NON-REACTIVE RPR TITER (test code = 3500) NOT INDIC. TITER Darryl Ackerman AustinHPV HIGH RISK WITH GENOTYPE, [id number] 00:00:00* Test Item Value Reference Range Interpretation Comme nts HPV HIGH RISK INTERP (test c ode = 75487) POSITIVE HPV 16 (test code = 09858) POSITIVE HPV 18 (test code = 16732) NEGATIVE HPV, HR, OTHER GENOTYPES (te st code = 05746) NEGATIVE PDFE (test code = PDFReport) PDF Darryl Ackerman AustinCT/NG, TMA, [id number] 00:00:00* Test Item Value Reference Range Interpretation Comme nts CHLAMYDIA, NAAT, URINE (test code = 23322) POSITIVE GONORRHEA, NAAT, URINE (test code = 67838) NEGATIVE Darryl Ackerman AustinHIV 1/2 4TH GEN, RFLX [id number] 00:00:00* Test Item Value Reference Range Interpretation Comme nts HIV 1/2 4TH GEN, RFLX CONF ( test code = 3514) NON-REACTIVE Darryl Ackerman AustinVAGINAL PATHOGENS DNA [id number] 00:00:00* Test Item Value Reference Range Interpretation Comme nts JAZ SPECIES (test code = 39502) NEGATIVE G. VAGINALIS (test code = 38546) NEGATIVE T. VAGINALIS (test code = 18063) NEGATIVE Darryl Ackerman AustinRPR REFLEX TO T. PALLIDUM - [id number] 00:00:00* Test Item Value Reference Range Interpretation Comme nts RPR (test code = 63041) NON-REACTIVE RPR TITER (test code = 3500) NOT INDIC. TITER Darryl Ackerman AustinHPV HIGH RISK WITH GENOTYPE, [id number] 00:00:00* Test Item Value Reference Range Interpretation Comme nts HPV HIGH RISK INTERP (test c ode = 70456) POSITIVE HPV 16 (test code = 26541) POSITIVE HPV 18 (test code = 49609) NEGATIVE HPV, HR, OTHER GENOTYPES (te st code = 58014) NEGATIVE PDFE (test code = PDFReport) PDF Darryl Ackerman AustinCT/NG, TMA, [id number] 00:00:00* Test Item Value Reference Range Interpretation Comme nts CHLAMYDIA, NAAT, URINE (test code = 27806) POSITIVE GONORRHEA, NAAT, URINE (test code = 88989) NEGATIVE Darryl Ackerman AustinVAGINAL PATHOGENS DNA [id number] 00:00:00* Test Item Value Reference Range Interpretation Comme nts JAZ SPECIES (test code = 55359) NEGATIVE G. VAGINALIS (test code = 85474) NEGATIVE T. VAGINALIS (test code = 54901) NEGATIVE Darryl Ackerman AustinHIV 1/2 4TH GEN, RFLX [id number] 00:00:00* Test Item Value Reference Range Interpretation Comme nts HIV 1/2 4TH GEN, RFLX CONF ( test code = 3514) NON-REACTIVE Darryl Ackerman AustinRPR REFLEX TO T. PALLIDUM - [id number] 00:00:00* Test Item Value Reference Range Interpretation Comme nts RPR (test code = 64126) NON-REACTIVE RPR TITER (test code = 3500) NOT INDIC. TITER Darryl WaggonerHPV HIGH RISK WITH GENOTYPE, [id number] 00:00:00* Test Item Value Reference Range Interpretation Comme nts HPV HIGH RISK INTERP (test c ode = 49754) POSITIVE HPV 16 (test code = 29451) POSITIVE HPV 18 (test code = 14898) NEGATIVE HPV, HR, OTHER GENOTYPES (te st code = 63227) NEGATIVE PDFE (test code = PDFReport) PDF Darryl Ackerman AustinCT/NG, TMA, [id number] 00:00:00* Test Item Value Reference Range Interpretation Comme nts CHLAMYDIA, NAAT, URINE (test code = 07875) POSITIVE GONORRHEA, NAAT, URINE (test code = 12367) NEGATIVE Darryl WaggonerVAGINAL PATHOGENS DNA [id number] 00:00:00* Test Item Value Reference Range Interpretation Comme nts JAZ SPECIES (test code = 02205) NEGATIVE G. VAGINALIS (test code = 92596) NEGATIVE T. VAGINALIS (test code = 75037) NEGATIVE Darryl Ackerman AustinHIV 1/2 4TH GEN, RFLX [id number] 00:00:00* Test Item Value Reference Range Interpretation Comme nts HIV 1/2 4TH GEN, RFLX CONF ( test code = 3514) NON-REACTIVE Darryl Ackerman AustinRPR REFLEX TO T. PALLIDUM - [id number] 00:00:00* Test Item Value Reference Range Interpretation Comme nts RPR (test code = 92565) NON-REACTIVE RPR TITER (test code = 3500) NOT INDIC. TITER Darryl WaggonerHPV HIGH RISK WITH GENOTYPE, [id number] 00:00:00* Test Item Value Reference Range Interpretation Comme nts HPV HIGH RISK INTERP (test c ode = 80883) POSITIVE HPV 16 (test code = 56969) POSITIVE HPV 18 (test code = 45302) NEGATIVE HPV, HR, OTHER GENOTYPES (te st code = 77075) NEGATIVE PDFE (test code = PDFReport) PDF Darryl WaggonerCT/NG, TMA, [id number] 00:00:00* Test Item Value Reference Range Interpretation Comme nts CHLAMYDIA, NAAT, URINE (test code = 63704) POSITIVE GONORRHEA, NAAT, URINE (test code = 30071) NEGATIVE Darryl WaggonerHIV 1/2 4TH GEN, RFLX [id number] 00:00:00* Test Item Value Reference Range Interpretation Comme nts HIV 1/2 4TH GEN, RFLX CONF ( test code = 3514) NON-REACTIVE Darryl WaggonerVAGINAL PATHOGENS DNA [id number] 00:00:00* Test Item Value Reference Range Interpretation Comme nts JAZ SPECIES (test code = 37354) NEGATIVE G. VAGINALIS (test code = 88880) NEGATIVE T. VAGINALIS (test code = 18970) NEGATIVE Darryl WaggonerCOMP. METABOLIC PANEL (75166)2023-05-28 07:12:09* Test Item Value Reference Range Interpretation Comme nts NA (test code = 8355297288) 138 mmol/L 135-145 K (test code = 8862048462) 3.6 mmol/L 3.5-5.0 CL (test code = 1000653368) 105 mmol/L 98-108 CO2 TOTAL (test code = 2185026123) 24 mmol/L 23-31 AGAP (test code = 4832408975) 9 2-16 BUN (test code = 5556819372) 8 mg/dL 7-23 GLUCOSE (test code = 6037410402) 94 mg/dL 70-110 CREATININE (test code = 9035450942) 0.90 mg/dL 0.50-1.04 TOTAL BILI (test code = 8885022614) 0.5 mg/dL 0.1-1.1 CALCIUM (test code = 4329979125) 9.2 mg/dL 8.6-10.6 T PROTEIN (test code = 7417224447) 7.8 g/dL 6.3-8.2 ALBUMIN (test code = 5061048035) 4.3 g/dL 3.5-5.0 ALK PHOS (test code = 1791617461) 91 U/L 34-122 ALTv (test code = 1742-6) 32 U/L 5-35 AST(SGOT) (test code = 0134866365) 48 U/L 13-40 H eGFR (test code = 6418652264) 73.0 mL/min/1.73m2 ELIA (test code = ELIA) [...] imaging tests). Lab Interpretation (test code = 39005-6) Abnormal [facility] WITH [id number] 06:45:45* Test Item Value Reference Range Interpretation [...] g/dL 31.6-35.1 L RDW-SD (test code = 23514-1) 49.8 fL 39.0-49.9 RDW-CV (test code = 788-0) 18.3 % 12.0-15.5 H PLT (test code = 777-3) 391 See_Comment H [Automated messa ge] The system which generated this result transmitted reference range: 166 - 358 10*3/?L. The reference range was not used to interpret this result as normal/abnormal. MPV (test code = 60420-1) 10.3 fL 9.5-12.9 NRBC/100 WBC (test code = 1892637088) 0.0 See_Comment [Automated [employer] ss[employer]] The system which generated this result transmitted reference range: 0.0 - 10.0 /100 WBCs. The reference range was not used to interpret this result as normal/abnormal. NRBC x10^3 (test code = 5603030987) See_Comment [Automated messa ge] The system which generated this result transmitted reference range: 10*3/?L. The reference range was not used to interpret this result as normal/abnormal. GRAN MAT (NEUT) % (test code = 770-8) 47.8 % IMM GRAN % (test code = 0262305018) 0.30 % LYMPH % (test code = 736-9) 39.1 % MONO % (test code = 5905-5) 8.5 % EOS % (test code = 713-8) 3.5 % BASO % (test code = 706-2) 0.8 % GRAN MAT x10^3(ANC) (test code = 0498486517) 3.73 10*3/uL 1.88-7.09 IMM GRAN x10^3 (test code = 8845974548) 0.00-0.06 LYMPH x10^3 (test code = 731-0) 3.04 10*3/uL 1.32-3.29 MONO x10^3 (test code = 742-7) 0.66 10*3/uL 0.33-0.92 EOS x10^3 (test code = 711-2) 0.27 10*3/uL 0.03-0.39 BASO x10^3 (test code = 704-7) 0.06 10*3/uL 0.01-0.07 Lab Interpretation (test code = 61278-5) Abnormal [facility] [id number] 06:40:00* Test Item Value Reference Range Interpretation Comme nts POCT PREG (test code = 1605) Negative On board controls acceptable with C Line (test code = 3574) Yes POCT PREG LOT # (test code = 3575) [id number] POCT PREG TEST DATE ( test code = 3576) 10/17/2024 Lab Interpretation (test cod e = 00450-4) Normal [facility] [id number] 06:17:00* Test Item Value Reference Range Interpretation Comme nts POCT PREG (test code = 1605) Negative On board controls acceptable with C Line (test code = 3574) Present POCT PREG LOT # (test code = 3575) [id number] POCT PREG TEST DATE ( test code = 3576) Lab Interpretation (test cod e = 62744-3) Normal [facility] [id number] 18:58:00* Test Item Value Reference Range Interpretation Comme nts POCT PREG (test code = 1605) negative Lab Interpretation (test cod e = 42080-2) Normal [facility] WITH [id number] 13:14:57* Test Item Value Reference Range Interpretation [...] g/dL 31.6-35.1 L RDW-SD (test code = 65967-3) 46.2 fL 39-49.9 RDW-CV (test code = 788-0) 17.0 % 12-15.5 H PLT (test code = 777-3) See_Comment H [Automated messa ge] The system which generated this result transmitted reference range: 166 - 358 10*3/?L. The reference range was not used to interpret this result as normal/abnormal. MPV (test code = 96931-4) 9.1 fL 9.5-12.9 L NRBC/100 WBC (test code = 3443173359) See_Comment [Automated me ssage] The system which generated this result transmitted reference range: 0.0 - 10.0 /100 WBCs. The reference range was not used to interpret this result as normal/abnormal. NRBC x10^3 (test code = 0650520396) See_Comment [Automated messa ge] The system which generated this result transmitted reference range: 10*3/?L. The reference range was not used to interpret this result as normal/abnormal. GRAN MAT (NEUT) % (test code = 770-8) 51.3 % IMM GRAN % (test code = 6705182922) 0.40 % LYMPH % (test code = 736-9) 37.0 % MONO % (test code = 5905-5) 8.5 % EOS % (test code = 713-8) 2.2 % BASO % (test code = 706-2) 0.6 % GRAN MAT x10^3(ANC) (test code = 8971975920) 4.26 10*3/uL 1.88-7.09 IMM GRAN x10^3 (test code = 8645180110) 0.03 10*3/uL 0-0.06 LYMPH x10^3 (test code = 731-0) 3.06 10*3/uL 1.32-3.29 MONO x10^3 (test code = 742-7) 0.70 10*3/uL 0.33-0.92 EOS x10^3 (test code = 711-2) 0.18 10*3/uL 0.03-0.39 BASO x10^3 (test code = 704-7) 0.05 10*3/uL 0.01-0.07 Lab Interpretation (test code = 11031-8) Abnormal [facility] [id number] 12:55:00* Test Item Value Reference Range Interpretation Comme nts POCT PREG (test code = 1605) negative On board controls acceptable with C Line (test code = 3574) present Lab Interpretation (test cod e = 21121-4) Normal [facility] [id number] 20:49:00* Test Item Value Reference Range Interpretation Comme nts POCT PREG (test code = 1605) negative On board controls acceptable with C Line (test code = 3574) yes POCT PREG LOT # (test code = 3575) [id number] POCT PREG TEST DATE ( test code = 3576) 08/14/2023 Lab Interpretation (test cod e = 04621-2) [facility] [id number] 08:01:55* Test Item Value Reference Range Interpretation Comme nts NA (test code = 5653037743) 138 mmol/L 135-145 K (test code = 0643671112) 4.2 mmol/L 3.5-5 CL (test code = 0192914520) 107 mmol/L 98-108 CO2 TOTAL (test code = 1586803381) 20 mmol/L 23-31 L AGAP (test code = 7659541472) 2-16 BUN (test code = 6436654436) 10 mg/dL 7-23 GLUCOSE (test code = 1118451912) 105 mg/dL 70-110 CREATININE (test code = 9615459689) 0.86 mg/dL 0.5-1.04 TOTAL BILI (test code = 9097416374) 0.1-1.1 L CALCIUM (test code = 1564025329) 9.1 mg/dL 8.6-10.6 T PROTEIN (test code = 8917194574) 7.4 g/dL 6.3-8.2 ALBUMIN (test code = 5449270960) 4.8 g/dL 3.5-5 ALK PHOS (test code = 6242529997) 81 U/L 34-122 ALTv (test code = 1742-6) 17 U/L 5-35 AST(SGOT) (test code = 2667789000) 19 U/L 13-40 eGFR (test code = 3772722045) mL/min/1.73m2 ELIA (test code = ELIA) Association [...] imaging tests). Lab Interpretation (test code = 79178-1) [facility], [id number] 07:59:48* Test Item Value Reference Range Interpretation Comme nts LIPASE (test code = 9914778048) 94 U/L 0-220 Lab Interpretation (test cod e = 04354-4) [facility]CBC with Ulihedhdyqxg9602-50-16 07:47:29* Test Item Value Reference Range Interpretation Comme nts WBC (test code = 6690-2) See_Comment [Automated [employer]] The system which generated this result transmitted reference range: 4.30 - 11.10 10*3/?L. The reference range was not used to interpret this result as normal/abnormal. RBC (test code = 789-8) See_Comment [Automated [employer]] The system which generated this result transmitted [...] g/dL 31.6-35.1 L RDW-SD (test code = 50061-2) 40.2 fL 39-49.9 RDW-CV (test code = 788-0) 15.0 % 12-15.5 PLT (test code = 777-3) See_Comment [Automated messa ge] The system which generated this result transmitted reference range: 166 - 358 10*3/?L. The reference range was not used to interpret this result as normal/abnormal. MPV (test code = 79774-9) 10.1 fL 9.5-12.9 NRBC/100 WBC (test code = 2413772990) See_Comment [Automated me ssage] The system which generated this result transmitted reference range: 0.0 - 10.0 /100 WBCs. The reference range was not used to interpret this result as normal/abnormal. NRBC x10^3 (test code = 8271626769) See_Comment [Automated messa ge] The system which generated this result transmitted reference range: 10*3/?L. The reference range was not used to interpret this result as normal/abnormal. GRAN MAT (NEUT) % (test code = 770-8) 46.6 % IMM GRAN % (test code = 3124147175) 0.40 % LYMPH % (test code = 736-9) 40.7 % MONO % (test code = 5905-5) 8.6 % EOS % (test code = 713-8) 3.3 % BASO % (test code = 706-2) 0.4 % GRAN MAT x10^3(ANC) (test code = 6250557858) 3.40 10*3/uL 1.88-7.09 IMM GRAN x10^3 (test code = 5776232820) 0.03 10*3/uL 0-0.06 LYMPH x10^3 (test code = 731-0) 2.97 10*3/uL 1.32-3.29 MONO x10^3 (test code = 742-7) 0.63 10*3/uL 0.33-0.92 EOS x10^3 (test code = 711-2) 0.24 10*3/uL 0.03-0.39 BASO x10^3 (test code = 704-7) 0.03 10*3/uL 0.01-0.07 Lab Interpretation (test code = 77735-0) [facility]landsPON[facility] [id number] 07:37:00* Test Item Value Reference Range Interpretation Comme nts POCT PREG (test code = 1605) Negative On board controls acceptable with C Line (test code = 3574) Present POCT PREG LOT # (test code = 3575) [id number] POCT PREG TEST DATE ( test code = 3576) 08/14/2023 Lab Interpretation (test cod e = 90693-7) [facility] [id number] 22:19:00* Test Item Value Reference Range Interpretation Comme nts POCT PREG (test code = 1605) NEGATIVE On board controls acceptable with C Line (test code = 3574) present POCT PREG LOT # (test code = 3575) [id number] POCT PREG TEST DATE ( test code = 3576) 07/14/2023 Lab Interpretation (test cod e = 58801-8) [facility] [id number] 19:54:00* Test Item Value Reference Range Interpretation Comme nts POCT PREG (test code = 1605) negative On board controls acceptable with C Line (test code = 3574) present POCT PREG LOT # (test code = 3575) [id number] POCT PREG TEST DATE ( test code = 3576) 12/12/2022 Lab Interpretation (test cod e = 75778-6) [facility] 06:28:44* Test Item Value Reference Range Interpretation Comme nts FERRITIN (test code = 2075) 3 NG/ML 13-200 L DFQCBELZHEJ1513-30-82 04:37:13* Test Item Value Reference Range Interpretation Comme nts TRANSFERRIN (test code = 4936) 385 MG/DL 200-360 H UNLESS OTHERWISE INDICATED, ALL TESTING PERFORMED [facility] [address] [place] [id number] OPERATIONAL RISK MANAGER: NICOLE GUSMAN M.D. CLIA NUMBER [id number] [facility] [place]. [id number] IRON BINDING CAPACITY AND IRON AND % [id number] 04:19:01* Test Item Value Reference Range Interpretation Comme nts IRON, SERUM (test code = 2222) 11 UG/DL 37-145 L UNSATURATED IBC (test code = 04965) 442 UG/DL 112-347 H CALC TOTAL IBC (test code = 2077) 453 UG/DL 250-450 H CALC % IRON SAT (test code = 2078) 2 % 20-50 L IRON BINDING CAPACITY AND IRON AND % [id number] 00:00:00* Test Item Value Reference Range Interpretation Comme nts IRON, SERUM (test code = 2) 11 UG/DL UNSATURATED IBC (test code = 06250) 442 UG/DL CALC TOTAL IBC (test code = 7) 453 UG/DL CALC % IRON SAT (test code = 9) 2 % Darryl F PhrjmnLDHWUVNM5736-74-01 00:00:00* Test Item Value Reference Range Interpretation Comme nts FERRITIN (test code = 2074) 3 NG/ML Darryl F HepsfnBVWPBRPMEJX7377-62-52 00:00:00* Test Item Value Reference Range Interpretation Comme nts TRANSFERRIN (test code = 4936) 385 MG/DL Darryl F AustinIRON BINDING CAPACITY AND IRON AND % [id number] 00:00:00* Test Item Value Reference Range Interpretation Comme nts IRON, SERUM (test code = 2221) 11 UG/DL UNSATURATED IBC (test code = 80969) 442 UG/DL CALC TOTAL IBC (test code = 2076) 453 UG/DL CALC % IRON SAT (test code = 2078) 2 % Darryl F UrqqyvNTDPSOLB1001-15-76 00:00:00* Test Item Value Reference Range Interpretation Comme nts FERRITIN (test code = 2074) 3 NG/ML Darryl F OrmpofXNCRVNXIOBX6511-17-38 00:00:00* Test Item Value Reference Range Interpretation Comme nts TRANSFERRIN (test code = 4936) 385 MG/DL Darryl F AustinIRON BINDING CAPACITY AND IRON AND % [id number] 00:00:00* Test Item Value Reference Range Interpretation Comme nts IRON, SERUM (test code = 2221) 11 UG/DL UNSATURATED IBC (test code = 34027) 442 UG/DL CALC TOTAL IBC (test code = 7) 453 UG/DL CALC % IRON SAT (test code = 9) 2 % Darryl F RwwqlyPGERACSS6433-61-48 00:00:00* Test Item Value Reference Range Interpretation Comme nts FERRITIN (test code = 2074) 3 NG/ML Darryl F HepfroVQQPQNXGMBV7397-77-10 00:00:00* Test Item Value Reference Range Interpretation Comme nts TRANSFERRIN (test code = 4936) 385 MG/DL Darryl F AustinIRON BINDING CAPACITY AND IRON AND % [id number] 00:00:00* Test Item Value Reference Range Interpretation Comme nts IRON, SERUM (test code = 2222) 11 UG/DL UNSATURATED IBC (test code = 08716) 442 UG/DL CALC TOTAL IBC (test code = 7) 453 UG/DL CALC % IRON SAT (test code = 2079) 2 % Darryl F KoudqiKPBLJCGV6471-55-53 00:00:00* Test Item Value Reference Range Interpretation Comme nts FERRITIN (test code = 2074) 3 NG/ML Darryl F KrtoshVGATPUKECEU6694-93-63 00:00:00* Test Item Value Reference Range Interpretation Comme nts TRANSFERRIN (test code = 4936) 385 MG/DL Darryl F AustinIRON BINDING CAPACITY AND IRON AND % [id number] 00:00:00* Test Item Value Reference Range Interpretation Comme nts IRON, SERUM (test code = 2222) 11 UG/DL UNSATURATED IBC (test code = 32139) 442 UG/DL CALC TOTAL IBC (test code = 7) 453 UG/DL CALC % IRON SAT (test code = 9) 2 % Darryl F SkppmeKRBRMUHT2046-18-12 00:00:00* Test Item Value Reference Range Interpretation Comme nts FERRITIN (test code = 5) 3 NG/ML Darryl F GwigveHLBCCJJLFHX6210-06-28 00:00:00* Test Item Value Reference Range Interpretation Comme nts TRANSFERRIN (test code = 4936) 385 MG/DL Darryl F AustinIRON BINDING CAPACITY AND IRON AND % [id number] 00:00:00* Test Item Value Reference Range Interpretation Comme nts IRON, SERUM (test code = 2222) 11 UG/DL UNSATURATED IBC (test code = 19209) 442 UG/DL CALC TOTAL IBC (test code = 7) 453 UG/DL CALC % IRON SAT (test code = 2079) 2 % Darryl F UwmkteGTCTUGOV6113-72-67 00:00:00* Test Item Value Reference Range Interpretation Comme nts FERRITIN (test code = 5) 3 NG/ML Darryl F NjpwabFWFAPLWNOYM1955-31-93 00:00:00* Test Item Value Reference Range Interpretation Comme nts TRANSFERRIN (test code = 4936) 385 MG/DL Darryl F AustinIRON BINDING CAPACITY AND IRON AND % [id number] 00:00:00* Test Item Value Reference Range Interpretation Comme nts IRON, SERUM (test code = 2222) 11 UG/DL UNSATURATED IBC (test code = 75850) 442 UG/DL CALC TOTAL IBC (test code = 7) 453 UG/DL CALC % IRON SAT (test code = 2079) 2 % Darryl F JkhnhsJXNNYKPI0807-48-70 00:00:00* Test Item Value Reference Range Interpretation Comme nts FERRITIN (test code = 2074) 3 NG/ML Darryl F OtrttyCKXCLARCIZD6518-69-33 00:00:00* Test Item Value Reference Range Interpretation Comme nts TRANSFERRIN (test code = 4936) 385 MG/DL Darryl F AustinIRON BINDING CAPACITY AND IRON AND % [id number] 00:00:00* Test Item Value Reference Range Interpretation Comme nts IRON, SERUM (test code = 2222) 11 UG/DL UNSATURATED IBC (test code = 33617) 442 UG/DL CALC TOTAL IBC (test code = 7) 453 UG/DL CALC % IRON SAT (test code = 9) 2 % Darryl F [id number] 00:00:00* Test Item Value Reference Range Interpretation Comme nts FERRITIN (test code = 2074) 3 NG/ML Darryl F [id number] 00:00:00* Test Item Value Reference Range Interpretation Comme nts TRANSFERRIN (test code = 4936) 385 MG/DL Darryl F AustinIRON BINDING CAPACITY AND IRON AND % [id number] 00:00:00* Test Item Value Reference Range Interpretation Comme nts IRON, SERUM (test code = 2222) 11 UG/DL UNSATURATED IBC (test code = 72358) 442 UG/DL CALC TOTAL IBC (test code = 2077) 453 UG/DL CALC % IRON SAT (test code = 2079) 2 % [id number] 00:00:00* Test Item Value Reference Range Interpretation Comme nts FERRITIN (test code = 5) 3 NG/ML [id number] 00:00:00* Test Item Value Reference Range Interpretation Comme nts TRANSFERRIN (test code = 4936) 385 MG/DL IRON BINDING CAPACITY AND IRON AND % [id number] 00:00:00* Test Item Value Reference Range Interpretation Comme nts IRON, SERUM (test code = 2222) 11 UG/DL UNSATURATED IBC (test code = 21349) 442 UG/DL CALC TOTAL IBC (test code = 2077) 453 UG/DL CALC % IRON SAT (test code = 2079) 2 % [id number] 00:00:00* Test Item Value Reference Range Interpretation Comme nts FERRITIN (test code = 2075) 3 NG/ML [id number] 00:00:00* Test Item Value Reference Range Interpretation Comme nts TRANSFERRIN (test code = 4936) 385 MG/DL TSH, THIRD [id number] 06:15:03* Test Item Value Reference Range Interpretation Comme nts TSH, THIRD GENERATION (test code = 2821) 0.675 UIU/ML 0.400-4.100 UNLESS OTHERWISE INDICATED, ALL TESTING [facility] [address] [place] [address] OPERATIONAL RISK MANAGER: NICOLE GUSMAN M.D. CLIA NUMBER [id number] [facility] [place]. [id number] CBC W/AUTO DIFF WITH [id number] 02:57:36* Test Item Value Reference Range Interpretation [...] 0.00-0.10 ABS NUCLEATED RBCS (test code = 89822) 0.00 K/UL 0.00-0.11 [id number] 00:00:00* Test Item Value Reference Range Interpretation Comme nts TSH, THIRD GENERATION (test code = 2821) 0.675 UIU/ML [facility] W/AUTO [id number] 00:00:00* Test Item Value Reference Range Interpretation [...] ABS NUCLEATED RBCS (test cod e = 32473) 0.00 K/UL Darryl [id number] 00:00:00* Test Item Value Reference Range Interpretation Comme nts TSH, THIRD GENERATION (test code = 2821) 0.675 UIU/ML Darryl WaggonerCBC W/AUTO [id number] 00:00:00* Test Item Value Reference Range Interpretation [...] ABS NUCLEATED RBCS (test cod e = 15553) 0.00 K/UL Darryl [id number] 00:00:00* Test Item Value Reference Range Interpretation Comme nts TSH, THIRD GENERATION (test code = 2821) 0.675 UIU/ML Darryl WaggonerCBC W/AUTO [id number] 00:00:00* Test Item Value Reference Range Interpretation [...] ABS NUCLEATED RBCS (test cod e = 99993) 0.00 K/UL Darryl [id number] 00:00:00* Test Item Value Reference Range Interpretation Comme nts TSH, THIRD GENERATION (test code = 2821) 0.675 UIU/ML Darryl WaggonerCBC W/AUTO [id number] 00:00:00* Test Item Value Reference Range Interpretation [...] ABS NUCLEATED RBCS (test cod e = 15742) 0.00 K/UL Darryl [id number] 00:00:00* Test Item Value Reference Range Interpretation Comme nts TSH, THIRD GENERATION (test code = 2821) 0.675 UIU/ML Darryl WaggonerCBC W/AUTO [id number] 00:00:00* Test Item Value Reference Range Interpretation [...] ABS NUCLEATED RBCS (test cod e = 74613) 0.00 K/UL Darryl Ackerman [id number] 00:00:00* Test Item Value Reference Range Interpretation Comme nts TSH, THIRD GENERATION (test code = 2821) 0.675 UIU/ML [facility]ryl [facility]ck[facility] W/AUTO [id number] 00:00:00* Test Item Value Reference Range Interpretation [...] ABS NUCLEATED RBCS (test cod e = 27606) 0.00 K/UL Darryl [id number] 00:00:00* Test Item Value Reference Range Interpretation Comme nts TSH, THIRD GENERATION (test code = 2821) 0.675 UIU/ML Darryl WaggonerCBC W/AUTO [id number] 00:00:00* Test Item Value Reference Range Interpretation [...] ABS NUCLEATED RBCS (test cod e = 35992) 0.00 K/UL Darryl [id number] 00:00:00* Test Item Value Reference Range Interpretation Comme nts TSH, THIRD GENERATION (test code = 2821) 0.675 UIU/ML Darryl WaggonerCBC W/AUTO [id number] 00:00:00* Test Item Value Reference Range Interpretation [...] ABS NUCLEATED RBCS (test cod e = 44964) 0.00 K/UL Darryl WaggonerCBC W/AUTO [id number] 00:00:00* Test Item Value Reference Range Interpretation [...] ABS NUCLEATED RBCS (test cod e = 77247) 0.00 K/UL [id number] 00:00:00* Test Item Value Reference Range Interpretation Comme nts TSH, THIRD GENERATION (test code = 2821) 0.675 UIU/ML CBC W/AUTO [id number] 00:00:00* Test Item Value Reference Range Interpretation [...] ABS NUCLEATED RBCS (test cod e = 15849) 0.00 K/UL [id number] 00:00:00* Test Item Value Reference Range Interpretation Comme nts TSH, THIRD GENERATION (test code = 2821) 0.675 UIU/ML Notes Date/Time Note Provider Source 2025-04-14 11:33:02 Patient given discharge instructions on abdominal pain. Given prescription X 1 for bentyl. Pt advised to follow up with pcp. Pt left ER ambulatory, no signs of distress. [facility] [employer] 2025-04-14 08:08:05 Patient states: "I do have GI issues, gastritis and esophagitis. I had to stop taking the meds because it caused my anemia to be worse. I have zofran and take that. I'm just having sharp stabbing pain." Reports pain started Sunday. [facility] 2025-04-14 07:58:00 [facility] Emergency Department Note Patient Name: Mini hZu Date of : 1990 34 year old female Treatment Room: [facility] Primary Care Physician: Lorraine Blanco Patient Escorted by: Family [5] Mode [...] anemia. She has not yet consulted her hob grinder to discuss alternative treatments, with an appointment [...] 0.01 - 0.07 10*3/uL COMP. METABOLIC PANEL (83697) - Abnormal NA 138 135 - 145 [...] contrast Cbc with Diff Comp. Metabolic Panel (56564) Lipase POCT Test Urinalysis Orders Placed This [...] Specialty: FAMILY MEDICINE Relationship: PCP - General [address] [place] [address] Instructions: For follow up of the presenting symptoms. [facility] Specialty: Emergency Medicine [address] [place] [id number] Instructions: If symptoms worsen as documented in the discharge Electronically signed by: Hermilo Ricks DO 04/14/25 1109 [facility] 2025-03-09 02:45:01 Pt given printed and verbal [...] steady gait, in no apparent distress, T [facility] 2025-03-08 21:30:20 Pt arrived ambulatory without assist. Pt with her, okay to discuss care with him. Pt c/o migraine that started today and left ovary pain since Sunday. Duyen Pereira RN [facility] 2025-01-27 13:53:03 Pt given printed and [...] steady gait, in no apparent distress, T [facility] 2025-01-27 12:24:45 Patient arrived ambulatory c/o headache that started approximately at midnight associated with vomiting and sensitivity to lights. Patient attempted to take ibuprofen when she vomited the medication. Patient has frequent headaches and diagnosed with chronic migraines. AT Celina Proctor RN [facility] 2025-01-21 08:15:25 Pt has been scheduled Tanya Velasco [facility] 2025-01-19 13:34:00 Mini Zhu is a 34 year old female Patient returning missed call to schedule PGY appointment. She states she did not have any voicemails. Please advise [facility] 2025-01-17 04:21:41 Awake, alert oriented X4, [...] with steady gait. T Senia Narvaez RN [facility] 2025-01-17 02:22:34 Cc: abdominal pain, N/V, and migraine began at 11PM 01/16 T [facility] 2025-01-16 10:05:56 2nd attempt no answer T Tanya Velasco [facility] 2025-01-15 12:25:21 1st attempt to contact pt, no answer T [facility] 2025-01-13 10:37:29 Mini Zhu is a 34 year old female Pt calling wanting to r/s her appt that was scheduled for 01/16/25. Please assist [phone] (home) [phone] (work) [facility] 2025-01-05 09:43:48 Pt given printed and [...] in no apparent distress. Left with spouse. T Trista Coronel RN [facility] 2025-01-05 09:27:55 [facility] ED Transfer of Care Note. Off-going Physician: [...] components within normal limits COMP. METABOLIC PANEL (24101) - Abnormal; Notable for the following components: [...] Disposition Discharge Condition Stable Comment -- T [facility] 2025-01-05 08:39:35 Patient given ice water to po challenge [facility] Celina Proctor RN [facility] 2025-01-05 07:05:00 Nurse Report Report received from LINA Martines. Chief complaint, assessment findings, and orders reviewed. Plan of care discussed with both nurses. Trista Coronel RN [facility] 2025-01-05 05:35:15 Patient up using the bathroom, ambulated independently with a steady gait. Back to bed, on monitor, updated on plan of care. Call light within reach. Bobbi Siddiqi RN [facility] 2025-01-05 05:09:11 C/o cough, body aches, chills, vomiting, nausea, diarrhea x4 days Feels like she's been running a fever but has no thermometer Jess Gonzalez RN [facility] 2024-12-18 01:21:52 Awake, alert oriented X4, [...] noted upon discharge Pt ambulated to the [facility] with steady gait ANOLOGY PROFESSOR Kait Seay RN [facility]2025-03-05 23:49:02 Patient arrived ambulatory to ED c/o right sided migraine that worsened tonight. Oral sx on 12/05, had three teeth taken out. Abx have been finished already. Vomited tonight and made her migraine worse. Patient states Zofran is not working anymore. ANOLOGY PROFESSOR [facility] 00[facility]00:00 Darryl Arriaga [facility]2025-02-13 00:00:00 Darryl Arriaga [facility]2025-02-04 22:45:36 Pt given printed and verbal [...] without assist, in no apparent distress, Durand [facility]xlef9164-[facility]-32 20:59:33 CC: R sided jaw pain that radiates down her neck. Pain began at 9PM. Took Ibu 800mg at 2PM, applying warm/cold compress Patel [facility]zepdm1509-28-09 20:55:00 [facility] Emergency Department Note Patient Name: Mini Zhu Date of : 1990 33 year old female Treatment Room: [place] [address] Primary Care Physician: Rachelle Darryl [facility] Patient Escorted by: Family [5] Mode of Arrival: Personal means [1] EMS Treatment Prior to ED Arrival: [facility] treatment: Other (comment) [facility] treatment comments: See triage note Travel and [...] [facility] [place] [facility] management prompting ED visit. 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 CONTINUE taking these medications which have NOT CHANGED ALBUTEROL 90 MCG/ACTUATION INHALER Inhale 2 Puffs every 4 (four) hours as needed for Wheezing or Shortness of Breath. AZITHROMYCIN (ZITHROMAX Z-RAMESH) 250 MG TABLET Take 2 tablets by mouth SEE-INSTRUCTIONS. Take 500 mg day 1, then 250 mg days 2 to 5. OKXOCJKKIA-ASJEKFRLTTPHL-NPLW 50-325-40 MG TABLET Take 1 tablet by mouth every 6 (six) hours as needed (Headache). UMZOJBLCFS-GILRNXAWMJTGA-ICHN 50-325-40 MG TABLET Take 1 tablet by [...] Electronically signed by: Selene Parra MD 11/18/242237 [place] [address]-01-25 22:45:36 ERP MSE patient [place] [address]-01-25 22:35:26 CC: tail bone pain, began today 5PM. Patient states she was horse playing, and got kneed on the tailbone. [facility] Nicole Patel [facility]dikwq8411-42-31 00:00:00 [facility]ryl [facility]2024-11-11 00:00:00 [facility] 10:46:00 Written/verbal D/c instructions, out of er no distress, [place] 879584-10-11 10:30:00 Pt has had no emesis since arrival [place] 879584-10-11 07:48:10 Mini Zhu is a 33 year old female c/o n/v/d since Sunday, states this morning at 0700 threw up blood, no abdominal pain, states now has a headache, alert cheerful, states hx gastritis, esophagitis and iron def anemia, ran out of pantoprazole and takes iron occasionally. States her bipolar meds aren't staying down either, [facility] Sheila Starkey [place] 037524-09-25 00:00:00 Darryl Arriaga [facility]2024-09-20 05:48:27 Discharge information given verbally and in writing, including of s/s of when to return to ER Patient denies questions and verbalized understanding. IV discontinued without issue. Pt ambulated off unit with steady gate, vital signs stable, no acute distress. [facility] Jovana Hooper [place] 037524-09-20 02:26:00 Lower abd pain since midnight, and back pain, pt states she has shingles and has been using tropical cream for tx. [place] 879584-06-04 00:00:00 Darryl Arriaga [facility]2024-05-29 06:06:53 Pt given printed and verbal [...] in no apparent distress. Ashly Srivastava [facility]fnkoq7597-26-84 02:07:22 Pt given urine cup and placed in the lobby, pt advice to notify nurse with any other concerns or if symptoms worsen. [facility] 02:02:32 C/O states that she began vomited blood X5 since midnight. T Kait Seay [facility]fbrdq9708-81-65 00:00:00 Darryl [facility]2024-04-21 07:09:15 Pt given printed and verbal [...] gait, in no apparent distress, Cl Estrada RNUTMB - Llxjmh9089-04-77 03:59:45 Pt states that she vomiting 6 times a day, pt states that she had a vomiting episode that was different tonight, she states that it was dark and looks like a bunch of clots pt states that this happened approx 45 mins user acceptance tester Kait Seay RNR[facility] - Tlveml6458-02-35 03:51:00 [facility] Emergency Department Note Patient Name: Mini Zhu Date of : 1990 33 year old female Treatment Room: TX5/OH5 Primary Care Physician: Rachelle Ackerman [facility] Patient Escorted by: Family [5] Mode of Arrival: Personal means [1] EMS Treatment Prior to ED Arrival: [facility] treatment: None Travel and Exposure Screening: Symptoms [...] by: Patient, medical records and significant other clothing and textiles teacher used: No Abdominal Pain Pain location: Generalized [...] Lab Results: Lab Results COMP. METABOLIC PANEL (07579) - Abnormal Result Value Ref Range NA [...] then 250 mg days 2 to 5. EZZTNYBHEG-CZIGIPJRTSABP-TWOK 50-325-40 MG TABLET Take 1 tablet by [...] for follow-up Tommie Arita MD Specialty: IM-GASTROENTEROLOGY [facility] [address] [address] Electronically signed by: Selene Parra MD 02/03/24 0658 T [facility] - Ijoqdv1655-53-81 00:43:46 Pt given printed and verbal discharge [...] leaving in no apparent distress, Ashly Gibson [place] 037524-03-20 00:31:47 Pt notified covid test was inconclusive. She refuses additional covid swabbing. She reports continuing head congestion. Dr. Marie in to see pt at this time. [facility] 22[facility]22:36 Pt arrived ambulatory with c/o congestion. Pt states I have bad congestion, sneezing, coughing and headache. No fever. I vomited once prior to coming to the ED." Duyen Pereira [facility]ietx0659-64-60 05:22:47 Awake, alert oriented X4, respiratory even [...] noted upon discharge Pt ambulated to the [facility] with steady gait Kait Seay [place] 037524-03-13 03:48:35 Pt arrived with c/ migraine headache off-and-on for 7 days. Pt took Midol at 6:30pm. Pt report the Midol help for about 30 minutes then the headache came back. Pt states she has tried Ibu, tylenol, and naproxen but none of these medications have helped her migraine. 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 Orders Placed This Encounter Medications ouxfvouhks-nknpzrtexbnky-mfqd (ESGIC) 50-325-40 mg tablet 1 tablet First Provider Eval: ED Events Date/Time Event User Comments 12/26/23 8707 Medical Screening Begins SELENE PARRA MD -- [...] Follow-up: Contact information for follow-up Darryl Ackerman [facility] Relationship: PCP - General [address] [place] [phone] Demetrio Stout MD Specialty: PN-NEUROLOGY [facility] [address] [place] [phone] Electronically signed by: Selene Parra MD 12/26/23439 T [facility] - Oycqck8050-65-26 10:50:14 Patient discharged home. Follow up with pcp in 2-3 days. Return with worsening symptoms. Verbalized dc instructions. Signed paper work. Davis [place] 037524-02-06 06:42:12 Bilateral lower abdominal pain on and off for month. Pain started this morning at 1230 and hasn't stopped. Saw by OB, US ordered pt unable to pay for it. Was instructed to got to ER if got worse. Vomited 3 time this am ANOLOGY PROFESSOR Maliha Paniagua [place] 037524-01-29 01:09:27 Pt given printed and verbal discharge [...] steady gait, in no apparent distress. Peraza [place] 037524-01-29 00:35:00 PO challenge completed. Patient tolerating water and crackers. [place] 924614-01-29 00:06:08 Patient arrived ambulatory to ED c/o vomiting. Patient states vomiting up her dinner and then vomiting "bright red chunks." Diarrhea x a couple of days. No medications taken [facility]. Keen [place] 037524-01-29 00:03:00 [facility] Emergency Department Note Patient Name: Mini Zhu Date of : 1990 32 year old female Treatment Room: Room/bed info not found Primary Care Physician: Rachelle Waggoner [facility] Patient Escorted by: Family [5] Mode of Arrival: Personal means [1] EMS Treatment Prior to ED Arrival: [facility] treatment: None Travel and Exposure Screening: Symptoms [...] 200 mg capsule Comments: Reason for Stopping: wuntqwsnfd-fmmzilizvukxo-rrjm 50-325-40 mg tablet Comments: Reason for Stopping: megestroL 40 mg tablet Comments: Reason for Stopping: tamsulosin 0.4 mg 24 hr capsule Comments: Reason for Stopping: ketorolac 10 mg tablet Comments: Reason for Stopping: Follow-up: Electronically signed by: Chayo Srivastava DO 11/12/23 0104 ANOLOGY PROFESSOR [facility]bwqfs3458-88-82 20:56:44 Pt discharged home, given all education and information regarding s/s of worsening condition; prescription use; pain and fever management as well as the importance of follow up. Pt verbalized understanding. Alert and ambulatory to [facility] with family. [facility] Wilman Felix [facility]Kcwxsk2045-19-63 20:24:32 Pt arrived ambulatory with complaints of viral symptoms x2 days. Pt is positive and she took home test today and is positive too. Pt was concerned because her fever was 101 and her husbands only hit 100f. Pt has n/v but hasn't taken her Zofran. [facility] Cora Peraza [facility]Xemksm0279-30-73 06:48:38 Prescriptions provided Pt verbalized understanding of [...] with steady gait, in no apparent distress. [facility]pkoft6944-50-90 05:26:28 Pt arrives ambulatory to ED c/o left sided lower abdominal pain. She reports that she came in last week and was found to have multiple gynecological issues and was given multiple prescriptions which she says has not helped her pain issue. LMP: 06/12/2023 Ashly Srivastava [facility] HospitalDnpefq1863-50-82 05:14:00 [facility] Emergency Department Note Patient Name: Mini Zhu Date of : 1990 32 year old female Treatment Room: [facility] FT/XSEV71-03 Primary Care Physician: Rachelle Ackerman [facility] Patient Escorted by: Family [5] Mode of Arrival: Personal means [1] EMS Treatment Prior to ED Arrival: [facility] treatment: None Travel and Exposure Screening: Symptoms [...] by: Patient, medical records and significant other clothing and textiles teacher used: No Abdominal Pain Pain location: LLQ [...] (three) times daily as needed for Cough. GFOUOSHNTJ-PHZGQURQLZJHR-WWTK 50-325-40 MG TABLET Take 1 tablet by [...] Jaime Rebolledo MD Specialty: ORT-ORTHOPAEDIC SURGERY [address] [facility] [phone] Electronically signed by: Selene Parra MD 06/24/23632 T [facility]Fuozrd8104-18-86 01:30:00 Awake, alert oriented X4, respiratory even [...] ambulated to the lobby with steady gait [place] [address]-09-03 23:50:11 C/O head congestion, chest congestion, body aches, sore throat since last Sunday, pt denies any fever. [facility] Kait Seay RNJason [place] [address]-09-03 23:45:00 [facility] Emergency Department Note Patient Name: Mini Zhu Date of : 1990 32 year old female Treatment Room: Room/bed info not found Primary Care Physician: Rachelle Ackerman [facility] Patient Escorted by: Family [5] Mode of Arrival: Personal means [1] EMS Treatment Prior to ED Arrival: [facility] treatment: None Travel and Exposure Screening: Symptoms [...] clinic, negative x2. Recent encounters: 1. 06/11/23. [facility] ED. Pelvic pain. PID prophylaxis in ED. US Pelvis, fibroid, right ovarian cyst, notorsion, thickened endometrium 2. 06/11/23. [facility]. After ED encounter. Previously scheduled appointment. Trichomonas. [...] taking these medications which have NOT CHANGED DTRLBSSIVL-PILPYBYKPTFOS-WRHX 50-325-40 MG TABLET Take 1 tablet by [...] Electronically signed by: Michelle Terry MD 06/18/23112 [facility] - Pjqrjx5760-34-02 04:46:51 Pt given printed and verbal discharge [...] no apparent distress, accompanied by her . [facility]alech4970-58-33 23:09:00 Patient states: "I've been having suprapubic pain for about a week now, worst was since . 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 I took Midol an hour ago for my painbut no relief." T Yenny Blevins [facility]qijmz6296-10-70 23:06:00 [facility] ED Transfer of Care Note. Off-going Physician:ANGELES Lieberman Time of Transfer of Care: 4:29 AM Summary: Mini Zhu is a 32 year old female presenting with chief complaint of Pelvic Pain. Pending prior to disposition: Imaging Current interventions: Medications ondansetron (ZOFRAN (PF)) injection 4 mg (4 mg Slow IV Push Given 06/12/23 001) NaCl 0.9% (NS) bolus infusion 1,000 mL [...] components within normal limits COMP. METABOLIC PANEL (57636) - Abnormal; Notable for the following components: [...] fibroid. Severe endometrial thickening measuring 2.5 cm. [facility]: 21090 RL: 460 End of report. Additional Notes: Diagnosis/Impression as of 06/12/232 Pelvic pain Right ovarian cyst Intramural leiomyoma of uterus - (Uterine Fibroid) Endometrial hyperplasia Chronic anemia Medical Decision Making Mini Zhu is a 32 year old female whopresents to the ED with pelvic pain Problems Addressed: Chronic anemia: chronic illness or injury Endometrial hyperplasia: chronic illness or injury Details: Will need [employer] follow-up Pt appropriately referred to [facility] Intramural leiomyoma of uterus: chronic illness or injury Details: Will need [employer] follow-up Right ovarian cyst: chronic illness or [...] Aysha Chandra MD Specialty: OG-OBSTETRICS & GYNECOLOGY [facility] [address] [place] [address] DR. Lechuga [facility] [address] Selene Parra MD 06/12/232 [facility] Bhiexw6269-59-64 04:02:21 Pt given printed and verbal discharge [...] with steady gait, in no apparent distress. [facility]2023-08-14 01:27:07 Pt vomited approx 200ml of water and bile. No blood noted. [facility]2023-08-14 00:35:04 Pt arrived ambulatory with complaints of one episode of vomiting blood. Pt reports she became nauseated and at first threw up bile but then threw up dark red blood. Pt denies dark stools or excessiveNSAID use. Pt has been having intermittent abdominal pain for a week. Hx: Migraines, Bipolar, Anemia Xuan [facility]
[2025-06-03 21:44] LABS: Absolute Lymphocytes (CBC) 2.4 K/uL (0.7-4.9); Hematocrit 31.8 % (36.0-45.0); Hemoglobin 10.0 g/dL (12.0-15.0); MCH 22.1 pg (27.0-35.0); MCHC 31.4 g/dL (32.0-36.0); MCV 70.5 fL (80-100); MPV 8.1 fL (7.6-11.3); Nucleated RBC Absolute Count 0.0 (0-0); Nucleated Red Blood Cells % 0.0 % (0-0); RBC Red Blood Cell Count 4.52 M/uL (3.86-4.86); White Blood Count 7.60 thou/uL (4.3-10.9)
[2025-06-03 21:51] LABS: PT Prothrombin Time 12.6 SECONDS (10-13.0); Protime INR 1.12
[2025-06-03] MEDS ORDERED: ONDANSETRON 4 MG (ODT) TAB ONE (21:52)
[2025-06-03] MEDS ORDERED: DIPHENOX/ATROP SULF 1 TAB PO ONE (21:53)
[2025-06-03] MEDS ORDERED: GUAIFENESIN/DM 5 ML UCUP ONE (21:53)
[2025-06-03 22:10] LABS: ALT/SGPT 44 U/L (13-56); AST/SGOT 17 U/L (15-37); Albumin 3.7 g/dL (3.4-5.0); Albumin/Globulin Ratio 0.9 (1.1-1.8); Alkaline Phosphatase 90 U/L (45-117); Anion Gap 11.0 mEq/L (5.0-15.0); BUN Blood Urea Nitrogen 8 mg/dL (7-18); Bilirubin Indirect, Calculated 0.2 mg/dL (0.2-0.8); Globulin 3.9 g/dL (2.3-3.5); Glucose Level 109 mg/dL (74-106); Magnesium 2.0 mg/dL (1.6-2.4); NT PRO-BNP 9 pg/mL (<125); Potassium 4.0 mEq/L (3.5-5.1); Troponin High Sensitivity < 3.0 pg/mL (<58.9)
--- NOTE | 2025-06-03 23:22 | RAD REPORT ---
EXAMINATION: ONE VIEW CHEST XR CLINICAL INDICATION: Female, 34 years old.,chest pain TECHNIQUE: Frontal chest projection is submitted. Examination is limited by patient positioning and t echnique. COMPARISON: 06/24/2024 FINDINGS: The lungs are well inflated and clear. No pneumothorax or sizable effusion. The heart is normal in s ize. Mediastinal contours are unremarkable. IMPRESSION: No acute intrathoracic abnormalities.
[2025-06-03] MEDS ORDERED: ASPIRIN 81 MG CHEWABLE TABLET ONE ×2 (23:26→23:27)
[2025-06-03] MEDS ORDERED: AZITHROMYCIN 250 MG TAB ONE (23:54)
--- NOTE | 2025-06-04 00:58 | EDPHYS ---
Physician Documentation [facility] Name: Judith Tobar Age: 34 yrs Sex: Female : 1990 Arrival Date: 06/03/2025 Time: 21:13 Bed 5 Private MD: ED Physician Phil Sotelo HPI: 06/03 21:19 This 34 yrs old Female presents to ER via Unassigned with complaints of Chest sp4 Tightness, Cough. 06/04 01:10 51-year-old female presents with chest discomfort cough productive of sputum associated sp4 with nausea vomiting. Reports associated diarrhea.. 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 - Infectious Disease History:: Denies. - Social history:: Smoking status: Patient denies any tobacco usage or history of. Patient/guardian denies using alcohol, street drugs. - Family history:: not pertinent. ROS: 06/04 01:10 Constitutional: Negative for fever, chills, and weight loss, positive nausea vomiting sp4 diarrhea positive cough positive chest discomfort Eyes: Negative for injury, pain, redness, and discharge, All other systems are negative, Exam: 06/03 23:13 Constitutional: This is a well developed, well nourished patient who is awake, alert, sp4 and in no acute distress. Head/Face: Normocephalic, atraumatic. Eyes: Pupils equal round and reactive to light, extra-ocular motions intact. Lids and lashes normal. Conjunctiva and sclera are not injected. Cornea within normal limits. Periorbital areas with no swelling, redness, or edema. ENT: Nares patent. No nasal discharge, no septal abnormalities noted. Tympanic membranes are normal and external auditory canals are clear. Oropharynx with no redness, swelling, or masses, exudates, or evidence of obstruction, uvula midline. Mucous membranes moist. Neck: Trachea midline, no thyromegaly or masses palpated, and no cervical lymphadenopathy. Supple, full range of motion without nuchal rigidity, or vertebral point tenderness. Chest/axilla: Normal chest wall appearance and motion. Nontender with no deformity. No lesions are appreciated. Cardiovascular: Regular rate and rhythm with a normal S1 and S2. No gallops, murmurs, or rubs. No pulse deficits. Respiratory: Lungs have equal breath sounds bilaterally, clear to auscultation and percussion. No rales, rhonchi or wheezes noted. No increased work of breathing, no retractions or nasal flaring. Abdomen/GI: Soft, with normal bowel sounds. No distension or tympany. No guarding or rebound. No evidence of tenderness throughout. Back: No spinal tenderness. No costovertebral tenderness. Skin: Warm, dry with normal turgor. Normal color with no rashes, no lesions, and no evidence of cellulitis. MS/ Extremity: Pulses equal, no cyanosis. Neurovascular intact. Full, normal range of motion. Neuro: Awake and alert, GCS 15, oriented to person, place, time, and situation. Cranial nerves II-XII grossly intact. Motor strength 5/5 in all extremities. Sensory grossly intact. Psych: Awake, alert, with orientation to person, place and time. Behavior, mood, and affect are within normal limits ECG was reviewed by the Attending Physician. EKG at 2121 normal sinus rhythm normal EKG rate 95. Vital Signs: 21:17 BP 124 / 82; Pulse 103; Resp 16; Temp 98.9; Pulse Ox 97% ; Weight 79.38 kg; Height 5 bm8 ft. 2 in. ; Pain 8/10; 22:58 BP 101 / 72; Pulse 88; Resp 12; Temp 98.9; Pulse Ox 99% on R/A; Pain 8/10; bm8 06/04 00:01 BP 118 / 77; Pulse 79; Resp 15 S; Temp 98.4(O); Pulse Ox 100% on R/A; lg3 06/03 21:17 Body Mass Index 32.01 (79.38 kg, 157.48 cm) bm8 06/03 21:17 Pain Scale: Adult bm8 22:58 Pain Scale: Adult bm8 Manolo Coma Score: 06/03 21:34 Eye Response: spontaneous(4). Motor Response: obeys commands(6). Verbal Response: bm8 oriented(5). Total: 15. 22:58 Eye Response: spontaneous(4). Motor Response: obeys commands(6). Verbal Response: bm8 oriented(5). Total: 15. 06/04 01:10 Eye Response: spontaneous(4). Motor Response: obeys commands(6). Verbal Response: sp4 oriented(5). Total: 15. MDM: 06/03 21:29 Medical Screening Exam initiated sp4 23:40 ED course: CLINICAL INDICATION: Female, 34 years old.,chest pain TECHNIQUE: Frontal sp4 chest projection is submitted. Examination is limited by patient positioning and technique. COMPARISON: 06/24/2024 FINDINGS: The lungs are well inflated and clear. No pneumothorax or sizable effusion. The heart is normal in size. Mediastinal contours are unremarkable. IMPRESSION: No acute intrathoracic abnormalities.. 06/04 01:12 Differential Diagnosis altered mental status, sepsis, flu, Chest discomfort, angina. sp4 Data reviewed: vital signs, nurses notes, lab test result(s), EKG, radiologic studies, plain films. Consideration of Admission/Observation Escalation of care including admission/observation considered. 06/03 21:19 Order name: Cardiac monitoring; Complete Time: 21:32 sp4 06/03 21:19 Order name: EKG - Nurse/Tech; Complete Time: 21:32 sp4 06/03 21:19 Order name: IV Saline Lock; Complete Time: 21:32 sp4 06/03 21:19 Order name: Labs collected and sent; Complete Time: 21:32 sp4 06/03 21:19 Order name: O2 Per Protocol; Complete Time: 21:32 sp4 06/03 21:19 Order name: O2 Sat Monitoring; Complete Time: 21:32 sp4 EC/20 21:22 Rate is 95 beats/min. Rhythm is regular, Normal Sinus Rhythm. QRS [place] is Normal. [place] sp4 interval is normal. QRS interval is normal. QT interval is normal. No Q waves. T waves are Normal. No ST changes noted. Clinical impression: Normal ECG. Interpreted by me. Reviewed by me. Administered Medications: 22:00 Drug: Diphenoxylate-Atropine PO 2 tabs PO once Route: PO; 8 06/04 00:06 Follow up: Response: No adverse reaction 3 06/03 22:00 Drug: Ondansetron PO 4 mg PO once Route: PO; 8 06/04 00:05 Follow up: Response: No adverse reaction 3 06/03 22:00 Drug: Dextromethorphan-Guaifenesin PO Liquid 10 mg-100 mg/5 mL 20 ml PO once Route: PO; [facility] 06/04 00:05 Follow up: Response: No adverse reaction 3 06/03 23:36 Drug: Aspirin PO Chewable Tablet 324 mg PO once; 81 mg tablets x 4 Route: PO; [facility] 06/04 00:05 Follow up: Response: No adverse reaction lg3 00:05 Drug: AZITHromycin PO 500 mg PO once Route: PO; lg3 00:06 Follow up: Response: No adverse reaction lg3 Disposition: 01:13 Chart complete. sp4 Disposition Summary: 06/03/25 23:45 Discharge Ordered Notes: Location: Home sp4 Problem: new sp4 Symptoms: have improved sp4 Condition: Stable sp4 Diagnosis - Acute cough, noncardiac chest pain, Low lithium level sp4 Followup: sp4 - With: Private Physician - When: 7 - 10 days - Reason: Recheck today's complaints Discharge Instructions: - Discharge Summary Sheet sp4 - Cough, Adult, [id number] sp4 Forms: - Patient Portal Instructions sp4 Prescriptions: - dextromethorphan-guaifenesin 20-400 mg Oral tablet - take 1 tablet ORAL route 4 times per day as needed for cough; 60 tablet; sp4 Refills: 0, Product Selection Permitted - meloxicam 15 mg Oral tablet - take 1 tablet ORAL route daily PRN pain; 30 tablet; Refills: 0, Product sp4 Selection Permitted - Zithromax Z-Estevan 250 mg Oral Tablet - take 1 tablet ORAL route as directed for 5 days Day 1 - take two (2) tablets sp4 one time. Day 2, 3, 4 , 5 take one (1) tablet once daily.; 6 tablet; Refills: 0, Product Selection Permitted - promethazine 25 mg Oral tablet - take 1 tablet ORAL route every 6 hours As needed PRN pain; 30 tablet; Refills: sp4 0, Product Selection Permitted Signatures: Ivy Barfield, RN RN lg3 Phil Sotelo MD MD sp4 Neftali Rebolledo, RN RN bm8
--- NOTE | 2025-06-04 00:58 | ER ---
Nurse's Notes [facility] Name: Judith Tobar Age: 34 yrs Sex: Female : 1990 Arrival Date: 06/03/2025 Time: 21:13 Bed 5 Private MD: Diagnosis: Acute cough, noncardiac chest pain, Low lithium level Presentation: 06/03 21:17 Chief complaint: Patient states: I have had a burning throbbing pain since this bm8 morning. its about an 8/10 pain over the right side of my chest. 21:17 Coronavirus screen: Vaccine status: Patient reports receiving the 2nd dose of the covid bm8 vaccine. Ebola Screen: Patient negative for fever greater than or equal to 101.5 degrees Fahrenheit, and additional compatible Ebola Virus Disease symptoms Patient denies exposure to infectious person. Patient denies travel to an Ebola-affected area in the 21 days before illness onset. No symptoms or risks identified at this time. Initial Sepsis Screen: Does the patient meet any 2 criteria? No. Patient's initial sepsis screen is negative. Does the patient have a suspected source of infection? No. Patient's initial sepsis screen is negative. Risk Assessment: Do you want to hurt yourself or someone else? Patient reports no desire to harm self or others. Onset of symptoms was June 03, 2025 at 08:00. 21:17 Method Of Arrival: Ambulatory bm8 21:17 Acuity: SHABBIR 2 bm8 Triage Assessment: 21:27 General: Appears in no apparent distress. comfortable, Behavior is calm, cooperative, bm8 appropriate for age. 21:27 Pain: Complains of pain in anterior aspect of right upper chest and mid-sternal area bm8 Pain currently is 8 out of 10 on a pain scale. EENT: No deficits noted. No signs and/or symptoms were reported regarding the EENT system. Neuro: No deficits noted. Level of Consciousness is awake, alert, obeys commands, Oriented to person, place, time, situation, Appropriate for age. Cardiovascular: Reports chest pain, Heart tones S1 S2 present Capillary refill < 3 seconds in bilateral fingers Patient's skin is warm and dry. Rhythm is sinus rhythm. Respiratory: Airway is patent Respiratory effort is even, unlabored, Respiratory pattern is regular, symmetrical, Breath sounds are clear bilaterally. GI: No signs and/or symptoms were reported involving the gastrointestinal system. : No signs and/or symptoms were reported regarding the genitourinary system. Derm: No signs and/or symptoms reported regarding the dermatologic system. Musculoskeletal: No signs and/or symptoms reported regarding the musculoskeletal system. 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 - Infectious Disease History:: Denies. - Social history:: Smoking status: Patient denies any tobacco usage or history of. Patient/guardian denies using alcohol, street drugs. - Family history:: not pertinent. Screenin:34 [facility] ED Fall Risk Assessment (Adult) History of falling in the last 3 months, bm8 including since admission No falls in past 3 months (0 pts) Confusion or Disorientation No (0 pts) Intoxicated or Sedated No (0 pts) Impaired Gait No (0 pts) Mobility Assist Device Used No (0 pt) Altered Elimination No (0 pt) Score/Fall Risk Level 0 - 2 = Low Risk Oriented to surroundings, Maintained a safe environment, Educated pt \T\ family on fall prevention, incl call for assistance when getting out of bed, Assessed \T\ reinforced patient's understanding of fall precautions, Hourly rounding (assess needs \T\ fall precautionary measures) done, Used ambulatory aids as needed (educated on \T\ assisted with), Used gait belt as appropriate. Abuse screen: Denies threats or abuse. Nutritional screening: No deficits noted. Tuberculosis screening: No symptoms or risk factors identified. Assessment: 22:58 Reassessment: Patient appears in no apparent distress at this time. Patient and/or bm8 family updated on plan of care and expected duration. Pain level reassessed. Patient is alert, oriented x 3, equal unlabored respirations, skin warm/dry/pink. Reassessment: pt was sleeping with symmetrical rise and fall of chest until this nurse entered the room, asked about pain and she stated that it was basically unchanged. Pain: Complains of pain in chest and anterior aspect of right upper chest Pain does not radiate. Pain began 1 day ago. Neuro: No deficits noted. Level of Consciousness is awake, alert, obeys commands, Oriented to person, place, time, situation, Appropriate for age. Cardiovascular: Reports chest pain, Heart tones S1 S2 present Capillary refill < 3 seconds in bilateral fingers Patient's skin is warm and dry. Rhythm is sinus rhythm. Respiratory: Airway is patent Respiratory effort is even, unlabored, Respiratory pattern is regular, symmetrical. 06/04 00:01 Reassessment: Patient appears in no apparent distress at this time. No changes from lg3 previously documented assessment. Patient and/or family updated on plan of care and expected duration. Pain level reassessed. Patient is alert, oriented x 3, equal unlabored respirations, skin warm/dry/pink. Patient states feeling better. Patient states symptoms have improved. Vital Signs: 06/03 21:17 BP 124 / 82; Pulse 103; Resp 16; Temp 98.9; Pulse Ox 97% ; Weight 79.38 kg; Height 5 bm8 ft. 2 in. ; Pain 8/10; 22:58 BP 101 / 72; Pulse 88; Resp 12; Temp 98.9; Pulse Ox 99% on R/A; Pain 8/10; bm8 06/04 00:01 BP 118 / 77; Pulse 79; Resp 15 S; Temp 98.4(O); Pulse Ox 100% on R/A; lg3 06/03 21:17 Body Mass Index 32.01 (79.38 kg, 157.48 cm) bm8 06/03 21:17 Pain Scale: Adult bm8 22:58 Pain Scale: Adult bm8 Manolo Coma Score: 06/03 21:34 Eye Response: spontaneous(4). Motor Response: obeys commands(6). Verbal Response: bm8 oriented(5). Total: 15. 22:58 Eye Response: spontaneous(4). Motor Response: obeys commands(6). Verbal Response: bm8 oriented(5). Total: 15. 06/04 01:10 Eye Response: spontaneous(4). Motor Response: obeys commands(6). Verbal Response: sp4 oriented(5). Total: 15. ED Course: 06/03 21:16 Patient arrived in ED. gm2 21:18 Phil Sotelo MD is Attending Physician. sp4 21:19 Ivy Barfield RN is Primary Nurse. lg3 21:27 Arm band placed on right wrist. bm8 21:29 Triage completed. bm8 21:34 Patient has correct armband on for positive identification. Bed in low position. Call bm8 light in reach. Side rails up X2. Adult w/ patient. Client placed on continuous cardiac and pulse oximetry monitoring. NIBP monitoring applied. monitoring specialist on. Pulse ox on. NIBP on. Door closed. Noise minimized. Warm blanket given. Pillow given. Verbal reassurance given. Head of bed elevated. 21:34 No provider procedures requiring assistance completed. Initial lab(s) drawn, by ED 8 staff, sent to lab. EKG done, by ED staff, reviewed by Phil Sotelo MD. Inserted saline lock: 20 gauge in right antecubital area, using aseptic technique. Blood collected. Flushed with 10 mL NS. Patient maintains SpO2 saturation greater than 95% on room air. 06/04 00:01 IV discontinued, intact, bleeding controlled, No redness/swelling at site. Pressure lg3 dressing applied. Administered Medications: 06/03 22:00 Drug: Diphenoxylate-Atropine PO 2 tabs PO once Route: PO; [facility] 06/04 00:06 Follow up: Response: No adverse reaction merged with [facility] 06/03 22:00 Drug: Ondansetron PO 4 mg PO once Route: PO; [facility] 06/04 00:05 Follow up: Response: No adverse reaction merged with [facility] 06/03 22:00 Drug: Dextromethorphan-Guaifenesin PO Liquid 10 mg-100 mg/5 mL 20 ml PO once Route: PO; [facility] 06/04 00:05 Follow up: Response: No adverse reaction merged with [facility] 06/03 23:36 Drug: Aspirin PO Chewable Tablet 324 mg PO once; 81 mg tablets x 4 Route: PO; bm8 06/04 00:05 Follow up: Response: No adverse reaction lg3 00:05 Drug: AZITHromycin PO 500 mg PO once Route: PO; lg3 00:06 Follow up: Response: No adverse reaction lg3 Medication: 06/03 21:34 VIS not applicable for this client. bm8 Outcome: 23:45 Discharge ordered by MD. bourne 08 00:01 Discharged to home ambulatory, lg3 Condition: stable Discharge instructions given to patient, Instructed on discharge instructions, follow up and referral plans. medication usage, Demonstrated understanding of instructions, follow-up care, medications, Prescriptions given X 4, 00:06 Patient left the ED. lg3 Signatures: Ivy Barfield RN RN lg3 Phil Sotelo MD MD sp4 Anahi Karimi 2 Neftali Rebolledo, RN RN bm8 Corrections: (The following items were deleted from the chart) 06/03 21:35 21:34 Door closed. Noise minimized. Warm blanket given. Pillow given. Verbal bm8 reassurance given. Head of bed bm8
[2025-06-04 06:21] VITALS: BP 118/77; TEMP 98.4; O2SAT 100
== END 2025-06-04 00:06 | disposition home or self-care (01) ==
LOC: ER 21:13
DX: R07.89 Other chest pain (principal); R05.9 Cough, unspecified; R78.89 Finding of other specified substances, not normally found in blood
CPT/HCPCS: 36415; 71045; 80048; 80076; 80178; 83735; 83880; 84484; 85025; 85610; 93005; 99285; Q0162

== ENCOUNTER 2025-07-04 23:15 | Emergency (ER) | payer SELFPAY ==
--- OUTSIDE RECORDS SUMMARY | 2025-07-04 23:30 | XMS REPORT | Continuity of Care Document ---
Author Name Unknown Address [address] [facility] [address] [place] [address] [facility] [place] Address [address] [facility] 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 Garnett Machine Operator Helper Name Role Phone Liratj CURRAN, Ashley Primary Care Physician Nurse, Dat Rmchp Rgv Cprit Obgyn Attending Clini zenobia Unavailable Matteo LEONARD, Lesa Frederick Attending Clinician HERMILO RICKS Attending Clinician Unavailable HERMILO RICKS Attending Clinician Unavailable DONI MARIE Attending Clinician Unavailable DONI MARIE Attending Clinician Unavailable Pgy4 Attending Clinician Unavailable Kaye House MD Attending Clinician [phone] PATRICE HOLLAND Attending Clinician Unavailab Patrice Nevarez MD Attending Clinician + [phone] SELENE PARRA Attending Clinician Unavailable SELENE PARRA Attending Clinician Unavailable Selene Parra MD Attending Clinician [phone] Hermilo Ricks DO Attending Clinician [phone] Doni Marie MD Attending Clinician +[phone] GABY TERRY Attending Clinician Unavailab shanna Terry SALES AND MERCHANDISING ASSOCIATE, Gaby Attending Clinician [phone] CHRISTY RG Attending Clinician Unavailable CHRISTY RG Attending Clinician Unavailable Landy CLEVELAND, Christy Matthews Attending Clinician +- [phone] CHAYO SRIVASTAVA Attending Clinician Unavailab Chayo Davis DO Attending Clinician [phone] Kavita OJEDA Attending Clinician Unavailable Rusty PAC, Kavita Rowe Attending Clinician [phone] Rama GUZMANP, Danie Ackerman Attending Clinician [phone] MEMO RESENDIZ Attending Clinician Unavailable Memo Resendiz MD Attending Clinician [phone] DANII ARRIAGA Attending Clinician Unavailable Rose Hoff MD Attending Clinician [phone] Danii Ferrer Attending Clinician [phone] MICHELLE TERRY Attending Clinician UnavailMichelle Evans MD Attending Clinician + [phone] RAVEN LIEBERMAN Attending Clinician Unavailable Liebermanmolly OSORIO, Raven S Attending Clinician [phone] Doctor Unassigned, Skene Attending Clinician U SURAJ Blanca Attending Clinician UnavailSuraj Kee MD Attending Clinician + [phone] CAT RUTLEDGE Attending Clinician Unavailable LISA TRAN Attending Clinician Unavailable Lisa Cruz Attending Clinician + [phone] CL GATES Attending Clinician Unavailable ROCHELLE GOLD [...] Date Expirati on Date Source [facility] [id number] 2023 00:00:00 Problems Condition Name Condition Details Condition Category Status Onset Date Resolution Date Last Treatment Date Treating Clinician Comments Source Acute nonintract able headache, unspecifie d headache type Acute nonintract able headache, unspecifie d headache type Disease Active 3- 00:00: 00 [facility] Other migraine without status migrainosu s, not intractabl e Other migraine without status migrainosu s, not intractabl e Disease Active 3 00:00: 00 [facility] Lower abdominal pain Lower abdominal pain Disease Active 1- 00:00: 00 [facility] Ureterolit hiasis Ureterolit hiasis Disease Active 8- 00:00: 00 [facility] No known active problems No known active problems Disease [facility] Allergies, Adverse Reactions, Alerts Allergy Name Allergy Type Status Severity Reaction(s) Onset Date Inactive Date Treating Clinician Comments Source SUMATRIP FRANKS DRUG INGREDI Active Palpitations 04-14 00:00: 00 [facility] Sumatrip franks Propensi ty to adverse reaction s Active Palpitations 04-14 00:00: 00 Rapid heart rate [facility] BUSPIRON E DRUG INGREDI Active Other-Cmnt 12-17 00:00: 00 [facility] Buspiron e Propensi ty to adverse reaction s Active Other - See comments 12-17 00:00: 00 Gives SI thoughts [facility] GABAPENT IN DRUG INGREDI Active Other-Cmnt 2022-10 0 00:00: 00 [facility] Gabapent in Propensi ty to adverse reaction s Active Other - See comments 2022-10 0 00:00: 00 Manic episodes [facility] NO KNOWN ALLERGIE S Drug Class Active [facility] Social History Social Habit Start Date Stop Date Quantity Comments Source ASSERTION Possible [facility] Gender identity [facility] Sexual orientation U [facility] History of Social function 2025-02-04 00:00:00 2025-02-04 00:00:00 [facility] Exposure to SARS-CoV-2 (event) 2023-02-24 00:00:00 2023-03-06 22:59:00 Not sure [facility] Sex assigned at 1990 00:00:00 1990 00:00:00 [facility] Smoking Status Start Date Stop Date Source Tobacco smoking consumption unknown [facility] Medications Ordered Medication Name Filled Medication Name Start Date Stop Date Current Medication? Ordering Clinician Indication Dosage Frequency Signature (SIG) Comments Components Source iopamidol (ISOVUE 370-500 mL) injection 85 mL 04-14 15:45: 00 04-14 15:45 :00 No [id number] 85mL 85 mL, Intravenou s, ONCE, 1 dose, On Sun04/14/25 at 1045, Routine [facility] maalox/diph enhydrAMINE :lidocaine2 %viscous 1:1:1: suspension (COMPOUNDED ) 04-14 13:30: 00 04-14 13:45 :00 No 15mL 15 mL, Oral, ONCE, 1 dose, On Sun04/14/25 at 0830, Routine [facility] dicyclomine 20 mg tablet 04-14 00:00: 00 Yes [id number] 20mg Take 1 tablet by mouth 4 times daily. [facility] NaCl 0.9% (NS) bolus infusion 1,000 mL 03-09 06:30: 00 03-09 07:43 :00 No 1000mL at 999 mL/hr, 1,000 mL, IV Infusion, ONCE, 1 dose, On Sun03/09/25 at 0130, STAT [facility] methylpredn isolone sod succ (SOLU-MEDRO L) injection 125 mg 03-09 06:30: 00 03-09 05:37 :00 No 125mg 125 mg, Slow IV Push, ONCE NOW, 1 dose, On Sun03/09/25 at 0130, NICOLASA [facility] magnesium sulfate in D5W 1 gram/100 mL RTU IV Piggyback 1 g 03-09 06:30: 00 03-09 06:39 :00 No 1g 1 g, IV Piggyback, ONCE, 1 dose, On 03/09/25 at 0130, Administer over 60 Minutes, 100 mL [facility] ondansetron (ZOFRAN (PF)) injection 4 mg 03-09 04:00: 00 03-09 03:15 :00 No 4mg 4 mg, Slow IV Push, ONCE, 1 dose, On Sun03/08/25 at 2300, 2 mL [facility] ketorolac (TORADOL) injection 30 mg 03-09 04:00: 00 03-09 03:16 :00 No 30mg 30 mg, Slow IV Push, ONCE, 1 dose, On Sun03/08/25 at 2300, NICOLASA [facility] caffeine tablet 200 mg caffeine tablet 200 mg 03-09 03:00: 00 03-09 03:31 :00 No 200mg 200 mg, Oral, Once, 1 dose, On Sun03/08/25 at 2200, NICOLASA [facility] diphenhydrA MINE (BENADRYL) injection 25 mg 03-09 03:00: 00 03-09 03:16 :00 No 25mg 25 mg, Slow IV Push, ONCE, 1 dose, On Sun03/08/25 at 2200, STAT [facility] SUMAtriptan 50 mg tablet 03-09 00:00: 00 Yes [id number] 50mg Take 1 tablet by mouth 3 times daily as needed for Migraine. [facility] Lidocaine (LIDOCARE) 4 % patch 1 Patch 01-27 18:30: 00 01-28 06:29 :00 No 1{patch } 1 Patch, Topical, Administer over 12 Hours, ONCE, 1 dose, On Sun01/27/25 at 1330, Routine [facility] ketorolac (TORADOL) injection 30 mg 01-27 18:15: 00 01-27 17:57 :00 No 30mg 30 mg, Slow IV Push, ONCE, 1 dose, On Sun01/27/25 at 1315, Routine [facility] methocarbam oL (ROBAXIN) tablet 1,000 mg 01-27 17:45: 00 01-27 17:52 :00 No 1000mg 1,000 mg, Oral, ONCE, 1 dose, On Sun01/27/25 at 1245, NICOLASA [facility] diphenhydrA MINE (BENADRYL) injection 12.5 mg 01-27 17:45: 00 01-27 17:55 :00 No 12.5mg 12.5 mg, Slow IV Push, ONCE, 1 dose, On Sun01/27/25 at 1245, STAT [facility] metoclopram farzana HCl (REGLAN) injection 10 mg 01-27 17:45: 00 01-27 17:57 :00 No 10mg 10 mg, Slow IV Push, ONCE, 1 dose, On Sun01/27/25 at 1245, NICOLASA [facility] methocarbam oL 500 mg tablet 01-27 00:00: 00 02-04 00:00 :00 No [id number] 4 500mg Take 1 tablet by mouth 4 (four) times daily for 10 days. [facility] methylPREDN ISolone 4 mg tablets 01-27 00:00: 00 02-04 00:00 :00 No [id number] 4 Take by mouth SEE-INSTRU CTIONS. follow package directions [facility] lidocaine 5 % (700 mg/patch) patch 01-27 00:00: 00 02-04 00:00 :00 No [id number] 4 1{patch } Apply 1 Patch to area(s) in the morning for 30 doses. [facility] iopamidol (ISOVUE 370-500 mL) injection 85 mL 01-17 09:30: 00 01-17 09:30 :00 No [id number] 85mL 85 mL, Intravenou s, ONCE, 1 dose, On 01/17/25 at 0430, Routine [facility] ketorolac (TORADOL) injection 30 mg 01-17 09:15: 01-17 08:15 :00 No 30mg 30 mg, Slow IV Push, ONCE, 1 dose, On Sun01/17/25 at 0415, Routine [facility] metoclopram farzana HCl (REGLAN) injection 10 mg 01-17 08:15: 01-17 08:16 :00 No 10mg 10 mg, Slow IV Push, ONCE, 1 dose, On 01/17/25 at 0315, NICOLASA [facility] diphenhydrA MINE (BENADRYL) injection 25 mg 01-17 08:15: 01-17 08:16 :00 No 25mg 25 mg, Slow IV Push, ONCE, 1 dose, On 01/17/25 at 031, STAT [facility] Nitrofurant oin&Nit. Macrocryst (MACROBID) 100 mg capsule 01-17 00:00: 00 02-04 00:00 :00 No [id number] 100mg Take 1 capsule by mouth in the morning and 1 capsule in the evening. [facility] iopamidol (ISOVUE 370-500 mL) injection 85 mL 01-05 13:15: 01-05 13:15 :00 No [id number] 85mL 85 mL, Intravenou s, ONCE, 1 dose, On Sun01/05/25 at 0815, Routine [facility] NaCl 0.9% (NS) bolus infusion 1,000 mL 01-05 12:00: 01-05 14:39 :00 No 1000mL at 999 mL/hr, 1,000 mL, IV Piggyback, ONCE, 1 dose, On Sun01/05/25 at 0700, STAT [facility] NaCl 0.9% (NS) bolus infusion 1,000 mL 01-05 11:15: 00 01-05 10:56 :00 No 1000mL at 999 mL/hr, 1,000 mL, IV Piggyback, ONCE, 1 dose, On Sun01/05/25 at 0615, STAT [facility] ondansetron (ZOFRAN (PF)) injection 4 mg 01-05 11:00: 00 01-05 10:58 :00 No 4mg 4 mg, Slow IV Push, ONCE, 1 dose, On Sun01/05/25 at 0600, Administer over 2-5 Minutes, 2 mL [facility] butalbital- acetaminoph en-caff (ESGIC) 50-325-40 mg tablet 1 tablet 12-18 06:00: 00 12-18 06:24 :00 No 1{tbl} 1 tablet, Oral, ONCE, 1 dose, On Sun12/18/24 at 0000, NICOLASA [facility] diphenhydrA MINE (BENADRYL) injection 25 mg 12-18 06:00: 00 12-18 06:24 :00 No 25mg 25 mg, Slow IV Push, ONCE, 1 dose, On Ashley 12/18/24 at 0000, [facility] metoclopram farzana HCl (REGLAN) injection 10 mg 12-18 06:00: 00 12-18 06:24 :00 No 10mg 10 mg, Slow IV Push, ONCE, 1 dose, On Ashely 12/18/24 at 0000, [facility] metoclopram farzana 10 mg tablet 12-18 [...] 1 dose, On Sun11/18/24 at 2330, Routine [facility] amoxicillin (TRIMOX) capsule 500 mg 11-19 04:30: 00 11-19 04:43 :00 No 500mg 500 mg, Oral, ONCE, 1 dose, On Sun11/18/24 at 2230, NICOLASA, Reason for Anti-Infec tive: Documented Infection, Documented Infection Site: HEENT, Duration of Therapy: Once (ED) [facility] ibuprofen 800 mg tablet 2- 00:00: 00 02-04 00:00 :00 No [id number] 800mg Take 1 tablet by mouth every 8 (eight) hours as needed for Alternate with [place] for pain scale 1-3. [facility] amoxicillin 500 mg capsule 11-18 00:00: 00 02-04 00:00 :00 No [id number] 500mg Take 1 capsule by mouth in the morning and 1 capsule at noon and 1 capsule in the evening. [facility] Bromfed DM 2 mg-30 mg-10 mg/5 mL oral syrup 1-08 00:00: 00 Yes 10mg/5 mL Darryl Waggoner metoclopram farzana HCl (REGLAN) injection 10 mg 2023-10 13:15: 00 07-25 13:23 :00 No 10mg 10 mg, Slow IV Push, ONCE, 1 dose, On Sun07/25/24 at 0815, NICOLASA [facility] pantoprazol e 40 mg EC tablet 2023-10 00:00: 00 Yes [id number] 40mg Take 1 tablet by mouth in the morning. [facility] metoclopram farzana HCl 10 mg tablet 2023-10 00:00: 00 02-04 00:00 :00 No [id number] 10mg Take 1 tablet by mouth every 6 (six) hours. [facility] iopamidol (ISOVUE 370-500 mL) injection 85 mL 9-20 09:45: 00 07-04 09:45 :00 No [id number] 85mL 85 mL, Intravenou s, ONCE, 1 dose, On Sun07/04/24 at 0445, Routine [facility] ketorolac (TORADOL) injection 30 mg 07-04 09:15: 00 07-04 08:27 :00 No 30mg 30 mg, Slow IV Push, ONCE, 1 dose, On Sun07/04/24 at 0415, Routine [facility] Lidocaine Viscous 2 % mucosal [...] ONCE, 1 dose, [facility]03/12/24 [facility] 0545[facility] (REGLAN) injection 10 mg 03-12 10:45: 00 03-12 10:52 :00 No 10mg 10 mg, Slow IV Push, ONCE, 1 dose, On Sun03/12/24 at 0545, NICOLASA [facility] iopamidol (ISOVUE 370-500 mL) injection 100 mL 03-12 10:15: 00 03-12 10:15 :00 No [id number] 100mL 100 mL, Intravenou s, ONCE, 1 dose, On Sun03/12/24 at 0515, Routine [facility] ketorolac (TORADOL) injection 30 mg 03-12 10:00: 00 03-12 09:01 :00 No 30mg 30 mg, Slow IV Push, ONCE, 1 dose, On Sun03/12/24 at 0500, Routine [facility] NaCl 0.9% (NS) IV infusion 1,000 mL 03-12 09:45: 00 03-12 10:39 :00 No 1000mL at 999 mL/hr, Intravenou s, ONCE, 1 dose, On Sun03/12/24 at 0445, Routine [facility] ondansetron (ZOFRAN (PF)) injection 4 mg 03-12 09:00: 00 03-12 09:01 :00 No 4mg 4 mg, Slow IV Push, ONCE, 1 dose, On Sun03/12/24 at 0400, NICOLASA [facility] butalbital- acetaminoph en-caff 50-325-40 mg tablet 03-12 00:00: 00 02-04 00:00 :00 No [id number] 1{tbl} Take 1 tablet by mouth every 6 (six) hours as needed (Headache) . [facility] dicyclomine 20 mg tablet 03-12 00:00: 00 02-04 00:00 :00 No [id number] 20mg Take 1 tablet by mouth every 6 (six) hours as needed for Abdominal pain. [facility] metoclopram farzana HCl 10 mg tablet 03-12 00:00: 00 07-25 00:00 :00 No [id number] 10mg Take 1 tablet by mouth every 6 (six) hours. [facility] ondansetron HCl 4 mg tablet 03-06 00:00: 00 Yes 1mg Darryl Waggoner iopamidol (ISOVUE 370-500 mL) injection 85 mL 02-02 11:00: 00 02-02 11:00 :00 No [id number] 85mL 85 mL, Intravenou s, ONCE, 1 dose, On Sun02/03/24 at 0600, Routine [facility] FENTanyl PF (SUBLIMAZE (PF)) injection 50 mcg 02-02 10:30: 00 02-02 09:52 :00 No 50ug 50 mcg, Slow IV Push, ONCE, 1 dose, On 4/21/24 at 0530, Routine [facility] metoclopram farzana HCl (REGLAN) injection 10 mg 02-02 09:30: 00 02-02 09:52 :00 No 10mg 10 mg, Slow IV Push, ONCE, 1 dose, On Sun02/03/24 at 0430, NICOLASA [facility] pantoprazol e (PROTONIX) injection 40 mg 02-02 09:30: 00 02-02 09:53 :00 No 40mg 40 mg, Slow IV Push, ONCE, 1 dose, On Sun02/03/24 at 0430 [facility] dicyclomine 20 mg tablet 02-02 00:00: 00 02-04 00:00 :00 No [id number] 20mg Take 1 tablet by mouth every 6 (six) hours as needed for Abdominal pain. [facility] metoclopram farzana HCl 10 mg tablet 02-02 00:00: 00 07-25 00:00 :00 No [id number] 10mg Take 1 tablet by mouth every 6 (six) hours. [facility] pantoprazol e (PROTONIX) 40 mg EC tablet 02-02 00:00: 00 07-25 00:00 :00 No [id number] 40mg Take 1 tablet by mouth in the morning. [facility] loratadine (CLARITIN) tablet 10 mg 01-01 06:30: 00 01-01 18:29 :00 No 10mg 10 mg, Oral, ONCE, 1 dose, On Sun01/02/24 at 0130, NICOLASA [facility] azithromyci n (ZITHROMAX) tablet 500 mg 01-01 05:45: 00 01-01 05:39 :00 No 500mg 500 mg, Oral, ONCE, 1 dose, On Sun01/02/24 at 0045, NICOLASA
Re ason for Anti-Infec tive: Documented Infection< br>Documen zoila Infection Site: HEENT
D uration of Therapy: Once (ED) [facility] azithromyci n (ZITHROMAX Z-RAMESH) 250 mg tablet 01-01 00:00: 00 02-04 00:00 :00 No [id number] 500mg Take 2 tablets by mouth SEE-INSTRU CTIONS. Take 500 mg day 1, then 250 mg days 2 to 5. [facility] loratadine- pseudoephed rine (CLARITIN-D 24 HOUR) 10-240 mg per 24 hr tablet 01-01 00:00: 00 02-04 00:00 :00 No [id number] 1{tbl} Take 1 tablet by mouth in the morning. [facility] dextrometho rphan-guaif enesin 10-100 mg/5 mL solution 01-01 00:00: 00 02-04 00:00 :00 No [id number] 10mL Take 10 mL by mouth every 6 (six) hours as needed for Cough. [facility] butalbital- acetaminoph en-caff (ESGIC) 50-325-40 mg tablet 1 tablet 12-25 09:15: 00 12-25 09:09 :00 No 1{tbl} 1 tablet, Oral, ONCE, 1 dose, On Sun12/26/23 at 0415, NICOLASA [facility] butalbital- acetaminoph en-caff 50-325-40 mg tablet 12-25 00:00: 00 02-04 00:00 :00 No [id number] 1{tbl} Take 1 tablet by mouth every 6 (six) hours as needed (Headache) . [facility] ketorolac (TORADOL) injection 30 mg 11-20 17:15: 00 11-20 16:28 :00 No 30mg 30 mg, Slow IV Push, ONCE, 1 dose, On Sun11/20/23 at 1115, NICOLASA [facility] iopamidol (ISOVUE 370-500 mL) injection 80 mL 11-20 14:30: 00 11-20 14:45 :00 No [id number] 80mL 80 mL, Intravenou s, ONCE, 1 dose, On Sun11/20/23 at 0845, Routine [facility] NaCl 0.9% (NS) bolus infusion 1,000 mL 11-20 14:15: 00 11-20 16:26 :00 No 1000mL at 999 mL/hr, 1,000 mL, IV Infusion, ONCE, 1 dose, On Sun11/20/23 at 0815, STAT [facility] ondansetron 4 mg disintegrat ing tablet 11-20 00:00: 00 Yes [id number] 4mg Take 1 tablet by mouth every 4 (four) hours as needed for Nausea and Vomiting (N/V). [facility] cephALEXin (KEFLEX) 500 mg capsule 11-20 00:00: 00 02-04 00:00 :00 No [id number] 500mg Take 1 capsule by mouth in the morning and 1 capsule at noon and 1 capsule in the evening. [facility] naproxen 500 mg tablet 11-20 00:00: 00 12-01 05:59 :00 No [id number] 500mg Take 1 tablet by mouth in the morning and 1 tablet in the evening. Take with meals. Do all this for 10 days. [facility] maalox:diph enhydrAMINE :lidocaine 2 % viscous 1:1:1 ([facility]) oral suspension 15 mL 11-12 07:00: 00 11-12 06:55 :00 No 15mL 15 mL, Oral, ONCE, 1 dose, On Sun11/12/23 at 0100, Routine [facility] ondansetron (ZOFRAN-ODT ) disintegrat ing tablet 4 mg 11-12 07:00: 00 11-12 06:16 :00 No 4mg 4 mg, Oral, ONCE, 1 dose, On Sun11/12/23 at 0100, Routine [facility] benzonatate 200 mg capsule 10-27 00:00: 00 Yes [id number] 200mg Take 1 capsule by mouth 3 (three) times daily as needed for Cough for up to 20 doses. [facility] ibuprofen 600 mg tablet 10-27 00:00: 00 Yes [id number] 600mg Take 1 tablet by mouth every 6 (six) hours as needed for Pain (scale 4-6). [facility] ondansetron 4 mg disintegrat ing tablet 10-27 00:00: 00 11-20 00:00 :00 No [id number] 4mg Take 1 tablet by mouth every 8 (eight) hours as needed for Nausea and Vomiting (N/V). [facility] lactulose (CEPHULAC) solution 30 mL 2022-10 01:45: 00 09-09 02:36 :00 No 30mL 30 mL, Oral, ONCE, 1 dose, On 09/08/23 at 1945, NICOLASA [facility] dexamethaso ne (DECADRON PHOSPHATE) injection 10 mg 2022-10 01:30: 00 09-09 02:40 :00 No 10mg 10 mg, Oral, ONCE, 1 dose, On 09/08/23 at 1930, Routine [facility] ketorolac (TORADOL) injection 30 mg 2022-10 01:30: 00 09-09 02:40 :00 No 30mg 30 mg, Intramuscu lar, ONCE, 1 dose, On 09/08/23 at 1930, Routine [facility] ketorolac 10 mg tablet 2022-10 00:00: 00 11-12 00:00 :00 No [id number] 10mg Take 1 tablet by mouth every 6 (six) hours as needed for Pain (scale 7-10). [facility] glycerin/mi neral oil, AGLO ENEMA, Enem 2022-10 00:00: 00 11-12 00:00 :00 No [id number] 225mL Insert 225 mL into rectum as needed for Constipati on. [facility] cefdinir 300 mg capsule 2022-10 00:00: 00 09-16 05:59 :00 No [id number] 300mg Take 1 capsule by mouth every 12 (twelve) hours for 7 days. [facility] lactulose 10 gram/15 mL solution 2022-10 00:00: 00 09-14 05:59 :00 No [id number] 15mL Take 15 mL by mouth in the morning for 5 days. [facility] HYDROcodone -acetaminop hen (NORCO 5) 5-325 mg tablet 1 tablet 2022-10 13:15: 00 09-07 13:33 :00 No 1{tbl} 1 tablet, Oral, ONCE, 1 dose, On Sun09/07/23 at 0715, [facility] diazePAM (VALIUM) tablet 5 mg 2022-10 13:15: 09-07 13:33 :00 No 5mg 5 mg, Oral, ONCE, 1 dose, On Sun09/07/23 at 0715, [facility] dexamethaso ne sod phos PF injection 10 mg 2022-10 13:15: 00 09-07 13:33 :00 No 10mg 10 mg, Oral, ONCE, 1 dose, On Sun09/07/23 at 0715, 1 mL [facility] methocarbam oL 750 mg tablet 2022-10 00:00: 00 11-12 00:00 :00 No [id number] 750mg Take 1 tablet by mouth every 6 (six) hours as needed for Pain (scale 1-3). [facility] ondansetron (ZOFRAN (PF)) injection 4 mg 2022-10 02:00: 00 09-04 02:30 :00 No 4mg 4 mg, Slow IV Push, ONCE, 1 dose, On Sun09/03/23 at 1999, [facility] meclizine (TRAVEL-EAS E (MECLIZINE) ) tablet 50 mg 2022-10 02:00: 00 09-04 02:30 :00 No 50mg 50 mg, Oral, ONCE, 1 dose, On Sun09/03/23 at 1999, [facility] ondansetron (ZOFRAN) 4 mg tablet 2022-10 00:00: 00 Yes [id number] 4mg Take 1 tablet by mouth every 8 (eight) hours as needed for Nausea and Vomiting (N/V). [facility] meclizine 25 mg tablet 2022-10 00:00: 00 11-12 00:00 :00 No [id number] 25mg Take 1 tablet by mouth every 6 (six) hours. [facility] ondansetron (ZOFRAN-ODT ) disintegrat ing tablet 4 mg 2022-10 08:30: 00 07-26 07:45 :00 No 4mg 4 mg, Oral, ONCE, 1 dose, On Ashley 07/26/23 at 0330, Routine [facility] proMETHazin e 25 mg tablet 2022-10 00:00: 00 09-03 00:00 :00 No [id number] 12.5mg Take 0.5 tablets by mouth every 6 (six) hours as needed for Nausea and Vomiting (N/V). [facility] loratadine 10 mg tablet 2022-10 00:00: 00 02-04 00:00 :00 No [id number] 10mg Take 1 tablet by mouth at bedtime as needed for Allergies or Runny nose. [facility] albuterol 90 mcg/actuati on inhaler 2022-10 00:00: 00 02-04 00:00 :00 No [id number] 2{puff} Inhale 2 Puffs every 4 (four) hours as needed for Wheezing or Shortness of Breath. [facility] benzonatate 200 mg capsule 2022-10 00:00: 00 11-12 00:00 :00 No [id number] 200mg Take 1 capsule by mouth 3 (three) times daily as needed for Cough. [facility] fluticasone propionate 50 mcg/actuati on nasal spray 2022-10 00:00: 00 11-12 00:00 :00 No [id number] 2{spray } Use 2 Sprays in each nostril in the morning. [facility] predniSONE 20 mg tablet 2022-10 0-11 00:00: 00 07-31 04:59 :00 No [id number] 40mg Take 2 tablets by mouth in the morning for 5 days. [facility] TAKE 1 TABLET DAILY. 2022-10 00:00: 00 01-30 00:00 :00 No 10 Darryl Waggoner ibuprofen 800 mg tablet 07-12 00:00: 00 11-12 00:00 :00 No [id number] 800mg Take 1 tablet by mouth every 8 (eight) hours. [facility] methylPREDN ISolone sodium succinate (SOLU-MEDRO L) injection 125 mg 06-24 17:00: 00 06-24 11:35 :44 No 125mg 125 mg, Intramuscu lar, Q6H, First dose on Sun06/24/23 at 1200, Until Discontinu ed, Routine [facility] gabapentin 300 mg capsule 06-24 00:00: 00 11-12 00:00 :00 No [id number] 300mg Take 1 capsule by mouth in the morning and 1 capsule at noon and 1 capsule in the evening. [facility] codeine-gua ifenesin (ROBITUSSIN AC) 10-100 mg/5 mL oral solution 10 mL 06-18 06:15: 00 06-18 06:23 :00 No 10mL 10 mL, Oral, ONCE, 1 dose, On Sun06/18/23 at 0115, NICOLASA [facility] azithromyci n (ZITHROMAX) tablet 500 mg 06-18 06:15: 00 06-18 06:24 :00 No 500mg 500 mg, Oral, ONCE, 1 dose, On Sun06/18/23 at 0115, NICOLASA
Re ason for Anti-Infec tive: Documented Infection< br>Documen zoila Infection Site: Respirator y
Durat ion of Therapy: 7 days [facility] benzonatate 200 mg capsule 06-18 00:00: 00 11-12 00:00 :00 No [id number] 200mg Take 1 capsule by mouth 3 (three) times daily as needed for Cough. [facility] azithromyci n 250 mg tablet 06-18 00:00: 00 09-03 00:00 :00 No [id number] 250mg Take 1 tablet by mouth SEE-INSTRU CTIONS. Take 500 mg day 1, then 250 mg days 2 to 5. [facility] ondansetron 4 mg tablet 06-18 00:00: 00 09-03 00:00 :00 No [id number] 1 or 2 tablets every 8 hours as needed for nausea [facility] TAKE 1 TABLET BY MOUTH TWICE A DAY 06-14 00:00: 00 01-30 00:00 :00 No 500 Darryl Waggoner metroNIDAZO LE (FLAGYL) tablet 500 mg 06-12 08:45: 00 06-12 08:32 :00 No 500mg 500 mg, Oral, ONCE, 1 dose, On Sun06/12/23 at 0345, Routine
Reason for Anti-Infec tive: Empiric Therapy for Suspected Infection< br>Empiric Therapy Site: Pelvic
Duration of therapy: 72 hours [facility] doxycycline hyclate (Vibramycin ) capsule 100 mg 06-12 07:45: 00 06-12 08:32 :00 No 100mg 100 mg, Oral, ONCE, 1 dose, On Sun06/12/23 at 0245, NICOLASA
Re ason for Anti-Infec tive: Documented Infection< br>Documen zoila Infection Site: Pelvic
Duration of Therapy: 14 days [facility] morpHINE (4 mg/mL) injection 4 mg 06-12 07:45: 00 06-12 08:32 :00 No 4mg 4 mg, Slow IV Push, ONCE, 1 dose, On Sun06/12/23 at 0245, STAT [facility] ketorolac (TORADOL) injection 30 mg 06-12 06:15: 00 06-12 05:10 :00 No 30mg 30 mg, Slow IV Push, ONCE, 1 dose, [facility]06/12/23 [facility] 0115[facility] 0.9% (NS) bolus infusion 1,000 mL 06-12 06:15: 06-12 06:56 :00 No 1000mL at 999 mL/hr, 1,000 mL, IV Infusion, ONCE, 1 dose, On Sun06/12/23 at 0115, STAT [facility] cefTRIAXone (ROCEPHIN) 1,000 mg in NaCl 0.9% (NS) 100 mL MINI-BAG 06-12 05:15: 06-12 06:56 :00 No 1000mg 1,000 mg, IV Piggyback, ONCE, 1 dose, On Sun06/12/23 at 0015, Administer over 30 Minutes, 100 mL
Reas on for Anti-Infec tive: Empiric Therapy for Suspected Infection< br>Empiric Therapy Site: Pelvic
Duration of therapy: 72 hours [facility] ondansetron (ZOFRAN (PF)) injection 4 mg 06-12 05:15: 06-12 05:10 :00 No 4mg 4 mg, Slow IV Push, ONCE, 1 dose, On Sun06/12/23 at 0015, [facility] ibuprofen 800 mg tablet 06-12 00:00: 00 07-12 00:00 :00 No [id number] 800mg Take 1 tablet by mouth every 8 (eight) hours as needed for Pain (scale 4-6). [facility] TAKE 1 TABLET TWICE DAILY. 05-31 00:00: 00 01-30 00:00 :00 No 100 Darryl Waggoner iopamidol (ISOVUE 370-500 mL) injection 85 mL 05-28 08:30: 00 05-28 08:30 :00 No [id number] 85mL 85 mL, Intravenou s, ONCE, 1 dose, On Sun05/28/23 at 0330, Routine [facility] NaCl 0.9% (NS) bolus infusion 1,000 mL 05-28 08:15: 00 05-28 08:52 :00 No 1000mL at 999 mL/hr, 1,000 mL, IV Infusion, ONCE, 1 dose, On Sun05/28/23 at 0315, STAT [facility] pantoprazol e (PROTONIX) 80 mg in NaCl 0.9% (NS) 20 mL syringe 05-28 08:00: 00 05-28 08:02 :00 No 80mg 80 mg, IV Push, ONCE, 1 dose, On Sun05/28/23 at 0300, Administer over 2 Minutes, 20 mL [facility] ondansetron (ZOFRAN (PF)) injection 4 mg 05-28 06:45: 00 05-28 06:36 :00 No 4mg 4 mg, Slow IV Push, ONCE, 1 dose, On Sun05/28/23 at 0145, NICOLASA [facility] ondansetron 4 mg disintegrat ing tablet 05-28 00:00: 00 09-03 00:00 :00 No [id number] 4mg Take 1 tablet by mouth every 8 (eight) hours as needed for Nausea and Vomiting (N/V). [facility] esomeprazol e (NEXIUM) 40 mg capsule 05-28 00:00: 00 06-12 04:59 :00 No [id number] 40mg Take 1 capsule by mouth daily with breakfast for 14 days. [facility] INSTILL 4 DROPS IN THE AFFECTED EAR(S) TWICE DAILY 7-10 00:00: 00 01-30 00:00 :00 No 301 Darryl Waggoner dexamethaso ne (DECADRON PHOSPHATE) injection 10 mg 03-07 05:00: 00 03-07 03:56 :00 No 10mg 10 mg, Oral, ONCE, 1 dose, On Sun03/07/23 at 0000, Routine [facility] levocetiriz ine 5 mg tablet 03-06 00:00: 00 09-03 00:00 :00 No [id number] 5mg Take 1 tablet by mouth every evening. [facility] butorphanol (STADOL) injection 1 mg 02-02 08:00: 00 02-02 07:18 :00 No 1mg 1 mg, IV Push, ONCE, 1 dose, On Sun02/02/23 at 0300, NICOLASA [facility] ketorolac (TORADOL) injection 30 mg 02-02 07:45: 00 02-02 06:42 :00 No 30mg 30 mg, Slow IV Push, ONCE, 1 dose, On Sun02/02/23 at 0245, Routine [facility] metoclopram farzana HCl (REGLAN) injection 10 mg 02-02 06:45: 00 02-02 06:41 :00 No 10mg 10 mg, Slow IV Push, ONCE, 1 dose, On Sun02/02/23 at 0145, NICOLASA [facility] diphenhydrA MINE (BENADRYL) injection 25 mg 02-02 06:45: 00 02-02 06:43 :00 No 25mg 25 mg, Slow IV Push, ONCE, 1 dose, On Sun02/02/23 at 0145, STAT [facility] butalbital- acetaminoph en-caff 50-325-40 mg tablet 02-02 00:00: 00 11-12 00:00 :00 No [id number] 1{tbl} Take 1 tablet by mouth every 4 (four) hours as needed for Pain (scale 7-10). [facility] ondansetron (ZOFRAN) 4 mg tablet 02-02 00:00: 00 05-28 00:00 :00 No [id number] 4mg Take 1 tablet by mouth every 8 (eight) hours as needed for Nausea and Vomiting (N/V). [facility] iopamidol (ISOVUE 370-500 mL) injection 98 mL 1-10 21:00: 00 10-24 21:00 :00 No [id number] 98mL 98 mL, Intravenou s, ONCE, 1 dose, On Sun10/24/22 at 1500, Routine [facility] morpHINE (4 mg/mL) injection 4 mg 10-24 18:30: 00 10-24 19:03 :00 No 4mg 4 mg, Slow IV Push, ONCE, 1 dose, On Sun10/24/22 at 1230, STAT [facility] ondansetron (ZOFRAN (PF)) injection 4 mg 10-24 18:30: 00 10-24 19:01 :00 No 4mg 4 mg, Slow IV Push, ONCE, 1 dose, On Sun10/24/22 at 1230, NICOLASA [facility] NaCl 0.9% (NS) bolus infusion 1,000 mL 10-24 18:30: 00 10-24 21:40 :00 No 1000mL at 999 mL/hr, 1,000 mL, IV Infusion, ONCE, 1 dose, On Sun10/24/22 at 1230, STAT [facility] ondansetron 4 mg disintegrat ing tablet 10-24 00:00: 00 05-28 00:00 :00 No [id number] 4mg Take 1 tablet by mouth every 8 (eight) hours as needed for Nausea and Vomiting (N/V) for up to 10 doses. [facility] cephALEXin (KEFLEX) 500 mg capsule 10-24 00:00: 00 11-01 05:59 :00 No [id number] 500mg Take 1 capsule by mouth 4 (four) times daily for 7 days. [facility] ibuprofen 600 mg tablet 10-24 00:00: 00 10-30 05:59 :00 No [id number] 600mg Take 1 tablet by mouth every 8 (eight) hours as needed for Pain (scale 4-6) for up to 5 days. [facility] dicyclomine 20 mg tablet 10-24 00:00: 00 10-30 05:59 :00 No [id number] 20mg Take 1 tablet by mouth 3 (three) times daily as needed for Abdominal pain for up to 5 days. [facility] megestroL 40 mg tablet 2021-10 00:00: 00 11-12 00:00 :00 No [id number] 100 Take by mouth 2 tabs for first 7 days then 1 tablet by mouth daily for next 14 days. [facility] cephALEXin (KEFLEX) 500 mg capsule 2021-10 00:00: 00 07-29 04:59 :00 No [id number] 100 500mg Take 1 capsule by mouth in the morning and 1 capsule at noon and 1 capsule in the evening. Do all this for 7 days. [facility] iopamidol (ISOVUE 370-500 mL) injection 65 mL 05-19 21:30: 00 05-19 21:45 :00 No [id number] 65mL 65 mL, Intravenou s, ONCE, 1 dose, On Sun05/19/22 at 1645, Routine [facility] ondansetron (ZOFRAN (PF)) injection 4 mg 05-19 21:30: 00 05-19 20:51 :00 No 4mg 4 mg, Slow IV Push, ONCE, 1 dose, On Sun05/19/22 at 1630, NICOLASA [facility] ketorolac (TORADOL) injection 30 mg 05-19 21:30: 00 05-19 20:51 :00 No 30mg 30 mg, Slow IV Push, ONCE, 1 dose, On Sun05/19/22 at 1630, Routine [facility] NaCl 0.9% (NS) bolus infusion 1,000 mL 05-19 21:30: 00 05-19 22:08 :00 No 1000mL at 999 mL/hr, 1,000 mL, IV Infusion, ONCE, 1 dose, On Sun05/19/22 at 1630, NICOLASA [facility] tamsulosin 0.4 mg 24 hr capsule 05-19 00:00: 00 11-12 00:00 :00 No [id number] .4mg Take 1 capsule by mouth at bedtime. [facility] traMADoL 50 mg tablet 8-05 00:00: 00 05-27 04:59 :00 No [id number] 50mg Take 1 tablet by mouth every 6 (six) hours as needed for Pain (scale 4-6) for up to 7 days. Indication s: acute pain [facility] ketorolac (TORADOL) injection 30 mg 05-13 08:45: 00 05-13 07:40 :00 No 30mg 30 mg, Slow IV Push, ONCE, 1 dose, On 05/13/22 at 0345, Routine [facility] ketorolac 10 mg tablet 05-13 00:00: 00 11-12 00:00 :00 No [id number] 10mg Take 1 tablet by mouth every 6 (six) hours as needed for Pain (scale 7-10). [facility] butalbital- acetaminoph en-caff (ESGIC) 50-325-40 mg tablet 2 tablet 04-01 23:15: 00 04-01 22:22 :00 No 2{tbl} 2 tablet, Oral, ONCE NOW, 1 dose, On 04/01/22 at 1815, Routine [facility] ketorolac (TORADOL) injection 30 mg 04-01 23:15: 00 04-01 22:21 :00 No 30mg 30 mg, Intramuscu lar, ONCE, 1 dose, On 04/01/22 at 1815, NICOLASA [facility] No known medications 04-01 18:30: 37 No [facility] No known medications 10-25 13:51: 01 No [facility] cefdinir 300 mg capsule 10-25 00:00: 00 11-02 05:59 :00 No [id number] 300mg Take 1 capsule by mouth 2 (two) times daily for 7 days. [facility] Iron (ferrous sulfate) 325 mg [...] No known medications 6-25 21:44: 39 No [facility] amitriptyli ne 25 mg tablet 5-20 [...] 2020-12-15 00:00:00 Completed TDAP 2016-08-23 00:00:00 Completed [facility] Vital Signs Vital Name Observation Time Observation Value Comments S ource Body temperature 2025-05-08 13:05:00 36.33 Jennifer [facility] Systolic blood pressure 2025-04-14 16:28:36 130 mm[Hg] [facility] Diastolic blood pressure 2025-04-14 16:28:36 90 mm[Hg] [facility] Heart rate 2025-04-14 16:28:36 93 /min [facility] Body temperature 2025-04-14 16:28:36 37.78 Jennifer [facility] Respiratory rate 2025-04-14 16:28:36 16 /min [facility] Oxygen saturation in Arterial blood by Pulse oximetry 2025-04-14 16:28:36 100 /min [facility] Body height 2025-04-14 13:10:00 157.5 cm [facility] Body weight 2025-04-14 13:10:00 81.647 kg [facility] BMI 2025-04-14 13:10:00 32.92 kg/m2 [facility] Systolic blood pressure 2025-03-09 07:37:00 126 mm[Hg] [facility] Diastolic blood pressure 2025-03-09 07:37:00 85 mm[Hg] [facility] Heart rate 2025-03-09 07:37:00 95 /min [facility] Body temperature 2025-03-09 07:37:00 36.83 Jennifer [facility] Respiratory rate 2025-03-09 07:37:00 17 /min [facility] Oxygen saturation in Arterial blood by Pulse oximetry 2025-03-09 07:37:00 98 /min [facility] Body height 2025-03-09 02:30:00 157.5 cm [facility] Body weight 2025-03-09 02:30:00 81.647 kg [facility] BMI 2025-03-09 02:30:00 32.92 kg/m2 [facility] Systolic blood pressure 2025-02-04 19:15:00 126 mm[Hg] [facility] Diastolic blood pressure 2025-02-04 19:15:00 83 mm[Hg] [facility] Heart rate 2025-02-04 19:15:00 98 /min [facility] Body temperature 2025-02-04 19:15:00 36.5 Jennifer [facility] Respiratory rate 2025-02-04 19:15:00 20 /min [facility] Body height 2025-02-04 19:15:00 157.5 cm [facility] Body weight 2025-02-04 19:15:00 84.414 kg [facility] BMI 2025-02-04 19:15:00 34.04 kg/m2 [facility] Body temperature 2025-01-27 18:45:00 37 Jennifer [facility] Systolic blood pressure 2025-01-27 18:00:00 124 mm[Hg] [facility] Diastolic blood pressure 2025-01-27 18:00:00 91 mm[Hg] [facility] Heart rate 2025-01-27 18:00:00 89 /min [facility] Respiratory rate 2025-01-27 18:00:00 16 /min [facility] Oxygen saturation in Arterial blood by Pulse oximetry 2025-01-27 18:00:00 98 /min [facility] Body height 2025-01-27 17:26:00 157.5 cm [facility] Body weight 2025-01-27 17:26:00 79.379 kg [facility] BMI 2025-01-27 17:26:00 32.01 kg/m2 [facility] Systolic blood pressure 2025-01-17 09:03:00 115 mm[Hg] [facility] Diastolic blood pressure 2025-01-17 09:03:00 79 mm[Hg] [facility] Heart rate 2025-01-17 09:03:00 89 /min [facility] Body temperature 2025-01-17 09:03:00 36.89 Jennifer [facility] Respiratory rate 2025-01-17 09:03:00 16 /min [facility] Oxygen saturation in Arterial blood by Pulse oximetry 2025-01-17 09:03:00 100 /min [facility] Body height 2025-01-17 07:25:00 157.5 cm [facility] Body weight 2025-01-17 07:25:00 81.647 kg [facility] BMI 2025-01-17 07:25:00 32.92 kg/m2 [facility] Systolic blood pressure 2025-01-05 14:39:00 125 mm[Hg] [facility] Diastolic blood pressure 2025-01-05 14:39:00 84 mm[Hg] [facility] Heart rate 2025-01-05 14:39:00 99 /min [facility] Body temperature 2025-01-05 14:39:00 37.33 Jennifer [facility] Respiratory rate 2025-01-05 14:39:00 16 /min [facility] Oxygen saturation in Arterial blood by Pulse oximetry 2025-01-05 14:39:00 98 /min [facility] Body height 2025-01-05 10:11:00 157.5 cm [facility] Body weight 2025-01-05 10:11:00 83.462 kg [facility] BMI 2025-01-05 10:11:00 33.65 kg/m2 [facility] Systolic blood pressure 2024-12-18 07:00:00 101 mm[Hg] [facility] Diastolic blood pressure 2024-12-18 07:00:00 71 mm[Hg] [facility] Heart rate 2024-12-18 07:00:00 90 /min [facility] Respiratory rate 2024-12-18 07:00:00 16 /min [facility] Oxygen saturation in Arterial blood by Pulse oximetry 2024-12-18 07:00:00 97 /min [facility] Body temperature 2024-12-18 05:54:00 37.11 Jennifer [facility] Body height 2024-12-18 05:54:00 157.5 cm [facility] Body weight 2024-12-18 05:54:00 83.462 kg [facility] BMI 2024-12-18 05:54:00 33.65 kg/m2 [facility] Systolic blood pressure 2024-11-19 04:41:00 120 mm[Hg] [facility] Diastolic blood pressure 2024-11-19 04:41:00 93 mm[Hg] [facility] Heart rate 2024-11-19 04:41:00 78 /min [facility] Body temperature 2024-11-19 04:41:00 36.83 Jennifer [facility] Respiratory rate 2024-11-19 04:41:00 16 /min [facility] Oxygen saturation in Arterial blood by Pulse oximetry 2024-11-19 04:41:00 99 /min [facility] Body height 2024-11-19 03:00:00 157.5 cm [facility] Body weight 2024-11-19 03:00:00 86.183 kg [facility] BMI 2024-11-19 03:00:00 34.75 kg/m2 [facility] Systolic blood pressure 2024-11-09 04:37:00 130 mm[Hg] [facility] Diastolic blood pressure 2024-11-09 04:37:00 89 mm[Hg] [facility] Heart rate 2024-11-09 04:37:00 88 /min [facility] Body temperature 2024-11-09 04:37:00 37 Jennifer [facility] Respiratory rate 2024-11-09 04:37:00 19 /min [facility] Body height 2024-11-09 04:37:00 157.5 cm [facility] Body weight 2024-11-09 04:37:00 81.647 kg [facility] BMI 2024-11-09 04:37:00 32.92 kg/m2 [facility] Oxygen saturation in Arterial blood by Pulse oximetry 2024-11-09 04:37:00 100 /min [facility] Systolic blood pressure 2024-07-25 14:30:00 124 mm[Hg] [facility] Diastolic blood pressure 2024-07-25 14:30:00 83 mm[Hg] [facility] Heart rate 2024-07-25 14:30:00 88 /min [facility] Respiratory rate 2024-07-25 14:30:00 14 /min [facility] Oxygen saturation in Arterial blood by Pulse oximetry 2024-07-25 14:30:00 99 /min [facility] Body temperature 2024-07-25 12:49:00 37.22 Jennifer [facility] Body height 2024-07-25 12:49:00 157.5 cm [facility] Body weight 2024-07-25 12:49:00 86.637 kg [facility] BMI 2024-07-25 12:49:00 34.93 kg/m2 [facility] Systolic blood pressure 2024-07-04 10:38:00 117 mm[Hg] [facility] Diastolic blood pressure 2024-07-04 10:38:00 79 mm[Hg] [facility] Heart rate 2024-07-04 10:38:00 82 [facility] 2024-[facility]-04 10:38:00 36.89 Jennifer [facility] Respiratory rate 2024-07-04 10:38:00 14 /min [facility] Oxygen saturation in Arterial blood by Pulse oximetry 2024-07-04 10:38:00 100 /min [facility] Body height 2024-07-04 07:28:00 157.5 cm [facility] Body weight 2024-07-04 07:28:00 79.379 kg [facility] BMI 2024-07-04 07:28:00 32.01 kg/m2 [facility] Systolic blood pressure 2024-03-12 11:00:00 127 mm[Hg] [facility] Diastolic blood pressure 2024-03-12 11:00:00 94 mm[Hg] [facility] Heart rate 2024-03-12 11:00:00 84 /min [facility] Body temperature 2024-03-12 11:00:00 36.61 Jennifer [facility] Respiratory rate 2024-03-12 11:00:00 14 /min [facility] Oxygen saturation in Arterial blood by Pulse oximetry 2024-03-12 11:00:00 100 /min [facility] Body height 2024-03-12 07:04:00 157.5 cm [facility] Body weight 2024-03-12 07:04:00 87 kg [facility] BMI 2024-03-12 07:04:00 35.08 kg/m2 [facility] Systolic blood pressure 2024-02-03 12:00:00 121 mm[Hg] [facility] Diastolic blood pressure 2024-02-03 12:00:00 82 mm[Hg] [facility] Heart rate 2024-02-03 12:00:00 80 /min [facility] Respiratory rate 2024-02-03 12:00:00 17 /min [facility] Oxygen saturation in Arterial blood by Pulse oximetry 2024-02-03 12:00:00 100 /min [facility] Body temperature 2024-02-03 09:01:00 37.33 Jennifer [facility] Body height 2024-02-03 09:01:00 157.5 cm [facility] Body weight 2024-02-03 09:01:00 81.647 kg [facility] BMI 2024-02-03 09:01:00 32.92 kg/m2 [facility] Systolic blood pressure 2024-01-02 05:38:00 109 mm[Hg] [facility] Diastolic blood pressure 2024-01-02 05:38:00 91 mm[Hg] [facility] Heart rate 2024-01-02 05:38:00 93 /min [facility] Body temperature 2024-01-02 05:38:00 36.28 Jennifer [facility] Respiratory rate 2024-01-02 05:38:00 20 /min [facility] Oxygen saturation in Arterial blood by Pulse oximetry 2024-01-02 05:38:00 99 /min [facility] Body height 2024-01-02 03:25:00 157.5 cm [facility] Body weight 2024-01-02 03:25:00 81.647 kg [facility] BMI 2024-01-02 03:25:00 32.92 kg/m2 [facility] Systolic blood pressure 2023-12-26 08:51:00 115 mm[Hg] [facility] Diastolic blood pressure 2023-12-26 08:51:00 78 mm[Hg] [facility] Heart rate 2023-12-26 08:51:00 98 /min [facility] Body temperature 2023-12-26 08:51:00 37.5 Jennifer [facility] Respiratory rate 2023-12-26 08:51:00 12 /min [facility] Body height 2023-12-26 08:51:00 157.5 cm [facility] Body weight 2023-12-26 08:51:00 85.322 kg [facility] BMI 2023-12-26 08:51:00 34.40 kg/m2 [facility] Oxygen saturation in Arterial blood by Pulse oximetry 2023-12-26 08:51:00 100 /min [facility] Systolic blood pressure 2023-11-20 16:29:00 120 mm[Hg] [facility] Diastolic blood pressure 2023-11-20 16:29:00 89 mm[Hg] [facility] Heart rate 2023-11-20 16:29:00 85 /min [facility] Respiratory rate 2023-11-20 16:29:00 16 /min [facility] Oxygen saturation in Arterial blood by Pulse oximetry 2023-11-20 16:29:00 97 /min [facility] Body temperature 2023-11-20 12:44:00 37.11 Jennifer [facility] Body height 2023-11-20 12:44:00 157.5 cm [facility] Body weight 2023-11-20 12:44:00 82.101 kg [facility] BMI 2023-11-20 12:44:00 33.11 kg/m2 [facility] Systolic blood pressure 2023-11-12 06:09:00 135 mm[Hg] [facility] Diastolic blood pressure 2023-11-12 06:09:00 86 mm[Hg] [facility] Heart rate 2023-11-12 06:09:00 89 /min [facility] Body temperature 2023-11-12 06:09:00 37.28 Jennifer [facility] Respiratory rate 2023-11-12 06:09:00 16 /min [facility] Body height 2023-11-12 06:09:00 157.5 cm [facility] Body weight 2023-11-12 06:09:00 83.553 kg [facility] BMI 2023-11-12 06:09:00 33.69 kg/m2 [facility] Oxygen saturation in Arterial blood by Pulse oximetry 2023-11-12 06:09:00 100 /min [facility] Systolic blood pressure 2023-10-28 02:30:00 121 mm[Hg] [facility] Diastolic blood pressure 2023-10-28 02:30:00 80 mm[Hg] [facility] Heart rate 2023-10-28 02:30:00 124 /min [facility] Body temperature 2023-10-28 02:30:00 38 Jennifer [facility] Respiratory rate 2023-10-28 02:30:00 20 /min [facility] Body weight 2023-10-28 02:30:00 86.183 kg [facility] BMI 2023-10-28 02:30:00 34.75 kg/m2 [facility] Oxygen saturation in Arterial blood by Pulse oximetry 2023-10-28 02:30:00 96 /min [facility] Systolic blood pressure 2023-09-09 02:47:12 116 mm[Hg] [facility] Diastolic blood pressure 2023-09-09 02:47:12 85 mm[Hg] [facility] Heart rate 2023-09-09 02:47:12 78 /min [facility] Body temperature 2023-09-09 02:47:12 36.28 Jennifer [facility] Respiratory rate 2023-09-09 02:47:12 18 /min [facility] Oxygen saturation in Arterial blood by Pulse oximetry 2023-09-09 02:47:12 98 /min [facility] Body height 2023-09-09 00:30:00 157.5 cm [facility] Body weight 2023-09-09 00:30:00 85.276 kg [facility] BMI 2023-09-09 00:30:00 34.39 kg/m2 [facility] Systolic blood pressure 2023-09-07 12:45:00 119 mm[Hg] [facility] Diastolic blood pressure 2023-09-07 12:45:00 83 mm[Hg] [facility] Heart rate 2023-09-07 12:45:00 101 /min [facility] Body temperature 2023-09-07 12:45:00 37.5 Jennifer [facility] Respiratory rate 2023-09-07 12:45:00 18 /min [facility] Body height 2023-09-07 12:45:00 157.5 cm [facility] Body weight 2023-09-07 12:45:00 82.872 kg [facility] Formerly [facility] BMI 2023-09-07 12:45:00 33.42 kg/m2 [facility] Oxygen saturation in Arterial blood by Pulse oximetry 2023-09-07 12:45:00 99 /min [facility] Systolic blood pressure 2023-09-04 04:00:00 112 mm[Hg] [facility] Diastolic blood pressure 2023-09-04 04:00:00 97 mm[Hg] [facility] Heart rate 2023-09-04 04:00:00 94 /min [facility] Body temperature 2023-09-04 04:00:00 36.89 Jennifer [facility] Oxygen saturation in Arterial blood by Pulse oximetry 2023-09-04 04:00:00 98 /min [facility] Respiratory rate 2023-09-04 03:00:00 17 /min [facility] Body height 2023-09-04 00:54:00 157.5 cm [facility] Body weight 2023-09-04 00:54:00 83.915 kg [facility] BMI 2023-09-04 00:54:00 33.84 kg/m2 [facility] Systolic blood pressure 2023-08-04 04:05:00 139 mm[Hg] [facility] Diastolic blood pressure 2023-08-04 04:05:00 77 mm[Hg] [facility] Heart rate 2023-08-04 04:05:00 104 /min [facility] Body temperature 2023-08-04 04:05:00 36.72 Jennifer [facility] Respiratory rate 2023-08-04 04:05:00 16 /min [facility] Body height 2023-08-04 04:05:00 157.5 cm [facility] Body weight 2023-08-04 04:05:00 85.957 kg [facility] BMI 2023-08-04 04:05:00 34.66 kg/m2 [facility] Oxygen saturation in Arterial blood by Pulse oximetry 2023-08-04 04:05:00 100 /min [facility] Systolic blood pressure 2023-07-26 07:38:00 134 mm[Hg] [facility] Diastolic blood pressure 2023-07-26 07:38:00 95 mm[Hg] [facility] Heart rate 2023-07-26 07:38:00 114 /min [facility] Body temperature 2023-07-26 07:38:00 37.28 Jennifer [facility] Respiratory rate 2023-07-26 07:38:00 18 /min [facility] Body height 2023-07-26 07:38:00 157.5 cm [facility] Body weight 2023-07-26 07:38:00 86.183 kg [facility] BMI 2023-07-26 07:38:00 34.75 kg/m2 [facility] Oxygen saturation in Arterial blood by Pulse oximetry 2023-07-26 07:38:00 99 /min [facility] Systolic blood pressure 2023-07-25 14:52:00 126 mm[Hg] [facility] Diastolic blood pressure 2023-07-25 14:52:00 96 mm[Hg] [facility] Heart rate 2023-07-25 14:52:00 98 /min [facility] Body temperature 2023-07-25 14:52:00 37 Jennifer [facility] Respiratory rate 2023-07-25 14:52:00 16 /min [facility] Oxygen saturation in Arterial blood by Pulse oximetry 2023-07-25 14:52:00 98 /min [facility] Body height 2023-07-25 12:33:00 157.5 cm [facility] Body weight 2023-07-25 12:33:00 86.456 kg [facility] BMI 2023-07-25 12:33:00 34.86 kg/m2 [facility] Systolic blood pressure 2023-07-12 12:34:00 127 mm[Hg] [facility] Diastolic blood pressure 2023-07-12 12:34:00 86 mm[Hg] [facility] Heart rate 2023-07-12 12:34:00 86 /min [facility] Body temperature 2023-07-12 12:34:00 36.72 Jennifer [facility] Respiratory rate 2023-07-12 12:34:00 16 /min [facility] Body height 2023-07-12 12:34:00 [facility] 2023-07-12 12:34:00 86.183 kg [facility] BMI 2023-07-12 12:34:00 34.75 kg/m2 [facility] Oxygen saturation in Arterial blood by Pulse oximetry 2023-07-12 12:34:00 98 /min [facility] Systolic blood pressure 2023-06-24 10:24:00 118 mm[Hg] [facility] Diastolic blood pressure 2023-06-24 10:24:00 89 mm[Hg] [facility] Heart rate 2023-06-24 10:24:00 95 /min [facility] Body temperature 2023-06-24 10:24:00 36.78 Jennifer [facility] Respiratory rate 2023-06-24 10:24:00 18 /min [facility] Body height 2023-06-24 10:24:00 157.5 cm [facility] Body weight 2023-06-24 10:24:00 89.812 kg [facility] BMI 2023-06-24 10:24:00 36.21 kg/m2 [facility] Oxygen saturation in Arterial blood by Pulse oximetry 2023-06-24 10:24:00 100 /min [facility] Systolic blood pressure 2023-06-18 04:52:00 113 mm[Hg] [facility] Diastolic blood pressure 2023-06-18 04:52:00 82 mm[Hg] [facility] Heart rate 2023-06-18 04:52:00 100 /min [facility] Body temperature 2023-06-18 04:52:00 37.39 Jennifer [facility] Respiratory rate 2023-06-18 04:52:00 18 /min [facility] Body height 2023-06-18 04:52:00 157.5 cm [facility] Body weight 2023-06-18 04:52:00 89.903 kg [facility] BMI 2023-06-18 04:52:00 36.25 kg/m2 [facility] Oxygen saturation in Arterial blood by Pulse oximetry 2023-06-18 04:52:00 100 /min [facility] Systolic blood pressure 2023-06-12 09:00:00 105 mm[Hg] [facility] Diastolic blood pressure 2023-06-12 09:00:00 74 mm[Hg] [facility] Heart rate 2023-06-12 09:00:00 74 /min [facility] Respiratory rate 2023-06-12 09:00:00 16 /min [facility] Oxygen saturation in Arterial blood by Pulse oximetry 2023-06-12 09:00:00 97 /min [facility] Body temperature 2023-06-12 04:09:00 36.89 Jennifer [facility] Body height 2023-06-12 04:09:00 157.5 cm [facility] Body weight 2023-06-12 04:09:00 86.183 kg [facility] BMI 2023-06-12 04:09:00 34.75 kg/m2 [facility] Systolic blood pressure 2023-05-28 08:00:00 123 mm[Hg] [facility] Diastolic blood pressure 2023-05-28 08:00:00 78 mm[Hg] [facility] Heart rate 2023-05-28 08:00:00 93 [facility]terial blood by Pulse oximetry 2023-05-28 08:00:00 99 /min [facility] Respiratory rate 2023-05-28 06:00:00 18 /min [facility] Body temperature 2023-05-28 05:37:00 35.72 Jennifer [facility] Body height 2023-05-28 05:37:00 157.5 cm [facility] Body weight 2023-05-28 05:37:00 87.136 kg [facility] BMI 2023-05-28 05:37:00 35.14 kg/m2 [facility] Systolic blood pressure 2023-03-07 03:59:00 122 mm[Hg] [facility] Diastolic blood pressure 2023-03-07 03:59:00 77 mm[Hg] [facility] Heart rate 2023-03-07 03:59:00 97 /min [facility] Body temperature 2023-03-07 03:59:00 36.67 Jennifer [facility] Respiratory rate 2023-03-07 03:59:00 18 /min [facility] Body height 2023-03-07 03:59:00 157.5 cm [facility] Body weight 2023-03-07 03:59:00 79.379 kg [facility] BMI 2023-03-07 03:59:00 32.01 kg/m2 [facility] Oxygen saturation in Arterial blood by Pulse oximetry 2023-03-07 03:59:00 99 /min [facility] Heart rate 2023-02-02 07:48:00 73 /min [facility] Oxygen saturation in Arterial blood by Pulse oximetry 2023-02-02 07:48:00 98 /min [facility] Systolic blood pressure 2023-02-02 07:00:00 122 mm[Hg] [facility] Diastolic blood pressure 2023-02-02 07:00:00 79 mm[Hg] [facility] Respiratory rate 2023-02-02 07:00:00 15 /min [facility] Body temperature 2023-02-02 06:07:00 36.94 Jennifer [facility] Body height 2023-02-02 06:07:00 157.5 cm [facility] Body weight 2023-02-02 06:07:00 79.379 kg [facility] BMI 2023-02-02 06:07:00 32.01 kg/m2 [facility] Systolic blood pressure 2022-10-24 21:42:00 114 mm[Hg] [facility] Diastolic blood pressure 2022-10-24 21:42:00 74 mm[Hg] [facility] Heart rate 2022-10-24 21:42:00 72 /min [facility] Respiratory rate 2022-10-24 21:42:00 16 /min [facility] Oxygen saturation in Arterial blood by Pulse oximetry 2022-10-24 21:42:00 99 /min [facility] Body temperature 2022-10-24 18:03:00 37.33 Jennifer [facility] Body height 2022-10-24 18:03:00 157.5 cm [facility] Body weight 2022-10-24 18:03:00 79.379 kg [facility] BMI 2022-10-24 18:03:00 32.01 kg/m2 [facility] Systolic blood pressure 2022-07-21 12:46:00 115 mm[Hg] [facility] Diastolic blood pressure 2022-07-21 12:46:00 83 mm[Hg] [facility] Heart rate 2022-07-21 12:46:00 82 /min [facility] Body temperature 2022-07-21 12:46:00 36.89 Jennifer [facility] Respiratory rate 2022-07-21 12:46:00 18 /min [facility] Body weight 2022-07-21 12:46:00 78.019 kg [facility] BMI 2022-07-21 12:46:00 31.46 kg/m2 [facility] Oxygen saturation in Arterial blood by Pulse oximetry 2022-07-21 12:46:00 99 /min [facility] Systolic blood pressure 2022-05-19 22:00:00 128 mm[Hg] [facility] Diastolic blood pressure 2022-05-19 22:00:00 68 mm[Hg] [facility] Heart rate 2022-05-19 22:00:00 78 /min [facility] Body temperature 2022-05-19 22:00:00 36.78 Jennifer [facility] Respiratory rate 2022-05-19 22:00:00 18 /min [facility] Oxygen saturation in Arterial blood by Pulse oximetry 2022-05-19 22:00:00 100 /min [facility] Body height 2022-05-19 20:31:00 157.5 cm [facility] Body weight 2022-05-19 20:31:00 78.019 kg [facility] BMI 2022-05-19 20:31:00 31.46 kg/m2 [facility] Heart rate 2022-05-13 08:30:00 83 /min [facility] Oxygen saturation in Arterial blood by Pulse oximetry 2022-05-13 08:30:00 99 /min [facility] Systolic blood pressure 2022-05-13 08:00:00 111 mm[Hg] [facility] Diastolic blood pressure 2022-05-13 08:00:00 80 mm[Hg] [facility] Body temperature 2022-05-13 07:05:00 37 Jennifer [facility] Respiratory rate 2022-05-13 07:05:00 18 /min [facility] Body height 2022-05-13 07:05:00 157.5 cm [facility] Body weight 2022-05-13 07:05:00 76.658 kg [facility] BMI 2022-05-13 07:05:00 30.91 kg/m2 [facility] Systolic blood pressure 2022-04-01 21:47:00 124 mm[Hg] [facility] Diastolic blood pressure 2022-04-01 21:47:00 84 mm[Hg] [facility] Heart rate 2022-04-01 21:47:00 89 /[facility] 2022-04-01 21:47:00 37.22 Jennifer [facility] Respiratory rate 2022-04-01 21:47:00 22 /min [facility] Body weight 2022-04-01 21:47:00 77.111 kg [facility] BMI 2022-04-01 21:47:00 29.18 kg/m2 [facility] Oxygen saturation in Arterial blood by Pulse oximetry 2022-04-01 21:47:00 99 /min [facility] Systolic blood pressure 2021-10-25 19:42:00 103 mm[Hg] [facility] Diastolic blood pressure 2021-10-25 19:42:00 74 mm[Hg] [facility] Heart rate 2021-10-25 19:42:00 94 /min [facility] Body [facility] 2021-10-25 19:42:00 37.67 Jennifer [facility] Respiratory rate 2021-10-25 19:42:00 18 /min [facility] Body weight 2021-10-25 19:42:00 70.761 kg [facility] BMI 2021-10-25 19:42:00 26.78 kg/m2 [facility] Oxygen saturation in Arterial blood by Pulse oximetry 2021-10-25 19:42:00 99 /min [facility] BP Systolic 2024-12-19 08:33:00 128 mm[Hg] Step hen F Edilson BP Diastolic 2024-12-19 08:33:00 74 mm[Hg] Osito phen F Edilson Weight Measured 2024-12-19 08:33:00 184.20 pounds Darryl F Edilson Height Measured 2024-12-19 08:33:00 63.00 inches Darryl F Oneill Body Temperature 2024-12-19 08:33:00 98.10 degrees Darryl [...] Edilson Weight Measured 2024-08-25 14:45:00 192.80 pounds Darrly F Edilson Height Measured 2024-08-25 14:45:00 63.00 [...] Edilson Body Temperature 2023-06-26 13:23:00 98.20 degrees Draryl F Edilson Heart Rate 2023-06-26 13:23:00 126.00 [...] 9V) VACCINE 2025-05-08 13:05:30 Viry De Anda [facility] CT ABDOMEN PELVIS W CONTRAST 2025-04-14 14:52:00 Hermilo Ricks [facility] URINALYSIS 2025-04-14 14:33:00 Hermilo [facility]icks [facility] LIPASE 2025-04-14 13:43:00 Hermilo Ricks [facility] COMP. METABOLIC PANEL ([id number]) 2025-04-14 13:43:00 Hermilo Ricks [facility] CBC WITH DIFF 2025-04-14 13:43:00 Hermilo Ricks [facility] US OVARY TORSION 2025-03-09 05:02:45 Doni Marie [facility] POCT TEST 2025-03-09 03:04:00 Ryan Marie [facility] LIPASE 2025-03-09 03:03:00 Doni [facility] COMP. METABOLIC PANEL ([id number]) 2025-03-09 03:03:00 Doni Marie [facility] CBC WITH DIFF 2025-03-09 03:03:00 Doni Marie [facility] URINALYSIS 2025-03-09 03:03:00 Doni Marie [facility] GARDASIL 9 (HPV 9V) VACCINE 2025-02-04 19:21:47 Carolyn Miller [facility] POCT TEST 2025-02-04 00:00:00 Kaye House [facility] POCT GLUCOSE(AGE >30DAYS) 2025-01-27 18:48:00 [facility] 2025-01-27 18:45:00 [facility]AST 2025-01-17 08:40:02 Selene Parra [facility] POCT TEST 2025-01-17 07:32:00 Selene Parra [facility] LIPASE 2025-01-17 07:29:00 Selene Parra [facility] COMP. METABOLIC PANEL ([id number]) 2025-01-17 07:29:00 Selene Parra [facility] CBC WITH DIFF 2025-01-17 07:29:00 Selene Parra [facility] URINALYSIS 2025-01-17 07:29:00 Selene Parra [facility] CT ABDOMEN PELVIS W CONTRAST 2025-01-05 12:26:37 Singer [facility] POCT TEST 2025-01-05 11:58:00 Jeanine iRcks [facility] URINALYSIS 2025-01-05 10:42:00 Singer [facility] XR CHEST 1 VW 2025-01-05 10:39:55 Singer [facility] COMP. METABOLIC PANEL ([id number]) 2025-01-05 10:16:00 Singer [facility] CBC WITH DIFF 2025-01-05 10:16:00 Ricks [facility] INFLUENZA A/B RSV COVID NAAT 2025-01-05 10:16:00 Singer [facility] [id number] Colposcopy Entire Vagina W/cervix If Present 2024-12-19 00:00:00 Darryl Waggoner POCT TEST 2024-12-18 06:15:00 Martha Terry [facility] COMP. METABOLIC PANEL ([id number]) 2024-12-18 06:13:00 Gaby Terry [facility] CBC WITH DIFF 2024-12-18 06:13:00 Gaby Terry [facility] URINALYSIS 2024-12-18 06:13:00 Gaby Terry [facility] XR ABDOMEN ACUTE SERIES 2024-07-25 14:37:21 Do jasmina Marie [facility] POCT TEST 2024-07-25 13:23:00 Ryan Marie [facility] LIPASE 2024-07-25 13:21:00 Doni Marie [facility] COMP. METABOLIC PANEL ([id number]) 2024-07-25 13:21:00 Marie, [facility] CBC WITH DIFF 2024-07-25 13:[facility] 13:21:00 Boelus [facility] URINE DRUG (IMMUNOASSAY) - COMPREHENSIVE DRUG SCREEN W/O REFLEX 2024-07-25 13:21:00 Frank [facility] [address] ABDOMEN PELVIS W CONTRAST 2024-07-04 08:54:02 Selene Parra [facility] POCT TEST 2024-07-04 07:36:00 Selene Parra [facility] LIPASE 2024-07-04 07:33:00 [facility] METABOLIC PANEL ([id number]) 2024-07-04 07:33:00 Selene Parra [facility] CBC WITH DIFF 2024-07-04 07:33:00 Selene Parra [facility] URINALYSIS 2024-07-04 07:33:00 Selene Parra [facility] CT ABDOMEN PELVIS W CONTRAST 2024-03-12 09:15:57 Selene Parra [facility] LIPASE 2024-03-12 09:01:00 Selene Parra [facility] COMP. METABOLIC PANEL ([id number]) 2024-03-12 09:01:00 Selene Parra [facility] CBC WITH DIFF 2024-03-12 09:01:00 Selene Parra [facility] EBV-MONONUCLEOSIS SCREEN 2024-02-03 10:22:00 Funmilayo Parra [facility] CT ABDOMEN PELVIS W CONTRAST 2024-02-03 10:08:28 Selene Parra [facility] POCT TEST 2024-02-03 09:09:00 Selene Parra [facility] LIPASE 2024-02-03 09:06:00 Selene Parra [facility] COMP. METABOLIC PANEL ([id number]) 2024-02-03 09:06:00 Selene Parra [facility] CBC WITH DIFF 2024-02-03 09:06:00 Selene Parra [facility] URINALYSIS 2024-02-03 09:06:00 Selene Parra [facility] RAPID STREP SCREEN FOR GROUP A 2024-02-03 09:06:00 Selene Parra [facility] ASSIGNMENT OF BENEFITS 2024-01-02 04:22:29 Docto r Unassigned, Skene [facility] RAPID STREP SCREEN FOR GROUP A 2024-01-02 04:20:00 Doni Marie [facility] RAPID INFLUENZA A/B 2024-01-02 03:50:00 Ryan Marie [facility] COVID-19 (ID NOW RAPID TESTING) 2024-01-02 03:50:00 Doni Marie [facility] CONSENT/REFUSAL FOR DIAGNOSIS AND TREATMENT 2024-01-02 03:16:29 Doctor Unassigned, Skene [facility] CONSENT/REFUSAL FOR DIAGNOSIS AND TREATMENT 2023-12-26 08:43:59 Doctor Unassigned, Skene [facility] [id number] Colposcopy Cervix Endocervical Curettage 2023-12-17 00:00:00 Darryl Waggoner US OVARY TORSION 2023-11-20 16:01:25 Doni Marie [facility] CT ABDOMEN PELVIS W CONTRAST 2023-11-20 14:40:23 Doni Marie [facility] COMP. METABOLIC PANEL ([id number]) 2023-11-20 13:27:00 Doni Marie [facility] CBC WITH DIFF 2023-11-20 13:27:00 Doni Marie [facility] UR[facility]ALYSIS 2023-11-20 [facility]-20 13:26:00 Ryan Marie [facility] CONSENT/REFUSAL FOR DIAGNOSIS AND TREATMENT 2023-11-20 12:37:06 Doctor Unassigned, Skene [facility] CONSENT/REFUSAL FOR DIAGNOSIS AND TREATMENT 2023-11-12 06:04:20 Doctor Unassigned, Skene [facility] CONSENT/REFUSAL FOR DIAGNOSIS AND TREATMENT 2023-10-28 02:10:42 Doctor Unassigned, Skene [facility] URINALYSIS 2023-09-09 02:35:00 Danie Ontiveros [facility] XR KUB 2023-09-09 01:28:00 Danie Ontiveros U [facility] CT LUMBAR SPINE WO CONTRAST 2023-09-09 01:02:05 Danie Ontiveros [facility] CONSENT/REFUSAL FOR DIAGNOSIS AND TREATMENT 2023-09-09 00:05:52 Doctor Unassigned, Skene [facility] POCT TEST 2023-09-07 13:28:00 Juli Srivastava ra [facility] URINALYSIS 2023-09-07 13:27:00 Chayo [facility]rivastava [facility] CONSENT/REFUSAL FOR DIAGNOSIS AND TREATMENT 2023-09-07 12:42:21 Doctor Unassigned, Skene [facility] COMP. METABOLIC PANEL ([id number]) 2023-09-04 02:29:00 Selene Parra [facility] CBC WITH DIFF 2023-09-04 02:29:00 Selene Parra Uni [facility] RAPID INFLUENZA A/B 2023-09-04 02:26:00 Selene Parra [facility] COVID-19 (ID NOW RAPID TESTING) 2023-09-04 02:26:00 Selene Parra [facility] ASSIGNMENT OF BENEFITS 2023-09-04 02:07:25 Docto r Unassigned, Skene [facility] CONSENT/REFUSAL FOR DIAGNOSIS AND TREATMENT 2023-09-04 00:46:16 Doctor Unassigned, Skene [facility] CONSENT/REFUSAL FOR DIAGNOSIS AND TREATMENT 2023-08-04 03:55:32 Doctor Unassigned, Skene [facility] URINALYSIS 2023-07-26 08:52:00 Memo Resendiz [facility] URINALYSIS 2023-07-26 08:20:00 Memo Resendiz [facility] ASSIGNMENT OF BENEFITS 2023-07-26 08:05:43 Docto r Unassigned, Skene [facility] CONSENT/REFUSAL FOR DIAGNOSIS AND TREATMENT 2023-07-26 07:33:52 Doctor Unassigned, Skene [facility] RAPID STREP SCREEN FOR GROUP A 2023-07-25 13:40:00 Danii Arriaga [facility] RAPID INFLUENZA A/B 2023-07-25 13:40:00 Minal Arriaga [facility] COVID-19 (ID NOW RAPID TESTING) 2023-07-25 13:40:00 Danii Arriaga [facility] XR CHEST 2 VW 2023-07-25 13:26:06 Danii Arriaga [facility] ASSIGNMENT OF BENEFITS 2023-07-25 13:17:29 Docto r Unassigned, Skene [facility] CONSENT/REFUSAL FOR DIAGNOSIS AND TREATMENT 2023-07-25 12:29:51 Doctor Unassigned, Skene [facility] XR CHEST 2 VW 2023-07-12 13:13:00 Doni Marie [facility] POCT TEST 2023-07-12 12:56:00 Ryan Marie [facility] CONSENT/REFUSAL FOR DIAGNOSIS AND TREATMENT 2023-07-12 12:27:58 Doctor Unassigned, Skene [facility] [address] Colposcopy Cervix Uppr/adjcnt Vagina W/cervix Bx 2023-06-26 00:00:00 Darryl Waggoner 22173 Endometrial Bx W/wo Endocervix Bx W/o Dilat Spx 2023-06-26 00:00:00 Darryl Waggoner CONSENT/REFUSAL FOR DIAGNOSIS AND TREATMENT 2023-06-24 10:15:34 Doctor Unassigned, Skene [facility] RAPID INFLUENZA A/B 2023-06-18 05:03:00 Michelle Terry [facility] RAPID RSV 2023-06-18 05:03:00 Michelle Terry [facility] COVID-19 (ID NOW RAPID TESTING) 2023-06-18 05:03:00 Michelle Terry [facility] CONSENT/REFUSAL FOR DIAGNOSIS AND TREATMENT 2023-06-18 04:46:39 Doctor Unassigned, Skene [facility] US OVARY TORSION 2023-06-12 08:14:06 [facility] 2023-06-12 05:07:00 Raven Lieberman [facility] COMP. METABOLIC PANEL (30531) 2023-06-12 05:02:00 Raven Lieberman [facility] CBC WITH DIFF 2023-06-12 05:02:00 Raven [facility]berman [facility] URINALYSIS 2023-06-12 05:02:00 Raven Lieberman [facility] NOTICE OF PRIVACY PRACTICES 2023-06-12 04:10:01 Doctor Unassigned, Skene [facility] CONSENT/REFUSAL FOR DIAGNOSIS AND TREATMENT 2023-06-12 04:06:29 Doctor Unassigned, Skene [facility] CT ABDOMEN PELVIS W CONTRAST 2023-05-28 07:44:47 Raven Lieberman [facility] POCT TEST 2023-05-28 06:40:00 Raven Lieberman [facility] COMP. METABOLIC PANEL (82589) 2023-05-28 06:34:00 Raven Lieberman [facility] CBC WITH DIFF 2023-05-28 06:34:00 Raven Lieberman [facility] URINALYSIS 2023-05-28 06:34:00 Raven Lieberman [facility] CONSENT/REFUSAL FOR DIAGNOSIS AND TREATMENT 2023-05-28 05:25:17 Doctor Unassigned, Skene [facility] [address] Removal Impacted Cerumen Using Irrigation/lavage, Unilateral 2023-04-30 00:00:00 Darryl Waggoner ASSIGNMENT OF BENEFITS 2023-03-07 04:54:51 Docto r Unassigned, Skene [facility] RAPID STREP SCREEN FOR GROUP A 2023-03-07 03:52:00 Hermilo Ricks [facility] CONSENT/REFUSAL FOR DIAGNOSIS AND TREATMENT 2023-03-07 02:58:48 Doctor Unassigned, Skene [facility] BASIC METABOLIC PANEL (NA, K, CL, CO2, GLUCOSE, BUN, CREATININE, CA) 2023-02-02 06:41:00 Selene Parra [facility] CBC WITH DIFF 2023-02-02 06:41:00 Selene Parra [facility] POCT TEST 2023-02-02 06:17:00 Selene Parra [facility] NOTICE OF PRIVACY PRACTICES 2023-02-02 06:00:34 Doctor Unassigned, Skene [facility] CONSENT/REFUSAL FOR DIAGNOSIS AND TREATMENT 2023-02-02 05:59:54 Doctor Unassigned, Skene [facility] CT ABDOMEN PELVIS W CONTRAST 2022-10-24 20:00:18 Suraj Scott [facility] US OVARY TORSION 2022-10-24 19:43:53 Suraj Scott [facility] LIPASE 2022-10-24 18:58:00 Suraj Scott [facility] COMP. METABOLIC PANEL (55186) 2022-10-24 18:58:00 Suraj Scott [facility] CBC WITH DIFF 2022-10-24 18:58:00 [facility] 2022-10-24 18:58:00 Suraj Scott [facility] POCT TEST 2022-10-24 18:58:00 Odessa Scott [facility] CBC WITH DIFF 2022-07-21 13:07:00 Hermilo Ricks [facility] POCT TEST 2022-07-21 12:55:00 Jeanine Ricks [facility] URINALYSIS 2022-07-21 [facility]:52[facility] TREATMENT 2022-07-21 12:44:40 Doctor Unassigned, Skene [facility] CT ABDOMEN PELVIS W CONTRAST 2022-05-19 21:32:53 Cat Rutledge [facility] LIPASE 2022-05-19 20:49:00 Cat Rutledge [facility] COMP. METABOLIC PANEL (88550) 2022-05-19 20:49:00 Cat Rutledge [facility] CBC WITH DIFF 2022-05-19 20:49:00 Cat Rutledge [facility] URINALYSIS 2022-05-19 20:49:00 Cat Rutledge [facility] POCT TEST 2022-05-19 20:49:00 Paxton Rutledge [facility] URINE DRUG (IMMUNOASSAY) - COMPREHENSIVE DRUG SCREEN W/O REFLEX 2022-05-19 20:49:00 Cat Rutledge [facility] CONSENT/REFUSAL FOR DIAGNOSIS AND TREATMENT 2022-05-19 20:16:10 Doctor Unassigned, Skene [facility] POCT TEST 2022-05-13 07:37:00 Selene Parra [facility] LIPASE 2022-05-13 07:32:00 Selene Parra [facility] COMP. METABOLIC PANEL (86074) 2022-05-13 07:32:00 Selene Parra [facility] CBC WITH DIFF 2022-05-13 07:32:00 Selene Parra [facility] URINALYSIS 2022-05-13 07:32:00 Selene Parra [facility] CONSENT/REFUSAL FOR DIAGNOSIS AND TREATMENT 2022-05-13 06:55:55 Doctor Unassigned, Skene [facility] XR ANKLE <3 VW RIGHT 2022-04-01 22:28:50 Deny Rg [facility] URINALYSIS 2022-04-01 22:21:00 Christy Rg [facility] POCT TEST 2022-04-01 22:19:00 Christy Rg [facility] CONSENT/REFUSAL FOR DIAGNOSIS AND TREATMENT 2022-04-01 21:40:47 Doctor Unassigned, Skene [facility] POCT TEST 2021-10-25 19:54:00 Lisa Tran [facility] URINALYSIS 2021-10-25 19:53:00 Lisa Tran [facility] CONSENT/REFUSAL FOR DIAGNOSIS AND TREATMENT 2021-10-25 19:34:46 Doctor Unassigned, Skene [facility] NOTICE OF PRIVACY PRACTICES 2021-10-25 19:34:06 Doctor Unassigned, Skene [facility] Plan of Care Planned Activity Planned Date Details Comments Source Goal Plan of Care Note [code = 93464-1] Goal Plan of Care Note [code = 18326-6] Goal Plan of Care Note [code = 05589-9] Goal Plan of Care Note [code = 67802-0] Goal Plan of Care Note [code = 89601-5] Goal Plan of Care Note [code = 43702-2] Goal Plan of Care Note [code = 66103-6] Goal Plan of Care Note [code = 03491-7] Goal Plan of Care Note [code = 22472-1] Goal Plan of Care Note [code = 36818-5] Goal Plan of Care Note [code = 09066-4] Goal Plan of Care Note [code = 81404-9] Goal Plan of Care Note [code = 40992-7] Goal Plan of Care Note [code = 97192-7] Goal Plan of Care Note [code = 88246-6] Goal Plan of Care Note [code = 50987-5] Goal Plan of Care Note [code = 02272-8] Goal Plan of Care Note [code = 23425-7] Goal Plan of Care Note [code = 16589-0] Goal Plan of Care Note [code = 06999-6] Goal Plan of Care Note [code = 97470-9] Goal Plan of Care Note [code = 35653-4] Goal Plan of Care Note [code = 23965-9] Goal Plan of Care Note [code = 82128-3] Goal Plan of Care Note [code = 80064-6] Encounters Start Date/Time End Date/Time Encounter Type Admission Type Attending Clinicians Care Facility Care Department Encounter ID Source 2025-05-08 08:15:00 2025-05-08 08:15:00 Nurse Visit Nurse, Ang Rmchp Rgv Cprit Obgyn Lesa Felipe Nurse, Dat Rmchp Rgv Cprit Obgyn [facility] NEGATIVE [facility] MATERNAL & CHILD [facility] 1.2.840.114 350.1.13.10 4.2.7.2.686 [id number] [facility] 2025-04-14 08:10:00 2025-04-14 11:33:00 Emergency X HERMILO RICKS PHILLIP [facility] ERT [id number] [facility] 2025-03-08 21:35:00 2025-03-09 02:46:00 Emergency X DONI MARIE DONNELL [facility] ERT [id number] [facility] 2025-02-04 14:30:00 2025-02-04 16:26:04 Office Visit Pgy4 Kaye House Pgy4 [facility]) 1.840.114 350.1.13.10 4.2.7.2.686 [id number] [facility] 2025-01-27 12:28:00 2025-01-27 13:54:00 Emergency X PATRICE HOLLAND [facility] ERT [id number] [facility] 2025-01-27 12:28:00 2025-01-27 13:54:00 Emergency Patrice Holland [facility] 1.840.114 350.1.13.10 4.2.7.2.686 [id number] [facility] 2025-01-19 00:00:00 2025-01-21 08:15:33 Telephone Pgy4 Pgy4 [facility] ([facility]) 1.2840.114 350.1.13.10 4.2.7.2.686 [id number] [facility] 2025-01-17 02:31:00 2025-01-17 04:24:00 Emergency X SELENE PARRA WAKILI [facility] ERT [id number] [facility] 2025-01-17 02:31:00 2025-01-17 04:24:00 Emergency Selene Parra [facility] 1.2.840.114 350.1.13.10 4.2.7.2.686 [id number] [facility] 2025-01-13 00:00:00 2025-01-16 10:06:01 Telephone Pgy4 Pgy4 [facility] ([facility]) 1.2.840.114 350.1.13.10 4.2.7.2.686 [id number] [facility] 2025-01-05 05:08:00 2025-01-05 09:45:00 Emergency X DONI MARIE DONNELL [facility] ERT [id number] [facility] 2025-01-05 05:08:00 2025-01-05 09:45:00 Emergency Hermilo Ricks Donnell [facility] 1.2.840.114 350.1.13.10 4.2.7.2.686 [id number] [facility] 2024-12-19 08:24:26 2024-12-19 08:24:26 Outpatient SFA [facility] [id number] Darryl Tyron Edilson 2024-12-18 15:04:52 2024-12-18 15:04:52 Outpatient SFA [facility] [id number] Darryl Tyron Edilson 2024-12-17 23:56:00 2024-12-18 01:23:00 Emergency X GABY TERRY [facility] ERT [id number] [facility] 2024-12-17 23:56:00 2024-12-18 01:23:00 Emergency AdeGaby gray [facility] 1.2.840.114 350.1.13.10 4.2.7.2.686 [id number] [facility] 2024-12-18 00:00:00 2024-12-18 00:00:00 Outpatient Visit SFA [id number] Darryl Ackerman Edilson 2024-12-12 11:22:49 2024-12-12 11:22:49 Outpatient SFA [facility] [id number] aDrryl Ackerman Oneill 2024-11-28 09:13:53 2024-11-28 09:13:53 Outpatient SFA [facility] [id number] Darryl Ackerman Oneill 2024-11-28 00:00:00 2024-11-28 00:00:00 Outpatient Visit SFA [id number] Darryl Ackerman Oneill 2024-11-27 09:21:53 2024-11-27 09:21:53 Outpatient SFA [facility] [id number] Darryl Ackerman Edilson 2024-11-27 00:00:00 2024-11-27 00:00:00 Outpatient Visit SFA [id number] Darryl Ackerman Oneill 2024-11-18 21:05:00 2024-11-18 22:48:00 Emergency X SELENE PARRA WAKILI [facility] ERT [id number] [facility] 2024-11-18 21:05:00 2024-11-18 22:48:00 Emergency Selene Parra [facility] 1.2.840.114 350.1.13.10 4.2.7.2.686 [id number] [facility] 2024-11-08 22:41:00 2024-11-09 00:01:00 Emergency X CHRISTY RG PAMALA [facility] ERT [id number] [facility] 2024-11-08 22:41:00 2024-11-09 00:01:00 Emergency Christy Rg [facility] 1.2.840.114 350.1.13.10 4.2.7.2.686 [id number] [facility] 2024-10-22 09:57:20 2024-10-22 09:57:20 Outpatient SFA [facility] [id number] Darryl Ackerman Edilson 2024-10-22 00:00:00 2024-10-22 00:00:00 Outpatient Visit [facility] [id number] Darryl Ackerman Oneill 2024-08-25 14:31:29 2024-08-25 14:31:29 Outpatient SFA [facility] [id number] Darryl Ackerman Oneill 2024-08-25 00:00:00 2024-08-25 00:00:00 Outpatient Visit [facility] [id number] Darryl Ackerman Oneill 2024-07-25 07:55:00 2024-07-25 10:46:00 Emergency X DONI MARIE DONNELL [facility] ERT [id number] [facility] 2024-07-25 07:55:00 2024-07-25 10:46:00 Emergency Doni Marie [facility] 1.2.840.114 350.1.13.10 4.2.7.2.686 [id number] [facility] 2024-07-09 15:24:23 2024-07-09 15:24:23 Outpatient SFA [facility] [id number] Darryl Ackerman Oneill 2024-07-09 00:00:00 2024-07-09 00:00:00 Outpatient Visit [facility] [id number] Darryl Ackerman Oneill 2024-07-04 02:23:00 2024-07-04 06:07:00 Emergency X SELENE PARRA WAKILI [facility] ERT [id number] [facility] 2024-07-04 02:23:00 2024-07-04 06:07:00 Emergency Selene Parra [facility] 1.2.840.114 350.1.13.10 4.2.7.2.686 [id number] [facility] 2024-03-18 13:39:14 2024-03-18 13:39:14 Outpatient SFA [facility] [id number] Darryl Waggoner 2024-03-18 00:00:00 2024-03-18 00:00:00 Outpatient Visit [facility] [id number] Darryl Waggoner 2024-03-12 02:06:00 2024-03-12 06:07:00 Emergency X SELENE PARRA [facility] ERT [id number] [facility] 2024-03-12 02:06:00 2024-03-12 06:07:00 Emergency Selene Parra [facility] 1.2.840.114 350.1.13.10 4.2.7.2.686 [id number] [facility] 2024-03-06 11:34:36 2024-03-06 11:34:36 Outpatient SFA [facility] [id number] Darryl Waggoner 2024-03-06 00:00:00 2024-03-06 00:00:00 Outpatient Visit [facility] [id number] Darryl Waggoner 2024-02-03 03:57:00 2024-02-03 07:11:00 Emergency Selene Parra [facility] 1.2.840.114 350.1.13.10 4.2.7.2.686 [id number] [facility] 2024-01-01 22:28:00 2024-01-02 00:44:00 Emergency X DONI MARIE DONNELL [facility] ERT [id number] [facility] 2024-01-01 22:28:00 2024-01-02 00:44:00 Emergency Doni Marie [facility] 1.2.840.114 350.1.13.10 4.2.7.2.686 [id number] [facility] 2023-12-31 15:24:49 2023-12-31 15:24:49 Outpatient SFA [facility] [id number] Darryl Waggoner 2023-12-26 03:53:00 2023-12-26 05:24:00 Emergency X ANTONIETTABIJANDUSTY JAMESJOSE A [facility] ERT [id number] [facility] 2023-12-26 03:53:00 2023-12-26 05:24:00 Emergency Krysten Parraenrique Mcrae [facility] 1.2.840.114 350.1.13.10 4.2.7.2.686 [id number] [facility] 2023-12-17 08:09:17 2023-12-17 08:09:17 Outpatient SFA [facility] [id number] Darryl Waggoner 2023-11-20 06:45:00 2023-11-20 10:52:00 Emergency X DONI MARIE [facility] ERT [id number] [facility] 2023-11-20 06:45:00 2023-11-20 10:52:00 Emergency Doni Marie [facility] 1.2.840.114 350.1.13.10 4.2.7.2.686 [id number] [facility] 2023-11-14 13:08:33 2023-11-14 13:08:33 Outpatient SFA [facility] [id number] Darryl Waggoner 2023-11-12 00:13:00 2023-11-12 01:10:00 Emergency X CHAYO SRIVASTAVA [facility] ERT [id number] [facility] 2023-11-12 00:13:00 2023-11-12 01:10:00 Emergency Atif Chayo Perez [facility] 1.2.840.114 350.1.13.10 4.2.7.2.686 [id number] [facility] 2023-10-27 20:33:00 2023-10-27 20:58:00 Emergency X RUSTY Kavita [facility] ERT [id number] [facility] 2023-10-27 20:33:00 2023-10-27 20:58:00 Emergency RustyKavita Soledad [facility] 1.2.840.114 350.1.13.10 4.2.7.2.686 [id number] [facility] 2023-09-17 09:14:32 2023-09-17 09:14:32 Outpatient [facility] [id number] Darryl Waggoner 2023-09-08 18:32:00 2023-09-08 21:46:00 Emergency X CHRISTY RG [facility] ERT [id number] [facility] 2023-09-08 18:32:00 2023-09-08 21:46:00 Emergency Danie Ontiveros Pamala G [facility] 1.2.840.114 350.1.13.10 4.2.7.2.686 [id number] [facility] 2023-09-07 06:47:00 2023-09-07 08:22:00 Emergency X ATIFJULIRA [facility] ERT [id number] [facility] 2023-09-07 06:47:00 2023-09-07 08:22:00 Emergency Juli Srivastavara Perez [facility] 1.2.840.114 350.1.13.10 4.2.7.2.686 [id number] [facility] 2023-09-03 18:57:00 2023-09-03 22:03:00 Emergency X SELENE PARRA [facility] ERT [id number] [facility] 2023-09-03 18:57:00 2023-09-03 22:03:00 Emergency Selene Parra [facility] 1.2.840.114 350.1.13.10 4.2.7.2.686 [id number] [facility] 2023-08-28 16:44:07 2023-08-28 16:44:07 Outpatient [facility] [id number] Darryl Waggoner 2023-08-03 23:07:00 2023-08-04 01:08:00 Emergency X Kavita OJEDA [facility] ERT [id number] [facility] 2023-08-03 23:07:00 2023-08-04 01:08:00 Emergency Kavita Ojeda Soledad [facility] 1.2.840.114 350.1.13.10 4.2.7.2.686 [id number] [facility] 2023-07-26 02:41:00 2023-07-26 04:25:00 Emergency X MEMO RESENDIZ [facility] ERT [id number] [facility] 2023-07-26 02:41:00 2023-07-26 04:25:00 Emergency Memo Resendiz [facility] 1.2.840.114 350.1.13.10 4.2.7.2.686 [id number] [facility] 2023-07-25 07:36:00 2023-07-25 10:13:00 Emergency X DANII ARRIAGA [facility] ERT [id number] [facility] 2023-07-25 07:36:00 2023-07-25 10:13:00 Emergency Schoenstein Rose Roxanne [facility] 1.2.840.114 350.1.13.10 4.2.7.2.686 [id number] [facility] 2023-07-24 08:14:55 2023-07-24 08:14:55 Outpatient [facility] [id number] Darryl Waggoner 2023-07-12 07:35:00 2023-07-12 09:00:00 Emergency X DONI MARIE [facility] ERT [id number] [facility] 2023-07-12 07:35:00 2023-07-12 09:00:00 Emergency Doni Marie [facility] 1.2.840.114 350.1.13.10 4.2.7.2.686 [id number] [facility] 2023-07-02 13:54:28 2023-07-02 13:54:28 Outpatient [facility] [id number] Darryl Waggoner 2023-06-26 13:20:40 2023-06-26 13:20:40 Outpatient [facility] [id number] Darryl Wagogner 2023-06-24 05:33:00 2023-06-24 06:50:00 Emergency X SELENE PARRA [facility] ERT [id number] [facility] 2023-06-24 05:33:00 2023-06-24 06:50:00 Emergency Selene Parra [facility] 1.2.840.114 350.1.13.10 4.2.7.2.686 [id number] [facility] 2023-06-20 16:08:31 2023-06-20 16:08:31 Outpatient [facility] [id number] Darryl Waggoner 2023-06-17 23:54:00 2023-06-18 01:35:00 Emergency X MICHELLE TERRY [facility] ERT [id number] [facility] 2023-06-17 23:54:00 2023-06-18 01:35:00 Emergency Michelle Terry [facility] 1.2.840.114 350.1.13.10 4.2.7.2.686 [id number] [facility] 2023-06-16 10:56:55 2023-06-16 10:56:55 Outpatient [facility] [id number] Darryl Waggoner 2023-06-14 13:35:05 2023-06-14 13:35:05 Outpatient [facility] 31 Darryl Waggoner 2023-06-12 11:11:07 2023-06-12 11:11:07 Outpatient [facility] [id number] Darryl Waggoner 2023-06-11 23:25:00 2023-06-12 04:49:00 Emergency X LIEBERMAN RAVEN [facility] ERT [id number] [facility] 2023-06-11 23:25:00 2023-06-12 04:49:00 Emergency Luisana Raven [facility] 1.2.840.114 350.1.13.10 4.2.7.2.686 [id number] [facility] 2023-06-05 11:34:51 2023-06-05 11:34:51 Outpatient [facility] [id number] Darryl Waggoner 2023-05-28 08:05:43 2023-05-28 08:05:43 Outpatient [facility] 14 Darryl Ackerman Edilson 2023-05-28 00:40:00 2023-05-28 04:06:00 Emergency X RAVEN LIEBERMAN [facility] ERT [id number] [facility] 2023-05-28 00:40:00 2023-05-28 04:06:00 Emergency Raven Lieberman [facility] 1.2.840.114 350.1.13.10 4.2.7.2.686 [id number] [facility] 2023-05-28 00:00:00 2023-05-28 00:00:00 Orders Only Doctor Unassigned, Skene [facility] 1.2.840.114 350.1.13.10 4.2.7.2.686 [id number] [facility] 2023-04-30 13:49:49 2023-04-30 13:49:49 Outpatient [facility] [id number] Darryl Ackerman Oneill 2023-04-23 08:52:34 2023-04-23 08:52:34 Outpatient [facility] [id number] Darryl Ackerman Oneill 2023-03-06 22:52:00 2023-03-07 00:12:00 Emergency X HERMILO RICKS [facility] ERT [id number] [facility] 2023-03-06 22:52:00 2023-03-07 00:12:00 Emergency Hermilo [facility] 1.2.840.114 350.1.13.10 4.2.7.2.686 [id number] [facility] 2023-02-02 01:06:00 2023-02-02 02:49:00 Emergency X SELENE PARRA [facility] ERT [id number] [facility] 2023-02-02 01:06:00 2023-02-02 02:49:00 Emergency Selene Parra [facility] 1.2.840.114 350.1.13.10 4.2.7.2.686 [id number] [facility] 2023-02-02 00:00:00 2023-02-02 00:00:00 Orders Only Doctor Unassigned, Skene [facility] 1.2.840.114 350.1.13.10 4.2.7.2.686 [id number] [facility] 2022-10-24 12:04:00 2022-10-24 15:45:00 Emergency X SURAJ SCOTT [facility] ERT [id number] [facility] 2022-10-24 12:04:00 2022-10-24 15:45:00 Emergency Suraj Scott [facility] 1.2.840.114 350.1.13.10 4.2.7.2.686 [id number] [id number] [facility] [facility] 2022-09-25 10:04:19 2022-09-25 10:04:19 Outpatient SFA [facility] [id number] Darryl Waggoner 2022-09-25 00:00:00 2022-09-25 00:00:00 Outpatient Visit [id number] charlie-[id number] dnu347 2022-07-21 07:49:00 2022-07-21 08:56:00 Emergency HERMILO OLSEN [facility] ERT [id number] [facility] 2022-07-21 07:49:00 2022-07-21 08:56:00 Emergency Hermilo Ricks [facility] 1.2.840.114 350.1.13.10 4.2.7.2.686 [id number] [id number] [facility] 2022-05-19 15:38:00 2022-05-19 17:24:00 Emergency CAT SCOTT [facility] ERT [id number] [facility] 2022-05-19 15:38:00 2022-05-19 17:24:00 Emergency Cat Rutledge [facility] 1.2.840.114 350.1.13.10 4.2.7.2.686 [id number] [facility] 2022-05-19 00:00:00 2022-05-19 00:00:00 Outpatient Visit [id number] -[id number] cb00bc 2022-05-13 02:08:00 2022-05-13 04:24:00 Emergency Selene Parra [facility] 1.2.840.114 350.1.13.10 4.2.7.2.686 [id number] [facility] 2022-05-13 02:08:00 2022-05-13 04:24:00 Emergency X SELENE PARRA [facility] ERT [id number] [facility] 2022-04-01 16:48:00 2022-04-01 18:39:00 Emergency X CHRISTY RG [facility] ERT [id number] [facility] 2022-04-01 16:48:00 2022-04-01 18:39:00 Emergency Christy Rg [facility] 1.2.840.114 350.1.13.10 4.2.7.2.686 [id number] [id number] [facility] 2022-04-01 00:00:00 2022-04-01 00:00:00 Orders Only Doctor Unassigned, Skene [facility] 1.2.840.114 350.1.13.10 4.2.7.2.686 [id number] [facility] 2021-10-25 13:44:00 2021-10-25 15:25:00 Emergency X CRISTIAN TRANN [facility] ERT [id number] [facility] 2021-10-25 13:44:00 2021-10-25 15:25:00 Emergency Cristian Trann R [facility] 1.2.840.114 350.1.13.10 4.2.7.2.686 [id number] [id number] [facility] 2021-10-25 00:00:00 2021-10-25 00:00:00 Orders Only Doctor Unassigned, Skene [facility] 1.2.840.114 350.1.13.10 4.2.7.2.686 [id number] [facility] 2021-05-03 17:49:00 2021-05-04 02:46:00 Emergency [facility] [id number] [facility] 2021-04-16 21:16:42 2021-04-22 13:04:00 Inpatient CL [facility] [id number] [facility] 2021-04-08 17:04:00 2021-04-08 17:04:00 Emergency X ROCHELLE GOLD [facility] ERT [id number] [facility] 2021-04-08 02:42:00 2021-04-08 02:42:00 Emergency X LISA TRAN [facility] ERT [id number] [facility] 2021-03-24 18:36:00 2021-03-24 18:36:00 Emergency X [facility] ERT [id number] [facility] Results Test Description Test Time [...] Interpretation Comme nts LIPASE (test code = 7566690322) 62 U/L 0-220 Lab Interpretation (test cod e = 33739-8) Normal [facility] with [id number] 14:01:56* Test Item Value Reference Range Interpretation [...] g/dL 31.6-35.1 L RDW-SD (test code = 03769-4) 44.9 fL 39.0-49.9 RDW-CV (test code = 788-0) 16.6 % 12.0-15.5 H PLT (test code = 777-3) 327 166-358 MPV (test code = 70518-2) 9.7 fL 9.5-12.9 NRBC/100 WBC (test code = 4730070245) 0 0.0-10.0 NRBC x10^3 (test code = 8580330268) See_Comment [Automated messa ge] The system which generated this result transmitted reference range: 10*3/?L. The reference range was not used to interpret this result as normal/abnormal. GRAN MAT (NEUT) % (test code = 770-8) 56.4 % IMM GRAN % (test code = 4212405221) 0.2 % LYMPH % (test code = 736-9) 28.9 % MONO % (test code = 5905-5) 7.8 % EOS % (test code = 713-8) 6.2 % BASO % (test code = 706-2) 0.5 % GRAN MAT x10^3(ANC) (test code = 2827280662) 3.16 10*3/uL 1.88-7.09 IMM GRAN x10^3 (test code = 9376437268) 0.00-0.06 LYMPH x10^3 (test code = 731-0) 1.62 10*3/uL 1.32-3.29 MONO x10^3 (test code = 742-7) 0.44 10*3/uL 0.33-0.92 EOS x10^3 (test code = 711-2) 0.35 10*3/uL 0.03-0.39 BASO x10^3 (test code = 704-7) 0.03 10*3/uL 0.01-0.07 Lab Interpretation (test code = 40488-9) Abnormal [facility] O[facility] sruhoqf3331-57-80 05:13:32EXAM: US OVARY TORSION ORDERING PROVIDER: DONI MARIE HISTORY: 34 years-old Female; Provided indication: r/o ovarian torsion . LMP = 02/22/2025Pregnancy test = Negative. TECHNIQUE: Transabdominal and transvaginal ultrasound imaging and colorDoppler evaluation of the pelvis was performed. SpectralDoppler evaluationof the ovaries was performed. Brick Extruder Operator images were obtained for therecord. COMPARISON: Pelvic [...] A small volume of free fluid is present.[facility] [id number] 03:06:00* Test Item Value Reference Range Interpretation Comme nts POCT PREG (test code = 1605) Negative On board controls acceptable with C Line (test code = 3574) Yes POCT PREG LOT # (test code = 3575) [id number] POCT PREG TEST DATE ( test code = 3576) 2026-07-22 Lab Interpretation (test cod e = 87924-1) Normal [facility] Dlcs5997-41-04 19:16:00* Test Item Value Reference Range Interpretation Comme nts POCT PREG (test code = 1605) Negative On board controls acceptable with C Line (test code = 3574) Yes POCT PREG LOT # (test code = 3575) POCT PREG TEST DATE ( test code = 3576) Lab Interpretation (test cod e = 74128-7) Normal [facility] Glucose(Age >30days)2025-01-27 18:50:00* Test Item Value Reference Range Interpretation Comme nts POCT Glu (age>30days) (test code = 3342) 81 mg/dL 70-110 Lab Interpretation (test cod e = 54969-4) Normal [facility] GLUCOSE (AUTOMATED)2025-01-27 18:48:29* Test Item Value Reference Range Interpretation Comme nts POCT GLU (test code = 8648995883) 81 mg/dL 70-110 Lab Interpretation (test cod e = 76229-5) Normal [facility] Abdomen pelvis w agboncfx7269-17-17 08:59:03Examination: Computed tomography of the abdomen and [...] no suspicious lytic or blastic bony lesion. [facility] CampusComplete Metabolic Fasoj9186-32-86 07:59:26* Test Item Value Reference Range Interpretation Comme nts NA (test code = 2412371074) 136 mmol/L 135-145 K (test code = 9669703708) 3.7 mmol/L 3.5-5.0 CL (test code = 4899373972) 108 mmol/L 98-108 CO2 TOTAL (test code = 4388078363) 18 mmol/L 23-31 L AGAP (test code = 1142633786) 10 2-16 BUN (test code = 6271272411) 6 mg/dL 7-23 L GLUCOSE (test code = 6588352848) 100 mg/dL 70-110 CREATININE (test code = 2160-0) 0.76 mg/dL 0.50-1.04 TOTAL BILI (test code = 9343602750) 0.3 mg/dL 0.1-1.1 CALCIUM (test code = 4736664168) 9.2 mg/dL 8.6-10.6 T PROTEIN (test code = 5609212920) 8.0 g/dL 6.3-8.2 ALBUMIN (test code = 2872912063) 4.7 g/dL 3.5-5.0 ALK PHOS (test code = 4298380652) 88 U/L 34-122 ALTv (test code = 1742-6) 15 U/L 5-35 AST(SGOT) (test code = 1831004571) 19 U/L 13-40 eGFR (test code = 29627-3) 106.3 mL/min/1.73m2 CKD-EPI eGFR (2020). Assuming creatinine has been stable day-to-day for at least three months, the eGFR indicates Category G1 (>= 90 mL/min/1.73 m2) Lab Interpretation (test code = 55282-1) Abnormal [facility] CampusLipase, Xeokg6917-75-67 07:59:26* Test Item Value Reference Range Interpretation Comme nts LIPASE (test code = 8046876176) 206 U/L 0-220 Lab Interpretation (test cod e = 99820-9) Normal [facility] CampusCBC with Uemvhuembitf2397-52-19 07:47:02* Test Item Value Reference Range Interpretation [...] g/dL 31.6-35.1 L RDW-SD (test code = 14095-2) 41.8 fL 39.0-49.9 RDW-CV (test code = 788-0) 15.8 % 12.0-15.5 H PLT (test code = 777-3) 391 166-358 H MPV (test code = 88388-3) 10.1 fL 9.5-12.9 NRBC/100 WBC (test code = 7754078658) 0.0 0.0-10.0 NRBC x10^3 (test code = 0711658036) See_Comment [Automated messa ge] The system which generated this result transmitted reference range: 10*3/?L. The reference range was not used to interpret this result as normal/abnormal. GRAN MAT (NEUT) % (test code = 770-8) 43.1 % IMM GRAN % (test code = 4097403312) 0.10 % LYMPH % (test code = 736-9) 43.8 % MONO % (test code = 5905-5) 9.1 % EOS % (test code = 713-8) 3.3 % BASO % (test code = 706-2) 0.6 % GRAN MAT x10^3(ANC) (test code = 9539543849) 3.34 10*3/uL 1.88-7.09 IMM GRAN x10^3 (test code = 1623727147) 0.00-0.06 LYMPH x10^3 (test code = 731-0) 3.40 10*3/uL 1.32-3.29 H MONO x10^3 (test code = 742-7) 0.71 10*3/uL 0.33-0.92 EOS x10^3 (test code = 711-2) 0.26 10*3/uL 0.03-0.39 BASO x10^3 (test code = 704-7) 0.05 10*3/uL 0.01-0.07 Lab Interpretation (test code = 63615-5) Abnormal [facility] CampusPORI Rboe6757-62-95 07:32:00* Test Item Value Reference Range Interpretation Comme nts POCT PREG (test code = 1605) Negative On board controls acceptable with C Line (test code = 3574) Yes POCT PREG LOT # (test code = 3575) [id number] POCT PREG TEST DATE ( test code = 3576) Lab Interpretation (test cod e = 27399-4) [facility] Abdomen pelvis w jaubmugg7249-58-06 13:55:36EXAM: CT ABDOMEN PELVIS W CONTRAST 01/05/2025 [...] BONES AND SOFT TISSUES: No aggressive bone lesions.[facility] POCT [id number] 11:58:00* Test Item Value Reference Range Interpretation Comme nts POCT PREG (test code = 1605) Negative On board controls acceptable with C Line (test code = 3574) Yes POCT PREG LOT # (test code = 3575) 376024 POCT PREG TEST DATE ( test code = 3576) 5839397 Lab Interpretation (test cod e = 11190-4) Normal [facility] CampusComp. Metabolic Panel (83653)2025-01-05 10:57:03* Test Item Value Reference Range Interpretation Comme nts NA (test code = 1672502884) 137 mmol/L 135-145 K (test code = 7794431807) 3.7 mmol/L 3.5-5.0 CL (test code = 7598188428) 107 mmol/L 98-108 CO2 TOTAL (test code = 1672502098) 19 mmol/L 23-31 L AGAP (test code = 2405728151) 11 2-16 BUN (test code = 0063433497) 2 mg/dL 7-23 L GLUCOSE (test code = 4818005478) 114 mg/dL 70-110 H CREATININE (test code = 2160-0) 0.89 mg/dL 0.50-1.04 TOTAL BILI (test code = 4002189996) 0.3 mg/dL 0.1-1.1 CALCIUM (test code = 7198014982) 9.4 mg/dL 8.6-10.6 T PROTEIN (test code = 1786666053) 7.5 g/dL 6.3-8.2 ALBUMIN (test code = 2713226900) 4.3 g/dL 3.5-5.0 ALK PHOS (test code = 9662794476) 88 U/L 34-122 ALTv (test code = 1742-6) 21 U/L 5-35 AST(SGOT) (test code = 1699558699) 27 U/L 13-40 eGFR (test code = 48111-8) 87.9 mL/min/1.73m2 CKD-EPI eGFR (2020). Assuming creatinine has been stable day-to-day for at least three months, the eGFR indicates Category G2 (60 - 89 mL/min/1.73 m2) Lab Interpretation (test code = 61351-7) Abnormal [facility] CampusXR Chest 1 [id number] 10:54:58Study: Single view chest. Ordering Physician: RAFAEL RICKS Date: 01/05/2025 5:15 AM History:Shortness of breath, chest pain, tachycardia COMPARISON: None. Findings: Single frontal view chest demonstrates a normal heart size. Thelungs are clear without infiltrate, pleural effusion or pneumothorax.Noacute osseous abnormality is identified.[facility] CampusCb with Fyor3377-89-80 10:39:44 * Test Item Value Reference Range [...] g/dL 31.6-35.1 L RDW-SD (test code = 65082-5) 44.0 fL 39.0-49.9 RDW-CV (test code = 788-0) 16.2 % 12.0-15.5 H PLT (test code = 777-3) 400 166-358 H MPV (test code = 09506-0) 9.7 fL 9.5-12.9 NRBC/100 WBC (test code = 5595336180) 0.0 0.0-10.0 NRBC x10^3 (test code = 0110994821) See_Comment [Automated messa ge] The system which generated this result transmitted reference range: 10*3/?L. The reference range was not used to interpret this result as normal/abnormal. GRAN MAT (NEUT) % (test code = 770-8) 70.3 % IMM GRAN % (test code = 2312239583) 0.20 % LYMPH % (test code = 736-9) 16.6 % MONO % (test code = 5905-5) 8.0 % EOS % (test code = 713-8) 4.5 % BASO % (test code = 706-2) 0.4 % GRAN MAT x10^3(ANC) (test code = 8608204974) 5.79 10*3/uL 1.88-7.09 IMM GRAN x10^3 (test code = 7549049109) 0.00-0.06 LYMPH x10^3 (test code = 731-0) 1.37 10*3/uL 1.32-3.29 MONO x10^3 (test code = 742-7) 0.66 10*3/uL 0.33-0.92 EOS x10^3 (test code = 711-2) 0.37 10*3/uL 0.03-0.39 BASO x10^3 (test code = 704-7) 0.03 10*3/uL 0.01-0.07 Lab Interpretation (test code = 16030-1) Abnormal [facility]PO[facility] [id number] 06:15:00* Test Item Value Reference Range Interpretation Comme nts POCT PREG (test code = 1605) Negative On board controls acceptable with C Line (test code = 3574) Yes POCT PREG LOT # (test code = 3575) 829723 POCT PREG TEST DATE ( test code = 3576) 03/09/26 Lab Interpretation (test cod e = 04025-5) Normal [facility] CampusPAP TEST, THINPREP, IMAGED AND HPV HIGH RISK WITH ZENBLSTE0010-68-46 00:00:00* Test Item Value Reference Range Interpretation Comme nts SOURCE: (test code = 8001) Unspecified SLIDES: (test code = 8011) 1 LMP: (test code = 8021) NOT GIVEN SPECIMEN ADEQUACY: (test code = 11913) (NOTE) INTERPRETATION: (test code = 72177) NILM/NO EPITH. ABNORMALITY;SEE BELOW VP CUSTOMER DEVELOPMENT: (test code = 8101) SE [place],CT(ASCP)IAC QC TECHNOLOGIST: (test code = 8111) Samy MedranoCT(ASCP) LOCATION: (test code = 76804) (NOTE) CPT: (test code = 8140) 97557 HPV HIGH RISK INTERP (test code = 37754) POSITIVE HPV 16 (test code = 17914) NEGATIVE HPV 18 (test code = 02461) NEGATIVE HPV, HR, OTHER GENOTYPES (test code = 73603) POSITIVE PDFE (test code = PDFReport) PDF Darryl F AustinXR ABDOMEN ACUTE [id number] 14:50:35EXAM: XR ABDOMEN ACUTE SERIES COMPARISON: Abdominal [...] stones identified. No acute bony abnormality is present[facility] 2024-[facility]-25 13:23:00* Test Item Value Reference Range Interpretation Comme nts POCT PREG (test code = 1605) Negative On board controls acceptable with C Line (test code = 3574) Yes POCT PREG LOT # (test code = 3575) 636739 POCT PREG TEST DATE ( test code = 3576) 10/20/2025 Lab Interpretation (test cod e = 98164-2) Normal [facility] ABDOMEN PELVIS W [id number] 09:44:53Examination: Computed tomography of the abdomen and [...] bony lesion.[facility] CampusPOCT Flxn3970-71-93 07:36:00 * Test Item Value Reference Range Interpretation Comme [facility] POCT PREG (test code = 1605) Negative On board controls acceptable with C Line (test code = 3574) Yes POCT PREG LOT # (test code = 3575) 337186 POCT PREG TEST DATE ( test code = 3576) 07/24/2025 Lab Interpretation (test cod e = 14897-6) Normal [facility] ABDOMEN PELVIS W XTPEKQFV5625-79-33 10:12:02Examination: Computed tomography of the abdomen and [...] show no suspicious lytic or blastic bony lesion.[facility]. Metabolic Panel (12957)2024-03-12 09:27:38* Test Item Value Reference Range Interpretation Comme nts NA (test code = 6638014445) 137 mmol/L 135-145 K (test code = 7278489534) 3.8 mmol/L 3.5-5.0 CL (test code = 4080350376) 107 mmol/L 98-108 CO2 TOTAL (test code = 5207015140) 20 mmol/L 23-31 L AGAP (test code = 5828250490) 10 2-16 BUN (test code = 3957121617) 6 mg/dL 7-23 L GLUCOSE (test code = 7948722054) 94 mg/dL 70-110 CREATININE (test code = 2160-0) 0.83 mg/dL 0.50-1.04 TOTAL BILI (test code = 5267329009) 0.4 mg/dL 0.1-1.1 CALCIUM (test code = 0005097298) 9.2 mg/dL 8.6-10.6 T PROTEIN (test code = 3086902603) 7.6 g/dL 6.3-8.2 ALBUMIN (test code = 4552312772) 4.2 g/dL 3.5-5.0 ALK PHOS (test code = 5064643046) 73 U/L 34-122 ALTv (test code = 1742-6) 18 U/L 5-35 AST(SGOT) (test code = 4386365482) 24 U/L 13-40 eGFR (test code = 72203-8) 96.2 mL/min/1.73m2 CKD-EPI eGFR (2020). Assuming creatinine has been stable day-to-day for at least three months, the eGFR indicates Category G1 (>= 90 mL/min/1.73 m2) Lab Interpretation (test code = 63309-4) Abnormal [facility] CampusLipase2024-05-29 09:26:57* Test Item Value Reference Range Interpretation Comme nts LIPASE (test code = 7607999961) 108 U/L 0-220 Lab Interpretation (test cod e = 98013-6) Normal [facility] with Mocp2967-99-11 09:13:56* Test Item Value Reference Range Interpretation [...] g/dL 31.6-35.1 L RDW-SD (test code = 85153-4) 42.4 fL 39.0-49.9 RDW-CV (test code = 788-0) 15.7 % 12.0-15.5 H PLT (test code = 777-3) 346 166-358 MPV (test code = 77055-2) 9.8 fL 9.5-12.9 NRBC/100 WBC (test code = 3060225202) 0.0 0.0-10.0 NRBC x10^3 (test code = 5511978582) See_Comment [Automated [employer] ge] The system which generated this result transmitted reference range: 10*3/?L. The reference range was not used to interpret this result as normal/abnormal. GRAN MAT (NEUT) % (test code = 770-8) 43.3 % IMM GRAN % (test code = 1653325165) 0.30 % LYMPH % (test code = 736-9) 42.6 % MONO % (test code = 5905-5) 7.5 % EOS % (test code = 713-8) 5.5 % BASO % (test code = 706-2) 0.8 % GRAN MAT x10^3(ANC) (test code = 9859389761) 3.21 10*3/uL 1.88-7.09 IMM GRAN x10^3 (test code = 8891771147) 0.00-0.06 LYMPH x10^3 (test code = 731-0) 3.16 10*3/uL 1.32-3.29 MONO x10^3 (test code = 742-7) 0.56 10*3/uL 0.33-0.92 EOS x10^3 (test code = 711-2) 0.41 10*3/uL 0.03-0.39 H BASO x10^3 (test code = 704-7) 0.06 10*3/uL 0.01-0.07 Lab Interpretation (test code = 83718-7) Abnormal [facility] CampusEBV-Mononucleosis Sgpvvn7150-08-94 11:45:15* Test Item Value Reference Range Interpretation Comme nts EBV Mononucleosis Screen (te st code = 9893961878) Negative Negative Lab Interpretation (test cod e = 56890-1) Normal [facility] CampusCT ABDOMEN PELVIS W [id number] 10:26:21ORDERING PHYSICIAN: SELENE PARRA CLINICAL HISTORY: Abdominal [...] pelvis. Appendixis normal. The bones are unremarkable.[facility] CampusPORI Hdbc2149-70-24 09:09:00* Test Item Value Reference Range Interpretation Comme [facility] POCT PREG (test code = 1605) Negative On board controls acceptable with C Line (test code = 3574) Yes POCT PREG LOT # (test code = 3575) [id number] POCT PREG TEST DATE ( test code = 3576) 11/21/2024 Lab Interpretation (test cod e = 45360-0) Normal [facility] CampusSURGICAL PATHOLOGY KOBRWF6906-71-65 09:50:51* Test Item Value Reference Range Interpretation Comme [facility] DIAGNOSIS: (test code = 8200) (NOTE) A) Conization (L EEP) - EctocervixHigh grade squamous intraepithelial lesion (CIN2), extendingfocally to endocervical and ectocervical/stromal margins. B) Conization (LEEP) - EndocervixFocal high grade squamous intraepithelial lesion (CIN2).Surgical margins negative for dysplasia. COMMENTS: (test code = 8205) (NOTE) The previously r eported abnormal Pap (accession # [id number]) isreviewed. The biopsy material more clearly displays [...] TanNUMBER OF TISSUE PIECES: 2SUBMITTED IN CASSETTE(S): [id number]: FormalinCOMMENTS:Consists of a 1.9x1.1x0.5 cm irregularly shaped [...] TanNUMBER OF TISSUE PIECES: 1SUBMITTED IN CASSETTE(S): [id number]: FormalinCOMMENTS:[place] shaped rubbery tissue fragment partially surfaced bytan-white ectocervix. Os is inked blue by clinician. Endocervicalmargin inked blue. All remaining margins inked orange. Radiallysectioned x 9 and entirely submitted. Specimen fell apart uponsectioning. PATHOLOGIST: (test code = 8250) (NOTE) Heide Shipley MD, Board-certified Anatomic and ClinicalPathology, Hematopathology Specimens processed and interpreted at [facility] PathologyGraham County Hospitaloraselect [facility] [place], [address] [place] [address], , CLIA: [id number] CPT: (test code = 8400) (NOTE) [id number] UNLESS O THERWISE INDICATED, ALL TESTING PERFORMED AT CLINICAL PATHOLOGY [employer] [address] [place] [address] ADMISSIONS COORDINATOR: ANIBAL PAREDES M.D. CLIA NUMBER [id number] [facility]. [id number] SURGICAL PATHOLOGY [id number] 00:00:00* Test Item Value Reference Range Interpretation [...] = PDFReport) PDF Darryl Ackerman AustinSURGICAL PATHOLOG[facility] [id number] 00:00:00* Test Item Value Reference Range Interpretation [...] = PDFReport) PDF Darryl Ackerman AustinSURGICAL PATHOLOGY [id number] 00:00:00* Test Item Value Reference Range Interpretation [...] = PDFReport) PDF Darryl Ackerman AustinSURGICAL PATHOLOGY [id number] 00:00:00* Test Item Value Reference Range Interpretation Comme nts DIAGNOSIS: (test code = 8200) (NOTE) COMMENTS: (test code = 8205) (NOTE) MICROSCOPIC DESCRIPTION: (te st code = 8210) (NOTE) CLINICAL DATA: (test code = 8401) (NOTE) GROSS DESCRIPTION: (test code = 8220) (NOTE) PATHOLOGIST: (test code = 8250) (NOTE) CPT: (test code = 8400) (NOTE) PDFE (test code = PDFReport) PDF Darryl Ackerman OneillSURGICAL PATHOLOGY [id number] 00:00:00* Test Item Value Reference Range Interpretation [...] [facility]ckerman [facility]RG[facility]OLOG[facility] [id number] 00:00:00* Test Item Value Reference Range Interpretation Comme nts DIAGNOSIS: (test code = 8200) (NOTE) COMMENTS: (test code = 8205) (NOTE) MICROSCOPIC DESCRIPTION: (te st code = 8210) (NOTE) CLINICAL DATA: (test code = 8401) (NOTE) GROSS DESCRIPTION: (test code = 8220) (NOTE) PATHOLOGIST: (test code = 8250) (NOTE) CPT: (test code = 8400) (NOTE) PDFE (test code = PDFReport) PDF Darryl Ackerman OneillSURGICAL PATHOLOGY [id number] 00:00:00* Test Item Value Reference Range Interpretation [...] = PDFReport) PDF Darryl Ackerman AustinSURGICAL PATHOLOGY [id number] 00:00:00* Test Item Value Reference Range Interpretation [...] code = PDFReport) PDF Darryl Chang OVARY [id number] 16:27:21EXAM: US OVARY TORSION HISTORY: 32 years [...] Cul-de-sac: Trace volume free fluid is present.[facility] CampusCT ABDOMEN PELVIS W [id number] 15:15:04EXAM: CT ABDOMEN PELVIS W CONTRAST HISTORY: [...] No suspicious lytic or sclerotic bony lesions arepresent.[facility]. METABOLIC PANEL (25559)2023-11-20 14:09:45* Test Item Value Reference Range Interpretation Comme nts NA (test code = 5533881722) 135 mmol/L 135-145 K (test code = 4460931788) 4.1 mmol/L 3.5-5.0 CL (test code = 5523666617) 112 mmol/L 98-108 H CO2 TOTAL (test code = 8026489082) 17 mmol/L 23-31 L AGAP (test code = 6161871417) 6 2-16 BUN (test code = 8660158337) 10 mg/dL 7-23 GLUCOSE (test code = 9429447104) 95 mg/dL 70-110 CREATININE (test code = 1018624775) 0.72 mg/dL 0.50-1.04 TOTAL BILI (test code = 0310579898) 0.2 mg/dL 0.1-1.1 CALCIUM (test code = 7136760504) 9.0 mg/dL 8.6-10.6 T PROTEIN (test code = 8237004594) 7.6 g/dL 6.3-8.2 ALBUMIN (test code = 4831593881) 4.3 g/dL 3.5-5.0 ALK PHOS (test code = 0861446770) 81 U/L 34-122 ALTv (test code = 1742-6) 23 U/L 5-35 AST(SGOT) (test code = 4297832315) 26 U/L 13-40 eGFR (test code = 61309-5) 114.8 mL/min/1.73m2 CKD-EPI eGFR (2020). Assuming creatinine has been stable day-to-day for at least three months, the eGFR indicates Category G1 (>= 90 mL/min/1.73 m2) Lab Interpretation (test code = 52640-7) Abnormal [facility] WITH [id number] 13:53:43* Test Item Value Reference Range Interpretation [...] g/dL 31.6-35.1 L RDW-SD (test code = 59411-2) 42.6 fL 39.0-49.9 RDW-CV (test code = 788-0) 15.5 % 12.0-15.5 PLT (test code = 777-3) 364 166-358 H MPV (test code = 80746-3) 10.0 fL 9.5-12.9 NRBC/100 WBC (test code = 0529610101) 0.0 0.0-10.0 NRBC x10^3 (test code = 0018081240) See_Comment [Automated messa ge] The system which generated this result transmitted reference range: 10*3/?L. The reference range was not used to interpret this result as normal/abnormal. GRAN MAT (NEUT) % (test code = 770-8) 59.8 % IMM GRAN % (test code = 3114368160) 0.30 % LYMPH % (test code = 736-9) 27.8 % MONO % (test code = 5905-5) 9.2 % EOS % (test code = 713-8) 2.1 % BASO % (test code = 706-2) 0.8 % GRAN MAT x10^3(ANC) (test code = 0351713798) 3.70 10*3/uL 1.88-7.09 IMM GRAN x10^3 (test code = 0047472706) 0.00-0.06 LYMPH x10^3 (test code = 731-0) 1.72 10*3/uL 1.32-3.29 MONO x10^3 (test code = 742-7) 0.57 10*3/uL 0.33-0.92 EOS x10^3 (test code = 711-2) 0.13 10*3/uL 0.03-0.39 BASO x10^3 (test code = 704-7) 0.05 10*3/uL 0.01-0.07 Lab Interpretation (test code = 98603-7) Abnormal [facility] [id number] 13:26:00* Test Item Value Reference Range Interpretation Comme nts POCT PREG (test code = 1605) Negative On board controls acceptable with C Line (test code = 3574) Yes POCT PREG LOT # (test code = 3575) [id number] POCT PREG TEST DATE ( test code = 3576) 01/20/2025 Lab Interpretation (test cod e = 79802-2) Normal [facility] [id number] 13:28:00* Test Item Value Reference Range Interpretation Comme nts POCT PREG (test code = 1605) Negative On board controls acceptable with C Line (test code = 3574) Yes POCT PREG LOT # (test code = 3575) [id number] POCT PREG TEST DATE ( test code = 3576) 12/23/2024 Lab Interpretation (test cod e = 10099-3) Normal [facility], NAAT, [id number] 18:43:32* Test Item Value Reference Range Interpretation Comme nts CHLAMYDIA, NAAT, URINE (test code = 23451) NEGATIVE NEGATIVE Testing is perfo rmed with Lucie HARRY 6800/8800 systems usingreal-time polymerase chain reaction (PCR) method. A negative result does not exclude low level infection, specimensampling error, or collection error. GONORRHEA, NAAT, URINE (test code = 30715) NEGATIVE NEGATIVE Testing is perfo rmed with Lucie HARRY 6800/8800 systems usingreal-time polymerase chain reaction (PCR) method. A negative result does not exclude low level infection, specimensampling error, or collection error. UNLESS OTHERWISE INDICATED, ALL TESTING PERFORMED AT [facility]. [address] [place] [address] ADMISSIONS COORDINATOR: ANIBAL PAREDES M.D. CLIA NUMBER [id number] [facility] [place]. [id number] TRICHOMONAS, NAAT, [id number] 16:46:16* Test Item Value Reference Range Interpretation Comme nts TRICHOMONAS, NAAT, URINE (test code = 28730) NEGATIVE NEGATIVE Testing is perfo rmed with Lucie HARRY 6800/8800 method usingreal-time polymerase chain reaction (PCR) method. A negative result does not exclude low level infection, specimensampling error, or collection error. TRICHOMONAS, URINE, [id number] 00:00:00* Test Item Value Reference Range Interpretation Comme nts TRICHOMONAS, NAAT, URINE (te st code = 54365) NEGATIVE Darryl F AustinCT/NG, TMA, [id number] 00:00:00* Test Item Value Reference Range Interpretation Comme nts CHLAMYDIA, NAAT, URINE (test code = 99813) NEGATIVE GONORRHEA, NAAT, URINE (test code = 77540) NEGATIVE Darryl F AustinTRICHOMONAS, URINE, [id number] 00:00:00* Test Item Value Reference Range Interpretation Comme nts TRICHOMONAS, NAAT, URINE (te st code = 15469) NEGATIVE Darryl F AustinCT/NG, TMA, [id number] 00:00:00* Test Item Value Reference Range Interpretation Comme nts CHLAMYDIA, NAAT, URINE (test code = 28334) NEGATIVE GONORRHEA, NAAT, URINE (test code = 87846) NEGATIVE Darryl F AustinTRICHOMONAS, URINE, [id number] 00:00:00* Test Item Value Reference Range Interpretation Comme nts TRICHOMONAS, NAAT, URINE (te st code = 63791) NEGATIVE Darryl F AustinCT/NG, TMA, [id number] 00:00:00* Test Item Value Reference Range Interpretation Comme nts CHLAMYDIA, NAAT, URINE (test code = 35557) NEGATIVE GONORRHEA, NAAT, URINE (test code = 87198) NEGATIVE Darryl F AustinTRICHOMONAS, URINE, [id number] 00:00:00* Test Item Value Reference Range Interpretation Comme nts TRICHOMONAS, NAAT, URINE (te st code = 68137) NEGATIVE Darryl F AustinCT/NG, TMA, [id number] 00:00:00* Test Item Value Reference Range Interpretation Comme nts CHLAMYDIA, NAAT, URINE (test code = 43216) NEGATIVE GONORRHEA, NAAT, URINE (test code = 20905) NEGATIVE Darryl F AustinTRICHOMONAS, URINE, [id number] 00:00:00* Test Item Value Reference Range Interpretation Comme nts TRICHOMONAS, NAAT, URINE (te st code = 79243) NEGATIVE Darryl F AustinCT/NG, TMA, [id number] 00:00:00* Test Item Value Reference Range Interpretation Comme nts CHLAMYDIA, NAAT, URINE (test code = 56057) NEGATIVE GONORRHEA, NAAT, URINE (test code = 40242) NEGATIVE Darryl F AustinTRICHOMONAS, URINE, [id number] 00:00:00* Test Item Value Reference Range Interpretation Comme nts TRICHOMONAS, NAAT, URINE (te st code = 75977) NEGATIVE Darryl F AustinCT/NG, TMA, [id number] 00:00:00* Test Item Value Reference Range Interpretation Comme nts CHLAMYDIA, NAAT, URINE (test code = 89408) NEGATIVE GONORRHEA, NAAT, URINE (test code = 19441) NEGATIVE Darryl F AustinTRICHOMONAS, URINE, [id number] 00:00:00* Test Item Value Reference Range Interpretation Comme nts TRICHOMONAS, NAAT, URINE (te st code = 29765) NEGATIVE Darryl F AustinCT/NG, TMA, [id number] 00:00:00* Test Item Value Reference Range Interpretation Comme nts CHLAMYDIA, NAAT, URINE (test code = 49936) NEGATIVE GONORRHEA, NAAT, URINE (test code = 93581) NEGATIVE Darryl F AustinTRICHOMONAS, URINE, [id number] 00:00:00* Test Item Value Reference Range Interpretation Comme nts TRICHOMONAS, NAAT, URINE (te st code = 14172) NEGATIVE Darryl F AustinCT/NG, TMA, [id number] 00:00:00* Test Item Value Reference Range Interpretation Comme nts CHLAMYDIA, NAAT, URINE (test code = 05815) NEGATIVE GONORRHEA, NAAT, URINE (test code = 80178) NEGATIVE Darryl Ackerman AustinPOCT [id number] 12:56:00* Test Item Value Reference Range Interpretation Comme nts POCT PREG (test code = 1605) Negative On board controls acceptable with C Line (test code = 3574) Yes POCT PREG LOT # (test code = 3575) [facility] [id number] POCT PREG TEST DATE (test code = 3576) 12/12/2024 Lab Interpretation (test cod e = 74031-7) Normal [facility] [id number] 10:24:44* Test Item Value Reference Range Interpretation [...] TanNUMBER OF TISSUE PIECES: 1SUBMITTED IN CASSETTE(S): [id number]: FormalinCOMMENTS:Entirely submitted intact. F) SPECIMEN LABELED: Cervix 8:00SIZE/WEIGHT: 0.2x0.1x0.1 cm SPECIMEN COLOR: TanNUMBER OF TISSUE PIECES: 1SUBMITTED IN CASSETTE(S): [id number]: FormalinCOMMENTS:Entirely submitted intact. A) SPECIMEN LABELED: EndometriumSIZE/WEIGHT: 1.4x1.3x0.2 cm AggregateSPECIMEN COLOR: TanNUMBER OF TISSUE PIECES: multipleSUBMITTED IN CASSETTE(S): [id number]: FormalinCOMMENTS:Filtered and entirely submitted. B) SPECIMEN LABELED: EndocervixSIZE/WEIGHT: 1.7x1.5x0.3 cm AggregateSPECIMEN COLOR: TanNUMBER OF TISSUE PIECES: multipleSUBMITTED IN CASSETTE(S): [id number]: FormalinCOMMENTS:Filtered and entirely submitted. C) SPECIMEN LABELED: Cervix 1:00SIZE/WEIGHT: 0.4x0.3x0.1 cm SPECIMEN COLOR: TanNUMBER OF TISSUE PIECES: 1SUBMITTED IN CASSETTE(S): [id number]: FormalinCOMMENTS:Entirely submitted intact. D) SPECIMEN LABELED: Cervix 3:00SIZE/WEIGHT: 0.2x0.2x0.1 cm SPECIMEN COLOR: TanNUMBER OF TISSUE PIECES: 1SUBMITTED IN CASSETTE(S): [id number]: FormalinCOMMENTS:Entirely submitted intact. PATHOLOGIST: (test code = 8250) (NOTE) Gita Morocho M.D., P h.D., Board Certified in Anatomic and ClinicalPathology, Cytopathology Specimens processed and interpreted at [facility], [address] [place] [address], , CLIA: [id number] CPT: (test code = 8400) (NOTE) [id number] UNLESS O THERWISE INDICATED, ALL TESTING PERFORMED AT [facility] [address] [place] [address] ADMISSIONS COORDINATOR: ANIBAL PAREDES M.D. CLIA NUMBER [id number] [facility] [place]. [id number] SURGICAL PATHOLOGY [id number] 00:00:00* Test Item Value Reference Range Interpretation Comme nts DIAGNOSIS: (test code = 8200) (NOTE) MICROSCOPIC DESCRIPTION: (te st code = 8210) (NOTE) CLINICAL DATA: (test code = 8401) (NOTE) GROSS DESCRIPTION: (test code = 8220) (NOTE) PATHOLOGIST: (test code = 8250) (NOTE) CPT: (test code = 8400) (NOTE) PDFE (test code = PDFReport) PDF Darryl Ackerman AustinSURGICAL PATHOLOGY [id number] 00:00:00* Test Item Value Reference Range Interpretation Comme nts DIAGNOSIS: (test code = 8200) (NOTE) MICROSCOPIC DESCRIPTION: (te st code = 8210) (NOTE) CLINICAL DATA: (test code = 8401) (NOTE) GROSS DESCRIPTION: (test code = 8220) (NOTE) PATHOLOGIST: (test code = 8250) (NOTE) CPT: (test code = 8400) (NOTE) PDFE (test code = PDFReport) PDF Darryl Ackerman AustinSURGICAL PATHOLOGY [id number] 00:00:00* Test Item Value Reference Range Interpretation Comme nts DIAGNOSIS: (test code = 8200) (NOTE) MICROSCOPIC DESCRIPTION: (te st code = 8210) (NOTE) CLINICAL DATA: (test code = 8401) (NOTE) GROSS DESCRIPTION: (test code = 8220) (NOTE) PATHOLOGIST: (test code = 8250) (NOTE) CPT: (test code = 8400) (NOTE) PDFE (test code = PDFReport) PDF [facility]erman [facility] [id number] 00:00:00* Test Item Value Reference Range Interpretation Comme nts DIAGNOSIS: (test code = 8200) (NOTE) MICROSCOPIC DESCRIPTION: (te st code = 8210) (NOTE) CLINICAL DATA: (test code = 8401) (NOTE) GROSS DESCRIPTION: (test code = 8220) (NOTE) PATHOLOGIST: (test code = 8250) (NOTE) CPT: (test code = 8400) (NOTE) PDFE (test code = PDFReport) PDF [facility]erman [facility] [id number] 00:00:00* Test Item Value Reference Range Interpretation Comme nts DIAGNOSIS: (test code = 8200) (NOTE) MICROSCOPIC DESCRIPTION: (te st code = 8210) (NOTE) CLINICAL DATA: (test code = 8401) (NOTE) GROSS DESCRIPTION: (test code = 8220) (NOTE) PATHOLOGIST: (test code = 8250) (NOTE) CPT: (test code = 8400) (NOTE) PDFE (test code = PDFReport) PDF [facility]ryl [facility]ckerman [facility] [id number] 00:00:00* Test Item Value Reference Range Interpretation Comme nts DIAGNOSIS: (test code = 8200) (NOTE) MICROSCOPIC DESCRIPTION: (te st code = 8210) (NOTE) CLINICAL DATA: (test code = 8401) (NOTE) GROSS DESCRIPTION: (test code = 8220) (NOTE) PATHOLOGIST: (test code = 8250) (NOTE) CPT: (test code = 8400) (NOTE) PDFE (test code = PDFReport) PDF Darryl Ackerman [facility] [id number] 00:00:00* Test Item Value Reference Range Interpretation Comme nts DIAGNOSIS: (test code = 8200) (NOTE) MICROSCOPIC DESCRIPTION: (te st code = 8210) (NOTE) CLINICAL DATA: (test code = 8401) (NOTE) GROSS DESCRIPTION: (test code = 8220) (NOTE) PATHOLOGIST: (test code = 8250) (NOTE) CPT: (test code = 8400) (NOTE) PDFE (test code = PDFReport) PDF Darryl Ackerman AustinSURGICAL PATHOLOGY [id number] 00:00:00* Test Item Value Reference Range Interpretation Comme nts DIAGNOSIS: (test code = 8200) (NOTE) MICROSCOPIC DESCRIPTION: (te st code = 8210) (NOTE) CLINICAL DATA: (test code = 8401) (NOTE) GROSS DESCRIPTION: (test code = 8220) (NOTE) PATHOLOGIST: (test code = 8250) (NOTE) CPT: (test code = 8400) (NOTE) PDFE (test code = PDFReport) PDF Darryl Ackerman AustinVAGINAL PATHOGENS DNA [id number] 13:41:36* Test Item Value Reference Range Interpretation Comme nts JAZ SPECIES (test code = 55130) NEGATIVE NEGATIVE G. VAGINALIS (test code = 24338) NEGATIVE NEGATIVE T. VAGINALIS (test code = 89878) NEGATIVE NEGATIVE Note: [facility] VPIII Microbial Identification Testis a DNA probe test intended for use in the detectionand identification of Jaz species, Gardnerellavaginalis and Trichomonas vaginalis nucleic acid. UNLESS OTHERWISE INDICATED, ALL TESTING PERFORMED AT [facility] [address] [place] [address] ADMISSIONS COORDINATOR: ANIBAL PAREDES M.D. [place] NUMBER [id number] [facility] [place]. [id number] VAGINAL PATHOGENS DNA [id number] 00:00:00* Test Item Value Reference Range Interpretation Comme nts JAZ SPECIES (test code = 61933) NEGATIVE G. VAGINALIS (test code = 87828) NEGATIVE T. VAGINALIS (test code = 66745) NEGATIVE Darryl Ackerman AustinVAGINAL PATHOGENS DNA [id number] 00:00:00* Test Item Value Reference Range Interpretation Comme nts JAZ SPECIES (test code = 41268) NEGATIVE G. VAGINALIS (test code = 49986) NEGATIVE T. VAGINALIS (test code = 85950) NEGATIVE Darryl Ackerman AustinVAGINAL PATHOGENS DNA [id number] 00:00:00* Test Item Value Reference Range Interpretation Comme nts JAZ SPECIES (test code = ) NEGATIVE G. VAGINALIS (test code = 09153) NEGATIVE T. VAGINALIS (test code = 54876) NEGATIVE Darryl F AustinVAGINAL PATHOGENS DNA [id number] 00:00:00* Test Item Value Reference Range Interpretation Comme nts JAZ SPECIES (test code = 02353) NEGATIVE G. VAGINALIS (test code = 01081) NEGATIVE T. VAGINALIS (test code = 30334) NEGATIVE Darryl F AustinVAGINAL PATHOGENS DNA [id number] 00:00:00* Test Item Value Reference Range Interpretation Comme nts JAZ SPECIES (test code = 96958) NEGATIVE G. VAGINALIS (test code = 41889) NEGATIVE T. VAGINALIS (test code = 47573) NEGATIVE Darryl F AustinVAGINAL PATHOGENS DNA [id number] 00:00:00* Test Item Value Reference Range Interpretation Comme nts JAZ SPECIES (test code = 79674) NEGATIVE G. VAGINALIS (test code = 16034) NEGATIVE T. VAGINALIS (test code = 88101) NEGATIVE Darryl F AustinVAGINAL PATHOGENS DNA [id number] 00:00:00* Test Item Value Reference Range Interpretation Comme nts JAZ SPECIES (test code = 22432) NEGATIVE G. VAGINALIS (test code = 75508) NEGATIVE T. VAGINALIS (test code = 61422) NEGATIVE Darryl F AustinVAGINAL PATHOGENS DNA [id number] 00:00:00* Test Item Value Reference Range Interpretation Comme nts JAZ SPECIES (test code = 61784) NEGATIVE G. VAGINALIS (test code = 97671) NEGATIVE T. VAGINALIS (test code = 97978) NEGATIVE Darryl F AustinCOMP. METABOLIC PANEL (19603)2023-06-12 05:34:53* Test Item Value Reference Range Interpretation Comme nts NA (test code = 4071845358) 137 mmol/L 135-145 K (test code = 9192985976) 3.9 mmol/L 3.5-5.0 CL (test code = 4647086047) 106 mmol/L 98-108 CO2 TOTAL (test code = 3696937795) 24 mmol/L 23-31 AGAP (test code = 9283793788) 7 2-16 BUN (test code = 4044691386) 10 mg/dL 7-23 GLUCOSE (test code = 3755236287) 90 mg/dL 70-110 CREATININE (test code = 3214146565) 0.94 mg/dL 0.50-1.04 TOTAL BILI (test code = 0417208524) 0.1-1.1 L CALCIUM (test code = 2667434813) 9.1 mg/dL 8.6-10.6 T PROTEIN (test code = 7864431407) 6.9 g/dL 6.3-8.2 ALBUMIN (test code = 3013064529) 4.1 g/dL 3.5-5.0 ALK PHOS (test code = 6691468702) 72 U/L 34-122 ALTv (test code = 1742-6) 24 U/L 5-35 AST(SGOT) (test code = 1706973782) 28 U/L 13-40 eGFR (test code = 5157434238) 69.5 mL/min/1.73m2 ELIA (test code = ELIA) [...] imaging tests). Lab Interpretation (test code = 32581-7) Abnormal [facility] WITH [id number] 05:16:33* Test Item Value Reference Range Interpretation Comme nts WBC (test code = 6690-2) 7.81 See_Comment [Automated [employer]] The system which generated this result transmitted reference range: 4.30 - 11.10 10*3/?L. The reference range was not used to interpret this result as normal/abnormal. RBC (test code = 789-8) 3.89 See_Comment L [Automated [employer]] The system which generated this result [...] g/dL 31.6-35.1 L RDW-SD (test code = 73936-0) 48.2 fL 39.0-49.9 RDW-CV (test code = 788-0) 17.9 % 12.0-15.5 H PLT (test code = 777-3) 327 See_Comment [Automated [employer]] The system which generated this result transmitted reference range: 166 - 358 10*3/?L. The reference range was not used to interpret this result as normal/abnormal. MPV (test code = 51688-7) 9.7 fL 9.5-12.9 NRBC/100 WBC (test code = 1777869455) 0.0 See_Comment [Automated [employer] ssage] The system which generated this result transmitted reference range: 0.0 - 10.0 /100 WBCs. The reference range was not used to interpret this result as normal/abnormal. NRBC x10^3 (test code = 4640854629) See_Comment [Automated messa ge] The system which generated this result transmitted reference range: 10*3/?L. The reference range was not used to interpret this result as normal/abnormal. GRAN MAT (NEUT) % (test code = 770-8) 40.4 % IMM GRAN % (test code = 2322269555) 0.10 % LYMPH % (test code = 736-9) 45.5 % MONO % (test code = 5905-5) 9.0 % EOS % (test code = 713-8) 4.5 % BASO % (test code = 706-2) 0.5 % GRAN MAT x10^3(ANC) (test code = 9366866673) 3.16 10*3/uL 1.88-7.09 IMM GRAN x10^3 (test code = 5800019927) 0.00-0.06 LYMPH x10^3 (test code = 731-0) 3.55 10*3/uL 1.32-3.29 H MONO x10^3 (test code = 742-7) 0.70 10*3/uL 0.33-0.92 EOS x10^3 (test code = 711-2) 0.35 10*3/uL 0.03-0.39 BASO x10^3 (test code = 704-7) 0.04 10*3/uL 0.01-0.07 Lab Interpretation (test code = 97389-0) [facility]normal [facility] [id number] 05:07:00* Test Item Value Reference Range Interpretation Comme nts POCT PREG (test code = 1605) Negative On board controls acceptable with C Line (test code = 3574) Yes POCT PREG LOT # (test code = 3575) 112704 POCT PREG TEST DATE ( test code = 3576) 10/17/2024 Lab Interpretation (test cod e = 16557-0) Normal [facility] TEST, THINPREP, [id number] 18:32:20 * Test Item Value Reference Range Interpretation Comme nts SOURCE: (test code = 8001) Cervical SLIDES: (test code = 8011) 1 LMP: (test code = 8021) 05/17/2023 SPECIMEN ADEQUACY: (test code = 15719) (NOTE) Satisfactory for evaluation. Endocervical cells/transformation zone component present. INTERPRETATION: (test code = 07529) ASCUS/EPITH. ABNORMALITY; SEE BELOW A - ------- EPITHELIAL CELL ABNORMALITY Atypical squamous cells of undetermined significance (ASC-US) OTHER COMMENTS: (test code = 8081) (NOTE) Trichomonas v aginalis present. VP CUSTOMER DEVELOPMENT: (test code = 8101) TIERA Mcgee(ASC P) PATHOLOGIST INTERPRETATION BY: (test code = 8122) Joana Luna DO LOCATION: (test code = 61588) (NOTE) Specimens proces sed and interpreted at [facility] , [address] [place] [address], , CLIA: [id number] CPT: (test code = 8140) (NOTE) 57532, 22498 UNL ESS OTHERWISE INDICATED, COMPUTER AIDED AND VP CUSTOMER DEVELOPMENT SCREENING PERFORMED. The Pap test is a screening test with an inherent, but low probability of error. Your patient should be reminded to consult you immediately if she experiences any suspicious signs or symptoms, regardless of her Pap test result. An alternate report format containing images or consolidated prior Pap history is available as applicable. PAP TEST, THINPREP, [id number] 00:00:00* Test Item Value Reference Range Interpretation Comme nts SOURCE: (test code = 8001) Cervical SLIDES: (test code = 8011) 1 LMP: (test code = 8021) 05/17/2023 SPECIMEN ADEQUACY: (test code = 41217) (NOTE) INTERPRETATION: (test code = 61808) ASCUS/EPITH. ABNORMALITY; SEE BELOW OTHER COMMENTS: (test code = 8081) (NOTE) VP CUSTOMER DEVELOPMENT: (test code = 8101) TIERA Mcgee(ASCP) PATHOLOGIST INTERPRETATION BY: (test code = 8122) Joana Luna DO LOCATION: (test code = 91475) (NOTE) CPT: (test code = 8140) (NOTE) Darryl WaggonerANGELESP TEST, THINPREP, [id number] 00:00:00* Test Item Value Reference Range Interpretation Comme nts SOURCE: (test code = 8001) Cervical SLIDES: (test code = 8011) 1 LMP: (test code = 8021) 05/17/2023 SPECIMEN ADEQUACY: (test code = 37434) (NOTE) INTERPRETATION: (test code = 03608) ASCUS/EPITH. ABNORMALITY; SEE BELOW OTHER COMMENTS: (test code = 8081) (NOTE) VP CUSTOMER DEVELOPMENT: (test code = 8101) TIERA Mcgee(ASCP) PATHOLOGIST INTERPRETATION BY: (test code = 8122) Joana Luna DO LOCATION: (test code = 66510) (NOTE) CPT: (test code = 8140) (NOTE) Darryl F AbbeP TEST, THINPREP, [id number] 00:00:00* Test Item Value Reference Range Interpretation Comme nts SOURCE: (test code = 8001) Cervical SLIDES: (test code = 8011) 1 LMP: (test code = 8021) 05/17/2023 SPECIMEN ADEQUACY: (test code = 80323) (NOTE) INTERPRETATION: (test code = 48998) ASCUS/EPITH. ABNORMALITY; SEE BELOW OTHER COMMENTS: (test code = 8081) (NOTE) VP CUSTOMER DEVELOPMENT: (test code = 8101) TIERA Mcgee(ASCP) PATHOLOGIST INTERPRETATION BY: (test code = 8122) Joana Luna DO LOCATION: (test code = 67482) (NOTE) CPT: (test code = 8140) (NOTE) Darryl Ackerman AbbeP TEST, THINPREP, [id number] 00:00:00* Test Item Value Reference Range Interpretation Comme nts SOURCE: (test code = 8001) Cervical SLIDES: (test code = 8011) 1 LMP: (test code = 8021) 05/17/2023 SPECIMEN ADEQUACY: (test code = 23226) (NOTE) INTERPRETATION: (test code = 87972) ASCUS/EPITH. ABNORMALITY; SEE BELOW OTHER COMMENTS: (test code = 8081) (NOTE) VP CUSTOMER DEVELOPMENT: (test code = 8101) TIERA Mcgee(ASCP) PATHOLOGIST INTERPRETATION BY: (test code = 8122) Joana Luna DO LOCATION: (test code = 14683) (NOTE) CPT: (test code = 8140) (NOTE) Darryl Tyron EdilsonPAP TEST, THINPREP, [id number] 00:00:00* Test Item Value Reference Range Interpretation Comme nts SOURCE: (test code = 8001) Cervical SLIDES: (test code = 8011) 1 LMP: (test code = 8021) 05/17/2023 SPECIMEN ADEQUACY: (test code = 57675) (NOTE) INTERPRETATION: (test code = 83653) ASCUS/EPITH. ABNORMALITY; SEE BELOW OTHER COMMENTS: (test code = 8081) (NOTE) VP CUSTOMER DEVELOPMENT: (test code = 8101) TIERA Mcgee(ASCP) PATHOLOGIST INTERPRETATION BY: (test code = 8122) Joana Luna DO LOCATION: (test code = 56414) (NOTE) CPT: (test code = 8140) (NOTE) Darryl Perez TEST, THINPREP, [id number] 00:00:00* Test Item Value Reference Range Interpretation Comme nts SOURCE: (test code = 8001) Cervical SLIDES: (test code = 8011) 1 LMP: (test code = 8021) 05/17/2023 SPECIMEN ADEQUACY: (test code = 31871) (NOTE) INTERPRETATION: (test code = 27397) ASCUS/EPITH. ABNORMALITY; SEE BELOW OTHER COMMENTS: (test code = 8081) (NOTE) VP CUSTOMER DEVELOPMENT: (test code = 8101) TIERA Mcgee(ASCP) PATHOLOGIST INTERPRETATION BY: (test code = 8122) Joana Luna DO LOCATION: (test code = 38680) (NOTE) CPT: (test code = 8140) (NOTE) Darryl Perez TEST, THINPREP, [id number] 00:00:00* Test Item Value Reference Range Interpretation Comme nts SOURCE: (test code = 8001) Cervical SLIDES: (test code = 8011) 1 LMP: (test code = 8021) 05/17/2023 SPECIMEN ADEQUACY: (test code = 97034) (NOTE) INTERPRETATION: (test code = 56097) ASCUS/EPITH. ABNORMALITY; SEE BELOW OTHER COMMENTS: (test code = 8081) (NOTE) VP CUSTOMER DEVELOPMENT: (test code = 8101) TIERA Mcgee(ASCP) PATHOLOGIST INTERPRETATION BY: (test code = 8122) [facility] LOCATION: (test code = 59617) (NOTE) CPT: (test code = 8140) (NOTE) Darryl Perez TEST, THINPREP, [id number] 00:00:00* Test Item Value Reference Range Interpretation Comme nts SOURCE: (test code = 8001) Cervical SLIDES: (test code = 8011) 1 LMP: (test code = 8021) 05/17/2023 SPECIMEN ADEQUACY: (test code = 82650) (NOTE) INTERPRETATION: (test code = 75216) ASCUS/EPITH. ABNORMALITY; SEE BELOW OTHER COMMENTS: (test code = 8081) (NOTE) VP CUSTOMER DEVELOPMENT: (test code = 8101) TIERA Mcgee(ASCP) PATHOLOGIST INTERPRETATION BY: (test code = 8122) [facility] LOCATION: (test code = 72368) (NOTE) CPT: (test code = 8140) (NOTE) Darryl Ackerman EdilsonCT/NG, NAAT, [id number] 20:10:21* Test Item Value Reference Range Interpretation Comme nts CHLAMYDIA, NAAT, URINE (test code = 72448) POSITIVE NEGATIVE A Testing is perfo rmed with Lucie HARRY 6800/8800 systems usingreal-time polymerase chain reaction (PCR) method. GONORRHEA, NAAT, URINE (test code = 52254) NEGATIVE NEGATIVE Testing is perfo rmed with Lucie HARRY 6800/8800 systems usingreal-time polymerase chain reaction (PCR) method. A negative result does not exclude low level infection, specimensampling error, or collection error. UNLESS OTHERWISE INDICATED, ALL TESTING PERFORMED AT [facility] [address] [place] [id number] ADMISSIONS COORDINATOR: ANIBAL PAREDES M.D. CLIA NUMBER [id number] [place] [id number] HPV HIGH RISK WITH GENOTYPE, [id number] 17:33:46* Test Item Value Reference Range Interpretation Comme nts HPV HIGH RISK INTERP (test code = 58363) POSITIVE NEGATIVE A HPV 16 (test code = 86397) POSITIVE A HPV 18 (test code = 27009) NEGATIVE HPV, HR, OTHER GENOTYPES (test code = 94565) NEGATIVE Testing methodol ogy is real-time PCR [...] TESTING PERFORMED AT [facility] [address] [place] [address] ADMISSIONS COORDINATOR: ANIBAL PAREDES M.D. CLIA NUMBER [id number] [place]. [id number] VAGINAL PATHOGENS DNA [id number] 16:55:18* Test Item Value Reference Range Interpretation Comme nts JAZ SPECIES (test code = 54162) NEGATIVE NEGATIVE G. VAGINALIS (test code = 41734) NEGATIVE NEGATIVE T. VAGINALIS (test code = 12537) NEGATIVE NEGATIVE Note: [facility] VPIII Microbial Identification Testis a DNA probe test intended for use in the detectionand identification of Jaz species, Gardnerellavaginalis and Trichomonas vaginalis nucleic acid. UNLESS OTHERWISE INDICATED, ALL TESTING PERFORMED AT [facility], [facility]. [address] [place] [address] ADMISSIONS COORDINATOR: ANIBAL PAREDES M.D. CLIA NUMBER [id number] [place]. [id number] RPR REFLEX TO T. PALLIDUM - [id number] 08:07:41* Test Item Value Reference Range Interpretation Comme nts RPR (test code = 46437) NON-REACTIVE NON-REACTIVE RPR TITER (test code = 3500) NOT INDIC. TITER NOT INDIC. HIV 1/2 4TH GEN, RFLX [id number] 05:24:44* Test Item Value Reference Range Interpretation Comme nts HIV 1/2 4TH GEN, RFLX CONF ( test code = 3514) NON-REACTIVE NON-REACTIVE HPV HIGH RISK WITH GENOTYPE, [id number] 00:00:00* Test Item Value Reference Range Interpretation Comme nts HPV HIGH RISK INTERP (test c ode = 46017) POSITIVE HPV 16 (test code = 03522) POSITIVE HPV 18 (test code = 45419) NEGATIVE HPV, HR, OTHER GENOTYPES (te st code = 98265) NEGATIVE PDFE (test code = PDFReport) PDF Darryl Ackerman AustinRPR REFLEX TO T. PALLIDUM - [id number] 00:00:00* Test Item Value Reference Range Interpretation Comme nts RPR (test code = 58001) NON-REACTIVE RPR TITER (test code = 3500) NOT INDIC. TITER Darryl Ackerman AustinCT/NG, TMA, [id number] 00:00:00* Test Item Value Reference Range Interpretation Comme nts CHLAMYDIA, NAAT, URINE (test code = 38618) POSITIVE GONORRHEA, NAAT, URINE (test code = 68414) NEGATIVE Darryl Ackerman AustinHIV 1/2 4TH GEN, RFLX [id number] 00:00:00* Test Item Value Reference Range Interpretation Comme nts HIV 1/2 4TH GEN, RFLX CONF ( test code = 3514) NON-REACTIVE Darryl Ackerman AustinVAGINAL PATHOGENS DNA [id number] 00:00:00* Test Item Value Reference Range Interpretation Comme nts JAZ SPECIES (test code = 47294) NEGATIVE G. VAGINALIS (test code = 84241) NEGATIVE T. VAGINALIS (test code = 48286) NEGATIVE Darryl F AustinRPR REFLEX TO T. PALLIDUM - [id number] 00:00:00* Test Item Value Reference Range Interpretation Comme nts RPR (test code = 02222) NON-REACTIVE RPR TITER (test code = 3500) NOT INDIC. TITER Darryl F AustinHPV HIGH RISK WITH GENOTYPE, [id number] 00:00:00* Test Item Value Reference Range Interpretation Comme nts HPV HIGH RISK INTERP (test c ode = 62364) POSITIVE HPV 16 (test code = 03709) POSITIVE HPV 18 (test code = 13171) NEGATIVE HPV, HR, OTHER GENOTYPES (te st code = 62902) NEGATIVE PDFE (test code = PDFReport) PDF Darryl Ackerman AustinCT/NG, TMA, [id number] 00:00:00* Test Item Value Reference Range Interpretation Comme nts CHLAMYDIA, NAAT, URINE (test code = 80778) POSITIVE GONORRHEA, NAAT, URINE (test code = 38168) NEGATIVE Darryl Ackerman AustinHIV 1/2 4TH GEN, RFLX [id number] 00:00:00* Test Item Value Reference Range Interpretation Comme nts HIV 1/2 4TH GEN, RFLX CONF ( test code = 3514) NON-REACTIVE Darryl WaggonerVAGINAL PATHOGENS DNA [id number] 00:00:00* Test Item Value Reference Range Interpretation Comme nts JAZ SPECIES (test code = 86068) NEGATIVE G. VAGINALIS (test code = 47945) NEGATIVE T. VAGINALIS (test code = 66097) NEGATIVE Darryl WaggonerHPV HIGH RISK WITH GENOTYPE, [id number] 00:00:00* Test Item Value Reference Range Interpretation Comme nts HPV HIGH RISK INTERP (test c ode = 41406) POSITIVE HPV 16 (test code = 63199) POSITIVE HPV 18 (test code = 85362) NEGATIVE HPV, HR, OTHER GENOTYPES (te st code = 80438) NEGATIVE PDFE (test code = PDFReport) PDF Darryl Ackerman AustinRPR REFLEX TO T. PALLIDUM - [id number] 00:00:00* Test Item Value Reference Range Interpretation Comme nts RPR (test code = 47737) NON-REACTIVE RPR TITER (test code = 3500) NOT INDIC. TITER Darryl Ackerman AustinCT/NG, TMA, [id number] 00:00:00* Test Item Value Reference Range Interpretation Comme nts CHLAMYDIA, NAAT, URINE (test code = 73016) POSITIVE GONORRHEA, NAAT, URINE (test code = 75910) NEGATIVE Darryl Ackerman AustinHIV 1/2 4TH GEN, RFLX [id number] 00:00:00* Test Item Value Reference Range Interpretation Comme nts HIV 1/2 4TH GEN, RFLX CONF ( test code = 3514) NON-REACTIVE Darryl Ackerman AustinVAGINAL PATHOGENS DNA [id number] 00:00:00* Test Item Value Reference Range Interpretation Comme nts JAZ SPECIES (test code = ) NEGATIVE G. VAGINALIS (test code = 95596) NEGATIVE T. VAGINALIS (test code = 13843) NEGATIVE Darryl Ackerman AustinHPV HIGH RISK WITH GENOTYPE, [id number] 00:00:00* Test Item Value Reference Range Interpretation Comme nts HPV HIGH RISK INTERP (test c ode = 22839) POSITIVE HPV 16 (test code = 37302) POSITIVE HPV 18 (test code = 41890) NEGATIVE HPV, HR, OTHER GENOTYPES (te st code = 44477) NEGATIVE PDFE (test code = PDFReport) PDF Darryl Ackerman AustinRPR REFLEX TO T. PALLIDUM - [id number] 00:00:00* Test Item Value Reference Range Interpretation Comme nts RPR (test code = 92859) NON-REACTIVE RPR TITER (test code = 3500) NOT INDIC. TITER Darryl Ackerman AustinCT/NG, TMA, [id number] 00:00:00* Test Item Value Reference Range Interpretation Comme nts CHLAMYDIA, NAAT, URINE (test code = 13543) POSITIVE GONORRHEA, NAAT, URINE (test code = 38708) NEGATIVE Darryl WaggonerHIV 1/2 4TH GEN, RFLX [id number] 00:00:00* Test Item Value Reference Range Interpretation Comme nts HIV 1/2 4TH GEN, RFLX CONF ( test code = 3514) NON-REACTIVE Darryl Ackerman AustinVAGINAL PATHOGENS DNA [id number] 00:00:00* Test Item Value Reference Range Interpretation Comme nts JAZ SPECIES (test code = ) NEGATIVE G. VAGINALIS (test code = 31696) NEGATIVE T. VAGINALIS (test code = 31672) NEGATIVE Darryl Ackerman AustinRPR REFLEX TO T. PALLIDUM - [id number] 00:00:00* Test Item Value Reference Range Interpretation Comme nts RPR (test code = 44989) NON-REACTIVE RPR TITER (test code = 3500) NOT INDIC. TITER Darryl Ackerman AustinHPV HIGH RISK WITH GENOTYPE, [id number] 00:00:00* Test Item Value Reference Range Interpretation Comme nts HPV HIGH RISK INTERP (test c ode = 41389) POSITIVE HPV 16 (test code = 62456) POSITIVE HPV 18 (test code = 65436) NEGATIVE HPV, HR, OTHER GENOTYPES (te st code = 09284) NEGATIVE PDFE (test code = PDFReport) PDF Darryl Ackerman AustinCT/NG, TMA, [id number] 00:00:00* Test Item Value Reference Range Interpretation Comme nts CHLAMYDIA, NAAT, URINE (test code = 41627) POSITIVE GONORRHEA, NAAT, URINE (test code = 92000) NEGATIVE Darryl Ackerman AustinHIV 1/2 4TH GEN, RFLX [id number] 00:00:00* Test Item Value Reference Range Interpretation Comme nts HIV 1/2 4TH GEN, RFLX CONF ( test code = 3514) NON-REACTIVE Darryl Ackerman AustinVAGINAL PATHOGENS DNA [id number] 00:00:00* Test Item Value Reference Range Interpretation Comme nts JAZ SPECIES (test code = 24697) NEGATIVE G. VAGINALIS (test code = 43346) NEGATIVE T. VAGINALIS (test code = 64486) NEGATIVE Darryl Ackerman AustinRPR REFLEX TO T. PALLIDUM - [id number] 00:00:00* Test Item Value Reference Range Interpretation Comme nts RPR (test code = 25302) NON-REACTIVE RPR TITER (test code = 3500) NOT INDIC. TITER Darryl Ackerman AustinHPV HIGH RISK WITH GENOTYPE, [id number] 00:00:00* Test Item Value Reference Range Interpretation Comme nts HPV HIGH RISK INTERP (test c ode = 74499) POSITIVE HPV 16 (test code = 24085) POSITIVE HPV 18 (test code = 29150) NEGATIVE HPV, HR, OTHER GENOTYPES (te st code = 00548) NEGATIVE PDFE (test code = PDFReport) PDF Darryl Ackerman AustinCT/NG, TMA, [id number] 00:00:00* Test Item Value Reference Range Interpretation Comme nts CHLAMYDIA, NAAT, URINE (test code = 07629) POSITIVE GONORRHEA, NAAT, URINE (test code = 77406) NEGATIVE Darryl Ackerman AustinVAGINAL PATHOGENS DNA [id number] 00:00:00* Test Item Value Reference Range Interpretation Comme nts JAZ SPECIES (test code = 58038) NEGATIVE G. VAGINALIS (test code = 69518) NEGATIVE T. VAGINALIS (test code = 63427) NEGATIVE Darryl Ackerman AustinHIV 1/2 4TH GEN, RFLX [id number] 00:00:00* Test Item Value Reference Range Interpretation Comme nts HIV 1/2 4TH GEN, RFLX CONF ( test code = 3514) NON-REACTIVE Darryl Ackerman AustinRPR REFLEX TO T. PALLIDUM - [id number] 00:00:00* Test Item Value Reference Range Interpretation Comme nts RPR (test code = 81202) NON-REACTIVE RPR TITER (test code = 3500) NOT INDIC. TITER Darryl WaggonerHPV HIGH RISK WITH GENOTYPE, [id number] 00:00:00* Test Item Value Reference Range Interpretation Comme nts HPV HIGH RISK INTERP (test c ode = 85224) POSITIVE HPV 16 (test code = 81677) POSITIVE HPV 18 (test code = 24632) NEGATIVE HPV, HR, OTHER GENOTYPES (te st code = 43562) NEGATIVE PDFE (test code = PDFReport) PDF Darryl Ackerman AustinCT/NG, TMA, [id number] 00:00:00* Test Item Value Reference Range Interpretation Comme nts CHLAMYDIA, NAAT, URINE (test code = 67751) POSITIVE GONORRHEA, NAAT, URINE (test code = 20383) NEGATIVE Darryl WaggonerVAGINAL PATHOGENS DNA [id number] 00:00:00* Test Item Value Reference Range Interpretation Comme nts JAZ SPECIES (test code = 47307) NEGATIVE G. VAGINALIS (test code = 85209) NEGATIVE T. VAGINALIS (test code = 41558) NEGATIVE Darryl Ackerman AustinHIV 1/2 4TH GEN, RFLX [id number] 00:00:00* Test Item Value Reference Range Interpretation Comme nts HIV 1/2 4TH GEN, RFLX CONF ( test code = 3514) NON-REACTIVE Darryl Ackerman AustinRPR REFLEX TO T. PALLIDUM - [id number] 00:00:00* Test Item Value Reference Range Interpretation Comme nts RPR (test code = 64976) NON-REACTIVE RPR TITER (test code = 3500) NOT INDIC. TITER Darryl WaggonerHPV HIGH RISK WITH GENOTYPE, [id number] 00:00:00* Test Item Value Reference Range Interpretation Comme nts HPV HIGH RISK INTERP (test c ode = 02059) POSITIVE HPV 16 (test code = 44230) POSITIVE HPV 18 (test code = 72655) NEGATIVE HPV, HR, OTHER GENOTYPES (te st code = 66630) NEGATIVE PDFE (test code = PDFReport) PDF Darryl WaggonerCT/NG, TMA, [id number] 00:00:00* Test Item Value Reference Range Interpretation Comme nts CHLAMYDIA, NAAT, URINE (test code = 61788) POSITIVE GONORRHEA, NAAT, URINE (test code = 53910) NEGATIVE Darryl WaggonerHIV 1/2 4TH GEN, RFLX [id number] 00:00:00* Test Item Value Reference Range Interpretation Comme nts HIV 1/2 4TH GEN, RFLX CONF ( test code = 3514) NON-REACTIVE Darryl WaggonerVAGINAL PATHOGENS DNA [id number] 00:00:00* Test Item Value Reference Range Interpretation Comme nts JAZ SPECIES (test code = 04140) NEGATIVE G. VAGINALIS (test code = 45229) NEGATIVE T. VAGINALIS (test code = 07637) NEGATIVE Darryl WaggonerCOMP. METABOLIC PANEL ([id number] 07:12:09* Test Item Value Reference Range Interpretation Comme nts NA (test code = 4571324985) 138 mmol/L 135-145 K (test code = 4168818100) 3.6 mmol/L 3.5-5.0 CL (test code = 4449283509) 105 mmol/L 98-108 CO2 TOTAL (test code = 4932481491) 24 mmol/L 23-31 AGAP (test code = 6714833886) 9 2-16 BUN (test code = 9597430363) 8 mg/dL 7-23 GLUCOSE (test code = 6151059510) 94 mg/dL 70-110 CREATININE (test code = 4359911881) 0.90 mg/dL 0.50-1.04 TOTAL BILI (test code = 7431646633) 0.5 mg/dL 0.1-1.1 CALCIUM (test code = 8042856565) 9.2 mg/dL 8.6-10.6 T PROTEIN (test code = 3456773028) 7.8 g/dL 6.3-8.2 ALBUMIN (test code = 4196993788) 4.3 g/dL 3.5-5.0 ALK PHOS (test code = 1491070635) 91 U/L 34-122 ALTv (test code = 1742-6) 32 U/L 5-35 AST(SGOT) (test code = 0021037921) 48 U/L 13-40 H eGFR (test code = 3879894722) 73.0 mL/min/1.73m2 ELIA (test code = ELIA) [...] imaging tests). Lab Interpretation (test code = 52743-3) Abnormal [facility] WITH [id number] 06:45:45* Test Item Value Reference Range Interpretation [...] g/dL 31.6-35.1 L RDW-SD (test code = 39862-8) 49.8 fL 39.0-49.9 RDW-CV (test code = 788-0) 18.3 % 12.0-15.5 H PLT (test code = 777-3) 391 See_Comment H [Automated messa ge] The system which generated this result transmitted reference range: 166 - 358 10*3/?L. The reference range was not used to interpret this result as normal/abnormal. MPV (test code = 81641-7) 10.3 fL 9.5-12.9 NRBC/100 WBC (test code = 8680016142) 0.0 See_Comment [Automated [employer] ssage] The system which generated this result transmitted reference range: 0.0 - 10.0 /100 WBCs. The reference range was not used to interpret this result as normal/abnormal. NRBC x10^3 (test code = 6626297077) See_Comment [Automated messa ge] The system which generated this result transmitted reference range: 10*3/?L. The reference range was not used to interpret this result as normal/abnormal. GRAN MAT (NEUT) % (test code = 770-8) 47.8 % IMM GRAN % (test code = 6728710451) 0.30 % LYMPH % (test code = 736-9) 39.1 % MONO % (test code = 5905-5) 8.5 % EOS % (test code = 713-8) 3.5 % BASO % (test code = 706-2) 0.8 % GRAN MAT x10^3(ANC) (test code = 5626185649) 3.73 10*3/uL 1.88-7.09 IMM GRAN x10^3 (test code = 3904499681) 0.00-0.06 LYMPH x10^3 (test code = 731-0) 3.04 10*3/uL 1.32-3.29 MONO x10^3 (test code = 742-7) 0.66 10*3/uL 0.33-0.92 EOS x10^3 (test code = 711-2) 0.27 10*3/uL 0.03-0.39 BASO x10^3 (test code = 704-7) 0.06 10*3/uL 0.01-0.07 Lab Interpretation (test code = 10564-9) Abnormal [facility] [id number] 06:40:00* Test Item Value Reference Range Interpretation Comme nts POCT PREG (test code = 1605) Negative On board controls acceptable with C Line (test code = 3574) Yes POCT PREG LOT # (test code = 3575) [id number] POCT PREG TEST DATE ( test code = 3576) 10/17/2024 Lab Interpretation (test cod e = 84778-5) Normal [facility] [id number] 06:17:00* Test Item Value Reference Range Interpretation Comme nts POCT PREG (test code = 1605) Negative On board controls acceptable with C Line (test code = 3574) Present POCT PREG LOT # (test code = 3575) [id number] POCT PREG TEST DATE ( test code = 3576) Lab Interpretation (test cod e = 97801-4) Normal [facility] [id number] 18:58:00* Test Item Value Reference Range Interpretation Comme nts POCT PREG (test code = 1605) negative Lab Interpretation (test cod e = 25773-1) Normal [facility] WITH [id number] 13:14:57* Test Item Value Reference Range Interpretation [...] g/dL 31.6-35.1 L RDW-SD (test code = 94903-1) 46.2 fL 39-49.9 RDW-CV (test code = 788-0) 17.0 % 12-15.5 H PLT (test code = 777-3) See_Comment H [Automated messa ge] The system which generated this result transmitted reference range: 166 - 358 10*3/?L. The reference range was not used to interpret this result as normal/abnormal. MPV (test code = 50713-6) 9.1 fL 9.5-12.9 L NRBC/100 WBC (test code = 9457682411) See_Comment [Automated me ssage] The system which generated this result transmitted reference range: 0.0 - 10.0 /100 WBCs. The reference range was not used to interpret this result as normal/abnormal. NRBC x10^3 (test code = 8890996797) See_Comment [Automated messa ge] The system which generated this result transmitted reference range: 10*3/?L. The reference range was not used to interpret this result as normal/abnormal. GRAN MAT (NEUT) % (test code = 770-8) 51.3 % IMM GRAN % (test code = 1505030475) 0.40 % LYMPH % (test code = 736-9) 37.0 % MONO % (test code = 5905-5) 8.5 % EOS % (test code = 713-8) 2.2 % BASO % (test code = 706-2) 0.6 % GRAN MAT x10^3(ANC) (test code = 3653258566) 4.26 10*3/uL 1.88-7.09 IMM GRAN x10^3 (test code = 0223023822) 0.03 10*3/uL 0-0.06 LYMPH x10^3 (test code = 731-0) 3.06 10*3/uL 1.32-3.29 MONO x10^3 (test code = 742-7) 0.70 10*3/uL 0.33-0.92 EOS x10^3 (test code = 711-2) 0.18 10*3/uL 0.03-0.39 BASO x10^3 (test code = 704-7) 0.05 10*3/uL 0.01-0.07 Lab Interpretation (test code = 05096-1) Abnormal [facility] [id number] 12:55:00* Test Item Value Reference Range Interpretation Comme nts POCT PREG (test code = 1605) negative On board controls acceptable with C Line (test code = 3574) present Lab Interpretation (test cod e = 33868-8) Normal [facility] [id number] 20:49:00* Test Item Value Reference Range Interpretation Comme nts POCT PREG (test code = 1605) negative On board controls acceptable with C Line (test code = 3574) yes POCT PREG LOT # (test code = 3575) [id number] POCT PREG TEST DATE ( test code = 3576) 08/14/2023 Lab Interpretation (test cod e = 69183-2) [facility] [id number] 08:01:55* Test Item Value Reference Range Interpretation Comme nts NA (test code = 1802914188) 138 mmol/L 135-145 K (test code = 7517562246) 4.2 mmol/L 3.5-5 CL (test code = 9415247133) 107 mmol/L 98-108 CO2 TOTAL (test code = 4723235172) 20 mmol/L 23-31 L AGAP (test code = 7726361952) 2-16 BUN (test code = 7421731541) 10 mg/dL 7-23 GLUCOSE (test code = 9564683418) 105 mg/dL 70-110 CREATININE (test code = 8092712716) 0.86 mg/dL 0.5-1.04 TOTAL BILI (test code = 7900648535) 0.1-1.1 L CALCIUM (test code = 5954864080) 9.1 mg/dL 8.6-10.6 T PROTEIN (test code = 0218312745) 7.4 g/dL 6.3-8.2 ALBUMIN (test code = 2979138446) 4.8 g/dL 3.5-5 ALK PHOS (test code = 2018667389) 81 U/L 34-122 ALTv (test code = 1742-6) 17 U/L 5-35 AST(SGOT) (test code = 9324926250) 19 U/L 13-40 eGFR (test code = 7244369354) mL/min/1.73m2 ELIA (test code = ELIA) Association [...] imaging tests). Lab Interpretation (test code = 66596-5) Abnormal [facility] CampusLipase, [id number] 07:59:48* Test Item Value Reference Range Interpretation Comme nts LIPASE (test code = 6482703998) 94 U/L 0-220 Lab Interpretation (test cod e = 72670-1) Normal [facility] CampusCBC with [id number] 07:47:29* Test Item Value Reference Range Interpretation Comme nts WBC (test code = 6690-2) See_Comment [Automated [employer]] The system which generated this result transmitted reference range: 4.30 - 11.10 10*3/?L. The reference range was not used to interpret this result as normal/abnormal. RBC (test code = 789-8) See_Comment [Automated [employer]] The system which generated this result transmitted [...] g/dL 31.6-35.1 L RDW-SD (test code = 78897-8) 40.2 fL 39-49.9 RDW-CV (test code = 788-0) 15.0 % 12-15.5 PLT (test code = 777-3) See_Comment [Automated messa ge] The system which generated this result transmitted reference range: 166 - 358 10*3/?L. The reference range was not used to interpret this result as normal/abnormal. MPV (test code = 78589-9) 10.1 fL 9.5-12.9 NRBC/100 WBC (test code = 1330630803) See_Comment [Automated me ssage] The system which generated this result transmitted reference range: 0.0 - 10.0 /100 WBCs. The reference range was not used to interpret this result as normal/abnormal. NRBC x10^3 (test code = 4389238769) See_Comment [Automated messa ge] The system which generated this result transmitted reference range: 10*3/?L. The reference range was not used to interpret this result as normal/abnormal. GRAN MAT (NEUT) % (test code = 770-8) 46.6 % IMM GRAN % (test code = 6252287623) 0.40 % LYMPH % (test code = 736-9) 40.7 % MONO % (test code = 5905-5) 8.6 % EOS % (test code = 713-8) 3.3 % BASO % (test code = 706-2) 0.4 % GRAN MAT x10^3(ANC) (test code = 5573286170) 3.40 10*3/uL 1.88-7.09 IMM GRAN x10^3 (test code = 6095406157) 0.03 10*3/uL 0-0.06 LYMPH x10^3 (test code = 731-0) 2.97 10*3/uL 1.32-3.29 MONO x10^3 (test code = 742-7) 0.63 10*3/uL 0.33-0.92 EOS x10^3 (test code = 711-2) 0.24 10*3/uL 0.03-0.39 BASO x10^3 (test code = 704-7) 0.03 10*3/uL 0.01-0.07 Lab Interpretation (test code = 82020-9) Abnormal [facility] CampusPORI [id number] 07:37:00* Test Item Value Reference Range Interpretation Comme nts POCT PREG (test code = 1605) Negative On board controls acceptable with C Line (test code = 3574) Present POCT PREG LOT # (test code = 3575) [id number] POCT PREG TEST DATE ( test code = 3576) 08/14/2023 Lab Interpretation (test cod e = 11207-4) [facility] [id number] 22:19:00* Test Item Value Reference Range Interpretation Comme nts POCT PREG (test code = 1605) NEGATIVE On board controls acceptable with C Line (test code = 3574) present POCT PREG LOT # (test code = 3575) [id number] POCT PREG TEST DATE ( test code = 3576) 07/14/2023 Lab Interpretation (test cod e = 45966-9) [facility] [id number] 19:54:00* Test Item Value Reference Range Interpretation Comme nts POCT PREG (test code = 1605) negative On board controls acceptable with C Line (test code = 3574) present POCT PREG LOT # (test code = 3575) [id number] POCT PREG TEST DATE ( test code = 3576) 12/12/2022 Lab Interpretation (test cod e = 25839-0) [facility]:28[facility]44* Test Item Value Reference Range Interpretation Comme nts FERRITIN (test code = 2075) 3 NG/ML 13-200 L [id number] 04:37:13* Test Item Value Reference Range Interpretation Comme nts TRANSFERRIN (test code = 4936) 385 MG/DL 200-360 H UNLESS OTHERWISE INDICATED, ALL TESTING PERFOR[facility] [address] [place] [address] ADMISSIONS COORDINATOR: NICOLE GUSMAN M.D. CLIA NUMBER [id number] [facility] [place]. [id number] IRON BINDING CAPACITY AND IRON AND % [id number] 04:19:01* Test Item Value Reference Range Interpretation Comme nts IRON, SERUM (test code = 2222) 11 UG/DL 37-145 L UNSATURATED IBC (test code = 85850) 442 UG/DL 112-347 H CALC TOTAL IBC (test code = 2077) 453 UG/DL 250-450 H CALC % IRON SAT (test code = 2078) 2 % 20-50 L IRON BINDING CAPACITY AND IRON AND % [id number] 00:00:00* Test Item Value Reference Range Interpretation Comme nts IRON, SERUM (test code = 2) 11 UG/DL UNSATURATED IBC (test code = 02090) 442 UG/DL CALC TOTAL IBC (test code = 7) 453 UG/DL CALC % IRON SAT (test code = 9) 2 % Darryl F HufstdZOPHWXRY7849-81-01 00:00:00* Test Item Value Reference Range Interpretation Comme nts FERRITIN (test code = 2074) 3 NG/ML Darryl F [id number] 00:00:00* Test Item Value Reference Range Interpretation Comme nts TRANSFERRIN (test code = 4936) 385 MG/DL Darryl F AustinIRON BINDING CAPACITY AND IRON AND % [id number] 00:00:00* Test Item Value Reference Range Interpretation Comme nts IRON, SERUM (test code = 2221) 11 UG/DL UNSATURATED IBC (test code = 79725) 442 UG/DL CALC TOTAL IBC (test code = 2076) 453 UG/DL CALC % IRON SAT (test code = 2078) 2 % Darryl F [id number] 00:00:00* Test Item Value Reference Range Interpretation Comme nts FERRITIN (test code = 2074) 3 NG/ML Darryl F [id number] 00:00:00* Test Item Value Reference Range Interpretation Comme nts TRANSFERRIN (test code = 4936) 385 MG/DL Darryl F AustinIRON BINDING CAPACITY AND IRON AND % [id number] 00:00:00* Test Item Value Reference Range Interpretation Comme nts IRON, SERUM (test code = 2221) 11 UG/DL UNSATURATED IBC (test code = 84650) 442 UG/DL CALC TOTAL IBC (test code = 7) 453 UG/DL CALC % IRON SAT (test code = 9) 2 % Darryl F [id number] 00:00:00* Test Item Value Reference Range Interpretation Comme nts FERRITIN (test code = 2074) 3 NG/ML Darryl F [id number] 00:00:00* Test Item Value Reference Range Interpretation Comme nts TRANSFERRIN (test code = 4936) 385 MG/DL Darryl F AustinIRON BINDING CAPACITY AND IRON AND % [id number] 00:00:00* Test Item Value Reference Range Interpretation Comme nts IRON, SERUM (test code = 2222) 11 UG/DL UNSATURATED IBC (test code = 36757) 442 UG/DL CALC TOTAL IBC (test code = 7) 453 UG/DL CALC % IRON SAT (test code = 2079) 2 % Darryl F [id number] 00:00:00* Test Item Value Reference Range Interpretation Comme nts FERRITIN (test code = 2074) 3 NG/ML Darryl F [id number] 00:00:00* Test Item Value Reference Range Interpretation Comme nts TRANSFERRIN (test code = 4936) 385 MG/DL Darryl F AustinIRON BINDING CAPACITY AND IRON AND % [id number] 00:00:00* Test Item Value Reference Range Interpretation Comme nts IRON, SERUM (test code = 2222) 11 UG/DL UNSATURATED IBC (test code = 95228) 442 UG/DL CALC TOTAL IBC (test code = 7) 453 UG/DL CALC % IRON SAT (test code = 9) 2 % Darryl F [id number] 00:00:00* Test Item Value Reference Range Interpretation Comme nts FERRITIN (test code = 5) 3 NG/ML Darryl F [id number] 00:00:00* Test Item Value Reference Range Interpretation Comme nts TRANSFERRIN (test code = 4936) 385 MG/DL Darryl F AustinIRON BINDING CAPACITY AND IRON AND % [id number] 00:00:00* Test Item Value Reference Range Interpretation Comme nts IRON, SERUM (test code = 2222) 11 UG/DL UNSATURATED IBC (test code = 14675) 442 UG/DL CALC TOTAL IBC (test code = 7) 453 UG/DL CALC % IRON SAT (test code = 2079) 2 % Darryl F [id number] 00:00:00* Test Item Value Reference Range Interpretation Comme nts FERRITIN (test code = 5) 3 NG/ML Darryl F [id number] 00:00:00* Test Item Value Reference Range Interpretation Comme nts TRANSFERRIN (test code = 4936) 385 MG/DL Darryl F AustinIRON BINDING CAPACITY AND IRON AND % [id number] 00:00:00* Test Item Value Reference Range Interpretation Comme nts IRON, SERUM (test code = 2222) 11 UG/DL UNSATURATED IBC (test code = 99295) 442 UG/DL CALC TOTAL IBC (test code = 7) 453 UG/DL CALC % IRON SAT (test code = 2079) 2 % Darryl F [id number] 00:00:00* Test Item Value Reference Range Interpretation Comme nts FERRITIN (test code = 2074) 3 NG/ML Darryl F [id number] 00:00:00* Test Item Value Reference Range Interpretation Comme nts TRANSFERRIN (test code = 4936) 385 MG/DL Darryl F AustinIRON BINDING CAPACITY AND IRON AND % [id number] 00:00:00* Test Item Value Reference Range Interpretation Comme nts IRON, SERUM (test code = 2222) 11 UG/DL UNSATURATED IBC (test code = 00254) 442 UG/DL CALC TOTAL IBC (test code = 7) 453 UG/DL CALC % IRON SAT (test code = 9) 2 % Darryl F [id number] 00:00:00* Test Item Value Reference Range Interpretation Comme nts FERRITIN (test code = 2074) 3 NG/ML Darryl F [id number] 00:00:00* Test Item Value Reference Range Interpretation Comme nts TRANSFERRIN (test code = 4936) 385 MG/DL Darryl F AustinIRON BINDING CAPACITY AND IRON AND % [id number] 00:00:00* Test Item Value Reference Range Interpretation Comme nts IRON, SERUM (test code = 2222) 11 UG/DL UNSATURATED IBC (test code = 95430) 442 UG/DL CALC TOTAL IBC (test code = 2077) 453 UG/DL CALC % IRON SAT (test code = 2079) 2 % [id number] 00:00:00* Test Item Value Reference Range Interpretation Comme nts FERRITIN (test code = 5) 3 NG/ML [id number] 00:00:00* Test Item Value Reference Range Interpretation Comme nts TRANSFERRIN (test code = 4936) 385 MG/DL IRON BINDING CAPACITY AND IRON AND % [id number] 00:00:00* Test Item Value Reference Range Interpretation Comme nts IRON, SERUM (test code = 2222) 11 UG/DL UNSATURATED IBC (test code = 84544) 442 UG/DL CALC TOTAL IBC (test code = 2077) 453 UG/DL CALC % IRON SAT (test code = 2079) 2 % [id number] 00:00:00* Test Item Value Reference Range Interpretation Comme nts FERRITIN (test code = 2075) 3 NG/ML [id number] 00:00:00* Test Item Value Reference Range Interpretation Comme nts TRANSFERRIN (test code = 4936) 385 MG/DL TSH, THIRD [id number] 06:15:03* Test Item Value Reference Range Interpretation Comme nts TSH, THIRD GENERATION (test code = 2821) 0.675 UIU/ML 0.400-4.100 UNLESS OTHERWISE INDICATED, ALL TESTING PERFORMED [facility] [address] [place] [address] ADMISSIONS COORDINATOR: NICOLE GUSMAN M.D. CLIA NUMBER [id number] [facility] [place]. [id number] CBC W/AUTO DIFF WITH [id number] 02:57:36* Test Item Value Reference Range Interpretation [...] 0.00-0.10 ABS NUCLEATED RBCS (test code = 76753) 0.00 K/UL 0.00-0.11 [id number] 00:00:00* Test Item Value Reference Range Interpretation Comme nts TSH, THIRD GENERATION (test code = 2821) 0.675 UIU/ML [facility] W/AUTO [id number] 00:00:00* Test Item Value Reference Range Interpretation [...] ABS NUCLEATED RBCS (test cod e = 42369) 0.00 K/UL Darryl [id number] 00:00:00* Test Item Value Reference Range Interpretation Comme nts TSH, THIRD GENERATION (test code = 2821) 0.675 UIU/ML Darryl WaggonerCBC W/AUTO [id number] 00:00:00* Test Item Value Reference Range Interpretation [...] ABS NUCLEATED RBCS (test cod e = 73846) 0.00 K/UL Darryl [id number] 00:00:00* Test Item Value Reference Range Interpretation Comme nts TSH, THIRD GENERATION (test code = 2821) 0.675 UIU/ML Darryl WaggonerCBC W/AUTO [id number] 00:00:00* Test Item Value Reference Range Interpretation [...] ABS NUCLEATED RBCS (test cod e = 48373) 0.00 K/UL Darryl [id number] 00:00:00* Test Item Value Reference Range Interpretation Comme nts TSH, THIRD GENERATION (test code = 2821) 0.675 UIU/ML Darryl WaggonerCBC W/AUTO [id number] 00:00:00* Test Item Value Reference Range Interpretation [...] ABS NUCLEATED RBCS (test cod e = 21085) 0.00 K/UL Darryl [id number] 00:00:00* Test Item Value Reference Range Interpretation Comme nts TSH, THIRD GENERATION (test code = 2821) 0.675 UIU/ML Darryl WaggonerCBC W/AUTO [id number] 00:00:00* Test Item Value Reference Range Interpretation [...] ABS NUCLEATED RBCS (test cod e = 94374) 0.00 K/UL Darryl Ackerman [id number] 00:00:00* Test Item Value Reference Range Interpretation Comme nts TSH, THIRD GENERATION (test code = 2821) 0.675 UIU/ML Darryl Ackerman [facility] W/AUTO [id number] 00:00:00* Test Item Value Reference Range Interpretation [...] ABS NUCLEATED RBCS (test cod e = 34338) 0.00 K/UL Darryl [id number] 00:00:00* Test Item Value Reference Range Interpretation Comme nts TSH, THIRD GENERATION (test code = 2821) 0.675 UIU/ML Darryl WaggonerCBC W/AUTO [id number] 00:00:00* Test Item Value Reference Range Interpretation [...] ABS NUCLEATED RBCS (test cod e = 94702) 0.00 K/UL Darryl [id number] 00:00:00* Test Item Value Reference Range Interpretation Comme nts TSH, THIRD GENERATION (test code = 2821) 0.675 UIU/ML Darryl WaggonerCBC W/AUTO [id number] 00:00:00* Test Item Value Reference Range Interpretation [...] ABS NUCLEATED RBCS (test cod e = 25986) 0.00 K/UL Darryl WaggonerCBC W/AUTO [id number] 00:00:00* Test Item Value Reference Range Interpretation [...] ABS NUCLEATED RBCS (test cod e = 20382) 0.00 K/UL [id number] 00:00:00* Test Item Value Reference Range Interpretation Comme nts TSH, THIRD GENERATION (test code = 2821) 0.675 UIU/ML CBC W/AUTO [id number] 00:00:00* Test Item Value Reference Range Interpretation [...] ABS NUCLEATED RBCS (test cod e = 93465) 0.00 K/UL [id number] 00:00:00* Test Item Value Reference Range Interpretation Comme nts TSH, THIRD GENERATION (test code = 2821) 0.675 UIU/ML Notes Date/Time Note Provider Source 2025-04-14 11:33:02 Patient given discharge instructions on abdominal pain. Given prescription X 1 for bentyl. Pt advised to follow up with pcp. Pt left ER ambulatory, no signs of distress. [facility] [employer] 2025-04-14 08:08:05 Patient states: "I do have GI issues, gastritis and esophagitis. I had to stop taking the meds because it caused my anemia to be worse. I have zofran and take that. I'm just having sharp stabbing pain." Reports pain started Sunday. [facility] 2025-04-14 07:58:00 [facility] Emergency Department Note Patient Name: Mini Zhu Date of : 1990 34 year old female Treatment Room: [facility] Primary Care Physician: Lorraine Blanco Patient [...] anemia. She has not yet consulted her configuration analyst to discuss alternative treatments, with an appointment [...] 0.01 - 0.07 10*3/uL COMP. METABOLIC PANEL (67516) - Abnormal NA 138 135 - 145 [...] contrast Cbc with Diff Comp. Metabolic Panel (80847) Lipase POCT Test Urinalysis Orders Placed This [...] Specialty: FAMILY MEDICINE Relationship: PCP - General [address] [place] [id number] Instructions: For follow up of the presenting symptoms. [facility] Specialty: Emergency Medicine [address] [place] [id number] Instructions: If symptoms worsen as documented in the discharge Electronically signed by: Hermilo Ricks DO 04/14/25 1109 [facility] 2025-03-09 02:45:01 Pt given printed and [...] steady gait, in no apparent distress, T [facility] 2025-03-08 21:30:20 Pt arrived ambulatory without assist. Pt with her, okay to discuss care with him. Pt c/o migraine that started today and left ovary pain since Sunday. Duyen Pereira RN [facility] 2025-01-27 13:53:03 Pt given printed and [...] steady gait, in no apparent distress, T [facility] 2025-01-27 12:24:45 Patient arrived ambulatory c/o headache that started approximately at midnight associated with vomiting and sensitivity to lights. Patient attempted to take ibuprofen when she vomited the medication. Patient has frequent headaches and diagnosed with chronic migraines. AT Celina Proctor RN [facility] 2025-01-21 08:15:25 Pt has been scheduled Tanya Velasco [facility] 2025-01-19 13:34:00 Mini Zhu is a 34 year old female Patient returning missed call to schedule PGY appointment. She states she did not have any voicemails. Please advise [facility] 2025-01-17 04:21:41 Awake, alert oriented X4, [...] with steady gait. T Senia Narvaez RN [facility] 2025-01-17 02:22:34 Cc: abdominal pain, N/V, and migraine began at 11PM 01/16 T [facility] 2025-01-16 10:05:56 2nd attempt no answer T Tanya Velasco [facility] 2025-01-15 12:25:21 1st attempt to contact pt, no answer T [facility] 2025-01-13 10:37:29 Mini Zhu is a 34 year old female Pt calling wanting to r/s her appt that was scheduled for 01/16/25. Please assist [phone] (home) [phone] (work) [facility] 2025-01-05 09:43:48 Pt given printed and [...] Left with spouse. T Trista Coronel RN [facility] 2025-01-05 09:27:55 [facility] ED Transfer of Care Note. Off-going Physician: [...] components within normal limits COMP. METABOLIC PANEL (27430) - Abnormal; Notable for the following components: [...] Disposition Discharge Condition Stable Comment -- T [facility] 2025-01-05 08:39:35 Patient given ice water to po challenge . [facility] Celina Proctor RN [facility] 2025-01-05 07:05:00 Nurse Report Report received from LINA Martines. Chief complaint, assessment findings, and orders reviewed. Plan of care discussed with both nurses. Trista Coronel RN [facility] 2025-01-05 05:35:15 Patient up using the bathroom, ambulated independently with a steady gait. Back to bed, on monitor, updated on plan of care. Call light within reach. Bobbi Siddiqi RN [facility] 2025-01-05 05:09:11 C/o cough, body aches, chills, vomiting, nausea, diarrhea x4 days Feels like she's been running a fever but has no thermometer Jess Gonzalez RN [facility] 2024-12-18 01:21:52 Awake, alert oriented X4, [...] upon discharge Pt ambulated to [facility] with steady gait ORTHOPAEDIC Kait Seay RN [facility]2025-03-05 23:49:02 Patient arrived ambulatory to ED c/o right sided migraine that worsened tonight. Oral sx on 12/05, had three teeth taken out. Abx have been finished already. Vomited tonight and made her migraine worse. Patient states Zofran is not working anymore. [facility]OPA[facility]IC [facility] HospitalUvbuve5417-19-82 00:00:00 Darryl Arriaga [facility]2025-02-13 00:00:00 Darryl Arriaga [facility]2025-02-04 22:45:36 Pt given printed and verbal [...] without assist, in no apparent distress, Durand [facility] / [id number] 20:59:33 CC: R sided jaw pain that radiates down her neck. Pain began at 9PM. Took Ibu 800mg at 2PM, applying warm/cold compress Patel [facility] / [id number] 20:55:00 [facility] Emergency Department Note Patient Name: Mini Zhu Date of : 1990 33 year old female Treatment Room: [place] [address] Primary Care Physician: Rachelle Darryl [facility] Patient Escorted by: Family [5] Mode of Arrival: Personal means [1] EMS Treatment Prior to ED Arrival: SPEECH LANGUAGE PATHOLOGIST treatment: Other (comment) SPEECH LANGUAGE PATHOLOGIST treatment comments: See triage note Travel and [...] [facility] [place] for further management prompting ED visit. History provided by: Patient and medical records sinter feeder used: No Dental Problem Location: Lower Lower [...] (eight) hours as needed for Alternate with [place] for pain scale 1-3. CONTINUE taking these medications which have NOT CHANGED ALBUTEROL 90 MCG/ACTUATION INHALER Inhale 2 Puffs every 4 (four) hours as needed for Wheezing or Shortness of Breath. AZITHROMYCIN (ZITHROMAX Z-RAMESH) 250 MG TABLET Take 2 tablets by mouth SEE-INSTRUCTIONS. Take 500 mg day 1, then 250 mg days 2 to 5. ORKMDEKBNV-DFJFRYJRKWRYJ-NTJO 50-325-40 MG TABLET Take 1 tablet by mouth every 6 (six) hours as needed (Headache). NXFUWUBXBE-DADJUPKKJCNWC-HSLQ 50-325-40 MG TABLET Take 1 tablet by [...] Electronically signed by: Selene Parra MD 11/18/242237 [place] [address]-01-25 22:45:36 ERP MSE patient [place] [address]-01-25 22:35:26 CC: tail bone pain, began today 5PM. Patient states she was horse playing, and got kneed on the tailbone. [facility] Nicole Patel [facility] / [id number] 00:00:00 Darryl [facility]2024-11-11 00:00:00 [facility] 10:46:00 Written/verbal D/c instructions, out of er no distress, [place] 817754-10-11 10:30:00 Pt has had no emesis since arrival [place] 817754-10-11 07:48:10 Mini Zhu is a 33 year old female c/o n/v/d since Sunday, states this morning at 0700 threw up blood, no abdominal pain, states now has a headache, alert cheerful, states hx gastritis, esophagitis and iron def anemia, ran out of pantoprazole and takes iron occasionally. States her bipolar meds aren't staying down either, . [facility] Sheila Starkey [place] 461054-09-25 00:00:00 Darryl Arriaga [facility]2024-09-20 05:48:27 Discharge information given verbally and in writing, including of s/s of when to return to ER Patient denies questions and verbalized understanding. IV discontinued without issue. Pt ambulated off unit with steady gate, vital signs stable, no acute distress. . [facility] Jovana Hooper [place] 461054-09-20 02:26:00 Lower abd pain since midnight, and back pain, pt states she has shingles and has been using tropical cream for tx. [place] 817754-06-04 00:00:00 Darryl Arriaga [facility]2024-05-29 06:06:53 Pt given printed and verbal [...] no apparent distress. Ashly Srivastava [facility] / [id number] 02:07:22 Pt given urine cup and placed in the lobby, pt advice to notify nurse with any other concerns or if symptoms worsen. [facility] HospitalUcdkmr5926-57-05 02:02:32 C/O states that she began vomited blood X5 since midnight. 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 [facility] [id number] 03:51:00 [facility] Emergency Department Note Patient Name: Mini Zhu Date of : 1990 33 year old female Treatment Room: TX5/NE5 Primary Care Physician: Rachelle [facility] Patient Escorted by: Family [5] Mode of Arrival: Personal means [1] EMS Treatment Prior to ED Arrival: SPEECH LANGUAGE PATHOLOGIST treatment: None Travel and Exposure Screening: Symptoms [...] by: Patient, medical records and significant other sinter feeder used: No Abdominal Pain Pain location: Generalized [...] Lab Results: Lab Results COMP. METABOLIC PANEL (03191) - Abnormal Result Value Ref Range NA [...] then 250 mg days 2 to 5. QBWKMNAHUO-YOHKRCKUOLEFK-MKSA 50-325-40 MG TABLET Take 1 tablet by [...] for follow-up Tommie Arita MD Specialty: IM-GASTROENTEROLOGY [facility] [address] [address] Electronically signed by: Selene Parra MD 02/03/24 0658 T [facility] - [id number] 00:43:46 Pt given printed and verbal discharge [...] leaving in no apparent distress, Ashly Gibson [place] 461054-03-20 00:31:47 Pt notified covid test was inconclusive. She refuses additional covid swabbing. She reports continuing head congestion. Dr. Marie in to see pt at this time. [facility] HospitalZrxqtc1032-90-70 22:22:36 Pt arrived ambulatory with c/o congestion. Pt states I have bad congestion, sneezing, coughing and headache. No fever. I vomited once prior to coming to the ED." Duyen Pereira [facility] / [id number] 05:22:47 Awake, alert oriented X4, respiratory even [...] upon discharge Pt [facility] gait Kait Seay [place] 461054-03-13 03:48:35 Pt arrived with c/ migraine headache off-and-on for 7 days. Pt took Midol at 6:30pm. Pt report the Midol help for about 30 minutes then the headache came back. Pt states she has tried Ibu, tylenol, and naproxen but none of these medications have helped her migraine. Niocle Patel RNUT - [id number] 03:43:00 [facility] Emergency Department Note Patient Name: Mini Zhu Date of : 1990 33 year old female Treatment Room: [place] [address] Primary Care Physician: Rachelle [facility] Patient Escorted by: Family [5] Mode of Arrival: Personal means [1] EMS Treatment Prior to ED Arrival: SPEECH LANGUAGE PATHOLOGIST treatment: None Travel and Exposure Screening: Symptoms [...] History provided by: Patient and medical records sinter feeder used: No Headache Pain location: Frontal Quality: [...] this encounter. Orders Placed This Encounter Medications rtzcwalqjp-zssnbpuibzejr-ikfy (ESGIC) 50-325-40 mg tablet 1 tablet First Provider Eval: ED Events Date/Time Event User Comments 12/26/23 6433 Medical Screening Begins SELENE PARRA MD -- [...] Follow-up: Contact information for follow-up Darryl [facility] Relationship: PCP - General [address] [place] [phone] Demetrio Stout MD Specialty: PN-NEUROLOGY [facility] [address] [place] [id number] Electronically signed by: Selene Parra MD 12/26/23439 T [facility] - [id number] 10:50:14 Patient discharged home. Follow up with pcp in 2-3 days. Return with worsening symptoms. Verbalized dc instructions. Signed paper work. Davis [place] 461054-02-06 06:42:12 Bilateral lower abdominal pain on and off for month. Pain started this morning at 1230 and hasn't stopped. Saw by OB, US ordered pt unable to pay for it. Was instructed to got to ER if got worse. Vomited 3 time this am ORTHOPAEDIC Maliha Paniagua [place] 461054-01-29 01:09:27 Pt given printed and verbal discharge [...] steady gait, in no apparent distress. Peraza [place] 461054-01-29 00:35:00 PO challenge completed. Patient tolerating water and crackers. [place] 371424-01-29 00:06:08 Patient arrived ambulatory to ED c/o vomiting. Patient states vomiting up her dinner and then vomiting "bright red chunks." Diarrhea x a couple of days. No medications taken SPEECH LANGUAGE PATHOLOGIST. Keen [place] 461054-01-29 00:03:00 [facility] Emergency Department Note Patient Name: Mini Zhu Date of : 1990 32 year old female Treatment Room: Room/bed info not found Primary Care Physician: Rachelle Waggoner [facility] Patient Escorted by: Family [5] Mode of Arrival: Personal means [1] EMS Treatment Prior to ED Arrival: SPEECH LANGUAGE PATHOLOGIST treatment: None Travel and Exposure Screening: Symptoms [...] 200 mg capsule Comments: Reason for Stopping: rlkzszgadq-atzohlrkxcsgz-nart 50-325-40 mg tablet Comments: Reason for Stopping: megestroL 40 mg tablet Comments: Reason for Stopping: tamsulosin 0.4 mg 24 hr capsule Comments: Reason for Stopping: ketorolac 10 mg tablet Comments: Reason for Stopping: Follow-up: Electronically signed by: Chayo Srivastava DO 11/12/23 0104 [facility]EDIC [facility] HospitalOcxbjw5705-44-41 20:56:44 Pt discharged home, given all education and information regarding s/s of worsening condition; prescription use; pain and fever management as well as the importance of follow up. Pt verbalized understanding. Alert and ambulatory to [facility] with family. [facility] Wilman Felix [facility] / [id number] 20:24:32 Pt arrived ambulatory with complaints of viral symptoms x2 days. Pt is positive and she took home test today and is positive too. Pt was concerned because her fever was 101 and her husbands only hit 100f. Pt has n/v but hasn't taken her Zofran. [facility] Cora Peraza [facility] / NHRMCYfhyqd3848-08-28 06:48:38 Prescriptions provided Pt verbalized understanding of [...] with steady gait, in no apparent distress. [facility] HospitalTrbasm4951-71-89 05:26:28 Pt arrives ambulatory to ED c/o left sided lower abdominal pain. She reports that she came in last week and was found to have multiple gynecological issues and was given multiple prescriptions which she says has not helped her pain issue. LMP: 06/12/2023 Ashly Srivastava RNWilson Memorial HospitalBssetd9356-49-25 05:14:00 [facility] Emergency Department Note Patient Name: Mini Zhu Date of : 1990 32 year old female Treatment Room: [facility] [id number] Primary Care Physician: Rachelle [facility] Patient Escorted by: Family [5] Mode of Arrival: Personal means [1] EMS Treatment Prior to ED Arrival: SPEECH LANGUAGE PATHOLOGIST treatment: None Travel and Exposure Screening: Symptoms [...] by: Patient, medical records and significant other sinter feeder used: No Abdominal Pain Pain location: LLQ [...] (three) times daily as needed for Cough. LRLEGJWAII-UMWSZHFTDXHGB-XIQD 50-325-40 MG TABLET Take 1 tablet by [...] Jaime Rebolledo MD Specialty: ORT-ORTHOPAEDIC SURGERY [address] [facility] [address] Electronically signed by: Selene Parra MD 06/24/23632 T [facility] HospitalWtwjrr8803-62-09 01:30:00 Awake, alert oriented X4, respiratory even [...] ambulated to the lobby with steady gait [place] [address]-09-03 23:50:11 C/O head congestion, chest congestion, body aches, sore throat since last Sunday, pt denies any fever. . [facility] Kait Seay RNChristian [place]ille 58559-09-03 23:45:00 [facility] Emergency Department Note Patient Name: Mini Zhu Date of : 1990 32 year old female Treatment Room: Room/bed info not found Primary Care Physician: [facility] Patient Escorted by: Family [5] Mode of Arrival: Personal means [1] EMS Treatment Prior to ED Arrival: SPEECH LANGUAGE PATHOLOGIST treatment: None Travel and Exposure Screening: Symptoms [...] clinic, negative x2. Recent encounters: 1. 06/11/23. [facility] ED. Pelvic pain. PID prophylaxis in ED. US Pelvis, fibroid, right ovarian cyst, notorsion, thickened endometrium 2. 06/11/23. [facility]. After ED encounter. Previously scheduled appointment. Trichomonas. [...] taking these medications which have NOT CHANGED MRNUZVQLOM-OCCJTTLKNALEB-IVGH 50-325-40 MG TABLET Take 1 tablet by [...] Electronically signed by: Michelle Terry MD 06/18/23112 [facility] - [id number] 04:46:51 Pt given printed and verbal discharge [...] no apparent distress, accompanied by her . [id number] Patient states: "I've been having suprapubic pain for about a week now, worst was since . 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 I took Midol an hour ago for my painbut no relief." T Yenny Blevins [id number] 23:06:00 [facility] ED Transfer of Care Note. Off-going [...] components within normal limits COMP. METABOLIC PANEL (10550) - Abnormal; Notable for the following components: [...] fibroid. Severe endometrial thickening measuring 2.[address] [facility]: [id number] RL: 460 End of report. 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 Lechuga [facility] [id number] Selene Parra MD 06/12/232 [facility] [id number] 04:02:21 Pt given printed and verbal discharge [...] with steady gait, in no apparent distress. [facility]2023-08-14 01:27:07 Pt vomited approx 200ml of water and bile. No blood noted. [facility]2023-08-14 00:35:04 Pt arrived ambulatory with complaints of one episode of vomiting blood. Pt reports she became nauseated and at first threw up bile but then threw up dark red blood. Pt denies dark stools or excessiveNSAID use. Pt has been having intermittent abdominal pain for a week. Hx: Migraines, Bipolar, Anemia Xuan Peraza [facility]
[2025-07-05] MEDS ORDERED: FENTANYL CITR 100 MCG/2 ML ONE ×2 (00:36→01:15)
[2025-07-05 00:55] LABS: Absolute Lymphocytes (CBC) 2.7 K/uL (0.7-4.9); Hematocrit 30.5 % (36.0-45.0); Hemoglobin 9.5 g/dL (12.0-15.0); MCH 22.0 pg (27.0-35.0); MCHC 31.1 g/dL (32.0-36.0); MCV 70.5 fL (80-100); MPV 8.2 fL (7.6-11.3); Nucleated RBC Absolute Count 0.0 (0-0); Nucleated Red Blood Cells % 0.0 % (0-0); RBC Red Blood Cell Count 4.32 M/uL (3.86-4.86); White Blood Count 6.60 thou/uL (4.3-10.9)
[2025-07-05 01:26] LABS: ALT/SGPT 25 U/L (13-56); AST/SGOT 11 U/L (15-37); Albumin 3.9 g/dL (3.4-5.0); Albumin/Globulin Ratio 1.1 (1.1-1.8); Alkaline Phosphatase 78 U/L (45-117); Anion Gap 8.7 mEq/L (5.0-15.0); BUN Blood Urea Nitrogen 9 mg/dL (7-18); Globulin 3.7 g/dL (2.3-3.5); Glucose Level 95 mg/dL (74-106); Magnesium 2.1 mg/dL (1.6-2.4); Potassium 3.7 mEq/L (3.5-5.1); Troponin High Sensitivity 3.9 pg/mL (<58.9)
[2025-07-05 01:27] LABS: Bilirubin Indirect, Calculated 0.1 mg/dL (0.2-0.8); C-Reactive Protein < 2.90 mg/L (<3.00)
[2025-07-05] MEDS ORDERED: KETOROLAC 30 MG/ML INJ ONE (01:39)
--- NOTE | 2025-07-05 01:43 | EDPHYS ---
Physician Documentation [facility] Name: Judith Tobar Age: 34 yrs Sex: Female : 1990 Arrival Date: 07/04/2025 Time: 23:15 Bed 20 Private MD: ED Physician Lopez Villafuerte HPI: 07/04 23:40 This 34 yrs old Female presents to ER via Ambulatory with complaints of Breast Problem, cp Arm Pain. 23:40 The patient or guardian reports chest pain that is located primarily in the right cp nipple and right breast. 23:40 The pain does not radiate. cp 23:40 Duration: The patient or guardian reports a single episode, that is still ongoing. cp Patient is a 34-year-old female who presents to the emergency department with complaints of right breast and nipple pain that started tonight about 10:00. She states pain shoots into the breast radiating to the nipple. Pain feels similar to previous diagnosis of mastitis. Patient denies any trauma no real pain into the chest. Patient denies fever, cough, shortness of breath and has not noticed any changes to the breast. 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 - Infectious Disease History:: Denies. - Social history:: Smoking status: Reported history of juuling and/or vaping. ROS: 23:45 Constitutional: Negative for body aches, chills, fever, poor PO intake, cp 23:45 Eyes: Negative for injury, pain, redness, and discharge, cp 23:45 Cardiovascular: Negative for chest pain, edema, palpitations, 23:45 Respiratory: Negative for cough, shortness of breath, wheezing, 23:45 Abdomen/GI: Negative for abdominal pain, vomiting, diarrhea, constipation, 23:45 Back: Negative for pain at rest, pain with movement, 23:45 Skin: Positive for of the right breast and right nipple, pain, 23:45 Neuro: Negative for numbness, 23:45 All other systems are negative, Exam: 23:52 Constitutional: The patient appears in no acute distress, alert, awake, cp non-diaphoretic, non-toxic, well developed, well nourished, uncomfortable, 23:52 Head/Face: Normocephalic, atraumatic. cp 23:52 Eyes: Periorbital structures: appear normal, Conjunctiva: normal, no exudate, no injection, Sclera: no appreciated abnormality, Lids and lashes: appear normal, bilaterally, 23:52 ENT: External ear(s): are unremarkable, Nose: is normal, Mouth: Lips: moist, Oral mucosa: moist, Posterior pharynx: Airway: no evidence of obstruction, patent, 23:52 Chest/axilla: Inspection: normal, Breasts: Exam of the right breast shows nipple partially retracted, no swelling, no erythema. Marked tenderness to right lower lateral breast, but general tenderness of the breast is appreciated. No expression of discharge from the nipple. Examination of the right axilla is negative for any enlarged nodes, masses or swelling, 23:52 Cardiovascular: Rate: tachycardic, Rhythm: regular, 23:52 Respiratory: the patient does not display signs of respiratory distress, Respirations: normal, no use of accessory muscles, no retractions, labored breathing, is not present, Breath sounds: are clear throughout, no decreased breath sounds, no stridor, no wheezing, 23:52 Abdomen/GI: Inspection: abdomen appears normal, Palpation: abdomen is soft and non-tender, in all quadrants, 23:52 Back: pain, is absent, ROM is normal, 23:52 Skin: no rash present. 07/05 00:55 ECG was reviewed by the Attending Physician. cp Vital Signs: 07/04 23:23 BP 126 / 96; Pulse 106; Resp 18; Temp 97.6; Pulse Ox 100% on R/A; Pain 4/10; kb4 07/05 01:08 BP 118 / 90; Pulse 97; Resp 18; Pulse Ox 100% on R/A; kb4 01:55 BP 120 / 86; Pulse 89; Resp 18; Pulse Ox 99% on R/A; kb4 07/04 23:23 Pain Scale: Adult kb4 MDM: 07/04 23:34 Medical Screening Exam initiated cp 07/05 01:42 Data reviewed: vital signs, nurses notes, lab test result(s), EKG, radiologic studies, cp plain films, and as a result, I will discharge patient. 01:42 Differential diagnosis: acute myocardial infarction, acute pericarditis, anxiety, chest cp wall pain, pleurisy, pneumonia, pneumothorax, pulmonary embolus, cellulitis, abscess. I considered the following discharge prescriptions or medication management in the emergency department Medications were administered in the Emergency Department. See MAR. Independent interpretation of the following test(s) in the Emergency Department EKG: See my EKG interpretation above. Counseling: I had a detailed discussion with the patient and/or guardian regarding the historical points, exam findings, and any diagnostic results supporting the discharge/admit diagnosis, lab results, radiology results, the need for outpatient follow up, a family practitioner, to return to the emergency department if symptoms worsen or persist or if there are any questions or concerns that arise at home. Response to treatment: the patient's symptoms have mildly improved after treatment, and as a result, I will discharge patient. ED course: Vital signs stable. Pain improved with meds. Discussed results of today's labs, EKG and radiology studies. Labs were negative for any increased WBC count, CRP was negative. Suspicion for gross mastitis is low but will prescribe Keflex and recommend follow-up in the next 2 to 3 days with her primary physician for reevaluation. 07/05 00:01 Order name: Basic Metabolic Panel; Complete Time: 07/05 01:33 Interpretation: Normal except: CL 112; GFR 82. 07/05 00:01 Order name: CBC with Diff; Complete Time: cp 07/05 01:23 Interpretation: Normal except: HGB 9.5; HCT 30.5; MCV 70.5; MCH 22.0; MCHC 31.1; RDW cp 16.9. 07/05 00: Order name: D-Dimer; Complete Time: : cp 07/05 01: Interpretation: Reviewed. 07/05 00:01 Order name: LFT's; Complete Time: : cp 07/05 01:33 Interpretation: Normal except: AST 11; IBILI, CALC 0.1; GLOB 3.7. 07/05 00:01 Order name: Magnesium; Complete Time: 01:33 cp 07/05 00:01 Order name: Troponin HS; Complete Time: 01:33 cp 07/05 00:01 Order name: CRP; Complete Time: 01:33 cp 07/05 00:01 Order name: XRAY Chest (1 view) cp 07/05 00:01 Order name: Cardiac monitoring; Complete Time: 01:06 cp 07/05 00:01 Order name: EKG - Nurse/Tech; Complete Time: 01:06 cp 07/05 00:01 Order name: IV Saline Lock; Complete Time: 01:06 cp 07/05 00:01 Order name: Labs collected and sent; Complete Time: 01: cp 07/05 00:01 Order name: O2 Per Protocol; Complete Time: 01: cp 07/05 00:01 Order name: O2 Sat Monitoring; Complete Time: 01:06 cp EC:55 Rate is 95 beats/min. Rhythm is regular. RI interval is normal. QRS interval is normal. cp QT interval is normal. T waves are Inverted in lead aVR. Interpreted by me. Reviewed by me. Administered Medications: 00:55 Drug: fentaNYL (PF) IVP 25 mcg IVP once Route: IVP; Site: right antecubital; kb4 01:24 Follow up: Response: No adverse reaction kb4 01:10 CANCELLED (Physician Discretion): [id number] mg IVP once cp 01:24 Drug: fentaNYL (PF) IVP 25 mcg IVP once Route: IVP; Site: right antecubital; kb4 01:38 Follow up: Response: No adverse reaction kb4 01:44 Drug: Ketorolac IVP 15 mg IVP once Route: IVP; Site: right antecubital; kb4 02:03 Follow up: Response: No adverse reaction kb4 01:44 Drug: Droperidol IVP 0.625 mg IVP once Route: IVP; Site: right antecubital; kb4 02:02 Follow up: Response: No adverse reaction kb4 Disposition: 07:51 Co-signature as Attending Physician, Lopez Villafuerte DO I reviewed the patient's care tt7 provided by the Advanced Practice Provider and agree with the diagnosis and treatment plan. Disposition Summary: 07/05/25 01:42 Discharge Ordered Notes: Location: Home cp Problem: new cp Symptoms: have improved cp Condition: Stable cp Diagnosis - Right Breast Pain cp Followup: cp - With: Private Physician - When: 2 - 3 days - Reason: Recheck today's complaints Discharge Instructions: - Discharge Summary Sheet cp - Breast Self-Awareness cp - Breast Tenderness cp Forms: - Medication Reconciliation Form cp - Antibiotic Education cp - Prescription Opioid Use cp - Patient Portal Instructions cp - Leadership Thank You Letter cp Prescriptions: - Cephalexin 500 mg Oral Capsule - take 1 capsule ORAL route every 8 hours for 10 days; 30 capsule; Refills: 0, cp Product Selection Permitted - Diclofenac Sodium 75 mg Oral Tablet Sustained Release - take 1 tablet ORAL route 2 times per day; 30 tablet; Refills: 0, Product cp Selection Permitted Signatures: Dispatcher [employer] EDMS Dick Driscoll PA-C PA-C cp Bowen, Kayla, RN RN kb4 Lopez Villafuerte, DO tt7 Corrections: (The following items were deleted from the chart) 00:02 00:02 BASIC METABOLIC PANEL+C.LAB.BRZ ordered. EDMS EDMS 00:02 00:02 CBC+H.LAB.BRZ ordered. EDMS EDMS 00:02 00:02 D-DIMER+COAG.LAB.BRZ ordered. EDMS EDMS 00:02 00:02 HEPATIC FUNCTION+C.LAB.BRZ ordered. EDMS EDMS 00:02 00:02 MAGNESIUM+C.LAB.BRZ ordered. EDMS EDMS 00:02 00:02 Troponin High Sensitivity+C.LAB.BRZ ordered. EDMS EDMS 00:02 00:02 C-REACTIVE PROTEIN+C.LAB.BRZ ordered. EDMS EDMS 01:10 01:10 Ketorolac IVP 15 mg IVP once ordered. cp cp
--- NOTE | 2025-07-05 01:43 | ER ---
Nurse's Notes [facility] Name: Judith Tobar Age: 34 yrs Sex: Female : 1990 Arrival Date: 07/04/2025 Time: 23:15 Bed 20 Private MD: Diagnosis: Right Breast Pain Presentation: 07/04 23:23 Chief complaint: Patient states: R breast breast/nipple pain that started at 10pm kb4 tonight. Coronavirus screen: At this time, unable to obtain information related to travel outside the [place] Ebola Screen: No symptoms or risks identified at this time. Initial Sepsis Screen: Does the patient meet any 2 criteria? No. Patient's initial sepsis screen is negative. Does the patient have a suspected source of infection? No. Patient's initial sepsis screen is negative. Risk Assessment: Do you want to hurt yourself or someone else? Patient reports no desire to harm self or others. Onset of symptoms was July 04, 2025 at 22:00. 23:23 Method Of Arrival: Ambulatory kb4 23:23 Acuity: SHABBIR 4 kb4 Triage Assessment: 23:26 General: Appears distressed, comfortable, Behavior is cooperative, anxious. Pain: kb4 Complains of pain in right breast. 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 - Infectious Disease History:: Denies. - Social history:: Smoking status: Reported history of juuling and/or vaping. Screenin/21 02:01 [facility] ED Fall Risk Assessment (Adult) History of falling in the last 3 months, kb4 including since admission No falls in past 3 months (0 pts) Confusion or Disorientation No (0 pts) Intoxicated or Sedated No (0 pts) Impaired Gait No (0 pts) Mobility Assist Device Used No (0 pt) Altered Elimination No (0 pt) Score/Fall Risk Level 0 - 2 = Low Risk. Abuse screen: Denies threats or abuse. Denies injuries from another. Nutritional screening: No deficits noted. Tuberculosis screening: No symptoms or risk factors identified. Assessment: 01:00 Reassessment: Patient and/or family updated on plan of care and expected duration. Pain kb4 level reassessed. Patient is alert, oriented x 3, equal unlabored respirations, skin warm/dry/pink. Patient states feeling better. pain relieved some from med interventions per md orders . 01:11 Reassessment: states pain medication wore off and pain is just as bad if not worse than kb4 before. 02:00 Reassessment: Patient appears in no apparent distress at this time. pain relieved from kb4 med interventions Patient states feeling better. Patient states symptoms have improved. Vital Signs: 07/04 23:23 BP 126 / 96; Pulse 106; Resp 18; Temp 97.6; Pulse Ox 100% on R/A; Pain 4/10; kb4 07/05 01:08 BP 118 / 90; Pulse 97; Resp 18; Pulse Ox 100% on R/A; kb4 01:55 BP 120 / 86; Pulse 89; Resp 18; Pulse Ox 99% on R/A; kb4 07/04 23:23 Pain Scale: Adult kb4 ED Course: 07/04 23:19 Patient arrived in ED. gm2 23:26 Triage completed. kb4 23:26 Arm band placed on right wrist. kb4 23:34 Dick Driscoll PA-C is PHCP. cp 23:34 Lopez Villafuerte DO is Attending Physician. cp 07/05 00:32 Tessa Ko, RN is Primary Nurse. kb4 01:06 No provider procedures requiring assistance completed. Initial lab(s) drawn, by sc, kb4 sent to lab. EKG done, by ED staff. Inserted saline lock: 20 gauge in right antecubital area, using aseptic technique. Blood collected. Flushed with 10 mL NS. 01:10 XRAY Chest (1 view) In Process Unspecified. EDMS 02:01 Patient has correct armband on for positive identification. Provided Education on: when kb4 to seek medical attention . 02:01 IV discontinued, intact, bleeding controlled, No redness/swelling at site. Pressure kb4 dressing applied. Administered Medications: 00:55 Drug: fentaNYL (PF) IVP 25 mcg IVP once Route: IVP; Site: right antecubital; kb4 01:24 Follow up: Response: No adverse reaction kb4 01:10 CANCELLED (Physician Discretion): mg IVP once cp 01:24 Drug: fentaNYL (PF) IVP 25 mcg IVP once Route: IVP; Site: right antecubital; kb4 01:38 Follow up: Response: No adverse reaction kb4 01:44 Drug: Ketorolac IVP 15 mg IVP once Route: IVP; Site: right antecubital; kb4 02:03 Follow up: Response: No adverse reaction kb4 01:44 Drug: Droperidol IVP 0.625 mg IVP once Route: IVP; Site: right antecubital; kb4 02:02 Follow up: Response: No adverse reaction kb4 Medication: 02:02 VIS not applicable for this client. kb4 Outcome: 01:42 Discharge ordered by MD. cp 02:01 Discharged to home ambulatory, kb4 02:01 Condition: good 02:01 Discharge instructions given to patient, Instructed on discharge instructions, follow up and referral plans. medication usage, Demonstrated understanding of instructions, follow-up care, medications, Prescriptions given X 2, 02:04 Patient left the ED. kb4 Signatures: Dispatcher [employer] EDMS Dick Driscoll PA-C PA-C cp Mitchell, Ginger [facility] Tessa Ko RN RN kb4 Corrections: (The following items were deleted from the chart) 01:11 01:07 Reassessment: Patient and/or family updated on plan of care and expected kb4 duration. Pain level reassessed. Patient is alert, oriented x 3, equal unlabored respirations, skin warm/dry/pink. Patient states feeling better. pain relieved some from med interventions per md orders . kb4 02:04 02:03 BP 120 / 86; Pulse 89bpm; Resp 18bpm; Pulse Ox 99% RA; kb4 kb4
[2025-07-05 02:38] VITALS: BP 120/86; TEMP 97.6; O2SAT 99
--- NOTE | 2025-07-05 05:49 | RAD REPORT ---
EXAM DESCRIPTION: Chest Single View CLINICAL HISTORY: right chest/breast pain COMPARISON: Chest x-ray 06/03/2025. TECHNIQUE: Single AP view of the chest. FINDINGS: Lung volumes adequate. Cardiac silhouette is normal in size. No pneumothorax. No large pleural effusion. No focal consolidation. No acute bony finding. IMPRESSION: No evidence of acute cardiopulmonary disease. Electronically signed by: Isaiah Diamond MD 07/05/2025 01:23 AM CDT RP TYG Due to temporary technical issues with the PACS/True Style reporting system, reports are being samira d by the in-house radiologist without review as a courtesy to ensure prompt reporting. The interpreting radiologist is fully responsible for the content of the report. Transcribed Date/Time: 07/05/2025 5:49 AM
== END 2025-07-05 02:04 | disposition home or self-care (01) ==
LOC: ER 23:15
DX: N64.4 Mastodynia (principal); M79.603 Pain in arm, unspecified
CPT/HCPCS: 36415; 71045; 80048; 80076; 83735; 84484; 85025; 85379; 86140; 93005; 96374; 96375; 99284; J1790; J3010

== ENCOUNTER 2025-07-10 01:50 | Emergency (ER) | payer SELFPAY ==
--- OUTSIDE RECORDS SUMMARY | 2025-07-10 02:04 | XMS REPORT | Continuity of Care Document ---
Author Name Unknown Address [address] [facility] [address] [place] [address] Organization [facility] [place] Address [address] [facility] [address] [place] [address] Care Team Providers Care Nail Galvanizer Name Role Phone Liratj CURRAN, Ashley Primary Care Physician Nurse, Dat Rmchp Rgv Cprit Obgyn Attending Clini zenobia Unavailable Matteo LEONARD, Lesa Frederick Attending Clinician HERMILO RICKS Attending Clinician Unavailable HERMILO RICKS Attending Clinician Unavailable DONI MARIE Attending Clinician Unavailable DONI MARIE Attending Clinician Unavailable Pgy4 Attending Clinician Unavailable Kaye House MD Attending Clinician [phone] PATRICE HOLLAND Attending Clinician Unavailab Patrice Nevarez MD Attending Clinician + [phone] SELENE PARRA Attending Clinician Unavailable SELENE PARRA Attending Clinician Unavailable Selene Parra MD Attending Clinician [phone] Hermilo Ricks DO Attending Clinician +[phone] Doni Marie MD Attending Clinician +[phone] GABY TERRY Attending Clinician Unavailab shanna Terry EMERGENCY CARE TECH, Gaby Attending Clinician +[phone] CHRISTY RG Attending Clinician Unavailable CHRISTY RG Attending Clinician Unavailable Landy CLEVELAND, Christy Matthews Attending Clinician +[phone] CHAYO SRIVASTAVA Attending Clinician Unavailab Chayo Davis DO Attending Clinician [phone] Kavita OJEDA Attending Clinician Unavailable Rusty PAC, Kavita Rowe Attending Clinician [phone] Rama GUZMANP, Danie Ackerman Attending Clinician [phone] MEMO RESENDIZ Attending Clinician Unavailable Memo Resendiz MD Attending Clinician [phone] DANII ARRIAGA Attending Clinician Unavailable Rose Hoff MD Attending Clinician [phone] Danii Ferrer Attending Clinician [phone] MICHELLE TERRY Attending Clinician UnavailMichelle Evans MD Attending Clinician + [phone] RAVEN LIEBERMAN Attending Clinician Unavailable Liebermanmolly OSORIO, Raven S Attending Clinician [phone] Doctor Unassigned, Three Way Attending Clinician U SURAJ Blanca Attending Clinician UnavailSuraj Kee MD Attending Clinician + [phone] CAT RUTLEDGE Attending Clinician Unavailable LISA TRAN Attending Clinician Unavailable Lisa Cruz Attending Clinician + [phone] CL GATES Attending Clinician Unavailable ROCHELLE GOLD [...] Number Effective Date Expirati on Date Source [facility] [id number] 2023 00:00:00 Problems Condition Name Condition Details Condition Category Status Onset Date Resolution Date Last Treatment Date Treating Clinician Comments Source Acute nonintract able headache, unspecifie d headache type Acute nonintract able headache, unspecifie d headache type Disease Active 3- 00:00: 00 [facility] Other migraine without status migrainosu s, not intractabl e Other migraine without status migrainosu s, not intractabl e Disease Active 3 00:00: 00 [facility] Lower abdominal pain Lower abdominal pain Disease Active 1- 00:00: 00 [facility] Ureterolit hiasis Ureterolit hiasis Disease Active 8- 00:00: 00 [facility] No known active problems No known active problems Disease [facility] Allergies, Adverse Reactions, Alerts Allergy Name Allergy Type Status Severity Reaction(s) Onset Date Inactive Date Treating Clinician Comments Source SUMATRIP FRANKS DRUG INGREDI Active Palpitations 04-14 00:00: 00 [facility] Sumatrip franks Propensi ty to adverse reaction s Active Palpitations 04-14 00:00: 00 Rapid heart rate [facility] BUSPIRON E DRUG INGREDI Active Other-Cmnt 12-17 00:00: 00 [facility] Buspiron e Propensi ty to adverse reaction s Active Other - See comments 12-17 00:00: 00 Gives SI thoughts [facility] GABAPENT IN DRUG INGREDI Active Other-Cmnt 2022-10 0 00:00: 00 [facility] Gabapent in Propensi ty to adverse reaction s Active Other - See comments 2022-10 0 00:00: 00 Manic episodes [facility] NO KNOWN ALLERGIE S Drug Class Active [facility] Social History Social Habit Start Date Stop Date Quantity Comments Source ASSERTION Possible [facility] Gender identity [facility] Sexual orientation U [facility] History of Social function 2025-02-04 00:00:00 2025-02-04 00:00:00 [facility] Exposure to SARS-CoV-2 (event) 2023-02-24 00:00:00 2023-03-06 22:59:00 Not sure [facility] Sex assigned at 1990 00:00:00 1990 00:00:00 [facility] Smoking Status Start Date Stop Date Source Tobacco smoking consumption unknown [facility] Medications Ordered Medication Name Filled Medication Name Start Date Stop Date Current Medication? Ordering Clinician Indication Dosage Frequency Signature (SIG) Comments Components Source iopamidol (ISOVUE 370-500 mL) injection 85 mL 04-14 15:45: 00 04-14 15:45 :00 No [id number] 85mL 85 mL, Intravenou s, ONCE, 1 dose, On Sun04/14/25 at 1045, Routine [facility] maalox/diph enhydrAMINE :lidocaine2 %viscous 1:1:1: suspension (COMPOUNDED ) 04-14 13:30: 00 04-14 13:45 :00 No 15mL 15 mL, Oral, ONCE, 1 dose, On Sun04/14/25 at 0830, Routine [facility] dicyclomine 20 mg tablet 04-14 00:00: 00 Yes [id number] 20mg Take 1 tablet by mouth 4 times daily. [facility] NaCl 0.9% (NS) bolus infusion 1,000 mL 03-09 06:30: 00 03-09 07:43 :00 No 1000mL at 999 mL/hr, 1,000 mL, IV Infusion, ONCE, 1 dose, On Sun03/09/25 at 0130, STAT [facility] methylpredn isolone sod succ (SOLU-MEDRO L) injection 125 mg 03-09 06:30: 00 03-09 05:37 :00 No 125mg 125 mg, Slow IV Push, ONCE NOW, 1 dose, On Sun03/09/25 at 0130, NICOLASA [facility] magnesium sulfate in D5W 1 gram/100 mL RTU IV Piggyback 1 g 03-09 06:30: 00 03-09 06:39 :00 No 1g 1 g, IV Piggyback, ONCE, 1 dose, On 03/09/25 at 0130, Administer over 60 Minutes, 100 mL [facility] ondansetron (ZOFRAN (PF)) injection 4 mg 03-09 04:00: 00 03-09 03:15 :00 No 4mg 4 mg, Slow IV Push, ONCE, 1 dose, On Sun03/08/25 at 2300, 2 mL [facility] ketorolac (TORADOL) injection 30 mg 03-09 04:00: 00 03-09 03:16 :00 No 30mg 30 mg, Slow IV Push, ONCE, 1 dose, On Sun03/08/25 at 2300, NICOLASA [facility] caffeine tablet 200 mg caffeine tablet 200 mg 03-09 03:00: 00 03-09 03:31 :00 No 200mg 200 mg, Oral, Once, 1 dose, On Sun03/08/25 at 2200, NICOLASA [facility] diphenhydrA MINE (BENADRYL) injection 25 mg 03-09 03:00: 00 03-09 03:16 :00 No 25mg 25 mg, Slow IV Push, ONCE, 1 dose, On Sun03/08/25 at 2200, STAT [facility] SUMAtriptan 50 mg tablet 03-09 00:00: 00 Yes [id number] 50mg Take 1 tablet by mouth 3 times daily as needed for Migraine. [facility] Lidocaine (LIDOCARE) 4 % patch 1 Patch 01-27 18:30: 00 01-28 06:29 :00 No 1{patch } 1 Patch, Topical, Administer over 12 Hours, ONCE, 1 dose, On Sun01/27/25 at 1330, Routine [facility] ketorolac (TORADOL) injection 30 mg 01-27 18:15: 00 01-27 17:57 :00 No 30mg 30 mg, Slow IV Push, ONCE, 1 dose, On Sun01/27/25 at 1315, Routine [facility] methocarbam oL (ROBAXIN) tablet 1,000 mg 01-27 17:45: 00 01-27 17:52 :00 No 1000mg 1,000 mg, Oral, ONCE, 1 dose, On Sun01/27/25 at 1245, NICOLASA [facility] diphenhydrA MINE (BENADRYL) injection 12.5 mg 01-27 17:45: 00 01-27 17:55 :00 No 12.5mg 12.5 mg, Slow IV Push, ONCE, 1 dose, On Sun01/27/25 at 1245, STAT [facility] metoclopram farzana HCl (REGLAN) injection 10 mg 01-27 17:45: 00 01-27 17:57 :00 No 10mg 10 mg, Slow IV Push, ONCE, 1 dose, On Sun01/27/25 at 1245, NICOLASA [facility] methocarbam oL 500 mg tablet 01-27 00:00: 00 02-04 00:00 :00 No [id number] 4 500mg Take 1 tablet by mouth 4 (four) times daily for 10 days. [facility] methylPREDN ISolone 4 mg tablets 01-27 00:00: 00 02-04 00:00 :00 No [id number] 4 Take by mouth SEE-INSTRU CTIONS. follow package directions [facility] lidocaine 5 % (700 mg/patch) patch 01-27 00:00: 00 02-04 00:00 :00 No [id number] 4 1{patch } Apply 1 Patch to area(s) in the morning for 30 doses. [facility] iopamidol (ISOVUE 370-500 mL) injection 85 mL 01-17 09:30: 00 01-17 09:30 :00 No [id number] 85mL 85 mL, Intravenou s, ONCE, 1 dose, On 01/17/25 at 0430, Routine [facility] ketorolac (TORADOL) injection 30 mg 01-17 09:15: 01-17 08:15 :00 No 30mg 30 mg, Slow IV Push, ONCE, 1 dose, On Sun01/17/25 at 0415, Routine [facility] metoclopram farzana HCl (REGLAN) injection 10 mg 01-17 08:15: 01-17 08:16 :00 No 10mg 10 mg, Slow IV Push, ONCE, 1 dose, On 01/17/25 at 0315, NICOLASA [facility] diphenhydrA MINE (BENADRYL) injection 25 mg 01-17 08:15: 01-17 08:16 :00 No 25mg 25 mg, Slow IV Push, ONCE, 1 dose, On 01/17/25 at 031, STAT [facility] Nitrofurant oin&Nit. Macrocryst (MACROBID) 100 mg capsule 01-17 00:00: 00 02-04 00:00 :00 No [id number] 100mg Take 1 capsule by mouth in the morning and 1 capsule in the evening. [facility] iopamidol (ISOVUE 370-500 mL) injection 85 mL 01-05 13:15: 01-05 13:15 :00 No [id number] 85mL 85 mL, Intravenou s, ONCE, 1 dose, On Sun01/05/25 at 0815, Routine [facility] NaCl 0.9% (NS) bolus infusion 1,000 mL 01-05 12:00: 01-05 14:39 :00 No 1000mL at 999 mL/hr, 1,000 mL, IV Piggyback, ONCE, 1 dose, On Sun01/05/25 at 0700, STAT [facility] NaCl 0.9% (NS) bolus infusion 1,000 mL 01-05 11:15: 00 01-05 10:56 :00 No 1000mL at 999 mL/hr, 1,000 mL, IV Piggyback, ONCE, 1 dose, On Sun01/05/25 at 0615, STAT [facility] ondansetron (ZOFRAN (PF)) injection 4 mg 01-05 11:00: 00 01-05 10:58 :00 No 4mg 4 mg, Slow IV Push, ONCE, 1 dose, On Sun01/05/25 at 0600, Administer over 2-5 Minutes, 2 mL [facility] butalbital- acetaminoph en-caff (ESGIC) 50-325-40 mg tablet 1 tablet 12-18 06:00: 00 12-18 06:24 :00 No 1{tbl} 1 tablet, Oral, ONCE, 1 dose, On Sun12/18/24 at 0000, NICOLASA [facility] diphenhydrA MINE (BENADRYL) injection 25 mg 12-18 06:00: 00 12-18 06:24 :00 No 25mg 25 mg, Slow IV Push, ONCE, 1 dose, On Ashley 12/18/24 at 0000, [facility] metoclopram farzana HCl (REGLAN) injection 10 mg 12-18 06:00: 00 12-18 06:24 :00 No 10mg 10 mg, Slow IV Push, ONCE, 1 dose, On Ashley 12/18/24 at 0000, [facility] metoclopram farzana 10 mg tablet 12-18 [...] 1 dose, On Sun11/18/24 at 2330, Routine [facility] amoxicillin (TRIMOX) capsule 500 mg 11-19 04:30: 00 11-19 04:43 :00 No 500mg 500 mg, Oral, ONCE, 1 dose, On Sun11/18/24 at 2230, NICOLASA, Reason for Anti-Infec tive: Documented Infection, Documented Infection Site: HEENT, Duration of Therapy: Once (ED) [facility] ibuprofen 800 mg tablet 2- 00:00: 00 02-04 00:00 :00 No [id number] 800mg Take 1 tablet by mouth every 8 (eight) hours as needed for Alternate with [place] for pain scale 1-3. [facility] amoxicillin 500 mg capsule 11-18 00:00: 00 02-04 00:00 :00 No [id number] 500mg Take 1 capsule by mouth in the morning and 1 capsule at noon and 1 capsule in the evening. [facility] Bromfed DM 2 mg-30 mg-10 mg/5 mL oral syrup 1-08 00:00: 00 Yes 10mg/5 mL Darryl Waggoner metoclopram farzana HCl (REGLAN) injection 10 mg 2023-10 13:15: 00 07-25 13:23 :00 No 10mg 10 mg, Slow IV Push, ONCE, 1 dose, On Sun07/25/24 at 0815, NICOLASA [facility] pantoprazol e 40 mg EC tablet 2023-10 00:00: 00 Yes [id number] 40mg Take 1 tablet by mouth in the morning. [facility] metoclopram farzana HCl 10 mg tablet 2023-10 00:00: 00 02-04 00:00 :00 No [id number] 10mg Take 1 tablet by mouth every 6 (six) hours. [facility] iopamidol (ISOVUE 370-500 mL) injection 85 mL 9-20 09:45: 00 07-04 09:45 :00 No [id number] 85mL 85 mL, Intravenou s, ONCE, 1 dose, On Sun07/04/24 at 0445, Routine [facility] ketorolac (TORADOL) injection 30 mg 07-04 09:15: 00 07-04 08:27 :00 No 30mg 30 mg, Slow IV Push, ONCE, 1 dose, On Sun07/04/24 at 0415, Routine [facility] Lidocaine Viscous 2 % mucosal solution [...] ONCE, 1 dose, [facility]03/12/24 [facility] 0545[facility] (REGLAN) injection 10 mg 03-12 10:45: 00 03-12 10:52 :00 No 10mg 10 mg, Slow IV Push, ONCE, 1 dose, On Sun03/12/24 at 0545, NICOLASA [facility] iopamidol (ISOVUE 370-500 mL) injection 100 mL 03-12 10:15: 00 03-12 10:15 :00 No [id number] 100mL 100 mL, Intravenou s, ONCE, 1 dose, On Sun03/12/24 at 0515, Routine [facility] ketorolac (TORADOL) injection 30 mg 03-12 10:00: 00 03-12 09:01 :00 No 30mg 30 mg, Slow IV Push, ONCE, 1 dose, On Sun03/12/24 at 0500, Routine [facility] NaCl 0.9% (NS) IV infusion 1,000 mL 03-12 09:45: 00 03-12 10:39 :00 No 1000mL at 999 mL/hr, Intravenou s, ONCE, 1 dose, On Sun03/12/24 at 0445, Routine [facility] ondansetron (ZOFRAN (PF)) injection 4 mg 03-12 09:00: 00 03-12 09:01 :00 No 4mg 4 mg, Slow IV Push, ONCE, 1 dose, On Sun03/12/24 at 0400, NICOLASA [facility] butalbital- acetaminoph en-caff 50-325-40 mg tablet 03-12 00:00: 00 02-04 00:00 :00 No [id number] 1{tbl} Take 1 tablet by mouth every 6 (six) hours as needed (Headache) . [facility] dicyclomine 20 mg tablet 03-12 00:00: 00 02-04 00:00 :00 No [id number] 20mg Take 1 tablet by mouth every 6 (six) hours as needed for Abdominal pain. [facility] metoclopram farzana HCl 10 mg tablet 03-12 00:00: 00 07-25 00:00 :00 No [id number] 10mg Take 1 tablet by mouth every 6 (six) hours. [facility] ondansetron HCl 4 mg tablet 03-06 00:00: 00 Yes 1mg Darryl Waggoner iopamidol (ISOVUE 370-500 mL) injection 85 mL 02-02 11:00: 00 02-02 11:00 :00 No [id number] 85mL 85 mL, Intravenou s, ONCE, 1 dose, On Sun02/03/24 at 0600, Routine [facility] FENTanyl PF (SUBLIMAZE (PF)) injection 50 mcg 02-02 10:30: 00 02-02 09:52 :00 No 50ug 50 mcg, Slow IV Push, ONCE, 1 dose, On 4/21/24 at 0530, Routine [facility] metoclopram farzana HCl (REGLAN) injection 10 mg 02-02 09:30: 00 02-02 09:52 :00 No 10mg 10 mg, Slow IV Push, ONCE, 1 dose, On Sun02/03/24 at 0430, NICOLASA [facility] pantoprazol e (PROTONIX) injection 40 mg 02-02 09:30: 00 02-02 09:53 :00 No 40mg 40 mg, Slow IV Push, ONCE, 1 dose, On Sun02/03/24 at 0430 [facility] dicyclomine 20 mg tablet 02-02 00:00: 00 02-04 00:00 :00 No [id number] 20mg Take 1 tablet by mouth every 6 (six) hours as needed for Abdominal pain. [facility] metoclopram farzana HCl 10 mg tablet 02-02 00:00: 00 07-25 00:00 :00 No [id number] 10mg Take 1 tablet by mouth every 6 (six) hours. [facility] pantoprazol e (PROTONIX) 40 mg EC tablet 02-02 00:00: 00 07-25 00:00 :00 No [id number] 40mg Take 1 tablet by mouth in the morning. [facility] loratadine (CLARITIN) tablet 10 mg 01-01 06:30: 00 01-01 18:29 :00 No 10mg 10 mg, Oral, ONCE, 1 dose, On Sun01/02/24 at 0130, NICOLASA [facility] azithromyci n (ZITHROMAX) tablet 500 mg 01-01 05:45: 00 01-01 05:39 :00 No 500mg 500 mg, Oral, ONCE, 1 dose, On Sun01/02/24 at 0045, NICOLASA
Re ason for Anti-Infec tive: Documented Infection< br>Documen zoila Infection Site: HEENT
D uration of Therapy: Once (ED) [facility] azithromyci n (ZITHROMAX Z-RAMESH) 250 mg tablet 01-01 00:00: 00 02-04 00:00 :00 No [id number] 500mg Take 2 tablets by mouth SEE-INSTRU CTIONS. Take 500 mg day 1, then 250 mg days 2 to 5. [facility] loratadine- pseudoephed rine (CLARITIN-D 24 HOUR) 10-240 mg per 24 hr tablet 01-01 00:00: 00 02-04 00:00 :00 No [id number] 1{tbl} Take 1 tablet by mouth in the morning. [facility] dextrometho rphan-guaif enesin 10-100 mg/5 mL solution 01-01 00:00: 00 02-04 00:00 :00 No [id number] 10mL Take 10 mL by mouth every 6 (six) hours as needed for Cough. [facility] butalbital- acetaminoph en-caff (ESGIC) 50-325-40 mg tablet 1 tablet 12-25 09:15: 00 12-25 09:09 :00 No 1{tbl} 1 tablet, Oral, ONCE, 1 dose, On Sun12/26/23 at 0415, NICOLASA [facility] butalbital- acetaminoph en-caff 50-325-40 mg tablet 12-25 00:00: 00 02-04 00:00 :00 No [id number] 1{tbl} Take 1 tablet by mouth every 6 (six) hours as needed (Headache) . [facility] ketorolac (TORADOL) injection 30 mg 11-20 17:15: 00 11-20 16:28 :00 No 30mg 30 mg, Slow IV Push, ONCE, 1 dose, On Sun11/20/23 at 1115, NICOLASA [facility] iopamidol (ISOVUE 370-500 mL) injection 80 mL 11-20 14:30: 00 11-20 14:45 :00 No [id number] 80mL 80 mL, Intravenou s, ONCE, 1 dose, On Sun11/20/23 at 0845, Routine [facility] NaCl 0.9% (NS) bolus infusion 1,000 mL 11-20 14:15: 00 11-20 16:26 :00 No 1000mL at 999 mL/hr, 1,000 mL, IV Infusion, ONCE, 1 dose, On Sun11/20/23 at 0815, STAT [facility] ondansetron 4 mg disintegrat ing tablet 11-20 00:00: 00 Yes [id number] 4mg Take 1 tablet by mouth every 4 (four) hours as needed for Nausea and Vomiting (N/V). [facility] cephALEXin (KEFLEX) 500 mg capsule 11-20 00:00: 00 02-04 00:00 :00 No [id number] 500mg Take 1 capsule by mouth in the morning and 1 capsule at noon and 1 capsule in the evening. [facility] naproxen 500 mg tablet 11-20 00:00: 00 12-01 05:59 :00 No [id number] 500mg Take 1 tablet by mouth in the morning and 1 tablet in the evening. Take with meals. Do all this for 10 days. [facility] maalox:diph enhydrAMINE :lidocaine 2 % viscous 1:1:1 ([facility]) oral suspension 15 mL 11-12 07:00: 00 11-12 06:55 :00 No 15mL 15 mL, Oral, ONCE, 1 dose, On Sun11/12/23 at 0100, Routine [facility] ondansetron (ZOFRAN-ODT ) disintegrat ing tablet 4 mg 11-12 07:00: 00 11-12 06:16 :00 No 4mg 4 mg, Oral, ONCE, 1 dose, On Sun11/12/23 at 0100, Routine [facility] benzonatate 200 mg capsule 10-27 00:00: 00 Yes [id number] 200mg Take 1 capsule by mouth 3 (three) times daily as needed for Cough for up to 20 doses. [facility] ibuprofen 600 mg tablet 10-27 00:00: 00 Yes [id number] 600mg Take 1 tablet by mouth every 6 (six) hours as needed for Pain (scale 4-6). [facility] ondansetron 4 mg disintegrat ing tablet 10-27 00:00: 00 11-20 00:00 :00 No [id number] 4mg Take 1 tablet by mouth every 8 (eight) hours as needed for Nausea and Vomiting (N/V). [facility] lactulose (CEPHULAC) solution 30 mL 2022-10 01:45: 00 09-09 02:36 :00 No 30mL 30 mL, Oral, ONCE, 1 dose, On 09/08/23 at 1945, NICOLASA [facility] dexamethaso ne (DECADRON PHOSPHATE) injection 10 mg 2022-10 01:30: 00 09-09 02:40 :00 No 10mg 10 mg, Oral, ONCE, 1 dose, On 09/08/23 at 1930, Routine [facility] ketorolac (TORADOL) injection 30 mg 2022-10 01:30: 00 09-09 02:40 :00 No 30mg 30 mg, Intramuscu lar, ONCE, 1 dose, On 09/08/23 at 1930, Routine [facility] ketorolac 10 mg tablet 2022-10 00:00: 00 11-12 00:00 :00 No [id number] 10mg Take 1 tablet by mouth every 6 (six) hours as needed for Pain (scale 7-10). [facility] glycerin/mi neral oil, AGLO ENEMA, Enem 2022-10 00:00: 00 11-12 00:00 :00 No [id number] 225mL Insert 225 mL into rectum as needed for Constipati on. [facility] cefdinir 300 mg capsule 2022-10 00:00: 00 09-16 05:59 :00 No [id number] 300mg Take 1 capsule by mouth every 12 (twelve) hours for 7 days. [facility] lactulose 10 gram/15 mL solution 2022-10 00:00: 00 09-14 05:59 :00 No [id number] 15mL Take 15 mL by mouth in the morning for 5 days. [facility] HYDROcodone -acetaminop hen (NORCO 5) 5-325 mg tablet 1 tablet 2022-10 13:15: 00 09-07 13:33 :00 No 1{tbl} 1 tablet, Oral, ONCE, 1 dose, On Sun09/07/23 at 0715, [facility] diazePAM (VALIUM) tablet 5 mg 2022-10 13:15: 09-07 13:33 :00 No 5mg 5 mg, Oral, ONCE, 1 dose, On Sun09/07/23 at 0715, [facility] dexamethaso ne sod phos PF injection 10 mg 2022-10 13:15: 00 09-07 13:33 :00 No 10mg 10 mg, Oral, ONCE, 1 dose, On Sun09/07/23 at 0715, 1 mL [facility] methocarbam oL 750 mg tablet 2022-10 00:00: 00 11-12 00:00 :00 No [id number] 750mg Take 1 tablet by mouth every 6 (six) hours as needed for Pain (scale 1-3). [facility] ondansetron (ZOFRAN (PF)) injection 4 mg 2022-10 02:00: 00 09-04 02:30 :00 No 4mg 4 mg, Slow IV Push, ONCE, 1 dose, On Sun09/03/23 at 1999, [facility] meclizine (TRAVEL-EAS E (MECLIZINE) ) tablet 50 mg 2022-10 02:00: 00 09-04 02:30 :00 No 50mg 50 mg, Oral, ONCE, 1 dose, On Sun09/03/23 at 1999, [facility] ondansetron (ZOFRAN) 4 mg tablet 2022-10 00:00: 00 Yes [id number] 4mg Take 1 tablet by mouth every 8 (eight) hours as needed for Nausea and Vomiting (N/V). [facility] meclizine 25 mg tablet 2022-10 00:00: 00 11-12 00:00 :00 No [id number] 25mg Take 1 tablet by mouth every 6 (six) hours. [facility] ondansetron (ZOFRAN-ODT ) disintegrat ing tablet 4 mg 2022-10 08:30: 00 07-26 07:45 :00 No 4mg 4 mg, Oral, ONCE, 1 dose, On Ashley 07/26/23 at 0330, Routine [facility] proMETHazin e 25 mg tablet 2022-10 00:00: 00 09-03 00:00 :00 No [id number] 12.5mg Take 0.5 tablets by mouth every 6 (six) hours as needed for Nausea and Vomiting (N/V). [facility] loratadine 10 mg tablet 2022-10 00:00: 00 02-04 00:00 :00 No [id number] 10mg Take 1 tablet by mouth at bedtime as needed for Allergies or Runny nose. [facility] albuterol 90 mcg/actuati on inhaler 2022-10 00:00: 00 02-04 00:00 :00 No [id number] 2{puff} Inhale 2 Puffs every 4 (four) hours as needed for Wheezing or Shortness of Breath. [facility] benzonatate 200 mg capsule 2022-10 00:00: 00 11-12 00:00 :00 No [id number] 200mg Take 1 capsule by mouth 3 (three) times daily as needed for Cough. [facility] fluticasone propionate 50 mcg/actuati on nasal spray 2022-10 00:00: 00 11-12 00:00 :00 No [id number] 2{spray } Use 2 Sprays in each nostril in the morning. [facility] predniSONE 20 mg tablet 2022-10 0-11 00:00: 00 07-31 04:59 :00 No [id number] 40mg Take 2 tablets by mouth in the morning for 5 days. [facility] TAKE 1 TABLET DAILY. 2022-10 00:00: 00 01-30 00:00 :00 No 10 Darryl Waggoner ibuprofen 800 mg tablet 07-12 00:00: 00 11-12 00:00 :00 No [id number] 800mg Take 1 tablet by mouth every 8 (eight) hours. [facility] methylPREDN ISolone sodium succinate (SOLU-MEDRO L) injection 125 mg 06-24 17:00: 00 06-24 11:35 :44 No 125mg 125 mg, Intramuscu lar, Q6H, First dose on Sun06/24/23 at 1200, Until Discontinu ed, Routine [facility] gabapentin 300 mg capsule 06-24 00:00: 00 11-12 00:00 :00 No [id number] 300mg Take 1 capsule by mouth in the morning and 1 capsule at noon and 1 capsule in the evening. [facility] codeine-gua ifenesin (ROBITUSSIN AC) 10-100 mg/5 mL oral solution 10 mL 06-18 06:15: 00 06-18 06:23 :00 No 10mL 10 mL, Oral, ONCE, 1 dose, On Sun06/18/23 at 0115, NICOLASA [facility] azithromyci n (ZITHROMAX) tablet 500 mg 06-18 06:15: 00 06-18 06:24 :00 No 500mg 500 mg, Oral, ONCE, 1 dose, On Sun06/18/23 at 0115, NICOLASA
Re ason for Anti-Infec tive: Documented Infection< br>Documen zoila Infection Site: Respirator y
Durat ion of Therapy: 7 days [facility] benzonatate 200 mg capsule 06-18 00:00: 00 11-12 00:00 :00 No [id number] 200mg Take 1 capsule by mouth 3 (three) times daily as needed for Cough. [facility] azithromyci n 250 mg tablet 06-18 00:00: 00 09-03 00:00 :00 No [id number] 250mg Take 1 tablet by mouth SEE-INSTRU CTIONS. Take 500 mg day 1, then 250 mg days 2 to 5. [facility] ondansetron 4 mg tablet 06-18 00:00: 00 09-03 00:00 :00 No [id number] 1 or 2 tablets every 8 hours as needed for nausea [facility] TAKE 1 TABLET BY MOUTH TWICE A DAY 06-14 00:00: 00 01-30 00:00 :00 No 500 Darryl Waggoner metroNIDAZO LE (FLAGYL) tablet 500 mg 06-12 08:45: 00 06-12 08:32 :00 No 500mg 500 mg, Oral, ONCE, 1 dose, On Sun06/12/23 at 0345, Routine
Reason for Anti-Infec tive: Empiric Therapy for Suspected Infection< br>Empiric Therapy Site: Pelvic
Duration of therapy: 72 hours [facility] doxycycline hyclate (Vibramycin ) capsule 100 mg 06-12 07:45: 00 06-12 08:32 :00 No 100mg 100 mg, Oral, ONCE, 1 dose, On Sun06/12/23 at 0245, NCIOLASA
Re ason for Anti-Infec tive: Documented Infection< br>Documen zoila Infection Site: Pelvic
Duration of Therapy: 14 days [facility] morpHINE (4 mg/mL) injection 4 mg 06-12 07:45: 00 06-12 08:32 :00 No 4mg 4 mg, Slow IV Push, ONCE, 1 dose, On Sun06/12/23 at 0245, STAT [facility] ketorolac (TORADOL) injection 30 mg 06-12 06:15: 00 06-12 05:10 :00 No 30mg 30 mg, Slow IV Push, ONCE, 1 dose, On Sun06/12/23 at 0115[facility] 0.9% (NS) bolus infusion 1,000 mL 06-12 06:15: 06-12 06:56 :00 No 1000mL at 999 mL/hr, 1,000 mL, IV Infusion, ONCE, 1 dose, On Sun06/12/23 at 0115, STAT [facility] cefTRIAXone (ROCEPHIN) 1,000 mg in NaCl 0.9% (NS) 100 mL MINI-BAG 06-12 05:15: 06-12 06:56 :00 No 1000mg 1,000 mg, IV Piggyback, ONCE, 1 dose, On Sun06/12/23 at 0015, Administer over 30 Minutes, 100 mL
Reas on for Anti-Infec tive: Empiric Therapy for Suspected Infection< br>Empiric Therapy Site: Pelvic
Duration of therapy: 72 hours [facility] ondansetron (ZOFRAN (PF)) injection 4 mg 06-12 05:15: 06-12 05:10 :00 No 4mg 4 mg, Slow IV Push, ONCE, 1 dose, On Sun06/12/23 at 0015, [facility] ibuprofen 800 mg tablet 06-12 00:00: 00 07-12 00:00 :00 No [id number] 800mg Take 1 tablet by mouth every 8 (eight) hours as needed for Pain (scale 4-6). [facility] TAKE 1 TABLET TWICE DAILY. 05-31 00:00: 00 01-30 00:00 :00 No 100 Darryl Waggoner iopamidol (ISOVUE 370-500 mL) injection 85 mL 05-28 08:30: 00 05-28 08:30 :00 No [id number] 85mL 85 mL, Intravenou s, ONCE, 1 dose, On Sun05/28/23 at 0330, Routine [facility] NaCl 0.9% (NS) bolus infusion 1,000 mL 05-28 08:15: 00 05-28 08:52 :00 No 1000mL at 999 mL/hr, 1,000 mL, IV Infusion, ONCE, 1 dose, On Sun05/28/23 at 0315, STAT [facility] pantoprazol e (PROTONIX) 80 mg in NaCl 0.9% (NS) 20 mL syringe 05-28 08:00: 00 05-28 08:02 :00 No 80mg 80 mg, IV Push, ONCE, 1 dose, On Sun05/28/23 at 0300, Administer over 2 Minutes, 20 mL [facility] ondansetron (ZOFRAN (PF)) injection 4 mg 05-28 06:45: 00 05-28 06:36 :00 No 4mg 4 mg, Slow IV Push, ONCE, 1 dose, On Sun05/28/23 at 0145, NICOLASA [facility] ondansetron 4 mg disintegrat ing tablet 05-28 00:00: 00 09-03 00:00 :00 No [id number] 4mg Take 1 tablet by mouth every 8 (eight) hours as needed for Nausea and Vomiting (N/V). [facility] esomeprazol e (NEXIUM) 40 mg capsule 05-28 00:00: 00 06-12 04:59 :00 No [id number] 40mg Take 1 capsule by mouth daily with breakfast for 14 days. [facility] INSTILL 4 DROPS IN THE AFFECTED EAR(S) TWICE DAILY 7-10 00:00: 00 01-30 00:00 :00 No 301 Darryl Waggoner dexamethaso ne (DECADRON PHOSPHATE) injection 10 mg 03-07 05:00: 00 03-07 03:56 :00 No 10mg 10 mg, Oral, ONCE, 1 dose, On Sun03/07/23 at 0000, Routine [facility] levocetiriz ine 5 mg tablet 03-06 00:00: 00 09-03 00:00 :00 No [id number] 5mg Take 1 tablet by mouth every evening. [facility] butorphanol (STADOL) injection 1 mg 02-02 08:00: 00 02-02 07:18 :00 No 1mg 1 mg, IV Push, ONCE, 1 dose, On Sun02/02/23 at 0300, NICOLASA [facility] ketorolac (TORADOL) injection 30 mg 02-02 07:45: 00 02-02 06:42 :00 No 30mg 30 mg, Slow IV Push, ONCE, 1 dose, On Sun02/02/23 at 0245, Routine [facility] metoclopram farzana HCl (REGLAN) injection 10 mg 02-02 06:45: 00 02-02 06:41 :00 No 10mg 10 mg, Slow IV Push, ONCE, 1 dose, On Sun02/02/23 at 0145, NICOLASA [facility] diphenhydrA MINE (BENADRYL) injection 25 mg 02-02 06:45: 00 02-02 06:43 :00 No 25mg 25 mg, Slow IV Push, ONCE, 1 dose, On Sun02/02/23 at 0145, STAT [facility] butalbital- acetaminoph en-caff 50-325-40 mg tablet 02-02 00:00: 00 11-12 00:00 :00 No [id number] 1{tbl} Take 1 tablet by mouth every 4 (four) hours as needed for Pain (scale 7-10). [facility] ondansetron (ZOFRAN) 4 mg tablet 02-02 00:00: 00 05-28 00:00 :00 No [id number] 4mg Take 1 tablet by mouth every 8 (eight) hours as needed for Nausea and Vomiting (N/V). [facility] iopamidol (ISOVUE 370-500 mL) injection 98 mL 1-10 21:00: 00 10-24 21:00 :00 No [id number] 98mL 98 mL, Intravenou s, ONCE, 1 dose, On Sun10/24/22 at 1500, Routine [facility] morpHINE (4 mg/mL) injection 4 mg 10-24 18:30: 00 10-24 19:03 :00 No 4mg 4 mg, Slow IV Push, ONCE, 1 dose, On Sun10/24/22 at 1230, STAT [facility] ondansetron (ZOFRAN (PF)) injection 4 mg 10-24 18:30: 00 10-24 19:01 :00 No 4mg 4 mg, Slow IV Push, ONCE, 1 dose, On Sun10/24/22 at 1230, NICOLASA [facility] NaCl 0.9% (NS) bolus infusion 1,000 mL 10-24 18:30: 00 10-24 21:40 :00 No 1000mL at 999 mL/hr, 1,000 mL, IV Infusion, ONCE, 1 dose, On Sun10/24/22 at 1230, STAT [facility] ondansetron 4 mg disintegrat ing tablet 10-24 00:00: 00 05-28 00:00 :00 No [id number] 4mg Take 1 tablet by mouth every 8 (eight) hours as needed for Nausea and Vomiting (N/V) for up to 10 doses. [facility] cephALEXin (KEFLEX) 500 mg capsule 10-24 00:00: 00 11-01 05:59 :00 No [id number] 500mg Take 1 capsule by mouth 4 (four) times daily for 7 days. [facility] ibuprofen 600 mg tablet 10-24 00:00: 00 10-30 05:59 :00 No [id number] 600mg Take 1 tablet by mouth every 8 (eight) hours as needed for Pain (scale 4-6) for up to 5 days. [facility] dicyclomine 20 mg tablet 10-24 00:00: 00 10-30 05:59 :00 No [id number] 20mg Take 1 tablet by mouth 3 (three) times daily as needed for Abdominal pain for up to 5 days. [facility] megestroL 40 mg tablet 2021-10 00:00: 00 11-12 00:00 :00 No [id number] 100 Take by mouth 2 tabs for first 7 days then 1 tablet by mouth daily for next 14 days. [facility] cephALEXin (KEFLEX) 500 mg capsule 2021-10 00:00: 00 07-29 04:59 :00 No [id number] 100 500mg Take 1 capsule by mouth in the morning and 1 capsule at noon and 1 capsule in the evening. Do all this for 7 days. [facility] iopamidol (ISOVUE 370-500 mL) injection 65 mL 05-19 21:30: 00 05-19 21:45 :00 No [id number] 65mL 65 mL, Intravenou s, ONCE, 1 dose, On Sun05/19/22 at 1645, Routine [facility] ondansetron (ZOFRAN (PF)) injection 4 mg 05-19 21:30: 00 05-19 20:51 :00 No 4mg 4 mg, Slow IV Push, ONCE, 1 dose, On Sun05/19/22 at 1630, NICOLASA [facility] ketorolac (TORADOL) injection 30 mg 05-19 21:30: 00 05-19 20:51 :00 No 30mg 30 mg, Slow IV Push, ONCE, 1 dose, On Sun05/19/22 at 1630, Routine [facility] NaCl 0.9% (NS) bolus infusion 1,000 mL 05-19 21:30: 00 05-19 22:08 :00 No 1000mL at 999 mL/hr, 1,000 mL, IV Infusion, ONCE, 1 dose, On Sun05/19/22 at 1630, NICOLASA [facility] tamsulosin 0.4 mg 24 hr capsule 05-19 00:00: 00 11-12 00:00 :00 No [id number] .4mg Take 1 capsule by mouth at bedtime. [facility] traMADoL 50 mg tablet 8-05 00:00: 00 05-27 04:59 :00 No [id number] 50mg Take 1 tablet by mouth every 6 (six) hours as needed for Pain (scale 4-6) for up to 7 days. Indication s: acute pain [facility] ketorolac (TORADOL) injection 30 mg 05-13 08:45: 00 05-13 07:40 :00 No 30mg 30 mg, Slow IV Push, ONCE, 1 dose, On 05/13/22 at 0345, Routine [facility] ketorolac 10 mg tablet 05-13 00:00: 00 11-12 00:00 :00 No [id number] 10mg Take 1 tablet by mouth every 6 (six) hours as needed for Pain (scale 7-10). [facility] butalbital- acetaminoph en-caff (ESGIC) 50-325-40 mg tablet 2 tablet 04-01 23:15: 00 04-01 22:22 :00 No 2{tbl} 2 tablet, Oral, ONCE NOW, 1 dose, On 04/01/22 at 1815, Routine [facility] ketorolac (TORADOL) injection 30 mg 04-01 23:15: 00 04-01 22:21 :00 No 30mg 30 mg, Intramuscu lar, ONCE, 1 dose, On 04/01/22 at 1815, NICOLASA [facility] No known medications 04-01 18:30: 37 No [facility] No known medications 10-25 13:51: 01 No [facility] cefdinir 300 mg capsule 10-25 00:00: 00 11-02 05:59 :00 No [id number] 300mg Take 1 capsule by mouth 2 (two) times daily for 7 days. [facility] Iron (ferrous sulfate) 325 mg (65 [...] No known medications 6-25 21:44: 39 No [facility] amitriptyli ne 25 mg tablet 5-20 00:00: [address]aryl Waggoner amitriptyli ne 25 mg tablet 5-20 [...] 2020-12-15 00:00:00 Completed TDAP 2016-08-23 00:00:00 Completed [facility] Vital Signs Vital Name Observation Time Observation Value Comments S ource Body temperature 2025-05-08 13:05:00 36.33 Jennifer [facility] Systolic blood pressure 2025-04-14 16:28:36 130 mm[Hg] [facility] Diastolic blood pressure 2025-04-14 16:28:36 90 mm[Hg] [facility] Heart rate 2025-04-14 16:28:36 93 /min [facility] Body temperature 2025-04-14 16:28:36 37.78 Jennifer [facility] Respiratory rate 2025-04-14 16:28:36 16 /min [facility] Oxygen saturation in Arterial blood by Pulse oximetry 2025-04-14 16:28:36 100 /min [facility] Body height 2025-04-14 13:10:00 157.5 cm [facility] Body weight 2025-04-14 13:10:00 81.647 kg [facility] BMI 2025-04-14 13:10:00 32.92 kg/m2 [facility] Systolic blood pressure 2025-03-09 07:37:00 126 mm[Hg] [facility] Diastolic blood pressure 2025-03-09 07:37:00 85 mm[Hg] [facility] Heart rate 2025-03-09 07:37:00 95 /min [facility] Body temperature 2025-03-09 07:37:00 36.83 Jennifer [facility] Respiratory rate 2025-03-09 07:37:00 17 /min [facility] Oxygen saturation in Arterial blood by Pulse oximetry 2025-03-09 07:37:00 98 /min [facility] Body height 2025-03-09 02:30:00 157.5 cm [facility] Body weight 2025-03-09 02:30:00 81.647 kg [facility] BMI 2025-03-09 02:30:00 32.92 kg/m2 [facility] Systolic blood pressure 2025-02-04 19:15:00 126 mm[Hg] [facility] Diastolic blood pressure 2025-02-04 19:15:00 83 mm[Hg] [facility] Heart rate 2025-02-04 19:15:00 98 /min [facility] Body temperature 2025-02-04 19:15:00 36.5 Jennifer [facility] Respiratory rate 2025-02-04 19:15:00 20 /min [facility] Body height 2025-02-04 19:15:00 157.5 cm [facility] Body weight 2025-02-04 19:15:00 84.414 kg [facility] BMI 2025-02-04 19:15:00 34.04 kg/m2 [facility] Body temperature 2025-01-27 18:45:00 37 Jennifer [facility] Systolic blood pressure 2025-01-27 18:00:00 124 mm[Hg] [facility] Diastolic blood pressure 2025-01-27 18:00:00 91 mm[Hg] [facility] Heart rate 2025-01-27 18:00:00 89 /min [facility] Respiratory rate 2025-01-27 18:00:00 16 /min [facility] Oxygen saturation in Arterial blood by Pulse oximetry 2025-01-27 18:00:00 98 /min [facility] Body height 2025-01-27 17:26:00 157.5 cm [facility] Body weight 2025-01-27 17:26:00 79.379 kg [facility] BMI 2025-01-27 17:26:00 32.01 kg/m2 [facility] Systolic blood pressure 2025-01-17 09:03:00 115 mm[Hg] [facility] Diastolic blood pressure 2025-01-17 09:03:00 79 mm[Hg] [facility] Heart rate 2025-01-17 09:03:00 89 /min [facility] Body temperature 2025-01-17 09:03:00 36.89 Jennifer [facility] Respiratory rate 2025-01-17 09:03:00 16 /min [facility] Oxygen saturation in Arterial blood by Pulse oximetry 2025-01-17 09:03:00 100 /min [facility] Body height 2025-01-17 07:25:00 157.5 cm [facility] Body weight 2025-01-17 07:25:00 81.647 kg [facility] BMI 2025-01-17 07:25:00 32.92 kg/m2 [facility] Systolic blood pressure 2025-01-05 14:39:00 125 mm[Hg] [facility] Diastolic blood pressure 2025-01-05 14:39:00 84 mm[Hg] [facility] Heart rate 2025-01-05 14:39:00 99 /min [facility] Body temperature 2025-01-05 14:39:00 37.33 Jennifer [facility] Respiratory rate 2025-01-05 14:39:00 16 /min [facility] Oxygen saturation in Arterial blood by Pulse oximetry 2025-01-05 14:39:00 98 /min [facility] Body height 2025-01-05 10:11:00 157.5 cm [facility] Body weight 2025-01-05 10:11:00 83.462 kg [facility] BMI 2025-01-05 10:11:00 33.65 kg/m2 [facility] Systolic blood pressure 2024-12-18 07:00:00 101 mm[Hg] [facility] Diastolic blood pressure 2024-12-18 07:00:00 71 mm[Hg] [facility] Heart rate 2024-12-18 07:00:00 90 /min [facility] Respiratory rate 2024-12-18 07:00:00 16 /min [facility] Oxygen saturation in Arterial blood by Pulse oximetry 2024-12-18 07:00:00 97 /min [facility] Body temperature 2024-12-18 05:54:00 37.11 Jennifer [facility] Body height 2024-12-18 05:54:00 157.5 cm [facility] Body weight 2024-12-18 05:54:00 83.462 kg [facility] BMI 2024-12-18 05:54:00 33.65 kg/m2 [facility] Systolic blood pressure 2024-11-19 04:41:00 120 mm[Hg] [facility] Diastolic blood pressure 2024-11-19 04:41:00 93 mm[Hg] [facility] Heart rate 2024-11-19 04:41:00 78 /min [facility] Body temperature 2024-11-19 04:41:00 36.83 Jennifer [facility] Respiratory rate 2024-11-19 04:41:00 16 /min [facility] Oxygen saturation in Arterial blood by Pulse oximetry 2024-11-19 04:41:00 99 /min [facility] Body height 2024-11-19 03:00:00 157.5 cm [facility] Body weight 2024-11-19 03:00:00 86.183 kg [facility] BMI 2024-11-19 03:00:00 34.75 kg/m2 [facility] Systolic blood pressure 2024-11-09 04:37:00 130 mm[Hg] [facility] Diastolic blood pressure 2024-11-09 04:37:00 89 mm[Hg] [facility] Heart rate 2024-11-09 04:37:00 88 /min [facility] Body temperature 2024-11-09 04:37:00 37 Jennifer [facility] Respiratory rate 2024-11-09 04:37:00 19 /min [facility] Body height 2024-11-09 04:37:00 157.5 cm [facility] Body weight 2024-11-09 04:37:00 81.647 kg [facility] BMI 2024-11-09 04:37:00 32.92 kg/m2 [facility] Oxygen saturation in Arterial blood by Pulse oximetry 2024-11-09 04:37:00 100 /min [facility] Systolic blood pressure 2024-07-25 14:30:00 124 mm[Hg] [facility] Diastolic blood pressure 2024-07-25 14:30:00 83 mm[Hg] [facility] Heart rate 2024-07-25 14:30:00 88 /min [facility] Respiratory rate 2024-07-25 14:30:00 14 /min [facility] Oxygen saturation in Arterial blood by Pulse oximetry 2024-07-25 14:30:00 99 /min [facility] Body temperature 2024-07-25 12:49:00 37.22 Jennifer [facility] Body height 2024-07-25 12:49:00 157.5 cm [facility] Body weight 2024-07-25 12:49:00 86.637 kg [facility] BMI 2024-07-25 12:49:00 34.93 kg/m2 [facility] Systolic blood pressure 2024-07-04 10:38:00 117 mm[Hg] [facility] Diastolic blood pressure 2024-07-04 10:38:00 79 mm[Hg] [facility] Heart rate 2024-07-04 10:38:00 82 [facility] 2024-07-04 10:38:00 36.89 Jennifer [facility] Respiratory rate 2024-07-04 10:38:00 14 /min [facility] Oxygen saturation in Arterial blood by Pulse oximetry 2024-07-04 10:38:00 100 /min [facility] Body height 2024-07-04 07:28:00 157.5 cm [facility] Body weight 2024-07-04 07:28:00 79.379 kg [facility] BMI 2024-07-04 07:28:00 32.01 kg/m2 [facility] Systolic blood pressure 2024-03-12 11:00:00 127 mm[Hg] [facility] Diastolic blood pressure 2024-03-12 11:00:00 94 mm[Hg] [facility] Heart rate 2024-03-12 11:00:00 84 /min [facility] Body temperature 2024-03-12 11:00:00 36.61 Jennifer [facility] Respiratory rate 2024-03-12 11:00:00 14 /min [facility] Oxygen saturation in Arterial blood by Pulse oximetry 2024-03-12 11:00:00 100 /min [facility] Body height 2024-03-12 07:04:00 157.5 cm [facility] Body weight 2024-03-12 07:04:00 87 kg [facility] BMI 2024-03-12 07:04:00 35.08 kg/m2 [facility] Systolic blood pressure 2024-02-03 12:00:00 121 mm[Hg] [facility] Diastolic blood pressure 2024-02-03 12:00:00 82 mm[Hg] [facility] Heart rate 2024-02-03 12:00:00 80 /min [facility] Respiratory rate 2024-02-03 12:00:00 17 /min [facility] Oxygen saturation in Arterial blood by Pulse oximetry 2024-02-03 12:00:00 100 /min [facility] Body temperature 2024-02-03 09:01:00 37.33 Jennifer [facility] Body height 2024-02-03 09:01:00 157.5 cm [facility] Body weight 2024-02-03 09:01:00 81.647 kg [facility] BMI 2024-02-03 09:01:00 32.92 kg/m2 [facility] Systolic blood pressure 2024-01-02 05:38:00 109 mm[Hg] [facility] Diastolic blood pressure 2024-01-02 05:38:00 91 mm[Hg] [facility] Heart rate 2024-01-02 05:38:00 93 /min [facility] Body temperature 2024-01-02 05:38:00 36.28 Jennifer [facility] Respiratory rate 2024-01-02 05:38:00 20 /min [facility] Oxygen saturation in Arterial blood by Pulse oximetry 2024-01-02 05:38:00 99 /min [facility] Body height 2024-01-02 03:25:00 157.5 cm [facility] Body weight 2024-01-02 03:25:00 81.647 kg [facility] BMI 2024-01-02 03:25:00 32.92 kg/m2 [facility] Systolic blood pressure 2023-12-26 08:51:00 115 mm[Hg] [facility] Diastolic blood pressure 2023-12-26 08:51:00 78 mm[Hg] [facility] Heart rate 2023-12-26 08:51:00 98 /min [facility] Body temperature 2023-12-26 08:51:00 37.5 Jennifer [facility] Respiratory rate 2023-12-26 08:51:00 12 /min [facility] Body height 2023-12-26 08:51:00 157.5 cm [facility] Body weight 2023-12-26 08:51:00 85.322 kg [facility] BMI 2023-12-26 08:51:00 34.40 kg/m2 [facility] Oxygen saturation in Arterial blood by Pulse oximetry 2023-12-26 08:51:00 100 /min [facility] Systolic blood pressure 2023-11-20 16:29:00 120 mm[Hg] [facility] Diastolic blood pressure 2023-11-20 16:29:00 89 mm[Hg] [facility] Heart rate 2023-11-20 16:29:00 85 /min [facility] Respiratory rate 2023-11-20 16:29:00 16 /min [facility] Oxygen saturation in Arterial blood by Pulse oximetry 2023-11-20 16:29:00 97 /min [facility] Body temperature 2023-11-20 12:44:00 37.11 Jennifer [facility] Body height 2023-11-20 12:44:00 157.5 cm [facility] Body weight 2023-11-20 12:44:00 82.101 kg [facility] BMI 2023-11-20 12:44:00 33.11 kg/m2 [facility] Systolic blood pressure 2023-11-12 06:09:00 135 mm[Hg] [facility] Diastolic blood pressure 2023-11-12 06:09:00 86 mm[Hg] [facility] Heart rate 2023-11-12 06:09:00 89 /min [facility] Body temperature 2023-11-12 06:09:00 37.28 Jennifer [facility] Respiratory rate 2023-11-12 06:09:00 16 /min [facility] Body height 2023-11-12 06:09:00 157.5 cm [facility] Body weight 2023-11-12 06:09:00 83.553 kg [facility] BMI 2023-11-12 06:09:00 33.69 kg/m2 [facility] Oxygen saturation in Arterial blood by Pulse oximetry 2023-11-12 06:09:00 100 /min [facility] Systolic blood pressure 2023-10-28 02:30:00 121 mm[Hg] [facility] Diastolic blood pressure 2023-10-28 02:30:00 80 mm[Hg] [facility] Heart rate 2023-10-28 02:30:00 124 /min [facility] Body temperature 2023-10-28 02:30:00 38 Jennifer [facility] Respiratory rate 2023-10-28 02:30:00 20 /min [facility] Body weight 2023-10-28 02:30:00 86.183 kg [facility] BMI 2023-10-28 02:30:00 34.75 kg/m2 [facility] Oxygen saturation in Arterial blood by Pulse oximetry 2023-10-28 02:30:00 96 /min [facility] Systolic blood pressure 2023-09-09 02:47:12 116 mm[Hg] [facility] Diastolic blood pressure 2023-09-09 02:47:12 85 mm[Hg] [facility] Heart rate 2023-09-09 02:47:12 78 /min [facility] Body temperature 2023-09-09 02:47:12 36.28 Jennifer [facility] Respiratory rate 2023-09-09 02:47:12 18 /min [facility] Oxygen saturation in Arterial blood by Pulse oximetry 2023-09-09 02:47:12 98 /min [facility] Body height 2023-09-09 00:30:00 157.5 cm [facility] Body weight 2023-09-09 00:30:00 85.276 kg [facility] BMI 2023-09-09 00:30:00 34.39 kg/m2 [facility] Systolic blood pressure 2023-09-07 12:45:00 119 mm[Hg] [facility] Diastolic blood pressure 2023-09-07 12:45:00 83 mm[Hg] [facility] Heart rate 2023-09-07 12:45:00 101 /min [facility] Body temperature 2023-09-07 12:45:00 37.5 Jennifer [facility] Respiratory rate 2023-09-07 12:45:00 18 /min [facility] Body height 2023-09-07 12:45:00 157.5 cm [facility] Body weight 2023-09-07 12:45:00 82.872 kg [facility] BMI 2023-09-07 12:45:00 33.42 kg/m2 [facility] Oxygen saturation in Arterial blood by Pulse oximetry 2023-09-07 12:45:00 99 /min [facility] Systolic blood pressure 2023-09-04 04:00:00 112 mm[Hg] [facility] Diastolic blood pressure 2023-09-04 04:00:00 97 mm[Hg] [facility] Heart rate 2023-09-04 04:00:00 94 /min [facility] Body temperature 2023-09-04 04:00:00 36.89 Jennifer [facility] Oxygen saturation in Arterial blood by Pulse oximetry 2023-09-04 04:00:00 98 /min [facility] Respiratory rate 2023-09-04 03:00:00 17 /min [facility] Body height 2023-09-04 00:54:00 157.5 cm [facility] Body weight 2023-09-04 00:54:00 83.915 kg [facility] BMI 2023-09-04 00:54:00 33.84 kg/m2 [facility] Systolic blood pressure 2023-08-04 04:05:00 139 mm[Hg] [facility] Diastolic blood pressure 2023-08-04 04:05:00 77 mm[Hg] [facility] Heart rate 2023-08-04 04:05:00 104 /min [facility] Body temperature 2023-08-04 04:05:00 36.72 Jennifer [facility] Respiratory rate 2023-08-04 04:05:00 16 /min [facility] Body height 2023-08-04 04:05:00 157.5 cm [facility] Body weight 2023-08-04 04:05:00 85.957 kg [facility] BMI 2023-08-04 04:05:00 34.66 kg/m2 [facility] Oxygen saturation in Arterial blood by Pulse oximetry 2023-08-04 04:05:00 100 /min [facility] Systolic blood pressure 2023-07-26 07:38:00 134 mm[Hg] [facility] Diastolic blood pressure 2023-07-26 07:38:00 95 mm[Hg] [facility] Heart rate 2023-07-26 07:38:00 114 /min [facility] Body temperature 2023-07-26 07:38:00 37.28 Jennifer [facility] Respiratory rate 2023-07-26 07:38:00 18 /min [facility] Body height 2023-07-26 07:38:00 157.5 cm Univ [facility] Body weight 2023-07-26 07:38:00 86.183 kg [facility] BMI 2023-07-26 07:38:00 34.75 kg/m2 [facility] Oxygen saturation in Arterial blood by Pulse oximetry 2023-07-26 07:38:00 99 /min [facility] Systolic blood pressure 2023-07-25 14:52:00 126 mm[Hg] [facility] Diastolic blood pressure 2023-07-25 14:52:00 96 mm[Hg] [facility] Heart rate 2023-07-25 14:52:00 98 /min [facility] Body temperature 2023-07-25 14:52:00 37 Jennifer [facility] Respiratory rate 2023-07-25 14:52:00 16 /min [facility] Oxygen saturation in Arterial blood by Pulse oximetry 2023-07-25 14:52:00 98 /min [facility] Body height 2023-07-25 12:33:00 157.5 cm Univ [facility] Body weight 2023-07-25 12:33:00 86.456 kg [facility] BMI 2023-07-25 12:33:00 34.86 kg/m2 Univ [facility] Systolic blood pressure 2023-07-12 12:34:00 127 mm[Hg] [facility] Diastolic blood pressure 2023-07-12 12:34:00 86 mm[Hg] [facility] Heart rate 2023-07-12 12:34:00 86 /min [facility] Body temperature 2023-07-12 12:34:00 36.72 Jennifer [facility] Respiratory rate 2023-07-12 12:34:00 16 /min [facility] Body height 2023-07-12 12:34:00 157.5 cm [facility] 2023-07-12 12:34:00 86.183 kg Univ [facility] BMI 2023-07-12 12:34:00 34.75 kg/m2 [facility] Oxygen saturation in Arterial blood by Pulse oximetry 2023-07-12 12:34:00 98 /min [facility] Systolic blood pressure 2023-06-24 10:24:00 118 mm[Hg] [facility] Diastolic blood pressure 2023-06-24 10:24:00 89 mm[Hg] [facility] Heart rate 2023-06-24 10:24:00 95 /min [facility] Body temperature 2023-06-24 10:24:00 36.78 Jennifer [facility] Respiratory rate 2023-06-24 10:24:00 18 /min [facility] Body height 2023-06-24 10:24:00 157.5 cm [facility] Body weight 2023-06-24 10:24:00 89.812 kg [facility] BMI 2023-06-24 10:24:00 36.21 kg/m2 [facility] Oxygen saturation in Arterial blood by Pulse oximetry 2023-06-24 10:24:00 100 /min [facility] Systolic blood pressure 2023-06-18 04:52:00 113 mm[Hg] [facility] Diastolic blood pressure 2023-06-18 04:52:00 82 mm[Hg] [facility] Heart rate 2023-06-18 04:52:00 100 /min [facility] Body temperature 2023-06-18 04:52:00 37.39 Jennifer [facility] Respiratory rate 2023-06-18 04:52:00 18 /min [facility] Body height 2023-06-18 04:52:00 157.5 cm [facility] Body weight 2023-06-18 04:52:00 89.903 kg [facility] BMI 2023-06-18 04:52:00 36.25 kg/m2 [facility] Oxygen saturation in Arterial blood by Pulse oximetry 2023-06-18 04:52:00 100 /min [facility] Systolic blood pressure 2023-06-12 09:00:00 105 mm[Hg] [facility] Diastolic blood pressure 2023-06-12 09:00:00 74 mm[Hg] [facility] Heart rate 2023-06-12 09:00:00 74 /min [facility] Respiratory rate 2023-06-12 09:00:00 16 /min [facility] Oxygen saturation in Arterial blood by Pulse oximetry 2023-06-12 09:00:00 97 /min [facility] Body temperature 2023-06-12 04:09:00 36.89 Jennifer [facility] Body height 2023-06-12 04:09:00 157.5 cm [facility] Body weight 2023-06-12 04:09:00 86.183 kg [facility] BMI 2023-06-12 04:09:00 34.75 kg/m2 [facility] Systolic blood pressure 2023-05-28 08:00:00 123 mm[Hg] [facility] Diastolic blood pressure 2023-05-28 08:00:00 78 mm[Hg] [facility] Heart rate 2023-05-28 08:00:00 93 /min [facility] in Arterial blood by Pulse oximetry 2023-05-28 08:00:00 99 /min [facility] Respiratory rate 2023-05-28 06:00:00 18 /min [facility] Body temperature 2023-05-28 05:37:00 35.72 Jennifer [facility] Body height 2023-05-28 05:37:00 157.5 cm Univ [facility] Body weight 2023-05-28 05:37:00 87.136 kg [facility] BMI 2023-05-28 05:37:00 35.14 kg/m2 [facility] Systolic blood pressure 2023-03-07 03:59:00 122 mm[Hg] [facility] Diastolic blood pressure 2023-03-07 03:59:00 77 mm[Hg] [facility] Heart rate 2023-03-07 03:59:00 97 /min [facility] Body temperature 2023-03-07 03:59:00 36.67 Jennifer [facility] Respiratory rate 2023-03-07 03:59:00 18 /min [facility] Body height 2023-03-07 03:59:00 157.5 cm [facility] Body weight 2023-03-07 03:59:00 79.379 kg [facility] BMI 2023-03-07 03:59:00 32.01 kg/m2 [facility] Oxygen saturation in Arterial blood by Pulse oximetry 2023-03-07 03:59:00 99 /min [facility] Heart rate 2023-02-02 07:48:00 73 /min [facility] Oxygen saturation in Arterial blood by Pulse oximetry 2023-02-02 07:48:00 98 /min [facility] Systolic blood pressure 2023-02-02 07:00:00 122 mm[Hg] [facility] Diastolic blood pressure 2023-02-02 07:00:00 79 mm[Hg] [facility] Respiratory rate 2023-02-02 07:00:00 15 /min [facility] Body temperature 2023-02-02 06:07:00 36.94 Jennifer [facility] Body height 2023-02-02 06:07:00 157.5 cm [facility] Body weight 2023-02-02 06:07:00 79.379 kg Univ [facility] BMI 2023-02-02 06:07:00 32.01 kg/m2 [facility] Systolic blood pressure 2022-10-24 21:42:00 114 mm[Hg] [facility] Diastolic blood pressure 2022-10-24 21:42:00 74 mm[Hg] [facility] Heart rate 2022-10-24 21:42:00 72 /min [facility] Respiratory rate 2022-10-24 21:42:00 16 /min [facility] Oxygen saturation in Arterial blood by Pulse oximetry 2022-10-24 21:42:00 99 /min [facility] Body temperature 2022-10-24 18:03:00 37.33 Jennifer [facility] Body height 2022-10-24 18:03:00 157.5 cm [facility] Body weight 2022-10-24 18:03:00 79.379 kg [facility] BMI 2022-10-24 18:03:00 32.01 kg/m2 [facility] Systolic blood pressure 2022-07-21 12:46:00 115 mm[Hg] [facility] Diastolic blood pressure 2022-07-21 12:46:00 83 mm[Hg] [facility] Heart rate 2022-07-21 12:46:00 82 /min Un[facility] Body temperature 2022-07-21 12:46:00 36.89 Jennifer [facility] Respiratory rate 2022-07-21 12:46:00 18 /min [facility] Body weight 2022-07-21 12:46:00 78.019 kg [facility] BMI 2022-07-21 12:46:00 31.46 kg/m2 [facility] Oxygen saturation in Arterial blood by Pulse oximetry 2022-07-21 12:46:00 99 /min [facility] Systolic blood pressure 2022-05-19 22:00:00 128 mm[Hg] [facility] Diastolic blood pressure 2022-05-19 22:00:00 68 mm[Hg] [facility] Heart rate 2022-05-19 22:00:00 78 /min [facility] Body temperature 2022-05-19 22:00:00 36.78 Jennifer [facility] Respiratory rate 2022-05-19 22:00:00 18 /min [facility] Oxygen saturation in Arterial blood by Pulse oximetry 2022-05-19 22:00:00 100 /min [facility] Body height 2022-05-19 20:31:00 157.5 cm [facility] Body weight 2022-05-19 20:31:00 78.019 kg [facility] BMI 2022-05-19 20:31:00 31.46 kg/m2 Univ [facility] Heart rate 2022-05-13 08:30:00 83 /min Un[facility] Oxygen saturation in Arterial blood by Pulse oximetry 2022-05-13 08:30:00 99 /min [facility] Systolic blood pressure 2022-05-13 08:00:00 111 mm[Hg] [facility] Diastolic blood pressure 2022-05-13 08:00:00 80 mm[Hg] [facility] Body temperature 2022-05-13 07:05:00 37 Jennifer [facility] Respiratory rate 2022-05-13 07:05:00 18 /min [facility] Body height 2022-05-13 07:05:00 157.5 cm [facility] Body weight 2022-05-13 07:05:00 76.658 kg [facility] BMI 2022-05-13 07:05:00 30.91 kg/m2 [facility] Systolic blood pressure 2022-04-01 21:47:00 124 mm[Hg] [facility] Diastolic blood pressure 2022-04-01 21:47:00 84 mm[Hg] [facility] Heart rate 2022-04-01 21:47:00 89 /min [facility] Body temperature 2022-04-01 21:47:00 37.22 Jennifer [facility] Respiratory rate 2022-04-01 21:47:00 22 /min [facility] Body weight 2022-04-01 21:47:00 77.111 kg Univ [facility] BMI 2022-04-01 21:47:00 29.18 kg/m2 [facility] Oxygen saturation in Arterial blood by Pulse oximetry 2022-04-01 21:47:00 99 /min [facility] Systolic blood pressure 2021-10-25 19:42:00 103 mm[Hg] [facility] Diastolic blood pressure 2021-10-25 19:42:00 74 mm[Hg] [facility] Heart rate 2021-10-25 19:42:00 94 /min [facility] Body temperature 2021-10-25 19:42:00 37.67 Jennifer [facility] Respiratory rate 2021-10-25 19:42:00 18 /min [facility] Body weight 2021-10-25 19:42:00 70.761 kg [facility] BMI 2021-10-25 19:42:00 26.78 kg/m2 [facility] Oxygen saturation in Arterial blood by Pulse oximetry 2021-10-25 19:42:00 99 /min [facility] BP Systolic 2024-12-19 08:33:00 128 mm[Hg] Step hen F Edilson BP Diastolic 2024-12-19 08:33:00 74 mm[Hg] Osito phen F Edilson Weight Measured 2024-12-19 08:33:00 184.20 pounds Darryl F Edilson Height Measured 2024-12-19 08:33:00 63.00 inches Darryl F [place] Body Temperature 2024-12-19 08:33:00 98.10 degrees Darryl [...] 2022-09-25 10:10:00 18.00 /min Darryl F [facility] Respiratory Rate 2022-05-19 08:57:00 16.00 /min BP Systolic 2022-05-19 08:57:00 110 mm[Hg] BP Diastolic 2022-05-19 08:57:00 78 mm[Hg] Weight Measured 2022-05-19 08:57:00 172.20 pounds Height Measured 2022-05-19 08:57:00 63.00 inches Body Temperature 2022-05-19 08:57:00 98.10 degrees Heart Rate 2022-05-19 08:57:00 97.00 /min BP Systolic 2021-10-28 13:20:00 112 mm[Hg] [...] 9V) VACCINE 2025-05-08 13:05:30 Viry De Anda [facility] CT ABDOMEN PELVIS W CONTRAST 2025-04-14 14:52:00 Hermilo Ricks [facility] URINALYSIS 2025-04-14 14:33:00 Hermilo [facility]icks [facility] LIPASE 2025-04-14 13:43:00 Hermilo Ricks [facility] COMP. METABOLIC PANEL ([id number]) 2025-04-14 13:43:00 Hermilo Ricks [facility] CBC WITH DIFF 2025-04-14 13:43:00 Hermilo Ricks [facility] US OVARY TORSION 2025-03-09 05:02:45 Doni Marie [facility] POCT TEST 2025-03-09 03:04:00 Ryan Marie [facility] LIPASE 2025-03-09 03:03:00 Doni Marie [facility] COMP. METABOLIC PANEL ([id number]) 2025-03-09 03:03:00 Doni Marie [facility] CBC WITH DIFF 2025-03-09 03:03:00 Doni Marie [facility] URINALYSIS 2025-03-09 03:03:00 Doni Marie [facility] GARDASIL 9 (HPV 9V) VACCINE 2025-02-04 19:21:47 Carolyn Miller [facility] POCT TEST 2025-02-04 00:00:00 Kaye House [facility] POCT GLUCOSE(AGE >30DAYS) 2025-01-27 18:48[facility] 2025-01-27 18:45:00 [facility]EL[facility] W CONTRAST 2025-01-17 08:40:02 Selene Parra [facility] POCT TEST 2025-01-17 07:32:00 Selene Parra [facility] LIPASE 2025-01-17 07:29:00 Selene Parra [facility] COMP. METABOLIC PANEL ([id number]) 2025-01-17 07:29:00 Selene Parra [facility] CBC WITH DIFF 2025-01-17 07:29:00 Selene Parra [facility] URINALYSIS 2025-01-17 07:29:00 Selene Parra [facility] CT ABDOMEN PELVIS W CONTRAST 2025-01-05 12:26:37 Singer [facility] POCT TEST 2025-01-05 11:58:00 Jeanine Ricks [facility] URINALYSIS 2025-01-05 10:42:00 Singer [facility] XR CHEST 1 VW 2025-01-05 10:39:55 Singer [facility] COMP. METABOLIC PANEL ([id number]) 2025-01-05 10:16:00 Singer [facility] CBC WITH DIFF 2025-01-05 10:16:00 Ricks [facility] INFLUENZA A/B RSV COVID NAAT 2025-01-05 10:16:00 Singer [facility] [id number] Colposcopy Entire Vagina W/cervix If Present 2024-12-19 00:00:00 Darryl Waggoner POCT TEST 2024-12-18 06:15:00 Martha Terry [facility] COMP. METABOLIC PANEL ([id number]) 2024-12-18 06:13:00 Gaby Terry [facility] CBC WITH DIFF 2024-12-18 06:13:00 [facility] 2024-12-18 06:13:00 [facility] ABDOMEN ACUTE SERIES 2024-07-25 14:37:21 Do jasmina Marie [facility] POCT TEST 2024-07-25 13:23:00 Ryan Marie [facility] LIPASE 2024-07-25 13:21:00 Doni Marie [facility] COMP. METABOLIC PANEL ([id number]) 2024-07-25 13:21:00 Marie, [facility] CBC WITH DIFF 2024-07-25 [facility]25 13:21:00 [place] [facility] URINE DRUG ([id number]) - COMPREHENSIVE DRUG SCREEN W/O REFLEX 2024-07-25 13:21:00 Frank [facility] CT ABDOMEN PELVIS W CONTRAST 2024-07-04 08:54:02 Selene Parra [facility] POCT TEST 2024-07-04 07:36:00 Selene Parra [facility] LIPASE 2024-07-04 07:33:00 [facility]. METABOLIC PANEL ([id number]) 2024-07-04 07:33:00 Selene Parra [facility] CBC WITH DIFF 2024-07-04 07:33:00 Selene Parra [facility] URINALYSIS 2024-07-04 07:33:00 Selene Parra [facility] CT ABDOMEN PELVIS W CONTRAST 2024-03-12 09:15:57 Selene Parra [facility] LIPASE 2024-03-12 09:01:00 Selene Parra [facility] COMP. METABOLIC PANEL ([id number]) 2024-03-12 09:01:00 Selene Parra [facility] CBC WITH DIFF 2024-03-12 09:01:00 Selene Parra [facility] EBV-MONONUCLEOSIS SCREEN 2024-02-03 10:22:00 Funmilayo Parra [facility] CT ABDOMEN PELVIS W CONTRAST 2024-02-03 10:08:28 Selene Parra [facility] POCT TEST 2024-02-03 09:09:00 Selene Parra [facility] LIPASE 2024-02-03 09:06:00 Selene Parra [facility] COMP. METABOLIC PANEL ([id number]) 2024-02-03 09:06:00 Selene Parra [facility] CBC WITH DIFF 2024-02-03 09:06:00 Selene Parra [facility] URINALYSIS 2024-02-03 09:06:00 Selene Parra [facility] RAPID STREP SCREEN FOR GROUP A 2024-02-03 09:06:00 Selene Parra [facility] ASSIGNMENT OF BENEFITS 2024-01-02 04:22:29 Docto r Unassigned, [address] [facility] RAPID STREP SCREEN FOR GROUP A 2024-01-02 04:20:00 Doni Marie [facility] RAPID INFLUENZA A/B 2024-01-02 03:50:00 Ryan Marie [facility] COVID-19 (ID NOW RAPID TESTING) 2024-01-02 03:50:00 Doni Marie [facility] CONSENT/REFUSAL FOR DIAGNOSIS AND TREATMENT 2024-01-02 03:16:29 Doctor Unassigned, [address] [facility] CONSENT/REFUSAL FOR DIAGNOSIS AND TREATMENT 2023-12-26 08:43:59 Doctor Unassigned, [address] [facility] [id number] Colposcopy Cervix Endocervical Curettage 2023-12-17 00:00:00 Darryl Waggoner US OVARY TORSION 2023-11-20 16:01:25 Doni Marie [facility] CT ABDOMEN PELVIS W CONTRAST 2023-11-20 14:40:23 Doni Marie [facility] COMP. METABOLIC PANEL ([id number]) 2023-11-20 13:27:00 Doni Marie [facility] CBC WITH DIFF 2023-11-20 13:27:00 Doni Marie [facility] URINALYSIS 2023-11-20 13:27[facility]00 [facility] 2023-11-20 13:26:00 Ryan Marie [facility] CONSENT/REFUSAL FOR DIAGNOSIS AND TREATMENT 2023-11-20 12:37:06 Doctor Unassigned, [address] [facility] CONSENT/REFUSAL FOR DIAGNOSIS AND TREATMENT 2023-11-12 06:04:20 Doctor Unassigned, [address] [facility] CONSENT/REFUSAL FOR DIAGNOSIS AND TREATMENT 2023-10-28 02:10:42 Doctor Unassigned, [address] [facility] URINALYSIS 2023-09-09 02:35:00 Danie Ontiveros [facility] XR KUB 2023-09-09 01:28:00 Danie Ontiveros U [facility] CT LUMBAR SPINE WO CONTRAST 2023-09-09 01:02:05 Danie Ontiveros [facility] CONSENT/REFUSAL FOR DIAGNOSIS AND TREATMENT 2023-09-09 00:05:52 Doctor Unassigned, [address] [facility] POCT TEST 2023-09-07 13:28:00 Juli Srivastava ra [facility] URINALYSIS 2023-09-07 13:27:00 Chayo Srivastava Un [facility] CONSENT/REFUSAL FOR DIAGNOSIS AND TREATMENT 2023-09-07 12:42:21 Doctor Unassigned, [address] [facility] COMP. METABOLIC PANEL ([id number]) 2023-09-04 02:29:00 Selene Parra [facility] CBC WITH DIFF 2023-09-04 02:29:00 Selene Parra Uni [facility] RAPID INFLUENZA A/B 2023-09-04 02:26:00 Selene Parra [facility] COVID-19 (ID NOW RAPID TESTING) 2023-09-04 02:26:00 Selene Parra [facility] ASSIGNMENT OF BENEFITS 2023-09-04 02:07:25 Docto r Unassigned, [address] [facility] CONSENT/REFUSAL FOR DIAGNOSIS AND TREATMENT 2023-09-04 00:46:16 Doctor Unassigned, [address] [facility] CONSENT/REFUSAL FOR DIAGNOSIS AND TREATMENT 2023-08-04 03:55:32 Doctor Unassigned, [address] [facility] URINALYSIS 2023-07-26 08:52:00 [facility]o [facility] URIN[facility]YSIS 2023-07-26 08:20:00 Memo [facility] ASSIGNMENT OF BENEFITS 2023-07-26 08:05:43 Docto r Unassigned, [address] [facility] CONSENT/REFUSAL FOR DIAGNOSIS AND TREATMENT 2023-07-26 07:33:52 Doctor Unassigned, [address] [facility] RAPID STREP SCREEN FOR GROUP A 2023-07-25 13:40:00 Danii Arriaga [facility] RAPID INFLUENZA A/B 2023-07-25 13:40:00 Minal Arriaga [facility] COVID-19 (ID NOW RAPID TESTING) 2023-07-25 13:40:00 Danii Arriaga [facility] XR CHEST 2 VW 2023-07-25 13:26:06 Danii Arriaga [facility] ASSIGNMENT OF BENEFITS 2023-07-25 13:17:29 Docto r Unassigned, [address] [facility] CONSENT/REFUSAL FOR DIAGNOSIS AND TREATMENT 2023-07-25 12:29:51 Doctor Unassigned, [address] [facility] XR CHEST 2 VW 2023-07-12 13:13:00 Doni Marie [facility] POCT TEST 2023-07-12 12:56:00 Ryan Marie [facility] CONSENT/REFUSAL FOR DIAGNOSIS AND TREATMENT 2023-07-12 12:27:58 Doctor Unassigned, [address] [facility] [id number] Colposcopy Cervix Uppr/adjcnt Vagina W/cervix Bx 2023-06-26 00:00:00 Darryl Waggoner [id number] Endometrial Bx W/wo Endocervix Bx W/o Dilat Spx 2023-06-26 00:00:00 Darryl Waggoner CONSENT/REFUSAL FOR DIAGNOSIS AND TREATMENT 2023-06-24 10:15:34 Doctor Unassigned, [address] [facility] RAPID INFLUENZA A/B 2023-06-18 05:03:00 Michelle Terry [facility] RAPID RSV 2023-06-18 05:03:00 Michelle Terry [facility] COVID-19 (ID NOW RAPID TESTING) 2023-06-18 05:03:00 Michelle Terry [facility] CONSENT/REFUSAL FOR DIAGNOSIS AND TREATMENT 2023-06-18 04:46:39 Doctor Unassigned, [facility] US OVARY TORSION 2023-06-12 08:14:06 [facility] 2023-06-12 05:07:00 Raven Lieberman [facility] COMP. METABOLIC PANEL (28318) 2023-06-12 05:02:00 Raven Lieberman [facility] CBC WITH DIFF 2023-06-12 05:02:00 Raven Lieberman [facility] URINALYSIS 2023-06-12 05:02:00 Raven Lieberman [facility] NOTICE OF PRIVACY PRACTICES 2023-06-12 04:10:01 Doctor Unassigned, [facility] CONSENT/REFUSAL FOR DIAGNOSIS AND TREATMENT 2023-06-12 04:06:29 Doctor Unassigned, [facility] CT ABDOMEN PELVIS W CONTRAST 2023-05-28 07:44:47 Raven Lieberman [facility] POCT TEST 2023-05-28 06:40:00 Raven Lieberman [facility] COMP. METABOLIC PANEL (68148) 2023-05-28 06:34:00 Raven Lieberman [facility] CBC WITH DIFF 2023-05-28 06:34:00 Raven Lieberman [facility] URINALYSIS 2023-05-28 06:34:00 Raven Lieberman [facility] CONSENT/REFUSAL FOR DIAGNOSIS AND TREATMENT 2023-05-28 05:25:17 Doctor Unassigned, [facility] [address] Removal Impacted Cerumen Using Irrigation/lavage, Unilateral 2023-04-30 00:00:00 Darryl Waggoner ASSIGNMENT OF BENEFITS 2023-03-07 04:54:51 Docto r Unassigned, [facility] RAPID STREP SCREEN FOR GROUP A 2023-03-07 03:52:00 Hermilo Ricks [facility] CONSENT/REFUSAL FOR DIAGNOSIS AND TREATMENT 2023-03-07 02:58:48 Doctor Unassigned, [facility] BASIC METABOLIC PANEL (NA, K, CL, CO2, GLUCOSE, BUN, CREATININE, CA) 2023-02-02 06:41:00 Selene Parra [facility] CBC WITH DIFF 2023-02-02 06:41:00 Selene Parra Uni [facility] POCT TEST 2023-02-02 06:17:00 Selene Parra [facility] NOTICE OF PRIVACY PRACTICES 2023-02-02 06:00:34 Doctor Unassigned, [facility] CONSENT/REFUSAL FOR DIAGNOSIS AND TREATMENT 2023-02-02 05:59:54 Doctor Unassigned, [facility] CT ABDOMEN PELVIS W CONTRAST 2022-10-24 20:00:18 Suraj Scott [facility] US OVARY TORSION 2022-10-24 19:43:53 Suraj Scott [facility] LIPASE 2022-10-24 18:58:00 Suraj Scott [facility] COMP. METABOLIC PANEL ([id number]) 2022-10-24 18:58:00 Suraj Scott [facility] CBC WITH DIFF 2022-10-24 18:58:00 [facility] 2022-10-24 18:58:00 Suraj Scott Uni [facility] POCT TEST 2022-10-24 18:58:00 Odessa Scott [facility] CBC WITH DIFF 2022-07-21 13:07:00 Hermilo Ricks [facility] POCT TEST 2022-07-21 12:55:00 Jeanine Ricks [facility] URINALYSIS 2022-07-21 12:52:00 [facility]US[facility] FOR [facility]AGNOSIS AND TREATMENT 2022-07-21 12:44:40 Doctor Unassigned, [facility] CT ABDOMEN PELVIS W CONTRAST 2022-05-19 21:32:53 Cat Rutledge [facility] LIPASE 2022-05-19 20:49:00 Cat Rutledge [facility] COMP. METABOLIC PANEL (65291) 2022-05-19 20:49:00 Cat Rutlegde [facility] CBC WITH DIFF 2022-05-19 20:49:00 Cat Rutledge [facility] URINALYSIS 2022-05-19 20:49:00 Cat Rutledge [facility] POCT TEST 2022-05-19 20:49:00 Paxton Rutledge [facility] URINE DRUG (IMMUNOASSAY) - COMPREHENSIVE DRUG SCREEN W/O REFLEX 2022-05-19 20:49:00 Cat Rutledge [facility] CONSENT/REFUSAL FOR DIAGNOSIS AND TREATMENT 2022-05-19 20:16:10 Doctor Unassigned, [facility] POCT TEST 2022-05-13 07:37:00 Selene Parra [facility] LIPASE 2022-05-13 07:32:00 Selene Parra [facility] COMP. METABOLIC PANEL (72676) 2022-05-13 07:32:00 Selene Parra [facility] CBC WITH DIFF 2022-05-13 07:32:00 Selene Parra [facility] URINALYSIS 2022-05-13 07:32:00 Selene Parra [facility] CONSENT/REFUSAL FOR DIAGNOSIS AND TREATMENT 2022-05-13 06:55:55 Doctor Unassigned, [facility] XR ANKLE <3 VW RIGHT 2022-04-01 22:28:50 Deny Rg [facility] URINALYSIS 2022-04-01 22:21:00 Christy Rg [facility] POCT TEST 2022-04-01 22:19:00 Christy Rg [facility] CONSENT/REFUSAL FOR DIAGNOSIS AND TREATMENT 2022-04-01 21:40:47 Doctor Unassigned, [facility] POCT TEST 2021-10-25 19:54:00 Lisa Tran [facility] URINALYSIS 2021-10-25 19:53:00 Lisa Tran [facility] CONSENT/REFUSAL FOR DIAGNOSIS AND TREATMENT 2021-10-25 19:34:46 Doctor Unassigned, [facility] NOTICE OF PRIVACY PRACTICES 2021-10-25 19:34:06 Doctor Unassigned, [facility] Plan of Care Planned Activity Planned Date Details Comments Source Goal Plan of Care Note [code = 29169-4] Goal Plan of Care Note [code = 45900-2] Goal Plan of Care Note [code = 03421-2] Goal Plan of Care Note [code = 41703-0] Goal Plan of Care Note [code = 63113-3] Goal Plan of Care Note [code = 59441-6] Goal Plan of Care Note [code = 84867-8] Goal Plan of Care Note [code = 71315-9] Goal Plan of Care Note [code = 24813-8] Goal Plan of Care Note [code = 63354-1] Goal Plan of Care Note [code = 76388-3] Goal Plan of Care Note [code = 27063-2] Goal Plan of Care Note [code = 74309-0] Goal Plan of Care Note [code = 48144-0] Goal Plan of Care Note [code = 76249-8] Goal Plan of Care Note [code = 00437-0] Goal Plan of Care Note [code = 42128-5] Goal Plan of Care Note [code = 72561-1] Goal Plan of Care Note [code = 37947-7] Goal Plan of Care Note [code = 10794-2] Goal Plan of Care Note [code = 90369-8] Goal Plan of Care Note [code = 95630-8] Goal Plan of Care Note [code = 80108-8] Goal Plan of Care Note [code = 38780-2] Goal Plan of Care Note [code = 82322-8] Encounters Start Date/Time End Date/Time Encounter Type Admission Type Attending Clinicians Care Facility Care Department Encounter ID Source 2025-05-08 08:15:00 2025-05-08 08:15:00 Nurse Visit Nurse, Ang Rmchp Rgv Cprit Obgyn Lesa Felipe Nurse, Dat Rmchp Rgv Cprit Obgyn [facility] 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 [facility] 1.2.840.114 350.1.13.10 4.2.7.2.686 [id number] [facility] 2025-04-14 08:10:00 2025-04-14 11:33:00 Emergency X HERMILO RICKS PHILLIP [facility] ERT [id number] [facility] 2025-03-08 21:35:00 2025-03-09 02:46:00 Emergency X DONI MARIE DONNELL [facility] ERT [id number] [facility] 2025-02-04 14:30:00 2025-02-04 16:26:04 Office Visit Pgy4 [facility] Pgy4 [facility] 1.840.114 350.1.13.10 4.2.7.2.686 [id number] [facility] 2025-01-27 12:28:00 2025-01-27 13:54:00 Emergency X PATRICE HOLLAND [facility] ERT [id number] [facility] 2025-01-27 12:28:00 2025-01-27 13:54:00 Emergency Patrice Holland [facility] 1.840.114 350.1.13.10 4.2.7.2.686 [id number] [facility] 2025-01-19 00:00:00 2025-01-21 08:15:33 Telephone Pgy4 Pgy4 [facility] 1.2840.114 350.1.13.10 4.2.7.2.686 [id number] [facility] 2025-01-17 02:31:00 2025-01-17 04:24:00 Emergency X SELENE PARRA WAKILI [facility] ERT [id number] [facility] 2025-01-17 02:31:00 2025-01-17 04:24:00 Emergency Selene Parra [facility] AT [facility] 1.2.840.114 350.1.13.10 4.2.7.2.686 [id number] [facility] 2025-01-13 00:00:00 2025-01-16 10:06:01 Telephone Pgy4 Pgy4 [facility] ([facility]) 1.2.840.114 350.1.13.10 4.2.7.2.686 [id number] [facility] 2025-01-05 05:08:00 2025-01-05 09:45:00 Emergency X DONI MARIE DONNELL [facility] ERT [id number] [facility] 2025-01-05 05:08:00 2025-01-05 09:45:00 Emergency Hermilo Ricks Donnell [facility] 1.2.840.114 350.1.13.10 4.2.7.2.686 [id number] [facility] 2024-12-19 08:24:26 2024-12-19 08:24:26 Outpatient SFA [facility] [id number] Darryl Tyron Edilson 2024-12-18 15:04:52 2024-12-18 15:04:52 Outpatient SFA [facility] [id number] Darryl Tyron [place] 2024-12-17 23:56:00 2024-12-18 01:23:00 Emergency X GABY TERRY [facility] ERT [id number] [facility] 2024-12-17 23:56:00 2024-12-18 01:23:00 Emergency AdeGaby gray [facility] 1.2.840.114 350.1.13.10 4.2.7.2.686 [id number] [facility] 2024-12-18 00:00:00 2024-12-18 00:00:00 Outpatient Visit SFA [id number] Darryl Ackerman [place] 2024-12-12 11:22:49 2024-12-12 11:22:49 Outpatient SFA [facility] [id number] Darryl Ackerman [place] 2024-11-28 09:13:53 2024-11-28 09:13:53 Outpatient SFA [facility] [id number] Darryl Ackerman [place] 2024-11-28 00:00:00 2024-11-28 00:00:00 Outpatient Visit SFA [id number] Darryl Ackerman [place] 2024-11-27 09:21:53 2024-11-27 09:21:53 Outpatient SFA [facility] [id number] Darryl Ackerman [place] 2024-11-27 00:00:00 2024-11-27 00:00:00 Outpatient Visit SFA [id number] Darryl Ackerman [place] 2024-11-18 21:05:00 2024-11-18 22:48:00 Emergency X SELENE PARRA WAKILI [facility] ERT [id number] [facility] 2024-11-18 21:05:00 2024-11-18 22:48:00 Emergency Selene Parra [facility] 1.2.840.114 350.1.13.10 4.2.7.2.686 [id number] [facility] 2024-11-08 22:41:00 2024-11-09 00:01:00 Emergency X CHRISTY RG PAMALA [facility] ERT [id number] [facility] 2024-11-08 22:41:00 2024-11-09 00:01:00 Emergency Christy Rg [facility] 1.2.840.114 350.1.13.10 4.2.7.2.686 [id number] [facility] 2024-10-22 09:57:20 2024-10-22 09:57:20 Outpatient SFA [facility] [id number] Darryl Ackerman [place] 2024-10-22 00:00:00 2024-10-22 00:00:00 Outpatient Visit [facility] [id number] Darryl Ackerman [place] 2024-08-25 14:31:29 2024-08-25 14:31:29 Outpatient SFA [facility] [id number] Darryl Ackerman [place] 2024-08-25 00:00:00 2024-08-25 00:00:00 Outpatient Visit [facility] [id number] Darryl Ackerman [place] 2024-07-25 07:55:00 2024-07-25 10:46:00 Emergency X DONI MARIE DONNELL [facility] ERT [id number] [facility] 2024-07-25 07:55:00 2024-07-25 10:46:00 Emergency Doni Marie [facility] 1.2.840.114 350.1.13.10 4.2.7.2.686 [id number] [facility] 2024-07-09 15:24:23 2024-07-09 15:24:23 Outpatient SFA [facility] [id number] Darryl Ackerman [place] 2024-07-09 00:00:00 2024-07-09 00:00:00 Outpatient Visit [facility] [id number] Darryl Ackerman [place] 2024-07-04 02:23:00 2024-07-04 06:07:00 Emergency X SELENE PARRA WAKILI [facility] ERT [id number] [facility] 2024-07-04 02:23:00 2024-07-04 06:07:00 Emergency Selene Parra NMREGGIE AT [facility] 1.2.840.114 350.1.13.10 4.2.7.2.686 [id number] [facility] 2024-03-18 13:39:14 2024-03-18 13:39:14 Outpatient SFA [facility] [id number] Darryl Waggoner 2024-03-18 00:00:00 2024-03-18 00:00:00 Outpatient Visit [facility] [id number] Darryl Waggoner 2024-03-12 02:06:00 2024-03-12 06:07:00 Emergency X SELENE PARRA [facility] ERT [id number] [facility] 2024-03-12 02:06:00 2024-03-12 06:07:00 Emergency Selene Parra [facility] 1.2.840.114 350.1.13.10 4.2.7.2.686 [id number] [facility] 2024-03-06 11:34:36 2024-03-06 11:34:36 Outpatient SFA [facility] [id number] Darryl Waggoner 2024-03-06 00:00:00 2024-03-06 00:00:00 Outpatient Visit [facility] [id number] Darryl Waggoner 2024-02-03 03:57:00 2024-02-03 07:11:00 Emergency Selene Parra [facility] 1.2.840.114 350.1.13.10 4.2.7.2.686 [id number] [facility] 2024-01-01 22:28:00 2024-01-02 00:44:00 Emergency X DONI MARIE DONNELL [facility] ERT [id number] [facility] 2024-01-01 22:28:00 2024-01-02 00:44:00 Emergency Doni Marie [facility] 1.2.840.114 350.1.13.10 4.2.7.2.686 [id number] [facility] 2023-12-31 15:24:49 2023-12-31 15:24:49 Outpatient SFA [facility] [id number] Darryl Waggoner 2023-12-26 03:53:00 2023-12-26 05:24:00 Emergency X ANTONIETTABIJANDUSTY JAMESJOSE A [facility] ERT [id number] [facility] 2023-12-26 03:53:00 2023-12-26 05:24:00 Emergency Krysten Parraenrique Mcrae [facility] 1.2.840.114 350.1.13.10 4.2.7.2.686 [id number] [facility] 2023-12-17 08:09:17 2023-12-17 08:09:17 Outpatient SFA [facility] [id number] Darryl Waggoner 2023-11-20 06:45:00 2023-11-20 10:52:00 Emergency X DONI MARIE [facility] ERT [id number] [facility] 2023-11-20 06:45:00 2023-11-20 10:52:00 Emergency Doni Marie [facility] 1.2.840.114 350.1.13.10 4.2.7.2.686 [id number] [facility] 2023-11-14 13:08:33 2023-11-14 13:08:33 Outpatient SFA [facility] [id number] Darryl Waggoner 2023-11-12 00:13:00 2023-11-12 01:10:00 Emergency X CHAYO SRIVASTAVA [facility] ERT [id number] [facility] 2023-11-12 00:13:00 2023-11-12 01:10:00 Emergency Atif Chayo Perez [facility] 1.2.840.114 350.1.13.10 4.2.7.2.686 [id number] [facility] 2023-10-27 20:33:00 2023-10-27 20:58:00 Emergency X RUSTY Kavita [facility] ERT [id number] [facility] 2023-10-27 20:33:00 2023-10-27 20:58:00 Emergency RustyKavita Soledad [facility] 1.2.840.114 350.1.13.10 4.2.7.2.686 [id number] [facility] 2023-09-17 09:14:32 2023-09-17 09:14:32 Outpatient [facility] [id number] Darryl Waggoner 2023-09-08 18:32:00 2023-09-08 21:46:00 Emergency X CHRISTY RG [facility] ERT [id number] [facility] 2023-09-08 18:32:00 2023-09-08 21:46:00 Emergency Danie Ontiveros Pamala G [facility] 1.2.840.114 350.1.13.10 4.2.7.2.686 [id number] [facility] 2023-09-07 06:47:00 2023-09-07 08:22:00 Emergency X ATIFJULIRA [facility] ERT [id number] [facility] 2023-09-07 06:47:00 2023-09-07 08:22:00 Emergency Juli Srivastavara Perez [facility] 1.2.840.114 350.1.13.10 4.2.7.2.686 [id number] [facility] 2023-09-03 18:57:00 2023-09-03 22:03:00 Emergency X SELENE PARRA [facility] ERT [id number] [facility] 2023-09-03 18:57:00 2023-09-03 22:03:00 Emergency Selene Parra [facility] 1.2.840.114 350.1.13.10 4.2.7.2.686 [id number] [facility] 2023-08-28 16:44:07 2023-08-28 16:44:07 Outpatient [facility] [id number] Darryl Waggoner 2023-08-03 23:07:00 2023-08-04 01:08:00 Emergency X Kavita OJEDA [facility] ERT [id number] [facility] 2023-08-03 23:07:00 2023-08-04 01:08:00 Emergency Kavita Ojeda Soledad [facility] 1.2.840.114 350.1.13.10 4.2.7.2.686 [id number] [facility] 2023-07-26 02:41:00 2023-07-26 04:25:00 Emergency X MEMO RESENDIZ [facility] ERT [id number] [facility] 2023-07-26 02:41:00 2023-07-26 04:25:00 Emergency Memo Resendiz [facility] 1.2.840.114 350.1.13.10 4.2.7.2.686 [id number] [facility] 2023-07-25 07:36:00 2023-07-25 10:13:00 Emergency X DANII ARRIAGA [facility] ERT [id number] [facility] 2023-07-25 07:36:00 2023-07-25 10:13:00 Emergency Schoenstein Rose Roxanne [facility] 1.2.840.114 350.1.13.10 4.2.7.2.686 [id number] [facility] 2023-07-24 08:14:55 2023-07-24 08:14:55 Outpatient [facility] [id number] Darryl Waggoner 2023-07-12 07:35:00 2023-07-12 09:00:00 Emergency X DONI MARIE [facility] ERT [id number] [facility] 2023-07-12 07:35:00 2023-07-12 09:00:00 Emergency Doni Marie [facility] 1.2.840.114 350.1.13.10 4.2.7.2.686 [id number] [facility] 2023-07-02 13:54:28 2023-07-02 13:54:28 Outpatient [facility] 18 Darryl Waggoner 2023-06-26 13:20:40 2023-06-26 13:20:40 Outpatient [facility] [id number] Darryl Waggoner 2023-06-24 05:33:00 2023-06-24 06:50:00 Emergency X SELENE PARRA [facility] ERT [id number] [facility] 2023-06-24 05:33:00 2023-06-24 06:50:00 Emergency Selene Parra [facility] 1.2.840.114 350.1.13.10 4.2.7.2.686 [id number] [facility] 2023-06-20 16:08:31 2023-06-20 16:08:31 Outpatient [facility] [id number] Darryl Waggoner 2023-06-17 23:54:00 2023-06-18 01:35:00 Emergency X MICHELLE TERRY [facility] ERT [id number] [facility] 2023-06-17 23:54:00 2023-06-18 01:35:00 Emergency Michelle Terry [facility] 1.2.840.114 350.1.13.10 4.2.7.2.686 [id number] [facility] 2023-06-16 10:56:55 2023-06-16 10:56:55 Outpatient [facility] [id number] Darryl Waggoner 2023-06-14 13:35:05 2023-06-14 13:35:05 Outpatient [facility] 31 Darryl Waggoner 2023-06-12 11:11:07 2023-06-12 11:11:07 Outpatient [facility] [id number] Darryl Waggoner 2023-06-11 23:25:00 2023-06-12 04:49:00 Emergency X LIEBERMAN RAVEN [facility] ERT [id number] [facility] 2023-06-11 23:25:00 2023-06-12 04:49:00 Emergency Luisana Raven [facility] 1.2.840.114 350.1.13.10 4.2.7.2.686 [id number] [facility] 2023-06-05 11:34:51 2023-06-05 11:34:51 Outpatient [facility] [id number] Darryl Waggoner 2023-05-28 08:05:43 2023-05-28 08:05:43 Outpatient [facility] 14 Darryl Ackerman [place] 2023-05-28 00:40:00 2023-05-28 04:06:00 Emergency X RAVEN LIEBERMAN [facility] ERT [id number] [facility] 2023-05-28 00:40:00 2023-05-28 04:06:00 Emergency Raven Lieberman [facility] 1.2.840.114 350.1.13.10 4.2.7.2.686 [id number] [facility] 2023-05-28 00:00:00 2023-05-28 00:00:00 Orders Only Doctor Unassigned, [address] [facility] 1.2.840.114 350.1.13.10 4.2.7.2.686 [id number] [facility] 2023-04-30 13:49:49 2023-04-30 13:49:49 Outpatient [facility] [id number] Darryl Ackerman [place] 2023-04-23 08:52:34 2023-04-23 08:52:34 Outpatient [facility] [id number] Darryl Ackerman [place] 2023-03-06 22:52:00 2023-03-07 00:12:00 Emergency X HERMILO RICKS [facility] ERT [id number] [facility] 2023-03-06 22:52:00 2023-03-07 00:12:00 Emergency Hermilo [facility] 1.2.840.114 350.1.13.10 4.2.7.2.686 [id number] [facility] 2023-02-02 01:06:00 2023-02-02 02:49:00 Emergency X SELENE PARRA [facility] ERT [id number] [facility] 2023-02-02 01:06:00 2023-02-02 02:49:00 Emergency Selene Parra [facility] 1.2.840.114 350.1.13.10 4.2.7.2.686 [id number] [facility] 2023-02-02 00:00:00 2023-02-02 00:00:00 Orders Only Doctor Unassigned, [address] [facility] 1.2.840.114 350.1.13.10 4.2.7.2.686 [id number] [facility] 2022-10-24 12:04:00 2022-10-24 15:45:00 Emergency X SURAJ SCOTT [facility] ERT [id number] [facility] 2022-10-24 12:04:00 2022-10-24 15:45:00 Emergency Suraj Scott [facility] 1.2.840.114 350.1.13.10 4.2.7.2.686 [id number] [facility] 2022-09-25 10:04:19 2022-09-25 10:04:19 Outpatient SFA [facility] [id number] Darryl Waggoner 2022-09-25 00:00:00 2022-09-25 00:00:00 Outpatient Visit [id number] 2022-07-21 07:49:00 2022-07-21 08:56:00 Emergency HERMILO OLSEN [facility] ERT [id number] [facility] 2022-07-21 07:49:00 2022-07-21 08:56:00 Emergency Hermilo Ricks [facility] 1.2.840.114 350.1.13.10 4.2.7.2.686 [id number] [facility] 2022-05-19 15:38:00 2022-05-19 17:24:00 Emergency CAT SCOTT [facility] ERT [id number] [facility] 2022-05-19 15:38:00 2022-05-19 17:24:00 Emergency Cat Rutledge [facility] 1.2.840.114 350.1.13.10 4.2.7.2.686 [id number] [facility] 2022-05-19 00:00:00 2022-05-19 00:00:00 Outpatient Visit [id number] 2022-05-13 02:08:00 2022-05-13 04:24:00 Emergency Selene Parra [facility] 1.2.840.114 350.1.13.10 4.2.7.2.686 [id number] [facility] 2022-05-13 02:08:00 2022-05-13 04:24:00 Emergency X SELENE PARRA [facility] ERT [id number] [facility] 2022-04-01 16:48:00 2022-04-01 18:39:00 Emergency X CHRISTY RG [facility] ERT [id number] [facility] 2022-04-01 16:48:00 2022-04-01 18:39:00 Emergency Christy Rg [facility] 1.2.840.114 350.1.13.10 4.2.7.2.686 [id number] [facility] 2022-04-01 00:00:00 2022-04-01 00:00:00 Orders Only Doctor Unassigned, [address] [facility] 1.2.840.114 350.1.13.10 4.2.7.2.686 [id number] [facility] 2021-10-25 13:44:00 2021-10-25 15:25:00 Emergency X CRISTIAN TRANN [facility] ERT [id number] [facility] 2021-10-25 13:44:00 2021-10-25 15:25:00 Emergency Cristian Trann R [facility] [id number] 350.1.13.10 4.2.7.2.686 [id number] [facility] 2021-10-25 00:00:00 2021-10-25 00:00:00 Orders Only Doctor Unassigned, [address] [facility] 1.2.840.114 350.1.13.10 4.2.7.2.686 [id number] [facility] 2021-05-03 17:49:00 2021-05-04 02:46:00 Emergency [facility] MED [id number] [facility] 2021-04-16 21:16:42 2021-04-22 13:04:00 Inpatient CL [facility] [id number] [facility] 2021-04-08 17:04:00 2021-04-08 17:04:00 Emergency X ROCHELLE GOLD [facility] ERT [id number] [facility] 2021-04-08 02:42:00 2021-04-08 02:42:00 Emergency X LISA TRNA [facility] ERT [id number] [facility] 2021-03-24 18:36:00 2021-03-24 18:36:00 Emergency X [facility] ERT [id number] [facility] Results Test Description Test Time Test [...] suspicious sclerotic or lytic osseous lesions.No fractures. [facility] 14:15:00* Test Item Value Reference Range Interpretation Comme nts LIPASE (test code = 7863911277) 62 U/L 0-220 Lab Interpretation (test cod e = 49503-4) Normal [facility] with [id number] 14:01:56* Test Item Value Reference Range Interpretation [...] g/dL 31.6-35.1 L RDW-SD (test code = 27677-7) 44.9 fL 39.0-49.9 RDW-CV (test code = 788-0) 16.6 % 12.0-15.5 H PLT (test code = 777-3) 327 166-358 MPV (test code = 17496-2) 9.7 fL 9.5-12.9 NRBC/100 WBC (test code = 9832930455) 0 0.0-10.0 NRBC x10^3 (test code = 4194430677) See_Comment [Automated messa ge] The system which generated this result transmitted reference range: 10*3/?L. The reference range was not used to interpret this result as normal/abnormal. GRAN MAT (NEUT) % (test code = 770-8) 56.4 % IMM GRAN % (test code = 5178903268) 0.2 % LYMPH % (test code = 736-9) 28.9 % MONO % (test code = 5905-5) 7.8 % EOS % (test code = 713-8) 6.2 % BASO % (test code = 706-2) 0.5 % GRAN MAT x10^3(ANC) (test code = 3259958220) 3.16 10*3/uL 1.88-7.09 IMM GRAN x10^3 (test code = 2094104624) 0.00-0.06 LYMPH x10^3 (test code = 731-0) 1.62 10*3/uL 1.32-3.29 MONO x10^3 (test code = 742-7) 0.44 10*3/uL 0.33-0.92 EOS x10^3 (test code = 711-2) 0.35 10*3/uL 0.03-0.39 BASO x10^3 (test code = 704-7) 0.03 10*3/uL 0.01-0.07 Lab Interpretation (test code = 31734-2) Abnormal [facility] utccyjd7837-86-16 05:13:32EXAM: US OVARY TORSION ORDERING PROVIDER: DONI MARIE HISTORY: 34 years-old Female; Provided indication: r/o ovarian torsion . LMP = 02/22/2025Pregnancy test = Negative. TECHNIQUE: Transabdominal and transvaginal ultrasound imaging and colorDoppler evaluation of the pelvis was performed. SpectralDoppler evaluationof the ovaries was performed. Senior Benefits Manager images were obtained for therecord. COMPARISON: Pelvic [...] A small volume of free fluid is present.[facility] [id number] 03:06:00* Test Item Value Reference Range Interpretation Comme nts POCT PREG (test code = 1605) Negative On board controls acceptable with C Line (test code = 3574) Yes POCT PREG LOT # (test code = 3575) [id number] POCT PREG TEST DATE ( test code = 3576) 2026-07-22 Lab Interpretation (test cod e = 41345-3) Normal [facility] Rias1325-59-95 19:16:00* Test Item Value Reference Range Interpretation Comme nts POCT PREG (test code = 1605) Negative On board controls acceptable with C Line (test code = 3574) Yes POCT PREG LOT # (test code = 3575) POCT PREG TEST DATE ( test code = 3576) Lab Interpretation (test cod e = 50599-6) Normal [facility] Glucose(Age >30days)2025-01-27 18:50:00* Test Item Value Reference Range Interpretation Comme nts POCT Glu (age>30days) (test code = 3342) 81 mg/dL 70-110 Lab Interpretation (test cod e = 67647-9) Normal [facility] GLUCOSE (AUTOMATED)2025-01-27 18:48:29* Test Item Value Reference Range Interpretation Comme nts POCT GLU (test code = 7324255492) 81 mg/dL 70-110 Lab Interpretation (test cod e = 35931-0) Normal [facility] Abdomen pelvis w bxbrvfam8049-38-11 08:59:03Examination: Computed tomography of the abdomen and [...] no suspicious lytic or blastic bony lesion. [facility] Metabolic Fyjhj9111-53-51 07:59:26* Test Item Value Reference Range Interpretation Comme nts NA (test code = 4196736247) 136 mmol/L 135-145 K (test code = 5051664768) 3.7 mmol/L 3.5-5.0 CL (test code = 0580996843) 108 mmol/L 98-108 CO2 TOTAL (test code = 9323171571) 18 mmol/L 23-31 L AGAP (test code = 9576024338) 10 2-16 BUN (test code = 7487568130) 6 mg/dL 7-23 L GLUCOSE (test code = 3566733287) 100 mg/dL 70-110 CREATININE (test code = 2160-0) 0.76 mg/dL 0.50-1.04 TOTAL BILI (test code = 5358029072) 0.3 mg/dL 0.1-1.1 CALCIUM (test code = 9817357152) 9.2 mg/dL 8.6-10.6 T PROTEIN (test code = 5286755242) 8.0 g/dL 6.3-8.2 ALBUMIN (test code = 8540070441) 4.7 g/dL 3.5-5.0 ALK PHOS (test code = 1504747574) 88 U/L 34-122 ALTv (test code = 1742-6) 15 U/L 5-35 AST(SGOT) (test code = 8525626116) 19 U/L 13-40 eGFR (test code = 40241-8) 106.3 mL/min/1.73m2 CKD-EPI eGFR (2020). Assuming creatinine has been stable day-to-day for at least three months, the eGFR indicates Category G1 (>= 90 mL/min/1.73 m2) Lab Interpretation (test code = 72627-2) Abnormal [facility], Lljsl0503-32-21 07:59:26* Test Item Value Reference Range Interpretation Comme nts LIPASE (test code = 9962149144) 206 U/L 0-220 Lab Interpretation (test cod e = 26798-1) Normal [facility]ville[facility] with Qocgrubrdfuf0892-28-39 07:47:02* Test Item Value Reference Range Interpretation [...] g/dL 31.6-35.1 L RDW-SD (test code = 72568-1) 41.8 fL 39.0-49.9 RDW-CV (test code = 788-0) 15.8 % 12.0-15.5 H PLT (test code = 777-3) 391 166-358 H MPV (test code = 48614-2) 10.1 fL 9.5-12.9 NRBC/100 WBC (test code = 4307231534) 0.0 0.0-10.0 NRBC x10^3 (test code = 6619956431) See_Comment [Automated messa ge] The system which generated this result transmitted reference range: 10*3/?L. The reference range was not used to interpret this result as normal/abnormal. GRAN MAT (NEUT) % (test code = 770-8) 43.1 % IMM GRAN % (test code = 6095293568) 0.10 % LYMPH % (test code = 736-9) 43.8 % MONO % (test code = 5905-5) 9.1 % EOS % (test code = 713-8) 3.3 % BASO % (test code = 706-2) 0.6 % GRAN MAT x10^3(ANC) (test code = 6537618610) 3.34 10*3/uL 1.88-7.09 IMM GRAN x10^3 (test code = 7907575821) 0.00-0.06 LYMPH x10^3 (test code = 731-0) 3.40 10*3/uL 1.32-3.29 H MONO x10^3 (test code = 742-7) 0.71 10*3/uL 0.33-0.92 EOS x10^3 (test code = 711-2) 0.26 10*3/uL 0.03-0.39 BASO x10^3 (test code = 704-7) 0.05 10*3/uL 0.01-0.07 Lab Interpretation (test code = 55135-0) Abnormal [facility] Qhlr2041-98-46 07:32:00* Test Item Value Reference Range Interpretation Comme nts POCT PREG (test code = 1605) Negative On board controls acceptable with C Line (test code = 3574) Yes POCT PREG LOT # (test code = 3575) [id number] POCT PREG TEST DATE ( test code = 3576) Lab Interpretation (test cod e = 28292-3) Normal [facility] Abdomen pelvis w [id number] 13:55:36EXAM: CT ABDOMEN PELVIS W CONTRAST 01/05/2025 [...] BONES AND SOFT TISSUES: No aggressive bone lesions.[facility] POCT HAES7890-13-15 11:58:00* Test Item Value Reference Range Interpretation Comme nts POCT PREG (test code = 1605) Negative On board controls acceptable with C Line (test code = 3574) Yes POCT PREG LOT # (test code = 3575) 379458 POCT PREG TEST DATE ( test code = 3576) 7171396 Lab Interpretation (test cod e = 77682-8) Normal [facility]ville[facility]. Metabolic Panel (61451)2025-01-05 10:57:03* Test Item Value Reference Range Interpretation Comme nts NA (test code = 8965811615) 137 mmol/L 135-145 K (test code = 4330495783) 3.7 mmol/L 3.5-5.0 CL (test code = 9442103379) 107 mmol/L 98-108 CO2 TOTAL (test code = 2007769089) 19 mmol/L 23-31 L AGAP (test code = 6601322382) 11 2-16 BUN (test code = 7588903896) 2 mg/dL 7-23 L GLUCOSE (test code = 2129911200) 114 mg/dL 70-110 H CREATININE (test code = 2160-0) 0.89 mg/dL 0.50-1.04 TOTAL BILI (test code = 1205081926) 0.3 mg/dL 0.1-1.1 CALCIUM (test code = 0236032004) 9.4 mg/dL 8.6-10.6 T PROTEIN (test code = 4233307367) 7.5 g/dL 6.3-8.2 ALBUMIN (test code = 9270588818) 4.3 g/dL 3.5-5.0 ALK PHOS (test code = 2621907373) 88 U/L 34-122 ALTv (test code = 1742-6) 21 U/L 5-35 AST(SGOT) (test code = 8604345063) 27 U/L 13-40 eGFR (test code = 84445-4) 87.9 mL/min/1.73m2 CKD-EPI eGFR (2020). Assuming creatinine has been stable day-to-day for at least three months, the eGFR indicates Category G2 (60 - 89 mL/min/1.73 m2) Lab Interpretation (test code = 25975-9) Abnormal [facility]ville[facility] Chest 1 ob5669-74-26 10:54:58Study: Single view chest. Ordering Physician: RAFAEL RICKS Date: 01/05/2025 5:15 AM History:Shortness of breath, chest pain, tachycardia COMPARISON: None. Findings: Single frontal view chest demonstrates a normal heart size. Thelungs are clear without infiltrate, pleural effusion or pneumothorax.Noacute osseous abnormality is identified.[facility] BrownsvilleCb with Lyot0471-99-84 10:39:44 * Test Item Value Reference Range [...] g/dL 31.6-35.1 L RDW-SD (test code = 27922-3) 44.0 fL 39.0-49.9 RDW-CV (test code = 788-0) 16.2 % 12.0-15.5 H PLT (test code = 777-3) 400 166-358 H MPV (test code = 65422-0) 9.7 fL 9.5-12.9 NRBC/100 WBC (test code = 9599839332) 0.0 0.0-10.0 NRBC x10^3 (test code = 0880112340) See_Comment [Automated messa ge] The system which generated this result transmitted reference range: 10*3/?L. The reference range was not used to interpret this result as normal/abnormal. GRAN MAT (NEUT) % (test code = 770-8) 70.3 % IMM GRAN % (test code = 4936270971) 0.20 % LYMPH % (test code = 736-9) 16.6 % MONO % (test code = 5905-5) 8.0 % EOS % (test code = 713-8) 4.5 % BASO % (test code = 706-2) 0.4 % GRAN MAT x10^3(ANC) (test code = 8954773038) 5.79 10*3/uL 1.88-7.09 IMM GRAN x10^3 (test code = 1979073813) 0.00-0.06 LYMPH x10^3 (test code = 731-0) 1.37 10*3/uL 1.32-3.29 MONO x10^3 (test code = 742-7) 0.66 10*3/uL 0.33-0.92 EOS x10^3 (test code = 711-2) 0.37 10*3/uL 0.03-0.39 BASO x10^3 (test code = 704-7) 0.03 10*3/uL 0.01-0.07 Lab Interpretation (test code = 54668-8) [facility]normal [facility] [id number] 06:15:00* Test Item Value Reference Range Interpretation Comme nts POCT PREG (test code = 1605) Negative On board controls acceptable with C Line (test code = 3574) Yes POCT PREG LOT # (test code = 3575) 258899 POCT PREG TEST DATE ( test code = 3576) 03/09/26 Lab Interpretation (test cod e = 67781-8) Normal [facility]villePAP TEST, THINPREP, IMAGED AND HPV HIGH RISK WITH OYLOHOEK7849-84-52 00:00:00* Test Item Value Reference Range Interpretation Comme nts SOURCE: (test code = 8001) Unspecified SLIDES: (test code = 8011) 1 LMP: (test code = 8021) NOT GIVEN SPECIMEN ADEQUACY: (test code = 46026) (NOTE) INTERPRETATION: (test code = 50559) NILM/NO EPITH. ABNORMALITY;SEE BELOW FIELD CROPS HARVEST MACHINE OPERATOR: (test code = 8101) SE LOYOLA,CT(ASCP)IAC QC TECHNOLOGIST: (test code = 8111) Samy MedranoCT(ASCP) LOCATION: (test code = 84019) (NOTE) CPT: (test code = 8140) 05588 HPV HIGH RISK INTERP (test code = 86175) POSITIVE HPV 16 (test code = 62268) NEGATIVE HPV 18 (test code = 49369) NEGATIVE HPV, HR, OTHER GENOTYPES (test code = 00654) POSITIVE PDFE (test code = PDFReport) PDF Darryl F AustinXR ABDOMEN ACUTE [id number] 14:50:35EXAM: XR ABDOMEN ACUTE SERIES COMPARISON: Abdominal [...] stones identified. No acute bony abnormality is present.[facility] TEST 2024-07-25 13:23:00* Test Item Value Reference Range Interpretation Comme nts POCT PREG (test code = 1605) Negative On board controls acceptable with C Line (test code = 3574) Yes POCT PREG LOT # (test code = 3575) 760169 POCT PREG TEST DATE ( test code = 3576) 10/20/2025 Lab Interpretation (test cod e = 71655-9) Normal [facility] ABDOMEN PELVIS W [id number] 09:44:53Examination: Computed tomography of the abdomen and [...] show no suspicious lytic or blastic bony lesion.[facility]villePOCT Rudt2185-31-50 07:36:00 * Test Item Value Reference Range Interpretation Comme [facility] POCT PREG (test code = 1605) Negative On board controls acceptable with C Line (test code = 3574) Yes POCT PREG LOT # (test code = 3575) 073645 POCT PREG TEST DATE ( test code = 3576) 07/24/2025 Lab Interpretation (test cod e = 37888-6) Normal [facility] ABDOMEN PELVIS W [id number] 10:12:02Examination: Computed tomography of the abdomen and [...] show no suspicious lytic or blastic bony lesion.[facility]. Metabolic Panel (09480)2024-03-12 09:27:38* Test Item Value Reference Range Interpretation Comme nts NA (test code = 4594576722) 137 mmol/L 135-145 K (test code = 0803028903) 3.8 mmol/L 3.5-5.0 CL (test code = 8271881701) 107 mmol/L 98-108 CO2 TOTAL (test code = 6182915878) 20 mmol/L 23-31 L AGAP (test code = 6132372741) 10 2-16 BUN (test code = 0501351877) 6 mg/dL 7-23 L GLUCOSE (test code = 3978855396) 94 mg/dL 70-110 CREATININE (test code = 2160-0) 0.83 mg/dL 0.50-1.04 TOTAL BILI (test code = 9229887787) 0.4 mg/dL 0.1-1.1 CALCIUM (test code = 6782432899) 9.2 mg/dL 8.6-10.6 T PROTEIN (test code = 1926106051) 7.6 g/dL 6.3-8.2 ALBUMIN (test code = 5154001203) 4.2 g/dL 3.5-5.0 ALK PHOS (test code = 6980447380) 73 U/L 34-122 ALTv (test code = 1742-6) 18 U/L 5-35 AST(SGOT) (test code = 9822630875) 24 U/L 13-40 eGFR (test code = 90006-1) 96.2 mL/min/1.73m2 CKD-EPI eGFR (2020). Assuming creatinine has been stable day-to-day for at least three months, the eGFR indicates Category G1 (>= 90 mL/min/1.73 m2) Lab Interpretation (test code = 20298-5) Abnormal [facility]villeLipase2024-05-29 09:26:57* Test Item Value Reference Range Interpretation Comme nts LIPASE (test code = 6140283949) 108 U/L 0-220 Lab Interpretation (test cod e = 01066-8) Normal [facility] with Ibfg3385-68-47 09:13:56* Test Item Value Reference Range Interpretation [...] g/dL 31.6-35.1 L RDW-SD (test code = 10531-7) 42.4 fL 39.0-49.9 RDW-CV (test code = 788-0) 15.7 % 12.0-15.5 H PLT (test code = 777-3) 346 166-358 MPV (test code = 67369-9) 9.8 fL 9.5-12.9 NRBC/100 WBC (test code = 8277869332) 0.0 0.0-10.0 NRBC x10^3 (test code = 9987540018) See_Comment [Automated [place] [employer]a ge] The system which generated this result transmitted reference range: 10*3/?L. The reference range was not used to interpret this result as normal/abnormal. GRAN MAT (NEUT) % (test code = 770-8) 43.3 % IMM GRAN % (test code = 3292726191) 0.30 % LYMPH % (test code = 736-9) 42.6 % MONO % (test code = 5905-5) 7.5 % EOS % (test code = 713-8) 5.5 % BASO % (test code = 706-2) 0.8 % GRAN MAT x10^3(ANC) (test code = 5684220099) 3.21 10*3/uL 1.88-7.09 IMM GRAN x10^3 (test code = 3809361624) 0.00-0.06 LYMPH x10^3 (test code = 731-0) 3.16 10*3/uL 1.32-3.29 MONO x10^3 (test code = 742-7) 0.56 10*3/uL 0.33-0.92 EOS x10^3 (test code = 711-2) 0.41 10*3/uL 0.03-0.39 H BASO x10^3 (test code = 704-7) 0.06 10*3/uL 0.01-0.07 Lab Interpretation (test code = 31646-1) Abnormal [facility]villeEBV-Mononucleosis Fbujbe6904-20-32 11:45:15* Test Item Value Reference Range Interpretation Comme nts EBV Mononucleosis Screen (te st code = 9309498013) Negative Negative Lab Interpretation (test cod e = 18970-4) Normal [facility]villeCT ABDOMEN PELVIS W [id number] 10:26:21ORDERING PHYSICIAN: SELENE PARRA CLINICAL HISTORY: Abdominal [...] the pelvis. Appendixis normal. The bones are unremarkable.[facility] BrownsvillePOMA Lcii2693-42-95 09:09:00* Test Item Value Reference Range Interpretation Comme [facility] POCT PREG (test code = 1605) Negative On board controls acceptable with C Line (test code = 3574) Yes POCT PREG LOT # (test code = 3575) 351163 POCT PREG TEST DATE ( test code = 3576) 11/21/2024 Lab Interpretation (test cod e = 84050-4) Normal [facility]villeSURGICAL PATHOLOGY [id number] 09:50:51* Test Item Value Reference Range Interpretation Comme [facility] DIAGNOSIS: (test code = 8200) (NOTE) A) Conization (L EEP) - EctocervixHigh grade squamous intraepithelial lesion (CIN2), extendingfocally to endocervical and ectocervical/stromal margins. B) Conization (LEEP) - EndocervixFocal high grade squamous intraepithelial lesion (CIN2).Surgical margins negative for dysplasia. COMMENTS: (test code = 8205) (NOTE) The previously r eported abnormal Pap (accession # [id number]) isreviewed. The biopsy material more clearly displays [...] TanNUMBER OF TISSUE PIECES: 2SUBMITTED IN CASSETTE(S): a2KMMDRZ: FormalinCOMMENTS:Consists of a 1.9x1.1x0.5 cm irregularly shaped [...] TanNUMBER OF TISSUE PIECES: 1SUBMITTED IN CASSETTE(S): f8WGZXDU: FormalinCOMMENTS:[place] shaped rubbery tissue fragment partially surfaced bytan-white ectocervix. Os is inked blue by clinician. Endocervicalmargin inked blue. All remaining margins inked orange. Radiallysectioned x 9 and entirely submitted. Specimen fell apart uponsectioning. PATHOLOGIST: (test code = 8250) (NOTE) Heide Shipley MD, Board-certified Anatomic and ClinicalPathology, Hematopathology Specimens processed and interpreted at [facility]Sus[facility]or[facility], [address] [place] [address], , CLIA: [id number] CPT: (test code = 8400) (NOTE) 03774p8 UNLESS O THERWISE INDICATED, ALL TESTING PERFORMED AT CLINICAL PATHOLOGY [employer] [address] [place] [address] ENVIRONMENTAL PROTECTION SPECIALIST: ANIBAL PAREDES M.D. CLIA NUMBER [id number] [facility]. [id number] SURGICAL PATHOLOGY [id number] 00:00:00* Test Item Value Reference Range Interpretation [...] = PDFReport) PDF Darryl Ackerman AustinSURGICAL PATHOLOGY [id number] 00:00:00* Test Item Value Reference Range Interpretation [...] = PDFReport) PDF Darryl Ackerman AustinSURGICAL PATHOLOGY [id number] 00:00:00* Test Item Value Reference Range Interpretation [...] = PDFReport) PDF Darryl Ackerman AustinSURGICAL PATHOLOGY [id number] 00:00:00* Test Item Value Reference Range Interpretation Comme nts DIAGNOSIS: (test code = 8200) (NOTE) COMMENTS: (test code = 8205) (NOTE) MICROSCOPIC DESCRIPTION: (te st code = 8210) (NOTE) CLINICAL DATA: (test code = 8401) (NOTE) GROSS DESCRIPTION: (test code = 8220) (NOTE) PATHOLOGIST: (test code = 8250) (NOTE) CPT: (test code = 8400) (NOTE) PDFE (test code = PDFReport) PDF Darryl Ackerman [place] PATH[facility] [id number] 00:00:00* Test Item Value Reference Range Interpretation Comme nts DIAGNOSIS: (test code = 8200) (NOTE) COMMENTS: (test code = 8205) (NOTE) MICROSCOPIC DESCRIPTION: (te st code = 8210) (NOTE) CLINICAL DATA: (test code = 8401) (NOTE) GROSS DESCRIPTION: (test code = 8220) (NOTE) PATHOLOGIST: (test code = 8250) (NOTE) CPT: (test code = 8400) (NOTE) PDFE (test code = PDFReport) PDF [facility]ckerman [facility] [id number] 00:00:00* Test Item Value Reference Range Interpretation Comme nts DIAGNOSIS: (test code = 8200) (NOTE) COMMENTS: (test code = 8205) (NOTE) MICROSCOPIC DESCRIPTION: (te st code = 8210) (NOTE) CLINICAL DATA: (test code = 8401) (NOTE) GROSS DESCRIPTION: (test code = 8220) (NOTE) PATHOLOGIST: (test code = 8250) (NOTE) CPT: (test code = 8400) (NOTE) PDFE (test code = PDFReport) PDF Darryl Ackerman [place]GICAL PATHOLOG[facility] [id number] 00:00:00* Test Item Value Reference Range Interpretation [...] = PDFReport) PDF Darryl Ackerman AustinSURGICAL PATHOLOGY [id number] 00:00:00* Test Item Value Reference Range Interpretation [...] code = PDFReport) PDF Darryl Chang OVARY [id number] 16:27:21EXAM: US OVARY TORSION HISTORY: 32 years [...] None [place]-sac: Trace volume free fluid is present.[facility]villeCT ABDOMEN PELVIS W [id number] 15:15:04EXAM: CT ABDOMEN PELVIS W CONTRAST HISTORY: [...] No suspicious lytic or sclerotic bony lesions arepresent.[facility]. METABOLIC PANEL (09584)2023-11-20 14:09:45* Test Item Value Reference Range Interpretation Comme nts NA (test code = 3888756921) 135 mmol/L 135-145 K (test code = 3248440410) 4.1 mmol/L 3.5-5.0 CL (test code = 6359141639) 112 mmol/L 98-108 H CO2 TOTAL (test code = 6929878830) 17 mmol/L 23-31 L AGAP (test code = 8514708287) 6 2-16 BUN (test code = 4228379152) 10 mg/dL 7-23 GLUCOSE (test code = 7370247728) 95 mg/dL 70-110 CREATININE (test code = 8305165562) 0.72 mg/dL 0.50-1.04 TOTAL BILI (test code = 5330242342) 0.2 mg/dL 0.1-1.1 CALCIUM (test code = 0955551074) 9.0 mg/dL 8.6-10.6 T PROTEIN (test code = 2256449571) 7.6 g/dL 6.3-8.2 ALBUMIN (test code = 4200114954) 4.3 g/dL 3.5-5.0 ALK PHOS (test code = 9108563800) 81 U/L 34-122 ALTv (test code = 1742-6) 23 U/L 5-35 AST(SGOT) (test code = 1123383869) 26 U/L 13-40 eGFR (test code = 19191-9) 114.8 mL/min/1.73m2 CKD-EPI eGFR (2020). Assuming creatinine has been stable day-to-day for at least three months, the eGFR indicates Category G1 (>= 90 mL/min/1.73 m2) Lab Interpretation (test code = 66702-1) Abnormal [facility] WITH [id number] 13:53:43* Test Item Value Reference Range Interpretation [...] g/dL 31.6-35.1 L RDW-SD (test code = 77111-5) 42.6 fL 39.0-49.9 RDW-CV (test code = 788-0) 15.5 % 12.0-15.5 PLT (test code = 777-3) 364 166-358 H MPV (test code = 92081-6) 10.0 fL 9.5-12.9 NRBC/100 WBC (test code = 9632278617) 0.0 0.0-10.0 NRBC x10^3 (test code = 2489980927) See_Comment [Automated messa ge] The system which generated this result transmitted reference range: 10*3/?L. The reference range was not used to interpret this result as normal/abnormal. GRAN MAT (NEUT) % (test code = 770-8) 59.8 % IMM GRAN % (test code = 4017984017) 0.30 % LYMPH % (test code = 736-9) 27.8 % MONO % (test code = 5905-5) 9.2 % EOS % (test code = 713-8) 2.1 % BASO % (test code = 706-2) 0.8 % GRAN MAT x10^3(ANC) (test code = 0299335847) 3.70 10*3/uL 1.88-7.09 IMM GRAN x10^3 (test code = [id number]) 0.00-0.06 LYMPH x10^3 (test code = 731-0) 1.72 10*3/uL 1.32-3.29 MONO x10^3 (test code = 742-7) 0.57 10*3/uL 0.33-0.92 EOS x10^3 (test code = 711-2) 0.13 10*3/uL 0.03-0.39 BASO x10^3 (test code = 704-7) 0.05 10*3/uL 0.01-0.07 Lab Interpretation (test code = 12875-3) Abnormal [facility] [id number] 13:26:00* Test Item Value Reference Range Interpretation Comme nts POCT PREG (test code = 1605) Negative On board controls acceptable with C Line (test code = 3574) Yes POCT PREG LOT # (test code = 3575) [id number] POCT PREG TEST DATE ( test code = 3576) 01/20/2025 Lab Interpretation (test cod e = 63484-4) Normal [facility] [id number] 13:28:00* Test Item Value Reference Range Interpretation Comme nts POCT PREG (test code = 1605) Negative On board controls acceptable with C Line (test code = 3574) Yes POCT PREG LOT # (test code = 3575) [id number] POCT PREG TEST DATE ( test code = 3576) 12/23/2024 Lab Interpretation (test cod e = 95474-2) [facility], [id number] 18:43:32* Test Item Value Reference Range Interpretation Comme nts CHLAMYDIA, NAAT, URINE (test code = 19194) NEGATIVE NEGATIVE Testing is perfo rmed with Lucie HARRY 6800/8800 systems usingreal-time polymerase chain reaction (PCR) method. A negative result does not exclude low level infection, specimensampling error, or collection error. GONORRHEA, NAAT, URINE (test code = 11640) NEGATIVE NEGATIVE Testing is perfo rmed with Lucie HARRY 6800/8800 systems usingreal-time polymerase chain reaction (PCR) method. A negative result does not exclude low level infection, specimensampling error, or collection error. UNLESS OTHERWISE INDICATED, ALL TESTING PERFORMED AT [facility]. [address] [place] [address] ENVIRONMENTAL PROTECTION SPECIALIST: ANIBAL PAREDES M.D. CLIA NUMBER [id number] [facility] [place]. [id number] TRICHOMONAS, NAAT, [id number] 16:46:16* Test Item Value Reference Range Interpretation Comme nts TRICHOMONAS, NAAT, URINE (test code = 24786) NEGATIVE NEGATIVE Testing is perfo rmed with Lucie HARRY 6800/8800 method usingreal-time polymerase chain reaction (PCR) method. A negative result does not exclude low level infection, specimensampling error, or collection error. TRICHOMONAS, URINE, [id number] 00:00:00* Test Item Value Reference Range Interpretation Comme nts TRICHOMONAS, NAAT, URINE (te st code = 13840) NEGATIVE Darryl F AustinCT/NG, TMA, [id number] 00:00:00* Test Item Value Reference Range Interpretation Comme nts CHLAMYDIA, NAAT, URINE (test code = 62683) NEGATIVE GONORRHEA, NAAT, URINE (test code = 23370) NEGATIVE Darryl F AustinTRICHOMONAS, URINE, [id number] 00:00:00* Test Item Value Reference Range Interpretation Comme nts TRICHOMONAS, NAAT, URINE (te st code = 58933) NEGATIVE Darryl F AustinCT/NG, TMA, [id number] 00:00:00* Test Item Value Reference Range Interpretation Comme nts CHLAMYDIA, NAAT, URINE (test code = 32363) NEGATIVE GONORRHEA, NAAT, URINE (test code = 88147) NEGATIVE Darryl F AustinTRICHOMONAS, URINE, [id number] 00:00:00* Test Item Value Reference Range Interpretation Comme nts TRICHOMONAS, NAAT, URINE (te st code = 05137) NEGATIVE Darryl F AustinCT/NG, TMA, [id number] 00:00:00* Test Item Value Reference Range Interpretation Comme nts CHLAMYDIA, NAAT, URINE (test code = 07484) NEGATIVE GONORRHEA, NAAT, URINE (test code = 03670) NEGATIVE Darryl F AustinTRICHOMONAS, URINE, [id number] 00:00:00* Test Item Value Reference Range Interpretation Comme nts TRICHOMONAS, NAAT, URINE (te st code = 34234) NEGATIVE Darryl F AustinCT/NG, TMA, [id number] 00:00:00* Test Item Value Reference Range Interpretation Comme nts CHLAMYDIA, NAAT, URINE (test code = 18634) NEGATIVE GONORRHEA, NAAT, URINE (test code = 69354) NEGATIVE Darryl F AustinTRICHOMONAS, URINE, [id number] 00:00:00* Test Item Value Reference Range Interpretation Comme nts TRICHOMONAS, NAAT, URINE (te st code = 03702) NEGATIVE Darryl F AustinCT/NG, TMA, [id number] 00:00:00* Test Item Value Reference Range Interpretation Comme nts CHLAMYDIA, NAAT, URINE (test code = 84213) NEGATIVE GONORRHEA, NAAT, URINE (test code = 50339) NEGATIVE Darryl F AustinTRICHOMONAS, URINE, [id number] 00:00:00* Test Item Value Reference Range Interpretation Comme nts TRICHOMONAS, NAAT, URINE (te st code = 69432) NEGATIVE Darryl F AustinCT/NG, TMA, [id number] 00:00:00* Test Item Value Reference Range Interpretation Comme nts CHLAMYDIA, NAAT, URINE (test code = 74243) NEGATIVE GONORRHEA, NAAT, URINE (test code = 56346) NEGATIVE Darryl F AustinTRICHOMONAS, URINE, [id number] 00:00:00* Test Item Value Reference Range Interpretation Comme nts TRICHOMONAS, NAAT, URINE (te st code = 68631) NEGATIVE Darryl F AustinCT/NG, TMA, [id number] 00:00:00* Test Item Value Reference Range Interpretation Comme nts CHLAMYDIA, NAAT, URINE (test code = 89425) NEGATIVE GONORRHEA, NAAT, URINE (test code = 42995) NEGATIVE Darryl F AustinTRICHOMONAS, URINE, [id number] 00:00:00* Test Item Value Reference Range Interpretation Comme nts TRICHOMONAS, NAAT, URINE (te st code = 58384) NEGATIVE Darryl F AustinCT/NG, TMA, [id number] 00:00:00* Test Item Value Reference Range Interpretation Comme nts CHLAMYDIA, NAAT, URINE (test code = 35867) NEGATIVE GONORRHEA, NAAT, URINE (test code = 17539) NEGATIVE Darryl Ackerman AustinPOCT [id number] 12:56:00* Test Item Value Reference Range Interpretation Comme nts POCT PREG (test code = 1605) Negative On board controls acceptable with C Line (test code = 3574) Yes POCT PREG LOT # (test code = 3575) [facility] [id number] POCT PREG TEST DATE (test code = 3576) 12/12/2024 Lab Interpretation (test cod e = 46031-1) [facility] [id number] 10:24:44* Test Item Value Reference Range Interpretation [...] TanNUMBER OF TISSUE PIECES: 1SUBMITTED IN CASSETTE(S): [id number]: FormalinCOMMENTS:Entirely submitted intact. F) SPECIMEN LABELED: Cervix 8:00SIZE/WEIGHT: 0.2x0.1x0.1 cm SPECIMEN COLOR: TanNUMBER OF TISSUE PIECES: 1SUBMITTED IN CASSETTE(S): [id number]: FormalinCOMMENTS:Entirely submitted intact. A) SPECIMEN LABELED: EndometriumSIZE/WEIGHT: 1.4x1.3x0.2 cm AggregateSPECIMEN COLOR: TanNUMBER OF TISSUE PIECES: multipleSUBMITTED IN CASSETTE(S): [id number]: FormalinCOMMENTS:Filtered and entirely submitted. B) SPECIMEN LABELED: EndocervixSIZE/WEIGHT: 1.7x1.5x0.3 cm AggregateSPECIMEN COLOR: TanNUMBER OF TISSUE PIECES: multipleSUBMITTED IN CASSETTE(S): [id number]: FormalinCOMMENTS:Filtered and entirely submitted. C) SPECIMEN LABELED: Cervix 1:00SIZE/WEIGHT: 0.4x0.3x0.1 cm SPECIMEN COLOR: TanNUMBER OF TISSUE PIECES: 1SUBMITTED IN CASSETTE(S): [id number]: FormalinCOMMENTS:Entirely submitted intact. D) SPECIMEN LABELED: Cervix 3:00SIZE/WEIGHT: 0.2x0.2x0.1 cm SPECIMEN COLOR: TanNUMBER OF TISSUE PIECES: 1SUBMITTED IN CASSETTE(S): [id number]: FormalinCOMMENTS:Entirely submitted intact. PATHOLOGIST: (test code = 8250) (NOTE) Gita Morocho M.D., P h.D., Board Certified in Anatomic and ClinicalPathology, Cytopathology Specimens processed and interpreted at [facility], [address] [place] [address], , CLIA: [id number] CPT: (test code = 8400) (NOTE) [id number] UNLESS O THERWISE INDICATED, ALL TESTING PERFORMED AT [facility] [address] [place] [address] ENVIRONMENTAL PROTECTION SPECIALIST: ANIBAL PAREDES M.D. CLIA NUMBER [id number] [facility] [place]. [id number] SURGICAL PATHOLOGY [id number] 00:00:00* Test Item Value Reference Range Interpretation Comme nts DIAGNOSIS: (test code = 8200) (NOTE) MICROSCOPIC DESCRIPTION: (te st code = 8210) (NOTE) CLINICAL DATA: (test code = 8401) (NOTE) GROSS DESCRIPTION: (test code = 8220) (NOTE) PATHOLOGIST: (test code = 8250) (NOTE) CPT: (test code = 8400) (NOTE) PDFE (test code = PDFReport) PDF Darryl Ackerman AustinSURGICAL PATHOLOGY [id number] 00:00:00* Test Item Value Reference Range Interpretation Comme nts DIAGNOSIS: (test code = 8200) (NOTE) MICROSCOPIC DESCRIPTION: (te st code = 8210) (NOTE) CLINICAL DATA: (test code = 8401) (NOTE) GROSS DESCRIPTION: (test code = 8220) (NOTE) PATHOLOGIST: (test code = 8250) (NOTE) CPT: (test code = 8400) (NOTE) PDFE (test code = PDFReport) PDF Darryl Ackerman AustinSURGICAL PATHOLOGY [id number] 00:00:00* Test Item Value Reference Range Interpretation Comme nts DIAGNOSIS: (test code = 8200) (NOTE) MICROSCOPIC DESCRIPTION: (te st code = 8210) (NOTE) CLINICAL DATA: (test code = 8401) (NOTE) GROSS DESCRIPTION: (test code = 8220) (NOTE) PATHOLOGIST: (test code = 8250) (NOTE) CPT: (test code = 8400) (NOTE) PDFE (test code = PDFReport) PDF [facility] [id number] 00:00:00* Test Item Value Reference Range Interpretation Comme nts DIAGNOSIS: (test code = 8200) (NOTE) MICROSCOPIC DESCRIPTION: (te st code = 8210) (NOTE) CLINICAL DATA: (test code = 8401) (NOTE) GROSS DESCRIPTION: (test code = 8220) (NOTE) PATHOLOGIST: (test code = 8250) (NOTE) CPT: (test code = 8400) (NOTE) PDFE (test code = PDFReport) PDF [facility] [id number] 00:00:00* Test Item Value Reference Range Interpretation Comme nts DIAGNOSIS: (test code = 8200) (NOTE) MICROSCOPIC DESCRIPTION: (te st code = 8210) (NOTE) CLINICAL DATA: (test code = 8401) (NOTE) GROSS DESCRIPTION: (test code = 8220) (NOTE) PATHOLOGIST: (test code = 8250) (NOTE) CPT: (test code = 8400) (NOTE) PDFE (test code = PDFReport) PDF [facility]ryl [facility]ckerman [facility] [id number] 00:00:00* Test Item Value Reference Range Interpretation Comme nts DIAGNOSIS: (test code = 8200) (NOTE) MICROSCOPIC DESCRIPTION: (te st code = 8210) (NOTE) CLINICAL DATA: (test code = 8401) (NOTE) GROSS DESCRIPTION: (test code = 8220) (NOTE) PATHOLOGIST: (test code = 8250) (NOTE) CPT: (test code = 8400) (NOTE) PDFE (test code = PDFReport) PDF [facility]ryl [facility]ckerman [place] [facility] [id number] 00:00:00* Test Item Value Reference Range Interpretation Comme nts DIAGNOSIS: (test code = 8200) (NOTE) MICROSCOPIC DESCRIPTION: (te st code = 8210) (NOTE) CLINICAL DATA: (test code = 8401) (NOTE) GROSS DESCRIPTION: (test code = 8220) (NOTE) PATHOLOGIST: (test code = 8250) (NOTE) CPT: (test code = 8400) (NOTE) PDFE (test code = PDFReport) PDF Darryl Ackerman AustinSURGICAL PATHOLOGY [id number] 00:00:00* Test Item Value Reference Range Interpretation Comme nts DIAGNOSIS: (test code = 8200) (NOTE) MICROSCOPIC DESCRIPTION: (te st code = 8210) (NOTE) CLINICAL DATA: (test code = 8401) (NOTE) GROSS DESCRIPTION: (test code = 8220) (NOTE) PATHOLOGIST: (test code = 8250) (NOTE) CPT: (test code = 8400) (NOTE) PDFE (test code = PDFReport) PDF Darryl Ackreman AustinVAGINAL PATHOGENS DNA [id number] 13:41:36* Test Item Value Reference Range Interpretation Comme nts JAZ SPECIES (test code = 24769) NEGATIVE NEGATIVE G. VAGINALIS (test code = 99427) NEGATIVE NEGATIVE T. VAGINALIS (test code = 54469) NEGATIVE NEGATIVE Note: The [facility] VPIII Microbial Identification Testis a DNA probe test intended for use in the detectionand identification of Jaz species, Gardnerellavaginalis and Trichomonas vaginalis nucleic acid. UNLESS OTHERWISE INDICATED, ALL TESTING PERFORMED AT [facility] [address] [place] [address] ENVIRONMENTAL PROTECTION SPECIALIST: ANIBAL PAREDES M.D. [place] NUMBER [id number] [facility] [place]. [id number] VAGINAL PATHOGENS DNA [id number] 00:00:00* Test Item Value Reference Range Interpretation Comme nts JAZ SPECIES (test code = 06468) NEGATIVE G. VAGINALIS (test code = 03923) NEGATIVE T. VAGINALIS (test code = 08389) NEGATIVE Darryl Ackerman AustinVAGINAL PATHOGENS DNA [id number] 00:00:00* Test Item Value Reference Range Interpretation Comme nts JAZ SPECIES (test code = 61239) NEGATIVE G. VAGINALIS (test code = 42214) NEGATIVE T. VAGINALIS (test code = 03774) NEGATIVE Darryl Ackerman AustinVAGINAL PATHOGENS DNA [id number] 00:00:00* Test Item Value Reference Range Interpretation Comme nts JAZ SPECIES (test code = ) NEGATIVE G. VAGINALIS (test code = 83392) NEGATIVE T. VAGINALIS (test code = 65367) NEGATIVE Darryl F AustinVAGINAL PATHOGENS DNA [id number] 00:00:00* Test Item Value Reference Range Interpretation Comme nts JAZ SPECIES (test code = 48870) NEGATIVE G. VAGINALIS (test code = 73469) NEGATIVE T. VAGINALIS (test code = 97494) NEGATIVE Darryl F AustinVAGINAL PATHOGENS DNA [id number] 00:00:00* Test Item Value Reference Range Interpretation Comme nts JAZ SPECIES (test code = 60207) NEGATIVE G. VAGINALIS (test code = 63344) NEGATIVE T. VAGINALIS (test code = 08271) NEGATIVE Darryl F AustinVAGINAL PATHOGENS DNA [id number] 00:00:00* Test Item Value Reference Range Interpretation Comme nts JAZ SPECIES (test code = 02878) NEGATIVE G. VAGINALIS (test code = 53054) NEGATIVE T. VAGINALIS (test code = 15246) NEGATIVE Darryl F AustinVAGINAL PATHOGENS DNA [id number] 00:00:00* Test Item Value Reference Range Interpretation Comme nts JAZ SPECIES (test code = 39950) NEGATIVE G. VAGINALIS (test code = 97707) NEGATIVE T. VAGINALIS (test code = 24430) NEGATIVE Darryl F AustinVAGINAL PATHOGENS DNA [id number] 00:00:00* Test Item Value Reference Range Interpretation Comme nts JAZ SPECIES (test code = 47313) NEGATIVE G. VAGINALIS (test code = 94257) NEGATIVE T. VAGINALIS (test code = 49445) NEGATIVE Darryl F AustinCOMP. METABOLIC PANEL ([id number] 05:34:53* Test Item Value Reference Range Interpretation Comme nts NA (test code = 5414029714) 137 mmol/L 135-145 K (test code = 1290903937) 3.9 mmol/L 3.5-5.0 CL (test code = 4584930994) 106 mmol/L 98-108 CO2 TOTAL (test code = 2983838941) 24 mmol/L 23-31 AGAP (test code = 3234894634) 7 2-16 BUN (test code = 3002499558) 10 mg/dL 7-23 GLUCOSE (test code = 4376950232) 90 mg/dL 70-110 CREATININE (test code = 5752933554) 0.94 mg/dL 0.50-1.04 TOTAL BILI (test code = 4347934056) 0.1-1.1 L CALCIUM (test code = 7594619184) 9.1 mg/dL 8.6-10.6 T PROTEIN (test code = 9571843765) 6.9 g/dL 6.3-8.2 ALBUMIN (test code = 8637101486) 4.1 g/dL 3.5-5.0 ALK PHOS (test code = 3922737268) 72 U/L 34-122 ALTv (test code = 1742-6) 24 U/L 5-35 AST(SGOT) (test code = 6236428012) 28 U/L 13-40 eGFR (test code = 7164204502) 69.5 mL/min/1.73m2 ELIA (test code = ELIA) [...] imaging tests). Lab Interpretation (test code = 19844-8) Abnormal [facility] WITH [id number] 05:16:33* Test Item Value Reference Range Interpretation Comme nts WBC (test code = 6690-2) 7.81 See_Comment [[employer]] The system which generated this result transmitted reference range: 4.30 - 11.10 10*3/?L. The reference range was not used to interpret this result as normal/abnormal. RBC (test code = 789-8) 3.89 See_Comment L [[employer]] The system which generated this result [...] g/dL 31.6-35.1 L RDW-SD (test code = 52893-9) 48.2 fL 39.0-49.9 RDW-CV (test code = 788-0) 17.9 % 12.0-15.5 H PLT (test code = 777-3) 327 See_Comment [[employer]] The system which generated this result transmitted reference range: 166 - 358 10*3/?L. The reference range was not used to interpret this result as normal/abnormal. MPV (test code = 36478-6) 9.7 fL 9.5-12.9 NRBC/100 WBC (test code = 3283307090) 0.0 See_Comment [Automated [employer] ss[employer]] The system which generated this result transmitted reference range: 0.0 - 10.0 /100 WBCs. The reference range was not used to interpret this result as normal/abnormal. NRBC x10^3 (test code = 3202744086) See_Comment [Automated messa ge] The system which generated this result transmitted reference range: 10*3/?L. The reference range was not used to interpret this result as normal/abnormal. GRAN MAT (NEUT) % (test code = 770-8) 40.4 % IMM GRAN % (test code = 9012016300) 0.10 % LYMPH % (test code = 736-9) 45.5 % MONO % (test code = 5905-5) 9.0 % EOS % (test code = 713-8) 4.5 % BASO % (test code = 706-2) 0.5 % GRAN MAT x10^3(ANC) (test code = 3056723881) 3.16 10*3/uL 1.88-7.09 IMM GRAN x10^3 (test code = 7216179227) 0.00-0.06 LYMPH x10^3 (test code = 731-0) 3.55 10*3/uL 1.32-3.29 H MONO x10^3 (test code = 742-7) 0.70 10*3/uL 0.33-0.92 EOS x10^3 (test code = 711-2) 0.35 10*3/uL 0.03-0.39 BASO x10^3 (test code = 704-7) 0.04 10*3/uL 0.01-0.07 Lab Interpretation (test code = 03648-7) [facility]normal [facility] [id number] 05:07:00* Test Item Value Reference Range Interpretation Comme nts POCT PREG (test code = 1605) Negative On board controls acceptable with C Line (test code = 3574) Yes POCT PREG LOT # (test code = 3575) 386350 POCT PREG TEST DATE ( test code = 3576) 10/17/2024 Lab Interpretation (test cod e = 12226-4) Normal [facility] TEST, THINPREP, [id number] 18:32:20 * Test Item Value Reference Range Interpretation Comme nts SOURCE: (test code = 8001) Cervical SLIDES: (test code = 8011) 1 LMP: (test code = 8021) 05/17/2023 SPECIMEN ADEQUACY: (test code = 72137) (NOTE) Satisfactory for evaluation. Endocervical cells/transformation zone component present. INTERPRETATION: (test code = 07863) ASCUS/EPITH. ABNORMALITY; SEE BELOW A - ------- EPITHELIAL CELL ABNORMALITY Atypical squamous cells of undetermined significance (ASC-US) OTHER COMMENTS: (test code = 8081) (NOTE) Trichomonas v aginalis present. FIELD CROPS HARVEST MACHINE OPERATOR: (test code = 8101) TIERA Mcgee(ASC P) PATHOLOGIST INTERPRETATION BY: (test code = 8122) Joana Luna DO LOCATION: (test code = 63734) (NOTE) Specimens proces sed and interpreted at [facility] , [address] [place] [address], , CLIA: [id number] CPT: (test code = 8140) (NOTE) 99052, 305[address] UNL ESS OTHERWISE INDICATED, COMPUTER AIDED AND FIELD CROPS HARVEST MACHINE OPERATOR SCREENING PERFORMED. The Pap test is a screening test with an inherent, but low probability of error. Your patient should be reminded to consult you immediately if she experiences any suspicious signs or symptoms, regardless of her Pap test result. An alternate report format containing images or consolidated prior Pap history is available as applicable. PAP TEST, THINPREP, [id number] 00:00:00* Test Item Value Reference Range Interpretation Comme nts SOURCE: (test code = 8001) Cervical SLIDES: (test code = 8011) 1 LMP: (test code = 8021) 05/17/2023 SPECIMEN ADEQUACY: (test code = 31024) (NOTE) INTERPRETATION: (test code = 81713) ASCUS/EPITH. ABNORMALITY; SEE BELOW OTHER COMMENTS: (test code = 8081) (NOTE) FIELD CROPS HARVEST MACHINE OPERATOR: (test code = 8101) TIERA Mcgee(ASCP) PATHOLOGIST INTERPRETATION BY: (test code = 8122) Joana Luna DO LOCATION: (test code = 81809) (NOTE) CPT: (test code = 8140) (NOTE) Darryl WaggonerANGELESP TEST, THINPREP, [id number] 00:00:00* Test Item Value Reference Range Interpretation Comme nts SOURCE: (test code = 8001) Cervical SLIDES: (test code = 8011) 1 LMP: (test code = 8021) 05/17/2023 SPECIMEN ADEQUACY: (test code = 19692) (NOTE) INTERPRETATION: (test code = 48613) ASCUS/EPITH. ABNORMALITY; SEE BELOW OTHER COMMENTS: (test code = 8081) (NOTE) FIELD CROPS HARVEST MACHINE OPERATOR: (test code = 8101) TIERA Mcgee(ASCP) PATHOLOGIST INTERPRETATION BY: (test code = 8122) Joana Luna DO LOCATION: (test code = 92151) (NOTE) CPT: (test code = 8140) (NOTE) Darryl F AbbeP TEST, THINPREP, [id number] 00:00:00* Test Item Value Reference Range Interpretation Comme nts SOURCE: (test code = 8001) Cervical SLIDES: (test code = 8011) 1 LMP: (test code = 8021) 05/17/2023 SPECIMEN ADEQUACY: (test code = 97194) (NOTE) INTERPRETATION: (test code = 07585) ASCUS/EPITH. ABNORMALITY; SEE BELOW OTHER COMMENTS: (test code = 8081) (NOTE) FIELD CROPS HARVEST MACHINE OPERATOR: (test code = 8101) TIERA Mcgee(ASCP) PATHOLOGIST INTERPRETATION BY: (test code = 8122) Joana Luna DO LOCATION: (test code = 66156) (NOTE) CPT: (test code = 8140) (NOTE) Darryl Ackerman AbbeP TEST, THINPREP, [id number] 00:00:00* Test Item Value Reference Range Interpretation Comme nts SOURCE: (test code = 8001) Cervical SLIDES: (test code = 8011) 1 LMP: (test code = 8021) 05/17/2023 SPECIMEN ADEQUACY: (test code = 67104) (NOTE) INTERPRETATION: (test code = 17441) ASCUS/EPITH. ABNORMALITY; SEE BELOW OTHER COMMENTS: (test code = 8081) (NOTE) FIELD CROPS HARVEST MACHINE OPERATOR: (test code = 8101) TIERA Mcgee(ASCP) PATHOLOGIST INTERPRETATION BY: (test code = 8122) Joana Luna DO LOCATION: (test code = 61060) (NOTE) CPT: (test code = 8140) (NOTE) Darryl Tyron EdilsonPAP TEST, THINPREP, [id number] 00:00:00* Test Item Value Reference Range Interpretation Comme nts SOURCE: (test code = 8001) Cervical SLIDES: (test code = 8011) 1 LMP: (test code = 8021) 05/17/2023 SPECIMEN ADEQUACY: (test code = 56416) (NOTE) INTERPRETATION: (test code = 91515) ASCUS/EPITH. ABNORMALITY; SEE BELOW OTHER COMMENTS: (test code = 8081) (NOTE) FIELD CROPS HARVEST MACHINE OPERATOR: (test code = 8101) TIERA Mcgee(ASCP) PATHOLOGIST INTERPRETATION BY: (test code = 8122) Joana Luna DO LOCATION: (test code = 69315) (NOTE) CPT: (test code = 8140) (NOTE) Darryl Perez TEST, THINPREP, [id number] 00:00:00* Test Item Value Reference Range Interpretation Comme nts SOURCE: (test code = 8001) Cervical SLIDES: (test code = 8011) 1 LMP: (test code = 8021) 05/17/2023 SPECIMEN ADEQUACY: (test code = 88089) (NOTE) INTERPRETATION: (test code = 00085) ASCUS/EPITH. ABNORMALITY; SEE BELOW OTHER COMMENTS: (test code = 8081) (NOTE) FIELD CROPS HARVEST MACHINE OPERATOR: (test code = 8101) TIERA Mcgee(ASCP) PATHOLOGIST INTERPRETATION BY: (test code = 8122) Joana Luna DO LOCATION: (test code = 35933) (NOTE) CPT: (test code = 8140) (NOTE) Darryl Perez TEST, THINPREP, [id number] 00:00:00* Test Item Value Reference Range Interpretation Comme nts SOURCE: (test code = 8001) Cervical SLIDES: (test code = 8011) 1 LMP: (test code = 8021) 05/17/2023 SPECIMEN ADEQUACY: (test code = 54837) (NOTE) INTERPRETATION: (test code = 45366) ASCUS/EPITH. ABNORMALITY; SEE BELOW OTHER COMMENTS: (test code = 8081) (NOTE) FIELD CROPS HARVEST MACHINE OPERATOR: (test code = 8101) TIERA Mcgee(ASCP) PATHOLOGIST INTERPRETATION BY: (test code = 8122) [facility] LOCATION: (test code = 08929) (NOTE) CPT: (test code = 8140) (NOTE) Darryl Perez TEST, THINPREP, [id number] 00:00:00* Test Item Value Reference Range Interpretation Comme nts SOURCE: (test code = 8001) Cervical SLIDES: (test code = 8011) 1 LMP: (test code = 8021) 05/17/2023 SPECIMEN ADEQUACY: (test code = 03019) (NOTE) INTERPRETATION: (test code = 78925) ASCUS/EPITH. 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 GONORRHEA, NAAT, URINE (test code = 92634) NEGATIVE NEGATIVE Testing is perfo rmed with Lucie HARRY 6800/8800 systems usingreal-time polymerase chain reaction (PCR) method. A negative result does not exclude low level infection, specimensampling error, or collection error. UNLESS OTHERWISE INDICATED, ALL TESTING PERFORMED AT [facility] [address] [place] [address] ENVIRONMENTAL PROTECTION SPECIALIST: ANIBAL PAREDES M.D. CLIA NUMBER [id number] [place]. [id number] HPV HIGH RISK WITH GENOTYPE, [id number] 17:33:46* Test Item Value Reference Range Interpretation Comme nts HPV HIGH RISK INTERP (test code = 43199) POSITIVE NEGATIVE A HPV 16 (test code = 88850) POSITIVE A HPV 18 (test code = 41064) NEGATIVE HPV, HR, OTHER GENOTYPES (test code = 43632) NEGATIVE Testing methodol ogy is real-time PCR [...] TESTING PERFORMED AT [facility] [address] [place] [address] ENVIRONMENTAL PROTECTION SPECIALIST: ANIBAL PAREDES M.D. CLIA NUMBER [id number] [place]. [id number] VAGINAL PATHOGENS DNA [id number] 16:55:18* Test Item Value Reference Range Interpretation Comme nts JZA SPECIES (test code = 66504) NEGATIVE NEGATIVE G. VAGINALIS (test code = 28762) NEGATIVE NEGATIVE T. VAGINALIS (test code = 78242) NEGATIVE NEGATIVE Note: The [facility] VPIII Microbial Identification Testis a DNA probe test intended for use in the detectionand identification of Jaz species, Gardnerellavaginalis and Trichomonas vaginalis nucleic acid. UNLESS OTHERWISE INDICATED, ALL TESTING PERFORMED AT [facility] [place]. [address] [place] [id number] ENVIRONMENTAL PROTECTION SPECIALIST: ANIBAL PAREDES M.D. CLIA NUMBER [id number] [place]. [id number] RPR REFLEX TO T. PALLIDUM - [id number] 08:07:41* Test Item Value Reference Range Interpretation Comme nts RPR (test code = 41030) NON-REACTIVE NON-REACTIVE RPR TITER (test code = 3500) NOT INDIC. TITER NOT INDIC. HIV 1/2 4TH GEN, RFLX [id number] 05:24:44* Test Item Value Reference Range Interpretation Comme nts HIV 1/2 4TH GEN, RFLX CONF ( test code = 3514) NON-REACTIVE NON-REACTIVE HPV HIGH RISK WITH GENOTYPE, [id number] 00:00:00* Test Item Value Reference Range Interpretation Comme nts HPV HIGH RISK INTERP (test c ode = 91783) POSITIVE HPV 16 (test code = 34928) POSITIVE HPV 18 (test code = 48865) NEGATIVE HPV, HR, OTHER GENOTYPES (te st code = 03968) NEGATIVE PDFE (test code = PDFReport) PDF Darryl Ackerman AustinRPR REFLEX TO T. PALLIDUM - [id number] 00:00:00* Test Item Value Reference Range Interpretation Comme nts RPR (test code = 28898) NON-REACTIVE RPR TITER (test code = 3500) NOT INDIC. TITER Darryl Ackerman AustinCT/NG, TMA, [id number] 00:00:00* Test Item Value Reference Range Interpretation Comme nts CHLAMYDIA, NAAT, URINE (test code = 97517) POSITIVE GONORRHEA, NAAT, URINE (test code = 25266) NEGATIVE Daryrl Ackerman AustinHIV 1/2 4TH GEN, RFLX [id number] 00:00:00* Test Item Value Reference Range Interpretation Comme nts HIV 1/2 4TH GEN, RFLX CONF ( test code = 3514) NON-REACTIVE Darryl Ackerman AustinVAGINAL PATHOGENS DNA [id number] 00:00:00* Test Item Value Reference Range Interpretation Comme nts JAZ SPECIES (test code = 61719) NEGATIVE G. VAGINALIS (test code = 65918) NEGATIVE T. VAGINALIS (test code = 94094) NEGATIVE Darryl F AustinRPR REFLEX TO T. PALLIDUM - [id number] 00:00:00* Test Item Value Reference Range Interpretation Comme nts RPR (test code = 94861) NON-REACTIVE RPR TITER (test code = 3500) NOT INDIC. TITER Darryl F AustinHPV HIGH RISK WITH GENOTYPE, [id number] 00:00:00* Test Item Value Reference Range Interpretation Comme nts HPV HIGH RISK INTERP (test c ode = 19219) POSITIVE HPV 16 (test code = 53085) POSITIVE HPV 18 (test code = 38769) NEGATIVE HPV, HR, OTHER GENOTYPES (te st code = 85344) NEGATIVE PDFE (test code = PDFReport) PDF Darryl Ackerman AustinCT/NG, TMA, [id number] 00:00:00* Test Item Value Reference Range Interpretation Comme nts CHLAMYDIA, NAAT, URINE (test code = 73176) POSITIVE GONORRHEA, NAAT, URINE (test code = 62298) NEGATIVE Darryl Ackerman AustinHIV 1/2 4TH GEN, RFLX [id number] 00:00:00* Test Item Value Reference Range Interpretation Comme nts HIV 1/2 4TH GEN, RFLX CONF ( test code = 3514) NON-REACTIVE Darryl WaggonerVAGINAL PATHOGENS DNA [id number] 00:00:00* Test Item Value Reference Range Interpretation Comme nts JAZ SPECIES (test code = 78470) NEGATIVE G. VAGINALIS (test code = 93422) NEGATIVE T. VAGINALIS (test code = 58574) NEGATIVE Darryl WaggonerHPV HIGH RISK WITH GENOTYPE, [id number] 00:00:00* Test Item Value Reference Range Interpretation Comme nts HPV HIGH RISK INTERP (test c ode = 09160) POSITIVE HPV 16 (test code = 83859) POSITIVE HPV 18 (test code = 06848) NEGATIVE HPV, HR, OTHER GENOTYPES (te st code = 68562) NEGATIVE PDFE (test code = PDFReport) PDF Darryl Ackerman AustinRPR REFLEX TO T. PALLIDUM - [id number] 00:00:00* Test Item Value Reference Range Interpretation Comme nts RPR (test code = 42248) NON-REACTIVE RPR TITER (test code = 3500) NOT INDIC. TITER Darryl Ackerman AustinCT/NG, TMA, [id number] 00:00:00* Test Item Value Reference Range Interpretation Comme nts CHLAMYDIA, NAAT, URINE (test code = 58798) POSITIVE GONORRHEA, NAAT, URINE (test code = 93729) NEGATIVE Darryl Ackerman AustinHIV 1/2 4TH GEN, RFLX [id number] 00:00:00* Test Item Value Reference Range Interpretation Comme nts HIV 1/2 4TH GEN, RFLX CONF ( test code = 3514) NON-REACTIVE Darryl Ackerman AustinVAGINAL PATHOGENS DNA [id number] 00:00:00* Test Item Value Reference Range Interpretation Comme nts JAZ SPECIES (test code = ) NEGATIVE G. VAGINALIS (test code = 00472) NEGATIVE T. VAGINALIS (test code = 75939) NEGATIVE Darryl Ackerman AustinHPV HIGH RISK WITH GENOTYPE, [id number] 00:00:00* Test Item Value Reference Range Interpretation Comme nts HPV HIGH RISK INTERP (test c ode = 65236) POSITIVE HPV 16 (test code = 52121) POSITIVE HPV 18 (test code = 65284) NEGATIVE HPV, HR, OTHER GENOTYPES (te st code = 27164) NEGATIVE PDFE (test code = PDFReport) PDF Darryl Ackerman AustinRPR REFLEX TO T. PALLIDUM - [id number] 00:00:00* Test Item Value Reference Range Interpretation Comme nts RPR (test code = 73524) NON-REACTIVE RPR TITER (test code = 3500) NOT INDIC. TITER Darryl Ackerman AustinCT/NG, TMA, [id number] 00:00:00* Test Item Value Reference Range Interpretation Comme nts CHLAMYDIA, NAAT, URINE (test code = 83767) POSITIVE GONORRHEA, NAAT, URINE (test code = 45824) NEGATIVE Darryl WaggonerHIV 1/2 4TH GEN, RFLX [id number] 00:00:00* Test Item Value Reference Range Interpretation Comme nts HIV 1/2 4TH GEN, RFLX CONF ( test code = 3514) NON-REACTIVE Darryl Ackerman AustinVAGINAL PATHOGENS DNA [id number] 00:00:00* Test Item Value Reference Range Interpretation Comme nts JAZ SPECIES (test code = ) NEGATIVE G. VAGINALIS (test code = 63877) NEGATIVE T. VAGINALIS (test code = 08503) NEGATIVE Darryl Ackerman AustinRPR REFLEX TO T. PALLIDUM - [id number] 00:00:00* Test Item Value Reference Range Interpretation Comme nts RPR (test code = 95483) NON-REACTIVE RPR TITER (test code = 3500) NOT INDIC. TITER Darryl Ackerman AustinHPV HIGH RISK WITH GENOTYPE, [id number] 00:00:00* Test Item Value Reference Range Interpretation Comme nts HPV HIGH RISK INTERP (test c ode = 74857) POSITIVE HPV 16 (test code = 48178) POSITIVE HPV 18 (test code = 64515) NEGATIVE HPV, HR, OTHER GENOTYPES (te st code = 77116) NEGATIVE PDFE (test code = PDFReport) PDF Darryl Ackerman AustinCT/NG, TMA, [id number] 00:00:00* Test Item Value Reference Range Interpretation Comme nts CHLAMYDIA, NAAT, URINE (test code = 46296) POSITIVE GONORRHEA, NAAT, URINE (test code = 72524) NEGATIVE Darryl Ackerman AustinHIV 1/2 4TH GEN, RFLX [id number] 00:00:00* Test Item Value Reference Range Interpretation Comme nts HIV 1/2 4TH GEN, RFLX CONF ( test code = 3514) NON-REACTIVE Darryl Ackerman AustinVAGINAL PATHOGENS DNA [id number] 00:00:00* Test Item Value Reference Range Interpretation Comme nts JAZ SPECIES (test code = 01334) NEGATIVE G. VAGINALIS (test code = 01477) NEGATIVE T. VAGINALIS (test code = 84680) NEGATIVE Darryl Ackerman AustinRPR REFLEX TO T. PALLIDUM - [id number] 00:00:00* Test Item Value Reference Range Interpretation Comme nts RPR (test code = 56190) NON-REACTIVE RPR TITER (test code = 3500) NOT INDIC. TITER Darryl Ackerman AustinHPV HIGH RISK WITH GENOTYPE, [id number] 00:00:00* Test Item Value Reference Range Interpretation Comme nts HPV HIGH RISK INTERP (test c ode = 41901) POSITIVE HPV 16 (test code = 76555) POSITIVE HPV 18 (test code = 41721) NEGATIVE HPV, HR, OTHER GENOTYPES (te st code = 27732) NEGATIVE PDFE (test code = PDFReport) PDF Darryl Ackerman AustinCT/NG, TMA, [id number] 00:00:00* Test Item Value Reference Range Interpretation Comme nts CHLAMYDIA, NAAT, URINE (test code = 65463) POSITIVE GONORRHEA, NAAT, URINE (test code = 62610) NEGATIVE Darryl Ackerman AustinVAGINAL PATHOGENS DNA [id number] 00:00:00* Test Item Value Reference Range Interpretation Comme nts JAZ SPECIES (test code = 80563) NEGATIVE G. VAGINALIS (test code = 05726) NEGATIVE T. VAGINALIS (test code = 45583) NEGATIVE Darryl Ackerman AustinHIV 1/2 4TH GEN, RFLX [id number] 00:00:00* Test Item Value Reference Range Interpretation Comme nts HIV 1/2 4TH GEN, RFLX CONF ( test code = 3514) NON-REACTIVE Darryl Ackerman AustinRPR REFLEX TO T. PALLIDUM - [id number] 00:00:00* Test Item Value Reference Range Interpretation Comme nts RPR (test code = 06982) NON-REACTIVE RPR TITER (test code = 3500) NOT INDIC. TITER Darryl WaggonerHPV HIGH RISK WITH GENOTYPE, [id number] 00:00:00* Test Item Value Reference Range Interpretation Comme nts HPV HIGH RISK INTERP (test c ode = 29314) POSITIVE HPV 16 (test code = 81148) POSITIVE HPV 18 (test code = 08688) NEGATIVE HPV, HR, OTHER GENOTYPES (te st code = 23920) NEGATIVE PDFE (test code = PDFReport) PDF Darryl Ackerman AustinCT/NG, TMA, [id number] 00:00:00* Test Item Value Reference Range Interpretation Comme nts CHLAMYDIA, NAAT, URINE (test code = 11480) POSITIVE GONORRHEA, NAAT, URINE (test code = 41509) NEGATIVE Darryl WaggonerVAGINAL PATHOGENS DNA [id number] 00:00:00* Test Item Value Reference Range Interpretation Comme nts JAZ SPECIES (test code = 24638) NEGATIVE G. VAGINALIS (test code = 47989) NEGATIVE T. VAGINALIS (test code = 03551) NEGATIVE Darryl Ackerman AustinHIV 1/2 4TH GEN, RFLX [id number] 00:00:00* Test Item Value Reference Range Interpretation Comme nts HIV 1/2 4TH GEN, RFLX CONF ( test code = 3514) NON-REACTIVE Darryl Ackerman AustinRPR REFLEX TO T. PALLIDUM - [id number] 00:00:00* Test Item Value Reference Range Interpretation Comme nts RPR (test code = 34087) NON-REACTIVE RPR TITER (test code = 3500) NOT INDIC. TITER Darryl WaggonerHPV HIGH RISK WITH GENOTYPE, [id number] 00:00:00* Test Item Value Reference Range Interpretation Comme nts HPV HIGH RISK INTERP (test c ode = 41464) POSITIVE HPV 16 (test code = 94831) POSITIVE HPV 18 (test code = 63156) NEGATIVE HPV, HR, OTHER GENOTYPES (te st code = 05727) NEGATIVE PDFE (test code = PDFReport) PDF Darryl WaggonerCT/NG, TMA, [id number] 00:00:00* Test Item Value Reference Range Interpretation Comme nts CHLAMYDIA, NAAT, URINE (test code = 86941) POSITIVE GONORRHEA, NAAT, URINE (test code = 33955) NEGATIVE Darryl WaggonerHIV 1/2 4TH GEN, RFLX [id number] 00:00:00* Test Item Value Reference Range Interpretation Comme nts HIV 1/2 4TH GEN, RFLX CONF ( test code = 3514) NON-REACTIVE Darryl WaggonerVAGINAL PATHOGENS DNA [id number] 00:00:00* Test Item Value Reference Range Interpretation Comme nts JAZ SPECIES (test code = 64229) NEGATIVE G. VAGINALIS (test code = 75017) NEGATIVE T. VAGINALIS (test code = 52882) NEGATIVE Darryl WaggonerCOMP. METABOLIC PANEL (66945)2023-05-28 07:12:09* Test Item Value Reference Range Interpretation Comme nts NA (test code = 9384460772) 138 mmol/L 135-145 K (test code = 0718374663) 3.6 mmol/L 3.5-5.0 CL (test code = 3703736666) 105 mmol/L 98-108 CO2 TOTAL (test code = 9272776843) 24 mmol/L 23-31 AGAP (test code = 3602587833) 9 2-16 BUN (test code = 3617145182) 8 mg/dL 7-23 GLUCOSE (test code = 5838323085) 94 mg/dL 70-110 CREATININE (test code = 0030189528) 0.90 mg/dL 0.50-1.04 TOTAL BILI (test code = 9726761825) 0.5 mg/dL 0.1-1.1 CALCIUM (test code = 8377971238) 9.2 mg/dL 8.6-10.6 T PROTEIN (test code = 9811413784) 7.8 g/dL 6.3-8.2 ALBUMIN (test code = 9090098570) 4.3 g/dL 3.5-5.0 ALK PHOS (test code = 3217563784) 91 U/L 34-122 ALTv (test code = 1742-6) 32 U/L 5-35 AST(SGOT) (test code = 6747396952) 48 U/L 13-40 H eGFR (test code = 9732168943) 73.0 mL/min/1.73m2 ELIA (test code = ELIA) [...] imaging tests). Lab Interpretation (test code = 13015-3) Abnormal [facility] WITH [id number] 06:45:45* Test Item Value Reference Range Interpretation [...] g/dL 31.6-35.1 L RDW-SD (test code = 67740-6) 49.8 fL 39.0-49.9 RDW-CV (test code = 788-0) 18.3 % 12.0-15.5 H PLT (test code = 777-3) 391 See_Comment H [Automated messa ge] The system which generated this result transmitted reference range: 166 - 358 10*3/?L. The reference range was not used to interpret this result as normal/abnormal. MPV (test code = 38311-9) 10.3 fL 9.5-12.9 NRBC/100 WBC (test code = 7056683593) 0.0 See_Comment [Automated [employer]are[employer] ssage] The system which generated this result transmitted reference range: 0.0 - 10.0 /100 WBCs. The reference range was not used to interpret this result as normal/abnormal. NRBC x10^3 (test code = 4509710074) See_Comment [Automated messa ge] The system which generated this result transmitted reference range: 10*3/?L. The reference range was not used to interpret this result as normal/abnormal. GRAN MAT (NEUT) % (test code = 770-8) 47.8 % IMM GRAN % (test code = 5729061007) 0.30 % LYMPH % (test code = 736-9) 39.1 % MONO % (test code = 5905-5) 8.5 % EOS % (test code = 713-8) 3.5 % BASO % (test code = 706-2) 0.8 % GRAN MAT x10^3(ANC) (test code = 3274809023) 3.73 10*3/uL 1.88-7.09 IMM GRAN x10^3 (test code = 4222873284) 0.00-0.06 LYMPH x10^3 (test code = 731-0) 3.04 10*3/uL 1.32-3.29 MONO x10^3 (test code = 742-7) 0.66 10*3/uL 0.33-0.92 EOS x10^3 (test code = 711-2) 0.27 10*3/uL 0.03-0.39 BASO x10^3 (test code = 704-7) 0.06 10*3/uL 0.01-0.07 Lab Interpretation (test code = 24662-6) Abnormal [facility] [id number] 06:40:00* Test Item Value Reference Range Interpretation Comme nts POCT PREG (test code = 1605) Negative On board controls acceptable with C Line (test code = 3574) Yes POCT PREG LOT # (test code = 3575) [id number] POCT PREG TEST DATE ( test code = 3576) 10/17/2024 Lab Interpretation (test cod e = 61096-4) Normal [facility] [id number] 06:17:00* Test Item Value Reference Range Interpretation Comme nts POCT PREG (test code = 1605) Negative On board controls acceptable with C Line (test code = 3574) Present POCT PREG LOT # (test code = 3575) [id number] POCT PREG TEST DATE ( test code = 3576) Lab Interpretation (test cod e = 43609-7) Normal [facility] [id number] 18:58:00* Test Item Value Reference Range Interpretation Comme nts POCT PREG (test code = 1605) negative Lab Interpretation (test cod e = 75913-4) Normal [facility] WITH [id number] 13:14:57* Test Item Value Reference Range Interpretation [...] g/dL 31.6-35.1 L RDW-SD (test code = 64272-1) 46.2 fL 39-49.9 RDW-CV (test code = 788-0) 17.0 % 12-15.5 H PLT (test code = 777-3) See_Comment H [Automated messa ge] The system which generated this result transmitted reference range: 166 - 358 10*3/?L. The reference range was not used to interpret this result as normal/abnormal. MPV (test code = 69853-9) 9.1 fL 9.5-12.9 L NRBC/100 WBC (test code = 0016320078) See_Comment [Automated me ssage] The system which generated this result transmitted reference range: 0.0 - 10.0 /100 WBCs. The reference range was not used to interpret this result as normal/abnormal. NRBC x10^3 (test code = 6528069600) See_Comment [Automated messa ge] The system which generated this result transmitted reference range: 10*3/?L. The reference range was not used to interpret this result as normal/abnormal. GRAN MAT (NEUT) % (test code = 770-8) 51.3 % IMM GRAN % (test code = 2227031661) 0.40 % LYMPH % (test code = 736-9) 37.0 % MONO % (test code = 5905-5) 8.5 % EOS % (test code = 713-8) 2.2 % BASO % (test code = 706-2) 0.6 % GRAN MAT x10^3(ANC) (test code = 4708819783) 4.26 10*3/uL 1.88-7.09 IMM GRAN x10^3 (test code = 3176631296) 0.03 10*3/uL 0-0.06 LYMPH x10^3 (test code = 731-0) 3.06 10*3/uL 1.32-3.29 MONO x10^3 (test code = 742-7) 0.70 10*3/uL 0.33-0.92 EOS x10^3 (test code = 711-2) 0.18 10*3/uL 0.03-0.39 BASO x10^3 (test code = 704-7) 0.05 10*3/uL 0.01-0.07 Lab Interpretation (test code = 68398-3) Abnormal [facility] [id number] 12:55:00* Test Item Value Reference Range Interpretation Comme nts POCT PREG (test code = 1605) negative On board controls acceptable with C Line (test code = 3574) present Lab Interpretation (test cod e = 94176-5) Normal [facility] [id number] 20:49:00* Test Item Value Reference Range Interpretation Comme nts POCT PREG (test code = 1605) negative On board controls acceptable with C Line (test code = 3574) yes POCT PREG LOT # (test code = 3575) [id number] POCT PREG TEST DATE ( test code = 3576) 08/14/2023 Lab Interpretation (test cod e = 86846-9) [facility] [id number] 08:01:55* Test Item Value Reference Range Interpretation Comme nts NA (test code = 4316156644) 138 mmol/L 135-145 K (test code = 1031300727) 4.2 mmol/L 3.5-5 CL (test code = 4929767234) 107 mmol/L 98-108 CO2 TOTAL (test code = 6474339378) 20 mmol/L 23-31 L AGAP (test code = 5035364596) 2-16 BUN (test code = 2026402129) 10 mg/dL 7-23 GLUCOSE (test code = 6667130700) 105 mg/dL 70-110 CREATININE (test code = 2584269293) 0.86 mg/dL 0.5-1.04 TOTAL BILI (test code = 1410213209) 0.1-1.1 L CALCIUM (test code = 0598493460) 9.1 mg/dL 8.6-10.6 T PROTEIN (test code = 6434548280) 7.4 g/dL 6.3-8.2 ALBUMIN (test code = 8351126228) 4.8 g/dL 3.5-5 ALK PHOS (test code = 7897553047) 81 U/L 34-122 ALTv (test code = 1742-6) 17 U/L 5-35 AST(SGOT) (test code = 8338962366) 19 U/L 13-40 eGFR (test code = 7045053176) mL/min/1.73m2 ELIA (test code = ELIA) Association [...] imaging tests). Lab Interpretation (test code = 35816-3) [facility]ville[facility], [id number] 07:59:48* Test Item Value Reference Range Interpretation Comme nts LIPASE (test code = 0611377476) 94 U/L 0-220 Lab Interpretation (test cod e = 61959-3) [facility]CBC with [id number] 07:47:29* Test Item Value Reference Range Interpretation Comme nts WBC (test code = 6690-2) See_Comment [Automated Spontacts] The system which generated this result transmitted reference range: 4.30 - 11.10 10*3/?L. The reference range was not used to interpret this result as normal/abnormal. RBC (test code = 789-8) See_Comment [Automated Spontacts] The system which generated this result transmitted [...] g/dL 31.6-35.1 L RDW-SD (test code = 50585-4) 40.2 fL 39-49.9 RDW-CV (test code = 788-0) 15.0 % 12-15.5 PLT (test code = 777-3) See_Comment [Automated messa ge] The system which generated this result transmitted reference range: 166 - 358 10*3/?L. The reference range was not used to interpret this result as normal/abnormal. MPV (test code = 61356-3) 10.1 fL 9.5-12.9 NRBC/100 WBC (test code = 1174845746) See_Comment [Automated me ssage] The system which generated this result transmitted reference range: 0.0 - 10.0 /100 WBCs. The reference range was not used to interpret this result as normal/abnormal. NRBC x10^3 (test code = 0448573937) See_Comment [Automated messa ge] The system which generated this result transmitted reference range: 10*3/?L. The reference range was not used to interpret this result as normal/abnormal. GRAN MAT (NEUT) % (test code = 770-8) 46.6 % IMM GRAN % (test code = 6836879309) 0.40 % LYMPH % (test code = 736-9) 40.7 % MONO % (test code = 5905-5) 8.6 % EOS % (test code = 713-8) 3.3 % BASO % (test code = 706-2) 0.4 % GRAN MAT x10^3(ANC) (test code = 8505563259) 3.40 10*3/uL 1.88-7.09 IMM GRAN x10^3 (test code = 8845721380) 0.03 10*3/uL 0-0.06 LYMPH x10^3 (test code = 731-0) 2.97 10*3/uL 1.32-3.29 MONO x10^3 (test code = 742-7) 0.63 10*3/uL 0.33-0.92 EOS x10^3 (test code = 711-2) 0.24 10*3/uL 0.03-0.39 BASO x10^3 (test code = 704-7) 0.03 10*3/uL 0.01-0.07 Lab Interpretation (test code = 73475-1) [facility] [id number] 07:37:00* Test Item Value Reference Range Interpretation Comme nts POCT PREG (test code = 1605) Negative On board controls acceptable with C Line (test code = 3574) Present POCT PREG LOT # (test code = 3575) [id number] POCT PREG TEST DATE ( test code = 3576) 08/14/2023 Lab Interpretation (test cod e = 97392-0) [facility] [id number] 22:19:00* Test Item Value Reference Range Interpretation Comme nts POCT PREG (test code = 1605) NEGATIVE On board controls acceptable with C Line (test code = 3574) present POCT PREG LOT # (test code = 3575) [id number] POCT PREG TEST DATE ( test code = 3576) 07/14/2023 Lab Interpretation (test cod e = 30944-4) [facility] [id number] 19:54:00* Test Item Value Reference Range Interpretation Comme nts POCT PREG (test code = 1605) negative On board controls acceptable with C Line (test code = 3574) present POCT PREG LOT # (test code = 3575) [id number] POCT PREG TEST DATE ( test code = 3576) 12/12/2022 Lab Interpretation (test cod e = 90643-5) [facility]:28[facility]* Test Item Value Reference Range Interpretation Comme nts FERRITIN (test code = 2075) 3 NG/ML 13-200 L [id number] 04:37:13* Test Item Value Reference Range Interpretation Comme nts TRANSFERRIN (test code = 4936) 385 MG/DL 200-360 H UNLESS OTHERWISE INDICATED, ALL TESTING PERFORMED [facility] [address] [place] [address] [employer]VIR[employer] PROTECTION SPECIALIST: NICOLE GUSMAN M.D. CLIA NUMBER [id number] [facility] [place]. [id number] IRON BINDING CAPACITY AND IRON AND % [id number] 04:19:01* Test Item Value Reference Range Interpretation Comme nts IRON, SERUM (test code = 2222) 11 UG/DL 37-145 L UNSATURATED IBC (test code = 50295) 442 UG/DL 112-347 H CALC TOTAL IBC (test code = 2077) 453 UG/DL 250-450 H CALC % IRON SAT (test code = 2078) 2 % 20-50 L IRON BINDING CAPACITY AND IRON AND % [id number] 00:00:00* Test Item Value Reference Range Interpretation Comme nts IRON, SERUM (test code = 2) 11 UG/DL UNSATURATED IBC (test code = 96762) 442 UG/DL CALC TOTAL IBC (test code = 7) 453 UG/DL CALC % IRON SAT (test code = 9) 2 % Darryl F [id number] 00:00:00* Test Item Value Reference Range Interpretation Comme nts FERRITIN (test code = 2074) 3 NG/ML Darryl F [id number] 00:00:00* Test Item Value Reference Range Interpretation Comme nts TRANSFERRIN (test code = 4936) 385 MG/DL Darryl F AustinIRON BINDING CAPACITY AND IRON AND % [id number] 00:00:00* Test Item Value Reference Range Interpretation Comme nts IRON, SERUM (test code = 2221) 11 UG/DL UNSATURATED IBC (test code = 55794) 442 UG/DL CALC TOTAL IBC (test code = 2076) 453 UG/DL CALC % IRON SAT (test code = 2078) 2 % Darryl F NtefrtHSBEDJEO5051-72-80 00:00:00* Test Item Value Reference Range Interpretation Comme nts FERRITIN (test code = 2074) 3 NG/ML Darryl F [id number] 00:00:00* Test Item Value Reference Range Interpretation Comme nts TRANSFERRIN (test code = 4936) 385 MG/DL Darryl F AustinIRON BINDING CAPACITY AND IRON AND % [id number] 00:00:00* Test Item Value Reference Range Interpretation Comme nts IRON, SERUM (test code = 2221) 11 UG/DL UNSATURATED IBC (test code = 40978) 442 UG/DL CALC TOTAL IBC (test code = 7) 453 UG/DL CALC % IRON SAT (test code = 9) 2 % Darryl F LywiubQHMLIGUE3057-42-09 00:00:00* Test Item Value Reference Range Interpretation Comme nts FERRITIN (test code = 2074) 3 NG/ML Darryl F BrkjedZUXGMVTCXDC9007-90-87 00:00:00* Test Item Value Reference Range Interpretation Comme nts TRANSFERRIN (test code = 4936) 385 MG/DL Darryl F AustinIRON BINDING CAPACITY AND IRON AND % [id number] 00:00:00* Test Item Value Reference Range Interpretation Comme nts IRON, SERUM (test code = 2222) 11 UG/DL UNSATURATED IBC (test code = 04022) 442 UG/DL CALC TOTAL IBC (test code = 7) 453 UG/DL CALC % IRON SAT (test code = 2079) 2 % Darryl F [id number] 00:00:00* Test Item Value Reference Range Interpretation Comme nts FERRITIN (test code = 2074) 3 NG/ML Darryl F [id number] 00:00:00* Test Item Value Reference Range Interpretation Comme nts TRANSFERRIN (test code = 4936) 385 MG/DL Darryl F AustinIRON B[employer]ACITY AND IRON AND % [id number] 00:00:00* Test Item Value Reference Range Interpretation Comme nts IRON, SERUM (test code = 2222) 11 UG/DL UNSATURATED IBC (test code = 75227) 442 UG/DL CALC TOTAL IBC (test code = 7) 453 UG/DL CALC % IRON SAT (test code = 9) 2 % Darryl F [id number] 00:00:00* Test Item Value Reference Range Interpretation Comme nts FERRITIN (test code = 5) 3 NG/ML Darryl F [id number] 00:00:00* Test Item Value Reference Range Interpretation Comme nts TRANSFERRIN (test code = 4936) 385 MG/DL Darryl F AustinIRON B[employer]ACITY AND IRON AND % [id number] 00:00:00* Test Item Value Reference Range Interpretation Comme nts IRON, SERUM (test code = 2222) 11 UG/DL UNSATURATED IBC (test code = 04336) 442 UG/DL CALC TOTAL IBC (test code = 7) 453 UG/DL CALC % IRON SAT (test code = 2079) 2 % Darryl F [id number] 00:00:00* Test Item Value Reference Range Interpretation Comme nts FERRITIN (test code = 5) 3 NG/ML Darryl F [id number] 00:00:00* Test Item Value Reference Range Interpretation Comme nts TRANSFERRIN (test code = 4936) 385 MG/DL Darryl F AustinIRON B[employer]ACITY AND IRON AND % [id number] 00:00:00* Test Item Value Reference Range Interpretation Comme nts IRON, SERUM (test code = 2222) 11 UG/DL UNSATURATED IBC (test code = 58300) 442 UG/DL CALC TOTAL IBC (test code = 7) 453 UG/DL CALC % IRON SAT (test code = 2079) 2 % Darryl F [id number] 00:00:00* Test Item Value Reference Range Interpretation Comme nts FERRITIN (test code = 2074) 3 NG/ML Darryl F [id number] 00:00:00* Test Item Value Reference Range Interpretation Comme nts TRANSFERRIN (test code = 4936) 385 MG/DL Darryl F AustinIRON BINDING CAPACITY AND IRON AND % [id number] 00:00:00* Test Item Value Reference Range Interpretation Comme nts IRON, SERUM (test code = 2222) 11 UG/DL UNSATURATED IBC (test code = 84303) 442 UG/DL CALC TOTAL IBC (test code = 7) 453 UG/DL CALC % IRON SAT (test code = 9) 2 % Darryl F [id number] 00:00:00* Test Item Value Reference Range Interpretation Comme nts FERRITIN (test code = 2074) 3 NG/ML Darryl F [id number] 00:00:00* Test Item Value Reference Range Interpretation Comme nts TRANSFERRIN (test code = 4936) 385 MG/DL Darryl F AustinIRON BINDING CAPACITY AND IRON AND % [id number] 00:00:00* Test Item Value Reference Range Interpretation Comme nts IRON, SERUM (test code = 2222) 11 UG/DL UNSATURATED IBC (test code = 43505) 442 UG/DL CALC TOTAL IBC (test code = 2077) 453 UG/DL CALC % IRON SAT (test code = 2079) 2 % [id number] 00:00:00* Test Item Value Reference Range Interpretation Comme nts FERRITIN (test code = 5) 3 NG/ML [id number] 00:00:00* Test Item Value Reference Range Interpretation Comme nts TRANSFERRIN (test code = 4936) 385 MG/DL IRON BINDING CAPACITY AND IRON AND % [id number] 00:00:00* Test Item Value Reference Range Interpretation Comme nts IRON, SERUM (test code = 2222) 11 UG/DL UNSATURATED IBC (test code = 84855) 442 UG/DL CALC TOTAL IBC (test code = 2077) 453 UG/DL CALC % IRON SAT (test code = 2079) 2 % [id number] 00:00:00* Test Item Value Reference Range Interpretation Comme nts FERRITIN (test code = 2075) 3 NG/ML [id number] 00:00:00* Test Item Value Reference Range Interpretation Comme nts TRANSFERRIN (test code = 4936) 385 MG/DL TSH, THIRD [id number] 06:15:03* Test Item Value Reference Range Interpretation Comme nts TSH, THIRD GENERATION (test code = 2821) 0.675 UIU/ML 0.400-4.100 UNLESS OTHERWISE INDICATED, ALL TESTING PERFORMED [facility] [address] [place] [address] ENVIRONMENTAL PROTECTION SPECIALIST: NICOLE GUSMAN M.D. CLIA NUMBER [id number] [facility] [place]. [id number] CBC W/AUTO DIFF WITH [id number] 02:57:36* Test Item Value Reference Range Interpretation [...] 0.00-0.10 ABS NUCLEATED RBCS (test code = 27558) 0.00 K/UL 0.00-0.11 [id number] 00:00:00* Test Item Value Reference Range Interpretation Comme nts TSH, THIRD GENERATION (test code = 2821) 0.675 UIU/ML [facility]O [id number] 00:00:00* Test Item Value Reference Range Interpretation [...] ABS NUCLEATED RBCS (test cod e = 48680) 0.00 K/UL Darryl [id number] 00:00:00* Test Item Value Reference Range Interpretation Comme nts TSH, THIRD GENERATION (test code = 2821) 0.675 UIU/ML Darryl WaggonerCBC W/AUTO [id number] 00:00:00* Test Item Value Reference Range Interpretation [...] ABS NUCLEATED RBCS (test cod e = 07504) 0.00 K/UL Darryl [id number] 00:00:00* Test Item Value Reference Range Interpretation Comme nts TSH, THIRD GENERATION (test code = 2821) 0.675 UIU/ML Darryl WaggonerCBC W/AUTO [id number] 00:00:00* Test Item Value Reference Range Interpretation [...] ABS NUCLEATED RBCS (test cod e = 10388) 0.00 K/UL Darryl [id number] 00:00:00* Test Item Value Reference Range Interpretation Comme nts TSH, THIRD GENERATION (test code = 2821) 0.675 UIU/ML Darryl WaggonerCBC W/AUTO [id number] 00:00:00* Test Item Value Reference Range Interpretation [...] ABS NUCLEATED RBCS (test cod e = 56548) 0.00 K/UL Darryl [id number] 00:00:00* Test Item Value Reference Range Interpretation Comme nts TSH, THIRD GENERATION (test code = 2821) 0.675 UIU/ML Darryl WaggonerCBC W/AUTO [id number] 00:00:00* Test Item Value Reference Range Interpretation [...] ABS NUCLEATED RBCS (test cod e = 96013) 0.00 K/UL Darryl Ackerman [id number] 00:00:00* Test Item Value Reference Range Interpretation Comme nts TSH, THIRD GENERATION (test code = 2821) 0.675 UIU/ML Darryl Ackerman [facility] W/AUTO [id number] 00:00:00* Test Item Value Reference Range Interpretation [...] ABS NUCLEATED RBCS (test cod e = 10260) 0.00 K/UL Darryl [id number] 00:00:00* Test Item Value Reference Range Interpretation Comme nts TSH, THIRD GENERATION (test code = 2821) 0.675 UIU/ML Darryl WaggonerCBC W/AUTO [id number] 00:00:00* Test Item Value Reference Range Interpretation [...] ABS NUCLEATED RBCS (test cod e = 65935) 0.00 K/UL Darryl [id number] 00:00:00* Test Item Value Reference Range Interpretation Comme nts TSH, THIRD GENERATION (test code = 2821) 0.675 UIU/ML Darryl WaggonerCBC W/AUTO [id number] 00:00:00* Test Item Value Reference Range Interpretation [...] ABS NUCLEATED RBCS (test cod e = 04481) 0.00 K/UL Darryl WaggonerCBC W/AUTO [id number] 00:00:00* Test Item Value Reference Range Interpretation [...] ABS NUCLEATED RBCS (test cod e = 05573) 0.00 K/UL [id number] 00:00:00* Test Item Value Reference Range Interpretation Comme nts TSH, THIRD GENERATION (test code = 2821) 0.675 UIU/ML CBC W/AUTO [id number] 00:00:00* Test Item Value Reference Range Interpretation [...] ABS NUCLEATED RBCS (test cod e = 12744) 0.00 K/UL [id number] 00:00:00* Test Item Value Reference Range Interpretation Comme nts TSH, THIRD GENERATION (test code = 2821) 0.675 UIU/ML Notes Date/Time Note Provider Source 2025-04-14 11:33:02 Patient given discharge instructions on abdominal pain. Given prescription X 1 for bentyl. Pt advised to follow up with pcp. Pt left ER ambulatory, no signs of distress. T [facility] [employer] 2025-04-14 08:08:05 Patient states: "I do have GI issues, gastritis and esophagitis. I had to stop taking the meds because it caused my anemia to be worse. I have zofran and take that. I'm just having sharp stabbing pain." Reports pain started Sunday. [facility] 2025-04-14 07:58:00 [facility] Emergency Department Note Patient Name: Mini Zhu Date of : 1990 34 year old female Treatment Room: [facility] Primary Care Physician: Lorraine Blanco Patient Escorted [...] anemia. 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 METABOLIC PANEL (71793) - Abnormal NA 138 135 - 145 [...] contrast Cbc with Diff Comp. Metabolic Panel (20600) Lipase POCT Test Urinalysis Orders Placed This [...] Specialty: FAMILY MEDICINE Relationship: PCP - General [address] [place] [id number] Instructions: For follow up of the presenting symptoms. [facility] Specialty: Emergency Medicine [address] [place] [address] Instructions: If symptoms worsen as documented in the discharge Electronically signed by: Hermilo Ricks DO 04/14/25 1109 [facility] 2025-03-09 02:45:01 Pt given printed and [...] steady gait, in no apparent distress, T [facility] 2025-03-08 21:30:20 Pt arrived ambulatory without assist. Pt with her, okay to discuss care with him. Pt c/o migraine that started today and left ovary pain since Sunday. Duyen Pereira RN [facility] 2025-01-27 13:53:03 Pt given printed and [...] steady gait, in no apparent distress, T [facility] 2025-01-27 12:24:45 Patient arrived ambulatory c/o headache that started approximately at midnight associated with vomiting and sensitivity to lights. Patient attempted to take ibuprofen when she vomited the medication. Patient has frequent headaches and diagnosed with chronic migraines. AT Celina Proctor RN [facility] 2025-01-21 08:15:25 Pt has been scheduled Tanya Velasco [facility] 2025-01-19 13:34:00 Mini Zhu is a 34 year old female Patient returning missed call to schedule PGY appointment. She states she did not have any voicemails. Please advise [facility] 2025-01-17 04:21:41 Awake, alert oriented X4, [...] with steady gait. T Senia Narvaez RN [facility] 2025-01-17 02:22:34 Cc: abdominal pain, N/V, and migraine began at 11PM 01/16 T [facility] 2025-01-16 10:05:56 2nd attempt no answer T Tanya Velasco [facility] 2025-01-15 12:25:21 1st attempt to contact pt, no answer T [facility] 2025-01-13 10:37:29 Mini Zhu is a 34 year old female Pt calling wanting to r/s her appt that was scheduled for 01/16/25. Please assist [phone] (home) [phone] (work) [facility] 2025-01-05 09:43:48 Pt given printed and [...] Left with spouse. T Trista Coronel RN [facility] 2025-01-05 09:27:55 [facility] ED Transfer of Care Note. Off-going [...] components within normal limits COMP. METABOLIC PANEL (33545) - Abnormal; Notable for the following components: [...] Disposition Discharge Condition Stable Comment -- T [facility] 2025-01-05 08:39:35 Patient given ice water to po challenge [facility] Celina Proctor RN [facility] 2025-01-05 07:05:00 Nurse Report Report received from LINA Martines. Chief complaint, assessment findings, and orders reviewed. Plan of care discussed with both nurses. Trista Coronel RN [facility] 2025-01-05 05:35:15 Patient up using the bathroom, ambulated independently with a steady gait. Back to bed, on monitor, updated on plan of care. Call light within reach. Bobbi Siddiqi RN [facility] 2025-01-05 05:09:11 C/o cough, body aches, chills, vomiting, nausea, diarrhea x4 days Feels like she's been running a fever but has no thermometer Jess Gonzalez RN [facility] 2024-12-18 01:21:52 Awake, alert oriented X4, [...] noted upon discharge Pt ambulated to [facility] with steady gait [employer] Kait Seay RN [facility]2025-03-05 23:49:02 Patient arrived ambulatory to ED c/o right sided migraine that worsened tonight. Oral sx on 12/05, had three teeth taken out. Abx have been finished already. Vomited tonight and made her migraine worse. Patient states Zofran is not working anymore. [employer] ARCH[employer] [facility] HospitalHdacws7393-17-93 00:00:00 Darryl Arriaga [facility]2025-02-13 00:00:00 Darryl Arriaga [facility]2025-02-04 22:45:36 Pt given printed and verbal [...] assist, in no apparent distress, Dur[facility] HealthSgahla7225-29-98 20:59:33 CC: R sided jaw pain that radiates down her neck. Pain began at 9PM. Took Ibu 800mg at 2PM, applying warm/cold compress Patel [facility] HealthBxewyc5674-48-94 20:55:00 [facility] Emergency Department Note Patient Name: Mini Zhu Date of : 1990 33 year old female Treatment Room: [place] [address] Primary Care Physician: Rachelle Darryl [facility] Patient Escorted by: Family [5] Mode of Arrival: Personal means [1] EMS Treatment Prior to ED Arrival: TEACHING YOUNG treatment: Other (comment) TEACHING YOUNG treatment comments: See triage note Travel and [...] [facility] [place] for further management prompting ED visit. History provided by: Patient and medical records hose mender used: No Dental Problem Location: Lower Lower [...] (eight) hours as needed for Alternate with [place] for pain scale 1-3. CONTINUE taking these medications which have NOT CHANGED ALBUTEROL 90 MCG/ACTUATION INHALER Inhale 2 Puffs every 4 (four) hours as needed for Wheezing or Shortness of Breath. AZITHROMYCIN (ZITHROMAX Z-RAMESH) 250 MG TABLET Take 2 tablets by mouth SEE-INSTRUCTIONS. Take 500 mg day 1, then 250 mg days 2 to 5. ORMDFOIPEP-XFBPHNHSULELY-TRVX 50-325-40 MG TABLET Take 1 tablet by mouth every 6 (six) hours as needed (Headache). TCKXTNGXWL-CPTCGZKTZRLVW-INZK 50-325-40 MG TABLET Take 1 tablet by [...] Electronically signed by: Selene Parra MD 11/18/242237 [place] [address]-01-25 22:45:36 ERP MSE patient [place] [address]-01-25 22:35:26 CC: tail bone pain, began today 5PM. Patient states she was horse playing, and got kneed on the tailbone. [facility] Nicole [facility]el [facility] HealthQmqver7475-11-60 00:00:00 Darryl [facility]2024-11-11 00:00:00 [facility] 10:46:00 Written/verbal D/c instructions, out of er no distress, [place] 552654-10-11 10:30:00 Pt has had no emesis since arrival [place] 552654-10-11 07:48:10 Mini Zhu is a 33 year old female c/o n/v/d since Sunday, states this morning at 0700 threw up blood, no abdominal pain, states now has a headache, alert cheerful, states hx gastritis, esophagitis and iron def anemia, ran out of pantoprazole and takes iron occasionally. States her bipolar meds aren't staying down either, [facility] Sheila Starkey [place] 851634-09-25 00:00:00 Darryl Arriaga [facility]2024-09-20 05:48:27 Discharge information given verbally and in writing, including of s/s of when to return to ER Patient denies questions and verbalized understanding. IV discontinued without issue. Pt ambulated off unit with steady gate, vital signs stable, no acute distress. [facility] Jovana Hooper [place] 851634-09-20 02:26:00 Lower abd pain since midnight, and back pain, pt states she has shingles and has been using tropical cream for tx. [place] 552654-06-04 00:00:00 Darryl Arriaga [facility]2024-05-29 06:06:53 Pt given printed and verbal [...] in no apparent distress. Ashly Srivastava [facility] HealthYpnetd4408-01-33 02:07:22 Pt given urine cup and placed in the lobby, pt advice to notify nurse with any other concerns or if symptoms worsen. [facility]sm4802-85-46 02:02:32 C/O states that she began vomited blood X5 since midnight. T Kait Seay [facility] HealthMxmnjy7718-19-97 00:00:00 Darryl Arriaga [facility]2024-04-21 07:09:15 Pt given printed and verbal [...] no apparent distress, Cl Estrada RNUTMB - [id number] 03:59:45 Pt states that she vomiting 6 times a day, pt states that she had a vomiting episode that was different tonight, she states that it was dark and looks like a bunch of clots pt states that this happened approx 45 mins general engineer Kait Seay [facility] - [id number] 03:51:00 [facility] Emergency Department Note Patient Name: Mini Zhu Date of : 1990 33 year old female Treatment Room: TX5/AK5 Primary Care Physician: Rachelle Ackerman [facility] Patient Escorted by: Family [5] Mode of Arrival: Personal means [1] EMS Treatment Prior to ED Arrival: TEACHING YOUNG treatment: None Travel and Exposure Screening: Symptoms [...] by: Patient, medical records and significant other hose mender used: No Abdominal Pain Pain location: Generalized [...] Lab Results: Lab Results COMP. METABOLIC PANEL (75951) - Abnormal Result Value Ref Range NA [...] then 250 mg days 2 to 5. GPRIKJRQFD-NJKRSSCMBELZS-XFKU 50-325-40 MG TABLET Take 1 tablet by [...] for follow-up Tommie Arita MD Specialty: IM-GASTROENTEROLOGY [facility] [address] [id number] Electronically signed by: Selene Parra MD 02/03/24 0658 T [facility] - [id number] 00:43:46 Pt given printed and verbal discharge [...] leaving in no apparent distress, Ashly Gibson [place] 851634-03-20 00:31:47 Pt notified covid test was inconclusive. She refuses additional covid swabbing. She reports continuing head congestion. Dr. Marie in to see pt at this time. [facility]Rxkdnj3116-27-17 22:22:36 Pt arrived ambulatory with c/o congestion. Pt states I have bad congestion, sneezing, coughing and headache. No fever. I vomited once prior to coming to the ED." Duyen Pereira [facility] HealthRjkpop1565-31-73 05:22:47 Awake, alert oriented X4, respiratory even [...] noted upon discharge Pt [facility] with steady gait Kait Seay [place] 851634-03-13 03:48:35 Pt arrived with c/ migraine headache off-and-on for 7 days. Pt took Midol at 6:30pm. Pt report the Midol help for about 30 minutes then the headache came back. Pt states she has tried Ibu, tylenol, and naproxen but none of these medications have helped her migraine. Nicole Patel RNUT - Vcklhb8384-41-94 03:43:00 [facility] Emergency Department Note Patient Name: Mini Zhu Date of : 1990 33 year old female Treatment Room: [place] [address] Primary Care Physician: Rachelle Ackerman [facility] Patient Escorted by: Family [5] Mode of Arrival: Personal means [1] EMS Treatment Prior to ED Arrival: TEACHING YOUNG treatment: None Travel and Exposure Screening: Symptoms [...] History provided by: Patient and medical records hose mender used: No Headache Pain location: Frontal Quality: [...] this encounter. Orders Placed This Encounter Medications fuqekhfhjm-yboklpdnkiprf-lppq (ESGIC) 50-325-40 mg tablet 1 tablet First Provider Eval: ED Events Date/Time Event User Comments 12/26/23 0184 Medical Screening Begins SELENE PARRA MD -- [...] Follow-up: Contact information for follow-up Darryl Ackerman [facility], [facility] Relationship: PCP - General [address] [place] [phone] Demetrio Stout MD Specialty: PN-NEUROLOGY [facility] [address] [place] [phone] Electronically signed by: Selene Parra MD 12/26/23439 T [facility] - Pvgqib7985-00-92 10:50:14 Patient discharged home. Follow up with pcp in 2-3 days. Return with worsening symptoms. Verbalized dc instructions. Signed paper work. Davis [place] 851634-02-06 06:42:12 Bilateral lower abdominal pain on and off for month. Pain started this morning at 1230 and hasn't stopped. Saw by OB, US ordered pt unable to pay for it. Was instructed to got to ER if got worse. Vomited 3 time this am [employer] Maliha Paniagua [place] 851634-01-29 01:09:27 Pt given printed and verbal discharge [...] steady gait, in no apparent distress. Peraza [place] 851634-01-29 00:35:00 PO challenge completed. Patient tolerating water and crackers. [place] 176344-01-29 00:06:08 Patient arrived ambulatory to ED c/o vomiting. Patient states vomiting up her dinner and then vomiting "bright red chunks." Diarrhea x a couple of days. No medications taken TEACHING YOUNG. Keen [place] 851634-01-29 00:03:00 [facility] Emergency Department Note Patient Name: Mini Zhu Date of : 1990 32 year old female Treatment Room: Room/bed info not found Primary Care Physician: Rachelle Waggoner [facility] Patient Escorted by: Family [5] Mode of Arrival: Personal means [1] EMS Treatment Prior to ED Arrival: TEACHING YOUNG treatment: None Travel and Exposure Screening: Symptoms [...] 200 mg capsule Comments: Reason for Stopping: vgofyvtlnq-sopbawgbebqwj-zrhb 50-325-40 mg tablet Comments: Reason for Stopping: megestroL 40 mg tablet Comments: Reason for Stopping: tamsulosin 0.4 mg 24 hr capsule Comments: Reason for Stopping: ketorolac 10 mg tablet Comments: Reason for Stopping: Follow-up: Electronically signed by: Chayo Srivastava DO 11/12/23 0104 [employer] [facility]Ktwuix3428-95-20 20:56:44 Pt discharged home, given all education and information regarding s/s of worsening condition; prescription use; pain and fever management as well as the importance of follow up. Pt verbalized understanding. Alert and ambulatory to [facility] with family. [facility] Wilman Felix [facility] HealthEdezfj2329-26-66 20:24:32 Pt arrived ambulatory with complaints of viral symptoms x2 days. Pt is positive and she took home test today and is positive too. Pt was concerned because her fever was 101 and her husbands only hit 100f. Pt has n/v but hasn't taken her Zofran. [facility] Cora ePraza [facility] HealthHzurko2140-30-61 06:48:38 Prescriptions provided Pt verbalized understanding of [...] with steady gait, in no apparent distress. [facility] HospitalGkytjx2271-42-35 05:26:28 Pt arrives ambulatory to ED c/o left sided lower abdominal pain. She reports that she came in last week and was found to have multiple gynecological issues and was given multiple prescriptions which she says has not helped her pain issue. LMP: 06/12/2023 Ashly Srivastava [facility]NDay[facility] HospitalRbddgj4805-72-37 05:14:00 [facility] Emergency Department Note Patient Name: Mini Zhu Date of : 1990 32 year old female Treatment Room: [facility] FT/[id number] Primary Care Physician: Rachelle Ackerman [facility] Patient Escorted by: Family [5] Mode of Arrival: Personal means [1] EMS Treatment Prior to ED Arrival: TEACHING YOUNG treatment: None Travel and Exposure Screening: Symptoms [...] by: Patient, medical records and significant other hose mender used: No Abdominal Pain Pain location: LLQ [...] (three) times daily as needed for Cough. VRXLKYRQUG-KYYLFZNZFSNHR-UUCK 50-325-40 MG TABLET Take 1 tablet by [...] Jaime Rebolledo MD Specialty: ORT-ORTHOPAEDIC SURGERY [address] [facility] [phone] Electronically signed by: Selene Parra MD 06/24/23632 T [facility] HospitalQitkyw7797-67-18 01:30:00 Awake, alert oriented X4, respiratory even [...] ambulated to the lobby with steady gait [place] [address]-09-03 23:50:11 C/O head congestion, chest congestion, body aches, sore throat since last Sunday, pt denies any fever. [facility] Kait Seay [place]lex[place] [address]-09-03 23:45:00 [facility] Emergency Department Note Patient Name: Mini Zhu Date of : 1990 32 year old female Treatment Room: Room/bed info not found Primary Care Physician: Rachelle Ackerman [facility] Patient Escorted by: Family [5] Mode of Arrival: Personal means [1] EMS Treatment Prior to ED Arrival: TEACHING YOUNG treatment: None Travel and Exposure Screening: Symptoms [...] clinic, negative x2. Recent encounters: 1. 06/11/23. [facility] ED. Pelvic pain. PID prophylaxis in ED. US Pelvis, fibroid, right ovarian cyst, notorsion, thickened endometrium 2. 06/11/23. [facility]. After ED encounter. Previously scheduled appointment. Trichomonas. [...] taking these medications which have NOT CHANGED AWHPTJHQEG-VTCRZLZPGMAVP-QSXP 50-325-40 MG TABLET Take 1 tablet by [...] Electronically signed by: Michelle Terry MD 06/18/23112 [facility] - [id number] 04:46:51 Pt given printed and verbal discharge [...] no apparent distress, accompanied by her . [facility] HospitalJdkbzn1236-52-78 23:09:00 Patient states: "I've been having suprapubic pain for about a week now, worst was since . 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 I took Midol an hour ago for my painbut no relief." T Yenny Blevins [facility] HealthJfnzhp2839-80-25 23:06:00 [facility] ED Transfer of Care Note. Off-going [...] components within normal limits COMP. METABOLIC PANEL (58750) - Abnormal; Notable for the following components: [...] fibroid. Severe endometrial thickening measuring 2.5 cm. [facility]: [address] RL: 460 End of report. Additional Notes: Diagnosis/Impression as of 06/12/232 Pelvic pain Right ovarian cyst Intramural leiomyoma of uterus - (Uterine Fibroid) Endometrial hyperplasia Chronic anemia Medical Decision Making Mini Zhu is a 32 year old female whopresents to the ED with pelvic pain Problems Addressed: Chronic anemia: chronic illness or injury Endometrial hyperplasia: chronic illness or injury Details: Will need 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 follow-up Pt appropriately referred to OB-ENVIRONMENTAL INTERN Intramural leiomyoma of uterus: chronic illness or injury Details: Will need 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 follow-up Right ovarian cyst: chronic illness [...] Aysha Chandra MD Specialty: OG-OBSTETRICS & GYNECOLOGY [facility] [address] [place] [address] DR. Lechuga [facility] [id number] Selene Parra MD 06/12/232 T [facility] [id number] 04:02:21 Pt given printed and verbal discharge [...] steady gait, in no apparent distress. [facility]2023-08-14 01:27:07 Pt vomited approx 200ml of water and bile. No blood noted. [facility]2023-08-14 00:35:04 Pt arrived ambulatory with complaints of one episode of vomiting blood. Pt reports she became nauseated and at first threw up bile but then threw up dark red blood. Pt denies dark stools or excessiveNSAID use. Pt has been having intermittent abdominal pain for a week. Hx: Migraines, Bipolar, Anemia [facility]
[2025-07-10] MEDS ORDERED: ACETAMINOPHEN 500 MG TAB ONE (02:16)
--- NOTE | 2025-07-10 03:36 | EDPHYS ---
Physician Documentation [facility] Renny Name: Judith Tobar Age: 34 yrs Sex: Female : 1990 Arrival Date: 07/10/2025 Time: 01:50 Bed 15 Private MD: ED Physician Peter Marie HPI: 07/10 02:21 This 34 yrs old Female presents to ER via Ambulatory with complaints of Low Back Pain, sp3 Fall Injury. 02:21 34-year-old female with history of anxiety, bipolar disease, esophagitis presents with sp3 mechanical fall after slipping in the bathroom and ending on her lower back. Incident occurred proximately 1 hour prior to arrival. She took 800 mg of ibuprofen at home prior to arrival but states that it still hurts. She also states that she feels like her muscles are spasming. Review of systems negative for headache, head injury, loss of consciousness, neck pain, chest pain, shortness of breath, abdominal pain, nausea, vomiting, diarrhea, extremity pain, syncope, medical prodrome prior to the event, or any other signs or symptoms on ROS at this time.. Historical: - Allergies: 02:06 BuSpar; ha1 02:06 GABAPENTIN; ha1 02:06 Imitrex; ha1 - PMHx: 02:06 Anemia; Anxiety; Bipolar disorder; Esophagitis (Unknown); gastritis (Unknown); ha1 insommnia; - PSHx: 02:06 breast surgery due to mastitis; tubal; ha1 - Immunization history:: Adult Immunizations up to date. - Infectious Disease History:: Denies. - Social history:: Smoking status: Reported history of juuling and/or vaping. ROS: 02:37 Constitutional: Negative for fever, chills, and weight loss, Eyes: Negative for injury, sp3 pain, redness, and discharge, ENT: Negative for injury, pain, and discharge, Neck: Negative for injury, pain, and swelling, Cardiovascular: Negative for chest pain, palpitations, and edema, Respiratory: Negative for shortness of breath, cough, wheezing, and pleuritic chest pain, Abdomen/GI: Negative for abdominal pain, nausea, vomiting, diarrhea, and constipation, MS/Extremity: Negative for injury and deformity, Skin: Negative for injury, rash, and discoloration, Neuro: Negative for headache, weakness, numbness, tingling, and seizure, Psych: Negative for depression, anxiety, suicide ideation, homicidal ideation, and hallucinations, Allergy/Immunology: Negative for hives, rash, and allergies, Endocrine: Negative for neck swelling, polydipsia, polyuria, polyphagia, and marked weight changes, Hematologic/Lymphatic: Negative for swollen nodes, abnormal bleeding, and unusual bruising, 02:37 All other systems are negative, Exam: 02:37 Constitutional: This is a well developed, well nourished patient who is awake, alert, sp3 and in no acute distress. Head/Face: Normocephalic, atraumatic. Eyes: Pupils equal round and reactive to light, extra-ocular motions intact. Lids and lashes normal. Conjunctiva and sclera are non-icteric and not injected. Cornea within normal limits. Periorbital areas with no swelling, redness, or edema. Neck: Trachea midline, no thyromegaly or masses palpated, and no cervical lymphadenopathy. Supple, full range of motion without nuchal rigidity, or vertebral point tenderness. No Meningismus. Chest/axilla: Normal chest wall appearance and motion. Nontender with no deformity. No lesions are appreciated. Cardiovascular: Regular rate and rhythm with a normal S1 and S2. No gallops, murmurs, or rubs. Normal PMI, no JVD. No pulse deficits. Respiratory: Lungs have equal breath sounds bilaterally, clear to auscultation and percussion. No rales, rhonchi or wheezes noted. No increased work of breathing, no retractions or nasal flaring. Abdomen/GI: Soft, non-tender, with normal bowel sounds. No distension or tympany. No guarding or rebound. No evidence of tenderness throughout. Skin: Warm, dry with normal turgor. Normal color with no rashes, no lesions, and no evidence of cellulitis. MS/ Extremity: Pulses equal, no cyanosis. Neurovascular intact. Full, normal range of motion. Neuro: Awake and alert, GCS 15, oriented to person, place, time, and situation. Cranial nerves II-XII grossly intact. Motor strength 5/5 in all extremities. Sensory grossly intact. Cerebellar exam normal. Normal gait. 02:38 Back: Diffuse pain to palpation in the lower back including the musculature. Mild sp3 spasm noted. No midline tenderness or step-offs., Vital Signs: 01:58 BP 123 / 91; Pulse 91; Resp 18 S; Temp 97.6; Pulse Ox 99% on R/A; Weight 81.19 kg; ha1 Height 5 ft. 2 in. ; Pain 10/10; 03:34 BP 117 / 69; Pulse 87; Resp 17; Pulse Ox 100% on R/A; al5 01:58 Body Mass Index 32.74 (81.19 kg, 157.48 cm) ha1 01:58 Pain Scale: Adult ha1 MDM: 02:08 Medical Screening Exam initiated sp3 02:38 Data reviewed: vital signs, nurses notes, radiologic studies. ED course: 34-year-old sp3 female with mechanical fall with injury to the lower back. Differential diagnosis includes lumbosacral contusion, lumbosacral strain, fracture versus other. Will obtain x-rays and if negative discharge patient home on p.o. tramadol.. 03:35 ED course: Lumbosacral x-ray is negative on my read. Will safely discharge patient home sp3 at this time.. 07/10 02:14 Order name: Lumbar Spine (3 Views) XRAY sp3 Administered Medications: 02:25 Drug: Acetaminophen PO 1000 mg PO once Route: PO; al5 03:33 Follow up: Response: No adverse reaction; No change in condition; pain is tolerable but al5 still there and nagging Disposition Summary: 07/10/25 03:36 Discharge Ordered Notes: Location: Home sp3 Condition: Stable sp3 Diagnosis - Lumbosacral strain and contusion sp3 Followup: sp3 - With: Private Physician - When: Upon discharge from the Emergency Department - Reason: Continuance of care Discharge Instructions: - Discharge Summary Sheet sp3 - Lumbar Strain sp3 Forms: - Medication Reconciliation Form sp3 - Antibiotic Education sp3 - Prescription Opioid Use sp3 - Patient Portal Instructions sp3 - Leadership Thank You Letter sp3 Prescriptions: - Diclofenac Sodium 75 mg Oral Tablet Sustained Release - take 1 tablet ORAL route 2 times per day; 30 tablet; Refills: 0, Product sp3 Selection Permitted - Tramadol 50 mg Oral Tablet - take 1 tablet ORAL route every 8 hours as needed; 12 tablet; Refills: 0, sp3 Product Selection Permitted Signatures: Dispatcher [employer] EDMS Peter aMrie MD MD sp3 Asia Soto RN RN ha1 Ashly Youssef, RN RN al5
--- NOTE | 2025-07-10 03:36 | ER ---
Nurse's Notes [facility] Tori Name: Judith Tobar Age: 34 yrs Sex: Female : 1990 Arrival Date: 07/10/2025 Time: 01:50 Bed 15 Private MD: Diagnosis: Lumbosacral strain and contusion Presentation: 07/10 01:58 Chief complaint: Patient states: SLIP AND FELL . BACK PAIN. ha1 01:58 Coronavirus screen: Client denies travel out of the [place] in the last 14 days. Ebola ha1 Screen: No symptoms or risks identified at this time. Initial Sepsis Screen: Does the patient meet any 2 criteria? No. Patient's initial sepsis screen is negative. Does the patient have a suspected source of infection? No. Patient's initial sepsis screen is negative. Risk Assessment: Do you want to hurt yourself or someone else? Patient reports no desire to harm self or others. Onset of symptoms was July 10, 2025. 01:58 Method Of Arrival: Ambulatory ha1 01:58 Acuity: SHABBIR 4 ha1 02:08 Care prior to arrival: None. al5 Triage Assessment: 01:58 General: Appears uncomfortable, Behavior is calm, cooperative. Pain: Complains of pain ha1 in back Pain currently is 10 out of 10 on a pain scale. Quality of pain is described as aching. Neuro: Level of Consciousness is awake, alert, obeys commands, Oriented to person, place, time, situation. Cardiovascular: Capillary refill < 3 seconds Patient's skin is warm and dry. Respiratory: Airway is patent Respiratory effort is even, unlabored, Respiratory pattern is regular, symmetrical. GI: No signs and/or symptoms were reported involving the gastrointestinal system. Abdomen is round non-distended, obese. : No signs and/or symptoms were reported regarding the genitourinary system. Derm: Skin is pink, warm \T\ dry. Musculoskeletal: Circulation, motion, and sensation intact. Range of motion: intact in all extremities, Reports pain in back. Historical: - Allergies: 02:06 BuSpar; ha1 02:06 GABAPENTIN; ha1 02:06 Imitrex; ha1 - PMHx: 02:06 Anemia; Anxiety; Bipolar disorder; Esophagitis (Unknown); gastritis (Unknown); ha1 insommnia; - PSHx: 02:06 breast surgery due to mastitis; tubal; ha1 - Immunization history:: Adult Immunizations up to date. - Infectious Disease History:: Denies. - Social history:: Smoking status: Reported history of juuling and/or vaping. Screenin:10 [facility] ED Fall Risk Assessment (Adult) History of falling in the last 3 months, al5 including since admission Yes- single mechanical fall (1 pt) Confusion or Disorientation No (0 pts) Intoxicated or Sedated No (0 pts) Impaired Gait No (0 pts) Mobility Assist Device Used No (0 pt) Altered Elimination No (0 pt) Score/Fall Risk Level 0 - 2 = Low Risk Oriented to surroundings, Maintained a safe environment, Hourly rounding (assess needs \T\ fall precautionary measures) done. Abuse screen: Denies threats or abuse. Denies injuries from another. Nutritional screening: No deficits noted. Tuberculosis screening: No symptoms or risk factors identified. 02:10 Abuse screen: Denies threats or abuse. Denies injuries from another. Nutritional ha1 screening: No deficits noted. Tuberculosis screening: No symptoms or risk factors identified. Assessment: 02:09 General: Appears in no apparent distress. uncomfortable, Behavior is calm, cooperative. al5 Pain: Complains of pain in back Pain currently is 10 out of 10 on a pain scale. Neuro: Level of Consciousness is awake, alert, obeys commands, Oriented to person, place, time, situation. Cardiovascular: Capillary refill < 3 seconds Patient's skin is warm and dry. Respiratory: Airway is patent Respiratory effort is even, unlabored, Respiratory pattern is regular, symmetrical. GI: No signs and/or symptoms were reported involving the gastrointestinal system. : No signs and/or symptoms were reported regarding the genitourinary system. EENT: No signs and/or symptoms were reported regarding the EENT system. Derm: Skin is intact, is healthy with good turgor, Skin is pink, warm \T\ dry. normal. Musculoskeletal: Circulation, motion, and sensation intact. Range of motion: intact in all extremities. 03:34 Reassessment: Patient appears in no apparent distress at this time. No changes from al5 previously documented assessment. Patient and/or family updated on plan of care and expected duration. Pain level reassessed. Patient is alert, oriented x 3, equal unlabored respirations, skin warm/dry/pink. Vital Signs: 01:58 BP 123 / 91; Pulse 91; Resp 18 S; Temp 97.6; Pulse Ox 99% on R/A; Weight 81.19 kg; ha1 Height 5 ft. 2 in. ; Pain 10/10; 03:34 BP 117 / 69; Pulse 87; Resp 17; Pulse Ox 100% on R/A; al5 01:58 Body Mass Index 32.74 (81.19 kg, 157.48 cm) ha1 01:58 Pain Scale: Adult ha1 ED Course: 01:53 Patient arrived in ED. gm2 01:56 Peter Marie MD is Attending Physician. sp3 02:05 Ashly Youssef, RN is Primary Nurse. al5 02:06 Triage completed. ha1 02:09 Arm band placed on right wrist. Patient placed in the treatment room, in view of staff al5 members, on pulse oximetry. 02:10 Patient has correct armband on for positive identification. Bed in low position. Call al5 light in reach. Side rails up X 1. Provided Education on: plan of care. 02:10 No provider procedures requiring assistance completed. al5 02:56 Lumbar Spine (3 Views) XRAY In Process Unspecified. EDMS 03:41 Patient did not have IV access during this emergency room visit. al5 Administered Medications: 02:25 Drug: Acetaminophen PO 1000 mg PO once Route: PO; al5 03:33 Follow up: Response: No adverse reaction; No change in condition; pain is tolerable but al5 still there and nagging Medication: 02:10 VIS not applicable for this client. al5 Outcome: 03:36 Discharge ordered by . sp3 03:41 Discharged to home ambulatory, with family, al5 03:41 Condition: good 03:41 Discharge instructions given to patient, Instructed on discharge instructions, follow up and referral plans. medication usage, Demonstrated understanding of instructions, follow-up care, medications, Prescriptions given X 2, 03:41 Patient left the ED. al5 Signatures: Dispatcher [employer] EDRI Peter Marie MD MD sp3 Asia Soto RN RN 1 Anahi Karimi 2 Ashly Youssef RN RN al5
[2025-07-10 03:58] VITALS: TEMP 97.6
[2025-07-10 03:59] VITALS: BP 117/69; O2SAT 100
--- NOTE | 2025-07-10 06:16 | RAD REPORT ---
EXAM DESCRIPTION: Lumbar Spine 3 Views [employer]: XR LUMBAR SPINE 2-3 VIEWS CLINICAL HISTORY: 34 years Female, fall / trauma COMPARISON: None. FINDINGS: 3 views of the lumbar spine. Normal lumbar lordosis. No acute fracture or vertebral body height loss. No subluxation. Intervertebral disc height is preserved. Visualized lower ribs and bony pelvis appear intact. IMPRESSION: No acute radiographic abnormality. Electronically signed by: Brianna Kaur MD 07/10/2025 05:20 AM CDT RP Due to temporary technical issues with the [employer] reporting system, reports are being samira d by the in-house radiologist without review as a courtesy to ensure prompt reporting the interpreting radiologist is fully responsible for the content of the report. Transcribed Date/Time: 07/10/2025 6:15 AM
== END 2025-07-10 03:41 | disposition home or self-care (01) ==
LOC: ER 01:50
DX: S39.012A Strain of muscle, fascia and tendon of lower back, initial encounter (principal); W01.0XXA Fall on same level from slipping, tripping and stumbling without subsequent striking against object, initial encounter
CPT/HCPCS: 72100; 99283

== ENCOUNTER 2025-07-15 20:57 | Emergency (ER) | payer SELFPAY ==
--- OUTSIDE RECORDS SUMMARY | 2025-07-15 21:09 | XMS REPORT | Continuity of Care Document ---
Author Name Unknown Address [address] [facility] [address] [place] [address] [facility] [place] Address [address] [facility] [address] [place] [address] Care Team Providers Care Military Logistics Specialist Name Role Phone Liratj CURRAN, Ashley Primary Care Physician Nurse, Dat Rmchp Rgv Cprit Obgyn Attending Clini zenobia Unavailable Matteo LEONARD, Lesa Frederick Attending Clinician HERMILO RICKS Attending Clinician Unavailable HERMILO RICKS Attending Clinician Unavailable DONI MARIE Attending Clinician Unavailable DONI MARIE Attending Clinician Unavailable Pgy4 Attending Clinician Unavailable Kaye House MD Attending Clinician [phone] PATRICE HOLLAND Attending Clinician Unavailab Patrice Nevarez MD Attending Clinician + [phone] SELENE PARRA Attending Clinician Unavailable SELENE PARRA Attending Clinician Unavailable Selene Parra MD Attending Clinician [phone] Hermilo Ricks DO Attending Clinician +[phone] Doni Marie MD Attending Clinician +[phone] GABY TERRY Attending Clinician Unavailab shanna Terry ENGINE REPAIR SUPERVISOR, Gaby Attending Clinician [phone] CHRISTY RG Attending Clinician Unavailable CHRISTY RG Attending Clinician Unavailable Landy CLEVELAND, Christy Matthews Attending Clinician +- [phone] CHAYO SRIVASTAVA Attending Clinician Unavailab Chayo Davis DO Attending Clinician [phone] Kavita OJEDA Attending Clinician Unavailable Rusty PAC, Kavita Rowe Attending Clinician [phone] Rama GUZMANP, Danie Ackerman Attending Clinician [phone] MEMO RESENDIZ Attending Clinician Unavailable Memo Resendiz MD Attending Clinician [phone] DANII ARRIAGA Attending Clinician Unavailable Rose Hoff MD Attending Clinician [phone] Danii Ferrer Attending Clinician [phone] MICHELLE TERRY Attending Clinician UnavailMichelle Evans MD Attending Clinician + [phone] RAVEN LIEBERMAN Attending Clinician Unavailable Liebermanmolly OSORIO, Raven S Attending Clinician [phone] Doctor Unassigned, Olivia Attending Clinician U SURAJ Blanca Attending Clinician UnavailSuraj Kee MD Attending Clinician + [phone] CAT RUTLEDGE Attending Clinician Unavailable LISA TRAN Attending Clinician Unavailable Lisa Cruz Attending Clinician + [phone] CL GATES Attending Clinician Unavailable ROCHELLE GOLD [...] Date Source [facility] [id number] 2023 00:00:00 Problems Condition Name Condition Details Condition Category Status Onset Date Resolution Date Last Treatment Date Treating Clinician Comments Source Acute nonintract able headache, unspecifie d headache type Acute nonintract able headache, unspecifie d headache type Disease Active 3- 00:00: 00 [facility] Other migraine without status migrainosu s, not intractabl e Other migraine without status migrainosu s, not intractabl e Disease Active 3 00:00: 00 [facility] Lower abdominal pain Lower abdominal pain Disease Active 1- 00:00: 00 [facility] Ureterolit hiasis Ureterolit hiasis Disease Active 8- 00:00: 00 [facility] No known active problems No known active problems Disease [facility] Allergies, Adverse Reactions, Alerts Allergy Name Allergy Type Status Severity Reaction(s) Onset Date Inactive Date Treating Clinician Comments Source SUMATRIP FRANKS DRUG INGREDI Active Palpitations 04-14 00:00: 00 [facility] Sumatrip franks Propensi ty to adverse reaction s Active Palpitations 04-14 00:00: 00 Rapid heart rate [facility] BUSPIRON E DRUG INGREDI Active Other-Cmnt 12-17 00:00: 00 [facility] Buspiron e Propensi ty to adverse reaction s Active Other - See comments 12-17 00:00: 00 Gives SI thoughts [facility] GABAPENT IN DRUG INGREDI Active Other-Cmnt 2022-10 0 00:00: 00 [facility] Gabapent in Propensi ty to adverse reaction s Active Other - See comments 2022-10 0 00:00: 00 Manic episodes [facility] NO KNOWN ALLERGIE S Drug Class Active [facility] Social History Social Habit Start Date Stop Date Quantity Comments Source ASSERTION Possible [facility] Gender identity [facility] Sexual orientation [facility] History of Social function 2025-02-04 00:00:00 2025-02-04 00:00:00 [facility] Exposure to SARS-CoV-2 (event) 2023-02-24 00:00:00 2023-03-06 22:59:00 Not sure [facility] Sex assigned at 1990 00:00:00 1990 00:00:00 [facility] Smoking Status Start Date Stop Date Source Tobacco smoking consumption unknown [facility] Medications Ordered Medication Name Filled Medication Name Start Date Stop Date Current Medication? Ordering Clinician Indication Dosage Frequency Signature (SIG) Comments Components Source iopamidol (ISOVUE 370-500 mL) injection 85 mL 04-14 15:45: 00 04-14 15:45 :00 No [id number] 85mL 85 mL, Intravenou s, ONCE, 1 dose, On Sun04/14/25 at 1045, Routine [facility] maalox/diph enhydrAMINE :lidocaine2 %viscous 1:1:1: suspension (COMPOUNDED ) 04-14 13:30: 00 04-14 13:45 :00 No 15mL 15 mL, Oral, ONCE, 1 dose, On Sun04/14/25 at 0830, Routine [facility] dicyclomine 20 mg tablet 04-14 00:00: 00 Yes [id number] 20mg Take 1 tablet by mouth 4 times daily. [facility] NaCl 0.9% (NS) bolus infusion 1,000 mL 03-09 06:30: 00 03-09 07:43 :00 No 1000mL at 999 mL/hr, 1,000 mL, IV Infusion, ONCE, 1 dose, On Sun03/09/25 at 0130, STAT [facility] methylpredn isolone sod succ (SOLU-MEDRO L) injection 125 mg 03-09 06:30: 00 03-09 05:37 :00 No 125mg 125 mg, Slow IV Push, ONCE NOW, 1 dose, On Sun03/09/25 at 0130, NICOLASA [facility] magnesium sulfate in D5W 1 gram/100 mL RTU IV Piggyback 1 g 03-09 06:30: 00 03-09 06:39 :00 No 1g 1 g, IV Piggyback, ONCE, 1 dose, On 03/09/25 at 0130, Administer over 60 Minutes, 100 mL [facility] ondansetron (ZOFRAN (PF)) injection 4 mg 03-09 04:00: 00 03-09 03:15 :00 No 4mg 4 mg, Slow IV Push, ONCE, 1 dose, On Sun03/08/25 at 2300, 2 mL [facility] ketorolac (TORADOL) injection 30 mg 03-09 04:00: 00 03-09 03:16 :00 No 30mg 30 mg, Slow IV Push, ONCE, 1 dose, On Sun03/08/25 at 2300, NICOLASA [facility] caffeine tablet 200 mg caffeine tablet 200 mg 03-09 03:00: 00 03-09 03:31 :00 No 200mg 200 mg, Oral, Once, 1 dose, On Sun03/08/25 at 2200, NICOLASA [facility] diphenhydrA MINE (BENADRYL) injection 25 mg 03-09 03:00: 00 03-09 03:16 :00 No 25mg 25 mg, Slow IV Push, ONCE, 1 dose, On Sun03/08/25 at 2200, STAT [facility] SUMAtriptan 50 mg tablet 03-09 00:00: 00 Yes [id number] 50mg Take 1 tablet by mouth 3 times daily as needed for Migraine. [facility] Lidocaine (LIDOCARE) 4 % patch 1 Patch 01-27 18:30: 00 01-28 06:29 :00 No 1{patch } 1 Patch, Topical, Administer over 12 Hours, ONCE, 1 dose, On Sun01/27/25 at 1330, Routine [facility] ketorolac (TORADOL) injection 30 mg 01-27 18:15: 00 01-27 17:57 :00 No 30mg 30 mg, Slow IV Push, ONCE, 1 dose, On Sun01/27/25 at 1315, Routine [facility] methocarbam oL (ROBAXIN) tablet 1,000 mg 01-27 17:45: 00 01-27 17:52 :00 No 1000mg 1,000 mg, Oral, ONCE, 1 dose, On Sun01/27/25 at 1245, NICOLASA [facility] diphenhydrA MINE (BENADRYL) injection 12.5 mg 01-27 17:45: 00 01-27 17:55 :00 No 12.5mg 12.5 mg, Slow IV Push, ONCE, 1 dose, On Sun01/27/25 at 1245, STAT [facility] metoclopram farzana HCl (REGLAN) injection 10 mg 01-27 17:45: 00 01-27 17:57 :00 No 10mg 10 mg, Slow IV Push, ONCE, 1 dose, On Sun01/27/25 at 1245, NICOLASA [facility] methocarbam oL 500 mg tablet 01-27 00:00: 00 02-04 00:00 :00 No [id number] 4 500mg Take 1 tablet by mouth 4 (four) times daily for 10 days. [facility] methylPREDN ISolone 4 mg tablets 01-27 00:00: 00 02-04 00:00 :00 No [id number] 4 Take by mouth SEE-INSTRU CTIONS. follow package directions [facility] lidocaine 5 % (700 mg/patch) patch 01-27 00:00: 00 02-04 00:00 :00 No [id number] 4 1{patch } Apply 1 Patch to area(s) in the morning for 30 doses. [facility] iopamidol (ISOVUE 370-500 mL) injection 85 mL 01-17 09:30: 00 01-17 09:30 :00 No [id number] 85mL 85 mL, Intravenou s, ONCE, 1 dose, On 01/17/25 at 0430, Routine [facility] ketorolac (TORADOL) injection 30 mg 01-17 09:15: 01-17 08:15 :00 No 30mg 30 mg, Slow IV Push, ONCE, 1 dose, On Sun01/17/25 at 0415, Routine [facility] metoclopram farzana HCl (REGLAN) injection 10 mg 01-17 08:15: 01-17 08:16 :00 No 10mg 10 mg, Slow IV Push, ONCE, 1 dose, On 01/17/25 at 0315, NICOLASA [facility] diphenhydrA MINE (BENADRYL) injection 25 mg 01-17 08:15: 01-17 08:16 :00 No 25mg 25 mg, Slow IV Push, ONCE, 1 dose, On 01/17/25 at 031, STAT [facility] Nitrofurant oin&Nit. Macrocryst (MACROBID) 100 mg capsule 01-17 00:00: 00 02-04 00:00 :00 No [id number] 100mg Take 1 capsule by mouth in the morning and 1 capsule in the evening. [facility] iopamidol (ISOVUE 370-500 mL) injection 85 mL 01-05 13:15: 01-05 13:15 :00 No [id number] 85mL 85 mL, Intravenou s, ONCE, 1 dose, On Sun01/05/25 at 0815, Routine [facility] NaCl 0.9% (NS) bolus infusion 1,000 mL 01-05 12:00: 01-05 14:39 :00 No 1000mL at 999 mL/hr, 1,000 mL, IV Piggyback, ONCE, 1 dose, On Sun01/05/25 at 0700, STAT [facility] NaCl 0.9% (NS) bolus infusion 1,000 mL 01-05 11:15: 00 01-05 10:56 :00 No 1000mL at 999 mL/hr, 1,000 mL, IV Piggyback, ONCE, 1 dose, On Sun01/05/25 at 0615, STAT [facility] ondansetron (ZOFRAN (PF)) injection 4 mg 01-05 11:00: 00 01-05 10:58 :00 No 4mg 4 mg, Slow IV Push, ONCE, 1 dose, On Sun01/05/25 at 0600, Administer over 2-5 Minutes, 2 mL [facility] butalbital- acetaminoph en-caff (ESGIC) 50-325-40 mg tablet 1 tablet 12-18 06:00: 00 12-18 06:24 :00 No 1{tbl} 1 tablet, Oral, ONCE, 1 dose, On Sun12/18/24 at 0000, NICOLASA [facility] diphenhydrA MINE (BENADRYL) injection 25 mg 12-18 06:00: 00 12-18 06:24 :00 No 25mg 25 mg, Slow IV Push, ONCE, 1 dose, On Ashley 12/18/24 at 0000, [facility] metoclopram farzana HCl (REGLAN) injection 10 mg 12-18 06:00: 00 12-18 06:24 :00 No 10mg 10 mg, Slow IV Push, ONCE, 1 dose, On Ashley 12/18/24 at 0000, [facility] metoclopram farzana 10 mg tablet 12-18 [...] 1 dose, On Sun11/18/24 at 2330, Routine [facility] amoxicillin (TRIMOX) capsule 500 mg 11-19 04:30: 00 11-19 04:43 :00 No 500mg 500 mg, Oral, ONCE, 1 dose, On Sun11/18/24 at 2230, NICOLASA, Reason for Anti-Infec tive: Documented Infection, Documented Infection Site: HEENT, Duration of Therapy: Once (ED) [facility] ibuprofen 800 mg tablet 2- 00:00: 00 02-04 00:00 :00 No [id number] 800mg Take 1 tablet by mouth every 8 (eight) hours as needed for Alternate with [place] for pain scale 1-3. [facility] amoxicillin 500 mg capsule 11-18 00:00: 00 02-04 00:00 :00 No [id number] 500mg Take 1 capsule by mouth in the morning and 1 capsule at noon and 1 capsule in the evening. [facility] Bromfed DM 2 mg-30 mg-10 mg/5 mL oral syrup 1-08 00:00: 00 Yes 10mg/5 mL Darryl Waggoner metoclopram farzana HCl (REGLAN) injection 10 mg 2023-10 13:15: 00 07-25 13:23 :00 No 10mg 10 mg, Slow IV Push, ONCE, 1 dose, On Sun07/25/24 at 0815, NICOLASA [facility] pantoprazol e 40 mg EC tablet 2023-10 00:00: 00 Yes [id number] 40mg Take 1 tablet by mouth in the morning. [facility] metoclopram farzana HCl 10 mg tablet 2023-10 00:00: 00 02-04 00:00 :00 No [id number] 10mg Take 1 tablet by mouth every 6 (six) hours. [facility] iopamidol (ISOVUE 370-500 mL) injection 85 mL 9-20 09:45: 00 07-04 09:45 :00 No [id number] 85mL 85 mL, Intravenou s, ONCE, 1 dose, On Sun07/04/24 at 0445, Routine [facility] ketorolac (TORADOL) injection 30 mg 07-04 09:15: 00 07-04 08:27 :00 No 30mg 30 mg, Slow IV Push, ONCE, 1 dose, On Sun07/04/24 at 0415, Routine [facility] Lidocaine Viscous 2 % [...] 1 dose, On Sun03/12/24 at 0545, NICOLASA [facility] iopamidol (ISOVUE 370-500 mL) injection 100 mL 03-12 10:15: 00 03-12 10:15 :00 No [id number] 100mL 100 mL, Intravenou s, ONCE, 1 dose, On Sun03/12/24 at 0515, Routine [facility] ketorolac (TORADOL) injection 30 mg 03-12 10:00: 00 03-12 09:01 :00 No 30mg 30 mg, Slow IV Push, ONCE, 1 dose, On Sun03/12/24 at 0500, Routine [facility] NaCl 0.9% (NS) IV infusion 1,000 mL 03-12 09:45: 00 03-12 10:39 :00 No 1000mL at 999 mL/hr, Intravenou s, ONCE, 1 dose, On Sun03/12/24 at 0445, Routine [facility] ondansetron (ZOFRAN (PF)) injection 4 mg 03-12 09:00: 00 03-12 09:01 :00 No 4mg 4 mg, Slow IV Push, ONCE, 1 dose, On Sun03/12/24 at 0400, NICOLASA [facility] butalbital- acetaminoph en-caff 50-325-40 mg tablet 03-12 00:00: 00 02-04 00:00 :00 No [id number] 1{tbl} Take 1 tablet by mouth every 6 (six) hours as needed (Headache) . [facility] dicyclomine 20 mg tablet 03-12 00:00: 00 02-04 00:00 :00 No [id number] 20mg Take 1 tablet by mouth every 6 (six) hours as needed for Abdominal pain. [facility] metoclopram farzana HCl 10 mg tablet 03-12 00:00: 00 07-25 00:00 :00 No [id number] 10mg Take 1 tablet by mouth every 6 (six) hours. [facility] ondansetron HCl 4 mg tablet 03-06 00:00: 00 Yes 1mg Darryl Waggoner iopamidol (ISOVUE 370-500 mL) injection 85 mL 02-02 11:00: 00 02-02 11:00 :00 No [id number] 85mL 85 mL, Intravenou s, ONCE, 1 dose, On Sun02/03/24 at 0600, Routine [facility] FENTanyl PF (SUBLIMAZE (PF)) injection 50 mcg 02-02 10:30: 00 02-02 09:52 :00 No 50ug 50 mcg, Slow IV Push, ONCE, 1 dose, On 4/21/24 at 0530, Routine [facility] metoclopram farzana HCl (REGLAN) injection 10 mg 02-02 09:30: 00 02-02 09:52 :00 No 10mg 10 mg, Slow IV Push, ONCE, 1 dose, On Sun02/03/24 at 0430, NICOLASA [facility] pantoprazol e (PROTONIX) injection 40 mg 02-02 09:30: 00 02-02 09:53 :00 No 40mg 40 mg, Slow IV Push, ONCE, 1 dose, On Sun02/03/24 at 0430 [facility] dicyclomine 20 mg tablet 02-02 00:00: 00 02-04 00:00 :00 No [id number] 20mg Take 1 tablet by mouth every 6 (six) hours as needed for Abdominal pain. [facility] metoclopram farzana HCl 10 mg tablet 02-02 00:00: 00 07-25 00:00 :00 No [id number] 10mg Take 1 tablet by mouth every 6 (six) hours. [facility] pantoprazol e (PROTONIX) 40 mg EC tablet 02-02 00:00: 00 07-25 00:00 :00 No [id number] 40mg Take 1 tablet by mouth in the morning. [facility] loratadine (CLARITIN) tablet 10 mg 01-01 06:30: 00 01-01 18:29 :00 No 10mg 10 mg, Oral, ONCE, 1 dose, On Sun01/02/24 at 0130, NICOLASA [facility] azithromyci n (ZITHROMAX) tablet 500 mg 01-01 05:45: 00 01-01 05:39 :00 No 500mg 500 mg, Oral, ONCE, 1 dose, On Sun01/02/24 at 0045, NICOLASA
Re ason for Anti-Infec tive: Documented Infection< br>Documen zoila Infection Site: HEENT
D uration of Therapy: Once (ED) [facility] azithromyci n (ZITHROMAX Z-RAMESH) 250 mg tablet 01-01 00:00: 00 02-04 00:00 :00 No [id number] 500mg Take 2 tablets by mouth SEE-INSTRU CTIONS. Take 500 mg day 1, then 250 mg days 2 to 5. [facility] loratadine- pseudoephed rine (CLARITIN-D 24 HOUR) 10-240 mg per 24 hr tablet 01-01 00:00: 00 02-04 00:00 :00 No [id number] 1{tbl} Take 1 tablet by mouth in the morning. [facility] dextrometho rphan-guaif enesin 10-100 mg/5 mL solution 01-01 00:00: 00 02-04 00:00 :00 No [id number] 10mL Take 10 mL by mouth every 6 (six) hours as needed for Cough. [facility] butalbital- acetaminoph en-caff (ESGIC) 50-325-40 mg tablet 1 tablet 12-25 09:15: 00 12-25 09:09 :00 No 1{tbl} 1 tablet, Oral, ONCE, 1 dose, On Sun12/26/23 at 0415, NICOLASA [facility] butalbital- acetaminoph en-caff 50-325-40 mg tablet 12-25 00:00: 00 02-04 00:00 :00 No [id number] 1{tbl} Take 1 tablet by mouth every 6 (six) hours as needed (Headache) . [facility] ketorolac (TORADOL) injection 30 mg 11-20 17:15: 00 11-20 16:28 :00 No 30mg 30 mg, Slow IV Push, ONCE, 1 dose, On Sun11/20/23 at 1115, NICOLASA [facility] iopamidol (ISOVUE 370-500 mL) injection 80 mL 11-20 14:30: 00 11-20 14:45 :00 No [id number] 80mL 80 mL, Intravenou s, ONCE, 1 dose, On Sun11/20/23 at 0845, Routine [facility] NaCl 0.9% (NS) bolus infusion 1,000 mL 11-20 14:15: 00 11-20 16:26 :00 No 1000mL at 999 mL/hr, 1,000 mL, IV Infusion, ONCE, 1 dose, On Sun11/20/23 at 0815, STAT [facility] ondansetron 4 mg disintegrat ing tablet 11-20 00:00: 00 Yes [id number] 4mg Take 1 tablet by mouth every 4 (four) hours as needed for Nausea and Vomiting (N/V). [facility] cephALEXin (KEFLEX) 500 mg capsule 11-20 00:00: 00 02-04 00:00 :00 No [id number] 500mg Take 1 capsule by mouth in the morning and 1 capsule at noon and 1 capsule in the evening. [facility] naproxen 500 mg tablet 11-20 00:00: 00 12-01 05:59 :00 No [id number] 500mg Take 1 tablet by mouth in the morning and 1 tablet in the evening. Take with meals. Do all this for 10 days. [facility] maalox:diph enhydrAMINE :lidocaine 2 % viscous 1:1:1 ([facility]) oral suspension 15 mL 11-12 07:00: 00 11-12 06:55 :00 No 15mL 15 mL, Oral, ONCE, 1 dose, On Sun11/12/23 at 0100, Routine [facility] ondansetron (ZOFRAN-ODT ) disintegrat ing tablet 4 mg 11-12 07:00: 00 11-12 06:16 :00 No 4mg 4 mg, Oral, ONCE, 1 dose, On Sun11/12/23 at 0100, Routine [facility] benzonatate 200 mg capsule 10-27 00:00: 00 Yes [id number] 200mg Take 1 capsule by mouth 3 (three) times daily as needed for Cough for up to 20 doses. [facility] ibuprofen 600 mg tablet 10-27 00:00: 00 Yes [id number] 600mg Take 1 tablet by mouth every 6 (six) hours as needed for Pain (scale 4-6). [facility] ondansetron 4 mg disintegrat ing tablet 10-27 00:00: 00 11-20 00:00 :00 No [id number] 4mg Take 1 tablet by mouth every 8 (eight) hours as needed for Nausea and Vomiting (N/V). [facility] lactulose (CEPHULAC) solution 30 mL 2022-10 01:45: 00 09-09 02:36 :00 No 30mL 30 mL, Oral, ONCE, 1 dose, On 09/08/23 at 1945, NICOLASA [facility] dexamethaso ne (DECADRON PHOSPHATE) injection 10 mg 2022-10 01:30: 00 09-09 02:40 :00 No 10mg 10 mg, Oral, ONCE, 1 dose, On 09/08/23 at 1930, Routine [facility] ketorolac (TORADOL) injection 30 mg 2022-10 01:30: 00 09-09 02:40 :00 No 30mg 30 mg, Intramuscu lar, ONCE, 1 dose, On 09/08/23 at 1930, Routine [facility] ketorolac 10 mg tablet 2022-10 00:00: 00 11-12 00:00 :00 No [id number] 10mg Take 1 tablet by mouth every 6 (six) hours as needed for Pain (scale 7-10). [facility] glycerin/mi neral oil, AGLO ENEMA, Enem 2022-10 00:00: 00 11-12 00:00 :00 No [id number] 225mL Insert 225 mL into rectum as needed for Constipati on. [facility] cefdinir 300 mg capsule 2022-10 00:00: 00 09-16 05:59 :00 No [id number] 300mg Take 1 capsule by mouth every 12 (twelve) hours for 7 days. [facility] lactulose 10 gram/15 mL solution 2022-10 00:00: 00 09-14 05:59 :00 No [id number] 15mL Take 15 mL by mouth in the morning for 5 days. [facility] HYDROcodone -acetaminop hen (NORCO 5) 5-325 mg tablet 1 tablet 2022-10 13:15: 00 09-07 13:33 :00 No 1{tbl} 1 tablet, Oral, ONCE, 1 dose, On Sun09/07/23 at 0715, [facility] diazePAM (VALIUM) tablet 5 mg 2022-10 13:15: 09-07 13:33 :00 No 5mg 5 mg, Oral, ONCE, 1 dose, On Sun09/07/23 at 0715, [facility] dexamethaso ne sod phos PF injection 10 mg 2022-10 13:15: 00 09-07 13:33 :00 No 10mg 10 mg, Oral, ONCE, 1 dose, On Sun09/07/23 at 0715, 1 mL [facility] methocarbam oL 750 mg tablet 2022-10 00:00: 00 11-12 00:00 :00 No [id number] 750mg Take 1 tablet by mouth every 6 (six) hours as needed for Pain (scale 1-3). [facility] ondansetron (ZOFRAN (PF)) injection 4 mg 2022-10 02:00: 00 09-04 02:30 :00 No 4mg 4 mg, Slow IV Push, ONCE, 1 dose, On Sun09/03/23 at 1999, [facility] meclizine (TRAVEL-EAS E (MECLIZINE) ) tablet 50 mg 2022-10 02:00: 00 09-04 02:30 :00 No 50mg 50 mg, Oral, ONCE, 1 dose, On Sun09/03/23 at 1999, [facility] ondansetron (ZOFRAN) 4 mg tablet 2022-10 00:00: 00 Yes [id number] 4mg Take 1 tablet by mouth every 8 (eight) hours as needed for Nausea and Vomiting (N/V). [facility] meclizine 25 mg tablet 2022-10 00:00: 00 11-12 00:00 :00 No [id number] 25mg Take 1 tablet by mouth every 6 (six) hours. [facility] ondansetron (ZOFRAN-ODT ) disintegrat ing tablet 4 mg 2022-10 08:30: 00 07-26 07:45 :00 No 4mg 4 mg, Oral, ONCE, 1 dose, On Ashley 07/26/23 at 0330, Routine [facility] proMETHazin e 25 mg tablet 2022-10 00:00: 00 09-03 00:00 :00 No [id number] 12.5mg Take 0.5 tablets by mouth every 6 (six) hours as needed for Nausea and Vomiting (N/V). [facility] loratadine 10 mg tablet 2022-10 00:00: 00 02-04 00:00 :00 No [id number] 10mg Take 1 tablet by mouth at bedtime as needed for Allergies or Runny nose. [facility] albuterol 90 mcg/actuati on inhaler 2022-10 00:00: 00 02-04 00:00 :00 No [id number] 2{puff} Inhale 2 Puffs every 4 (four) hours as needed for Wheezing or Shortness of Breath. [facility] benzonatate 200 mg capsule 2022-10 00:00: 00 11-12 00:00 :00 No [id number] 200mg Take 1 capsule by mouth 3 (three) times daily as needed for Cough. [facility] fluticasone propionate 50 mcg/actuati on nasal spray 2022-10 00:00: 00 11-12 00:00 :00 No [id number] 2{spray } Use 2 Sprays in each nostril in the morning. [facility] predniSONE 20 mg tablet 2022-10 0-11 00:00: 00 07-31 04:59 :00 No [id number] 40mg Take 2 tablets by mouth in the morning for 5 days. [facility] TAKE 1 TABLET DAILY. 2022-10 00:00: 00 01-30 00:00 :00 No 10 Dar[facility] Waggoner ibuprofen 800 mg tablet 07-12 00:00: 00 11-12 00:00 :00 No [id number] 800mg Take 1 tablet by mouth every 8 (eight) hours. [facility] methylPREDN ISolone sodium succinate (SOLU-MEDRO L) injection 125 mg 06-24 17:00: 00 06-24 11:35 :44 No 125mg 125 mg, Intramuscu lar, Q6H, First dose on Sun06/24/23 at 1200, Until Discontinu ed, Routine [facility] gabapentin 300 mg capsule 06-24 00:00: 00 11-12 00:00 :00 No [id number] 300mg Take 1 capsule by mouth in the morning and 1 capsule at noon and 1 capsule in the evening. [facility] codeine-gua ifenesin (ROBITUSSIN AC) 10-100 mg/5 mL oral solution 10 mL 06-18 06:15: 00 06-18 06:23 :00 No 10mL 10 mL, Oral, ONCE, 1 dose, On Sun06/18/23 at 0115, NICOLASA [facility] azithromyci n (ZITHROMAX) tablet 500 mg 06-18 06:15: 00 06-18 06:24 :00 No 500mg 500 mg, Oral, ONCE, 1 dose, On Sun06/18/23 at 0115, NICOLASA
Re ason for Anti-Infec tive: Documented Infection< br>Documen zoila Infection Site: Respirator y
Durat ion of Therapy: 7 days [facility] benzonatate 200 mg capsule 06-18 00:00: 00 11-12 00:00 :00 No [id number] 200mg Take 1 capsule by mouth 3 (three) times daily as needed for Cough. [facility] azithromyci n 250 mg tablet 06-18 00:00: 00 09-03 00:00 :00 No [id number] 250mg Take 1 tablet by mouth SEE-INSTRU CTIONS. Take 500 mg day 1, then 250 mg days 2 to 5. [facility] ondansetron 4 mg tablet 06-18 00:00: 00 09-03 00:00 :00 No [id number] 1 or 2 tablets every 8 hours as needed for nausea [facility] TAKE 1 TABLET BY [...] Site: Pelvic
Duration of therapy: 72 hours [facility] doxycycline hyclate (Vibramycin ) capsule 100 mg 06-12 07:45: 00 06-12 08:32 :00 No 100mg 100 mg, Oral, ONCE, 1 dose, On Sun06/12/23 at 0245, NICOLASA
Re ason for Anti-Infec tive: Documented Infection< br>Documen zoila Infection Site: Pelvic
Duration of Therapy: 14 days [facility] morpHINE (4 mg/mL) injection 4 mg 06-12 07:45: 00 06-12 08:32 :00 No 4mg 4 mg, Slow IV Push, ONCE, 1 dose, On Sun06/12/23 at 0245, STAT [facility] ketorolac (TORADOL) injection 30 mg 06-12 06:15: 00 06-12 05:10 :00 No 30mg 30 mg, Slow IV Push, ONCE, 1 dose, [facility]06/12/23 [facility] 0115[facility] 0.9% (NS) bolus infusion 1,000 mL 06-12 06:15: 06-12 06:56 :00 No 1000mL at 999 mL/hr, 1,000 mL, IV Infusion, ONCE, 1 dose, On Sun06/12/23 at 0115, STAT [facility] cefTRIAXone (ROCEPHIN) 1,000 mg in NaCl 0.9% (NS) 100 mL MINI-BAG 06-12 05:15: 06-12 06:56 :00 No 1000mg 1,000 mg, IV Piggyback, ONCE, 1 dose, On Sun06/12/23 at 0015, Administer over 30 Minutes, 100 mL
Reas on for Anti-Infec tive: Empiric Therapy for Suspected Infection< br>Empiric Therapy Site: Pelvic
Duration of therapy: 72 hours [facility] ondansetron (ZOFRAN (PF)) injection 4 mg 06-12 05:15: 06-12 05:10 :00 No 4mg 4 mg, Slow IV Push, ONCE, 1 dose, On Sun06/12/23 at 0015, [facility] ibuprofen 800 mg tablet 06-12 00:00: 00 07-12 00:00 :00 No [id number] 800mg Take 1 tablet by mouth every 8 (eight) hours as needed for Pain (scale 4-6). [facility] TAKE 1 TABLET TWICE DAILY. 05-31 00:00: 00 01-30 00:00 :00 No 100 Darryl Waggoner iopamidol (ISOVUE 370-500 mL) injection 85 mL 05-28 08:30: 00 05-28 08:30 :00 No [id number] 85mL 85 mL, Intravenou s, ONCE, 1 dose, On Sun05/28/23 at 0330, Routine [facility] NaCl 0.9% (NS) bolus infusion 1,000 mL 05-28 08:15: 00 05-28 08:52 :00 No 1000mL at 999 mL/hr, 1,000 mL, IV Infusion, ONCE, 1 dose, On Sun05/28/23 at 0315, STAT [facility] pantoprazol e (PROTONIX) 80 mg in NaCl 0.9% (NS) 20 mL syringe 05-28 08:00: 00 05-28 08:02 :00 No 80mg 80 mg, IV Push, ONCE, 1 dose, On Sun05/28/23 at 0300, Administer over 2 Minutes, 20 mL [facility] ondansetron (ZOFRAN (PF)) injection 4 mg 05-28 06:45: 00 05-28 06:36 :00 No 4mg 4 mg, Slow IV Push, ONCE, 1 dose, On Sun05/28/23 at 0145, NICOLASA [facility] ondansetron 4 mg disintegrat ing tablet 05-28 00:00: 00 09-03 00:00 :00 No [id number] 4mg Take 1 tablet by mouth every 8 (eight) hours as needed for Nausea and Vomiting (N/V). [facility] esomeprazol e (NEXIUM) 40 mg capsule 05-28 00:00: 00 06-12 04:59 :00 No [id number] 40mg Take 1 capsule by mouth daily with breakfast for 14 days. [facility] INSTILL 4 DROPS IN THE AFFECTED EAR(S) TWICE DAILY 7-10 00:00: 00 01-30 00:00 :00 No 301 Darryl Waggoner dexamethaso ne (DECADRON PHOSPHATE) injection 10 mg 03-07 05:00: 00 03-07 03:56 :00 No 10mg 10 mg, Oral, ONCE, 1 dose, On Sun03/07/23 at 0000, Routine [facility] levocetiriz ine 5 mg tablet 03-06 00:00: 00 09-03 00:00 :00 No [id number] 5mg Take 1 tablet by mouth every evening. [facility] butorphanol (STADOL) injection 1 mg 02-02 08:00: 00 02-02 07:18 :00 No 1mg 1 mg, IV Push, ONCE, 1 dose, On Sun02/02/23 at 0300, NICOLASA [facility] ketorolac (TORADOL) injection 30 mg 02-02 07:45: 00 02-02 06:42 :00 No 30mg 30 mg, Slow IV Push, ONCE, 1 dose, On Sun02/02/23 at 0245, Routine [facility] metoclopram farzana HCl (REGLAN) injection 10 mg 02-02 06:45: 00 02-02 06:41 :00 No 10mg 10 mg, Slow IV Push, ONCE, 1 dose, On Sun02/02/23 at 0145, NICOLASA [facility] diphenhydrA MINE (BENADRYL) injection 25 mg 02-02 06:45: 00 02-02 06:43 :00 No 25mg 25 mg, Slow IV Push, ONCE, 1 dose, On Sun02/02/23 at 0145, STAT [facility] butalbital- acetaminoph en-caff 50-325-40 mg tablet 02-02 00:00: 00 11-12 00:00 :00 No [id number] 1{tbl} Take 1 tablet by mouth every 4 (four) hours as needed for Pain (scale 7-10). [facility] ondansetron (ZOFRAN) 4 mg tablet 02-02 00:00: 00 05-28 00:00 :00 No [id number] 4mg Take 1 tablet by mouth every 8 (eight) hours as needed for Nausea and Vomiting (N/V). [facility] iopamidol (ISOVUE 370-500 mL) injection 98 mL 1-10 21:00: 00 10-24 21:00 :00 No [id number] 98mL 98 mL, Intravenou s, ONCE, 1 dose, On Sun10/24/22 at 1500, Routine [facility] morpHINE (4 mg/mL) injection 4 mg 10-24 18:30: 00 10-24 19:03 :00 No 4mg 4 mg, Slow IV Push, ONCE, 1 dose, On Sun10/24/22 at 1230, STAT [facility] ondansetron (ZOFRAN (PF)) injection 4 mg 10-24 18:30: 00 10-24 19:01 :00 No 4mg 4 mg, Slow IV Push, ONCE, 1 dose, On Sun10/24/22 at 1230, NICOLASA [facility] NaCl 0.9% (NS) bolus infusion 1,000 mL 10-24 18:30: 00 10-24 21:40 :00 No 1000mL at 999 mL/hr, 1,000 mL, IV Infusion, ONCE, 1 dose, On Sun10/24/22 at 1230, STAT [facility] ondansetron 4 mg disintegrat ing tablet 10-24 00:00: 00 05-28 00:00 :00 No [id number] 4mg Take 1 tablet by mouth every 8 (eight) hours as needed for Nausea and Vomiting (N/V) for up to 10 doses. [facility] cephALEXin (KEFLEX) 500 mg capsule 10-24 00:00: 00 11-01 05:59 :00 No [id number] 500mg Take 1 capsule by mouth 4 (four) times daily for 7 days. [facility] ibuprofen 600 mg tablet 10-24 00:00: 00 10-30 05:59 :00 No [id number] 600mg Take 1 tablet by mouth every 8 (eight) hours as needed for Pain (scale 4-6) for up to 5 days. [facility] dicyclomine 20 mg tablet 10-24 00:00: 00 10-30 05:59 :00 No [id number] 20mg Take 1 tablet by mouth 3 (three) times daily as needed for Abdominal pain for up to 5 days. [facility] megestroL 40 mg tablet 2021-10 00:00: 00 11-12 00:00 :00 No [id number] 100 Take by mouth 2 tabs for first 7 days then 1 tablet by mouth daily for next 14 days. [facility] cephALEXin (KEFLEX) 500 mg capsule 2021-10 00:00: 00 07-29 04:59 :00 No [id number] 100 500mg Take 1 capsule by mouth in the morning and 1 capsule at noon and 1 capsule in the evening. Do all this for 7 days. [facility] iopamidol (ISOVUE 370-500 mL) injection 65 mL 05-19 21:30: 00 05-19 21:45 :00 No [id number] 65mL 65 mL, Intravenou s, ONCE, 1 dose, On Sun05/19/22 at 1645, Routine [facility] ondansetron (ZOFRAN (PF)) injection 4 mg 05-19 21:30: 00 05-19 20:51 :00 No 4mg 4 mg, Slow IV Push, ONCE, 1 dose, On Sun05/19/22 at 1630, NICOLASA [facility] ketorolac (TORADOL) injection 30 mg 05-19 21:30: 00 05-19 20:51 :00 No 30mg 30 mg, Slow IV Push, ONCE, 1 dose, On Sun05/19/22 at 1630, Routine [facility] NaCl 0.9% (NS) bolus infusion 1,000 mL 05-19 21:30: 00 05-19 22:08 :00 No 1000mL at 999 mL/hr, 1,000 mL, IV Infusion, ONCE, 1 dose, On Sun05/19/22 at 1630, NICOLASA [facility] tamsulosin 0.4 mg 24 hr capsule 05-19 00:00: 00 11-12 00:00 :00 No [id number] .4mg Take 1 capsule by mouth at bedtime. [facility] traMADoL 50 mg tablet 8-05 00:00: 00 05-27 04:59 :00 No [id number] 50mg Take 1 tablet by mouth every 6 (six) hours as needed for Pain (scale 4-6) for up to 7 days. Indication s: acute pain [facility] ketorolac (TORADOL) injection 30 mg 05-13 08:45: 00 05-13 07:40 :00 No 30mg 30 mg, Slow IV Push, ONCE, 1 dose, On 05/13/22 at 0345, Routine [facility] ketorolac 10 mg tablet 05-13 00:00: 00 11-12 00:00 :00 No [id number] 10mg Take 1 tablet by mouth every 6 (six) hours as needed for Pain (scale 7-10). [facility] butalbital- acetaminoph en-caff (ESGIC) 50-325-40 mg tablet 2 tablet 04-01 23:15: 00 04-01 22:22 :00 No 2{tbl} 2 tablet, Oral, ONCE NOW, 1 dose, On 04/01/22 at 1815, Routine [facility] ketorolac (TORADOL) injection 30 mg 04-01 23:15: 00 04-01 22:21 :00 No 30mg 30 mg, Intramuscu lar, ONCE, 1 dose, On 04/01/22 at 1815, NICOLASA [facility] No known medications 04-01 18:30: 37 No [facility] No known medications 10-25 13:51: 01 No [facility] cefdinir 300 mg capsule 10-25 00:00: 00 11-02 05:59 :00 No [id number] 300mg Take 1 capsule by mouth 2 (two) times daily for 7 days. [facility] Iron (ferrous sulfate) 325 [...] No known medications 6-25 21:44: 39 No [facility] amitriptyli ne 25 mg [...] 2020-12-15 00:00:00 Completed TDAP 2016-08-23 00:00:00 Completed [facility] Vital Signs Vital Name Observation Time Observation Value Comments S ource Body temperature 2025-05-08 13:05:00 36.33 Jennifer [facility] Systolic blood pressure 2025-04-14 16:28:36 130 mm[Hg] [facility] Diastolic blood pressure 2025-04-14 16:28:36 90 mm[Hg] [facility] Heart rate 2025-04-14 16:28:36 93 /min [facility] Body temperature 2025-04-14 16:28:36 37.78 Jennifer [facility] Respiratory rate 2025-04-14 16:28:36 16 /min [facility] Oxygen saturation in Arterial blood by Pulse oximetry 2025-04-14 16:28:36 100 /min [facility] Body height 2025-04-14 13:10:00 157.5 cm [facility] Body weight 2025-04-14 13:10:00 81.647 kg [facility] BMI 2025-04-14 13:10:00 32.92 kg/m2 [facility] Systolic blood pressure 2025-03-09 07:37:00 126 mm[Hg] [facility] Diastolic blood pressure 2025-03-09 07:37:00 85 mm[Hg] [facility] Heart rate 2025-03-09 07:37:00 95 /min [facility] Body temperature 2025-03-09 07:37:00 36.83 Jennifer [facility] Respiratory rate 2025-03-09 07:37:00 17 /min [facility] Oxygen saturation in Arterial blood by Pulse oximetry 2025-03-09 07:37:00 98 /min [facility] Body height 2025-03-09 02:30:00 157.5 cm [facility] Body weight 2025-03-09 02:30:00 81.647 kg [facility] BMI 2025-03-09 02:30:00 32.92 kg/m2 [facility] Systolic blood pressure 2025-02-04 19:15:00 126 mm[Hg] [facility] Diastolic blood pressure 2025-02-04 19:15:00 83 mm[Hg] [facility] Heart rate 2025-02-04 19:15:00 98 /min [facility] Body temperature 2025-02-04 19:15:00 36.5 Jennifer [facility] Respiratory rate 2025-02-04 19:15:00 20 /min [facility] Body height 2025-02-04 19:15:00 157.5 cm [facility] Body weight 2025-02-04 19:15:00 84.414 kg [facility] BMI 2025-02-04 19:15:00 34.04 kg/m2 [facility] Body temperature 2025-01-27 18:45:00 37 Jennifer [facility] Systolic blood pressure 2025-01-27 18:00:00 124 mm[Hg] [facility] Diastolic blood pressure 2025-01-27 18:00:00 91 mm[Hg] [facility] Heart rate 2025-01-27 18:00:00 89 /min [facility] Respiratory rate 2025-01-27 18:00:00 16 /min [facility] Oxygen saturation in Arterial blood by Pulse oximetry 2025-01-27 18:00:00 98 /min [facility] Body height 2025-01-27 17:26:00 157.5 cm [facility] Body weight 2025-01-27 17:26:00 79.379 kg [facility] BMI 2025-01-27 17:26:00 32.01 kg/m2 [facility] Systolic blood pressure 2025-01-17 09:03:00 115 mm[Hg] [facility] Diastolic blood pressure 2025-01-17 09:03:00 79 mm[Hg] [facility] Heart rate 2025-01-17 09:03:00 89 /min [facility] Body temperature 2025-01-17 09:03:00 36.89 Jennifer [facility] Respiratory rate 2025-01-17 09:03:00 16 /min [facility] Oxygen saturation in Arterial blood by Pulse oximetry 2025-01-17 09:03:00 100 /min [facility] Body height 2025-01-17 07:25:00 157.5 cm [facility] Body weight 2025-01-17 07:25:00 81.647 kg [facility] BMI 2025-01-17 07:25:00 32.92 kg/m2 [facility] Systolic blood pressure 2025-01-05 14:39:00 125 mm[Hg] [facility] Diastolic blood pressure 2025-01-05 14:39:00 84 mm[Hg] [facility] Heart rate 2025-01-05 14:39:00 99 /min [facility] Body temperature 2025-01-05 14:39:00 37.33 Jennifer [facility] Respiratory rate 2025-01-05 14:39:00 16 /min [facility] Oxygen saturation in Arterial blood by Pulse oximetry 2025-01-05 14:39:00 98 /min [facility] Body height 2025-01-05 10:11:00 157.5 cm [facility] Body weight 2025-01-05 10:11:00 83.462 kg [facility] BMI 2025-01-05 10:11:00 33.65 kg/m2 [facility] Systolic blood pressure 2024-12-18 07:00:00 101 mm[Hg] [facility] Diastolic blood pressure 2024-12-18 07:00:00 71 mm[Hg] [facility] Heart rate 2024-12-18 07:00:00 90 /min [facility] Respiratory rate 2024-12-18 07:00:00 16 /min [facility] Oxygen saturation in Arterial blood by Pulse oximetry 2024-12-18 07:00:00 97 /min [facility] Body temperature 2024-12-18 05:54:00 37.11 Jennifer [facility] Body height 2024-12-18 05:54:00 157.5 cm [facility] Body weight 2024-12-18 05:54:00 83.462 kg [facility] BMI 2024-12-18 05:54:00 33.65 kg/m2 [facility] Systolic blood pressure 2024-11-19 04:41:00 120 mm[Hg] [facility] Diastolic blood pressure 2024-11-19 04:41:00 93 mm[Hg] [facility] Heart rate 2024-11-19 04:41:00 78 /min [facility] Body temperature 2024-11-19 04:41:00 36.83 Jennifer [facility] Respiratory rate 2024-11-19 04:41:00 16 /min [facility] Oxygen saturation in Arterial blood by Pulse oximetry 2024-11-19 04:41:00 99 /min [facility] Body height 2024-11-19 03:00:00 157.5 cm [facility] Body weight 2024-11-19 03:00:00 86.183 kg [facility] BMI 2024-11-19 03:00:00 34.75 kg/m2 [facility] Systolic blood pressure 2024-11-09 04:37:00 130 mm[Hg] [facility] Diastolic blood pressure 2024-11-09 04:37:00 89 mm[Hg] [facility] Heart rate 2024-11-09 04:37:00 88 /min [facility] Body temperature 2024-11-09 04:37:00 37 Jennifer [facility] Respiratory rate 2024-11-09 04:37:00 19 /min [facility] Body height 2024-11-09 04:37:00 157.5 cm [facility] Body weight 2024-11-09 04:37:00 81.647 kg [facility] BMI 2024-11-09 04:37:00 32.92 kg/m2 [facility] Oxygen saturation in Arterial blood by Pulse oximetry 2024-11-09 04:37:00 100 /min [facility] Systolic blood pressure 2024-07-25 14:30:00 124 mm[Hg] [facility] Diastolic blood pressure 2024-07-25 14:30:00 83 mm[Hg] [facility] Heart rate 2024-07-25 14:30:00 88 /min [facility] Respiratory rate 2024-07-25 14:30:00 14 /min [facility] Oxygen saturation in Arterial blood by Pulse oximetry 2024-07-25 14:30:00 99 /min [facility] Body temperature 2024-07-25 12:49:00 37.22 Jennifer [facility] Body height 2024-07-25 12:49:00 157.5 cm [facility] Body weight 2024-07-25 12:49:00 86.637 kg [facility] BMI 2024-07-25 12:49:00 34.93 kg/m2 [facility] Systolic blood pressure 2024-07-04 10:38:00 117 mm[Hg] [facility] Diastolic blood pressure 2024-07-04 10:38:00 79 mm[Hg] [facility] Heart rate 2024-07-04 10:38:00 82 /[facility] 2024-07-04 10:38:00 36.89 Jennifer [facility] Respiratory rate 2024-07-04 10:38:00 14 /min [facility] Oxygen saturation in Arterial blood by Pulse oximetry 2024-07-04 10:38:00 100 /min [facility] Body height 2024-07-04 07:28:00 157.5 cm [facility] Body weight 2024-07-04 07:28:00 79.379 kg [facility] BMI 2024-07-04 07:28:00 32.01 kg/m2 [facility] Systolic blood pressure 2024-03-12 11:00:00 127 mm[Hg] [facility] Diastolic blood pressure 2024-03-12 11:00:00 94 mm[Hg] [facility] Heart rate 2024-03-12 11:00:00 84 /min [facility] Body temperature 2024-03-12 11:00:00 36.61 Jennifer [facility] Respiratory rate 2024-03-12 11:00:00 14 /min [facility] Oxygen saturation in Arterial blood by Pulse oximetry 2024-03-12 11:00:00 100 /min [facility] Body height 2024-03-12 07:04:00 157.5 cm [facility] Body weight 2024-03-12 07:04:00 87 kg [facility] BMI 2024-03-12 07:04:00 35.08 kg/m2 [facility] Systolic blood pressure 2024-02-03 12:00:00 121 mm[Hg] [facility] Diastolic blood pressure 2024-02-03 12:00:00 82 mm[Hg] [facility] Heart rate 2024-02-03 12:00:00 80 /min [facility] Respiratory rate 2024-02-03 12:00:00 17 /min [facility] Oxygen saturation in Arterial blood by Pulse oximetry 2024-02-03 12:00:00 100 /min [facility] Body temperature 2024-02-03 09:01:00 37.33 Jennifer [facility] Body height 2024-02-03 09:01:00 157.5 cm [facility] Body weight 2024-02-03 09:01:00 81.647 kg [facility] BMI 2024-02-03 09:01:00 32.92 kg/m2 [facility] Systolic blood pressure 2024-01-02 05:38:00 109 mm[Hg] [facility] Diastolic blood pressure 2024-01-02 05:38:00 91 mm[Hg] [facility] Heart rate 2024-01-02 05:38:00 93 /min [facility] Body temperature 2024-01-02 05:38:00 36.28 Jennifer [facility] Respiratory rate 2024-01-02 05:38:00 20 /min [facility] Oxygen saturation in Arterial blood by Pulse oximetry 2024-01-02 05:38:00 99 /min [facility] Body height 2024-01-02 03:25:00 157.5 cm [facility] Body weight 2024-01-02 03:25:00 81.647 kg [facility] BMI 2024-01-02 03:25:00 32.92 kg/m2 [facility] Systolic blood pressure 2023-12-26 08:51:00 115 mm[Hg] [facility] Diastolic blood pressure 2023-12-26 08:51:00 78 mm[Hg] [facility] Heart rate 2023-12-26 08:51:00 98 /min [facility] Body temperature 2023-12-26 08:51:00 37.5 Jennifer [facility] Respiratory rate 2023-12-26 08:51:00 12 /min [facility] Body height 2023-12-26 08:51:00 157.5 cm [facility] Body weight 2023-12-26 08:51:00 85.322 kg [facility] BMI 2023-12-26 08:51:00 34.40 kg/m2 [facility] Oxygen saturation in Arterial blood by Pulse oximetry 2023-12-26 08:51:00 100 /min [facility] Systolic blood pressure 2023-11-20 16:29:00 120 mm[Hg] [facility] Diastolic blood pressure 2023-11-20 16:29:00 89 mm[Hg] [facility] Heart rate 2023-11-20 16:29:00 85 /min [facility] Respiratory rate 2023-11-20 16:29:00 16 /min [facility] Oxygen saturation in Arterial blood by Pulse oximetry 2023-11-20 16:29:00 97 /min [facility] Body temperature 2023-11-20 12:44:00 37.11 Jennifer [facility] Body height 2023-11-20 12:44:00 157.5 cm [facility] Body weight 2023-11-20 12:44:00 82.101 kg [facility] BMI 2023-11-20 12:44:00 33.11 kg/m2 [facility] Systolic blood pressure 2023-11-12 06:09:00 135 mm[Hg] [facility] Diastolic blood pressure 2023-11-12 06:09:00 86 mm[Hg] [facility] Heart rate 2023-11-12 06:09:00 89 /min [facility] Body temperature 2023-11-12 06:09:00 37.28 Jennifer [facility] Respiratory rate 2023-11-12 06:09:00 16 /min [facility] Body height 2023-11-12 06:09:00 157.5 cm [facility] Body weight 2023-11-12 06:09:00 83.553 kg [facility] BMI 2023-11-12 06:09:00 33.69 kg/m2 [facility] Oxygen saturation in Arterial blood by Pulse oximetry 2023-11-12 06:09:00 100 /min [facility] Systolic blood pressure 2023-10-28 02:30:00 121 mm[Hg] [facility] Diastolic blood pressure 2023-10-28 02:30:00 80 mm[Hg] [facility] Heart rate 2023-10-28 02:30:00 124 /min [facility] Body temperature 2023-10-28 02:30:00 38 Jennifer [facility] Respiratory rate 2023-10-28 02:30:00 20 /min [facility] Body weight 2023-10-28 02:30:00 86.183 kg [facility] BMI 2023-10-28 02:30:00 34.75 kg/m2 [facility] Oxygen saturation in Arterial blood by Pulse oximetry 2023-10-28 02:30:00 96 /min [facility] Systolic blood pressure 2023-09-09 02:47:12 116 mm[Hg] [facility] Diastolic blood pressure 2023-09-09 02:47:12 85 mm[Hg] [facility] Heart rate 2023-09-09 02:47:12 78 /min [facility] Body temperature 2023-09-09 02:47:12 36.28 Jennifer [facility] Respiratory rate 2023-09-09 02:47:12 18 /min [facility] Oxygen saturation in Arterial blood by Pulse oximetry 2023-09-09 02:47:12 98 /min [facility] Body height 2023-09-09 00:30:00 157.5 cm [facility] Body weight 2023-09-09 00:30:00 85.276 kg [facility] BMI 2023-09-09 00:30:00 34.39 kg/m2 [facility] Systolic blood pressure 2023-09-07 12:45:00 119 mm[Hg] [facility] Diastolic blood pressure 2023-09-07 12:45:00 83 mm[Hg] [facility] Heart rate 2023-09-07 12:45:00 101 /min [facility] Body temperature 2023-09-07 12:45:00 37.5 Jennifer [facility] Respiratory rate 2023-09-07 12:45:00 18 /min [facility] Body height 2023-09-07 12:45:00 157.5 cm [facility] Body weight 2023-09-07 12:45:00 82.872 kg [facility] BMI 2023-09-07 12:45:00 33.42 kg/m2 [facility] Oxygen saturation in Arterial blood by Pulse oximetry 2023-09-07 12:45:00 99 /min [facility] Systolic blood pressure 2023-09-04 04:00:00 112 mm[Hg] [facility] Diastolic blood pressure 2023-09-04 04:00:00 97 mm[Hg] [facility] Heart rate 2023-09-04 04:00:00 94 /min [facility] Body temperature 2023-09-04 04:00:00 36.89 Jennifer [facility] Oxygen saturation in Arterial blood by Pulse oximetry 2023-09-04 04:00:00 98 /min [facility] Respiratory rate 2023-09-04 03:00:00 17 /min [facility] Body height 2023-09-04 00:54:00 157.5 cm [facility] Body weight 2023-09-04 00:54:00 83.915 kg [facility] BMI 2023-09-04 00:54:00 33.84 kg/m2 [facility] Systolic blood pressure 2023-08-04 04:05:00 139 mm[Hg] [facility] Diastolic blood pressure 2023-08-04 04:05:00 77 mm[Hg] [facility] Heart rate 2023-08-04 04:05:00 104 /min [facility] Body temperature 2023-08-04 04:05:00 36.72 Jennifer [facility] Respiratory rate 2023-08-04 04:05:00 16 /min [facility] Body height 2023-08-04 04:05:00 157.5 cm [facility] Body weight 2023-08-04 04:05:00 85.957 kg [facility] BMI 2023-08-04 04:05:00 34.66 kg/m2 [facility] Oxygen saturation in Arterial blood by Pulse oximetry 2023-08-04 04:05:00 100 /min [facility] Systolic blood pressure 2023-07-26 07:38:00 134 mm[Hg] [facility] Diastolic blood pressure 2023-07-26 07:38:00 95 mm[Hg] [facility] Heart rate 2023-07-26 07:38:00 114 /min [facility] Body temperature 2023-07-26 07:38:00 37.28 Jennifer [facility] Respiratory rate 2023-07-26 07:38:00 18 /min [facility] Body height 2023-07-26 07:38:00 157.5 cm [facility] Body weight 2023-07-26 07:38:00 86.183 kg [facility] BMI 2023-07-26 07:38:00 34.75 kg/m2 [facility] Oxygen saturation in Arterial blood by Pulse oximetry 2023-07-26 07:38:00 99 /min [facility] Systolic blood pressure 2023-07-25 14:52:00 126 mm[Hg] [facility] Diastolic blood pressure 2023-07-25 14:52:00 96 mm[Hg] [facility] Heart rate 2023-07-25 14:52:00 98 /min [facility] Body temperature 2023-07-25 14:52:00 37 Jennifer [facility] Respiratory rate 2023-07-25 14:52:00 16 /min [facility] Oxygen saturation in Arterial blood by Pulse oximetry 2023-07-25 14:52:00 98 /min [facility] Body height 2023-07-25 12:33:00 157.5 cm [facility] Body weight 2023-07-25 12:33:00 86.456 kg [facility] BMI 2023-07-25 12:33:00 34.86 kg/m2 [facility] Systolic blood pressure 2023-07-12 12:34:00 127 mm[Hg] [facility] Diastolic blood pressure 2023-07-12 12:34:00 86 mm[Hg] [facility] Heart rate 2023-07-12 12:34:00 86 /min [facility] Body temperature 2023-07-12 12:34:00 36.72 Jennifer [facility] Respiratory rate 2023-07-12 12:34:00 16 /min [facility] Body height 2023-07-12 12:34:00 157.5 cm [facility] weight 2023-07-12 12:34:00 86.183 kg [facility] BMI 2023-07-12 12:34:00 34.75 kg/m2 [facility] Oxygen saturation in Arterial blood by Pulse oximetry 2023-07-12 12:34:00 98 /min [facility] Systolic blood pressure 2023-06-24 10:24:00 118 mm[Hg] [facility] Diastolic blood pressure 2023-06-24 10:24:00 89 mm[Hg] [facility] Heart rate 2023-06-24 10:24:00 95 /min [facility] Body temperature 2023-06-24 10:24:00 36.78 Jennifer [facility] Respiratory rate 2023-06-24 10:24:00 18 /min [facility] Body height 2023-06-24 10:24:00 157.5 cm [facility] Body weight 2023-06-24 10:24:00 89.812 kg [facility] BMI 2023-06-24 10:24:00 36.21 kg/m2 [facility] Oxygen saturation in Arterial blood by Pulse oximetry 2023-06-24 10:24:00 100 /min [facility] Systolic blood pressure 2023-06-18 04:52:00 113 mm[Hg] [facility] Diastolic blood pressure 2023-06-18 04:52:00 82 mm[Hg] [facility] Heart rate 2023-06-18 04:52:00 100 /min [facility] Body temperature 2023-06-18 04:52:00 37.39 Jennifer [facility] Respiratory rate 2023-06-18 04:52:00 18 /min [facility] Body height 2023-06-18 04:52:00 157.5 cm [facility] Body weight 2023-06-18 04:52:00 89.903 kg [facility] BMI 2023-06-18 04:52:00 36.25 kg/m2 [facility] Oxygen saturation in Arterial blood by Pulse oximetry 2023-06-18 04:52:00 100 /min [facility] Systolic blood pressure 2023-06-12 09:00:00 105 mm[Hg] [facility] Diastolic blood pressure 2023-06-12 09:00:00 74 mm[Hg] [facility] Heart rate 2023-06-12 09:00:00 74 /min [facility] Respiratory rate 2023-06-12 09:00:00 16 /min [facility] Oxygen saturation in Arterial blood by Pulse oximetry 2023-06-12 09:00:00 97 /min [facility] Body temperature 2023-06-12 04:09:00 36.89 Jennifer [facility] Body height 2023-06-12 04:09:00 157.5 cm [facility] Body weight 2023-06-12 04:09:00 86.183 kg [facility] BMI 2023-06-12 04:09:00 34.75 kg/m2 [facility] Systolic blood pressure 2023-05-28 08:00:00 123 mm[Hg] [facility] Diastolic blood pressure 2023-05-28 08:00:00 78 mm[Hg] [facility] Heart rate 2023-05-28 08:00:00 93 /min [facility] Oxygen [facility] in Arterial blood by Pulse oximetry 2023-05-28 08:00:00 99 /min [facility] Respiratory rate 2023-05-28 06:00:00 18 /min [facility] Body temperature 2023-05-28 05:37:00 35.72 Jennifer [facility] Body height 2023-05-28 05:37:00 157.5 cm [facility] Body weight 2023-05-28 05:37:00 87.136 kg [facility] BMI 2023-05-28 05:37:00 35.14 kg/m2 [facility] Systolic blood pressure 2023-03-07 03:59:00 122 mm[Hg] [facility] Diastolic blood pressure 2023-03-07 03:59:00 77 mm[Hg] [facility] Heart rate 2023-03-07 03:59:00 97 /min [facility] Body temperature 2023-03-07 03:59:00 36.67 Jennifer [facility] Respiratory rate 2023-03-07 03:59:00 18 /min [facility] Body height 2023-03-07 03:59:00 157.5 cm [facility] Body weight 2023-03-07 03:59:00 79.379 kg [facility] BMI 2023-03-07 03:59:00 32.01 kg/m2 [facility] Oxygen saturation in Arterial blood by Pulse oximetry 2023-03-07 03:59:00 99 /min [facility] Heart rate 2023-02-02 07:48:00 73 /min [facility] Oxygen saturation in Arterial blood by Pulse oximetry 2023-02-02 07:48:00 98 /min [facility] Systolic blood pressure 2023-02-02 07:00:00 122 mm[Hg] [facility] Diastolic blood pressure 2023-02-02 07:00:00 79 mm[Hg] [facility] Respiratory rate 2023-02-02 07:00:00 15 /min [facility] Body temperature 2023-02-02 06:07:00 36.94 Jennifer [facility] Body height 2023-02-02 06:07:00 157.5 cm [facility] Body weight 2023-02-02 06:07:00 79.379 kg [facility] BMI 2023-02-02 06:07:00 32.01 kg/m2 [facility] Systolic blood pressure 2022-10-24 21:42:00 114 mm[Hg] [facility] Diastolic blood pressure 2022-10-24 21:42:00 74 mm[Hg] [facility] Heart rate 2022-10-24 21:42:00 72 /min [facility] Respiratory rate 2022-10-24 21:42:00 16 /min [facility] Oxygen saturation in Arterial blood by Pulse oximetry 2022-10-24 21:42:00 99 /min [facility] Body temperature 2022-10-24 18:03:00 37.33 Jennifer [facility] Body height 2022-10-24 18:03:00 157.5 cm [facility] Body weight 2022-10-24 18:03:00 79.379 kg [facility] BMI 2022-10-24 18:03:00 32.01 kg/m2 [facility] Systolic blood pressure 2022-07-21 12:46:00 115 mm[Hg] [facility] Diastolic blood pressure 2022-07-21 12:46:00 83 mm[Hg] [facility] Heart rate 2022-07-21 12:46:00 82 /min [facility] Body temperature 2022-07-21 12:46:00 36.89 Jennifer [facility] Respiratory rate 2022-07-21 12:46:00 18 /min [facility] Body weight 2022-07-21 12:46:00 78.019 kg [facility] BMI 2022-07-21 12:46:00 31.46 kg/m2 [facility] Oxygen saturation in Arterial blood by Pulse oximetry 2022-07-21 12:46:00 99 /min [facility] Systolic blood pressure 2022-05-19 22:00:00 128 mm[Hg] [facility] Diastolic blood pressure 2022-05-19 22:00:00 68 mm[Hg] [facility] Heart rate 2022-05-19 22:00:00 78 /min [facility] Body temperature 2022-05-19 22:00:00 36.78 Jennifer [facility] Respiratory rate 2022-05-19 22:00:00 18 /min [facility] Oxygen saturation in Arterial blood by Pulse oximetry 2022-05-19 22:00:00 100 /min [facility] Body height 2022-05-19 20:31:00 157.5 cm [facility] Body weight 2022-05-19 20:31:00 78.019 kg [facility] BMI 2022-05-19 20:31:00 31.46 kg/m2 [facility] Heart rate 2022-05-13 08:30:00 83 /min [facility] Oxygen saturation in Arterial blood by Pulse oximetry 2022-05-13 08:30:00 99 /min [facility] Systolic blood pressure 2022-05-13 08:00:00 111 mm[Hg] [facility] Diastolic blood pressure 2022-05-13 08:00:00 80 mm[Hg] [facility] Body temperature 2022-05-13 07:05:00 37 Jennifer [facility] Respiratory rate 2022-05-13 07:05:00 18 /min [facility] Body height 2022-05-13 07:05:00 157.5 cm [facility] Body weight 2022-05-13 07:05:00 76.658 kg [facility] BMI 2022-05-13 07:05:00 30.91 kg/m2 [facility] Systolic blood pressure 2022-04-01 21:47:00 124 mm[Hg] [facility] Diastolic blood pressure 2022-04-01 21:47:00 84 mm[Hg] [facility] Heart rate 2022-04-01 21:47:00 89 /min [facility] Body temperature 2022-04-01 21:47:00 37.22 Jennifer [facility] Respiratory rate 2022-04-01 21:47:00 22 /min [facility] Body weight 2022-04-01 21:47:00 77.111 kg [facility] BMI 2022-04-01 21:47:00 29.18 kg/m2 [facility] Oxygen saturation in Arterial blood by Pulse oximetry 2022-04-01 21:47:00 99 /min [facility] Systolic blood pressure 2021-10-25 19:42:00 103 mm[Hg] [facility] Diastolic blood pressure 2021-10-25 19:42:00 74 mm[Hg] [facility] Heart rate 2021-10-25 19:42:00 94 /min [facility] Body temperature 2021-10-25 19:42:00 37.67 Jennifer [facility] Respiratory rate 2021-10-25 19:42:00 18 /min [facility] Body weight 2021-10-25 19:42:00 70.761 kg [facility] BMI 2021-10-25 19:42:00 26.78 kg/m2 [facility] Oxygen saturation in Arterial blood by Pulse oximetry 2021-10-25 19:42:00 99 /min [facility] BP Systolic 2024-12-19 08:33:00 128 mm[Hg] Step hen F [facility]il[facility] BP Diastolic 2024-12-19 08:33:00 74 mm[Hg] Osito phen F [facility]il[facility] Weight Measured 2024-12-19 08:33:00 184.20 pounds Darryl F [facility]il[facility] Height Measured 2024-12-19 08:33:00 63.00 inches Darryl F [place] Body Temperature 2024-12-19 08:33:00 98.10 degrees Darryl [...] Edilson BP Diastolic 2023-12-17 08:18:00 81 mm[Hg] Ostio phen F [facility] Weight Measured 2023-12-17 08:18:00 [...] 2023-08-28 16:47:00 97 mm[Hg] Osito phen F Deilson Weight Measured 2023-08-28 16:47:00 189.40 pounds Darryl [...] 9V) VACCINE 2025-05-08 13:05:30 Viry De Anda [facility] CT ABDOMEN PELVIS W CONTRAST 2025-04-14 14:52:00 Hermilo Ricks [facility] URINALYSIS 2025-04-14 14:33:00 [facility] LIPASE 2025-04-14 13:43:[address] [facility] COMP. METABOLIC PANEL ([id number]) 2025-04-14 13:43:00 Hermilo Ricks [facility] CBC WITH DIFF 2025-04-14 13:43:00 Hermilo Ricks [facility] US OVARY TORSION 2025-03-09 05:02:45 Doni Marie [facility] POCT TEST 2025-03-09 03:04:00 Ryan Marie [facility] LIPASE 2025-03-09 03:03:00 Doni [facility] COMP. METABOLIC PANEL ([id number]) 2025-03-09 03:03:00 Doni Marie [facility] CBC WITH DIFF 2025-03-09 03:03:00 Doni Marie [facility] URINALYSIS 2025-03-09 03:03:[address] [facility] GARDASIL 9 (HPV 9V) VACCINE 2025-02-04 19:21:47 Carolyn Miller [facility] POCT TEST 2025-02-04 00:00:00 Kaye House [facility] POCT GLUCOSE(AGE >30DAYS) 2025-01-27 18:48:[facility] 2025-01-27 18:45:00 [facility]AST 2025-01-17 08:40:02 Selene Parra [facility] POCT TEST 2025-01-17 07:32:00 Selene Parra [facility] LIPASE 2025-01-17 07:29:00 Selene Parra [facility] COMP. METABOLIC PANEL ([id number]) 2025-01-17 07:29:00 Selene Parra [facility] CBC WITH DIFF 2025-01-17 07:29:00 Selene Parra [facility] URINALYSIS 2025-01-17 07:29:00 Selene Parra [facility] CT ABDOMEN PELVIS W CONTRAST 2025-01-05 12:26:37 Singer [facility] POCT TEST 2025-01-05 11:58:00 Jeanine Ricks [facility] URINALYSIS 2025-01-05 10:42:00 Singer [facility] XR CHEST 1 VW 2025-01-05 10:39:55 Singer [facility] COMP. METABOLIC PANEL ([id number]) 2025-01-05 10:16:00 Singer [facility] CBC WITH DIFF 2025-01-05 10:16:00 Ricks [facility] INFLUENZA A/B RSV COVID NAAT 2025-01-05 10:16:00 Singer [facility] [id number] Colposcopy Entire Vagina W/cervix If Present 2024-12-19 00:00:00 Darryl Waggoner POCT TEST 2024-12-18 06:15:00 Martha Terry [facility] COMP. METABOLIC PANEL ([id number]) 2024-12-18 06:13:00 Gaby Terry [facility] CBC WITH DIFF 2024-12-18 06:13:00 [facility] 2024-12-18 06:13:00 [facility] ABDOMEN ACUTE SERIES 2024-07-25 14:37:21 Do jasmina Marie [facility] POCT TEST 2024-07-25 13:23:00 Ryan Marie [facility] LIPASE 2024-07-25 13:21:00 Doni Marie [facility] COMP. METABOLIC PANEL ([id number]) 2024-07-25 13:21:00 Marie, [facility] CBC WITH DIFF 2024-07-25 13:21:[address] [facility] 2024-07-25 13:21:00 Kidder [facility] URINE DRUG (IMMUNOASSAY) - COMPREHENSIVE DRUG SCREEN W/O REFLEX 2024-07-25 13:21:00 Frank [facility] CT ABDOMEN PELVIS W CONTRAST 2024-07-04 08:54:02 Selene Parra [facility] POCT TEST 2024-07-04 07:36:00 Selene Parra [facility] LIPASE 2024-07-04 07:33:[facility]OLIC PAN[facility] ([id number]) 2024-07-04 07:33:00 Selene Parra [facility] CBC WITH DIFF 2024-07-04 07:33:00 Selene Parra [facility] URINALYSIS 2024-07-04 07:33:00 Selene Parra [facility] CT ABDOMEN PELVIS W CONTRAST 2024-03-12 09:15:57 Selene Parra [facility] LIPASE 2024-03-12 09:01:00 Selene Parra [facility] COMP. METABOLIC PANEL ([id number]) 2024-03-12 09:01:00 Selene Parra [facility] CBC WITH DIFF 2024-03-12 09:01:00 Selene Parra [facility] EBV-MONONUCLEOSIS SCREEN 2024-02-03 10:22:00 Funmilayo Parra [facility] CT ABDOMEN PELVIS W CONTRAST 2024-02-03 10:08:28 Selene Parra [facility] POCT TEST 2024-02-03 09:09:00 Selene Parra [facility] LIPASE 2024-02-03 09:06:00 Selene Parra [facility] COMP. METABOLIC PANEL ([id number]) 2024-02-03 09:06:00 Selene Parra [facility] CBC WITH DIFF 2024-02-03 09:06:00 Selene Parra [facility] URINALYSIS 2024-02-03 09:06:00 Selene Parra [facility] RAPID STREP SCREEN FOR GROUP A 2024-02-03 09:06:00 Selene Parra [facility] ASSIGNMENT OF BENEFITS 2024-01-02 04:22:29 Docto r Unassigned, Olivia [facility] RAPID STREP SCREEN FOR GROUP A 2024-01-02 04:20:00 Doni Marie [facility] RAPID INFLUENZA A/B 2024-01-02 03:50:00 Ryan Marie [facility] COVID-19 (ID NOW RAPID TESTING) 2024-01-02 03:50:00 Doni Marie [facility] CONSENT/REFUSAL FOR DIAGNOSIS AND TREATMENT 2024-01-02 03:16:29 Doctor Unassigned, Olivia [facility] CONSENT/REFUSAL FOR DIAGNOSIS AND TREATMENT 2023-12-26 08:43:59 Doctor Unassigned, Olivia [facility] [id number] Colposcopy Cervix Endocervical Curettage 2023-12-17 00:00:00 Darryl Waggoner US OVARY TORSION 2023-11-20 16:01:25 Doni Marie [facility] CT ABDOMEN PELVIS W CONTRAST 2023-11-20 14:40:23 Doni Marie [facility] COMP. METABOLIC PANEL ([id number]) 2023-11-20 13:27:00 Doni Marie [facility] CBC WITH DIFF 2023-11-20 13:27:00 Doni Marie [facility] URINALYSIS 2023-11-20 13:27:00 [facility] 2023-11-20 13:26:00 Ryan Marie [facility] CONSENT/REFUSAL FOR DIAGNOSIS AND TREATMENT 2023-11-20 12:37:06 Doctor Unassigned, Olivia [facility] CONSENT/REFUSAL FOR DIAGNOSIS AND TREATMENT 2023-11-12 06:04:20 Doctor Unassigned, Olivia [facility] CONSENT/REFUSAL FOR DIAGNOSIS AND TREATMENT 2023-10-28 02:10:42 Doctor Unassigned, Olivia [facility] URINALYSIS 2023-09-09 02:35:00 Danie Ontiveros [facility] XR KUB 2023-09-09 01:28:00 Danie Ontiveros U [facility] CT LUMBAR SPINE WO CONTRAST 2023-09-09 01:02:05 Danie Ontiveros [facility] CONSENT/REFUSAL FOR DIAGNOSIS AND TREATMENT 2023-09-09 00:05:52 Doctor Unassigned, Olivia [facility] POCT TEST 2023-09-07 13:28:00 Juli Srivastava ra [facility] URINALYSIS 2023-09-07 13:27:00 Chayo Srivastava Un [facility] CONSENT/REFUSAL FOR DIAGNOSIS AND TREATMENT 2023-09-07 12:42:21 Doctor Unassigned, Olivia [facility] COMP. METABOLIC PANEL ([id number]) 2023-09-04 02:29:00 Selene Parra [facility] CBC WITH DIFF 2023-09-04 02:29:00 Selene Parra [facility] RAPID INFLUENZA A/B 2023-09-04 02:26:00 Selene Parra [facility] COVID-19 (ID NOW RAPID TESTING) 2023-09-04 02:26:00 Selene Parra [facility] ASSIGNMENT OF BENEFITS 2023-09-04 02:07:25 Docto r Unassigned, Olivia [facility] CONSENT/REFUSAL FOR DIAGNOSIS AND TREATMENT 2023-09-04 00:46:16 Doctor Unassigned, Olivia [facility] CONSENT/REFUSAL FOR DIAGNOSIS AND TREATMENT 2023-08-04 03:55:32 Doctor Unassigned, Olivia [facility] URINALYSIS 2023-07-26 08:52:00 Memo Resendiz [facility] URINALYSIS 2023-07-26 08:20:00 Memo Resendiz [facility] ASSIGNMENT OF BENEFITS 2023-07-26 08:05:43 Docto r Unassigned, Olivia [facility] CONSENT/REFUSAL FOR DIAGNOSIS AND TREATMENT 2023-07-26 07:33:52 Doctor Unassigned, Olivia [facility] RAPID STREP SCREEN FOR GROUP A 2023-07-25 13:40:00 Danii Arriaga [facility] RAPID INFLUENZA A/B 2023-07-25 13:40:00 Minal Arriaga [facility] COVID-19 (ID NOW RAPID TESTING) 2023-07-25 13:40:00 Danii Arriaga [facility] XR CHEST 2 VW 2023-07-25 13:26:06 Danii Arriaga [facility] ASSIGNMENT OF BENEFITS 2023-07-25 13:17:29 Docto r Unassigned, Olivia [facility] CONSENT/REFUSAL FOR DIAGNOSIS AND TREATMENT 2023-07-25 12:29:51 Doctor Unassigned, Olivia [facility] XR CHEST 2 VW 2023-07-12 13:13:00 Doni Marie [facility] POCT TEST 2023-07-12 12:56:00 Ryan Marie [facility] CONSENT/REFUSAL FOR DIAGNOSIS AND TREATMENT 2023-07-12 12:27:58 Doctor Unassigned, Olivia [facility] [id number] Colposcopy Cervix Uppr/adjcnt Vagina W/cervix Bx 2023-06-26 00:00:00 Darryl Waggoner [id number] Endometrial Bx W/wo Endocervix Bx W/o Dilat Spx 2023-06-26 00:00:00 Darryl Waggoner CONSENT/REFUSAL FOR DIAGNOSIS AND TREATMENT 2023-06-24 10:15:34 Doctor Unassigned, Olivia [facility] RAPID INFLUENZA A/B 2023-06-18 05:03:00 Michelle Terry [facility] RAPID RSV 2023-06-18 05:03:00 Michelle Terry [facility] COVID-19 (ID NOW RAPID TESTING) 2023-06-18 05:03:00 Michelle Terry [facility] CONSENT/REFUSAL FOR DIAGNOSIS AND TREATMENT 2023-06-18 04:46:39 Doctor Unassigned, Olivia [facility] US OVARY TORSION 2023-06-12 08:14:06 [facility] 2023-06-12 05:07:00 Raven Lieberman [facility] COMP. METABOLIC PANEL ([id number]) 2023-06-12 05:02:00 Raven Lieberman [facility] CBC WITH DIFF 2023-06-12 05:02:00 [facility] UR[facility]IS 2023-06-12 05:02:00 Raven Lieberman [facility] NOTICE OF PRIVACY PRACTICES 2023-06-12 04:10:01 Doctor Unassigned, Olivia [facility] CONSENT/REFUSAL FOR DIAGNOSIS AND TREATMENT 2023-06-12 04:06:29 Doctor Unassigned, Olivia [facility] CT ABDOMEN PELVIS W CONTRAST 2023-05-28 07:44:47 Raven Lieberman [facility] POCT TEST 2023-05-28 06:40:00 Raven Lieberman [facility] COMP. METABOLIC PANEL ([id number]) 2023-05-28 06:34:00 Raven Lieberman [facility] CBC WITH DIFF 2023-05-28 06:34:[address] [facility] URINALYSIS 2023-05-28 06:34:00 Raven Lieberman [facility] CONSENT/REFUSAL FOR DIAGNOSIS AND TREATMENT 2023-05-28 05:25:17 Doctor Unassigned, Olivia [facility] [id number] Removal Impacted Cerumen Using Irrigation/lavage, Unilateral 2023-04-30 00:00:00 Darryl Waggoner ASSIGNMENT OF BENEFITS 2023-03-07 04:54:51 Docto r Unassigned, Olivia [facility] RAPID STREP SCREEN FOR GROUP A 2023-03-07 03:52:00 Hermilo Ricks [facility] CONSENT/REFUSAL FOR DIAGNOSIS AND TREATMENT 2023-03-07 02:58:48 Doctor Unassigned, Olivia [facility] BASIC METABOLIC PANEL (NA, K, CL, CO2, GLUCOSE, BUN, CREATININE, CA) 2023-02-02 06:41:00 Selene Parra [facility] CBC WITH DIFF 2023-02-02 06:41:00 Selene Parra [facility] POCT TEST 2023-02-02 06:17:00 Selene Parra [facility] NOTICE OF PRIVACY PRACTICES 2023-02-02 06:00:34 Doctor Unassigned, Olivia [facility] CONSENT/REFUSAL FOR DIAGNOSIS AND TREATMENT 2023-02-02 05:59:54 Doctor Unassigned, Olivia [facility] CT ABDOMEN PELVIS W CONTRAST 2022-10-24 20:00:18 Suraj Scott [facility] US OVARY TORSION 2022-10-24 19:43:53 Suraj Scott [facility] LIPASE 2022-10-24 18:58:00 Suraj Scott [facility] COMP. METABOLIC PANEL (58038) 2022-10-24 18:58:00 Suraj Scott [facility] CBC WITH DIFF 2022-10-24 18:58:00 [facility] 2022-10-24 18:58:00 Suraj Scott [facility] POCT TEST 2022-10-24 18:58:00 Odessa Scott [facility] CBC WITH DIFF 2022-07-21 13:07:00 Hermilo Ricks [facility] POCT TEST 2022-07-21 12:55:00 Jeanine Ricks [facility] URINALYSIS 2022-07-21 12:52:00 [facility] AND [facility]REATMENT 2022-07-21 12:44:40 Doctor Unassigned, Olivia [facility] CT ABDOMEN PELVIS W CONTRAST 2022-05-19 21:32:53 Cat Rutledge [facility] LIPASE 2022-05-19 20:49:00 [facility] COMP. METABOLIC PANEL (08006) 2022-05-19 20:49:00 Cat Rutledge [facility] CBC WITH DIFF 2022-05-19 20:49:00 Cat Rutledge [facility] URINALYSIS 2022-05-19 20:49:00 Cat Rutledge [facility] POCT TEST 2022-05-19 20:49:00 Paxton Rutledge [facility] URINE DRUG (IMMUNOASSAY) - COMPREHENSIVE DRUG SCREEN W/O REFLEX 2022-05-19 20:49:00 Cat Rutledge [facility] CONSENT/REFUSAL FOR DIAGNOSIS AND TREATMENT 2022-05-19 20:16:10 Doctor Unassigned, Olivia [facility] POCT TEST 2022-05-13 07:37:00 Selene Parra [facility] LIPASE 2022-05-13 07:32:00 Selene Parra [facility] COMP. METABOLIC PANEL (58476) 2022-05-13 07:32:00 Selene Parra [facility] CBC WITH DIFF 2022-05-13 07:32:00 Selene Parra [facility] URINALYSIS 2022-05-13 07:32:00 Selene Parra [facility] CONSENT/REFUSAL FOR DIAGNOSIS AND TREATMENT 2022-05-13 06:55:55 Doctor Unassigned, Olivia [facility] XR ANKLE <3 VW RIGHT 2022-04-01 22:28:50 Deny Rg [facility] URINALYSIS 2022-04-01 22:21:00 Christy Rg [facility] POCT TEST 2022-04-01 22:19:00 Christy Rg [facility] CONSENT/REFUSAL FOR DIAGNOSIS AND TREATMENT 2022-04-01 21:40:47 Doctor Unassigned, Olivia [facility] POCT TEST 2021-10-25 19:54:00 Lisa Tran [facility] URINALYSIS 2021-10-25 19:53:[address] [facility] CONSENT/REFUSAL FOR DIAGNOSIS AND TREATMENT 2021-10-25 19:34:46 Doctor Unassigned, Olivia [facility] NOTICE OF PRIVACY PRACTICES 2021-10-25 19:34:06 Doctor Unassigned, Olivia [facility] Plan of Care Planned Activity Planned Date Details Comments Source Goal Plan of Care Note [code = 74730-1] Goal Plan of Care Note [code = 16065-8] Goal Plan of Care Note [code = 36330-3] Goal Plan of Care Note [code = 37834-9] Goal Plan of Care Note [code = 30818-7] Goal Plan of Care Note [code = 48616-2] Goal Plan of Care Note [code = 32523-3] Goal Plan of Care Note [code = 34045-8] Goal Plan of Care Note [code = 23417-3] Goal Plan of Care Note [code = 40461-6] Goal Plan of Care Note [code = 68176-7] Goal Plan of Care Note [code = 74352-6] Goal Plan of Care Note [code = 48274-2] Goal Plan of Care Note [code = 53795-5] Goal Plan of Care Note [code = 82140-8] Goal Plan of Care Note [code = 34536-9] Goal Plan of Care Note [code = 24831-0] Goal Plan of Care Note [code = 96109-9] Goal Plan of Care Note [code = 31469-5] Goal Plan of Care Note [code = 00079-7] Goal Plan of Care Note [code = 17025-9] Goal Plan of Care Note [code = 52898-1] Goal Plan of Care Note [code = 47354-0] Goal Plan of Care Note [code = 26816-4] Goal Plan of Care Note [code = 24305-9] Encounters Start Date/Time End Date/Time Encounter Type Admission Type Attending Clinicians Care Facility Care Department Encounter ID Source 2025-05-08 08:15:00 2025-05-08 08:15:00 Nurse Visit Nurse, Ang Rmchp Rgv Cprit Obgyn Lesa Felipe Nurse, Dat Rmchp Rgv Cprit Obgyn [facility] PHOTOGRAMMETRY AIRPLANE PILOT [facility] MATERNAL & [facility] 1.2.840.114 350.1.13.10 4.2.7.2.686 [id number] [facility] 2025-04-14 08:10:00 2025-04-14 11:33:00 Emergency X HERMILO RICKS PHILLIP [facility] ERT [id number] [facility] 2025-03-08 21:35:00 2025-03-09 02:46:00 Emergency X DONI MARIE DONNELL [facility] ERT [id number] [facility] 2025-02-04 14:30:00 2025-02-04 16:26:04 Office Visit Pgy4 Kaye House Pgy4 [facility] 1.840.114 350.1.13.10 4.2.7.2.686 [id number] [facility] 2025-01-27 12:28:00 2025-01-27 13:54:00 Emergency X PATRICE HOLLAND [facility] ERT [id number] [facility] 2025-01-27 12:28:00 2025-01-27 13:54:00 Emergency Patrice Holland [facility] 1.840.114 350.1.13.10 4.2.7.2.686 [id number] [facility] 2025-01-19 00:00:00 2025-01-21 08:15:33 Telephone Pgy4 Pgy4 [facility] 1.2840.114 350.1.13.10 4.2.7.2.686 [id number] [facility] 2025-01-17 02:31:00 2025-01-17 04:24:00 Emergency X SELENE PARRA WAKILI [facility] ERT [id number] [facility] 2025-01-17 02:31:00 2025-01-17 04:24:00 Emergency Selene Parra [facility] 1.2.840.114 350.1.13.10 4.2.7.2.686 [id number] [facility] 2025-01-13 00:00:00 2025-01-16 10:06:01 Telephone Pgy4 Pgy4 [facility] [place] [facility]) 1.2.840.114 350.1.13.10 4.2.7.2.686 [id number] [facility] 2025-01-05 05:08:00 2025-01-05 09:45:00 Emergency X DONI MARIE DONNELL [facility] ERT [id number] [facility] 2025-01-05 05:08:00 2025-01-05 09:45:00 Emergency Hermilo Ricks Donnell [facility] 1.2.840.114 350.1.13.10 4.2.7.2.686 [id number] [facility] 2024-12-19 08:24:26 2024-12-19 08:24:26 Outpatient SFA [facility] [id number] Darryl Tyron Edilson 2024-12-18 15:04:52 2024-12-18 15:04:52 Outpatient SFA [facility] [id number] Darryl Tyron [place] 2024-12-17 23:56:00 2024-12-18 01:23:00 Emergency X GABY TERRY [facility] ERT [id number] [facility] 2024-12-17 23:56:00 2024-12-18 01:23:00 Emergency AdeGaby gray [facility] 1.2.840.114 350.1.13.10 4.2.7.2.686 [id number] [facility] 2024-12-18 00:00:00 2024-12-18 00:00:00 Outpatient Visit SFA [id number] Darryl Ackerman [place] 2024-12-12 11:22:49 2024-12-12 11:22:49 Outpatient SFA [facility] [id number] Darryl Ackerman [place] 2024-11-28 09:13:53 2024-11-28 09:13:53 Outpatient SFA [facility] [id number] Darryl Ackerman [place] 2024-11-28 00:00:00 2024-11-28 00:00:00 Outpatient Visit [facility] [id number] Darryl Ackerman [place] 2024-11-27 09:21:53 2024-11-27 09:21:53 Outpatient SFA [facility] [id number] Darryl Ackerman [place] 2024-11-27 00:00:00 2024-11-27 00:00:00 Outpatient Visit [facility]FA [id number] Darryl Ackerman [place] 2024-11-18 21:05:00 2024-11-18 22:48:00 Emergency X SELENE PARRA WAKILI [facility] ERT [id number] [facility] 2024-11-18 21:05:00 2024-11-18 22:48:00 Emergency Selene Parra [facility] 1.2.840.114 350.1.13.10 4.2.7.2.686 [id number] [facility] 2024-11-08 22:41:00 2024-11-09 00:01:00 Emergency X CHRISTY RG PAMALA [facility] ERT [id number] [facility] 2024-11-08 22:41:00 2024-11-09 00:01:00 Emergency Christy Rg [facility] 1.2.840.114 350.1.13.10 4.2.7.2.686 [id number] [facility] 2024-10-22 09:57:20 2024-10-22 09:57:20 Outpatient SFA [facility] [id number] Darryl Ackerman [place] 2024-10-22 00:00:00 2024-10-22 00:00:00 Outpatient Visit [facility] [id number] Darryl Ackerman [place] 2024-08-25 14:31:29 2024-08-25 14:31:29 Outpatient SFA [facility] [id number] Darryl Ackerman [place] 2024-08-25 00:00:00 2024-08-25 00:00:00 Outpatient Visit [facility] [id number] Darryl Ackerman [place] 2024-07-25 07:55:00 2024-07-25 10:46:00 Emergency X DONI MARIE DONNELL [facility] ERT [id number] [facility] 2024-07-25 07:55:00 2024-07-25 10:46:00 Emergency Doni Marie [facility] 1.2.840.114 350.1.13.10 4.2.7.2.686 [id number] [facility] 2024-07-09 15:24:23 2024-07-09 15:24:23 Outpatient SFA [facility] [id number] Darryl Ackerman [place] 2024-07-09 00:00:00 2024-07-09 00:00:00 Outpatient Visit [facility] [id number] Darryl Ackerman [place] 2024-07-04 02:23:00 2024-07-04 06:07:00 Emergency X SELENE PARRA WAKILI [facility] ERT [id number] [facility] 2024-07-04 02:23:00 2024-07-04 06:07:00 Emergency Selene Parra SDREGGIE AT [facility] 1.2.840.114 350.1.13.10 4.2.7.2.686 [id number] [facility] 2024-03-18 13:39:14 2024-03-18 13:39:14 Outpatient SFA [facility] [id number] Darryl Waggoner 2024-03-18 00:00:00 2024-03-18 00:00:00 Outpatient Visit [facility] [id number] Darryl Waggoner 2024-03-12 02:06:00 2024-03-12 06:07:00 Emergency X SELENE PARRA [facility] ERT [id number] [facility] 2024-03-12 02:06:00 2024-03-12 06:07:00 Emergency Selene Parra [facility] 1.2.840.114 350.1.13.10 4.2.7.2.686 [id number] [facility] 2024-03-06 11:34:36 2024-03-06 11:34:36 Outpatient SFA [facility] [id number] Darryl Waggoner 2024-03-06 00:00:00 2024-03-06 00:00:00 Outpatient Visit [facility] [id number] Darryl Waggoner 2024-02-03 03:57:00 2024-02-03 07:11:00 Emergency Selene Parra [facility] 1.2.840.114 350.1.13.10 4.2.7.2.686 [id number] [facility] 2024-01-01 22:28:00 2024-01-02 00:44:00 Emergency X DONI MARIE DONNELL [facility] ERT [id number] [facility] 2024-01-01 22:28:00 2024-01-02 00:44:00 Emergency Doni Marie [facility] 1.2.840.114 350.1.13.10 4.2.7.2.686 [id number] [facility] 2023-12-31 15:24:49 2023-12-31 15:24:49 Outpatient SFA [facility] [id number] Darryl Waggoner 2023-12-26 03:53:00 2023-12-26 05:24:00 Emergency X ANTONIETTABIJANDUSTY JAMESJOSE A [facility] ERT [id number] [facility] 2023-12-26 03:53:00 2023-12-26 05:24:00 Emergency Krysten Parraenrique Mcrae [facility] 1.2.840.114 350.1.13.10 4.2.7.2.686 [id number] [facility] 2023-12-17 08:09:17 2023-12-17 08:09:17 Outpatient SFA [facility] [id number] Darryl Waggoner 2023-11-20 06:45:00 2023-11-20 10:52:00 Emergency X DONI MARIE [facility] ERT [id number] [facility] 2023-11-20 06:45:00 2023-11-20 10:52:00 Emergency Doni Marie [facility] 1.2.840.114 350.1.13.10 4.2.7.2.686 [id number] [facility] 2023-11-14 13:08:33 2023-11-14 13:08:33 Outpatient SFA [facility] [id number] Darryl Waggoner 2023-11-12 00:13:00 2023-11-12 01:10:00 Emergency X CHAYO SRIVASTAVA [facility] ERT [id number] [facility] 2023-11-12 00:13:00 2023-11-12 01:10:00 Emergency Atif Chayo Perez [facility] 1.2.840.114 350.1.13.10 4.2.7.2.686 [id number] [facility] 2023-10-27 20:33:00 2023-10-27 20:58:00 Emergency X RUSTY Kavita [facility] ERT [id number] [facility] 2023-10-27 20:33:00 2023-10-27 20:58:00 Emergency RustyKavita Soledad [facility] 1.2.840.114 350.1.13.10 4.2.7.2.686 [id number] [facility] 2023-09-17 09:14:32 2023-09-17 09:14:32 Outpatient [facility] [id number] Darryl Waggoner 2023-09-08 18:32:00 2023-09-08 21:46:00 Emergency X CHRISTY RG [facility] ERT [id number] [facility] 2023-09-08 18:32:00 2023-09-08 21:46:00 Emergency Danie Ontiveros Pamala G [facility] 1.2.840.114 350.1.13.10 4.2.7.2.686 [id number] [facility] 2023-09-07 06:47:00 2023-09-07 08:22:00 Emergency X ATIFJULIRA [facility] ERT [id number] [facility] 2023-09-07 06:47:00 2023-09-07 08:22:00 Emergency Juli Srivastavara Perez [facility] 1.2.840.114 350.1.13.10 4.2.7.2.686 [id number] [facility] 2023-09-03 18:57:00 2023-09-03 22:03:00 Emergency X SELENE PARRA [facility] ERT [id number] [facility] 2023-09-03 18:57:00 2023-09-03 22:03:00 Emergency Selene Parra [facility] 1.2.840.114 350.1.13.10 4.2.7.2.686 [id number] [facility] 2023-08-28 16:44:07 2023-08-28 16:44:07 Outpatient [facility] [id number] Darryl Waggoner 2023-08-03 23:07:00 2023-08-04 01:08:00 Emergency X Kavita OJEDA [facility] ERT [id number] [facility] 2023-08-03 23:07:00 2023-08-04 01:08:00 Emergency Kavita Ojeda Soeldad [facility] 1.2.840.114 350.1.13.10 4.2.7.2.686 [id number] [facility] 2023-07-26 02:41:00 2023-07-26 04:25:00 Emergency X MEMO RESENDIZ [facility] ERT [id number] [facility] 2023-07-26 02:41:00 2023-07-26 04:25:00 Emergency Memo Resendiz [facility] 1.2.840.114 350.1.13.10 4.2.7.2.686 [id number] [facility] 2023-07-25 07:36:00 2023-07-25 10:13:00 Emergency X DANII ARRIAGA [facility] ERT [id number] [facility] 2023-07-25 07:36:00 2023-07-25 10:13:00 Emergency Schoenstein Rose Roxanne [facility] 1.2.840.114 350.1.13.10 4.2.7.2.686 [id number] [facility] 2023-07-24 08:14:55 2023-07-24 08:14:55 Outpatient [facility] [id number] Darryl Waggoner 2023-07-12 07:35:00 2023-07-12 09:00:00 Emergency X DONI MARIE [facility] ERT [id number] [facility] 2023-07-12 07:35:00 2023-07-12 09:00:00 Emergency Doni Marie [facility] 1.2.840.114 350.1.13.10 4.2.7.2.686 [id number] [facility] 2023-07-02 13:54:28 2023-07-02 13:54:28 Outpatient [facility] [id number] Darryl Waggoner 2023-06-26 13:20:40 2023-06-26 13:20:40 Outpatient [facility] [id number] Darryl Waggoner 2023-06-24 05:33:00 2023-06-24 06:50:00 Emergency X SELENE PARRA [facility] ERT [id number] [facility] 2023-06-24 05:33:00 2023-06-24 06:50:00 Emergency Selene Parra [facility] 1.2.840.114 350.1.13.10 4.2.7.2.686 [id number] [facility] 2023-06-20 16:08:31 2023-06-20 16:08:31 Outpatient [facility] [id number] Darryl Waggoner 2023-06-17 23:54:00 2023-06-18 01:35:00 Emergency X MICHELLE TERRY [facility] ERT [id number] [facility] 2023-06-17 23:54:00 2023-06-18 01:35:00 Emergency Michelle Terry [facility] 1.2.840.114 350.1.13.10 4.2.7.2.686 [id number] [facility] 2023-06-16 10:56:55 2023-06-16 10:56:55 Outpatient [facility] [id number] Darryl Waggoner 2023-06-14 13:35:05 2023-06-14 13:35:05 Outpatient [facility] [id number] Darryl Waggoner 2023-06-12 11:11:07 2023-06-12 11:11:07 Outpatient [facility] [id number] Darryl Waggoner 2023-06-11 23:25:00 2023-06-12 04:49:00 Emergency X LIEBERMAN RAVEN [facility] ERT [id number] [facility] 2023-06-11 23:25:00 2023-06-12 04:49:00 Emergency Luisana Raven [facility] 1.2.840.114 350.1.13.10 4.2.7.2.686 [id number] [facility] 2023-06-05 11:34:51 2023-06-05 11:34:51 Outpatient [facility] [id number] Darryl Waggoner 2023-05-28 08:05:43 2023-05-28 08:05:43 Outpatient [facility] 14 Darryl Ackerman [place] 2023-05-28 00:40:00 2023-05-28 04:06:00 Emergency X RAVEN LIEBERMAN [facility] ERT [id number] [facility] 2023-05-28 00:40:00 2023-05-28 04:06:00 Emergency Raven Lieberman [facility] 1.2.840.114 350.1.13.10 4.2.7.2.686 [id number] [facility] 2023-05-28 00:00:00 2023-05-28 00:00:00 Orders Only Doctor Unassigned, Olivia [facility] 1.2.840.114 350.1.13.10 4.2.7.2.686 [id number] [facility] 2023-04-30 13:49:49 2023-04-30 13:49:49 Outpatient [facility] [id number] Darryl Ackerman [place] 2023-04-23 08:52:34 2023-04-23 08:52:34 Outpatient [facility] [id number] Darryl Ackerman [place] 2023-03-06 22:52:00 2023-03-07 00:12:00 Emergency X HERMILO RICKS [facility] ERT [id number] [facility] 2023-03-06 22:52:00 2023-03-07 00:12:00 Emergency Hermilo [facility] 1.2.840.114 350.1.13.10 4.2.7.2.686 [id number] [facility] 2023-02-02 01:06:00 2023-02-02 02:49:00 Emergency X SELENE PARRA [facility] ERT [id number] [facility] 2023-02-02 01:06:00 2023-02-02 02:49:00 Emergency Selene Parra [facility] 1.2.840.114 350.1.13.10 4.2.7.2.686 [id number] [facility] 2023-02-02 00:00:00 2023-02-02 00:00:00 Orders Only Doctor Unassigned, Olivia [facility] 1.2.840.114 350.1.13.10 4.2.7.2.686 [id number] [facility] 2022-10-24 12:04:00 2022-10-24 15:45:00 Emergency X SURAJ SCOTT [facility] ERT [id number] [facility] 2022-10-24 12:04:00 2022-10-24 15:45:00 Emergency Suraj Scott [facility] 1.2.840.114 350.1.13.10 4.2.7.2.686 [id number] [facility] 2022-09-25 10:04:19 2022-09-25 10:04:19 Outpatient SFA [facility] [id number] Darryl Waggoner 2022-09-25 00:00:00 2022-09-25 00:00:00 Outpatient Visit [id number] 2022-07-21 07:49:00 2022-07-21 08:56:00 Emergency HERMILO OLSEN [facility] ERT [id number] [facility] 2022-07-21 07:49:00 2022-07-21 08:56:00 Emergency Hermilo Ricks [facility] 1.2.840.114 350.1.13.10 4.2.7.2.686 [id number] [facility] 2022-05-19 15:38:00 2022-05-19 17:24:00 Emergency CAT SCOTT [facility] ERT [id number] [facility] 2022-05-19 15:38:00 2022-05-19 17:24:00 Emergency Cat Rutledge [facility] 1.2.840.114 350.1.13.10 4.2.7.2.686 [id number] [facility] 2022-05-19 00:00:00 2022-05-19 00:00:00 Outpatient Visit [id number] 2022-05-13 02:08:00 2022-05-13 04:24:00 Emergency Selene Parra [facility] 1.2.840.114 350.1.13.10 4.2.7.2.686 [id number] [facility] 2022-05-13 02:08:00 2022-05-13 04:24:00 Emergency X SELENE PARRA [facility] ERT [id number] [facility] 2022-04-01 16:48:00 2022-04-01 18:39:00 Emergency X CHRISTY RG [facility] ERT [id number] [facility] 2022-04-01 16:48:00 2022-04-01 18:39:00 Emergency Christy Rg [facility] 1.2.840.114 350.1.13.10 4.2.7.2.686 [id number] [facility] 2022-04-01 00:00:00 2022-04-01 00:00:00 Orders Only Doctor Unassigned, Olivia [facility] 1.2.840.114 350.1.13.10 4.2.7.2.686 [id number] [facility] 2021-10-25 13:44:00 2021-10-25 15:25:00 Emergency X CRISTIAN TRANN [facility] ERT [id number] [facility] 2021-10-25 13:44:00 2021-10-25 15:25:00 Emergency Cristian Trann R [facility] 1.2.840.114 350.1.13.10 4.2.7.2.686 [id number] [id number] [facility] 2021-10-25 00:00:00 2021-10-25 00:00:00 Orders Only Doctor Unassigned, Olivia [facility] 1.2.840.114 350.1.13.10 4.2.7.2.686 [id number] [facility] 2021-05-03 17:49:00 2021-05-04 02:46:00 Emergency [facility] [id number] [facility] 2021-04-16 21:16:42 2021-04-22 13:04:00 Inpatient [facility] [id number] [facility] 2021-04-08 17:04:00 2021-04-08 17:04:00 Emergency X ROCHELLE GOLD [facility] ERT [id number] [facility] 2021-04-08 02:42:00 2021-04-08 02:42:00 Emergency X LISA TRAN [facility] ERT [id number] [facility] 2021-03-24 18:36:00 2021-03-24 18:36:00 Emergency X [facility] ERT [id number] [facility] Results Test Description Test [...] suspicious sclerotic or lytic osseous lesions.[facility] Test Item Value Reference Range Interpretation Comme nts LIPASE (test code = 5723558212) 62 U/L 0-220 Lab Interpretation (test cod e = 77895-1) Normal [facility] with [id number] 14:01:56* Test Item Value Reference Range Interpretation [...] g/dL 31.6-35.1 L RDW-SD (test code = 27807-9) 44.9 fL 39.0-49.9 RDW-CV (test code = 788-0) 16.6 % 12.0-15.5 H PLT (test code = 777-3) 327 166-358 MPV (test code = 25037-8) 9.7 fL 9.5-12.9 NRBC/100 WBC (test code = 0586653876) 0 0.0-10.0 NRBC x10^3 (test code = 7674184697) See_Comment [Automated messa ge] The system which generated this result transmitted reference range: 10*3/?L. The reference range was not used to interpret this result as normal/abnormal. GRAN MAT (NEUT) % (test code = 770-8) 56.4 % IMM GRAN % (test code = 3384867305) 0.2 % LYMPH % (test code = 736-9) 28.9 % MONO % (test code = 5905-5) 7.8 % EOS % (test code = 713-8) 6.2 % BASO % (test code = 706-2) 0.5 % GRAN MAT x10^3(ANC) (test code = 2397772701) 3.16 10*3/uL 1.88-7.09 IMM GRAN x10^3 (test code = 4996621774) 0.00-0.06 LYMPH x10^3 (test code = 731-0) 1.62 10*3/uL 1.32-3.29 MONO x10^3 (test code = 742-7) 0.44 10*3/uL 0.33-0.92 EOS x10^3 (test code = 711-2) 0.35 10*3/uL 0.03-0.39 BASO x10^3 (test code = 704-7) 0.03 10*3/uL 0.01-0.07 Lab Interpretation (test code = 78092-2) [facility] [id number] 05:13:32EXAM: US OVARY TORSION ORDERING PROVIDER: DONI MARIE HISTORY: 34 years-old Female; Provided indication: r/o ovarian torsion . LMP = 02/22/2025Pregnancy test = Negative. TECHNIQUE: Transabdominal and transvaginal ultrasound imaging and colorDoppler evaluation of the pelvis was performed. SpectralDoppler evaluationof the ovaries was performed. [employer] images were obtained for therecord. COMPARISON: Pelvic [...] A small volume of free fluid is present.[facility] [id number] 03:06:00* Test Item Value Reference Range Interpretation Comme nts POCT PREG (test code = 1605) Negative On board controls acceptable with C Line (test code = 3574) Yes POCT PREG LOT # (test code = 3575) [id number] POCT PREG TEST DATE ( test code = 3576) 2026-07-22 Lab Interpretation (test cod e = 77877-2) Normal [facility] [id number] 19:16:00* Test Item Value Reference Range Interpretation Comme nts POCT PREG (test code = 1605) Negative On board controls acceptable with C Line (test code = 3574) Yes POCT PREG LOT # (test code = 3575) POCT PREG TEST DATE ( test code = 3576) Lab Interpretation (test cod e = 29694-4) Normal [facility] Glucose(Age >30days)2025-01-27 18:50:00* Test Item Value Reference Range Interpretation Comme nts POCT Glu (age>30days) (test code = 3342) 81 mg/dL 70-110 Lab Interpretation (test cod e = 87076-5) Normal [facility] GLUCOSE (AUTOMATED)2025-01-27 18:48:29* Test Item Value Reference Range Interpretation Comme nts POCT GLU (test code = 3758797200) 81 mg/dL 70-110 Lab Interpretation (test cod e = 65100-5) Normal [facility] Abdomen pelvis w [id number] 08:59:03Examination: Computed tomography of the abdomen and [...] no suspicious lytic or blastic bony lesion. [facility] Pzygd6180-43-65 07:59:26* Test Item Value Reference Range Interpretation Comme nts NA (test code = 0525853373) 136 mmol/L 135-145 K (test code = 1928812911) 3.7 mmol/L 3.5-5.0 CL (test code = 5012456886) 108 mmol/L 98-108 CO2 TOTAL (test code = 0639365266) 18 mmol/L 23-31 L AGAP (test code = 3647924112) 10 2-16 BUN (test code = 6168852297) 6 mg/dL 7-23 L GLUCOSE (test code = 7426320466) 100 mg/dL 70-110 CREATININE (test code = 2160-0) 0.76 mg/dL 0.50-1.04 TOTAL BILI (test code = 1193265418) 0.3 mg/dL 0.1-1.1 CALCIUM (test code = 4084024118) 9.2 mg/dL 8.6-10.6 T PROTEIN (test code = 0807228231) 8.0 g/dL 6.3-8.2 ALBUMIN (test code = 0278767130) 4.7 g/dL 3.5-5.0 ALK PHOS (test code = 0970924338) 88 U/L 34-122 ALTv (test code = 1742-6) 15 U/L 5-35 AST(SGOT) (test code = 6406282498) 19 U/L 13-40 eGFR (test code = 98616-4) 106.3 mL/min/1.73m2 CKD-EPI eGFR (2020). Assuming creatinine has been stable day-to-day for at least three months, the eGFR indicates Category G1 (>= 90 mL/min/1.73 m2) Lab Interpretation (test code = 83263-7) Abnormal [facility] HospitalLipase, Usarz6025-02-23 07:59:26* Test Item Value Reference Range Interpretation Comme nts LIPASE (test code = 4962037574) 206 U/L 0-220 Lab Interpretation (test cod e = 95228-4) Normal [facility] HospitalCBC with Uscgifssdwqb9379-50-30 07:47:02* Test Item Value Reference Range Interpretation [...] g/dL 31.6-35.1 L RDW-SD (test code = 68867-2) 41.8 fL 39.0-49.9 RDW-CV (test code = 788-0) 15.8 % 12.0-15.5 H PLT (test code = 777-3) 391 166-358 H MPV (test code = 49672-7) 10.1 fL 9.5-12.9 NRBC/100 WBC (test code = 5008880937) 0.0 0.0-10.0 NRBC x10^3 (test code = 8070208177) See_Comment [Automated messa ge] The system which generated this result transmitted reference range: 10*3/?L. The reference range was not used to interpret this result as normal/abnormal. GRAN MAT (NEUT) % (test code = 770-8) 43.1 % IMM GRAN % (test code = 4750904884) 0.10 % LYMPH % (test code = 736-9) 43.8 % MONO % (test code = 5905-5) 9.1 % EOS % (test code = 713-8) 3.3 % BASO % (test code = 706-2) 0.6 % GRAN MAT x10^3(ANC) (test code = 4271115365) 3.34 10*3/uL 1.88-7.09 IMM GRAN x10^3 (test code = 0734357098) 0.00-0.06 LYMPH x10^3 (test code = 731-0) 3.40 10*3/uL 1.32-3.29 H MONO x10^3 (test code = 742-7) 0.71 10*3/uL 0.33-0.92 EOS x10^3 (test code = 711-2) 0.26 10*3/uL 0.03-0.39 BASO x10^3 (test code = 704-7) 0.05 10*3/uL 0.01-0.07 Lab Interpretation (test code = 20172-2) Abnormal [facility] HospitalPOMT [id number] 07:32:00* Test Item Value Reference Range Interpretation Comme nts POCT PREG (test code = 1605) Negative On board controls acceptable with C Line (test code = 3574) Yes POCT PREG LOT # (test code = 3575) 297075 POCT PREG TEST DATE ( test code = 3576) Lab Interpretation (test cod e = 65191-9) Normal [facility] Abdomen pelvis w vnsswqwl9883-26-58 13:55:36EXAM: CT ABDOMEN PELVIS W CONTRAST 01/05/2025 [...] BONES AND SOFT TISSUES: No aggressive bone lesions.[facility] POCT [id number] 11:58:00* Test Item Value Reference Range Interpretation Comme nts POCT PREG (test code = 1605) Negative On board controls acceptable with C Line (test code = 3574) Yes POCT PREG LOT # (test code = 3575) [id number] POCT PREG TEST DATE ( test code = 3576) 0472876 Lab Interpretation (test cod e = 22426-4) Normal [facility] HospitalComp. Metabolic Panel (42353)2025-01-05 10:57:03* Test Item Value Reference Range Interpretation Comme nts NA (test code = 5500740271) 137 mmol/L 135-145 K (test code = 8016915440) 3.7 mmol/L 3.5-5.0 CL (test code = 5058962829) 107 mmol/L 98-108 CO2 TOTAL (test code = 9510379493) 19 mmol/L 23-31 L AGAP (test code = 3938753389) 11 2-16 BUN (test code = 4230731979) 2 mg/dL 7-23 L GLUCOSE (test code = 1435110921) 114 mg/dL 70-110 H CREATININE (test code = 2160-0) 0.89 mg/dL 0.50-1.04 TOTAL BILI (test code = 3326471682) 0.3 mg/dL 0.1-1.1 CALCIUM (test code = 9647561007) 9.4 mg/dL 8.6-10.6 T PROTEIN (test code = 9567465979) 7.5 g/dL 6.3-8.2 ALBUMIN (test code = 0150455477) 4.3 g/dL 3.5-5.0 ALK PHOS (test code = 9808997221) 88 U/L 34-122 ALTv (test code = 1742-6) 21 U/L 5-35 AST(SGOT) (test code = 4671340084) 27 U/L 13-40 eGFR (test code = 03989-7) 87.9 mL/min/1.73m2 CKD-EPI eGFR (2020). Assuming creatinine has been stable day-to-day for at least three months, the eGFR indicates Category G2 (60 - 89 mL/min/1.73 m2) Lab Interpretation (test code = 21235-8) Abnormal [facility] HospitalXR Chest 1 [id number] 10:54:58Study: Single view chest. Ordering Physician: RAFAEL RICKS Date: 01/05/2025 5:15 AM History:Shortness of breath, chest pain, tachycardia COMPARISON: None. Findings: Single frontal view chest demonstrates a normal heart size. Thelungs are clear without infiltrate, pleural effusion or pneumothorax.Noacute osseous abnormality is identified.[facility] HospitalCb with Apyb9095-66-87 10:39:44 * Test Item Value Reference Range [...] g/dL 31.6-35.1 L RDW-SD (test code = 17255-8) 44.0 fL 39.0-49.9 RDW-CV (test code = 788-0) 16.2 % 12.0-15.5 H PLT (test code = 777-3) 400 166-358 H MPV (test code = 14282-5) 9.7 fL 9.5-12.9 NRBC/100 WBC (test code = 7383600484) 0.0 0.0-10.0 NRBC x10^3 (test code = 0960441540) See_Comment [Automated messa ge] The system which generated this result transmitted reference range: 10*3/?L. The reference range was not used to interpret this result as normal/abnormal. GRAN MAT (NEUT) % (test code = 770-8) 70.3 % IMM GRAN % (test code = 3450929403) 0.20 % LYMPH % (test code = 736-9) 16.6 % MONO % (test code = 5905-5) 8.0 % EOS % (test code = 713-8) 4.5 % BASO % (test code = 706-2) 0.4 % GRAN MAT x10^3(ANC) (test code = 4149327166) 5.79 10*3/uL 1.88-7.09 IMM GRAN x10^3 (test code = 9435365940) 0.00-0.06 LYMPH x10^3 (test code = 731-0) 1.37 10*3/uL 1.32-3.29 MONO x10^3 (test code = 742-7) 0.66 10*3/uL 0.33-0.92 EOS x10^3 (test code = 711-2) 0.37 10*3/uL 0.03-0.39 BASO x10^3 (test code = 704-7) 0.03 10*3/uL 0.01-0.07 Lab Interpretation (test code = 90142-4) [facility] [id number] 06:15:00* Test Item Value Reference Range Interpretation Comme nts POCT PREG (test code = 1605) Negative On board controls acceptable with C Line (test code = 3574) Yes POCT PREG LOT # (test code = 3575) 165590 POCT PREG TEST DATE ( test code = 3576) 03/09/26 Lab Interpretation (test cod e = 97828-4) Normal [facility] HospitalPAP TEST, THINPREP, IMAGED AND HPV HIGH RISK WITH [id number] 00:00:00* Test Item Value Reference Range Interpretation Comme nts SOURCE: (test code = 8001) Unspecified SLIDES: (test code = 8011) 1 LMP: (test code = 8021) NOT GIVEN SPECIMEN ADEQUACY: (test code = 38528) (NOTE) INTERPRETATION: (test code = 17514) NILM/NO EPITH. ABNORMALITY;SEE BELOW [employer] STE[employer] WORK SUPERVISOR: (test code = 8101) SE LOYOLA,CT(ASCP)IAC QC TECHNOLOGIST: (test code = 8111) Samy MedranoCT(ASCP) LOCATION: (test code = 87096) (NOTE) CPT: (test code = 8140) 96105 HPV HIGH RISK INTERP (test code = 98310) POSITIVE HPV 16 (test code = 78726) NEGATIVE HPV 18 (test code = 05916) NEGATIVE HPV, HR, OTHER GENOTYPES (test code = 70992) POSITIVE PDFE (test code = PDFReport) PDF Darryl F AustinXR ABDOMEN ACUTE [id number] 14:50:35EXAM: XR ABDOMEN ACUTE SERIES COMPARISON: Abdominal [...] stones identified. No acute bony abnormality is present.[facility] 2024-[facility]-25 13:23:00* Test Item Value Reference Range Interpretation Comme nts POCT PREG (test code = 1605) Negative On board controls acceptable with C Line (test code = 3574) Yes POCT PREG LOT # (test code = 3575) 253698 POCT PREG TEST DATE ( test code = 3576) 10/20/2025 Lab Interpretation (test cod e = 57106-3) Normal [facility] ABDOMEN PELVIS W [id number] 09:44:53Examination: Computed tomography of the abdomen and [...] show no suspicious lytic or blastic bony lesion.[facility] HospitalPOCT Rjls5913-09-73 07:36:00 * Test Item Value Reference Range Interpretation Comme [facility] POCT PREG (test code = 1605) Negative On board controls acceptable with C Line (test code = 3574) Yes POCT PREG LOT # (test code = 3575) 360929 POCT PREG TEST DATE ( test code = 3576) 07/24/2025 Lab Interpretation (test cod e = 07773-1) Normal [facility] ABDOMEN PELVIS W [id number] 10:12:02Examination: Computed tomography of the abdomen and [...] show no suspicious lytic or blastic bony lesion.[facility]. Metabolic Panel (20004)2024-03-12 09:27:38* Test Item Value Reference Range Interpretation Comme nts NA (test code = 3674571620) 137 mmol/L 135-145 K (test code = 7638740491) 3.8 mmol/L 3.5-5.0 CL (test code = 3875318964) 107 mmol/L 98-108 CO2 TOTAL (test code = 1055624577) 20 mmol/L 23-31 L AGAP (test code = 9675045522) 10 2-16 BUN (test code = 5006560887) 6 mg/dL 7-23 L GLUCOSE (test code = 0360462832) 94 mg/dL 70-110 CREATININE (test code = 2160-0) 0.83 mg/dL 0.50-1.04 TOTAL BILI (test code = 7831269122) 0.4 mg/dL 0.1-1.1 CALCIUM (test code = 1950718342) 9.2 mg/dL 8.6-10.6 T PROTEIN (test code = 5902486743) 7.6 g/dL 6.3-8.2 ALBUMIN (test code = 1303640531) 4.2 g/dL 3.5-5.0 ALK PHOS (test code = 3622680159) 73 U/L 34-122 ALTv (test code = 1742-6) 18 U/L 5-35 AST(SGOT) (test code = 6234818283) 24 U/L 13-40 eGFR (test code = 71574-9) 96.2 mL/min/1.73m2 CKD-EPI eGFR (2020). Assuming creatinine has been stable day-to-day for at least three months, the eGFR indicates Category G1 (>= 90 mL/min/1.73 m2) Lab Interpretation (test code = 40288-1) Abnormal [facility] HospitalLipase2024-05-29 09:26:57* Test Item Value Reference Range Interpretation Comme nts LIPASE (test code = 5438001141) 108 U/L 0-220 Lab Interpretation (test cod e = 76425-2) Normal [facility] with Qmso6865-91-90 09:13:56* Test Item Value Reference Range Interpretation [...] g/dL 31.6-35.1 L RDW-SD (test code = 85526-7) 42.4 fL 39.0-49.9 RDW-CV (test code = 788-0) 15.7 % 12.0-15.5 H PLT (test code = 777-3) 346 166-358 MPV (test code = 44762-5) 9.8 fL 9.5-12.9 NRBC/100 WBC (test code = 6838525783) 0.0 0.0-10.0 NRBC x10^3 (test code = 9492464439) See_Comment [Automated Atmosferiqa ge] The system which generated this result transmitted reference range: 10*3/?L. The reference range was not used to interpret this result as normal/abnormal. GRAN MAT (NEUT) % (test code = 770-8) 43.3 % IMM GRAN % (test code = 2818927806) 0.30 % LYMPH % (test code = 736-9) 42.6 % MONO % (test code = 5905-5) 7.5 % EOS % (test code = 713-8) 5.5 % BASO % (test code = 706-2) 0.8 % GRAN MAT x10^3(ANC) (test code = 1512013882) 3.21 10*3/uL 1.88-7.09 IMM GRAN x10^3 (test code = 6847661301) 0.00-0.06 LYMPH x10^3 (test code = 731-0) 3.16 10*3/uL 1.32-3.29 MONO x10^3 (test code = 742-7) 0.56 10*3/uL 0.33-0.92 EOS x10^3 (test code = 711-2) 0.41 10*3/uL 0.03-0.39 H BASO x10^3 (test code = 704-7) 0.06 10*3/uL 0.01-0.07 Lab Interpretation (test code = 79573-8) Abnormal [facility] HospitalEBV-Mononucleosis Qozvru5410-46-39 11:45:15* Test Item Value Reference Range Interpretation Comme nts EBV Mononucleosis Screen (te st code = 5865674050) Negative Negative Lab Interpretation (test cod e = 01118-6) Normal [facility] HospitalCT ABDOMEN PELVIS W [id number] 10:26:21ORDERING PHYSICIAN: SELENE PARRA CLINICAL HISTORY: Abdominal [...] the pelvis. Appendixis normal. The bones are unremarkable.[facility] HospitalPOCT Hlvu1867-30-26 09:09:00* Test Item Value Reference Range Interpretation Comme [facility] POCT PREG (test code = 1605) Negative On board controls acceptable with C Line (test code = 3574) Yes POCT PREG LOT # (test code = 3575) 498526 POCT PREG TEST DATE ( test code = 3576) 11/21/2024 Lab Interpretation (test cod e = 07763-3) Normal [facility] Hospital[facility] PATHOLOG[facility] [id number] 09:50:51* Test Item Value Reference Range Interpretation Comme [facility] DIAGNOSIS: (test code = 8200) (NOTE) A) Conization (L EEP) - EctocervixHigh grade squamous intraepithelial lesion (CIN2), extendingfocally to endocervical and ectocervical/stromal margins. B) Conization (LEEP) - EndocervixFocal high grade squamous intraepithelial lesion (CIN2).Surgical margins negative for dysplasia. COMMENTS: (test code = 8205) (NOTE) The previously r eported abnormal Pap (accession # [id number]) isreviewed. The biopsy material more clearly displays [...] TanNUMBER OF TISSUE PIECES: 2SUBMITTED IN CASSETTE(S): [id number]: FormalinCOMMENTS:Consists of a 1.9x1.1x0.5 cm irregularly shaped [...] TanNUMBER OF TISSUE PIECES: 1SUBMITTED IN CASSETTE(S): [id number]: FormalinCOMMENTS:Thurmond shaped rubbery tissue fragment partially surfaced bytan-white ectocervix. Os is inked blue by clinician. Endocervicalmargin inked blue. All remaining margins inked orange. Radiallysectioned x 9 and entirely submitted. Specimen fell apart uponsectioning. PATHOLOGIST: (test code = 8250) (NOTE) Heide Shipley MD, Board-certified Anatomic and ClinicalPathology, Hematopathology Specimens processed and interpreted at [facility], [address] [place] [address], , CLIA: [id number] CPT: (test code = 8400) (NOTE) 53439i4 UNLESS O THERWISE INDICATED, ALL TESTING PERFORMED AT [employer] [facility] [employer] [address] [place] [address] EMBROIDERY OPERATOR: ANIBAL PAREDES M.D. CLIA NUMBER [id number] [facility] [place]. [id number] SURGICAL PATHOLOGY [id number] 00:00:00* Test Item Value Reference Range Interpretation [...] = PDFReport) PDF Darryl Ackerman AustinSURGICAL PATHOLOGY [id number] 00:00:00* Test Item Value Reference Range Interpretation [...] = PDFReport) PDF Darryl Ackerman AustinSURGICAL PATHOLOGY [id number] 00:00:00* Test Item Value Reference Range Interpretation [...] = PDFReport) PDF Darryl Ackerman AustinSURGICAL PATHOLOGY [id number] 00:00:00* Test Item Value Reference Range Interpretation [...] = PDFReport) PDF Darryl Ackerman AustinSURGICAL PATHOLOGY [id number] 00:00:00* Test Item Value Reference Range Interpretation Comme nts DIAGNOSIS: (test code = 8200) (NOTE) COMMENTS: (test code = 8205) (NOTE) MICROSCOPIC DESCRIPTION: (te st code = 8210) (NOTE) CLINICAL DATA: (test code = 8401) (NOTE) GROSS DESCRIPTION: (test code = 8220) (NOTE) PATHOLOGIST: (test code = 8250) (NOTE) CPT: (test code = 8400) (NOTE) PDFE (test code = PDFReport) PDF Darryl Ackerman [place] [facility] [id number] 00:00:00* Test Item Value Reference Range Interpretation Comme nts DIAGNOSIS: (test code = 8200) (NOTE) COMMENTS: (test code = 8205) (NOTE) MICROSCOPIC DESCRIPTION: (te st code = 8210) (NOTE) CLINICAL DATA: (test code = 8401) (NOTE) GROSS DESCRIPTION: (test code = 8220) (NOTE) PATHOLOGIST: (test code = 8250) (NOTE) CPT: (test code = 8400) (NOTE) PDFE (test code = PDFReport) PDF Darryl Ackerman [facility] PATH[facility] [id number] 00:00:00* Test Item Value Reference Range Interpretation [...] = PDFReport) PDF Darryl Ackerman AustinSURGICAL PATHOLOGY [id number] 00:00:00* Test Item Value Reference Range Interpretation [...] code = PDFReport) PDF Darryl Chang OVARY [id number] 16:27:21EXAM: US OVARY TORSION HISTORY: 32 years [...] None [place]: Trace volume free fluid is present.[facility] HospitalCT [facility]BDOM[facility] PELVIS W [id number] 15:15:04EXAM: CT ABDOMEN PELVIS W CONTRAST HISTORY: [...] No suspicious lytic or sclerotic bony lesions arepresent.[facility]. METABOLIC PANEL (49097)2023-11-20 14:09:45* Test Item Value Reference Range Interpretation Comme nts NA (test code = 5307461260) 135 mmol/L 135-145 K (test code = 9684906549) 4.1 mmol/L 3.5-5.0 CL (test code = 6099616485) 112 mmol/L 98-108 H CO2 TOTAL (test code = 7075602601) 17 mmol/L 23-31 L AGAP (test code = 5561644470) 6 2-16 BUN (test code = 9346483873) 10 mg/dL 7-23 GLUCOSE (test code = 8334997034) 95 mg/dL 70-110 CREATININE (test code = 6946678650) 0.72 mg/dL 0.50-1.04 TOTAL BILI (test code = 7933529637) 0.2 mg/dL 0.1-1.1 CALCIUM (test code = 4336624650) 9.0 mg/dL 8.6-10.6 T PROTEIN (test code = 2276228121) 7.6 g/dL 6.3-8.2 ALBUMIN (test code = 3020424866) 4.3 g/dL 3.5-5.0 ALK PHOS (test code = 9477730437) 81 U/L 34-122 ALTv (test code = 1742-6) 23 U/L 5-35 AST(SGOT) (test code = 1902501876) 26 U/L 13-40 eGFR (test code = 85130-4) 114.8 mL/min/1.73m2 CKD-EPI eGFR (2020). Assuming creatinine has been stable day-to-day for at least three months, the eGFR indicates Category G1 (>= 90 mL/min/1.73 m2) Lab Interpretation (test code = 61435-6) [facility] WITH [id number] 13:53:43* Test Item Value Reference Range Interpretation [...] g/dL 31.6-35.1 L RDW-SD (test code = 30438-8) 42.6 fL 39.0-49.9 RDW-CV (test code = 788-0) 15.5 % 12.0-15.5 PLT (test code = 777-3) 364 166-358 H MPV (test code = 59783-5) 10.0 fL 9.5-12.9 NRBC/100 WBC (test code = 6845562454) 0.0 0.0-10.0 NRBC x10^3 (test code = 2851980642) See_Comment [Automated messa ge] The system which generated this result transmitted reference range: 10*3/?L. The reference range was not used to interpret this result as normal/abnormal. GRAN MAT (NEUT) % (test code = 770-8) 59.8 % IMM GRAN % (test code = 4170349436) 0.30 % LYMPH % (test code = 736-9) 27.8 % MONO % (test code = 5905-5) 9.2 % EOS % (test code = 713-8) 2.1 % BASO % (test code = 706-2) 0.8 % GRAN MAT x10^3(ANC) (test code = 6071903150) 3.70 10*3/uL 1.88-7.09 IMM GRAN x10^3 (test code = 8845089489) 0.00-0.06 LYMPH x10^3 (test code = 731-0) 1.72 10*3/uL 1.32-3.29 MONO x10^3 (test code = 742-7) 0.57 10*3/uL 0.33-0.92 EOS x10^3 (test code = 711-2) 0.13 10*3/uL 0.03-0.39 BASO x10^3 (test code = 704-7) 0.05 10*3/uL 0.01-0.07 Lab Interpretation (test code = 10524-1) Abnormal [facility] [id number] 13:26:00* Test Item Value Reference Range Interpretation Comme nts POCT PREG (test code = 1605) Negative On board controls acceptable with C Line (test code = 3574) Yes POCT PREG LOT # (test code = 3575) 765549 POCT PREG TEST DATE ( test code = 3576) 01/20/2025 Lab Interpretation (test cod e = 62103-7) Normal [facility] [id number] 13:28:00* Test Item Value Reference Range Interpretation Comme nts POCT PREG (test code = 1605) Negative On board controls acceptable with C Line (test code = 3574) Yes POCT PREG LOT # (test code = 3575) 571785 POCT PREG TEST DATE ( test code = 3576) 12/23/2024 Lab Interpretation (test cod e = 51855-1) Normal [facility] HospitalCT/NG, NAAT, [id number] 18:43:32* Test Item Value Reference Range Interpretation Comme nts CHLAMYDIA, NAAT, URINE (test code = 06822) NEGATIVE NEGATIVE Testing is perfo rmed with Lucie HARRY 6800/8800 systems usingreal-time polymerase chain reaction (PCR) method. A negative result does not exclude low level infection, specimensampling error, or collection error. GONORRHEA, NAAT, URINE (test code = 09119) NEGATIVE NEGATIVE Testing is perfo rmed with Lucie HARRY 6800/8800 systems usingreal-time polymerase chain reaction (PCR) method. A negative result does not exclude low level infection, specimensampling error, or collection error. UNLESS OTHERWISE INDICATED, ALL TESTING PERFORMED AT [facility], [facility]. [address] [place] [address] EMBROIDERY OPERATOR: ANIBAL PAREDES M.D. [place] NUMBER [id number] [facility] [place]. [id number] TRICHOMONAS, NAAT, [id number] 16:46:16* Test Item Value Reference Range Interpretation Comme nts TRICHOMONAS, NAAT, URINE (test code = 96978) NEGATIVE NEGATIVE Testing is perfo rmed with Lucie HARRY 6800/8800 method usingreal-time polymerase chain reaction (PCR) method. A negative result does not exclude low level infection, specimensampling error, or collection error. TRICHOMONAS, URINE, [id number] 00:00:00* Test Item Value Reference Range Interpretation Comme nts TRICHOMONAS, NAAT, URINE (te st code = 28918) NEGATIVE Darryl F AustinCT/NG, TMA, [id number] 00:00:00* Test Item Value Reference Range Interpretation Comme nts CHLAMYDIA, NAAT, URINE (test code = 06290) NEGATIVE GONORRHEA, NAAT, URINE (test code = 11739) NEGATIVE Darryl F AustinTRICHOMONAS, URINE, [id number] 00:00:00* Test Item Value Reference Range Interpretation Comme nts TRICHOMONAS, NAAT, URINE (te st code = 07553) NEGATIVE Darryl F AustinCT/NG, TMA, [id number] 00:00:00* Test Item Value Reference Range Interpretation Comme nts CHLAMYDIA, NAAT, URINE (test code = 82547) NEGATIVE GONORRHEA, NAAT, URINE (test code = 73775) NEGATIVE Darryl F AustinTRICHOMONAS, URINE, [id number] 00:00:00* Test Item Value Reference Range Interpretation Comme nts TRICHOMONAS, NAAT, URINE (te st code = 05056) NEGATIVE Darryl F AustinCT/NG, TMA, [id number] 00:00:00* Test Item Value Reference Range Interpretation Comme nts CHLAMYDIA, NAAT, URINE (test code = 81357) NEGATIVE GONORRHEA, NAAT, URINE (test code = 64008) NEGATIVE Darryl F AustinTRICHOMONAS, URINE, [id number] 00:00:00* Test Item Value Reference Range Interpretation Comme nts TRICHOMONAS, NAAT, URINE (te st code = 66550) NEGATIVE Darryl F AustinCT/NG, TMA, [id number] 00:00:00* Test Item Value Reference Range Interpretation Comme nts CHLAMYDIA, NAAT, URINE (test code = 95174) NEGATIVE GONORRHEA, NAAT, URINE (test code = 82446) NEGATIVE Darryl F AustinTRICHOMONAS, URINE, [id number] 00:00:00* Test Item Value Reference Range Interpretation Comme nts TRICHOMONAS, NAAT, URINE (te st code = 07790) NEGATIVE Darryl F AustinCT/NG, TMA, [id number] 00:00:00* Test Item Value Reference Range Interpretation Comme nts CHLAMYDIA, NAAT, URINE (test code = 43771) NEGATIVE GONORRHEA, NAAT, URINE (test code = 81885) NEGATIVE Darryl F AustinTRICHOMONAS, URINE, [id number] 00:00:00* Test Item Value Reference Range Interpretation Comme nts TRICHOMONAS, NAAT, URINE (te st code = 72023) NEGATIVE Darryl F AustinCT/NG, TMA, [id number] 00:00:00* Test Item Value Reference Range Interpretation Comme nts CHLAMYDIA, NAAT, URINE (test code = 95016) NEGATIVE GONORRHEA, NAAT, URINE (test code = 96141) NEGATIVE Darryl Ackerman AustinTRICHOMONAS, URINE, [id number] 00:00:00* Test Item Value Reference Range Interpretation Comme nts TRICHOMONAS, NAAT, URINE (te st code = 96544) NEGATIVE Darryl F AustinCT/NG, TMA, [id number] 00:00:00* Test Item Value Reference Range Interpretation Comme nts CHLAMYDIA, NAAT, URINE (test code = 76266) NEGATIVE GONORRHEA, NAAT, URINE (test code = 67560) NEGATIVE Darryl F AustinTRICHOMONAS, URINE, [id number] 00:00:00* Test Item Value Reference Range Interpretation Comme nts TRICHOMONAS, NAAT, URINE (te st code = 38478) NEGATIVE Darryl F AustinCT/NG, TMA, [id number] 00:00:00* Test Item Value Reference Range Interpretation Comme nts CHLAMYDIA, NAAT, URINE (test code = 94607) NEGATIVE GONORRHEA, NAAT, URINE (test code = 21348) NEGATIVE Darryl Ackerman AustinPOCT [id number] 12:56:00* Test Item Value Reference Range Interpretation Comme nts POCT PREG (test code = 1605) Negative On board controls acceptable with C Line (test code = 3574) Yes POCT PREG LOT # (test code = 3575) [facility] [place] [id number] POCT PREG TEST DATE (test code = 3576) 12/12/2024 Lab Interpretation (test cod e = 86424-0) [facility] [id number] 10:24:44* Test Item Value Reference Range Interpretation Comments DIAGNOSIS: (test code = 8200) (NOTE) E) Biopsy - Cerv ix 5:00-6:00High-grade squamous intraepithelial lesion (GISLELE 2). F) Biopsy - Cervix 8:00Low-grade squamous [...] TanNUMBER OF TISSUE PIECES: 1SUBMITTED IN CASSETTE(S): [id number]: FormalinCOMMENTS:Entirely submitted intact. F) SPECIMEN LABELED: Cervix 8:00SIZE/WEIGHT: 0.2x0.1x0.1 cm SPECIMEN COLOR: TanNUMBER OF TISSUE PIECES: 1SUBMITTED IN CASSETTE(S): [id number]: FormalinCOMMENTS:Entirely submitted intact. A) SPECIMEN LABELED: EndometriumSIZE/WEIGHT: 1.4x1.3x0.2 cm AggregateSPECIMEN COLOR: TanNUMBER OF TISSUE PIECES: multipleSUBMITTED IN CASSETTE(S): [id number]: FormalinCOMMENTS:Filtered and entirely submitted. B) SPECIMEN LABELED: EndocervixSIZE/WEIGHT: 1.7x1.5x0.3 cm AggregateSPECIMEN COLOR: TanNUMBER OF TISSUE PIECES: multipleSUBMITTED IN CASSETTE(S): [id number]: FormalinCOMMENTS:Filtered and entirely submitted. C) SPECIMEN LABELED: Cervix 1:00SIZE/WEIGHT: 0.4x0.3x0.1 cm SPECIMEN COLOR: TanNUMBER OF TISSUE PIECES: 1SUBMITTED IN CASSETTE(S): [id number]: FormalinCOMMENTS:Entirely submitted intact. D) SPECIMEN LABELED: Cervix 3:00SIZE/WEIGHT: 0.2x0.2x0.1 cm SPECIMEN COLOR: TanNUMBER OF TISSUE PIECES: 1SUBMITTED IN CASSETTE(S): [id number]: FormalinCOMMENTS:Entirely submitted intact. PATHOLOGIST: (test code = 8250) (NOTE) Giat Morocho M.D., P h.D., Board Certified in Anatomic and ClinicalPathology, Cytopathology Specimens processed and interpreted at [facility], [address] [place] [address], , CLIA: [id number] CPT: (test code = 8400) (NOTE) [id number] UNLESS O THERWISE INDICATED, ALL TESTING PERFORMED AT [facility]. [address] [place] [address] EMBROIDERY OPERATOR: ANIBAL PAREDES M.D. CLIA NUMBER [id number] [facility] [place]. [id number] SURGICAL PATHOLOGY [id number] 00:00:00* Test Item Value Reference Range Interpretation Comme nts DIAGNOSIS: (test code = 8200) (NOTE) MICROSCOPIC DESCRIPTION: (te st code = 8210) (NOTE) CLINICAL DATA: (test code = 8401) (NOTE) GROSS DESCRIPTION: (test code = 8220) (NOTE) PATHOLOGIST: (test code = 8250) (NOTE) CPT: (test code = 8400) (NOTE) PDFE (test code = PDFReport) PDF Darryl Ackerman AustinSURGICAL PATHOLOGY [id number] 00:00:00* Test Item Value Reference Range Interpretation Comme nts DIAGNOSIS: (test code = 8200) (NOTE) MICROSCOPIC DESCRIPTION: (te st code = 8210) (NOTE) CLINICAL DATA: (test code = 8401) (NOTE) GROSS DESCRIPTION: (test code = 8220) (NOTE) PATHOLOGIST: (test code = 8250) (NOTE) CPT: (test code = 8400) (NOTE) PDFE (test code = PDFReport) PDF Darryl Ackerman AustinSURGICAL PATHOLOGY [id number] 00:00:00* Test Item Value Reference Range Interpretation Comme nts DIAGNOSIS: (test code = 8200) (NOTE) MICROSCOPIC DESCRIPTION: (te st code = 8210) (NOTE) CLINICAL DATA: (test code = 8401) (NOTE) GROSS DESCRIPTION: (test code = 8220) (NOTE) PATHOLOGIST: (test code = 8250) (NOTE) CPT: (test code = 8400) (NOTE) PDFE (test code = PDFReport) PDF [facility]erman [facility] [id number] 00:00:00* Test Item Value Reference Range Interpretation Comme nts DIAGNOSIS: (test code = 8200) (NOTE) MICROSCOPIC DESCRIPTION: (te st code = 8210) (NOTE) CLINICAL DATA: (test code = 8401) (NOTE) GROSS DESCRIPTION: (test code = 8220) (NOTE) PATHOLOGIST: (test code = 8250) (NOTE) CPT: (test code = 8400) (NOTE) PDFE (test code = PDFReport) PDF [facility]erman [facility] [id number] 00:00:00* Test Item Value Reference Range Interpretation Comme nts DIAGNOSIS: (test code = 8200) (NOTE) MICROSCOPIC DESCRIPTION: (te st code = 8210) (NOTE) CLINICAL DATA: (test code = 8401) (NOTE) GROSS DESCRIPTION: (test code = 8220) (NOTE) PATHOLOGIST: (test code = 8250) (NOTE) CPT: (test code = 8400) (NOTE) PDFE (test code = PDFReport) PDF [facility]ryl [facility]ckerman [facility] [id number] 00:00:00* Test Item Value Reference Range Interpretation Comme nts DIAGNOSIS: (test code = 8200) (NOTE) MICROSCOPIC DESCRIPTION: (te st code = 8210) (NOTE) CLINICAL DATA: (test code = 8401) (NOTE) GROSS DESCRIPTION: (test code = 8220) (NOTE) PATHOLOGIST: (test code = 8250) (NOTE) CPT: (test code = 8400) (NOTE) PDFE (test code = PDFReport) PDF Darryl Ackerman [facility] [id number] 00:00:00* Test Item Value Reference Range Interpretation Comme nts DIAGNOSIS: (test code = 8200) (NOTE) MICROSCOPIC DESCRIPTION: (te st code = 8210) (NOTE) CLINICAL DATA: (test code = 8401) (NOTE) GROSS DESCRIPTION: (test code = 8220) (NOTE) PATHOLOGIST: (test code = 8250) (NOTE) CPT: (test code = 8400) (NOTE) PDFE (test code = PDFReport) PDF Darryl Ackerman AustinSURGICAL PATHOLOGY [id number] 00:00:00* Test Item Value Reference Range Interpretation Comme nts DIAGNOSIS: (test code = 8200) (NOTE) MICROSCOPIC DESCRIPTION: (te st code = 8210) (NOTE) CLINICAL DATA: (test code = 8401) (NOTE) GROSS DESCRIPTION: (test code = 8220) (NOTE) PATHOLOGIST: (test code = 8250) (NOTE) CPT: (test code = 8400) (NOTE) PDFE (test code = PDFReport) PDF Darryl Ackerman AustinVAGINAL PATHOGENS DNA [id number] 13:41:36* Test Item Value Reference Range Interpretation Comme nts JAZ SPECIES (test code = 82308) NEGATIVE NEGATIVE G. VAGINALIS (test code = 26069) NEGATIVE NEGATIVE T. VAGINALIS (test code = 38694) NEGATIVE NEGATIVE Note: [facility] VPIII Microbial Identification Testis a DNA probe test intended for use in the detectionand identification of Jaz species, Gardnerellavaginalis and Trichomonas vaginalis nucleic acid. UNLESS OTHERWISE INDICATED, ALL TESTING PERFORMED AT [facility] [address] [place] [address] EMBROIDERY OPERATOR: ANIBAL PAREDES M.D. IA NUMBER [id number] [facility] [place]. [id number] VAGINAL PATHOGENS DNA [id number] 00:00:00* Test Item Value Reference Range Interpretation Comme nts JAZ SPECIES (test code = 45930) NEGATIVE G. VAGINALIS (test code = 22881) NEGATIVE T. VAGINALIS (test code = 33072) NEGATIVE Darryl Ackerman AustinVAGINAL PATHOGENS DNA [id number] 00:00:00* Test Item Value Reference Range Interpretation Comme nts JAZ SPECIES (test code = 48571) NEGATIVE G. VAGINALIS (test code = 55869) NEGATIVE T. VAGINALIS (test code = 84085) NEGATIVE Darryl Ackerman AustinVAGINAL PATHOGENS DNA [id number] 00:00:00* Test Item Value Reference Range Interpretation Comme nts JAZ SPECIES (test code = 47143) NEGATIVE G. VAGINALIS (test code = 74471) NEGATIVE T. VAGINALIS (test code = 75070) NEGATIVE Darryl F AustinVAGINAL PATHOGENS DNA [id number] 00:00:00* Test Item Value Reference Range Interpretation Comme nts JAZ SPECIES (test code = 65884) NEGATIVE G. VAGINALIS (test code = 72910) NEGATIVE T. VAGINALIS (test code = 08195) NEGATIVE Darryl F AustinVAGINAL PATHOGENS DNA [id number] 00:00:00* Test Item Value Reference Range Interpretation Comme nts JAZ SPECIES (test code = 94688) NEGATIVE G. VAGINALIS (test code = 89542) NEGATIVE T. VAGINALIS (test code = 10347) NEGATIVE Darryl F AustinVAGINAL PATHOGENS DNA [id number] 00:00:00* Test Item Value Reference Range Interpretation Comme nts JAZ SPECIES (test code = 66170) NEGATIVE G. VAGINALIS (test code = 03597) NEGATIVE T. VAGINALIS (test code = 08759) NEGATIVE Darryl F AustinVAGINAL PATHOGENS DNA [id number] 00:00:00* Test Item Value Reference Range Interpretation Comme nts JAZ SPECIES (test code = 25890) NEGATIVE G. VAGINALIS (test code = 95563) NEGATIVE T. VAGINALIS (test code = 67614) NEGATIVE Darryl F AustinVAGINAL PATHOGENS DNA [id number] 00:00:00* Test Item Value Reference Range Interpretation Comme nts JAZ SPECIES (test code = 70066) NEGATIVE G. VAGINALIS (test code = 02168) NEGATIVE T. VAGINALIS (test code = 61147) NEGATIVE Darryl F AustinCOMP. METABOLIC PANEL (07121)2023-06-12 05:34:53* Test Item Value Reference Range Interpretation Comme nts NA (test code = 1608060456) 137 mmol/L 135-145 K (test code = 8410044022) 3.9 mmol/L 3.5-5.0 CL (test code = 1323139533) 106 mmol/L 98-108 CO2 TOTAL (test code = 5350006186) 24 mmol/L 23-31 AGAP (test code = 9583925242) 7 2-16 BUN (test code = 4969631845) 10 mg/dL 7-23 GLUCOSE (test code = 1950034903) 90 mg/dL 70-110 CREATININE (test code = 1853356832) 0.94 mg/dL 0.50-1.04 TOTAL BILI (test code = 1549569339) 0.1-1.1 L CALCIUM (test code = 8265399927) 9.1 mg/dL 8.6-10.6 T PROTEIN (test code = 6948039609) 6.9 g/dL 6.3-8.2 ALBUMIN (test code = 8642517520) 4.1 g/dL 3.5-5.0 ALK PHOS (test code = 7479163078) 72 U/L 34-122 ALTv (test code = 1742-6) 24 U/L 5-35 AST(SGOT) (test code = 1159517450) 28 U/L 13-40 eGFR (test code = 1944969267) 69.5 mL/min/1.73m2 ELIA (test code = ELIA) [...] imaging tests). Lab Interpretation (test code = 81703-6) Abnormal [facility] WITH [id number] 05:16:33* Test Item Value Reference Range Interpretation Comme nts WBC (test code = 6690-2) 7.81 See_Comment [Automated [employer]mosfer[employer] ge] The system which generated this result transmitted reference range: 4.30 - 11.10 10*3/?L. The reference range was not used to interpret this result as normal/abnormal. RBC (test code = 789-8) 3.89 See_Comment L [Automated Atmosferiqa ge] The system which generated this result [...] g/dL 31.6-35.1 L RDW-SD (test code = 68848-1) 48.2 fL 39.0-49.9 RDW-CV (test code = 788-0) 17.9 % 12.0-15.5 H PLT (test code = 777-3) 327 See_Comment [Automated Atmosferiqa ge] The system which generated this result transmitted reference range: 166 - 358 10*3/?L. The reference range was not used to interpret this result as normal/abnormal. MPV (test code = 96537-6) 9.7 fL 9.5-12.9 NRBC/100 WBC (test code = 2026065755) 0.0 See_Comment [Automated [employer] ssage] The system which generated this result transmitted reference range: 0.0 - 10.0 /100 WBCs. The reference range was not used to interpret this result as normal/abnormal. NRBC x10^3 (test code = 6719369628) See_Comment [Automated messa ge] The system which generated this result transmitted reference range: 10*3/?L. The reference range was not used to interpret this result as normal/abnormal. GRAN MAT (NEUT) % (test code = 770-8) 40.4 % IMM GRAN % (test code = 5836887239) 0.10 % LYMPH % (test code = 736-9) 45.5 % MONO % (test code = 5905-5) 9.0 % EOS % (test code = 713-8) 4.5 % BASO % (test code = 706-2) 0.5 % GRAN MAT x10^3(ANC) (test code = 7681938827) 3.16 10*3/uL 1.88-7.09 IMM GRAN x10^3 (test code = 4091062960) 0.00-0.06 LYMPH x10^3 (test code = 731-0) 3.55 10*3/uL 1.32-3.29 H MONO x10^3 (test code = 742-7) 0.70 10*3/uL 0.33-0.92 EOS x10^3 (test code = 711-2) 0.35 10*3/uL 0.03-0.39 BASO x10^3 (test code = 704-7) 0.04 10*3/uL 0.01-0.07 Lab Interpretation (test code = 08344-6) [facility] [id number] 05:07:00* Test Item Value Reference Range Interpretation Comme nts POCT PREG (test code = 1605) Negative On board controls acceptable with C Line (test code = 3574) Yes POCT PREG LOT # (test code = 3575) [id number] POCT PREG TEST DATE ( test code = 3576) 10/17/2024 Lab Interpretation (test cod e = 26274-2) Normal [facility], THINPREP, [id number] 18:32:20 * Test Item Value Reference Range Interpretation Comme nts SOURCE: (test code = 8001) Cervical SLIDES: (test code = 8011) 1 LMP: (test code = 8021) 05/17/2023 SPECIMEN ADEQUACY: (test code = 57531) (NOTE) Satisfactory for evaluation. Endocervical cells/transformation zone component present. INTERPRETATION: (test code = 20637) ASCUS/EPITH. ABNORMALITY; SEE BELOW A - ------- EPITHELIAL CELL ABNORMALITY Atypical squamous cells of undetermined significance (ASC-US) OTHER COMMENTS: (test code = 8081) (NOTE) Trichomonas v aginalis present. [employer] WORK SUPERVISOR: (test code = 8101) TIERA Mcgee(ASC P) PATHOLOGIST INTERPRETATION BY: (test code = 8122) Joana Luna DO LOCATION: (test code = 15323) (NOTE) Specimens proces sed and interpreted at [facility] , [address] [place] [address], , CLIA: [id number] CPT: (test code = 8140) (NOTE) [address]7301, 56136 UNL ESS OTHERWISE INDICATED, COMPUTER AIDED AND IRON AND STEEL WORK SUPERVISOR SCREENING PERFORMED. The Pap test is a screening test with an inherent, but low probability of error. Your patient should be reminded to consult you immediately if she experiences any suspicious signs or symptoms, regardless of her Pap test result. An alternate report format containing images or consolidated prior Pap history is available as applicable. PAP TEST, THINPREP, [id number] 00:00:00* Test Item Value Reference Range Interpretation Comme nts SOURCE: (test code = 8001) Cervical SLIDES: (test code = 8011) 1 LMP: (test code = 8021) 05/17/2023 SPECIMEN ADEQUACY: (test code = 96403) (NOTE) INTERPRETATION: (test code = 94265) ASCUS/EPITH. ABNORMALITY; SEE BELOW OTHER COMMENTS: (test code = 8081) (NOTE) [employer]EL WORK SUPERVISOR: (test code = 8101) TIERA Mcgee(ASCP) PATHOLOGIST INTERPRETATION BY: (test code = 8122) Joana Luna DO LOCATION: (test code = 72692) (NOTE) CPT: (test code = 8140) (NOTE) Darryl WaggonerANGELESP TEST, THINPREP, [id number] 00:00:00* Test Item Value Reference Range Interpretation Comme nts SOURCE: (test code = 8001) Cervical SLIDES: (test code = 8011) 1 LMP: (test code = 8021) 05/17/2023 SPECIMEN ADEQUACY: (test code = 09624) (NOTE) INTERPRETATION: (test code = 10050) ASCUS/EPITH. ABNORMALITY; SEE BELOW OTHER COMMENTS: (test code = 8081) (NOTE) [employer] STEEL WORK SUPERVISOR: (test code = 8101) TIERA Mcgee(ASCP) PATHOLOGIST INTERPRETATION BY: (test code = 8122) Joana Luna DO LOCATION: (test code = 14644) (NOTE) CPT: (test code = 8140) (NOTE) Darryl WaggonerANGELESP TEST, THINPREP, [id number] 00:00:00* Test Item Value Reference Range Interpretation Comme nts SOURCE: (test code = 8001) Cervical SLIDES: (test code = 8011) 1 LMP: (test code = 8021) 05/17/2023 SPECIMEN ADEQUACY: (test code = 03886) (NOTE) INTERPRETATION: (test code = 32322) ASCUS/EPITH. ABNORMALITY; SEE BELOW OTHER COMMENTS: (test code = 8081) (NOTE) [employer] STEEL WORK SUPERVISOR: (test code = 8101) TIERA Mcgee(ASCP) PATHOLOGIST INTERPRETATION BY: (test code = 8122) Joana Luna DO LOCATION: (test code = 08926) (NOTE) CPT: (test code = 8140) (NOTE) Darryl WaggonerANGELESP TEST, THINPREP, [id number] 00:00:00* Test Item Value Reference Range Interpretation Comme nts SOURCE: (test code = 8001) Cervical SLIDES: (test code = 8011) 1 LMP: (test code = 8021) 05/17/2023 SPECIMEN ADEQUACY: (test code = 13837) (NOTE) INTERPRETATION: (test code = 38663) ASCUS/EPITH. ABNORMALITY; SEE BELOW OTHER COMMENTS: (test code = 8081) (NOTE) [employer] STEEL WORK SUPERVISOR: (test code = 8101) TIERA Mcgee(ASCP) PATHOLOGIST INTERPRETATION BY: (test code = 8122) Joana Luna DO LOCATION: (test code = 93982) (NOTE) CPT: (test code = 8140) (NOTE) Darryl Tyron Chris TEST, THINPREP, [id number] 00:00:00* Test Item Value Reference Range Interpretation Comme nts SOURCE: (test code = 8001) Cervical SLIDES: (test code = 8011) 1 LMP: (test code = 8021) 05/17/2023 SPECIMEN ADEQUACY: (test code = 28137) (NOTE) INTERPRETATION: (test code = 44830) ASCUS/EPITH. ABNORMALITY; SEE BELOW OTHER COMMENTS: (test code = 8081) (NOTE) [employer] STE[employer] WORK SUPERVISOR: (test code = 8101) TIERA Mcgee(ASCP) PATHOLOGIST INTERPRETATION BY: (test code = 8122) Joana Luna DO LOCATION: (test code = 57538) (NOTE) CPT: (test code = 8140) (NOTE) Darryl Perez TEST, THINPREP, [id number] 00:00:00* Test Item Value Reference Range Interpretation Comme nts SOURCE: (test code = 8001) Cervical SLIDES: (test code = 8011) 1 LMP: (test code = 8021) 05/17/2023 SPECIMEN ADEQUACY: (test code = 89726) (NOTE) INTERPRETATION: (test code = 75647) ASCUS/EPITH. ABNORMALITY; SEE BELOW OTHER COMMENTS: (test code = 8081) (NOTE) [employer] STE[employer] WORK SUPERVISOR: (test code = 8101) TIERA Mcgee(ASCP) PATHOLOGIST INTERPRETATION BY: (test code = 8122) Joana Luna DO LOCATION: (test code = 42824) (NOTE) CPT: (test code = 8140) (NOTE) Darryl F AustinPAP TEST, THINPREP, [id number] 00:00:00* Test Item Value Reference Range Interpretation Comme nts SOURCE: (test code = 8001) Cervical SLIDES: (test code = 8011) 1 LMP: (test code = 8021) 05/17/2023 SPECIMEN ADEQUACY: (test code = 22911) (NOTE) INTERPRETATION: (test code = 34464) ASCUS/EPITH. ABNORMALITY; SEE BELOW OTHER COMMENTS: (test code = 8081) (NOTE) [employer] WORK SUPERVISOR: (test code = 8101) TIERA Mcgee(ASCP) PATHOLOGIST INTERPRETATION BY: (test code = 8122) [facility] LOCATION: (test code = 72314) (NOTE) CPT: (test code = 8140) (NOTE) Darryl McadamsP TEST, THINPREP, [id number] 00:00:00* Test Item Value Reference Range Interpretation Comme nts SOURCE: (test code = 8001) Cervical SLIDES: (test code = 8011) 1 LMP: (test code = 8021) 05/17/2023 SPECIMEN ADEQUACY: (test code = 04442) (NOTE) INTERPRETATION: (test code = 32957) ASCUS/EPITH. ABNORMALITY; SEE BELOW OTHER COMMENTS: (test code = 8081) (NOTE) [employer] WORK SUPERVISOR: (test code = 8101) TIERA Mcgee(ASCP) PATHOLOGIST INTERPRETATION BY: (test code = 8122) [facility] LOCATION: (test code = 83459) (NOTE) CPT: (test code = 8140) (NOTE) Darryl Ackerman EdilsonCT/NG, NAAT, [id number] 20:10:21* Test Item Value Reference Range Interpretation Comme nts CHLAMYDIA, NAAT, URINE (test code = 05658) POSITIVE NEGATIVE A Testing is perfo rmed with Lucie HARRY 6800/8800 systems usingreal-time polymerase chain reaction (PCR) method. GONORRHEA, NAAT, URINE (test code = 89285) NEGATIVE NEGATIVE Testing is perfo rmed with Lucie HARRY 6800/8800 systems usingreal-time polymerase chain reaction (PCR) method. A negative result does not exclude low level infection, specimensampling error, or collection error. UNLESS OTHERWISE INDICATED, ALL TESTING PERFORMED AT [facility] [address] [place] [address] EMBROIDERY OPERATOR: ANIBAL PAREDES M.D. CLIA NUMBER [id number] [place]. [id number] HPV HIGH RISK WITH GENOTYPE, [id number] 17:33:46* Test Item Value Reference Range Interpretation Comme nts HPV HIGH RISK INTERP (test code = 42566) POSITIVE NEGATIVE A HPV 16 (test code = 36209) POSITIVE A HPV 18 (test code = 76285) NEGATIVE HPV, HR, OTHER GENOTYPES (test code = 31082) NEGATIVE Testing methodol ogy is real-time PCR [...] PERFORMED AT [facility] [address] [place] [address] EMBROIDERY OPERATOR: ANIBAL PAREDES M.D. CLIA NUMBER [id number] [place]. [id number] VAGINAL PATHOGENS DNA [id number] 16:55:18* Test Item Value Reference Range Interpretation Comme nts JAZ SPECIES (test code = 86483) NEGATIVE NEGATIVE G. VAGINALIS (test code = 23480) NEGATIVE NEGATIVE T. VAGINALIS (test code = 36010) NEGATIVE NEGATIVE Note: [facility] VPIII Microbial Identification Testis a DNA probe test intended for use in the detectionand identification of Jaz species, Gardnerellavaginalis and Trichomonas vaginalis nucleic acid. UNLESS OTHERWISE INDICATED, ALL TESTING PERFORMED AT [facility]. [address] [place] [address] EMBROIDERY OPERATOR: ANIBAL PAREDES M.D. CLIA NUMBER [id number] [place]. [id number] RPR REFLEX TO T. PALLIDUM - [id number] 08:07:41* Test Item Value Reference Range Interpretation Comme nts RPR (test code = 23745) NON-REACTIVE NON-REACTIVE RPR TITER (test code = 3500) NOT INDIC. TITER NOT INDIC. HIV 1/2 4TH GEN, RFLX [id number] 05:24:44* Test Item Value Reference Range Interpretation Comme nts HIV 1/2 4TH GEN, RFLX CONF ( test code = 3514) NON-REACTIVE NON-REACTIVE HPV HIGH RISK WITH GENOTYPE, [id number] 00:00:00* Test Item Value Reference Range Interpretation Comme nts HPV HIGH RISK INTERP (test c ode = 20341) POSITIVE HPV 16 (test code = 19038) POSITIVE HPV 18 (test code = 27932) NEGATIVE HPV, HR, OTHER GENOTYPES (te st code = 17508) NEGATIVE PDFE (test code = PDFReport) PDF Darryl Ackerman AustinRPR REFLEX TO T. PALLIDUM - [id number] 00:00:00* Test Item Value Reference Range Interpretation Comme nts RPR (test code = 13512) NON-REACTIVE RPR TITER (test code = 3500) NOT INDIC. TITER Darryl Ackerman AustinCT/NG, TMA, [id number] 00:00:00* Test Item Value Reference Range Interpretation Comme nts CHLAMYDIA, NAAT, URINE (test code = 24804) POSITIVE GONORRHEA, NAAT, URINE (test code = 59414) NEGATIVE Darryl Ackerman AustinHIV 1/2 4TH GEN, RFLX [id number] 00:00:00* Test Item Value Reference Range Interpretation Comme nts HIV 1/2 4TH GEN, RFLX CONF ( test code = 3514) NON-REACTIVE Darryl Ackerman AustinVAGINAL PATHOGENS DNA [id number] 00:00:00* Test Item Value Reference Range Interpretation Comme nts JAZ SPECIES (test code = 48467) NEGATIVE G. VAGINALIS (test code = 99212) NEGATIVE T. VAGINALIS (test code = 83425) NEGATIVE Darryl Ackerman AustinRPR REFLEX TO T. PALLIDUM - [id number] 00:00:00* Test Item Value Reference Range Interpretation Comme nts RPR (test code = 36041) NON-REACTIVE RPR TITER (test code = 3500) NOT INDIC. TITER Darryl Ackerman AustinHPV HIGH RISK WITH GENOTYPE, [id number] 00:00:00* Test Item Value Reference Range Interpretation Comme nts HPV HIGH RISK INTERP (test c ode = 92197) POSITIVE HPV 16 (test code = 47401) POSITIVE HPV 18 (test code = 29741) NEGATIVE HPV, HR, OTHER GENOTYPES (te st code = 35181) NEGATIVE PDFE (test code = PDFReport) PDF Darryl Ackerman AustinCT/NG, TMA, [id number] 00:00:00* Test Item Value Reference Range Interpretation Comme nts CHLAMYDIA, NAAT, URINE (test code = 28351) POSITIVE GONORRHEA, NAAT, URINE (test code = 40551) NEGATIVE Darryl WaggonerHIV 1/2 4TH GEN, RFLX [id number] 00:00:00* Test Item Value Reference Range Interpretation Comme nts HIV 1/2 4TH GEN, RFLX CONF ( test code = 3514) NON-REACTIVE Darryl WaggonerVAGINAL PATHOGENS DNA [id number] 00:00:00* Test Item Value Reference Range Interpretation Comme nts JAZ SPECIES (test code = 47738) NEGATIVE G. VAGINALIS (test code = 92918) NEGATIVE T. VAGINALIS (test code = 54963) NEGATIVE Darryl WaggonreHPV HIGH RISK WITH GENOTYPE, [id number] 00:00:00* Test Item Value Reference Range Interpretation Comme nts HPV HIGH RISK INTERP (test c ode = 37941) POSITIVE HPV 16 (test code = 14543) POSITIVE HPV 18 (test code = 53146) NEGATIVE HPV, HR, OTHER GENOTYPES (te st code = 74577) NEGATIVE PDFE (test code = PDFReport) PDF Darryl Ackerman AustinRPR REFLEX TO T. PALLIDUM - [id number] 00:00:00* Test Item Value Reference Range Interpretation Comme nts RPR (test code = 43383) NON-REACTIVE RPR TITER (test code = 3500) NOT INDIC. TITER Darryl Ackerman AustinCT/NG, TMA, [id number] 00:00:00* Test Item Value Reference Range Interpretation Comme nts CHLAMYDIA, NAAT, URINE (test code = 55986) POSITIVE GONORRHEA, NAAT, URINE (test code = 01508) NEGATIVE Darryl Ackerman AustinHIV 1/2 4TH GEN, RFLX [id number] 00:00:00* Test Item Value Reference Range Interpretation Comme nts HIV 1/2 4TH GEN, RFLX CONF ( test code = 3514) NON-REACTIVE Darryl Ackerman AustinVAGINAL PATHOGENS DNA [id number] 00:00:00* Test Item Value Reference Range Interpretation Comme nts JAZ SPECIES (test code = ) NEGATIVE G. VAGINALIS (test code = 30311) NEGATIVE T. VAGINALIS (test code = 68100) NEGATIVE Darryl Ackerman AustinHPV HIGH RISK WITH GENOTYPE, [id number] 00:00:00* Test Item Value Reference Range Interpretation Comme nts HPV HIGH RISK INTERP (test c ode = 71562) POSITIVE HPV 16 (test code = 21882) POSITIVE HPV 18 (test code = 16982) NEGATIVE HPV, HR, OTHER GENOTYPES (te st code = 28155) NEGATIVE PDFE (test code = PDFReport) PDF Darryl Ackerman AustinRPR REFLEX TO T. PALLIDUM - [id number] 00:00:00* Test Item Value Reference Range Interpretation Comme nts RPR (test code = 69631) NON-REACTIVE RPR TITER (test code = 3500) NOT INDIC. TITER Darryl Ackerman AustinCT/NG, TMA, [id number] 00:00:00* Test Item Value Reference Range Interpretation Comme nts CHLAMYDIA, NAAT, URINE (test code = 05687) POSITIVE GONORRHEA, NAAT, URINE (test code = 20777) NEGATIVE Darryl WaggonerHIV 1/2 4TH GEN, RFLX [id number] 00:00:00* Test Item Value Reference Range Interpretation Comme nts HIV 1/2 4TH GEN, RFLX CONF ( test code = 3514) NON-REACTIVE Darryl Ackerman AustinVAGINAL PATHOGENS DNA [id number] 00:00:00* Test Item Value Reference Range Interpretation Comme nts JAZ SPECIES (test code = ) NEGATIVE G. VAGINALIS (test code = 29253) NEGATIVE T. VAGINALIS (test code = 43839) NEGATIVE Darryl Ackerman AustinRPR REFLEX TO T. PALLIDUM - [id number] 00:00:00* Test Item Value Reference Range Interpretation Comme nts RPR (test code = 96858) NON-REACTIVE RPR TITER (test code = 3500) NOT INDIC. TITER Darryl Ackerman AustinHPV HIGH RISK WITH GENOTYPE, [id number] 00:00:00* Test Item Value Reference Range Interpretation Comme nts HPV HIGH RISK INTERP (test c ode = 18820) POSITIVE HPV 16 (test code = 70978) POSITIVE HPV 18 (test code = 00272) NEGATIVE HPV, HR, OTHER GENOTYPES (te st code = 68254) NEGATIVE PDFE (test code = PDFReport) PDF Darryl Ackerman AustinCT/NG, TMA, [id number] 00:00:00* Test Item Value Reference Range Interpretation Comme nts CHLAMYDIA, NAAT, URINE (test code = 55280) POSITIVE GONORRHEA, NAAT, URINE (test code = 11708) NEGATIVE Darryl Ackerman AustinHIV 1/2 4TH GEN, RFLX [id number] 00:00:00* Test Item Value Reference Range Interpretation Comme nts HIV 1/2 4TH GEN, RFLX CONF ( test code = 3514) NON-REACTIVE Darryl Ackerman AustinVAGINAL PATHOGENS DNA [id number] 00:00:00* Test Item Value Reference Range Interpretation Comme nts JAZ SPECIES (test code = 29308) NEGATIVE G. VAGINALIS (test code = 43315) NEGATIVE T. VAGINALIS (test code = 53623) NEGATIVE Darryl Ackerman AustinRPR REFLEX TO T. PALLIDUM - [id number] 00:00:00* Test Item Value Reference Range Interpretation Comme nts RPR (test code = 06630) NON-REACTIVE RPR TITER (test code = 3500) NOT INDIC. TITER Darryl Ackerman AustinHPV HIGH RISK WITH GENOTYPE, [id number] 00:00:00* Test Item Value Reference Range Interpretation Comme nts HPV HIGH RISK INTERP (test c ode = 07125) POSITIVE HPV 16 (test code = 49175) POSITIVE HPV 18 (test code = 88540) NEGATIVE HPV, HR, OTHER GENOTYPES (te st code = 67697) NEGATIVE PDFE (test code = PDFReport) PDF Darryl Ackerman AustinCT/NG, TMA, [id number] 00:00:00* Test Item Value Reference Range Interpretation Comme nts CHLAMYDIA, NAAT, URINE (test code = 14666) POSITIVE GONORRHEA, NAAT, URINE (test code = 26100) NEGATIVE Darryl Ackerman AustinVAGINAL PATHOGENS DNA [id number] 00:00:00* Test Item Value Reference Range Interpretation Comme nts JAZ SPECIES (test code = 31717) NEGATIVE G. VAGINALIS (test code = 38699) NEGATIVE T. VAGINALIS (test code = 94803) NEGATIVE Darryl Ackerman AustinHIV 1/2 4TH GEN, RFLX [id number] 00:00:00* Test Item Value Reference Range Interpretation Comme nts HIV 1/2 4TH GEN, RFLX CONF ( test code = 3514) NON-REACTIVE Darryl Ackerman AustinRPR REFLEX TO T. PALLIDUM - [id number] 00:00:00* Test Item Value Reference Range Interpretation Comme nts RPR (test code = 68358) NON-REACTIVE RPR TITER (test code = 3500) NOT INDIC. TITER Darryl Ackerman AustinHPV HIGH RISK WITH GENOTYPE, [id number] 00:00:00* Test Item Value Reference Range Interpretation Comme nts HPV HIGH RISK INTERP (test c ode = 19941) POSITIVE HPV 16 (test code = 91566) POSITIVE HPV 18 (test code = 18227) NEGATIVE HPV, HR, OTHER GENOTYPES (te st code = 66943) NEGATIVE PDFE (test code = PDFReport) PDF Darryl Ackerman AustinCT/NG, TMA, [id number] 00:00:00* Test Item Value Reference Range Interpretation Comme nts CHLAMYDIA, NAAT, URINE (test code = 55960) POSITIVE GONORRHEA, NAAT, URINE (test code = 47496) NEGATIVE Darryl Ackerman AustinVAGINAL PATHOGENS DNA [id number] 00:00:00* Test Item Value Reference Range Interpretation Comme nts JAZ SPECIES (test code = 66616) NEGATIVE G. VAGINALIS (test code = 50641) NEGATIVE T. VAGINALIS (test code = 01002) NEGATIVE Darryl Ackerman AustinHIV 1/2 4TH GEN, RFLX [id number] 00:00:00* Test Item Value Reference Range Interpretation Comme nts HIV 1/2 4TH GEN, RFLX CONF ( test code = 3514) NON-REACTIVE Darryl Ackerman AustinRPR REFLEX TO T. PALLIDUM - [id number] 00:00:00* Test Item Value Reference Range Interpretation Comme nts RPR (test code = 75002) NON-REACTIVE RPR TITER (test code = 3500) NOT INDIC. TITER Darryl F AustinHPV HIGH RISK WITH GENOTYPE, [id number] 00:00:00* Test Item Value Reference Range Interpretation Comme nts HPV HIGH RISK INTERP (test c ode = 81094) POSITIVE HPV 16 (test code = 32309) POSITIVE HPV 18 (test code = 90574) NEGATIVE HPV, HR, OTHER GENOTYPES (te st code = 97375) NEGATIVE PDFE (test code = PDFReport) PDF Darryl WaggonerCT/NG, TMA, [id number] 00:00:00* Test Item Value Reference Range Interpretation Comme nts CHLAMYDIA, NAAT, URINE (test code = 13149) POSITIVE GONORRHEA, NAAT, URINE (test code = 26679) NEGATIVE Darryl WaggonerHIV 1/2 4TH GEN, RFLX [id number] 00:00:00* Test Item Value Reference Range Interpretation Comme nts HIV 1/2 4TH GEN, RFLX CONF ( test code = 3514) NON-REACTIVE Darryl WaggonerVAGINAL PATHOGENS DNA [id number] 00:00:00* Test Item Value Reference Range Interpretation Comme nts JAZ SPECIES (test code = 25816) NEGATIVE G. VAGINALIS (test code = 44680) NEGATIVE T. VAGINALIS (test code = 77104) NEGATIVE Darryl WaggonerCOMP. METABOLIC PANEL (00813)2023-05-28 07:12:09* Test Item Value Reference Range Interpretation Comme nts NA (test code = 5500070137) 138 mmol/L 135-145 K (test code = 1057607281) 3.6 mmol/L 3.5-5.0 CL (test code = 2242186540) 105 mmol/L 98-108 CO2 TOTAL (test code = 3443272955) 24 mmol/L 23-31 AGAP (test code = 4476889574) 9 2-16 BUN (test code = 7364631833) 8 mg/dL 7-23 GLUCOSE (test code = 0481274023) 94 mg/dL 70-110 CREATININE (test code = 8555906078) 0.90 mg/dL 0.50-1.04 TOTAL BILI (test code = 2503190079) 0.5 mg/dL 0.1-1.1 CALCIUM (test code = 7869038425) 9.2 mg/dL 8.6-10.6 T PROTEIN (test code = 8054467038) 7.8 g/dL 6.3-8.2 ALBUMIN (test code = 6906154118) 4.3 g/dL 3.5-5.0 ALK PHOS (test code = 1771933307) 91 U/L 34-122 ALTv (test code = 1742-6) 32 U/L 5-35 AST(SGOT) (test code = 0917137008) 48 U/L 13-40 H eGFR (test code = 3974070183) 73.0 mL/min/1.73m2 ELIA (test code = ELIA) [...] imaging tests). Lab Interpretation (test code = 23983-7) Abnormal [facility] WITH [id number] 06:45:45* Test Item Value Reference Range Interpretation [...] g/dL 31.6-35.1 L RDW-SD (test code = 49178-8) 49.8 fL 39.0-49.9 RDW-CV (test code = 788-0) 18.3 % 12.0-15.5 H PLT (test code = 777-3) 391 See_Comment H [Automated messa ge] The system which generated this result transmitted reference range: 166 - 358 10*3/?L. The reference range was not used to interpret this result as normal/abnormal. MPV (test code = 18258-7) 10.3 fL 9.5-12.9 NRBC/100 WBC (test code = 9129167989) 0.0 See_Comment [Automated [employer] ssage] The system which generated this result transmitted reference range: 0.0 - 10.0 /100 WBCs. The reference range was not used to interpret this result as normal/abnormal. NRBC x10^3 (test code = 3754450749) See_Comment [Automated messa ge] The system which generated this result transmitted reference range: 10*3/?L. The reference range was not used to interpret this result as normal/abnormal. GRAN MAT (NEUT) % (test code = 770-8) 47.8 % IMM GRAN % (test code = 5279014489) 0.30 % LYMPH % (test code = 736-9) 39.1 % MONO % (test code = 5905-5) 8.5 % EOS % (test code = 713-8) 3.5 % BASO % (test code = 706-2) 0.8 % GRAN MAT x10^3(ANC) (test code = 9723881389) 3.73 10*3/uL 1.88-7.09 IMM GRAN x10^3 (test code = 7899302403) 0.00-0.06 LYMPH x10^3 (test code = 731-0) 3.04 10*3/uL 1.32-3.29 MONO x10^3 (test code = 742-7) 0.66 10*3/uL 0.33-0.92 EOS x10^3 (test code = 711-2) 0.27 10*3/uL 0.03-0.39 BASO x10^3 (test code = 704-7) 0.06 10*3/uL 0.01-0.07 Lab Interpretation (test code = 75759-1) Abnormal [facility] [id number] 06:40:00* Test Item Value Reference Range Interpretation Comme nts POCT PREG (test code = 1605) Negative On board controls acceptable with C Line (test code = 3574) Yes POCT PREG LOT # (test code = 3575) [id number] POCT PREG TEST DATE ( test code = 3576) 10/17/2024 Lab Interpretation (test cod e = 22984-8) Normal [facility] [id number] 06:17:00* Test Item Value Reference Range Interpretation Comme nts POCT PREG (test code = 1605) Negative On board controls acceptable with C Line (test code = 3574) Present POCT PREG LOT # (test code = 3575) [id number] POCT PREG TEST DATE ( test code = 3576) Lab Interpretation (test cod e = 56663-6) Normal [facility] [id number] 18:58:00* Test Item Value Reference Range Interpretation Comme nts POCT PREG (test code = 1605) negative Lab Interpretation (test cod e = 77694-4) Normal [facility] WITH [id number] 13:14:57* Test Item Value Reference Range Interpretation [...] g/dL 31.6-35.1 L RDW-SD (test code = 58925-8) 46.2 fL 39-49.9 RDW-CV (test code = 788-0) 17.0 % 12-15.5 H PLT (test code = 777-3) See_Comment H [Automated messa ge] The system which generated this result transmitted reference range: 166 - 358 10*3/?L. The reference range was not used to interpret this result as normal/abnormal. MPV (test code = 38304-2) 9.1 fL 9.5-12.9 L NRBC/100 WBC (test code = 5791230627) See_Comment [Automated me ssage] The system which generated this result transmitted reference range: 0.0 - 10.0 /100 WBCs. The reference range was not used to interpret this result as normal/abnormal. NRBC x10^3 (test code = 0819575375) See_Comment [Automated messa ge] The system which generated this result transmitted reference range: 10*3/?L. The reference range was not used to interpret this result as normal/abnormal. GRAN MAT (NEUT) % (test code = 770-8) 51.3 % IMM GRAN % (test code = 1272978744) 0.40 % LYMPH % (test code = 736-9) 37.0 % MONO % (test code = 5905-5) 8.5 % EOS % (test code = 713-8) 2.2 % BASO % (test code = 706-2) 0.6 % GRAN MAT x10^3(ANC) (test code = 3890137684) 4.26 10*3/uL 1.88-7.09 IMM GRAN x10^3 (test code = 7092371487) 0.03 10*3/uL 0-0.06 LYMPH x10^3 (test code = 731-0) 3.06 10*3/uL 1.32-3.29 MONO x10^3 (test code = 742-7) 0.70 10*3/uL 0.33-0.92 EOS x10^3 (test code = 711-2) 0.18 10*3/uL 0.03-0.39 BASO x10^3 (test code = 704-7) 0.05 10*3/uL 0.01-0.07 Lab Interpretation (test code = 52400-5) Abnormal [facility] [id number] 12:55:00* Test Item Value Reference Range Interpretation Comme nts POCT PREG (test code = 1605) negative On board controls acceptable with C Line (test code = 3574) present Lab Interpretation (test cod e = 71476-0) [facility] [id number] 20:49:00* Test Item Value Reference Range Interpretation Comme nts POCT PREG (test code = 1605) negative On board controls acceptable with C Line (test code = 3574) yes POCT PREG LOT # (test code = 3575) [id number] POCT PREG TEST DATE ( test code = 3576) 08/14/2023 Lab Interpretation (test cod e = 01683-6) [facility] Met[facility] [id number] 08:01:55* Test Item Value Reference Range Interpretation Comme nts NA (test code = 5029736699) 138 mmol/L 135-145 K (test code = 6295722868) 4.2 mmol/L 3.5-5 CL (test code = 3910996365) 107 mmol/L 98-108 CO2 TOTAL (test code = 7705971730) 20 mmol/L 23-31 L AGAP (test code = 9609956802) 2-16 BUN (test code = 8071823658) 10 mg/dL 7-23 GLUCOSE (test code = 9800802635) 105 mg/dL 70-110 CREATININE (test code = 1697167230) 0.86 mg/dL 0.5-1.04 TOTAL BILI (test code = 1161806856) 0.1-1.1 L CALCIUM (test code = 4990490457) 9.1 mg/dL 8.6-10.6 T PROTEIN (test code = 3394157559) 7.4 g/dL 6.3-8.2 ALBUMIN (test code = 0901170210) 4.8 g/dL 3.5-5 ALK PHOS (test code = 2644443336) 81 U/L 34-122 ALTv (test code = 1742-6) 17 U/L 5-35 AST(SGOT) (test code = 1190541143) 19 U/L 13-40 eGFR (test code = 7324699808) mL/min/1.73m2 ELIA (test code = ELIA) Association [...] imaging tests). Lab Interpretation (test code = 52115-3) [facility] HospitalLipase, [id number] 07:59:48* Test Item Value Reference Range Interpretation Comme nts LIPASE (test code = 6436450237) 94 U/L 0-220 Lab Interpretation (test cod e = 41379-7) [facility] HospitalCBC with Fetpkhwermgu7934-66-02 07:47:29* Test Item Value Reference Range Interpretation Comme nts WBC (test code = 6690-2) See_Comment [Automated [employer]] The system which generated this result transmitted reference range: 4.30 - 11.10 10*3/?L. The reference range was not used to interpret this result as normal/abnormal. RBC (test code = 789-8) See_Comment [Automated [employer]] The system which generated this result transmitted [...] g/dL 31.6-35.1 L RDW-SD (test code = 65519-1) 40.2 fL 39-49.9 RDW-CV (test code = 788-0) 15.0 % 12-15.5 PLT (test code = 777-3) See_Comment [Automated messa ge] The system which generated this result transmitted reference range: 166 - 358 10*3/?L. The reference range was not used to interpret this result as normal/abnormal. MPV (test code = 02567-4) 10.1 fL 9.5-12.9 NRBC/100 WBC (test code = 8279568918) See_Comment [Automated me ssage] The system which generated this result transmitted reference range: 0.0 - 10.0 /100 WBCs. The reference range was not used to interpret this result as normal/abnormal. NRBC x10^3 (test code = 1033824654) See_Comment [Automated messa ge] The system which generated this result transmitted reference range: 10*3/?L. The reference range was not used to interpret this result as normal/abnormal. GRAN MAT (NEUT) % (test code = 770-8) 46.6 % IMM GRAN % (test code = 5563484984) 0.40 % LYMPH % (test code = 736-9) 40.7 % MONO % (test code = 5905-5) 8.6 % EOS % (test code = 713-8) 3.3 % BASO % (test code = 706-2) 0.4 % GRAN MAT x10^3(ANC) (test code = 0770822087) 3.40 10*3/uL 1.88-7.09 IMM GRAN x10^3 (test code = 6168373150) 0.03 10*3/uL 0-0.06 LYMPH x10^3 (test code = 731-0) 2.97 10*3/uL 1.32-3.29 MONO x10^3 (test code = 742-7) 0.63 10*3/uL 0.33-0.92 EOS x10^3 (test code = 711-2) 0.24 10*3/uL 0.03-0.39 BASO x10^3 (test code = 704-7) 0.03 10*3/uL 0.01-0.07 Lab Interpretation (test code = 32936-4) [facility] [id number] 07:37:00* Test Item Value Reference Range Interpretation Comme nts POCT PREG (test code = 1605) Negative On board controls acceptable with C Line (test code = 3574) Present POCT PREG LOT # (test code = 3575) [id number] POCT PREG TEST DATE ( test code = 3576) 08/14/2023 Lab Interpretation (test cod e = 00542-5) Normal [facility] [id number] 22:19:00* Test Item Value Reference Range Interpretation Comme nts POCT PREG (test code = 1605) NEGATIVE On board controls acceptable with C Line (test code = 3574) present POCT PREG LOT # (test code = 3575) [id number] POCT PREG TEST DATE ( test code = 3576) 07/14/2023 Lab Interpretation (test cod e = 52555-3) [facility] [id number] 19:54:00* Test Item Value Reference Range Interpretation Comme nts POCT PREG (test code = 1605) negative On board controls acceptable with C Line (test code = 3574) present POCT PREG LOT # (test code = 3575) [id number] POCT PREG TEST DATE ( test code = 3576) 12/12/2022 Lab Interpretation (test cod e = 30530-0) [facility] 06:28:44* Test Item Value Reference Range Interpretation Comme nts FERRITIN (test code = 2075) 3 NG/ML 13-200 L [id number] 04:37:13* Test Item Value Reference Range Interpretation Comme nts TRANSFERRIN (test code = 4936) 385 MG/DL 200-360 H UNLESS OTHERWISE INDICATED, ALL TESTING PERFORMED [facility] [address] [place] [address] EMBROIDERY OPERATOR: NICOLE GUSMAN M.D. CLIA NUMBER [id number] [facility] [place]. [id number] IRON BINDING CAPACITY AND IRON AND % [id number] 04:19:01* Test Item Value Reference Range Interpretation Comme nts IRON, SERUM (test code = 2222) 11 UG/DL 37-145 L UNSATURATED IBC (test code = 78673) 442 UG/DL 112-347 H CALC TOTAL IBC (test code = 2076) 453 UG/DL 250-450 H CALC % IRON SAT (test code = 2078) 2 % 20-50 L IRON BINDING CAPACITY AND IRON AND % [id number] 00:00:00* Test Item Value Reference Range Interpretation Comme nts IRON, SERUM (test code = 2221) 11 UG/DL UNSATURATED IBC (test code = 17384) 442 UG/DL CALC TOTAL IBC (test code = 7) 453 UG/DL CALC % IRON SAT (test code = 2078) 2 % Darryl F EcpmsyQYPGQYCO1163-14-14 00:00:00* Test Item Value Reference Range Interpretation Comme nts FERRITIN (test code = 2074) 3 NG/ML Darryl F WelqgtZOSBTQZKCLW5438-18-18 00:00:00* Test Item Value Reference Range Interpretation Comme nts TRANSFERRIN (test code = 4936) 385 MG/DL Darryl F AustinIRON BINDING CAPACITY AND IRON AND % [id number] 00:00:00* Test Item Value Reference Range Interpretation Comme nts IRON, SERUM (test code = 2221) 11 UG/DL UNSATURATED IBC (test code = 70465) 442 UG/DL CALC TOTAL IBC (test code = 2076) 453 UG/DL CALC % IRON SAT (test code = 2078) 2 % Darryl F LvulnlWNITBBUD3115-96-01 00:00:00* Test Item Value Reference Range Interpretation Comme nts FERRITIN (test code = 2074) 3 NG/ML Darryl F ZwzwrzFKDJOERDEEX0154-25-62 00:00:00* Test Item Value Reference Range Interpretation Comme nts TRANSFERRIN (test code = 4936) 385 MG/DL Darryl F AustinIRON BINDING CAPACITY AND IRON AND % [id number] 00:00:00* Test Item Value Reference Range Interpretation Comme nts IRON, SERUM (test code = 2221) 11 UG/DL UNSATURATED IBC (test code = 29394) 442 UG/DL CALC TOTAL IBC (test code = 7) 453 UG/DL CALC % IRON SAT (test code = 9) 2 % Darryl F LcekzqUWKNVFJX7099-83-44 00:00:00* Test Item Value Reference Range Interpretation Comme nts FERRITIN (test code = 2074) 3 NG/ML Darryl F HqaozeJJOXOWPMRFZ7594-68-84 00:00:00* Test Item Value Reference Range Interpretation Comme nts TRANSFERRIN (test code = 4936) 385 MG/DL Darryl F AustinIRON BINDING CAPACITY AND IRON AND % [id number] 00:00:00* Test Item Value Reference Range Interpretation Comme nts IRON, SERUM (test code = 2222) 11 UG/DL UNSATURATED IBC (test code = 45347) 442 UG/DL CALC TOTAL IBC (test code = 7) 453 UG/DL CALC % IRON SAT (test code = 2079) 2 % Darryl F QpvlrsSZHFFFOX8197-86-64 00:00:00* Test Item Value Reference Range Interpretation Comme nts FERRITIN (test code = 2074) 3 NG/ML Darryl F UyqpigRLAFQFRVFAM3397-98-24 00:00:00* Test Item Value Reference Range Interpretation Comme nts TRANSFERRIN (test code = 4936) 385 MG/DL Darryl F AustinIRON BINDING CAPACITY AND IRON AND % [id number] 00:00:00* Test Item Value Reference Range Interpretation Comme nts IRON, SERUM (test code = 2222) 11 UG/DL UNSATURATED IBC (test code = 54541) 442 UG/DL CALC TOTAL IBC (test code = 7) 453 UG/DL CALC % IRON SAT (test code = 9) 2 % Darryl F UnxzlfIZCDXSGM2427-30-60 00:00:00* Test Item Value Reference Range Interpretation Comme nts FERRITIN (test code = 5) 3 NG/ML Darryl F LudnjzOGCNCYJHDAN5411-72-03 00:00:00* Test Item Value Reference Range Interpretation Comme nts TRANSFERRIN (test code = 4936) 385 MG/DL Darryl F AustinIRON BINDING CAPACITY AND IRON AND % [id number] 00:00:00* Test Item Value Reference Range Interpretation Comme nts IRON, SERUM (test code = 2222) 11 UG/DL UNSATURATED IBC (test code = 92853) 442 UG/DL CALC TOTAL IBC (test code = 7) 453 UG/DL CALC % IRON SAT (test code = 2079) 2 % Darryl F OyxgpdJAQNRULK5418-05-33 00:00:00* Test Item Value Reference Range Interpretation Comme nts FERRITIN (test code = 5) 3 NG/ML Darryl F UaqgauMUGEDVCGHIP7757-92-62 00:00:00* Test Item Value Reference Range Interpretation Comme nts TRANSFERRIN (test code = 4936) 385 MG/DL Darryl F AustinIRON BINDING CAPACITY AND IRON AND % [id number] 00:00:00* Test Item Value Reference Range Interpretation Comme nts IRON, SERUM (test code = 2222) 11 UG/DL UNSATURATED IBC (test code = 86705) 442 UG/DL CALC TOTAL IBC (test code = 7) 453 UG/DL CALC % IRON SAT (test code = 2079) 2 % Darryl F DlqsffDDRDFTQM9321-90-28 00:00:00* Test Item Value Reference Range Interpretation Comme nts FERRITIN (test code = 2074) 3 NG/ML Darryl F YnuruhACNLUKFILGX2456-89-57 00:00:00* Test Item Value Reference Range Interpretation Comme nts TRANSFERRIN (test code = 4936) 385 MG/DL Darryl F AustinIRON BINDING CAPACITY AND IRON AND % [id number] 00:00:00* Test Item Value Reference Range Interpretation Comme nts IRON, SERUM (test code = 2222) 11 UG/DL UNSATURATED IBC (test code = 23393) 442 UG/DL CALC TOTAL IBC (test code = 7) 453 UG/DL CALC % IRON SAT (test code = 2079) 2 % Darryl F TvnqvuNLXUJSAA3427-89-15 00:00:00* Test Item Value Reference Range Interpretation Comme nts FERRITIN (test code = 2074) 3 NG/ML Darryl F MdqxprVHBDNILZXFM5425-75-19 00:00:00* Test Item Value Reference Range Interpretation Comme nts TRANSFERRIN (test code = 4936) 385 MG/DL Darryl F AustinIRON BINDING CAPACITY AND IRON AND % ZMMQUJZRXY5000-10-34 00:00:00* Test Item Value Reference Range Interpretation Comme nts IRON, SERUM (test code = 2222) 11 UG/DL UNSATURATED IBC (test code = 61481) 442 UG/DL CALC TOTAL IBC (test code = 2077) 453 UG/DL CALC % IRON SAT (test code = 2079) 2 % [id number] 00:00:00* Test Item Value Reference Range Interpretation Comme nts FERRITIN (test code = 5) 3 NG/ML [id number] 00:00:00* Test Item Value Reference Range Interpretation Comme nts TRANSFERRIN (test code = 4936) 385 MG/DL IRON BINDING CAPACITY AND IRON AND % [id number] 00:00:00* Test Item Value Reference Range Interpretation Comme nts IRON, SERUM (test code = 2222) 11 UG/DL UNSATURATED IBC (test code = 33562) 442 UG/DL CALC TOTAL IBC (test code = 2077) 453 UG/DL CALC % IRON SAT (test code = 2079) 2 % [id number] 00:00:00* Test Item Value Reference Range Interpretation Comme nts FERRITIN (test code = 2075) 3 NG/ML [id number] 00:00:00* Test Item Value Reference Range Interpretation Comme nts TRANSFERRIN (test code = 4936) 385 MG/DL TSH, THIRD [id number] 06:15:03* Test Item Value Reference Range Interpretation Comme nts TSH, THIRD GENERATION (test code = 2821) 0.675 UIU/ML 0.400-4.100 UNLESS OTHERWISE INDICATED, ALL TESTING PERFORMED [facility] [address] [place] [address] EMBROIDERY OPERATOR: NICOLE GUSMAN M.D. CLIA NUMBER [id number] [facility] [place]. [id number] CBC W/AUTO DIFF WITH [id number] 02:57:36* Test Item Value Reference Range Interpretation [...] 0.00-0.10 ABS NUCLEATED RBCS (test code = 50672) 0.00 K/UL 0.00-0.11 [id number] 00:00:00* Test Item Value Reference Range Interpretation Comme nts TSH, THIRD GENERATION (test code = 2821) 0.675 UIU/ML [facility] W/AUTO [id number] 00:00:00* Test Item Value Reference Range Interpretation [...] ABS NUCLEATED RBCS (test cod e = 71766) 0.00 K/UL Darryl [id number] 00:00:00* Test Item Value Reference Range Interpretation Comme nts TSH, THIRD GENERATION (test code = 2821) 0.675 UIU/ML Darryl WaggonerCBC W/AUTO [id number] 00:00:00* Test Item Value Reference Range Interpretation [...] ABS NUCLEATED RBCS (test cod e = 55045) 0.00 K/UL Darryl [id number] 00:00:00* Test Item Value Reference Range Interpretation Comme nts TSH, THIRD GENERATION (test code = 2821) 0.675 UIU/ML Darryl WaggonerCBC W/AUTO [id number] 00:00:00* Test Item Value Reference Range Interpretation [...] ABS NUCLEATED RBCS (test cod e = 00276) 0.00 K/UL Darryl [id number] 00:00:00* Test Item Value Reference Range Interpretation Comme nts TSH, THIRD GENERATION (test code = 2821) 0.675 UIU/ML Darryl WaggonerCBC W/AUTO [id number] 00:00:00* Test Item Value Reference Range Interpretation [...] ABS NUCLEATED RBCS (test cod e = 32329) 0.00 K/UL Darryl [id number] 00:00:00* Test Item Value Reference Range Interpretation Comme nts TSH, THIRD GENERATION (test code = 2821) 0.675 UIU/ML Darryl WaggonerCBC W/AUTO [id number] 00:00:00* Test Item Value Reference Range Interpretation [...] ABS NUCLEATED RBCS (test cod e = 47805) 0.00 K/UL Darryl Ackerman [id number] 00:00:00* Test Item Value Reference Range Interpretation Comme nts TSH, THIRD GENERATION (test code = 2821) 0.675 UIU/ML Darryl Ackerman [facility] W/AUTO [id number] 00:00:00* Test Item Value Reference Range Interpretation [...] ABS NUCLEATED RBCS (test cod e = 34918) 0.00 K/UL Darryl [id number] 00:00:00* Test Item Value Reference Range Interpretation Comme nts TSH, THIRD GENERATION (test code = 2821) 0.675 UIU/ML Darryl WaggonerCBC W/AUTO [id number] 00:00:00* Test Item Value Reference Range Interpretation [...] ABS NUCLEATED RBCS (test cod e = 08004) 0.00 K/UL Darryl [id number] 00:00:00* Test Item Value Reference Range Interpretation Comme nts TSH, THIRD GENERATION (test code = 2821) 0.675 UIU/ML Darryl WaggonerCBC W/AUTO [id number] 00:00:00* Test Item Value Reference Range Interpretation [...] ABS NUCLEATED RBCS (test cod e = 10367) 0.00 K/UL Darryl WaggonerCBC W/AUTO [id number] 00:00:00* Test Item Value Reference Range Interpretation [...] ABS NUCLEATED RBCS (test cod e = 80999) 0.00 K/UL [id number] 00:00:00* Test Item Value Reference Range Interpretation Comme nts TSH, THIRD GENERATION (test code = 2821) 0.675 UIU/ML CBC W/AUTO [id number] 00:00:00* Test Item Value Reference Range Interpretation [...] ABS NUCLEATED RBCS (test cod e = 14257) 0.00 K/UL [id number] 00:00:00* Test Item Value Reference Range Interpretation Comme nts TSH, THIRD GENERATION (test code = 2821) 0.675 UIU/ML Notes Date/Time Note Provider Source 2025-04-14 11:33:02 Patient given discharge instructions on abdominal pain. Given prescription X 1 for bentyl. Pt advised to follow up with pcp. Pt left ER ambulatory, no signs of distress. [facility] [employer] 2025-04-14 08:08:05 Patient states: "I do have GI issues, gastritis and esophagitis. I had to stop taking the meds because it caused my anemia to be worse. I have zofran and take that. I'm just having sharp stabbing pain." Reports pain started Sunday. [facility] 2025-04-14 07:58:00 [facility] Emergency Department Note Patient Name: [...] anemia. She has not yet consulted her service writer to discuss alternative treatments, with an appointment [...] 0.01 - 0.07 10*3/uL COMP. METABOLIC PANEL (36669) - Abnormal NA 138 135 - 145 [...] contrast Cbc with Diff Comp. Metabolic Panel (69011) Lipase POCT Test Urinalysis Orders Placed This [...] Specialty: FAMILY MEDICINE Relationship: PCP - General [address] [place] [id number] Instructions: For follow up of the presenting symptoms. [facility] Specialty: Emergency Medicine [address] [place] [id number] Instructions: If symptoms worsen as documented in the discharge Electronically signed by: Hermilo Ricks DO 04/14/25 1109 [facility] 2025-03-09 02:45:01 Pt given printed and [...] steady gait, in no apparent distress, T [facility] 2025-03-08 21:30:20 Pt arrived ambulatory without assist. Pt with her, okay to discuss care with him. Pt c/o migraine that started today and left ovary pain since Sunday. Duyen Pereira RN [facility] 2025-01-27 13:53:03 Pt given printed and [...] with steady gait, in no apparent distress, [facility] 2025-01-27 12:24:45 Patient arrived ambulatory c/o headache that started approximately at midnight associated with vomiting and sensitivity to lights. Patient attempted to take ibuprofen when she vomited the medication. Patient has frequent headaches and diagnosed with chronic migraines. Celina Proctor RN [facility] 2025-01-21 08:15:25 Pt has been scheduled Tanya Velasco [facility] 2025-01-19 13:34:00 Mini Zhu is a 34 year old female Patient returning missed call to schedule PGY appointment. She states she did not have any voicemails. Please advise [facility] 2025-01-17 04:21:41 Awake, alert oriented X4, [...] with steady gait. T Senia Narvaez RN [facility] 2025-01-17 02:22:34 Cc: abdominal pain, N/V, and migraine began at 11PM 01/16 T [facility] 2025-01-16 10:05:56 2nd attempt no answer T Tanya Velasco [facility] 2025-01-15 12:25:21 1st attempt to contact pt, no answer [facility] 2025-01-13 10:37:29 Mini Zhu is a 34 year old female Pt calling wanting to r/s her appt that was scheduled for 01/16/25. Please assist [phone] (home) [phone] (work) [facility] 2025-01-05 09:43:48 Pt given printed and [...] no apparent distress. Left with spouse. Trista Cornoel RN [facility] 2025-01-05 09:27:55 [facility] ED Transfer of Care Note. [...] components within normal limits COMP. METABOLIC PANEL (30479) - Abnormal; Notable for the following components: [...] Additional Notes: ED Course as of 01/05/25 09SunJan 05, 2025 0548 HGB(!): 9.4 Chronic [PS] ED Course User Index [PS] Hermilo Ricks DO Diagnosis/Impression as of 01/05/25927 Acute viral syndrome Nausea vomiting and diarrhea Medical Decision Making Amount and/or Complexity of Data Reviewed Labs: ordered. Decision-making details documented in ED Course. Radiology: ordered. Risk Prescription drug management. Disposition: Discharged Home Social Determinants of Health: None ED Disposition ED Disposition Discharge Condition Stable Comment -- T [facility] 2025-01-05 08:39:35 Patient given ice water to po challenge [facility] Celina Proctor RN [facility] 2025-01-05 07:05:00 Nurse Report Report received from LINA Martines. Chief complaint, assessment findings, and orders reviewed. Plan of care discussed with both nurses. Trista M Coronel, RN [facility] 2025-01-05 05:35:15 Patient up using the bathroom, ambulated independently with a steady gait. Back to bed, on monitor, updated on plan of care. Call light within reach. Bobbi Siddiqi RN [facility] 2025-01-05 05:09:11 C/o cough, body aches, chills, vomiting, nausea, diarrhea x4 days Feels like she's been running a fever but has no thermometer Jess Gonzalez RN [facility] 2024-12-18 01:21:52 Awake, alert oriented X4, [...] upon discharge Pt ambulated to the [facility] with steady gait IO ASSISTANT Kait Seay RN [facility]2025-03-05 23:49:02 Patient arrived ambulatory to ED c/o right sided migraine that worsened tonight. Oral sx on 12/05, had three teeth taken out. Abx have been finished already. Vomited tonight and made her migraine worse. Patient states Zofran is not working anymore. [facility]2025-02-14 00:00:00 Darryl Arriaga [facility]2025-02-13 00:00:00 Daryrl Arriaga [facility]2025-02-04 22:45:36 Pt given printed and verbal discharge [...] without assist, in no apparent distress, [place] 955935-02-04 20:59:33 CC: R sided jaw pain that radiates down her neck. Pain began at 9PM. Took Ibu 800mg at 2PM, applying warm/cold compress Patel Critical access hospitalHmyehj1618-98-09 20:55:00 [facility] Emergency Department Note Patient Name: Mini Zhu Date of : 1990 33 year old female Treatment Room: [place] [address] Primary Care Physician: Rachelle [facility] Patient Escorted by: Family [5] Mode of Arrival: Personal means [1] EMS Treatment Prior to ED Arrival: DIRECTOR BUSINESS INTEGRATION treatment: Other (comment) DIRECTOR BUSINESS INTEGRATION treatment comments: See triage note Travel and [...] [facility] [place] for further management prompting ED visit. History provided by: Patient and medical records stone polisher used: No Dental Problem Location: Lower Lower [...] (eight) hours as needed for Alternate with [place] for pain scale 1-3. CONTINUE taking these medications which have NOT CHANGED ALBUTEROL 90 MCG/ACTUATION INHALER Inhale 2 Puffs every 4 (four) hours as needed for Wheezing or Shortness of Breath. AZITHROMYCIN (ZITHROMAX Z-RAMESH) 250 MG TABLET Take 2 tablets by mouth SEE-INSTRUCTIONS. Take 500 mg day 1, then 250 mg days 2 to 5. MUSHVGRUTQ-CGHBYYBVQFDOA-BONA 50-325-40 MG TABLET Take 1 tablet by mouth every 6 (six) hours as needed (Headache). TIKBBHOHTN-JOOWGWKQLZUQC-RXMW 50-325-40 MG TABLET Take 1 tablet by [...] Electronically signed by: Selene Parra MD 11/18/242237 [place] [address]-01-25 22:45:36 ERP MSE patient [place] [address]-01-25 22:35:26 CC: tail bone pain, began today 5PM. Patient states she was horse playing, and got kneed on the tailbone. [facility] Nicole Patel Critical access hospitalLyoeby1386-03-97 00:00:00 Darryl [facility]2024-11-11 00:00:00 Darryl [facility]2024-10-11 10:46:00 Written/verbal D/c instructions, out of er no distress, [place] 343714-10-11 10:30:00 Pt has had no emesis since arrival T [place] 667014-10-11 07:48:10 Mini Zhu is a 33 year old female c/o n/v/d since Sunday, states this morning at 0700 threw up blood, no abdominal pain, states now has a headache, alert cheerful, states hx gastritis, esophagitis and iron def anemia, ran out of pantoprazole and takes iron occasionally. States her bipolar meds aren't staying down either, [facility] Sheila Starkey Critical access hospitalQcqsyl4877-25-01 00:00:00 [facility] 05:48:27 Discharge information given verbally and in writing, including of s/s of when to return to ER Patient denies questions and verbalized understanding. IV discontinued without issue. Pt ambulated off unit with steady gate, vital signs stable, no acute distress. [facility] Jovana Hooper [place] 667014-09-20 02:26:00 Lower abd pain since midnight, and back pain, pt states she has shingles and has been using tropical cream for tx. [place] 343714-06-04 00:00:00 [facility]2024-05-29 06:06:53 Pt given printed and verbal discharge [...] gait, in no apparent distress. Ashly Srivastava Critical access hospitalNbqalg2995-98-81 02:07:22 Pt given urine cup and placed in the lobby, pt advice to notify nurse with any other concerns or if symptoms worsen. [facility]n2659[facility]-13 02:02:32 C/O states that she began vomited blood X5 since midnight. 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 Kait Seay [facility] - Kslryy4138-12-63 03:51:00 [facility] Emergency Department Note Patient Name: Mini Zhu Date of : 1990 33 year old female Treatment Room: TX5/MT5 Primary Care Physician: Rachelle Ackerman [facility] Patient Escorted by: Family [5] Mode of Arrival: Personal means [1] EMS Treatment Prior to ED Arrival: DIRECTOR BUSINESS INTEGRATION treatment: None Travel and Exposure Screening: Symptoms [...] by: Patient, medical records and significant other stone polisher used: No Abdominal Pain Pain location: Generalized [...] Lab Results: Lab Results COMP. METABOLIC PANEL (31051) - Abnormal Result Value Ref Range NA [...] then 250 mg days 2 to 5. NYSOAEXLVS-JLVDQOVQKGFOF-LCFF 50-325-40 MG TABLET Take 1 tablet by [...] for follow-up Tommie Arita MD Specialty: IM-GASTROENTEROLOGY [facility] [address] [id number] Electronically signed by: Selene Parra MD 02/03/24 0658 T [facility] - Mbtlqh6820-48-47 00:43:46 Pt given printed and verbal discharge [...] leaving in no apparent distress, Ashly Gibson Critical access hospitalAdpgtl2044-52-84 00:31:47 Pt notified covid test was inconclusive. She refuses additional covid swabbing. She reports continuing head congestion. Dr. Marie in to see pt at this time. [facility]5416-85-77 22:22:36 Pt arrived ambulatory with c/o congestion. Pt states I have bad congestion, sneezing, coughing and headache. No fever. I vomited once prior to coming to the ED." Duyen Pereira [place] 955934-03-13 05:22:47 Awake, alert oriented X4, respiratory even [...] upon discharge Pt ambulated to the [facility] with steady gait Kait Seay [place] 955934-03-13 03:48:35 Pt arrived with c/ migraine headache off-and-on for 7 days. Pt took Midol at 6:30pm. Pt report the Midol help for about 30 minutes then the headache came back. Pt states she has tried Ibu, tylenol, and naproxen but none of these medications have helped her migraine. Nicole Patel [facility]UT - Ymvxbp4604-73-17 03:43:00 [facility] Emergency Department Note Patient Name: Mini Zhu Date of : 1990 33 year old female Treatment Room: [place] [address] Primary Care Physician: Rachelle Ackerman [facility] Patient Escorted by: Family [5] Mode of Arrival: Personal means [1] EMS Treatment Prior to ED Arrival: DIRECTOR BUSINESS INTEGRATION treatment: None Travel and Exposure Screening: Symptoms [...] History provided by: Patient and medical records stone polisher used: No Headache Pain location: Frontal Quality: [...] this encounter. Orders Placed This Encounter Medications rcqedsyfcy-tseslebsywhkj-qthp (ESGIC) 50-325-40 mg tablet 1 tablet First Provider Eval: ED Events Date/Time Event User Comments 12/26/23 7550 Medical Screening Begins SELENE PARRA MD -- [...] Follow-up: Contact information for follow-up Darryl Ackerman [facility], [facility] Relationship: PCP - General [address] [place] [phone] Demetrio Stout MD Specialty: PN-NEUROLOGY [facility] [address] [place] [phone] Electronically signed by: Selene Parra MD 12/26/23439 T [facility] - Bibjzl7917-19-22 10:50:14 Patient discharged home. Follow up with pcp in 2-3 days. Return with worsening symptoms. Verbalized dc instructions. Signed paper work. [place] 955934-02-06 06:42:12 Bilateral lower abdominal pain on and off for month. Pain started this morning at 1230 and hasn't stopped. Saw by OB, US ordered pt unable to pay for it. Was instructed to got to ER if got worse. Vomited 3 time this am [place] 955934-01-29 01:09:27 Pt given printed and verbal discharge [...] steady gait, in no apparent distress. Peraza [place] 955934-01-29 00:35:00 PO challenge completed. Patient tolerating water and crackers. [place] 205544-01-29 00:06:08 Patient arrived ambulatory to ED c/o vomiting. Patient states vomiting up her dinner and then vomiting "bright red chunks." Diarrhea x a couple of days. No medications taken DIRECTOR BUSINESS INTEGRATION. [place] 955934-01-29 00:03:00 [facility] Emergency Department Note Patient Name: Mini Zhu Date of : 1990 32 year old female Treatment Room: Room/bed info not found Primary Care Physician: Rachelle Ackerman [facility] Patient Escorted by: Family [5] Mode of Arrival: Personal means [1] EMS Treatment Prior to ED Arrival: DIRECTOR BUSINESS INTEGRATION treatment: None Travel and Exposure Screening: Symptoms [...] 200 mg capsule Comments: Reason for Stopping: kmekuyvsdn-ikfvsftdozdcb-quvg 50-325-40 mg tablet Comments: Reason for Stopping: megestroL 40 mg tablet Comments: Reason for Stopping: tamsulosin 0.4 mg 24 hr capsule Comments: Reason for Stopping: ketorolac 10 mg tablet Comments: Reason for Stopping: Follow-up: Electronically signed by: Chayo Srivastava DO 11/12/23 0104 [facility]2024-01-13 20:56:44 Pt discharged home, given all education and information regarding s/s of worsening condition; prescription use; pain and fever management as well as the importance of follow up. Pt verbalized understanding. Alert and ambulatory to [facility] with family. [facility] Wilman Felix Critical access hospitalNmqhsl1752-69-36 20:24:32 Pt arrived ambulatory with complaints of viral symptoms x2 days. Pt is positive and she took home test today and is positive too. Pt was concerned because her fever was 101 and her husbands only hit 100f. Pt has n/v but hasn't taken her Zofran. [facility] Cora Peraza Critical access hospitalWhonlx6313-97-39 06:48:38 Prescriptions provided Pt verbalized understanding of [...] with steady gait, in no apparent distress. [place] 343713-09-10 05:26:28 Pt arrives ambulatory to ED c/o left sided lower abdominal pain. She reports that she came in last week and was found to have multiple gynecological issues and was given multiple prescriptions which she says has not helped her pain issue. LMP: 06/12/2023 Ashly Srivastava RNMarion HospitalJekehd6254-13-28 05:14:00 [facility] Emergency Department Note Patient Name: Mini Zhu Date of : 1990 32 year old female Treatment Room: [facility] FT/HKPO90-40 Primary Care Physician: Rachelle Ackerman [facility] Patient Escorted by: Family [5] Mode of Arrival: Personal means [1] EMS Treatment Prior to ED Arrival: DIRECTOR BUSINESS INTEGRATION treatment: None Travel and Exposure Screening: Symptoms [...] by: Patient, medical records and significant other stone polisher used: No Abdominal Pain Pain location: LLQ [...] (three) times daily as needed for Cough. GCYTMGGDOV-KVLEGDNTPMIGR-PGFK 50-325-40 MG TABLET Take 1 tablet by [...] Jaime Rebolledo MD Specialty: ORT-ORTHOPAEDIC SURGERY [address] [facility] [phone] Electronically signed by: Selene Parra MD 06/24/23632 T [facility] HospitalRazcdz0658-76-91 01:30:00 Awake, alert oriented X4, respiratory even [...] ambulated to the lobby with steady gait [place] [address]-09-03 23:50:11 C/O head congestion, chest congestion, body aches, sore throat since last Sunday, pt denies any fever. [facility] Kait Seay RNJenn[place] [address]-09-03 23:45:00 [facility] Emergency Department Note Patient Name: Mini Zhu Date of : 1990 32 year old female Treatment Room: Room/bed info not found Primary Care Physician: Rachelle Ackerman [facility] Patient Escorted by: Family [5] Mode of Arrival: Personal means [1] EMS Treatment Prior to ED Arrival: DIRECTOR BUSINESS INTEGRATION treatment: None Travel and Exposure Screening: Symptoms [...] clinic, negative x2. Recent encounters: 1. 06/11/23. [facility] ED. Pelvic pain. PID prophylaxis in ED. US Pelvis, fibroid, right ovarian cyst, notorsion, thickened endometrium 2. 06/11/23. [facility]. After ED encounter. Previously scheduled appointment. Trichomonas. [...] taking these medications which have NOT CHANGED HRVFULDVSG-RGCJEBZQOGSHU-CRCP 50-325-40 MG TABLET Take 1 tablet by [...] Electronically signed by: Michelle Terry MD 06/18/23112 [facility] - Scxmzp0145-00-98 04:46:51 Pt given printed and verbal discharge [...] no apparent distress, accompanied by her . [facility] HospitalPcgpxc8795-35-95 23:09:00 Patient states: "I've been having suprapubic pain for about a week now, worst was since . 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 I took Midol an hour ago for my painbut no relief." Yenny Blevins Critical access hospitalHmbzna9621-03-40 23:06:00 [facility] ED Transfer of Care Note. [...] components within normal limits COMP. METABOLIC PANEL (00339) - Abnormal; Notable for the following components: [...] Severe endometrial thickening measuring 2.5 cm. AFC: 04100 RL: 460 End of report. 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 Lechuga [facility] [address] Selene Parra MD 06/12/23431 T [facility] HospitalStwpii6276-38-68 04:02:21 Pt given printed and verbal discharge [...] with steady gait, in no apparent distress. [facility]2023-08-14 01:27:07 Pt vomited approx 200ml of water and bile. No blood noted. [facility]2023-08-14 00:35:04 Pt arrived ambulatory with complaints of one episode of vomiting blood. Pt reports she became nauseated and at first threw up bile but then threw up dark red blood. Pt denies dark stools or excessiveNSAID use. Pt has been having intermittent abdominal pain for a week. Hx: Migraines, Bipolar, Anemia Xuan [facility]
--- NOTE | 2025-07-15 22:52 | ER ---
Nurse's Notes [facility] Name: Judith Tobar Age: 34 yrs Sex: Female : 1990 Arrival Date: 07/15/2025 Time: 20:57 Bed 14 Private MD: Diagnosis: Localized swelling, mass and lump, unspecified-breast Presentation: 07/15 21:23 Chief complaint: Patient states: RT BREAST PAIN ON THE , GIVEN ANTIBIOTICS WHICH dd2 SHE FINISHED. PT REPORTS THAT AT 1930 THE PAIN RETURNED. PT DENIES FEVER. Coronavirus screen: At this time, the client does not indicate any symptoms associated with coronavirus-19. Ebola Screen: No symptoms or risks identified at this time. Initial Sepsis Screen: Does the patient meet any 2 criteria? No. Patient's initial sepsis screen is negative. Does the patient have a suspected source of infection? No. Patient's initial sepsis screen is negative. Risk Assessment: Do you want to hurt yourself or someone else? Patient reports no desire to harm self or others. Onset of symptoms was July 15, 2025 at 19:30. 21:23 Method Of Arrival: Ambulatory dd2 21:23 Acuity: SHABBIR 3 dd2 Triage Assessment: 21:27 General: Appears in no apparent distress. uncomfortable, Behavior is calm, cooperative, dd2 appropriate for age. Pain: Complains of pain in right breast. Derm: SWELLING TO RT BREAST. 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 - Infectious Disease History:: Denies. - Social history:: Smoking status: Reported history of juuling and/or vaping. Screenin:30 [facility] ED Fall Risk Assessment (Adult) History of falling in the last 3 months, cc6 including since admission No falls in past 3 months (0 pts) Confusion or Disorientation No (0 pts) Intoxicated or Sedated No (0 pts) Impaired Gait No (0 pts) Mobility Assist Device Used No (0 pt) Altered Elimination No (0 pt) Score/Fall Risk Level 0 - 2 = Low Risk Oriented to surroundings, Maintained a safe environment, Educated pt \T\ family on fall prevention, incl call for assistance when getting out of bed. Abuse screen: Denies threats or abuse. Denies injuries from another. Nutritional screening: No deficits noted. Tuberculosis screening: No symptoms or risk factors identified. Assessment: 21:21 General: Appears in no apparent distress. uncomfortable, Behavior is calm, cooperative. cc6 Pain: Complains of pain in right breast Pain does not radiate. Pain currently is 9 out of 10 on a pain scale. Quality of pain is described as burning, Pain began 1 week ago Is continuous. Neuro: Level of Consciousness is awake, alert, obeys commands, Oriented to person, place, time, situation. Cardiovascular: Patient's skin is warm and dry. Respiratory: Airway is patent Respiratory effort is even, unlabored, Respiratory pattern is regular, symmetrical. GI: No signs and/or symptoms were reported involving the gastrointestinal system. : No signs and/or symptoms were reported regarding the genitourinary system. EENT: No signs and/or symptoms were reported regarding the EENT system. Derm: No signs and/or symptoms reported regarding the dermatologic system. Musculoskeletal: Circulation, motion, and sensation intact. Range of motion: intact in all extremities. 22:45 Reassessment: Patient and/or family updated on plan of care and expected duration. Pain cc6 level reassessed. Patient is alert, oriented x 3, equal unlabored respirations, skin warm/dry/pink. Vital Signs: 21:00 BP 114 / 56; Pulse 99; Resp 17; Pulse Ox 100% on R/A; cc6 21:23 BP 131 / 90; Pulse 83; Resp 16; Temp 97.9; Pulse Ox 100% on R/A; Weight 80.29 kg; Pain dd2 10/10; 23:16 BP 126 / 93; Pulse 80; Resp 18; Pulse Ox 100% on R/A; cc6 21:23 Pain Scale: Adult dd2 ED Course: 21:00 Patient arrived in ED. mr 21:17 Stacy Bass FNP-C [facility] kb 21:17 Lopez Villafuerte DO is Attending Physician. kb 21:27 Triage completed. dd2 21:27 Arm band placed on right wrist. dd2 21:27 Patient has correct armband on for positive identification. Bed in low position. Call cc6 light in reach. Side rails up X 1. Provided Education on: use of call light. 23:02 Ny Grimm, RN is Primary Nurse. cc6 23:40 No provider procedures requiring assistance completed. Patient did not have IV access cc6 during this emergency room visit. Administered Medications: 23:00 Drug: HYDROcodone-acetaminophen PO 5 mg-325 mg 1 tabs PO once Route: PO; cc6 23:17 Follow up: Response: No adverse reaction; Pain is decreased cc6 Medication: 23:41 VIS not applicable for this client. cc6 Outcome: 22:50 Discharge ordered by . angela 23:41 Discharged to home ambulatory, cc6 23:41 Condition: stable 23:41 Discharge instructions given to patient, Instructed on discharge instructions, follow up and referral plans. medication usage, Demonstrated understanding of instructions, follow-up care, medications, Prescriptions given X 1, 23:42 Patient left the ED. cc6 Signatures: Stacy Bass, SENIOR RADIATION THERAPIST-C SENIOR RADIATION THERAPIST-CkWindy Sanchez, Reg Reg mr Ny Grimm, RN RN cc6 MADDIE SARMIENTO, LINA RN dd2
--- NOTE | 2025-07-15 22:52 | EDPHYS ---
Physician Documentation [facility] Name: Judith Tobar Age: 34 yrs Sex: Female : 1990 Arrival Date: 07/15/2025 Time: 20:57 Bed 14 Private MD: ED Physician Lopez Villafuerte HPI: 07/15 23:25 This 34 yrs old Female presents to ER via Ambulatory with complaints of Breast kb infection. 23:25 Patient is a 34-year-old female who presents for right breast pain. States she came in on 05 July for this and was prescribed Keflex for an infection. States the pain resolved and she completed the Keflex but today the pain started up again. Denies fever. States she thinks she needs a different antibiotic.. 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 - Infectious Disease History:: Denies. - Social history:: Smoking status: Reported history of juuling and/or vaping. ROS: 23:25 Constitutional: As per HPI kb Exam: 23:25 Constitutional: This is a well developed, well nourished patient who is awake, alert, kb and in no acute distress. Head/Face: Normocephalic, atraumatic. ENT: Moist Mucous membranes Cardiovascular: Regular rate Respiratory: Respirations even and unlabored. No increased work of breathing. Talking in full sentences Skin: Warm, dry with normal turgor. Normal color. MS/ Extremity: Pulses equal, no cyanosis. Neurovascular intact. Full, normal range of motion. Neuro: Awake and alert, GCS 15, oriented to person, place, time, and situation. 23:25 Chest/axilla: Inspection: normal, Palpation: tenderness, that is moderate, of the right breast, Breasts: mass(es), that is moderate-sized, in the right breast, that is tender, tenderness, that is moderate, of the right breast, Vital Signs: 21:00 BP 114 / 56; Pulse 99; Resp 17; Pulse Ox 100% on R/A; cc6 21:23 BP 131 / 90; Pulse 83; Resp 16; Temp 97.9; Pulse Ox 100% on R/A; Weight 80.29 kg; Pain dd2 07/24; 23:16 BP 126 / 93; Pulse 80; Resp 18; Pulse Ox 100% on R/A; cc6 21:23 Pain Scale: Adult dd2 MDM: 21:18 Medical Screening Exam initiated kb 23:26 Differential diagnosis: Abscess, cyst, fibrous tissue, malignancy, cellulitis. Data kb reviewed: vital signs, nurses notes. Counseling: I had a detailed discussion with the patient and/or guardian regarding the historical points, exam findings, and any diagnostic results supporting the discharge/admit diagnosis, the need for outpatient follow up, a family practitioner, to return to the emergency department if symptoms worsen or persist or if there are any questions or concerns that arise at home. ED course: No erythema, swelling noted to breast. Patient educated to follow-up with DESIGN SALES CONSULTANT and/or PCP for further evaluation including possible mammogram or ultrasound.. Administered Medications: 23:00 Drug: HYDROcodone-acetaminophen PO 5 mg-325 mg 1 tabs PO once Route: PO; cc6 23:17 Follow up: Response: No adverse reaction; Pain is decreased cc6 Disposition: 07/16 04:40 Co-signature as Attending Physician, Lopez Villafuerte DO I reviewed the patient's care tt7 provided by the Advanced Practice Provider and agree with the diagnosis and treatment plan. Disposition Summary: 07/15/25 22:50 Discharge Ordered Notes: Location: Home kb Condition: Stable kb Diagnosis - Localized swelling, mass and lump, unspecified - breast kb Followup: kb - With: Emergency Department - When: As needed - Reason: Worsening of condition Followup: kb - With: Private Physician - When: 2 - 3 days - Reason: Recheck today's complaints, Continuance of care, Re-evaluation by your physician Discharge Instructions: - Discharge Summary Sheet kb - Breast Tenderness kb - Fibrocystic Breast Changes, [id number] kb Forms: - Medication Reconciliation Form kb - Antibiotic Education kb - Prescription Opioid Use kb - Patient Portal Instructions kb - Leadership Thank You Letter kb Prescriptions: - Bactrim DS 800-160 mg Oral Tablet - take 1 tablet ORAL route every 12 hours for 10 days; 20 tablet; Refills: 0, kb Product Selection Permitted Signatures: Stacy Bass, NASRIN CURRAN-Ny Heller, RN RN cc6 MADDIE SARMIENTO RN RN dd2 Lopez Villafuerte, DO HOYOS tt7
[2025-07-15] MEDS ORDERED: HYDROCODONE/APAP 5/325 MG TAB ONE (23:08)
[2025-07-16 00:35] VITALS: O2SAT 100
[2025-07-16 00:47] VITALS: TEMP 97.9
[2025-07-16 00:49] VITALS: BP 126/93
== END 2025-07-15 23:42 | disposition home or self-care (01) ==
LOC: ER 20:57
DX: N63.10 Unspecified lump in the right breast, unspecified quadrant (principal); N64.4 Mastodynia; F41.9 Anxiety disorder, unspecified; D64.9 Anemia, unspecified; F17.290 Nicotine dependence, other tobacco product, uncomplicated; Z88.8 Allergy status to other drugs, medicaments and biological substances
CPT/HCPCS: 99283

== ENCOUNTER 2025-07-29 07:46 | Emergency (ER) | payer SELFPAY ==
--- OUTSIDE RECORDS SUMMARY | 2025-07-29 08:02 | XMS REPORT | Continuity of Care Document ---
Author Name Unknown Address [address] [facility] [address] [place] [address] Organization [facility] [place] Address [address] [facility] [address] [place] [address] Care Team Providers Care Pollution Control Technician Name Role Phone Liratj CURRAN, Ashley Primary Care Physician Nurse, Dat Rmchp Rgv Cprit Obgyn Attending Clini zenobia Unavailable Matteo LEONARD, Lesa Frederick Attending Clinician HERMILO RICKS Attending Clinician Unavailable HERMILO RICKS Attending Clinician Unavailable DONI MARIE Attending Clinician Unavailable DONI MARIE Attending Clinician Unavailable Pgy4 Attending Clinician Unavailable Kaye House MD Attending Clinician [phone] PATRICE HOLLAND Attending Clinician Unavailab Patrice Nevarez MD Attending Clinician + [phone] SELENE PARRA Attending Clinician Unavailable SELENE PARRA Attending Clinician Unavailable Selene Parra MD Attending Clinician + [phone] Hermilo Ricks DO Attending Clinician +[phone] Doni Marie MD Attending Clinician +[phone] GABY TERRY Attending Clinician Unavailab shanna Terry GAMING CASHIER, Gaby Attending Clinician +[phone] CHRISTY RG Attending Clinician Unavailable CHRISTY RG Attending Clinician Unavailable Landy CLEVELAND, Christy Matthews Attending Clinician +- [phone] CHAYO SRIVASTAVA Attending Clinician Unavailab Chayo Davis DO Attending Clinician [phone] Kavita OJEDA Attending Clinician Unavailable Rusty PAC, Kavita Rowe Attending Clinician [phone] Rama GUZMANP, Danie Ackerman Attending Clinician [phone] MEMO RESENDIZ Attending Clinician Unavailable Memo Resendiz MD Attending Clinician [phone] DANII ARRIAGA Attending Clinician Unavailable Rose Hoff MD Attending Clinician [phone] Danii Ferrer Attending Clinician +[phone] MICHELLE TERRY Attending Clinician UnavailMichelle Evans MD Attending Clinician + [phone] RAVEN LIEBERMAN Attending Clinician Unavailable Liebermanmolly OSORIO, Raven S Attending Clinician [phone] Doctor Unassigned, Hodges Attending Clinician U SURAJ Blanca Attending Clinician UnavailSuraj Kee MD Attending Clinician + [phone] CAT RUTLEDGE Attending Clinician Unavailable LISA TRAN Attending Clinician Unavailable Lisa Cruz Attending Clinician + [phone] CL GATES Attending Clinician Unavailable ROCHELLE GOLD [...] Number Effective Date Expirati on Date Source [facility] [id number] 2023 00:00:00 Problems Condition Name Condition Details Condition Category Status Onset Date Resolution Date Last Treatment Date Treating Clinician Comments Source Acute nonintract able headache, unspecifie d headache type Acute nonintract able headache, unspecifie d headache type Disease Active 3- 00:00: 00 [facility] Other migraine without status migrainosu s, not intractabl e Other migraine without status migrainosu s, not intractabl e Disease Active 3 00:00: 00 [facility] Lower abdominal pain Lower abdominal pain Disease Active 1- 00:00: 00 [facility] Ureterolit hiasis Ureterolit hiasis Disease Active 8- 00:00: 00 [facility] No known active problems No known active problems Disease [facility] Allergies, Adverse Reactions, Alerts Allergy Name Allergy Type Status Severity Reaction(s) Onset Date Inactive Date Treating Clinician Comments Source SUMATRIP FRANKS DRUG INGREDI Active Palpitations 04-14 00:00: 00 [facility] Sumatrip franks Propensi ty to adverse reaction s Active Palpitations 04-14 00:00: 00 Rapid heart rate [facility] BUSPIRON E DRUG INGREDI Active Other-Cmnt 12-17 00:00: 00 [facility] Buspiron e Propensi ty to adverse reaction s Active Other - See comments 12-17 00:00: 00 Gives SI thoughts [facility] GABAPENT IN DRUG INGREDI Active Other-Cmnt 2022-10 0 00:00: 00 [facility] Gabapent in Propensi ty to adverse reaction s Active Other - See comments 2022-10 0 00:00: 00 Manic episodes [facility] NO KNOWN ALLERGIE S Drug Class Active [facility] Social History Social Habit Start Date Stop Date Quantity Comments Source ASSERTION Possible [facility] Gender identity [facility] Sexual orientation U [facility] History of Social function 2025-02-04 00:00:00 2025-02-04 00:00:00 [facility] Exposure to SARS-CoV-2 (event) 2023-02-24 00:00:00 2023-03-06 22:59:00 Not sure [facility] Sex assigned at 1990 00:00:00 1990 00:00:00 [facility] Smoking Status Start Date Stop Date Source Tobacco smoking consumption unknown [facility] Medications Ordered Medication Name Filled Medication Name Start Date Stop Date Current Medication? Ordering Clinician Indication Dosage Frequency Signature (SIG) Comments Components Source iopamidol (ISOVUE 370-500 mL) injection 85 mL 04-14 15:45: 00 04-14 15:45 :00 No [id number] 85mL 85 mL, Intravenou s, ONCE, 1 dose, On Sun04/14/25 at 1045, Routine [facility] maalox/diph enhydrAMINE :lidocaine2 %viscous 1:1:1: suspension (COMPOUNDED ) 04-14 13:30: 00 04-14 13:45 :00 No 15mL 15 mL, Oral, ONCE, 1 dose, On Sun04/14/25 at 0830, Routine [facility] dicyclomine 20 mg tablet 04-14 00:00: 00 Yes [id number] 20mg Take 1 tablet by mouth 4 times daily. [facility] NaCl 0.9% (NS) bolus infusion 1,000 mL 03-09 06:30: 00 03-09 07:43 :00 No 1000mL at 999 mL/hr, 1,000 mL, IV Infusion, ONCE, 1 dose, On Sun03/09/25 at 0130, STAT [facility] methylpredn isolone sod succ (SOLU-MEDRO L) injection 125 mg 03-09 06:30: 00 03-09 05:37 :00 No 125mg 125 mg, Slow IV Push, ONCE NOW, 1 dose, On Sun03/09/25 at 0130, NICOLASA [facility] magnesium sulfate in D5W 1 gram/100 mL RTU IV Piggyback 1 g 03-09 06:30: 00 03-09 06:39 :00 No 1g 1 g, IV Piggyback, ONCE, 1 dose, On 03/09/25 at 0130, Administer over 60 Minutes, 100 mL [facility] ondansetron (ZOFRAN (PF)) injection 4 mg 03-09 04:00: 00 03-09 03:15 :00 No 4mg 4 mg, Slow IV Push, ONCE, 1 dose, On Sun03/08/25 at 2300, 2 mL [facility] ketorolac (TORADOL) injection 30 mg 03-09 04:00: 00 03-09 03:16 :00 No 30mg 30 mg, Slow IV Push, ONCE, 1 dose, On Sun03/08/25 at 2300, NICOLASA [facility] caffeine tablet 200 mg caffeine tablet 200 mg 03-09 03:00: 00 03-09 03:31 :00 No 200mg 200 mg, Oral, Once, 1 dose, On Sun03/08/25 at 2200, NICOLASA [facility] diphenhydrA MINE (BENADRYL) injection 25 mg 03-09 03:00: 00 03-09 03:16 :00 No 25mg 25 mg, Slow IV Push, ONCE, 1 dose, On Sun03/08/25 at 2200, STAT [facility] SUMAtriptan 50 mg tablet 03-09 00:00: 00 Yes [id number] 50mg Take 1 tablet by mouth 3 times daily as needed for Migraine. [facility] Lidocaine (LIDOCARE) 4 % patch 1 Patch 01-27 18:30: 00 01-28 06:29 :00 No 1{patch } 1 Patch, Topical, Administer over 12 Hours, ONCE, 1 dose, On Sun01/27/25 at 1330, Routine [facility] ketorolac (TORADOL) injection 30 mg 01-27 18:15: 00 01-27 17:57 :00 No 30mg 30 mg, Slow IV Push, ONCE, 1 dose, On Sun01/27/25 at 1315, Routine [facility] methocarbam oL (ROBAXIN) tablet 1,000 mg 01-27 17:45: 00 01-27 17:52 :00 No 1000mg 1,000 mg, Oral, ONCE, 1 dose, On Sun01/27/25 at 1245, NICOLASA [facility] diphenhydrA MINE (BENADRYL) injection 12.5 mg 01-27 17:45: 00 01-27 17:55 :00 No 12.5mg 12.5 mg, Slow IV Push, ONCE, 1 dose, On Sun01/27/25 at 1245, STAT [facility] metoclopram farzana HCl (REGLAN) injection 10 mg 01-27 17:45: 00 01-27 17:57 :00 No 10mg 10 mg, Slow IV Push, ONCE, 1 dose, On Sun01/27/25 at 1245, NICOLASA [facility] methocarbam oL 500 mg tablet 01-27 00:00: 00 02-04 00:00 :00 No [id number] 4 500mg Take 1 tablet by mouth 4 (four) times daily for 10 days. [facility] methylPREDN ISolone 4 mg tablets 01-27 00:00: 00 02-04 00:00 :00 No [id number] 4 Take by mouth SEE-INSTRU CTIONS. follow package directions [facility] lidocaine 5 % (700 mg/patch) patch 01-27 00:00: 00 02-04 00:00 :00 No [id number] 4 1{patch } Apply 1 Patch to area(s) in the morning for 30 doses. [facility] iopamidol (ISOVUE 370-500 mL) injection 85 mL 01-17 09:30: 00 01-17 09:30 :00 No [id number] 85mL 85 mL, Intravenou s, ONCE, 1 dose, On 01/17/25 at 0430, Routine [facility] ketorolac (TORADOL) injection 30 mg 01-17 09:15: 01-17 08:15 :00 No 30mg 30 mg, Slow IV Push, ONCE, 1 dose, On Sun01/17/25 at 0415, Routine [facility] diphenhydrA MINE (BENADRYL) injection 25 mg 01-17 08:15: 01-17 08:16 :00 No 25mg 25 mg, Slow IV Push, ONCE, 1 dose, On Sun01/17/25 at 0315, STAT [facility] metoclopram farzana HCl (REGLAN) injection 10 mg 01-17 08:15: 01-17 08:16 :00 No 10mg 10 mg, Slow IV Push, ONCE, 1 dose, On 01/17/25 at 031, NICOLASA [facility] Nitrofurant oin&Nit. Macrocryst (MACROBID) 100 mg capsule 01-17 00:00: 00 02-04 00:00 :00 No [id number] 100mg Take 1 capsule by mouth in the morning and 1 capsule in the evening. [facility] iopamidol (ISOVUE 370-500 mL) injection 85 mL 01-05 13:15: 01-05 13:15 :00 No [id number] 85mL 85 mL, Intravenou s, ONCE, 1 dose, On Sun01/05/25 at 0815, Routine [facility] NaCl 0.9% (NS) bolus infusion 1,000 mL 01-05 12:00: 01-05 14:39 :00 No 1000mL at 999 mL/hr, 1,000 mL, IV Piggyback, ONCE, 1 dose, On Sun01/05/25 at 0700, STAT [facility] NaCl 0.9% (NS) bolus infusion 1,000 mL 01-05 11:15: 00 01-05 10:56 :00 No 1000mL at 999 mL/hr, 1,000 mL, IV Piggyback, ONCE, 1 dose, On Sun01/05/25 at 0615, STAT [facility] ondansetron (ZOFRAN (PF)) injection 4 mg 01-05 11:00: 00 01-05 10:58 :00 No 4mg 4 mg, Slow IV Push, ONCE, 1 dose, On Sun01/05/25 at 0600, Administer over 2-5 Minutes, 2 mL [facility] butalbital- acetaminoph en-caff (ESGIC) 50-325-40 mg tablet 1 tablet 12-18 06:00: 00 12-18 06:24 :00 No 1{tbl} 1 tablet, Oral, ONCE, 1 dose, On Sun12/18/24 at 0000, NICOLASA [facility] diphenhydrA MINE (BENADRYL) injection 25 mg 12-18 06:00: 00 12-18 06:24 :00 No 25mg 25 mg, Slow IV Push, ONCE, 1 dose, On Ashley 12/18/24 at 0000, [facility] metoclopram farzana HCl (REGLAN) injection 10 mg 12-18 06:00: 00 12-18 06:24 :00 No 10mg 10 mg, Slow IV Push, ONCE, 1 dose, On Ashley 12/18/24 at 0000, [facility] metoclopram farzana 10 mg tablet [...] 1 dose, On Sun11/18/24 at 2330, Routine [facility] amoxicillin (TRIMOX) capsule 500 mg 11-19 04:30: 00 11-19 04:43 :00 No 500mg 500 mg, Oral, ONCE, 1 dose, On Sun11/18/24 at 2230, NICOLASA, Reason for Anti-Infec tive: Documented Infection, Documented Infection Site: HEENT, Duration of Therapy: Once (ED) [facility] ibuprofen 800 mg tablet 2- 00:00: 00 02-04 00:00 :00 No [id number] 800mg Take 1 tablet by mouth every 8 (eight) hours as needed for Alternate with [place] for pain scale 1-3. [facility] amoxicillin 500 mg capsule 11-18 00:00: 00 02-04 00:00 :00 No [id number] 500mg Take 1 capsule by mouth in the morning and 1 capsule at noon and 1 capsule in the evening. [facility] Bromfed DM 2 mg-30 mg-10 mg/5 mL oral syrup 1-08 00:00: 00 Yes 10mg/5 mL [facility] Waggoner metoclopram farzana HCl (REGLAN) injection 10 mg 2023-10 13:15: 00 07-25 13:23 :00 No 10mg 10 mg, Slow IV Push, ONCE, 1 dose, On Sun07/25/24 at 0815, NICOLASA [facility] pantoprazol e 40 mg EC tablet 2023-10 00:00: 00 Yes [id number] 40mg Take 1 tablet by mouth in the morning. [facility] metoclopram farzana HCl 10 mg tablet 2023-10 00:00: 00 02-04 00:00 :00 No [id number] 10mg Take 1 tablet by mouth every 6 (six) hours. [facility] iopamidol (ISOVUE 370-500 mL) injection 85 mL 9-20 09:45: 00 07-04 09:45 :00 No [id number] 85mL 85 mL, Intravenou s, ONCE, 1 dose, On Sun07/04/24 at 0445, Routine [facility] ketorolac (TORADOL) injection 30 mg 07-04 09:15: 00 07-04 08:27 :00 No 30mg 30 mg, Slow IV Push, ONCE, 1 dose, On Sun07/04/24 at 0415, Routine [facility] Lidocaine Viscous 2 % mucosal [...] ONCE, 1 dose, [facility]03/12/24 [facility] 0545[facility] (REGLAN) injection 10 mg 03-12 10:45: 00 03-12 10:52 :00 No 10mg 10 mg, Slow IV Push, ONCE, 1 dose, On Sun03/12/24 at 0545, NICOLASA [facility] iopamidol (ISOVUE 370-500 mL) injection 100 mL 03-12 10:15: 00 03-12 10:15 :00 No [id number] 100mL 100 mL, Intravenou s, ONCE, 1 dose, On Sun03/12/24 at 0515, Routine [facility] ketorolac (TORADOL) injection 30 mg 03-12 10:00: 00 03-12 09:01 :00 No 30mg 30 mg, Slow IV Push, ONCE, 1 dose, On Sun03/12/24 at 0500, Routine [facility] NaCl 0.9% (NS) IV infusion 1,000 mL 03-12 09:45: 00 03-12 10:39 :00 No 1000mL at 999 mL/hr, Intravenou s, ONCE, 1 dose, On Sun03/12/24 at 0445, Routine [facility] ondansetron (ZOFRAN (PF)) injection 4 mg 03-12 09:00: 00 03-12 09:01 :00 No 4mg 4 mg, Slow IV Push, ONCE, 1 dose, On Sun03/12/24 at 0400, NICOLASA [facility] butalbital- acetaminoph en-caff 50-325-40 mg tablet 03-12 00:00: 00 02-04 00:00 :00 No [id number] 1{tbl} Take 1 tablet by mouth every 6 (six) hours as needed (Headache) . [facility] dicyclomine 20 mg tablet 03-12 00:00: 00 02-04 00:00 :00 No [id number] 20mg Take 1 tablet by mouth every 6 (six) hours as needed for Abdominal pain. [facility] metoclopram farzana HCl 10 mg tablet 03-12 00:00: 00 07-25 00:00 :00 No [id number] 10mg Take 1 tablet by mouth every 6 (six) hours. [facility] ondansetron HCl 4 mg tablet 03-06 00:00: 00 Yes 1mg Dar[facility] Waggoner iopamidol (ISOVUE 370-500 mL) injection 85 mL 02-02 11:00: 00 02-02 11:00 :00 No [id number] 85mL 85 mL, Intravenou s, ONCE, 1 dose, On Sun02/03/24 at 0600, Routine [facility] FENTanyl PF (SUBLIMAZE (PF)) injection 50 mcg 02-02 10:30: 00 02-02 09:52 :00 No 50ug 50 mcg, Slow IV Push, ONCE, 1 dose, On 4/21/24 at 0530, Routine [facility] metoclopram farzana HCl (REGLAN) injection 10 mg 02-02 09:30: 00 02-02 09:52 :00 No 10mg 10 mg, Slow IV Push, ONCE, 1 dose, On Sun02/03/24 at 0430, NICOLASA [facility] pantoprazol e (PROTONIX) injection 40 mg 02-02 09:30: 00 02-02 09:53 :00 No 40mg 40 mg, Slow IV Push, ONCE, 1 dose, On Sun02/03/24 at 0430 [facility] dicyclomine 20 mg tablet 02-02 00:00: 00 02-04 00:00 :00 No [id number] 20mg Take 1 tablet by mouth every 6 (six) hours as needed for Abdominal pain. [facility] metoclopram farzana HCl 10 mg tablet 02-02 00:00: 00 07-25 00:00 :00 No [id number] 10mg Take 1 tablet by mouth every 6 (six) hours. [facility] pantoprazol e (PROTONIX) 40 mg EC tablet 02-02 00:00: 00 07-25 00:00 :00 No [id number] 40mg Take 1 tablet by mouth in the morning. [facility] loratadine (CLARITIN) tablet 10 mg 01-01 06:30: 00 01-01 18:29 :00 No 10mg 10 mg, Oral, ONCE, 1 dose, On Sun01/02/24 at 0130, NICOLASA [facility] azithromyci n (ZITHROMAX) tablet 500 mg 01-01 05:45: 00 01-01 05:39 :00 No 500mg 500 mg, Oral, ONCE, 1 dose, On Sun01/02/24 at 0045, NICOLASA
Re ason for Anti-Infec tive: Documented Infection< br>Documen zoila Infection Site: HEENT
D uration of Therapy: Once (ED) [facility] azithromyci n (ZITHROMAX Z-RAMESH) 250 mg tablet 01-01 00:00: 00 02-04 00:00 :00 No [id number] 500mg Take 2 tablets by mouth SEE-INSTRU CTIONS. Take 500 mg day 1, then 250 mg days 2 to 5. [facility] loratadine- pseudoephed rine (CLARITIN-D 24 HOUR) 10-240 mg per 24 hr tablet 01-01 00:00: 00 02-04 00:00 :00 No [id number] 1{tbl} Take 1 tablet by mouth in the morning. [facility] dextrometho rphan-guaif enesin 10-100 mg/5 mL solution 01-01 00:00: 00 02-04 00:00 :00 No [id number] 10mL Take 10 mL by mouth every 6 (six) hours as needed for Cough. [facility] butalbital- acetaminoph en-caff (ESGIC) 50-325-40 mg tablet 1 tablet 12-25 09:15: 00 12-25 09:09 :00 No 1{tbl} 1 tablet, Oral, ONCE, 1 dose, On Sun12/26/23 at 0415, NICOLASA [facility] butalbital- acetaminoph en-caff 50-325-40 mg tablet 12-25 00:00: 00 02-04 00:00 :00 No [id number] 1{tbl} Take 1 tablet by mouth every 6 (six) hours as needed (Headache) . [facility] ketorolac (TORADOL) injection 30 mg 11-20 17:15: 00 11-20 16:28 :00 No 30mg 30 mg, Slow IV Push, ONCE, 1 dose, On Sun11/20/23 at 1115, NICOLASA [facility] iopamidol (ISOVUE 370-500 mL) injection 80 mL 11-20 14:30: 00 11-20 14:45 :00 No [id number] 80mL 80 mL, Intravenou s, ONCE, 1 dose, On Sun11/20/23 at 0845, Routine [facility] NaCl 0.9% (NS) bolus infusion 1,000 mL 11-20 14:15: 00 11-20 16:26 :00 No 1000mL at 999 mL/hr, 1,000 mL, IV Infusion, ONCE, 1 dose, On Sun11/20/23 at 0815, STAT [facility] ondansetron 4 mg disintegrat ing tablet 11-20 00:00: 00 Yes [id number] 4mg Take 1 tablet by mouth every 4 (four) hours as needed for Nausea and Vomiting (N/V). [facility] cephALEXin (KEFLEX) 500 mg capsule 11-20 00:00: 00 02-04 00:00 :00 No [id number] 500mg Take 1 capsule by mouth in the morning and 1 capsule at noon and 1 capsule in the evening. [facility] naproxen 500 mg tablet 11-20 00:00: 00 12-01 05:59 :00 No [id number] 500mg Take 1 tablet by mouth in the morning and 1 tablet in the evening. Take with meals. Do all this for 10 days. [facility] maalox:diph enhydrAMINE :lidocaine 2 % viscous 1:1:1 ([facility]) oral suspension 15 mL 11-12 07:00: 00 11-12 06:55 :00 No 15mL 15 mL, Oral, ONCE, 1 dose, On Sun11/12/23 at 0100, Routine [facility] ondansetron (ZOFRAN-ODT ) disintegrat ing tablet 4 mg 11-12 07:00: 00 11-12 06:16 :00 No 4mg 4 mg, Oral, ONCE, 1 dose, On Sun11/12/23 at 0100, Routine [facility] benzonatate 200 mg capsule 10-27 00:00: 00 Yes [id number] 200mg Take 1 capsule by mouth 3 (three) times daily as needed for Cough for up to 20 doses. [facility] ibuprofen 600 mg tablet 10-27 00:00: 00 Yes [id number] 600mg Take 1 tablet by mouth every 6 (six) hours as needed for Pain (scale 4-6). [facility] ondansetron 4 mg disintegrat ing tablet 10-27 00:00: 00 11-20 00:00 :00 No [id number] 4mg Take 1 tablet by mouth every 8 (eight) hours as needed for Nausea and Vomiting (N/V). [facility] lactulose (CEPHULAC) solution 30 mL 2022-10 01:45: 00 09-09 02:36 :00 No 30mL 30 mL, Oral, ONCE, 1 dose, On 09/08/23 at 1945, NICOLASA [facility] dexamethaso ne (DECADRON PHOSPHATE) injection 10 mg 2022-10 01:30: 00 09-09 02:40 :00 No 10mg 10 mg, Oral, ONCE, 1 dose, On 09/08/23 at 1930, Routine [facility] ketorolac (TORADOL) injection 30 mg 2022-10 01:30: 00 09-09 02:40 :00 No 30mg 30 mg, Intramuscu lar, ONCE, 1 dose, On 09/08/23 at 1930, Routine [facility] ketorolac 10 mg tablet 2022-10 00:00: 00 11-12 00:00 :00 No [id number] 10mg Take 1 tablet by mouth every 6 (six) hours as needed for Pain (scale 7-10). [facility] glycerin/mi neral oil, AGLO ENEMA, Enem 2022-10 00:00: 00 11-12 00:00 :00 No [id number] 225mL Insert 225 mL into rectum as needed for Constipati on. [facility] cefdinir 300 mg capsule 2022-10 00:00: 00 09-16 05:59 :00 No [id number] 300mg Take 1 capsule by mouth every 12 (twelve) hours for 7 days. [facility] lactulose 10 gram/15 mL solution 2022-10 00:00: 00 09-14 05:59 :00 No [id number] 15mL Take 15 mL by mouth in the morning for 5 days. [facility] HYDROcodone -acetaminop hen (NORCO 5) 5-325 mg tablet 1 tablet 2022-10 13:15: 00 09-07 13:33 :00 No 1{tbl} 1 tablet, Oral, ONCE, 1 dose, On Sun09/07/23 at 0715, [facility] diazePAM (VALIUM) tablet 5 mg 2022-10 13:15: 09-07 13:33 :00 No 5mg 5 mg, Oral, ONCE, 1 dose, On Sun09/07/23 at 0715, [facility] dexamethaso ne sod phos PF injection 10 mg 2022-10 13:15: 00 09-07 13:33 :00 No 10mg 10 mg, Oral, ONCE, 1 dose, On Sun09/07/23 at 0715, 1 mL [facility] methocarbam oL 750 mg tablet 2022-10 00:00: 00 11-12 00:00 :00 No [id number] 750mg Take 1 tablet by mouth every 6 (six) hours as needed for Pain (scale 1-3). [facility] ondansetron (ZOFRAN (PF)) injection 4 mg 2022-10 02:00: 00 09-04 02:30 :00 No 4mg 4 mg, Slow IV Push, ONCE, 1 dose, On Sun09/03/23 at 1999, [facility] meclizine (TRAVEL-EAS E (MECLIZINE) ) tablet 50 mg 2022-10 02:00: 00 09-04 02:30 :00 No 50mg 50 mg, Oral, ONCE, 1 dose, On Sun09/03/23 at 1999, [facility] ondansetron (ZOFRAN) 4 mg tablet 2022-10 00:00: 00 Yes [id number] 4mg Take 1 tablet by mouth every 8 (eight) hours as needed for Nausea and Vomiting (N/V). [facility] meclizine 25 mg tablet 2022-10 00:00: 00 11-12 00:00 :00 No [id number] 25mg Take 1 tablet by mouth every 6 (six) hours. [facility] ondansetron (ZOFRAN-ODT ) disintegrat ing tablet 4 mg 2022-10 08:30: 00 07-26 07:45 :00 No 4mg 4 mg, Oral, ONCE, 1 dose, On Ashley 07/26/23 at 0330, Routine [facility] proMETHazin e 25 mg tablet 2022-10 00:00: 00 09-03 00:00 :00 No [id number] 12.5mg Take 0.5 tablets by mouth every 6 (six) hours as needed for Nausea and Vomiting (N/V). [facility] loratadine 10 mg tablet 2022-10 00:00: 00 02-04 00:00 :00 No [id number] 10mg Take 1 tablet by mouth at bedtime as needed for Allergies or Runny nose. [facility] albuterol 90 mcg/actuati on inhaler 2022-10 00:00: 00 02-04 00:00 :00 No [id number] 2{puff} Inhale 2 Puffs every 4 (four) hours as needed for Wheezing or Shortness of Breath. [facility] benzonatate 200 mg capsule 2022-10 00:00: 00 11-12 00:00 :00 No [id number] 200mg Take 1 capsule by mouth 3 (three) times daily as needed for Cough. [facility] fluticasone propionate 50 mcg/actuati on nasal spray 2022-10 00:00: 00 11-12 00:00 :00 No [id number] 2{spray } Use 2 Sprays in each nostril in the morning. [facility] predniSONE 20 mg tablet 2022-10 0-11 00:00: 00 07-31 04:59 :00 No [id number] 40mg Take 2 tablets by mouth in the morning for 5 days. [facility] TAKE 1 TABLET DAILY. 2022-10 00:00: 00 01-30 00:00 :00 No 10 [facility] Waggoner ibuprofen 800 mg tablet 07-12 00:00: 00 11-12 00:00 :00 No [id number] 800mg Take 1 tablet by mouth every 8 (eight) hours. [facility] methylPREDN ISolone sodium succinate (SOLU-MEDRO L) injection 125 mg 06-24 17:00: 00 06-24 11:35 :44 No 125mg 125 mg, Intramuscu lar, Q6H, First dose on Sun06/24/23 at 1200, Until Discontinu ed, Routine [facility] gabapentin 300 mg capsule 06-24 00:00: 00 11-12 00:00 :00 No [id number] 300mg Take 1 capsule by mouth in the morning and 1 capsule at noon and 1 capsule in the evening. [facility] codeine-gua ifenesin (ROBITUSSIN AC) 10-100 mg/5 mL oral solution 10 mL 06-18 06:15: 00 06-18 06:23 :00 No 10mL 10 mL, Oral, ONCE, 1 dose, On Sun06/18/23 at 0115, NICOLASA [facility] azithromyci n (ZITHROMAX) tablet 500 mg 06-18 06:15: 00 06-18 06:24 :00 No 500mg 500 mg, Oral, ONCE, 1 dose, On Sun06/18/23 at 0115, NICOLASA
Re ason for Anti-Infec tive: Documented Infection< br>Documen zoila Infection Site: Respirator y
Durat ion of Therapy: 7 days [facility] benzonatate 200 mg capsule 06-18 00:00: 00 11-12 00:00 :00 No [id number] 200mg Take 1 capsule by mouth 3 (three) times daily as needed for Cough. [facility] azithromyci n 250 mg tablet 06-18 00:00: 00 09-03 00:00 :00 No [id number] 250mg Take 1 tablet by mouth SEE-INSTRU CTIONS. Take 500 mg day 1, then 250 mg days 2 to 5. [facility] ondansetron 4 mg tablet 06-18 00:00: 00 09-03 00:00 :00 No [id number] 1 or 2 tablets every 8 hours as needed for nausea [facility] TAKE 1 TABLET BY MOUTH TWICE A DAY 06-14 00:00: 00 01-30 00:00 :00 No 500 Darryl Waggoner metroNIDAZO LE (FLAGYL) tablet 500 mg 06-12 08:45: 00 06-12 08:32 :00 No 500mg 500 mg, Oral, ONCE, 1 dose, On Sun06/12/23 at 0345, Routine
Reason for Anti-Infec tive: Empiric Therapy for Suspected Infection< br>Empiric Therapy Site: Pelvic
Duration of therapy: 72 hours [facility] doxycycline hyclate (Vibramycin ) capsule 100 mg 06-12 07:45: 00 06-12 08:32 :00 No 100mg 100 mg, Oral, ONCE, 1 dose, On Sun06/12/23 at 0245, NICOLASA
Re ason for Anti-Infec tive: Documented Infection< br>Documen zoila Infection Site: Pelvic
Duration of Therapy: 14 days [facility] morpHINE (4 mg/mL) injection 4 mg 06-12 07:45: 00 06-12 08:32 :00 No 4mg 4 mg, Slow IV Push, ONCE, 1 dose, On Sun06/12/23 at 0245, STAT [facility] ketorolac (TORADOL) injection 30 mg 06-12 06:15: 00 06-12 05:10 :00 No 30mg 30 mg, Slow IV Push, ONCE, 1 dose, On Sun06/12/23 [facility] 0115[facility] 0.9% (NS) bolus infusion 1,000 mL 06-12 06:15: 06-12 06:56 :00 No 1000mL at 999 mL/hr, 1,000 mL, IV Infusion, ONCE, 1 dose, On Sun06/12/23 at 0115, STAT [facility] cefTRIAXone (ROCEPHIN) 1,000 mg in NaCl 0.9% (NS) 100 mL MINI-BAG 06-12 05:15: 06-12 06:56 :00 No 1000mg 1,000 mg, IV Piggyback, ONCE, 1 dose, On Sun06/12/23 at 0015, Administer over 30 Minutes, 100 mL
Reas on for Anti-Infec tive: Empiric Therapy for Suspected Infection< br>Empiric Therapy Site: Pelvic
Duration of therapy: 72 hours [facility] ondansetron (ZOFRAN (PF)) injection 4 mg 06-12 05:15: 06-12 05:10 :00 No 4mg 4 mg, Slow IV Push, ONCE, 1 dose, On Sun06/12/23 at 0015, [facility] ibuprofen 800 mg tablet 06-12 00:00: 00 07-12 00:00 :00 No [id number] 800mg Take 1 tablet by mouth every 8 (eight) hours as needed for Pain (scale 4-6). [facility] TAKE 1 TABLET TWICE DAILY. 05-31 00:00: 00 01-30 00:00 :00 No 100 Darryl Waggoner iopamidol (ISOVUE 370-500 mL) injection 85 mL 05-28 08:30: 00 05-28 08:30 :00 No [id number] 85mL 85 mL, Intravenou s, ONCE, 1 dose, On Sun05/28/23 at 0330, Routine [facility] NaCl 0.9% (NS) bolus infusion 1,000 mL 05-28 08:15: 00 05-28 08:52 :00 No 1000mL at 999 mL/hr, 1,000 mL, IV Infusion, ONCE, 1 dose, On Sun05/28/23 at 0315, STAT [facility] pantoprazol e (PROTONIX) 80 mg in NaCl 0.9% (NS) 20 mL syringe 05-28 08:00: 00 05-28 08:02 :00 No 80mg 80 mg, IV Push, ONCE, 1 dose, On Sun05/28/23 at 0300, Administer over 2 Minutes, 20 mL [facility] ondansetron (ZOFRAN (PF)) injection 4 mg 05-28 06:45: 00 05-28 06:36 :00 No 4mg 4 mg, Slow IV Push, ONCE, 1 dose, On Sun05/28/23 at 0145, NICOLASA [facility] ondansetron 4 mg disintegrat ing tablet 05-28 00:00: 00 09-03 00:00 :00 No [id number] 4mg Take 1 tablet by mouth every 8 (eight) hours as needed for Nausea and Vomiting (N/V). [facility] esomeprazol e (NEXIUM) 40 mg capsule 05-28 00:00: 00 06-12 04:59 :00 No [id number] 40mg Take 1 capsule by mouth daily with breakfast for 14 days. [facility] INSTILL 4 DROPS IN THE AFFECTED EAR(S) TWICE DAILY 7-10 00:00: 00 01-30 00:00 :00 No 301 Darryl Waggoner dexamethaso ne (DECADRON PHOSPHATE) injection 10 mg 03-07 05:00: 00 03-07 03:56 :00 No 10mg 10 mg, Oral, ONCE, 1 dose, On Sun03/07/23 at 0000, Routine [facility] levocetiriz ine 5 mg tablet 03-06 00:00: 00 09-03 00:00 :00 No [id number] 5mg Take 1 tablet by mouth every evening. [facility] butorphanol (STADOL) injection 1 mg 02-02 08:00: 00 02-02 07:18 :00 No 1mg 1 mg, IV Push, ONCE, 1 dose, On Sun02/02/23 at 0300, NICOLASA [facility] ketorolac (TORADOL) injection 30 mg 02-02 07:45: 00 02-02 06:42 :00 No 30mg 30 mg, Slow IV Push, ONCE, 1 dose, On Sun02/02/23 at 0245, Routine [facility] metoclopram farzana HCl (REGLAN) injection 10 mg 02-02 06:45: 00 02-02 06:41 :00 No 10mg 10 mg, Slow IV Push, ONCE, 1 dose, On Sun02/02/23 at 0145, NICOLASA [facility] diphenhydrA MINE (BENADRYL) injection 25 mg 02-02 06:45: 00 02-02 06:43 :00 No 25mg 25 mg, Slow IV Push, ONCE, 1 dose, On Sun02/02/23 at 0145, STAT [facility] butalbital- acetaminoph en-caff 50-325-40 mg tablet 02-02 00:00: 00 11-12 00:00 :00 No [id number] 1{tbl} Take 1 tablet by mouth every 4 (four) hours as needed for Pain (scale 7-10). [facility] ondansetron (ZOFRAN) 4 mg tablet 02-02 00:00: 00 05-28 00:00 :00 No [id number] 4mg Take 1 tablet by mouth every 8 (eight) hours as needed for Nausea and Vomiting (N/V). [facility] iopamidol (ISOVUE 370-500 mL) injection 98 mL 1-10 21:00: 00 10-24 21:00 :00 No [id number] 98mL 98 mL, Intravenou s, ONCE, 1 dose, On Sun10/24/22 at 1500, Routine [facility] morpHINE (4 mg/mL) injection 4 mg 10-24 18:30: 00 10-24 19:03 :00 No 4mg 4 mg, Slow IV Push, ONCE, 1 dose, On Sun10/24/22 at 1230, STAT [facility] ondansetron (ZOFRAN (PF)) injection 4 mg 10-24 18:30: 00 10-24 19:01 :00 No 4mg 4 mg, Slow IV Push, ONCE, 1 dose, On Sun10/24/22 at 1230, NICOLASA [facility] NaCl 0.9% (NS) bolus infusion 1,000 mL 10-24 18:30: 00 10-24 21:40 :00 No 1000mL at 999 mL/hr, 1,000 mL, IV Infusion, ONCE, 1 dose, On Sun10/24/22 at 1230, STAT [facility] ondansetron 4 mg disintegrat ing tablet 10-24 00:00: 00 05-28 00:00 :00 No [id number] 4mg Take 1 tablet by mouth every 8 (eight) hours as needed for Nausea and Vomiting (N/V) for up to 10 doses. [facility] cephALEXin (KEFLEX) 500 mg capsule 10-24 00:00: 00 11-01 05:59 :00 No [id number] 500mg Take 1 capsule by mouth 4 (four) times daily for 7 days. [facility] ibuprofen 600 mg tablet 10-24 00:00: 00 10-30 05:59 :00 No [id number] 600mg Take 1 tablet by mouth every 8 (eight) hours as needed for Pain (scale 4-6) for up to 5 days. [facility] dicyclomine 20 mg tablet 10-24 00:00: 00 10-30 05:59 :00 No [id number] 20mg Take 1 tablet by mouth 3 (three) times daily as needed for Abdominal pain for up to 5 days. [facility] megestroL 40 mg tablet 2021-10 00:00: 00 11-12 00:00 :00 No [id number] 100 Take by mouth 2 tabs for first 7 days then 1 tablet by mouth daily for next 14 days. [facility] cephALEXin (KEFLEX) 500 mg capsule 2021-10 00:00: 00 07-29 04:59 :00 No [id number] 100 500mg Take 1 capsule by mouth in the morning and 1 capsule at noon and 1 capsule in the evening. Do all this for 7 days. [facility] iopamidol (ISOVUE 370-500 mL) injection 65 mL 05-19 21:30: 00 05-19 21:45 :00 No [id number] 65mL 65 mL, Intravenou s, ONCE, 1 dose, On Sun05/19/22 at 1645, Routine [facility] ondansetron (ZOFRAN (PF)) injection 4 mg 05-19 21:30: 00 05-19 20:51 :00 No 4mg 4 mg, Slow IV Push, ONCE, 1 dose, On Sun05/19/22 at 1630, NICOLASA [facility] ketorolac (TORADOL) injection 30 mg 05-19 21:30: 00 05-19 20:51 :00 No 30mg 30 mg, Slow IV Push, ONCE, 1 dose, On Sun05/19/22 at 1630, Routine [facility] NaCl 0.9% (NS) bolus infusion 1,000 mL 05-19 21:30: 00 05-19 22:08 :00 No 1000mL at 999 mL/hr, 1,000 mL, IV Infusion, ONCE, 1 dose, On Sun05/19/22 at 1630, NICOLASA [facility] tamsulosin 0.4 mg 24 hr capsule 05-19 00:00: 00 11-12 00:00 :00 No [id number] .4mg Take 1 capsule by mouth at bedtime. [facility] traMADoL 50 mg tablet 8-05 00:00: 00 05-27 04:59 :00 No [id number] 50mg Take 1 tablet by mouth every 6 (six) hours as needed for Pain (scale 4-6) for up to 7 days. Indication s: acute pain [facility] ketorolac (TORADOL) injection 30 mg 05-13 08:45: 00 05-13 07:40 :00 No 30mg 30 mg, Slow IV Push, ONCE, 1 dose, On 05/13/22 at 0345, Routine [facility] ketorolac 10 mg tablet 05-13 00:00: 00 11-12 00:00 :00 No [id number] 10mg Take 1 tablet by mouth every 6 (six) hours as needed for Pain (scale 7-10). [facility] butalbital- acetaminoph en-caff (ESGIC) 50-325-40 mg tablet 2 tablet 04-01 23:15: 00 04-01 22:22 :00 No 2{tbl} 2 tablet, Oral, ONCE NOW, 1 dose, On 04/01/22 at 1815, Routine [facility] ketorolac (TORADOL) injection 30 mg 04-01 23:15: 00 04-01 22:21 :00 No 30mg 30 mg, Intramuscu lar, ONCE, 1 dose, On 04/01/22 at 1815, NICOLASA [facility] No known medications 04-01 18:30: 37 No [facility] No known medications 10-25 13:51: 01 No [facility] cefdinir 300 mg capsule 10-25 00:00: 00 11-02 05:59 :00 No [id number] 300mg Take 1 capsule by mouth 2 (two) times daily for 7 days. [facility] Iron (ferrous sulfate) 325 mg [...] No known medications 6-25 21:44: 39 No [facility] amitriptyli ne 25 mg tablet 5-20 [...] Completed TDAP 2016-08-23 00:00:00 Completed [facility] Vital Signs Vital Name Observation Time Observation Value Comments S ource Body temperature 2025-05-08 13:05:00 36.33 Jennifer [facility] Systolic blood pressure 2025-04-14 16:28:36 130 mm[Hg] [facility] Diastolic blood pressure 2025-04-14 16:28:36 90 mm[Hg] [facility] Heart rate 2025-04-14 16:28:36 93 /min [facility] Body temperature 2025-04-14 16:28:36 37.78 Jennifer [facility] Respiratory rate 2025-04-14 16:28:36 16 /min [facility] Oxygen saturation in Arterial blood by Pulse oximetry 2025-04-14 16:28:36 100 /min [facility] Body height 2025-04-14 13:10:[address] [facility] Body weight 2025-04-14 13:10:[address] [facility] BMI 2025-04-14 13:10:00 32.92 kg/m2 [facility] Systolic blood pressure 2025-03-09 07:37:00 126 mm[Hg] [facility] Diastolic blood pressure 2025-03-09 07:37:00 85 mm[Hg] [facility] Heart rate 2025-03-09 07:37:00 95 /min [facility] Body temperature 2025-03-09 07:37:00 36.83 Jennifer [facility] Respiratory rate 2025-03-09 07:37:00 17 /min [facility] Oxygen saturation in Arterial blood by Pulse oximetry 2025-03-09 07:37:00 98 /min [facility] Body height 2025-03-09 02:30:00 157.5 cm [facility] Body weight 2025-03-09 02:30:[address] [facility] BMI 2025-03-09 02:30:00 32.92 kg/m2 [facility] Systolic blood pressure 2025-02-04 19:15:00 126 mm[Hg] [facility] Diastolic blood pressure 2025-02-04 19:15:00 83 mm[Hg] [facility] Heart rate 2025-02-04 19:15:00 98 /min [facility] Body temperature 2025-02-04 19:15:00 36.5 Jennifer [facility] Respiratory rate 2025-02-04 19:15:00 20 /min [facility] Body height 2025-02-04 19:15:00 157.5 cm [facility] Body weight 2025-02-04 19:15:[address] [facility] BMI 2025-02-04 19:15:00 34.04 kg/m2 [facility] Body temperature 2025-01-27 18:45:00 37 Jennifer [facility] Systolic blood pressure 2025-01-27 18:00:00 124 mm[Hg] [facility] Diastolic blood pressure 2025-01-27 18:00:00 91 mm[Hg] [facility] Heart rate 2025-01-27 18:00:00 89 /min [facility] Respiratory rate 2025-01-27 18:00:00 16 /min [facility] Oxygen saturation in Arterial blood by Pulse oximetry 2025-01-27 18:00:00 98 /min [facility] Body height 2025-01-27 17:26:[address] [facility] Body weight 2025-01-27 17:26:[address] [facility] BMI 2025-01-27 17:26:00 32.01 kg/m2 [facility] Systolic blood pressure 2025-01-17 09:03:00 115 mm[Hg] [facility] Diastolic blood pressure 2025-01-17 09:03:00 79 mm[Hg] [facility] Heart rate 2025-01-17 09:03:00 89 /min [facility] Body temperature 2025-01-17 09:03:00 36.89 Jennifer [facility] Respiratory rate 2025-01-17 09:03:00 16 /min [facility] Oxygen saturation in Arterial blood by Pulse oximetry 2025-01-17 09:03:00 100 /min [facility] Body height 2025-01-17 07:25:[address] [facility] Body weight 2025-01-17 07:25:[address] [facility] BMI 2025-01-17 07:25:00 32.92 kg/m2 [facility] Systolic blood pressure 2025-01-05 14:39:00 125 mm[Hg] [facility] Diastolic blood pressure 2025-01-05 14:39:00 84 mm[Hg] [facility] Heart rate 2025-01-05 14:39:00 99 /min [facility] Body temperature 2025-01-05 14:39:00 37.33 Jennifer [facility] Respiratory rate 2025-01-05 14:39:00 16 /min [facility] Oxygen saturation in Arterial blood by Pulse oximetry 2025-01-05 14:39:00 98 /min [facility] Body height 2025-01-05 10:11:[address] [facility] Body weight 2025-01-05 10:11:[address] [facility] BMI 2025-01-05 10:11:00 33.65 kg/m2 [facility] Systolic blood pressure 2024-12-18 07:00:00 101 mm[Hg] [facility] Diastolic blood pressure 2024-12-18 07:00:00 71 mm[Hg] [facility] Heart rate 2024-12-18 07:00:00 90 /min [facility] Respiratory rate 2024-12-18 07:00:00 16 /min [facility] Oxygen saturation in Arterial blood by Pulse oximetry 2024-12-18 07:00:00 97 /min [facility] Body temperature 2024-12-18 05:54:00 37.11 Jennifer [facility] Body height 2024-12-18 05:54:[address] [facility] Body weight 2024-12-18 05:54:[address] [facility] BMI 2024-12-18 05:54:00 33.65 kg/m2 [facility] Systolic blood pressure 2024-11-19 04:41:00 120 mm[Hg] [facility] Diastolic blood pressure 2024-11-19 04:41:00 93 mm[Hg] [facility] Heart rate 2024-11-19 04:41:00 78 /min [facility] Body temperature 2024-11-19 04:41:00 36.83 Jennifer [facility] Respiratory rate 2024-11-19 04:41:00 16 /min [facility] Oxygen saturation in Arterial blood by Pulse oximetry 2024-11-19 04:41:00 99 /min [facility] Body height 2024-11-19 03:00:[address] [facility] Body weight 2024-11-19 03:00:[address] [facility] BMI 2024-11-19 03:00:00 34.75 kg/m2 [facility] Systolic blood pressure 2024-11-09 04:37:00 130 mm[Hg] [facility] Diastolic blood pressure 2024-11-09 04:37:00 89 mm[Hg] [facility] Heart rate 2024-11-09 04:37:00 88 /min [facility] Body temperature 2024-11-09 04:37:00 37 Jennifer [facility] Respiratory rate 2024-11-09 04:37:00 19 /min [facility] Body height 2024-11-09 04:37:[address] [facility] Body weight 2024-11-09 04:37:[address] [facility] BMI 2024-11-09 04:37:00 32.92 kg/m2 [facility] Oxygen saturation in Arterial blood by Pulse oximetry 2024-11-09 04:37:00 100 /min [facility] Systolic blood pressure 2024-07-25 14:30:00 124 mm[Hg] [facility] Diastolic blood pressure 2024-07-25 14:30:00 83 mm[Hg] [facility] Heart rate 2024-07-25 14:30:00 88 /min [facility] Respiratory rate 2024-07-25 14:30:00 14 /min [facility] Oxygen saturation in Arterial blood by Pulse oximetry 2024-07-25 14:30:00 99 /min [facility] Body temperature 2024-07-25 12:49:00 37.22 Jennifer [facility] Body height 2024-07-25 12:49:[address] [facility] Body weight 2024-07-25 12:49:[address] [facility] BMI 2024-07-25 12:49:00 34.93 kg/m2 [facility] Systolic blood pressure 2024-07-04 10:38:00 117 mm[Hg] [facility] Diastolic blood pressure 2024-07-04 10:38:00 79 mm[Hg] [facility] Heart rate 2024-07-04 10:38:00 82 [facility] 2024-07-04 10:38:00 36.89 Jennifer [facility] Respiratory rate 2024-07-04 10:38:00 14 /min [facility] Oxygen saturation in Arterial blood by Pulse oximetry 2024-07-04 10:38:00 100 /min [facility] Body height 2024-07-04 07:28:[address] [facility] Body weight 2024-07-04 07:28:[address] [facility] BMI 2024-07-04 07:28:00 32.01 kg/m2 [facility] Systolic blood pressure 2024-03-12 11:00:00 127 mm[Hg] [facility] Diastolic blood pressure 2024-03-12 11:00:00 94 mm[Hg] [facility] Heart rate 2024-03-12 11:00:00 84 /min [facility] Body temperature 2024-03-12 11:00:00 36.61 Jennifer [facility] Respiratory rate 2024-03-12 11:00:00 14 /min [facility] Oxygen saturation in Arterial blood by Pulse oximetry 2024-03-12 11:00:00 100 /min [facility] Body height 2024-03-12 07:04:[address] [facility] Body weight 2024-03-12 07:04:[address] [facility] BMI 2024-03-12 07:04:00 35.08 kg/m2 [facility] Systolic blood pressure 2024-02-03 12:00:00 121 mm[Hg] [facility] Diastolic blood pressure 2024-02-03 12:00:00 82 mm[Hg] [facility] Heart rate 2024-02-03 12:00:00 80 /min [facility] Respiratory rate 2024-02-03 12:00:00 17 /min [facility] Oxygen saturation in Arterial blood by Pulse oximetry 2024-02-03 12:00:00 100 /min [facility] Body temperature 2024-02-03 09:01:00 37.33 Jennifer [facility] Body height 2024-02-03 09:01:00 157.5 cm [facility] Body weight 2024-02-03 09:01:00 81.647 kg [facility] BMI 2024-02-03 09:01:00 32.92 kg/m2 [facility] Systolic blood pressure 2024-01-02 05:38:00 109 mm[Hg] [facility] Diastolic blood pressure 2024-01-02 05:38:00 91 mm[Hg] [facility] Heart rate 2024-01-02 05:38:00 93 /min [facility] Body temperature 2024-01-02 05:38:00 36.28 Jennifer [facility] Respiratory rate 2024-01-02 05:38:00 20 /min [facility] Oxygen saturation in Arterial blood by Pulse oximetry 2024-01-02 05:38:00 99 /min [facility] Body height 2024-01-02 03:25:[address] [facility] Body weight 2024-01-02 03:25:[address] [facility] BMI 2024-01-02 03:25:00 32.92 kg/m2 [facility] Systolic blood pressure 2023-12-26 08:51:00 115 mm[Hg] [facility] Diastolic blood pressure 2023-12-26 08:51:00 78 mm[Hg] [facility] Heart rate 2023-12-26 08:51:00 98 /min [facility] Body temperature 2023-12-26 08:51:00 37.5 Jennifer [facility] Respiratory rate 2023-12-26 08:51:00 12 /min [facility] Body height 2023-12-26 08:51:00 157.5 cm [facility] Body weight 2023-12-26 08:51:[address] [facility] BMI 2023-12-26 08:51:00 34.40 kg/m2 [facility] Oxygen saturation in Arterial blood by Pulse oximetry 2023-12-26 08:51:00 100 /min [facility] Systolic blood pressure 2023-11-20 16:29:00 120 mm[Hg] [facility] Diastolic blood pressure 2023-11-20 16:29:00 89 mm[Hg] [facility] Heart rate 2023-11-20 16:29:00 85 /min [facility] Respiratory rate 2023-11-20 16:29:00 16 /min [facility] Oxygen saturation in Arterial blood by Pulse oximetry 2023-11-20 16:29:00 97 /min [facility] Body temperature 2023-11-20 12:44:00 37.11 Jennifer [facility] Body height 2023-11-20 12:44:[address] [facility] Body weight 2023-11-20 12:44:[address] [facility] BMI 2023-11-20 12:44:00 33.11 kg/m2 [facility] Systolic blood pressure 2023-11-12 06:09:00 135 mm[Hg] [facility] Diastolic blood pressure 2023-11-12 06:09:00 86 mm[Hg] [facility] Heart rate 2023-11-12 06:09:00 89 /min [facility] Body temperature 2023-11-12 06:09:00 37.28 Jennifer [facility] Respiratory rate 2023-11-12 06:09:00 16 /min [facility] Body height 2023-11-12 06:09:[address] [facility] Body weight 2023-11-12 06:09:[address] [facility] BMI 2023-11-12 06:09:00 33.69 kg/m2 [facility] Oxygen saturation in Arterial blood by Pulse oximetry 2023-11-12 06:09:00 100 /min [facility] Systolic blood pressure 2023-10-28 02:30:00 121 mm[Hg] [facility] Diastolic blood pressure 2023-10-28 02:30:00 80 mm[Hg] [facility] Heart rate 2023-10-28 02:30:00 124 /min [facility] Body temperature 2023-10-28 02:30:00 38 Jennifer [facility] Respiratory rate 2023-10-28 02:30:00 20 /min [facility] Body weight 2023-10-28 02:30:[address] [facility] BMI 2023-10-28 02:30:00 34.75 kg/m2 [facility] Oxygen saturation in Arterial blood by Pulse oximetry 2023-10-28 02:30:00 96 /min [facility] Systolic blood pressure 2023-09-09 02:47:12 116 mm[Hg] [facility] Diastolic blood pressure 2023-09-09 02:47:12 85 mm[Hg] [facility] Heart rate 2023-09-09 02:47:12 78 /min [facility] Body temperature 2023-09-09 02:47:12 36.28 Jennifer [facility] Respiratory rate 2023-09-09 02:47:12 18 /min [facility] Oxygen saturation in Arterial blood by Pulse oximetry 2023-09-09 02:47:12 98 /min [facility] Body height 2023-09-09 00:30:[address] [facility] Body weight 2023-09-09 00:30:[address] [facility] BMI 2023-09-09 00:30:00 34.39 kg/m2 [facility] Systolic blood pressure 2023-09-07 12:45:00 119 mm[Hg] [facility] Diastolic blood pressure 2023-09-07 12:45:00 83 mm[Hg] [facility] Heart rate 2023-09-07 12:45:00 101 /min [facility] Body temperature 2023-09-07 12:45:00 37.5 Jennifer [facility] Respiratory rate 2023-09-07 12:45:00 18 /min [facility] Body height 2023-09-07 12:45:[address] [facility] Body weight 2023-09-07 12:45:00 82.872 kg [facility] BMI 2023-09-07 12:45:00 33.42 kg/m2 [facility] Oxygen saturation in Arterial blood by Pulse oximetry 2023-09-07 12:45:00 99 /min [facility] Systolic blood pressure 2023-09-04 04:00:00 112 mm[Hg] [facility] Diastolic blood pressure 2023-09-04 04:00:00 97 mm[Hg] [facility] Heart rate 2023-09-04 04:00:00 94 /min [facility] Body temperature 2023-09-04 04:00:00 36.89 Jennifer [facility] Oxygen saturation in Arterial blood by Pulse oximetry 2023-09-04 04:00:00 98 /min [facility] Respiratory rate 2023-09-04 03:00:00 17 /min [facility] Body height 2023-09-04 00:54:[address] [facility] Body weight 2023-09-04 00:54:[address] [facility] BMI 2023-09-04 00:54:00 33.84 kg/m2 [facility] Systolic blood pressure 2023-08-04 04:05:00 139 mm[Hg] [facility] Diastolic blood pressure 2023-08-04 04:05:00 77 mm[Hg] [facility] Heart rate 2023-08-04 04:05:00 104 /min [facility] Body temperature 2023-08-04 04:05:00 36.72 Jennifer [facility] Respiratory rate 2023-08-04 04:05:00 16 /min [facility] Body height 2023-08-04 04:05:[address] [facility] Body weight 2023-08-04 04:05:[address] [facility] BMI 2023-08-04 04:05:00 34.66 kg/m2 [facility] Oxygen saturation in Arterial blood by Pulse oximetry 2023-08-04 04:05:00 100 /min [facility] Systolic blood pressure 2023-07-26 07:38:00 134 mm[Hg] [facility] Diastolic blood pressure 2023-07-26 07:38:00 95 mm[Hg] [facility] Heart rate 2023-07-26 07:38:00 114 /min [facility] Body temperature 2023-07-26 07:38:00 37.28 Jennifer [facility] Respiratory rate 2023-07-26 07:38:00 18 /min [facility] Body height 2023-07-26 07:38:00 157.5 cm [facility] Body weight 2023-07-26 07:38:[address] [facility] BMI 2023-07-26 07:38:00 34.75 kg/m2 [facility] Oxygen saturation in Arterial blood by Pulse oximetry 2023-07-26 07:38:00 99 /min [facility] Systolic blood pressure 2023-07-25 14:52:00 126 mm[Hg] [facility] Diastolic blood pressure 2023-07-25 14:52:00 96 mm[Hg] [facility] Heart rate 2023-07-25 14:52:00 98 /min [facility] Body temperature 2023-07-25 14:52:00 37 Jennifer [facility] Respiratory rate 2023-07-25 14:52:00 16 /min [facility] Oxygen saturation in Arterial blood by Pulse oximetry 2023-07-25 14:52:00 98 /min [facility] Body height 2023-07-25 12:33:00 157.5 cm [facility] Body weight 2023-07-25 12:33:[address] [facility] BMI 2023-07-25 12:33:00 34.86 kg/m2 [facility] Systolic blood pressure 2023-07-12 12:34:00 127 mm[Hg] [facility] Diastolic blood pressure 2023-07-12 12:34:00 86 mm[Hg] [facility] Heart rate 2023-07-12 12:34:00 86 /min [facility] Body temperature 2023-07-12 12:34:00 36.72 Jennifer [facility] Respiratory rate 2023-07-12 12:34:00 16 /min [facility] Body height 2023-07-12 12:34:00 157.5 cm [facility] 2023-07-12 12:34:00 86.183 kg [facility] BMI 2023-07-12 12:34:00 34.75 kg/m2 [facility] Oxygen saturation in Arterial blood by Pulse oximetry 2023-07-12 12:34:00 98 /min [facility] Systolic blood pressure 2023-06-24 10:24:00 118 mm[Hg] [facility] Diastolic blood pressure 2023-06-24 10:24:00 89 mm[Hg] [facility] Heart rate 2023-06-24 10:24:00 95 /min [facility] Body temperature 2023-06-24 10:24:00 36.78 Jennifer [facility] Respiratory rate 2023-06-24 10:24:00 18 /min [facility] Body height 2023-06-24 10:24:[address] [facility] Body weight 2023-06-24 10:24:[address] [facility] BMI 2023-06-24 10:24:00 36.21 kg/m2 [facility] Oxygen saturation in Arterial blood by Pulse oximetry 2023-06-24 10:24:00 100 /min [facility] Systolic blood pressure 2023-06-18 04:52:00 113 mm[Hg] [facility] Diastolic blood pressure 2023-06-18 04:52:00 82 mm[Hg] [facility] Heart rate 2023-06-18 04:52:00 100 /min [facility] Body temperature 2023-06-18 04:52:00 37.39 Jennifer [facility] Respiratory rate 2023-06-18 04:52:00 18 /min [facility] Body height 2023-06-18 04:52:00 157.5 cm [facility] Body weight 2023-06-18 04:52:[address] [facility] BMI 2023-06-18 04:52:00 36.25 kg/m2 [facility] Oxygen saturation in Arterial blood by Pulse oximetry 2023-06-18 04:52:00 100 /min [facility] Systolic blood pressure 2023-06-12 09:00:00 105 mm[Hg] [facility] Diastolic blood pressure 2023-06-12 09:00:00 74 mm[Hg] [facility] Heart rate 2023-06-12 09:00:00 74 /min [facility] Respiratory rate 2023-06-12 09:00:00 16 /min [facility] Oxygen saturation in Arterial blood by Pulse oximetry 2023-06-12 09:00:00 97 /min [facility] Body temperature 2023-06-12 04:09:00 36.89 Jennifer [facility] Body height 2023-06-12 04:09:[address] [facility] Body weight 2023-06-12 04:09:[address] [facility] BMI 2023-06-12 04:09:00 34.75 kg/m2 [facility] Systolic blood pressure 2023-05-28 08:00:00 123 mm[Hg] [facility] Diastolic blood pressure 2023-05-28 08:00:00 78 mm[Hg] [facility] Heart rate 2023-05-28 08:00:00 93 /min [facility] in Arterial blood by Pulse oximetry 2023-05-28 08:00:00 99 /min [facility] Respiratory rate 2023-05-28 06:00:00 18 /min [facility] Body temperature 2023-05-28 05:37:00 35.72 Jennifer [facility] Body height 2023-05-28 05:37:00 157.5 cm [facility] Body weight 2023-05-28 05:37:[address] [facility] BMI 2023-05-28 05:37:00 35.14 kg/m2 [facility] Systolic blood pressure 2023-03-07 03:59:00 122 mm[Hg] [facility] Diastolic blood pressure 2023-03-07 03:59:00 77 mm[Hg] [facility] Heart rate 2023-03-07 03:59:00 97 /min [facility] Body temperature 2023-03-07 03:59:00 36.67 Jennifer [facility] Respiratory rate 2023-03-07 03:59:00 18 /min [facility] Body height 2023-03-07 03:59:[address] [facility] Body weight 2023-03-07 03:59:[address] [facility] BMI 2023-03-07 03:59:00 32.01 kg/m2 [facility] Oxygen saturation in Arterial blood by Pulse oximetry 2023-03-07 03:59:00 99 /min [facility] Heart rate 2023-02-02 07:48:00 73 /min [facility] Oxygen saturation in Arterial blood by Pulse oximetry 2023-02-02 07:48:00 98 /min [facility] Systolic blood pressure 2023-02-02 07:00:00 122 mm[Hg] [facility] Diastolic blood pressure 2023-02-02 07:00:00 79 mm[Hg] [facility] Respiratory rate 2023-02-02 07:00:00 15 /min [facility] Body temperature 2023-02-02 06:07:00 36.94 Jennifer [facility] Body height 2023-02-02 06:07:[address] [facility] Body weight 2023-02-02 06:07:00 79.379 kg [facility] BMI 2023-02-02 06:07:00 32.01 kg/m2 [facility] Systolic blood pressure 2022-10-24 21:42:00 114 mm[Hg] [facility] Diastolic blood pressure 2022-10-24 21:42:00 74 mm[Hg] [facility] Heart rate 2022-10-24 21:42:00 72 /min [facility] Respiratory rate 2022-10-24 21:42:00 16 /min [facility] Oxygen saturation in Arterial blood by Pulse oximetry 2022-10-24 21:42:00 99 /min [facility] Body temperature 2022-10-24 18:03:00 37.33 Jennifer [facility] Body height 2022-10-24 18:03:00 157.5 cm [facility] Body weight 2022-10-24 18:03:[address] [facility] BMI 2022-10-24 18:03:00 32.01 kg/m2 [facility] Systolic blood pressure 2022-07-21 12:46:00 115 mm[Hg] [facility] Diastolic blood pressure 2022-07-21 12:46:00 83 mm[Hg] [facility] Heart rate 2022-07-21 12:46:00 82 /min [facility] Body temperature 2022-07-21 12:46:00 36.89 Jennifer [facility] Respiratory rate 2022-07-21 12:46:00 18 /min [facility] Body weight 2022-07-21 12:46:00 78.019 kg [facility] BMI 2022-07-21 12:46:00 31.46 kg/m2 [facility] Oxygen saturation in Arterial blood by Pulse oximetry 2022-07-21 12:46:00 99 /min [facility] Systolic blood pressure 2022-05-19 22:00:00 128 mm[Hg] [facility] Diastolic blood pressure 2022-05-19 22:00:00 68 mm[Hg] [facility] Heart rate 2022-05-19 22:00:00 78 /min [facility] Body temperature 2022-05-19 22:00:00 36.78 Jennifer [facility] Respiratory rate 2022-05-19 22:00:00 18 /min [facility] Oxygen saturation in Arterial blood by Pulse oximetry 2022-05-19 22:00:00 100 /min [facility] Body height 2022-05-19 20:31:[address] [facility] Body weight 2022-05-19 20:31:[address] [facility] BMI 2022-05-19 20:31:00 31.46 kg/m2 [facility] Heart rate 2022-05-13 08:30:00 83 /min [facility] Oxygen saturation in Arterial blood by Pulse oximetry 2022-05-13 08:30:00 99 /min [facility] Systolic blood pressure 2022-05-13 08:00:00 111 mm[Hg] [facility] Diastolic blood pressure 2022-05-13 08:00:00 80 mm[Hg] [facility] Body temperature 2022-05-13 07:05:00 37 Jennifer [facility] Respiratory rate 2022-05-13 07:05:00 18 /min [facility] Body height 2022-05-13 07:05:[address] [facility] Body weight 2022-05-13 07:05:[address] [facility] BMI 2022-05-13 07:05:00 30.91 kg/m2 [facility] Systolic blood pressure 2022-04-01 21:47:00 124 mm[Hg] [facility] Diastolic blood pressure 2022-04-01 21:47:00 84 mm[Hg] [facility] Heart rate 2022-04-01 21:47:00 89 /min [facility] Body temperature 2022-04-01 21:47:00 37.22 Jennifer [facility] Respiratory rate 2022-04-01 21:47:00 22 /min [facility] Body weight 2022-04-01 21:47:00 77.111 kg [facility] BMI 2022-04-01 21:47:00 29.18 kg/m2 [facility] Oxygen saturation in Arterial blood by Pulse oximetry 2022-04-01 21:47:00 99 /min [facility] Systolic blood pressure 2021-10-25 19:42:00 103 mm[Hg] [facility] Diastolic blood pressure 2021-10-25 19:42:00 74 mm[Hg] [facility] Heart rate 2021-10-25 19:42:00 94 /min [facility] Body temperature 2021-10-25 19:42:00 37.67 Jennifer [facility] Respiratory rate 2021-10-25 19:42:00 18 /min [facility] Body weight 2021-10-25 19:42:[address] [facility] BMI 2021-10-25 19:42:00 26.78 kg/m2 [facility] Oxygen saturation in Arterial blood by Pulse oximetry 2021-10-25 19:42:00 99 /min [facility] BP Systolic 2025-07-16 14:00:00 128 mm[Hg] Step hen F Edilson BP Diastolic 2025-07-16 14:00:00 93 mm[Hg] Osito phen F Edilson Weight Measured 2025-07-16 14:00:00 176.60 pounds Darryl Tyron Waggoner Height Measured 2025-07-16 14:00:00 63.00 inches Darryl Tyron Valmy Body Temperature 2025-07-16 14:00:00 98.00 degrees Darryl F Edilson Heart Rate 2025-07-16 14:00:00 113.00 /min Step [facility] Respiratory Rate 2025-07-16 14:00:00 19.00 /min Darryl F Edilson BP Systolic 2024-12-19 08:33:00 128 mm[Hg] Step hen F Edilson BP Diastolic 2024-12-19 08:33:00 74 mm[Hg] Osito phen F Edilson Weight Measured 2024-12-19 08:33:00 184.20 pounds Darryl Tyron Waggoner Height Measured 2024-12-19 08:33:00 63.00 inches Darryl Tyron Edilson Body Temperature 2024-12-19 08:33:00 98.10 degrees [...] 2025-05-08 13:05:30 Viry De Anda [facility] CT ABDOMEN PELVIS W CONTRAST 2025-04-14 14:52:00 Singer Hermilo [facility] URINALYSIS 2025-04-14 14:33:00 Singer Hermilo [facility] LIPASE 2025-04-14 13:43:00 Singer [facility] COMP. METABOLIC PANEL ([id number]) 2025-04-14 13:43:00 Hermilo Ricks [facility] CBC WITH DIFF 2025-04-14 13:43:[address] [facility] US OVARY TORSION 2025-03-09 05:02:45 Doni Marie [facility] POCT TEST 2025-03-09 03:04:00 Ryan Marie [facility] LIPASE 2025-03-09 03:03:00 Doni [facility] COMP. METABOLIC PANEL ([id number]) 2025-03-09 03:03:00 Doni Marie [facility] CBC WITH DIFF 2025-03-09 03:03:00 Doni Marie [facility] URINALYSIS 2025-03-09 03:03:00 Doni Marie [facility] GARDASIL 9 (HPV 9V) VACCINE 2025-02-04 19:21:47 Carolyn Miller [facility] POCT TEST 2025-02-04 00:00:00 Kaye House [facility] POCT GLUCOSE(AGE >30DAYS) 2025-01-27 18:48:00 Patrice Holland [facility] POCT GLUCOSE (AUTOMATED) 2025-01-27 18:45:00 Patrice Bey [facility] CT ABDOMEN PELVIS W CONTRAST 2025-01-17 08:40:02 Selene Parra [facility] POCT TEST 2025-01-17 07:32:00 Selene Parra [facility] LIPASE 2025-01-17 07:29:00 [facility]OLIC PAN[facility] ([id number]) 2025-01-17 07:29:00 Selene Parra [facility] CBC WITH DIFF 2025-01-17 07:29:00 Selene Parra [facility] URINALYSIS 2025-01-17 07:29:00 Hannahar [facility] CT ABDOMEN PELVIS W CONTRAST 2025-01-05 12:26:37 Singer [facility] POCT TEST 2025-01-05 11:58:00 Jeanine Ricks [facility] URINALYSIS 2025-01-05 10:42:00 Singer [facility] XR CHEST 1 VW 2025-01-05 10:39:55 Singer [facility] COMP. METABOLIC PANEL ([id number]) 2025-01-05 10:16:00 Singer Hermilo [facility] CBC WITH DIFF 2025-01-05 10:16:00 Singer [facility] INFLUENZA A/B RSV COVID NAAT 2025-01-05 10:16:00 Singer [facility] [id number] Colposcopy Entire Vagina W/cervix If Present 2024-12-19 00:00:00 Darryl Waggoner POCT TEST 2024-12-18 06:15:00 Martha Terry [facility] COMP. METABOLIC PANEL ([id number]) 2024-12-18 06:13:00 Gaby Terry [facility] CBC WITH DIFF 2024-12-18 06:13:00 VicenteguiGaby isaacs [facility] 2024-12-18 06:13:00 HarrisonMarthayessica Mitchell [facility] ABDOMEN ACUTE SERIES 2024-07-25 14:37:21 Do jasmina Marie [facility] POCT TEST 2024-07-25 13:23:00 Ryan Marie [facility] LIPASE 2024-07-25 13:21:[address] [facility] COMP. METABOLIC PANEL ([id number]) 2024-07-25 13:21:00 Doni Marie [facility] CBC WITH DIFF 2024-07-25 13:21:[address] [facility] URINALYSIS 2024-07-25 13:21:[address] [facility] URINE DRUG (IMMUNOASSAY) - COMPREHENSIVE DRUG SCREEN W/O REFLEX 2024-07-25 13:21:00 Doni Marie [facility] CT ABDOMEN PELVIS W CONTRAST 2024-07-04 08:54:02 Selene Parra [facility] POCT TEST 2024-07-04 07:36:00 Selene Parra [facility] LIPASE 2024-07-04 07:33:[address] [facility] COMP. METABOLIC PANEL ([id number]) 2024-07-04 07:33:00 Selene Parra [facility] CBC WITH DIFF 2024-07-04 07:33:00 Selene Parra [facility] URINALYSIS 2024-07-04 07:33:[address] [facility] CT ABDOMEN PELVIS W CONTRAST 2024-03-12 09:15:57 Selene Parra [facility] LIPASE 2024-03-12 09:01:[address] [facility] COMP. METABOLIC PANEL ([id number]) 2024-03-12 09:01:00 Selene Parra [facility] CBC WITH DIFF 2024-03-12 09:01:00 Selene Parra [facility] EBV-MONONUCLEOSIS SCREEN 2024-02-03 10:22:00 Funmilayo Parra [facility] CT ABDOMEN PELVIS W CONTRAST 2024-02-03 10:08:28 Selene Parra [facility] POCT TEST 2024-02-03 09:09:00 Selene Parra [facility] LIPASE 2024-02-03 09:06:[address] [facility] COMP. METABOLIC PANEL ([id number]) 2024-02-03 09:06:00 Selene Parra [facility] CBC WITH DIFF 2024-02-03 09:06:00 Selene Parra [facility] URINALYSIS 2024-02-03 09:06:00 Selene [facility]ra [facility] RAPID STREP SCREEN FOR GROUP A 2024-02-03 09:06:00 Selene Parra [facility] ASSIGNMENT OF BENEFITS 2024-01-02 04:22:29 Docto r Unassigned, [place] [facility] RAPID STREP SCREEN FOR GROUP A 2024-01-02 04:20:00 Doni Marie [facility] RAPID INFLUENZA A/B 2024-01-02 03:50:00 Ryan Marie [facility] COVID-19 (ID NOW RAPID TESTING) 2024-01-02 03:50:00 Doni Marie [facility] CONSENT/REFUSAL FOR DIAGNOSIS AND TREATMENT 2024-01-02 03:16:29 Doctor Unassigned, [place] [facility] CONSENT/REFUSAL FOR DIAGNOSIS AND TREATMENT 2023-12-26 08:43:59 Doctor Unassigned, [place] [facility] Colposcopy Cervix Vag Loop Eltrd Bx Cervix 2023-12-17 00:00:00 Darryl Waggoner Colposcopy Cervix Vag Eltrd Conization Cervix 2023-12-17 00:00:00 Darryl Waggoner [id number] Colposcopy Cervix Endocervical Curettage 2023-12-17 00:00:00 Darryl Waggoner US OVARY TORSION 2023-11-20 16:01:25 Doni Marie [facility] CT ABDOMEN PELVIS W CONTRAST 2023-11-20 14:40:23 Doni Marie [facility] COMP. METABOLIC PANEL ([id number]) 2023-11-20 13:27:00 Doni Marie [facility] CBC WITH DIFF 2023-11-20 13:27:[address] [facility] URINALYSIS 2023-11-20 13:27:[address] [facility] POCT TEST 2023-11-20 13:26:00 Ryan Marie [facility] CONSENT/REFUSAL FOR DIAGNOSIS AND TREATMENT 2023-11-20 12:37:06 Doctor Unassigned, [place] [facility] CONSENT/REFUSAL FOR DIAGNOSIS AND TREATMENT 2023-11-12 06:04:20 Doctor Unassigned, [place] [facility] CONSENT/REFUSAL FOR DIAGNOSIS AND TREATMENT 2023-10-28 02:10:42 Doctor Unassigned, [place] [facility] URINALYSIS 2023-09-09 02:35:00 Danie Ontiveros U [facility] XR KUB 2023-09-09 01:28:00 Danie Ontiveros U [facility] CT LUMBAR SPINE WO CONTRAST 2023-09-09 01:02:05 Danie Ontiveros [facility] CONSENT/REFUSAL FOR DIAGNOSIS AND TREATMENT 2023-09-09 00:05:52 Doctor Unassigned, [place] [facility] POCT TEST 2023-09-07 13:28:00 Juli Srivastava ra [facility] URINALYSIS 2023-09-07 13:27:00 Chayo Srivastava Un [facility] CONSENT/REFUSAL FOR DIAGNOSIS AND TREATMENT 2023-09-07 12:42:21 Doctor Unassigned, [place] [facility] COMP. METABOLIC PANEL ([id number]) 2023-09-04 02:29:00 Selene Parra [facility] CBC WITH DIFF 2023-09-04 02:29:00 Selene Parra [facility] RAPID INFLUENZA A/B 2023-09-04 02:26:00 Selene Parra [facility] COVID-19 (ID NOW RAPID TESTING) 2023-09-04 02:26:00 Selene Parra [facility] ASSIGNMENT OF BENEFITS 2023-09-04 02:07:25 Docto r Unassigned, [place] [facility] CONSENT/REFUSAL FOR DIAGNOSIS AND TREATMENT 2023-09-04 00:46:16 Doctor Unassigned, [place] [facility] CONSENT/REFUSAL FOR DIAGNOSIS AND TREATMENT 2023-08-04 03:55:32 Doctor Unassigned, [place] [facility] URINALYSIS 2023-07-26 08:52:00 Memo Resendiz [facility] URINALYSIS 2023-07-26 08:20:00 Memo Resendiz [facility] ASSIGNMENT OF BENEFITS 2023-07-26 08:05:43 Docto r Unassigned, [place] [facility] CONSENT/REFUSAL FOR DIAGNOSIS AND TREATMENT 2023-07-26 07:33:52 Doctor Unassigned, [place] [facility] RAPID STREP SCREEN FOR GROUP A 2023-07-25 13:40:00 Danii Arriaga [facility] RAPID INFLUENZA A/B 2023-07-25 13:40:00 Minal Arriaga [facility] COVID-19 (ID NOW RAPID TESTING) 2023-07-25 13:40:00 Danii Arriaga [facility] XR CHEST 2 VW 2023-07-25 13:26:06 Danii Arriaga [facility] ASSIGNMENT OF BENEFITS 2023-07-25 13:17:29 Docto r Unassigned, [place] [facility] CONSENT/REFUSAL FOR DIAGNOSIS AND TREATMENT 2023-07-25 12:29:51 Doctor Unassigned, [place] [facility] XR CHEST 2 VW 2023-07-12 13:13:[address] [facility] POCT TEST 2023-07-12 12:56:00 Ryan Marie [facility] CONSENT/REFUSAL FOR DIAGNOSIS AND TREATMENT 2023-07-12 12:27:58 Doctor Unassigned, [place] [facility] [id number] Colposcopy Cervix Uppr/adjcnt Vagina W/cervix Bx 2023-06-26 00:00:00 Darryl Waggoner [id number] Endometrial Bx W/wo Endocervix Bx W/o Dilat Spx 2023-06-26 00:00:00 Darryl Waggoner CONSENT/REFUSAL FOR DIAGNOSIS AND TREATMENT 2023-06-24 10:15:34 Doctor Unassigned, [place] [facility] RAPID INFLUENZA A/B 2023-06-18 05:03:00 Michelle Terry [facility] RAPID RSV 2023-06-18 05:03:00 Michelle Terry [facility] COVID-19 (ID NOW RAPID TESTING) 2023-06-18 05:03:00 Michelle Terry [facility] CONSENT/REFUSAL FOR DIAGNOSIS AND TREATMENT 2023-06-18 04:46:39 Doctor Unassigned, Hodges [facility] US OVARY TORSION 2023-06-12 08:14:06 [facility] 2023-06-12 05:07:00 Raven Lieberman [facility] COMP. METABOLIC PANEL ([id number]) 2023-06-12 05:02:00 Raven Lieberman [facility] CBC WITH DIFF 2023-06-12 05:02:[address] [facility] URINALYSIS 2023-06-12 05:02:00 Raven Lieberman [facility] NOTICE OF PRIVACY PRACTICES 2023-06-12 04:10:01 Doctor Unassigned, Hodges [facility] CONSENT/REFUSAL FOR DIAGNOSIS AND TREATMENT 2023-06-12 04:06:29 Doctor Unassigned, Hodges [facility] CT ABDOMEN PELVIS W CONTRAST 2023-05-28 07:44:47 Raven Lieberman [facility] POCT TEST 2023-05-28 06:40:00 Raven Lieberman [facility] COMP. METABOLIC PANEL ([id number]) 2023-05-28 06:34:00 Raven Lieberman [facility] CBC WITH DIFF 2023-05-28 06:34:[address] [facility] URINALYSIS 2023-05-28 06:34:00 [facility] CONSENT/REFUSAL FOR DIAGNOSIS AND TREATMENT 2023-05-28 05:25:17 Doctor Unassigned, Hodges [facility] [address] Removal Impacted Cerumen Using Irrigation/lavage, Unilateral 2023-04-30 00:00:00 Darryl Waggoner ASSIGNMENT OF BENEFITS 2023-03-07 04:54:51 Docjennifer r Unassigned, Hodges [facility] RAPID STREP SCREEN FOR GROUP A 2023-03-07 03:52:00 Hermilo Ricks [facility] CONSENT/REFUSAL FOR DIAGNOSIS AND TREATMENT 2023-03-07 02:58:48 Doctor Unassigned, Hodges [facility] BASIC METABOLIC PANEL (NA, K, CL, CO2, GLUCOSE, BUN, CREATININE, CA) 2023-02-02 06:41:00 Selene Parra [facility] CBC WITH DIFF 2023-02-02 06:41:00 Selene Parra [facility] POCT TEST 2023-02-02 06:17:00 Selene Parra [facility] NOTICE OF PRIVACY PRACTICES 2023-02-02 06:00:34 Doctor Unassigned, Hodges [facility] CONSENT/REFUSAL FOR DIAGNOSIS AND TREATMENT 2023-02-02 05:59:54 Doctor Unassigned, Hodges [facility] CT ABDOMEN PELVIS W CONTRAST 2022-10-24 20:00:18 Suraj Scott [facility] US OVARY TORSION 2022-10-24 19:43:53 Suraj Scott [facility] LIPASE 2022-10-24 18:58:00 Suraj Scott [facility] COMP. METABOLIC PANEL ([id number]) 2022-10-24 18:58:00 Suraj Scott [facility] CBC WITH DIFF 2022-10-24 18:58:00 [facility] 2022-10-24 18:58:00 [facility] 2022-10-24 18:58:00 Odessa Scott [facility] CBC WITH DIFF 2022-07-21 13:07:[address] [facility] POCT TEST 2022-07-21 12:55:00 Jeanine Ricks [facility] URINALYSIS 2022-07-21 12:52:[address] [facility] CONSENT/REFUSAL FOR DIAGNOSIS AND TREATMENT 2022-07-21 12:44:40 Doctor Unassigned, Hodges [facility] CT ABDOMEN PELVIS W CONTRAST 2022-05-19 21:32:53 Cat Rutledge [facility] LIPASE 2022-05-19 20:49:00 Cat [facility] COMP. METABOLIC PANEL ([id number]) 2022-05-19 20:49:00 Cat Rutledge [facility] CBC WITH DIFF 2022-05-19 20:49:[address] [facility] URINALYSIS 2022-05-19 20:49:00 Cat Rutledge [facility] POCT TEST 2022-05-19 20:49:00 Paxton Rutledge [facility] URINE DRUG (IMMUNOASSAY) - COMPREHENSIVE DRUG SCREEN W/O REFLEX 2022-05-19 20:49:00 Cat Rutledge [facility] CONSENT/REFUSAL FOR DIAGNOSIS AND TREATMENT 2022-05-19 20:16:10 Doctor Unassigned, Hodges [facility] POCT TEST 2022-05-13 07:37:00 Selene Parra [facility] LIPASE 2022-05-13 07:32:[address] [facility] COMP. METABOLIC PANEL ([id number]) 2022-05-13 07:32:00 Selene Parra [facility] CBC WITH DIFF 2022-05-13 07:32:00 Selene Parra [facility] URINALYSIS 2022-05-13 07:32:[address] [facility] CONSENT/REFUSAL FOR DIAGNOSIS AND TREATMENT 2022-05-13 06:55:55 Doctor Unassigned, Hodges [facility] XR ANKLE <3 VW RIGHT 2022-04-01 22:28:50 Deny Rg [facility] URINALYSIS 2022-04-01 22:21:[address] [facility] POCT TEST 2022-04-01 22:19:00 Christy Rg [facility] CONSENT/REFUSAL FOR DIAGNOSIS AND TREATMENT 2022-04-01 21:40:47 Doctor Unassigned, Hodges [facility] POCT TEST 2021-10-25 19:54:00 Lisa Tran [facility] URINALYSIS 2021-10-25 19:53:[address] [facility] CONSENT/REFUSAL FOR DIAGNOSIS AND TREATMENT 2021-10-25 19:34:46 Doctor Unassigned, Hodges [facility] NOTICE OF PRIVACY PRACTICES 2021-10-25 19:34:06 Doctor Unassigned, Hodges [facility] Plan of Care Planned Activity Planned Date Details Comments Source Goal Plan of Care Note [code = 23358-6] Goal Plan of Care Note [code = 00461-3] Goal Plan of Care Note [code = 72761-4] Goal Plan of Care Note [code = 22549-4] Goal Plan of Care Note [code = 29265-4] Goal Plan of Care Note [code = 01220-7] Goal Plan of Care Note [code = 07481-1] Goal Plan of Care Note [code = 88205-6] Goal Plan of Care Note [code = 85406-2] Goal Plan of Care Note [code = 92596-2] Goal Plan of Care Note [code = 71224-9] Goal Plan of Care Note [code = 27143-2] Goal Plan of Care Note [code = 32569-2] Goal Plan of Care Note [code = 14518-1] Goal Plan of Care Note [code = 55351-7] Goal Plan of Care Note [code = 28731-4] Goal Plan of Care Note [code = 59725-6] Goal Plan of Care Note [code = 57805-4] Goal Plan of Care Note [code = 29969-5] Goal Plan of Care Note [code = 46925-2] Goal Plan of Care Note [code = 24946-7] Goal Plan of Care Note [code = 57079-8] Goal Plan of Care Note [code = 69482-0] Goal Plan of Care Note [code = 62737-1] Goal Plan of Care Note [code = 31850-6] Encounters Start Date/Time End Date/Time Encounter Type Admission Type Attending [facility] Care Department Encounter ID Source 2025-07-16 13:43:42 2025-07-16 13:43:42 Outpatient SFA [facility] [id number] Darryl Waggoner 2025-07-16 00:00:00 2025-07-16 00:00:00 Outpatient Visit [facility] [id number] Darryl Ackerman Edilson 2025-05-08 08:15:00 2025-05-08 08:15:00 Nurse Visit Nurse, Dat Tan Rgv [facility]gyn Lesa Felipe Nurse, Dat [facility] Rg[facility] Cprit [facility]gyn [facility] MARKETING REPORTING [facility] 1.2.840.114 350.1.13.10 4.2.7.2.686 [id number] [facility] 2025-04-14 08:10:00 2025-04-14 11:33:00 Emergency X HERMILO RICKS PHILLIP [facility] ERT [id number] [facility] 2025-03-08 21:35:00 2025-03-09 02:46:00 Emergency X DONI MARIE DONNELL [facility] ERT [id number] [facility] 2025-02-04 14:30:00 2025-02-04 16:26:04 Office Visit Pgy4 MooseuCarmenzaparamjit S Pgy4 [facility] 1.2.840.114 350.1.13.10 4.2.7.2.686 [id number] [facility] 2025-01-27 12:28:00 2025-01-27 13:54:00 Emergency X STEF SAIMA PATRICE [facility] ERT [id number] [facility] 2025-01-27 12:28:00 2025-01-27 13:54:00 Emergency Patrice Holland [facility] 1.2.840.114 350.1.13.10 4.2.7.2.686 [id number] [facility] 2025-01-19 00:00:00 2025-01-21 08:15:33 Telephone Pgy4 Pgy4 [facility] 1.2.840.114 350.1.13.10 4.2.7.2.686 [id number] [facility] 2025-01-17 02:31:00 2025-01-17 04:24:00 Emergency X RAQUELMERCEDESORIANASELENE WAKILI [facility] ERT [id number] [facility] 2025-01-17 02:31:00 2025-01-17 04:24:00 Emergency RaquelmercedesorianaSelene S [facility] 1.2.840.114 350.1.13.10 4.2.7.2.686 [id number] [facility] 2025-01-13 00:00:00 2025-01-16 10:06:01 Telephone Pgy4 Pgy4 [facility] 1.2.840.114 350.1.13.10 4.2.7.2.686 [id number] [facility] 2025-01-05 05:08:00 2025-01-05 09:45:00 Emergency X DONI MARIE FRANK DONI [facility] ERT [id number] [facility] 2025-01-05 05:08:00 2025-01-05 09:45:00 Emergency Hermilo RicksMoyDoni [facility] 1.2.840.114 350.1.13.10 4.2.7.2.686 [id number] [facility] 2024-12-19 08:24:26 2024-12-19 08:24:26 Outpatient SFA [facility] [id number] Darryl Waggoner 2024-12-18 15:04:52 2024-12-18 15:04:52 Outpatient SFA [facility] [id number] Darryl Ackerman Valmy 2024-12-17 23:56:00 2024-12-18 01:23:00 Emergency X BREANNAATTILAMARTHA IsaacsMANISHARIC [facility] ERT [id number] [facility] 2024-12-17 23:56:00 2024-12-18 01:23:00 Emergency BreannaattilaGaby isaacs [facility] 1.2.840.114 350.1.13.10 4.2.7.2.686 [id number] [facility] 2024-12-18 00:00:00 2024-12-18 00:00:00 Outpatient Visit SFA [id number] Darryl Waggoner 2024-12-12 11:22:49 2024-12-12 11:22:49 Outpatient SFA [facility] [id number] Darryl Waggonre 2024-11-28 09:13:53 2024-11-28 09:13:53 Outpatient SFA [facility] [id number] Darryl Waggoner 2024-11-28 00:00:00 2024-11-28 00:00:00 Outpatient Visit SFA [id number] Darryl Waggoner 2024-11-27 09:21:53 2024-11-27 09:21:53 Outpatient SFA [facility] [id number] Darryl Waggoner 2024-11-27 00:00:00 2024-11-27 00:00:00 Outpatient Visit SFA [id number] Darryl Waggoner 2024-11-18 21:05:00 2024-11-18 22:48:00 Emergency X SELENE PARRA, CHELSEASIDDHARTH [facility] ERT [id number] [facility] 2024-11-18 21:05:00 2024-11-18 22:48:00 Emergency Selene Parra S [facility] 1.2.840.114 350.1.13.10 4.2.7.2.686 [id number] [facility] 2024-11-08 22:41:00 2024-11-09 00:01:00 Emergency X CHRISTY RG PAMALA [facility] ERT [id number] [facility] 2024-11-08 22:41:00 2024-11-09 00:01:00 Emergency Christy Rg [facility] 1.2.840.114 350.1.13.10 4.2.7.2.686 [id number] [facility] 2024-10-22 09:57:20 2024-10-22 09:57:20 Outpatient SFA [facility] [id number] Darryl Waggoner 2024-10-22 00:00:00 2024-10-22 00:00:00 Outpatient Visit SFA [id number] Darryl Waggoner 2024-08-25 14:31:29 2024-08-25 14:31:29 Outpatient SFA [facility] [id number] Darryl Waggoner 2024-08-25 00:00:00 2024-08-25 00:00:00 Outpatient Visit [facility] [id number] Darryl Waggoner 2024-07-25 07:55:00 2024-07-25 10:46:00 Emergency X DONI MARIE DONNELL [facility] ERT [id number] [facility] 2024-07-25 07:55:00 2024-07-25 10:46:00 Emergency Doni Marie [facility] 1.2.840.114 350.1.13.10 4.2.7.2.686 [id number] [facility] 2024-07-09 15:24:23 2024-07-09 15:24:23 Outpatient SFA [facility] [id number] Darryl Waggoner 2024-07-09 00:00:00 2024-07-09 00:00:00 Outpatient Visit [facility] [id number] Darryl Ackerman Edilson 2024-07-04 02:23:00 2024-07-04 06:07:00 Emergency X SELENE PARRA WAKILI [facility] [id number] [facility] 2024-07-04 02:23:00 2024-07-04 06:07:00 Emergency Selene Parra [facility] 1.2.840.114 350.1.13.10 4.2.7.2.686 [id number] [facility] 2024-03-18 13:39:14 2024-03-18 13:39:14 Outpatient SFA [facility] [id number] Darryl Waggoner 2024-03-18 00:00:00 2024-03-18 00:00:00 Outpatient Visit [facility] [id number] Darryl Waggoner 2024-03-12 02:06:00 2024-03-12 06:07:00 Emergency X SELENE PARRA [facility] ERT [id number] [facility] 2024-03-12 02:06:00 2024-03-12 06:07:00 Emergency Selene Parra [facility] 1.2.840.114 350.1.13.10 4.2.7.2.686 [id number] [facility] 2024-03-06 11:34:36 2024-03-06 11:34:36 Outpatient SFA [facility] [id number] Darryl Waggoner 2024-03-06 00:00:00 2024-03-06 00:00:00 Outpatient Visit SFA [id number] Darryl Waggoner 2024-02-03 03:57:00 2024-02-03 07:11:00 Emergency Selene Parra [facility] 1.2.840.114 350.1.13.10 4.2.7.2.686 [id number] [facility] 2024-01-01 22:28:00 2024-01-02 00:44:00 Emergency X DONI MARIE DONNELL [facility] ERT [id number] [facility] 2024-01-01 22:28:00 2024-01-02 00:44:00 Emergency Doni Marie [facility] 1.2.840.114 350.1.13.10 4.2.7.2.686 [id number] [facility] 2023-12-31 15:24:49 2023-12-31 15:24:49 Outpatient SFA [facility] [id number] Darryl Waggoner 2023-12-26 03:53:00 2023-12-26 05:24:00 Emergency X SELENE PARRA [facility] ERT [id number] [facility] 2023-12-26 03:53:00 2023-12-26 05:24:00 Emergency Selene Parra [facility] 1.2.840.114 350.1.13.10 4.2.7.2.686 [id number] [facility] 2023-12-17 08:09:17 2023-12-17 08:09:17 Outpatient SFA [facility] [id number] Darryl Waggoner 2023-11-20 06:45:00 2023-11-20 10:52:00 Emergency X DONI MARIE [facility] ERT [id number] [facility] 2023-11-20 06:45:00 2023-11-20 10:52:00 Emergency Doni Marie [facility] 1.2.840.114 350.1.13.10 4.2.7.2.686 [id number] [facility] 2023-11-14 13:08:33 2023-11-14 13:08:33 Outpatient SFA [facility] [id number] Darryl Waggoner 2023-11-12 00:13:00 2023-11-12 01:10:00 Emergency X CHAYO SRIVASTAVA [facility] ERT [id number] [facility] 2023-11-12 00:13:00 2023-11-12 01:10:00 Emergency Chayo Srivastava [facility] 1.2840.114 350.1.13.10 4.2.7.2.686 [id number] [facility] 2023-10-27 20:33:00 2023-10-27 20:58:00 Emergency X Kavita OJEDA [facility] ERT [id number] [facility] 2023-10-27 20:33:00 2023-10-27 20:58:00 Emergency Kavita Ojeda [facility] 1.2.840.114 350.1.13.10 4.2.7.2.686 [id number] [facility] 2023-09-17 09:14:32 2023-09-17 09:14:32 Outpatient SFA [facility] [id number] Darryl Waggoner 2023-09-08 18:32:00 2023-09-08 21:46:00 Emergency X CHRISTY RG [facility] ERT [id number] [facility] 2023-09-08 18:32:00 2023-09-08 21:46:00 Emergency KrishDanie freeman LandyChristy Byron [facility] 1.2.840.114 350.1.13.10 4.2.7.2.686 [id number] [facility] 2023-09-07 06:47:00 2023-09-07 08:22:00 Emergency X ATIFCHAYO [facility] ERT [id number] [facility] 2023-09-07 06:47:00 2023-09-07 08:22:00 Emergency Chayo Srivastava [facility] 1.2.840.114 350.1.13.10 4.2.7.2.686 [id number] [facility] 2023-09-03 18:57:00 2023-09-03 22:03:00 Emergency X JAMES PARRAJOSE A [facility] ERT [id number] [facility] 2023-09-03 18:57:00 2023-09-03 22:03:00 Emergency Selene Parra [facility] 1.2.840.114 350.1.13.10 4.2.7.2.686 [id number] [facility] 2023-08-28 16:44:07 2023-08-28 16:44:07 Outpatient SFA [facility] [id number] Darryl Waggoner 2023-08-03 23:07:00 2023-08-04 01:08:00 Emergency X Kavita OJEDA [facility] ERT [id number] [facility] 2023-08-03 23:07:00 2023-08-04 01:08:00 Emergency Kavita Ojeda [facility] 1.2.840.114 350.1.13.10 4.2.7.2.686 [id number] [facility] 2023-07-26 02:41:00 2023-07-26 04:25:00 Emergency X MEMO RESENDIZ [facility] ERT [id number] [facility] 2023-07-26 02:41:00 2023-07-26 04:25:00 Emergency Memo Resendiz [facility] 1.2.840.114 350.1.13.10 4.2.7.2.686 [id number] [facility] 2023-07-25 07:36:00 2023-07-25 10:13:00 Emergency X MANUEL ARRIAGAANNE [facility] ERT [id number] [facility] 2023-07-25 07:36:00 2023-07-25 10:13:00 Emergency Schoenstein Rose Arriaga Danii [facility] 1.2.840.114 350.1.13.10 4.2.7.2.686 [id number] [facility] 2023-07-24 08:14:55 2023-07-24 08:14:55 Outpatient [facility] [id number] Darryl Tyron Edilson 2023-07-12 07:35:00 2023-07-12 09:00:00 Emergency X MARIEDONI [facility] ERT [id number] [facility] 2023-07-12 07:35:00 2023-07-12 09:00:00 Emergency Frank Doni [facility] 1.2.840.114 350.1.13.10 4.2.7.2.686 [id number] [facility] 2023-07-02 13:54:28 2023-07-02 13:54:28 Outpatient [facility] [id number] Darryl Waggoner 2023-06-26 13:20:40 2023-06-26 13:20:40 Outpatient SFA [facility] [id number] Darryl Waggoner 2023-06-24 05:33:00 2023-06-24 06:50:00 Emergency X SELENE PARRA [facility] ERT [id number] [facility] 2023-06-24 05:33:00 2023-06-24 06:50:00 Emergency Selene Parra [facility] 1.2.840.114 350.1.13.10 4.2.7.2.686 [id number] [facility] 2023-06-20 16:08:31 2023-06-20 16:08:31 Outpatient SFA [facility] [id number] Darryl Waggoner 2023-06-17 23:54:00 2023-06-18 01:35:00 Emergency X MICHELLE TERRY [facility] ERT [id number] [facility] 2023-06-17 23:54:00 2023-06-18 01:35:00 Emergency Michelle Terry [facility] 1.2.840.114 350.1.13.10 4.2.7.2.686 [id number] [facility] 2023-06-16 10:56:55 2023-06-16 10:56:55 Outpatient S[facility] [id number] Darryl Waggoner 2023-06-14 13:35:05 2023-06-14 13:35:05 Outpatient SFA [facility] [id number] Darryl Waggoner 2023-06-12 11:11:07 2023-06-12 11:11:07 Outpatient SFA [facility] [id number] Darryl Waggoner 2023-06-11 23:25:00 2023-06-12 04:49:00 Emergency X RAVEN LIEBERMAN [facility] ERT [id number] [facility] 2023-06-11 23:25:00 2023-06-12 04:49:00 Emergency Raven Lieberman [facility] 1.2.840.114 350.1.13.10 4.2.7.2.686 [id number] [facility] 2023-06-05 11:34:51 2023-06-05 11:34:51 Outpatient [facility] [id number] Darryl Waggoner 2023-05-28 08:05:43 2023-05-28 08:05:43 Outpatient [facility] [id number] Darryl Waggoner 2023-05-28 00:40:00 2023-05-28 04:06:00 Emergency X LIEBERMAN, RAVEN [facility] ERT [id number] [facility] 2023-05-28 00:40:00 2023-05-28 04:06:00 Emergency Raven Lieberman [facility] 1..840.114 350.1.13.10 4.2.7.2.686 [id number] [facility] 2023-05-28 00:00:00 2023-05-28 00:00:00 Orders Only Doctor Unassigned, [facility] 1..840.114 350.1.13.10 4.2.7.2.686 [id number] [facility] 2023-04-30 13:49:49 2023-04-30 13:49:49 Outpatient [facility] [id number] Darryl Waggoner 2023-04-23 08:52:34 2023-04-23 08:52:34 Outpatient [facility] [id number] Darryl Waggoner 2023-03-06 22:52:00 2023-03-07 00:12:00 Emergency X HERMILO RICKS [facility] ERT [id number] [facility] 2023-03-06 22:52:00 2023-03-07 00:12:00 Emergency Hermilo Ricks [facility] 1.2.840.114 350.1.13.10 4.2.7.2.686 [id number] [facility] 2023-02-02 01:06:00 2023-02-02 02:49:00 Emergency X SELENE PARRA [facility] ERT [id number] [facility] 2023-02-02 01:06:00 2023-02-02 02:49:00 Emergency Selene Parra [facility] 1.2.840.114 350.1.13.10 4.2.7.2.686 [id number] [facility] 2023-02-02 00:00:00 2023-02-02 00:00:00 Orders Only Doctor Unassigned, [place]ges [facility] 1.2.840.114 350.1.13.10 4.2.7.2.686 [id number] [facility] 2022-10-24 12:04:00 2022-10-24 15:45:00 Emergency X SURAJ SCOTT [facility] ERT [id number] [facility] 2022-10-24 12:04:00 2022-10-24 15:45:00 Emergency Suraj Scott [facility] 1.2.840.114 350.1.13.10 4.2.7.2.686 [id number] [facility] 2022-09-25 10:04:19 2022-09-25 10:04:19 Outpatient [facility] [id number] Darryl Waggoner 2022-09-25 00:00:00 2022-09-25 00:00:00 Outpatient Visit [id number] 2022-07-21 07:49:00 2022-07-21 08:56:00 Emergency X HERMILO RICKS [facility] ERT [id number] [facility] 2022-07-21 07:49:00 2022-07-21 08:56:00 Emergency Hermilo Ricks [facility] 1.2.840.114 350.1.13.10 4.2.7.2.686 [id number] [facility] 2022-05-19 15:38:00 2022-05-19 17:24:00 Emergency X CAT RUTLEDGE [facility] ERT [id number] [facility] 2022-05-19 15:38:00 2022-05-19 17:24:00 [facility] 1.2.840.114 350.1.13.10 4.2.7.2.686 [id number] [facility] 2022-05-19 00:00:00 2022-05-19 00:00:00 Outpatient Visit [id number] 2022-05-13 02:08:00 2022-05-13 04:24:00 Emergency Selene Parra [facility] 1..840.114 350.1.13.10 4.2.7.2.686 [id number] 084 [id number] [facility] 2022-05-13 02:08:00 2022-05-13 04:24:00 Emergency X SELENE PARRA [facility] ERT [id number] [facility] 2022-04-01 16:48:00 2022-04-01 18:39:00 Emergency X CHRISTY RG [facility] ERT [id number] [facility] 2022-04-01 16:48:00 2022-04-01 18:39:00 Emergency Christy Rg [facility] 1.2.840.114 350.1.13.10 4.2.7.2.686 [id number] [id number] [facility] 2022-04-01 00:00:00 2022-04-01 00:00:00 Orders Only Doctor Unassigned, Hodges [facility] 1.2.840.114 350.1.13.10 4.2.7.2.686 [id number] 009 [id number] [facility] 2021-10-25 13:44:00 2021-10-25 15:25:00 Emergency X LISA TRAN [facility] ERT [id number] [facility] 2021-10-25 13:44:00 2021-10-25 15:25:00 Emergency Lisa Tran [facility] 1.2.840.114 350.1.13.10 4.2.7.2.686 [id number] 084 [id number] [facility] 2021-10-25 00:00:00 2021-10-25 00:00:00 Orders Only Doctor Unassigned, Hodges [facility] 1.2.840.114 350.1.13.10 4.2.7.2.686 [id number] 009 [id number] [facility] 2021-05-03 17:49:00 2021-05-04 02:46:00 Emergency [facility] MED [id number] [facility] 2021-04-16 21:16:42 2021-04-22 13:04:00 Inpatient CL [facility] [id number] [facility] 2021-04-08 17:04:00 2021-04-08 17:04:00 Emergency X ROCHELLE GOLD [facility] ERT [id number] [facility] 2021-04-08 02:42:00 2021-04-08 02:42:00 Emergency X LISA TRAN [facility] ERT [id number] [facility] 2021-03-24 18:36:00 2021-03-24 18:36:00 Emergency X [facility] ERT [id number] [facility] Results Test Description Test Time [...] suspicious sclerotic or lytic osseous lesions.No fractures. [facility] 14:15[facility]00* Test Item Value Reference Range Interpretation Comme nts LIPASE (test code = 7040567673) 62 U/L 0-220 Lab Interpretation (test cod e = 58519-0) Normal [facility] [id number] 14:01:56* Test Item Value Reference Range Interpretation [...] g/dL 31.6-35.1 L RDW-SD (test code = 77288-5) 44.9 fL 39.0-49.9 RDW-CV (test code = 788-0) 16.6 % 12.0-15.5 H PLT (test code = 777-3) 327 166-358 MPV (test code = 86675-6) 9.7 fL 9.5-12.9 NRBC/100 WBC (test code = 5522770204) 0 0.0-10.0 NRBC x10^3 (test code = 7195945172) See_Comment [Automated messa ge] The system which generated this result transmitted reference range: 10*3/?L. The reference range was not used to interpret this result as normal/abnormal. GRAN MAT (NEUT) % (test code = 770-8) 56.4 % IMM GRAN % (test code = 6703219135) 0.2 % LYMPH % (test code = 736-9) 28.9 % MONO % (test code = 5905-5) 7.8 % EOS % (test code = 713-8) 6.2 % BASO % (test code = 706-2) 0.5 % GRAN MAT x10^3(ANC) (test code = 2818573332) 3.16 10*3/uL 1.88-7.09 IMM GRAN x10^3 (test code = 8213089939) 0.00-0.06 LYMPH x10^3 (test code = 731-0) 1.62 10*3/uL 1.32-3.29 MONO x10^3 (test code = 742-7) 0.44 10*3/uL 0.33-0.92 EOS x10^3 (test code = 711-2) 0.35 10*3/uL 0.03-0.39 BASO x10^3 (test code = 704-7) 0.03 10*3/uL 0.01-0.07 Lab Interpretation (test code = 46391-1) Abnormal [facility] Ovary [id number] 05:13:32EXAM: US OVARY TORSION ORDERING PROVIDER: DONI MARIE HISTORY: 34 years-old Female; Provided indication: r/o ovarian torsion . LMP = 02/22/2025Pregnancy test = Negative. TECHNIQUE: Transabdominal and transvaginal ultrasound imaging and colorDoppler evaluation of the pelvis was performed. Spectral Doppler evaluationof the ovaries was performed. Senior [employer] Developer images were obtained for therecord.COMPARISON: Pelvic ultrasound obtained on 11/20/2023, CT abdomen pelvisobtained on 01/17/2025 FINDINGS:Uterus: The uterus measures 8.1 x 5.1 x 6.4 cm. The myometrium is heterogenous withat least one subcentimeter fibroid at the fundus. Nabothian cysts arepresent at the cervix.The endometrium is 0.9 cmthick. Right Adnexa:Ovary: The right ovary measures 3.8 x 2.9 x 3.6 cm with a volume of 21.1ml. Normal arterial and venous waveforms are visualized. Normal flow isseen on color Doppler. No suspiciouslesion is seen. A 3.2 cm simple cystdoes not require further follow-up in a premenopausal patient. Left Adnexa:Ovary: The left ovary measures 3.1 x 2.5 x 3.2 cm with a volume of 12.9 ml.Normal arterial and venous waveforms are visualized. Normal flow is seen oncolor Doppler. No suspicious lesion isseen. A small corpus luteum isnoted. Cul-de-sac: A small volume of free fluid is present.[facility] [id number] 03:06:00* Test Item Value Reference Range Interpretation Comme nts POCT PREG (test code = 1605) Negative On board controls acceptable with C Line (test code = 3574) Yes POCT PREG LOT # (test code = 3575) 390317 POCT PREG TEST DATE ( test code = 3576) 2026-07-22 Lab Interpretation (test cod e = 99661-6) Normal [facility] [id number] 19:16:00* Test Item Value Reference Range Interpretation Comme nts POCT PREG (test code = 1605) Negative On board controls acceptable with C Line (test code = 3574) Yes POCT PREG LOT # (test code = 3575) POCT PREG TEST DATE ( test code = 3576) Lab Interpretation (test cod e = 35810-4) Normal [facility] Glucose(Age >30days)2025-01-27 18:50:00* Test Item Value Reference Range Interpretation Comme nts POCT Glu (age>30days) (test code = 3342) 81 mg/dL 70-110 Lab Interpretation (test cod e = 35875-3) Normal [facility] GLUCOSE (AUTOMATED)2025-01-27 18:48:29* Test Item Value Reference Range Interpretation Comme nts POCT GLU (test code = 3386462196) 81 mg/dL 70-110 Lab Interpretation (test cod e = 11901-9) Normal [facility] Abdomen pelvis w uwxsofrn5931-05-17 08:59:03Examination: Computed tomography of the abdomen and [...] lytic or blastic bony lesion. [facility] Metabolic [id number] 07:59:26* Test Item Value Reference Range Interpretation Comme nts NA (test code = 3070365772) 136 mmol/L 135-145 K (test code = 1514455802) 3.7 mmol/L 3.5-5.0 CL (test code = 8332444688) 108 mmol/L 98-108 CO2 TOTAL (test code = 1899798182) 18 mmol/L 23-31 L AGAP (test code = 6132428306) 10 2-16 BUN (test code = 1296622250) 6 mg/dL 7-23 L GLUCOSE (test code = 4782953132) 100 mg/dL 70-110 CREATININE (test code = 2160-0) 0.76 mg/dL 0.50-1.04 TOTAL BILI (test code = 7226641548) 0.3 mg/dL 0.1-1.1 CALCIUM (test code = 8547989589) 9.2 mg/dL 8.6-10.6 T PROTEIN (test code = 4412735682) 8.0 g/dL 6.3-8.2 ALBUMIN (test code = 3473272868) 4.7 g/dL 3.5-5.0 ALK PHOS (test code = 0488102912) 88 U/L 34-122 ALTv (test code = 1742-6) 15 U/L 5-35 AST(SGOT) (test code = 6562431310) 19 U/L 13-40 eGFR (test code = 59504-8) 106.3 mL/min/1.73m2 CKD-EPI eGFR (2020). Assuming creatinine has been stable day-to-day for at least three months, the eGFR indicates Category G1 (>= 90 mL/min/1.73 m2) Lab Interpretation (test code = 51129-6) Abnormal [facility], Bvxcd7066-54-32 07:59:26* Test Item Value Reference Range Interpretation Comme nts LIPASE (test code = 1373028354) 206 U/L 0-220 Lab Interpretation (test cod e = 63961-4) Normal [facility] with Ngnkvvvkmcsj4354-36-76 07:47:02* Test Item Value Reference Range Interpretation [...] g/dL 31.6-35.1 L RDW-SD (test code = 49015-9) 41.8 fL 39.0-49.9 RDW-CV (test code = 788-0) 15.8 % 12.0-15.5 H PLT (test code = 777-3) 391 166-358 H MPV (test code = 93134-1) 10.1 fL 9.5-12.9 NRBC/100 WBC (test code = 1817259733) 0.0 0.0-10.0 NRBC x10^3 (test code = 3523288296) See_Comment [Automated messa ge] The system which generated this result transmitted reference range: 10*3/?L. The reference range was not used to interpret this result as normal/abnormal. GRAN MAT (NEUT) % (test code = 770-8) 43.1 % IMM GRAN % (test code = 1681624447) 0.10 % LYMPH % (test code = 736-9) 43.8 % MONO % (test code = 5905-5) 9.1 % EOS % (test code = 713-8) 3.3 % BASO % (test code = 706-2) 0.6 % GRAN MAT x10^3(ANC) (test code = 0705163700) 3.34 10*3/uL 1.88-7.09 IMM GRAN x10^3 (test code = 7662451485) 0.00-0.06 LYMPH x10^3 (test code = 731-0) 3.40 10*3/uL 1.32-3.29 H MONO x10^3 (test code = 742-7) 0.71 10*3/uL 0.33-0.92 EOS x10^3 (test code = 711-2) 0.26 10*3/uL 0.03-0.39 BASO x10^3 (test code = 704-7) 0.05 10*3/uL 0.01-0.07 Lab Interpretation (test code = 86700-1) Abnormal [facility] Phop5337-03-96 07:32:00* Test Item Value Reference Range Interpretation Comme nts POCT PREG (test code = 1605) Negative On board controls acceptable with C Line (test code = 3574) Yes POCT PREG LOT # (test code = 3575) [id number] POCT PREG TEST DATE ( test code = 3576) Lab Interpretation (test cod e = 03765-9) Normal [facility] Abdomen pelvis w bzsdvjze9411-38-28 13:55:36EXAM: CT ABDOMEN PELVIS W CONTRAST 01/05/2025 [...] SOFT TISSUES: No aggressive bone lesions.[facility] POCT [id number] 11:58:00* Test Item Value Reference Range Interpretation Comme nts POCT PREG (test code = 1605) Negative On board controls acceptable with C Line (test code = 3574) Yes POCT PREG LOT # (test code = 3575) 370280 POCT PREG TEST DATE ( test code = 3576) [id number] Lab Interpretation (test cod e = 77818-0) Normal [facility]. Metabolic Panel (83962)2025-01-05 10:57:03* Test Item Value Reference Range Interpretation Comme nts NA (test code = 3106123204) 137 mmol/L 135-145 K (test code = 4326117907) 3.7 mmol/L 3.5-5.0 CL (test code = 4335018139) 107 mmol/L 98-108 CO2 TOTAL (test code = 4149034916) 19 mmol/L 23-31 L AGAP (test code = 1555460370) 11 2-16 BUN (test code = 2190580562) 2 mg/dL 7-23 L GLUCOSE (test code = 8424516657) 114 mg/dL 70-110 H CREATININE (test code = 2160-0) 0.89 mg/dL 0.50-1.04 TOTAL BILI (test code = 4853102576) 0.3 mg/dL 0.1-1.1 CALCIUM (test code = 4008433375) 9.4 mg/dL 8.6-10.6 T PROTEIN (test code = 9980898473) 7.5 g/dL 6.3-8.2 ALBUMIN (test code = 9940473953) 4.3 g/dL 3.5-5.0 ALK PHOS (test code = 7533095703) 88 U/L 34-122 ALTv (test code = 1742-6) 21 U/L 5-35 AST(SGOT) (test code = 9140037845) 27 U/L 13-40 eGFR (test code = 18699-3) 87.9 mL/min/1.73m2 CKD-EPI eGFR (2020). Assuming creatinine has been stable day-to-day for at least three months, the eGFR indicates Category G2 (60 - 89 mL/min/1.73 m2) Lab Interpretation (test code = 75480-6) Abnormal [facility] Chest 1 [id number] 10:54:58Study: Single view chest. Ordering Physician: RAFAEL RICKS Date: 01/05/2025 5:15 AM History:Shortness of breath, chest pain, tachycardia COMPARISON: None. Findings: Single frontal view chest demonstrates a normal heart size. Thelungs are clear without infiltrate, pleural effusion or pneumothorax.Noacute osseous abnormality is identified.[facility]ownCbc with Jlvm5591-71-26 10:39:44 * Test Item Value Reference Range [...] g/dL 31.6-35.1 L RDW-SD (test code = 20876-7) 44.0 fL 39.0-49.9 RDW-CV (test code = 788-0) 16.2 % 12.0-15.5 H PLT (test code = 777-3) 400 166-358 H MPV (test code = 75900-2) 9.7 fL 9.5-12.9 NRBC/100 WBC (test code = 5805571274) 0.0 0.0-10.0 NRBC x10^3 (test code = 1184315828) See_Comment [Automated messa ge] The system which generated this result transmitted reference range: 10*3/?L. The reference range was not used to interpret this result as normal/abnormal. GRAN MAT (NEUT) % (test code = 770-8) 70.3 % IMM GRAN % (test code = 1226872347) 0.20 % LYMPH % (test code = 736-9) 16.6 % MONO % (test code = 5905-5) 8.0 % EOS % (test code = 713-8) 4.5 % BASO % (test code = 706-2) 0.4 % GRAN MAT x10^3(ANC) (test code = 7986167551) 5.79 10*3/uL 1.88-7.09 IMM GRAN x10^3 (test code = 8495636270) 0.00-0.06 LYMPH x10^3 (test code = 731-0) 1.37 10*3/uL 1.32-3.29 MONO x10^3 (test code = 742-7) 0.66 10*3/uL 0.33-0.92 EOS x10^3 (test code = 711-2) 0.37 10*3/uL 0.03-0.39 BASO x10^3 (test code = 704-7) 0.03 10*3/uL 0.01-0.07 Lab Interpretation (test code = 66447-0) Abnormal [facility]ownPO[facility] [id number] 06:15:00* Test Item Value Reference Range Interpretation Comme nts POCT PREG (test code = 1605) Negative On board controls acceptable with C Line (test code = 3574) Yes POCT PREG LOT # (test code = 3575) [id number] POCT PREG TEST DATE ( test code = 3576) 03/09/26 Lab Interpretation (test cod e = 88536-6) Normal [facility]PAP TEST, THINPREP, IMAGED AND HPV HIGH RISK WITH [id number] 00:00:00* Test Item Value Reference Range Interpretation Comme nts SOURCE: (test code = 8001) Unspecified SLIDES: (test code = 8011) 1 LMP: (test code = 8021) NOT GIVEN SPECIMEN ADEQUACY: (test code = 92471) (NOTE) INTERPRETATION: (test code = 63223) NILM/NO EPITH. ABNORMALITY;SEE BELOW COPY HOLDER: (test code = 8101) TIERA FOSS(ASCP)IAC QC TECHNOLOGIST: (test code = 8111) TIERA Stauffer(ASCP) LOCATION: (test code = 52846) (NOTE) CPT: (test code = 8140) 84883 HPV HIGH RISK INTERP (test code = 84515) POSITIVE HPV 16 (test code = 23112) NEGATIVE HPV 18 (test code = 18484) NEGATIVE HPV, HR, OTHER GENOTYPES (test code = 88616) POSITIVE PDFE (test code = PDFReport) PDF Darryl Ackerman AustinPAP TEST, THINPREP, IMAGED AND HPV HIGH RISK WITH GENOTYPE 2024-12-02 00:00:00* Test Item Value Reference Range Interpretation Comme nts SOURCE: (test code = 8001) Unspecified SLIDES: (test code = 8011) 1 LMP: (test code = 8021) NOT GIVEN SPECIMEN ADEQUACY: (test code = 50140) (NOTE) INTERPRETATION: (test code = 07129) NILM/NO EPITH. ABNORMALITY;SEE BELOW COPY HOLDER: (test code = 8101) TIERA FOSS(ASCP)IAC QC TECHNOLOGIST: (test code = 8111) TIERA Stauffer(ASCP) LOCATION: (test code = 39412) (NOTE) CPT: (test code = 8140) 87003 HPV HIGH RISK INTERP (test code = 29065) POSITIVE HPV 16 (test code = 50506) NEGATIVE HPV 18 (test code = 28059) NEGATIVE HPV, HR, OTHER GENOTYPES (test code = 50409) POSITIVE PDFE (test code = PDFReport) PDF Darryl Ackerman AustinXR ABDOMEN ACUTE [id number] 14:50:35EXAM: XR ABDOMEN ACUTE SERIES COMPARISON: Abdominal [...] stones identified. No acute bony abnormality is present.[facility] TEST 2024-07-25 13:23:00* Test Item Value Reference Range Interpretation Comme nts POCT PREG (test code = 1605) Negative On board controls acceptable with C Line (test code = 3574) Yes POCT PREG LOT # (test code = 3575) 856594 POCT PREG TEST DATE ( test code = 3576) 10/20/2025 Lab Interpretation (test cod e = 33674-5) Normal [facility] ABDOMEN PELVIS W [id number] 09:44:53Examination: Computed tomography of the abdomen and [...] show no suspicious lytic or blastic bony lesion.[facility] Wmcv1732-42-70 07:36:00 * Test Item Value Reference Range Interpretation Comme nts POCT PREG (test code = 1605) Negative On board controls acceptable with C Line (test code = 3574) Yes POCT PREG LOT # (test code = 3575) 516916 POCT PREG TEST DATE ( test code = 3576) 07/24/2025 Lab Interpretation (test cod e = 80467-5) Normal [facility] ABDOMEN PELVIS W [id number] 10:12:02Examination: Computed tomography of the abdomen and [...] show no suspicious lytic or blastic bony lesion.[facility]. Metabolic Panel (66254)2024-03-12 09:27:38* Test Item Value Reference Range Interpretation Comme nts NA (test code = 8043892102) 137 mmol/L 135-145 K (test code = 5921445021) 3.8 mmol/L 3.5-5.0 CL (test code = 0219616024) 107 mmol/L 98-108 CO2 TOTAL (test code = 3231159603) 20 mmol/L 23-31 L AGAP (test code = 0803850479) 10 2-16 BUN (test code = 7984675481) 6 mg/dL 7-23 L GLUCOSE (test code = 0184585129) 94 mg/dL 70-110 CREATININE (test code = 2160-0) 0.83 mg/dL 0.50-1.04 TOTAL BILI (test code = 6310447445) 0.4 mg/dL 0.1-1.1 CALCIUM (test code = 2843208435) 9.2 mg/dL 8.6-10.6 T PROTEIN (test code = 9805299420) 7.6 g/dL 6.3-8.2 ALBUMIN (test code = 9065713752) 4.2 g/dL 3.5-5.0 ALK PHOS (test code = 2243018278) 73 U/L 34-122 ALTv (test code = 1742-6) 18 U/L 5-35 AST(SGOT) (test code = 1469635053) 24 U/L 13-40 eGFR (test code = 52343-4) 96.2 mL/min/1.73m2 CKD-EPI eGFR (2020). Assuming creatinine has been stable day-to-day for at least three months, the eGFR indicates Category G1 (>= 90 mL/min/1.73 m2) Lab Interpretation (test code = 59431-8) Abnormal [facility]Lipase2024-05-29 09:26:57* Test Item Value Reference Range Interpretation Comme nts LIPASE (test code = 0792353041) 108 U/L 0-220 Lab Interpretation (test cod e = 00412-5) Normal [facility]ownCb with [id number] 09:13:56* Test Item Value Reference Range Interpretation [...] g/dL 31.6-35.1 L RDW-SD (test code = 25358-4) 42.4 fL 39.0-49.9 RDW-CV (test code = 788-0) 15.7 % 12.0-15.5 H PLT (test code = 777-3) 346 166-358 MPV (test code = 95718-1) 9.8 fL 9.5-12.9 NRBC/100 WBC (test code = 4146761620) 0.0 0.0-10.0 NRBC x10^3 (test code = 5230657026) See_Comment [Automated messa ge] The system which generated this result transmitted reference range: 10*3/?L. The reference range was not used to interpret this result as normal/abnormal. GRAN MAT (NEUT) % (test code = 770-8) 43.3 % IMM GRAN % (test code = 7486745128) 0.30 % LYMPH % (test code = 736-9) 42.6 % MONO % (test code = 5905-5) 7.5 % EOS % (test code = 713-8) 5.5 % BASO % (test code = 706-2) 0.8 % GRAN MAT x10^3(ANC) (test code = 3614339390) 3.21 10*3/uL 1.88-7.09 IMM GRAN x10^3 (test code = 8719228759) 0.00-0.06 LYMPH x10^3 (test code = 731-0) 3.16 10*3/uL 1.32-3.29 MONO x10^3 (test code = 742-7) 0.56 10*3/uL 0.33-0.92 EOS x10^3 (test code = 711-2) 0.41 10*3/uL 0.03-0.39 H BASO x10^3 (test code = 704-7) 0.06 10*3/uL 0.01-0.07 Lab Interpretation (test code = 28614-6) Abnormal [facility]ownEBV-Mononucleosis Qijunb7237-30-10 11:45:15* Test Item Value Reference Range Interpretation Comme nts EBV Mononucleosis Screen (te st code = 7133897237) Negative Negative Lab Interpretation (test cod e = 30057-0) Normal [facility] ABDOMEN PELVIS W [id number] 10:26:21ORDERING PHYSICIAN: SELENE PARRA CLINICAL HISTORY: Abdominal [...] Appendixis normal. The bones are unremarkable.[facility]ownPONJ Jsmg9776-59-94 09:09:00* Test Item Value Reference Range Interpretation Comme [facility] POCT PREG (test code = 1605) Negative On board controls acceptable with C Line (test code = 3574) Yes POCT PREG LOT # (test code = 3575) 380663 POCT PREG TEST DATE ( test code = 3576) 11/21/2024 Lab Interpretation (test cod e = 92118-2) Normal [facility]SUR[facility] [id number] 09:50:51* Test Item Value Reference Range Interpretation Comme [facility] DIAGNOSIS: (test code = 8200) (NOTE) A) Conization (L EEP) - EctocervixHigh grade squamous intraepithelial lesion (CIN2), extendingfocally to endocervical and ectocervical/stromal margins. B) Conization (LEEP) - EndocervixFocal high grade squamous intraepithelial lesion (CIN2).Surgical margins negative for dysplasia. COMMENTS: (test code = 8205) (NOTE) The previously r eported abnormal Pap (accession # [id number]) isreviewed. The biopsy material more clearly displays [...] TanNUMBER OF TISSUE PIECES: 2SUBMITTED IN CASSETTE(S): [id number]: FormalinCOMMENTS:Consists of a 1.9x1.1x0.5 cm irregularly shaped [...] TanNUMBER OF TISSUE PIECES: 1SUBMITTED IN CASSETTE(S): [id number]: FormalinCOMMENTS:[place] shaped rubbery tissue fragment partially surfaced bytan-white ectocervix. Os is inked blue by clinician. Endocervicalmargin inked blue. All remaining margins inked orange. Radiallysectioned x 9 and entirely submitted. Specimen fell apart uponsectioning. PATHOLOGIST: (test code = 8250) (NOTE) Heide Shipley MD, Board-certified Anatomic and ClinicalPathology, Hematopathology Specimens processed and interpreted at [facility], [address] [place] [id number], , CLIA: [id number] CPT: (test code = 8400) (NOTE) [id number] UNLESS O THERWISE INDICATED, ALL TESTING PERFORMED AT [facility] [address] [place] [address] VIDEO PRODUCTION ENGINEER: ANIBAL PAREDES M.D. CLIA NUMBER [id number] [facility]. [id number] SURGICAL PATHOLOGY [id number] 00:00:00* Test Item Value Reference Range Interpretation Comme nts DIAGNOSIS: (test code = 8200) (NOTE) COMMENTS: (test code = 8205) (NOTE) MICROSCOPIC DESCRIPTION: (te st code = 8210) (NOTE) CLINICAL DATA: (test code = 8401) (NOTE) GROSS DESCRIPTION: (test code = 8220) (NOTE) PATHOLOGIST: (test code = 8250) (NOTE) CPT: (test code = 8400) (NOTE) PDFE (test code = PDFReport) PDF Darryl Ackerman [place] [facility] [id number] 00:00:00* Test Item Value Reference Range Interpretation Comme nts DIAGNOSIS: (test code = 8200) (NOTE) COMMENTS: (test code = 8205) (NOTE) MICROSCOPIC DESCRIPTION: (te st code = 8210) (NOTE) CLINICAL DATA: (test code = 8401) (NOTE) GROSS DESCRIPTION: (test code = 8220) (NOTE) PATHOLOGIST: (test code = 8250) (NOTE) CPT: (test code = 8400) (NOTE) PDFE (test code = PDFReport) PDF Darryl Ackerman [place] [facility] [facility] [id number] 00:00:00* Test Item Value Reference Range Interpretation Comme nts DIAGNOSIS: (test code = 8200) (NOTE) COMMENTS: (test code = 8205) (NOTE) MICROSCOPIC DESCRIPTION: (te st code = 8210) (NOTE) CLINICAL DATA: (test code = 8401) (NOTE) GROSS DESCRIPTION: (test code = 8220) (NOTE) PATHOLOGIST: (test code = 8250) (NOTE) CPT: (test code = 8400) (NOTE) PDFE (test code = PDFReport) PDF Darryl F AustinSURGICAL PATHOLOGY [id number] 00:00:00* Test Item Value Reference Range Interpretation [...] = PDFReport) PDF Darryl Ackerman AustinSURGICAL PATHOLOGY [id number] 00:00:00* Test Item Value Reference Range Interpretation Comme nts DIAGNOSIS: (test code = 8200) (NOTE) COMMENTS: (test code = 8205) (NOTE) MICROSCOPIC DESCRIPTION: (te st code = 8210) (NOTE) CLINICAL DATA: (test code = 8401) (NOTE) GROSS DESCRIPTION: (test code = 8220) (NOTE) PATHOLOGIST: (test code = 8250) (NOTE) CPT: (test code = 8400) (NOTE) PDFE (test code = PDFReport) PDF Darryl Ackerman [facility] PATHOLOG[facility] [id number] 00:00:00* Test Item Value Reference Range Interpretation [...] = PDFReport) PDF Darryl Ackerman AustinSURGICAL PATHOLOGY [id number] 00:00:00* Test Item Value Reference Range Interpretation [...] = PDFReport) PDF Darryl Ackerman AustinSURGICAL PATHOLOGY [id number] 00:00:00* Test Item Value Reference Range Interpretation [...] = PDFReport) PDF Darryl Ackerman AustinSURG[facility] PATHOLOGY [id number] 00:00:00* Test Item Value Reference Range Interpretation [...] code = PDFReport) PDF Darryl Chang OVARY [id number] 16:27:21EXAM: US OVARY TORSION HISTORY: 32 years [...] Trace volume free fluid is present.[facility] [id number] 15:15:04EXAM: CT ABDOMEN PELVIS W CONTRAST HISTORY: [...] lytic or sclerotic bony lesions arepresent.[facility]COMP. METABOLIC PANEL ([id number])2023-11-20 14:09:45* Test Item Value Reference Range Interpretation Comme nts NA (test code = 3888841554) 135 mmol/L 135-145 K (test code = 3422700149) 4.1 mmol/L 3.5-5.0 CL (test code = 6940277937) 112 mmol/L 98-108 H CO2 TOTAL (test code = 7585787238) 17 mmol/L 23-31 L AGAP (test code = 9221256057) 6 2-16 BUN (test code = 2757601258) 10 mg/dL 7-23 GLUCOSE (test code = 3223525467) 95 mg/dL 70-110 CREATININE (test code = 6182641367) 0.72 mg/dL 0.50-1.04 TOTAL BILI (test code = 2116647365) 0.2 mg/dL 0.1-1.1 CALCIUM (test code = 6763981115) 9.0 mg/dL 8.6-10.6 T PROTEIN (test code = 6056384777) 7.6 g/dL 6.3-8.2 ALBUMIN (test code = 4273105852) 4.3 g/dL 3.5-5.0 ALK PHOS (test code = 9826179136) 81 U/L 34-122 ALTv (test code = 1742-6) 23 U/L 5-35 AST(SGOT) (test code = 8607852881) 26 U/L 13-40 eGFR (test code = 14430-0) 114.8 mL/min/1.73m2 CKD-EPI eGFR (2020). Assuming creatinine has been stable day-to-day for at least three months, the eGFR indicates Category G1 (>= 90 mL/min/1.73 m2) Lab Interpretation (test code = 80189-2) [facility] [id number] 13:53:43* Test Item Value Reference Range Interpretation [...] g/dL 31.6-35.1 L RDW-SD (test code = 36417-3) 42.6 fL 39.0-49.9 RDW-CV (test code = 788-0) 15.5 % 12.0-15.5 PLT (test code = 777-3) 364 166-358 H MPV (test code = 02736-5) 10.0 fL 9.5-12.9 NRBC/100 WBC (test code = 4285549921) 0.0 0.0-10.0 NRBC x10^3 (test code = 8960117592) See_Comment [Automated messa ge] The system which generated this result transmitted reference range: 10*3/?L. The reference range was not used to interpret this result as normal/abnormal. GRAN MAT (NEUT) % (test code = 770-8) 59.8 % IMM GRAN % (test code = 8961875075) 0.30 % LYMPH % (test code = 736-9) 27.8 % MONO % (test code = 5905-5) 9.2 % EOS % (test code = 713-8) 2.1 % BASO % (test code = 706-2) 0.8 % GRAN MAT x10^3(ANC) (test code = 8698618654) 3.70 10*3/uL 1.88-7.09 IMM GRAN x10^3 (test code = 1187412079) 0.00-0.06 LYMPH x10^3 (test code = 731-0) 1.72 10*3/uL 1.32-3.29 MONO x10^3 (test code = 742-7) 0.57 10*3/uL 0.33-0.92 EOS x10^3 (test code = 711-2) 0.13 10*3/uL 0.03-0.39 BASO x10^3 (test code = 704-7) 0.05 10*3/uL 0.01-0.07 Lab Interpretation (test code = 78883-4) Abnormal [facility] [id number] 13:26:00* Test Item Value Reference Range Interpretation Comme nts POCT PREG (test code = 1605) Negative On board controls acceptable with C Line (test code = 3574) Yes POCT PREG LOT # (test code = 3575) [id number] POCT PREG TEST DATE ( test code = 3576) 01/20/2025 Lab Interpretation (test cod e = 79563-8) [facility] [id number] 13:28:00* Test Item Value Reference Range Interpretation Comme nts POCT PREG (test code = 1605) Negative On board controls acceptable with C Line (test code = 3574) Yes POCT PREG LOT # (test code = 3575) [id number] POCT PREG TEST DATE ( test code = 3576) 12/23/2024 Lab Interpretation (test cod e = 70809-8) [facility], NAAT, [id number] 18:43:32* Test Item Value Reference Range Interpretation Comme nts CHLAMYDIA, NAAT, URINE (test code = 59725) NEGATIVE NEGATIVE Testing is perfo rmed with Lucie HARRY 6800/8800 systems usingreal-time polymerase chain reaction (PCR) method. A negative result does not exclude low level infection, specimensampling error, or collection error. GONORRHEA, NAAT, URINE (test code = 99127) NEGATIVE NEGATIVE Testing is perfo rmed with Lucie HARRY 6800/8800 systems usingreal-time polymerase chain reaction (PCR) method. A negative result does not exclude low level infection, specimensampling error, or collection error. UNLESS OTHERWISE INDICATED, ALL TESTING PERFORMED AT [facility] [address] [place] [address] VIDEO PRODUCTION ENGINEER: ANIBAL PAREDES M.D. CLIA NUMBER [id number] [facility] [place]. [id number] TRICHOMONAS, NAAT, [id number] 16:46:16* Test Item Value Reference Range Interpretation Comme nts TRICHOMONAS, NAAT, URINE (test code = 50246) NEGATIVE NEGATIVE Testing is perfo rmed with Lucie HARRY 6800/8800 method usingreal-time polymerase chain reaction (PCR) method. A negative result does not exclude low level infection, specimensampling error, or collection error. TRICHOMONAS, URINE, [id number] 00:00:00* Test Item Value Reference Range Interpretation Comme nts TRICHOMONAS, NAAT, URINE (te st code = 87171) NEGATIVE Darryl F AustinCT/NG, TMA, [id number] 00:00:00* Test Item Value Reference Range Interpretation Comme nts CHLAMYDIA, NAAT, URINE (test code = 65772) NEGATIVE GONORRHEA, NAAT, URINE (test code = 03769) NEGATIVE Darryl F AustinTRICHOMONAS, URINE, [id number] 00:00:00* Test Item Value Reference Range Interpretation Comme nts TRICHOMONAS, NAAT, URINE (te st code = 92109) NEGATIVE Darryl F AustinCT/NG, TMA, [id number] 00:00:00* Test Item Value Reference Range Interpretation Comme nts CHLAMYDIA, NAAT, URINE (test code = 99170) NEGATIVE GONORRHEA, NAAT, URINE (test code = 66843) NEGATIVE Darryl F AustinTRICHOMONAS, URINE, [id number] 00:00:00* Test Item Value Reference Range Interpretation Comme nts TRICHOMONAS, NAAT, URINE (te st code = 27015) NEGATIVE Darryl F AustinCT/NG, TMA, [id number] 00:00:00* Test Item Value Reference Range Interpretation Comme nts CHLAMYDIA, NAAT, URINE (test code = 84828) NEGATIVE GONORRHEA, NAAT, URINE (test code = 05163) NEGATIVE Darryl F AustinTRICHOMONAS, URINE, [id number] 00:00:00* Test Item Value Reference Range Interpretation Comme nts TRICHOMONAS, NAAT, URINE (te st code = 02302) NEGATIVE Darryl F AustinCT/NG, TMA, [id number] 00:00:00* Test Item Value Reference Range Interpretation Comme nts CHLAMYDIA, NAAT, URINE (test code = 42545) NEGATIVE GONORRHEA, NAAT, URINE (test code = 39950) NEGATIVE Darryl F AustinTRICHOMONAS, URINE, [id number] 00:00:00* Test Item Value Reference Range Interpretation Comme nts TRICHOMONAS, NAAT, URINE (te st code = 05812) NEGATIVE Darryl F AustinCT/NG, TMA, [id number] 00:00:00* Test Item Value Reference Range Interpretation Comme nts CHLAMYDIA, NAAT, URINE (test code = 95742) NEGATIVE GONORRHEA, NAAT, URINE (test code = 24573) NEGATIVE Darryl F AustinTRICHOMONAS, URINE, [id number] 00:00:00* Test Item Value Reference Range Interpretation Comme nts TRICHOMONAS, NAAT, URINE (te st code = 78392) NEGATIVE Darryl F AustinCT/NG, TMA, [id number] 00:00:00* Test Item Value Reference Range Interpretation Comme nts CHLAMYDIA, NAAT, URINE (test code = 67447) NEGATIVE GONORRHEA, NAAT, URINE (test code = 40187) NEGATIVE Darryl F AustinTRICHOMONAS, URINE, [id number] 00:00:00* Test Item Value Reference Range Interpretation Comme nts TRICHOMONAS, NAAT, URINE (te st code = 16826) NEGATIVE Darryl F AustinCT/NG, TMA, [id number] 00:00:00* Test Item Value Reference Range Interpretation Comme nts CHLAMYDIA, NAAT, URINE (test code = 99109) NEGATIVE GONORRHEA, NAAT, URINE (test code = 95613) NEGATIVE Darryl F AustinTRICHOMONAS, URINE, [id number] 00:00:00* Test Item Value Reference Range Interpretation Comme nts TRICHOMONAS, NAAT, URINE (te st code = 72919) NEGATIVE Darryl F AustinCT/NG, TMA, [id number] 00:00:00* Test Item Value Reference Range Interpretation Comme nts CHLAMYDIA, NAAT, URINE (test code = 27835) NEGATIVE GONORRHEA, NAAT, URINE (test code = 13893) NEGATIVE Darryl F AustinTRICHOMONAS, URINE, [id number] 00:00:00* Test Item Value Reference Range Interpretation Comme nts TRICHOMONAS, NAAT, URINE (te st code = 95535) NEGATIVE Darryl F AustinCT/NG, TMA, [id number] 00:00:00* Test Item Value Reference Range Interpretation Comme nts CHLAMYDIA, NAAT, URINE (test code = 16149) NEGATIVE GONORRHEA, NAAT, URINE (test code = 43492) NEGATIVE Darryl F AustinPOCT [id number] 12:56:00* Test Item Value Reference Range Interpretation Comme nts POCT PREG (test code = 1605) Negative On board controls acceptable with C Line (test code = 3574) Yes POCT PREG LOT # (test code = 3575) HCG [id number] POCT PREG TEST DATE (test code = 3576) 12/12/2024 Lab Interpretation (test cod e = 24325-1) [facility] [id number] 10:24:44* Test Item Value Reference Range Interpretation [...] TanNUMBER OF TISSUE PIECES: 1SUBMITTED IN CASSETTE(S): [id number]: FormalinCOMMENTS:Entirely submitted intact. F) SPECIMEN LABELED: Cervix 8:00SIZE/WEIGHT: 0.2x0.1x0.1 cm SPECIMEN COLOR: TanNUMBER OF TISSUE PIECES: 1SUBMITTED IN CASSETTE(S): [id number]: FormalinCOMMENTS:Entirely submitted intact. A) SPECIMEN LABELED: EndometriumSIZE/WEIGHT: 1.4x1.3x0.2 cm AggregateSPECIMEN COLOR: TanNUMBER OF TISSUE PIECES: multipleSUBMITTED IN CASSETTE(S): [id number]: FormalinCOMMENTS:Filtered and entirely submitted. B) SPECIMEN LABELED: EndocervixSIZE/WEIGHT: 1.7x1.5x0.3 cm AggregateSPECIMEN COLOR: TanNUMBER OF TISSUE PIECES: multipleSUBMITTED IN CASSETTE(S): [id number]: FormalinCOMMENTS:Filtered and entirely submitted. C) SPECIMEN LABELED: Cervix 1:00SIZE/WEIGHT: 0.4x0.3x0.1 cm SPECIMEN COLOR: TanNUMBER OF TISSUE PIECES: 1SUBMITTED IN CASSETTE(S): [id number]: FormalinCOMMENTS:Entirely submitted intact. D) SPECIMEN LABELED: Cervix 3:00SIZE/WEIGHT: 0.2x0.2x0.1 cm SPECIMEN COLOR: TanNUMBER OF TISSUE PIECES: 1SUBMITTED IN CASSETTE(S): [id number]: FormalinCOMMENTS:Entirely submitted intact. PATHOLOGIST: (test code = 8250) (NOTE) Gita Morocho M.D., P h.D., Board Certified in Anatomic and ClinicalPathology, Cytopathology Specimens processed and interpreted at [facility], [address] [place], [place] [address], , CLIA: [id number] CPT: (test code = 8400) (NOTE) 09273s5 UNLESS O THERWISE INDICATED, ALL TESTING PERFORMED AT [facility] [address] [place] [address] VIDEO PRODUCTION ENGINEER: ANIBAL PAREDES M.D. CLIA NUMBER [id number] [facility] [place]. [id number] SURGICAL PATHOLOGY [id number] 00:00:00* Test Item Value Reference Range Interpretation Comme nts DIAGNOSIS: (test code = 8200) (NOTE) MICROSCOPIC DESCRIPTION: (te st code = 8210) (NOTE) CLINICAL DATA: (test code = 8401) (NOTE) GROSS DESCRIPTION: (test code = 8220) (NOTE) PATHOLOGIST: (test code = 8250) (NOTE) CPT: (test code = 8400) (NOTE) PDFE (test code = PDFReport) PDF Darryl Ackerman AustinS[facility]ICAL PATHOLOGY [id number] 00:00:00* Test Item Value Reference Range Interpretation Comme nts DIAGNOSIS: (test code = 8200) (NOTE) MICROSCOPIC DESCRIPTION: (te st code = 8210) (NOTE) CLINICAL DATA: (test code = 8401) (NOTE) GROSS DESCRIPTION: (test code = 8220) (NOTE) PATHOLOGIST: (test code = 8250) (NOTE) CPT: (test code = 8400) (NOTE) PDFE (test code = PDFReport) PDF Darryl Ackerman AustinSURGICAL PATHOLOGY [id number] 00:00:00* Test Item Value Reference Range Interpretation Comme nts DIAGNOSIS: (test code = 8200) (NOTE) MICROSCOPIC DESCRIPTION: (te st code = 8210) (NOTE) CLINICAL DATA: (test code = 8401) (NOTE) GROSS DESCRIPTION: (test code = 8220) (NOTE) PATHOLOGIST: (test code = 8250) (NOTE) CPT: (test code = 8400) (NOTE) PDFE (test code = PDFReport) PDF Darryl Ackerman AustinSURGICAL PATHOLOGY [id number] 00:00:00* Test Item Value Reference Range Interpretation Comme nts DIAGNOSIS: (test code = 8200) (NOTE) MICROSCOPIC DESCRIPTION: (te st code = 8210) (NOTE) CLINICAL DATA: (test code = 8401) (NOTE) GROSS DESCRIPTION: (test code = 8220) (NOTE) PATHOLOGIST: (test code = 8250) (NOTE) CPT: (test code = 8400) (NOTE) PDFE (test code = PDFReport) PDF Darryl Ackerman AustinS[facility]ICAL PATHOLOG[facility] [id number] 00:00:00* Test Item Value Reference Range Interpretation Comme nts DIAGNOSIS: (test code = 8200) (NOTE) MICROSCOPIC DESCRIPTION: (te st code = 8210) (NOTE) CLINICAL DATA: (test code = 8401) (NOTE) GROSS DESCRIPTION: (test code = 8220) (NOTE) PATHOLOGIST: (test code = 8250) (NOTE) CPT: (test code = 8400) (NOTE) PDFE (test code = PDFReport) PDF Darryl Ackerman AustinS[facility]ICAL PATHOLOG[facility] [id number] 00:00:00* Test Item Value Reference Range Interpretation Comme nts DIAGNOSIS: (test code = 8200) (NOTE) MICROSCOPIC DESCRIPTION: (te st code = 8210) (NOTE) CLINICAL DATA: (test code = 8401) (NOTE) GROSS DESCRIPTION: (test code = 8220) (NOTE) PATHOLOGIST: (test code = 8250) (NOTE) CPT: (test code = 8400) (NOTE) PDFE (test code = PDFReport) PDF Darryl Ackerman ValmySURGICAL PATHOLOGY [id number] 00:00:00* Test Item Value Reference Range Interpretation Comme nts DIAGNOSIS: (test code = 8200) (NOTE) MICROSCOPIC DESCRIPTION: (te st code = 8210) (NOTE) CLINICAL DATA: (test code = 8401) (NOTE) GROSS DESCRIPTION: (test code = 8220) (NOTE) PATHOLOGIST: (test code = 8250) (NOTE) CPT: (test code = 8400) (NOTE) PDFE (test code = PDFReport) PDF Darryl Ackerman AustinS[facility]ICAL PATHOLOG[facility] [id number] 00:00:00* Test Item Value Reference Range Interpretation Comme nts DIAGNOSIS: (test code = 8200) (NOTE) MICROSCOPIC DESCRIPTION: (te st code = 8210) (NOTE) CLINICAL DATA: (test code = 8401) (NOTE) GROSS DESCRIPTION: (test code = 8220) (NOTE) PATHOLOGIST: (test code = 8250) (NOTE) CPT: (test code = 8400) (NOTE) PDFE (test code = PDFReport) PDF Darryl Ackerman AustinS[facility]ICAL PATHOLOG[facility] [id number] 00:00:00* Test Item Value Reference Range Interpretation Comme nts DIAGNOSIS: (test code = 8200) (NOTE) MICROSCOPIC DESCRIPTION: (te st code = 8210) (NOTE) CLINICAL DATA: (test code = 8401) (NOTE) GROSS DESCRIPTION: (test code = 8220) (NOTE) PATHOLOGIST: (test code = 8250) (NOTE) CPT: (test code = 8400) (NOTE) PDFE (test code = PDFReport) PDF Darryl Ackerman AustinVAGINAL PATHOGENS DNA [id number] 13:41:36* Test Item Value Reference Range Interpretation Comme nts JAZ SPECIES (test code = 91242) NEGATIVE NEGATIVE G. VAGINALIS (test code = 94527) NEGATIVE NEGATIVE T. VAGINALIS (test code = 16407) NEGATIVE NEGATIVE Note: The [employer] VPIII Microbial Identification Testis a DNA probe test intended for use in the detectionand identification of Jaz species, Gardnerellavaginalis and Trichomonas vaginalis nucleic acid. UNLESS OTHERWISE INDICATED, ALL TESTING PERFORMED AT [facility] [address] [place] [address] VIDEO PRODUCTION ENGINEER: ANIBAL PAREDES M.D. CLIA NUMBER [id number] [facility] [place]. [id number] VAGINAL PATHOGENS DNA [id number] 00:00:00* Test Item Value Reference Range Interpretation Comme nts JAZ SPECIES (test code = 30674) NEGATIVE G. VAGINALIS (test code = 38665) NEGATIVE T. VAGINALIS (test code = 02820) NEGATIVE Darryl Ackerman AustinVAGINAL PATHOGENS DNA [id number] 00:00:00* Test Item Value Reference Range Interpretation Comme nts JAZ SPECIES (test code = 95976) NEGATIVE G. VAGINALIS (test code = 62714) NEGATIVE T. VAGINALIS (test code = 92947) NEGATIVE Darryl Ackerman AustinVAGINAL PATHOGENS DNA [id number] 00:00:00* Test Item Value Reference Range Interpretation Comme nts JAZ SPECIES (test code = 19258) NEGATIVE G. VAGINALIS (test code = 64532) NEGATIVE T. VAGINALIS (test code = 58803) NEGATIVE Darryl Ackerman AustinVAGINAL PATHOGENS DNA [id number] 00:00:00* Test Item Value Reference Range Interpretation Comme nts JAZ SPECIES (test code = 37205) NEGATIVE G. VAGINALIS (test code = 25212) NEGATIVE T. VAGINALIS (test code = 75440) NEGATIVE Darryl F AustinVAGINAL PATHOGENS DNA [id number] 00:00:00* Test Item Value Reference Range Interpretation Comme nts JAZ SPECIES (test code = 05930) NEGATIVE G. VAGINALIS (test code = 93589) NEGATIVE T. VAGINALIS (test code = 56050) NEGATIVE Darryl F AustinVAGINAL PATHOGENS DNA [id number] 00:00:00* Test Item Value Reference Range Interpretation Comme nts JAZ SPECIES (test code = 53592) NEGATIVE G. VAGINALIS (test code = 97771) NEGATIVE T. VAGINALIS (test code = 98732) NEGATIVE Darryl F AustinVAGINAL PATHOGENS DNA [id number] 00:00:00* Test Item Value Reference Range Interpretation Comme nts JAZ SPECIES (test code = 81369) NEGATIVE G. VAGINALIS (test code = 59822) NEGATIVE T. VAGINALIS (test code = 01837) NEGATIVE Darryl F AustinVAGINAL PATHOGENS DNA [id number] 00:00:00* Test Item Value Reference Range Interpretation Comme nts JAZ SPECIES (test code = 69176) NEGATIVE G. VAGINALIS (test code = 34096) NEGATIVE T. VAGINALIS (test code = 83345) NEGATIVE Darryl F AustinVAGINAL PATHOGENS DNA [id number] 00:00:00* Test Item Value Reference Range Interpretation Comme nts JAZ SPECIES (test code = 46275) NEGATIVE G. VAGINALIS (test code = 74321) NEGATIVE T. VAGINALIS (test code = 18512) NEGATIVE Darryl WaggonerCOMP. METABOLIC PANEL (43411)2023-06-12 05:34:53* Test Item Value Reference Range Interpretation Comme nts NA (test code = 2547886858) 137 mmol/L 135-145 K (test code = 2155191790) 3.9 mmol/L 3.5-5.0 CL (test code = 8635040748) 106 mmol/L 98-108 CO2 TOTAL (test code = 6889732085) 24 mmol/L 23-31 AGAP (test code = 7297755429) 7 2-16 BUN (test code = 5741607482) 10 mg/dL 7-23 GLUCOSE (test code = 9873773730) 90 mg/dL 70-110 CREATININE (test code = 5315937068) 0.94 mg/dL 0.50-1.04 TOTAL BILI (test code = 5298120516) 0.1-1.1 L CALCIUM (test code = 0856366719) 9.1 mg/dL 8.6-10.6 T PROTEIN (test code = 5827587466) 6.9 g/dL 6.3-8.2 ALBUMIN (test code = 7457699189) 4.1 g/dL 3.5-5.0 ALK PHOS (test code = 0085312150) 72 U/L 34-122 ALTv (test code = 1742-6) 24 U/L 5-35 AST(SGOT) (test code = 0989244889) 28 U/L 13-40 eGFR (test code = 1510726456) 69.5 mL/min/1.73m2 ELIA (test code = ELIA) [...] imaging tests). Lab Interpretation (test code = 75954-8) Abnormal [facility] WITH [id number] 05:16:33* Test Item Value Reference Range Interpretation [...] g/dL 31.6-35.1 L RDW-SD (test code = 61711-2) 48.2 fL 39.0-49.9 RDW-CV (test code = 788-0) 17.9 % 12.0-15.5 H PLT (test code = 777-3) 327 See_Comment [Automated messa ge] The system which generated this result transmitted reference range: 166 - 358 10*3/?L. The reference range was not used to interpret this result as normal/abnormal. MPV (test code = 28058-7) 9.7 fL 9.5-12.9 NRBC/100 WBC (test code = 1016950462) 0.0 See_Comment [Automated DivX ssage] The system which generated this result transmitted reference range: 0.0 - 10.0 /100 WBCs. The reference range was not used to interpret this result as normal/abnormal. NRBC x10^3 (test code = 6272055891) See_Comment [Automated messa ge] The system which generated this result transmitted reference range: 10*3/?L. The reference range was not used to interpret this result as normal/abnormal. GRAN MAT (NEUT) % (test code = 770-8) 40.4 % IMM GRAN % (test code = 3303924866) 0.10 % LYMPH % (test code = 736-9) 45.5 % MONO % (test code = 5905-5) 9.0 % EOS % (test code = 713-8) 4.5 % BASO % (test code = 706-2) 0.5 % GRAN MAT x10^3(ANC) (test code = 1322095623) 3.16 10*3/uL 1.88-7.09 IMM GRAN x10^3 (test code = 3065106692) 0.00-0.06 LYMPH x10^3 (test code = 731-0) 3.55 10*3/uL 1.32-3.29 H MONO x10^3 (test code = 742-7) 0.70 10*3/uL 0.33-0.92 EOS x10^3 (test code = 711-2) 0.35 10*3/uL 0.03-0.39 BASO x10^3 (test code = 704-7) 0.04 10*3/uL 0.01-0.07 Lab Interpretation (test code = 11333-5) [facility] [id number] 05:07:00* Test Item Value Reference Range Interpretation Comme nts POCT PREG (test code = 1605) Negative On board controls acceptable with C Line (test code = 3574) Yes POCT PREG LOT # (test code = 3575) [id number] POCT PREG TEST DATE ( test code = 3576) 10/17/2024 Lab Interpretation (test cod e = 10474-1) [facility], THINPREP, [id number] 18:32:20 * Test Item Value Reference Range Interpretation Comme nts SOURCE: (test code = 8001) Cervical SLIDES: (test code = 8011) 1 LMP: (test code = 8021) 05/17/2023 SPECIMEN ADEQUACY: (test code = 59811) (NOTE) Satisfactory for evaluation. Endocervical cells/transformation zone component present. INTERPRETATION: (test code = 05693) ASCUS/EPITH. ABNORMALITY; SEE BELOW A - ------- EPITHELIAL CELL ABNORMALITY Atypical squamous cells of undetermined significance (ASC-US) OTHER COMMENTS: (test code = 8081) (NOTE) Trichomonas v aginalis present. COPY HOLDER: (test code = 8101) TIERA Mcgee(ASC P) PATHOLOGIST INTERPRETATION BY: (test code = 8122) Joana Luna DO LOCATION: (test code = 52494) (NOTE) Specimens proces sed and interpreted at [facility] , [address] [place] [address], , CLIA: [id number] CPT: (test code = 8140) (NOTE) 17094, 30475 UNL ESS OTHERWISE INDICATED, COMPUTER AIDED AND COPY HOLDER SCREENING PERFORMED. The Pap test is a screening test with an inherent, but low probability of error. Your patient should be reminded to consult you immediately if she experiences any suspicious signs or symptoms, regardless of her Pap test result. An alternate report format containing images or consolidated prior Pap history is available as applicable. PAP TEST, THINPREP, [id number] 00:00:00* Test Item Value Reference Range Interpretation Comme nts SOURCE: (test code = 8001) Cervical SLIDES: (test code = 8011) 1 LMP: (test code = 8021) 05/17/2023 SPECIMEN ADEQUACY: (test code = 12786) (NOTE) INTERPRETATION: (test code = 01745) ASCUS/EPITH. ABNORMALITY; SEE BELOW OTHER COMMENTS: (test code = 8081) (NOTE) COPY HOLDER: (test code = 8101) TIERA Mcgee(ASCP) PATHOLOGIST INTERPRETATION BY: (test code = 8122) Joana Luna DO LOCATION: (test code = 27464) (NOTE) CPT: (test code = 8140) (NOTE) Darryl WaggonerANGELESYuri TEST, THINPREP, [id number] 00:00:00* Test Item Value Reference Range Interpretation Comme nts SOURCE: (test code = 8001) Cervical SLIDES: (test code = 8011) 1 LMP: (test code = 8021) 05/17/2023 SPECIMEN ADEQUACY: (test code = 87885) (NOTE) INTERPRETATION: (test code = 74961) ASCUS/EPITH. ABNORMALITY; SEE BELOW OTHER COMMENTS: (test code = 8081) (NOTE) COPY HOLDER: (test code = 8101) TIERA Mcgee(ASCP) PATHOLOGIST INTERPRETATION BY: (test code = 8122) Joana Luna DO LOCATION: (test code = 71709) (NOTE) CPT: (test code = 8140) (NOTE) Darryl Tyron Chris TEST, THINPREP, [id number] 00:00:00* Test Item Value Reference Range Interpretation Comme nts SOURCE: (test code = 8001) Cervical SLIDES: (test code = 8011) 1 LMP: (test code = 8021) 05/17/2023 SPECIMEN ADEQUACY: (test code = 53226) (NOTE) INTERPRETATION: (test code = 65198) ASCUS/EPITH. ABNORMALITY; SEE BELOW OTHER COMMENTS: (test code = 8081) (NOTE) COPY HOLDER: (test code = 8101) TIERA Mcgee(ASCP) PATHOLOGIST INTERPRETATION BY: (test code = 8122) Joana Luna DO LOCATION: (test code = 24270) (NOTE) CPT: (test code = 8140) (NOTE) Darryl WaggonerANGELESP TEST, THINPREP, [id number] 00:00:00* Test Item Value Reference Range Interpretation Comme nts SOURCE: (test code = 8001) Cervical SLIDES: (test code = 8011) 1 LMP: (test code = 8021) 05/17/2023 SPECIMEN ADEQUACY: (test code = 94268) (NOTE) INTERPRETATION: (test code = 67462) ASCUS/EPITH. ABNORMALITY; SEE BELOW OTHER COMMENTS: (test code = 8081) (NOTE) COPY HOLDER: (test code = 8101) TIERA Mcgee(ASCP) PATHOLOGIST INTERPRETATION BY: (test code = 8122) Joana Luna DO LOCATION: (test code = 97575) (NOTE) CPT: (test code = 8140) (NOTE) Darryl Tyron AbbeP TEST, THINPREP, [id number] 00:00:00* Test Item Value Reference Range Interpretation Comme nts SOURCE: (test code = 8001) Cervical SLIDES: (test code = 8011) 1 LMP: (test code = 8021) 05/17/2023 SPECIMEN ADEQUACY: (test code = 14371) (NOTE) INTERPRETATION: (test code = 94323) ASCUS/EPITH. ABNORMALITY; SEE BELOW OTHER COMMENTS: (test code = 8081) (NOTE) COPY HOLDER: (test code = 8101) TIERA Mcgee(ASCP) PATHOLOGIST INTERPRETATION BY: (test code = 8122) Joana Luna DO LOCATION: (test code = 98532) (NOTE) CPT: (test code = 8140) (NOTE) Darryl Tyron AbbeP TEST, THINPREP, [id number] 00:00:00* Test Item Value Reference Range Interpretation Comme nts SOURCE: (test code = 8001) Cervical SLIDES: (test code = 8011) 1 LMP: (test code = 8021) 05/17/2023 SPECIMEN ADEQUACY: (test code = 93099) (NOTE) INTERPRETATION: (test code = 15719) ASCUS/EPITH. ABNORMALITY; SEE BELOW OTHER COMMENTS: (test code = 8081) (NOTE) COPY HOLDER: (test code = 8101) TIERA Mcgee(ASCP) PATHOLOGIST INTERPRETATION BY: (test code = 8122) Joana Luna DO LOCATION: (test code = 79368) (NOTE) CPT: (test code = 8140) (NOTE) Darryl Tyron AbbeP TEST, THINPREP, [id number] 00:00:00* Test Item Value Reference Range Interpretation Comme nts SOURCE: (test code = 8001) Cervical SLIDES: (test code = 8011) 1 LMP: (test code = 8021) 05/17/2023 SPECIMEN ADEQUACY: (test code = 73125) (NOTE) INTERPRETATION: (test code = 91053) ASCUS/EPITH. ABNORMALITY; SEE BELOW OTHER COMMENTS: (test code = 8081) (NOTE) COPY HOLDER: (test code = 8101) TIERA Mcgee(ASCP) PATHOLOGIST INTERPRETATION BY: (test code = 8122) Joana Luna DO LOCATION: (test code = 06860) (NOTE) CPT: (test code = 8140) (NOTE) Darryl WaggonerPAP TEST, THINPREP, [id number] 00:00:00* Test Item Value Reference Range Interpretation Comme nts SOURCE: (test code = 8001) Cervical SLIDES: (test code = 8011) 1 LMP: (test code = 8021) 05/17/2023 SPECIMEN ADEQUACY: (test code = 10412) (NOTE) INTERPRETATION: (test code = 92184) ASCUS/EPITH. ABNORMALITY; SEE BELOW OTHER COMMENTS: (test code = 8081) (NOTE) COPY HOLDER: (test code = 8101) TIERA Mcgee(ASCP) PATHOLOGIST INTERPRETATION BY: (test code = 8122) Joana Luna DO LOCATION: (test code = 04736) (NOTE) CPT: (test code = 8140) (NOTE) Darryl Tyron AbbeP TEST, THINPREP, [id number] 00:00:00* Test Item Value Reference Range Interpretation Comme nts SOURCE: (test code = 8001) Cervical SLIDES: (test code = 8011) 1 LMP: (test code = 8021) 05/17/2023 SPECIMEN ADEQUACY: (test code = 04999) (NOTE) INTERPRETATION: (test code = 08984) ASCUS/EPITH. ABNORMALITY; SEE BELOW OTHER COMMENTS: (test code = 8081) (NOTE) COPY HOLDER: (test code = 8101) TIERA Mcgee(ASCP) PATHOLOGIST INTERPRETATION BY: (test code = 8122) Joana Luna DO LOCATION: (test code = 13663) (NOTE) CPT: (test code = 8140) (NOTE) Darryl WaggonerCT/NG, NAAT, [id number] 20:10:21* Test Item Value Reference Range Interpretation Comme nts CHLAMYDIA, NAAT, URINE (test code = 05266) POSITIVE NEGATIVE A Testing is perfo rmed with Lucie HARRY 6800/8800 systems usingreal-time polymerase chain reaction (PCR) method. GONORRHEA, NAAT, URINE (test code = 24211) NEGATIVE NEGATIVE Testing is perfo rmed with Lucie HARRY 6800/8800 systems usingreal-time polymerase chain reaction (PCR) method. A negative result does not exclude low level infection, specimensampling error, or collection error. UNLESS OTHERWISE INDICATED, ALL TESTING PERFORMED AT [facility] [address] [place] [address] VIDEO PRODUCTION ENGINEER: ANIBAL PAREDES M.D. CLIA NUMBER [id number] [place]. [id number] HPV HIGH RISK WITH GENOTYPE, [id number] 17:33:46* Test Item Value Reference Range Interpretation Comme nts HPV HIGH RISK INTERP (test code = 99190) POSITIVE NEGATIVE A HPV 16 (test code = 18598) POSITIVE A HPV 18 (test code = 78370) NEGATIVE HPV, HR, OTHER GENOTYPES (test code = 86056) NEGATIVE Testing methodol ogy is real-time PCR [...] TESTING PERFORMED AT [facility] [address] [place] [address] VIDEO PRODUCTION ENGINEER: ANIBAL PAREDES M.D. CLIA NUMBER [id number] [place]. [id number] VAGINAL PATHOGENS DNA [id number] 16:55:18* Test Item Value Reference Range Interpretation Comme nts JAZ SPECIES (test code = 18169) NEGATIVE NEGATIVE G. VAGINALIS (test code = 04450) NEGATIVE NEGATIVE T. VAGINALIS (test code = 85850) NEGATIVE NEGATIVE Note: [facility] VPIII Microbial Identification Testis a DNA probe test intended for use in the detectionand identification of Jaz species, Gardnerellavaginalis and Trichomonas vaginalis nucleic acid. UNLESS OTHERWISE INDICATED, ALL TESTING PERFORMED AT [facility] [address] [place] [address] VIDEO PRODUCTION ENGINEER: ANIBAL PAREDES M.D. IA NUMBER [id number] [facility]. [id number] RPR REFLEX TO T. PALLIDUM - [id number] 08:07:41* Test Item Value Reference Range Interpretation Comme nts RPR (test code = 39998) NON-REACTIVE NON-REACTIVE RPR TITER (test code = 3500) NOT INDIC. TITER NOT INDIC. HIV 1/2 4TH GEN, RFLX [id number] 05:24:44* Test Item Value Reference Range Interpretation Comme nts HIV 1/2 4TH GEN, RFLX CONF ( test code = 3514) NON-REACTIVE NON-REACTIVE HPV HIGH RISK WITH GENOTYPE, [id number] 00:00:00* Test Item Value Reference Range Interpretation Comme nts HPV HIGH RISK INTERP (test c ode = 18764) POSITIVE HPV 16 (test code = 50250) POSITIVE HPV 18 (test code = 66087) NEGATIVE HPV, HR, OTHER GENOTYPES (te st code = 13797) NEGATIVE PDFE (test code = PDFReport) PDF Darryl Ackerman AustinRPR REFLEX TO T. PALLIDUM - [id number] 00:00:00* Test Item Value Reference Range Interpretation Comme nts RPR (test code = 12488) NON-REACTIVE RPR TITER (test code = 3500) NOT INDIC. TITER Darryl Ackerman AustinCT/NG, TMA, [id number] 00:00:00* Test Item Value Reference Range Interpretation Comme nts CHLAMYDIA, NAAT, URINE (test code = 35911) POSITIVE GONORRHEA, NAAT, URINE (test code = 08141) NEGATIVE Darryl F AustinHIV 1/2 4TH GEN, RFLX [id number] 00:00:00* Test Item Value Reference Range Interpretation Comme nts HIV 1/2 4TH GEN, RFLX CONF ( test code = 3514) NON-REACTIVE Darryl Ackerman AustinVAGINAL PATHOGENS DNA [id number] 00:00:00* Test Item Value Reference Range Interpretation Comme nts JAZ SPECIES (test code = ) NEGATIVE G. VAGINALIS (test code = 27542) NEGATIVE T. VAGINALIS (test code = 89163) NEGATIVE Darryl Ackerman AustinRPR REFLEX TO T. PALLIDUM - [id number] 00:00:00* Test Item Value Reference Range Interpretation Comme nts RPR (test code = 38330) NON-REACTIVE RPR TITER (test code = 3500) NOT INDIC. TITER Darryl Ackerman AustinHPV HIGH RISK WITH GENOTYPE, [id number] 00:00:00* Test Item Value Reference Range Interpretation Comme nts HPV HIGH RISK INTERP (test c ode = 16557) POSITIVE HPV 16 (test code = 03652) POSITIVE HPV 18 (test code = 64070) NEGATIVE HPV, HR, OTHER GENOTYPES (te st code = 69891) NEGATIVE PDFE (test code = PDFReport) PDF Darryl Ackerman AustinCT/NG, TMA, [id number] 00:00:00* Test Item Value Reference Range Interpretation Comme nts CHLAMYDIA, NAAT, URINE (test code = 29285) POSITIVE GONORRHEA, NAAT, URINE (test code = 30728) NEGATIVE Darryl Ackerman AustinHIV 1/2 4TH GEN, RFLX [id number] 00:00:00* Test Item Value Reference Range Interpretation Comme nts HIV 1/2 4TH GEN, RFLX CONF ( test code = 3514) NON-REACTIVE Darryl WaggonerVAGINAL PATHOGENS DNA [id number] 00:00:00* Test Item Value Reference Range Interpretation Comme nts JAZ SPECIES (test code = ) NEGATIVE G. VAGINALIS (test code = 50500) NEGATIVE T. VAGINALIS (test code = 95777) NEGATIVE Darryl Ackerman AustinHPV HIGH RISK WITH GENOTYPE, [id number] 00:00:00* Test Item Value Reference Range Interpretation Comme nts HPV HIGH RISK INTERP (test c ode = 52719) POSITIVE HPV 16 (test code = 60783) POSITIVE HPV 18 (test code = 52853) NEGATIVE HPV, HR, OTHER GENOTYPES (te st code = 79655) NEGATIVE PDFE (test code = PDFReport) PDF Darryl Ackerman AustinRPR REFLEX TO T. PALLIDUM - [id number] 00:00:00* Test Item Value Reference Range Interpretation Comme nts RPR (test code = 09146) NON-REACTIVE RPR TITER (test code = 3500) NOT INDIC. TITER Darryl Ackerman AustinCT/NG, TMA, [id number] 00:00:00* Test Item Value Reference Range Interpretation Comme nts CHLAMYDIA, NAAT, URINE (test code = 16087) POSITIVE GONORRHEA, NAAT, URINE (test code = 01065) NEGATIVE Darryl Ackerman AustinHIV 1/2 4TH GEN, RFLX [id number] 00:00:00* Test Item Value Reference Range Interpretation Comme nts HIV 1/2 4TH GEN, RFLX CONF ( test code = 3514) NON-REACTIVE Darryl Ackerman AustinVAGINAL PATHOGENS DNA [id number] 00:00:00* Test Item Value Reference Range Interpretation Comme nts JAZ SPECIES (test code = 92052) NEGATIVE G. VAGINALIS (test code = 83804) NEGATIVE T. VAGINALIS (test code = 59449) NEGATIVE Darryl Ackerman AustinHPV HIGH RISK WITH GENOTYPE, [id number] 00:00:00* Test Item Value Reference Range Interpretation Comme nts HPV HIGH RISK INTERP (test c ode = 25965) POSITIVE HPV 16 (test code = 03492) POSITIVE HPV 18 (test code = 83220) NEGATIVE HPV, HR, OTHER GENOTYPES (te st code = 99673) NEGATIVE PDFE (test code = PDFReport) PDF Darryl Ackerman AustinRPR REFLEX TO T. PALLIDUM - [id number] 00:00:00* Test Item Value Reference Range Interpretation Comme nts RPR (test code = 75490) NON-REACTIVE RPR TITER (test code = 3500) NOT INDIC. TITER Darryl Ackerman AustinCT/NG, TMA, [id number] 00:00:00* Test Item Value Reference Range Interpretation Comme nts CHLAMYDIA, NAAT, URINE (test code = 59387) POSITIVE GONORRHEA, NAAT, URINE (test code = 96724) NEGATIVE Darryl Ackerman AustinHIV 1/2 4TH GEN, RFLX [id number] 00:00:00* Test Item Value Reference Range Interpretation Comme nts HIV 1/2 4TH GEN, RFLX CONF ( test code = 3514) NON-REACTIVE Darryl Ackerman AustinVAGINAL PATHOGENS DNA [id number] 00:00:00* Test Item Value Reference Range Interpretation Comme nts JAZ SPECIES (test code = ) NEGATIVE G. VAGINALIS (test code = 23413) NEGATIVE T. VAGINALIS (test code = 39704) NEGATIVE Darryl Ackerman AustinRPR REFLEX TO T. PALLIDUM - [id number] 00:00:00* Test Item Value Reference Range Interpretation Comme nts RPR (test code = 60158) NON-REACTIVE RPR TITER (test code = 3500) NOT INDIC. TITER Darryl Ackerman AustinHPV HIGH RISK WITH GENOTYPE, [id number] 00:00:00* Test Item Value Reference Range Interpretation Comme nts HPV HIGH RISK INTERP (test c ode = 52446) POSITIVE HPV 16 (test code = 17792) POSITIVE HPV 18 (test code = 69152) NEGATIVE HPV, HR, OTHER GENOTYPES (te st code = 05719) NEGATIVE PDFE (test code = PDFReport) PDF Darryl Ackerman AustinCT/NG, TMA, [id number] 00:00:00* Test Item Value Reference Range Interpretation Comme nts CHLAMYDIA, NAAT, URINE (test code = 09503) POSITIVE GONORRHEA, NAAT, URINE (test code = 47364) NEGATIVE Darryl Ackerman AustinHIV 1/2 4TH GEN, RFLX [id number] 00:00:00* Test Item Value Reference Range Interpretation Comme nts HIV 1/2 4TH GEN, RFLX CONF ( test code = 3514) NON-REACTIVE Darryl WaggonerVAGINAL PATHOGENS DNA [id number] 00:00:00* Test Item Value Reference Range Interpretation Comme nts JAZ SPECIES (test code = ) NEGATIVE G. VAGINALIS (test code = 20429) NEGATIVE T. VAGINALIS (test code = 38796) NEGATIVE Darryl Ackerman AustinRPR REFLEX TO T. PALLIDUM - [id number] 00:00:00* Test Item Value Reference Range Interpretation Comme nts RPR (test code = 32712) NON-REACTIVE RPR TITER (test code = 3500) NOT INDIC. TITER Darryl Ackerman AustinHPV HIGH RISK WITH GENOTYPE, [id number] 00:00:00* Test Item Value Reference Range Interpretation Comme nts HPV HIGH RISK INTERP (test c ode = 11094) POSITIVE HPV 16 (test code = 90043) POSITIVE HPV 18 (test code = 99128) NEGATIVE HPV, HR, OTHER GENOTYPES (te st code = 81199) NEGATIVE PDFE (test code = PDFReport) PDF Darryl Ackerman AustinCT/NG, TMA, [id number] 00:00:00* Test Item Value Reference Range Interpretation Comme nts CHLAMYDIA, NAAT, URINE (test code = 26091) POSITIVE GONORRHEA, NAAT, URINE (test code = 66220) NEGATIVE Darryl Ackerman AustinVAGINAL PATHOGENS DNA [id number] 00:00:00* Test Item Value Reference Range Interpretation Comme nts JAZ SPECIES (test code = ) NEGATIVE G. VAGINALIS (test code = 91811) NEGATIVE T. VAGINALIS (test code = 64079) NEGATIVE Darryl Ackerman AustinHIV 1/2 4TH GEN, RFLX [id number] 00:00:00* Test Item Value Reference Range Interpretation Comme nts HIV 1/2 4TH GEN, RFLX CONF ( test code = 3514) NON-REACTIVE Darryl Ackerman AustinRPR REFLEX TO T. PALLIDUM - [id number] 00:00:00* Test Item Value Reference Range Interpretation Comme nts RPR (test code = 45812) NON-REACTIVE RPR TITER (test code = 3500) NOT INDIC. TITER Darryl Ackerman AustinHPV HIGH RISK WITH GENOTYPE, [id number] 00:00:00* Test Item Value Reference Range Interpretation Comme nts HPV HIGH RISK INTERP (test c ode = 44325) POSITIVE HPV 16 (test code = 83577) POSITIVE HPV 18 (test code = 41265) NEGATIVE HPV, HR, OTHER GENOTYPES (te st code = 72949) NEGATIVE PDFE (test code = PDFReport) PDF Darryl Ackerman AustinCT/NG, TMA, [id number] 00:00:00* Test Item Value Reference Range Interpretation Comme nts CHLAMYDIA, NAAT, URINE (test code = 48887) POSITIVE GONORRHEA, NAAT, URINE (test code = 44915) NEGATIVE Darryl Ackerman AustinVAGINAL PATHOGENS DNA [id number] 00:00:00* Test Item Value Reference Range Interpretation Comme nts JAZ SPECIES (test code = 81876) NEGATIVE G. VAGINALIS (test code = 08739) NEGATIVE T. VAGINALIS (test code = 01629) NEGATIVE Darryl Ackerman AustinHIV 1/2 4TH GEN, RFLX [id number] 00:00:00* Test Item Value Reference Range Interpretation Comme nts HIV 1/2 4TH GEN, RFLX CONF ( test code = 3514) NON-REACTIVE Darryl Ackerman AustinRPR REFLEX TO T. PALLIDUM - [id number] 00:00:00* Test Item Value Reference Range Interpretation Comme nts RPR (test code = 71101) NON-REACTIVE RPR TITER (test code = 3500) NOT INDIC. TITER Darryl Ackerman AustinHPV HIGH RISK WITH GENOTYPE, [id number] 00:00:00* Test Item Value Reference Range Interpretation Comme nts HPV HIGH RISK INTERP (test c ode = 24454) POSITIVE HPV 16 (test code = 09222) POSITIVE HPV 18 (test code = 21781) NEGATIVE HPV, HR, OTHER GENOTYPES (te st code = 70475) NEGATIVE PDFE (test code = PDFReport) PDF Darryl Ackerman AustinCT/NG, TMA, [id number] 00:00:00* Test Item Value Reference Range Interpretation Comme nts CHLAMYDIA, NAAT, URINE (test code = 47949) POSITIVE GONORRHEA, NAAT, URINE (test code = 62400) NEGATIVE Darryl Ackerman AustinHIV 1/2 4TH GEN, RFLX [id number] 00:00:00* Test Item Value Reference Range Interpretation Comme nts HIV 1/2 4TH GEN, RFLX CONF ( test code = 3514) NON-REACTIVE Darryl Ackerman AustinVAGINAL PATHOGENS DNA [id number] 00:00:00* Test Item Value Reference Range Interpretation Comme nts JAZ SPECIES (test code = 82131) NEGATIVE G. VAGINALIS (test code = 23654) NEGATIVE T. VAGINALIS (test code = 75074) NEGATIVE Darryl Ackerman AustinRPR REFLEX TO T. PALLIDUM - [id number] 00:00:00* Test Item Value Reference Range Interpretation Comme nts RPR (test code = 01889) NON-REACTIVE RPR TITER (test code = 3500) NOT INDIC. TITER Darryl Ackerman AustinHPV HIGH RISK WITH GENOTYPE, [id number] 00:00:00* Test Item Value Reference Range Interpretation Comme nts HPV HIGH RISK INTERP (test c ode = 27007) POSITIVE HPV 16 (test code = 84924) POSITIVE HPV 18 (test code = 74711) NEGATIVE HPV, HR, OTHER GENOTYPES (te st code = 37886) NEGATIVE PDFE (test code = PDFReport) PDF Darryl WaggonerCT/NG, TMA, [id number] 00:00:00* Test Item Value Reference Range Interpretation Comme nts CHLAMYDIA, NAAT, URINE (test code = 57466) POSITIVE GONORRHEA, NAAT, URINE (test code = 32242) NEGATIVE Darryl WaggonerHIV 1/2 4TH GEN, RFLX [id number] 00:00:00* Test Item Value Reference Range Interpretation Comme nts HIV 1/2 4TH GEN, RFLX CONF ( test code = 3514) NON-REACTIVE Darryl WaggonerVAGINAL PATHOGENS DNA [id number] 00:00:00* Test Item Value Reference Range Interpretation Comme nts JAZ SPECIES (test code = 62178) NEGATIVE G. VAGINALIS (test code = 91115) NEGATIVE T. VAGINALIS (test code = 37822) NEGATIVE Darryl WaggonerCOMP. METABOLIC PANEL ([id number] 07:12:09* Test Item Value Reference Range Interpretation Comme nts NA (test code = 3041298965) 138 mmol/L 135-145 K (test code = 0101623327) 3.6 mmol/L 3.5-5.0 CL (test code = 8476710981) 105 mmol/L 98-108 CO2 TOTAL (test code = 0154446594) 24 mmol/L 23-31 AGAP (test code = 4963648632) 9 2-16 BUN (test code = 1436714104) 8 mg/dL 7-23 GLUCOSE (test code = 9881593555) 94 mg/dL 70-110 CREATININE (test code = 2001403855) 0.90 mg/dL 0.50-1.04 TOTAL BILI (test code = 1000535280) 0.5 mg/dL 0.1-1.1 CALCIUM (test code = 4637719802) 9.2 mg/dL 8.6-10.6 T PROTEIN (test code = 7060982777) 7.8 g/dL 6.3-8.2 ALBUMIN (test code = 4558288702) 4.3 g/dL 3.5-5.0 ALK PHOS (test code = 7120173827) 91 U/L 34-122 ALTv (test code = 1742-6) 32 U/L 5-35 AST(SGOT) (test code = 0381946787) 48 U/L 13-40 H eGFR (test code = 4574294945) 73.0 mL/min/1.73m2 ELIA (test code = ELIA) [...] imaging tests). Lab Interpretation (test code = 71253-7) Abnormal [facility] WITH [id number] 06:45:45* Test Item Value Reference Range Interpretation Comme nts WBC (test code = 6690-2) 7.78 See_Comment [Automated Mapori] The system which generated this result transmitted [...] g/dL 31.6-35.1 L RDW-SD (test code = 55764-0) 49.8 fL 39.0-49.9 RDW-CV (test code = 788-0) 18.3 % 12.0-15.5 H PLT (test code = 777-3) 391 See_Comment H [Automated messa ge] The system which generated this result transmitted reference range: 166 - 358 10*3/?L. The reference range was not used to interpret this result as normal/abnormal. MPV (test code = 36796-4) 10.3 fL 9.5-12.9 NRBC/100 WBC (test code = 9155325505) 0.0 See_Comment [Automated DivX ssage] The system which generated this result transmitted reference range: 0.0 - 10.0 /100 WBCs. The reference range was not used to interpret this result as normal/abnormal. NRBC x10^3 (test code = 7887005157) See_Comment [Automated Performance Laba ge] The system which generated this result transmitted reference range: 10*3/?L. The reference range was not used to interpret this result as normal/abnormal. GRAN MAT (NEUT) % (test code = 770-8) 47.8 % IMM GRAN % (test code = 1413416412) 0.30 % LYMPH % (test code = 736-9) 39.1 % MONO % (test code = 5905-5) 8.5 % EOS % (test code = 713-8) 3.5 % BASO % (test code = 706-2) 0.8 % GRAN MAT x10^3(ANC) (test code = 0098507422) 3.73 10*3/uL 1.88-7.09 IMM GRAN x10^3 (test code = 0284553136) 0.00-0.06 LYMPH x10^3 (test code = 731-0) 3.04 10*3/uL 1.32-3.29 MONO x10^3 (test code = 742-7) 0.66 10*3/uL 0.33-0.92 EOS x10^3 (test code = 711-2) 0.27 10*3/uL 0.03-0.39 BASO x10^3 (test code = 704-7) 0.06 10*3/uL 0.01-0.07 Lab Interpretation (test code = 37093-9) Abnormal [facility] [id number] 06:40:00* Test Item Value Reference Range Interpretation Comme nts POCT PREG (test code = 1605) Negative On board controls acceptable with C Line (test code = 3574) Yes POCT PREG LOT # (test code = 3575) [id number] POCT PREG TEST DATE ( test code = 3576) 10/17/2024 Lab Interpretation (test cod e = 55287-7) Normal [facility] [id number] 06:17:00* Test Item Value Reference Range Interpretation Comme nts POCT PREG (test code = 1605) Negative On board controls acceptable with C Line (test code = 3574) Present POCT PREG LOT # (test code = 3575) [id number] POCT PREG TEST DATE ( test code = 3576) Lab Interpretation (test cod e = 30728-8) Normal [facility] [id number] 18:58:00* Test Item Value Reference Range Interpretation Comme nts POCT PREG (test code = 1605) negative Lab Interpretation (test cod e = 27791-0) Normal [facility] WITH [id number] 13:14:57* Test Item Value Reference Range Interpretation [...] g/dL 31.6-35.1 L RDW-SD (test code = 83671-8) 46.2 fL 39-49.9 RDW-CV (test code = 788-0) 17.0 % 12-15.5 H PLT (test code = 777-3) See_Comment H [Automated messa ge] The system which generated this result transmitted reference range: 166 - 358 10*3/?L. The reference range was not used to interpret this result as normal/abnormal. MPV (test code = 87134-8) 9.1 fL 9.5-12.9 L NRBC/100 WBC (test code = 5154346407) See_Comment [Automated DivX ssage] The system which generated this result transmitted reference range: 0.0 - 10.0 /100 WBCs. The reference range was not used to interpret this result as normal/abnormal. NRBC x10^3 (test code = 3752148891) See_Comment [Automated messa ge] The system which generated this result transmitted reference range: 10*3/?L. The reference range was not used to interpret this result as normal/abnormal. GRAN MAT (NEUT) % (test code = 770-8) 51.3 % IMM GRAN % (test code = 4991121570) 0.40 % LYMPH % (test code = 736-9) 37.0 % MONO % (test code = 5905-5) 8.5 % EOS % (test code = 713-8) 2.2 % BASO % (test code = 706-2) 0.6 % GRAN MAT x10^3(ANC) (test code = 4458471834) 4.26 10*3/uL 1.88-7.09 IMM GRAN x10^3 (test code = 0073880612) 0.03 10*3/uL 0-0.06 LYMPH x10^3 (test code = 731-0) 3.06 10*3/uL 1.32-3.29 MONO x10^3 (test code = 742-7) 0.70 10*3/uL 0.33-0.92 EOS x10^3 (test code = 711-2) 0.18 10*3/uL 0.03-0.39 BASO x10^3 (test code = 704-7) 0.05 10*3/uL 0.01-0.07 Lab Interpretation (test code = 07407-1) Abnormal [facility] [id number] 12:55:00* Test Item Value Reference Range Interpretation Comme nts POCT PREG (test code = 1605) negative On board controls acceptable with C Line (test code = 3574) present Lab Interpretation (test cod e = 81910-6) Normal [facility] [id number] 20:49:00* Test Item Value Reference Range Interpretation Comme nts POCT PREG (test code = 1605) negative On board controls acceptable with C Line (test code = 3574) yes POCT PREG LOT # (test code = 3575) [id number] POCT PREG TEST DATE ( test code = 3576) 08/14/2023 Lab Interpretation (test cod e = 97179-6) [facility] [id number] 08:01:55* Test Item Value Reference Range Interpretation Comme nts NA (test code = 4440973038) 138 mmol/L 135-145 K (test code = 2727241430) 4.2 mmol/L 3.5-5 CL (test code = 5257156097) 107 mmol/L 98-108 CO2 TOTAL (test code = 7525376916) 20 mmol/L 23-31 L AGAP (test code = 6376048401) 2-16 BUN (test code = 6487086059) 10 mg/dL 7-23 GLUCOSE (test code = 7644510257) 105 mg/dL 70-110 CREATININE (test code = 7212133248) 0.86 mg/dL 0.5-1.04 TOTAL BILI (test code = 8561719178) 0.1-1.1 L CALCIUM (test code = 9267261679) 9.1 mg/dL 8.6-10.6 T PROTEIN (test code = 2516292010) 7.4 g/dL 6.3-8.2 ALBUMIN (test code = 5069447918) 4.8 g/dL 3.5-5 ALK PHOS (test code = 7841387153) 81 U/L 34-122 ALTv (test code = 1742-6) 17 U/L 5-35 AST(SGOT) (test code = 4333597084) 19 U/L 13-40 eGFR (test code = 4207739852) mL/min/1.73m2 ELIA (test code = ELIA) Association [...] imaging tests). Lab Interpretation (test code = 29700-0) [facility], [id number] 07:59:48* Test Item Value Reference Range Interpretation Comme nts LIPASE (test code = 0033001718) 94 U/L 0-220 Lab Interpretation (test cod e = 12759-4) [facility] with [id number] 07:47:29* Test Item Value Reference Range Interpretation Comme nts WBC (test code = 6690-2) See_Comment [Automated Performance Laba Boomrat] The system which generated this result transmitted reference range: 4.30 - 11.10 10*3/?L. The reference range was not used to interpret this result as normal/abnormal. RBC (test code = 789-8) See_Comment [Automated Performance Laba Boomrat] The system which generated this result transmitted [...] g/dL 31.6-35.1 L RDW-SD (test code = 39031-1) 40.2 fL 39-49.9 RDW-CV (test code = 788-0) 15.0 % 12-15.5 PLT (test code = 777-3) See_Comment [Automated Performance Laba Boomrat] The system which generated this result transmitted reference range: 166 - 358 10*3/?L. The reference range was not used to interpret this result as normal/abnormal. MPV (test code = 97421-3) 10.1 fL 9.5-12.9 NRBC/100 WBC (test code = 8733917309) See_Comment [Automated me ssage] The system which generated this result transmitted reference range: 0.0 - 10.0 /100 WBCs. The reference range was not used to interpret this result as normal/abnormal. NRBC x10^3 (test code = 9797450065) See_Comment [Automated messa ge] The system which generated this result transmitted reference range: 10*3/?L. The reference range was not used to interpret this result as normal/abnormal. GRAN MAT (NEUT) % (test code = 770-8) 46.6 % IMM GRAN % (test code = 1366710732) 0.40 % LYMPH % (test code = 736-9) 40.7 % MONO % (test code = 5905-5) 8.6 % EOS % (test code = 713-8) 3.3 % BASO % (test code = 706-2) 0.4 % GRAN MAT x10^3(ANC) (test code = 7201005860) 3.40 10*3/uL 1.88-7.09 IMM GRAN x10^3 (test code = 6609097847) 0.03 10*3/uL 0-0.06 LYMPH x10^3 (test code = 731-0) 2.97 10*3/uL 1.32-3.29 MONO x10^3 (test code = 742-7) 0.63 10*3/uL 0.33-0.92 EOS x10^3 (test code = 711-2) 0.24 10*3/uL 0.03-0.39 BASO x10^3 (test code = 704-7) 0.03 10*3/uL 0.01-0.07 Lab Interpretation (test code = 47558-8) [facility] [id number] 07:37:00* Test Item Value Reference Range Interpretation Comme nts POCT PREG (test code = 1605) Negative On board controls acceptable with C Line (test code = 3574) Present POCT PREG LOT # (test code = 3575) [id number] POCT PREG TEST DATE ( test code = 3576) 08/14/2023 Lab Interpretation (test cod e = 47180-1) Normal [facility] [id number] 22:19:00* Test Item Value Reference Range Interpretation Comme nts POCT PREG (test code = 1605) NEGATIVE On board controls acceptable with C Line (test code = 3574) present POCT PREG LOT # (test code = 3575) [id number] POCT PREG TEST DATE ( test code = 3576) 07/14/2023 Lab Interpretation (test cod e = 98911-0) [facility] [id number] 19:54:00* Test Item Value Reference Range Interpretation Comme nts POCT PREG (test code = 1605) negative On board controls acceptable with C Line (test code = 3574) present POCT PREG LOT # (test code = 3575) [id number] POCT PREG TEST DATE ( test code = 3576) 12/12/2022 Lab Interpretation (test cod e = 46396-9) [facility] 06:28:44* Test Item Value Reference Range Interpretation Comme nts FERRITIN (test code = 2075) 3 NG/ML 13-200 L [id number] 04:37:13* Test Item Value Reference Range Interpretation Comme nts TRANSFERRIN (test code = 4936) 385 MG/DL 200-360 H UNLESS OTHERWISE INDICATED, ALL TESTING PERFORMED [facility] [address] [place] [address] VIDEO PRODUCTION ENGINEER: NICOLE GUSMAN M.D. CLIA NUMBER [id number] [facility] [id number] IRON BINDING CAPACITY AND IRON AND % [id number] 04:19:01* Test Item Value Reference Range Interpretation Comme nts IRON, SERUM (test code = 2222) 11 UG/DL 37-145 L UNSATURATED IBC (test code = 90954) 442 UG/DL 112-347 H CALC TOTAL IBC (test code = 2077) 453 UG/DL 250-450 H CALC % IRON SAT (test code = 2079) 2 % 20-50 L IRON BINDING CAPACITY AND IRON AND % [id number] 00:00:00* Test Item Value Reference Range Interpretation Comme nts IRON, SERUM (test code = 2) 11 UG/DL UNSATURATED IBC (test code = 32881) 442 UG/DL CALC TOTAL IBC (test code = 7) 453 UG/DL CALC % IRON SAT (test code = 9) 2 % Darryl F [id number] 00:00:00* Test Item Value Reference Range Interpretation Comme nts FERRITIN (test code = 2074) 3 NG/ML Darryl F RtnpurYGAYLIMPDXM6051-09-05 00:00:00* Test Item Value Reference Range Interpretation Comme nts TRANSFERRIN (test code = 4936) 385 MG/DL Darryl F AustinIRON BINDING CAPACITY AND IRON AND % [id number] 00:00:00* Test Item Value Reference Range Interpretation Comme nts IRON, SERUM (test code = 2221) 11 UG/DL UNSATURATED IBC (test code = 47651) 442 UG/DL CALC TOTAL IBC (test code = 2076) 453 UG/DL CALC % IRON SAT (test code = 2078) 2 % Darryl F GrqicmRONFUZBZ8854-12-11 00:00:00* Test Item Value Reference Range Interpretation Comme nts FERRITIN (test code = 2074) 3 NG/ML Darryl F [id number] 00:00:00* Test Item Value Reference Range Interpretation Comme nts TRANSFERRIN (test code = 4936) 385 MG/DL Darryl F AustinIRON BINDING CAPACITY AND IRON AND % [id number] 00:00:00* Test Item Value Reference Range Interpretation Comme nts IRON, SERUM (test code = 2) 11 UG/DL UNSATURATED IBC (test code = 02778) 442 UG/DL CALC TOTAL IBC (test code = 7) 453 UG/DL CALC % IRON SAT (test code = 9) 2 % Darryl F XvoomsJNSQIQIY2628-52-13 00:00:00* Test Item Value Reference Range Interpretation Comme nts FERRITIN (test code = 2074) 3 NG/ML Darryl F [id number] 00:00:00* Test Item Value Reference Range Interpretation Comme nts TRANSFERRIN (test code = 4936) 385 MG/DL Darryl F AustinIRON BINDING CAPACITY AND IRON AND % [id number] 00:00:00* Test Item Value Reference Range Interpretation Comme nts IRON, SERUM (test code = 2) 11 UG/DL UNSATURATED IBC (test code = 66543) 442 UG/DL CALC TOTAL IBC (test code = 7) 453 UG/DL CALC % IRON SAT (test code = 9) 2 % Darryl F [id number] 00:00:00* Test Item Value Reference Range Interpretation Comme nts FERRITIN (test code = 5) 3 NG/ML Darryl F PghdjxNDXHIOHSXDW7558-05-24 00:00:00* Test Item Value Reference Range Interpretation Comme nts TRANSFERRIN (test code = 4936) 385 MG/DL Darryl F AustinIRON BINDING CAPACITY AND IRON AND % [id number] 00:00:00* Test Item Value Reference Range Interpretation Comme nts IRON, SERUM (test code = 2221) 11 UG/DL UNSATURATED IBC (test code = 62931) 442 UG/DL CALC TOTAL IBC (test code = 7) 453 UG/DL CALC % IRON SAT (test code = 9) 2 % Darryl F JfeeeeVISAMWBZ6934-17-03 00:00:00* Test Item Value Reference Range Interpretation Comme nts FERRITIN (test code = 2074) 3 NG/ML Darryl F [id number] 00:00:00* Test Item Value Reference Range Interpretation Comme nts TRANSFERRIN (test code = 4936) 385 MG/DL Darryl F AustinIRON BINDING CAPACITY AND IRON AND % [id number] 00:00:00* Test Item Value Reference Range Interpretation Comme nts IRON, SERUM (test code = 2) 11 UG/DL UNSATURATED IBC (test code = 13883) 442 UG/DL CALC TOTAL IBC (test code = 7) 453 UG/DL CALC % IRON SAT (test code = 9) 2 % Darryl F XeygefNIVJUZFL4052-72-48 00:00:00* Test Item Value Reference Range Interpretation Comme nts FERRITIN (test code = 5) 3 NG/ML Darryl F TffaywZTGDQRRAYPQ0454-02-23 00:00:00* Test Item Value Reference Range Interpretation Comme nts TRANSFERRIN (test code = 4936) 385 MG/DL Darryl F AustinIRON BINDING CAPACITY AND IRON AND % [id number] 00:00:00* Test Item Value Reference Range Interpretation Comme nts IRON, SERUM (test code = 2222) 11 UG/DL UNSATURATED IBC (test code = 80797) 442 UG/DL CALC TOTAL IBC (test code = 7) 453 UG/DL CALC % IRON SAT (test code = 2079) 2 % Darryl F VnkabiKFYRRJMI3084-62-79 00:00:00* Test Item Value Reference Range Interpretation Comme nts FERRITIN (test code = 5) 3 NG/ML Darryl F [id number] 00:00:00* Test Item Value Reference Range Interpretation Comme nts TRANSFERRIN (test code = 4936) 385 MG/DL Darryl F AustinIRON BINDING CAPACITY AND IRON AND % [id number] 00:00:00* Test Item Value Reference Range Interpretation Comme nts IRON, SERUM (test code = 2222) 11 UG/DL UNSATURATED IBC (test code = 56678) 442 UG/DL CALC TOTAL IBC (test code = 7) 453 UG/DL CALC % IRON SAT (test code = 9) 2 % Darryl F [id number] 00:00:00* Test Item Value Reference Range Interpretation Comme nts FERRITIN (test code = 5) 3 NG/ML Darryl F [id number] 00:00:00* Test Item Value Reference Range Interpretation Comme nts TRANSFERRIN (test code = 4936) 385 MG/DL Darryl F AustinIRON BINDING CAPACITY AND IRON AND % [id number] 00:00:00* Test Item Value Reference Range Interpretation Comme nts IRON, SERUM (test code = 2222) 11 UG/DL UNSATURATED IBC (test code = 97124) 442 UG/DL CALC TOTAL IBC (test code = 7) 453 UG/DL CALC % IRON SAT (test code = 2079) 2 % Darryl F [id number] 00:00:00* Test Item Value Reference Range Interpretation Comme nts FERRITIN (test code = 5) 3 NG/ML Darryl F [id number] 00:00:00* Test Item Value Reference Range Interpretation Comme nts TRANSFERRIN (test code = 4936) 385 MG/DL Darryl F AustinIRON BINDING CAPACITY AND IRON AND % [id number] 00:00:00* Test Item Value Reference Range Interpretation Comme nts IRON, SERUM (test code = 2222) 11 UG/DL UNSATURATED IBC (test code = 10112) 442 UG/DL CALC TOTAL IBC (test code = 7) 453 UG/DL CALC % IRON SAT (test code = 9) 2 % [id number] 00:00:00* Test Item Value Reference Range Interpretation Comme nts FERRITIN (test code = 2075) 3 NG/ML [id number] 00:00:00* Test Item Value Reference Range Interpretation Comme nts TRANSFERRIN (test code = 4936) 385 MG/DL IRON BINDING CAPACITY AND IRON AND % [id number] 00:00:00* Test Item Value Reference Range Interpretation Comme nts IRON, SERUM (test code = 2222) 11 UG/DL UNSATURATED IBC (test code = 92835) 442 UG/DL CALC TOTAL IBC (test code = 7) 453 UG/DL CALC % IRON SAT (test code = 9) 2 % [id number] 00:00:00* Test Item Value Reference Range Interpretation Comme nts FERRITIN (test code = 5) 3 NG/ML [id number] 00:00:00* Test Item Value Reference Range Interpretation Comme nts TRANSFERRIN (test code = 4936) 385 MG/DL TSH, THIRD [id number] 06:15:03* Test Item Value Reference Range Interpretation Comme nts TSH, THIRD GENERATION (test code = 2821) 0.675 UIU/ML 0.400-4.100 UNLESS OTHERWISE INDICATED, ALL TESTING PERFORMED [facility] [address] [place] [address], [place] [address] VIDEO PRODUCTION ENGINEER: NICOLE GUSMAN M.D. CLIA NUMBER [id number] [place] [id number] CBC W/AUTO DIFF WITH [id number] 02:57:36* Test Item Value Reference Range Interpretation [...] 0.00-0.10 ABS NUCLEATED RBCS (test code = 51014) 0.00 K/UL 0.00-0.11 [id number] 00:00:00* Test Item Value Reference Range Interpretation Comme nts TSH, THIRD GENERATION (test code = 2821) 0.675 UIU/ML [facility]/AUTO [id number] 00:00:00* Test Item Value Reference Range Interpretation [...] ABS NUCLEATED RBCS (test cod e = 34116) 0.00 K/UL Darryl Ackerman [id number] 00:00:00* Test Item Value Reference Range Interpretation Comme nts TSH, THIRD GENERATION (test code = 2821) 0.675 UIU/ML Darryl Ackerman EdilsonCBC W/AUTO [id number] 00:00:00* Test Item Value Reference Range Interpretation [...] ABS NUCLEATED RBCS (test cod e = 89722) 0.00 K/UL Darryl Ackerman [id number] 00:00:00* Test Item Value Reference Range Interpretation Comme nts TSH, THIRD GENERATION (test code = 2821) 0.675 UIU/ML Darryl Ackerman EdilsonCBC W/AUTO [id number] 00:00:00* Test Item Value Reference Range Interpretation [...] ABS NUCLEATED RBCS (test cod e = 90295) 0.00 K/UL Darryl [id number] 00:00:00* Test Item Value Reference Range Interpretation Comme nts TSH, THIRD GENERATION (test code = 2821) 0.675 UIU/ML Darryl WaggonerCBC W/AUTO [id number] 00:00:00* Test Item Value Reference Range Interpretation [...] ABS NUCLEATED RBCS (test cod e = 69155) 0.00 K/UL Darryl WaggonerJdlfikDJD0649-12-41 00:00:00* Test Item Value Reference Range Interpretation Comme nts TSH, THIRD GENERATION (test code = 2821) 0.675 UIU/ML Darryl Ackerman AustinCBC W/AUTO [id number] 00:00:00* Test Item Value Reference Range Interpretation [...] ABS NUCLEATED RBCS (test cod e = 71259) 0.00 K/UL Darryl [id number] 00:00:00* Test Item Value Reference Range Interpretation Comme nts TSH, THIRD GENERATION (test code = 2821) 0.675 UIU/ML Darryl WaggonerCBC W/AUTO [id number] 00:00:00* Test Item Value Reference Range Interpretation [...] ABS NUCLEATED RBCS (test cod e = 91050) 0.00 K/UL Darryl WaggonerCaeeurQEZ8486-28-74 00:00:00* Test Item Value Reference Range Interpretation Comme nts TSH, THIRD GENERATION (test code = 2821) 0.675 UIU/ML Darryl WaggonerCBC W/AUTO [id number] 00:00:00* Test Item Value Reference Range Interpretation [...] ABS NUCLEATED RBCS (test cod e = 03668) 0.00 K/UL Darryl WaggonerMjtrfdPYJ6382-87-70 00:00:00* Test Item Value Reference Range Interpretation Comme nts TSH, THIRD GENERATION (test code = 2821) 0.675 UIU/ML Darryl WaggonerCBC W/AUTO [id number] 00:00:00* Test Item Value Reference Range Interpretation [...] ABS NUCLEATED RBCS (test cod e = 52277) 0.00 K/UL Darryl WaggonerYxspvyRXU9231-57-13 00:00:00* Test Item Value Reference Range Interpretation Comme nts TSH, THIRD GENERATION (test code = 2821) 0.675 UIU/ML Darryl WaggonerCBC W/AUTO [id number] 00:00:00* Test Item Value Reference Range Interpretation [...] ABS NUCLEATED RBCS (test cod e = 10191) 0.00 K/UL Darryl WaggonerCBC W/AUTO [id number] 00:00:00* Test Item Value Reference Range Interpretation [...] ABS NUCLEATED RBCS (test cod e = 90066) 0.00 K/UL [id number] 00:00:00* Test Item Value Reference Range Interpretation Comme nts TSH, THIRD GENERATION (test code = 2821) 0.675 UIU/ML CBC W/AUTO [id number] 00:00:00* Test Item Value Reference Range Interpretation [...] ABS NUCLEATED RBCS (test cod e = 38843) 0.00 K/UL [id number] 00:00:00* Test Item Value Reference Range Interpretation Comme nts TSH, THIRD GENERATION (test code = 2821) 0.675 UIU/ML Notes Date/Time Note Provider Source Darryl AckermanRisa [facility]2025-07-01 11:33:02 Patient given discharge instructions on abdominal pain. Given prescription X 1 for bentyl. Pt advised to follow up with pcp. Pt left ER ambulatory, no signs of distress. [facility]fc[facility]47[facility] 08:08:05 Patient states: "I do have GI issues, gastritis and esophagitis. I had to stop taking the meds because it caused my anemia to be worse. I have zofran and take that. I'm just having sharp stabbing pain." Reports pain started Sunday. [facility] - Baqkmb0710-35-24 07:58:00 [facility] Emergency Department Note Patient Name: Mini Zhu Date of : 1990 34 year old female Treatment Room: [facility] Primary Care Physician: Lorraine Blanco Patient Escorted [...] anemia. 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 METABOLIC PANEL (51065) - Abnormal NA 138 135 - 145 [...] contrast Cbc with Diff Comp. Metabolic Panel (33288) Lipase POCT Test Urinalysis Orders Placed This Encounter Medications ondansetron (ZOFRAN (PF)) injection 4 mg maalox/diphenhydrAMINE:lidocaine2 %viscous 1:1:1: suspension (COMPOUNDED) iopamidol (ISOVUE 370-500 [...] FNP Specialty: FAMILY MEDICINE Relationship: PCP - [place] [address] Instructions: For follow up of the presenting symptoms. [facility] Specialty: Emergency Medicine [address] [place] [address] Instructions: If symptoms worsen as documented in the discharge Electronically signed by: Hermilo Ricks DO 04/14/25 1109 [facility] - Jugvcu6099-94-95 02:45:01 Pt given printed and verbal discharge [...] steady gait, in no apparent distress, T [place] 894775-05-25 21:30:20 Pt arrived ambulatory without assist. Pt with her, okay to discuss care with him. Pt c/o migraine that started today and left ovary pain since Sunday. T Duyen Pereira [place] 113255-04-15 13:53:03 Pt given printed and verbal discharge [...] steady gait, in no apparent distress, T [place] 894775-04-15 12:24:45 Patient arrived ambulatory c/o headache that started approximately at midnight associated with vomiting and sensitivity to lights. Patient attempted to take ibuprofen when she vomited the medication. Patient has frequent headaches and diagnosed with chronic migraines. [facility] Celina Proctor [place] 113255-04-09 08:15:25 Pt has been scheduled Tanya VelascoM[facility] HospitalCrjjug4732-98-16 13:34:00 Mini Zhu is a 34 year old female Patient returning missed call to schedule PGY appointment. She states she did not have any voicemails. Please advise T [facility] HospitalJarvej2660-89-81 04:21:41 Awake, alert oriented X4, respiratory even [...] ambulated to the lobby with steady gait. Senia Narvaez [facility]Qidtwa0966-34-89 02:22:34 Cc: abdominal pain, N/V, and migraine began at 11PM 01/16 [facility] HospitalJynlaj4280-22-47 10:05:56 2nd attempt no answer Tanya VelascoLeah [place] 894775-04-03 12:25:21 1st attempt to contact pt, no answer T [facility] HospitalMorcpc9021-49-55 10:37:29 Mini Zhu is a 34 year old female Pt calling wanting to r/s her appt that was scheduled for 01/16/25. Please assist [phone] (home) [phone] (work) T [place] 894775-03-24 09:43:48 Pt given printed and verbal discharge [...] distress. Left with spouse. T Trista Coronel RNMarietta Memorial HospitalQxtsxv5406-04-85 09:27:55 [facility] ED Transfer of Care Note. [...] components within normal limits COMP. METABOLIC PANEL (63700) - Abnormal; Notable for the following components: [...] ED Disposition Discharge Condition Stable Comment -- Critical access hospital2025-03-24 08:39:35 Patient given ice water to po challenge [facility] Celina Proctor RNMarietta Memorial HospitalUqxdvb1897-61-23 07:05:00 Nurse Report Report received from LINA Martines. Chief complaint, assessment findings, and orders reviewed. Plan of care discussed with both nurses. Trista Coronel RN [facility] HospitalAttdck4160-37-73 05:35:15 Patient up using the bathroom, ambulated independently with a steady gait. Back to bed, on monitor, updated on plan of care. Call light within reach. Bobbi Siddiqi [facility]Cxxvqt5744-79-10 05:09:11 C/o cough, body aches, chills, vomiting, nausea, diarrhea x4 days Feels like she's been running a fever but has no thermometer T Jess Gonzalez [facility] WestRgreei6215-47-39 01:21:52 Awake, alert oriented X4, respiratory even [...] noted upon discharge Pt ambulated to the [facility] with steady gait [facility] Kait Seay [facility] WestYrlyxx8987-05-39 00:00:00 Darryl Arriaga [facility]2025-03-05 23:49:02 Patient arrived ambulatory to ED c/o right sided migraine that worsened tonight. Oral sx on 12/05, had three teeth taken out. Abx have been finished already. Vomited tonight and made her migraine worse. Patient states Zoan is not working anymore. [facility]2025-02-14 00:00:00 [facility] 00:00:00 [facility]2025-02-04 22:45:36 Pt given printed and verbal discharge [...] without assist, in no apparent distress, Durand [facility] WestXgskmt7403-51-80 20:59:33 CC: R sided jaw pain that radiates down her neck. Pain began at 9PM. Took Ibu 800mg at 2PM, applying warm/cold compress Patel [place] 113255-02-04 20:55:00 [facility] Emergency Department Note Patient Name: Mini Zhu Date of : 1990 33 year old female Treatment Room: [place] [address] Primary Care Physician: Rachelle [facility] Patient Escorted by: Family [5] Mode of Arrival: Personal means [1] EMS Treatment Prior to ED Arrival: POLICE DEPARTMENT SECRETARY treatment: Other (comment) POLICE DEPARTMENT SECRETARY treatment comments: See triage note Travel and [...] [facility] [place] for further management prompting ED visit. History provided by: Patient and medical records translator/interpreter used: No Dental Problem Location: Lower [place] [...] (eight) hours as needed for Alternate with [place] for pain scale 1-3. CONTINUE taking these medications which have NOT CHANGED ALBUTEROL 90 MCG/ACTUATION INHALER Inhale 2 Puffs every 4 (four) hours as needed for Wheezing or Shortness of Breath. AZITHROMYCIN (ZITHROMAX Z-RAMESH) 250 MG TABLET Take 2 tablets by mouth SEE-INSTRUCTIONS. Take 500 mg day 1, then 250 mg days 2 to 5. XZEVIPBRBP-DOOKGFVLVLOCO-AWIP 50-325-40 MG TABLET Take 1 tablet by mouth every 6 (six) hours as needed (Headache). OXCVZWNSGI-SFIYPCIZHTCCA-HOAJ 50-325-40 MG TABLET Take 1 tablet by [...] Electronically signed by: Selene Parra MD 11/18/242237 [place] 557765-01-25 22:45:36 ERP MSE patient [place] 557765-01-25 22:35:26 CC: tail bone pain, began today 5PM. Patient states she was horse playing, and got kneed on the tailbone. Patel [facility] - Cgugbg5796-36-25 00:00:00 [facility]2024-11-11 00:00:00 [facility]2024-10-11 10:46:00 Written/verbal D/c instructions, out of er no distress, [place] 575004-10-11 10:30:00 Pt has had no emesis since arrival [place] 9[address]-10-11 07:48:10 Mini Zhu is a 33 year old female c/o n/v/d since Sunday, states this morning at 0700 threw up blood, no abdominal pain, states now has a headache, alert cheerful, states hx gastritis, esophagitis and iron def anemia, ran out of pantoprazole and takes iron occasionally. States her bipolar meds aren't staying down either, [facility] Sheila Starkey [facility] WestRcsbsg4763-82-75 00:00:00 Darryl Arriaga [facility]2024-09-20 05:48:27 Discharge information given verbally and in writing, including of s/s of when to return to ER Patient denies questions and verbalized understanding. IV discontinued without issue. Pt ambulated off unit with steady gate, vital signs stable, no acute distress. [facility] Jovana Hooper RNLeah [place] 894774-09-20 02:26:00 Lower abd pain since midnight, and back pain, pt states she has shingles and has been using tropical cream for tx. [place] 575004-06-04 00:00:00 Darryl Arriaga [facility]2024-05-29 06:06:53 Pt given printed and [...] gait, in no apparent distress. Ashly Srivastava [facility] WestXchevw5678-97-92 02:07:22 Pt given urine cup and placed in the lobby, pt advice to notify nurse with any other concerns or if symptoms worsen. [facility] HospitalJqkped2171-17-87 02:02:32 C/O states that she began vomited blood X5 since midnight. 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 Kait Seay [facility] WestLebkwy1192-48-65 03:51:00 [facility] Emergency Department Note Patient Name: Mini Zhu Date of : 1990 33 year old female Treatment Room: [place] [address] Primary Care Physician: Rachelle Ackerman [facility] Patient Escorted by: Family [5] Mode of Arrival: Personal means [1] EMS Treatment Prior to ED Arrival: POLICE DEPARTMENT SECRETARY treatment: None Travel and Exposure Screening: Symptoms [...] by: Patient, medical records and significant other translator/interpreter used: No Abdominal Pain Pain location: Generalized [...] Lab Results: Lab Results COMP. METABOLIC PANEL (27594) - Abnormal Result Value Ref Range NA [...] then 250 mg days 2 to 5. LKUQYOEELM-JORZYUAEQAEGT-HVQX 50-325-40 MG TABLET Take 1 tablet by [...] follow-up Tommie Arita MD Specialty: IM-GASTROENTEROLOGY [facility] [id number] [id number] Electronically signed by: Selene Parra MD 02/03/24 0658 [facility] - Bmsjdc9133-32-69 00:43:46 Pt given printed and verbal discharge [...] leaving in no apparent distress, Ashly Gibson [facility] WestQehmvz4296-19-18 00:31:47 Pt notified covid test was inconclusive. She refuses additional covid swabbing. She reports continuing head congestion. Dr. Marie in to see pt at this time. [facility] HospitalMkmvzq4743-92-90 22:22:36 Pt arrived ambulatory with c/o congestion. Pt states I have bad congestion, sneezing, coughing and headache. No fever. I vomited once prior to coming to the ED." Duyen Pereira [facility] WestNdmsza5123-05-34 05:22:47 Awake, alert oriented X4, respiratory even [...] noted upon discharge Pt ambulated to the [facility] with steady gait Kait Seay [facility] WestHyiltq5931-02-47 03:48:35 Pt arrived with c/ migraine headache off-and-on for 7 days. Pt took Midol at 6:30pm. Pt report the Midol help for about 30 minutes then the headache came back. Pt states she has tried Ibu, tylenol, and naproxen but none of these medications have helped her migraine. Nicole Patel RNUT - Wshvip6993-06-08 03:43:00 [facility] Emergency Department Note Patient Name: Mini Zhu Date of : 1990 33 year old female Treatment Room: [address] Primary Care Physician: Rachelle Ackerman [facility] Patient Escorted by: Family [5] Mode of Arrival: Personal means [1] EMS Treatment Prior to ED Arrival: POLICE DEPARTMENT SECRETARY treatment: None Travel and Exposure Screening: Symptoms [...] History provided by: Patient and medical records translator/interpreter used: No Headache Pain location: Frontal Quality: [...] this encounter. Orders Placed This Encounter Medications vgflmuenfi-dhybylfwemgvp-eehq (ESGIC) 50-325-40 mg tablet 1 tablet First Provider Eval: ED Events Date/Time Event User Comments 12/26/23354 Medical Screening Begins SELENE PARRA MD -- 12/26/23354 First Provider Evaluation SELENE PARRA MD -- ED COURSE Diagnosis/Impression as of 12/26/23439 Headache disorder Procedures: Procedures MDM: Medical Decision [...] information for follow-up Darryl Ackerman [facility], [facility] Relationship: PCP - General [address] [place] [phone] Demetrio Stout MD Specialty: PN-NEUROLOGY [facility] [address] [place] [phone] Electronically signed by: Selene Parra MD 12/26/23439 Critical access hospital2024-02-06 10:50:14 Patient discharged home. Follow up with pcp in 2-3 days. Return with worsening symptoms. Verbalized dc instructions. Signed paper work. Davis [place] [address]-02-06 06:42:12 Bilateral lower abdominal pain on and off for month. Pain started this morning at 1230 and hasn't stopped. Saw by OB, US ordered pt unable to pay for it. Was instructed to got to ER if got worse. Vomited 3 time this am [facility] Maliha Paniagua [place] 113254-01-29 01:09:27 Pt given printed and verbal discharge [...] with steady gait, in no apparent distress. [facility] Cora Peraza [place] 113254-01-29 00:35:00 PO challenge completed. Patient tolerating water and crackers. [place] [id number] 00:06:08 Patient arrived ambulatory to ED c/o vomiting. Patient states vomiting up her dinner and then vomiting "bright red chunks." Diarrhea x a couple of days. No medications taken POLICE DEPARTMENT SECRETARY. Keen RNUT - [id number] 00:03:00 [facility] Emergency Department Note Patient Name: Mini Zhu Date of : 1990 32 year old female Treatment Room: Room/bed info not found Primary Care Physician: Rachelle Ackerman [facility] Patient Escorted by: Family [5] Mode of Arrival: Personal means [1] EMS Treatment Prior to ED Arrival: POLICE DEPARTMENT SECRETARY treatment: None Travel and Exposure Screening: Symptoms [...] goiter. Physical Exam: ED Triage Vitals [11/12/23 000] Weight 83.6 kg (184 lb 3.2 oz) [...] 200 mg capsule Comments: Reason for Stopping: irqyrhhtay-aipalbnusbqih-pktj 50-325-40 mg tablet Comments: Reason for Stopping: megestroL 40 mg tablet Comments: Reason for Stopping: tamsulosin 0.4 mg 24 hr capsule Comments: Reason for Stopping: ketorolac 10 mg tablet Comments: Reason for Stopping: Follow-up: Electronically signed by: Chayo Srivastava DO 11/12/23103 [facility]2024-01-13 20:56:44 Pt discharged home, given all education and information regarding s/s of worsening condition; prescription use; pain and fever management as well as the importance of follow up. Pt verbalized understanding. Alert and ambulatory to pov with family. [facility] 20[facility]24[facility]32 Pt arrived ambulatory with complaints of viral symptoms x2 days. Pt is positive and she took home test today and is positive too. Pt was concerned because her fever was 101 and her husbands only hit 100f. Pt has n/v but hasn't taken her Zofran. Peraza [facility]wwzc[facility]20-[facility]-20 06:48:38 Prescriptions provided Pt verbalized understanding of [...] with steady gait, in no apparent distress. [facility]28 Pt arrives ambulatory to ED c/o left sided lower abdominal pain. She reports that she came in last week and was found to have multiple gynecological issues and was given multiple prescriptions which she says has not helped her pain issue. LMP: 06/12/2023 Ashly Srivastava [facility]ulftv9188-96-74 05:14:00 [facility] Emergency Department Note Patient Name: Mini Zhu Date of : 1990 32 year old female Treatment Room: [place] [address] Primary Care Physician: Rachelle Ackerman [facility] Patient Escorted by: Family [5] Mode of Arrival: Personal means [1] EMS Treatment Prior to ED Arrival: POLICE DEPARTMENT SECRETARY treatment: None Travel and Exposure Screening: Symptoms [...] by: Patient, medical records and significant other translator/interpreter used: No Abdominal Pain Pain location: LLQ [...] (three) times daily as needed for Cough. TVFNNJVVKI-KFHJCKQVTFBZO-DCBK 50-325-40 MG TABLET Take 1 tablet by [...] follow-up Jaime Rebolledo MD Specialty: ORT-ORTHOPAEDIC SURGERY [address] [facility] [phone] Electronically signed by: Selene Parra MD 06/24/23632 [place] 575003-09-04 01:30:00 Awake, alert oriented X4, respiratory even [...] ambulated to the lobby with steady gait [place] [address]-09-03 23:50:11 C/O head congestion, chest congestion, body aches, sore throat since last Sunday, pt denies any fever. [facility] Kait Seay [place] [id number] 23:45:00 [facility] Emergency Department Note Patient Name: Mini Zhu Date of : 1990 32 year old female Treatment Room: Room/bed info not found Primary Care Physician: Rachelle Ackerman [facility] Patient Escorted by: Family [5] Mode of Arrival: Personal means [1] EMS Treatment Prior to ED Arrival: POLICE DEPARTMENT SECRETARY treatment: None Travel and Exposure Screening: Symptoms [...] clinic, negative x2. Recent encounters: 1. 06/11/23. [facility] ED. Pelvic pain. PID prophylaxis in ED. US Pelvis, fibroid, right ovarian cyst, notorsion, thickened endometrium 2. 06/11/23. RN PLASTIC SURGERY. After ED encounter. Previously scheduled appointment. Trichomonas. [...] taking these medications which have NOT CHANGED BXYIKFILKQ-GDKYQRWBADTPK-FIUI 50-325-40 MG TABLET Take 1 tablet by [...] Electronically signed by: Michelle Terry MD 06/18/23112 Critical [facility] hospital2023-08-29 04:46:51 Pt given printed and verbal discharge [...] no apparent distress, accompanied by her . [place] 575003-08-28 23:09:00 Patient states: "I've been having suprapubic pain for about a week now, worst was since . 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 I took Midol an hour ago for my painbut no relief." [facility] Yenny Blevins [place] 113253-08-28 23:06:00 [facility] ED Transfer of Care Note. [...] components within normal limits COMP. METABOLIC PANEL (72382) - Abnormal; Notable for the following components: [...] Severe endometrial thickening measuring 2.5 cm. AFC: 71578 RL: 460 End of report. Additional Notes: Diagnosis/Impression as of 06/12/23431 Pelvic pain Right ovarian cyst Intramural leiomyoma of uterus - (Uterine Fibroid) Endometrial hyperplasia Chronic anemia Medical Decision Making Mini Zhu is a 32 year old female whopresents to the ED with pelvic pain Problems Addressed: Chronic anemia: chronic illness or injury Endometrial hyperplasia: chronic illness or injury Details: Will need MARKETING REPORTING ANALYST follow-up Pt appropriately referred to OB-RN PLASTIC SURGERY Intramural leiomyoma of uterus: chronic illness or injury Details: Will need MARKETING REPORTING ANALYST follow-up Right ovarian cyst: chronic illness or [...] Chandra MD Specialty: OG-OBSTETRICS & GYNECOLOGY [facility] [address] [place] [address] DR. Mcneill [address] [place] [id number] Selene Parra MD 06/12/23431 [facility] - [id number] 04:02:21 Pt given printed and verbal discharge [...] with steady gait, in no apparent distress. [facility]2023[facility]08-14 01:27:07 Pt vomited approx 200ml of water and bile. No blood noted. [facility]2023-08-14 00:35:04 Pt arrived ambulatory with complaints of one episode of vomiting blood. Pt reports she became nauseated and at first threw up bile but then threw up dark red blood. Pt denies dark stools or excessiveNSAID use. Pt has been having intermittent abdominal pain for a week. Hx: Migraines, Bipolar, Anemia [facility] Cora Peraza [facility]
[2025-07-29] MEDS ORDERED: DIPHENHYDRAMINE 50 MG/ML VIAL ONE (08:08)
[2025-07-29] MEDS ORDERED: NA CHLORIDE 0.9% 1,000 ML ONE (08:08)
[2025-07-29] MEDS ORDERED: METOCLOPRAMIDE 10 MG/2mL INJ ONE (08:08)
[2025-07-29] MEDS ORDERED: KETOROLAC 30 MG/ML INJ ONE (08:08)
[2025-07-29 08:29] LABS: Absolute Lymphocytes (CBC) 2.1 K/uL (0.7-4.9); Hematocrit 30.2 % (36.0-45.0); Hemoglobin 9.4 g/dL (12.0-15.0); MCH 22.1 pg (27.0-35.0); MCHC 31.2 g/dL (32.0-36.0); MCV 70.8 fL (80-100); MPV 8.0 fL (7.6-11.3); Nucleated RBC Absolute Count 0.0 (0-0); Nucleated Red Blood Cells % 0.0 % (0-0); RBC Red Blood Cell Count 4.27 M/uL (3.86-4.86); White Blood Count 4.80 thou/uL (4.3-10.9)
[2025-07-29 08:36] LABS: Urine Microscopic Reflex YN NO UMIC
[2025-07-29 08:46] LABS: ALT/SGPT 37.0 U/L (13-56); AST/SGOT 16.0 U/L (15-37); Albumin 3.7 g/dL (3.4-5.0); Albumin/Globulin Ratio 1.1 (1.1-1.8); Alkaline Phosphatase 92.0 U/L (45-117); Anion Gap 11.9 mEq/L (5.0-15.0); BUN Blood Urea Nitrogen 9.0 mg/dL (7-18); Globulin 3.4 g/dL (2.3-3.5); Glucose Level 91.0 mg/dL (74-106); Potassium 3.9 mEq/L (3.5-5.1)
--- NOTE | 2025-07-29 10:58 | EDPHYS ---
Physician Documentation [facility] Renny Name: Judith Tobar Age: 34 yrs Sex: Female : 1990 Arrival Date: 07/29/2025 Time: 07:46 Bed 15 Private MD: HANNAH Physician Dick Angulo HPI: 07/29 10:41 This 34 yrs old Female presents to ER via Ambulatory with complaints of melita Headache. 10:41 The patient complains of pain to the top of head, forehead, left frontal area, left melita side of the back of head, right frontal area and right side of the back of head. The patient describes the headache as aching. Onset: The symptoms/episode began/occurred. Associated signs and symptoms: Pertinent positives: nausea. Severity of symptoms: At its worst the pain was moderate, in the emergency department the pain has improved, moderately. Headache History: The patient has had previous headaches and this one is similar to previous episodes. The symptoms are alleviated by quiet, remaining still, the symptoms are aggravated by lights, movement, noise, stress. The patient has experienced similar episodes in the past, multiple times. Historical: - Allergies: 07:50 BuSpar; ll1 07:50 GABAPENTIN; ll1 07:50 Imitrex; ll1 - PMHx: 07:50 Anemia; Anxiety; Bipolar disorder; Esophagitis (Unknown); gastritis (Unknown); ll1 insommnia; - PSHx: 07:50 breast surgery due to mastitis; tubal; ll1 - Immunization history:: Adult Immunizations up to date. - Social history:: Smoking status: Reported history of juuling and/or vaping. - Family history:: not pertinent. ROS: 10:41 Constitutional: Negative for fever, chills, and weight loss, Eyes: Negative for injury, melita pain, redness, and discharge, ENT: Negative for injury, pain, and discharge, Neck: Negative for injury, pain, and swelling, Cardiovascular: Negative for chest pain, palpitations, and edema, Respiratory: Negative for shortness of breath, cough, wheezing, and pleuritic chest pain, Abdomen/GI: Negative for abdominal pain, nausea, vomiting, diarrhea, and constipation, Back: Negative for injury and pain, : Negative for injury, bleeding, discharge, and swelling, MS/Extremity: Negative for injury and deformity, Skin: Negative for injury, rash, and discoloration, Psych: Negative for depression, anxiety, suicide ideation, homicidal ideation, and hallucinations, Allergy/Immunology: Negative for hives, rash, and allergies, Endocrine: Negative for neck swelling, polydipsia, polyuria, polyphagia, and marked weight changes, Hematologic/Lymphatic: Negative for swollen nodes, abnormal bleeding, and unusual bruising, 10:41 Neuro: Positive for headache, Exam: 10:41 Constitutional: This is a well developed, well nourished patient who is awake, alert, melita and in no acute distress. Head/Face: Normocephalic, atraumatic. Eyes: Pupils equal round and reactive to light, extra-ocular motions intact. Lids and lashes normal. Conjunctiva and sclera are non-icteric and not injected. Cornea within normal limits. Periorbital areas with no swelling, redness, or edema. ENT: Nares patent. No nasal discharge, no septal abnormalities noted. Tympanic membranes are normal and external auditory canals are clear. Oropharynx with no redness, swelling, or masses, exudates, or evidence of obstruction, uvula midline. Mucous membranes moist. Neck: Trachea midline, no thyromegaly or masses palpated, and no cervical lymphadenopathy. Supple, full range of motion without nuchal rigidity, or vertebral point tenderness. No Meningismus. Chest/axilla: Normal chest wall appearance and motion. Nontender with no deformity. No lesions are appreciated. Cardiovascular: Regular rate and rhythm with a normal S1 and S2. No gallops, murmurs, or rubs. Normal PMI, no JVD. No pulse deficits. Respiratory: Lungs have equal breath sounds bilaterally, clear to auscultation and percussion. No rales, rhonchi or wheezes noted. No increased work of breathing, no retractions or nasal flaring. Abdomen/GI: Soft, non-tender, with normal bowel sounds. No distension or tympany. No guarding or rebound. No evidence of tenderness throughout. Back: No spinal tenderness. No costovertebral tenderness. Full range of motion. Skin: Warm, dry with normal turgor. Normal color with no rashes, no lesions, and no evidence of cellulitis. MS/ Extremity: Pulses equal, no cyanosis. Neurovascular intact. Full, normal range of motion., bilateral aka Neuro: Awake and alert, GCS 15, oriented to person, place, time, and situation. Cranial nerves II-XII grossly intact. Motor strength 5/5 in all extremities. Sensory grossly intact. Cerebellar exam normal. Normal gait. Psych: Awake, alert, with orientation to person, place and time. Behavior, mood, and affect are within normal limits. 10:41 Neck: C-spine: appears grossly normal, no acute changes, Thyroid: appears normal, no acute changes, Trachea: is midline with no obvious abnormalities, ROM/movement: is normal, no acute changes, Lymph nodes: no appreciated lymphadenopathy, 10:56 ECG was reviewed by the Attending Physician. [facility] Vital Signs: 07:55 BP 114 / 81; Pulse 86; Resp 16; Temp 99.3; Pulse Ox 100% on R/A; Weight 77.11 kg; ll1 Height 5 ft. 2 in. ; Pain 10/10; 08:38 BP 120 / 77; Pulse 85; Resp 16; Pulse Ox 100% ; bp 09:40 BP 103 / 87; Pulse 79; Resp 16; Pulse Ox 100% ; bp 10:49 BP 107 / 75; Pulse 77; Resp 16; Pulse Ox 100% ; bp 07:55 Body Mass Index 31.09 (77.11 kg, 157.48 cm) ll1 07:55 Pain Scale: Adult ll1 Manolo Coma Score: 10:55 Eye Response: spontaneous(4). Motor Response: obeys commands(6). Verbal Response: melita oriented(5). Total: 15. MDM: 07:50 Medical Screening Exam initiated melita 10:55 Differential diagnosis: hypoglycemia, hyponatremia, migraine, temporal arteritis, melita tension headache, trigeminal neuralgia, vasomotor headache. Data reviewed: vital signs, nurses notes, lab test result(s). Consideration of Admission/Observation Escalation of care including admission/observation considered. I considered the following discharge prescriptions or medication management in the emergency department Medications were administered in the Emergency Department. See DEC. 07/29 07:52 Order name: CBC with Diff; Complete Time: 10:19 [facility] 07/29 07:52 Order name: CMP; Complete Time: 10:19 [facility] 07/29 07:52 Order name: UA Rfx Bin Cult if indicated; Complete Time: 10:19 [facility] 07/29 07:52 Order name: PREGU; Complete Time: 10:19 [facility] 07/29 07:52 Order name: Oxygen: 2 lit; Complete Time: 08:36 melita 07/29 08:30 Order name: EKG - Nurse/Tech; Complete Time: 08:32 bp EC:56 Rate is 72 beats/min. Rhythm is regular. QRS [place] is Normal. MN interval is normal. QRS melita interval is normal. QT interval is normal. No Q waves. T waves are Normal. No ST changes noted. Clinical impression: NSR w/ Non-specific ST/T Changes and No evidence of ischemia. Interpreted by me. Reviewed by me. Administered Medications: 08:20 Drug: NS 0.9% IV 1000 ml IV at 1 bolus Per protocol; to be given as a bolus over 60 bp minutes Route: IV; Rate: 1 bolus; Site: right antecubital; 11:32 Follow up: IV Status: Completed infusion bp 08:20 Drug: Ketorolac IVP 30 mg IVP once Route: IVP; Site: right antecubital; bp 11:32 Follow up: Response: No adverse reaction bp 08:20 Drug: diphenhydrAMINE IVP 50 mg IVP once Route: IVP; Site: right antecubital; bp 11:32 Follow up: Response: No adverse reaction bp 08:20 Drug: metoCLOPramide IVP 10 mg IVP once; over 1 to 2 minutes Route: IVP; Site: right bp antecubital; 11:32 Follow up: Response: No adverse reaction bp Disposition Summary: 07/29/25 10:57 Discharge Ordered Notes: Location: Home melita Problem: new melita Symptoms: have improved melita Condition: Stable melita Diagnosis - Headache melita Followup: melita - With: Private Physician - When: 2 - 3 days - Reason: Recheck today's complaints, Continuance of care, Re-evaluation by your physician Followup: melita - With: Jose Wray MD - When: 2 - 3 days - Reason: Recheck today's complaints, Re-evaluation by your physician Discharge Instructions: - Discharge Summary Sheet melita - General Headache Without Cause melita - Migraine Headache melita - Migraine Headache, Joid-ag-Adpn melita - General Headache Without Cause, Ommu-mx-Nzhu melita Forms: - Medication Reconciliation Form melita - Antibiotic Education melita - Prescription Opioid Use melita - Patient Portal Instructions melita - Leadership Thank You Letter [facility] Prescriptions: - Ibuprofen 600 mg Oral Tablet - take 1 tablet ORAL route every 6 hours As needed take with food; 30 tablet; melita Refills: 0, Product Selection Permitted - Zofran 4 mg Oral Tablet - take 1 tablet ORAL route every 12 hours As needed; 20 tablet; Refills: 0, melita Product Selection Permitted Signatures: Dispatcher [employer] Dick Horton MD MD cha Peltier, Brian, RN RN bp Maria M Sanchez RN RN ll1
--- NOTE | 2025-07-29 10:58 | ER ---
Nurse's Notes [facility] Tori Name: Judith Tobar Age: 34 yrs Sex: Female : 1990 Arrival Date: 07/29/2025 Time: 07:46 Bed 15 Private MD: Diagnosis: Headache Presentation: 07/29 07:55 Chief complaint: Patient states: NAVARRO for 5 days. No N/V or fever. Coronavirus screen: ll1 Client denies travel out of the [place] in the last 14 days. At this time, the client does not indicate any symptoms associated with coronavirus-19. Ebola Screen: Patient denies travel to an Ebola-affected area in the 21 days before illness onset. Initial Sepsis Screen: Does the patient meet any 2 criteria? No. Patient's initial sepsis screen is negative. Does the patient have a suspected source of infection? No. Patient's initial sepsis screen is negative. Risk Assessment: Do you want to hurt yourself or someone else? Patient reports no desire to harm self or others. Onset of symptoms was July 25, 2025. 07:55 Method Of Arrival: Ambulatory [facility] 07:55 Acuity: SHABBIR 3 ll1 Triage Assessment: 07:50 Headache History: The patient has had previous headaches and this one is similar to bp previous episodes. General: Appears in no apparent distress. Behavior is cooperative, appropriate for age, anxious. Pain: Complains of pain in head Pain currently is 5 out of 10 on a pain scale. Pain began suddenly, Also complains of no other associated symptoms. EENT: No deficits noted. Neuro: Reports headache. Cardiovascular: No deficits noted. Respiratory: No deficits noted. GI: No signs and/or symptoms were reported involving the gastrointestinal system. : No signs and/or symptoms were reported regarding the genitourinary system. Derm: No deficits noted. Musculoskeletal: No deficits noted. Historical: - Allergies: 07:50 BuSpar; ll1 07:50 GABAPENTIN; ll1 07:50 Imitrex; ll1 - PMHx: 07:50 Anemia; Anxiety; Bipolar disorder; Esophagitis (Unknown); gastritis (Unknown); ll1 insommnia; - PSHx: 07:50 breast surgery due to mastitis; tubal; ll1 - Immunization history:: Adult Immunizations up to date. - Social history:: Smoking status: Reported history of juuling and/or vaping. - Family history:: not pertinent. Screenin:00 [facility] ED Fall Risk Assessment (Adult) History of falling in the last 3 months, bp including since admission No falls in past 3 months (0 pts) Confusion or Disorientation No (0 pts) Intoxicated or Sedated No (0 pts) Impaired Gait No (0 pts) Mobility Assist Device Used No (0 pt) Altered Elimination No (0 pt) Score/Fall Risk Level 0 - 2 = Low Risk Oriented to surroundings. Abuse screen: Denies threats or abuse. Denies injuries from another. Nutritional screening: No deficits noted. Tuberculosis screening: No symptoms or risk factors identified. Assessment: 07:50 General: SEE TRIAGE NOTE. bp 09:40 Reassessment: Patient appears in no apparent distress at this time. Patient is alert, bp oriented x 3, equal unlabored respirations, skin warm/dry/pink. Patient states symptoms have improved. 10:49 Reassessment: Patient appears in no apparent distress at this time. Patient is alert, bp oriented x 3, equal unlabored respirations, skin warm/dry/pink. Vital Signs: 07:55 BP 114 / 81; Pulse 86; Resp 16; Temp 99.3; Pulse Ox 100% on R/A; Weight 77.11 kg; ll1 Height 5 ft. 2 in. ; Pain 10/10; 08:38 BP 120 / 77; Pulse 85; Resp 16; Pulse Ox 100% ; bp 09:40 BP 103 / 87; Pulse 79; Resp 16; Pulse Ox 100% ; bp 10:49 BP 107 / 75; Pulse 77; Resp 16; Pulse Ox 100% ; bp 07:55 Body Mass Index 31.09 (77.11 kg, 157.48 cm) ll1 07:55 Pain Scale: Adult ll1 Manolo Coma Score: 10:55 Eye Response: spontaneous(4). Motor Response: obeys commands(6). Verbal Response: melita oriented(5). Total: 15. ED Course: 07:49 Patient arrived in ED. im 07:50 Dick Angulo MD is Attending Physician. melita 07:50 Arm band placed on Patient placed in an exam room, on a stretcher. ll1 07:52 Butch Chacko RN is Primary Nurse. bp 07:56 Triage completed. ll1 08:00 Patient has correct armband on for positive identification. bp 08:20 Initial lab(s) drawn, by me, sent to lab. Urine collected: clean catch specimen, clear. bp Inserted saline lock: 20 gauge in right antecubital area, using aseptic technique. Blood collected. Flushed with 10 mL NS. 10:56 Jose Wray MD is Referral Physician. melita 11:33 No provider procedures requiring assistance completed. IV discontinued, intact, bp bleeding controlled, No redness/swelling at site. Pressure dressing applied. Administered Medications: 08:20 Drug: NS 0.9% IV 1000 ml IV at 1 bolus Per protocol; to be given as a bolus over 60 bp minutes Route: IV; Rate: 1 bolus; Site: right antecubital; 11:32 Follow up: IV Status: Completed infusion bp 08:20 Drug: Ketorolac IVP 30 mg IVP once Route: IVP; Site: right antecubital; bp 11:32 Follow up: Response: No adverse reaction bp 08:20 Drug: diphenhydrAMINE IVP 50 mg IVP once Route: IVP; Site: right antecubital; bp 11:32 Follow up: Response: No adverse reaction bp 08:20 Drug: metoCLOPramide IVP 10 mg IVP once; over 1 to 2 minutes Route: IVP; Site: right bp antecubital; 11:32 Follow up: Response: No adverse reaction bp Outcome: 10:57 Discharge ordered by . melita 11:33 Discharged to home ambulatory, bp 11:33 Condition: stable 11:33 Discharge instructions given to patient, Instructed on discharge instructions, follow up and referral plans. medication usage, Demonstrated understanding of instructions, follow-up care, medications, Prescriptions given X 2, 11:33 Patient left the ED. bp Signatures: Dick Angulo MD MD cha Peltier, Brian, RN RN Maria M Lamb RN RN ll1 Stephanie Duckworth
[2025-07-29 11:52] VITALS: TEMP 99.3; O2SAT 100
[2025-07-29 12:05] VITALS: BP 107/75
== END 2025-07-29 11:33 | disposition home or self-care (01) ==
LOC: ER 07:46
DX: R51.9 Headache, unspecified (principal)
CPT/HCPCS: 36415; 80053; 81003; 81025; 85025; 93005; 96361; 96374; 96375; 99284; J1200; J1885; J2765; J7030